=== PATIENT | male | born 1965 | race Caucasian/White ===

== ENCOUNTER 2017-03-06 15:01 | Emergency (ER) | payer OTHER ==
[~2017-03-06] VITALS: Ht 185.4 cm; Wt 117.0 kg
[~2017-03-06 15:01] MED LIST: ADVIL200 M1 PO; ALBUTEROL2.5 MG/3 M INH; ASPIR-TRIN325 MG PO; BACTRIM DS TAB1 EACH PO; BD ULTRA-FINE1 EAC3 MISC; BUDESONIDE0.5 MG/2 M INH; CARBAMAZEPINE200 M2 PO; CYCLOBENZAPRINE10 MG PO; DOXAZOSIN MESYLA4 MG PO; ESCITALOPRAM OX20 MG PO; FUROSEMIDE20 MG PO; HYDROCHLOROTHIA25 MG PO; LANTUS SOL100 UNIT/1 SUB-Q; LEVOTHYROXINE25 MCG PO; LORAZEPAM2 MG PO; LOSARTAN POTASS50 MG PO; METFORMIN HCL1000 MG PO; MINIPRESS5 MG PO; MUPIROCIN22 GM TOP; OMEPRAZOLE20 MG PO; PROMETHAZINE HC25 M1 PO; PROPRANOLOL HCL40 MG PO; TOPIRAMATE25 MG PO; VENTOLIN HFA18 GM INH; ZOFRAN ODT4 MG SL
[2017-03-06] MEDS ORDERED: METHYLPREDNISOLO4 M1 PO (16:24)
[2017-03-06] MEDS ORDERED: ZITHROMAX250 MG PO (16:24)
== END 2017-03-06 17:12 | disposition home or self-care (01) ==
LOC: ED 15:01
DX: J44.1 Chronic obstructive pulmonary disease with (acute) exacerbation (principal); E11.40 Type 2 diabetes mellitus with diabetic neuropathy, unspecified; E03.9 Hypothyroidism, unspecified; G40.909 Epilepsy, unspecified, not intractable, without status epilepticus; K21.9 Gastro-esophageal reflux disease without esophagitis; J45.901 Unspecified asthma with (acute) exacerbation; I10 Essential (primary) hypertension; Z87.891 Personal history of nicotine dependence; Z88.0 Allergy status to penicillin; Z88.5 Allergy status to narcotic agent; Z79.899 Other long term (current) drug therapy; Z79.4 Long term (current) use of insulin
CPT/HCPCS: 71010; 80048; 85025; 94640; 96374; 96375; 99283; J2060; J2930

== ENCOUNTER 2019-04-25 08:25 | Emergency (ER) | payer OTHER ==
[~2019-04-25] VITALS: Ht 185.4 cm; Wt 111.1 kg
--- OUTSIDE RECORDS SUMMARY | ~2019-04-25 | XMS | Encounter Summary ---
Demographics + + + | Address | [address] | | | [place] [address] | + + + | Home Phone | | + + + | Preferred Language | Unknown | + + + | Marital Status | Single | + + + | Amish Affiliation | BAP | + + + | Race | White | + + + | Ethnic Group | Not or | + + + Author + + + | Author | [facility] | + + + | Organization | [facility] | + + + | Address | Unknown | + + + | Phone | Unavailable | + + + Support + + + + + | Name | Relationship | Address | Phone | + + + + + | Margarito Owusu | ECON | [address] | | | | | [place] | | | | | [address] | | + + + + + Care Team Providers + +------+ + | Care Gold Leaf Gilder Name | Role | Phone | + +------+ + | Deidre Card | PCP | | + +------+ + Encounter Details +--------+ + + + + | Date | Type | Department | Care Team | Description | +--------+ + + + + | 02/28/ | Office | [facility] | Note, Outpatient | Progress Note | | 2001 | Visit-Trans | MEDICINE | Clinic | | | | cribed | | | | +--------+ + + + + Social History + +-------+ +--------+------+ | Tobacco Use | Types | Packs/Day | Years | Date | | | | | Used | | + +-------+ +--------+------+ | Never Assessed | | | | | + +-------+ +--------+------+ + + + | Sex Assigned at | Date Recorded | | | | + + + | Not on file | | + + + + + + + | Job Start Date | Occupation | Industry | + + + + | Not on file | Not on file | Not on file | + + + + + + + + | Travel History | Travel Start | Travel End | + + + + + + | No recent travel history available. | + + documented as of this encounter Progress Notes Interface, Newspaper Clipper In - 03/17/2006 1:00 AM PDTCLINIC DATE: 02/27/2002 PRECOCHLEAR IMPLANT EVALUATION SUBJECTIVE: Mr. Edgar Marquez was seen today for a precochlear implant evaluation. He was accompanied today by his mother. He was referred to us from Dr. Aamir Chan. Mr. 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 He has been unable to wear hearing aids due to the persistent otitis media with drainage bilaterally. The combination of the chronic otitis media and cholesteatomas have gradually eroded Mr. Marquez's hearing. Today's audiogram demonstrates no response in either ear at the output limits of the equipment. To assess Mr. Dorados candidacy for the cochlear implant, the HINT (hearing and noise test) was administered in the left ear only, right ear only, and binaural condition aided at 70 dB SPL. Mr. Marquez scored 0% in all conditions. These results indicate no residual hearing in either ear. Today's results do suggest that Mr. Marquez could benefit from a cochlear implant. Mr. Marquez and his mother, Vale Montano, were counseled regarding today's result and the devices available through [facility]. Mr. Marquez's medical evaluation is currently pending with Dr. Chan. Either ear meets candidacy criteria for the implant. Mr. Marquez was then given some information to take home regarding the devices and also the names of some cochlear implant recipients he may want to contact for further information. Mary Baker M.S., C.C.-A. Aamir Chan M.D. [place] / [id number] / [id number] / [id number] / [id number] Carleen, Newspaper Clipper In - 03/17/2006 1:00 AM PDTCLINIC DATE: 02/28/2002 OTOLARYNGOLOGY CLINIC Mr. Marquez is seen in followup following surgery for removal of cholesteatoma in the right ear. He is now a candidate for cochlear implant on the left ear. His right ear is still slightly moist; however, it was suctioned clean. There is no severe drainage. The left ear appears to be normal, and he is an excellent candidate for a cochlear implant. He is to be scheduled for this procedure. His CT appears to be normal. Aamir Chan M.D. [facility] / [id number] / [id number] / [id number] / Tdocumented in this encounter Plan of Treatment +--------+ + + + + | Date | Type | Specialty | Care Team | Description | +--------+ + + + + | 04/29/ | Diagnostic | Nut Steamer | Marce Meyer | | | 2019 | Visit | | Finn, Eve [address] | | | | | | [address] | | | | | | [place], [place] | | | | | | [address] | | +--------+ + + + + documented as of this encounter Visit Diagnoses Not on filedocumented in this encounter"
--- OUTSIDE RECORDS SUMMARY | ~2019-04-25 | XMS | Encounter Summary ---
Demographics + + + | Address | [address] | | | [place] [address] | + + + | Home Phone | | + + + | Preferred Language | Unknown | + + + | Marital Status | Single | + + + | Catholic Affiliation | BAP | + + + | Race | White | + + + | Ethnic Group | Not or | + + + Author + + + | Author | [facility] | + + + | Organization | [facility] | + + + | Address | Unknown | + + + | Phone | Unavailable | + + + Support + + + + + | Name | Relationship | Address | Phone | + + + + + | Margarito Owusu | ECON | [address] | | | | | [place] | | | | | [address] | | + + + + + Care Team Providers + +------+ + | Care Timber Mill Worker Name | Role | Phone | + +------+ + | Maurice Zelaya MD | PCP | | + +------+ + Encounter Details +--------+ + + + + | Date | Type | Department | Care Team | Description | +--------+ + + + + | 11/22/ | Ancillary | Registration [id number] | Dustin | | | 2004 | Registratio | [address] | Aamir [address] | | | | [address] | [address] Mailcode: [id number] | [address] | | | | | [place], [place] | [place] [address] | | | | | [address] | | | | | | [phone] | | | +--------+ + + + [...] + + documented as of this encounter Plan of Treatment +--------+ + + + + | Date | Type | Specialty | Care Team | Description | +--------+ + + + + | 04/29/ | Diagnostic | Fish Fryer | Marce Meyer | | | 2019 | Visit | | Eve Briseno [address] | | | | | | [address] | | | | | | [place], [place] | | | | | | [address] | | +--------+ + + + + documented as of this encounter Visit Diagnoses Not on filedocumented in this encounter"
--- OUTSIDE RECORDS SUMMARY | ~2019-04-25 | XMS | Encounter Summary ---
Demographics + + + | Address | [address] | | | [place] [address] | + + + | Home Phone | | + + + | Preferred Language | Unknown | + + + | Marital Status | Single | + + + | Mandaeism Affiliation | BAP | + + + | Race | White | + + + | Ethnic Group | Not or | + + + Author + + + | Author | [facility] | + + + | Organization | [facility] | + + + | Address | Unknown | + + + | Phone | Unavailable | + + + Support + + + + + | Name | Relationship | Address | Phone | + + + + + | Margarito Owusu | ECON | [address] | | | | | [place] | | | | | [address] | | + + + + + Care Team Providers + +------+ + | Care Parts Counterman Name | Role | Phone | + +------+ + | Jaison Chávez MD | PCP | | + +------+ + Encounter Details +--------+ + + + + | Date | Type | Department | Care Team | Description | +--------+ + + + + | 08/09/ | Results | NON-[facility] | Ashley Omalley MD | | | 2008 | Only | Department | Tonya Walker | | | | | | [facility] [address] | | | | | | [address] | | | | | | [place] [address] | | | | | | [phone] | | | | | | | | +--------+ + + + + Social History + + + +--------+------+ | Tobacco Use | Types | Packs/Day | Years | Date | | | | | Used | | + + + +--------+------+ | Current Every Day | Cigarettes | 2.5 | 34 | | | Smoker | | | | | + + + +--------+------+ + + | Comments: Pt smokes 2.5 packs of cigarettes per day x 2-3 years. Started smoking at age | | 8. | + + + + + + + | Alcohol Use | Drinks/Week | oz/Week | Comments | + + + + + | Yes | 1-2 Standard | 0.5 - 1.0 | Pt buys case of beer | | | drinks or equivalent | | with paycheck at | | | | | start of | | | | | month--drinks that | | | | | and none for rest of | | | | | month | + + + + + + + + | Sex Assigned at [...] + + | 04/29/ | Diagnostic | Car Shunter | Marce Meyer | | | 2019 | Visit | | Eve Briseno [address] | | | | | | [address] | | | | | | [place], [place] | | | | | | [address] | | +--------+ + + + + documented as of this encounter Procedures + +--------+ + + + | Procedure Name | Priori | Date/Time | Associated Diagnosis | Comments | | | ty | | | | + +--------+ + + + | CAMILLE CERVANTESPOC | Routin | 08/09/2008 | | Results for this | | | e | 11:50 AM | | procedure are in the | | | | PST | | results section. | + +--------+ + + + documented in this encounter Results CAMILLE CERVANTESPOC (08/09/2008 11:50 AM PST) + + + + + -+ | Component | Value | Ref Range | Performed | Pathologist | | | | | At | Signature | + + + + + -+ | BLOOD | 226 (H)Comment: Meter | 70 - 110 MG/DL | [facility] | | | GLUCOSE, | ID: [id number]: | | OF CARE | | | POC | [id number] [place] | | TESTING | | | |Extracorporeal Circulation Specialist: [id number] [place] | | | | | | | | | | + + + + + -+ + + | Specimen | + + | | + + + +---------+ + + | Performing | Address | City/State/Zipcode | Phone Number | | Organization | | | | + +---------+ + + | [facility] | | | | | TESTING | | | | + +---------+ + + documented in this encounter Visit Diagnoses Not on filedocumented in this encounter"
--- OUTSIDE RECORDS SUMMARY | ~2019-04-25 | XMS | Encounter Summary ---
Demographics + + + | Address | [address] | | | [place] [address] | + + + | Home Phone | | + + + | Preferred Language | Unknown | + + + | Marital Status | Single | + + + | Yarsanism Affiliation | BAP | + + + | Race | White | + + + | Ethnic Group | Not or | + + + Author + + + | Author | [facility] | + + + | Organization | [facility] | + + + | Address | Unknown | + + + | Phone | Unavailable | + + + Support + + + + + | Name | Relationship | Address | Phone | + + + + + | Margarito Owusu | ECON | [address] | | | | | [place] | | | | | [address] | | + + + + + Care Team Providers + +------+ + | Care Insurance Claims Processor Name | Role | Phone | + +------+ + | Jaison Chávez MD | PCP | | + +------+ + Encounter Details +--------+ + + + + | Date | Type | Department | Care Team | Description | +--------+ + + + + | 09/13/ | Documentati | Otolaryngology | Mahnaz Chávez, | | | 2015 | on | Audiology Services | [facility] [address] | | | | | at [facility] [address] | [address] | | | | | [address] | [place], [place] | | | | | Mailcode: PV01 | [address] | | | | | [facility] | | | | | | [place], [place] | | | | | | [address] | | | | | | [phone] | | | +--------+ + + + + Social History + + + +--------+ + | Tobacco Use | Types | Packs/Day | Years | Date | | | | | Used | | + + + +--------+ + | Former Smoker | Cigarettes | 3 | 20 | Quit: 06/13/2013 | + + + +--------+ + + +---+---+---+ | Smokeless Tobacco: | | | | | Never Used | | | | + +---+---+---+ + + + + + | Alcohol [...] + + | 04/29/ | Diagnostic | Shower Screen Installer | Marce Meyer | | | 2018 | Visit | | Eve Briseno [address] | | | | | | [address] | | | | | | [place], [place] | | | | | | [address] | | +--------+ + + + + documented as of this encounter Visit Diagnoses Not on filedocumented in this encounter"
--- OUTSIDE RECORDS SUMMARY | ~2019-04-25 | XMS | Encounter Summary ---
Demographics + + + | Address | [address] | | | [place] [address] | + + + | Home Phone | | + + + | Preferred Language | Unknown | + + + | Marital Status | Single | + + + | Sabianist Affiliation | BAP | + + + | Race | White | + + + | Ethnic Group | Not or | + + + Author + + + | Author | [facility] | + + + | Organization | [facility] | + + + | Address | Unknown | + + + | Phone | Unavailable | + + + Support + + + + + | Name | Relationship | Address | Phone | + + + + + | Margarito Owusu | ECON | [address] | | | | | [place] | | | | | [address] | | + + + + + Care Team Providers + +------+ + | Care Senior Pastor Name | Role | Phone | + +------+ + | Ender Wagoner MD | PCP | | + +------+ + Reason for Visit + + + | Reason | Comments | + + + | Hearing loss | Processor Mapped by Sruthi & Grisel back to patient | + + + Encounter Details +--------+ + + + + | Date | Type | Department | Care Team | Description | +--------+ + + + + | 07/01/ | Documentati | Otolaryngology | Pascual Pace, | Hearing loss | | 2010 | on | Cochlear Services | STEPHANIE Sewell [address] | (Processor Mapped by | | | | [address] | [address] | Sruthi & Shipped back | | | | Toya Spencer Mailcode: | [place], [place] | to patient) | | | | [address] [facility] | [address] | | | | | [address] | | | | | | [place] [address] | | | | | | [phone] | | | +--------+ + + + + Social History + + + +--------+------+ | Tobacco Use | Types | Packs/Day | Years | Date | | | | | Used | | + + + +--------+------+ | Current Every Day | Cigarettes | 3 | 20 | | | Smoker | | | | | + + + +--------+------+ + +---+---+---+ | Smokeless Tobacco: | | | | | Never Used | | | | + +---+---+---+ + + | Comments: Pt smokes 3 packs of cigarettes per day x 20 years. Started smoking at age 8. | + + + + + [...] + + | 04/29/ | Diagnostic | Customer Management Specialist | Marce Meyer | | | 2019 | Visit | | Finn, Eve [address] | | | | | | [address] | | | | | | [place], [place] | | | | | | [address] | | +--------+ + + + + documented as of this encounter Visit Diagnoses Not on filedocumented in this encounter"
--- OUTSIDE RECORDS SUMMARY | ~2019-04-25 | XMS | Encounter Summary ---
Demographics + + + | Address | [address] | | | [place] [address] | + + + | Home Phone | | + + + | Preferred Language | Unknown | + + + | Marital Status | Single | + + + | Advent Affiliation | BAP | + + + | Race | White | + + + | Ethnic Group | Not or | + + + Author + + + | Author | [facility] | + + + | Organization | [facility] | + + + | Address | Unknown | + + + | Phone | Unavailable | + + + Support + + + + + | Name | Relationship | Address | Phone | + + + + + | Margarito Owusu | ECON | [address] | | | | | [place] | | | | | [address] | | + + + + + Care Team Providers + +------+ + | Care Classified Ad Taker Name | Role | Phone | + +------+ + PCP | Unavailable | + +------+ + Encounter Details +--------+ + + + + | Date | Type | Department | Care Team | Description | +--------+ + + + + | 04/08/ | Results | Otolaryngology | Dustin, | | | 2003 | Only | Otology Services at | Aamir [address] | | | | | [facility] [address] | [address] | | | | | [address] | [place] [address] | | | | | Mailcode: PV01 | | | | | | [facility] | | | | | | [place], [place] | | | | | | [address] | | | | | | [phone] | | | +--------+ + + + [...] + + | 04/29/ | Diagnostic | Rubber Engraver | Marce Meyer | | | 2019 | Visit | | Eve Briseno [address] | | | | | | [address] | | | | | | [place], [place] | | | | | | [address] | | +--------+ + + + + documented as of this encounter Procedures + +--------+ + + + | Procedure Name | Priori | Date/Time | Associated Diagnosis | Comments | | | ty | | | | + +--------+ + + + | CBC ONLY | Routin | 04/08/2004 | | Results for this | | | e | 4:30 PM | | procedure are in the | | | | PDT | | results section. | + +--------+ + + + documented in this encounter Results CBC ONLY WITH PLATELET (04/08/2004 4:30 PM PDT) + + + + + + | Component | Value | Ref Range | Performed | Pathologist | | | | | At | Signature | + + + + + + | WHITE CELL | 15.0 (H) | 4.4 - 11.0 K/cu | [facility] | | | COUNT | | mm | DEPARTMENT | | | | | | OF | | | | | | PATHOLOGY | | + + + + + + | RED CELL | 5.27 | 4.20 - 5.90 | [facility] | | | COUNT | | M/cu mm | DEPARTMENT | | | | | | OF | | | | | | PATHOLOGY | | + + + + + + | HEMOGLOBIN | 17.0 | 13.0 - 17.5 | [facility] | | | | | g/dL | DEPARTMENT | | | | | | OF | | | | | | PATHOLOGY | | + + + + + + | HEMATOCRIT | 48.6 | 38.0 - 50.4 % | [facility] | | | | | | DEPARTMENT | | | | | | OF | | | | | | PATHOLOGY | | + + + + + + | MCV | 92.1 | 80.0 - 96.0 fL | [facility] | | | | | | DEPARTMENT | | | | | | OF | | | | | | PATHOLOGY | | + + + + + + | MCH | 32.2 | 28.5 - 32.3 pg | [facility] | | | | | | DEPARTMENT | | | | | | OF | | | | | | PATHOLOGY | | + + + + + + | MCHC | 35.0 | 33.4 - 35.5 | [facility] | | | | | g/dL | DEPARTMENT | | | | | | OF | | | | | | PATHOLOGY | | + + + + + + | RDW | 14.0 | 11.5 - 15.0 % | [facility] | | | | | | DEPARTMENT | | | | | | OF | | | | | | PATHOLOGY | | + + + + + + | PLATELET | 227 | 150 - 400 K/cu | [facility] | | | COUNT | | mm | DEPARTMENT | | | | | | OF | | | | | | PATHOLOGY | | + + + + + + | MPV | 7.8 | 7.4 - 10.4 fL | [facility] | | | | | | DEPARTMENT | | | | | | OF | | | | | | PATHOLOGY | | + + + + + + + + | Specimen | + + | | + + + + + + + | Performing | Address | City/State/Zipcode | Phone Number | | Organization | | | | + + + + + | [facility] DEPARTMENT OF | [address] | [place] [address] | | | PATHOLOGY | [address] | | | + + + + + | [facility] | [address] | [place] [address] | | | PATHOLOGY | [address] | | | + + + + + documented in this encounter Visit Diagnoses Not on filedocumented in this encounter"
--- OUTSIDE RECORDS SUMMARY | ~2019-04-25 | XMS | Encounter Summary ---
Demographics + + + | Address | [address] | | | [place] [address] | + + + | Home Phone | | + + + | Preferred Language | Unknown | + + + | Marital Status | Single | + + + | Samaritan Affiliation | BAP | + + + | Race | White | + + + | Ethnic Group | Not or | + + + Author + + + | Author | [facility] | + + + | Organization | [facility] | + + + | Address | Unknown | + + + | Phone | Unavailable | + + + Support + + + + + | Name | Relationship | Address | Phone | + + + + + | Margarito Owusu | ECON | [address] | | | | | [place] | | | | | [address] | | + + + + + Care Team Providers + +------+ + | Care Astro Technician Name | Role | Phone | + +------+ + | Sergo Leigh MD | PCP | Unavailable | + +------+ + Reason for Visit + + + | Reason | Comments | + + + | Ear problem | here for ear check and CT results | + + + AUTH/CERT +--------+--------+ + + + + | Status | Reason | Specialty | Diagnoses / | Referred By | Referred To | | | | | Procedures | Contact | Contact | +--------+--------+ + + + + | Closed | | Adult Acute | | | [facility] | | | | Care | | | Medicine | | | | | | | [address] | | | | | | | [address] | | | | | | | [address] [facility] | | | | | | | Hospital | | | | | | | [place], [place] | | | | | | | [address] | | | | | | | Phone: | | | | | | | [phone] | | | | | | | Fax: | | | | | | | [phone] | +--------+--------+ + + + + Encounter Details +--------+---------+ + + + | Date | Type | Department | Care Team | Description | +--------+---------+ + + + | 12/03/ | Office | Otolaryngology | Jose Franco, | Other acute otitis | | 2010 | Visit | Otology Services at | MD [address] | externa; Other | | | | [facility] [address] | [facility] [address] | chronic otitis | | | | [address] | [place] [address] | externa | | | | Mailcode: CHALO | [phone] | | | | | Physiciankary Perez | (Fax) | | | | | [place], [place] | | | | | | [address] | | | | | | [phone] | | | +--------+---------+ + + + Social History + + [...] | drinks or equivalent | | with madelyn at | | | | | start [...] documented as of this encounter Progress Notes Jose Franco MD - 12/03/2010 3:55 PM PDTOtology Follow Up ID: Edgar Marquez returns for follow up of bilateral otitis externa S: Mr Marquez has been feeling much worse since he was last seen in clinic. He did obtain the prescribed cyloxan and dexamethasone drops He started these, but after 24 hours develo ped significant nausea and vomiting and discontinued the drops. He has continued to have bi lateral foul smelling ear drainage, along with nausea, vomiting, and subjective fevers. He has not been taking any medications recently. Not tolerating PO intake, states he is also h aving difficulty urinating. O: A&OX3, appears quite sick, nauseated and retching. No depression or agitation, speech fluent, zoltan, no nystagmus Face: no lesions Neck: no nodes Parotid thyroid wnl Oc op : no lesions Resp wheezing and moderately tachypneic Neuro non focal , mtr/sensory non focal Ears: Left CI in place Examined by otomicroscopy: Left: EAC with purulent, foul-smelling drainage.. TM with intact landmarks, no perforati on Right: EAC with purulent, foul-smelling drainage.. TM with intact landmarks, no perforat ion Axial images were obtained through the temporal bones and coronal reconstructions were created and compared to the CT obtained 02/28/02. Since the prior study, the patient has undergone a left canal wall up mastoidectomy and placement of a cochlear implant. The electrode coils in the mastoidectomy bowl and extends to a cochleostomy in the basal turn of the cochlea almost to the apical turn. The mastoid air cells and middle ear are opacified in the external auditory canal is lined by edematous appearing soft tissue. Without a prior study obtained after placement of a cochlear implant, it is not possible to determine if there is bone erosion, and artifact from the cochlear implant limits evaluation of the tegmen tympani.. The patient is status post right mastoidectomy, likely canal wall up. The middle ear is opacified to the ossicles are grossly intact. Soft tissue lines the mastoidectomy bowl. The appearance is similar to that of the prior study. The patient is status post bilateral uncinectomy and internal ethmoidectomy and sphenoid ostiotomy and partial middle turbinate resection. The paranasal sinuses are incompletely evaluated here. Impression: Interval mastoidectomy and cochleostomy on the left for placement of a cochlear implant. Opacification of the left mastoidectomy bowl, mastoid air cells, and middle ear. Probable external auditory canal inflammation. Cultures from previous visit growing Pseudomonas A/P: 45y M with bilateral otitis externa, left mastoid opacification, nausea, and dehydrati on. Also appears to have exacerbation of COPD/asthma. He has failed outpatient management and is much worse today. Given his inability to tolerate PO intake he merits admission for more aggressive treatment. Discussed with [facility] team and they have agreed to to accept admiss ion due to multiple comorbidities. Recommend both topcial ciprodex otic drops and systemic antibiotics along with rehydration and treatment of his COPD. Will follow along while in [facility]. -Return to clinic as needed for problems or concerns. Aruna Narvaez - 12/03/2010 3:08 PM PDTAdditional staff support provided to the patient during this encounte r included: Assisted patient in exam room Getting into exam chair from wheelchair. documented in this enc ounter Plan of Treatment +--------+ + + + + | Date | Type | Specialty | Care Team | Description | +--------+ + + + + | 04/29/ | Diagnostic | Supervisor Production | Marce Meyer | | | 2018 | Visit | | K, AuD [address] | | | | | | [address] | | | | | | [place], [place] | | | | | | [address] | | +--------+ + + + + documented as of this encounter Procedures + +--------+ + + + | Procedure Name | Priori | Date/Time | Associated Diagnosis | Comments | | | ty | | | | + +--------+ + + + | ND EAR MICROSCOPY | Routin | 12/30/2010 | Other acute otitis | | | EXAMINATION | e | 8:29 AM | externa Other | | | | | PDT | chronic otitis | | | | | | externa | | + +--------+ + + + | ORDERS OTHER | | 11/26/2009 | | Results for this | | | | 12:00 AM | | procedure are in the | | | | PDT | | results section. | + +--------+ + + + documented in this encounter Results ORDERS OTHER (11/26/2009 12:00 AM PDT) + + + | Narrative | Performed At | + + + | | | + + + + + | Procedure Note | + + | Tania Martins - 11/26/2009 12:00 AM PDT | | | + + documented in this encounter Visit Diagnoses + + | Diagnosis | + + | Other acute otitis externa | + + | Other chronic otitis externa | + + documented in this encounter"
--- OUTSIDE RECORDS SUMMARY | ~2019-04-25 | XMS | Encounter Summary ---
Demographics + + + | Address | [address] | | | [place] [address] | + + + | Home Phone | | + + + | Preferred Language | Unknown | + + + | Marital Status | Single | + + + | Hinduism Affiliation | BAP | + + + | Race | White | + + + | Ethnic Group | Not or | + + + Author + + + | Author | [facility] | + + + | Organization | [facility] | + + + | Address | Unknown | + + + | Phone | Unavailable | + + + Support + + + + + | Name | Relationship | Address | Phone | + + + + + | Margarito Owusu | ECON | [address] | | | | | [place] | | | | | [phone] | | + + + + + Care Team Providers + +------+ + | Care Product Marketing Analyst Name | Role | Phone | + +------+ + | Cee Triana MD | PCP | Unavailable | + +------+ + Reason for Visit + + + | Reason | Comments | + + + | Pre-operative | VENTRAL HERNIA REPAIR on 08/19/2012 at 11:15 AM by Ayana Jovel | | evaluation | MD Luke at [facility] | + + + Encounter Details +--------+---------+ + + + | Date | Type | Department | Care Team | Description | +--------+---------+ + + + | 08/13/ | Office | Preoperative | Juliana Thomas | Pre-operative | | 2012 | Visit | Medicine Clinic at | MD Kira | examination (Primary | | | | [facility] 4th Floor Day | | Dx); Ventral | | | | Stay [address] | | hernia; Illiterate; | | | | [address] | | Other specified | | | | Mailcode: [id number] | | pre-operative | | | | [facility] | | examination; Heart | | | | [address], [place] | | attack (HCC); | | | | [phone] | | Chronic airway | | | | [phone] | | obstruction, not | | | | | | elsewhere classified | +--------+---------+ + + + Anesthesia Record + + + + + | Procedure Name | Responsible | Anesthesia Start | Anesthesia Stop Time | | | Anesthesiologist | Time | | + + + + + | OPEN VENTRAL HERNIA | Nanette Maloney MD | 08/19/12 1112 | 08/19/12 1521 | | REPAIR WITH MESH | | | | | EXCISIOn OF SCAR, | | | | | LYSIS OF ADHESIONS | | | | | (N/A Abdomen) | | | | + + + + + +----+---+ + + | Da | T | Event | Comment | | te | i | | | | | m | | | | | e | | | +----+---+ + + | 01 | 0 | Pt. Check | Prior to anesthesia start, pt. Identified, examined, chart | | /2 | 9 | | reviewed, PARQ held, anesthetic plan made or approved by | | 4/ | 5 | | attending anesthesiologist. NPO status confirmed as appropriate | | 20 | 4 | | for procedure Preoperative evaluation: unchanged | | 13 | | | | +----+---+ + + | | 1 | Preprocedur | Pt ID confirmed, informed consent obtained, insertion site | | | 1 | e Checklist | marked, equipment available | | | 0 | | | | | 9 | | | +----+---+ + + | | 1 | Eq Check | Anesthesia machine checked Equipment verified | | | 1 | | | | | 1 | | | | | 0 | | | +----+---+ + + | | 1 | | | | | 1 | | | | | 1 | | | | | 2 | | | +----+---+ + + | | 1 | An Start | | | | 1 | | | | | 1 | | | | | 2 | | | +----+---+ + + | | 1 | An Start | | | | 1 | Data | | | | 2 | | | | | 2 | | | +----+---+ + + | | 1 | Vitals | Monitors applied Vital signs checked Patient ready for anesthesia | | | 1 | Checked | | | | 2 | | | | | 3 | | | +----+---+ + + | | 1 | Std. Airway | | | | 1 | Mgt. | | | | 2 | | | | | 9 | | | +----+---+ + + | | 1 | Ready | | | | 1 | | | | | 3 | | | | | 4 | | | +----+---+ + + | | 1 | Abx | | | | 1 | Administere | | | | 4 | d | | | | 2 | | | +----+---+ + + | | 1 | Timeout | | | | 1 | | | | | 4 | | | | | 7 | | | +----+---+ + + | | 1 | Incision | | | | 1 | | | | | 4 | | | | | 8 | | | +----+---+ + + | | 1 | Quick Note | Yoselin Abebe CRNA for 30 minute break. | | | 2 | | | | | 0 | | | | | 7 | | | +----+---+ + + | | 1 | Quick Note | CBG 114 | | | 2 | | | | | 2 | | | | | 0 | | | +----+---+ + + | | 1 | Quick Note | CBG 120 | | | 3 | | | | | 2 | | | | | 8 | | | +----+---+ + + | | 1 | Surgery end | | | | 5 | | | | | 0 | | | | | 1 | | | +----+---+ + + | | 1 | An Extubate | Neuromuscular function Intact. Pharynx suctioned. Patient obeys | | | 5 | | commands. Adequate pulmonary mechanics. | | | 1 | | | | | 4 | | | +----+---+ + + | | 1 | an stop | | | | 5 | data | | | | 1 | | | | | 7 | | | +----+---+ + + | | 1 | Anesthesia | | | | 5 | End | | | | 2 | | | | | 1 | | | +----+---+ + + +------+ | Meds | +------+ + + + No medications | on file. | + + + + + | No agents on file. | + + + + | No blood administrations on file. | + + +--------+ + + + | Type | Details | Placement | Removal | +--------+ + + + | RETIRE | 08/19/12; 1030; 08/20/12; 1120; | 08/19/12 1030 by | 08/20/12 1120 by | | D - | No; 20; Right; Hand; None; | Tobias Dumas, | Rossi Mccloud RN | | Periph | Positive | RN | | | eral | | | | | Line | | | | +--------+ + + + | RETIRE | 08/19/12; 1135; 08/21/12; 1400; | 08/19/12 1135 by | 08/21/12 1400 by | | D - | Shana; 16FR | Damian Rivera RN | Rossi Mccloud RN | | Urinar | | | | | y Cath | | | | | | | | | | Placem | | | | | ent | | | | | (Humaira | | | | | & Cath | | | | | Care | | | | | Daily | | | | | and Q | | | | | BM) | | | | +--------+ + + + | RETIRE | Abdominal Incision; midline; | 08/19/12 1201 by | 05/14/17 1622 by | | D - | abdomen; 05/14/17 (Automatic | | Discontinued After | | Incisi | cleanup per RA 3006--contact | | Discharge | | on | admin for questions.); 1622 | | | | | (Automatic cleanup per RA | | | | | 3006--contact admin for | | | | | questions.) | | | +--------+ + + + | RETIRE | 08/19/12; 1441; 05/14/17 | 08/19/12 1441 by | 05/14/17 1622 by | | D - | (Automatic cleanup per RA | Damian Rivera RN | Discontinued After | | Drains | 3006--contact admin for | | Discharge | | | questions.); 1622 (Automatic | | | | (wound | cleanup per RA 3006--contact | | | | s/surg | admin for questions.); 19fr; | | | | ical) | Oscar; Lower, Midline | | | +--------+ + + + documented in this encounter Social History + + + +--------+ + | Tobacco Use | Types | Packs/Day | Years | Date | | | | | Used | | + + + +--------+ + | Former Smoker | Cigarettes | 3 | 20 | Quit: 06/20/2012 | + + + +--------+ + + [...] + + documented as of this encounter Last Filed Vital Signs + + + + + | Vital Sign | Reading | Time Taken | Comments | + + + + + | Blood Pressure | 108/63 | 08/13/2012 1:50 PM | | | | | PST | | + + + + + | Pulse | 95 | 08/13/2012 1:50 PM | | | | | PST | | + + + + + | Temperature | 36 C (96.8 F) | 08/13/2012 1:50 PM | | | | | PST | | + + + + + | Respiratory Rate | 14 | 08/13/2012 1:50 PM | | | | | PST | | + + + + + | Oxygen Saturation | 97% | 08/13/2012 1:50 PM | | | | | PST | | + + + + + | Inhaled Oxygen | - | - | | | Concentration | | | | + + + + + | Weight | 120.7 kg (266 lb) | 08/13/2012 1:50 PM | | | | | PST | | + + + + + | Height | 182.9 cm (6') | 08/13/2012 1:50 PM | neck 47 cm | | | | PST | | + + + + + | Body Mass Index | 36.08 | 08/13/2012 1:50 PM | | | | | PST | | + + + + + documented in this encounter Patient Instructions Patient Instructions Juliana Thomas MD - 08/13/2012 1:40 PM [facility] PREOPERATIVE INSTRUCTIONS Empty stomach before surgery! On the day BEFORE your surgery, drink plenty of fluids and stay well hydrated Do not eat or drink ANYTHING after midnight the night before surgery, or 8 hours prior t o surgery. This includes water, coffee, candy, mints, gum. Follow any additional instructions from your surgeon Medications Instructions TAKE the following medications with a sip of water on the morning of surgery: Dexamethasone ear drops Tegretol Acetaminophen if needed Advair Gabapentin Atrovent Levothyroxine Lorazepam if needed Latuda Mometasone Omeprazole Prazosin Risperidone Tiotropium Tramadol if needed Do NOT take the following medications on the morning of surgery: Docusate Furosemide Hydrochlorothiazide Lisinopril Metformin STOP taking these medications one week before surgery: Aspirin Ibuprofen Unless otherwise directed by your surgeon, do not take any Aspirin, vitamin E or non-austin roidal anti-inflammatory (NSAIDs i.e. Advil, Aleve, Ibuprofen) or herbal supplements 7-14 da ys prior to your surgery. These drugs may interfere with normal blood clotting and may cause excessive bleeding and bruising during or after the surgery. If you need a pain medication for general purposes, use Tylenol as directed. OK to take it even on the morning of surgery, if needed. If you are in doubt about any medications that you are taking, please contact our office . Skin preparation to help avoid surgical site infections HIBICLENS GUIDE TO GENERAL SKIN CLEANSING AT HOME BEFORE SURGERY Before you bathe or shower: Read the instructions given to you by your healthcare practitioner, and begin your genera l skin cleansing protocol as directed. Carefully read all directions on the product label. Hibiclens is not to be used on the head or face, keep out of the eyes, ears and mouth. Hibiclens is not to be used in the genital area. Hibiclens should not be used if you are allergic to chlorhexidine gluconate or any other ingredients in this preparation. *See Hibiclens label for full product information and precautions. When you bathe or shower the night before your surgery: If you plan to wash your hair, do so with your regular shampoo. Then rinse hair and body thoroughly to remove any shampoo residue. Wash your face with your regular soap or water only. Thoroughly rinse your body with warm water from neck down. Use Hibiclens as you would any other liquid soap. Please do not put the Hibiclens on a wa sh cloth, apply directly to the skin and wash gently. Apply the minimum amount of Hibiclens necessary to cover the skin. Leave the Hibiclens on your skin for 1 minute, then rinse off. Rinse thoroughly with warm water. Do not use your regular soap after applying and rinsing Hibiclens. When using Hibiclens for a second day in a row (morning of surgery, as soon as you wake up) : Shower/bathe again using Hibiclens in the same method as described above. Do not apply any lotions, deodorants, powders or perfumes to the body areas that have been cleaned with Hibiclens. Other Important Guidelines Do not shave the surgical area Do not smoke, drink alcohol or use recreational drugs for 24 hours before your surgery Watch for any change in your health condition. Let your surgeon know right away if you do not feel well. Do not wear makeup, perfume, lotions, deodorant, powder or hairspray. Do not wear any jewelry to the hospital. Wear loose, comfortable clothing. Leave all your valuables at home. Allow enough travel time so you re not late for your check in for surgery. Take a bath or shower and remember to shampoo your hair using your usual hair product bef ore your arrival at the hospital. Please remember to brush your teeth the night before and the morning of your procedure. Preventing post op complications while you are in the hospital Use an incentive spirometer or peep breathe to keep your lungs working properly an d to help prevent respiratory complications. It helps you take long, deep breaths. Use it at least once every hour while you are awake. Leg and feet exercises will maintain good circulation and help prevent blood clots in yo ur legs. Sometimes your doctor will order air compression stockings. Compressed air helps the circulation in your legs. Walking and moving will help stimulate normal circulation and deep breathing. After you r surgery, your nurse may ask you to sit, stand or walk. Surgery Check in Locations Day Stay Unit [facility], fourth floor Room [address] [facility] Day Stay [facility], fourth floor [facility], sixth floor Surgery Check in Time: The Preoperative Medicine Clinic is not in the position to give you accurate information regarding surgical check in time. We refer you back to your surgical office regarding this important information. Going Home Your surgical team will decide when you are medically ready to go home. If you are released to go home on the same day as your procedure/surgery please note the following: You will not be able to drive. You will be required to have a competent person drive you or accompany you by taxi or pu blic transportation on the day of discharge. It is also required that you have a competent person assist you and look after you on th e first night after you have undergone regional blocks (72 hours for patients going home wit h regional block pump), deep sedation, and/or general anesthesia. If you stayed in the hospital after surgery, please arrange for your ride to come for yo u around 9AM on the day your doctor says you can go home. Check out time is 11AM. If you have questions or concerns after you go home, call your doctor s office. If it is after office hours, call the [facility] heading machine operator at [phone] and ask them to page him or h er. Preparing For Your Surgery Video -- 7 minutes of instructions! If you have access to the Internet and would like to review our instructional video about g etting ready for your procedure day, please follow these directions: Access the [facility] website [email or web address] --> POPULAR RESOURCES --> Patient Guide --> Preparing for your Visit or Surgery --> "Preparing for Your Surgery" video link documented in this encounter Progress Notes Sonia Nguyen MA - 08/13/2012 2:20 PM PST Venipuncture performed in clinic, blood sample obtained from Right antecubital site Hemoglo bin A1C POCT performed during clinic visit. Blood sample obtained from venipuncture performe d to obtain other lab tests. Juliana Townsend MD - 08/13/2012 1:40 PM PST PREOPERATIVE CONSULT NOTE Consulting Provider: JULIANA THOMAS MD Referring Physician: Dr. Butler Primary Care Provider: Cee Triana MD Reason for Consult: Preoperative evaluation and risk assessment Proposed Procedure/Date: VENTRAL HERNIA REPAIR on 08/19/2012 at 11:15 AM by Ayana Butler MD at [facility] HISTORY OF PRESENT ILLNESS: Edgar Marquez is a 46 y.o. male here for preoperative ev aluation for above procedure. Pt has dx of recurrent ventral hernia characterized by abdominal pain. He has had multiple prior abdominal surgeries and ventral hernia repairs, most recently in 2008. His current sym ptoms have been present since shortly after his last surgery. Symptoms are better with pain medications and worse if he becomes constipated. His medical history includes: MD in approximately 2007 per patient when he presented to [facility] wi th chest pain. He says that no catheterization was done. He denies any recurrence of chest p ain since that event or history of CHF. Stress echo today (results below). Contacted [facility] bu t no records other than prior EKG available. He does not have a ground host/hostess. 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 Diabetes mellitus type 2 well controlled on metformin Tobacco use (quit 5 weeks ago) and medical marijuana use (smokes) Seizure disorder. On tegretol and last report of seizure was one week ago. He reports t hat his seizures are very infrequent, once every 2 two and this recent one he thinks was bro ught on by stress. The event was not witnessed. Significant psychiatric history with PTSD, bipolar disorder, antisocial personality diso rder, anxiety. He lives in a group foster home. He reports that he does not read or write. COPD on bronchodilators with moderate obstruction by PFTs in 11/2011. S/p cochlear implant MRSA wound infection. Recent nasal swab for MRSA was negative. SUSAN on CPAP He has no hx nor symptoms of CHF, CVA, CKD or DM (treated with insulin). Functional capaci ty is Low ROS: 12 system ROS Preoperative Patient Questionnaire was reviewed with the patient. Pert inent positives are noted in HPI and PMHX. Document will be scanned in [facility]. Pulmonary: Within Defined Limits except as noted below cough recent no URI no shortness of breath no wheezing COPD moderate (chronic bronchodilator used) Dx of sleep apnea Uses BiPap/CPAP Cardiovascular: Within Defined Limits except as noted below Functional Capacity: Low - PND CAD Cad Sx: past MD Last MD: > 1 year no CHF hypertension well controlled no pacemaker GI/Hepatic: Within Defined Limits except as noted below GERD Control: Well controlled No li arthur disease : Within Defined Limits except as noted below Endo: Within Defined Limits except as noted below Diabetes: type 2, well controlled oral hy poglymics 151-200 Neurological: Sign/Sx (Left chronic sciatic impingement with numbness and paresis of left l eg) hearing loss tremors weakness Treatments: Treated w/medications and Treated w/counseling seizures (seziure every 2 years; last seizure was 08/08/12) Type: Last episode: < 1 week ago Frequency: infrequent no HX CORTICOSTEROID psychiatric problem bipolar disorder and depress ion no dementia pain Current pain level: 10 Pre-existing neuropathy Chronic pain > 6 months In chronic pain: Yes MS: Within Defined Limits except as noted below arthritis Heme/Onc: Within Defined Limits except as noted below Pt. has: no active bleeding no Bleedi ng diathesis / thrombotic bleeding Previous Transfusions: transfusion hx Hx:Unknown Malignan cy: no cancer, Location: Metastasis: Skin: open wounds or sores noted (abrasions on left leg) Hx of MRSA/VRE/Active skin infecti on Current Medication List Name Sig ACETAMINOPHEN 500 MG TABLET Take 1,000 mg by mouth as needed. ASPIRIN 81 MG TABLET Take 1 Tab by mouth once daily. TUMS 500 ORAL Take by mouth. CARBAMAZEPINE 200 MG TABLET Take 200 mg by mouth two times daily. CYCLOBENZAPRINE 10 MG TABLET Take 10 mg by mouth three times daily as needed. Do not use lo nger than 2-3 weeks. DEXAMETHASONE 0.1 % EYE DROPS 3 drops into each ear 2 times a day. DOCUSATE SODIUM 100 MG CAPSULE Take 100 mg by mouth two times daily. FLUTICASONE-SALMETEROL 250 MCG-50 MCG/DOSE DISK DEVICE FOR INHALATION Inhale 1 Puff once da gabe. FUROSEMIDE 10 MG ORAL DOSE Take 20 mg by mouth once daily. GABAPENTIN 800 MG TABLET Take 800 mg by mouth three times daily. HYDROCHLOROTHIAZIDE 25 MG TABLET Take 25 mg by mouth once daily. IBUPROFEN 800 MG TABLET Take 800 mg by mouth every six hours as needed. IPRATROPIUM BROMIDE 17 MCG/ACTUATION HFA AEROSOL INHALER Inhale 2 Puffs four times daily as needed. LEVOTHYROXINE 25 MCG TABLET Take 25 mcg by mouth before breakfast. LISINOPRIL 40 MG TABLET Take 40 mg by mouth once daily. LORAZEPAM 2 MG TABLET Take 2 mg by mouth every four hours as needed. LURASIDONE 40 MG TABLET Take by mouth once daily. METFORMIN 500 MG TABLET Take 500 mg by mouth two times daily. MIRTAZAPINE 30 MG TABLET Take 30 mg by mouth once daily in the evening. MOMETASONE 110 MCG (30 DOSES) BREATH ACTIVATED POWDER INHALER Inhale. OMEPRAZOLE 20 MG CAPSULE,DELAYED RELEASE Take 20 mg by mouth once daily. POLYETHYLENE GLYCOL 3350 17 GRAM ORAL POWDER PACKET Take 1 Packet by mouth once daily. PRAZOSIN 2 MG CAPSULE Take 2 mg by mouth two times daily. PROMETHAZINE 25 MG TABLET Take 25 mg by mouth four times daily as needed. RISPERIDONE 0.5 MG TABLET Take 0.5 mg by mouth two times daily. TIOTROPIUM BROMIDE 18 MCG CAPSULE WITH INHALATION DEVICE Inhale 18 mcg once daily. TRAMADOL 50 MG TABLET Take 50 mg by mouth every six hours as needed. Allergies Allergen Reactions Morphine Psychosis? Penicillins Rash Past Medical History Diagnosis Date Heart attack 2007 Hypertension Other and unspecified hyperlipidemia Chronic airway obstruction, not elsewhere classified PFTs 12/18/2011 FVC 5.19/99%, FEV1 2.82/69%, FEV1/FVC 54. Moderate obstruction with signif icant reversibility with bronchodilator. GERD (gastroesophageal reflux disease) controlled on PPI UTI (urinary tract infection) Diabetes mellitus type II on metformin Depressive disorder, not elsewhere classified Anxiety state, unspecified Unspecified nonpsychotic mental disorder Seizure disorder on tegretol Rectal fissure SUSAN (obstructive sleep apnea) 03/28/2008 Past Surgical History Procedure Date Pr sinus surgery proc unlisted 2006 Abdominal hernia repair 14 stomach surgery Cochlear implant Family History Problem Relation Lung Disease Mother COPD (smoker) Lung Disease Sister "lung disease" (smoker) Anesthesia Neg Hx Heart Disease Father History Substance Use Topics Smoking status: Former Smoker -- 3.0 packs/day for 20 years Types: Cigarettes Quit date: 06/20/2012 Smokeless tobacco: Never Used Comment: Pt smokes 3 packs of cigarettes per day x 20 years. Started smoking at age 8. Alcohol Use: 0.5 - 1.0 oz/week 1-2 drink(s) per week Pt buys case of beer with paycheck at start of month--drinks that and none for rest of m ont PHYSICAL EXAM: Last Vitals: BP 108/63 | Pulse 95 | Temp (Src) 36 C (96.8 F) (Oral) | RR 14 | Ht 1.829 m (6') | Wt 120.657 kg (266 lb) | SpO2 97% | BMI 36.08 kg/(m^2) Body mass index is 36.08 kg/ (m^2). General: Patients general appearance: Alert, No distress, Cooperative, Smiling and Age appr opriate Head & Neck/Airway: Neck ROM: full Neck Circumference: 47 cm. TM Distance:Normal Dentition: missing teeth Dentition Comments: edentulous Vance: No Mallam anastasiya: II Mouth Opening: > = 3 cm C-Spine: normal Neck Anatomy: Thick, obese Jaw Protrusion: Normal, lower incisors can protrude past upper incisors Lung Exam: breath sounds abnormal + wheezes (scattered; good air movement) - rhonchi, decreased breath sounds and rales Cardiac: No murmurs, rubs, or gallops. No peripheral edema. Rhythm: regular Rate: normal Abdominal: obesity (reducible, tender umbilical hernia. normal bowel sounds. ) Musculoskeletal: Neuro/Psych: LLE motor 0/5. Absent sensation LLE. L hand tremor with rest and action. alert Findings: Cranial nerves 2-12 intact, Normal affect and Alert, oriented to person, place, t ezequiel Integument: + open wounds (abrasions on left leg) - rash Color: pink Texture: Skin texture - normal Turgor: turgor normal Implants: ear implant, Comments: L cochlear implant LAB DATA REVIEWED/ORDERED Lab Results Component Value Date WBC 7.4 08/13/2012 HB 12.5 08/13/2012 HCT 36.5 08/13/2012 PLT 159 08/13/2012 MCV 94.3 08/13/2012 RDW 13.1 08/13/2012 Lab Results Component Value Date NA 135 08/13/2012 K 4.7 08/13/2012 CL 101 08/13/2012 BICARB 26 08/13/2012 BUN 15 08/13/2012 CR 0.82 08/13/2012 GLU 80 08/13/2012 CA 9.0 08/13/2012 Lab Results Component Value Date ABO A 08/13/2012 RH Negative 08/13/2012 Lab Results Component Value Date A1C 5.2 08/13/2012 EKG: Personally reviewed, normal sinus rhythm, HR 92 bpm, normal EKG Stress Echo 08/13/2012 Final Impressions: 1. At rest there is low normal left ventricular systolic function 2. Visually estimated at rest EF 50-55% with hypokineisis of the basal and mid inferior and inferolateral segments. 3. Stage 1: Baseline: Mid and apical inferior wall and mid inferolateral segment are abnormal. Stage 4: Recovery: Mid and apical inferior wall, mid inferolateral segment, and apical lateral segment are abnormal. 4. Echo negative for inducible ischemia at submaximal HR. 5. EKG negative for ischemia. Submaximal and non-diagnostic dobutamine stress test as patient failed to reach 85% MAPHR with dobutamine and atropine. (note: patient reached 81% MAPHR with max HR during stress 141 bpm) MEDICAL DECISION MAKIN ACC/ AHA Perioperative Guidelines 1. Need for emergency noncardiac surgery? b. No -> Proceed to next step. 2. Active Cardiac Conditions? These conditions mandate further investigation and manageme nt. A. Acute MD within 7 days: no B. Unstable angina/Recent MD (7- 30 days): no C. Decompensated CHF: no D. Significant arrhythmia: None E. Severe valvular disease: NONE 3. Low risk surgery? b. No -> proceed with next step. 4. Good functional capacity? MET ASSESSMENT: 1. METS--eating, getting dressed, working a t a desk. 5. Assess Clinical Risk Factors? A. Ischemic heart disease: yes B. Compensated / prior heart failure: no C. Diabetes mellitus (treated with insulin): no D. Renal insufficiency (Cr > 2): no E. Cerebrovascular disease: no Rate of cardiac , non fatal MD, non fatal cardiac arrest (RCRI) 1 risk factors - 1%, Risk Factor Recommendations: 1-2 risk factors- proceed with planned surgery with HR control or consider noninvasive testing if it will price changer Surgery Risk: Intermediate Patient-related risk: Estimated ASA class -- 3 ASSESSMENT and RECOMMENDATIONS: Surgical/anesthesia risk assessment: Edgar Marquez is a 46 y.o. male with diagnos is of ventral hernia, scheduled for ventral hernia repair. According to ACC/AHA, this patie nt has one clinical risk factor and the recommendation is to proceed with planned surgery wi thout additional cardiac testing. Medication management recommendations: The patient was advised to continue all usual med ications except as noted in Patient Instructions (After Visit Summary given to pt) Perioperative antibiotic prophylaxis: Standard (Consider IV Vanco one hr before procedu re in pts with Cephalosporin/PCN allergy and/or with hx of MRSA) Coronary artery disease: Clinically stable on aspirin therapy and with good blood pressu re control. He has not been on a beta olga for unclear reasons. Stress echo today showed normal baseline LV EF and fixed LV defects (no prior or baseline studies available for valdo tirado). There was no inducible ischemia at 81% of maximum age predicted heart rate. Based on these results, further testing unlikely to price changer and recommend proceeding with planned surgery with heart rate and blood pressure control. Would resumed aspirin post-opera tively when surgical bleeding risk deemed acceptable. Seizure disorder: Per history, generally well controlled on Tegretol. COPD: Slight wheezing today but overall stable with PFTs within the last year and normal CXR in May 2012. No additional testing recommended at this time as it is unlikely to c hange management. He should remain on bronchodilators and inhaled steroids perioperatively. His baseline COPD does increase his risk of post-op respiratory complications. Diabetes mellitus 2: Well controlled on metformin. Recommend holding metformin while inp atient and covering with sliding scale insulin. Hypertension: Well controlled on current medications. This patient is medically stable for surgery. Further testing/optimization is not needed. Thank you for the opportunity to contribute to this patient's care. JULIANA THOMAS MD [facility] [address] [place] [id number] [phone] signed by Juliana Thomas MD at 08/14/2012 9:55 PM PSTdocume nted in this encounter Plan of Treatment +--------+ + + + + | Date | Type | Specialty | Care Team | Description | +--------+ + + + + | 04/29/ | Diagnostic | Pot Feeder | Marce Meyer | | | 2019 | Visit | | Finn, Eve [address] [facility] | | | | | | [address] | | | | | | [place] | | | | | | [address] | | +--------+ + + + + documented as of this encounter Procedures + +--------+ + + + | Procedure Name | Priori | Date/Time | Associated Diagnosis | Comments | | | ty | | | | + +--------+ + + + | PROCEDURE NOTE | Routin | 08/30/2015 | | Results for this | | | e | 11:54 PM | | procedure are in the | | | | PST | | results section. | + +--------+ + + + | TYPE AND SCREEN | Routin | 08/13/2012 | Ventral hernia | Results for this | | | e | 4:31 PM | Pre-operative | procedure are in the | | | | PST | examination | results section. | + +--------+ + + + | HEMOGLOBIN A1C, POC | Routin | 08/13/2012 | Ventral hernia | Results for this | | | e | 2:28 PM | Pre-operative | procedure are in the | | | | PST | examination | results section. | + +--------+ + + + | NH COLLECTION VENOUS | Routin | 08/13/2012 | Other specified | | | BLOOD,VENIPUNCTURE | e | 2:20 PM | pre-operative | | | | | PST | examination | | + +--------+ + + + | CBC ONLY | Routin | 08/13/2012 | Ventral hernia | Results for this | | | e | 2:11 PM | Pre-operative | procedure are in the | | | | PST | examination | results section. | + +--------+ + + + | BASIC METABOLIC SET | Routin | 08/13/2012 | Ventral hernia | Results for this | | (NA, K, CL, TCO2, | e | 2:11 PM | Pre-operative | procedure are in the | | BUN, CR, GLU, CA) | | PST | examination | results section. | + +--------+ + + + | CBC ONLY | Routin | 08/13/2012 | Ventral hernia | Results for this | | | e | 2:11 PM | Pre-operative | procedure are in the | | | | PST | examination | results section. | + +--------+ + + + | ANTIBODY SCREEN | Routin | 08/13/2012 | Ventral hernia | Results for this | | | e | 2:11 PM | Pre-operative | procedure are in the | | | | PST | examination | results section. | + +--------+ + + + | ABO & RH TYPE | Routin | 08/13/2012 | Ventral hernia | Results for this | | | e | 2:11 PM | Pre-operative | procedure are in the | | | | PST | examination | results section. | + +--------+ + + + | 12 LEAD ECG | Routin | 08/13/2012 | Ventral hernia | Results for this | | | e | 2:02 PM | Pre-operative | procedure are in the | | | | PST | examination | results section. | + +--------+ + + + | NH COLLECTION VENOUS | Routin | 08/13/2012 | Ventral hernia | | | BLOOD,VENIPUNCTURE | e | 1:45 PM | Pre-operative | | | | | PST | examination | | + +--------+ + + + documented in this encounter Results PROCEDURE NOTE (08/30/2015 11:54 PM PST) + + | Transcriptions | + + | Other, Faculty - 08/13/2012 6:50 PM PST | + + HEMOGLOBIN A1C, POC (08/13/2012 2:28 PM PST) + +-------+ + + + | Component | Value | Ref Range | Performed | Pathologist | | | | | At | Signature | + +-------+ + + + | HEMOGLOBIN | 5.2 | 4.0 - 5.7 % | [facility] - | | | A1C,POC | | | [facility] | | | | | | [facility] | | | | | | OF CARE | | | | | | TESTS | | + +-------+ + + + + + | Specimen | + + | Blood | + + + + + + + | Performing | Address | City/State/Zipcode | Phone Number | | Organization | | | | + + + + + | [facility] | [address] | [place], [place] | | | [facility] | [address] | [address] | | | TESTS | | | | + + + + + CBC (08/13/2012 2:11 PM PST) + + + + + + | Component | Value | Ref Range | Performed | Pathologist | | | | | At | Signature | + + + + + + | WHITE CELL | 7.4 | 4.4 - 11.0 K/cu | [facility] | | | COUNT | | mm | LABORATORY | | | | | | SERVICES, | | | | | | CORE | | + + + + + + | RED CELL | 3.87 (L) | 4.50 - 5.90 | [facility] | | | COUNT | | M/cu mm | LABORATORY | | | | | | SERVICES, | | | | | | CORE | | + + + + + + | HEMOGLOBIN | 12.5 (L) | 13.5 - 17.5 | [facility] | | | | | g/dL | LABORATORY | | | | | | SERVICES, | | | | | | CORE | | + + + + + + | HEMATOCRIT | 36.5 (L) | 41.0 - 53.0 % | [facility] | | | | | | LABORATORY | | | | | | SERVICES, | | | | | | CORE | | + + + + + + | MCV | 94.3 | 80.0 - 96.0 fL | [facility] | | | | | | LABORATORY | | | | | | SERVICES, | | | | | | CORE | | + + + + + + | MCHC | 34.2 | 33.4 - 35.5 | [facility] | | | | | g/dL | LABORATORY | | | | | | SERVICES, | | | | | | CORE | | + + + + + + | RDW | 13.1 | 11.5 - 15.0 % | [facility] | | | | | | LABORATORY | | | | | | SERVICES, | | | | | | CORE | | + + + + + + | PLATELET | 159 | 150 - 400 K/cu | [facility] | | | COUNT | | mm | LABORATORY | | | | | | SERVICES, | | | | | | CORE | | + + + + + + + + | Specimen | + + | Blood - Blood | + + + + + + + | Performing | Address | City/State/Zipcode | Phone Number | | Organization | | | | + + + + + | [facility] | [address] | [place] [address] | | | SERVICES, CORE | [address] | | | + + + + + ANTIBODY SCREEN (08/13/2012 2:11 PM PST) + + + + + + | Component | Value | Ref Range | Performed | Pathologist | | | | | At | Signature | + + + + + + | Antibody | Negative | | [facility] | | | Screen | | | LABORATORY | | | | | | SERVICES, | | | | | | TRANSFUSION | | | | | | MEDICINE | | + + + + + + + + | Specimen | + + | Blood - Blood | + + + + + + + | Performing | Address | City/State/Zipcode | Phone Number | | Organization | | | | + + + + + | [facility] | [address] | [place] [address] | | | SERVICES, | [address] | | | | TRANSFUSION MEDICINE | | | | + + + + + ABO & RH TYPE (08/13/2012 2:11 PM PST) + + + + + + | Component | Value | Ref Range | Performed | Pathologist | | | | | At | Signature | + + + + + + | ABO Group | A | | [facility] | | | | | | LABORATORY | | | | | | SERVICES, | | | | | | TRANSFUSION | | | | | | MEDICINE | | + + + + + + | Rh Type | Negative | | [facility] | | | | | | LABORATORY | | | | | | SERVICES, | | | | | | TRANSFUSION | | | | | | MEDICINE | | + + + + + + + + | Specimen | + + | Blood - Blood | + + + + + + + | Performing | Address | City/State/Zipcode | Phone Number | | Organization | | | | + + + + + | [facility] | [address] | [place] [address] | | | SERVICES, | [address] | | | | TRANSFUSION MEDICINE | | | | + + + + + BASIC METABOLIC SET (NA, K, CL, TCO2, BUN, CR, GLU, CA) (08/13/2012 2:11 PM PST) + +---------+ + + + | Component | Value | Ref Range | Performed | Pathologist | | | | | At | Signature | + +---------+ + + + | GLUCOSE, | 80 | 60 - 99 mg/dL | [facility] | | | PLASMA | | | LABORATORY | | | (LAB) | | | SERVICES, | | | | | | CORE | | + +---------+ + + + | BUN, PLASMA | 15 | 6 - 20 mg/dL | [facility] | | | (LAB) | | | LABORATORY | | | | | | SERVICES, | | | | | | CORE | | + +---------+ + + + | CREATININE | 0.82 | 0.70 - 1.30 | [facility] | | | PLASMA | | mg/dL | LABORATORY | | | (LAB) | | | SERVICES, | | | | | | CORE | | + +---------+ + + + | EGFR | >60 | mL/min | [facility] | | | - | | | LABORATORY | | | SYRIAN | | | SERVICES, | | | | | | CORE | | + +---------+ + + + | EGFR NON | >60 | mL/min | [facility] | | | -KOKI | | | LABORATORY | | | RICAN | | | SERVICES, | | | | | | CORE | | + +---------+ + + + | SODIUM, | 135 (L) | 136 - 145 | [facility] | | | PLASMA | | mmol/L | LABORATORY | | | (LAB) | | | SERVICES, | | | | | | CORE | | + +---------+ + + + | POTASSIUM, | 4.7 | 3.4 - 5.0 | [facility] | | | PLASMA | | mmol/L | LABORATORY | | | (LAB) | | | SERVICES, | | | | | | CORE | | + +---------+ + + + | CHLORIDE, | 101 | 97 - 108 mmol/L | [facility] | | | PLASMA | | | LABORATORY | | | (LAB) | | | SERVICES, | | | | | | CORE | | + +---------+ + + + | TOTAL CO2, | 26 | 21 - 32 mmol/L | [facility] | | | PLASMA | | | LABORATORY | | | (LAB) | | | SERVICES, | | | | | | CORE | | + +---------+ + + + | CALCIUM, | 9.0 | 8.6 - 10.2 | [facility] | | | PLASMA | | mg/dL | LABORATORY | | | (LAB) | | | SERVICES, | | | | | | CORE | | + +---------+ + + + | ANION GAP | 8 | 4 - 11 mmol/L | [facility] | | | | | | LABORATORY | | | | | | SERVICES, | | | | | | CORE | | + +---------+ + + + | POTASSIUM | No Hemo | | [facility] | | | CMNT | | | LABORATORY | | | | | | SERVICES, | | | | | | CORE | | + +---------+ + + + + + | Specimen | + + | Blood - Blood | + + + + + + + | Performing | Address | City/State/Zipcode | Phone Number | | Organization | | | | + + + + + | [facility] | [address] | [place] [address] | | | JUAN OSPINA | [address] | | | + + + + + 12 LEAD ECG (08/13/2012 2:02 PM PST) + + + + + + | Component | Value | Ref Range | Performed | Pathologist | | | | | At | Signature | + + + + + + | VENTRICULAR | 92 | BPM | [facility] | | | RATE | | | OF | | | | | | CARDIOLOGY | | + + + + + + | ATRIAL RATE | 92 | BPM | [facility] | | | | | | OF | | | | | | CARDIOLOGY | | + + + + + + | P-R | 200 | ms | [facility] | | | INTERVAL | | | OF | | | | | | CARDIOLOGY | | + + + + + + | QRS | 96 | ms | [facility] | | | DURATION | | | OF | | | | | | CARDIOLOGY | | + + + + + + | QT | 338 | ms | [facility] | | | | | | OF | | | | | | CARDIOLOGY | | + + + + + + | QTC | 417 | ms | [facility] | | | | | | OF | | | | | | CARDIOLOGY | | + + + + + + | P AXIS | 73 | degrees | [facility] | | | | | | OF | | | | | | CARDIOLOGY | | + + + + + + | R AXIS | 86 | degrees | [facility] | | | | | | OF | | | | | | CARDIOLOGY | | + + + + + + | T AXIS | 56 | degrees | [facility] | | | | | | OF | | | | | | CARDIOLOGY | | + + + + + + | EKG | Normal sinus | | [facility] | | | DIAGNOSIS | rhythmNormal ECG"I have | | OF | | | | personally interpreted | | CARDIOLOGY | | | | this report, either | | | | | | alone or with a | | | | | | trainee."Confirmed by | | | | | | LEANDRO CARTY ([id number]) on | | | | | | 08/14/2012 8:15:16 AM | | | | + + + + + + + + | Specimen | + + | | + + + + + | Narrative | Performed At | + + + | Please click | [facility] OF | | on view image for the detailed interpretation from [employer] results. | CARDIOLOGY | + + + + + + + + | Performing | Address | City/State/Zipcode | Phone Number | | Organization | | | | + + + + + | [facility] | [address] | [place], [place] | | | CARDIOLOGY | [address] | [address] | | + + + + + documented in this encounter Visit Diagnoses + + | Diagnosis | + + | Pre-operative examination - Primary Preoperative examination, unspecified | + + | Ventral hernia Ventral hernia, unspecified, without mention of obstruction or | | gangrene | + + | Illiterate Other psychological or physical stress, not elsewhere classified | + + | Other specified pre-operative examination | + + | Heart attack (HCC) Acute myocardial infarction, unspecified site, episode of care | | unspecified | + + | Chronic airway obstruction, not elsewhere classified | + + documented in this encounter
--- OUTSIDE RECORDS SUMMARY | ~2019-04-25 | XMS | Encounter Summary ---
Demographics + + + | Address | [address] | | | [place] [address] | + + + | Home Phone | | + + + | Preferred Language | Unknown | + + + | Marital Status | Single | + + + | Shinto Affiliation | BAP | + + + | Race | White | + + + | Ethnic Group | Not or | + + + Author + + + | Author | [facility] | + + + | Organization | [facility] | + + + | Address | Unknown | + + + | Phone | Unavailable | + + + Support + + + + + | Name | Relationship | Address | Phone | + + + + + | Margarito Owusu | ECON | [address] | | | | | [place] | | | | | [address] | | + + + + + Care Team Providers + +------+ + | Care Spine Surgeon Name | Role | Phone | + +------+ + | Cee Triana MD | PCP | Unavailable | + +------+ + Encounter Details +--------+ + + + + | Date | Type | Department | Care Team | Description | +--------+ + + + + | 09/09/ | Telephone | [facility] | Ayana Butler W, | | | 2012 | | [place] [facility] | [address] | | | | | [place] | [facility] [place] | | | | | Mailcode: [place] | [address] | | | | | for Health and | [phone] | | | | | [facility] | | | | | | [place], [place] | | | | | | [address] | | | | | | [phone] | | | +--------+ + + + [...] + + | 04/29/ | Diagnostic | Project Management Professor | Marce Meyer | | | 2019 | Visit | | Eve Briseno [address] [place] [address] | | | | | | [address] | | | | | | [place] | | | | | | [address] | | +--------+ + + + + documented as of this encounter Visit Diagnoses Not on filedocumented in this encounter"
--- OUTSIDE RECORDS SUMMARY | ~2019-04-25 | XMS | Encounter Summary ---
Demographics + + + | Address | [address] | | | [place] [address] | + + + | Home Phone | | + + + | Preferred Language | Unknown | + + + | Marital Status | Single | + + + | Cheondoism Affiliation | BAP | + + + | Race | White | + + + | Ethnic Group | Not or | + + + Author + + + | Author | [facility] | + + + | Organization | [facility] | + + + | Address | Unknown | + + + | Phone | Unavailable | + + + Support + + + + + | Name | Relationship | Address | Phone | + + + + + | Margarito Owusu | ECON | [address] | | | | | [place] | | | | | [address] | | + + + + + Care Team Providers + +------+ + | Care Tobacco Sieve Operator Name | Role | Phone | + +------+ + | Cee Triana MD | PCP | Unavailable | + +------+ + Reason for Referral Diagnostic Testing (Routine) +--------+--------+ + + + + | Status | Reason | Specialty | Diagnoses / | Referred By | Referred To | | | | | Procedures | Contact | Contact | +--------+--------+ + + + + | Closed | | Radiology | Diagnoses | Luke, | [address] Scan | | | | | H/O ventral | Ayana Jovel MD | [facility] [address] | | | | | hernia | [address] | | | | | repair | [address] | [address] | | | | | Procedures | [place], [place] | Mailcode: | | | | | CT ABDOMEN & | [address] | [address] [facility] | | | | | PELVIS W IV | Phone: | Hospital | | | | | CONTRAST | [phone] | [place], [place] | | | | | [address] | Fax: | [address] | | | | | | [phone] | Phone: | | | | | | | [phone] | | | | | | | Fax: | | | | | | | [phone] | +--------+--------+ + + + + Reason for Visit + + + | Reason | Comments | + + + | Return Patient | | + + + Consultation (Routine) +--------+--------+ + + + + | Status | Reason | Specialty | Diagnoses / | Referred By | Referred To | | | | | Procedures | Contact | Contact | +--------+--------+ + + + + | Closed | | Surgery | | [facility] | | | | | | Epic Dept | [facility] | | | | | | | [address] | | | | | | | [address] | | | | | | | Mailcode: | | | | | | | [facility] | | [facility] and | | | | | | | [facility]aling, | | | | | | | [address] | | | | | | | [place], [place] | | | | | | | [address] | | | | | | | Phone: | | | | | | | [phone] | | | | | | | Fax: | | | | | | | [phone] | +--------+--------+ + + + + Encounter Details +--------+---------+ + + + | Date | Type | Department | Care Team | Description | +--------+---------+ + + + | 11/24/ | Office | Digestive Health | Ayana Butler W, | H/O ventral hernia | | 2013 | Visit | [facility] [address] | MD [address] | repair (Primary Dx) | | | | [address] | [facility] [place] | | | | | Mailcode: [place] | [address] | | | | | for Health and | [phone] | | | | | Healing, [address] | | | | | | [place], [place] | | | | | | [address] | | | | | | [phone] | | | +--------+---------+ + + + [...] | drinks or equivalent | | with payevelinck at | | | | | start [...] + + + | Blood Pressure | 114/86 | 11/24/2012 4:09 PM | | | | | PDT | | + + + + + | Pulse | 108 | 11/24/2012 4:09 PM | | | | | PDT | | + + + + + | Temperature | 36.7 C (98.1 F) | 11/24/2012 4:09 PM | | | | | PDT | | + + + + + | Respiratory Rate | 17 | 11/24/2012 4:09 PM | | | | | PDT | | + + + + + | Oxygen Saturation | - | - | | + + + + + | Inhaled Oxygen | - | - | | | Concentration | | | | + + + + + | Weight | - | - | | + + + + + | Height | - | - | | + + + + + | Body Mass Index | - | - | | + + + + + documented in this encounter Progress Notes Ayana Butler MD - 11/24/2012 4:49 PM PDT11/24/2012 Blue Surgery follow up visit Attending MD Edgar Lowe presents status post R 07/2012 with postoperative infected seroma for mation s/p IR drainage 08/2012. Was last seen in clinic on 11/11. Cultures were taken and wo und care was taught. Cultures taken in clinic 2 wks ago were negative. Current concerns include: his seroma that he "lanced himself" continues to drain. No sign of infection. No erythema. No fevers. Pt complains of nausea and vomiting. Occ constipation. Physical exam: BP 114/86 | Pulse 108 | Temp (Src) 36.7 C (98.1 F) (Oral) | RR 17 General appearance: healthy, alert, cooperative and crying Lungs: negative Abdomen: large, soft, NTTP, well healed midline incision /x small 5mm opening with nu guaze that travels approximately 3cm inferiorly. Min drainage on dressing. Small bulge ?hernia r ecurrence at 2pm, more likely fluid collection. Assessment: Patient has draining seroma post VHR with biological mesh. Plan: Patient will follow up in [address] A/P to eval further for undrained fluid aamir ections. He cannot have this done today as he will miss his ride. Dressing changed today i n clinic. continue wound care. Return or call sooner for fevers or any other concern. Ayana Butler MD [facility] Division of General and Gastrointestinal Surgery Department of Surgery documented in this en counter Plan of Treatment +--------+ + + + + | Date | Type | Specialty | Care Team | Description | +--------+ + + + + | 04/29/ | Diagnostic | Java Web Application Developer | Marce Meyer | | | 2019 | Visit | | K, AuD [address] [facility] | | | | | | [address] | | | | | | [place], [place] | | | | | | [address] | | +--------+ + + + + documented as of this encounter Results CT ABDOMEN & PELVIS W IV CONTRAST (12/03/2012 9:29 AM PDT) + + + + + + | Component | Value | Ref Range | Performed | Pathologist | | | | | At | Signature | + + + + + + | CT ABDOMEN | STUDY: CT ABDOMEN & | | | | | & PELVIS W | PELVIS W CONTRAST | | | | | CONTRAST | 12/03/12 09:29:00 | | | | | | CLINICAL DATA: | | | | | | 47-year-old male with | | | | | | history of ventral | | | | | | hernia repairJanuary | | | | | | 2012 complicated by | | | | | | seroma. COMPARISON: CT | | | | | | abdomen and pelvis, | | | | | | 10/20/2012. TECHNIQUE: | | | | | | Helical axial images are | | | | | | obtained through the | | | | | | abdomen andpelvis after | | | | | | uneventful | | | | | | administration of 100 mL | | | | | | Isovue | | | | | | intravenouscontrast. | | | | | | FINDINGS:Lung bases are | | | | | | clear. ABDOMEN: 7-mm | | | | | | calcified granuloma at | | | | | | the hepatic dome is | | | | | | unchanged.Two | | | | | | subcentimeter hepatic | | | | | | dome hypodense CTs are | | | | | | unchanged from priorexam | | | | | | consistent with benign | | | | | | cysts versus | | | | | | hemangiomas. The | | | | | | liver isotherwise | | | | | | unremarkable. The | | | | | | gallbladder, biliary | | | | | | tree, pancreas,spleen, | | | | | | adrenal glands, and | | | | | | kidneys are without | | | | | | focal abnormality.The | | | | | | stomach and duodenum are | | | | | | | | | | | | unremarkable. Multipl | | | | | | e small bowelloops | | | | | | remain adherence to the | | | | | | ventral abdominal hernia | | | | | | repair meshwith no | | | | | | evidence for bowel | | | | | | obstruction. Subcutan | | | | | | eous soft tissuefluid | | | | | | collection associated | | | | | | with the repair mesh | | | | | | seen on prior examhas | | | | | | nearly completely | | | | | | resolved. Remaining | | | | | | increased soft | | | | | | tissuedensity with areas | | | | | | of mild enhancement | | | | | | overlying the repair | | | | | | mesh isconsistent with | | | | | | granulation tissue/scar. | | | | | | PELVIS: The bladder, | | | | | | prostate, and seminal | | | | | | vesicles are | | | | | | unremarkable. Mid | | | | | | transverse colon | | | | | | anastomosis is intact | | | | | | with no evidence | | | | | | forbowel | | | | | | obstruction. The | | | | | | rectum and colon are | | | | | | otherwise | | | | | | unremarkable.There is no | | | | | | pelvic | | | | | | lymphadenopathy. Ther | | | | | | e is no free | | | | | | intraperitonealfluid. | | | | | | Bones are intact with no | | | | | | suspicious focal | | | | | | abnormality. IMPRESSION: | | | | | | Near complete interval | | | | | | resolution of fluid | | | | | | collection associated | | | | | | withventral hernia | | | | | | repair mesh. | | | | | | Attending Radiologists: | | | | | | FORREST LOVE MDAuthor: | | | | | | Stewart Mai M.D. I | | | | | | have personally viewed | | | | | | this procedure/exam, | | | | | | reviewed this report,and | | | | | | made changes to it | | | | | | where appropriate. | | | | | | Final/Electronically | | | | | | signed / FORREST LOVE | | | | | | 12/03/2012 11:26 | | | | | | AM Pending final | | | | | | approval / Stewart | | | | | | Sergei 12/03/2012 10:04 | | | | | | AM Preliminary / | | | | | | Stewart Mai 12/03/2012 | | | | | | 9:31 AM | | | | + + + + + + + + | Specimen | + + | | + + + +---------+ + + | Performing | Address | City/State/Zipcode | Phone Number | | Organization | | | | + +---------+ + + | [facility] DEPARTMENT OF | | | | | RADIOLOGY | | | | + +---------+ + + documented in this encounter Visit Diagnoses + + | Diagnosis | + + | H/O ventral hernia repair - Primary Personal history of surgery to other organs | + + documented in this encounter
--- OUTSIDE RECORDS SUMMARY | ~2019-04-25 | XMS | Encounter Summary ---
Demographics + + + | Address | [address] | | | [place] [address] | + + + | Home Phone | | + + + | Preferred Language | Unknown | + + + | Marital Status | Single | + + + | Christian Affiliation | BAP | + + + | Race | White | + + + | Ethnic Group | Not or | + + + Author + + + | Author | [facility] | + + + | Organization | [facility] | + + + | Address | Unknown | + + + | Phone | Unavailable | + + + Support + + + + + | Name | Relationship | Address | Phone | + + + + + | Margarito Owusu | ECON | [address] | | | | | [place] | | | | | [phone] | | + + + + + Care Team Providers + +------+ + | Care Executive Secretary Social Welfare Name | Role | Phone | + +------+ + | Ender Wagoner MD | PCP | | + +------+ + Reason for Visit AUTH/CERT +--------+--------+ + + + + | [...] | | | | | | [address] | | | | | | | [place] | | | | | | | [facility] | | | | | | | Hospital | | | | | | | [place], [place] | | | | | | | [address] | | | | | | | Phone: | | | | | | | [phone] | | | | | | | Fax: | | | | | | | [phone] | +--------+--------+ + + + + Encounter Details +--------+ + + + + | Date | Type | Department | Care Team | Description | +--------+ + + + + | 12/03/ | Hospital | [address] | [place], | | | 2010 - | Encounter | [address] | MD Nancy [address] | | | | | [address] [place] [address] | [address] | | | 12/06/ | | [place], [place] | [place], [place] | | | 2010 | | [address] | [address] | | | | | [phone] | [phone] | | | | | | | [...] | | + +---+---+---+ + + | Tobacco Cessation: Ready to Quit: No | | Comments: Pt smokes 3 packs of [...] + + + | Blood Pressure | 156/81 | 12/06/2010 5:34 AM | | | | | PDT | | + + + + + | Pulse | 110 | 12/06/2010 5:34 AM | | | | | PDT | | + + + + + | Temperature | 37.1 C (98.8 F) | 12/06/2010 5:34 AM | | | | | PDT | | + + + + + | Respiratory Rate | 20 | 12/06/2010 5:34 AM | | | | | PDT | | + + + + + | Oxygen Saturation | 92% | 12/06/2010 5:34 AM | | | | | PDT | | + + + + + | Inhaled Oxygen | - | - | | | Concentration | | | | + + + + + | Weight | 115.2 kg (253 lb | 12/06/2010 6:00 AM | | | | 15.5 oz) | PDT | | + + + + + | Height | 184.8 cm (6' 0.75") | 12/03/2010 5:57 PM | | | | | PDT | | + + + + + | Body Mass Index | 33.74 | 12/03/2010 5:57 PM | | | | | PDT | | + + + + + documented in this encounter Discharge Summaries Edilberto Daigle MD - 12/06/2010 1:11 PM PDT INPATIENT PHYSICIAN DISCHARGE SUMMARY Attending Physician: Nancy Romero MD PCP: Ender Wagoner MD Admission Date: 12/03/2010 Discharge Date: 12/06/2010 Diagnoses Principal Final Diagnosis: 1. Bilateral Otitis externa Additional Diagnoses 2. Concern for middle ear infection 3. Chronic pain 4. Depression/Anxiety/Bipolar disorder 5. Nausea/Vomiting 6. Constipation 7. Asthma/COPD 8. L Cochlear implant Procedures PICC line placed on 12/05 Reason For Admission: Otitis externa, concern for middle ear infection Hospital Course: Edgar Marquez is a 45 y.o. male with bilateral otitis externa, L cochlear implant, L mastoid and middle ear opacification on temporal bone CT scan admitted from ENT clinic with n/v. 1. Otitis Externa: Imaging results concerning for possible L middle ear infection. Cultures with Pseudomonas. Currently receiving Ciprodex ear drops and IV cefepime. Reassuring that E SR and CRP not elevated. PICC placed 12/05. - Planned 6 week course of IV cefepime 2g q12hr x 6 weeks - Unclear if patient will follow through as he was angry re: having to leave his home for PICC care and left prior to issue being figured out. - During our last conversation prior to discharge patient indicated he was willing to try IV abx for several weeks and will f/u with his PCP Dr. Ender Wagoner. - I spoke with Dr. aWgoner on 12/05, he will follow up with patient within 1 week and evelin ck weekly CBC/BMP - Continue Ciprodex Otic drops and Acetic acid Otic drops - F/U in ENT clinic in 1 to 2 weeks, patient indicated he would like to follow up with Dr. James Sanchez of [place], ENT team notified and would be happy to provide Dr. Sanchez of an y helpful info. 2. Nausea/Vomiting: Resolved during hospitalization, patient able to take good PO. Suspect combination of chronic ileus 2/2 narcotics and cannabinoid hyperemesis syndrome as patient l hong-term daily smoker, symptoms relieved with hot showers. Patient resistant to these diagno ses and refuses to taper THC or minimize opiates. 3. Chronic pain: Patient reports chronic pain in shoulder, abd and back. Previously treated with Narcotics and uses medical marijuana for pain control. During hospitalization, on day of discharge, patient was very frustrated with MD's refusal to increase pain medications ove r what was already ordered (Oxycodone 20mg Q6hr PRN and Dilaudid IV 0.2-0.3mg q4hr PRN) and pulled out 3 of his toenails to "show you how much pain I'm in". Discussed pain management i ssues with pt's PCP, who indicated he did not intend to maintain patient on chronic opioids and requested not to discharge on narcotics unless needed to help pain from ear infection. D iscussed this with ENT, who felt no need for pain medications for his otitis externa and pos sible middle ear infection. - Will not discharge home with new opiate prescription. - Continue home dose gabapentin 4. Bipolar disorder/Anxiety: Emotional lability noted during hospitalization. - Discharge home on previous regimen of: Seroquel 25mg TID, Mirtazepine 30mg qHS, Lorazepa m 2mg TID and Citalopram 10mg qHS 5. COPD/Asthma: No significant respiratory distress during hospitalization. - Continue previous home inhalers, except stopped Theophyline. 6. HTN: BP well controlled while inpatient. - Continue HCTZ 25mg daily, Lisinopril 10mg daily 7. DMII: CBGs well-controlled while inpatient, no need for insulin - Continue home dose metformin on discharge. Discharge Medication List as of 12/06/10 11:19 AM START taking these medications acetic acid 2 % Otic Solution Instill 4 Drops into both ears three times daily., Disp-15 mL, R-0, Print Prescription Cefepime HCl 1 gram Intravenous Recon Soln Inject 2 g into the vein (IV) every twelve hours. Medication to be admixed per infusion [facility] standard policy and/or procedure., Disp-84 Dose(s), R-0, Print Prescription ciprofloxacin-dexamethasone 0.3-0.1 % Otic Drops, Suspension Instill 4 Drops into both ears two times daily., Disp-7.5 mL, R-0, Print Prescription CONTINUE these medications which have NOT CHANGED albuterol (PROAIR HFA) 90 mcg/Actuation Inhalation HFA Aerosol Inhaler inhale 1 puff by inhalation route every 4-6 hours as needed, Historical Med Albuterol Sulfate 2.5 mg/0.5 mL Inhalation Solution for Nebulization inhale 0.5 milliliter (2.5 mg) by nebulization route 3 times per day, Historical Med CARBAMAZEPINE ORAL Take 400 mg by mouth once daily., Historical Med citalopram 10 mg Oral Tablet Take 10 mg by mouth once daily., Historical Med dexamethasone 0.1 % Ophthalmic Drops Instill 3 Drops into both eyes. Please disregard eye instructions. Instill 3 drops in bot h ears 3 times a day for 14 days., Disp-5 mL, R-0, eRx fluticasone-salmeterol (ADVAIR DISKUS) 250-50 mcg/dose Inhalation Disk with Device Inhale 1 Puff two times daily., Historical Med gabapentin (NEURONTIN) 300 mg Oral Capsule Take 300 mg by mouth three times daily., Historical Med HYDROCHLOROTHIAZIDE OR take 1 tablet (25mg) every day, Historical Med hydrOXYzine 50 mg Oral Tablet Take by mouth every six hours as needed for itching. Take 1-2 tabs every 6 hours as neede d for itching, Disp-60, R-1, eRx IPRATROPIUM BROMIDE (BULK) MISC use w/ nebulizer 4 times daily, Historical Med levothyroxine 25 mcg Oral Tablet Take 25 mcg by mouth once daily., Historical Med lisinopril 10 mg Oral Tablet take 1 tablet (10 mg) by oral route once daily, Historical Med loratadine 10 mg Oral Tablet Take 10 mg by mouth once daily as needed. Indications: Allergic Rhinitis, Historical Med LORazepam 2 mg Oral Tablet Take 2 mg by mouth three times daily as needed., Historical Med lovastatin 20 mg Oral Tablet take 1 tablet (20 mg) by oral route once daily with evening meal, Historical Med mirtazapine (REMERON) 30 mg Oral Tablet take 1 tablet (30 mg) by oral route once daily before bedtime, Historical Med omeprazole (PRILOSEC) 20 mg Oral Capsule, Delayed Release(E.C.) take 1 capsule (20 mg) by oral route once daily before a meal, Historical Med permethrin 5 % Topical Cream by Topical route once. To treat scabies: Apply from head to toe, leave on overnight, and t hen wash off in the morning. Repeat in one week., Disp-2 wk supply, R-1, eRx prazosin 1 mg Oral Capsule take 1 capsule (1 mg) by oral route 3 times per day, Historical Med QUEtiapine (SEROQUEL) 25 mg Oral Tablet Take 25 mg by mouth three times daily., Historical Med SENNOSIDES (SENNA CONCENTRATE ORAL) Take by mouth., Historical Med STOP taking these medications doxycycline hyclate 100 mg Oral Tablet Comments: Reason for Stopping: NEOMY SULF/POLYMYX B SULF/HC ([id number]) Otic Solution Comments: Reason for Stopping: ofloxacin 0.3 % Ophthalmic Drops Comments: Reason for Stopping: Theophylline 300 mg Oral Tablet Comments: Reason for Stopping: Diet Diabetic (Consistent Carbohydrate) Diabetic diet (Consistent Carbohydrate)- You should be careful to control your daily inta ke of carbohydrates and ensure that you are consuming the same amount of carbohydrates each day. Your health care provider will work with you to determine the appropriate amount of ca rbohydrates your body needs. Activity No activity restrictions Destination: Destination: Home Condition on Discharge Good Discharge Follow Up with PCP With: Primary Care Provider: Ender Wagoner Appointment: I have spoken with your doctor and he would like to see you in the next week, please call his clinic to make an appointment. Discharge Follow Up Provider and Clinic: ENT Appointment: Please call the [facility] ENT clinic at [phone] to make an appointment to be seen in 1 to 2 weeks. Alternatively, if you do not wish to be seen in the [facility] ENT clinic, y rut may follow up with Dr. James Sanchez in [place] who you already know. I have passed this information to our ENT doctors so that they can update Dr. Sanchez with your latest cat scan results. Please call his office to make an appointment for 1 to 2 weeks ([phone]) Other Discharge Orders and Instructions You will need to have your blood drawn every week, Dr. Wgaoner will be checking on your l abs Other Discharge Orders and Instructions Home infusion services with nursing for home dressing changes per protocol. Outstanding labs/studies: None Discharging Physician: EDILBERTO DAIGLE MD Attending Physician: Nancy Romero MD documented in th is encounter Discharge Instructions Instructions Jeri Medel RN - 12/06/2010INPATIENT NURSE ORDER FOR DISCHARGE AND INTERDISCIPLINARY INSTRUCTIONS DISCHARGE DATE: 12/06/2010 PATIENT EDUCATION: Patient given the following printed education materials Otitis externa Review with patient/family: Understanding of disease/injury/surgical repair Yes Signs/symptoms that they should report Yes Understanding of medications and side effects Yes Activity and diet instructions Yes Follow-up appointments Yes Any concerns/fears Yes Smoking Cessation Counseling/Information was given on admission. Additional Instructions: (ex: daily weights, wound care, tube feeding, trach care, CBG kelton toring etc.) IV Antibiotic administration gone over with patient by home care traveling representative Personal Effects/Medications: Admit belongings list verified and Sent home with patient Discharged Via: Wheelchair Mode of Transportation: Other: Medical Transport Accompanied by: Staff Discharge Nurse: Jeri Livingston Date: 12/06/2010 Discharge Time: 11:18 AM Swimmer's Ear (Otitis Externa) You have been diagnosed as having otitis externa ( swimmer's ear ). Otitis externa is a bacterial (germ) or fungal infection of the outer ear canal (from the eardrum to the outsid e of the ear). Swimming in dirty water may cause swimmer's ear. It also may be caused by dane sture in the ear from water remaining after swimming or bathing. Often the first signs of in fection may be itching in the ear canal. This may be associated with pus like drainage from the canal. HOME CARE INSTRUCTIONS It is important to keep your ear dry. Use the corner of a towel to wick water out of the ear canal after swimming or bathing. Avoid scratching in your ear. This can damage the ear canal or remove the protective wax lining the canal and make it easier for bacteria (germs) or a fungus to grow. Make up a small bottle of equal parts of white vinegar and alcohol. Put three or four dr ops into the infected ear while lying down and keeping that ear pointed up. Keep drops in fo r two or three minutes. You may then turn over and let that ear drain and do the same thing with the opposite side even if that side is not infected. Drain this ear also after two to t hree minutes. Hopefully this will prevent infection on that side. Repeat this treatment thre e times per day. If it seems to be helping, continue the treatment for one month. Sleeping with your head raised may help relieve pain. Use a cotton tipped swab to dry ear canal after swimming or bathing. You may use acetaminophen (Tylenol), ibuprofen (Advil or Motrin), or aspirin as ne eded for pain and inflammation (soreness) if your caregiver has not given medications which would interfere with this or advises otherwise. Take ibuprofen with food in your stomach or with a meal to avoid stomach upset. If you have not improved within one week, see your caregiver. CALL YOUR CAREGIVER OR THIS LOCATION IF: You have pain that is not relieved by eardrops or heat. An oral temperature above 102 F (38.9 C) develops, or as your caregiver suggests. There is any discharge from the ear, the outer ear becomes red or swollen, or there is s welling behind your earlobe. Your ear is still painful after 3 days or is getting worse. You have problems that may be related to the medicine you are taking. [facility] Patient Information 2007 Intellicyt. Swimmer's Ear (Otitis Externa) You have been diagnosed as having otitis externa ( swimmer's ear ). Otitis externa is a bacterial (germ) or fungal infection of the outer ear canal (from the eardrum to the outsid e of the ear). Swimming in dirty water may cause swimmer's ear. It also may be caused by dane sture in the ear from water remaining after swimming or bathing. Often the first signs of in fection may be itching in the ear canal. This may be associated with pus like drainage from the canal. HOME CARE INSTRUCTIONS It is important to keep your ear dry. Use the corner of a towel to wick water out of the ear canal after swimming or bathing. Avoid scratching in your ear. This can damage the ear canal or remove the protective wax lining the canal and make it easier for bacteria (germs) or a fungus to grow. Make up a small bottle of equal parts of white vinegar and alcohol. Put three or four dr ops into the infected ear while lying down and keeping that ear pointed up. Keep drops in fo r two or three minutes. You may then turn over and let that ear drain and do the same thing with the opposite side even if that side is not infected. Drain this ear also after two to t hree minutes. Hopefully this will prevent infection on that side. Repeat this treatment thre e times per day. If it seems to be helping, continue the treatment for one month. Sleeping with your head raised may help relieve pain. Use a cotton tipped swab to dry ear canal after swimming or bathing. You may use acetaminophen (Tylenol), ibuprofen (Advil or Motrin), or aspirin as ne eded for pain and inflammation (soreness) if your caregiver has not given medications which would interfere with this or advises otherwise. Take ibuprofen with food in your stomach or with a meal to avoid stomach upset. If you have not improved within one week, see your caregiver. CALL YOUR CAREGIVER OR THIS LOCATION IF: You have pain that is not relieved by eardrops or heat. An oral temperature above 102 F (38.9 C) develops, or as your caregiver suggests. There is any discharge from the ear, the outer ear becomes red or swollen, or there is s welling behind your earlobe. Your ear is still painful after 3 days or is getting worse. You have problems that may be related to the medicine you are taking. [employer] Patient Information 2006 Intellicyt. documented in this encounter Progress Notes Nancy Romero MD - 12/06/2010 1:01 PM PDTFormatting of this note might be differen t from the original. ATTENDING BRIEF DISCHARGE NOTE ADMIT DATE: 12/03/2010 4:38 PM TODAY'S DATE: 12/06/2010 (HOSPITAL DAY 3) I personally interviewed the patient, performed the newell elements of the physical examinatio n, and discussed all aspects of care with GM team on rounds today. Interval History Pt adamant about leaving today. Had a bad night. Feels we are withholding his pain medicati ons. No new complaints other than pain all over. Does report he pulled out his toenails. Santi cribes that he does this to "get your attention" so we will "see how much pain I'm in". Exam Appears more comfortable. No R arm tremor. Not tearful but angry, irritable. Remainder unchanged. Patient Active Hospital Problem List: 1) *Otitis externa 2) Asthma 3) Disorder, Posttraumatic Stress 4) Nausea & vomiting-resolved. Suspect THC hyperemesis syndrome. Pt not agreeable to this diagnosis or with suggestion to taper daily THC use. Also likely some Narcotic ileus; couns eled pt to minimize narcotics. 5) Chronic pain 6) Cochlear implant in place Assessment and Plan Pt admitted from ENT clinic with nausea/vomiting and concern for bilat OE. Has been started on systemic abx with plan for probably 6 weeks rx. Inflammatory markers low, WBC normalized . Despite his underlying personality and psychiatric issues, he has successfully done outpt PICC line, iv abx in the past. As such, will dc home. Resident spoke with PCP yesterday in a nticipation of discharge. Pt planning to follow up with ENT in [place]. Please refer to the resident discharge summary for additional details. I spent 40 min in this discharge of which >50% spent in coordination of care. Nancy Romero MD [facility] Medicine [facility] DEPARTMENT: Hosp- [id number] Place of Service: - Date of Service: 12/06/2010 CSN: [id number] Modifiers: Resident Involved: Yes CPT: 72733 Discharge Management > 30 minute Cong Cueto Md - 12/06/2010 12:54 PM PDTAsked by internal medicine team to talk to patient, as he was imminently discharging and refusing to take IV antibiotics, as he does not want to care for PICC line. Went to patient room soon afterwards, patient had just left, discharge completed by hospital transportation. Unable to talk to patient. Hector Cueto Md - 12/06/2010 8:02 AM PDTFormattin g of this note might be different from the original. Otolaryngology Progress Note Date:12/06/2010 Hospital Day:3 Author; HECTOR READ MD Attending Physician: Nancy Romero MD Interval Hx: patient very upset this morning. Very upset that he is not receiving opioids for pain. Also angry that doctors are "experimenting" on him by placing PICC line yesterday - does not want IV therapy. Still notes ear drainage. acetic acid (aka VOSOL) 2 % otic drops 4 Drop, 4 Drop, Both Ears, TID albuterol (aka PROVENTIL, VENTOLIN) 90 mcg/Actuation inhaler 2 Puff, 2 Puff, Inhalation, Q4 H PRN albuterol 0.083% (aka PROVENTIL,VENTOLIN) 2.5 mg /3 mL (0.083 %) nebulizer solution 2.5 mg, 2.5 mg, Inhalation, Q6H PRN bisacodyl EC (aka DULCOLAX) tablet 5 mg, 5 mg, Oral, DAILY PRN ceFEPIme (aka MAXIPIME) IV (minibag+) 2 g, 2 g, Intravenous, Q12H ciprofloxacin-dexamethasone (aka CIPRODEX) 0.3-0.1 % otic drops 4 Drop, 4 Drop, Both Ears, BID fluticasone-salmeterol (aka ADVAIR) 250-50 mcg/dose inhaler 1 Puff, 1 Puff, Inhalation, BID gabapentin (aka NEURONTIN) capsule 900 mg, 900 mg, Oral, TID heparin injection 5,000 Units, 5,000 Units, Subcutaneous, Q8H hydrochlorothiazide (aka HYDRODIURIL) tablet 25 mg, 25 mg, Oral, DAILY HYDROmorphone (aka DILAUDID) injection 0.2-0.3 mg, 0.2-0.3 mg, Intravenous, Q4H PRN ibuprofen (aka MOTRIN) tablet 200 mg, 200 mg, Oral, Q6H PRN ipratropium (aka ATROVENT) 17 mcg/Actuation inhaler 2 Puff, 2 Puff, Inhalation, QID lidocaine (aka LIDODERM) 5 %(700 mg/patch) 1 Patch, 1 Patch, Transdermal, Q24H lisinopril (aka PRINIVIL) tablet 10 mg, 10 mg, Oral, DAILY LORazepam (aka ATIVAN) tablet 0.5-2 mg, 0.5-2 mg, Oral, DAILY PRN LORazepam (aka ATIVAN) tablet 2 mg, 2 mg, Oral, TID mirtazapine (aka REMERON) tablet 30 mg, 30 mg, Oral, HS omeprazole (aka PRILOSEC) capsule 20 mg, 20 mg, Oral, DAILY ondansetron (aka ZOFRAN) injection 4 mg, 4 mg, Intravenous, Q12H PRN oxyCODONE immediate release (aka ROXICODONE) tablet 20 mg, 20 mg, Oral, Q6H PRN polyethylene glycol (aka MIRALAX) powder 17 g, 17 g, Oral, DAILY PRN prazosin (aka MINIPRESS) capsule 1 mg, 1 mg, Oral, HS promethazine (aka PHENERGAN) injection 6.25 mg, 6.25 mg, Intravenous, Q6H PRN QUEtiapine (aka SEROQUEL) tablet 25 mg, 25 mg, Oral, HS REMOVE lidocaine patch, , Transdermal, Q24H senna-docusate (aka SENOKOT S) 8.6-50 mg 1 Tab, 1 Tab, Oral, DAILY simvastatin (aka ZOCOR) tablet 10 mg, 10 mg, Oral, QPM Physical Exam: Last Vitals: BP 156/81 | Pulse 110 | Temp 37.1 C (98.8 F) | RR 20 | Ht 1.848 m (6' 0.75 ") | Wt 115.2 kg (253 lb 15.5 oz) | SpO2 92% | BMI 33.74 kg/(m^2) 24 Hour Vital Min/Max: Systolic (24hrs), Min:128 mmHg, Max:156 mmHg Diastolic (24hrs), Min:66 mmHg, Max:82 mmHg Pulse Av.4 Min: 85 Max: 110 Temp Av.8 C (98.2 F) Min: 36.5 C (97.7 F) Max: 37.1 C (98.8 F) Resp Av Min: 20 Max: 20 SpO2 Av.4 % Min: 92 % Max: 95 % Intake/Output Summary (Last 24 hours) at 12/06/10 0802 Last data filed at 12/06/10 0424 Gross per 24 hour Intake 2270 ml Output 1500 ml Net 770 ml General Appearance: agitated and upset Breathing comfortably Small amount of drainage from bilateral EACs. No postauricular swelling, auricles normal. Left CI in place Labs: Chemistries: Last 72 Hours (or 3 results): Recent Labs Basename 12/06/10 0541 12/05/10 0645 12/04/10 0645 NA 133* 135 139 K 3.8 3.7 3.5 CL 100 101 104 BICARB 26 24 27 BUN 16 13 13 CR 0.79 0.90 0.81 CA 8.9 9.1 9.6 MG -- -- -- PO4 -- -- -- CBC with diff last 72 hours (or 3 results) Recent Labs Basename 12/06/10 0541 12/05/10 0645 12/04/10 0645 12/03/10 1810 WBC 8.1 8.0 11.1* -- HB 13.3* 14.2 14.6 -- HCT 39.0* 40.9* 42.6 -- PLT 137* 153 162 -- NEUTROPERC -- -- -- 74* BANDPCT -- -- -- -- LYMPHPERC -- -- -- 17* MONOPERC -- -- -- 8 BASOPERC -- -- -- 1 EOSPERC -- -- -- 1 Coagulation studies (most recent): No results found for this basename: INR:3,APPT:3 in the last 72 hours Liver function studies (most recent): Recent Labs Basename 12/03/10 1810 TP 7.2 ALB 4.6 TBILI 0.6 DIRBILI -- AST 19 ALT 25 AP 80 Assessment and Plan: 45y M with bilateral otitis externa, left mastoid and middle ear opacification on CT scan, nausea and dehydration, multiple medical comorbidities. Overall improving today -continue ciprodex drops -agreed with plan for 6 weeks of cefipime therapy. However, some concern that patient will not be compliant with this therapy. -likely discharge today pending arrangement of home therapy. Follow up in otology clinic i n 1-2 weeks, call [phone] for appointment. Hector Read MD PhD [facility] Dept. of Otolaryngology Nancy Chou MD - 12/05/2010 12:49 PM PDT MEDICINE ATTENDING PROGRESS NOTE ADMIT DATE: 12/03/2010 4:38 PM TODAY'S DATE: 12/05/2010 (HOSPITAL DAY 2) I personally interviewed the patient, performed the newell elements of the physical examinatio n, have developed an updated assessment and plan together with the resident, Dr. Daigle/MS 3 Nela. Interval Hx: Started abx last night. Tolerated cephalosporin fine. No new complaints today. Still c/o pain all over. Also endorses feeling better since lorazepam restarted. No further vomiting. Some nausea still. Exam notable for: BP 128/66 | Pulse 99 | Temp 36.7 C (98 F) | RR 20 | Ht 1.848 m (6' 0.75") | SpO2 95% Calmer appearing, pleasant, no distress Ears packed Unchanged exam Labs/imaging notable for: WBC down to 8 Assessment/Plans: Patient Active Hospital Problem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 12/06/2010 | | Results for this | | | e | 6:00 AM | | procedure are in the | | | | PDT | | results section. | + +--------+ + + + | BASIC METABOLIC SET | Routin | 12/06/2010 | | Results for this | | (NA, K, CL, TCO2, | e | 5:41 AM | | procedure are in the | | BUN, CR, GLU, CA) | | PDT | | results section. | + +--------+ + + + | CBC ONLY | Routin | 12/06/2010 | | Results for this | | | e | 5:41 AM | | procedure are in the | | | | PDT | | results section. | + +--------+ + + + | RESP CARE THERAPY | Routin | 12/05/2010 | | Results for this | | | e | 9:00 PM | | procedure are in the | | | | PDT | | results section. | + +--------+ + + + | X-RAY PORTABLE CHEST | Urgent | 12/05/2010 | | Results for this | | 1 VIEW | | 3:26 PM | | procedure are in the | | | | PDT | | results section. | + +--------+ + + + | CULTURE, SPUTUM | Routin | 12/05/2010 | | Results for this | | | e | 2:26 PM | | procedure are in the | | | | PDT | | results section. | + +--------+ + + + | CAPILLARY BLOOD | Routin | 12/05/2010 | | Results for this | | GLUCOSE (NO CHG), | e | 6:53 AM | | procedure are in the | | POC | | PDT | | results section. | + +--------+ + + + | BASIC METABOLIC SET | Routin | 12/05/2010 | | Results for this | | (NA, K, CL, TCO2, | e | 6:45 AM | | procedure are in the | | BUN, CR, GLU, CA) | | PDT | | results section. | + +--------+ + + + | HIV-1,2 AB/HIV-1 P24 | Routin | 12/05/2010 | | Results for this | | AG SCRN | e | 6:45 AM | | procedure are in the | | | | PDT | | results section. | + +--------+ + + + | IGG, SERUM | Routin | 12/05/2010 | | Results for this | | | e | 6:45 AM | | procedure are in the | | | | PDT | | results section. | + +--------+ + + + | IGA, SERUM | Routin | 12/05/2010 | | Results for this | | | e | 6:45 AM | | procedure are in the | | | | PDT | | results section. | + +--------+ + + + | C-REACTIVE PROTEIN | Routin | 12/05/2010 | | Results for this | | | e | 6:45 AM | | procedure are in the | | | | PDT | | results section. | + +--------+ + + + | CBC ONLY | Routin | 12/05/2010 | | Results for this | | | e | 6:45 AM | | procedure are in the | | | | PDT | | results section. | + +--------+ + + + | SEDIMENTATION RATE | Routin | 12/05/2010 | | Results for this | | | e | 6:45 AM | | procedure are in the | | | | PDT | | results section. | + +--------+ + + + | CAPILLARY BLOOD | Routin | 12/04/2010 | | Results for this | | GLUCOSE (NO CHG), | e | 9:32 PM | | procedure are in the | | POC | | PDT | | results section. | + +--------+ + + + | CAPILLARY BLOOD | Routin | 12/04/2010 | | Results for this | | GLUCOSE (NO CHG), | e | 7:39 PM | | procedure are in the | | POC | | PDT | | results section. | + +--------+ + + + | X-RAY ABDOMEN 2 | Routin | 12/04/2010 | | Results for this | | VIEWS | e | 5:27 PM | | procedure are in the | | | | PDT | | results section. | + +--------+ + + + | CAPILLARY BLOOD | Routin | 12/04/2010 | | Results for this | | GLUCOSE (NO CHG), | e | 8:05 AM | | procedure are in the | | POC | | PDT | | results section. | + +--------+ + + + | BASIC METABOLIC SET | Routin | 12/04/2010 | | Results for this | | (NA, K, CL, TCO2, | e | 6:45 AM | | procedure are in the | | BUN, CR, GLU, CA) | | PDT | | results section. | + +--------+ + + + | CBC ONLY | Routin | 12/04/2010 | | Results for this | | | e | 6:45 AM | | procedure are in the | | | | PDT | | results section. | + +--------+ + + + | UA, DIPSTICK ONLY | Routin | 12/04/2010 | | Results for this | | | e | 4:57 AM | | procedure are in the | | | | PDT | | results section. | + +--------+ + + + | URINE, MICROSCOPIC | Routin | 12/04/2010 | | Results for this | | EXAM | e | 4:57 AM | | procedure are in the | | | | PDT | | results section. | + +--------+ + + + | URINE SCREEN FOR | Routin | 12/04/2010 | | Results for this | | CULTURE | e | 4:57 AM | | procedure are in the | | | | PDT | | results section. | + +--------+ + + + | CULTURE, URINE BACTI | Routin | 12/04/2010 | | Results for this | | | e | 4:57 AM | | procedure are in the | | | | PDT | | results section. | + +--------+ + + + | RESP CARE THERAPY | Routin | 12/04/2010 | | Results for this | | | e | 2:06 AM | | procedure are in the | | | | PDT | | results section. | + +--------+ + + + | X-RAY CHEST 2 VIEW | Routin | 12/04/2010 | | Results for this | | | e | 12:19 AM | | procedure are in the | | | | PDT | | results section. | + +--------+ + + + | CULTURE, BLOOD BACTI | Routin | 12/03/2010 | | Results for this | | & YEAST | e | 10:36 PM | | procedure are in the | | | | PDT | | results section. | + +--------+ + + + | CULTURE, BLOOD BACTI | Routin | 12/03/2010 | | Results for this | | & YEAST | e | 10:30 PM | | procedure are in the | | | | PDT | | results section. | + +--------+ + + + | CAPILLARY BLOOD | Routin | 12/03/2010 | | Results for this | | GLUCOSE (NO CHG), | e | 9:43 PM | | procedure are in the | | POC | | PDT | | results section. | + +--------+ + + + | DIFFERENTIAL | Routin | 12/03/2010 | | Results for this | | | e | 6:10 PM | | procedure are in the | | | | PDT | | results section. | + +--------+ + + + | CBC, WITH | Routin | 12/03/2010 | | Results for this | | DIFFERENTIAL | e | 6:10 PM | | procedure are in the | | | | PDT | | results section. | + +--------+ + + + | COMPLETE METABOLIC | Routin | 12/03/2010 | | Results for this | | SET | e | 6:10 PM | | procedure are in the | | (NA,K,CL,CO2,BUN,CRE | | PDT | | results section. | | AT,GLUC,CA,AST,ALT,B | | | | | | TERRY TOTAL,ALK | | | | | | PHOS,ALB,PROT TOTAL) | | | | | + +--------+ + + + documented in this encounter Results PROCEDURE NOTE (08/31/2015 6:50 AM PST)CAPILLARY BLOOD GLUCOSE, POC (12/06/2010 10:03 AM P DT) + +---------+ + + + | Component | Value | Ref Range | Performed | Pathologist | | | | | At | Signature | + +---------+ + + + | BLOOD | 124 (H) | 60 - 99 mg/dL | [facility] - | | | GLUCOSE, | | | [facility] | | | POC | | | [facility] | | | | | | OF CARE | | | | | | TESTS | | + +---------+ + + + + + | Specimen | + + | | + + + + + + + | Performing | Address | City/State/Zipcode | Phone Number | | Organization | | | | + + + + + | [facility] | [address] | [place], [place] | | | [facility] | [address] | [address] | | | TESTS | | | | + + + + + RESP CARE THERAPY (12/06/2010 6:00 AM PDT) + + + + + + | Component | Value | Ref Range | Performed | Pathologist | | | | | At | Signature | + + + + + + | RESPIRATORY | Order _ Neb/IPPB/Cneb/ | | [facility] | | | CARE | Exchange therapy | | RESPIRATORY | | | | omitted. Reason : | | THERAPY | | | | Nebulizer supply | | | | | | exchange complete. - | | | | | | Time due:Electronically | | | | | | Signed by: Ania | | | | | | HALEY Sun | | | | + + + + + + + + | Specimen | + + | | + + + + + + + | Performing | Address | City/State/Zipcode | Phone Number | | Organization | | | | + + + + + | [facility] | [address] | [place], [place] | | | THERAPY | [address] | [address] | | + + + + + JORDI ONLY (12/06/2010 5:41 AM PDT) + + + + + + | Component | Value | Ref Range | Performed | Pathologist | | | | | At | Signature | + + + + + + | WHITE CELL | 8.1 | 4.4 - 11.0 K/cu | [facility] | | | COUNT | | mm | DEPARTMENT | | | | | | OF | | | | | | PATHOLOGY | | + + + + + + | RED CELL | 4.26 (L) | 4.50 - 5.90 | [facility] | | | COUNT | | M/cu mm | DEPARTMENT | | | | | | OF | | | | | | PATHOLOGY | | + + + + + + | HEMOGLOBIN | 13.3 (L) | 13.5 - 17.5 | [facility] | | | | | g/dL | DEPARTMENT | | | | | | OF | | | | | | PATHOLOGY | | + + + + + + | HEMATOCRIT | 39.0 (L) | 41.0 - 53.0 % | [facility] | | | | | | DEPARTMENT | | | | | | OF | | | | | | PATHOLOGY | | + + + + + + | MCV | 91.7 | 80.0 - 96.0 fL | [facility] | | | | | | DEPARTMENT | | | | | | OF | | | | | | PATHOLOGY | | + + + + + + | MCHC | 34.0 | 33.4 - 35.5 | [facility] | | | | | g/dL | DEPARTMENT | | | | | | OF | | | | | | PATHOLOGY | | + + + + + + | RDW | 13.7 | 11.5 - 15.0 % | [facility] | | | | | | DEPARTMENT | | | | | | OF | | | | | | PATHOLOGY | | + + + + + + | PLATELET | 137 (L) | 150 - 400 K/cu | [facility] [...] | + + + + + | [facility] | [address] | [place] [address] | | | PATHOLOGY | [address] | | | + + + + + BASIC METABOLIC SET (NA, K, CL, TCO2, BUN, CR, GLU, CA) (12/06/2010 5:41 AM PDT) + +---------+ + + + | Component | Value | Ref Range | Performed | Pathologist | | | | | At | Signature | + +---------+ + + + | GLUCOSE, | 157 (H) | 60 - 99 mg/dL | [facility] | | | PLASMA | | | DEPARTMENT | | | (LAB) | | | OF | | | | | | PATHOLOGY | | + +---------+ + + + | BUN, PLASMA | 16 | 6 - 20 mg/dL | [facility] | | | (LAB) | | | DEPARTMENT | | | | | | OF | | | | | | PATHOLOGY | | + +---------+ + + + | CREATININE | 0.79 | 0.70 - 1.30 | [facility] | | | PLASMA | | mg/dL | DEPARTMENT | | | (LAB) | | | OF | | | | | | PATHOLOGY | | + +---------+ + + + | SODIUM, | 133 (L) | 134 - 143 | [facility] | | | PLASMA | | mmol/L | DEPARTMENT | | | (LAB) | | | OF | | | | | | PATHOLOGY | | + +---------+ + + + | POTASSIUM, | 3.8 | 3.4 - 5.0 | [facility] | | | PLASMA | | mmol/L | DEPARTMENT | | | (LAB) | | | OF | | | | | | PATHOLOGY | | + +---------+ + + + | CHLORIDE, | 100 | 97 - 108 mmol/L | [facility] | | | PLASMA | | | DEPARTMENT | | | (LAB) | | | OF | | | | | | PATHOLOGY | | + +---------+ + + + | TOTAL CO2, | 26 | 22 - 29 mmol/L | [facility] | | | PLASMA | | | DEPARTMENT | | | (LAB) | | | OF | | | | | | PATHOLOGY | | + +---------+ + + + | CALCIUM, | 8.9 | 8.6 - 10.2 | [facility] | | | PLASMA | | mg/dL | DEPARTMENT | | | (LAB) | | | OF | | | | | | PATHOLOGY | | + +---------+ + + + | ANION GAP | 7 | 4 - 11 mmol/L | [facility] | | | | | | DEPARTMENT | | | | | | OF | | | | | | PATHOLOGY | | + +---------+ + + + + + | Specimen | + + | Blood - Blood | + + + + + + + | Performing | Address | City/State/Zipcode | Phone Number | | Organization | | | | + + + + + | [facility] | [address] | [place] [address] | | | PATHOLOGY | [address] | | | + + + + + RESP CARE THERAPY (12/05/2010 9:00 PM PDT) + + + + + + | Component | Value | Ref Range | Performed | Pathologist | | | | | At | Signature | + + + + + + | RESPIRATORY | Nebulizer treatment was | | [facility] | | | CARE | not given. The patient | | RESPIRATORY | | | | was assessed. Therapy | | THERAPY | | | | wasnot indicated. | | | | | | Electronically Signed | | | | | | by: Ania Sun, | | | | | | LEAD INJECTION MOLD TECHNICIAN | | | | + + + + + + + + | Specimen | + + | | + + + + + + + | Performing | Address | City/State/Zipcode | Phone Number | | Organization | | | | + + + + + | [facility] | [address] | [place], [place] | | | THERAPY | [facility] | [phone] | | + + + + + X-RAY PORTABLE CHEST 1 VIEW (12/05/2010 3:26 PM PDT) + + + + + + | Component | Value | Ref Range | Performed | Pathologist | | | | | At | Signature | + + + + + + | X-RAY | EXAM: AP Chest | | | | | PORTABLE | COMPARISON: 12/04/10. | | | | | CHEST 1 | INDICATION: Right PICC | | | | | VIEW | FINDINGS: Right PICC is | | | | | | in place with the tip | | | | | | extending to the | | | | | | regionof the cavoatrial | | | | | | junction. Cardiac | | | | | | silhouette is | | | | | | normal. There isno | | | | | | pulmonary edema or | | | | | | pneumonia. No | | | | | | pneumothorax is seen. | | | | | | IMPRESSION: Right PICC | | | | | | as above. Attending | | | | | | Radiologists: Rishi Aquino | | | | | | Adelaida MunguiaAuthor: | | | | | | Rishi Munguia M.D. I | | | | | | have personally viewed | | | | | | this procedure/exam, | | | | | | reviewed this report,and | | | | | | made changes to it | | | | | | where appropriate. | | | | | | Final/Electronically | | | | | | signed / Rishi Aquino | | | | | | Ezra 12/05/2010 | | | | | | 15:56 PM | | | | + + + + + + + + | Specimen | + + | | + + + +---------+ + + | Performing | Address | City/State/Zipcode | Phone Number | | Organization | | | | + +---------+ + + | [facility] DEPARTMENT OF | | | | | RADIOLOGY | | | | + +---------+ + + CULTURE, SPUTUM (12/05/2010 2:26 PM PDT) + + + + + + | Component | Value | Ref Range | Performed | Pathologist | | | | | At | Signature | + + + + + + | SOURCE BODY | Sputum Sputum | | [facility] | | | SITE | | | REGIONAL | | | | | | LAB-MICRO | | + + + + + + | CULTURE | Respiratory | | [facility] | | | RESULT | Culture | | REGIONAL | | | | Source...............: | | LAB-MICRO | | | | Sputum Sputum [facility] Gram | | | | | | Stain...........: No | | | | | | Squamous epithelial | | | | | | cells | | | | | | | | | | | | | | | | | | Rare PMN's | | | | | | | | | | | | | | | | | | Rare Mixed seb | | | | | | Culture: | | | | | | Final Report: No | | | | | | growth Final Report | | | | + + + + + + + + | Specimen | + + | Sputum - Sputum | + + + + + + + | Performing | Address | City/State/Zipcode | Phone Number | | Organization | | | | + + + + + | [facility] | [address] | [place] [address] | | | LAB-MICRO | | | | + + + + + CAPILLARY BLOOD GLUCOSE, POC (12/05/2010 6:53 AM PDT) + +-------+ + + + | Component | Value | Ref Range | Performed | Pathologist | | | | | At | Signature | + +-------+ + + + | BLOOD | 96 | 60 - 99 mg/dL | [facility] | | | GLUCOSE, | | | [facility] | | | POC | | | [facility] | | [...] + + + + + | [facility] | [address] | [place], [place] | | | [facility] | [facility] | [address] | | | TESTS | | | | + + + + + CBC ONLY (12/05/2010 6:45 AM PDT) + + + + + + | Component | Value | Ref Range | Performed | Pathologist | | | | | At | Signature | + + + + + + | WHITE CELL | 8.0 | 4.4 - 11.0 K/cu | [facility] | | | COUNT | | mm | DEPARTMENT | | | | | | OF | | | | | | PATHOLOGY | | + + + + + + | RED CELL | 4.48 (L) | 4.50 - 5.90 | [facility] | | | COUNT | | M/cu mm | DEPARTMENT | | | | | | OF | | | | | | PATHOLOGY | | + + + + + + | HEMOGLOBIN | 14.2 | 13.5 - 17.5 | [facility] | | | | | g/dL | DEPARTMENT | | | | | | OF | | | | | | PATHOLOGY | | + + + + + + | HEMATOCRIT | 40.9 (L) | 41.0 - 53.0 % | [facility] | | | | | | DEPARTMENT | | | | | | OF | | | | | | PATHOLOGY | | + + + + + + | MCV | 91.3 | 80.0 - 96.0 fL | [facility] | | | | | | DEPARTMENT | | | | | | OF | | | | | | PATHOLOGY | | + + + + + + | MCHC | 34.8 | 33.4 - 35.5 | [facility] | | | | | g/dL | DEPARTMENT | | | | | | OF | | | | | | PATHOLOGY | | + + + + + + | RDW | 13.9 | 11.5 - 15.0 % | [facility] | | | | | | DEPARTMENT | | | | | | OF | | | | | | PATHOLOGY | | + + + + + + | PLATELET | 153 | 150 - 400 K/cu | [facility] [...] + + | [facility] | [address] | [place] [address] | | | PATHOLOGY | [address] | | | + + + + + BASIC METABOLIC SET (NA, K, CL, TCO2, BUN, CR, GLU, CA) (12/05/2010 6:45 AM PDT) + +-------+ + + + | Component | Value | Ref Range | Performed | Pathologist | | | | | At | Signature | + +-------+ + + + | GLUCOSE, | 92 | 60 - 99 mg/dL | [facility] | | | PLASMA | | | DEPARTMENT | | | (LAB) | | | OF | | | | | | PATHOLOGY | | + +-------+ + + + | BUN, PLASMA | 13 | 6 - 20 mg/dL | [facility] | | | (LAB) | | | DEPARTMENT | | | | | | OF | | | | | | PATHOLOGY | | + +-------+ + + + | CREATININE | 0.90 | 0.70 - 1.30 | [facility] | | | PLASMA | | mg/dL | DEPARTMENT | | | (LAB) | | | OF | | | | | | PATHOLOGY | | + +-------+ + + + | SODIUM, | 135 | 134 - 143 | [facility] | | | PLASMA | | mmol/L | DEPARTMENT | | | (LAB) | | | OF | | | | | | PATHOLOGY | | + +-------+ + + + | POTASSIUM, | 3.7 | 3.4 - 5.0 | [facility] | | | PLASMA | | mmol/L | DEPARTMENT | | | (LAB) | | | OF | | | | | | PATHOLOGY | | + +-------+ + + + | CHLORIDE, | 101 | 97 - 108 mmol/L | [facility] | | | PLASMA | | | DEPARTMENT | | | (LAB) | | | OF | | | | | | PATHOLOGY | | + +-------+ + + + | TOTAL CO2, | 24 | 22 - 29 mmol/L | [facility] | | | PLASMA | | | DEPARTMENT | | | (LAB) | | | OF | | | | | | PATHOLOGY | | + +-------+ + + + | CALCIUM, | 9.1 | 8.6 - 10.2 | [facility] | | | PLASMA | | mg/dL | DEPARTMENT | | | (LAB) | | | OF | | | | | | PATHOLOGY | | + +-------+ + + + | ANION GAP | 10 | 4 - 11 mmol/L | [facility] | | | | | | DEPARTMENT | | | | | | OF | | | | | | PATHOLOGY | | + +-------+ + + + + + | Specimen | + + | Blood - Blood | + + + + + + + | Performing | Address | City/State/Zipcode | Phone Number | | Organization | | | | + + + + + | [facility] | [address] | [place] [address] | | | PATHOLOGY | [address] | | | + + + + + IGA, SERUM (12/05/2010 6:45 AM PDT) + +-------+ + + + | Component | Value | Ref Range | Performed | Pathologist | | | | | At | Signature | + +-------+ + + + | IGA SERUM | 158 | 70 - 400 mg/dl | [facility] | | | | | | REGIONAL | | | | | | LABORATORY | | + +-------+ + + + + + | Specimen | + + | Blood - Blood | + + + + + | Narrative | Performed At | + + + | [facility] | [facility] | | [facility] [address] | REGIONAL | | [place] [address] | LABORATORY | + + + + + + + + | Performing | Address | City/State/Zipcode | Phone Number | | Organization | | | | + + + + + | [facility] | [address] | [place] [address] | | | LABORATORY | | | | + + + + + IGG, SERUM (12/05/2010 6:45 AM PDT) + +---------+ + + + | Component | Value | Ref Range | Performed | Pathologist | | | | | At | Signature | + +---------+ + + + | IGG SERUM | 676 (L) | 700 - 1600 | [facility] | | | | | mg/dL | REGIONAL | | | | | | LABORATORY | | + +---------+ + + + + + | Specimen | + + | Blood - Blood | + + + + + | Narrative | Performed At | + + + | [facility] | [facility] | | [facility] [address] | REGIONAL | | [place] [address] | LABORATORY | + + + + + + + + | Performing | Address | City/State/Zipcode | Phone Number | | Organization | | | | + + + + + | [facility] | [address] | [place] [address] | | | LABORATORY | | | | + + + + + HIV-1,2 AB/HIV-1 P24 AG SCRN, SERUM (12/05/2010 6:45 AM PDT) + + + + + + | Component | Value | Ref Range | Performed | Pathologist | | | | | At | Signature | + + + + + + | HIV-1,2 | NonreactiveComment: | | [facility] | | | AB/HIV-1 | Reference | | DEPARTMENT | | | P24 AG | Range: Non-Reactive: | | OF | | | SCREEN | H | | PATHOLOGY | | | | IV-1 p24 Ag and HIV-1,2 | | | | | | Ab | | | | | | | | | | | | not detected. | | | | | | Presumptive | | | | | | Reactive: Presump | | | | | | tive evidence of HIV-1 | | | | | | p24 Ag and/or HIV-1,2 | | | | | | Ab; Sample sent for | | | | | | confirmatory | | | | | | assay. However, the | | | | | | RT-PCR test for HIV is | | | | | | more sensitive | | | | | | and recommended for | | | | | | either confirmation or | | | | | | early detection. | | | | + + + + + + + + | Specimen | + + | Blood - Blood | + + + + + + + | Performing | Address | City/State/Zipcode | Phone Number | | Organization | | | | + + + + + | [facility] | [address] | [place] [address] | | | PATHOLOGY | [address] | | | + + + + + C-REACT PRTN (FOR INFLAMMATION) (12/05/2010 6:45 AM PDT) + +-------+ + + + | Component | Value | Ref Range | Performed | Pathologist | | | | | At | Signature | + +-------+ + + + | C-REACTIVE | < 0.5 | <0.6 mg/dl | [facility] | | | PROTEIN | | | REGIONAL | | | | | | LABORATORY | | + +-------+ + + + + + | Specimen | + + | Blood - Blood | + + + + + | Narrative | Performed At | + + + | [facility] ([facility]) | [facility] | | [facility] | REGIONAL | | [address] | LABORATORY | | [place] [address] | | + + + + + + + + | Performing | Address | City/State/Zipcode | Phone Number | | Organization | | | | + + + + + | [facility] | [address] | [place] [address] | | | LABORATORY | | | | + + + + + SEDIMENTATION RATE (12/05/2010 6:45 AM PDT) + +--------+ + + + | Component | Value | Ref Range | Performed | Pathologist | | | | | At | Signature | + +--------+ + + + | SEDIMENTATI | 16 (H) | <16 mm/hr | [facility] | | | ON RATE | | | DEPARTMENT | | | | | | OF | | | | | | PATHOLOGY | | + +--------+ + + + + + | Specimen | + + | Blood - Blood | + + + + + + + | Performing | Address | City/State/Zipcode | Phone Number | | Organization | | | | + + + + + | [facility] | [address] | [place] [address] | | | PATHOLOGY | [address] | | | + + + + + CAPILLARY BLOOD GLUCOSE, POC (12/04/2010 9:32 PM PDT) + +---------+ + + + | Component | Value | Ref Range | Performed | Pathologist | | | | | At | Signature | + +---------+ + + + | BLOOD | 130 (H) | 60 - 99 mg/dL | [facility] | | | GLUCOSE, | | | [facility] | | | POC | | | [facility] | | | | | | OF CARE | | | | | | TESTS | | + +---------+ + + + + + | Specimen | + + | | + + + + + + + | Performing | Address | City/State/Zipcode | Phone Number | | Organization | | | | + + + + + | [facility] | [address] | [place], [place] | | | [facility] | [address] | [address] | | | TESTS | | | | + + + + + CAPILLARY BLOOD GLUCOSE, POC (12/04/2010 7:39 PM PDT) + +-------+ + + + | Component | Value | Ref Range | Performed | Pathologist | | | | | At | Signature | + +-------+ + + + | BLOOD | 77 | 60 - 99 mg/dL | [facility] - | | | GLUCOSE, | | | [facility] | | | POC | | | [facility] | | | | | | OF [...] + + | [facility] | [address] | [place], [place] | | | [facility] | [facility] | [address] | | | TESTS | | | | + + + + + X-RAY ABDOMEN 2 VIEWS (12/04/2010 5:27 PM PDT) + + + + + + | Component | Value | Ref Range | Performed | Pathologist | | | | | At | Signature | + + + + + + | ABDOMEN, 2 | Supine and upright views | | | | | VIEWS | of the abdomen. | | | | | | History: | | | | | | Nausea/vomiting. | | | | | | Comparison: None | | | | | | available. IMPRESSION: | | | | | | There are air-filled | | | | | | loops of small bowel and | | | | | | colon, likelyreflecting | | | | | | ileus. No definite | | | | | | evidence of high-grade | | | | | | obstruction.Sitz markers | | | | | | versus hernia repair | | | | | | coils are seen. There is | | | | | | no freeair or portal | | | | | | venous gas. Attending | | | | | | Radiologists: Stefany Lindsay | | | | | | Adelaida HebertAuthor: | | | | | | Stefany Hebert M.D. | | | | | | I have personally viewed | | | | | | this procedure/exam, | | | | | | reviewed this report,and | | | | | | made changes to it | | | | | | where appropriate. | | | | | | Final/Electronically | | | | | | signed / Stefany Lindsay | | | | | | Emilee 12/04/2010 | | | | | | 19:10PM | | | | + + + + + + + + | Specimen | + + | | + + + +---------+ + + | Performing | Address | City/State/Zipcode | Phone Number | | Organization | | | | + +---------+ + + | [facility]PARTMENT OF | | | | | RADIOLOGY | | | | + +---------+ + + CAPILLARY BLOOD GLUCOSE, POC (12/04/2010 8:05 AM PDT) + +-------+ + + + | Component | Value | Ref Range | Performed | Pathologist | | | | | At | Signature | + +-------+ + + + | BLOOD | 95 | 60 - 99 mg/dL | [facility] - | | | GLUCOSE, | | | [place] | | | POC | | | [facility] | | [...] + + + + + | [facility] | [address] | [place], [place] | | | [facility] | [address] | [address] | | | TESTS | | | | + + + + + CBC ONLY (12/04/2010 6:45 AM PDT) + + + + + + | Component | Value | Ref Range | Performed | Pathologist | | | | | At | Signature | + + + + + + | WHITE CELL | 11.1 (H) | 4.4 - 11.0 K/cu | [facility] | | | COUNT | | mm | DEPARTMENT | | | | | | OF | | | | | | PATHOLOGY | | + + + + + + | RED CELL | 4.63 | 4.50 - 5.90 | [facility] | | | COUNT | | M/cu mm | DEPARTMENT | | | | | | OF | | | | | | PATHOLOGY | | + + + + + + | HEMOGLOBIN | 14.6 | 13.5 - 17.5 | [facility] | | | | | g/dL | DEPARTMENT | | | | | | OF | | | | | | PATHOLOGY | | + + + + + + | HEMATOCRIT | 42.6 | 41.0 - 53.0 % | [facility] | | | | | | DEPARTMENT | | | | | | OF | | | | | | PATHOLOGY | | + + + + + + | MCV | 92.2 | 80.0 - 96.0 fL | [facility] [...] + + + + | RDW | 13.6 | 11.5 - 15.0 % | [facility] | | | | | | DEPARTMENT | | | | | | OF | | | | | | PATHOLOGY | | + + + + + + | PLATELET | 162 | 150 - 400 [address] | [facility] [...] | + + + + + | [facility] | [address] | [place] [address] | | | PATHOLOGY | [address] | | | + + + + + BASIC METABOLIC SET (NA, K, CL, TCO2, BUN, CR, GLU, CA) (12/04/2010 6:45 AM PDT) + + + + + + | Component | Value | Ref Range | Performed | Pathologist | | | | | At | Signature | + + + + + + | GLUCOSE, | 99 | 60 - 99 mg/dL | [facility] | | | PLASMA | | | DEPARTMENT | | | (LAB) | | | OF | | | | | | PATHOLOGY | | + + + + + + | BUN, PLASMA | 13 | 6 - 20 mg/dL | [facility] | | | (LAB) | | | DEPARTMENT | | | | | | OF | | | | | | PATHOLOGY | | + + + + + + | CREATININE | 0.81 | 0.70 - 1.30 | [facility] | | | PLASMA | | mg/dL | DEPARTMENT | | | (LAB) | | | OF | | | | | | PATHOLOGY | | + + + + + + | SODIUM, | 139 | 134 - 143 | [facility] | | | PLASMA | | mmol/L | DEPARTMENT | | | (LAB) | | | OF | | | | | | PATHOLOGY | | + + + + + + | POTASSIUM, | 3.5 | 3.4 - 5.0 | [facility] | | | PLASMA | | mmol/L | DEPARTMENT | | | (LAB) | | | OF | | | | | | PATHOLOGY | | + + + + + + | CHLORIDE, | 104 | 97 - 108 mmol/L | [facility] | | | PLASMA | | | DEPARTMENT | | | (LAB) | | | OF | | | | | | PATHOLOGY | | + + + + + + | TOTAL CO2, | 27Comment: New Total | 22 - 29 mmol/L | [facility] | | | PLASMA | CO2 reference range | | DEPARTMENT | | | (LAB) | effective 06/18/10. | | OF | | | | | | PATHOLOGY | | + + + + + + | CALCIUM, | 9.6 | 8.6 - 10.2 | [facility] | | | PLASMA | | mg/dL | DEPARTMENT | | | (LAB) | | | OF | | | | | | PATHOLOGY | | + + + + + + | ANION GAP | [...] + + | [facility] DEPARTMENT OF | [address] | [place] [address] | | | PATHOLOGY | [address] | | | + + + + + CULTURE, URINE BACTI (12/04/2010 4:57 AM PDT) + + + + + + | Component | Value | Ref Range | Performed | Pathologist | | | | | At | Signature | + + + + + + | SOURCE BODY | Clean catch | | [facility] | | | SITE | | | REGIONAL | | | | | | LAB-MICRO | | + + + + + + | CULTURE | Urine Culture | | [facility] | | | RESULT | | | REGIONAL | | | | Source...............: | | LAB-MICRO | | | | Clean catch | | | | | | Culture: Approx | | | | | | 40,000 | | | | | | col/ml Enterococcus | | | | | | species | | | | | | Final ID | | | | | | | | | | | | DORIS | | | | | | Ampicillin | | | | | | S | | | | | | Ciprofloxacin | | | | | | R | | | | | | Nitrofurantoin | | | | | | S | | | | | | Tetracycline | | | | | | R | | | | | | Vancomycin | | | | | | S Final | | | | | | Report | | | | | | Resulted: 05/ | | | | | | / | | | | | | RLB | | | | | | ([facility]) | | | | | | [address] | | | | | | [address] | | | | | | [address] | | | | [address] | | | | | | [place] | | | | | | , [place] [address] | | | | + + + + + + + + | Specimen | + + | | + + + + + + + | Performing | Address | City/State/Zipcode | Phone Number | | Organization | | | | + + + + + | [facility] | [address] | [place] [address] | | | LAB-MICRO | | | | + + + + + UASRUTHI ONLY (12/04/2010 4:57 AM PDT) + + + + + + | Component | Value | Ref Range | Performed | Pathologist | | | | | At | Signature | + + + + + + | COLOR(UR) | Straw | | [facility] | | | | | | DEPARTMENT | | | | | | OF | | | | | | PATHOLOGY | | + + + + + + | APPEARANCE | Clear | | [facility] | | | | | | DEPARTMENT | | | | | | OF | | | | | | PATHOLOGY | | + + + + + + | GLUCOSE(UR) | Negative | mg/dL | [facility] | | | | | | DEPARTMENT | | | | | | OF | | | | | | PATHOLOGY | | + + + + + + | BILIRUBIN | Negative | | [facility] | | | | | | DEPARTMENT | | | | | | OF | | | | | | PATHOLOGY | | + + + + + + | KETONES | Negative | mg/dL | [facility] | | | | | | DEPARTMENT | | | | | | OF | | | | | | PATHOLOGY | | + + + + + + | SPECIFIC | 1.020 | 1.005 - 1.030 | [facility] | | | GRAVITY | | | DEPARTMENT | | | | | | OF | | | | | | PATHOLOGY | | + + + + + + | BLOOD | Negative | | [facility] | | | | | | DEPARTMENT | | | | | | OF | | | | | | PATHOLOGY | | + + + + + + | PH(UR) | 6.0 | 5.0 - 8.0 | [facility] | | | | | | DEPARTMENT | | | | | | OF | | | | | | PATHOLOGY | | + + + + + + | PROTEIN(LAB | Negative | mg/dL | [facility] | | | ) | | | DEPARTMENT | | | | | | OF | | | | | | PATHOLOGY | | + + + + + + | UROBILINOGE | 0.2 | 0 - 0.2 AUBRIE | [facility] | | | N | | UNITS | DEPARTMENT | | | | | | OF | | | | | | PATHOLOGY | | + + + + + + | NITRITES | Negative | Negative | [facility] | | | | | | DEPARTMENT | | | | | | OF | | | | | | PATHOLOGY | | + + + + + + | LEUKOCYTE | Negative | Negative | [facility] | | | ESTERASE | | | DEPARTMENT | | | | | | OF | | | | | | PATHOLOGY | | + + + + + + + + | Specimen | + + | Urine - Urine | + + + + + + + | Performing | Address | City/State/Zipcode | Phone Number | | Organization | | | | + + + + + | [facility] | [address] | [place] [address] | | | PATHOLOGY | [address] | | | + + + + + URINE, MICROSCOPIC EXAM (12/04/2010 4:57 AM PDT) + +---------+ + + + | Component | Value | Ref Range | Performed | Pathologist | | | | | At | Signature | + +---------+ + + + | SQUAMOUS | Few (A) | /hpf | [facility] | | | EPITHELIAL | | | DEPARTMENT | | | | | | OF | | | | | | PATHOLOGY | | + +---------+ + + + | NON-SQUAMOU | None | /hpf | [facility] | | | S EPITH | | | DEPARTMENT | | | | | | OF | | | | | | PATHOLOGY | | + +---------+ + + + | RED CELLS | None | 0 - 3 /hpf | [facility] | | | | | | DEPARTMENT | | | | | | OF | | | | | | PATHOLOGY | | + +---------+ + + + | WHITE CELLS | 0-1 | 0 - 5 /hpf | [facility] | | | | | | DEPARTMENT | | | | | | OF | | | | | | PATHOLOGY | | + +---------+ + + + | BACTERIA | Few (A) | /hpf | [facility] | | | | | | DEPARTMENT | | | | | | OF | | | | | | PATHOLOGY | | + +---------+ + + + | MUCOUS | Few (A) | /hpf | [facility] | | | | | | DEPARTMENT | | | | | | OF | | | | | | PATHOLOGY | | + +---------+ + + + | HYALINE | None | 0 - 1 /lpf | [facility] | | | CASTS | | | DEPARTMENT | | | | | | OF | | | | | | PATHOLOGY | | + +---------+ + + + | GRANULAR | None | /lpf | [facility] | | | CASTS | | | DEPARTMENT | | | | | | OF | | | | | | PATHOLOGY | | + +---------+ + + + | CELLULAR | None | /lpf | [facility] | | | CASTS | | | DEPARTMENT | | | | | | OF | | | | | | PATHOLOGY | | + +---------+ + + + | AMORPHOUS | None | /hpf | [facility] | | | CRYSTALS | | | DEPARTMENT | | | | | | OF | | | | | | PATHOLOGY | | + +---------+ + + + | CALCIUM | None | /hpf | [facility] | | | OXALATE | | | DEPARTMENT | | | SIMA | | | OF | | | | | | PATHOLOGY | | + +---------+ + + + | URIC ACID | None | /hpf | [facility] | | | CRYSTALS | | | DEPARTMENT | | | | | | OF | | | | | | PATHOLOGY | | + +---------+ + + + | TRIPLE P04 | None | /hpf | [facility] | | | CRYSTALS | | | DEPARTMENT | | | | | | OF | | | | | | PATHOLOGY | | + +---------+ + + + | YEAST (LAB) | None | /hpf | [facility] | | | | | | DEPARTMENT | | | | | | OF | | | | | | PATHOLOGY | | + +---------+ + + + | TRICHOMONAS | None | /hpf | [facility] | | | | | | DEPARTMENT | | | | | | OF | | | | | | PATHOLOGY | | + +---------+ + + + + + | Specimen | + + | Urine - Urine | + + + + + + + | Performing | Address | City/State/Zipcode | Phone Number | | Organization | | | | + + + + + | [facility]MENT [facility] | [address] | [place] [address] | | | PATHOLOGY | [address] | | | + + + + + URINE SCREEN FOR CULTURE (12/04/2010 4:57 AM PDT) + + + + + + | Component | Value | Ref Range | Performed | Pathologist | | | | | At | Signature | + + + + + + | CULT, URINE | Negative for Nitrites | | [facility] | | | SCREEN | and Leukocyte Esterase. | | DEPARTMENT | | | | Specimen sent for | | OF | | | | culture based on | | PATHOLOGY | | | | microscopic findings. | | | | + + + + + + + + | Specimen | + + | Urine - Urine | + + + + + + + | Performing | Address | City/State/Zipcode | Phone Number | | Organization | | | | + + + + + | [facility] DEPARTMENT | [address] | [place] [address] | | | PATHOLOGY | [address] | | | + + + + + RESP CARE THERAPY (12/04/2010 2:06 AM PDT) + + + + + + | Component | Value | Ref Range | Performed | Pathologist | | | | | At | Signature | + + + + + + | RESPIRATORY | : History and Assessment | | [facility] | | | CARE | : OTITIS EXTERNA | | RESPIRATORY | | | | Pulmonary problems: | | THERAPY | | | | Current problems | | | | | | include, history of | | | | | | chronicobstructive | | | | | | pulmonary disease | | | | | | history of reactive | | | | | | airways disease .Smoking | | | | | | history: The patient | | | | | | currently smokes one or | | | | | | more packs per | | | | | | day.Results of recent | | | | | | Chest X-ray: were not | | | | | | available. No CXR has | | | | | | been takenwithin the | | | | | | last 72 hours.Pain: | | | | | | Patients pain assessed | | | | | | and was a 7 on a scale | | | | | | of 0-10. Patient is | | | | | | nottolerating current | | | | | | level of pain, RN | | | | | | notified.Oxygen | | | | | | requirement: Patient was | | | | | | on room air with an | | | | | | oxygen saturation of | | | | | | 99%.Heart rate: 85 beats | | | | | | per minuteRespiratory | | | | | | rate: 22 breaths per | | | | | | minuteTemperature: 36.9 | | | | | | ? C.Breathsounds:wheeze | | | | | | upper airway .Cough and | | | | | | sputum | | | | | | production:Patient had a | | | | | | non-productive cough. | | | | | | Treatments GivenNo | | | | | | therapy indicated at | | | | | | this time. Respiratory | | | | | | Acuity and Protocol | | | | | | PlanA respiratory | | | | | | evaluation has been | | | | | | completed. Based on this | | | | | | assesmentInhaled | | | | | | medication will be | | | | | | delivered by RTaccording | | | | | | to the patient's | | | | | | homeregimen under the | | | | | | bronchodilator protocol. | | | | | | Electronically | | | | | | Signed by: Cas Palacios, | | | | | | LEAD INJECTION MOLD TECHNICIAN | | | | + + + + + + + + | Specimen | + + | | + + + + + + + | Performing | Address | City/State/Zipcode | Phone Number | | Organization | | | | + + + + + | [facility] | [address] | [place], [place] | | | THERAPY | [address] | [address] | | + + + + + X-RAY CHEST 2 VIEW (12/04/2010 12:19 AM PDT) + + + + + + | Component | Value | Ref Range | Performed | Pathologist | | | | | At | Signature | + + + + + + | CHEST, 2 | STUDY: CHEST 2 VIEWS, | | | | | VIEWS [place] | 12/04/10 00:19:00 | | | | | STEREO | COMPARISON: None | | | | | | available HISTORY: | | | | | | Bilateral otitis | | | | | | externa. FINDINGS: Mild | | | | | | central airway | | | | | | thickening is | | | | | | present. The lungs | | | | | | areotherwise | | | | | | clear. No | | | | | | pneumothorax, pleural | | | | | | effusion nor acute | | | | | | osseousabnormality. | | | | | | IMPRESSION: Mild central | | | | | | airway thickening which | | | | | | could reflect | | | | | | bronchitis | | | | | | versusasthma/reactive | | | | | | airway | | | | | | disease. Otherwise | | | | | | clear lungs. Attending | | | | | | Radiologists: Ferny | | | | | | Adelaida LopezAuthor: | | | | | | Ferny Lopez M.D. I | | | | | | have personally viewed | | | | | | this procedure/exam, | | | | | | reviewed this report,and | | | | | | made changes to it | | | | | | where appropriate. | | | | | | Final/Electronically | | | | | | signed / Chichov | | | | | | John 12/04/2010 10:26 | | | | | | AM | | | | + + + + + + + + | Specimen | + + | | + + + +---------+ + + | Performing | Address | City/State/Zipcode | Phone Number | | Organization | | | | + +---------+ + + | [facility] DE[facility]MENT OF | | | | | RADIOLOGY | | | | + +---------+ + + CULTURE, BLOOD BACTI & YEAST (12/03/2010 10:36 PM PDT) + + + + + + | Component | Value | Ref Range | Performed | Pathologist | | | | | At | Signature | + + + + + + | SOURCE BODY | Left Antecubital | | [facility] | | | SITE | | | REGIONAL | | | | | | LAB-MICRO | | + + + + + + | CULTURE | Blood Culture | | [facility] | | | RESULT | | | REGIONAL | | | | Source.................. | | LAB-MICRO | | | | : Left Antecubital | | | | | | | | | | | | Result.................. | | | | | | . Final: No growth at 5 | | | | | | days. | | | | + + + + + + + + | Specimen | + + | Blood | + + + + + + + | Performing | Address | City/State/Zipcode | Phone Number | | Organization | | | | + + + + + | [facility] | [address] | [place] [address] | | | LAB-MICRO | | | | + + + + + CULTURE, BLOOD BACTI & YEAST (12/03/2010 10:30 PM PDT) + + + + + + | Component | Value | Ref Range | Performed | Pathologist | | | | | At | Signature | + + + + + + | SOURCE BODY | Right Antecubital | | [facility] | | | SITE | | | REGIONAL | | | | | | LAB-MICRO | | + + + + + + | CULTURE | Blood Culture | | [facility] | | | RESULT | | | REGIONAL | | | | Source.................. | | LAB-MICRO | | | | : Right Antecubital | | | | | | | | | | | | Result.................. | | | | | | . Final: No growth at 5 | | | | | | days. | | | | + + + + + + + + | Specimen | + + | Blood | + + + + + + + | Performing | Address | City/State/Zipcode | Phone Number | | Organization | | | | + + + + + | [facility] | [address] | [place] [address] | | | LAB-MICRO | | | | + + + + + CAPILLARY BLOOD GLUCOSE, POC (12/03/2010 9:43 PM PDT) + +---------+ + + + | Component | Value | Ref Range | Performed | Pathologist | | | | | At | Signature | + +---------+ + + + | BLOOD | 131 (H) | 60 - 99 mg/dL | [facility] - | | | GLUCOSE, | | | [facility] | | | POC | | | [facility] | | | | | | OF CARE | | | | | | TESTS | | + +---------+ + + + + + | Specimen | + + | | + + + + + + + | Performing | Address | City/State/Zipcode | Phone Number | | Organization | | | | + + + + + | [facility] | [address] | [place], [place] | | | [facility] | [address] | [address] | | | TESTS | | | | + + + + + DIFFERENTIAL (12/03/2010 6:10 PM PDT) + +---------+ + + + | Component | Value | Ref Range | Performed | Pathologist | | | | | At | Signature | + +---------+ + + + | NEUTROPHIL | 74 (H) | 50 - 70 % | [facility] | | | % | | | DEPARTMENT | | | | | | OF | | | | | | PATHOLOGY | | + +---------+ + + + | LYMPHOCYTE | 17 (L) | 18 - 42 % | [facility] | | | % | | | DEPARTMENT | | | | | | OF | | | | | | PATHOLOGY | | + +---------+ + + + | MONOCYTE % | 8 | 2 - 8 % | [facility] | | | | | | DEPARTMENT | | | | | | OF | | | | | | PATHOLOGY | | + +---------+ + + + | EOS % | 1 | 1 - 3 % | [facility] | | | | | | DEPARTMENT | | | | | | OF | | | | | | PATHOLOGY | | + +---------+ + + + | BASO % | 1 | <3 % | [facility] | | | | | | DEPARTMENT | | | | | | OF | | | | | | PATHOLOGY | | + +---------+ + + + | NEUTROPHIL | 8.9 (H) | 1.8 - 7.7 K/cu | [facility] | | | # | | mm | DEPARTMENT | | | | | | OF | | | | | | PATHOLOGY | | + +---------+ + + + | LYMPHOCYTE | 2.0 | 1.0 - 4.8 K/cu | [facility] | | | # | | mm | DEPARTMENT | | | | | | OF | | | | | | PATHOLOGY | | + +---------+ + + + | MONOCYTE # | 1.0 (H) | <0.9 K/cu mm | [facility] | | | | | | DEPARTMENT | | | | | | OF | | | | | | PATHOLOGY | | + +---------+ + + + | EOS # | 0.1 | <0.6 K/cu mm | [facility] | | | | | | DEPARTMENT | | | | | | OF | | | | | | PATHOLOGY | | + +---------+ + + + | BASO # | 0.1 | <0.2 | [facility] | | | | | | DEPARTMENT | | | | | | OF | | | | | | PATHOLOGY | | + +---------+ + + + + + | Specimen | + + | | + + + + + + + | Performing | Address | City/State/Zipcode | Phone Number | | Organization | | | | + + + + + | [facility] | [address] | [place] [address] | | | PATHOLOGY | [address] | | | + + + + + CBC, WITH DIFFERENTIAL (12/03/2010 6:10 PM PDT) + + + + + + | Component | Value | Ref Range | Performed | Pathologist | | | | | At | Signature | + + + + + + | WHITE CELL | 12.0 (H) | 4.4 - 11.0 K/cu | [facility] | | | COUNT | | mm | DEPARTMENT | | | | | | OF | | | | | | PATHOLOGY | | + + + + + + | RED CELL | 4.80 | 4.50 - 5.90 | [facility] | | | COUNT | | M/cu mm | DEPARTMENT | | | | | | OF | | | | | | PATHOLOGY | | + + + + + + | HEMOGLOBIN | 15.0 | 13.5 - 17.5 | [facility] | | | | | g/dL | DEPARTMENT | | | | | | OF | | | | | | PATHOLOGY | | + + + + + + | HEMATOCRIT | 43.9 | 41.0 - 53.0 % | [facility] | | | | | | DEPARTMENT | | | | | | OF | | | | | | PATHOLOGY | | + + + + + + | MCV | 91.5 | 80.0 - 96.0 fL | [facility] | | | | | | DEPARTMENT | | | | | | OF | | | | | | PATHOLOGY | | + + + + + + | MCHC | 34.1 | 33.4 - 35.5 | [facility] | | | | | g/dL | DEPARTMENT | | | | | | OF | | | | | | PATHOLOGY | | + + + + + + | RDW | 13.5 | 11.5 - 15.0 % | [facility] | | | | | | DEPARTMENT | | | | | | OF | | | | | | PATHOLOGY | | + + + + + + | PLATELET | 171 | 150 - 400 K/cu | [facility] [...] | + + + + + | [facility] | [address] | [place] [address] | | | PATHOLOGY | [address] | | | + + + + + COMPLETE METABOLIC SET (NA,K,CL,CO2,BUN,CREAT,GLUC,CA,AST,ALT,BILI TOTAL,ALK PHOS,ALB,PROT TOTAL) (12/03/2010 6:10 PM PDT) + + + + + + | Component | Value | Ref Range | Performed | Pathologist | | | | | At | Signature | + + + + + + | GLUCOSE, | 94 | 60 - 99 mg/dL | [facility] | | | PLASMA | | | DEPARTMENT | | | (LAB) | | | OF | | | | | | PATHOLOGY | | + + + + + + | BUN, PLASMA | 13 | 6 - 20 mg/dL | [facility] | | | (LAB) | | | DEPARTMENT | | | | | | OF | | | | | | PATHOLOGY | | + + + + + + | CREATININE | 0.84 | 0.70 - 1.30 | [facility] | | | PLASMA | | mg/dL | DEPARTMENT | | | (LAB) | | | OF | | | | | | PATHOLOGY | | + + + + + + | TOTAL | 7.2 | 6.1 - 7.9 g/dL | [facility] | | | PROTEIN, | | | DEPARTMENT | | | PLASMA | | | OF | | | (LAB) | | | PATHOLOGY | | + + + + + + | ALBUMIN, | 4.6 | 3.5 - 4.7 g/dL | [facility] | | | PLASMA | | | DEPARTMENT | | | (LAB) | | | OF | | | | | | PATHOLOGY | | + + + + + + | CALCIUM, | 9.7 | 8.6 - 10.2 | [facility] | | | PLASMA | | mg/dL | DEPARTMENT | | | (LAB) | | | OF | | | | | | PATHOLOGY | | + + + + + + | BILIRUBIN | 0.6 | 0.3 - 1.2 mg/dL | [facility] | | | TOTAL | | | DEPARTMENT | | | | | | OF | | | | | | PATHOLOGY | | + + + + + + | ALK PHOS | 80 | 53 - 128 U/L | [facility] | | | | | | DEPARTMENT | | | | | | OF | | | | | | PATHOLOGY | | + + + + + + | AST(SGOT) | 19 | 15 - 41 U/L | [facility] | | | | | | DEPARTMENT | | | | | | OF | | | | | | PATHOLOGY | | + + + + + + | SODIUM, | 139 | 134 - 143 | [facility] | | | PLASMA | | mmol/L | DEPARTMENT | | | (LAB) | | | OF | | | | | | PATHOLOGY | | + + + + + + | POTASSIUM, | 3.8 | 3.4 - 5.0 | [facility] | | | PLASMA | | mmol/L | DEPARTMENT | | | (LAB) | | | OF | | | | | | PATHOLOGY | | + + + + + + | CHLORIDE, | 103 | 97 - 108 mmol/L | [facility] | | | PLASMA | | | DEPARTMENT | | | (LAB) | | | OF | | | | | | PATHOLOGY | | + + + + + + | TOTAL CO2, | 26Comment: New Total | 22 - 29 mmol/L | [facility] | | | PLASMA | CO2 reference range | | DEPARTMENT | | | (LAB) | effective 06/18/10. | | OF | | | | | | PATHOLOGY | | + + + + + + | ALT (SGPT) | 25 | 13 - 48 U/L | [facility] | | | | | | DEPARTMENT | | | | | | OF | | | | | | PATHOLOGY | | + + + + + + | ANION GAP | 10 | 4 - 11 mmol/L | [facility] | | | | | | DEPARTMENT | | | | | | OF | | | | | | PATHOLOGY | | + + + + + + | ANION | 8 | 4 - 11 mmol/L | [facility] | | | GAP(ALB | | | DEPARTMENT | | | CORRECTED) | | | OF | | | | | | PATHOLOGY | | + + + + + + + + | Specimen | + + | Blood - Blood | + + + + + + + | Performing | Address | City/State/Zipcode | Phone Number | | Organization | | | | + + + + + | [facility] DEPARTMENT OF | [address] | [place] [address] | | | PATHOLOGY | [address] | | | + + + + + documented in this encounter Visit Diagnoses + + | Diagnosis | + + | Otitis externa - Primary Infective otitis externa, unspecified | + + | Infective otitis externa, unspecified | + + | Nausea & vomiting Nausea with vomiting | + + | Chronic pain Other chronic pain | + + | Cochlear implant in place Other postprocedural status | + + | Asthma | + + | PTSD (post-traumatic stress disorder) Posttraumatic stress disorder | + + documented in this encounter Administered Medications + +--------+ +---------+------+------+ | Medication Order | MAR | Action | Dose | Rate | Site | | | Action | Date | | | | + +--------+ +---------+------+------+ | acetic acid (aka VOSOL) 2 % | Given | 12/07/19 | 4 drops | | | | otic drops 4 Drop 4 drop, Both | | 11 9:30 | | | | | Ears, THREE TIMES DAILY, First | | AM PDT | | | | | dose on Thu12/04/10 at 0145, | | | | | | | Until Discontinued | | | | | | + +--------+ +---------+------+------+ +-------+ +---------+---+---+ | Given | 12/06/19 | 4 drops | | | | | 11 9:33 | | | | | | PM PDT | | | | +-------+ +---------+---+---+ | Given | 12/06/19 | 4 drops | | | | | 11 4:48 | | | | | | PM PDT | | | | +-------+ +---------+---+---+ +---+---+ | | | +---+---+ + +-------+ +-----+---+---+ | ceFEPIme (aka MAXIPIME) IV | Given | 12/07/19 | 2 g | | | | (minibag+) 2 g 2 g, intravenous, | | 11 9:00 | | | | | EVERY 12 HOURS, First dose on | | AM PDT | | | | | Lindsay 12/05/10 at 0800, Until | | | | | | | Discontinued | | | | | | + +-------+ +-----+---+---+ +-------+ +-----+---+---+ | Given | 12/06/19 | 2 g | | | | | 11 8:06 | | | | | | PM PDT | | | | +-------+ +-----+---+---+ | Given | 12/06/19 | 2 g | | | | | 11 8:51 | | | | | | AM PDT | | | | +-------+ +-----+---+---+ +---+---+ | | | +---+---+ + +-------+ +-----+---+---+ | ceftAZIDime-Dextrose (Iso-osm) | Given | 12/05/19 | 2 g | | | | (aka FORTAZ) IV 2 g 2 g, | | 11 8:24 | | | | | intravenous, EVERY 8 HOURS, First | | PM PDT | | | | | dose on Thu12/04/10 at 1900, | | | | | | | Until Discontinued | | | | | | + +-------+ +-----+---+---+ +---+---+ | | | +---+---+ + +-------+ +---------+---+---+ | ciprofloxacin-dexamethasone | Given | 12/07/19 | 4 drops | | | | (aka CIPRODEX) 0.3-0.1 % otic | | 11 9:30 | | | | | drops 4 Drop 4 drop, Both Ears, | | AM PDT | | | | | TWICE DAILY, First dose on Thu | | | | | | | 12/04/10 at 0145, Until | | | | | | | Discontinued | | | | | | + +-------+ +---------+---+---+ +-------+ +---------+---+---+ | Given | 12/06/19 | 4 drops | | | | | 11 9:32 | | | | | | PM PDT | | | | +-------+ +---------+---+---+ | Given | 12/06/19 | 4 drops | | | | | 11 8:52 | | | | | | AM PDT | | | | +-------+ +---------+---+---+ +---+---+ | | | +---+---+ + +-------+ +---------+---+---+ | dexamethasone 0.1 % ophthalmic | Given | 12/05/19 | 3 drops | | | | drops 3 Drop 3 drop, Both Eyes, | | 11 2:30 | | | | | THREE TIMES DAILY, First dose on | | AM PDT | | | | | Thu12/04/10 at 0130, Until | | | | | | | Discontinued | | | | | | + +-------+ +---------+---+---+ +---+---+ | | | +---+---+ + +-------+ +--------+---+---+ | doxycycline hyclate (aka | Given | 12/06/19 | 100 mg | | | | VIBRA-TABS) tablet 100 mg 100 | | 11 8:52 | | | | | mg, oral, TWICE DAILY, First dose | | AM PDT | | | | | on Thu12/04/10 at 0900, Until | | | | | | | Discontinued | | | | | | + +-------+ +--------+---+---+ +-------+ +--------+---+---+ | Given | 12/05/19 | 100 mg | | | | | 11 9:55 | | | | | | PM PDT | | | | +-------+ +--------+---+---+ | Given | 12/05/19 | 100 mg | | | | | 11 9:30 | | | | | | AM PDT | | | | +-------+ +--------+---+---+ +---+---+ | | | +---+---+ + +-------+ +--------+---+---+ | fluticasone-salmeterol (aka | Given | 12/07/19 | 1 puff | | | | ADVAIR) 250-50 mcg/dose inhaler 1 | | 11 9:30 | | | | | Puff 1 puff, inhalation, TWICE | | AM PDT | | | | | DAILY, First dose on Thu12/04/10 | | | | | | | at 0900, Until Discontinued | | | | | | + +-------+ +--------+---+---+ +-------+ +--------+---+---+ | Given | 12/06/19 | 1 puff | | | | | 11 9:32 | | | | | | PM PDT | | | | +-------+ +--------+---+---+ | Given | 12/06/19 | 1 puff | | | | | 11 8:52 | | | | | | AM PDT | | | | +-------+ +--------+---+---+ +---+---+ | | | +---+---+ + +-------+ +--------+---+---+ | gabapentin (aka NEURONTIN) | Given | 12/05/19 | 300 mg | | | | capsule 300 mg 300 mg, oral, | | 11 1:41 | | | | | THREE TIMES DAILY, First dose on | | AM PDT | | | | | 12/04/10 at 0130, Until | | | | | | | Discontinued | | | | | | + +-------+ +--------+---+---+ +---+---+ | | | +---+---+ + +-------+ +--------+---+---+ | gabapentin (aka NEURONTIN) | Given | 12/07/19 | 900 mg | | | | capsule 900 mg 900 mg, oral, | | 11 9:30 | | | | | THREE TIMES DAILY, First dose on | | AM PDT | | | | | 12/04/10 at 0900, Until | | | | | | | Discontinued | | | | | | + +-------+ +--------+---+---+ +-------+ +--------+---+---+ | Given | 12/06/19 | 900 mg | | | | | 11 9:33 | | | | | | PM PDT | | | | +-------+ +--------+---+---+ | Given | 12/06/19 | 900 mg | | | | | 11 4:48 | | | | | | PM PDT | | | | +-------+ +--------+---+---+ +---+---+ | | | +---+---+ + +-------+ +--------+---+---+ | heparin injection 5,000 Units | Given | 12/07/19 | 5,000 | | | | 5,000 Units, subcutaneous, EVERY | | 11 8:57 | Units | | | | 8 HOURS, First dose on Wed | | AM PDT | | | | | 12/04/10 at 1600, Until | | | | | | | Discontinued | | | | | | + +-------+ +--------+---+---+ +-------+ +--------+---+---+ | Given | 12/07/19 | 5,000 | | | | | 11 12:10 | Units | | | | | AM PDT | | | | +-------+ +--------+---+---+ | Given | 12/06/19 | 5,000 | | | | | 11 4:48 | Units | | | | | PM PDT | | | | +-------+ +--------+---+---+ +---+---+ | | | +---+---+ + +-------+ +-------+---+---+ | hydrochlorothiazide (aka | Given | 12/07/19 | 25 mg | | | | HYDRODIURIL) tablet 25 mg 25 mg, | | 11 9:30 | | | | | oral, DAILY, First dose on Thu | | AM PDT | | | | | 12/04/10 at 0900, Until | | | | | | | Discontinued | | | | | | + +-------+ +-------+---+---+ +-------+ +-------+---+---+ | Given | 12/06/19 | 25 mg | | | | | 11 8:52 | | | | | | AM PDT | | | | +-------+ +-------+---+---+ | Given | 12/05/19 | 25 mg | | | | | 11 9:30 | | | | | | AM PDT | | | | +-------+ +-------+---+---+ +---+---+ | | | +---+---+ + +-------+ +--------+---+---+ | HYDROmorphone (aka DILAUDID) | Given | 12/07/19 | 0.3 mg | | | | injection 0.2-0.3 mg 0.2-0.3 mg, | | 11 11:50 | | | | | intravenous, EVERY 4 HOURS | | AM PDT | | | | | NEEDED, Starting Thu12/04/10 at | | | | | | | 1210, Until Thu12/06/10 at 1627, | | | | | | | severe pain | | | | | | + +-------+ +--------+---+---+ +-------+ +--------+---+---+ | Given | 12/07/19 | 0.3 mg | | | | | 11 7:57 | | | | | | AM PDT | | | | +-------+ +--------+---+---+ | Given | 12/07/19 | 0.3 mg | | | | | 11 3:40 | | | | | | AM PDT | | | | +-------+ +--------+---+---+ +---+---+ | | | +---+---+ + +-------+ +---------+---+---+ | ipratropium (aka ATROVENT) 17 | Given | 12/06/19 | 2 puffs | | | | mcg/Actuation inhaler 2 Puff 2 | | 11 9:33 | | | | | puff, inhalation, FOUR TIMES | | PM PDT | | | | | DAILY, First dose on Thu12/04/10 | | | | | | | at 0900, Until Discontinued | | | | | | + +-------+ +---------+---+---+ + + +---------+---+---+ | Pt Administered | 12/06/19 | 2 puffs | | | | | 11 7:21 | | | | | | PM PDT | | | | + + +---------+---+---+ | Pt Administered | 12/06/19 | 2 puffs | | | | | 11 2:49 | | | | | | PM PDT | | | | + + +---------+---+---+ +---+---+ | | | +---+---+ + +-------+ + +---+---+ | lactated ringers IV bolus 1,000 | Given | 12/04/19 | 1,000 mL | | | | mL 1,000 mL, intravenous, ONCE, | | 11 9:51 | | | | | 1 dose, [facility] 12/03/10 at 2145 | | PM PDT | | | | + +-------+ + +---+---+ +---+---+ | | | +---+---+ + +-------+ +---------+---+---+ | lidocaine (aka LIDODERM) 5 | Given | 12/07/19 | 1 patch | | | | %(700 mg/patch) 1 Patch 1 patch, | | 11 12:35 | | | | | transdermal, EVERY 24 HOURS, | | PM PDT | | | | | First dose on Lindsay 12/05/10 at | | | | | | | 1700, Until Discontinued | | | | | | + +-------+ +---------+---+---+ +-------+ +---------+---+---+ | Given | 12/06/19 | 1 patch | | | | | 11 4:54 | | | | | | PM PDT | | | | +-------+ +---------+---+---+ +---+---+ | | | +---+---+ + +-------+ +-------+---+---+ | lisinopril (aka PRINIVIL) | Given | 12/07/19 | 10 mg | | | | tablet 10 mg 10 mg, oral, DAILY, | | 11 9:30 | | | | | First dose on Thu12/04/10 at | | AM PDT | | | | | 0900, Until Discontinued | | | | | | + +-------+ +-------+---+---+ +-------+ +-------+---+---+ | Given | 12/06/19 | 10 mg | | | | | 11 8:52 | | | | | | AM PDT | | | | +-------+ +-------+---+---+ | Given | 12/05/19 | 10 mg | | | | | 11 9:30 | | | | | | AM PDT | | | | +-------+ +-------+---+---+ +---+---+ | | | +---+---+ + +-------+ +------+---+---+ | LORazepam (aka ATIVAN) tablet | Given | 12/07/19 | 2 mg | | | | 0.5-2 mg 0.5-2 mg, oral, DAILY | | 11 7:57 | | | | | NEEDED, Starting Thu12/04/10 | | AM PDT | | | | | at 1121, Until Thu12/06/10 at | | | | | | | 1627, anxiety | | | | | | + +-------+ +------+---+---+ +-------+ +------+---+---+ | Given | 12/06/19 | 1 mg | | | | | 11 8:05 | | | | | | PM PDT | | | | +-------+ +------+---+---+ | Given | 12/06/19 | 1 mg | | | | | 11 7:31 | | | | | | AM PDT | | | | +-------+ +------+---+---+ +---+---+ | | | +---+---+ + +-------+ +------+---+---+ | LORazepam (aka ATIVAN) tablet 2 | Given | 12/07/19 | 2 mg | | | | mg 2 mg, oral, THREE TIMES | | 11 9:30 | | | | | DAILY, First dose on Thu12/04/10 | | AM PDT | | | | | at 1130, Until Discontinued | | | | | | + +-------+ +------+---+---+ +-------+ +------+---+---+ | Given | 12/06/19 | 2 mg | | | | | 11 9:33 | | | | | | PM PDT | | | | +-------+ +------+---+---+ | Given | 12/06/19 | 2 mg | | | | | 11 3:27 | | | | | | PM PDT | | | | +-------+ +------+---+---+ +---+---+ | | | +---+---+ + +-------+ +------+---+---+ | LORazepam (aka ATIVAN) tablet 2 | Given | 12/07/19 | 2 mg | | | | mg 2 mg, oral, ONCE, 1 dose, | | 11 12:35 | | | | | 12/06/10 at 1215 | | PM PDT | | | | + +-------+ +------+---+---+ +---+---+ | | | +---+---+ + +-------+ +-------+---+---+ | mirtazapine (aka REMERON) | Given | 12/06/19 | 30 mg | | | | tablet 30 mg 30 mg, oral, AT | | 11 9:33 | | | | | BEDTIME, First dose on Thu | | PM PDT | | | | | 12/04/10 at 2200, Until | | | | | | | Discontinued | | | | | | + +-------+ +-------+---+---+ +-------+ +-------+---+---+ | Given | 12/05/19 | 30 mg | | | | | 11 9:57 | | | | | | PM PDT | | | | +-------+ +-------+---+---+ +---+---+ | | | +---+---+ + +-------+ +---------+---+---+ | ofloxacin (aka OCUFLOX) 0.3 % | Given | 12/05/19 | 3 drops | | | | ophthalmic drops 3 Drop 3 drop, | | 11 2:31 | | | | | Both Eyes, THREE TIMES DAILY, | | AM PDT | | | | | First dose on Thu12/04/10 at | | | | | | | 0130, Until Discontinued | | | | | | + +-------+ +---------+---+---+ +---+---+ | | | +---+---+ + +-------+ +-------+---+---+ | omeprazole (aka PRILOSEC) | Given | 12/07/19 | 20 mg | | | | capsule 20 mg 20 mg, oral, | | 11 9:30 | | | | | DAILY, First dose on Thu12/04/10 | | AM PDT | | | | | at 0900, Until Discontinued | | | | | | + +-------+ +-------+---+---+ +-------+ +-------+---+---+ | Given | 12/06/19 | 20 mg | | | | | 11 8:52 | | | | | | AM PDT | | | | +-------+ +-------+---+---+ | Given | 12/05/19 | 20 mg | | | | | 11 9:30 | | | | | | AM PDT | | | | +-------+ +-------+---+---+ +---+---+ | | | +---+---+ + +-------+ +------+---+---+ | ondansetron (aka ZOFRAN) | Given | 12/07/19 | 4 mg | | | | injection 4 mg 4 mg, | | 11 5:49 | | | | | intravenous, EVERY 12 HOURS | | AM PDT | | | | | NEEDED, Starting Thu12/03/10 at | | | | | | | 1954, Until Thu12/06/10 at 1627, | | | | | | | nausea/vomiting | | | | | | + +-------+ +------+---+---+ +-------+ +------+---+---+ | Given | 12/06/19 | 4 mg | | | | | 11 9:38 | | | | | | AM PDT | | | | +-------+ +------+---+---+ | Given | 12/05/19 | 4 mg | | | | | 11 5:27 | | | | | | PM PDT | | | | +-------+ +------+---+---+ +---+---+ | | | +---+---+ + +-------+ +-------+---+---+ | oxyCODONE immediate release | Given | 12/07/19 | 10 mg | | | | (aka ROXICODONE) tablet 10 mg 10 | | 11 12:35 | | | | | mg, oral, ONCE, 1 dose, Fri | | PM PDT | | | | | 12/06/10 at 1215 | | | | | | + +-------+ +-------+---+---+ +---+---+ | | | +---+---+ + +-------+ +-------+---+---+ | oxyCODONE immediate release | Given | 12/05/19 | 15 mg | | | | (aka ROXICODONE) tablet 15 mg 15 | | 11 1:41 | | | | | mg, oral, EVERY 4 HOURS | | AM PDT | | | | | NEEDED, Starting Thu12/04/10 at | | | | | | | 0131, Until Thu12/04/10 at 0152, | | | | | | | moderate pain, severe pain | | | | | | + +-------+ +-------+---+---+ +---+---+ | | | +---+---+ + +-------+ +-------+---+---+ | oxyCODONE immediate release | Given | 12/06/19 | 20 mg | | | | (aka ROXICODONE) tablet 20 mg 20 | | 11 3:28 | | | | | mg, oral, EVERY 4 HOURS | | PM PDT | | | | | NEEDED, Starting Thu12/04/10 at | | | | | | | 0152, Until Thu12/05/10 at 1637, | | | | | | | moderate pain, severe pain | | | | | | + +-------+ +-------+---+---+ +-------+ +-------+---+---+ | Given | 12/06/19 | 20 mg | | | | | 11 11:21 | | | | | | AM PDT | | | | +-------+ +-------+---+---+ | Given | 12/06/19 | 20 mg | | | | | 11 7:31 | | | | | | AM PDT | | | | +-------+ +-------+---+---+ +---+---+ | | | +---+---+ + +-------+ +-------+---+---+ | oxyCODONE immediate release | Given | 12/07/19 | 20 mg | | | | (aka ROXICODONE) tablet 20 mg 20 | | 11 8:59 | | | | | mg, oral, EVERY 6 HOURS | | AM PDT | | | | | NEEDED, Starting Lindsay 12/05/10 at | | | | | | | 1637, Until Thu12/06/10 at 1627, | | | | | | | moderate pain, severe pain | | | | | | + +-------+ +-------+---+---+ +-------+ +-------+---+---+ | Given | 12/07/19 | 20 mg | | | | | 11 2:58 | | | | | | AM PDT | | | | +-------+ +-------+---+---+ | Given | 12/06/19 | 20 mg | | | | | 11 9:32 | | | | | | PM PDT | | | | +-------+ +-------+---+---+ +---+---+ | | | +---+---+ + +-------+ +------+---+---+ | prazosin (aka MINIPRESS) | Given | 12/06/19 | 1 mg | | | | capsule 1 mg 1 mg, oral, AT | | 11 9:33 | | | | | BEDTIME, First dose on Thu | | PM PDT | | | | | 12/04/10 at 2200, Until | | | | | | | Discontinued | | | | | | + +-------+ +------+---+---+ +-------+ +------+---+---+ | Given | 12/05/19 | 1 mg | | | | | 11 9:57 | | | | | | PM PDT | | | | +-------+ +------+---+---+ +---+---+ | | | +---+---+ + +-------+ +---------+---+---+ | promethazine (aka PHENERGAN) | Given | 12/06/19 | 6.25 mg | | | | injection 6.25 mg 6.25 mg, | | 11 8:18 | | | | | intravenous, EVERY 6 HOURS | | PM PDT | | | | | NEEDED, Starting Thu12/03/10 at | | | | | | | 1954, Until Thu12/06/10 at 1627, | | | | | | | nausea/vomiting | | | | | | + +-------+ +---------+---+---+ +-------+ +---------+---+---+ | Given | 12/05/19 | 6.25 mg | | | | | 11 6:27 | | | | | | AM PDT | | | | +-------+ +---------+---+---+ | Given | 12/04/19 | 6.25 mg | | | | | 11 9:56 | | | | | | PM PDT | | | | +-------+ +---------+---+---+ +---+---+ | | | +---+---+ + +-------+ +-------+---+---+ | QUEtiapine (aka SEROQUEL) | Given | 12/06/19 | 25 mg | | | | tablet 25 mg 25 mg, oral, AT | | 11 9:33 | | | | | BEDTIME, First dose on Wed | | PM PDT | | | | | 12/04/10 at 2200, Until | | | | | | | Discontinued | | | | | | + +-------+ +-------+---+---+ +-------+ +-------+---+---+ | Given | 12/05/19 | 25 mg | | | | | 11 9:57 | | | | | | PM PDT | | | | +-------+ +-------+---+---+ +---+---+ | | | +---+---+ + +-------+ + +---+---+ | senna-docusate (loli Marks) | Given | 12/07/19 | 1 tablet | | | | 8.6-50 mg 1 Tab 1 tablet, oral, | | 11 9:30 | | | | | DAILY, First dose on Thu12/05/10 | | AM PDT | | | | | at 1615, Until Discontinued | | | | | | + +-------+ + +---+---+ +-------+ + +---+---+ | Given | 12/06/19 | 1 tablet | | | | | 11 4:48 | | | | | | PM PDT | | | | +-------+ + +---+---+ +---+---+ | | | +---+---+ + +-------+ +-------+---+---+ | simvastatin (aka ZOCOR) tablet | Given | 12/06/19 | 10 mg | | | | 10 mg 10 mg, oral, EVERY | | 11 9:32 | | | | | EVENING, First dose on Wed | | PM PDT | | | | | 12/04/10 at 0130, Until | | | | | | | Discontinued | | | | | | + +-------+ +-------+---+---+ +-------+ +-------+---+---+ | Given | 12/05/19 | 10 mg | | | | | 11 9:55 | | | | | | PM PDT | | | | +-------+ +-------+---+---+ | Given | 12/05/19 | 10 mg | | | | | 11 2:18 | | | | | | AM PDT | | | | +-------+ +-------+---+---+ +---+---+ | | | +---+---+ documented in this encounter
--- OUTSIDE RECORDS SUMMARY | ~2019-04-25 | XMS | Encounter Summary ---
Demographics + + + | Address | [address] | | | [place] [address] | + + + | Home Phone [...] Author + + + | Author | [facility] | + + + | Organization | [facility] | + + + | Address | Unknown | + + + | Phone | Unavailable | + + + Support + + + + + | Name | Relationship | Address | Phone | + + + + + | Margarito Owusu | ECON | [address] | | | | | [place] | | | | | [phone] | | + + + + + Care Team Providers + +------+ + | Care It Data Architect Name | Role | Phone | + +------+ + | Maurice Zelaya MD | PCP | | + +------+ + Encounter Details +--------+ + + + + | Date | Type | Department | Care Team | Description | +--------+ + + + + | 04/16/ | Discharge | [facility] | Sherin Willett MD | Discharge Summaries | | 2009 | Summary-Tra | E The | [facility] | | | | nscribed | [place], [place] | [facility] [address] | | | | | [address] | [facility] | | | | | | [place] [address] | | | | | | [phone] | | | | | | | [...] + + documented as of this encounter Discharge Summaries Sherin Willett MD - 04/17/2010 9:03 AM [facility] DISCHARGE SUMMARY [address] [place] [id number] KISHOR VIVAR DATE OF ADMISSION: 04/16/2010 DATE OF DISCHARGE: 04/17/2010 DISCHARGE DIAGNOSES: Chest pain. BATH SOLUTION MAKER: None. PRIMARY CARE PROVIDER: Dr. Sergo Leigh PROCEDURES: None. STUDIES: EKG demonstrating tachycardia at 101, late transition but no obvious ischemia and no significant change from prior EKG of September 15, 2009. Pertinent labs: Sodium 139, potassium 4.1, CO2 27, chloride 103, BUN 22, creatinine 1.04, glucose 93, calcium 9.3. CBC: White blood cell 9, hemoglobin 13.4, hematocrit 38.4, platelets 136. Troponins 0 and then 0.01 x2. HISTORY OF PRESENT ILLNESS: Mr. Vivar is a 44-year-old gentleman with a history of brain injury, hypertension, diabetes, ongoing tobacco abuse and a family history of coronary artery disease who presented to [facility] on 04/16/2010 with a history of chest pain. For full details of admission, please see dictated history and physical from Dr. Parisa Michael on that date. HOSPITAL COURSE: The patient was admitted to the telemetry unit overnight and ruled out with serial troponins that were negative. He was extremely agitated in the morning and anxious to leave. He apparently has had numerous visits to this hospital previously and cannot bear being in the hospital. As his third troponin had been returned negative, I felt it was reasonable to discharge him. I was able to get him to agree to take an aspirin, so this will be included as part of his discharge paperwork. He does need follow-up for his chest pain including a Myoview study, but it was obvious he was not going to tolerate that today, so I will ask his primary care physician to schedule that on an outpatient basis. DISPOSITION: Discharge to back to [facility]. MEDICATIONS: New medication aspirin. Usual medications continued on discharge: 1. Colace 100 mg b.i.d. 2. Doxycycline 100 mg b.i.d. 3. Fentanyl patch 75 mcg to q.72 h 4. Glyburide 2.5 mg daily. 5. Hydrochlorothiazide 25 mg daily. 6. Lactulose 30 mL b.i.d. p.r.n. constipation. 7. Lexapro 10 mg daily. 8. Lisinopril 10 mg daily. 9. Lorazepam 1-2 mg t.i.d. p.r.n. anxiety. 10.Lovastatin 20 mg daily. 11.Metformin 500 mg b.i.d. 12.MiraLAX 17 grams p.r.n. constipation. KISHOR VIVAR [id number] : 61 [id number] ADMIT DATE: 04/16/10 DISCHARGE DATE: 04/17/10 13.Mirtazapine 30 mg daily. 14.Neurontin 400 mg t.i.d. plus 1200 in the p.m. 15.Oxycodone 15 mg daily p.r.n. pain. 16.Prazosin 2 mg b.i.d. 17.Prilosec 20 mg daily. 18.ProAir 90 mcg 2 puffs q.4 h p.r.n. shortness of breath. 19.Senna 8.6 mg nightly p.r.n. constipation. 20.Seroquel 25 mg t.i.d. 21.Spiriva 18 mcg daily. 22.Tegretol 200 mg 1 tablet in the morning and 2 in the evening. 23.Theophylline 300 mg b.i.d. DISCHARGE INSTRUCTIONS AND FOLLOW-UP: The patient needs to be seen by his primary care physician within the next 2 weeks to schedule Myoview for risk stratification. He also needs to quit smoking, but he was so agitated this morning, it was not the moment to bring that topic up. I sent a notification to Dr. Leigh regarding the patient's discharge via [employer] and asked him to call me. I also called [facility] to advise them of patient status and ask that they aspirin to his med list. Time required for discharge planning and coordination greater than 30 minutes. /Viraj /[id number] Electronically Signed [id number] MD CB Woo KEVIN R [id number] : 61 [id number] ADMIT DATE: 04/16/10 DISCHARGE DATE: 04/17/10 documented in this encounter Plan of Treatment +--------+ + + + + | Date | Type | Specialty | Care Team | Description | +--------+ + + + + | 04/29/ | Diagnostic | Computer Field Technician | Marce Meyer | | | 2019 | Visit | | Eve Briseno [address] | | | | | | [address] | | | | | | [place] | | | | | | [address] | | +--------+ + + + + documented as of this encounter Visit Diagnoses Not on filedocumented in this encounter"
--- OUTSIDE RECORDS SUMMARY | ~2019-04-25 | XMS | Encounter Summary ---
Demographics + + + | Address | [address] | | | [place] [address] | + + + | Home Phone | | + + + | Preferred Language | Unknown | + + + | Marital Status | Single | + + + | Yazdanism Affiliation | BAP | + + + | Race | White | + + + | Ethnic Group | Not or | + + + Author + + + | Author | [facility] | + + + | Organization | [facility] | + + + | Address | Unknown | + + + | Phone | Unavailable | + + + Support + + + + + | Name | Relationship | Address | Phone | + + + + + | Margarito Owusu | ECON | [address] | | | | | [place] | | | | | [address] | | + + + + + Care Team Providers + +------+ + | Care Single Pass Soil Stabilizer Operator Name | Role | Phone | + +------+ + | Maurice Zelaya MD | PCP | | + +------+ + Reason for Visit + + + | Reason | Comments | + + + | Follow-up visit | | + + + Intake Referral (Routine) +--------+--------+ + + + + | Status | Reason | Specialty | Diagnoses / | Referred By | Referred To | | | | | Procedures | Contact | Contact | +--------+--------+ + + + + | Closed | | Surgery | Diagnoses | Nathalie | Luke, | | | | | Ventral | Maurice Perdomo, | Ayana Joevl MD | | | | | hernia, | MD [address] | [address] | | | | | recurrent | [address] | | | | | recurrent | [place] | [facility] [place] | | | | | ventral | [place] | [address] | | | | | hernia | [address] | Phone: | | | | | | Phone: | [phone] | | | | | | [phone] | Fax: | | | | | | Fax: | [phone] | | | | | | [phone] | | +--------+--------+ + + + + Encounter Details +--------+---------+ + + + | Date | Type | Department | Care Team | Description | +--------+---------+ + + + | 09/08/ | Office | [facility] | Ayana Butler, | Hernia (Primary Dx); | | 2017 | Visit | Center at [facility] [address] | [address] | Chronic obstructive | | | | [address] | [place], [place] | pulmonary disease, | | | | Mailcode: Center | [address] | unspecified COPD | | | | for Health and | [phone] | type ([facility]) | | | | [facility] [address] | | | | | | [place], [place] | | | | | | [address] | | | | | | [phone] | | | +--------+---------+ + + + [...] + + + | Blood Pressure | 131/72 | 09/08/2016 2:47 PM | | | | | PST | | + + + + + | Pulse | 85 | 09/08/2016 2:47 PM | | | | | PST | | + + + + + | Temperature | 36.7 C (98.1 F) | 09/08/2016 2:47 PM | | | | | PST | | + + + + + | Respiratory Rate | 16 | 09/08/2016 2:47 PM | | | | | PST [...] | Height | 182.9 cm (6') | 09/08/2016 2:47 PM | | | | | PST | | + + + + + | Body Mass Index | - | - | | + + + + + documented in this encounter Progress Notes Ayana Butler MD - 09/08/2016 2:00 PM PSTFormatting of this note might be different fro m the original. [facility] Patient Visit ID: The patient is a 51 year old male seen for evaluation of Recurrent hernias. HPI: Edgar Marquez is a 50 y.o. male who has a complex surgical history originally i n 2011 at which time he underwent a ventral hernia repair with composix mesh; this operation was complicated by apparent bowel injury requiring exploratory laparotomy and diverting col ostomy. After subsequent ostomy takedown and convalescence, the patient was noted to have a montserratian-cheese midline abdominal wall hernia defect and a defect at his stoma site. For these hernias he underwent an exploratory laparotomy, lysis of adhesions, and repair with biologic mesh with Dr. Butler on 08/19/2012. He was last seen in clinic in 05/2016. At that time he noted pain at a new epigastric herni a site at the superior edge of his midline incision. A CT was performed that showed 2, ventr al hernias that are both fat containing, with minimal encroachment of transverse colon withi n the right lateral hernia without evidence of proximal obstruction, or strangulation. He remains off of narcotics and denies constipation. He is also not smoking still and is w orking hard to control his diabetes. He has lost a good friend recently and has been feeling down. He notes his epigastric hernia is slightly larger, but not necessarily more painful. He has not been successful with weight loss. He has had recent PFTs and has an appt sched uled to see his PCP about this. Past Medical History Diagnosis Date Anxiety state, unspecified Chronic airway obstruction, not elsewhere classified ([facility]) PFTs 12/18/2011 FVC 5.19/99%, FEV1 2.82/69%, FEV1/FVC 54. Moderate obstruction with signif icant reversibility with bronchodilator. COPD (chronic obstructive pulmonary disease) ([facility]) oxygen dependent Depressive disorder, not elsewhere classified Diabetes mellitus type II on metformin GERD (gastroesophageal reflux disease) controlled on PPI Heart attack ([facility]) 2007 he was started on aspirin Hypertension SUSAN (obstructive sleep apnea) 03/28/2008 Other and unspecified hyperlipidemia Other general symptoms(780.99) Rectal fissure Seizure disorder on tegretol Unspecified asthma(493.90) Unspecified hearing loss Unspecified nonpsychotic mental disorder UTI (urinary tract infection) Past Surgical History Procedure Laterality Date Pr sinus surgery proc unlisted 2006 Abdominal hernia repair 14 stomach surgery Cochlear implant exploratory laparotomy, lysis of adhesions, and repair with biologic mesh with Dr. Butler on 08/19/2012. Allergies: Allergies Allergen Reactions Morphine Psychosis? Penicillins Rash Medications: Current Outpatient Prescriptions: albuterol 0.083% 2.5 mg /3 mL (0.083 %) inhalation soluti on for nebulization, Inhale., Disp: , Rfl: albuterol 90 mcg/actuation inhalation HFA aerosol inhaler, Inhale 2 puffs every 4 hours PRN , Disp: , Rfl: arformoterol 15 mcg/2 mL inhalation solution for nebulization, Inhale., Disp: , Rfl: Aspirin 81 mg Oral tablet, Take 1 Tab by mouth once daily., Disp: 90 Tab, Rfl: 3 atorvastatin 40 mg oral tablet, Take by mouth., Disp: , Rfl: carBAMazepine 200 mg Oral tablet, Take by mouth. One tablet in AM and two tablets in the a fternoon, Disp: , Rfl: cyclobenzaprine (FLEXERIL) 10 mg Oral tablet, Take 10 mg by mouth three times daily as need ed. Do not use longer than 2-3 weeks. , Disp: , Rfl: doxazosin 4 mg oral tablet, Take by mouth., Disp: , Rfl: escitalopram oxalate 10 mg oral tablet, Take by mouth., Disp: , Rfl: escitalopram oxalate 20 mg oral tablet, , Disp: , Rfl: furosemide 20 mg Oral tablet, Take 20 mg by mouth once daily. 1/2 tab twice a day, Disp: , Rfl: hydrochlorothiazide 25 mg Oral tablet, Take 25 mg by mouth once daily. , Disp: , Rfl: insulin glargine 100 unit/mL subcutaneous solution, Inject 14 Units under the skin (SUBC) o nce daily at bedtime., Disp: , Rfl: levothyroxine 25 mcg Oral tablet, Take 25 mcg by mouth before breakfast. , Disp: , Rfl: LORazepam (ATIVAN) 2 mg Oral tablet, Take 2 mg by mouth every four hours as needed. , Disp : , Rfl: LORazepam 2 mg oral tablet, , Disp: , Rfl: losartan 50 mg oral tablet, Take by mouth., Disp: , Rfl: lurasidone (LATUDA) 40 mg Oral tablet, Take by mouth once daily., Disp: , Rfl: lurasidone 60 mg oral tablet, Take by mouth., Disp: , Rfl: metFORMIN 1,000 mg oral tablet, Take 1,000 mg by mouth once daily., Disp: , Rfl: mirtazapine 15 mg oral tablet, Take 15 mg by mouth once daily in the evening., Disp: , Rfl: mirtazapine 30 mg oral tablet, Take 30 mg by mouth once daily in the evening., Disp: , Rfl: omeprazole (PRILOSEC) 20 mg Oral capsule,delayed release(DR/EC), Take 20 mg by mouth once d aily. , Disp: , Rfl: Family History Problem Relation Lung Disease Mother COPD (smoker) Lung Disease Sister "lung disease" (smoker) Anesthesia Neg Hx Heart Disease Father Social History Social History Marital status: Single Spouse name: N/A Number of children: N/A Years of education: N/A Occupational History None on ssi disability Social History Main Topics Smoking status: Former Smoker Packs/day: 3.00 Years: 20.00 Types: Cigarettes Quit date: 06/13/2013 Smokeless tobacco: Never Used Alcohol use 0.5 - 1.0 oz/week 1 - 2 drink(s) per week Comment: Pt buys case of beer with paycheck at start of month--drinks that and none for rest of month Drug use: Yes Special: Oral, Smoke Comment: Medical marijuana Sexual activity: No Other Topics Concern Service No Blood Transfusions No Caffeine Concern No Occupational Exposure No Hobby Hazards No Sleep Concern Yes chronic insomnia but cpap works well Stress Concern Yes Weight Concern Yes overweight but losing weight now Special Diet No Back Care No Exercise Yes not able to exercise much Social History Narrative Pt is living with his mother and stepfather in the [facility] but will be moving to his own [facility] in the [facility] soon. His sister will live with him. Frequent incarcerations in the past with much of his younger life spent in the residential syst [facility]--no [facility] time x 7 years Review of Systems: As in HPI MSK: wheelchair bound. Transfers on his own. HEENT: cochlear implant Pulm: wheezing and SOB with exertion Otherwise negative on 13 pt review Physical Exam: Vitals: BP 131/72 | Pulse 85 | Temp (Src) 36.7 C (98.1 F) (Oral) | RR 16 | Ht 1.829 m ( 6') General: healthy, alert and cooperative. HEENT: white sclera, EOMI, oropharynx clear, MMM. Neck supple. Respiratory: Unlabored, shallow, wheezes. Cardiac: Rate, rhythm, regular. No peripheral edema. Extremities: no clubbing, cyanosis or edema. GI: incision well healed, abd protuberant, 3-cm fascial defect noted in epigastrium, not in carcerated, mildly ttp. no hepatosplenomegaly, nontender to palpation in other areas of his abdomen, no masses appreciated. Ostomy site hernia not palpable on exam. Rectal: deferred. :no inguinal hernia noted Skin: No rashes or lesions noted. Psych: alert and oriented x 4, normal affect, answers questions appropriately. Laboratory Studies: No results for input(s): WBC, RBC, HB, HCT, PLT, NEUTROPERC, LYMPHPERC, MONOPERC, BASOPERC, EOSPERC in the last 4320 hours. Invalid input(s): BANDPCT No results for input(s): NA, K, CL, BICARB, BUN, CR, GLU, CA, AST, ALT, AP, TBILI, TP, ALB in the last 2160 hours. Radiology: CT ABDOMEN & PELVIS W CONTRAST Date Value Ref Range Status 06/04/2016 Final EXAM: CT of the abdomen and pelvis with contrast HISTORY: Hernia COMPARISON: 12/03/12 TECHNIQUE: CT of the abdomen and pelvis with 150 mL of Omnipaque 300 non-ionic iodinated intravenous contrast. Coronal and sagittal reformats were reviewed. FINDINGS: LOWER THORAX: Left lower lobe scar LIVER: Diffuse fatty infiltration of the liver parenchyma. Stable, tiny hypodensities noted within the dome of the liver measuring approximately 6 mm (14/1) in segment 8 likely representing hemangiomas, which are stable. Granulomatous changes noted to the right lobe of the liver, also stable. No new liver lesions identified. BILIARY: Unremarkable. SPLEEN: Unremarkable. PANCREAS: Unremarkable. ADRENALS: Unremarkable. KIDNEYS/URETERS: Mild to moderate perinephric stranding. No evidence of obstruction.. PELVIC ORGANS/BLADDER: Unremarkable. GI TRACT: No evidence of small bowel obstruction. No focal mass lesion. Normal appendix. No abnormal thickening. PERITONEUM: No free air or fluid. LYMPH NODES: 1 cm lymph node in the pericaval space VESSELS: Moderate atherosclerotic burden. No aneurysm. Contrast noted within the mesenteric vasculature. BONES AND SOFT TISSUES: Posterior changes status post ventral hernia repair identified, with mesh in place. Interval development of 2 fat containing hernias as follows: Cephalad and left of midline is a fat containing hernia with a 3 cm neck measuring 4.7 x 1.7 cm. (40/1). Lateral to the mesh on the right is a second fat containing inguinal hernia with 3.5 cm neck measuring 3.5 x 1.1 cm, with mild encroachment of underlying transverse colon without evidence of strangulation, or proximal obstruction. IMPRESSION: 2, ventral hernias that are both fat containing, with minimal encroachment of transverse colon within the right lateral hernia without evidence of proximal obstruction, or strangulation. Fatty liver. Attending Radiologists: BREANN ROSARIO MD Author: BREANN ROSARIO MD I personally reviewed the images and, if necessary, edited the report. I agree with the report as now presented. Final/Electronically signed / BREANN ROSARIO 06/04/2016 13:34 PM Impression: This is a 51 yo male with recurrent epigastric hernia following incisional millicent ia repair 3 years ago that is minimally symptomatic. Plan: Patient to follow up with his PCP in regards to COPD management- consider pulmonology consultation. Patient to work on weight loss- ideally 10-15#. Avoid inhalation of MJ Continue aggressive management of diabetes. Patient to return if hernia symptoms worsen for consideration of lap poss open repair. Wou ld need repeat stress test prior to surgery. documented in this en counter Plan of Treatment +--------+ + + + + | Date | Type | Specialty | Care Team | Description | +--------+ + + + + | 04/29/ | Diagnostic | Household Appliance Repairer | Marce Meyer | | | 2018 | Visit | | [place], [place] [address] | | | | | | [address] | | | | | | [place], [place] | | | | | | [address] | | +--------+ + + + + documented as of this encounter Visit Diagnoses + + | Diagnosis | + + | Hernia - Primary Hernia of unspecified site of abdominal cavity without mention of | | obstruction or gangrene | + + | Chronic obstructive pulmonary disease, unspecified COPD type (HCC) | + + documented in this encounter
--- OUTSIDE RECORDS SUMMARY | ~2019-04-25 | XMS | Encounter Summary ---
Demographics + + + | Address | [address] | | | [place] [address] | + + + | Home Phone | | + + + | Preferred Language | Unknown | + + + | Marital Status | Single | + + + | Sikhism Affiliation | BAP | + + + | Race | White | + + + | Ethnic Group | Not or | + + + Author + + + | Author | [facility] | + + + | Organization | [facility] | + + + | Address | Unknown | + + + | Phone | Unavailable | + + + Support + + + + + | Name | Relationship | Address | Phone | + + + + + | Margarito Owusu | ECON | [address] | | | | | [place] | | | | | [address] | | + + + + + Care Team Providers + +------+ + | Care Biomedical Photographer Name | Role | Phone | + +------+ + | Deidre Card | PCP | | + +------+ + Reason for Visit +--------+ + | Reason | Comments | +--------+ + | COPD | | +--------+ + Consultation (Routine) +--------+--------+ + + + + | Status | Reason | Specialty | Diagnoses / | Referred By | Referred To | | | | | Procedures | Contact | Contact | +--------+--------+ + + + + | Closed | | Pulmonary | Diagnoses | Mynor | Pul Faculty | | | | Disease | copd | Attila Keane, | 3rd Ppv | | | | | | MD Yip | [address] | | | | | | Hospital | [facility] | | | | | | [address] Mailcode: | | | | | | Theodora Adams | [facility] | | | | | | White | Physician's | | | | | | [address] | [address] | | | | | | [address] | [place], [place] | | | | | | Phone: | [phone] | | | | | | [phone] | Phone: | | | | | | Fax: | [phone] | | | | | | [phone] | Fax: | | | | | | | [phone] | +--------+--------+ + + + + Encounter Details +--------+---------+ + + + | Date | Type | Department | Care Team | Description | +--------+---------+ + + + | 03/28/ | Office | Pulmonary & | Urvashi Fox, | Tobacco Use | | 2007 | Visit | Critical Care | [facility] & | Disorder; Bipolar | | | | Medicine at [facility] | Affective Disorder | | | | Physicians Chris | [address] | (HCC); SUSAN | | | | [address] | [address] [place], | (Obstructive Sleep | | | | [address] Mailcode: | [place] [address] | Apnea); COPD | | | | [facility] Physician's | | | | | | [address] | | | | | | [place], [place] | | | | | | [address] | | | | | | [phone] | | | +--------+---------+ + + + [...] + + + | Blood Pressure | 120/70 | 03/28/2008 2:41 PM | | | | | PDT | | + + + + + | Pulse | 83 | 03/28/2008 2:41 PM | | | | | PDT | | + + + + + | Temperature | 36.7 C (98 F) | 03/28/2008 2:41 PM | | | | | PDT | | + + + + + | Respiratory Rate | 20 | 03/28/2008 2:41 PM | | | | | PDT | | + + + + + | Oxygen Saturation | 99% | 03/28/2008 2:41 PM | | | | | PDT | | + + + + + | Inhaled Oxygen | - | - | | | Concentration | | | | + + + + + | Weight | 115.7 kg (255 lb) | 03/28/2008 2:41 PM | | | | | PDT | | + + + + + | Height | 182.9 cm (6') | 03/28/2008 2:41 PM | | | | | PDT | | + + + + + | Body Mass Index | 34.58 | 03/28/2008 2:41 PM | | | | | PDT | | + + + + + documented in this encounter Progress Notes Margarito Oates - 03/29/2008 1:44 PM PDTI saw patient with . I agree with plans. 42 y/0 non-working man for evaluation and management obstructive lung disease. He has dyspnea, chest tightness, cough only occasionally productive. He has no recent exacerbations and no h ospitalizations past several years. He smokes 2 1/2 PPD cigarettes, stopped longest 5 years 9 years ago ( when incarcerated). He takes albut/atrovent, theophylline, albuterol MDI, Flov ent, Singulair. He is in a wheelchair/crutches secondary to ?back pain and nerve impingement . He has gained 25 pounds weight over A year or so. He has hypertension, GERD, SUSAN on CPAP, and bipolar disorder. He lives with mother, disabled secondary to low back pain. He is sche duled for upper and lower endoscopy and possible repair ventral hernia in several weeks. On exam, OK 02 sat, mild hoarseness, no neck nodes, erythematous nasal membranes, clear chest, reducible ventral hernia, no rash, no edema. Chest xray report from 2005 says normal. Spirom etry shows mild obstructive ( moderate by GOLD) with 20% improvement post-bronchodilator to almost normal. Diagnosis is COPD based on long history cigarette smoking, possible asthma as well. He has mild impairment by spirometry, reversible, stills mokes, no cor pulmonale. We addressed issues referable to COPD: 1. Cigarette smoking-discussed with him and how it effec ts all systems adversely yet COPD has reversibility. He has had modest success with nicotine replacement products-encouraged again; 2.Medications- all of limited value in current smoke rs. I would consolidate to LABA plus aerosol steroid ( Advair he has had in the past) with a lbuterol rescue. Singulair can be stopped. Later theophylline can be reduced or stopped 3. He needs address excessive weight; 4. Exercise desirable-can be done in wheelchair with arms and even legs-consider pulmonary rehab; 5.No need suppl 02 at rest, might check nocturnal o ximetry via PSG lab in home community 6. Other diseases- GERD, SUSAN are addressed and need at tention 7. Surgery, ie LVRS, transplant- not issues 8. Immunizations- did not discuss- needs Flu shot annually and Pneumovax once; 9. Health Care directive- did not discuss. Reviewed all in detail with patient and report will go to Marion Jean. We are available to review or see him again. No scripts given as he will be followed in [place]. Daniel solo signed by Margarito Oates at 03/29/2008 1:44 PM PDTUrvashi Fox - 03/28/2008 12:23 PM PDT Edgar Marquez is a 42 y.o. male referred by CYNTHIA Frank from [facility] in (fax [phone]) regarding COPD vs. Asthma and possible sleep apnea. He has been seen in the past by Dr. Warren Ivan of [place], [place] for these issues; and would like t o continue to see a ice cream dispenser for his pulmonary issues. Problem List: 1. COPD vs Asthma 2. GERD 3. Seasonal allergies 4. HTN 5. Hyperlipidemia 6. Insomnia 7. Depression 8. PTSD 9. Sinus disease s/p surgery 2006 Pulmonary Meds: Flovent 220mcg; Albuterol MDI; Deltasone?; Asthmanefrin Neb; Singulair Review of Systems Constitutional: Reports weight loss (8 lbs in past month--not intentional), malaise/fatigue and diaphoresis (sweats "all the time" but not true night sweats). Reports no fever, no chi lls and no weakness. Skin: Reports rash (on forehead from nervous scratching). Reports no itching. HENT: Reports hearing loss (he states due to chronic sinus infections). Reports no headache s, no ear pain, no nosebleeds, no congestion and no sore throat. There is no tinnitus, no ea r discharge, and no stridor. Eyes: Negative. Cardiovascular: Negative. Respiratory: Reports cough (nonproductive). Reports no hemoptysis and no sputum production . Is experiencing shortness of breath and wheezing. Gastrointestinal: Reports no heartburn, no nausea, no vomiting, no abdominal pain, no diarr hea, no constipation, no blood in stool, and no melena. Musculoskeletal: Reports back pain and falls (due to LLE weakness-chronic). Reports no myal gias, no neck pain and no joint pain. Endo/Heme/Allergies: Negative. Neurological: Reports no dizziness, no tingling, no tremors, no sensory change, no speech c hange, no focal weakness, no seizures, and no loss of consciousness. Psychiatric: Reports depression (not good control currently--changing providers). Reports no suicidal ideas, no hallucinations and no memory loss. Is nervous/anxious (very nervous--s tates cigarettes help keep him calm) and has insomnia (but can tolerate wearing cpap). There is no substance abuse. No current outpatient prescriptions on file. Allergies not on file. There were no vitals filed for this visit. Physical Exam Constitutional: He is oriented. He appears distressed (distressed in that he is anxious and fidgeting and nervously laughing during interview). He appears not toxic, not dehydrated an d not diaphoretic. HENT: Head: Normocephalic and atraumatic. Left Ear: Exernal ear is normal. Nose: Nose normal. Mouth/Throat: Oropharynx is clear and moist. Throat exhibits no oropharyngeal exudate. Eyes: Conjunctiva normal, extraocular motions normal, pupils equal, round and reactive to l ight. Right eye exhibits no discharge and no scleral icterus. Left eye exhibits no discharg e and no scleral icterus. Neck: Normal range of motion. Neck supple. No JVD present. No stridor and no tracheal devia tion present. Cardiovascular: Normal rate, regular rhythm, normal heart sounds and intact distal pulses. Exam reveals no gallop and no friction rub. No murmur heard. Pulmonary/Chest: Effort normal and breath sounds normal. He exhibits no respiratory distres s. He has no wheezes. He has no rales. He exhibits no tenderness. Abdominal: Abdomen soft. Musculoskeletal: He exhibits no edema and no tenderness. Lymphadenopathy: He has no head/neck adenopathy. Neurological: He has intact cranial nerves. He is alert and oriented. Skin: Skin is warm and pale. Rash (red areas on forehead from him scratching) noted. No spencer thema noted. He is not diaphoretic. Psychiatric: He displays normal memory. He exhibits a depressed mood (pt admits to being de pressed). He expresses no homicidal and no suicidal ideation. He expresses no suicidal plans and no homicidal plans. He is anxious and labile (speech slightly pressured and loud when t alking about current psych providers stating "they wanted to stop all my meds" and that he f eels very anxious recently). He is not agitated, not impulsive, not apathetic, not blunt and not concerned with wish fulfillment. He exhibits disordered thought content (somewhat disor dered). He exhibits appropriate behavior. He does not act flatly. DATA: PFT's 09/02: FVC=4.43(81.9% FEV1=2.44(55%) Ratio=55% Assessment and Plan: Edgar Marquez is a 42 y.o. male here for follow up of asthma. Specific questions ad dressed to us by Mr. Marquez's primary provider Marion Herrera are as follows: 1. Does Mr. Marquez require intubation for his upcoming colonoscopy/EGD? Mr. Marquez has mild airway obstruction based on his PFT's today. He does not require intu bation for these procedures. Would recommend that supplemental oxygen be availably during t he procedure; and recommend that he use his MDI's as scheduled prior to procedure. These me asures should suffice. Given his mild obstruction do not feel he is at a significant increa sed risk during these procedures requiring conscious sedation. 2. Can Mr. Marquez safely undergo surgical repair of his ventral abdominal wall hernia? His pulmonary issues do not preclude this surgery. He is at a slightly increased risk of b ronchospasm in the perioperative period; but this can be effectively managed with scheduled inhaled bronchodilators. In addition in the periop period his theophylline levels should be followed to ensure he does not drop too low or reach too high a level--notably if he is NPO for a few days. His mild airflow obstruction does not preclude his surgery. 3. Please assist with medical management of Mr. Marquez's obstructive lung disease. After our initial visit believe most of Mr. Marquez's pulmonary problems stem from COPD and chronic airway obstruction; but he does also have a clearly documented history of asthma as well. We recommend the following to simplify his medication package and did review with mattie claros; as well as consider insurance coverage. -If his insurance will cover these meds recommend: 1. Advair 250/50 1 puff BID 2. Spiriva 1 puff DAILY 3. Albuterol MDI with spacer 2-4 puffs q4hr prn for breakthrough wheeze/chest tightness/co ugh 4. Continue Theophylline ER 300mg BID for now--may consider d/c at our next visit. -If his insurance will not cover Advair and Spiriva then recommend: 1. Serevent discus 50mcg--1 puff BID OR Foradil 12mcg--1 puff BID 2. Flovent 220mcg 1 puff BID note these would be alternatives to Advair 3. Atrovent MDI with spacer 2-4 puffs QID Note this is alternative to Spiriva 4. Albuterol MDI with spacer 2-4 puffs q4hr prn for breakthru symptoms 5. Continue theophylline for now In both situations would discontinue the followin. Albuterol nebs 2. Atrovent nebs 3. Singulair If you have questions in regard to these recommendations please call. We also had a very mindy discussion about his tobacco abuse and how important it is that he quit; however he is in a tough situation as he's using the cigarettes as a way to "calm his nerves" in the setting of not having a mental health provider that he likes and to adjust h is meds. Advised that he continue to search for a provider that works for him. Would be gl ad to prescribe Chantix for him but he's not ready to consider quitting at this point. Will plan to see him in follow up in 3-4 months time to review how he is doing on the above medication changes. Also advised that if he develops questions sooner he can call. Mr. Marquez was seen and his case was reviewed with Dr. Oates as well. URVASHI FOX MD [facility] [address] [place] [address] [address] documented i n this encounter Plan of Treatment +--------+ + + + + | Date | Type | Specialty | Care Team | Description | +--------+ + + + + | 04/29/ | Diagnostic | Regional Agronomist | Marce Meyer | | | 2018 | Visit | | Eve Briseno [address] | | | | | | [address] | | | | | | [place], [place] | | | | | | [address] | | +--------+ + + + + documented as of this encounter Visit Diagnoses + + | Diagnosis | + + | Tobacco use disorder | + + | Bipolar affective disorder (HCC) Bipolar disorder, unspecified | + + | SUSAN (obstructive sleep apnea) Obstructive sleep apnea (adult) (pediatric) | + + | COPD Chronic airway obstruction, not elsewhere classified | + + documented in this encounter
--- OUTSIDE RECORDS SUMMARY | ~2019-04-25 | XMS | Encounter Summary ---
Demographics + + + | Address | [address] | | | [place] [address] | + + + | Home Phone | | + + + | Preferred Language | Unknown | + + + | Marital Status | Single | + + + | Church Affiliation | BAP | + + + | Race | White | + + + | Ethnic Group | Not or | + + + Author + + + | Author | [facility] | + + + | Organization | [facility] | + + + | Address | Unknown | + + + | Phone | Unavailable | + + + Support + + + + + | Name | Relationship | Address | Phone | + + + + + | Margarito Owusu | ECON | [address] | | | | | [place] | | | | | [address] | | + + + + + Care Team Providers + +------+ + | Care Head Inspector Name | Role | Phone | + +------+ + | Deidre Card | PCP | | + +------+ + Encounter Details +--------+ + + + + | Date | Type | Department | Care Team | Description | +--------+ + + + + | 10/20/ | Procedure - | UNKNOWN DEPARTMENT | Other, Faculty | EEG | | 2001 | | [address] [facility] | [phone] | | | | Transcribed | [address] | | | | | | [place] | | | | | | [address] | | | +--------+ + + + [...] documented as of this encounter Progress Notes Other, Faculty - 10/20/2001 12:00 AM PSTAssociated Order(s): EEG ROUTINE CLINIC DATE: 10/20/2001 EMG PROGRESS NOTE HISTORY: The patient is a 36-year-old male with left lower extremity weakness, referred for evaluation. MOTOR NERVE CONDUCTION 1. Left peroneal nerve: The distal latency is normal at 5.8 ms with a normal compound muscle action potential amplitude at 6.7 mV. The conduction velocity from the fibular head to the ankle is normal at 42 m/s, and normal from knee to the fibular head at 37 m/s. 2. Left tibial nerve: The distal latency is prolonged at 7.4 ms with a normal compound muscle action potential amplitude of 14 mV. The conduction velocity from the popliteal fossa to the ankle is normal at 39 m/s. F-WAVE STUDIES: The minimum F-wave latency in the left peroneal nerve is normal at 67 ms and normal in the left tibial nerve at 58 ms. SENSORY NERVE CONDUCTION: Left sural nerve: The sensory nerve action potential amplitude is normal at 8 mV with a normal conduction velocity of 37 m/s. ELECTROMYOGRAPHY: The following muscles in the left lower extremity were sampled using a concentric needle: The left lumbar paraspinals, vastus lateralis, vastus medialis, tibialis anterior, lateral gastrocnemius, medial gastrocnemius, and first dorsal interosseus. In the above-stated muscle, the insertional activity was normal with no spontaneous activity. The motor unit action potentials are of normal amplitude and duration. The interference pattern was full. IMPRESSION: This is a normal study. There is no evidence of neuropathy or radiculopathy. The study does not rule out a sensory radiculopathy. Hector Castro M.D. Neurology Fellow Jacquelin Borrero M.D. DK / [id number] / [id number] / [id number] / documented in this encou nter Plan of Treatment +--------+ + + + + | Date | Type | Specialty | Care Team | Description | +--------+ + + + + | 04/29/ | Diagnostic | Dinkey Motor Operator | Marce Meyer | | | 2018 | Visit | | Finn, Eve [address] [facility] | | | | | | [address] | | | | | | [place], [place] | | | | | | [address] | | +--------+ + + + + documented as of this encounter Procedures + +--------+ + + + | Procedure Name | Priori | Date/Time | Associated Diagnosis | Comments | | | ty | | | | + +--------+ + + + | EEG ROUTINE | | 10/20/2001 | | Results for this | | | | 12:00 AM | | procedure are in the | | | | PST | | results section. | + +--------+ + + + documented in this encounter Results EEG ROUTINE (10/20/2001 12:00 AM PST) + + | Procedure Note | + + | Other, Faculty - 10/20/2001 12:00 AM PST | | CLINIC DATE: 10/20/2001 EMG PROGRESS NOTE | | | | HISTORY: The patient is a 36-year-old male with left lower extremity | | weakness, referred for evaluation. | | | | MOTOR NERVE CONDUCTION | | 1. Left peroneal nerve: The distal latency is normal at 5.8 ms with a | | normal compound muscle action potential amplitude at 6.7 mV. The | | conduction velocity from the fibular head to the ankle is normal at | | 42 m/s, and normal from knee to the fibular head at 37 m/s. | | 2. Left tibial nerve: The distal latency is prolonged at 7.4 ms with a | | normal compound muscle action potential amplitude of 14 mV. The | | conduction velocity from the popliteal fossa to the ankle is normal | | at 39 m/s. | | | | F-WAVE STUDIES: The minimum F-wave latency in the left peroneal nerve is | | normal at 67 ms and normal in the left tibial nerve at 58 ms. | | | | SENSORY NERVE CONDUCTION: Left sural nerve: The sensory nerve action | | potential amplitude is normal at 8 mV with a normal conduction velocity of | | 37 m/s. | | | | ELECTROMYOGRAPHY: The following muscles in the left lower extremity were | | sampled using a concentric needle: The left lumbar paraspinals, vastus | | lateralis, vastus medialis, tibialis anterior, lateral gastrocnemius, | | medial gastrocnemius, and first dorsal interosseus. In the above-stated | | muscle, the insertional activity was normal with no spontaneous activity. | | The motor unit action potentials are of normal amplitude and duration. The | | interference pattern was full. | | | | IMPRESSION: This is a normal study. There is no evidence of neuropathy or | | radiculopathy. The study does not rule out a sensory radiculopathy. | | | | | | | | | | Hector Castro M.D. | | Neurology Fellow | | | | | | Jacquelin Borrero M.D. | | | | [facility] / | | [id number] / [id number] / [id number] / | | | | | | | + + documented in this encounter Visit Diagnoses Not on filedocumented in this encounter"
--- OUTSIDE RECORDS SUMMARY | ~2019-04-25 | XMS | Encounter Summary ---
Demographics + + + | Address | [address] | | | [place] [address] | + + + | Home Phone [...] Author + + + | Author | [facility] | + + + | Organization | [facility] | + + + | Address | Unknown | + + + | Phone | Unavailable | + + + Support + + + + + | Name | Relationship | Address | Phone | + + + + + | Margarito Owusu | ECON | [address] | | | | | [place] | | | | | [address] | | + + + + + Care Team Providers + +------+ + | Care Baggageman Name | Role | Phone | + +------+ + | Jaison Chávez MD | PCP | | + +------+ + Encounter Details +--------+ + + + + | Date | Type | Department | Care Team | Description | +--------+ + + + + | 02/03/ | Documentati | Otolaryngology | Pascual Pace, | | | 2013 | on | Cochlear Services | STEPHANIE Sewell [address] | | | | | [address] | | | | | [address] Mailcode: | [place], [place] | | | | | [address] Physician's | [id number] | | | | | [place], | | | | | | [place] [address] | | | | | | [phone] | | | +--------+ + + + [...] + | 04/29/ | Diagnostic | Car Sales Representative | Marce Meyer | | | 2019 | Visit | | Eve Briseno [address] | | | | | | [address] | | | | | | [place], [place] | | | | | | [address] | | +--------+ + + + + documented as of this encounter Visit Diagnoses Not on filedocumented in this encounter"
--- OUTSIDE RECORDS SUMMARY | ~2019-04-25 | XMS | Encounter Summary ---
Demographics + + + | Address | [address] | | | [place] [address] | + + + | Home Phone [...] Author + + + | Author | [facility] | + + + | Organization | [facility] | + + + | Address | Unknown | + + + | Phone | Unavailable | + + + Support + + + + + | Name | Relationship | Address | Phone | + + + + + | Margarito Owusu | ECON | [address] | | | | | [place] | | | | | [address] | | + + + + + Care Team Providers + +------+ + | Care Patient Services Manager Name | Role | Phone | + +------+ + | Jaison Chávez MD | PCP | | + +------+ + Reason for Visit + + + | Reason | Comments | + + + | Telephone follow-up | | + + + Encounter Details +--------+ + + + + | Date | Type | Department | Care Team | Description | +--------+ + + + + | 01/12/ | Telephone | Otolaryngology | Solange Stallworth, | Telephone follow-up | | 2013 | | Otology Services at | PA-C [address] | | | | | [facility] [address] | [address] | | | | | [address] | [place], [place] | | | | | Mailcode: [address] | [address] | | | | | Physician's [address] | [phone] | | | | | [place], [place] | | | | | | [address] | | | | | | [phone] | | | +--------+ + + + [...] + + | 04/29/ | Diagnostic | Call Out Operator | Marce Meyer | | | 2019 | Visit | | Eve Briseno [address] | | | | | | [address] | | | | | | [place] | | | | | | [address] | | +--------+ + + + + documented as of this encounter Visit Diagnoses Not on filedocumented in this encounter"
--- OUTSIDE RECORDS SUMMARY | ~2019-04-25 | XMS | Encounter Summary ---
Demographics + + + | Address | [address] | | | [place] [address] | + + + | Home Phone | | + + + | Preferred Language | Unknown | + + + | Marital Status | Single | + + + | Moravian Affiliation | BAP | + + + | Race | White | + + + | Ethnic Group | Not or | + + + Author + + + | Author | [facility] | + + + | Organization | [facility] | + + + | Address | Unknown | + + + | Phone | Unavailable | + + + Support + + + + + | Name | Relationship | Address | Phone | + + + + + | Margarito Owusu | ECON | [address] | | | | | [place] | | | | | [address] | | + + + + + Care Team Providers + +------+ + | Care Mitten Stitcher Name | Role | Phone | + +------+ + | Jaison Chávez MD | PCP | | + +------+ + Encounter Details +--------+ + + + + | Date | Type | Department | Care Team | Description | +--------+ + + + + | 08/11/ | Results | NON-[facility] EPIC | Ayana Ohara, | | | 2008 | Only | Department | [address] | | | | | | [place] | | | | | | [address] | | | | | | [phone] | | | | | | | [...] + + | 04/29/ | Diagnostic | Bpm Developer | Marce Meyer | | | 2019 | Visit | | Eve Briseno [address] [facility] | | | | | | [address] | | | | | | [place], [place] | | | | | | [address] | | +--------+ + + + + documented as of this encounter Procedures + +--------+ + + + | Procedure Name | Priori | Date/Time | Associated Diagnosis | Comments | | | ty | | | | + +--------+ + + + | CAP GLU,POC | Routin | 08/12/2008 | | Results for this | | | e | 11:23 AM | | procedure are in the | | | | PST | | results section. | + +--------+ + + + | CAP GLU,POC | Routin | 08/12/2008 | | Results for this | | | e | 6:29 AM | | procedure are in the | | | | PST | | results section. | + +--------+ + + + | CBC WITH MANUAL | Routin | 08/12/2008 | | Results for this | | DIFFERENTIAL | e | 5:20 AM | | procedure are in the | | | | PST | | results section. | + +--------+ + + + | COMPLETE METABOLIC | Routin | 08/12/2008 | | Results for this | | SET | e | 5:20 AM | | procedure are in the | | (NA,K,CL,CO2,BUN,CRE | | PST | | results section. | | AT,GLUC,CA,AST,ALT,B | | | | | | TERRY TOTAL,ALK | | | | | | PHOS,ALB,PROT TOTAL) | | | | | + +--------+ + + + | CAP GLU,POC | Routin | 08/12/2008 | | Results for this | | | e | 2:21 AM | | procedure are in the | | | | PST | | results section. | + +--------+ + + + | SHEEBA MUNIZICK ONLY | Routin | 08/12/2008 | | Results for this | | | e | 1:35 AM | | procedure are in the | | | | PST | | results section. | + +--------+ + + + | ABDOMEN AND PELVIS | Routin | 08/11/2008 | | Results for this | | WITH [id number] | e | 11:46 PM | | procedure are in the | | | | PST | | results section. | + +--------+ + + + | ABDOMEN 1 VIEW [id number] | Routin | 08/11/2008 | | Results for this | | | e | 11:46 PM | | procedure are in the | | | | PST | | results section. | + +--------+ + + + | CBC W/DIFF, REFLEX | Routin | 08/11/2008 | | Results for this | | | e | 8:20 PM | | procedure are in the | | | | PST | | results section. | + +--------+ + + + | COMPLETE METABOLIC | Routin | 08/11/2008 | | Results for this | | SET | e | 8:20 PM | | procedure are in the | | (NA,K,CL,CO2,BUN,CRE | | PST | | results section. | | AT,GLUC,CA,AST,ALT,B | | | | | | TERRY TOTAL,ALK | | | | | | PHOS,ALB,PROT TOTAL) | | | | | + +--------+ + + + | CAP GLU,POC | Routin | 08/11/2008 | | Results for this | | | e | 8:03 PM | | procedure are in the | | | | PST | | results section. | + +--------+ + + + documented in this encounter Results CAMILLE GLU,POC (08/12/2008 11:23 AM PST) + + + + + + | Component | Value | Ref Range | Performed | Pathologist | | | | | At | Signature | + + + + + + | BLOOD | 137 (H)Comment: Meter | 70 - 110 MG/DL | [facility] | | | GLUCOSE, | ID: [id number]: | | OF CARE | | | POC | [id number] Brooke Fuentes | | TESTING | | | |Loans Officer: [id number] Brooke Fuentes | | | | | | | [...] | | | + +---------+ + + CAP GLU,POC (08/12/2008 6:29 AM PST) + + + + + + | Component | Value | Ref Range | Performed | Pathologist | | | | | At | Signature | + + + + + + | BLOOD | 125 (H)Comment: Meter | 70 - 110 MG/DL | [facility] | | | GLUCOSE, | ID: [id number]: | | OF CARE | | | POC | [id number] Kadi Allison | | TESTING | | | |Loans Officer: [id number] Kadi Allison | | | | | | | [...] | | | + +---------+ + + CBC WITH MANUAL DIFFERENTIAL (08/12/2008 5:20 AM PST) + + + + + + | Component | Value | Ref Range | Performed | Pathologist | | | | | At | Signature | + + + + + + | WHITE BLOOD | 16.4 (H) | 4.3 - 11.0 X10 | [facility] | | | CELL COUNT | | 3/ul | A MEDICAL | | | | | | CENTER | | + + + + + + | WBC, | OIL PROGRAM COMPLIANCE SPECIALIST | X10 3/uL | [facility] | | | ADJUSTED | | | A MEDICAL | | | | | | CENTER | | + + + + + + | HEMOGLOBIN | 14.5 | 12.0 - 16.0 | [facility] | | | | | g/dL | A MEDICAL | | | | | | CENTER | | + + + + + + | RED BLOOD | 4.60 (L) | 4.7 - 6.1 X10 | [facility] | | | CELL COUNT | | 6/uL | A MEDICAL | | | | | | CENTER | | + + + + + + | HEMATOCRIT | 41.2 | 40.0 - 54.0 % | [facility] | | | | | | A MEDICAL | | | | | | CENTER | | + + + + + + | MCV | 89.5 | 82 - 100 fl | [facility] | | | | | | A MEDICAL | | | | | | CENTER | | + + + + + + | MCH | 31.4 | 28.0 - 32.0 pg | [facility] | | | | | | A MEDICAL | | | | | | CENTER | | + + + + + + | MCHC | 35.1 | 32 - 36 g/dL | [facility] | | | | | | A MEDICAL | | | | | | CENTER | | + + + + + + | RDW | 13.3 | 12 - 15 fL | [facility] | | | | | | A MEDICAL | | | | | | CENTER | | + + + + + + | PLATELET | 158 | 150 - 450 X10 3 | [facility] | | | COUNT | | | A MEDICAL | | | | | | CENTER | | + + + + + + | MPV | 8.0 (L) | 9.0 - 12.0 fL | [facility] | | | | | | A MEDICAL | | | | | | CENTER | | + + + + + + | NEUTROPHIL | 73.4 | 40 - 80 % | [facility] | | | % | | | A MEDICAL | | | | | | CENTER | | + + + + + + | LYMPHOCYTE | 11.6 | 10 - 45 % | [facility] | | | % | | | A MEDICAL | | | | | | CENTER | | + + + + + + | EOS % | 2.0 | 0 - 5 % | [facility] | | | | | | A MEDICAL | | | | | | CENTER | | + + + + + + | BASO % | 2.1 (H) | 0 - 1 % | [facility] | | | | | | A MEDICAL | | | | | | CENTER | | + + + + + + | MONOCYTE % | 10.9 (H) | 2 - 10 % | [facility] | | | | | | A MEDICAL | | | | | | CENTER | | + + + + + + | BANDS % | OIL PROGRAM COMPLIANCE SPECIALIST | 0 - 7 % | [facility] | | | | | | A MEDICAL | | | | | | CENTER | | + + + + + + | DIFF | OIL PROGRAM COMPLIANCE SPECIALIST | | [facility] | | | COMMENTS | | | A MEDICAL | | | | | | CENTER | | + + + + + + | NEUTRO % | 78 (H) | 40 - 70 % | [facility] | | | | | | A MEDICAL | | | | | | CENTER | | + + + + + + | LYMPHOCYTE | 12 | 10 - 45 % | [facility] | | | %, MANUAL | | | A MEDICAL | | | | | | CENTER | | + + + + + + | MONOCYTE%, | 8 | 2 - 10 % | [facility] | | | MANUAL | | | A MEDICAL | | | | | | CENTER | | + + + + + + | EOSINOPHIL% | 2 | 0 - 5 % | [facility] | | | , MANUAL | | | A MEDICAL | | | | | | CENTER | | + + + + + + | BASOPHIL%, | OIL PROGRAM COMPLIANCE SPECIALIST | 0 - 1 % | [facility] | | | MANUAL | | | A MEDICAL | | | | | | CENTER | | + + + + + + | REACTIVE | OIL PROGRAM COMPLIANCE SPECIALIST | 0.0 - 4.0 % | [facility] | | | LYMPHS % | | | A MEDICAL | | | | | | CENTER | | + + + + + + | BANDS % | OIL PROGRAM COMPLIANCE SPECIALIST | 0 - 7 % | [facility] | | | | | | A MEDICAL | | | | | | CENTER | | + + + + + + | METAMYELOCY | OIL PROGRAM COMPLIANCE SPECIALIST | 0 - 0 % | [facility] | | | BRANDON % | | | A MEDICAL | | | | | | CENTER | | + + + + + + | MYELOCYTES | OIL PROGRAM COMPLIANCE SPECIALIST | 0 - 0 % | [facility] | | | % | | | A MEDICAL | | | | | | CENTER | | + + + + + + | PROMYELOCYT | OIL PROGRAM COMPLIANCE SPECIALIST | 0 - 0 % | [facility] | | | ES % | | | A MEDICAL | | | | | | CENTER | | + + + + + + | BLASTS | OIL PROGRAM COMPLIANCE SPECIALIST | 0 - 0 % | [facility] | | | | | | A MEDICAL | | | | | | CENTER | | + + + + + + | TOTAL CELLS | 100 | % | [facility] | | | COUNTED | | | A MEDICAL | | | | | | CENTER | | + + + + + + | RBC | 1+ ANISOCYTOSIS | NORMAL | [facility] | | | MORPHOLOGY | | | A MEDICAL | | | | | | CENTER | | + + + + + + | WBC | NORM WBC MORPHOLOGY | NORMAL | [facility] | | | MORPHOLOGY | | | A MEDICAL | | | | | | CENTER | | + + + + + + | PLATELET | PLATELETS ADEQUATE | NORMAL | [facility] | | | MORPHOLOGY | | | A MEDICAL | | | | | | CENTER | | + + + + + + | NUCLEATED | OIL PROGRAM COMPLIANCE SPECIALIST | | [facility] | | | RBCS | | | A MEDICAL | | | | | | CENTER | | + + + + + + | GIANT PLT | OIL PROGRAM COMPLIANCE SPECIALIST | | [facility] | | | | | | A MEDICAL | | | | | | CENTER | | + + + + + + + + | Specimen | + + | | + + + + + + + | Performing | Address | City/State/Zipcode | Phone Number | | Organization | | | | + + + + + | [facility] | | | | | LABORATORY | | | | + + + + + | [facility] [address] [place] | [place] [address] | | | MEDICAL CENTER | Stre[address] | | | + + + + + COMPLETE METABOLIC SET (NA,K,CL,CO2,BUN,CREAT,GLUC,CA,AST,ALT,BILI TOTAL,ALK PHOS,ALB,PROT TOTAL) (08/12/2008 5:20 AM PST) + + + + + + | Component | Value | Ref Range | Performed | Pathologist | | | | | At | Signature | + + + + + + | SODIUM, | 134 (L)Comment: @Avg | 137 - 146 MEQ/L | [facility] | | | PLASMA | 133,135 = 134 08/12/08 | | A MEDICAL | | | (LAB) | [address] | | CENTER | | + + + + + + | POTASSIUM, | 3.8 | 3.5 - 5.2 MEQ/L | [facility] | | | PLASMA | | | A MEDICAL | | | (LAB) | | | CENTER | | + + + + + + | CO2 | 25 | 22 - 28 MEQ/L | [facility] | | | | | | A MEDICAL | | | | | | CENTER | | + + + + + + | CHLORIDE, | 101 | 98 - 106 MEQ/L | [facility] | | | PLASMA | | | A MEDICAL | | | (LAB) | | | CENTER | | + + + + + + | GLUCOSE, | 114 (H) | 70 - 105 MG/DL | [facility] | | | PLASMA | | | A MEDICAL | | | (LAB) | | | CENTER | | + + + + + + | BUN, PLASMA | 9 | 8 - 30 MG/DL | [facility] | | | (LAB) | | | A MEDICAL | | | | | | CENTER | | + + + + + + | CREATININE | 0.80 (L) | 0.9 - 1.3 MG/DL | [facility] | | | PLASMA | | | A MEDICAL | | | (LAB) | | | CENTER | | + + + + + + | BUN/CREATIN | 11 | 6 - 20 RATIO | [facility] | | | INE RATIO | | | A MEDICAL | | | | | | CENTER | | + + + + + + | CALCIUM, | 8.7 | 8.5 - 10.8 | [facility] | | | PLASMA | | MG/DL | A MEDICAL | | | (LAB) | | | CENTER | | + + + + + + | PHOSPHORUS, | 3.9 | 2.1 - 4.6 MG/DL | [facility] | | | PLASMA | | | A MEDICAL | | | (LAB) | | | CENTER | | + + + + + + | AST(SGOT) | 36 | 10 - 41 U/L | [facility] | | | | | | A MEDICAL | | | | | | CENTER | | + + + + + + | ALT (SGPT) | 48 | 7 - 51 U/L | [facility] | | | | | | A MEDICAL | | | | | | CENTER | | + + + + + + | ALK PHOS | 62 | 40 - 180 U/L | [facility] | | | | | | A MEDICAL | | | | | | CENTER | | + + + + + + | TOTAL | 6.9 | 6.7 - 8.5 G/DL | [facility] | | | PROTEIN, | | | A MEDICAL | | | PLASMA | | | CENTER | | | (LAB) | | | | | + + + + + + | ALBUMIN, | 4.0 | 3.5 - 5.0 G/DL | [facility] | | | PLASMA | | | A MEDICAL | | | (LAB) | | | CENTER | | + + + + + + | BILIRUBIN | 1.9 (H) | 0.2 - 1.6 MG/DL | [facility] | | | TOTAL | | | A MEDICAL | | | | | | CENTER | | + + + + + + | MAGNESIUM,P | 1.9 | 1.3 - 2.5 MEQ/L | [facility] | | | LASMA | | | A MEDICAL | | | | | | CENTER | | + + + + + + | FASTING? | LUNCH | HR | [facility] | | | | | | A MEDICAL | | | | | | CENTER | | + + + + + + + + | Specimen | + + | | + + + + + + + | Performing | Address | City/State/Zipcode | Phone Number | | Organization | | | | + + + + + | [facility] | | | | | LABORATORY | | | | + + + + + | [facility] | [place] | [place] [address] | | | MEDICAL CENTER | Streets | | | + + + + + CAP GLU,POC (08/12/2008 2:21 AM PST) + + + + + + | Component | Value | Ref Range | Performed | Pathologist | | | | | At | Signature | + + + + + + | BLOOD | 146 (H)Comment: Meter | 70 - 110 MG/DL | [facility] | | | GLUCOSE, | ID: [id number]: | | OF CARE | | | POC | [id number] Kadi Allison | | TESTING | | | |Loans Officer: [id number] Kadi Allison | | | | | | | [...] | | | + +---------+ + + SRUTHI MUNIZ ONLY (08/12/2008 1:35 AM PST) + +---------+ + + + | Component | Value | Ref Range | Performed | Pathologist | | | | | At | Signature | + +---------+ + + + | COLOR(UR) | YELLOW | YELLOW | [facility] | | | | | | A MEDICAL | | | | | | CENTER | | + +---------+ + + + | APPEARANCE | CLEAR | CLEAR | [facility] | | | | | | A MEDICAL | | | | | | CENTER | | + +---------+ + + + | SPECIFIC | < 1.005 | 1.005 - 1.030 | [facility] | | | GRAVITY | | | A MEDICAL | | | | | | CENTER | | + +---------+ + + + | PH(UR) | 7.0 | 5.0 - 8.0 | [facility] | | | | | | A MEDICAL | | | | | | CENTER | | + +---------+ + + + | PROTEIN, UA | NEG | NEGATIVE | [facility] | | | | | | A MEDICAL | | | | | | CENTER | | + +---------+ + + + | GLUCOSE, UA | NEG | NEGATIVE | [facility] | | | | | | A MEDICAL | | | | | | CENTER | | + +---------+ + + + | KETONES, UA | NEG | NEGATIVE | [facility] | | | | | | A MEDICAL | | | | | | CENTER | | + +---------+ + + + | BILIRUBIN | NEG | NEGATIVE | [facility] | | | | | | A MEDICAL | | | | | | CENTER | | + +---------+ + + + | BLOOD | TRACE | NEGATIVE | [facility] | | | | | | A MEDICAL | | | | | | CENTER | | + +---------+ + + + | NITRITES | NEG | NEGATIVE | [facility] | | | | | | A MEDICAL | | | | | | CENTER | | + +---------+ + + + | LEUKOCYTE | NEG | NEGATIVE | [facility] | | | ESTERASE | | | A MEDICAL | | | | | | CENTER | | + +---------+ + + + | UROBILINOGE | NORMAL | NORMAL AUBRIE | [facility] | | | N | | | A MEDICAL | | | | | | CENTER | | + +---------+ + + + | WHITE CELLS | 0-2 | 0 - 2 HPF | [facility] | | | | | | A MEDICAL | | | | | | CENTER | | + +---------+ + + + | RED CELLS | 0-3 | 0 - 3 HPF | [facility] | | | | | | A MEDICAL | | | | | | CENTER | | + +---------+ + + + | EPITHELIAL | NEG | RARE-MOD LPF | [facility] | | | CELLS | | | A MEDICAL | | | | | | CENTER | | + +---------+ + + + | BACTERIA | NEG | NEG HPF | [facility] | | | | | | A MEDICAL | | | | | | CENTER | | + +---------+ + + + | OTHER | OIL PROGRAM COMPLIANCE SPECIALIST | | [facility] | | | | | | A MEDICAL | | | | | | CENTER | | + +---------+ + + + | SOURCE | CATH | | [facility] | | | | | | A MEDICAL | | | | | | CENTER | | + +---------+ + + + + + | Specimen | + + | | + + + + + + + | Performing | Address | City/State/Zipcode | Phone Number | | Organization | | | | + + + + + | [facility] | | | | | LABORATORY | | | | + + + + + | [facility] | [place] | [place] [address] | | | [facility] | Streets | | | + + + + + ABDOMEN AND PELVIS WITH [id number] (08/11/2008 11:46 PM PST) + + | Specimen | + + | | + + + + + | Narrative | Performed At | + + + | CT ABDOMEN AND PELVIS WITH CONTRAST CLINICAL HISTORY: Rule out | [facility] | | perforation, obstruction. Postop abdominal pain. | DEPARTMENT OF | | TECHNIQUE: Multiple contiguous axial 5.0-mm images were obtained | RADIOLOGY | | through the abdomen and pelvis following the administration of IV and | | | oral contrast. COMPARISON: 08/01/2008. FINDINGS IN THE | | | ABDOMEN: The lung bases are clear. Fatty infiltration of the | | | liver is noted. The liver is otherwise within normal | | | limits. The spleen, gallbladder, adrenal glands, and pancreas are | | | unremarkable. A tiny simple cyst is noted within the inferior pole | | | of the left kidney. The remainder of the left kidney as well as | | | the right kidney are within normal limits. Postsurgical changes | | | from ventral hernia repair are identified. In the anterior hernia | | | sac, there is soft tissue attenuation noted. There is a loop of | | | small bowel adjacent to this. However, without sufficient oral | | | contrast within the small bowel, it is difficult to determine whether | | | this represents a seroma/hematoma versus herniated small | | | bowel. The remainder of the unopacified bowel loops are grossly | | | unremarkable. FINDINGS IN THE PELVIS: Small-bowel loops within the | | | pelvis are unremarkable. The rectosigmoid colon, prostate gland, | | | and seminal vesicles are within normal limits. The urinary bladder | | | is decompressed secondary to a Saldana catheter placement. IMPRESSION | | | 1. No evidence of intestinal obstruction or free | | | air. 2. Status post ventral hernia repair. There | | | is soft tissue opacity within the | | | anterior mid hernia sac. There is also a loop of | | | small bowel adjacent to it. Without | | | oral contrast opacifying the entire | | | small bowel, it is difficult to determine whether this | | | represents herniated small bowel versus | | | hematoma/seroma. [id number] | | + + + + -----+ | Procedure Note | + -----+ | Interface, Radiology Results - 03/16/2015 11:[address] ABDOMEN AND PELVIS WITH | | CONTRASTCLINICAL HISTORY: Rule out perforation, obstruction. Postopabdominal | | pain.TECHNIQUE: Multiple contiguous axial 5.0-mm images were obtainedthrough the | | abdomen and pelvis following the administration of IV andoral contrast.COMPARISON: | | 08/01/2008.FINDINGS IN THE ABDOMEN: The lung bases are clear. Fattyinfiltration of the | | liver is noted. The liver is otherwise withinnormal limits. The spleen, gallbladder, | | adrenal glands, and pancreasare unremarkable. A tiny simple cyst is noted within the | | inferiorpole of the left kidney. The remainder of the left kidney as well asthe right | | kidney are within normal limits. Postsurgical changes fromventral hernia repair are | | identified. In the anterior hernia sac,there is soft tissue attenuation noted. There | | is a loop of smallbowel adjacent to this. However, without sufficient oral | | contrastwithin the small bowel, it is difficult to determine whether thisrepresents a | | seroma/hematoma versus herniated small bowel. Theremainder of the unopacified bowel | | loops are grossly unremarkable.FINDINGS IN THE PELVIS: Small-bowel loops within the | | pelvis areunremarkable. The rectosigmoid colon, prostate gland, and seminalvesicles are | | within normal limits. The urinary bladder isdecompressed secondary to a Saldana catheter | | placement.IMPRESSION1. No evidence of intestinal obstruction or free | | air.2. Status post ventral hernia repair. There is soft tissue | | opacity within the anterior mid hernia sac. There is also | | a loop of small bowel adjacent to it. Without oral | | contrast opacifying the entire small bowel, it is difficult | | to determine whether this represents herniated small bowel | | versus hematoma/seroma.[id number] | |IMPRESSION | |1. No evidence of intestinal obstruction or free air. | |2. Status post ventral hernia repair. There is soft tissue opacity | | within the anterior mid hernia sac. There is also a loop of | | small bowel adjacent to it. Without oral contrast opacifying the | | entire small bowel, it is difficult to determine whether this | | represents herniated small bowel versus hematoma/seroma. | |[id number] | + -----+ + +---------+ + + | Performing | Address | City/State/Zipcode | Phone Number | | Organization | | | | + +---------+ + + | [facility] | | | | | RADIOLOGY | | | | + +---------+ + + ABDOMEN 1 VIEW [id number] (08/11/2008 11:46 PM PST) + + | Specimen | + + | | + + + + + | Narrative | Performed At | + + + | SINGLE VIEW OF THE ABDOMEN CLINICAL HISTORY: Postop abdominal | [facility] | | pain. Rule out free air. TECHNIQUE: A limited AP view of the | DEPARTMENT OF | | abdomen was obtained. COMPARISON: 08/07/2008. FINDINGS: The | RADIOLOGY | | study is limited, as only portions of the abdomen were able to be | | | obtained, as the patient could not tolerate additional imaging. No | | | free air is seen underneath the visualized right hemidiaphragm or | | | portions of the left hemidiaphragm. There is no obvious | | | obstruction noted within the included bowel. Postsurgical changes | | | from ventral hernia repair are noted within the mid abdomen. | | | IMPRESSION: No free air is visualized underneath the right | | | hemidiaphragm or underneath the medial left hemidiaphragm. [id number] | | + + + + + | Procedure Note | + + | Interface, Radiology Results - 03/16/2015 11:52 AM PDT SINGLE VIEW OF THE ABDOMEN | | CLINICAL HISTORY: Postop abdominal pain. Rule out free air. | | TECHNIQUE: A limited AP view of the abdomen was obtained. | | COMPARISON: 08/07/2008. | | FINDINGS: The study is limited, as only portions of the abdomen were | | able to be obtained, as the patient could not tolerate additional | | imaging. No free air is seen underneath the visualized right | | hemidiaphragm or portions of the left hemidiaphragm. There is no | | obvious obstruction noted within the included bowel. Postsurgical | | changes from ventral hernia repair are noted within the mid abdomen. | | IMPRESSION: No free air is visualized underneath the right | | hemidiaphragm or underneath the medial left hemidiaphragm. | | [id number] | + + + +---------+ + + | Performing | Address | City/State/Zipcode | Phone Number | | Organization | | | | + +---------+ + + | [facility] | | | | | [facility]IOLOGY | | | | + +---------+ + + CBC W/DIFF REFLEX (08/11/2008 8:20 PM PST) + + + + + + | Component | Value | Ref Range | Performed | Pathologist | | | | | At | Signature | + + + + + + | WHITE BLOOD | 19.0 (H) | 4.3 - 11.0 X10 | [facility] | | | CELL COUNT | | 3/ul | A MEDICAL | | | | | | CENTER | | + + + + + + | HEMOGLOBIN | 15.1 | 12.0 - 16.0 | [facility] | | | | | g/dL | A MEDICAL | | | | | | CENTER | | + + + + + + | RED BLOOD | 4.83 | 4.7 - 6.1 X10 | [facility] | | | CELL COUNT | | 6/uL | A MEDICAL | | | | | | CENTER | | + + + + + + | HEMATOCRIT | 42.8 | 40.0 - 54.0 % | [facility] | | | | | | A MEDICAL | | | | | | CENTER | | + + + + + + | MCV | 88.7 | 82 - 100 fl | [facility] | | | | | | A MEDICAL | | | | | | CENTER | | + + + + + + | MCH | 31.3 | 28.0 - 32.0 pg | [facility] | | | | | | A MEDICAL | | | | | | CENTER | | + + + + + + | MCHC | 35.3 | 32 - 36 g/dL | [facility] | | | | | | A MEDICAL | | | | | | CENTER | | + + + + + + | RDW | 12.9 | 12 - 15 fL | [facility] | | | | | | A MEDICAL | | | | | | CENTER | | + + + + + + | PLATELET | 190 | 150 - 450 X10 3 | [facility] | | | COUNT | | | A MEDICAL | | | | | | CENTER | | + + + + + + | MPV | 7.9 (L) | 9.0 - 12.0 fL | [facility] | | | | | | A [facility] | | | | | | CENTER | | + + + + + + | NEUTROPHIL | 67.6 | 40 - 80 % | [facility] | | | % | | | A MEDICAL | | | | | | CENTER | | + + + + + + | LYMPHOCYTE | 13.8 | 10 - 45 % | [facility] | | | % | | | A [facility] | | | | | | CENTER | | + + + + + + | EOS % | 2.3 | 0 - 5 % | [facility] | | | | | | A [facility] | | | | | | CENTER | | + + + + + + | BASO % | 4.2 (H) | 0 - 1 % | [facility] | | | | | | A [facility] | | | | | | CENTER | | + + + + + + | MONOCYTE % | 12.1 (H) | 2 - 10 % | [facility] | | | | | | A [facility] | | | | | | CENTER | | + + + + + + | BANDS % | OIL PROGRAM COMPLIANCE SPECIALIST | 0 - 7 % | [facility] | | | | | | A [facility] | | | | | | CENTER | | + + + + + + | CBC | ERROR FLAGS -HEMATOLOGY | | [facility] | | | COMMENTS | INSTR. OIL PROGRAM COMPLIANCE SPECIALIST | | A MEDICAL | | | | | | CENTER | | + + + + + + | CBC | DEFINITIVE FLAG Y | | [facility] | | | COMMENTS | | | A [facility]ICAL | | | | | | CENTER | | + + + + + + | CBC | SUSPECT FLAG Y | | [facility] | | | COMMENTS | | | A [facility] | | | | | | CENTER | | + + + + + + | CBC | CONDITIONAL FLAG Y | | [facility] | | | COMMENTS | | | A [facility]ICAL | | | | | | CENTER | | + + + + + + | DIFF | AGREE | | [facility] | | | COMMENTS | Comment: | | A MEDICAL | | | | AGREE= | | CENTER | | | | < 10 % BANDS | | | | | | < 10 % EOS OR BASOS | | | | | | NO REACTIVE LYMPHS | | | | | | NO IMMATURE CELLS | | | | | | | | | | + + + + + + + + | Specimen | + + | | + + + + + + + | Performing | Address | City/State/Zipcode | Phone Number | | Organization | | | | + + + + + | [facility] | | | | | LABORATORY | | | | + + + + + | [facility] | [address] [place] | [place] [address] | | | [facility] | Streets | | | + + + + + COMPLETE METABOLIC SET (NA,K,CL,CO2,BUN,CREAT,GLUC,CA,AST,ALT,BILI TOTAL,ALK PHOS,ALB,PROT TOTAL) (08/11/2008 8:20 PM PST) + + + + + + | Component | Value | Ref Range | Performed | Pathologist | | | | | At | Signature | + + + + + + | SODIUM, | 130 (L) | 137 - 146 MEQ/L | [facility] | | | [facility] | | | A MEDICAL | | | (LAB) | | | CENTER | | + + + + + + | POTASSIUM, | 3.0Comment: @THIS IS A | 3.5 - 5.2 MEQ/L | [facility] | | | PLASMA | CRITICAL VALUE AND MUST | | A MEDICAL | | | (LAB) | BE CALLED TO THE DR@OP | | CENTER | | | | OR THE NURSING MODULE | | | | | | AND THE NURSE TAKING | | | | | | CARE OF@PATIENT IF | | | | | | IP. DOCUMENT THE CALL | | | | | | BY COMPLETING THE | | | | | | F@LINE.@RESULT CALLED | | | | | | [address] TO | | | | | | BROUGHT TO ER@Avg | | | | | | 3.0,3.0 = 3.0 08/11/08 | | | | | | 2055 LA.L | | | | + + + + + + | CO2 | 23 | 22 - 28 MEQ/L | [facility] | | | | | | A MEDICAL | | | | | | CENTER | | + + + + + + | CHLORIDE, | 95 (L) | 98 - 106 MEQ/L | [facility] | | | PLASMA | | | A MEDICAL | | | (LAB) | | | CENTER | | + + + + + + | GLUCOSE, | 129 (H) | 70 - 105 MG/DL | [facility] | | | PLASMA | | | A MEDICAL | | | (LAB) | | | CENTER | | + + + + + + | BUN, PLASMA | 10 | 8 - 30 MG/DL | [facility] | | | (LAB) | | | A MEDICAL | | | | | | CENTER | | + + + + + + | CREATININE | 0.90 | 0.9 - 1.3 MG/DL | [facility] | | | PLASMA | | | A MEDICAL | | | (LAB) | | | CENTER | | + + + + + + | BUN/CREATIN | 11 | 6 - 20 RATIO | [facility] | | | INE RATIO | | | A MEDICAL | | | | | | CENTER | | + + + + + + | CALCIUM, | 9.2 | 8.5 - 10.8 | [facility] | | | PLASMA | | MG/DL | A MEDICAL | | | (LAB) | | | CENTER | | + + + + + + | AST(SGOT) | 43 (H) | 10 - 41 U/L | [facility] | | | | | | A MEDICAL | | | | | | CENTER | | + + + + + + | ALT (SGPT) | 57 (H) | 7 - 51 U/L | [facility] | | | | | | A MEDICAL | | | | | | CENTER | | + + + + + + | ALK PHOS | 59 | 40 - 180 U/L | [facility] | | | | | | A MEDICAL | | | | | | CENTER | | + + + + + + | TOTAL | 7.5 | 6.7 - 8.5 G/DL | [facility] | | | PROTEIN, | | | A MEDICAL | | | PLASMA | | | CENTER | | | (LAB) | | | | | + + + + + + | ALBUMIN, | 4.5 | 3.5 - 5.0 G/DL | [facility] | | | PLASMA | | | A MEDICAL | | | (LAB) | | | CENTER | | + + + + + + | BILIRUBIN | 2.1 (H) | 0.2 - 1.6 MG/DL | [facility] | | | TOTAL | | | A MEDICAL | | | | | | CENTER | | + + + + + + | BILIRUBIN | 0.2 | 0.0 - 0.3 MG/DL | [facility] | | | DIRECT | | | A MEDICAL | | | | | | CENTER | | + + + + + + | INDIRECT | 1.9 (H) | 0.1 - 1.0 MG/DL | [facility] | | | BILIRUBIN | | | A MEDICAL | | | | | | CENTER | | + + + + + + | FASTING? | UNK | HR | [facility] | | | | | | A MEDICAL | | | | | | CENTER | | + + + + + + + + | Specimen | + + | | + + + + + + + | Performing | Address | City/State/Zipcode | Phone Number | | Organization | | | | + + + + + | [facility] | | | | | LABORATORY | | | | + + + + + | [facility] | And | [place] [address] | | | [facility] | Streets | | | + + + + + CAP GLU,POC (08/11/2008 8:03 PM PST) + + + + + + | Component | Value | Ref Range | Performed | Pathologist | | | | | At | Signature | + + + + + + | BLOOD | 117 (H)Comment: Meter | 70 - 110 MG/DL | [facility] | | | GLUCOSE, | ID: [id number]: | | OF CARE | | | POC | [id number] Carlos Fitzpatrick | | TESTING | | | | | | | [...]
--- OUTSIDE RECORDS SUMMARY | ~2019-04-25 | XMS | Encounter Summary ---
Demographics + + + | Address | [address] | | | [place] [address] | + + + | Home Phone [...] Author + + + | Author | [facility] | + + + | Organization | [facility] | + + + | Address | Unknown | + + + | Phone | Unavailable | + + + Support + + + + + | Name | Relationship | Address | Phone | + + + + + | Margarito Owusu | ECON | [address] | | | | | [place] | | | | | [address] | | + + + + + Care Team Providers + +------+ + | Care Hard Hat Diver Name | Role | Phone | + +------+ + | Cee Triana MD | PCP | Unavailable | + +------+ + Reason for Visit + + + | Reason | Comments | + + + | Follow-up visit | | + + + Consultation (Routine) +--------+ + + + + + | Status | Reason | Specialty | Diagnoses / | Referred By | Referred To | | | | | Procedures | Contact | Contact | +--------+ + + + + + | Closed | Specialty | Surgery | Diagnoses | Non-[facility] | Kieran, | | | Services | | Ventral | Epic Dept | MD Lalo | | | Required | | hernia | | [address] | | | | | Procedures | | [address] | | | | | CONSULT TO | | Tj Palacios, | | | | | SURGERY - | | [place] | | | | | GENERAL | | [address] | | | | | | | Phone: | | | | | | | [phone] | | | | | | | Fax: | | | | | | | [phone] | +--------+ + + + + + Encounter Details +--------+---------+ + + + | Date | Type | Department | Care Team | Description | +--------+---------+ + + + | 09/29/ | Office | Digestive Health | Ayana Butler W, | Infected seroma, | | 2012 | Visit | Center at [facility] [address] | [address] | postoperative | | | | [address] | [place], [place] | (Primary Dx) | | | | Mailcode: Center | [address] | | | | | for Health and | [phone] | | | | | Healing, [address] | | | | | | [place], [place] | | | | | | [address] | | | | | | [phone] | | | +--------+---------+ + + + [...] + + + | Blood Pressure | 131/84 | 09/29/2012 3:53 PM | | | | | PST | | + + + + + | Pulse | 98 | 09/29/2012 3:53 PM | | | | | PST | | + + + + + | Temperature | 37 C (98.6 F) | 09/29/2012 3:53 PM | | | | | PST | | + + + + + | Respiratory Rate | 20 | 09/29/2012 3:53 PM | | | | | PST | | + + + + + | Oxygen Saturation | - | - | | + + + + + | Inhaled Oxygen | - | - | | | Concentration | | | | + + + + + | Weight | 116.1 kg (255 lb | 09/29/2012 3:53 PM | | | | 14.4 oz) | PST | | + + + + + | Height | 184.8 cm (6' 0.75") | 09/29/2012 3:53 PM | | | | | PST | | + + + + + | Body Mass Index | 33.99 | 09/29/2012 3:53 PM | | | | | PST | | + + + + + documented in this encounter Progress Notes Ayana Butler MD - 09/29/2012 4:29 PM PST09/29/2012 [facility] Surgery PO visit Edgar Marquez presents 1 months status post lap VHR complicated by infected seroma h ere for IR drain removal. Current concerns include: none- Is here to have drain removed. It has put out <30 ml a day for 3-4 days. Drainage is serous- not purulent. Denies diarrhea, fevers, chills. Mild pain at site of drain. Incisions well healing. No abd bulge. Pain improved. Pt denies: fever, chills, nausea, vomiting. Physical exam: BP 131/84 | Pulse 98 | Temp (Src) 37 C (98.6 F) (Oral) | RR 20 | Ht 1.848 m (6' 0.75") | Wt 116.075 kg (255 lb 14.4 oz) | BMI 33.99 kg/(m^2) General appearance: healthy, alert, cooperative and sitting in wheel chair Lungs: breathing easily Abdomen: soft, flat, no peritoneal signs. IR drain in place RLQ with min serous drainage. Assessment: The patient is a 47 yo male s/p lap VHR complicated by infected seroma. Plan: Patient will follow up in 2wks. Drain removed without incident. No activity restrictions. Avoid constipation- consider BID miralax PRN. Ayana Butler MD Acquisitions Librarian Division of General and Gastrointestinal Surgery Department of Surgery, L[address]A [address] [facility] [place] [address] documented in this en counter Plan of Treatment +--------+ + + + + | Date | Type | Specialty | Care Team | Description | +--------+ + + + + | 04/29/ | Diagnostic | Principal Network Architect | Mitch Marce | | | 2018 | Visit | | Eve Briseno [address] | | | | | | [address] | | | | | | [facility] | | | | | | [address] | | +--------+ + + + + documented as of this encounter Visit Diagnoses + + | Diagnosis | + + | Infected seroma, postoperative - Primary Infected postoperative seroma | + + documented in this encounter
--- OUTSIDE RECORDS SUMMARY | ~2019-04-25 | XMS | Encounter Summary ---
Demographics + + + | Address | [address] | | | [place] [address] | + + + | Home Phone | | + + + | Preferred Language | Unknown | + + + | Marital Status | Single | + + + | Evangelical Affiliation | BAP | + + + | Race | White | + + + | Ethnic Group | Not or | + + + Author + + + | Author | [facility] | + + + | Organization | [facility] | + + + | Address | Unknown | + + + | Phone | Unavailable | + + + Support + + + + + | Name | Relationship | Address | Phone | + + + + + | Margarito Owusu | ECON | [address] | | | | | [place] | | | | | [address] | | + + + + + Care Team Providers + +------+ + | Care Cofounder Name | Role | Phone | + +------+ + | Jaison Chávez MD | PCP | | + +------+ + Reason for Visit + + + | Reason | Comments | + + + | Postoperative Check | Right revision canal wall down mastoidectomy 12/22/13 | + + + Encounter Details +--------+---------+ + + + | Date | Type | Department | Care Team | Description | +--------+---------+ + + + | 01/17/ | Office | Otolaryngology | Willie Plunkett, | Recurrent / residual | | 2013 | Visit | Otology Services at | MD | cholesteatoma post | | | | [facility] [address] | | mastoidectomy, right | | | | [address] | | (Primary Dx); Other | | | | Mailcode: PV01 | | acute otitis | | | | [facility] | | externa | | | | [place], [place] | | | | | | [address] | | | | | | [phone] | | | +--------+---------+ + + + [...] documented as of this encounter Progress Notes Willie Plunkett MD - 01/24/2014 8:21 AM PDTFormatting of this note might be different fro harlan the original. NEUROTOLOGY CLINIC FOLLOW-UP NOTE Chief Complaint Patient presents with Postoperative Check Right revision canal wall down mastoidectomy 12/22/13 SUBJECTIVE:Edgar Marquez is a 48 y.o. male here today on a follow-up basis. He came in last week for severe pain and was unable to wait until his postop appointment. He was pl aced on antibiotics and drops. The pain he described at his last appointment has improved, but is still quite bothersome. He has had to continue narcotic pain meds throughout. Still having foul smelling drainage from the ear. .Uses Medical marijuana for chronic pain with back, legs. Does not typically take narcotic pain meds. Has been taking 7.5 mg norco. He also has a Left CI - No problems with left ear. + Diabetes, COPD Current Medications: Current Outpatient Prescriptions Medication Sig albuterol 90 mcg/actuation Inhalation HFA Aerosol Inhaler Inhale every four hours as ne eded. Aspirin 81 mg Oral tablet Take 1 Tab by mouth once daily. carBAMazepine 200 mg Oral tablet Take by mouth. One tablet in AM and two tablets in e afternoon ciprofloxacin 0.3 % ophthalmic drops Instill 2 drops into the right ear two times daily . Instill 3 drops instead of 2 drops into right ear two times daily cyclobenzaprine (FLEXERIL) 10 mg Oral tablet Take 10 mg by mouth three times daily as n eeded. Do not use longer than 2-3 weeks. dexamethasone 0.1 % ophthalmic drops Instill 2 drops into the right ear two times daily . docusate sodium (COLACE) 100 mg Oral capsule Take 1 Cap by mouth two times daily. fluticasone-salmeterol 250-50 mcg/dose Inhalation Disk with Device Inhale 1 Puff two ti mes daily. furosemide 20 mg Oral tablet Take 20 mg by mouth once daily. 1/2 tab twice a day hydrochlorothiazide 25 mg Oral tablet Take 25 mg by mouth once daily. HYDROcodone-acetaminophen (NORCO) 7.5-325 mg oral tablet Take 1 tablet by mouth every f our hours as needed for moderate pain or severe pain. Not to exceed 3250 mg of acetaminophen from all products per 24 hour period. insulin glargine 100 unit/mL subcutaneous solution Inject 14 Units under the skin (SUBC ) once daily at bedtime. ipratropium 0.02 % inhalation solution Inhale three times daily. ketorolac 10 mg oral tablet Take 1 tablet by mouth every six hours as needed for modera te pain or severe pain. Maximum daily dose: 40 mg/day; Maximum duration of therapy: 5 days levothyroxine 25 mcg Oral tablet Take 25 mcg by mouth before breakfast. lisinopril 40 mg oral tablet Take 40 mg by mouth once daily. LORazepam (ATIVAN) 2 mg Oral tablet Take 2 mg by mouth every four hours as needed. lurasidone (LATUDA) 40 mg Oral tablet Take by mouth once daily. magnesium hydroxide (KOCH MILK OF MAGNMature Women's [employer] Solutions) 400 mg/5 mL Oral Suspension Take 30 mL by mouth once daily as needed. metFORMIN 1,000 mg oral tablet Take 1,000 mg by mouth once daily. mirtazapine 30 mg oral tablet Take 30 mg by mouth once daily in the evening. omeprazole (PRILOSEC) 20 mg Oral capsule,delayed release(DR/EC) Take 20 mg by mouth onc e daily. polyethylene glycol (MIRALAX) 17 gram/dose Oral Powder Take 17 g by mouth once daily. polyethylene glycol 17 gram/dose Oral Powder Take 17 g by mouth two times daily. prazosin 5 mg Oral capsule Take 5 mg by mouth once daily. prochlorperazine 5 mg Oral tablet Take 1 Tab by mouth every six hours as needed for yoel sea/vomiting. Max dose: 40 mg/day promethazine 25 mg oral tablet Take 25 mg by mouth four times daily as needed for nause a/vomiting. propranolol 40 mg Oral tablet Take 40 mg by mouth two times daily. risperiDONE 1 mg oral tablet Take 1 mg by mouth once daily at bedtime. senna-docusate (SENNA LAXATIVE) 8.6-50 mg Oral tablet Take 1 Tab by mouth two times ryann ly. simethicone chew 80 mg oral tablet,chewable Take 80 mg by mouth four times daily as nee ded for bloating. tiotropium 18 mcg Inhalation capsule, w/inhalation device Inhale 18 mcg once daily. topiramate 25 mg Oral tablet Take 25 mg by mouth once daily at bedtime. No current facility-administered medications for this visit. Allergies/Adverse Drug Reactions: Allergies Allergen Reactions Morphine Psychosis? Penicillins Rash OBJECTIVE: Filed Vitals: 01/17/2014 2:10 PM PainSc: 09 - Very Severe to Worst Possible Pain PainLoc: Ear (Right) GEN:Alert and oriented, very uncomfortable, in wheelchair. HEENT: Face/Scalp: Eyes:PERRLA and EOM's intact Ears: Left CI Right: Post auricular incision with mild erythema and drainage inferiorly. Tenderness with palpation in this area but no fluctuance. EAC with wide meatus. Copious foul smelling purule nt drainage was removed with swab, and then ciprodex drops placed in ear. Small area of gran ulation tissue within the posterior aspect of the mastoid bowl. Cranial Nerves:Facial movement and sensation intact ASSESSMENT: Edgar Marquez is a 48 year old male 4 weeks s/p right revision canal wall down mastoidectomy with severe pain and suspected post-op infection of mastoid cavity. Left cochlear implant- no concerns. PLAN: Refilled [place] Finish antibiotic rx RTC 2 weeks Willie Plunkett MD Smoking Pipe Liner Otology, Neurotology & Skull Base Surgery documented in this en counter Plan of Treatment +--------+ + + + + | Date | Type | Specialty | Care Team | Description | +--------+ + + + + | 04/29/ | Diagnostic | Vocational Nurse | Marce Meyer | | | 2019 | Visit | | K, AuD [address] [facility] [facility] | | | | | | [facility] | | | | | | [place], [place] | | | | | | [address] | | +--------+ + + + + documented as of this encounter Visit Diagnoses + + | Diagnosis | + + | Recurrent / residual cholesteatoma post mastoidectomy, right - Primary | + + | Other acute otitis externa | + + documented in this encounter"
--- OUTSIDE RECORDS SUMMARY | ~2019-04-25 | XMS | Encounter Summary ---
Demographics + + + | Address | [address] | | | [place] [address] | + + + | Home Phone | | + + + | Preferred Language | Unknown | + + + | Marital Status | Single | + + + | Jainism Affiliation | BAP | + + + | Race | White | + + + | Ethnic Group | Not or | + + + Author + + + | Author | [facility] | + + + | Organization | [facility] | + + + | Address | Unknown | + + + | Phone | Unavailable | + + + Support + + + + + | Name | Relationship | Address | Phone | + + + + + | Margarito Owusu | ECON | [address] | | | | | [place] | | | | | [address] | | + + + + + Care Team Providers + +------+ + | Care Senior Account Director Name | Role | Phone | + +------+ + | Cee Triana MD | PCP | Unavailable | + +------+ + Reason for Visit + + + | Reason | Comments | + + + | Return Patient | | + + + Benefits Check (Routine) +--------+--------+ + + + + | [...] | | | | | | | [address] | | | | | | | [address] | | | | | | | Mailcode: | | | | | | | Center for | | | | | | | Health and | | | | | | | Healing, | | | | | | | Building [address] | | | | | | | [place], [place] | | | | | | | [address] | | | | | | | Phone: | | | | | | | [phone] | | | | | | | Fax: | | | | | | | [phone] | +--------+--------+ + + + + Encounter Details +--------+---------+ + + + | Date | Type | Department | Care Team | Description | +--------+---------+ + + + | 12/22/ | Office | Digestive Health | Ayana Butler, | History of hernia | | 2012 | Visit | Center at [facility] [address] | MD [address] | repair (Primary Dx); | | | | [address] | [place], [place] | Open wound of | | | | Mailcode: Center | [address] | abdomen | | | | for Health and | [phone] | | | | | Healing, [address] | | | | | | [place], [place] | | | | | | [address] | | | | | | [phone] | | | +--------+---------+ + + + [...] + + + | Blood Pressure | 125/83 | 12/22/2012 2:19 PM | | | | | PDT | | + + + + + | Pulse | 100 | 12/22/2012 2:19 PM | | | | | PDT | | + + + + + | Temperature | 36.8 C (98.2 F) | 12/22/2012 2:19 PM | | | | | PDT | | + + + + + | Respiratory Rate | 16 | 12/22/2012 2:19 PM | | | | | PDT [...] encounter Progress Notes Ayana Butler MD - 12/23/2012 12:34 PM PDTPt clinically well. No evidence of hernia on exam. Outside CT reviewed. Small fluid collections greatly resolving since last study with some soft tissue edema. Small 2mm opening at superior aspect of midline incision is draining seropurulent fluid (ve ry minimal). No erythema or fluctuance. Continue wound care. Recommend 3 wks abx for small fluid collections above mesh- no further drainage recommended . Ayana Butler MD Bradley Linebacker Crewmember Division of General and Gastrointestinal Surgery Department of Surgery, [address] [facility] [place] [address] asiel Santiago M D - 12/22/2012 2:23 PM PDT [facility] Progress Note Author: JASIEL COATES MD Attending: Ayana Butler MD ID: Edgar Marquez is a 47 y.o. M s/p VHR 07/2012 complicated by post-operative infected s eroma s/p IR drainage 08/2012 who subsequently re-accumulated a seroma which he lanced himsel f. This was then I&D'd in clinic. Cultures taken at the time were negative. CT scan 3 did not reveal residual drainable fluid collection. Subjective: Patient reportedly went to [place] ED over weekend with low grade temperatures, firmness, kang n over surgical site. A CT scan was performed and per patient there was evidence of abscess. No further intervention was done in the ED and he was discharged with antibiotics. Per RN t elephone encounter yesterday, patient when home and opened up area. Today he denies opening up the area. Exam: Filed Vitals: 12/22/2012 2:19 PM BP: 125/83 Pulse: 100 Temp: 36.8 C (98.2 F) TempSrc: Oral Resp: 16 PainSc: 10 - Worst Possible Pain Gen - NAD, in wheelchair Pulm - Unlabored Abd - Healing midline wound, small 2mm opening along midline wound with predominantly seros anguinous output though some purulent material expressed as well, no significant overlying s kin changes, no fluctuance/induration palpated Assessment and Plan: Edgar Marquez is a 47 y.o. male s/p open VHR with biologic mesh complicated by post- operative seroma s/p I&D now with small 2mm opening along midline wound draining serosanguin ous fluid with some purulent drainage as well. - Small opening packed with 1/4" NuGauze in clinic - Patient instructed to pack daily. Supplies given. - Bactrim DS BID x 21 - RTC for fevers, worsening drainage, or any other concerns The attending of record for this patient encounter is Dr. Butler who agrees with the above assessment and plan. Jasiel Coates MD Resident PGY-1 [facility] Dept. of Surgery Pager [phone] documented in this encounter Plan of Treatment +--------+ + + + + | Date | Type | Specialty | Care Team | Description | +--------+ + + + + | 04/29/ | Diagnostic | Supervisor Logging | Marce Meyer | | | 2018 | Visit | | Eve Briseno [address] [facility] | | | | | | [address] | | | | | | [place], [place] | | | | | | [address] | | +--------+ + + + + documented as of this encounter Visit Diagnoses + + | Diagnosis | + + | History of hernia repair - Primary Other postprocedural status | + + | Open wound of abdomen Open wound of abdominal wall, anterior, without mention of | | complication | + + documented in this encounter
--- OUTSIDE RECORDS SUMMARY | ~2019-04-25 | XMS | Encounter Summary ---
Demographics + + + | Address | [address] | | | [place] [address] | + + + | Home Phone | | + + + | Preferred Language | Unknown | + + + | Marital Status | Single | + + + | Nondenominational Affiliation | BAP | + + + | Race | White | + + + | Ethnic Group | Not or | + + + Author + + + | Author | [facility] | + + + | Organization | [facility] | + + + | Address | Unknown | + + + | Phone | Unavailable | + + + Support + + + + + | Name | Relationship | Address | Phone | + + + + + | Margarito Owusu | ECON | [address] | | | | | [place] | | | | | [address] | | + + + + + Care Team Providers + +------+ + | Care Scrap Picker Name | Role | Phone | + +------+ + | Jaison Chávez MD | PCP | | + +------+ + Encounter Details +--------+ + + + + | Date | Type | Department | Care Team | Description | +--------+ + + + + | 07/10/ | Results | NON-[facility] | [facility] | | | 2009 | Only | Department | MD Juany [address] | | | | | | [place] | | | | | | [address] | | | | | | [phone] | | | | | | | [...] + + | 04/29/ | Diagnostic | Caregivers Non Medical | Marce Meyer | | | 2019 | Visit | | Eve Briseno [address] | | | | | | [address] | | | | | | [place], [place] | | | | | | [address] | | +--------+ + + + + documented as of this encounter Procedures + +--------+ + + + | Procedure Name | Priori | Date/Time | Associated Diagnosis | Comments | | | ty | | | | + +--------+ + + + | ABDOMEN AND PELVIS | Routin | 07/10/2010 | | [place] [id number] | e | 1:47 PM | | procedure are in the | | | | PST | | results section. | + +--------+ + + + | CHEST 2 VIEW [id number] | Routin | 07/10/2010 | | Results for this | | | e | 10:53 AM | | procedure are in the | | | | PST | | results section. | + +--------+ + + + | SRUTHI MUNIZ ONLY | Routin | 07/10/2010 | | Results for this | | | e | 10:30 AM | | procedure are in the | | | | PST | | results section. | + +--------+ + + + | TROPONIN T | Routin | 07/10/2010 | | Results for this | | | e | 10:25 AM | | procedure are in the | | | | PST | | results section. | + +--------+ + + + | TROPONIN I, PLASMA | Routin | 07/10/2010 | | Results for this | | | e | 10:25 AM | | procedure are in the | | | | PST | | results section. | + +--------+ + + + | CBC W/DIFF, REFLEX | Routin | 07/10/2010 | | Results for this | | | e | 10:20 AM | | procedure are in the | | | | PST | | results section. | + +--------+ + + + | COMPLETE METABOLIC | Routin | 07/10/2010 | | Results for this | | SET | e | 10:20 AM | | procedure are in the | | (NA,K,CL,CO2,BUN,CRE | | PST | | results section. | | AT,GLUC,CA,AST,ALT,B | | | | | | TERRY TOTAL,ALK | | | | | | PHOS,ALB,PROT TOTAL) | | | | | + +--------+ + + + documented in this encounter [place] [id number] (07/10/2010 1:47 PM PST) + + | Specimen | + + | | + + + + + | Narrative | Performed At | + + + | EXAM: ABDOMINAL CT HISTORY: Vomiting COMPARISON: 04/16/2009 | [facility] | | FINDINGS: CT scan of the abdomen and pelvis was performed without | DEPARTMENT OF | | intravenous or oral contrast. Reconstruction images were obtained. | RADIOLOGY | | An area of atelectasis is noted in the left lung base. Calcified | | | granuloma is seen in the liver. The spleen and pancreas are normal | | | in appearance. No adrenal mass is seen. The aorta is normal in | | | caliber and is mildly calcified. No renal calculus or | | | hydronephrosis is demonstrated. There is a large amount of fecal | | | material present throughout the colon. No evidence of small bowel | | | obstruction is seen. The appendix is normal in size. The | | | bladder is normal in contour. No free fluid is demonstrated. | | | There is a broad neck ventral hernia containing bowel and mesentery | | | present. Evidence of ventral hernia mesh is seen. IMPRESSION: | | | 1. A large broad neck ventral hernia is noted. 2. No | | | hydronephrosis or renal calculus is seen. | | + + + + + | Procedure Note | + + | Interface, Radiology Results - 03/12/2015 1:57 PM PDT EXAM: ABDOMINAL CT | | HISTORY: Vomiting | | COMPARISON: 04/16/2009 | | FINDINGS: CT scan of the abdomen and pelvis was performed without | | intravenous or oral contrast. Reconstruction images were obtained. | | An area of atelectasis is noted in the left lung base. Calcified | | granuloma is seen in the liver. The spleen and pancreas are normal | | in appearance. No adrenal mass is seen. The aorta is normal in | | caliber and is mildly calcified. No renal calculus or hydronephrosis | | is demonstrated. There is a large amount of fecal material present | | throughout the colon. No evidence of small bowel obstruction is | | seen. The appendix is normal in size. The bladder is normal in | | contour. No free fluid is demonstrated. | | There is a broad neck ventral hernia containing bowel and mesentery | | present. Evidence of ventral hernia mesh is seen. | | IMPRESSION: | | 1. A large broad neck ventral hernia is noted. | | 2. No hydronephrosis or renal calculus is seen. | + + + +---------+ + + | Performing | Address | City/State/Zipcode | Phone Number | | Organization | | | | + +---------+ + + | [facility] DEPARTMENT OF | | | | | RADIOLOGY | | | | + +---------+ + + CHEST 2 VIEW [id number] (07/10/2010 10:53 AM PST) + + | Specimen | + + | | + + + + + | Narrative | Performed At | + + + | EXAM: CHEST X-RAY HISTORY: Shortness of breath COMPARISON: | [facility] | | 04/16/2010 FINDINGS: Two views of the chest were obtained. The | DEPARTMENT OF | | trachea is in normal position. The heart is normal in | RADIOLOGY | | size. There is poor inspiration. No pulmonary infiltrate is | | | seen. IMPRESSION: Poor inspiration. No infiltrate is seen. | | + + + + + | Procedure Note | + + | Interface, Radiology Results - 03/12/2015 1:57 PM PDT EXAM: CHEST X-RAY | | HISTORY: Shortness of breath | | COMPARISON: 04/16/2010 | | FINDINGS: Two views of the chest were obtained. The trachea is in | | normal position. The heart is normal in size. There is poor | | inspiration. No pulmonary infiltrate is seen. | | IMPRESSION: Poor inspiration. No infiltrate is seen. | + + + +---------+ + + | Performing | Address | City/State/Zipcode | Phone Number | | Organization | | | | + +---------+ + + | [facility] DEPARTMENT OF | | | | | RADIOLOGY | | | | + +---------+ + + SRUTHI MUNIZ ONLY (07/10/2010 10:30 AM PST) + + + + + + | Component | Value | Ref Range | Performed | Pathologist | | | | | At | Signature | + + + + + + | COLOR(UR) | YELLOW | YELLOW | [facility] | | | | | | A MEDICAL | | | | | | CENTER | | + + + + + + | APPEARANCE | CLEAR | CLEAR | [facility] | | | | | | A MEDICAL | | | | | | CENTER | | + + + + + + | SPECIFIC | < 1.005 | 1.005 - 1.030 | [facility] | | | GRAVITY | | | A MEDICAL | | | | | | CENTER | | + + + + + + | PH(UR) | 6.0 | 5.0 - 8.0 | [facility] | | | | | | A MEDICAL | | | | | | CENTER | | + + + + + + | PROTEIN, UA | NEG | NEGATIVE | [facility] | | | | | | A MEDICAL | | | | | | CENTER | | + + + + + + | GLUCOSE, UA | NEG | N | [facility] | | | | | | A MEDICAL | | | | | | CENTER | | + + + + + + | KETONES, UA | NEG | NEGATIVE | [facility] | | | | | | A MEDICAL | | | | | | CENTER | | + + + + + + | BILIRUBIN | NEG | NEGATIVE | [facility] | | | | | | A MEDICAL | | | | | | CENTER | | + + + + + + | BLOOD | NEG | NEGATIVE | [facility] | | | | | | A MEDICAL | | | | | | CENTER | | + + + + + + | NITRITES | NEG | NEGATIVE | [facility] | | | | | | A MEDICAL | | | | | | CENTER | | + + + + + + | LEUKOCYTE | NEG | NEGATIVE | [facility] | | | ESTERASE | | | A MEDICAL | | | | | | CENTER | | + + + + + + | UROBILINOGE | NORMAL | NORMAL AUBRIE | [facility] | | | N | | | A MEDICAL | | | | | | CENTER | | + + + + + + | SOURCE | CLEAN CATCH | | [facility] | | | | [...] + + + | [facility] | [address] | [place] [address] | | | [facility] | Streets | | | + + + + + TROPONIN T (07/10/2010 10:25 AM PST) + + + + + + | Component | Value | Ref Range | Performed | Pathologist | | | | | At | Signature | + + + + + + | TROPONIN I | 0.00Comment: Values less | NG/ML | [facility] | | | | than 0.04 are | | A MEDICAL | | | | normalValues greater | | CENTER | | | | than 0.04 are | | | | | | abnormal Values | | | | | | 0.04-0.5 are consistent | | | | | | with myocardial | | | | | | inju which may | | | | | | be reversible or | | | | | | irreversible (de la fuente | | | | | | zon Values greater | | | | | | than 0.5 suggestive of | | | | | | AMI. | | | | + + + [...] + + + + | [facility] | [address] | [place] [address] | | | [facility] | Streets | | | + + + + + TROPONIN I, PLASMA (07/10/2010 10:25 AM PST) + +-------+ + + + | Component | Value | Ref Range | Performed | Pathologist | | | | | At | Signature | + +-------+ + + + | TROPONIN I | 0.00 | NG/ML | [facility] | | | | | | A MEDICAL | | | | | | CENTER | | + +-------+ + + + [...] + + + + | [facility] | [address] | [place] [address] | | | MEDICAL CENTER | Streets | | | + + + + + CBC W/DIFF, REFLEX (07/10/2010 10:20 AM PST) + + + + + + | Component | Value | Ref Range | Performed | Pathologist | | | | | At | Signature | + + + + + + | WHITE BLOOD | 9.2 | 4.3 - 11.0 X10 | [facility] | | | CELL COUNT | | 3/ul | A MEDICAL | | | | | | CENTER | | + + + + + + | HEMOGLOBIN | 13.3 | 12.3 - 17.0 | [facility] | | | | | g/dL | A MEDICAL | | | | | | CENTER | | + + + + + + | RED BLOOD | 4.36 (L) | 4.7 - 6.1 X10 | [facility] | | | CELL COUNT | | 6/uL | A MEDICAL | | | | | | CENTER | | + + + + + + | HEMATOCRIT | 39.2 (L) | 40.0 - 54.0 % | [facility] | | | | | | A MEDICAL | | | | | | CENTER | | + + + + + + | MCV | 89.9 | 82 - 100 fl | [facility] | | | | | | A MEDICAL | | | | | | CENTER | | + + + + + + | MCH | 30.5 | 28.0 - 32.0 pg | [facility] | | | | | | A MEDICAL | | | | | | CENTER | | + + + + + + | MCHC | 34.0 | 32 - 36 g/dL | [facility] | | | | | | A MEDICAL | | | | | | CENTER | | + + + + + + | RDW | 13.6 | 12 - 15 fL | [facility] | | | | | | A MEDICAL | | | | | | CENTER | | + + + + + + | PLATELET | 186 | 150 - 450 X10 3 | [facility] | | | COUNT | | | A MEDICAL | | | | | | CENTER | | + + + + + + | MPV | 6.4 (L) | 9.0 - 12.0 fL | [facility] | | | | | | A MEDICAL | | | | | | CENTER | | + + + + + + | NEUTROPHIL | 76.4 | 40 - 80 % | [facility] | | | % | | | A MEDICAL | | | | | | CENTER | | + + + + + + | LYMPHOCYTE | 15.1 (L) | 20 - 50 % | [facility] | | | % | | | A MEDICAL | | | | | | CENTER | | + + + + + + | EOS % | 1.5 | 0 - 5 % | [facility] | | | | | | A MEDICAL | | | | | | CENTER | | + + + + + + | BASO % | 1.6 (H) | 0 - 1 % | [facility] | | | | | | A MEDICAL | | | | | | CENTER | | + + + + + + | MONOCYTE % | 5.4 | 2 - 10 % | [facility] | | | | | | A MEDICAL | | | | | | CENTER | | + + + + + + | BANDS % | HOUSEMAN | 0 - 7 % | [facility] [...] + + + + | [facility] | [address] | [place] [address] | | | MEDICAL CENTER | Streets | | | + + + + + COMPLETE METABOLIC SET (NA,K,CL,CO2,BUN,CREAT,GLUC,CA,AST,ALT,BILI TOTAL,ALK PHOS,ALB,PROT TOTAL) (07/10/2010 10:20 AM PST) + + + + + + | Component | Value | Ref Range | Performed | Pathologist | | | | | At | Signature | + + + + + + | SODIUM, | 133 (L) | 137 - 146 MEQ/L | [facility] | | | PLASMA | | | A MEDICAL | | | (LAB) | | | CENTER | | + + + + + + | POTASSIUM, | 3.9 | 3.5 - 5.2 MEQ/L | [facility] | | | PLASMA | | | A MEDICAL | | | (LAB) | | | CENTER | | + + + + + + | CO2 | 25 | 22 - 28 MEQ/L | [facility] | | | | | | A MEDICAL | | | | | | CENTER | | + + + + + + | CHLORIDE, | 99 | 98 - 106 MEQ/L | [facility] | | | PLASMA | | | A MEDICAL | | | (LAB) | | | CENTER | | + + + + + + | GLUCOSE, | 92 | 70 - 105 MG/DL | [facility] | | | PLASMA | | | A MEDICAL | | | (LAB) | | | CENTER | | + + + + + + | BUN, PLASMA | 18 | 8 - 30 MG/DL | [facility] | | | (LAB) | | | A MEDICAL | | | | | | CENTER | | + + + + + + | CREATININE | 1.03 | 0.9 - 1.3 MG/DL | [facility] | | | PLASMA | | | A MEDICAL | | | (LAB) | | | CENTER | | + + + + + + | BUN/CREATIN | 17 | 6 - 20 RATIO | [facility] | | | INE RATIO | | | A MEDICAL | | | | | | CENTER | | + + + + + + | CALCIUM, | 9.1 | 8.5 - 10.8 | [facility] | | | PLASMA | | MG/DL | A MEDICAL | | | (LAB) | | | CENTER | | + + + + + + | CK | 1097 (H)Comment: @A MB | 32 - 184 U/L | [facility] | | | | WILL REFLEX. | | A MEDICAL | | | | | | CENTER | | + + + + + + | CKMB | 19.5 (H) | 5 - 17 U/L | [facility] | | | | | | A MEDICAL | | | | | | CENTER | | + + + + + + | CKMB-INDEX | 1.7 | 0.0 - 4.0 % | [facility] | | | | | | A MEDICAL | | | | | | CENTER | | + + + + + + | AMYLASE,CRISS | 51 | 28 - 100 U/L | [facility] | | | SMA | | | A MEDICAL | | | | | | CENTER | | + + + + + + | AST(SGOT) | 37 | 10 - 41 U/L | [facility] | | | | | | A MEDICAL | | | | | | CENTER | | + + + + + + | ALT (SGPT) | 32 | 7 - 51 U/L | [facility] | | | | | | A MEDICAL | | | | | | CENTER | | + + + + + + | ALK PHOS | 89 | 40 - 180 U/L | [facility] | | | | | | A MEDICAL | | | | | | CENTER | | + + + + + + | TOTAL | 6.8 | 6.7 - 8.5 G/DL | [facility] | | | PROTEIN, | | | A MEDICAL | | | PLASMA | | | CENTER | | | (LAB) | | | | | + + + + + + | ALBUMIN, | 4.1 | 3.5 - 5.0 G/DL | [facility] | | | PLASMA | | | A MEDICAL | | | (LAB) | | | CENTER | | + + + + + + | BILIRUBIN | 0.3 | 0.2 - 1.6 MG/DL | [facility] | | | TOTAL | | | A MEDICAL | | | | | | CENTER | | + + + + + + | LIPASE | 25 | 5 - 57 U/L | [facility] | | | (LAB) | | | A MEDICAL | | | | | | CENTER | | + + + + + + | ESTIMATED | >60.0 | >60 | [facility] | | | GFR | | | A MEDICAL | | [...] | + + + + + | [facility] | [address] | [place] [address] | | | MEDICAL CENTER | Streets | | | + + + + + documented in this encounter Visit Diagnoses Not on filedocumented in this encounter"
--- OUTSIDE RECORDS SUMMARY | ~2019-04-25 | XMS | Encounter Summary ---
Demographics + + + | Address | [address] | | | [place] [address] | + + + | Home Phone [...] + + + | Author | [facility] | + + + | Organization | [facility] | + + + | Address | Unknown | + + + | Phone | Unavailable | + + + Support + + + + + | Name | Relationship | Address | Phone | + + + + + | Margarito Owusu | ECON | [address] | | | | | [place] | | | | | [address] | | + + + + + Care Team Providers + +------+ + | Care Isobutylene Operator Chief Name | Role | Phone | + +------+ + | Jaison Chávez MD | PCP | | + +------+ + Reason for Visit + + + | Reason | Comments | + + + | Appointment | | + + + Encounter Details +--------+ + + + + | Date | Type | Department | Care Team | Description | +--------+ + + + + | 02/15/ | Telephone | Otolaryngology | Willie Plunkett, | Appointment | | 2013 | | Otology Services at | MD | | | | | [facility] [address] [facility] [address] | | | | | | [address] | | | | | | Mailcode: [address] | | | | | | Priya Perez | | | | | | [place], [place] | | | | | | [address] | | | | | | [phone] | | | +--------+ + + + [...] + + | 04/29/ | Diagnostic | Harp Regulator | Marce Meyer | | | 2019 | Visit | | Eve Briseno [address] [facility] | | | | | | [address] | | | | | | [place], [place] | | | | | | [address] | | +--------+ + + + + documented as of this encounter Visit Diagnoses Not on filedocumented in this encounter"
--- OUTSIDE RECORDS SUMMARY | ~2019-04-25 | XMS | Encounter Summary ---
Demographics + + + | Address | [address] | | | [place] [address] | + + + | Home Phone | | + + + | Preferred Language | Unknown | + + + | Marital Status | Single | + + + | Faith Affiliation | BAP | + + + [...] [place] | | | | | [address] | | + + + + + Care Team Providers + +------+ + | Care Primary School Teacher Name | Role | Phone | + [...] | | externa | | | | [place], [place] | | | | | | [address] | | | | | | [phone] | | | +--------+---------+ + + + [...] once daily. magnesium hydroxide (KOCH MILK OF MAGNSchrodinger) 400 mg/5 mL Oral Suspension Take 30 [...] Left cochlear implant- no concerns. PLAN: Refilled [facility] Finish antibiotic rx RTC 2 weeks Willie Plunkett MD Janitorial Supervisor Otology, Neurotology & Skull Base Surgery documented in this en counter Plan of Treatment +--------+ + + + + | Date | Type | Specialty | Care Team | Description | +--------+ + + + + | 04/29/ | Diagnostic | Drop Wire Builder | Marce Meyer | | | 2019 | Visit | | K, AuD [address] [facility] | | | | | | [facility] | | | | | | [place], [place] | | | | | | [address] | | +--------+ + + + + documented as of this encounter Visit Diagnoses + + | Diagnosis | + + | Recurrent / residual cholesteatoma post mastoidectomy, right - Primary | + + | Other acute otitis externa | + + documented in this encounter"
--- OUTSIDE RECORDS SUMMARY | ~2019-04-25 | XMS | Encounter Summary ---
Demographics + + + | Address | [address] | | | [place] [address] | + + + | Home Phone | | + + + | Preferred Language | Unknown | + + + | Marital Status | Single | + + + | Congregational Affiliation | BAP | + + + | Race | White | + + + | Ethnic Group | Not or | + + + Author + + + | Author | [facility] | + + + | Organization | [facility] | + + + | Address | Unknown | + + + | Phone | Unavailable | + + + Support + + + + + | Name | Relationship | Address | Phone | + + + + + | Margarito Owusu | ECON | [address] | | | | | [place] | | | | | [address] | | + + + + + Care Team Providers + +------+ + | Care Billet Checker Name | Role | Phone | + +------+ + | Maurice Zelaya MD | PCP | | + +------+ + Encounter Details +--------+ + + + + | Date | Type | Department | Care Team | Description | +--------+ + + + + | 07/13/ | Telephone | Otolaryngology | Otology, [address] | | | 2017 | | General Services at | [facility] | | | | | [facility] [address] [facility] | [place], [place] | | | | | [facility] | [address] | | | | | Mailcode: [address] | | | | | | [facility] | | | | | | [place], [place] | | | | | | [address] | | | | | | [phone] | | | +--------+ + + + [...] + + | 04/29/ | Diagnostic | Backfiller | Marce Meyer | | | 2019 | Visit | | Finn, Eve [address] | | | | | | [address] | | | | | | [place], [place] | | | | | | [address] | | +--------+ + + + + documented as of this encounter Visit Diagnoses Not on filedocumented in this encounter"
--- OUTSIDE RECORDS SUMMARY | ~2019-04-25 | XMS | Encounter Summary ---
Demographics + + + | Address | [address] | | | [place] [address] | + + + | Home Phone | | + + + | Preferred Language | Unknown | + + + | Marital Status | Single | + + + | Yazidi Affiliation | BAP | + + + | Race | White | + + + | Ethnic Group | Not or | + + + Author + + + | Author | [facility] | + + + | Organization | [facility] | + + + | Address | Unknown | + + + | Phone | Unavailable | + + + Support + + + + + | Name | Relationship | Address | Phone | + + + + + | Margarito Owusu | ECON | [address] | | | | | [place] | | | | | [address] | | + + + + + Care Team Providers + +------+ + | Care Chemical Processing Supervisor Name | Role | Phone | + +------+ + | Ender Wagoner MD | PCP | | + +------+ + Reason for Visit + + + | Reason | Comments | + + + | HL - Hearing loss | | + + + Audiology Services (Routine) +--------+--------+ + + + + | Status | Reason | Specialty | Diagnoses / | Referred By | Referred To | | | | | Procedures | Contact | Contact | +--------+--------+ + + + + | Closed | | Mid Level Game Designer | | Ciaran, | Ent | | | | | | Ender Perdomo, | Cochlear Ppv | | | | | | MD | [address] | | | | | | [place] | [address] | | | | | | [facility] | [address] Mailcode: | | | | | | [address] | [address] | | | | | | [address] | Physician's | | | | | | [place], | [place] | | | | | | [place] [address] | [place], [place] | | | | | | Phone: | [address] | | | | | | [phone] | Phone: | | | | | | Fax: | [phone] | | | | | | [phone] | Fax: | | | | | | | [phone] | +--------+--------+ + + + + Encounter Details +--------+---------+ + + + | Date | Type | Department | Care Team | Description | +--------+---------+ + + + | 11/24/ | Office | Otolaryngology | Pascual Pace, | Sensorineural | | 2012 | Visit | Audiology Services | Melodie [facility] | hearing loss, | | | | at [facility] [address] | unspecified (Primary | | | | [address] | Rd [place], [place] | Dx) | | | | Mailcode: [id number] | [id number] | | | | | [facility] | | | | | | [place], [place] | | | | | | [address] | | | | | | [phone] | | | +--------+---------+ + + + [...] documented as of this encounter Progress Notes Melodie Mayfield CCC-A - 11/25/2011 4:00 PM STEPHENEdgar Marquez is a 46 y.o. Male w ho was seen today as an add on CI patient in conjunction with visit to Otology for a drainin g left ear. Mr. Marquez arrived today wearing his Sprint device and reported that he was ex periencing discomfort with sound and eye twitching with his current Nucleus 5 device. Mr. Deng clayton also mentioned that his rechargeable batteries were only lasting him 10 hours. Mr. Marquez's processor was connected to the computer for programming. Impedance levels we re WNL. Threshold levels were remeasured using counting psychophysical stimuli and comfort levels were measured and set according to patient's perception of stimuli as most comfortabl e for individual electrodes across the array. This resulted in an overall reduction of T an d C levels. Live voice setting was activated and C levels were adjusted until Mr. Marquez r eported speech to be at a most comfortable volume. Mr. Marquez reported this to be an impro vement and was no longer experiencing facial stimulation. The following settings were enter ed into Mr. Marquez's device: P1 = MAP 18 (everyday) P2 = MAP 18 (noise) P3 = MAP 18 (focus) P4 = MAP 18 (music) These reduced power levels should help with extending battery life and it was estimated jerzy t Mr. Marquez would receive approximately 14 hours of battery life from standard rechargeabl e batteries. It was recommended that Mr. Marquez continue to use these settings and return for CI follow up on an as needed basis. Melodie Herbert M.A., YULIA-A Clinical & Rehabilitative Mid Level Game Designer [facility] Cochlear Implant Program Department of Otolaryngology/Head & Neck Surgery documented in t his encounter Plan of Treatment +--------+ + + + + | Date | Type | Specialty | Care Team | Description | +--------+ + + + + | 04/29/ | Diagnostic | Mid Level Game Designer | Marce Meyer | | | 2018 | Visit | | Eve Briseno [address] | | | | | | [address] | | | | | | [place] | | | | | | [address] | | +--------+ + + + + documented as of this encounter Visit Diagnoses + + | Diagnosis | + + | Sensorineural hearing loss, unspecified - Primary | + + documented in this encounter"
--- OUTSIDE RECORDS SUMMARY | ~2019-04-25 | XMS | Encounter Summary ---
Demographics + + + | Address | [address] | | | [place] [address] | + + + | Home Phone [...] Author + + + | Author | [facility] | + + + | Organization | [facility] | + + + | Address | Unknown | + + + | Phone | Unavailable | + + + Support + + + + + | Name | Relationship | Address | Phone | + + + + + | Margarito Owusu | ECON | [address] | | | | | [place] | | | | | [address] | | + + + + + Care Team Providers + +------+ + | Care Wildlife Conservation Professor Name | Role | Phone | + +------+ + | Deidre Card | PCP | | + +------+ + Encounter Details +--------+ + + + + | Date | Type | Department | Care Team | Description | +--------+ + + + + | 01/19/ | Telephone | Otolaryngology | Haroon Poe, | | | 2006 | | Cochlear Services | PhD | | | | | [address] | | | | | | [place] Mailcode: | | | | | | [address] Physician's | | | | | | [place], | | | | | | [place] [address] | | | | | | [phone] | | | +--------+ + + + [...] + + | 04/29/ | Diagnostic | Charge Entry | Marce Meyer | | | 2019 | Visit | | Eve Briseno [address] | | | | | | [address] | | | | | | [place], [place] | | | | | | [address] | | +--------+ + + + + documented as of this encounter Visit Diagnoses Not on filedocumented in this encounter"
--- OUTSIDE RECORDS SUMMARY | ~2019-04-25 | XMS | Encounter Summary ---
Demographics + + + | Address | [address] | | | [place] [address] | + + + | Home Phone | | + + + | Preferred Language | Unknown | + + + | Marital Status | Single | + + + | Taoist Affiliation | BAP | + + + | Race | White | + + + | Ethnic Group | Not or | + + + Author + + + | Author | [facility] | + + + | Organization | [facility] | + + + | Address | Unknown | + + + | Phone | Unavailable | + + + Support + + + + + | Name | Relationship | Address | Phone | + + + + + | Margarito Owusu | ECON | [address] | | | | | [place] | | | | | [address] | | + + + + + Care Team Providers + +------+ + | Care Manager Statistics Name | Role | Phone | + +------+ + | Jaison Chávez MD | PCP | | + +------+ + Encounter Details +--------+ + + + + | Date | Type | Department | Care Team | Description | +--------+ + + + + | 04/16/ | Results | NON-[facility] | Tonja Lam, | | | 2009 | Only | Department | [address] | | | | | [place] | | | | | | [address] | | | | | | [phone] | | | | | | | [...] + + | 04/29/ | Diagnostic | Plumbing And Heating Mechanic | Marce Meyer | | | 2019 | Visit | | Eve Briseno [address] | | | | | | [address] | | | | | | [place], [place] | | | | | | [address] | | +--------+ + + + + documented as of this encounter Procedures + +--------+ + + + | Procedure Name | Priori | Date/Time | Associated Diagnosis | Comments | | | ty | | | | + +--------+ + + + | CAP GLUPOC | Routin | 04/17/2010 | | Results for this | | | e | 7:53 AM | | procedure are in the | | | | PDT | | results section. | + +--------+ + + + | TROPONIN T | Routin | 04/17/2010 | | Results for this | | | e | 5:40 AM | | procedure are in the | | | | PDT | | results section. | + +--------+ + + + | CBC W/DIFF, REFLEX | Routin | 04/17/2010 | | Results for this | | | e | 5:40 AM | | procedure are in the | | | | PDT | | results section. | + +--------+ + + + | TROPONIN I, PLASMA | Routin | 04/17/2010 | | Results for this | | | e | 5:40 AM | | procedure are in the | | | | PDT | | results section. | + +--------+ + + + | BASIC METABOLIC SET | Routin | 04/17/2010 | | Results for this | | (NA, K, CL, TCO2, | e | 5:40 AM | | procedure are in the | | BUN, CR, GLU, CA) | | PDT | | results section. | + +--------+ + + + | CAP GLU,POC | Routin | 04/17/2010 | | Results for this | | | e | 12:12 AM | | procedure are in the | | | | PDT | | results section. | + +--------+ + + + | CTA CHEST COMBINED | Routin | 04/16/2010 | | Results for this | | [id number] | e | 7:27 PM | | procedure are in the | | | | PDT | | results section. | + +--------+ + + + | CHEST 2 VIEW [id number] | Routin | 04/16/2010 | | Results for this | | | e | 6:38 PM | | procedure are in the | | | | PDT | | results section. | + +--------+ + + + | D-DIMER, (PE OR DIC) | Routin | 04/16/2010 | | Results for this | | | e | 6:06 PM | | procedure are in the | | | | PDT | | results section. | + +--------+ + + + | TROPONIN T | Routin | 04/16/2010 | | Results for this | | | e | 6:00 PM | | procedure are in the | | | | PDT | | results section. | + +--------+ + + + | CBC W/DIFF, REFLEX | Routin | 04/16/2010 | | Results for this | | | e | 6:00 PM | | procedure are in the | | | | PDT | | results section. | + +--------+ + + + | TROPONIN I, PLASMA | Routin | 04/16/2010 | | Results for this | | | e | 6:00 PM | | procedure are in the | | | | PDT | | results section. | + +--------+ + + + | BASIC METABOLIC SET | Routin | 04/16/2010 | | Results for this | | (NA, K, CL, TCO2, | e | 6:00 PM | | procedure are in the | | BUN, CR, GLU, CA) | | PDT | | results section. | + +--------+ + + + | TROPONIN T | Routin | 04/16/2010 | | Results for this | | | e | 12:20 AM | | procedure are in the | | | | PDT | | results section. | + +--------+ + + + | TROPONIN I, PLASMA | Routin | 04/16/2010 | | Results for this | | | e | 12:20 AM | | procedure are in the | | | | PDT | | results section. | + +--------+ + + + documented in this encounter Results CAP GLU,POC (04/17/2010 7:53 AM PDT) + + + + + + | Component | Value | Ref Range | Performed | Pathologist | | | | | At | Signature | + + + + + + | BLOOD | 117 (H)Comment: Meter | 70 - 110 MG/DL | [facility] | | | GLUCOSE, | ID: [id number]: | | OF CARE | | | POC | [id number] | | TESTING | | | | Viviane | | | | | | | [...] | | | + +---------+ + + TROPONIN T (04/17/2010 5:40 AM PDT) + + + + + + | Component | Value | Ref Range | Performed | Pathologist | | | | | At | Signature | + + + + + + | TROPONIN I | 0.01Comment: Values less | NG/ML | [facility] | [...] + + + | [facility] | And | [place] [address] | | | [facility]ICAL [facility]ENTER | Streets | | | + + + + + CBC W/DIFF, REFLEX (04/17/2010 5:40 AM PDT) + + + + + + | Component | Value | Ref Range | Performed | Pathologist | | | | | At | Signature | + + + + + + | WHITE BLOOD | 9.0 | 4.3 - 11.0 X10 | [facility] | | | CELL COUNT | | 3/ul | A MEDICAL | | | | | | CENTER | | + + + + + + | HEMOGLOBIN | 13.4 | 12.3 - 17.0 | [facility] | | | | | g/dL | A MEDICAL | | | | | | CENTER | | + + + + + + | RED BLOOD | 4.20 (L) | 4.7 - 6.1 X10 | [facility] | | | CELL COUNT | | 6/uL | A MEDICAL | | | | | | CENTER | | + + + + + + | HEMATOCRIT | 38.4 (L) | 40.0 - 54.0 % | [facility] | | | | | | A MEDICAL | | | | | | CENTER | | + + + + + + | MCV | 91.5 | 82 - 100 fl | [facility] | | | | | | A MEDICAL | | | | | | CENTER | | + + + + + + | MCH | 31.9 | 28.0 - 32.0 pg | [facility] | | | | | | A MEDICAL | | | | | | CENTER | | + + + + + + | MCHC | 34.8 | 32 - 36 g/dL | [facility] | | | | | | A MEDICAL | | | | | | CENTER | | + + + + + + | RDW | 13.5 | 12 - 15 fL | [facility] | | | | | | A MEDICAL | | | | | | CENTER | | + + + + + + | PLATELET | 136 (L) | 150 - 450 X10 3 | [facility] | | | COUNT | | | A MEDICAL | | | | | | CENTER | | + + + + + + | MPV | 7.4 (L) | 9.0 - 12.0 fL | [facility] | | | | | | A MEDICAL | | | | | | CENTER | | + + + + + + | NEUTROPHIL | 76.9 | 40 - 80 % | [facility] | | | % | | | A MEDICAL | | | | | | CENTER | | + + + + + + | LYMPHOCYTE | 14.5 (L) | 20 - 50 % | [facility] | | | % | | | A MEDICAL | | | | | | CENTER | | + + + + + + | EOS % | 2.2 | 0 - 5 % | [facility] | | | | | | A MEDICAL | | | | | | CENTER | | + + + + + + | BASO % | 0.1 | 0 - 1 % | [facility] | | | | | | A MEDICAL | | | | | | CENTER | | + + + + + + | MONOCYTE % | 6.3 | 2 - 10 % | [facility] | | | | | | A MEDICAL | | | | | | CENTER | | + + + + + + | BANDS % | BUGGY MAN | 0 - 7 % | [facility] [...] + + + + | [facility] | [address] | [place] [address] | | | [facility] | Streets | | | + + + + + TROPONIN I, PLASMA (04/17/2010 5:40 AM PDT) + +-------+ + + + | Component | Value | Ref Range | Performed | Pathologist | | | | | At | Signature | + +-------+ + + + | TROPONIN I | 0.01 | NG/ML | [facility] | | | | | | A [...] | + + + + + | [facility] | [address] | [place] [address] | | | [facility] | Streets | | | + + + + + BASIC METABOLIC SET (NA, K, CL, TCO2, BUN, CR, GLU, CA) (04/17/2010 5:40 AM PDT) + +--------+ + + + | Component | Value | Ref Range | Performed | Pathologist | | | | | At | Signature | + +--------+ + + + | SODIUM, | 139 | 137 - 146 MEQ/L | [facility] | | | PLASMA | | | A MEDICAL | | | (LAB) | | | CENTER | | + +--------+ + + + | POTASSIUM, | 4.1 | 3.5 - 5.2 MEQ/L | [facility] | | | PLASMA | | | A MEDICAL | | | (LAB) | | | CENTER | | + +--------+ + + + | CO2 | 27 | 22 - 28 MEQ/L | [facility] | | | | | | A MEDICAL | | | | | | CENTER | | + +--------+ + + + | CHLORIDE, | 103 | 98 - 106 MEQ/L | [facility] | | | PLASMA | | | A MEDICAL | | | (LAB) | | | CENTER | | + +--------+ + + + | ANION GAP | 13.1 | 8 - 16 MEQ/L | [facility] | | | | | | A MEDICAL | | | | | | CENTER | | + +--------+ + + + | GLUCOSE, | 93 | 70 - 105 MG/DL | [facility] | | | PLASMA | | | A MEDICAL | | | (LAB) | | | CENTER | | + +--------+ + + + | BUN, PLASMA | 22 | 8 - 30 MG/DL | [facility] | | | (LAB) | | | A MEDICAL | | | | | | CENTER | | + +--------+ + + + | CREATININE | 1.04 | 0.9 - 1.3 MG/DL | [facility] | | | PLASMA | | | A MEDICAL | | | (LAB) | | | CENTER | | + +--------+ + + + | BUN/CREATIN | 21 (H) | 6 - 20 RATIO | [facility] | | | INE RATIO | | | A MEDICAL | | | | | | CENTER | | + +--------+ + + + | CALCIUM, | 9.3 | 8.5 - 10.8 | [facility] | | | PLASMA | | MG/DL | A MEDICAL | | | (LAB) | | | CENTER | | + +--------+ + + + | ESTIMATED | >60.0 | >60 | [facility] | | | GFR | | | A MEDICAL | | | | | | CENTER | | + +--------+ + + + | FASTING? | SUPPER | HR | [facility] | | | | | | A MEDICAL | | | | | | CENTER | | + +--------+ + + + [...] + + + | [facility] | [address] [place] | [place] [address] | | | MEDICAL CENTER | Streets | | | + + + + + CAP GLUPOC (04/17/2010 12:12 AM PDT) + + + + + + | Component | Value | Ref Range | Performed | Pathologist | | | | | At | Signature | + + + + + + | BLOOD | 95Comment: Meter ID: | 70 - 110 MG/DL | [facility] | | | GLUCOSE, | [id number]: | | OF CARE | | | POC | [id number] Louie Narvaez | | TESTING | | | | [...] | | | + +---------+ + + CTA CHEST COMBINED [id number] (04/16/2010 7:27 PM PDT) + + | Specimen | + + | | + + + + + | Narrative | Performed At | + + + | CHEST CT ANGIOGRAM INDICATION: Shortness of breath and chest | [facility] | | pain. FINDINGS: Dr. Muse provided a preliminary report on this | DEPARTMENT OF | | case. Contrast opacification of the pulmonary arteries is somewhat | RADIOLOGY | | reduced, likely relating to inaccurate bolus timing. The main and | | | segmental pulmonary arteries are patent. The subsegmental | | | pulmonary arteries are difficult to evaluate due to | | | underopacification. The aorta is well opacified and reveals no | | | aneurysm or dissection. No mediastinal mass or fluid is | | | present. The largest hilar lymph node is noted superiorly on the | | | right, measuring 1.1 cm. A few subpleural blebs are scattered in | | | the upper lobes. No focal infiltrate to suggest pneumonia is | | | present. There are no pleural effusions. IMPRESSION: Limited | | | pulmonary angiogram due to underopacification of the subsegmental | | | pulmonary arteries. No central or segmental pulmonary embolus is | | | present. [id number] | | + + + + + | Procedure Note | + + | Interface, Radiology Results - 03/12/2015 1:[address] ANGIOGRAM | | INDICATION: Shortness of breath and chest pain. | | FINDINGS: Dr. Muse provided a preliminary report on this case. | | Contrast opacification of the pulmonary arteries is somewhat reduced, | | likely relating to inaccurate bolus timing. The main and segmental | | pulmonary arteries are patent. The subsegmental pulmonary arteries | | are difficult to evaluate due to underopacification. The aorta is | | well opacified and reveals no aneurysm or dissection. No mediastinal | | mass or fluid is present. The largest hilar lymph node is noted | | superiorly on the right, measuring 1.1 cm. A few subpleural blebs are | | scattered in the upper lobes. No focal infiltrate to suggest | | pneumonia is present. There are no pleural effusions. | | IMPRESSION: Limited pulmonary angiogram due to underopacification of | | the subsegmental pulmonary arteries. No central or segmental | | pulmonary embolus is present. | | [id number] | + + + +---------+ + + | Performing | Address | City/State/Zipcode | Phone Number | | Organization | | | | + +---------+ + + | [facility]PART[facility] | | | | | RADIOLOGY | | | | + +---------+ + + CHEST 2 VIEW [id number] (04/16/2010 6:38 PM PDT) + + | Specimen | + + | | + + + + + | Narrative | Performed At | + + + | EXAM: TWO VIEW CHEST X-RAY CLINICAL HISTORY: Shortness of breath | [facility] | | COMPARISON: 08/29/2009 TECHNIQUE: PA and lateral views of the chest | DEPARTMENT OF | | were obtained. FINDINGS: The left subclavian Port-A-Cath has been | RADIOLOGY | | removed and the heart size is normal. There is slight haziness of | | | the right hemithorax compared to the left, which is likely technical | | | or secondary to asymmetric overlying soft tissues. There is no | | | focal infiltrate, pneumothorax, pleural effusion or evidence of | | | congestion of the pulmonary vessels. Degenerative changes of the | | | right AC joint are identified. IMPRESSION: No acute cardiopulmonary | | | process. | | + + + + + | Procedure Note | + + | Interface, Radiology Results - 03/12/2015 1:57 PM PDT EXAM: TWO VIEW CHEST X-RAY | | CLINICAL HISTORY: Shortness of breath | | COMPARISON: 08/29/2009 | | TECHNIQUE: PA and lateral views of the chest were obtained. | | FINDINGS: The left subclavian Port-A-Cath has been removed and the | | heart size is normal. There is slight haziness of the right | | hemithorax compared to the left, which is likely technical or | | secondary to asymmetric overlying soft tissues. There is no focal | | infiltrate, pneumothorax, pleural effusion or evidence of congestion | | of the pulmonary vessels. Degenerative changes of the right AC joint | | are identified. | | IMPRESSION: No acute cardiopulmonary process. | + + + +---------+ + + | Performing | Address | City/State/Zipcode | Phone Number | | Organization | | | | + +---------+ + + | [facility] DEPARTMENT OF | | | | | RADIOLOGY | | | | + +---------+ + + D-DIMER, (PE OR DIC) (04/16/2010 6:06 PM PDT) + + + + + + | Component | Value | Ref Range | Performed | Pathologist | | | | | At | Signature | + + + + + + | D-DIMER, | 379Comment: | <230 ng/mL | [facility] | | | QUANTITATIV | @[address] | | A MEDICAL | | | E | ia@RESULT CALLED TO AND | | CENTER | | | | READ BACK BY: | | | | | | DAWNQUANTITATIVE D-DIMER | | | | | | INTERPRETATION:< 229 : | | | | | | NEGATIVE> 230 : POSITIVE | | | | | | | [...] | + + + + + | [facility] | And | [place] [address] | | | [facility] | Streets | | | + + + + + TROPONIN T (04/16/2010 6:00 PM PDT) + + + + + + | Component | Value | Ref Range | Performed | Pathologist | | | | | At | Signature | + + + + + + | TROPONIN I | 0.01Comment: Values less | NG/ML | [facility] | [...] + + | [facility] | [address] | [place] [address] | | | MEDICAL CENTER | Streets | | | + + + + + CBC W/DIFF, REFLEX (04/16/2010 6:00 PM PDT) + + + + + + | Component | Value | Ref Range | Performed | Pathologist | | | | | At | Signature | + + + + + + | WHITE BLOOD | 12.9 (H) | 4.3 - 11.0 X10 | [facility] | | | CELL COUNT | | 3/ul | A MEDICAL | | | | | | CENTER | | + + + + + + | HEMOGLOBIN | 14.5 | 12.3 - 17.0 | [facility] | | | | | g/dL | A MEDICAL | | | | | | CENTER | | + + + + + + | RED BLOOD | 4.70 | 4.7 - 6.1 X10 | [facility] | | | CELL COUNT | | 6/uL | A MEDICAL | | | | | | CENTER | | + + + + + + | HEMATOCRIT | 43.0 | 40.0 - 54.0 % | [facility] | | | | | | A MEDICAL | | | | | | CENTER | | + + + + + + | MCV | 91.4 | 82 - 100 fl | [facility] | | | | | | A MEDICAL | | | | | | CENTER | | + + + + + + | MCH | 30.8 | 28.0 - 32.0 pg | [facility] | | | | | | A MEDICAL | | | | | | CENTER | | + + + + + + | MCHC | 33.7 | 32 - 36 g/dL | [facility] | | | | | | A MEDICAL | | | | | | CENTER | | + + + + + + | RDW | 13.4 | 12 - 15 fL | [facility] | | | | | | A MEDICAL | | | | | | CENTER | | + + + + + + | PLATELET | 179 | 150 - 450 X10 3 | [facility] | | | COUNT | | | A MEDICAL | | | | | | CENTER | | + + + + + + | MPV | 6.6 (L) | 9.0 - 12.0 fL | [facility] | | | | | | A MEDICAL | | | | | | CENTER | | + + + + + + | NEUTROPHIL | 76.8 | 40 - 80 % | [facility] | | | % | | | A MEDICAL | | | | | | CENTER | | + + + + + + | LYMPHOCYTE | 13.7 (L) | 20 - 50 % | [...] + + + | BASO % | 3.1 (H) | 0 - 1 % | [facility] | | | | | | A MEDICAL | | | | | | CENTER | | + + + + + + | MONOCYTE % | 4.9 | 2 - 10 % | [facility] | | | | | | A MEDICAL | | | | | | CENTER | | + + + + + + | BANDS % | BUGGY MAN | 0 - 7 % | [facility] [...] | [facility] | [address] | [place] [address] | | | MEDICAL CENTER | Streets | | | + + + + + TROPONIN I, PLASMA (04/16/2010 6:00 PM PDT) + +-------+ + + + | Component | Value | Ref Range | Performed | Pathologist | | | | | At | Signature | + +-------+ + + + | TROPONIN I | 0.01 | NG/ML | [facility] | | | [...] | [facility] | [address] | [place] [address] | | | MEDICAL CENTER | Streets | | | + + + + + BASIC METABOLIC SET (NA, K, CL, TCO2, BUN, CR, GLU, CA) (04/16/2010 6:00 PM PDT) + + + + + + | Component | Value | Ref Range | Performed | Pathologist | | | | | At | Signature | + + + + + + | SODIUM, | 139 | 137 - 146 MEQ/L | [facility] | | | PLASMA | | | A MEDICAL | | | (LAB) | | | CENTER | | + + + + + + | POTASSIUM, | 4.1 | 3.5 - 5.2 MEQ/L | [facility] | | | PLASMA | | | A MEDICAL | | | (LAB) | | | CENTER | | + + + + + + | CO2 | 26 | 22 - 28 MEQ/L | [facility] | | | | | | A MEDICAL | | | | | | CENTER | | + + + + + + | CHLORIDE, | 102 | 98 - 106 MEQ/L | [facility] | | | PLASMA | | | A MEDICAL | | | (LAB) | | | CENTER | | + + + + + + | ANION GAP | 15.1 | 8 - 16 MEQ/L | [facility] | | | | | | A MEDICAL | | | | | | CENTER | | + + + + + + | GLUCOSE, | 72 | 70 - 105 MG/DL | [facility] | | | PLASMA | | | A MEDICAL | | | (LAB) | | | CENTER | | + + + + + + | BUN, PLASMA | 20 | 8 - 30 MG/DL | [facility] | | | (LAB) | | | A MEDICAL | | | | | | CENTER | | + + + + + + | CREATININE | 1.14 | 0.9 - 1.3 MG/DL | [facility] | | | PLASMA | | | A MEDICAL | | | (LAB) | | | CENTER | | + + + + + + | BUN/CREATIN | 17 | 6 - 20 RATIO | [facility] | | | INE RATIO | | | A MEDICAL | | | | | | CENTER | | + + + + + + | CALCIUM, | 9.9 | 8.5 - 10.8 | [facility] | | | PLASMA | | MG/DL | A MEDICAL | | | (LAB) | | | CENTER | | + + + + + + | CK | 721 (H)Comment: @A MB | 32 - 184 U/L | [facility] | | | | WILL REFLEX. | | A MEDICAL | | | | | | CENTER | | + + + + + + | CKMB | 17.5 (H) | 5 - 17 U/L | [facility] | | | | | | A MEDICAL | | | | | | CENTER | | + + + + + + | CKMB-INDEX | 2.4 | 0.0 - 4.0 % | [facility] [...] | + + + + + | [facility] | And | [place] [address] | | | [facility] | Streets | | | + + + + + TROPONIN T (04/16/2010 12:20 AM PDT) + + + + + [...] | + + + + + | [facility] | [address] [place] | [place] [address] | | | [facility] | Streets | | | + + + + + TROPONIN I, PLASMA (04/16/2010 12:20 AM PDT) + +-------+ + + + [...] | + + + + + | [facility] | | | | | LABORATORY | | | | + + + + + | [facility] | And | [place] [address] | | | [facility] | [facility] | | | + + + + + documented in this encounter Visit Diagnoses Not on filedocumented in this encounter"
--- OUTSIDE RECORDS SUMMARY | ~2019-04-25 | XMS | Encounter Summary ---
Demographics + + + | Address | [address] | | | [place] [address] | + + + | Home Phone | | + + + | Preferred Language | Unknown | + + + | Marital Status | Single | + + + | Buddhism Affiliation | BAP | + + + | Race | White | + + + | Ethnic Group | Not or | + + + Author + + + | Author | [facility] | + + + | Organization | [facility] | + + + | Address | Unknown | + + + | Phone | Unavailable | + + + Support + + + + + | Name | Relationship | Address | Phone | + + + + + | Margarito Owusu | ECON | [address] | | | | | [place] | | | | | [address] | | + + + + + Care Team Providers + +------+ + | [employer] Specialist Name | Role | Phone | + +------+ + PCP | Unavailable | + +------+ + Encounter Details +--------+ + + + + | Date | Type | Department | Care Team | Description | +--------+ + + + + | 09/14/ | Results | Otolaryngology | Dustin, | | | 2001 | Only | Otology Services at | [facility] [address] | | | | | [facility] [address] | [address] | | | | | [address] | [place] [address] | | | | | Mailcode: [id number] | | | | | | Physician's Chris | | | | | | [place], [place] | | | | | | [address] | | | | | | [phone] | | | +--------+ + + + [...] + + | 04/29/ | Diagnostic | Expenditure Requisition Clerk | Marce Meyer | | | 2019 | Visit | | Eve Briseno [address] | | | | | | [address] | | | | | | [place], [place] | | | | | | [address] | | +--------+ + + + + documented as of this encounter Procedures + +--------+ + + + | Procedure Name | Priori | Date/Time | Associated Diagnosis | Comments | | | ty | | | | + +--------+ + + + | SURGICAL PATHOLOGY | Routin | 09/14/2001 | | Results for this | | | e | | | procedure are in the | | | | | | results section. | + +--------+ + + + documented in this encounter Results SURGICAL PATHOLOGY (09/14/2001) + + + + + + | Component | Value | Ref Range | Performed | Pathologist | | | | | At | Signature | + + + + + + | SURGICAL | SOURCE OF SPECIMEN:A | | [facility] | | | PATHOLOGY | Cholesteatoma right ear | | DEPARTMENT | | | | Final Pathologic | | OF | | | | Diagnosis:Cholesteatoma, | | PATHOLOGY | | | | right ear: - | | | | | | Cholesteatoma | | | | | | Comment: Sections | | | | | | show fragments of | | | | | | respiratory and squamous | | | | | | mucosa | | | | | | withsubepithelial | | | | | | fibrous and plasma | | | | | | cell-rich granulation | | | | | | tissue. Thesquamous | | | | | | surfaces show generous | | | | | | desquamation of keratin | | | | | | flakes. Case reviewed | | | | | | by:Lorenzo Rodriguez M.D. | | | | | | /Justine Zarate | | | | | | Adelaida Goss, Ph.D. | | | | | | /PathologistT:09/16/01 | | | | | | I have reviewed all | | | | | | diagnostic slides and | | | | | | have edited the gross | | | | | | and/ormicroscopic | | | | | | portion of this report | | | | | | as part of my pathologic | | | | | | assessment andfinal | | | | | | diagnosis. Clinical | | | | | | History:The patient is a | | | | | | 36 year old male with a | | | | | | cholesteatoma, right | | | | | | ear. Gross | | | | | | Description:Received in | | | | | | saline, labeled | | | | | | "cholesteatoma, right | | | | | | ear," are 3 | | | | | | irregularfragments of | | | | | | soft, benz-pink tissue, | | | | | | measuring 1 x 0.5 x 0.3 | | | | | | cm inaggregate. Cassette | | | | | | Index:A1, | | | | | | ASCS/CC/ctRendering | | | | | | Diagnostician: Brayan | | | | | | jim Goss | | | | | | Adelaida,Ph.D.PathologistEle | | | | | | ctronically Signed | | | | | | 09/17/2001Comment: | | | | | | SOURCE OF SPECIMEN: | | | | | | Cholesteatoma right ear | | | | + + + + + + + + | Specimen | + + | | + + + + + + + | Performing | Address | City/State/Zipcode | Phone Number | | Organization | | | | + + + + + | [facility] | [address] | [place] [address] | | | PATHOLOGY | VASQUEZ RAMIREZ | | | + + + + + | [facility] | [address] | [place] [address] | | | PATHOLOGY | VASQUEZ RAMIREZ | | | + + + + + documented in this encounter Visit Diagnoses Not on filedocumented in this encounter
--- OUTSIDE RECORDS SUMMARY | ~2019-04-25 | XMS | Encounter Summary ---
Demographics + + + | Address | [address] | | | [place] [address] | + + + | Home Phone [...] Author + + + | Author | [facility] | + + + | Organization | [facility] | + + + | Address | Unknown | + + + | Phone | Unavailable | + + + Support + + + + + | Name | Relationship | Address | Phone | + + + + + | Margarito Owusu | ECON | [address] | | | | | [place] | | | | | [address] | | + + + + + Care Team Providers + +------+ + | Care Weaver Narrow [employer]rics Name | Role | Phone | + +------+ + | Maurice Zelaya MD | PCP | | + +------+ + Encounter Details +--------+ + + + + | Date | Type | Department | Care Team | Description | +--------+ + + + + | 04/16/ | H&P-Transcr | EP[facility] [address] | Parisa Michael, | History & Physical | | 2009 | ibed | [address] | [facility] | | | | | [place] [facility] | | | | | [address] | [facility]ILY [facility]INE | | | | | | [address] | | | | | | [place] [address] | | | | | | [phone] | | | | | | | [...] + + | 04/29/ | Diagnostic | Chemistry Teacher | Marce Meyer | | | 2019 | Visit | | Eve Briseno [address] [facility] [address] [facility] | | | | | | [address] | | | | | | [place] | | | | | | [address] | | +--------+ + + + + documented as of this encounter Visit Diagnoses Not on filedocumented in this encounter"
--- OUTSIDE RECORDS SUMMARY | ~2019-04-25 | XMS | Encounter Summary ---
Demographics + + + | Address | [address] | | | [place] [address] | + + + | Home Phone | | + + + | Preferred Language | Unknown | + + + | Marital Status | Single | + + + | Baptism Affiliation | BAP | + + + | Race | White | + + + | Ethnic Group | Not or | + + + Author + + + | Author | [facility] | + + + | Organization | [facility] | + + + | Address | Unknown | + + + | Phone | Unavailable | + + + Support + + + + + | Name | Relationship | Address | Phone | + + + + + | Margarito Owusu | ECON | [address] | | | | | [place] | | | | | [address] | | + + + + + Care Team Providers + +------+ + | Care Music Director Name | Role | Phone | [...] Description | +--------+---------+ + + + | 03/06/ | Office | Otolaryngology | Diamond Drake | Postop check | | 2013 | Visit | Otology Services at | MD Josey [address] | (Primary Dx) | | | | [facility] [address] | [address] | | | | | [address] | [place], [place] | | | | | Mailcode: [id number] | [address] | | | | | Physician's [facility] | [phone] | | | | | [place], [place] | | | | | | [address] | | | | | | [phone] | | | +--------+---------+ + + + [...] documented as of this encounter Progress Notes Loulou Gipson, Diamond Dowling MD - 03/06/2014 11:38 AM PDTDate: 03/06/2014 Edgar Marquez is status post right ear revision tszgg-aiqy-ryof tympanomastoidectomy on 12/22/[address] Plunkett. He also has a left cochlear implant. Intraoppertive findings on 12/22/13 : There was a large pocket of skin and granulation tissu e in the patient's mastoidectomy cavity in the sinodural angle, with a large scar bound in t he cavity. He had a very small meatoplasty. An otomicroscope is used for exam and cleaning of right ear edomh-uuiw-xcry tympanomastoide ctomy cavity. Meatus is widely patent. Facial ridge is low. I remove some granulation tissue from sinodural angle and cauterize it with silver nitrate. A/P: Edgar Marquez is doing well status post right ear revision mzilu-xjmj-wgdo tymp anomastoidectomy on 12/22/13. He will follow up in 3 months for more ear cleaning.Electronica lly signed by Diamond Gipson MD at 03/07/2014 12:16 AM PDTdocumented in this encounter Plan of Treatment +--------+ + + + + | Date | Type | Specialty | Care Team | Description | +--------+ + + + + | 04/29/ | Diagnostic | Public Records Officer | Marce Meyer | | | 2018 | Visit | | K, AuD [address] [facility] | | | | | | [address] | | | | | | [place], [place] | | | | | | [address] | | +--------+ + + + + documented as of this encounter Visit Diagnoses + + | Diagnosis | + + | Postop check - Primary Follow-up examination, following unspecified surgery | + + documented in this encounter"
--- OUTSIDE RECORDS SUMMARY | ~2019-04-25 | XMS | Encounter Summary ---
Demographics + + + | Address | [address] | | | [place] [address] | + + + | Home Phone | | + + + | Preferred Language | Unknown | + + + | Marital Status | Single | + + + | Episcopalian Affiliation | BAP | + + + | Race | White | + + + | Ethnic Group | Not or | + + + Author + + + | Author | [facility] | + + + | Organization | [facility] | + + + | Address | Unknown | + + + | Phone | Unavailable | + + + Support + + + + + | Name | Relationship | Address | Phone | + + + + + | Margarito Owusu | ECON | [address] | | | | | [place] | | | | | [address] | | + + + + + Care Team Providers + +------+ + | Care Admissions Manager Name | Role | Phone | + +------+ + | Jaison Chávez MD | PCP | | + +------+ + Encounter Details +--------+ + + + + | Date | Type | Department | Care Team | Description | +--------+ + + + + | 10/22/ | Results | NON[facility] EP[facility] | Omari Tay, | | | 2009 | Only | Department | | | +--------+ + + + [...] + + | 04/29/ | Diagnostic | Audio Visual Coordinator | Marce Meyer | | | 2019 | Visit | | Eve Briseno [address] | | | | | | [address] | | | | | | [place], [place] | | | | | | [address] | | +--------+ + + + + documented as of this encounter Procedures + +--------+ + + + | Procedure Name | Priori | Date/Time | Associated Diagnosis | Comments | | | ty | | | | + +--------+ + + + | CBC WITH MANUAL | Routin | 10/22/2009 | | Results for this | | DIFFERENTIAL | e | 10:55 AM | | procedure are in the | | | | PDT | | results section. | + +--------+ + + + | COMPLETE METABOLIC | Routin | 10/22/2009 | | Results for this | | SET | e | 10:55 AM | | procedure are in the | | (NA,K,CL,CO2,BUN,CRE | | PDT | | results section. | | AT,GLUC,CA,AST,ALT,B | | | | | | TERRY TOTAL,ALK | | | | | | PHOS,ALB,PROT TOTAL) | | | | | + +--------+ + + + | C-REACTIVE PROTEIN | Routin | 10/22/2009 | | Results for this | | | e | 10:55 AM | | procedure are in the | | | | PDT | | results section. | + +--------+ + + + documented in this encounter Results C-REACTIVE PROTEIN (10/22/2009 10:55 AM PDT) + + + + + + | Component | Value | Ref Range | Performed | Pathologist | | | | | At | Signature | + + + + + + | C-REACTIVE | 0.37Comment: Test | <0.80 mg/dL | [facility] | | | PROTEIN | performed at [facility] | | | | [facility]- | | -[place] | | | | [address] | | | | | | [address], | | | | | | [place] [address] | | | | | | : ASHLEY C SOL,MD | | | | + + + + + + + + | Specimen | + + | | + + + + + + + | Performing | Address | City/State/Zipcode | Phone Number | | Organization | | | | + + + + + | [facility] | [address] | [place] [address] | [phone] | | [facility] | | | | + + + + + | [facility] | | | | | [facility] | | | | + + + + + CBC WITH MANUAL DIFFERENTIAL (10/22/2009 10:55 AM PDT) + + + + + + | Component | Value | Ref Range | Performed | Pathologist | | | | | At | Signature | + + + + + + | WHITE BLOOD | 8.0 | 4.3 - 11.0 X10 | [facility] | | | CELL COUNT | | 3/ul | A MEDICAL | | | | | | CENTER | | + + + + + + | WBC, | MUSIC COMPOSITION TEACHER | X10 3/uL | [facility] | | | ADJUSTED | | | A MEDICAL | | | | | | CENTER | | + + + + + + | HEMOGLOBIN | 12.4 | 12.3 - 17.0 | [facility] | | | | | g/dL | A MEDICAL | | | | | | CENTER | | + + + + + + | RED BLOOD | 4.10 (L) | 4.7 - 6.1 X10 | [facility] | | | CELL COUNT | | 6/uL | A MEDICAL | | | | | | CENTER | | + + + + + + | HEMATOCRIT | 35.2 (L) | 40.0 - 54.0 % | [facility] | | | | | | A MEDICAL | | | | | | CENTER | | + + + + + + | MCV | 85.8 | 82 - 100 fl | [facility] | | | | | | A MEDICAL | | | | | | CENTER | | + + + + + + | MCH | 30.2 | 28.0 - 32.0 pg | [facility] | | | | | | A MEDICAL | | | | | | CENTER | | + + + + + + | MCHC | 35.2 | 32 - 36 g/dL | [facility] | | | | | | A MEDICAL | | | | | | CENTER | | + + + + + + | RDW | 15.2 (H) | 12 - 15 fL | [facility] | | | | | | A MEDICAL | | | | | | CENTER | | + + + + + + | PLATELET | 151 | 150 - 450 X10 3 | [facility] | | | COUNT | | | A MEDICAL | | | | | | CENTER | | + + + + + + | MPV | 7.0 (L) | 9.0 - 12.0 fL | [facility] | | | | | | A MEDICAL | | | | | | CENTER | | + + + + + + | NEUTROPHIL | 72.2 | 40 - 80 % | [facility] | | | % | | | A MEDICAL | | | | | | CENTER | | + + + + + + | LYMPHOCYTE | 13.2 (L) | 20 - 50 % | [facility] | | | % | | | A MEDICAL | | | | | | CENTER | | + + + + + + | EOS % | 4.1 | 0 - 5 % | [facility] | | | | | | A MEDICAL | | | | | | CENTER | | + + + + + + | BASO % | 3.3 (H) | 0 - 1 % | [facility] | | | | | | A MEDICAL | | | | | | CENTER | | + + + + + + | MONOCYTE % | 7.2 | 2 - 10 % | [facility] | | | | | | A MEDICAL | | | | | | CENTER | | + + + + + + | BANDS % | MUSIC COMPOSITION TEACHER | 0 - 7 % | [facility] | | | | | | A MEDICAL | | | | | | CENTER | | + + + + + + | NEUTRO % | 79 (H) | 40 - 70 % | [facility] | | | | | | A MEDICAL | | | | | | CENTER | | + + + + + + | LYMPHOCYTE | 13 | 10 - 45 % | [facility] | | | %, MANUAL | | | A MEDICAL | | | | | | CENTER | | + + + + + + | MONOCYTE%, | 6 | 2 - 10 % | [facility] | | | MANUAL | | | A MEDICAL | | | | | | CENTER | | + + + + + + | EOSINOPHIL% | MUSIC COMPOSITION TEACHER | 0 - 5 % | [facility] | | | , MANUAL | | | A MEDICAL | | | | | | CENTER | | + + + + + + | BASOPHIL%, | 2 (H) | 0 - 1 % | [facility] | | | MANUAL | | | A MEDICAL | | | | | | CENTER | | + + + + + + | REACTIVE | MUSIC COMPOSITION TEACHER | 0.0 - 4.0 % | [facility] | | | LYMPHS % | | | A MEDICAL | | | | | | CENTER | | + + + + + + | BANDS % | MUSIC COMPOSITION TEACHER | 0 - 7 % | [facility] | | | | | | A MEDICAL | | | | | | CENTER | | + + + + + + | METAMYELOCY | MUSIC COMPOSITION TEACHER | 0 - 0 % | [facility] | | | BRANDON % | | | A MEDICAL | | | | | | CENTER | | + + + + + + | MYELOCYTES | MUSIC COMPOSITION TEACHER | 0 - 0 % | [facility] | | | % | | | A MEDICAL | | | | | | CENTER | | + + + + + + | PROMYELOCYT | MUSIC COMPOSITION TEACHER | 0 - 0 % | [facility] | | | ES % | | | A MEDICAL | | | | | | CENTER | | + + + + + + | BLASTS | MUSIC COMPOSITION TEACHER | 0 - 0 % | [facility] [...] + + + | RBC | 1+ ANISO | NORMAL | [facility] | | | [...] + + + + | PLATELET | NORM PLATELET MORPH | NORMAL | [facility] | | | MORPHOLOGY | | | A MEDICAL | | | | | | CENTER | | + + + + + + | NUCLEATED | MUSIC COMPOSITION TEACHER | | [facility] | | | RBCS | | | A MEDICAL | | | | | | CENTER | | + + + + + + | GIANT PLT | MUSIC COMPOSITION TEACHER | | [facility] | | | | | | A MEDICAL | | | | | | CENTER | | + + + + + + | SEDIMENTATI | 21 (H) | 1 - 15 MM/HR | [facility] | | | ON RATE | | | A MEDICAL | | [...] + + + + | [facility] | And | [place] [address] | | | [facility] | Streets | | | + + + + + COMPLETE METABOLIC SET (NA,K,CL,CO2,BUN,CREAT,GLUC,CA,AST,ALT,BILI TOTAL,ALK PHOS,ALB,PROT TOTAL) (10/22/2009 10:55 AM PDT) + + + + + [...] + + + + | POTASSIUM, | 4.3 | 3.5 - 5.2 MEQ/L | [facility] | | | PLASMA | | | A MEDICAL | | | (LAB) | | | CENTER | | + + + + + + | CO2 | 24 | 22 - 28 MEQ/L | [facility] | | | | | | A MEDICAL | | | | | | CENTER | | + + + + + + | CHLORIDE, | 100 | 98 - 106 MEQ/L | [facility] | | | PLASMA | | | A MEDICAL | | | (LAB) | | | CENTER | | + + + + + + | GLUCOSE, | 108 (H) | 70 - 105 MG/DL | [facility] | | | PLASMA | | | A MEDICAL | | | (LAB) | | | CENTER | | + + + + + + | BUN, PLASMA | 14 | 8 - 30 MG/DL | [facility] | | | (LAB) | | | A MEDICAL | | | | | | CENTER | | + + + + + + | CREATININE | 0.65 (L) | 0.9 - 1.3 MG/DL | [facility] | | | PLASMA | | | A MEDICAL | | | (LAB) | | | CENTER | | + + + + + + | BUN/CREATIN | 21 (H) | 6 - 20 RATIO | [facility] | | | INE RATIO | | | A MEDICAL | | | | | | CENTER | | + + + + + + | CALCIUM, | 9.2 | 8.5 - 10.8 | [facility] | | | PLASMA | | MG/DL | A MEDICAL | | | (LAB) | | | CENTER | | + + + + + + | AST(SGOT) | 24 | 10 - 41 U/L | [facility] | | | | | | A MEDICAL | | | | | | CENTER | | + + + + + + | ALT (SGPT) | 33 | 7 - 51 U/L | [facility] | | | | | | A MEDICAL | | | | | | CENTER | | + + + + + + | ALK PHOS | 87 | 40 - 180 U/L | [facility] | | | | | | A MEDICAL | | | | | | CENTER | | + + + + + + | TOTAL | 7.0 | 6.7 - 8.5 G/DL | [facility] | | | PROTEIN, | | | A MEDICAL | | | PLASMA | | | CENTER | | | (LAB) | | | | | + + + + + + | ALBUMIN, | 4.0 | 3.5 - 5.0 G/DL | [facility] | | | PLASMA | | | A MEDICAL | | | (LAB) | | | CENTER | | + + + + + + | BILIRUBIN | 0.4 | 0.2 - 1.6 MG/DL | [facility] [...] + + + + | FASTING? | 15 HR | HR | [facility] | | | [...] + | [facility] | [address] | [place] [address] | | | [facility] | [place] | | | + + + + + documented in this encounter Visit Diagnoses Not on filedocumented in this encounter"
--- OUTSIDE RECORDS SUMMARY | ~2019-04-25 | XMS | Encounter Summary ---
Demographics + + + | Address | [address] | | | [place] [address] | + + + | Home Phone | | + + + | Preferred Language | Unknown | + + + | Marital Status | Single | + + + | Judaism Affiliation | BAP | + + + | Race | White | + + + | Ethnic Group | Not or | + + + Author + + + | Author | [facility] | + + + | Organization | [facility] | + + + | Address | Unknown | + + + | Phone | Unavailable | + + + Support + + + + + | Name | Relationship | Address | Phone | + + + + + | Margarito Owusu | ECON | [address] | | | | | [place] | | | | | [address] | | + + + + + Care Team Providers + +------+ + | Care Aircraft Painter Name | Role | Phone | + +------+ + | Jaison Chávez MD | PCP | | + +------+ + Encounter Details +--------+ + + + + | Date | Type | Department | Care Team | Description | +--------+ + + + + | 03/28/ | Results | NON[facility] | Ileana Ogden | | | 2009 | Only | Department | MD Allan Keane | | | | | | [place], | | | | | | [place] [address] | | | | | | [phone] | | | | | | | [...] + + | 04/29/ | Diagnostic | Auto Rebuilder | Marce Meyer | | | 2019 | Visit | | Eve Briseno [address] [facility] | | | | | | [address] | | | | | | [place], [place] | | | | | | [address] | | +--------+ + + + + documented as of this encounter Procedures + +--------+ + + + | Procedure Name | Priori | Date/Time | Associated Diagnosis | Comments | | | ty | | | | + +--------+ + + + | UPPER EXTREMITY | Routin | 03/28/2010 | | Results for this | | WITHOUT [address] | e | 2:42 PM | | procedure are in the | | | | PDT | | results section. | + +--------+ + + + documented in this encounter Results UPPER EXTREMITY WITHOUT (03/28/2010 2:42 PM PDT) + + | Specimen | + + | | + + + + + | Narrative | Performed At | + + + | EXAM: RIGHT SHOULDER CT HISTORY: Pain COMPARISON: None FINDINGS: | [facility] | | CT scan of the right shoulder was performed without intravenous | DEPARTMENT OF | | contrast administration. Reconstruction images were obtained in | RADIOLOGY | | multiple projections. Mild bony sclerosis and tiny subchondral cysts | | | are noted at the acromioclavicular joint consistent with | | | osteoarthritis ( series three image 6). Mild irregularity and tiny | | | spurs are noted at the glenoid. There is slight narrowing of the | | | glenohumeral joint space present. These changes consistent with | | | mild osteoarthritis. Small cysts is noted at the lateral humeral | | | head (series 200, image 38). No acute bony fracture, dislocation or | | | grossly destructive bony lesion is seen. No abnormal soft tissue | | | calcification is noted. IMPRESSION: Mild to moderate degenerative | | | disease is seen at the acromioclavicular joint and glenohumeral | | | joint. | | + + + + + | Procedure Note | + + | Interface, Radiology Results - 03/12/2015 1:57 PM PDT EXAM: RIGHT SHOULDER CT | | HISTORY: Pain | | COMPARISON: None | | FINDINGS: CT scan of the right shoulder was performed without | | intravenous contrast administration. Reconstruction images were | | obtained in multiple projections. Mild bony sclerosis and tiny | | subchondral cysts are noted at the acromioclavicular joint consistent | | with osteoarthritis ( series three image 6). | | Mild irregularity and tiny spurs are noted at the glenoid. There is | | slight narrowing of the glenohumeral joint space present. These | | changes consistent with mild osteoarthritis. Small cysts is noted at | | the lateral humeral head (series 200, image 38). | | No acute bony fracture, dislocation or grossly destructive bony | | lesion is seen. No abnormal soft tissue calcification is noted. | | IMPRESSION: Mild to moderate degenerative disease is seen at the | | acromioclavicular joint and glenohumeral joint. | + + + +---------+ + + [...]
--- OUTSIDE RECORDS SUMMARY | ~2019-04-25 | XMS | Encounter Summary ---
Demographics + + + | Address | [address] | | | [place] [address] | + + + | Home Phone | | + + + | Preferred Language | Unknown | + + + | Marital Status | Single | + + + | Episcopal Affiliation | BAP | + + + | Race | White | + + + | Ethnic Group | Not or | + + + Author + + + | Author | [facility] | + + + | Organization | [facility] | + + + | Address | Unknown | + + + | Phone | Unavailable | + + + Support + + + + + | Name | Relationship | Address | Phone | + + + + + | Margarito Owusu | ECON | [address] | | | | | [place] | | | | | [address] | | + + + + + Care Team Providers + +------+ + | Care Homeopathic Doctor Name | Role | Phone | + [...] Required | | hernia | | [address] | | | | | Procedures | | [address] | | | | | CONSULT TO | | Tj Palacios, | | | | | SURGERY - | | [place] | | | | | GENERAL | | [address] | | | | | | | Phone: | | | | | | | [phone] | | | | | | | Fax: | | | | | | | [phone] | +--------+ + + + + + Encounter Details +--------+---------+ + + + | Date | Type | Department | Care Team | Description | +--------+---------+ + + + | 10/20/ | Office | Digestive Health | Ayana Butler, | Dysuria (Primary Dx) | | 2012 | Visit | Center at [facility] [address] | [address] | | | | | [address] | [place], [place] | | | | | Mailcode: Center | [address] | | | | | for Health and | [phone] | | | | | Healing, [address] | | | | | | [place], [place] | | | | | | [address] | | | | | | [phone] | | | +--------+---------+ + + + [...] + + + | Blood Pressure | 141/82 | 10/20/2012 2:21 PM | | | | | PDT | | + + + + + | Pulse | 110 | 10/20/2012 2:21 PM | | | | | PDT | | + + + + + | Temperature | 36.9 C (98.5 F) | 10/20/2012 2:21 PM | | | | | PDT | | + + + + + | Respiratory Rate | 18 | 10/20/2012 2:21 PM | | | | | PDT | | + + + + + | Oxygen Saturation | - | - | | + + + + + | Inhaled Oxygen | - | - | | | Concentration | | | | + + + + + | Weight | 117 kg (257 lb 14.4 | 10/20/2012 2:21 PM | | | | oz) | PDT | | + + + + + | Height | - | - | | + + + + + | Body Mass Index | 34.98 | 10/06/2012 8:25 AM | | | | | PDT | | + + + + + documented in this encounter Progress Notes Ayana Butler MD - 10/20/2012 2:50 PM PDT10/20/2012 [facility] Edgar Marquez presents 2 months status post ventral hernia repair complicated by inf ected seroma that has been drained. Current concerns include: none- still has some pulling pain on the right Pt denies: fever, chills, nausea, vomiting. He does complain of continued dysuria. He has b een off abx for one week. He is feeling well, but is still req some pain medication. Under went CT today that showed expected fluid collection above mesh- no recurrence. Pain controlled by: oxycodone. Good appetite, has been gaining weight. Physical exam: BP 141/82 | Pulse 110 | Temp (Src) 36.9 C (98.5 F) (Oral) | RR 18 | Wt 116.983 kg (257 lb 14.4 oz) General appearance: healthy, alert, cooperative, smiling and in a wheel chair Lungs: breathing easily Abdomen: soft, flat, mildly obese, generally nontender, slightly ttp RLQ, no rebound or Rov sings, no hernia palpated. Assessment: The patient is a 47 yo male recovering well following VHR with strattice. Plan: Patient will follow up as needed. UA/UCx today to eval for adequate treatment of prior UTI (proteus) No activity restrictionis Small Rx for vicodin provided. No further pain meds to be provided after this as he has re covered well from surgery. documented in this encounter Plan of Treatment +--------+ + + + + | Date | Type | Specialty | Care Team | Description | +--------+ + + + + | 04/29/ | Diagnostic | Fence Laborer | Marce Meyer | | | 2019 | Visit | | Eve Briseno [address] | | | | | | [address] | | | | | | [place] | | | | | | [address] | | +--------+ + + + + documented as of this encounter Results SRUTHI MUNIZ ONLY (10/20/2012 2:44 PM PDT) + + + + + + | Component | Value | Ref Range | Performed | Pathologist | | | | | At | Signature | + + + + + + | COLOR(UR) | Yellow | (none) | [facility] | | | | | | LABORATORY | | | | | | SERVICES, | | | | | | CORE | | + + + + + + | APPEARANCE | Sl.Cloudy | (none) | [facility] | | | | | | LABORATORY | | | | | | SERVICES, | | | | | | CORE | | + + + + + + | GLUCOSE(UR) | Negative | Negative, 50.0 | [facility] | | | | | mg/dL | LABORATORY | | | | | | SERVICES, | | | | | | CORE | | + + + + + + | PROTEIN(LAB | Negative | Negative, 30.0 | [facility] | | | ) | | mg/dL | LABORATORY | | | | | | SERVICES, | | | | | | CORE | | + + + + + + | BILIRUBIN | Negative | Negative | [facility] | | | | | | LABORATORY | | | | | | SERVICES, | | | | | | CORE | | + + + + + + | UROBILINOGE | <2.0 | <2.0 mg/dL | [facility] | | | N | | | LABORATORY | | | | | | SERVICES, | | | | | | CORE | | + + + + + + | PH(UR) | 7.0 | 5.0 - 8.0 | [facility] | | | | | | LABORATORY | | | | | | SERVICES, | | | | | | CORE | | + + + + + + | BLOOD | Negative | Negative | [facility] | | | | | | LABORATORY | | | | | | SERVICES, | | | | | | CORE | | + + + + + + | KETONES | Negative | Negative mg/dL | [facility] | | | | [...] | | | ESTERASE | | | LABORATORY | | | | | | SERVICES, | | | | | | CORE | | + + + + + + | SPECIFIC | 1.023 | 1.005 - 1.030 | [facility] | | | GRAVITY | | | LABORATORY | | | [...] [facility] | [address] | [place] [address] | | | SERVICES, CORE | [address] | | | + + + + + URINE, MICROSCOPIC EXAM (10/20/2012 2:44 PM PDT) + +---------+ + + + | Component | Value | Ref Range | Performed | Pathologist | | | | | At | Signature | + +---------+ + + + | RED CELLS | <1 | 0 - 3 /hpf | [facility] | | | | | | LABORATORY | | | | | | SERVICES, | | | | | | CORE | | + +---------+ + + + | WHITE CELLS | 2 | 0 - 5 /hpf | [facility] | | | | | | LABORATORY | | | | | | SERVICES, | | | | | | CORE | | + +---------+ + + + | BACTERIA | None | None /hpf | [facility] | | | | | | LABORATORY | | | | | | SERVICES, | | | | | | CORE | | + +---------+ + + + | YEAST (LAB) | None | None /hpf | [facility] | | | | | | LABORATORY | | | | | | SERVICES, | | | | | | CORE | | + +---------+ + + + | SQUAMOUS | Few (A) | None /hpf | [facility] | | | EPITHELIAL | | | LABORATORY | | | | | | SERVICES, | | | | | | CORE | | + +---------+ + + + | MUCOUS | None | None /hpf | [facility] | | | | | | LABORATORY | | | | | | SERVICES, | | | | | | CORE | | + +---------+ + + + | TRICHOMONAS | None | None /hpf | [facility] | | | | | | LABORATORY | | | | | | SERVICES, | | | | | | CORE | | + +---------+ + + + | NON-SQUAMOU | None | None /hpf | [facility] | | | S EPITH | | | LABORATORY | | | | | | SERVICES, | | | | | | CORE | | + +---------+ + + + | HYALINE | 0 | 0 - 2 /lpf | [facility] | | | CASTS | | | LABORATORY | | | | | | SERVICES, | | | | | | CORE | | + +---------+ + + + | GRANULAR | 0 | 0 - 2 /lpf | [facility] | | | CASTS | | | LABORATORY | | | | | | SERVICES, | | | | | | CORE | | + +---------+ + + + | CELLULAR | 0 | <=0 /lpf | [facility] | | | CASTS | | | LABORATORY | | | | | | SERVICES, | | | | | | CORE | | + +---------+ + + + | TRIPLE P04 | None | None /hpf | [facility] | | | CRYSTALS | | | LABORATORY | | | | | | SERVICES, | | | | | | CORE | | + +---------+ + + + | CALCIUM | None | None /hpf | [facility] | | | OXALATE | | | LABORATORY | | | SIMA | | | SERVICES, | | | | | | CORE | | + +---------+ + + + | URIC ACID | None | None /hpf | [facility] | | | CRYSTALS | | | LABORATORY | | | | | | SERVICES, | | | | | | CORE | | + +---------+ + + + | AMORPHOUS | None | None /hpf | [facility] | | | CRYSTALS | | | LABORATORY | | | [...] + + | [facility] | [address] | [place] [address] | | | SERVICES, CORE | [address] | | | + + + + + URINE SCREEN FOR CULTURE (10/20/2012 2:44 PM PDT) + + + + + + | Component | Value | Ref Range | Performed | Pathologist | | | | | At | Signature | + + + + + + | URINE | Negative | Negative | [facility] | | | SCREEN FOR | | | LABORATORY | | | CULTURE | | | SERVICES, | | | | | | CORE | | + + + + + + + + | Specimen | + + | Urine - Urine | + + + + + | Narrative | Performed At | + + + | Culture Screen Negative. Culture not indicated. | [facility] | | | LABORATORY | | | [facility] [place] | + + + + + + + + | Performing | Address | City/State/Zipcode | Phone Number | | Organization | | | | + + + + + | [facility] | [address] | [place] [address] | | | [facility] [place] | [address] | | | + + + + + documented in this encounter Visit Diagnoses + + | Diagnosis | + + | Dysuria - Primary | + + documented in this encounter"
--- OUTSIDE RECORDS SUMMARY | ~2019-04-25 | XMS | Encounter Summary ---
Demographics + + + | Address | [address] | | | [place] [address] | + + + | Home Phone | | + + + | Preferred Language | Unknown | + + + | Marital Status | Single | + + + | Holiness Affiliation | BAP | + + + | Race | White | + + + | Ethnic Group | Not or | + + + Author + + + | Author | [facility] | + + + | Organization | [facility] | + + + | Address | Unknown | + + + | Phone | Unavailable | + + + Support + + + + + | Name | Relationship | Address | Phone | + + + + + | Margarito Owusu | ECON | [address] | | | | | [place] | | | | | [address] | | + + + + + Care Team Providers + +------+ + | Care Lobster Fisherman Name | Role | Phone | + +------+ + | Maurice Zelaya MD | PCP | | + +------+ + Encounter Details +--------+ + + + + | Date | Type | Department | Care Team | Description | +--------+ + + + + | 07/12/ | Office | [facility] [address] | Sage Brantley, | Progress Note | | 2007 | Visit-Trans | E The | MD Allan Mullen | | | | chuy | [place] | [place] | | | | | [address] | [address] | | | | | | [phone] | | | | | | | [...] documented as of this encounter Progress Notes Sage Brantley - 07/12/2008 7:37 PM [facility] SLEEP STUDY FOLLOW UP NOTE [address] [place] [address] KISHOR VIVAR DATE OF SERVICE: July 12, 2008 PRIMARY CARE PHYSICIAN: REASON FOR FOLLOW-UP: The patient comes in for follow-up of his difficulty with nocturnal sleep disruption and daytime fatigue, despite treatment of his obstructive breathing with CPAP. He underwent retitration 06/07/2008. This demonstrated adequacy of CPAP at a pressure of 12 which is his current pressure. However, sleep was found to be significantly disrupted, in large part due to periodic limb movements of sleep. These disorders are occurring in the setting of a history of PTSD, bipolar affective disorder, and nightmares. I do think that it would be advantageous to treat his periodic limb movements of sleep and restless legs but I am concerned that first line therapy such as a dopamine agonist may exacerbate his underlying psychiatric disorders and nightmares. As such, I recommended trial of Gabapentin 300 mg at bedtime. He reports he had had this in the past but his insurance would not cover it for the related diagnosis. However, I think in this case, it is clearly indicated is a preferred therapy. I will write the prescription and we will work on any coverage issues. I would like to follow up with him in 3-4 weeks after initiation of therapy to determine his clinical response. We discussed potential side effects, including worsening depression, suicidality, change in mood cognition or other problems. He was encouraged to call me immediately should he be experiencing these and discontinue the medication over the course of several days. Follow-up will be in 3-4 weeks. AXIS A DIAGNOSIS: Obstructive sleep apnea syndrome, periodic limb movement disorder, bipolar affective disorder, nightmare disorder. PC/MedQ /[id number] Electronically Signed Sage Brantley MD [facility] [id number] ADMIT DATE: documented in th is encounter Plan of Treatment +--------+ + + + + | Date | Type | Specialty | Care Team | Description | +--------+ + + + + | 04/29/ | Diagnostic | Sexual Assault Response Coordinator | Marce Meyer | | | 2019 | Visit | | Eve Briseno [address] | | | | | | [address] | | | | | | [place] | | | | | | [address] | | +--------+ + + + + documented as of this encounter Visit Diagnoses Not on filedocumented in this encounter"
--- OUTSIDE RECORDS SUMMARY | ~2019-04-25 | XMS | Encounter Summary ---
Demographics + + + | Address | [address] | | | [place] [address] | + + + | Home Phone | | + + + | Preferred Language | Unknown | + + + | Marital Status | | + + + | Church Affiliation | Unknown | + + + | Race | Unknown | + + + | Ethnic Group | Unknown | + + + Author + + + | Author | [facility] | | | and [place] | + + + | Organization | [facility] | | | and [place] | + + + | Address | Unknown | + + + | Phone | Unavailable | + + + Support + + +---------+ + | Name | Relationship | Address | Phone | + + +---------+ + | No,Contact | ECON | Unknown | | + + +---------+ + Care Team Providers + +------+ + | Care Shirt Sorter Name | Role | Phone | + +------+ + | Maurice Zelaya MD | PCP | | + +------+ + Encounter Details +--------+ + + + + | Date | Type | Department | Care Team | Description | +--------+ + + + + | 03/15/ | Orders Only | [facility] | Jaret Thompson MD [address] | Seizure disorder | | 2019 | | NEUROLOGY [address] | [facility] | ([facility]) (Primary Dx) | | | | [address] | [address], | | | | | [place], [place] | [place] [address] | | | | | [address] | [phone] | | | | | [phone] | | | +--------+ + + + + Social History + +-------+ +--------+ + | Tobacco Use | Types | Packs/Day | Years | Date | | | | | Used | | + +-------+ +--------+ + | Former Smoker | | 2 | 40 | 04/15/1974 - | | | | | | 08/15/2013 | + +-------+ +--------+ + + +---+---+---+ | Smokeless Tobacco: | | | | | Never Used | | | | + +---+---+---+ + + +---------+ + | Alcohol Use | Drinks/We | oz/Week | Comments | | | ek | | | + + +---------+ + | No | | | | + + +---------+ + + + + | Sex Assigned [...] as of this encounter Plan of Treatment +--------+---------+ + + + | Date | Type | Specialty | Care Team | Description | +--------+---------+ + + + | 07/04/ | Office | Neurology | Jaret Thompson MD [address] | | | 2018 | Visit | | [facility] | | | | | | [address] | | | | | | [place] [address] | | | | | | [phone] | | | | | | | | +--------+---------+ + + + | 07/13/ | Office | Pulmonology | Hua Garcia, | | | 2018 | Visit | | [address] | | | | | | [place] | | | | | | [address] | | | | | | | | +--------+---------+ + + + + +--------+ + + | Name | Priori | Associated Diagnoses | Order Schedule | | | ty | | | + +--------+ + + | [facility] | Routin | Seizure disorder | 1 Occurrences | | | e | (HCC) | starting 03/15/2019 | | | | | until 04/20/2019 | + +--------+ + + documented as of this encounter Visit Diagnoses + + | Diagnosis | + + | Seizure disorder (HCC) - Primary Unspecified epilepsy without mention of intractable | | epilepsy | + + documented in this encounter"
--- OUTSIDE RECORDS SUMMARY | ~2019-04-25 | XMS | Encounter Summary ---
Demographics + + + | Address | [address] | | | [place] [address] | + + + | Home Phone | | + + + | Preferred Language | Unknown | + + + | Marital Status | Single | + + + | Druze Affiliation | BAP | + + + | Race | White | + + + | Ethnic Group | Not or | + + + Author + + + | Author | [facility] | + + + | Organization | [facility] | + + + | Address | Unknown | + + + | Phone | Unavailable | + + + Support + + + + + | Name | Relationship | Address | Phone | + + + + + | Margarito Owusu | ECON | [address] | | | | | [place] | | | | | [address] | | + + + + + Care Team Providers + +------+ + | Care Occ Therapist Name | Role | Phone | + +------+ + | Jaison Chávez MD | PCP | | + +------+ + Reason for Visit +--------+ + | Reason | Comments | +--------+ + | Other | Post Operative (12/22) He left a VM today 01/09 at 806am -That his | | | ears are still majorly infected asks for call back: more detail | | | in documentation below: | +--------+ + Encounter Details +--------+ + + + + | Date | Type | Department | Care Team | Description | +--------+ + + + + | 01/09/ | Telephone | Otolaryngology | Willie Plunkett, | Other (Post | | 2013 | | Otology Services at | MD | Operative (12/22) He | | | | [facility] [address] | | left a VM today 01/09 | | | | [address] | | at 806am -That his | | | | Mailcode: [address] | | ears are still | | | | [facility] | | majorly infected | | | | [place], [place] | | asks for call back: | | | | [address] | | more detail in | | | | [phone] | | documentation | | | | | | below:) | +--------+ + + + + Social [...] + + | 04/29/ | Diagnostic | Game Programmer | Marce Meyer | | | 2018 | Visit | | Eve Briseno [address] | | | | | | [address] | | | | | | [place], [place] | | | | | | [address] | | +--------+ + + + + documented as of this encounter Visit Diagnoses Not on filedocumented in this encounter"
--- OUTSIDE RECORDS SUMMARY | ~2019-04-25 | XMS | Encounter Summary ---
Demographics + + + | Address | [address] | | | [place] [address] | + + + | Home Phone | | + + + | Preferred Language | Unknown | + + + | Marital Status | Single | + + + | Orthodoxy Affiliation | BAP | + + + | Race | White | + + + | Ethnic Group | Not or | + + + Author + + + | Author | [facility] | + + + | Organization | [facility] | + + + | Address | Unknown | + + + | Phone | Unavailable | + + + Support + + + + + | Name | Relationship | Address | Phone | + + + + + | Margarito Owusu | ECON | [address] | | | | | [place] | | | | | [address] | | + + + + + Care Team Providers + +------+ + | Care Marketing Financial Analyst Name | Role | Phone | + +------+ + PCP | Unavailable | + +------+ + Reason for Visit + + + | Reason | Comments | + + + | Hearing loss | | + + + Durable Medical Equipment (Routine) +--------+--------+ + + + + | Status | Reason | Specialty | Diagnoses / | Referred By | Referred To | | | | | Procedures | Contact | Contact | +--------+--------+ + + + + | Closed | | Ultrasonic Cleaner | Procedures | Joan, | Ent | | | | | [place] | MD Jose | Cochlear Ppv | | | | | LITHIUM | [address] | [address] | | | | | [address] | Avenue | [place] | | | | | USE WITH | [address] | [address] Mailcode: | | | | | COCHLEAR | [place], [place] | [address] | | | | | IMPLANT | [address] | Physician's | | | | | | Phone: | Chris | | | | | | [phone] | [employer], [place] | | | | | | Fax: | [address] | | | | | | | Phone: | | | | | | | [phone] | | | | | | | Fax: | | | | | | | [phone] | +--------+--------+ + + + + Encounter Details +--------+---------+ + + + | Date | Type | Department | Care Team | Description | +--------+---------+ + + + | 12/02/ | Office | Otolaryngology | Haroon Poe, | Neural Hearing Loss | | 2005 | Visit | Cochlear Services | PhD | (Primary Dx) | | | | [address] | | | | | | [place] Mailcode: | | | | | | [address] [facility] | | | | | | [place], | | | | | | [place] [address] | | | | | | [phone] | | | +--------+---------+ + + + Social History + +-------+ [...] + documented as of this encounter Progress Haroon Francis - 12/02/2005 3:50 PM PDTOrdered Batteries [facility] documented in this encounter Plan of Treatment +--------+ + + + + | Date | Type | Specialty | Care Team | Description | +--------+ + + + + | 04/29/ | Diagnostic | Ultrasonic Cleaner | Marce Meyer | | | 2019 | Visit | | Eve Briseno [address] | | | | | | [address] | | | | | | [place], [place] | | | | | | [address] | | +--------+ + + + + documented as of this encounter Visit Diagnoses + + | Diagnosis | + + | Neural hearing loss, bilateral - Primary | + + documented in this encounter"
--- OUTSIDE RECORDS SUMMARY | ~2019-04-25 | XMS | Encounter Summary ---
Demographics + + + | Address | [address] | | | [place] [address] | + + + | Home Phone | | + + + | Preferred Language | Unknown | + + + | Marital Status | Single | + + + | Sikh Affiliation | BAP | + + + [...] [place] | | | | | [address] | | + + + + + Care Team Providers + +------+ + | Care Dull Coat Mill Operator Name | Role | Phone | + +------+ + | Cee Triana MD | PCP | Unavailable | + +------+ + Reason for Visit + + + | Reason | Comments | + + + | Return Patient | | + + + Encounter Details +--------+---------+ + + + | Date | Type | Department | Care Team | Description | +--------+---------+ + + + | 11/11/ | Office | Digestive Health | Ayana Butler, | Wound infection | | 2012 | Visit | Center at [facility] [address] | MD [address] | (Primary Dx) | | | | [address] | [place], [place] | | | | | Mailcode: [place] | [address] | | | | | for Health and | [phone] | | | | | [facility] | | | | | | [facility] [place] | | | | | | [address] | | | | | | [phone] | | | +--------+---------+ + + + [...] | drinks or equivalent | | with fantack at | | | | | start [...] + + + | Blood Pressure | 131/75 | 11/11/2012 8:28 AM | | | | | PDT | | + + + + + | Pulse | 107 | 11/11/2012 8:28 AM | | | | | PDT | | + + + + + | Temperature | 36.6 C (97.9 F) | 11/11/2012 8:28 AM | | | | | PDT | | + + + + + | Respiratory Rate | 16 | 11/11/2012 8:28 AM | | | | | PDT [...] | Height | 182.9 cm (6') | 11/11/2012 8:28 AM | | | | | PDT | | + + + + + | Body Mass Index | - | - | | + + + + + documented in this encounter Progress Notes Other, Faculty - 11/26/2012 10:34 AM PDTElectronically signed by Faculty Other at 3 10:34 AM Ayana Giordano MD - 11/15/2012 8:29 PM PDTDr. aMndeep Gabriel is attending of record for this patient encounter. Delfin James MD - 11/11/2012 10:33 AM [facility]11/2012 Edgar Marquez is a 47 y.o. Man with DM s/p ventral hernia repair in Jul 2012 complic ated by seroma which has been drained. He presents to clinic today for evaluation of wound infection. Earlier this week, he noticed redness and swelling at the superior aspect of his wound. He lanced it with a scalpel but stopped because he was concerned it went deeper. I t drained puss. He has had occasional fevers and chills. Exam: Area of fluctuance and induration at superior aspect of wound. Approx 4x3cm. Skin was num bed with epi+lidocaine and 2cm incision was made. Purulent material drained from wound and was sent for culture. Wound tracts inferiorly and laterally to the left about 8cm. Wound w as packed with 1" packing tape. A/P 47yo man with DM and h/o MRSA who presents with wound infection of the superior aspect of h is incision along with fevers and chills. Abscess opened, drained and packed in clinic. -Home with 10d course of clindamycin (will follow up cultures and adjust antibiotics as nee ded) -Renewed Vicodin script for 30tabs, for pain control with dressing changes -BID packing changes (patient has packed wound many times before and feels comfortable with instructions) -RTC next Thursday or Thursday for follow up, return sooner if fevers continue or drainage w orseness Patient was examined and plan formulated with Dr. Carrillo. Dr. Mandeep Gabriel is attending of record for this patient encounter. DELFIN LEW MD Surgery R1 documented in this e ncounter Plan of Treatment +--------+ + + + + | Date | Type | Specialty | Care Team | Description | +--------+ + + + + | 04/29/ | Diagnostic | Oracle Apex Developer | Marce Meyer | | | 2019 | Visit | | K, AuD [address] | | | | | | [address] | | | | | | [place], [place] | | | | | | [address] | | +--------+ + + + + documented as of this encounter Procedures + +--------+ + + + | Procedure Name | Priori | Date/Time | Associated Diagnosis | Comments | | | ty | | | | + +--------+ + + + | CULTURE, WOUND | Routin | 11/11/2012 | Wound infection | Results for this | | ABSCESS OR ASPIRATE | e | 10:29 AM | | procedure are in the | | W/ ANAEROBE | | PDT | | results section. | + +--------+ + + + documented in this encounter Results CULTURE, WOUND ABSCESS OR ASPIRATE W/ ANAEROBE (11/11/2012 10:29 AM PDT) + + + + + + | Component | Value | Ref Range | Performed | Pathologist | | | | | At | Signature | + + + + + + | SPECIMEN | Abscess | | [facility] | | | TYPE | | | [facility] | | | | | | [place] | | + + + + + + | SOURCE BODY | Stomach | | [facility] - | | | SITE | | | [facility] - | | | | | | [place] | | + + + + + + | CULTURE | C Abscess/Asp, | | [facility] - | | | RESULT | Aer/AnaSource: | | [facility] - | | | | Stomach | | [place] | | | | Final | | | | | | GRAM STAIN:No squamous | | | | | | epithelial cells Many | | | | | | polymorphonuclear cells | | | | | | No organisms seen | | | | | | CULTURE RESULT:Rare Skin | | | | | | seb No anaerobic | | | | | | organisms isolated. | | | | + + + + + + + + | Specimen | + + | Abscess - Stomach | + + + + + + + | Performing | Address | City/State/Zipcode | Phone Number | | Organization | | | | + + + + + | [facility] | [address] | [place] [address] | | | [place] | | | | + + + + + documented in this encounter Visit Diagnoses + + | Diagnosis | + + | Wound infection - Primary Posttraumatic wound infection not elsewhere classified | + + documented in this encounter
--- OUTSIDE RECORDS SUMMARY | ~2019-04-25 | XMS | Encounter Summary ---
Demographics + + + | Address | [address] | | | [place] [address] | + + + | Home Phone | | + + + | Preferred Language | Unknown | + + + | Marital Status | Single | + + + | Roman Catholic Affiliation | BAP | + + [...] [place] | | | | | [address] | | + + + + + Care Team Providers + +------+ + | Care Brand Designer Name | Role | Phone | + +------+ + | Jaison Chávez MD | PCP | | + +------+ + Encounter Details +--------+ + + + + | Date | Type | Department | Care Team | Description | +--------+ + + + + | 04/04/ | Results | [facility] | Tobias Eli, | | | 2008 | Only | Department | [address] | | | | | [place] | | | | | | [address] | | | | | | [phone] | | | | | | | [...] + + | 04/29/ | Diagnostic | Transport Driver | Marce Meyer | | | 2019 | Visit | | Eve Briseno [address] [facility] | | | | | | [address] | | | | | | [place], [place] | | | | | | [address] | | +--------+ + + + + documented as of this encounter Procedures + +--------+ + + + | Procedure Name | Priori | Date/Time | Associated Diagnosis | Comments | | | ty | | | | + +--------+ + + + | ABDOMEN AND PELVIS | Routin | 04/04/2009 | | Results for this | | WITH [id number] | e | 12:34 AM | | procedure are in the | | | | PDT | | results section. | + +--------+ + + + documented in this encounter Results ABDOMEN AND PELVIS WITH [id number] (04/04/2009 12:34 AM PDT) + + | Specimen | + + | | + + + + + | Narrative | Performed At | + + + | CT ABDOMEN AND PELVIS WITH CONTRAST TECHNIQUE: Multiple | [facility] | | contiguous axial 5-mm images obtained through the abdomen and pelvis | DEPARTMENT OF | | following the administration of both IV and oral contrast. Coronal | RADIOLOGY | | and sagittal reformats are obtained. COMPARISON: 10/30/08 FINDINGS | | | IN THE ABDOMEN: The preliminary report was issued by Dr. Diego of | | | [facility]. Bibasilar atelectasis is noted within the lung | | | bases. The liver, spleen, adrenal glands, pancreas, and stomach | | | are unremarkable. The gallbladder is contracted, resulting in | | | artifactual wall thickening. Within the anterior abdominal wall | | | within the midline, there is a large wound incision which is | | | diastatic. There is some packing material present within the lower | | | incision. There is extensive subcutaneous soft tissue attenuation | | | and thickening within the anterior abdominal wall, likely | | | representing either phlegmon or chronic inflammation. There is a | | | healing colostomy tract within the right lower anterior abdominal | | | wall. There is mesh material seen within the anterior abdominal | | | wall. There are multiple loculated small rim-enhancing fluid | | | collections identified within the anterior peritoneum, suspicious for | | | either infected liquified hematoma or abscess. There is also | | | rim-enhancing fluid collection which is irregular in appearance | | | within the lower anterior abdominal wall within the deep subcutaneous | | | soft tissues. The unopacified distal small bowel loops are within | | | normal limits. The colon is largely filled with stool and is | | | grossly within normal limits. FINDINGS IN THE PELVIS: The urinary | | | bladder is asymmetrically thickened along the anterior aspect, likely | | | secondary to incomplete distention. The prostate gland, seminal | | | vesicles, and rectosigmoid colon are unremarkable. Bilateral | | | pelvic phleboliths are noted. No pelvic ascites or pelvic mass is | | | identified. IMPRESSION: Midline diastatic wound with packing | | | material centrally within the wound. There is incomplete closure | | | of the wound superiorly. Extensive chronic inflammation/infection | | | of the deep subcutaneous soft tissues. There are also small thin | | | rim-enhancing fluid collections within the anterior peritoneum, also | | | suspicious for abscess/infected liquified hematoma. [id number] | | + + + + + | Procedure Note | + + | Interface, Radiology Results - 03/16/2015 11:[address] ABDOMEN AND PELVIS WITH | | CONTRASTTECHNIQUE: Multiple contiguous axial 5-mm images obtained through theabdomen | | and pelvis following the administration of both IV and oralcontrast. Coronal and | | sagittal reformats are obtained.COMPARISON: 10/30/08FINDINGS IN THE ABDOMEN:The | | preliminary report was issued by Dr. Diego of [facility].Bibasilar atelectasis | | is noted within the lung bases. The liver,spleen, adrenal glands, pancreas, and stomach | | are unremarkable. Thegallbladder is contracted, resulting in artifactual wall | | thickening.Within the anterior abdominal wall within the midline, there is alarge wound | | incision which is diastatic. There is some packingmaterial present within the lower | | incision. There is extensivesubcutaneous soft tissue attenuation and thickening within | | theanterior abdominal wall, likely representing either phlegmon orchronic inflammation. | | There is a healing colostomy tract within theright lower anterior abdominal wall. | | There is mesh material seenwithin the anterior abdominal wall. There are multiple | | loculatedsmall rim-enhancing fluid collections identified within the anteriorperitoneum, | | suspicious for either infected liquified hematoma orabscess. There is also | | rim-enhancing fluid collection which isirregular in appearance within the lower anterior | | abdominal wallwithin the deep subcutaneous soft tissues. The unopacified distalsmall | | bowel loops are within normal limits. The colon is largelyfilled with stool and is | | grossly within normal limits.FINDINGS IN THE PELVIS: The urinary bladder is | | asymmetricallythickened along the anterior aspect, likely secondary to | | incompletedistention. The prostate gland, seminal vesicles, and rectosigmoidcolon are | | unremarkable. Bilateral pelvic phleboliths are noted. Nopelvic ascites or pelvic mass | | is identified.IMPRESSION: Midline diastatic wound with packing material centrallywithin | | the wound. There is incomplete closure of the woundsuperiorly. Extensive chronic | | inflammation/infection of the deepsubcutaneous soft tissues. There are also small thin | | rim-enhancingfluid collections within the anterior peritoneum, also suspicious | | forabscess/infected liquified hematoma.[id number] | |thickened along the anterior aspect, likely secondary to incomplete | |distention. The prostate gland, seminal vesicles, and rectosigmoid | |colon are unremarkable. Bilateral pelvic phleboliths are noted. No | |pelvic ascites or pelvic mass is identified. | |IMPRESSION: Midline diastatic wound with packing material centrally | |within the wound. There is incomplete closure of the wound | |superiorly. Extensive chronic inflammation/infection of the deep | |subcutaneous soft tissues. There are also small thin rim-enhancing | |fluid collections within the anterior peritoneum, also suspicious for | |abscess/infected liquified hematoma. | |[id number] | + + + +---------+ + + [...]
--- OUTSIDE RECORDS SUMMARY | ~2019-04-25 | XMS | Encounter Summary ---
Demographics + + + | Address | [address] | | | [place] [address] | + + + | Home Phone | | + + + | Preferred Language | Unknown | + + + | Marital Status | Single | + + + | Synagogue Affiliation | BAP | + + + [...] [place] | | | | | [address] | | + + + + + Care Team Providers + +------+ + | Care Event Sales Assistant Name | Role | Phone | + [...] + + + | Closed | | | | | | +--------+--------+ + + + + Encounter Details +--------+---------+ + + + | Date | Type | Department | Care Team | Description | +--------+---------+ + + + | 03/30/ | Surgery | [address] | Willie Plunkett, | TYMPANOPLASTY WITH | | 2012 | | [address] | MD | CANAL WALL DOWN, | | | | [address] | | MEATOPLASTY, NERVE | | | | [facility] | | MONITORING | | | | Surgery Admitting | | | | | | Desk Located on the | | | | | | 4th floor, Room | | | | | | [address] [place] [address] | | | | | | [address] | | | +--------+---------+ + + + Social History + + + +--------+ + | Tobacco Use | Types | Packs/Day | Years | Date | | | | | Used | | + + + +--------+ + | Current Some Day | Cigarettes | 3 | 20 | Quit: 06/20/2012 | | Smoker | | | | | + + + +--------+ + + +---+---+---+ | Smokeless Tobacco: | | | | | Never Used | | | | + +---+---+---+ + + | Comments: pt states he smokes about 1-2 cig a day | + + + + + + [...] + + + | Blood Pressure | 116/69 | 03/30/2013 7:03 AM | | | | | PDT | | + + + + + | Pulse | 88 | 03/30/2013 7:03 AM | | | | | PDT | | + + + + + | Temperature | 36.8 C (98.2 F) | 03/30/2013 7:03 AM | | | | | PDT | | + + + + + | Respiratory Rate | - | - | | + + + + + | Oxygen Saturation | 92% | 03/30/2013 7:03 AM | | | | | PDT | | + + + + + | Inhaled Oxygen | - | - | | | Concentration | | | | + + + + + | Weight | 117 kg (257 lb 15 | 03/30/2013 7:03 AM | | | | oz) | PDT | | + + + + + | Height | 184.8 cm (6' 0.76") | 03/30/2013 7:03 AM | | | | | PDT | | + + + + + | Body Mass Index | 34.26 | 03/30/2013 7:03 AM | | | | | PDT | | + + + + + documented in this encounter Medications at Time of Discharge + + + +---------+ + + | Medication | Sig | Dispensed | Refills | Start | End Date | | | | | | Date | | + + + +---------+ + + | albuterol 90 | Inhale 2 puffs every | | 0 | 04/08/20 | | | mcg/actuation | 4 hours PRN | | | 12 | | | inhalation HFA | | | | | | | aerosol inhaler | | | | | | + + + +---------+ + + | Aspirin 81 mg Oral | Take 1 Tab by mouth | 90 Tab | 3 | 05/21/20 | | | tablet | once daily. | | | 12 | | + + + +---------+ + + | carBAMazepine 200 | Take by mouth. One | | 0 | | | | mg Oral tablet | tablet in AM and two | | | | | | | tablets in the | | | | | | | afternoon | | | | | + + + +---------+ + + | cyclobenzaprine | Take 10 mg by mouth | | 0 | | | | (FLEXERIL) 10 mg | three times daily as | | | | | | Oral tablet | needed. Do not use | | | | | | | longer than 2-3 | | | | | | | weeks. | | | | | + + + +---------+ + + | furosemide 20 mg | Take 20 mg by mouth | | 0 | | | | Oral tablet | once daily. 07/28 tab | | | | | | | twice a day | | | | | + + + +---------+ + + | | Take 25 mg by mouth | | 0 | | | | hydrochlorothiazide | once daily. | | | | | | 25 mg Oral tablet | | | | | | + + + +---------+ + + | levothyroxine 25 | Take 25 mcg by mouth | | 0 | | | | mcg Oral tablet | before breakfast. | | | | | + + + +---------+ + + | LORazepam (ATIVAN) | Take 2 mg by mouth | | 0 | | | | 2 mg Oral tablet | every four hours as | | | | | | | needed. | | | | | + + + +---------+ + + | lurasidone | Take by mouth once | | 0 | | | | (LATUDA) 40 mg Oral | daily. | | | | | | tablet | | | | | | + + + +---------+ + + | omeprazole | Take 20 mg by mouth | | 0 | | | | (PRILOSEC) 20 mg | once daily. | | | | | | Oral capsule,delayed | | | | | | | release(/EC) | | | | | | + + + +---------+ + + documented as of this encounter Plan of Treatment +--------+ + + + + | Date | Type | Specialty | Care Team | Description | +--------+ + + + + | 04/29/ | Diagnostic | Molding Plasterer | Marce Meyer | | | 2019 | Visit | | Eve Briseno [address] [facility] | | | | | | [address] | | | | | | [place], [place] | | | | | | [address] | | +--------+ + + + + documented as of this encounter Procedures + +--------+ + + + | Procedure Name | Priori | Date/Time | Associated Diagnosis | Comments | | | ty | | | | + +--------+ + + + | TYMPANOPLASTY | Electi | 03/30/2013 | Cholesteatoma of | | | | ve | 3:30 PM | middle ear and | | | | Surgic | PDT | mastoid | | | | al | | | | + +--------+ + + + | CAPILLARY BLOOD | Routin | 03/30/2013 | | Results for this | | GLUCOSE (NO CHG), | e | 7:12 AM | | procedure are in the | | POC | | PDT | | results section. | + +--------+ + + + documented in this encounter Results CAPILLARY BLOOD GLUCOSE (NO CHG), POC (03/30/2013 7:12 AM PDT) + +---------+ + + + | Component | Value | Ref Range | Performed | Pathologist | | | | | At | Signature | + +---------+ + + + | BLOOD | 108 (H) | 60 - 99 mg/dL | [facility] - | | | GLUCOSE, | | [...] + | AILYN LAUGHLIN | [address] | [place], [place] | | | [facility] | 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
--- OUTSIDE RECORDS SUMMARY | ~2019-04-25 | XMS | Encounter Summary ---
Demographics + + + | Address | [address] | | | [place] [address] | + + + | Home Phone | | + + + | Preferred Language | Unknown | + + + | Marital Status | Single | + + + | Jehovah'S Witness Affiliation | BAP | + + + | Race | White | + + + | Ethnic Group | Not or | + + + Author + + + | Author | [facility] | + + + | Organization | [facility] | + + + | Address | Unknown | + + + | Phone | Unavailable | + + + Support + + + + + | Name | Relationship | Address | Phone | + + + + + | Margarito Owusu | ECON | [address] | | | | | [place] | | | | | [address] | | + + + + + Care Team Providers + +------+ + | Care Cloth Opener Hand Name | Role | Phone | + +------+ + | Maurice Zelaya MD | PCP | | + +------+ + Encounter Details +--------+ + + + + | Date | Type | Department | Care Team | Description | +--------+ + + + + | 08/09/ | H&P-Transcr | [facility] [address] | Ashley Omalley MD | History & Physical | | 2008 | ibed | E The | [facility] | | | | | [place] | [facility] [address] | | | | | [address] | [address] | | | | | | [place] [address] | | | | | | [phone] | | | | | | | [...] + + | 04/29/ | Diagnostic | Refueling Ramp Attendant | Marce Meyer | | | 2019 | Visit | | Eve Briseno [address] [facility] | | | | | | [address] | | | | | | [place] | | | | | | [address] | | +--------+ + + + + documented as of this encounter Visit Diagnoses Not on filedocumented in this encounter"
--- OUTSIDE RECORDS SUMMARY | ~2019-04-25 | XMS | Encounter Summary ---
Demographics + + + | Address | [address] | | | [place] [address] | + + + | Home Phone [...] + + + | Author | [facility] | + + + | Organization | [facility] | + + + | Address | Unknown | + + + | Phone | Unavailable | + + + Support + + + + + | Name | Relationship | Address | Phone | + + + + + | Margarito Owusu | ECON | [address] | | | | | [place] | | | | | [address] | | + + + + + Care Team Providers + +------+ + | Care Director Of Cath Lab Name | Role | Phone | + +------+ + | Jaison Chávez MD | PCP | | + +------+ + Reason for Visit +--------+ + | Reason | Comments | +--------+ + | Other | LVM 6/2 at 852am -Had CI sx 12/22 -jaw is hard to open up & head | | | hurts to the touch -lots of pain -Pls call back | +--------+ + Encounter Details +--------+ + + + + | Date | Type | Department | Care Team | Description | +--------+ + + + + | 12/27/ | Telephone | Otolaryngology | Willie Plunkett, | Other ([facility] 12/26 at | | 2013 | | Otology Services at | MD | 852am -Had CI sx | | | | [facility] [address] | | 12/22 -jaw is hard to | | | | [address] | | open up & head | | | | Mailcode: PV01 | | hurts to the touch | | | | [facility] | | -lots of pain -Pls | | | | [place], [place] | | call back ) | | | | [address] | | | | | | [phone] | | | +--------+ + + + [...] + + | 04/29/ | Diagnostic | Trim Mounter | Marce Meyer | | | 2018 | Visit | | Eve Briseno [address] | | | | | | [address] | | | | | | [place], [place] | | | | | | [address] | | +--------+ + + + + documented as of this encounter Visit Diagnoses Not on filedocumented in this encounter"
--- OUTSIDE RECORDS SUMMARY | ~2019-04-25 | XMS | Encounter Summary ---
Demographics + + + | Address | [address] | | | [place] [address] | + + + | Home Phone [...] Author + + + | Author | [facility] | + + + | Organization | [facility] | + + + | Address | Unknown | + + + | Phone | Unavailable | + + + Support + + + + + | Name | Relationship | Address | Phone | + + + + + | Margarito Owusu | ECON | [address] | | | | | [place] | | | | | [address] | | + + + + + Care Team Providers + +------+ + | Care Warehouse Packaging Supervisor Name | Role | Phone | + +------+ + | Ender Wagoner MD | PCP | | + +------+ + Reason for Visit + + + | Reason | Comments | + + + | Treatment Question | Regarding waiting list for new behind ear CI w/ Remote | + + + Encounter Details +--------+ + + + + | Date | Type | Department | Care Team | Description | +--------+ + + + + | 02/21/ | Telephone | Otolaryngology | Pascual Pace, | Treatment Question | | 2010 | | Cochlear Services | STEPHANIE [address]ell [address] | (Regarding waiting | | | | [address] | list for new behind | | | | Toya Spencer Mailcode: | [place], [place] | ear CI w/ Remote) | | | | [address] [facility] | [address] | | | | | [place], | | | | | | [place] [address] | | | | | | [phone] | | | +--------+ + + + [...] + + | 04/29/ | Diagnostic | Buttermaker | Marce Meyer | | | 2019 | Visit | | Eve Briseno [address] | | | | | | [address] | | | | | | [place] | | | | | | [address] | | +--------+ + + + + documented as of this encounter Visit Diagnoses Not on filedocumented in this encounter"
--- OUTSIDE RECORDS SUMMARY | ~2019-04-25 | XMS | Encounter Summary ---
Demographics + + + | Address | [address] | | | [place] [address] | + + + | Home Phone [...] [place] | | | | | [phone] | | + + + + + Care Team Providers + +------+ + | Care Boat Joiner Helper Name | Role | Phone | + +------+ + | Jaison Chávez MD | PCP | | + +------+ + Encounter Details +--------+ + + + + | Date | Type | Department | Care Team | Description | +--------+ + + + + | 11/26/ | Results | NON-[facility] EPIC | Omari [...] + + | 04/29/ | Diagnostic | Electrical Wirer | Marce Meyer | | | 2019 | Visit | | Eve Briseno [address] | | | | | | [address] | | | | | | [place], [place] | | | | | | [address] | | +--------+ + + + + documented as of this encounter Procedures + +--------+ + + + | Procedure Name | Priori | Date/Time | Associated Diagnosis | Comments | | | ty | | | | + +--------+ + + + | CBC WITH MANUAL | Routin | 11/26/2009 | | Results for this | | DIFFERENTIAL | e | 3:30 PM | | procedure are in the | | | | PDT | | results section. | + +--------+ + + + | COMPLETE METABOLIC | Routin | 11/26/2009 | | Results for this | | SET | e | 3:30 PM | | procedure are in the | | (NA,K,CL,CO2,BUN,CRE | | PDT | | results section. | | AT,GLUC,CA,AST,ALT,B | | | | | | TERRY TOTAL,ALK | | | | | | PHOS,ALB,PROT TOTAL) | | | | | + +--------+ + + + documented in this encounter Results COMPLETE METABOLIC SET (NA,K,CL,CO2,BUN,CREAT,GLUC,CA,AST,ALT,BILI TOTAL,ALK PHOS,ALB,PROT TOTAL) (11/26/2009 3:30 PM PDT) + + + + + + | Component | Value | Ref Range | Performed | Pathologist | | | | | At | Signature | + + + + + + | SODIUM, | 138 | 137 - 146 MEQ/L | [facility] [...] + + + + | GLUCOSE, | 80 | 70 - 105 MG/DL | [facility] | | | PLASMA | | | A MEDICAL | | | (LAB) | | | CENTER | | + + + + + + | BUN, PLASMA | 16 | 8 - 30 MG/DL | [facility] | | | (LAB) | | | A MEDICAL | | | | | | CENTER | | + + + + + + | CREATININE | 0.83 (L) | 0.9 - 1.3 MG/DL | [facility] | | | PLASMA | | | A MEDICAL | | | (LAB) | | | CENTER | | + + + + + + | BUN/CREATIN | 19 | 6 - 20 RATIO | [facility] | | | INE RATIO | | | A MEDICAL | | | | | | CENTER | | + + + + + + | CALCIUM, | 9.1 | 8.5 - 10.8 | [facility] | | | PLASMA | | MG/DL | A MEDICAL | | | (LAB) | | | CENTER | | + + + + + + | AST(SGOT) | 19 | 10 - 41 U/L | [facility] | | | | | | A MEDICAL | | | | | | CENTER | | + + + + + + | ALT (SGPT) | 22 | 7 - 51 U/L | [facility] | | | | | | A MEDICAL | | | | | | CENTER | | + + + + + + | ALK PHOS | 75 | 40 - 180 U/L | [facility] | | | | | | A MEDICAL | | | | | | CENTER | | + + + + + + | TOTAL | 6.4 (L) | 6.7 - 8.5 G/DL | [facility] | | | PROTEIN, | | | A MEDICAL | | | PLASMA | | | CENTER | | | (LAB) | | | | | + + + + + + | ALBUMIN, | 3.9 | 3.5 - 5.0 G/DL | [facility] | | | PLASMA | | | A MEDICAL | | | (LAB) | | | CENTER | | + + + + + + | BILIRUBIN | 0.6 | 0.2 - 1.6 MG/DL | [facility] | | | TOTAL | | | A MEDICAL | | | | | | CENTER | | + + + + + + | C-RCT | 6.25 (H) | 0.5 - 3.0 MG/L | [facility] | | | PRTN,HI | | | A MEDICAL | | | SENS | | | CENTER | | + + + + + + | ESTIMATED | >60.0 | >60 | [facility] | | | GFR | | | A MEDICAL | | | | | | CENTER | | + + + + + + | FASTING? | UNK | HR | [facility] | | | | | | A [...] | + + + + + | [facility] | And | [place] [address] | | | MEDICAL CENTER | Streets | | | + + + + + CBC WITH MANUAL DIFFERENTIAL (11/26/2009 3:30 PM PDT) + + + + + + | Component | Value | Ref Range | Performed | Pathologist | | | | | At | Signature | + + + + + + | WHITE BLOOD | 7.5 | 4.3 - 11.0 X10 | [facility] | | | CELL COUNT | | 3/ul | A MEDICAL | | | | | | CENTER | | + + + + + + | WBC, | WINE MANAGER | X10 3/uL | [facility] | | | ADJUSTED | | | A MEDICAL | | | | | | CENTER | | + + + + + + | HEMOGLOBIN | 11.1 (L) | 12.3 - 17.0 | [facility] | | | | | g/dL | A MEDICAL | | | | | | CENTER | | + + + + + + | RED BLOOD | 3.47 (L) | 4.7 - 6.1 X10 | [facility] | | | CELL COUNT | | 6/uL | A MEDICAL | | | | | | CENTER | | + + + + + + | HEMATOCRIT | 31.0 (L) | 40.0 - 54.0 % | [facility] | | | | | | A MEDICAL | | | | | | CENTER | | + + + + + + | MCV | 89.3 | 82 - 100 fl | [facility] | | | | | | A MEDICAL | | | | | | CENTER | | + + + + + + | MCH | 32.0 | 28.0 - 32.0 pg | [facility] | | | | | | A MEDICAL | | | | | | CENTER | | + + + + + + | MCHC | 35.8 | 32 - 36 g/dL | [facility] | | | | | | A MEDICAL | | | | | | CENTER | | + + + + + + | RDW | 15.1 (H) | 12 - 15 fL | [facility] | | | | | | A MEDICAL | | | | | | CENTER | | + + + + + + | PLATELET | 153 | 150 - 450 X10 3 | [facility] | | | COUNT | | | A MEDICAL | | | | | | CENTER | | + + + + + + | MPV | 7.7 (L) | 9.0 - 12.0 fL | [facility] | | | | | | A MEDICAL | | | | | | CENTER | | + + + + + + | NEUTROPHIL | 74.5 | 40 - 80 % | [facility] | | | % | | | A MEDICAL | | | | | | CENTER | | + + + + + + | LYMPHOCYTE | 13.9 (L) | 20 - 50 % | [facility] | | | % | | | A MEDICAL | | | | | | CENTER | | + + + + + + | EOS % | 4.9 | 0 - 5 % | [facility] | | | | | | A MEDICAL | | | | | | CENTER | | + + + + + + | BASO % | 0.4 | 0 - 1 % | [facility] [...] + + + | BANDS % | WINE MANAGER | 0 - 7 % | [facility] | | | | | | A MEDICAL | | | | | | CENTER | | + + + + + + | NEUTRO % | 68 | 40 - 70 % | [facility] | | | | | | A MEDICAL | | | | | | CENTER | | + + + + + + | LYMPHOCYTE | 19 | 10 - 45 % | [facility] | | | %, MANUAL | | | A MEDICAL | | | | | | CENTER | | + + + + + + | MONOCYTE%, | 2 | 2 - 10 % | [facility] [...] + + + + | BASOPHIL%, | 1 | 0 - 1 % | [facility] | | | MANUAL | | | A MEDICAL | | | | | | CENTER | | + + + + + + | REACTIVE | WINE MANAGER | 0.0 - 4.0 % | [facility] | | | LYMPHS % | | | A MEDICAL | | | | | | CENTER | | + + + + + + | BANDS % | 8 (H) | 0 - 7 % | [facility] | | | | | | A MEDICAL | | | | | | CENTER | | + + + + + + | METAMYELOCY | WINE MANAGER | 0 - 0 % | [facility] | | | BRANDON % | | | A MEDICAL | | | | | | CENTER | | + + + + + + | MYELOCYTES | WINE MANAGER | 0 - 0 % | [facility] | | | % | | | A MEDICAL | | | | | | CENTER | | + + + + + + | PROMYELOCYT | WINE MANAGER | 0 - 0 % | [facility] | | | ES % | | | A MEDICAL | | | | | | CENTER | | + + + + + + | BLASTS | WINE MANAGER | 0 - 0 % | [facility] [...] + + + + | RBC | ... | NORMAL | [facility] | | | [...] + + + + | NUCLEATED | WINE MANAGER | | [facility] | | | RBCS | | | A MEDICAL | | | | | | CENTER | | + + + + + + | GIANT PLT | WINE MANAGER | | [facility] | | | | | | A MEDICAL | | | | | | CENTER | | + + + + + + | SEDIMENTATI | 25 (H) | 1 - 15 MM/HR | [...] | [address] | [place] [address] | | | MEDICAL CENTER | Streets | | | + + + + + documented in this encounter Visit Diagnoses Not on filedocumented in this encounter"
--- OUTSIDE RECORDS SUMMARY | ~2019-04-25 | XMS | Encounter Summary ---
Demographics + + + | Address | [address] | | | [place] [address] | + + + | Home Phone | | + + + | Preferred Language | Unknown | + + + | Marital Status | Single | + + + | Anabaptism Affiliation | BAP | + + + | Race | White | + + + | Ethnic Group | Not or | + + + Author + + + | Author | [facility] | + + + | Organization | [facility] | + + + | Address | Unknown | + + + | Phone | Unavailable | + + + Support + + + + + | Name | Relationship | Address | Phone | + + + + + | Margarito Owusu | ECON | [address] | | | | | [place] | | | | | [address] | | + + + + + Care Team Providers + +------+ + | Care Intervention Manager Name | Role | Phone | + +------+ + | Jaison Chávez MD | PCP | | + +------+ + Encounter Details +--------+ + + + + | Date | Type | Department | Care Team | Description | +--------+ + + + + | 08/29/ | Results | NON-[facility] EPIC | Marcos Villanueva | | | 2009 | Only | Department | MD Lars [address] | | | | | | [facility] | | | | | | [place] [address] | | | | | | [phone] | | | | | | | [...] + + | 04/29/ | Diagnostic | Aircraft Systems Technician | Marce Meyer | | | 2019 | Visit | | Eve Briseno [address] | | | | | | [address] | | | | | | [place], [place] | | | | | | [address] | | +--------+ + + + + documented as of this encounter Procedures + +--------+ + + + | Procedure Name | Priori | Date/Time | Associated Diagnosis | Comments | | | ty | | | | + +--------+ + + + | CBC W/DIFF, REFLEX | Routin | 08/29/2009 | | Results for this | | | e | 10:50 PM | | procedure are in the | | | | PST | | results section. | + +--------+ + + + | TROPONIN I, PLASMA | Routin | 08/29/2009 | | Results for this | | | e | 10:50 PM | | procedure are in the | | | | PST | | results section. | + +--------+ + + + | BASIC METABOLIC SET | Routin | 08/29/2009 | | Results for this | | (NA, K, CL, TCO2, | e | 10:50 PM | | procedure are in the | | BUN, CR, GLU, CA) | | PST | | results section. | + +--------+ + + + | CHEST 2 VIEW [id number] | Routin | 08/29/2009 | | Results for this | | | e | 10:20 PM | | procedure are in the | | | | PST | | results section. | + +--------+ + + + | CHEST 2 VIEW [id number] | Routin | 08/29/2009 | | Results for this | | | e | 11:10 AM | | procedure are in the | | | | PST | | results section. | + +--------+ + + + documented in this encounter Results TROPONIN I, PLASMA (08/29/2009 10:50 PM PST) + + + + + [...] + + + + | SPECIMEN | PLASMA | | [facility] | | | TYPE | | | A MEDICAL | | [...] | + + + + + | [facility] | [address] | [place] [address] | | | [facility] [place] | Streets | | | + + + + + CBC W/PHUONG ORDONEZ (08/29/2009 10:50 PM PST) + + + + + + | Component | Value | Ref Range | Performed | Pathologist | | | | | At | Signature | + + + + + + | WHITE BLOOD | 9.6 | 4.3 - 11.0 X10 | [facility] | | | CELL COUNT | | 3/ul | A MEDICAL | | | | | | CENTER | | + + + + + + | HEMOGLOBIN | 12.8 | 12.3 - 17.0 | [facility] | | | | | g/dL | A MEDICAL | | | | | | CENTER | | + + + + + + | RED BLOOD | 4.44 (L) | 4.7 - 6.1 X10 | [facility] | | | CELL COUNT | | 6/uL | A MEDICAL | | | | | | CENTER | | + + + + + + | HEMATOCRIT | 37.5 (L) | 40.0 - 54.0 % | [facility] | | | | | | A MEDICAL | | | | | | CENTER | | + + + + + + | MCV | 84.3 | 82 - 100 fl | [facility] | | | | | | A MEDICAL | | | | | | CENTER | | + + + + + + | MCH | 28.7 | 28.0 - 32.0 pg | [facility] | | | | | | A MEDICAL | | | | | | CENTER | | + + + + + + | MCHC | 34.1 | 32 - 36 g/dL | [facility] | | | | | | A MEDICAL | | | | | | CENTER | | + + + + + + | RDW | 15.5 (H) | 12 - 15 fL | [facility] | | | | | | A MEDICAL | | | | | | CENTER | | + + + + + + | PLATELET | 156 | 150 - 450 X10 3 | [facility] | | | COUNT | | | A MEDICAL | | | | | | CENTER | | + + + + + + | MPV | 7.1 (L) | 9.0 - 12.0 fL | [facility] | | | | | | A MEDICAL | | | | | | CENTER | | + + + + + + | NEUTROPHIL | 70.2 | 40 - 80 % | [facility] | | | % | | | A MEDICAL | | | | | | CENTER | | + + + + + + | LYMPHOCYTE | 14.7 (L) | 20 - 50 % | [facility] | | | % | | | A MEDICAL | | | | | | CENTER | | + + + + + + | EOS % | 3.1 | 0 - 5 % | [facility] | | | | | | A MEDICAL | | | | | | CENTER | | + + + + + + | BASO % | 2.0 (H) | 0 - 1 % | [facility] | | | | | | A MEDICAL | | | | | | CENTER | | + + + + + + | MONOCYTE % | 10.0 | 2 - 10 % | [facility] | | | | | | A MEDICAL | | | | | | CENTER | | + + + + + + | BANDS % | FAGOT MAKER | 0 - 7 % | [facility] [...] | + + + + + | [facility] | | [place] [address] | | | [facility] | Streets | | | + + + + + BASIC METABOLIC SET (NA, K, CL, TCO2, BUN, CR, GLU, CA) (08/29/2009 10:50 PM PST) + + + + + + | Component | Value | Ref Range | Performed | Pathologist | | | | | At | Signature | + + + + + + | SODIUM, | 136 (L) | 137 - 146 MEQ/L | [facility] | | | PLASMA | | | A MEDICAL | | | (LAB) | | | CENTER | | + + + + + + | POTASSIUM, | 3.7 | 3.5 - 5.2 MEQ/L | [facility] | | | PLASMA | | | A MEDICAL | | | (LAB) | | | CENTER | | + + + + + + | CO2 | 29 (H) | 22 - 28 MEQ/L | [facility] [...] + + + | ANION GAP | 8.7 | 8 - 16 MEQ/L | [facility] | | | | | | A MEDICAL | | | | | | CENTER | | + + + + + + | GLUCOSE, | 65 (L) | 70 - 105 MG/DL | [facility] | | | PLASMA | | | A MEDICAL | | | (LAB) | | | CENTER | | + + + + + + | BUN, PLASMA | 13 | 8 - 30 MG/DL | [facility] | | | (LAB) | | | A MEDICAL | | | | | | CENTER | | + + + + + + | CREATININE | 0.63 (L) | 0.9 - 1.3 MG/DL | [facility] | | | PLASMA | | | A MEDICAL | | | (LAB) | | | CENTER | | + + + + + + | BUN/CREATIN | 20 | 6 - 20 RATIO | [facility] | | | INE RATIO | | | A MEDICAL | | | | | | CENTER | | + + + + + + | CALCIUM, | 9.0 | 8.5 - 10.8 | [facility] | | | PLASMA | | MG/DL | A MEDICAL | | | (LAB) | | | CENTER | | + + + + + + | CK | 524 (H)Comment: @A MB | 32 - 184 U/L | [facility] | | | | WILL REFLEX. | | A MEDICAL | | | | | | CENTER | | + + + + + + | CKMB | 11.6 (H) | 0.6 - 6.3 NG/ML | [facility] | | | | | | A MEDICAL | | | | | | CENTER | | + + + + + + | CKMB-INDEX | 2.2 | 0.0 - 4.0 % | [facility] [...] | [address] | [place] [address] | | | [facility] | [facility] | | | + + + + + CHEST 2 VIEW [id number] (08/29/2009 10:20 PM PST) + + | Specimen | + + | | + + + + + | Narrative | Performed At | + + + | Exam: Chest, two views. Indication: Chest pain. | [facility] | | Comparison: AP and lateral chest films done earlier today. | DEPARTMENT OF | | Findings: AP and lateral films were obtained. The patient is now | RADIOLOGY | | leaning forward. Heart size appears normal. Pulmonary vessels | | | are not congested. Lungs appear grossly clear. No evidence of | | | developing infiltrate, pulmonary edema, pneumothorax or pleural | | | effusion. Stable positioning of Port-A-Cath. Impression: No | | | acute cardiopulmonary changes. | | + + + + + | Procedure Note | + + | Interface, Radiology Results - 03/12/2015 1:57 PM PDT Exam: Chest, two views. | | Indication: Chest pain. | | Comparison: AP and lateral chest films done earlier today. | | Findings: AP and lateral films were obtained. The patient is now | | leaning forward. Heart size appears normal. Pulmonary vessels are | | not congested. Lungs appear grossly clear. No evidence of | | developing infiltrate, pulmonary edema, pneumothorax or pleural | | effusion. Stable positioning of Port-A-Cath. | | Impression: No acute cardiopulmonary changes. | + + + +---------+ + + | Performing | Address | City/State/Zipcode | Phone Number | | Organization | | | | + +---------+ + + | [facility] DEPARTMENT OF | | | | | RADIOLOGY | | | | + +---------+ + + CHEST 2 VIEW [id number] (08/29/2009 11:10 AM PST) + + | Specimen | + + | | + + + + + | Narrative | Performed At | + + + | EXAM: TWO VIEW CHEST X-RAY CLINICAL HISTORY: Status post tunneled | [facility] | | central line placement. COMPARISON: 09/22/2008 and 12/15/2008. | DEPARTMENT OF | | TECHNIQUE: PA and lateral views of the chest were obtained. FINDINGS: | RADIOLOGY | | There is no cardiomegaly, pneumothorax, effusion, CHF or | | | infiltrate. A left subclavian central venous line has been placed | | | with the tip within the proximal right atrium. There are mild | | | degenerative changes within the thoracic and upper lumbar spine. | | | IMPRESSION: Left subclavian central venous line with the tip within | | | the proximal right atrium. No pneumothorax. | | + + + + + | Procedure Note | + + | Interface, Radiology Results - 03/12/2015 1:57 PM PDT EXAM: TWO VIEW CHEST X-RAY | | CLINICAL HISTORY: Status post tunneled central line placement. | | COMPARISON: 09/22/2008 and 12/15/2008. | | TECHNIQUE: PA and lateral views of the chest were obtained. | | FINDINGS: There is no cardiomegaly, pneumothorax, effusion, CHF or | | infiltrate. A left subclavian central venous line has been placed | | with the tip within the proximal right atrium. There are mild | | degenerative changes within the thoracic and upper lumbar spine. | | IMPRESSION: Left subclavian central venous line with the tip | | within the proximal right atrium. No pneumothorax. | + + + +---------+ + + | Performing | Address | City/State/Zipcode | Phone Number | | Organization | | | | + +---------+ + + | [facility] DEPARTMENT OF | | | | | RADIOLOGY | | | | + +---------+ + + documented in this encounter Visit Diagnoses Not on filedocumented in this encounter"
--- OUTSIDE RECORDS SUMMARY | ~2019-04-25 | XMS | Encounter Summary ---
Demographics + + + | Address | [address] | | | [place] [address] | + + + | Home Phone | | + + + | Preferred Language | Unknown | + + + | Marital Status | Single | + + + | Christianity Affiliation | BAP | + + + | Race | White | + + + | Ethnic Group | Not or | + + + Author + + + | Organization | Unknown | + + + | Address | Unknown | + + + | Phone | Unavailable | + + + Support + + + + + | Name | Relationship | Address | Phone | + + + + + | Margarito Owusu | ECON | [address] | | | | | [place] | | | | | [address] | | + + + + + Care Team Providers + +------+ + | Care Dielectric Machine Operator Name | Role | Phone | + +------+ + | Deidre Card | PCP | | + +------+ + Encounter Details +--------+ + + + + | Date | Type | Department | Care Team | Description | +--------+ + + + + | 09/14/ | Procedure - | | Record, Operation | Operative Report | | 2001 | | | | | | | Transcribed | | | | +--------+ + + [...] + + | 04/29/ | Diagnostic | Pilot Control Operator Helper | Marce Meyer | | | 2019 | Visit | | Eve Briseno [address] | | | | | | [address] | | | | | | [place], [place] | | | | | | [address] | | +--------+ + + + + documented as of this encounter Procedures + +--------+ + + + | Procedure Name | Priori | Date/Time | Associated Diagnosis | Comments | | | ty | | | | + +--------+ + + + | OPERATION RECORD | | 09/14/2001 | | Results for this | | | | | | procedure are in the | | | | | | results section. | + +--------+ + + + documented in this encounter Results OPERATION RECORD (09/14/2001) + + | Transcriptions | + + | Interface, Telephone Sales Agent In - 04/10/2006 3:04 AM PDT | | [address] | | [place], [place] [address] | | [facility] RECORDMed Rec No.: | | [id number] Date: 09/14/2001Name: Edgar MarquezCAPE FEAR/[facility] HEALTHROSALIO SURGEON: | | aAmir Chan M.D.SITE RELIABILITY ENGINEER: | | Bayron Hirsch M.D.PREOPERATIVE DIAGNOSIS:Right-sided cholesteatoma.POSTOPERATIVE | | DIAGNOSIS:Right-sided cholesteatoma.PRINCIPAL PROCEDURES PERFORMED:1) Revision | | right-sided canal wall down mastoidectomy.2) Microdissection.3) Facial nerve | | monitoring times two hours.ANESTHESIA:General | | anesthesia.SPECIMENS:Cholesteatoma.COMPLICATIONS:There were no | | complications.INDICATIONS:The patient is a 35-year-old gentleman with a history | | of 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 The patient had subsequently developed profound left-sided sensoryneural | | hearing loss, etiology unknown. As of now, he is essentially deaf.He presented with | | right-sided oral drainage and was noted to have acholesteatoma. For this reason | | he comes to the operating room for electiverevision tympanomastoidectomy.OPERATIVE | | FINDINGS:There was cholesteatoma invaginating into the attic, epitympanum, | | andmastoid. No obvious evidence of labyrinthine fistula. The facial nervewas not | | dehiscent. The eardrum was left in place as were the ossicles.There was no evidence | | of a tegmen defect.DESCRIPTION OF PROCEDURE:The patient was taken to the operating | | room, placed supine on the operatingroom table. The patient was identified, anesthesia | | was administered andendotracheal tube was inserted. The facial nerve monitors were | | then placedand bipolar facial nerve monitoring was carried throughout the case. | | Asolution of 1 percent Xylocaine with 1:100,000 epinephrine was theninjected | | postauricularly. The patient was prepped and draped in thestandard surgical | | fashion.A #15 blade was used to incise postauricularly. Bovie cautery was used | | todissect down through the subcutaneous tissue, fat and muscle down to theperiosteum. | | Superiorly, the temporalis fascia was identified andMetzenbaum scissors were | | used to harvest a small fascial graft which wasset aside for later use.A Lempert | | elevator was used to reflect the periosteum anteriorly. Theposterior canal wall | | skin was then identified and a vertical incision wascreated to expose the tympanic | | membrane and mastoid cavity.The operating microscope was then brought in and | | microdissection wasperformed. The cholesteatoma was identified. A large cutting bur | | was usedwith the drill to take down bone in the mastoid. The dissection | | wascarried up to the tegmen and the sinodural angle was opened. Dissectionwas | | carried from external deep until the depth of the cholesteatomatouspocket was | | visualized.Micro-instruments were then used to dissect and remove the | | cholesteatomafrom the epitympanum and mastoid. The aforementioned findings were | | noted.After all the cholesteatoma was satisfactorily removed, the ear | | wasirrigated with lukewarm saline. The fascial graft was then set in placeover the | | epitympanum. The mastoid was then placed partially filled by theprevious skin from | | the mastoid cavity that was not involved with thecholesteatoma. Bacitracin | | covered pieces of Gelfoam were then insertedexternal to the tympanic membrane and | | into the mastoid cavity. The mastoidcavity was then filled with bacitracin ointment.The | | postauricular incision was closed then in a layered fashion.Interrupted 4-0 | | Vicryl subcutaneous sutures were used to close the skinfollowed by running locking | | 5-0 fast absorbing gut suture. A sterilecompressive dressing was then applied. | | The patient was extubated in theoperating room and taken to the recovery room in | | stable condition. Therewere no intraoperative complications.ATTENDING SURGEON'S | | ATTESTATION:Pursuant to Federal Medicare billing and coding regulations, I certify | | Yaz Chan M.D. was present and scrubbed for the entire case.Bayron | | Adelaida Hirsch M.D.NG:x63D: 09/14/2001T: | | 09/16/2001C: 09/23/2001 [id number] | |room table. The patient was identified, anesthesia was administered and | |endotracheal tube was inserted. The facial nerve monitors were then placed | |and bipolar facial nerve monitoring was carried throughout the case. A | |solution of 1 percent Xylocaine with 1:100,000 epinephrine was then | |injected postauricularly. The patient was prepped and draped in the | |standard surgical fashion. | | | |A #15 blade was used to incise postauricularly. Bovie cautery was used to | |dissect down through the subcutaneous tissue, fat and muscle down to the | |periosteum. Superiorly, the temporalis fascia was identified and | |Metzenbaum scissors were used to harvest a small fascial graft which was | |set aside for later use. | | | |A Lempert elevator was used to reflect the periosteum anteriorly. The | |posterior canal wall skin was then identified and a vertical incision was | |created to expose the tympanic membrane and mastoid cavity. | | | |The operating microscope was then brought in and microdissection was | |performed. The cholesteatoma was identified. A large cutting bur was used | |with the drill to take down bone in the mastoid. The dissection was | |carried up to the tegmen and the sinodural angle was opened. Dissection | |was carried from external deep until the depth of the cholesteatomatous | |pocket was visualized. | | | |Micro-instruments were then used to dissect and remove the cholesteatoma | |from the epitympanum and mastoid. The aforementioned findings were noted. | | | | | |After all the cholesteatoma was satisfactorily removed, the ear was | |irrigated with lukewarm saline. The fascial graft was then set in place | |over the epitympanum. The mastoid was then placed partially filled by the | |previous skin from the mastoid cavity that was not involved with the | |cholesteatoma. Bacitracin covered pieces of Gelfoam were then inserted | |external to the tympanic membrane and into the mastoid cavity. The mastoid | |cavity was then filled with bacitracin ointment. | | | |The postauricular incision was closed then in a layered fashion. | |Interrupted 4-0 Vicryl subcutaneous sutures were used to close the skin | |followed by running locking 5-0 fast absorbing gut suture. A sterile | |compressive dressing was then applied. The patient was extubated in the | |operating room and taken to the recovery room in stable condition. There | |were no intraoperative complications. | | | |ATTENDING SURGEON'S ATTESTATION: | |Pursuant to Federal Medicare billing and coding regulations, I certify that | |Aamir Chan M.D. was present and scrubbed for the entire case. | | | | | | | | | |Bayron Hirsch M.D. Aamir Chan M.D. | | | |NG:[id number] | | | | | |C: 09/23/2001 ds | | | | | |[id number] | + + documented in this encounter Visit Diagnoses Not on filedocumented in this encounter"
--- OUTSIDE RECORDS SUMMARY | ~2019-04-25 | XMS | Encounter Summary ---
Demographics + + + | Address | [address] | | | [place] [address] | + + + | Home Phone [...] Author + + + | Author | [facility] | + + + | Organization | [facility] | + + + | Address | Unknown | + + + | Phone | Unavailable | + + + Support + + + + + | Name | Relationship | Address | Phone | + + + + + | Margarito Owusu | ECON | [address] | | | | | [place] | | | | | [address] | | + + + + + Care Team Providers + +------+ + | Care Disability Coordinator Name | Role | Phone | + +------+ + | Jaison Chávez MD | PCP | | + +------+ + Encounter Details +--------+ + + + + | Date | Type | Department | Care Team | Description | +--------+ + + + + | 12/02/ | Documentati | Preoperative | Cindy Chávez | | | 2013 | on | Medicine Clinic at | A, RAILROAD FIRER [address] | | | | | MPV Floor Day | [address] | | | | | Stay [address] | [place], [place] | | | | | [address] | [address] | | | | | Mailcode: [id number] | [phone] | | | | | Paola Perez | | | | | | [address] [place], [place] | | | | | | [address] | | | | | | [phone] | | | +--------+ + + + [...] + + | 04/29/ | Diagnostic | Nursing Staff Development Coordinator | Marce Meyer | | | 2019 | Visit | | Eve Briseno [address] | | | | | | [address] | | | | | | [place] | | | | | | [address] | | +--------+ + + + + documented as of this encounter Visit Diagnoses Not on filedocumented in this encounter"
--- OUTSIDE RECORDS SUMMARY | ~2019-04-25 | XMS | Encounter Summary ---
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 | Diagnoses | Angelo Card Ent | | | | | Neural | Deidre A, | Cochlear Ppv | | | | | hearing | MD | [address] | | | | | loss, | [place] | [facility] | | | | | bilateral | INTERNAL | Rd Mailcode: | | | | | | MEDICINE | [address] | | | | | | [address] | Physician's | | | | | | [address] | Pavilion | | | | | | [address] | [place], [place] | | | | | | [place], | [address] | | | | | | [place] [address] | Phone: | | | | | | Phone: | [phone] | | | | | | [phone] | Fax: | | | | | | Fax: | [phone] | | | | | | [phone] | | +--------+--------+ + + + + Encounter Details +--------+---------+ + + + | Date | Type | Department | Care Team | Description | +--------+---------+ + + + | 05/12/ | Office | Otolaryngology | Pascual Pace, | Neural Hearing Loss, | | 2008 | Visit | Cochlear Services | Melodie [facility] [address] | Bilateral (Primary | | | | [address] | Dx) | | | | [address] Mailcode: | [place], [place] | | | | | [address] | [id number] | | | | | [place], | | | | | | [place] [address] | | | | | | [phone] | | | +--------+---------+ + + + [...] as of this encounter Progress Notes Melodie Mayfield, CCC-A - 05/12/2008 10:52 AM Chapis Harshal Marquez is a 42 year-old ma le who was 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 Mr. Marquez has experienced great difficulite s with the functioning of his 3G speech processor in the past due to moisture problems and h is insurance company has recently stated they will no longer authorize repair requests for t he device. To that end, Cochlear agreed to exchange his 3G with a Sprint device. He was se en today for the exchange. The patient's processor was connected to the [employer] for programming. His current 3G sett ings were converted to a Sprint map. These were then saved into the patient's processor as follows: P1 = Map 8 (converted 3G/Sprint settings, everyday) P2 = Map 7 (converted 3G/Sprint settings, noise) P3 = Map 7 P4 = Map 7 Device maintenance and operation were reviewed with the patient. We will order a stronger magnet and longer body cable for his next appointment and will inquire about provision of ba tteries and power pack. Mr. Marquez will return on 06/16/08 for his next follow up appointm ent. Melodie Herbert M.A., CCC-A Clinical & Rehabilitative Crab Meat Processor [facility] Cochlear Implant Program Departement of Otolaryngology/Head & Neck Surgery documented in t his encounter Plan of Treatment +--------+ + + + + | Date | Type | Specialty | Care Team | Description | +--------+ + + + + | 04/29/ | Diagnostic | Crab Meat Processor | Marce Meyer | | | 2019 | Visit | | K, vEe [address] | | | | | | [address] | | | | | | [place], [place] | | | | | | [address] | | +--------+ + + + + documented as of this encounter Visit Diagnoses + + | Diagnosis | + + | Neural hearing loss, bilateral - Primary | + + documented in this encounter"
--- OUTSIDE RECORDS SUMMARY | ~2019-04-25 | XMS | Encounter Summary ---
Demographics + + + | Address | [address] | | | [place] [address] | + + + | Home Phone [...] Author | [facility] | + + + | Organization | [facility] | + + + | Address | Unknown | + + + | Phone | Unavailable | + + + Support + + + + + | Name | Relationship | Address | Phone | + + + + + | Margarito Owusu | ECON | [address] | | | | | [place] | | | | | [address] | | + + + + + Care Team Providers + +------+ + | Care Revenue Inspector Name | Role | Phone | + +------+ + | Maurice Zelaya MD | PCP | | + +------+ + Encounter Details +--------+ + + + + | Date | Type | Department | Care Team | Description | +--------+ + + + + | 04/02/ | Ancillary | Registration [address] | Perry Napier MD | | | 2004 | Registratio | [address] | [address] | | | | n | [address] Mailcode: [id number] | [address] [place], | | | | | [place], [place] | [place] [address] | | | | | [address] | [phone] | | | | | [phone] | | | +--------+ + + + [...] + + | 04/29/ | Diagnostic | Photolithographer | Marce Meyer | | | 2019 | Visit | | Eve Briseno [address] [facility] | | | | | | [address] | | | | | | [place], [place] | | | | | | [address] | | +--------+ + + + + documented as of this encounter Visit Diagnoses Not on filedocumented in this encounter"
--- OUTSIDE RECORDS SUMMARY | ~2019-04-25 | XMS | Encounter Summary ---
Demographics + + + | Address | [address] | | | [place] [address] | + + + | Home Phone [...] [place] | | | | | [address] | | + + + + + Care Team Providers + +------+ + | Care Length Control Tester Name | Role | Phone | + +------+ + | Jaison Chávez MD | PCP | | + +------+ + Encounter Details +--------+ + + + + | Date | Type | Department | Care Team | Description | +--------+ + + + + | 10/30/ | Results | NON-[facility] EPIC | Tobias Eli, | | | 2008 | Only | Department | [address] | | | | | | [place] | | | | | | [address] | | | | | | [phone] | | | | | | | [...] + + | 04/29/ | Diagnostic | Learning Administrator | Marce Meyer | | | 2019 | Visit | | Eve Briseno [address] [facility] | | | | | | [address] | | | | | | [place], [place] | | | | | | [address] | | +--------+ + + + + documented as of this encounter Procedures + +--------+ + + + | Procedure Name | Priori | Date/Time | Associated Diagnosis | Comments | | | ty | | | | + +--------+ + + + | ABDOMEN AND PELVIS | Routin | 10/30/2008 | | Results for this | | WITH [id number] | e | 6:36 PM | | procedure are in the | | | | PDT | | results section. | + +--------+ + + + | SRUTHI MUNIZ ONLY | Routin | 10/30/2008 | | Results for this | | | e | 2:26 PM | | procedure are in the | | | | PDT | | results section. | + +--------+ + + + | ABDOMEN 2 VIEW PA | Routin | 10/30/2008 | | Results for this | | CHEST [id number] | e | 1:47 PM | | procedure are in the | | | | PDT | | results section. | + +--------+ + + + | CBC W/DIFF, REFLEX | Routin | 10/30/2008 | | Results for this | | | e | 12:00 AM | | procedure are in the | | | | PDT | | results section. | + +--------+ + + + | COMPLETE METABOLIC | Routin | 10/30/2008 | | Results for this | | SET | e | 12:00 AM | | procedure are in the | | (NA,K,CL,CO2,BUN,CRE | | PDT | | results section. | | AT,GLUC,CA,AST,ALT,B | | | | | | TERRY TOTAL,ALK | | | | | | PHOS,ALB,PROT TOTAL) | | | | | + +--------+ + + + documented in this encounter Results ABDOMEN AND PELVIS WITH [id number] (10/30/2008 6:36 PM PDT) + + | Specimen | + + | | + + + + + | Narrative | Performed At | + + + | CT SCAN OF THE ABDOMEN AND PELVIS WITH CONTRAST | [facility] | | INDICATION: Nausea. History of recent surgery. Rule out | DEPARTMENT OF | | abscess or obstruction. History of COPD, depression, restless legs | RADIOLOGY | | syndrome. TECHNIQUE: Oral and IV contrast enhanced axial images | | | were obtained from above the dome of the diaphragm to below the | | | symphysis pubis. Multiplanar coronal and sagittal reconstructions | | | were also generated. FINDINGS: Since the CT of August 11, 2008, | | | there is now a right lower quadrant abdominal colostomy, as well as | | | increased soft tissue abdominal wall densities, consistent with | | | scarring, and a surgical defect in the mid ventral abdomen. Oral | | | contrast enters the colostomy bag. There is no dilatation of the | | | small or large bowel that would indicate a bowel obstruction. The | | | descending and rectosigmoid colon is collapsed. The urinary | | | bladder wall appears thickened. The bladder is not | | | distended. No signs of abdominal or pelvic abscess or | | | ascites. There is mild fatty infiltration of the liver. No signs | | | of cholelithiasis or cholecystitis, or biliary ductal | | | dilatation. Normal pancreas, spleen, and adrenal glands. The | | | kidneys show no evidence of hydronephrosis or perinephric fluid | | | collection. The abdominal aorta is nonaneurysmal. Images of the | | | lung bases show no consolidation. There are coronary artery | | | calcifications. IMPRESSION: No evidence of abdominal or pelvic | | | abscess or bowel obstruction. There are postoperative changes. | | | [id number] | | + + + + + | Procedure Note | + + | Interface, Radiology Results - 03/16/2015 11:[address] SCAN OF THE ABDOMEN AND | | PELVIS WITH CONTRASTINDICATION: Nausea. History of recent surgery. Rule out abscess | | orobstruction. History of COPD, depression, restless legs syndrome.TECHNIQUE: Oral and | | IV contrast enhanced axial images were obtainedfrom above the dome of the diaphragm to | | below the symphysis pubis.Multiplanar coronal and sagittal reconstructions were also | | generated.FINDINGS: Since the CT of August 11, 2008, there is now a rightlower | | quadrant abdominal colostomy, as well as increased soft tissueabdominal wall densities, | | consistent with scarring, and a surgicaldefect in the mid ventral abdomen. Oral | | contrast enters the colostomybag. There is no dilatation of the small or large bowel | | that wouldindicate a bowel obstruction. The descending and rectosigmoid colonis | | collapsed. The urinary bladder wall appears thickened. Thebladder is not distended. | | No signs of abdominal or pelvic abscess orascites. There is mild fatty infiltration of | | the liver. No signs ofcholelithiasis or cholecystitis, or biliary ductal dilatation. | | Normalpancreas, spleen, and adrenal glands. The kidneys show no evidence | | ofhydronephrosis or perinephric fluid collection. The abdominal aortais nonaneurysmal. | | Images of the lung bases show no consolidation.There are coronary artery | | calcifications.IMPRESSION: No evidence of abdominal or pelvic abscess or | | bowelobstruction. There are postoperative changes.[id number] | |is nonaneurysmal. Images of the lung bases show no consolidation. | |There are coronary artery calcifications. | |IMPRESSION: No evidence of abdominal or pelvic abscess or bowel | |obstruction. There are postoperative changes. | |[id number] | + + + +---------+ + + | Performing | Address | City/State/Zipcode | Phone Number | | Organization | | | | + +---------+ + + | [facility]PARTMENT [facility] | | | | | RADIOLOGY | | | | + +---------+ + + SRUTHI MUNIZ ONLY (10/30/2008 2:26 PM PDT) + + + + [...] + + + + | SPECIFIC | 1.015 | 1.005 - 1.030 | [facility] | [...] | + + + + + | [facility] | [address] | [place] [address] | | | [facility] | [employer] | | | + + + + + ABDOMEN 2 VIEW PA CHEST [id number] (10/30/2008 1:47 PM PDT) + + | Specimen | + + | | + + + + + | Narrative | Performed At | + + + | ABDOMEN, TWO VIEWS WITH PA CHEST: INDICATION: Nausea and | [facility] | | vomiting. FINDINGS: Two views of the abdomen and a single view of | DEPARTMENT OF | | the chest were obtained and compared to the study of 08/07/08. No | RADIOLOGY | | free air or small bowel distention is noted. A moderate amount of | | | fecal material is seen in the right colon. No evidence of renal or | | | biliary calculus is seen. Surgical sutures and evidence of | | | ventral hernia repair are noted. A colostomy is seen in the right | | | abdomen. The single view of the chest demonstrates the lungs to be | | | clear and the heart normal in size. CONCLUSIONS: No evidence of | | | obstruction or perforation is seen. #[id number] | | + + + + + | Procedure Note | + + | Interface, Radiology Results - 03/16/2015 11:52 AM PDT ABDOMEN, TWO VIEWS WITH PA | | CHEST:INDICATION: Nausea and vomiting.FINDINGS: Two views of the abdomen and a single | | view of the chestwere obtained and compared to the study of 08/07/08. No free air | | orsmall bowel distention is noted. A moderate amount of fecal materialis seen in the | | right colon. No evidence of renal or biliary calculusis seen. Surgical sutures and | | evidence of ventral hernia repair arenoted. A colostomy is seen in the right abdomen. | | The single view ofthe chest demonstrates the lungs to be clear and the heart normal | | insize.CONCLUSIONS:No evidence of obstruction or perforation is seen.#[id number] | |the chest demonstrates the lungs to be clear and the heart normal in | |size. | |CONCLUSIONS: | |No evidence of obstruction or perforation is seen. | |#[id number] | + + + +---------+ + + | Performing | Address | City/State/Zipcode | Phone Number | | Organization | | | | + +---------+ + + | [facility] DEPARTMENT OF | | | | | RADIOLOGY | | | | + +---------+ + + CBC W/DIFF, REFLEX (10/30/2008 12:00 AM PDT) + + + + + + | Component | Value | Ref Range | Performed | Pathologist | | | | | At | Signature | + + + + + + | WHITE BLOOD | 10.5 | 4.3 - 11.0 X10 | [facility] | | | CELL COUNT | | 3/ul | A MEDICAL | | | | | | CENTER | | + + + + + + | HEMOGLOBIN | 13.5 | 12.0 - 16.0 | [facility] | | | | | g/dL | A MEDICAL | | | | | | CENTER | | + + + + + + | RED BLOOD | 4.81 | 4.7 - 6.1 X10 | [facility] [...] + + + + | MCV | 81.6 (L) | 82 - 100 fl | [facility] | | | | | | A MEDICAL | | | | | | CENTER | | + + + + + + | MCH | 28.1 | 28.0 - 32.0 pg | [facility] | | | | | | A MEDICAL | | | | | | CENTER | | + + + + + + | MCHC | 34.4 | 32 - 36 g/dL | [facility] | | | | | | A MEDICAL | | | | | | CENTER | | + + + + + + | RDW | 14.8 | 12 - 15 fL | [facility] | | | | | | A MEDICAL | | | | | | CENTER | | + + + + + + | PLATELET | 207 | 150 - 450 X10 3 | [...] + + + + | NEUTROPHIL | 79.4 | 40 - 80 % | [facility] | | | % | | | A MEDICAL | | | | | | CENTER | | + + + + + + | LYMPHOCYTE | 12.0 | 10 - 45 % | [facility] [...] + + + | BASO % | 0.7 | 0 - 1 % | [facility] | | | | | | A MEDICAL | | | | | | CENTER | | + + + + + + | MONOCYTE % | 6.4 | 2 - 10 % | [facility] | | | | | | A MEDICAL | | | | | | CENTER | | + + + + + + | BANDS % | PROJECT SPECIALIST | 0 - 7 % | [...] | + + + + + | [facility] | And | [place] [address] | | | MEDICAL CENTER | Streets | | | + + + + + COMPLETE METABOLIC SET (NA,K,CL,CO2,BUN,CREAT,GLUC,CA,AST,ALT,BILI TOTAL,ALK PHOS,ALB,PROT TOTAL) (10/30/2008 12:00 AM PDT) + + + + + + | Component | Value | Ref Range | Performed | Pathologist | | | | | At | Signature | + + + + + + | SODIUM, | 133 (L) | 137 - 146 MEQ/L | [facility] | | | PLASMA | | | A MEDICAL | | | (LAB) | | | CENTER | | + + + + + + | POTASSIUM, | 3.6 | 3.5 - 5.2 MEQ/L | [facility] [...] + + + + | CHLORIDE, | 97 (L) | 98 - 106 MEQ/L | [facility] | | | PLASMA | | | A MEDICAL | | | (LAB) | | | CENTER | | + + + + + + | GLUCOSE, | 107 (H) | 70 - 105 MG/DL | [facility] | | | PLASMA | | | A MEDICAL | | | (LAB) | | | CENTER | | + + + + + + | BUN, PLASMA | 10 | 8 - 30 MG/DL | [facility] | | | (LAB) | | | A MEDICAL | | | | | | CENTER | | + + + + + + | CREATININE | 0.70 (L) | 0.9 - 1.3 MG/DL | [facility] | | | PLASMA | | | A MEDICAL | | | (LAB) | | | CENTER | | + + + + + + | BUN/CREATIN | 14 | 6 - 20 RATIO | [facility] | | | INE RATIO | | | A MEDICAL | | | | | | CENTER | | + + + + + + | CALCIUM, | 10.3 | 8.5 - 10.8 | [facility] | | | PLASMA | | MG/DL | A MEDICAL | | | (LAB) | | | CENTER | | + + + + + + | AST(SGOT) | 30 | 10 - 41 U/L | [facility] | | | | | | A MEDICAL | | | | | | CENTER | | + + + + + + | ALT (SGPT) | 52 (H) | 7 - 51 U/L | [facility] | | | | | | A MEDICAL | | | | | | CENTER | | + + + + + + | ALK PHOS | 78 | 40 - 180 U/L | [facility] | | | | | | A MEDICAL | | | | | | CENTER | | + + + + + + | TOTAL | 8.0 | 6.7 - 8.5 G/DL | [facility] | | | PROTEIN, | | | A MEDICAL | | | PLASMA | | | CENTER | | | (LAB) | | | | | + + + + + + | ALBUMIN, | 4.7 | 3.5 - 5.0 G/DL | [facility] | | | PLASMA | | | A MEDICAL | | | (LAB) | | | CENTER | | + + + + + + | BILIRUBIN | 0.9 | 0.2 - 1.6 MG/DL | [facility] [...] | + + + + + | [facility] | And | [place] [address] | | | [facility] | [facility] | | | + + + + + documented in this encounter Visit Diagnoses Not on filedocumented in this encounter"
--- OUTSIDE RECORDS SUMMARY | ~2019-04-25 | XMS | Encounter Summary ---
Demographics + + + | Address | [address] | | | [place] [address] | + + + | Home Phone [...] | Margarito Owusu | ECON | [address] | | | | | [place] | | | | | [address] | | + + + + + Care Team Providers + +------+ + | Care Wild Life Photographer Name | Role | Phone | + +------+ + PCP | Unavailable | + +------+ + Encounter Details +--------+ + + + + | Date | Type | Department | Care Team | Description | +--------+ + + + + | 04/08/ | Office | | Note, Outpatient | Progress Note | | 2004 | Visit-Trans | | Clinic | | | | cribed [...] as of this encounter Progress Notes Interface, Air Technician In - 02/23/2005 7:49 AM PDT [id number] [facility] Date: 04/08/2004 Clinic: 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 He was scheduled once before for a cochlear implant; however, he was having significant respiratory problems, and his asthma was out of control, for that reason he was postponed. He comes back in today for preoperative evaluation for cochlear implant tomorrow, on the left ear. Again I went through PAR evaluation with him. He has no hearing, but he is an excellent lip reader. He has reviewed all the findings and articles with regards to cochlear implant, and he seems to have good knowledge of it. He is aware of all the risks and the benefits of the procedure. He is anxious to proceed, and his ENT examination was negative other than the hearing loss; he does have some wheezes in his chest, which is much less than he had in previous evaluations. At this time, I think he is an excellent candidate for cochlear implant. Aamir Chan M.D. TONY / MALORIE [id number] / [id number] / [id number] / [id number] documented i n this encounter Plan of Treatment +--------+ + + + + | Date | Type | Specialty | Care Team | Description | +--------+ + + + + | 04/29/ | Diagnostic | Rubber Process Hand | Marce Meyer | | | 2019 | Visit | | Eve Briseno [address] [facility] | | | | | | [address] | | | | | | [facility] [place] | | | | | | [address] | | +--------+ + + + + documented as of this encounter Visit Diagnoses Not on filedocumented in this encounter"
--- OUTSIDE RECORDS SUMMARY | ~2019-04-25 | XMS | Encounter Summary ---
Demographics + + + | Address | [address] | | | [place] [address] | + + + | Home Phone [...] [place] | | | | | [address] | | + + + + + Care Team Providers + +------+ + | Care Service Advisor Name | Role | Phone | + +------+ + | Jaison Chávez MD | PCP | | + +------+ + Encounter Details +--------+ + + + + | Date | Type | Department | Care Team | Description | +--------+ + + + + | 11/06/ | Results | NON-[facility] EPIC | Omari [...] + + | 04/29/ | Diagnostic | Sewer And Cutter Finger Buff Material | Marce Meyer | | | 2019 | Visit | | Eve Briseno [address] | | | | | | [address] | | | | | | [place], [place] | | | | | | [address] | | +--------+ + + + + documented as of this encounter Procedures + +--------+ + + + | Procedure Name | Priori | Date/Time | Associated Diagnosis | Comments | | | ty | | | | + +--------+ + + + | CBC WITH MANUAL | Routin | 11/06/2009 | | Results for this | | DIFFERENTIAL | e | 10:00 AM | | procedure are in the | | | | PDT | | results section. | + +--------+ + + + | COMPLETE METABOLIC | Routin | 11/06/2009 | | Results for this | | SET | e | 10:00 AM | | procedure are in the | | (NA,K,CL,CO2,BUN,CRE | | PDT | | results section. | | AT,GLUC,CA,AST,ALT,B | | | | | | TERRY TOTAL,ALK | | | | | | PHOS,ALB,PROT TOTAL) | | | | | + +--------+ + + + | C-REACTIVE PROTEIN | Routin | 11/06/2009 | | Results for this | | | e | 10:00 AM | | procedure are in the | | | | PDT | | results section. | + +--------+ + + + documented in this encounter Results C-REACTIVE PROTEIN (11/06/2009 10:00 AM PDT) + + + + + + | Component | Value | Ref Range | Performed | Pathologist | | | | | At | Signature | + + + + + + | C-REACTIVE | 0.45Comment: Test | <0.80 mg/dL | [facility] | | | PROTEIN | performed at [facility] | | [facility] | | | | [facility] | | | | [address] | | | | | | [address], | | | | | | [place] [address] | | | | | | : ASHLEY C SOL,MD | | | | + + + + + + + + | Specimen | + + | | + + + + + + + | Performing | Address | City/State/Zipcode | Phone Number | | Organization | | | | + + + + + | [facility] | [address] | [place] [address] | [phone] | | [facility] | | | | + + + + + | [facility] | | | | | [facility] | | | | + + + + + CBC WITH MANUAL DIFFERENTIAL (11/06/2009 10:00 AM PDT) + + + + + + | Component | Value | Ref Range | Performed | Pathologist | | | | | At | Signature | + + + + + + | WHITE BLOOD | 7.7 | 4.3 - 11.0 X10 | [facility] | | | CELL COUNT | | 3/ul | A MEDICAL | | | | | | CENTER | | + + + + + + | WBC, | VENETIAN BLIND INSTALLER | X10 3/uL | [facility] | | | ADJUSTED | | | A MEDICAL | | | | | | CENTER | | + + + + + + | HEMOGLOBIN | 12.3 | 12.3 - 17.0 | [facility] | | | | | g/dL | A MEDICAL | | | | | | CENTER | | + + + + + + | RED BLOOD | 3.94 (L) | 4.7 - 6.1 X10 | [facility] | | | CELL COUNT | | 6/uL | A MEDICAL | | | | | | CENTER | | + + + + + + | HEMATOCRIT | 34.0 (L) | 40.0 - 54.0 % | [facility] | | | | | | A MEDICAL | | | | | | CENTER | | + + + + + + | MCV | 86.1 | 82 - 100 fl | [facility] | | | | | | A MEDICAL | | | | | | CENTER | | + + + + + + | MCH | 31.1 | 28.0 - 32.0 pg | [facility] | | | | | | A MEDICAL | | | | | | CENTER | | + + + + + + | MCHC | 36.1 (H) | 32 - 36 g/dL | [facility] [...] + + + + | PLATELET | 170 | 150 - 450 X10 3 | [...] + + + + | NEUTROPHIL | 79.2 | 40 - 80 % | [facility] | | | % | | | A MEDICAL | | | | | | CENTER | | + + + + + + | LYMPHOCYTE | 11.3 (L) | 20 - 50 % | [facility] | | | % | | | A MEDICAL | | | | | | CENTER | | + + + + + + | EOS % | 2.4 | 0 - 5 % | [facility] [...] + + + | MONOCYTE % | 6.7 | 2 - 10 % | [facility] | | | | | | A MEDICAL | | | | | | CENTER | | + + + + + + | BANDS % | VENETIAN BLIND INSTALLER | 0 - 7 % | [facility] | | | | | | A MEDICAL | | | | | | CENTER | | + + + + + + | NEUTRO % | 80 (H) | 40 - 70 % | [facility] | | | | | | A MEDICAL | | | | | | CENTER | | + + + + + + | LYMPHOCYTE | 8 (L) | 10 - 45 % | [facility] [...] + + + + | EOSINOPHIL% | 3 | 0 - 5 % | [facility] | | | , MANUAL | | | A MEDICAL | | | | | | CENTER | | + + + + + + | BASOPHIL%, | VENETIAN BLIND INSTALLER | 0 - 1 % | [facility] | | | MANUAL | | | A MEDICAL | | | | | | CENTER | | + + + + + + | REACTIVE | VENETIAN BLIND INSTALLER | 0.0 - 4.0 % | [facility] | | | LYMPHS % | | | A MEDICAL | | | | | | CENTER | | + + + + + + | BANDS % | 1 | 0 - 7 % | [facility] | | | | | | A MEDICAL | | | | | | CENTER | | + + + + + + | METAMYELOCY | VENETIAN BLIND INSTALLER | 0 - 0 % | [facility] | | | BRANDON % | | | A MEDICAL | | | | | | CENTER | | + + + + + + | MYELOCYTES | VENETIAN BLIND INSTALLER | 0 - 0 % | [facility] | | | % | | | A MEDICAL | | | | | | CENTER | | + + + + + + | PROMYELOCYT | VENETIAN BLIND INSTALLER | 0 - 0 % | [facility] | | | ES % | | | A MEDICAL | | | | | | CENTER | | + + + + + + | BLASTS | VENETIAN BLIND INSTALLER | 0 - 0 % | [facility] [...] + + + + | RBC | VENETIAN BLIND INSTALLER | NORMAL | [facility] | | | MORPHOLOGY | | | A MEDICAL | | | | | | CENTER | | + + + + + + | WBC | VENETIAN BLIND INSTALLER | NORMAL | [facility] | | | MORPHOLOGY | | | A MEDICAL | | | | | | CENTER | | + + + + + + | PLATELET | VENETIAN BLIND INSTALLER | NORMAL | [facility] | | | MORPHOLOGY | | | A MEDICAL | | | | | | CENTER | | + + + + + + | NUCLEATED | VENETIAN BLIND INSTALLER | | [facility] | | | RBCS | | | A MEDICAL | | | | | | CENTER | | + + + + + + | GIANT PLT | VENETIAN BLIND INSTALLER | | [facility] | | | | | | A MEDICAL | | | | | | CENTER | | + + + + + + | SEDIMENTATI | 28 (H) | 1 - 15 MM/HR | [...] | + + + + + | [facility] | And | [place] [address] | | | [facility] | [place] | | | + + + + + COMPLETE METABOLIC SET (NA,K,CL,CO2,BUN,CREAT,GLUC,CA,AST,ALT,BILI TOTAL,ALK PHOS,ALB,PROT TOTAL) (11/06/2009 10:00 AM PDT) + +---------+ + + + | Component | Value | Ref Range | Performed | Pathologist | | | | | At | Signature | + +---------+ + + + | SODIUM, | 135 (L) | 137 - 146 MEQ/L | [facility] | | | PLASMA | | | A MEDICAL | | | (LAB) | | | CENTER | | + +---------+ + + + | POTASSIUM, | 4.3 | 3.5 - 5.2 MEQ/L | [facility] | | | PLASMA | | | A MEDICAL | | | (LAB) | | | CENTER | | + +---------+ + + + | CO2 | 26 | 22 - 28 MEQ/L | [facility] | | | | | | A MEDICAL | | | | | | CENTER | | + +---------+ + + + | CHLORIDE, | 97 (L) | 98 - 106 MEQ/L | [facility] | | | PLASMA | | | A MEDICAL | | | (LAB) | | | CENTER | | + +---------+ + + + | GLUCOSE, | 108 (H) | 70 - 105 MG/DL | [facility] | | | PLASMA | | | A MEDICAL | | | (LAB) | | | CENTER | | + +---------+ + + + | BUN, PLASMA | 27 | 8 - 30 MG/DL | [facility] | | | (LAB) | | | A MEDICAL | | | | | | CENTER | | + +---------+ + + + | CREATININE | 1.12 | 0.9 - 1.3 MG/DL | [facility] | | | PLASMA | | | A MEDICAL | | | (LAB) | | | CENTER | | + +---------+ + + + | BUN/CREATIN | 24 (H) | 6 - 20 RATIO | [facility] | | | INE RATIO | | | A MEDICAL | | | | | | CENTER | | + +---------+ + + + | CALCIUM, | 10.1 | 8.5 - 10.8 | [facility] | | | PLASMA | | MG/DL | A MEDICAL | | | (LAB) | | | CENTER | | + +---------+ + + + | AST(SGOT) | 28 | 10 - 41 U/L | [facility] | | | | | | A MEDICAL | | | | | | CENTER | | + +---------+ + + + | ALT (SGPT) | 28 | 7 - 51 U/L | [facility] | | | | | | A MEDICAL | | | | | | CENTER | | + +---------+ + + + | ALK PHOS | 71 | 40 - 180 U/L | [facility] | | | | | | A MEDICAL | | | | | | CENTER | | + +---------+ + + + | TOTAL | 6.9 | 6.7 - 8.5 G/DL | [facility] | | | PROTEIN, | | | A MEDICAL | | | PLASMA | | | CENTER | | | (LAB) | | | | | + +---------+ + + + | ALBUMIN, | 4.3 | 3.5 - 5.0 G/DL | [facility] | | | PLASMA | | | A MEDICAL | | | (LAB) | | | CENTER | | + +---------+ + + + | BILIRUBIN | 0.5 | 0.2 - 1.6 MG/DL | [facility] | | | TOTAL | | | A MEDICAL | | | | | | CENTER | | + +---------+ + + + | ESTIMATED | >60.0 | >60 | [facility] | | | GFR | | | A MEDICAL | | | | | | CENTER | | + +---------+ + + + | FASTING? | UNK [...] | + + + + + | [facility] | [address] | [place] [address] | | | MEDICAL [place] | Streets | | | + + + + + documented in this encounter Visit Diagnoses Not on filedocumented in this encounter"
--- OUTSIDE RECORDS SUMMARY | ~2019-04-25 | XMS | Encounter Summary ---
Demographics + + + | Address | [address] | | | [place] [address] | + + + | Home Phone | | + + + | Preferred Language | Unknown | + + + | Marital Status | Single | + + + | Zoroastrianism Affiliation | BAP | + + + | Race | White | + + + | Ethnic Group | Not or | + + + Author + + + | Author | [facility] | + + + | Organization | [facility] | + + + | Address | Unknown | + + + | Phone | Unavailable | + + + Support + + + + + | Name | Relationship | Address | Phone | + + + + + | Margarito Owusu | ECON | [address] | | | | | [place] | | | | | [phone] | | + + + + + Care Team Providers + +------+ + | Care Three Dimensional Map Modeler Name | Role | Phone | + +------+ + | Jaison Chávez MD | PCP | | + +------+ + Encounter Details +--------+ + + + + | Date | Type | Department | Care Team | Description | +--------+ + + + + | 08/22/ | Documentati | Otolaryngology | Mahnaz Chávez, | | | 2013 | on | Cochlear Services | [facility] [address] | | | | | [address] | [address] | | | | | [place] Mailcode: | [place], [place] | | | | | [address] [facility] | [phone] | | | | | [place], | | | | | | [place] [address] | | | | | | [phone] | | | +--------+ + + + [...] + + | 04/29/ | Diagnostic | Practice Administrator | Marce Meyer | | | 2019 | Visit | | Eve Briseno [address] | | | | | | [address] | | | | | | [place], [place] | | | | | | [address] | | +--------+ + + + + documented as of this encounter Visit Diagnoses Not on filedocumented in this encounter"
--- OUTSIDE RECORDS SUMMARY | ~2019-04-25 | XMS | Encounter Summary ---
Demographics + + + | Address | [address] | | | [place] [address] | + + + | Home Phone | | + + + | Preferred Language | Unknown | + + + | Marital Status | Single | + + + | Caodaism Affiliation | BAP | + + + [...] [place] | | | | | [address] | | + + + + + Care Team Providers + +------+ + | Care Rn Observation Name | Role | Phone | + [...] WALL DOWN, | | | | Rd Till[address] | | MEATOPLASTY, NERVE | | | | [facility] | | MONITORING | | | | Surgery Admitting | | | | | | Desk Located on the | | | | | | 4th floor, Room | | | | | | [address] [place] [address] | | | | | | [address] | | | +--------+---------+ + + + [...] + + | 04/29/ | Diagnostic | Corporate Development Intern | Marce Meyer | | | 2019 | Visit | | Eve Briseno [address] [facility] | | | | | | [address] | | | | | | [place], [place] | | | | | | [address] | | +--------+ + + + + [...] LAUGHLIN | 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
--- OUTSIDE RECORDS SUMMARY | ~2019-04-25 | XMS | Encounter Summary ---
Demographics + + + | Address | [address] | | | [place] [address] | + + + | Home Phone | | + + + | Preferred Language | Unknown | + + + | Marital Status | Single | + + + | Temple Affiliation | BAP | + + + | Race | White | + + + | Ethnic Group | Not or | + + + Author + + + | Author | [facility] | + + + | Organization | [facility] | + + + | Address | Unknown | + + + | Phone | Unavailable | + + + Support + + + + + | Name | Relationship | Address | Phone | + + + + + | Margarito Owusu | ECON | [address] | | | | | [place] | | | | | [address] | | + + + + + Care Team Providers + +------+ + | Care Coffin Maker Name | Role | Phone | + +------+ + | Cee Triana MD | PCP | Unavailable | + +------+ + Encounter Details +--------+---------+ + + + | Date | Type | Department | Care Team | Description | +--------+---------+ + + + | 09/08/ | Office | Digestive Health | Ayana Butler W, | S/P repair of | | 2012 | Visit | [place] at [facility] [address] | [address] | recurrent ventral | | | | [address] | [place], [place] | hernia (Primary Dx) | | | | Mailcode: [place] | [address] | | | | | for Health and | [phone] | | | | | [facility] [address] | | | | | | [place], [place] | | | | | | [address] | | | | | | [phone] | | | +--------+---------+ + + + [...] + + + | Blood Pressure | 132/78 | 09/08/2012 3:14 PM | | | | | PST | | + + + + + | Pulse | 96 | 09/08/2012 3:14 PM | | | | | PST | | + + + + + | Temperature | 36.7 C (98 F) | 09/08/2012 3:14 PM | | | | | PST | | + + + + + | Respiratory Rate | 20 | 09/08/2012 3:14 PM | | | | | PST | | + + + + + | Oxygen Saturation | 96% | 09/08/2012 3:14 PM | | | | | PST [...] encounter Progress Notes Ayana Butler MD - 09/08/2012 3:50 PM PST09/08/2012 [facility]- follow up Edgar Marquez presents 2 1/2 weeks status post open redo VHR with mesh. Current concerns include: pain at EDEN site. Burning - does not radiate. Worse when drain a ccidentally gets pulled. Incision healing well- would like berto out. Pt denies: fever, chills, nausea, vomiting. Normal BMs. EDEN draining serosang fluid 60ml/d ay Pain controlled by: 3oxy/day Physical exam: BP 132/78 | Pulse 96 | Temp (Src) 36.7 C (98 F) (Oral) | RR 20 | SpO2 96% General appearance: healthy, alert and cooperative Lungs: expiratory wheezes GI: Soft, protruberant. Incision well healing with berto, no erythema or drainage. EDEN i n place with serosang drainage. Trace surrounding erythema- no purulence or indurration. No hernia on exam with cough. Assessment: patient is a 46 yo man healing well following open VHR Plan: 1. EDEN to remain until output is 30 mL or less per 24hrs- then OK to remove- he may return for drain pull or have his PCP perform. 2. Oxy refill provided 3. Patient will follow up in 2 wks. 4. Continue lifting restrictions for a total of 4wks post op. 5. Berto removed and steri's placed documented in this en counter Plan of Treatment +--------+ + + + + | Date | Type | Specialty | Care Team | Description | +--------+ + + + + | 04/29/ | Diagnostic | Acting Section Chief | Marce Meyer | | | 2018 | Visit | | K, Eve [address] [facility] | | | | | | [address] | | | | | | [facility] | | | | | | [address] | | +--------+ + + + + documented as of this encounter Visit Diagnoses + + | Diagnosis | + + | S/P repair of recurrent ventral hernia - Primary Other postprocedural status | + + documented in this encounter"
--- OUTSIDE RECORDS SUMMARY | ~2019-04-25 | XMS | Encounter Summary ---
Demographics + + + | Address | [address] | | | [place] [address] | + + + | Home Phone | | + + + | Preferred Language | Unknown | + + + | Marital Status | Single | + + + | Restorationism Affiliation | BAP | + + + [...] [place] | | | | | [address] | | + + + + + Care Team Providers + +------+ + | Care Floor Care Technician Name | Role | Phone | + +------+ + | Jaison Chávez MD | PCP | | + +------+ + Reason for Visit +--------+ + | Reason | Comments | +--------+ + | Other | will have w/c by robert lira specify which provider he needs to | | | see in clinic | +--------+ + Encounter Details +--------+ + + + + | Date | Type | Department | Care Team | Description | +--------+ + + + + | 02/16/ | Telephone | Otolaryngology | Willie Plunkett, | Other (will have w/c | | 2013 | | Otology Services at | MD | by robert lira | | | | [facility] [address] [facility] | | specify which | | | | [address] | | provider he needs to | | | | Mailcode: PV01 | | see in clinic ) | | | | [facility] | | | | | | [place], [place] | | | | | | [address] | | | | | | [phone] | | | +--------+ + + + [...] + + | 04/29/ | Diagnostic | Carding Supervisor | Marce Meyer | | | 2019 | Visit | | Eve Briseno [address] [facility] | | | | | | [address] | | | | | | [facility] [place] | | | | | | [address] | | +--------+ + + + + documented as of this encounter Visit Diagnoses Not on filedocumented in this encounter"
--- OUTSIDE RECORDS SUMMARY | ~2019-04-25 | XMS | Encounter Summary ---
Demographics + + + | Address | [address] | | | [place] [address] | + + + | Home Phone | | + + + | Preferred Language | Unknown | + + + | Marital Status | Single | + + + | Alevism Affiliation | BAP | + + + | Race | White | + + + | Ethnic Group | Not or | + + + Author + + + | Author | [facility] | + + + | Organization | [facility] | + + + | Address | Unknown | + + + | Phone | Unavailable | + + + Support + + + + + | Name | Relationship | Address | Phone | + + + + + | Margarito Owusu | ECON | [address] | | | | | [place] | | | | | [address] | | + + + + + Care Team Providers + +------+ + | Care Upholsterer Helper Name | Role | Phone | + +------+ + | Maurice Zelaya MD | PCP | | + +------+ + Encounter Details +--------+ + + + + | Date | Type | Department | Care Team | Description | +--------+ + + + + | 08/29/ | H&P-Transcr | [facility] | Marcos Villanueva | History & Physical | | 2009 | ibed | E The | MD Lars [address] | | | | | [place] | [address] | | | | | [address] | [place] [address] | | | | | | [phone] | | | | | | | [...] + + | 04/29/ | Diagnostic | Bullet Swaging Machine Operator | Marce Meyer | | | 2019 | Visit | | Eve Briseno [address] [facility] | | | | | | [address] | | | | | | [place] | | | | | | [address] | | +--------+ + + + + documented as of this encounter Visit Diagnoses Not on filedocumented in this encounter"
--- OUTSIDE RECORDS SUMMARY | ~2019-04-25 | XMS | Encounter Summary ---
Demographics + + + | Address | [address] | | | [place] [address] | + + + | Home Phone | | + + + | Preferred Language | Unknown | + + + | Marital Status | Single | + + + | Methodist Affiliation | BAP | + + + | Race | White | + + + | Ethnic Group | Not or | + + + Author + + + | Author | [facility] | + + + | Organization | [facility] | + + + | Address | Unknown | + + + | Phone | Unavailable | + + + Support + + + + + | Name | Relationship | Address | Phone | + + + + + | Margarito Owusu | ECON | [address] | | | | | [place] | | | | | [address] | | + + + + + Care Team Providers + +------+ + | Care Weigh Tank Operator Name | Role | Phone | [...] ventral | Ayana Jovel MD | [facility] [address] | | | | | hernia | [address] | | | | | repair | Ave | [address] | | | | | Procedures | [place], [place] | Mailcode: | | | | | CT ABDOMEN & | [address] | [address] [facility] | | | | | PELVIS W IV | Phone: | Hospital | | | | | CONTRAST | [phone] | [place], [place] | | | | | [address] | Fax: | [address] | | | | | | [phone] | Phone: | | | | | | | [phone] | | | | | | | Fax: | | | | | | | [phone] | +--------+--------+ + + + + Reason [...] | | | | | | | [address] | | | | | | | Ave | | | | | | | Mailcode: | | | | | | | [facility] | | | | | [facility] and | | | | | | | Healing, | | | | | | | [address] | | | | | | | [place], [place] | | | | | | | [address] | | | | | | | Phone: | | | | | | | [phone] | | | | | | | Fax: | | | | | | | [phone] | +--------+--------+ + + + + Encounter [...] | | | [address] | [facility] [place] | | | | | Mailcode: [place] | [address] | | | | | for Health and | [phone] | | | | | Healing, [address] | | | | | | [place], [place] | | | | | | [address] | | | | | | [phone] | | | +--------+---------+ + + + [...] or any other concern. Ayana Butler MD [facility] Division of General and Gastrointestinal Surgery Department of Surgery documented in this en counter Plan of Treatment +--------+ + + + + | Date | Type | Specialty | Care Team | Description | +--------+ + + + + | 04/29/ | Diagnostic | Graphics Artist | Marce Meyer | | | 2019 | Visit | | K, AuD [address] [facility] | | | | | | [address] | | | | | | [place], [place] | | | | | | [address] | | +--------+ + + + + [...] | | + +---------+ + + | [facility] DEPARTMENT OF | | | | | RADIOLOGY | | | | + +---------+ + + documented in this encounter Visit Diagnoses + + | Diagnosis | + + | H/O ventral hernia repair - Primary Personal history of surgery to other organs | + + documented in this encounter
--- OUTSIDE RECORDS SUMMARY | ~2019-04-25 | XMS | Encounter Summary ---
Demographics + + + | Address | [address] | | | [place] [address] | + + + | Home Phone [...] [place] | | | | | [address] | | + + + + + Care Team Providers + +------+ + | Care Laborer Name | Role | Phone | + +------+ + | Jaison Chávez MD | PCP | | + +------+ + Reason for Visit + + + | Reason | Comments | + + + | Prescription | Patient called to report that ciprofloxacin rx was not written | | | for 3 drops, and will not be covered by his insurance until | | | corrected. | + + + Encounter Details +--------+ + + + + | Date | Type | Department | Care Team | Description | +--------+ + + + + | 01/18/ | Telephone | Otolaryngology | Willie Plunkett, | Prescription | | 2013 | | Otology Services at | MD | (Patient called to | | | | [facility] [address] | | report that | | | | [address] | | ciprofloxacin rx was | | | | Mailcode: PV01 | | not written for 3 | | | | [facility] | | drops, and will not | | | | [place], [place] | | be covered by his | | | | [address] | | insurance until | | | | [phone] | | corrected. ) | +--------+ + + + + Social [...] + + | 04/29/ | Diagnostic | Interior Design Program Chair | Marce Meyer | | | 2019 | Visit | | Eve Briseno [address] | | | | | | [address] | | | | | | [place], [place] | | | | | | [address] | | +--------+ + + + + documented as of this encounter Visit Diagnoses Not on filedocumented in this encounter"
--- OUTSIDE RECORDS SUMMARY | ~2019-04-25 | XMS | Encounter Summary ---
Demographics + + + | Address | [address] | | | [place] [address] | + + + | Home Phone [...] [place] | | | | | [address] | | + + + + + Care Team Providers + +------+ + | Care Endorsement Clerk Name | Role | Phone | + [...] | | | | | Tj Bruce [facility] | | | | | | | Hospital | | | | | | | [place], [place] | | | | | | | [address] | | | | | | | Phone: | | | | | | | [phone] | | | | | | | Fax: | | | | | | | [phone] | +--------+--------+ + + + + Encounter Details +--------+ + + + + | Date | Type | Department | Care Team | Description | +--------+ + + + + | 12/03/ | Hospital | [address] | [place], | | | 2010 - | Encounter | [address] | MD Nancy [address] | | | | | [address] [place] [address] | [address] | | | 12/06/ | | [place], [place] | [place] | | | 2010 | | [address] | [address] | | | | | [phone] | [phone] | | | | | | | [...] Ender Wagoner. - I spoke with Dr. Wagoner on 12/05, he will follow up with patient within 1 week and evelin ck weekly CBC/BMP - Continue Ciprodex Otic drops and Acetic acid Otic drops - F/U in ENT clinic in 1 to 2 weeks, patient indicated he would like to follow up with Dr. James Sanchez of [place], ENT team notified and would be happy [...] hours. Medication to be admixed per infusion [facility] standard policy and/or procedure., Disp-84 Dose(s), R-0, [...] Reason for Stopping: NEOMY SULF/POLYMYX B SULF/HC ([id number]) Otic Solution Comments: Reason for Stopping: ofloxacin [...] and Clinic: ENT Appointment: Please call the [facility] ENT clinic at [phone] to make an appointment to be seen in 1 to 2 weeks. Alternatively, if you do not wish to be seen in the [facility] ENT clinic, y rut may follow up with Dr. James Sanchez in [place] who you already know. I have passed this information to our ENT doctors so that they can update Dr. Sanchez with your latest cat scan results. Please call his office to make an appointment for 1 to 2 weeks ([phone]) Other Discharge Orders and Instructions You will need to have your blood drawn every week, Dr. Wagoner will be checking on your l abs [...] gone over with patient by home care territory sales representative Personal Effects/Medications: Admit belongings list verified [...] related to the medicine you are taking. [facility] Patient Information [employer]. Swimmer's Ear (Otitis Externa) You have been [...] you are taking. [employer] Patient Information [employer]. documented in this encounter Progress Notes Nancy [...] planning to follow up with ENT in [place]. Please refer to the resident discharge summary for additional details. I spent 40 min in this discharge of which >50% spent in coordination of care. Nancy Romero MD [facility] Medicine [facility] DEPARTMENT: Hosp- [id number] Place of Service: - Date of Service: 12/06/2010 CSN: [id number] Modifiers: Resident Involved: Yes CPT: 06911 Discharge Management > 30 minute Cong Cueto [...] otology clinic i n 1-2 weeks, call [phone] for appointment. Hector Read MD PhD [facility] Dept. of Otolaryngology Nancy Chou MD - [...] chiquita e mgmt, ENT. Nancy Romero MD [facility] Division of Hospital Medicine [phone] [facility] DEPARTMENT: Hosp- [id number] Place of Service: - Date of Service: 12/05/2010 CSN: [id number] Modifiers:GC Resident Involved: Yes Suggested CPT: 04615 Subsequent Visit Detailed/High complexity 35 min Cong [...] continue to follow. Hector Read MD PhD [facility] Dept. of Otolaryngology Edilberto Back MD - [...] Edilberto Daigle MD Internal Medicine, PGY-2 Pager: [phone] illem Holguin - 011 8:55 AM PDT [...] air-filled loops suggestive of ileus. SUBJECTIVE: Mr. Edgar Marquez says that he feels "bad." He [...] gas. Attending Radiologists: Stefany Hebert M.D. Author: Steafny Hebert M.D. I have personally viewed this procedure/exam, reviewed this report, and made changes to it where appropriate. Final/Electronically signed / Stefany Hebert 12/04/2010 19:10 PM Assessment and Plan: Mr. 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 of Otolaryngology documented in this e ncounter Plan of Treatment +--------+ + + + + | Date | Type | Specialty | Care Team | Description | +--------+ + + + + | 04/29/ | Diagnostic | Channel Marketing Specialist | Marce Meyer | | | 2019 | Visit | | Eve Briseno [address] | | | | | | [address] | | | | | | [place], [place] | | | | | | [address] | | +--------+ + + + + [...] - QIAN | [address] | [place], [place] | | | [facility] | [address] | [address] | | | TESTS | | | [...] [facility] | [address] | [place], [place] | | | THERAPY | [address] | [address] | | + + + + + [...] | + + + + + | [facility] | [address] | [place] [address] | | | PATHOLOGY | [address] [...] DEPARTMENT OF | [address] | [place] [address] | | | PATHOLOGY | [address] [...] Sun, | | | | | | TECHNICAL ARTIST | | | | + + + + + + + + | Specimen | + + | | + + + + + + + | Performing | Address | City/State/Zipcode | Phone Number | | Organization | | | | + + + + + | [facility] | [address] | [place], [place] | | | THERAPY | [facility] | [address] | | + + + + + [...] | | + +---------+ + + | [facility] DEPARTMENT OF | | | | | [...] + + + | [facility] | [address] | [place] [address] | | | LAB-MICRO | | | [...] - QIAN | [address] | [place], [place] | | | [facility] | [facility] | [address] | | | TESTS | | | [...] DEPARTMENT OF | [address] | [place] [address] | | | PATHOLOGY | [address] [...] | + + + + + | [facility] | [address] | [place] [address] | | | PATHOLOGY | [address] [...] At | + + + | [facility] ([facility]) [facility] | [facility] | | [place] [address] | REGIONAL | | [place] [address] | LABORATORY | + + + + + + + + | Performing | Address | City/State/Zipcode | Phone Number | | Organization | | | | + + + + + | [facility] | [address] | [place] [address] | | | LABORATORY | | | [...] At | + + + | [facility] ([email or web address]) [facility] | [facility] | | [place] [address] | REGIONAL | | [place] [address] | LABORATORY | + + + + + + + + | Performing | Address | City/State/Zipcode | Phone Number | | Organization | | | | + + + + + | [facility] | [address] | [place] [address] | | | LABORATORY | | | [...] | + + + + + | [facility] | [address] | [place] [address] | | | PATHOLOGY | [address] [...] Way Lab) | [facility] | | [facility] [address] | REGIONAL | | [address] | LABORATORY | | [place] [address] | | + + + + + + + + | Performing | Address | City/State/Zipcode | Phone Number | | Organization | | | | + + + + + | [facility] | [address] | [place] [address] | | | LABORATORY | | | [...] | + + + + + | [facility] | [address] | [place] [address] | | | PATHOLOGY | [address] [...] [facility] | [address] | [place], [place] | | | [facility] | [address] | [address] | | | TESTS | | | [...] AILYN [place] | [address] | [place], [place] | | | [facility] | [facility] | [address] | | | TESTS | | | [...] + | [facility] | [address] | [place], [place] | | | [facility] | [address] | [address] | | | TESTS | | | [...] | + + + + + | [facility] | [address] | [place] [address] | | | PATHOLOGY | [address] [...] DEPARTMENT OF | [address] | [place] [address] | | | PATHOLOGY | [address] [...] [facility] | | | | | | ([facility]) | | | | | | [address] | | | | | | [address] | | | | | | [address] | | | | [address] | | | | | | [place] | | | | | | , [place] [address] | | | | + + + + + + + + | Specimen | + + | | + + + + + + + | Performing | Address | City/State/Zipcode | Phone Number | | Organization | | | | + + + + + | [facility] | [address] | [place] [address] | | | LAB-MICRO | | | [...] | + + + + + | [facility] | [address] | [place] [address] | | | PATHOLOGY | [address] [...] DEPARTMENT OF | [address] | [place] [address] | | | PATHOLOGY | [address] [...] | + + + + + | [facility] DEPARTMENT | [address] | [place] [address] | | | PATHOLOGY | [address] | | | + + + + + RESP CARE THERAPY (12/04/2010 2:06 AM PDT) + + + + + + | Component | Value | Ref Range | Performed | Pathologist | | | | | At | Signature | + + + + + + | RESPIRATORY | : History and Assessment | | [facility] | | | CARE | : OTITIS [...] [place], | | | | | | TECHNICAL ARTIST | | | | + + + + + + + + | Specimen | + + | | + + + + + + + | Performing | Address | City/State/Zipcode | Phone Number | | Organization | | | | + + + + + | [facility] | [address] | [place], [place] | | | THERAPY | [address] | [address] | | + + + + + [...] + + + | [facility] | [address] | [place] [address] | | | LAB-MICRO | | | [...] + + + | [facility] | [address] | [place] [address] | | | LAB-MICRO | | | [...] Alessia LAUGHLIN | [address] | [place], [place] | | | [facility] | [address] | [address] | | | TESTS | | | [...] | + + + + + | [facility] | [address] | [place] [address] | | | PATHOLOGY | [address] [...] | + + + + + | [facility] | [address] | [place] [address] | | | PATHOLOGY | [address] [...] | + + + + + | [facility] DEPARTMENT OF | [address] | [place] [address] | | | PATHOLOGY | [address] [...] | | | | | 1 dose, [facility] 12/03/10 at 2145 | | PM PDT [...] +---+---+ + +-------+ + +---+---+ | senna-docusate (lloi Marks) | Given | 12/07/19 | 1 [...]
--- OUTSIDE RECORDS SUMMARY | ~2019-04-25 | XMS | Encounter Summary ---
Demographics + + + | Address | [address] | | | [place] [address] | + + + | Home Phone | | + + + | Preferred Language | Unknown | + + + | Marital Status | Single | + + + | Bahai Affiliation | BAP | + + + | Race | White | + + + | Ethnic Group | Not or | + + + Author + + + | Author | [facility] | + + + | Organization | [facility] | + + + | Address | Unknown | + + + | Phone | Unavailable | + + + Support + + + + + | Name | Relationship | Address | Phone | + + + + + | Margarito Owusu | ECON | [address] | | | | | [place] | | | | | [address] | | + + + + + Care Team Providers + +------+ + | Care Manager Stylist Name | Role | Phone | + +------+ + PCP | Unavailable | + +------+ + Encounter Details +--------+ + + + + | Date | Type | Department | Care Team | Description | +--------+ + + + + | 02/28/ | Results | Otolaryngology | Dustin, | | | 2001 | Only | Otology Services at | Aamir [address] | | | | | [facility] [address] | [address] | | | | | [address] | [place] [address] | | | | | Mailcode: PV01 | | | | | | Physician's Chris | | | | | | [place], [place] | | | | | | [address] | | | | | | [phone] | | | +--------+ + + + [...] + + | 04/29/ | Diagnostic | Air And Water Filler | Marce Meyer | | | 2019 | Visit | | Eve Briseno [address] | | | | | | [address] | | | | | | [place], [place] | | | | | | [address] | | +--------+ + + + + documented as of this encounter Procedures + +--------+ + + + | Procedure Name | Priori | Date/Time | Associated Diagnosis | Comments | | | ty | | | | + +--------+ + + + | CT IAC WO CONTRAST | Routin | 02/28/2002 | | Results for this | | | e | 12:50 PM | | procedure are in the | | | | PDT | | results section. | + +--------+ + + + | MRI IAC WO CONTRAST | Routin | 02/28/2002 | | Results for this | | | e | 11:55 AM | | procedure are in the | | | | PDT | | results section. | + +--------+ + + + documented in this encounter Results CT IAC WO CONTRAST (02/28/2002 12:50 PM PDT) + + + + + + | Component | Value | Ref Range | Performed | Pathologist | | | | | At | Signature | + + + + + + | CT IAC WO | Radiologist 1: YOKASTA | | | | | CONTRAST | Adelaida WILLIAM-Radiologist | | | | | | 2: NATALIIA TEMPLETON M.D.CT | | | | | | SCAN OF THE TEMPORAL | | | | | | BONES: 02/28/2002 | | | | | | Dictated: 02/28/2002 | | | | | | COMPARISON: None | | | | | | available. CLINICAL | | | | | | HISTORY: Status-post | | | | | | right mastoidectomy | | | | | | secondary | | | | | | tocholesteatoma. The | | | | | | patient has sensory | | | | | | neural hearing | | | | | | lossbilaterally and is a | | | | | | candidate for cochlear | | | | | | implant. | | | | | | TECHNIQUE: Contiguous | | | | | | 1 mm axial and coronal | | | | | | images were | | | | | | obtainedthrough the | | | | | | temporal bones. | | | | | | FINDINGS: | | | | | | Post-surgical changes | | | | | | consistent with | | | | | | righttympanomastoidectom | | | | | | y are noted. There is | | | | | | non-dependent soft | | | | | | tissue inthe middle ear | | | | | | worrisome for recurrent | | | | | | or residual | | | | | | cholesteatoma. The | | | | | | cochlea, vestibule, and | | | | | | semi-circular canals are | | | | | | | | | | | | unremarkablebilaterally. | | | | | | The internal | | | | | | auditory canals are | | | | | | widely | | | | | | patent. Theleft | | | | | | facial nerve | | | | | | demonstrates a normal | | | | | | course. The right | | | | | | isdifficult to visualize | | | | | | secondary to adjacent | | | | | | soft tissue. The | | | | | | carotidarteries are | | | | | | normal in course | | | | | | bilaterally. IMPRESSION: | | | | | | 1. The inner ears | | | | | | appear normal | | | | | | bilaterally. | | | | | | 2. Post-surgical | | | | | | changes consistent with | | | | | | previous right | | | | | | mastoidectomywith | | | | | | non-dependent soft | | | | | | tissue within the | | | | | | surgical defect | | | | | | worrisomefor residual or | | | | | | recurrent | | | | | | cholesteatoma. END OF | | | | | | IMPRESSION: | | | | + + + + + + + + | Specimen | + + | | + + + +---------+ + + | Performing | Address | City/State/Zipcode | Phone Number | | Organization | | | | + +---------+ + + | [facility] DEPARTMENT OF | | | | | RADIOLOGY | | | | + +---------+ + + MRI IAC WO CONTRAST (02/28/2002 11:55 AM PDT) + + + + + + | Component | Value | Ref Range | Performed | Pathologist | | | | | At | Signature | + + + + + + | MR IAC WO | Radiologist 1: YOKASTA | | | | | CONTRAST | Adelaida WILLIAM-Radiologist | | | | | | 2: NATALIIA TEMPLETON M.D.MRI | | | | | | OF THE TEMPORAL | | | | | | BONES: 02/28/2002 | | | | | | Dictated: | | | | | | 002 COMPARISON: None | | | | | | available. CLINICAL | | | | | | HISTORY: Patient with | | | | | | bilateral central | | | | | | neural hearing lossand | | | | | | candidate for cochlear | | | | | | implant. | | | | | | TECHNIQUE: The | | | | | | following MRI sequences | | | | | | were | | | | | | obtained:1. Axial and | | | | | | coronal thin section | | | | | | T2.2. Sagittal T1. | | | | | | FINDINGS: The | | | | | | seventh/eight nerve | | | | | | complexes are normal | | | | | | bilaterally.No | | | | | | intracanalicular mass is | | | | | | visible. The cochlear, | | | | | | vestibule, and | | | | | | semicircular canals are | | | | | | unremarkable. High T2 | | | | | | signal is seen within | | | | | | the right | | | | | | mastoid. This is | | | | | | betterevaluated on | | | | | | temporal bone CT from | | | | | | the same day. | | | | | | IMPRESSION: 1. Normal | | | | | | inner ears bilaterally. | | | | | | 2. Post-surgical | | | | | | changes to the right | | | | | | mastoid, better | | | | | | evaluated on CTfrom the | | | | | | same day. END OF | | | | | | IMPRESSION: | | | | + + + + + + + + | Specimen | + + | | + + + +---------+ + + | Performing | Address | City/State/Zipcode | Phone Number | | Organization | | | | + +---------+ + + | [place] DEPARTMENT OF | | | | | RADIOLOGY | | | | + +---------+ + + documented in this encounter Visit Diagnoses Not on filedocumented in this encounter"
--- OUTSIDE RECORDS SUMMARY | ~2019-04-25 | XMS | Encounter Summary ---
Demographics + + + | Address | [address] | | | [place] [address] | + + + | Home Phone | | + + + | Preferred Language | Unknown | + + + | Marital Status | Single | + + + | Hoahaoism Affiliation | BAP | + + + [...] [place] | | | | | [address] | | + + + + + Care Team Providers + +------+ + | Care Skin Diving Teacher Name | Role | Phone | + +------+ + | Jaison Chávez MD | PCP | | + +------+ + Encounter Details +--------+ + + + + | Date | Type | Department | Care Team | Description | +--------+ + + + + | 01/02/ | Telephone | Otolaryngology | Willie Plunkett, | | | 2013 | | Otology Services at | | | | | | [facility] [address] | | | | | | [address] | | | | | | Mailcode: PV01 | | | | | | [facility] Chris | | | | | | [place], [place] | | | | | | [address] | | | | | | [phone] | | | +--------+ + + + [...] + + | 04/29/ | Diagnostic | Restaurant Floor Manager | Marce Meyer | | | 2018 | Visit | | Finn, Eve [address] | | | | | | [address] | | | | | | [place], [place] | | | | | | [address] | | +--------+ + + + + documented as of this encounter Visit Diagnoses + + | Diagnosis | + + | 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
--- OUTSIDE RECORDS SUMMARY | ~2019-04-25 | XMS | Encounter Summary ---
Demographics + + + | Address | [address] | | | [place] [address] | + + + | Home Phone [...] [place] | | | | | [address] | | + + + + + Care Team Providers + +------+ + | Care Charge Entry Name | Role | Phone | + +------+ + PCP | Unavailable | + +------+ + Encounter Details +--------+ + + + + | Date | Type | Department | Care Team | Description | +--------+ + + + + | 04/24/ | Office | [facility] | Clinic, | Progress Note | | 2003 | Visit-Trans | | Otolaryngology | | | | cribed | | [...] as of this encounter Progress Notes Interface, Dehairer In - 02/23/2005 8:01 AM PDT [id number] [facility] Date: 04/24/2004 Clinic: Otolaryngology Mr. Marquez is seen in followup. He is postop left trochlear implant. He has healed well, his incision is well, his ear looks normal. He is to be scheduled for programing in about 4 to 5 weeks. Aamir Chan M.D. TONY / MALORIE [id number] / [id number] / [id number] / documented i n this encounter Plan of Treatment +--------+ + + + + | Date | Type | Specialty | Care Team | Description | +--------+ + + + + | 04/29/ | Diagnostic | Resource Analyst | Marce Meyer | | | 2019 | Visit | | Eve Briseno [address] | | | | | | [address] | | | | | | [place] | | | | | | [address] | | +--------+ + + + + documented as of this encounter Visit Diagnoses Not on filedocumented in this encounter"
--- OUTSIDE RECORDS SUMMARY | ~2019-04-25 | XMS | Encounter Summary ---
Demographics + + + | Address | [address] | | | [place] [address] | + + + | Home Phone | | + + + | Preferred Language | Unknown | + + + | Marital Status | Single | + + + | Orthodox Affiliation | BAP | + + + | Race | White | + + + | Ethnic Group | Not or | + + + Author + + + | Author | [facility] | + + + | Organization | [facility] | + + + | Address | Unknown | + + + | Phone | Unavailable | + + + Support + + + + + | Name | Relationship | Address | Phone | + + + + + | Margarito Owusu | ECON | [address] | | | | | [place] | | | | | [address] | | + + + + + Care Team Providers + +------+ + | Care Merchandising Internship Name | Role | Phone | + +------+ + | Maurice Zelaya MD | PCP | | + +------+ + Encounter Details +--------+ + + + + | Date | Type | Department | Care Team | Description | +--------+ + + + + | 01/17/ | Pharmacy | Outpatient Retail | | | | 2013 | Visit | [facility] | | | | | | [address] | | | | | | [place], | | | | | | [place] [address] | | | +--------+ + + + [...] + + | 04/29/ | Diagnostic | Pattern Illustrator | Marce Meyer | | | 2018 | Visit | | Eve Briseno [address] | | | | | | [address] | | | | | | [place], [place] | | | | | | [address] | | +--------+ + + + + documented as of this encounter Visit Diagnoses Not on filedocumented in this encounter"
--- OUTSIDE RECORDS SUMMARY | ~2019-04-25 | XMS | Encounter Summary ---
Demographics + + + | Address | [address] | | | [place] [address] | + + + | Home Phone [...] [place] | | | | | [address] | | + + + + + Care Team Providers + +------+ + | Care Benzol Still Operator Name | Role | Phone | + +------+ + | Jaison Chávez MD | PCP | | + +------+ + Encounter Details +--------+ + + + + | Date | Type | Department | Care Team | Description | +--------+ + + + + | 12/14/ | Telephone | Otolaryngology | Pascual Pace, | | | 2013 | | Audiology Services | STEPHANIE [address] | | | | | at [facility] [address] | [address] | | | | | [address] | [place], [place] | | | | | Mailcode: PV01 | [address] | | | | | [facility] | | | | | | [place], [place] | | | | | | [address] | | | | | | [phone] | | | +--------+ + + + [...] + + | 04/29/ | Diagnostic | Pillow Agent | Marce Meyer | | | 2019 | Visit | | Eve Briseno [address] | | | | | | [address] | | | | | | [place], [place] | | | | | | [address] | | +--------+ + + + + documented as of this encounter Visit Diagnoses Not on filedocumented in this encounter"
--- OUTSIDE RECORDS SUMMARY | ~2019-04-25 | XMS | Encounter Summary ---
Demographics + + + | Address | [address] | | | [place] [address] | + + + | Home Phone | | + + + | Preferred Language | Unknown | + + + | Marital Status | Single | + + + | Quaker Affiliation | BAP | + + + [...] [place] | | | | | [address] | | + + + + + Care Team Providers + +------+ + | Care Labor Relations Manager Name | Role | Phone | + +------+ + | Cee Triana MD | PCP | Unavailable | + +------+ + Encounter Details +--------+ + + + + | Date | Type | Department | Care Team | Description | +--------+ + + + + | 09/23/ | Telephone | Digestive Health | Ayana Butler W, | | | 2012 | | [facility] [address] | [address] | | | | | [address] [address] | [facility] [place] | | | | | Mailcode: [place] | [address] | | | | | for Health and | [phone] | | | | | [facility] [address], [facility] [address] | | | | | | [place], [place] | | | | | | [address] | | | | | | [phone] | | | +--------+ + + + [...] + + | 04/29/ | Diagnostic | Dye Winch Operator | Marce Meyer | | | 2019 | Visit | | Eve Briseno [address] [place] [address] | | | | | | [address] | | | | | | [place] | | | | | | [address] | | +--------+ + + + + documented as of this encounter Visit Diagnoses Not on filedocumented in this encounter"
--- OUTSIDE RECORDS SUMMARY | ~2019-04-25 | XMS | Encounter Summary ---
Demographics + + + | Address | [address] | | | [place] [address] | + + + | Home Phone [...] Author + + + | Author | [facility] | + + + | Organization | [facility] | + + + | Address | Unknown | + + + | Phone | Unavailable | + + + Support + + + + + | Name | Relationship | Address | Phone | + + + + + | Margarito Owusu | ECON | [address] | | | | | [place] | | | | | [address] | | + + + + + Care Team Providers + +------+ + | Care Academic Affairs Vice President Name | Role | Phone | + +------+ + | Jaison Chávez MD | PCP | | + +------+ + Encounter Details +--------+ + + + + | Date | Type | Department | Care Team | Description | +--------+ + + + + | 12/15/ | Results | NON-[facility] EP[facility] | Mahnaz Maloney, | | | 2008 | Only | Department | [address] | | | | | [place] | | | | | | [address] | | | | | | [phone] | | | | | | | [...] + + | 04/29/ | Diagnostic | Dogger | Marce Meyer | | | 2019 | Visit | | Eve Briseno [address] [facility] | | | | | | [address] | | | | | | [place], [place] | | | | | | [address] | | +--------+ + + + + documented as of this encounter Procedures + +--------+ + + + | Procedure Name | Priori | Date/Time | Associated Diagnosis | Comments | | | ty | | | | + +--------+ + + + | UA, DIPSTICK ONLY | Routin | 12/15/2008 | | Results for this | | | e | 10:41 PM | | procedure are in the | | | | PDT | | results section. | + +--------+ + + + | OCCULT BLOOD, FECES, | Routin | 12/15/2008 | | Results for this | | DIAGNOSTIC | e | 10:33 PM | | procedure are in the | | | | PDT | | results section. | + +--------+ + + + | ABDOMEN 2 VIEW PA | Routin | 12/15/2008 | | Results for this | | CHEST [address]1912 | e | 9:58 PM | | procedure are in the | | | | PDT | | results section. | + +--------+ + + + | CBC W/DIFF, REFLEX | Routin | 12/15/2008 | | Results for this | | | e | 9:06 PM | | procedure are in the | | | | PDT | | results section. | + +--------+ + + + | INR | Routin | 12/15/2008 | | Results for this | | | e | 9:06 PM | | procedure are in the | | | | PDT | | results section. | + +--------+ + + + | BASIC METABOLIC SET | Routin | 12/15/2008 | | Results for this | | (NA, K, CL, TCO2, | e | 9:06 PM | | procedure are in the | | BUN, CR, GLU, CA) | | PDT | | results section. | + +--------+ + + + | TYPE AND SCREEN | Routin | 12/15/2008 | | Results for this | | | e | 9:06 PM | | procedure are in the | | | | PDT | | results section. | + +--------+ + + + documented in this encounter Results SRUTHI MUNIZ ONLY (12/15/2008 10:41 PM PDT) + + + + + [...] | 1.020 | 1.005 - 1.030 | [facility] | | | [facility] | | | A MEDICAL | | | | | | CENTER | | + + + + + + | PH(UR) | 6.5 | 5.0 - 8.0 | [facility] | [...] + + | [facility] | And | [place] [address] | | | MEDICAL CENTER | Streets | | | + + + + + OCCULT BLOOD, FECES, DIAGNOSTIC (12/15/2008 10:33 PM PDT) + + + + + + | Component | Value | Ref Range | Performed | Pathologist | | | | | At | Signature | + + + + + + | OCCULT | POSITIVE | NEGATIVE | [facility] | | | BLOOD, | | | A MEDICAL | | | FECES, | | | CENTER | | | SCREEN | | | | | + + [...] | + + + + + | [facility] | [address] [place] | [place] [address] | | | [facility] [place] | Streets | | | + + + + + ABDOMEN 2 VIEW PA CHEST [id number] (12/15/2008 9:58 PM PDT) + + | Specimen | + + | | + + + + + | Narrative | Performed At | + + + | EXAM: ABDOMEN HISTORY: Pain COMPARISON: 10/30/2008 FINDINGS: | [facility] | | Two views of the abdomen and a single view of the chest were | DEPARTMENT OF | | obtained. There are a few air fluid levels present in the right | RADIOLOGY | | abdomen which are of questionable clinical significance. No small | | | bowel distension or free air is demonstrated. The renal regions are | | | difficult to evaluate. On one view, a soft density is seen above | | | the right iliac crests. The density is not noted on the remaining | | | projections and probably represent artifact. There is poor | | | inspiration. No infiltrate is seen. IMPRESSION: No evidence of | | | small bowel obstruction or perforation. | | + + + + + | Procedure Note | + + | Interface, Radiology Results - 03/16/2015 11:52 AM PDT EXAM: ABDOMEN | | HISTORY: Pain | | COMPARISON: 10/30/2008 | | FINDINGS: Two views of the abdomen and a single view of the chest were | | obtained. There are a few air fluid levels present in the right | | abdomen which are of questionable clinical significance. No small | | bowel distension or free air is demonstrated. The renal regions are | | difficult to evaluate. On one view, a soft density is seen above the | | right iliac crests. The density is not noted on the remaining | | projections and probably represent artifact. | | There is poor inspiration. No infiltrate is seen. | | IMPRESSION: No evidence of small bowel obstruction or perforation. | + + + +---------+ + + | Performing | Address | City/State/Zipcode | Phone Number | | Organization | | | | + +---------+ + + | [facility] DEPARTMENT OF | | | | | RADIOLOGY | | | | + +---------+ + + INR (12/15/2008 9:06 PM PDT) + + + + + + | Component | Value | Ref Range | Performed | Pathologist | | | | | At | Signature | + + + + + + | PROTHROMBIN | 10.3 | 9.6 - 12.3 SEC | [facility] | | | TIME | | | A MEDICAL | | | | | | CENTER | | + + + + + + | INR | 0.9 (L) | 1.0 - 1.1 | [facility] | | | | | | A MEDICAL | | | | | | CENTER | | + + + + + + | APTT | 27.9Comment: HEPARIN | 27.0 - 36.5 SEC | [facility] | | | | RESPONSE CURVE FILED IN | | A MEDICAL | | | | PHARMACY | | CENTER | | + + + + + + | ON | NO | | [facility] | | | COUMADIN? | | | A MEDICAL | | | | | | CENTER | | + + + + + + | COUMADIN | [employer]BE[employer] HA[employer]ARD ABATEMENT WORKER | | [facility] | | | CURRENT | | | A MEDICAL | | | DOSE | | | CENTER | | + + + + + + | LAST DOSE | [employer]BE[employer] HAZARD ABATEMENT WORKER | | [facility] | | | DATE | | | A MEDICAL | | | | | | CENTER | | + + + + + + | LAST DOSE | [employer]BESTOS HAZARD ABATEMENT WORKER | | [facility] | | | TIME | | | A MEDICAL | | | | | | CENTER | | + + + + + + | LAST DOSE | [employer] HAZARD ABATEMENT WORKER | | [facility] | | | DATE | | | A MEDICAL | | | | | | CENTER | | + + + + + + | LAST DOSE | [employer]BE[employer] HA[employer]ARD ABATEMENT WORKER | | [facility] | | | TIME | | | A MEDICAL | | [...] | + + + + + | [facility] | And | [place] [address] | | | [facility] | Streets | | | + + + + + CBC W/PHUONG ORDONEZ (12/15/2008 9:06 PM PDT) + + + + + [...] + + + + | HEMOGLOBIN | 14.1 | 12.3 - 17.0 | [facility] | | | | | g/dL | A MEDICAL | | | | | | CENTER | | + + + + + + | RED BLOOD | 5.10 | 4.7 - 6.1 X10 | [facility] | | | CELL COUNT | | 6/uL | A MEDICAL | | | | | | CENTER | | + + + + + + | HEMATOCRIT | 41.6 | 40.0 - 54.0 % | [facility] | | | | | | A MEDICAL | | | | | | CENTER | | + + + + + + | MCV | 81.5 (L) | 82 - 100 fl | [facility] | | | | | | A MEDICAL | | | | | | CENTER | | + + + + + + | MCH | 27.6 (L) | 28.0 - 32.0 pg | [facility] | | | | | | A MEDICAL | | | | | | CENTER | | + + + + + + | MCHC | 33.9 | 32 - 36 g/dL | [facility] | | | | | | A MEDICAL | | | | | | CENTER | | + + + + + + | RDW | 14.5 | 12 - 15 fL | [facility] | | | | | | A MEDICAL | | | | | | CENTER | | + + + + + + | PLATELET | 181 | 150 - 450 X10 3 | [...] + + + + | LYMPHOCYTE | 12.1 (L) | 20 - 50 % | [facility] | | | % | | | A MEDICAL | | | | | | CENTER | | + + + + + + | EOS % | 2.6 | 0 - 5 % | [facility] | | | | | | A MEDICAL | | | | | | CENTER | | + + + + + + | BASO % | 1.7 (H) | 0 - 1 % | [facility] | | | | | | A MEDICAL | | | | | | CENTER | | + + + + + + | MONOCYTE % | 6.8 | 2 - 10 % | [facility] | | | | | | A MEDICAL | | | | | | CENTER | | + + + + + + | BANDS % | [employer]BE[employer] HA[employer]ARD ABATEMENT WORKER | 0 - 7 % | [facility] [...] | + + + + + | [facility] | And | [place] [address] | | | MEDICAL CENTER | Streets | | | + + + + + BASIC METABOLIC SET (NA, K, CL, TCO2, BUN, CR, GLU, CA) (12/15/2008 9:06 PM PDT) + + + + + + | Component | Value | Ref Range | Performed | Pathologist | | | | | At | Signature | + + + + + + | SODIUM, | 138 | 137 - 146 MEQ/L | [facility] | | | PLASMA | | | A MEDICAL | | | (LAB) | | | CENTER | | + + + + + + | POTASSIUM, | 3.3 (L) | 3.5 - 5.2 MEQ/L | [facility] | | | PLASMA | | | A MEDICAL | | | (LAB) | | | CENTER | | + + + + + + | CO2 | 27 | 22 - 28 MEQ/L | [facility] | | | | | | A MEDICAL | | | | | | CENTER | | + + + + + + | CHLORIDE, | 99 | 98 - 106 MEQ/L | [facility] | | | PLASMA | | | A MEDICAL | | | (LAB) | | | CENTER | | + + + + + + | ANION GAP | 15.3 | 8 - 16 MEQ/L | [facility] | | | | | | A MEDICAL | | | | | | CENTER | | + + + + + + | GLUCOSE, | 174 (H) | 70 - 105 MG/DL | [facility] | | | PLASMA | | | A MEDICAL | | | (LAB) | | | CENTER | | + + + + + + | BUN, PLASMA | 6 (L) | 8 - 30 MG/DL | [facility] [...] + + + + | BUN/CREATIN | 7 | 6 - 20 RATIO | [facility] | | | INE RATIO | | | A MEDICAL | | | | | | CENTER | | + + + + + + | CALCIUM, | 9.6 | 8.5 - 10.8 | [facility] | [...] + + + | [facility] | [place] | [place] [address] | | | MEDICAL CENTER | Streets | | | + + + + + TYPE AND SCREEN (12/15/2008 9:06 PM PDT) + + + + + + | Component | Value | Ref Range | Performed | Pathologist | | | | | At | Signature | + + + + + + | ABO GROUP | A | | [facility] | | | | | | A MEDICAL | | | | | | CENTER | | + + + + + + | RH TYPE | NEG | | [facility] | | | | | | A MEDICAL | | | | | | CENTER | | + + + + + + | ANTIBODY | NEGATIVE | NEGATIVE | [facility] | | | SCREEN | | | A MEDICAL | | [...] | + + + + + | [facility] | And | [place] [address] | | | MEDICAL CENTER | Streets | | | + + + + + documented in this encounter Visit Diagnoses Not on filedocumented in this encounter"
--- OUTSIDE RECORDS SUMMARY | ~2019-04-25 | XMS | Encounter Summary ---
Demographics + + + | Address | [address] | | | [place] [address] | + + + | Home Phone [...] Author + + + | Author | [facility] | + + + | Organization | [facility] | + + + | Address | Unknown | + + + | Phone | Unavailable | + + + Support + + + + + | Name | Relationship | Address | Phone | + + + + + | Margarito Owusu | ECON | [address] | | | | | [place] | | | | | [address] | | + + + + + Care Team Providers + +------+ + | Care Staff Analyst Name | Role | Phone | + +------+ + PCP | Unavailable | + +------+ + Encounter Details +--------+ + + + + | Date | Type | Department | Care Team | Description | +--------+ + + + + | 10/19/ | Letter-Vega | [facility] | Letter, | Letters | | 2002 | scribed | | Otolaryngology | | +--------+ + + + + [...] as of this encounter Progress Notes Interface, Boot And Shoe Repairman In - 02/03/2006 3:07 AM PDT October 19, 2002 Nam Arboleda MD [address] [place] [address] [address] [place] [address] RE:Edgar Marquez MR#:[id number] Arboleda: I appreciate your note of September 30 regarding Edgar Marquez. It would be most helpful if you could clear him for a cochlear implant by a more formal preoperative history and physical. It does not have to be totally complete but just regarding his asthma and cardiac status. That would allow us to go ahead and schedule him to be seen. I really do appreciate your concern with regards to him and hope that we can get him an implant, which should improve his status considerably. Sincerely, Aamir Chan MD Professor Department of Otolaryngology/Head and Neck Surgery Email: [email or web address] A 3: 07 AM PDTdocumented in this encounter Plan of Treatment +--------+ + + + + | Date | Type | Specialty | Care Team | Description | +--------+ + + + + | 04/29/ | Diagnostic | Firmware Developer | Marce Meyer | | | 2019 | Visit | | Eve Briseno [address] | | | | | | [address] | | | | | | [place] | | | | | | [address] | | +--------+ + + + + documented as of this encounter Visit Diagnoses Not on filedocumented in this encounter"
--- OUTSIDE RECORDS SUMMARY | ~2019-04-25 | XMS | Encounter Summary ---
Demographics + + + | Address | [address] | | | [place] [address] | + + + | Home Phone [...] [place] | | | | | [address] | | + + + + + Care Team Providers + +------+ + | Care Development Chemist Name | Role | Phone | + +------+ + | Jaison Chávez MD | PCP | | + +------+ + Reason for Visit + + + | Reason | Comments | + + + | Hearing loss | | + + + Encounter Details +--------+ + + + + | Date | Type | Department | Care Team | Description | +--------+ + + + + | 12/06/ | Documentati | Otolaryngology | Pascual Pace, | Hearing loss | | 2014 | on | Audiology Services | Melodie [facility] [address] | | | | | at [facility] [address] [facility] | [address] | | | | | [address] | [place], [place] | | | | | Mailcode: [id number] | [id number] | | | | | [facility] | | | | | | [place], [place] | | | | | | [address] | | | | | | [phone] | | | +--------+ + + + [...] + + | 04/29/ | Diagnostic | Safety Pin Assembling Machine Operator | Marce Meyer | | | 2019 | Visit | | Eve Briseno [address] [facility] | | | | | | [address] | | | | | | [place] | | | | | | [address] | | +--------+ + + + + documented as of this encounter Visit Diagnoses Not on filedocumented in this encounter"
--- OUTSIDE RECORDS SUMMARY | ~2019-04-25 | XMS | Encounter Summary ---
Demographics + + + | Address | [address] | | | [place] [address] | + + + | Home Phone [...] [place] | | | | | [address] | | + + + + + Care Team Providers + +------+ + | Care Retail Merchandiser Name | Role | Phone | + +------+ + | Jaison Chávez MD | PCP | | + +------+ + Encounter Details +--------+ + + + + | Date | Type | Department | Care Team | Description | +--------+ + + + + | 07/09/ | Documentati | Otolaryngology | Pascual Pace, | | | 2014 | on | Audiology Services | STEPHANIE [address]ell [address] | | | | | at [facility] | [address] [facility] | | | | | [facility] [address] | [address] | | | | | Mailcode: PV01 | [id number] | | | | | [facility] | | | | | | [place], [place] | | | | | | [address] | | | | | | [phone] | | | +--------+ + + + [...] + + | 04/29/ | Diagnostic | Anthropologist | Marce Meyer | | | 2019 | Visit | | Eve Briseno [address] | | | | | | [address] | | | | | | [place], [place] | | | | | | [address] | | +--------+ + + + + documented as of this encounter Visit Diagnoses Not on filedocumented in this encounter"
--- OUTSIDE RECORDS SUMMARY | ~2019-04-25 | XMS | Encounter Summary ---
Demographics + + + | Address | [address] | | | [place] [address] | + + + | Home Phone [...] Author + + + | Author | [facility] | + + + | Organization | [facility] | + + + | Address | Unknown | + + + | Phone | Unavailable | + + + Support + + + + + | Name | Relationship | Address | Phone | + + + + + | Margarito Owusu | ECON | [address] | | | | | [place] | | | | | [address] | | + + + + + Care Team Providers + +------+ + | Care Director Of Partnerships Name | Role | Phone | + +------+ + | Sergo Leigh MD | PCP | Unavailable | + +------+ + Encounter Details +--------+ + + + + | Date | Type | Department | Care Team | Description | +--------+ + + + + | 11/20/ | Telephone | Otolaryngology | Jose Franco, | | | 2010 | | Otology Services at | [address] [facility] [address] | | | | | [address] | [address] | | | | | [address] | [place] [address] | | | | | Mailcode: PV01 | [phone] | | | | | [facility] | (Fax) | | | | | [place], [place] | | | | | | [address] | | | | | | [phone] | | | +--------+ + + + [...] + + | 04/29/ | Diagnostic | Signal Operator | Marec Meyer | | | 2019 | Visit | | Eve Briseno [address] | | | | | | [address] | | | | | | [place] | | | | | | [address] | | +--------+ + + + + documented as of this encounter Visit Diagnoses Not on filedocumented in this encounter"
--- OUTSIDE RECORDS SUMMARY | ~2019-04-25 | XMS | Encounter Summary ---
Demographics + + + | Address | [address] | | | [place] [address] | + + + | Home Phone | | + + + | Preferred Language | Unknown | + + + | Marital Status | Single | + + + | Latter-Day Affiliation | BAP | + + + | Race | White | + + + | Ethnic Group | Not or | + + + Author + + + | Author | [facility] | + + + | Organization | [facility] | + + + [...] [place] | | | | | [address] | | + + + + + Care Team Providers + +------+ + | Care Test Director Name | Role | Phone | + +------+ + | Jaison Chávez MD | PCP | | + +------+ + Reason for Visit +--------+ + | Reason | Comments | +--------+ + | Preop | right tympanoplasty 9/4 | +--------+ + Encounter Details +--------+---------+ + + + | Date | Type | Department | Care Team | Description | +--------+---------+ + + + | 03/23/ | Office | Otolaryngology | Willie Plunkett, | Cholesteatoma | | 2013 | Visit | Otology Services at | | (Primary Dx) | | | | [facility] [address] | | | | | | [address] | | | | | | Mailcode: PV01 | | | | | | Physician[facility] | | | | | | [place], [place] | | | | | | [address] | | | | | | [phone] | | | +--------+---------+ + + + [...] + + documented as of this encounter Patient Instructions Patient Instructions Aruna Edwards MA - 03/23/2013 3:09 PM PDTThank you for choosing [facility] Department of Otolaryngology for your health care needs. If you need to speak to an EN T physician after normal business hours, please call [phone] and ask to have the ENT ph ysician field installation technician paged. Corinezackyaya is a great way to contact me if you have questions in between visits. If you are n ot already signed up for RAREFORMhart there is information at the end of this After Visit Summary to help you get started. documented in this encounter Progress Notes Willie Plunkett MD - 04/10/2013 2:41 PM PDTATTENDING PHYSICIAN ADDENDUM The patient was seen and examined with the housestaff, Dr. Vicente. I repeated pertinent as pects of the history and physical exam and reviewed appropriate imaging studies. I confirm the findings in the resident note, edited the content and formulated the assessment and plan . Willie Plunkett MD Academic Services Coordinator Otology, Neurotology & Skull Base Surgery ustavo Vicente MD - 03/23/2013 3[facility]OLOGY CLINIC NOTE Date: 03/23/2013 HPI: Edgar Marquez is a 47 y.o. male is here for a pre-op appointment. He has a rec urrent cholesteatoma on the right side and is to undergo a revision CWD tympanomastoidectomy . He also has a left CI. He has been fighting an abdominal wound infection after undergoin g a VHR with Dr. Butler in July of this year. He still has significant drainage on the right. He had his pre-op visit with anesthesia today. Exam: There were no vitals taken for this visit. General: Well developed, well nourished, Speech is intact. Neuro: Awake, alert, oriented x3, CN intact Psych: Appropriate. Face: Normal facial contour, normal facial nerve function Eyes: Vision grossly intact, EOMI Ears: AD: Normal external anatomy,dry but has as posterior scar band and cholesteatoma debris be hind the scar band. TM clear, intact without effusion : Normal external anatomy, left CI in places Resp: Increased work of breathing Assessment and Plan: Edgar Marquez has recurrent cholesteatoma on the right. He is scheduled for surgery on 03/30 for CWD tympmastoid and meatoplasty. A full PARQ was held and all risks were explained. The patient would like to proceed. - Surgery 03/30/13 - Consented today This patient was seen and discussed with Willie Plunkett MD. Martha Vicente MD Otorhinolaryngology - Head & Neck Surgery documented in this encounter Plan of Treatment +--------+ + + + + | Date | Type | Specialty | Care Team | Description | +--------+ + + + + | 04/29/ | Diagnostic | Fitter Tacker | Marce Meyer | | | 2018 | Visit | | Finn, Eve [address] [facility] | | | | | | [address] | | | | | | [place], [place] | | | | | | [address] | | +--------+ + + + + documented as of this encounter Visit Diagnoses + + | Diagnosis | + + | Cholesteatoma - Primary Cholesteatoma, unspecified | + + documented in this encounter"
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
--- OUTSIDE RECORDS SUMMARY | ~2019-04-25 | XMS | Encounter Summary ---
Demographics + + + | Address | [address] | | | [place] [address] | + + + | Home Phone [...] + + + | Author | [facility] | + + + | Organization | [facility] | + + + | Address | Unknown | + + + | Phone | Unavailable | + + + Support + + + + + | Name | Relationship | Address | Phone | + + + + + | Margarito Owusu | ECON | [address] | | | | | [place] | | | | | [address] | | + + + + + Care Team Providers + +------+ + | Care Back Winder Name | Role | Phone | + +------+ + | Maurice Zelaya MD | PCP | | + +------+ + Encounter Details +--------+ + + + + | Date | Type | Department | Care Team | Description | +--------+ + + + + | 08/29/ | Procedure - | [facility] [address] | Marcos Villanueva | Operative Report | | 2009 | | E The | MD [address] | | | | Transcribed | [place] | [address] | | | | | [address] | [place] [address] | | | | | | [phone] | | | | | | | [...] + + | 04/29/ | Diagnostic | Headstart Teacher | Marce Meyer | | | 2019 | Visit | | Eve Briseno [address] | | | | | | [address] | | | | | | [place], [place] | | | | | | [address] | | +--------+ + + + + documented as of this encounter Procedures + +--------+ + + + | Procedure Name | Priori | Date/Time | Associated Diagnosis | Comments | | | ty | | | | + +--------+ + + + | OPERATION RECORD | | 08/29/2009 | | Results for this | | | | 9:30 AM | | procedure are in the | | | | PST | | results section. | + +--------+ + + + documented in this encounter Results OPERATION RECORD (08/29/2009 9:30 AM PST) + + | Transcriptions | + + | Marcos Villanueva MD - 08/29/2009 6:38 PM [facility] | | REPORT OF [id number] [place] [address] | | [place] VIVAR RDATE OF OPERATION: 08/29/2009SURGEON: Marcos | | Saleem Villanueva.ANESTHESIOLOGIST: Svetlana Marx M.D.PREPROCEDURE DIAGNOSIS: Need for | | intravenous access due to refractory Pseudomonasinfection.POSTPROCEDURE DIAGNOSIS: Need | | for intravenous access due to refractory Pseudomonasinfection.PROCEDURE: Left | | subclavian single-lumen Martins catheter placement.ANESTHESIA: IV sedation with | | local.ESTIMATED BLOOD LOSS: Minimal.PREOPERATIVE ANTIBIOTIC: 3.375 grams of IV | | Zosyn.COUNTS: Sponge, needle and instrument counts correct.INTRAOPERATIVE | | COMPLICATIONS: Nil.DESCRIPTION OF PROCEDURE: The patient was taken to the operative | | suite and placedcomfortably in a supine position on the operative suite table. At this | | time thepatient received appropriate IV sedation per anesthesia. The bilateral neck | | andchest regions were prepped and draped sterilely. The left infraclavicular area | | waslocally anesthetized with 1% Xylocaine. The left subclavian vein was entered witha | | single pass of the needle and the wire passed into the superior vena cava | | underfluoroscopic guidance without difficulty. The Martins catheter was then placedover | | the chest wall under fluoroscopy and I measured an appropriate length. Asmall tunnel | | was made in the left infraclavicular area as well. The Hickmancatheter was placed | | through the subcutaneous tunnel and then down through a dilatorand dilator sheath which | | had been placed over the wire. The dilator, wire anddilator sheath were then removed | | and the catheter was fixed just above the level ofthe right atrium. It was found to | | flush and aspirate quite well with heparinizedsaline. The line was then fixed in | | position with 4-0 Monocryl sutures. The smallincision at the original wire site was | | closed with the same suture. The catheterwas then covered with a sterile dressing.The | | patient tolerated the procedure well, was awakened in the operative suite andtransferred | | to the radiologic suite, where he underwent PA and lateral chest x-ray,which proved to | | be negative for pneumothorax with excellent placement of the line.I did review this film | | prior to the patient leaving our facility.JudithDD: 08/29/2009 18:01:19DT: | | 08/29/2009 18:29:38[address] [id number] : [id number] DATE:Job #: | | [id number]: Eduardo Staton M.D.Lawrence Elzinga, | | Adelaida | | | | | | Electronically | | Signed | | | | | | | | | | | | | | Marcos ShaikhGURJIT MORAIN [id number] : | | [id number] DATE: | |saline. The line was then fixed in position with 4-0 Monocryl sutures. The small | |incision at the original wire site was closed with the same suture. The catheter | |was then covered with a sterile dressing. | | | |The patient tolerated the procedure well, was awakened in the operative suite and | |transferred to the radiologic suite, where he underwent PA and lateral chest x-ray, | |which proved to be negative for pneumothorax with excellent placement of the line. | |I did review this film prior to the patient leaving our facility. | | | | | |Judith | | | | | |ED[address]IV[place] R | |[id number] : 63 | |[id number] | |ADMIT DATE: | | | | /[id number] | | | | | |cc: Marcos Villanueva M.D. | |Omari Tay M.D. | |Sergo Leigh M.D. | | | | | | Electronically Signed | | | | | | | | Marcos Villanueva | | | | | | | [...] | | | | | | | |EDGAR VIVAR | |[id number] : 63 | |[id number] | |ADMIT DATE: | + + documented in this encounter Visit Diagnoses Not on filedocumented in this encounter"
--- OUTSIDE RECORDS SUMMARY | ~2019-04-25 | XMS | Encounter Summary ---
Demographics + + + | Address | [address] | | | [place] [address] | + + + | Home Phone [...] [place] | | | | | [address] | | + + + + + Care Team Providers + +------+ + | Care Pit Furnace Melter Name | Role | Phone | + +------+ + | Jaison Chávez MD | PCP | | + +------+ + Encounter Details +--------+ + + + + | Date | Type | Department | Care Team | Description | +--------+ + + + + | 10/15/ | Results | NON-[facility] EPIC | Omari [...] + | 04/29/ | Diagnostic | Fitter Hand | Marce Meyer | | | 2019 | Visit | | Eve Briseno [address] | | | | | | [address] | | | | | | [place], [place] | | | | | | [address] | | +--------+ + + + + documented as of this encounter Procedures + +--------+ + + + | Procedure Name | Priori | Date/Time | Associated Diagnosis | Comments | | | ty | | | | + +--------+ + + + | CBC WITH MANUAL | Routin | 10/15/2009 | | Results for this | | DIFFERENTIAL | e | 9:35 AM | | procedure are in the | | | | PDT | | results section. | + +--------+ + + + | TOBRAMYCIN, TROUGH | Routin | 10/15/2009 | | Results for this | | | e | 9:35 AM | | procedure are in the | | | | PDT | | results section. | + +--------+ + + + | COMPLETE METABOLIC | Routin | 10/15/2009 | | Results for this | | SET | e | 9:35 AM | | procedure are in the | | (NA,K,CL,CO2,BUN,CRE | | PDT | | results section. | | AT,GLUC,CA,AST,ALT,B | | | | | | TERRY TOTAL,ALK | | | | | | PHOS,ALB,PROT TOTAL) | | | | | + +--------+ + + + | C-REACTIVE PROTEIN | Routin | 10/15/2009 | | Results for this | | | e | 9:35 AM | | procedure are in the | | | | PDT | | results section. | + +--------+ + + + documented in this encounter Results TOBRAMYCIN, TROUGH (10/15/2009 9:35 AM PDT) + + + + + + | Component | Value | Ref Range | Performed | Pathologist | | | | | At | Signature | + + + + + + | TOBRAMYCIN, | < 0.5 (L)Comment: | 1.0 - 2.0 UG/ML | [facility] | | | TROUGH | VERIFIED BY REPEAT | | A MEDICAL | | | | [facility] | | CENTER | | | | Site:[facility] | | | | | | [facility] [address] | | | | | | [facility] | | | | | | [place], [place] | | | | | | [address] l | | | | | | aboratory Director: | | | | | | Gianni Moses | | | | + + + [...] + + + + | [facility] | [address] | [place] [address] | | | [facility] | Streets | | | + + + + + C-REACTIVE PROTEIN (10/15/2009 9:35 AM PDT) + + + + + + | Component | Value | Ref Range | Performed | Pathologist | | | | | At | Signature | + + + + + + | C-REACTIVE | 0.55Comment: Test | <0.80 mg/dL | [facility] | | | PROTEIN | performed at [facility] | | [facility] | | | | [facility]- | | [facility] | | | | [address] | | | | | [address], | | | | | | [place] [id number] | | | | | | : ASHLEY HORTON MD | | | | + + + + + + + + | Specimen | + + | | + + + + + + + | Performing | Address | City/State/Zipcode | Phone Number | | Organization | | | | + + + + + | [facility] | [address] | [place] [address] | [phone] | | [facility] | | | | + + + + + | [facility] | | | | | [facility] | | | | + + + + + CBC WITH MANUAL DIFFERENTIAL (10/15/2009 9:35 AM PDT) + + + + + [...] + + + + | WBC, | MERCHANDISING COORDINATOR | X10 3/uL | [facility] | | [...] + + + | RED BLOOD | 4.32 (L) | 4.7 - 6.1 X10 | [facility] | | | CELL COUNT | | 6/uL | A MEDICAL | | | | | | CENTER | | + + + + + + | HEMATOCRIT | 36.7 (L) | 40.0 - 54.0 % | [facility] | | | | | | A MEDICAL | | | | | | CENTER | | + + + + + + | MCV | 85.0 | 82 - 100 fl | [facility] | | | | | | A MEDICAL | | | | | | CENTER | | + + + + + + | MCH | 29.6 | 28.0 - 32.0 pg | [facility] | | | | | | A MEDICAL | | | | | | CENTER | | + + + + + + | MCHC | 34.9 | 32 - 36 g/dL | [facility] | | | | | | A MEDICAL | | | | | | CENTER | | + + + + + + | RDW | 14.7 | 12 - 15 fL | [facility] | | | | | | A MEDICAL | | | | | | CENTER | | + + + + + + | PLATELET | 148 (L) | 150 - 450 X10 3 | [facility] | | | COUNT | | | A MEDICAL | | | | | | CENTER | | + + + + + + | MPV | 7.8 (L) | 9.0 - 12.0 fL | [facility] | | | | | | A MEDICAL | | | | | | CENTER | | + + + + + + | NEUTROPHIL | 81.2 (H) | 40 - 80 % | [facility] | | | % | | | A MEDICAL | | | | | | CENTER | | + + + + + + | LYMPHOCYTE | 9.4 (L) | 20 - 50 % | [facility] | | | % | | | A MEDICAL | | | | | | CENTER | | + + + + + + | EOS % | 2.9 | 0 - 5 % | [facility] | | | | | | A MEDICAL | | | | | | CENTER | | + + + + + + | BASO % | 0.5 | 0 - 1 % | [facility] | | | | | | A MEDICAL | | | | | | CENTER | | + + + + + + | MONOCYTE % | 6.0 | 2 - 10 % | [facility] | | | | | | A MEDICAL | | | | | | CENTER | | + + + + + + | BANDS % | MERCHANDISING COORDINATOR | 0 - 7 % | [facility] | | | | | | A MEDICAL | | | | | | CENTER | | + + + + + + | NEUTRO % | 85 (H) | 40 - 70 % | [facility] | | | | | | A MEDICAL | | | | | | CENTER | | + + + + + + | LYMPHOCYTE | 9 (L) | 10 - 45 % | [facility] | | | %, MANUAL | | | A MEDICAL | | | | | | CENTER | | + + + + + + | MONOCYTE%, | 5 | 2 - 10 % | [facility] | | | MANUAL | | | A MEDICAL | | | | | | CENTER | | + + + + + + | EOSINOPHIL% | 1 | 0 - 5 % | [facility] | | | , MANUAL | | | A MEDICAL | | | | | | CENTER | | + + + + + + | BASOPHIL%, | MERCHANDISING COORDINATOR | 0 - 1 % | [facility] | | | MANUAL | | | A MEDICAL | | | | | | CENTER | | + + + + + + | REACTIVE | MERCHANDISING COORDINATOR | 0.0 - 4.0 % | [facility] | | | LYMPHS % | | | A MEDICAL | | | | | | CENTER | | + + + + + + | BANDS % | MERCHANDISING COORDINATOR | 0 - 7 % | [facility] | | | | | | A MEDICAL | | | | | | CENTER | | + + + + + + | METAMYELOCY | MERCHANDISING COORDINATOR | 0 - 0 % | [facility] | | | BRANDON % | | | A MEDICAL | | | | | | CENTER | | + + + + + + | MYELOCYTES | MERCHANDISING COORDINATOR | 0 - 0 % | [facility] | | | % | | | A MEDICAL | | | | | | CENTER | | + + + + + + | PROMYELOCYT | MERCHANDISING COORDINATOR | 0 - 0 % | [facility] | | | ES % | | | A MEDICAL | | | | | | CENTER | | + + + + + + | BLASTS | MERCHANDISING COORDINATOR | 0 - 0 % | [facility] [...] + + + + | RBC | MERCHANDISING COORDINATOR | NORMAL | [facility] | | | MORPHOLOGY | | | A MEDICAL | | | | | | CENTER | | + + + + + + | WBC | MERCHANDISING COORDINATOR | NORMAL | [facility] | | | MORPHOLOGY | | | A MEDICAL | | | | | | CENTER | | + + + + + + | PLATELET | MERCHANDISING COORDINATOR | NORMAL | [facility] | | | MORPHOLOGY | | | A MEDICAL | | | | | | CENTER | | + + + + + + | NUCLEATED | MERCHANDISING COORDINATOR | | [facility] | | | RBCS | | | A MEDICAL | | | | | | CENTER | | + + + + + + | GIANT PLT | MERCHANDISING COORDINATOR | | [facility] | | | | | | A MEDICAL | | | | | | CENTER | | + + + + + + | SEDIMENTATI | 17 (H) | 1 - 15 MM/HR | [...] + + | [facility] | And | [place] [address] | | | [facility] | [facility] | | | + + + + + COMPLETE METABOLIC SET (NA,K,CL,CO2,BUN,CREAT,GLUC,CA,AST,ALT,BILI TOTAL,ALK PHOS,ALB,PROT TOTAL) (10/15/2009 9:35 AM PDT) + + + + + [...] + + + + | POTASSIUM, | 4.2 | 3.5 - 5.2 MEQ/L | [facility] [...] + + + + | GLUCOSE, | 111 (H) | 70 - 105 MG/DL | [facility] | | | PLASMA | | | A MEDICAL | | | (LAB) | | | CENTER | | + + + + + + | BUN, PLASMA | 18 | 8 - 30 MG/DL | [facility] | | | (LAB) | | | A MEDICAL | | | | | | CENTER | | + + + + + + | CREATININE | 0.61 (L) | 0.9 - 1.3 MG/DL | [facility] | | | PLASMA | | | A MEDICAL | | | (LAB) | | | CENTER | | + + + + + + | BUN/CREATIN | 29 (H) | 6 - 20 RATIO | [facility] | | | INE RATIO | | | A MEDICAL | | | | | | CENTER | | + + + + + + | CALCIUM, | 9.3 [...] + + + | ALT (SGPT) | 31 | 7 - 51 U/L | [facility] [...] + + + + | TOTAL | 6.3 (L) | 6.7 - 8.5 G/DL | [...] + + + + | BILIRUBIN | 0.5 [...] + + + | [facility] | [address] | [place] [address] | | | MEDICAL CENTER | Streets | | | + + + + + documented in this encounter Visit Diagnoses Not on filedocumented in this encounter"
--- OUTSIDE RECORDS SUMMARY | ~2019-04-25 | XMS | Encounter Summary ---
Demographics + + + | Address | [address] | | | [place] [address] | + + + | Home Phone | | + + + | Preferred Language | Unknown | + + + | Marital Status | Single | + + + | Congregation Affiliation | BAP | + + + [...] [place] | | | | | [address] | | + + + + + Care Team Providers + +------+ + | Care Scallop Binder Name | Role | Phone | + [...] | +--------+ + + + + | 03/30/ | Hospital | [facility] [address] | Willie Plunkett, | | | 2012 | Encounter | [address] | | | | | | [address] [facility] | | | | | | Paola Perez | | | | | | ([facility]) | | | | | | [place], [place] | | | | | | [address] | | | | | | [phone] | | | +--------+ + + + [...] | | | | | | | release(/DIANA) | | | | | | + + + +---------+ + + documented as of this encounter Plan of Treatment +--------+ + + + + | Date | Type | Specialty | Care Team | Description | +--------+ + + + + | 04/29/ | Diagnostic | Vitamin Manager | Marce Meyer | | | 2019 | Visit | | Eve Briseno [address] | | | | | | [address] | | | | | | [place], [place] | | | | | | [address] | | +--------+ + + + + [...] + + + | AILYN LAUGHLIN | [address] | [place], [place] | | | [facility] | [address] | [address] | | | TESTS | | | | + + + + + documented in this encounter Visit Diagnoses Not on filedocumented in this encounter
--- OUTSIDE RECORDS SUMMARY | ~2019-04-25 | XMS | Encounter Summary ---
Demographics + + + | Address | [address] | | | [place] [address] | + + + | Home Phone | | + + + | Preferred Language | Unknown | + + + | Marital Status | | + + + | Congregation Affiliation | Unknown | + + + | Race | Unknown | + + + | Ethnic Group | Unknown | + + + Author + + + | Author | [facility] | | | and [place] | + + + | Organization | [facility] | | | and [...] Team Providers + +------+ + | Care Cleaning Staff Supervisor Name | Role | Phone | + +------+ + | Maurice Zelaya MD | PCP | | + +------+ + Encounter Details +--------+ + + + + | Date | Type | Department | Care Team | Description | +--------+ + + + + | 02/16/ | Orders Only | [facility] | Provider, | Epilepsy without | | 2019 | | SYSTEM GENERIC OP | MD [address] | status epilepticus, | | | | CONVERSION [address] | [address] | not intractable | | | | [address] [place], [place] | [place] [address] | ([facility]); [employer] | | | | [address] | | symptomatic epilepsy | | | | [phone] | | w cmplx part sz, | | | | | | notintrac, wo status | | | | | | ([facility]) | +--------+ + + + + Social [...] | | 2018 | Visit | | [employer] | | | | | | [address] | | | | | | [place] [address] | | | | | | [phone] | | | | | | | | +--------+---------+ + + + | 07/13/ | Office | Pulmonology | Hua Garcia, | | | 2018 | Visit | | [address] | | | | | | [place] | | | | | | [address] | | | | | | | | +--------+---------+ + + + + +--------+ + + | Name | Priori | Associated Diagnoses | Order Schedule | | | ty | | | + +--------+ + + | Creatinine | Routin | Epilepsy without | Expected: | | | e | status epilepticus, | 04/20/2018, Expires: | | | | not intractable | 04/20/2019 | | | | (HCC) | | + +--------+ + + | Carbamazepine Level | Routin | Local[facility]rl[facility] | Expected: | | | e | symptomatic epilepsy | 01/11/2019, Expires: | | | | w cmplx part sz, | 01/12/2020 | | | | notintrac, wo status | | | | | (HCC) | | + +--------+ + + | Comprehensive Metabolic Panel | Routin | [facility] | Expected: | | | e | symptomatic epilepsy | 01/11/2019, Expires: | | | | w cmplx part sz, | 01/12/2020 | | | | notintrac, wo status | | | | | (HCC) | | + +--------+ + + | CBC with Differential | Routin | [facility] | Expected: | | | e | symptomatic epilepsy | 01/11/2019, Expires: | | | | w cmplx part sz, | 01/12/2020 | | | | notintrac, wo status | | | | | (HCC) | | + +--------+ + + documented as of this encounter Visit Diagnoses + + | Diagnosis | + + | Epilepsy without status epilepticus, not intractable (HCC) Unspecified epilepsy | | without mention of intractable epilepsy | + + | 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
--- OUTSIDE RECORDS SUMMARY | ~2019-04-25 | XMS | Encounter Summary ---
Demographics + + + | Address | [address] | | | [place] [address] | + + + | Home Phone | | + + + | Preferred Language | Unknown | + + + | Marital Status | Single | + + + | Religion Affiliation | BAP | + + + | Race | White | + + + | Ethnic Group | Not or | + + + Author + + + | Author | [facility] | + + + | Organization | [facility] | + + + | Address | Unknown | + + + | Phone | Unavailable | + + + Support + + + + + | Name | Relationship | Address | Phone | + + + + + | Margarito Owusu | ECON | [address] | | | | | [place] | | | | | [address] | | + + + + + Care Team Providers + +------+ + | Care Labelling Machine Operator Name | Role | Phone | + +------+ + | Deidre Card | PCP | | + +------+ + Encounter Details +--------+ + + + + | Date | Type | Department | Care Team | Description | +--------+ + + + + | 09/27/ | Office | [facility] | Note, [...] documented as of this encounter Progress Notes Stevie, Car Ferry Captain In - 04/06/2006 3:04 AM PDTCLINIC DATE: 09/27/2001 OTOLARYNGOLOGY CLINIC Edgar is seen postop for removal of a cholesteatoma and revision canal wall down tympanomastoidectomy. His outer packing was removed and the large amount of Gelfoam was aspirated. The ear appears to be clean and healing well. At this particular time, we will recheck him in 2 weeks unless he has any trouble. His course is quite satisfactory. Aamir Chan M.D. TONY / MALORIE [id number] / [id number] / [id number] / [id number] signed by Stevie, Car Ferry Captain In at 04/06/2006 3:04 AM PDTdoc umented in this encounter Plan of Treatment +--------+ + + + + | Date | Type | Specialty | Care Team | Description | +--------+ + + + + | 04/29/ | Diagnostic | Mulling Machine Operator | Marce Meyer | | | 2019 | Visit | | Eve Briseno [address] | | | | | | [address] | | | | | | [place] | | | | | | [address] | | +--------+ + + + + documented as of this encounter Visit Diagnoses Not on filedocumented in this encounter"
--- OUTSIDE RECORDS SUMMARY | ~2019-04-25 | XMS | Encounter Summary ---
Demographics + + + | Address | [address] | | | [place] [address] | + + + | Home Phone [...] [place] | | | | | [address] | | + + + + + Care Team Providers + +------+ + | Care Rotary Filter Operator Name | Role | Phone | + +------+ + | No Pcp Per Patient | PCP | Unavailable | + +------+ [...] | | | | | | | [place], [place] | | | | | | | [address] | | | | | | | Phone: | | | | | | | [phone] | | | | | | | Fax: | | | | | | | [phone] | +--------+--------+ + + + + Encounter Details +--------+---------+ + + + | Date | Type | Department | Care Team | Description | +--------+---------+ + + + | 03/09/ | Office | Digestive Health | Ayana Butler W, | Constipation | | 2012 | Visit | Center at [facility] [address] | MD [address] | (Primary Dx); | | | | [address] | [place], [place] | History of hernia | | | | Mailcode: Center | [address] | repair | | | | for Health and | [phone] | | | | | Healing, [address] | | | | | | [place], [place] | | | | | | [address] | | | | | | [phone] | | | +--------+---------+ + + + [...] + + + | Blood Pressure | 121/65 | 03/09/2013 2:55 PM | | | | | PDT | | + + + + + | Pulse | 95 | 03/09/2013 2:55 PM | | | | | PDT | | + + + + + | Temperature | 36.8 C (98.2 F) | 03/09/2013 2:55 PM | | | | | PDT | | + + + + + | Respiratory Rate | 18 | 03/09/2013 2:55 PM | | | | | PDT [...] encounter Progress Notes Ayana Butler MD - 03/09/2013 3:28 PM PDT03/09/2013 Blue surgery follow up visit Attnd; Ayana Butler MD ID: Edgar Marquez presents 8 months status post VHR. Current concerns include: small wound at midline scar draining clear yellow fluid. Pt denies: fever, chills, vomiting, has been feeling well. Complains of constipation Has recently quit smoking. HPI: Edgar Marquez is a 47 yo man status post VHR 07/2012 with postoperative infected seroma formation s/p IR drainage 08/2012 who subsequently re-accumulated a seroma which he l anced himself and had formally I&D'd in our clinic. Cultures taken at that time were negativ e. At his last visit, he complained of fatigue, low grade temperatures and nausea. He also c omplained of continued drainage from his wound. He noted a small bulge of skin at the upper left side of his abdomen that is not any larger than at last visit and is not causing him an y problems. Today he complains of a new wound 1cm in size in his midline wound. He had blee ding first and then clear yellow fluid drained. He has no fevers or vomiting, +nausea (usua l), +constipation. Physical exam: BP 121/65 | Pulse 95 | Temp (Src) 36.8 C (98.2 F) (Oral) | RR 18 General appearance: healthy, alert, cooperative and smiling Lungs: wheezing with I and E GI: rounded, obese, possible small recurrence of the LUQ fascial edge and 1cm excoriated sk in that is shallow and healthy appearing, no purulence or erythema, no tracking. Assessment: The patient is a 47 yo man with constipation, possibly a small asymptomatic VH recurrence and a superficial wound on his abdomen. Plan: Encouraged smoking cessation. Wound care with bacitracin and Patient will follow up PRN. Would not consider repairing small possible hernia without smoking cessation for 4 wks. As it is currently asymptomatic no indication for intervention at this time. Provided Rx senna, MOM prn constipation Ayana Butler MD Senior Corporate Recruiter Division of General and Gastrointestinal Surgery Department of Surgery, [id number] [facility] [address] documented in this en counter Plan of Treatment +--------+ + + + + | Date | Type | Specialty | Care Team | Description | +--------+ + + + + | 04/29/ | Diagnostic | Minilab Operator | Marce Meyer | | | 2018 | Visit | | Eve Briseno [address] | | | | | | [address] | | | | | | [place], [place] | | | | | | [address] | | +--------+ + + + + documented as of this encounter Visit Diagnoses + + | Diagnosis | + + | Constipation - Primary | + + | History of hernia repair Other postprocedural status | + + documented in this encounter"
--- OUTSIDE RECORDS SUMMARY | ~2019-04-25 | XMS | Encounter Summary ---
Demographics + + + | Address | [address] | | | [place] [address] | + + + | Home Phone [...] [place] | | | | | [address] | | + + + + + Care Team Providers + +------+ + | Care Executive Advisor Name | Role | Phone | + +------+ + | Jaison Chávez MD | PCP | | + +------+ + Reason for Visit + + + | Reason | Comments | + + + | Pre-op evaluation | | + + + Encounter Details +--------+---------+ + + + | Date | Type | Department | Care Team | Description | +--------+---------+ + + + | 12/06/ | Office | Otolaryngology | Willie Plunkett, | Cholesteatoma of ear | | 2014 | Visit | Otology Services at | | (Primary Dx) | | | | [facility] [address] [facility] | | | | | | [address] | | | | | | Mailcode: [address] | | | | | | Physician's Chris | | | | | | [place], [place] | | | | | | [address] | | | | | | [phone] | | | +--------+---------+ + + + [...] encounter Progress Notes Willie Plunkett MD - 12/06/2013 2:18 PM PDTFormatting of this note might be different fro harlan the original. Otology-Neurotology Pre-op Note PATIENT: Edgar Marquez [facility] MR#: [id number] DATE OF SERVICE: 12/06/2013 Procedure: Right revision CWD mastoidectomy HPI: Edgar Marquez is a 48 y.o. male who presents for preoperative visit prior to t he above procedure. He is s/p right CWD mastoidectomy with scar band and recurrent cholestea reta. He also has a left CI. He was scheduled for surgery last March but was cancelled due to poor control of his COPD. He has stopped smoking as of June 13, 2013. He has h is pre-op visit with anesthesia today. He has bilateral profound SNHL and chronic disequilibrium. He still has significant foul sm elling otorrhea on the right. There have otherwise been no significant changes since the last visit on 03/23/13. Please see this last note for full details of the history. Past Medical History Diagnosis Date Heart attack [...] Rectal fissure SUSAN (obstructive sleep apnea) 03/28/2008 Other general symptoms Unspecified hearing loss COPD (chronic obstructive pulmonary disease) oxygen dependent Past Surgical History Procedure Date Pr sinus surgery proc unlisted 2006 Abdominal hernia repair 14 stomach surgery Cochlear implant Current outpatient prescriptions:albuterol 90 mcg/actuation Inhalation HFA Aerosol Inhaler, Inhale every four hours as needed., Disp: , Rfl: Aspirin 81 mg Oral tablet, Take 1 Tab by mouth once daily., Disp: 90 Tab, Rfl: 3 CALCIUM CARBONATE (TUMS 500 ORAL), Take by mouth., Disp: , Rfl: carBAMazepine 200 mg Oral tablet, Take 200 mg by mouth two times daily. One tablet in AM an d two tablets in the afternoon, Disp: , Rfl: cyclobenzaprine (FLEXERIL) 10 mg Oral tablet, Take 10 mg by mouth three times daily as need ed. Do not use longer than 2-3 weeks. , Disp: , Rfl: docusate sodium (COLACE) 100 mg Oral capsule, Take 1 Cap by mouth two times daily., Disp: 1 20 Cap, Rfl: 3 fluticasone-salmeterol 250-50 mcg/dose Inhalation Disk with Device, Inhale 1 Puff two times daily. , Disp: , Rfl: furosemide 20 mg Oral tablet, Take 20 mg by mouth once daily. 1/2 tab twice a day, Disp: , Rfl: hydrochlorothiazide 25 mg Oral tablet, Take 25 mg by mouth once daily. , Disp: , Rfl: HYDROcodone-acetaminophen 5-325 mg Oral tablet, Take 1 tablet by mouth every four hours as needed. Not to exceed 10 tablets per any 24 hour period. (Not to exceed 3250 mg of acetamino phen from all products per 24 hour period.), Disp: , Rfl: levothyroxine 25 mcg Oral tablet, Take 25 mcg by mouth before breakfast. , Disp: , Rfl: LORazepam (ATIVAN) 2 mg Oral tablet, Take 2 mg by mouth every four hours as needed. , Disp : , Rfl: lurasidone (LATUDA) 40 mg Oral tablet, Take by mouth once daily., Disp: , Rfl: magnesium hydroxide (KOCH MILK OF MAGNESIA) 400 mg/5 mL Oral Suspension, Take 30 mL by mouth once daily as needed., Disp: 360 mL, Rfl: 2 metFORMIN 500 mg Oral tablet, Take 1,000 mg by mouth once daily., Disp: , Rfl: mirtazapine 30 mg oral tablet, Take 30 mg by mouth once daily in the evening., Disp: , Rfl: Mometasone 110 mcg (30 doses) Inhalation Aerosol Powdr Breath Activated, Inhale. , Disp: , Rfl: omeprazole (PRILOSEC) 20 mg Oral capsule,delayed release(DR/EC), Take 20 mg by mouth once d aily. , Disp: , Rfl: polyethylene glycol (MIRALAX) 17 gram/dose Oral Powder, Take 17 g by mouth once daily., Dis p: 255 g, Rfl: 2 polyethylene glycol 17 gram/dose Oral Powder, Take 17 g by mouth two times daily., Disp: 52 7 g, Rfl: 3 prazosin 5 mg Oral capsule, Take 5 mg by mouth once daily., Disp: , Rfl: prochlorperazine 5 mg Oral tablet, Take 1 Tab by mouth every six hours as needed for nausea /vomiting. Max dose: 40 mg/day, Disp: 30 Tab, Rfl: 0 propranolol 40 mg Oral tablet, Take 40 mg by mouth two times daily., Disp: , Rfl: senna-docusate (SENNA LAXATIVE) 8.6-50 mg Oral tablet, Take 1 Tab by mouth two times daily. , Disp: 60 Tab, Rfl: 3 tiotropium 18 mcg Inhalation capsule, w/inhalation device, Inhale 18 mcg once daily. , Dis p: , Rfl: topiramate 25 mg Oral tablet, Take 25 mg by mouth once daily at bedtime., Disp: , Rfl: traMADol 50 mg Oral tablet, Take 50 mg by mouth every six hours as needed. , Disp: , Rfl: trimethoprim-sulfamethoxazole (BACTRIM DS) 160-800 mg Oral tablet, Take 1 Tab by mouth two times daily., Disp: 42 Tab, Rfl: 0 Morphine and Penicillins Exam: Filed Vitals: 12/06/2013 1:57 PM PainSc: 01 - None to Mild General: Well developed, well nourished, Speech is intact. In wheelchair Neuro: Awake, alert, oriented x3, Facial Nerve function on Right: HB 1/6 Left: HB 1/6 Psych: Appropriate. Face: Normal facial contour, normal facial nerve function Eyes: Vision grossly intact, EOMI Ears: AD: Normal external anatomy,dry but has as posterior scar band and cholesteatoma debris wi th drainage behind the scar band. TM clear, intact without effusion : Normal external anatomy, left CI in place Resp: Increased work of breathing Assessment: Edgar Marquez is a 48 y.o. male indicated for right revision CWD mastoid ectomy on 12/22/13 Recommendation(s). - He will see [facility] today for preop clearance - to [place] for above procedure on 12/22 -PARQ held regarding procedure, all questions answered, consent signed -postop prescriptions provided Seen and evaluated with Dr. Willie Plunkett. This note was scribed by MARY Ruiz MD Interventional Radiologist Otology, Neurotology & Skull Base Surgery documented in this en counter Plan of Treatment +--------+ + + + + | Date | Type | Specialty | Care Team | Description | +--------+ + + + + | 04/29/ | Diagnostic | Loop Cutter | Marce Meyer | | | 2018 | Visit | | Eve Briseno [address] [facility] | | | | | | [address] | | | | | | [place], [place] | | | | | | [address] | | +--------+ + + + + documented as of this encounter Visit Diagnoses + + | Diagnosis | + + | Cholesteatoma of ear - Primary Cholesteatoma, unspecified | + + documented in this encounter"
--- OUTSIDE RECORDS SUMMARY | ~2019-04-25 | XMS | Encounter Summary ---
Demographics + + + | Address | [address] | | | [place] [address] | + + + | Home Phone | | + + + | Preferred Language | Unknown | + + + | Marital Status | Single | + + + | Mu-Ism Affiliation | BAP | + + + [...] [place] | | | | | [address] | | + + + + + Care Team Providers + +------+ + | Care Animal Warden Name | Role | Phone | + +------+ + | Cee Triana MD | PCP | Unavailable | + +------+ + Encounter Details +--------+ + + + + | Date | Type | Department | Care Team | Description | +--------+ + + + + | 10/07/ | Telephone | Digestive Health | Ayana Butler W, | | | 2012 | | [facility] [address] | [address] | | | | | [place] | [facility] [place] | | | | | Mailcode: [place] | [address] | | | | | for Health and | [phone] | | | | | [facility] [address] | | | | | | [place], [place] | | | | | | [address] | | | | | | [phone] | | | +--------+ + + + [...] + + | 04/29/ | Diagnostic | Cerner Analyst | Marce Meyer | | | 2019 | Visit | | Eve Briseno [address] [place] [address] | | | | | | [address] | | | | | | [place] | | | | | | [address] | | +--------+ + + + + documented as of this encounter Visit Diagnoses Not on filedocumented in this encounter"
--- OUTSIDE RECORDS SUMMARY | ~2019-04-25 | XMS | Encounter Summary ---
Demographics + + + | Address | [address] | | | [place] [address] | + + + | Home Phone | | + + + | Preferred Language | Unknown | + + + | Marital Status | Single | + + + | Voodoo Affiliation | BAP | + + + [...] [place] | | | | | [address] | | + + + + + Care Team Providers + +------+ + | Care Harbor Police Launch Commander Name | Role | Phone | + +------+ + | Maurice Zelaya MD | PCP | | + +------+ + Reason for Visit + + + | Reason | Comments | + + + | Hearing loss | Re-establishing care | + + + Encounter Details +--------+ + + + + | Date | Type | Department | Care Team | Description | +--------+ + + + + | 03/09/ | Diagnostic | Otolaryngology | Marce Meyer | Hearing loss | | 2019 | Visit | Audiology Services | K, AuD [address] | (Re-establishing | | | | at [facility] [address] | [address] | care) | | | | [address] | [place], [place] | | | | | Mailcode: [address] | [address] | | | | | Physician's [address] | | | | | | [place], [place] | | | | | | [address] | | | | | | [phone] | | | +--------+ + + + [...] documented as of this encounter Progress Notes Marce Meyer AuD - 03/09/2019 8:30 AM PDTLASU Cochlear Implant Program Name: Edgar Marquez : 1965 Date of Visit: 03/09/2019 Interval: Re-establishing care Participants: Mr. Marquez CI: Left BERG: Right Tab Builder: Cochlear External/Internal: N5 (currently using backup Sprint body-worn)/N24 Magnet: 4x Cochlear Implant Programming Summary Background/Medical History: Edgar Harshal [place], 53 y.o., was seen by [facility] Audiology to re-establish care with this cl inic. Mr. Marquez received his Cochlear N24(CS) cochlear implant system at [facility] in 2003. Kp rupa was performed by Dr. Chan and the the cochlear implant was initially activated on 05/14/2004. Mr. Marquez was last seen for programming adjustments at [facility] in 2011. Mr. Melita dillon was utilizing an N5 processor on his LEFT ear. The patient arrived at clinic today without an appointment and was seen on a walk-in basis in a 45 min slot. Due to time constraints aided testing and programming had to be deferred. Today, Mr. Marquez reported: -The N5 processor stopped working last month (lights on but no sound) -Has been using body-worn -Not hearing well -Missing sounds from behind and the side -Speech clarity poor Equipment: Visual inspection confirmed patient report that processor was powering on but no sound was being transmitted. A listening check was performed revealing adequate sound amplification. M ic filers replace. RF wand confirmed coil function. Patient still reported no sound from pro cessor. Tried troubleshooting with clinic cable and coil. Patient reported "heairng chirping " but no speech. Attempted to connect processor to computer but device would not connect. Upgrade order form completed and uploaded to environmental remediation consultant. Patient selected N7 in black wi th 2 standard RCB, 1 MM2+, Aquakit, Snugfit, and 3" cables (using longer cables with N5 pres ently) Impressions/Recommendations: The patient's N5 processor is nonfunctional and [id number]. An LMN was written and sen t to Cochlear on patient's behalf along with upgrade order form explaining medical necessity of replacing his device. Patient provided info on the upgrade process. Instructed him to co ntact Cochlear directly to initiate upgrade and contact [facility] before his April appt if he h as NOT received the upgrade equipment. Mr. Marquez is currently scheduled for CI milestone on 04/29/2019. If there are any questions or comments regarding the results and recommendations of this ev aluation, please do not hesitate to contact me at . Edelmira Palacios, SREEDHAR Certified Clinical Public Relations Counselor [place] [employer] Certified [facility] Department of Otolaryngology Audiology Services [address], [address] [place] [address] documented in thi s encounter Plan of Treatment +--------+ + + + + | Date | Type | Specialty | Care Team | Description | +--------+ + + + + | 04/29/ | Diagnostic | Public Relations Counselor | Marce Meyer | | | 2018 | Visit | | Eve Briseno [address] [facility] [address] [facility] [address] | | | | | | [address] | | | | | | [place], [place] | | | | | | [address] | | +--------+ + + + + documented as of this encounter Visit Diagnoses + + | Diagnosis | + + | Sensorineural hearing loss (SNHL) of both ears - Primary | + + documented in this encounter
--- OUTSIDE RECORDS SUMMARY | ~2019-04-25 | XMS | Encounter Summary ---
Demographics + + + | Address | [address] | | | [place] [address] | + + + | Home Phone | | + + + | Preferred Language | Unknown | + + + | Marital Status | Single | + + + | Tenriism Affiliation | BAP | + + + | Race | White | + + + | Ethnic Group | Not or | + + + Author + + + | Author | [facility] | + + + | Organization | [facility] | + + + | Address | Unknown | + + + | Phone | Unavailable | + + + Support + + + + + | Name | Relationship | Address | Phone | + + + + + | Margarito Owusu | ECON | [address] | | | | | [place] | | | | | [address] | | + + + + + Care Team Providers + +------+ + | Care Dance Hall Host/Hostess Name | Role | Phone | + +------+ + | Cee Triana MD | PCP | Unavailable | + +------+ + Reason for Visit + + + | Reason | Comments | + + + | Refill Request | 10/06/12 | + + + Encounter Details +--------+--------+ + + + | Date | Type | Department | Care Team | Description | +--------+--------+ + + + | 12/30/ | Refill | Digestive Health | Ayana Butler, | Refill Request | | 2012 | | Center at [facility] [address] | MD [address] | (10/06/12) | | | | [address] | [place], [place] | | | | | Mailcode: [place] | [address] | | | | | for Health and | [phone] | | | | | [facility] | | | | | | [place], [place] | | | | | | [address] | | | | | | [phone] | | | +--------+--------+ + + + Social History + + [...] + + | 04/29/ | Diagnostic | Building Trades Teacher | Marce Meyer | | | 2019 | Visit | | Eve Briseno [address] | | | | | | [address] | | | | | | [place] | | | | | | [address] | | +--------+ + + + + documented as of this encounter Visit Diagnoses Not on filedocumented in this encounter"
--- OUTSIDE RECORDS SUMMARY | ~2019-04-25 | XMS | Encounter Summary ---
Demographics + + + | Address | [address] | | | [place] [address] | + + + | Home Phone | | + + + | Preferred Language | Unknown | + + + | Marital Status | Single | + + + | Jain Affiliation | BAP | + + + | Race | White | + + + | Ethnic Group | Not or | + + + Author + + + | Author | [facility] | + + + | Organization | [facility] | + + + | Address | Unknown | + + + | Phone | Unavailable | + + + Support + + + + + | Name | Relationship | Address | Phone | + + + + + | Margarito Owusu | ECON | [address] | | | | | [place] | | | | | [address] | | + + + + + Care Team Providers + +------+ + | Care Retail And Restaurant Associate Name | Role | Phone | + +------+ + | Maurice Zelaya MD | PCP | | + +------+ + Reason for Visit + + + | Reason | Comments | + + + | Blood Test Results | | + + + Encounter Details +--------+ + + + + | Date | Type | Department | Care Team | Description | +--------+ + + + + | 09/16/ | Abstract | Digestive Health | Luke Ayana W, | Blood Test Results | | 2017 | | Center at [facility] [address] | MD [address] | | | | | [address] | | | | | | Mailcode: [place] | [address] | | | | | for Health and | [phone] | | | | | [facility] [address] | | | | | | [place], [place] | | | | | | [address] | | | | | | [phone] | | | +--------+ + + + [...] + + | 04/29/ | Diagnostic | Department Specialist | Marce Meyer | | | 2019 | Visit | | Eve Briseno [address] | | | | | | [address] | | | | | | [place], [place] | | | | | | [address] | | +--------+ + + + + documented as of this encounter Visit Diagnoses Not on filedocumented in this encounter"
--- OUTSIDE RECORDS SUMMARY | ~2019-04-25 | XMS | Encounter Summary ---
Demographics + + + | Address | [address] | | | [place] [address] | + + + | Home Phone [...] [place] | | | | | [address] | | + + + + + Care Team Providers + +------+ + | Care King Maker Name | Role | Phone | + +------+ + | Ender Wagoner MD | PCP | | + +------+ + Reason for Visit + + + | Reason | Comments | + + + | Hearing loss | Scottie -Fed-Ex Confirmation: | + + + Encounter Details +--------+ + + + + | Date | Type | Department | Care Team | Description | +--------+ + + + + | 07/03/ | Documentati | Otolaryngology | Pascual Pace, | Hearing loss (Scottie | | 2010 | on | Cochlear Services | STEPHANIE Sewell [address] | -Fed-Ex | | | | [address] | Confirmation:) | | | | [address] Mailcode: | [address] [place], [place] | | | | | [address] Physician's | [id number] | | | | | [place], | | | | | | [place] [address] | | | | | | [phone] | | | +--------+ + + + [...] + | 04/29/ | Diagnostic | Nut Sorter Operator | Marce Meyer | | | 2018 | Visit | | Eve Briseno [address] [facility] [facility] | | | | | | [address] | | | | | | [place], [place] | | | | | | [address] | | +--------+ + + + + documented as of this encounter Visit Diagnoses Not on filedocumented in this encounter"
--- OUTSIDE RECORDS SUMMARY | ~2019-04-25 | XMS | Encounter Summary ---
Demographics + + + | Address | [address] | | | [place] [address] | + + + | Home Phone [...] [place] | | | | | [address] | | + + + + + Care Team Providers + +------+ + | Care Silk Winding Machine Operator Name | Role | Phone | + +------+ + | Maurice Zelaya MD | PCP | | + +------+ + Encounter Details +--------+ + + + + | Date | Type | Department | Care Team | Description | +--------+ + + + + | 12/02/ | Ancillary | Registration [address] | Jose Franco, | | | 2005 | Registratio | [address] | [address] [place] [address] | | | | [address] | [address] Mailcode: [address] | [address] [place] | | | | | [place], [place] | [place] [address] | | | | | [address] | [phone] | | | | | [phone] | (Fax) | | +--------+ + + + + [...] + + | 04/29/ | Diagnostic | Detective Private Eye | Marce Meyer | | | 2019 | Visit | | Eve Briseno [address] [facility] | | | | | | [address] | | | | | | [place], [place] | | | | | | [address] | | +--------+ + + + + documented as of this encounter Visit Diagnoses Not on filedocumented in this encounter"
--- OUTSIDE RECORDS SUMMARY | ~2019-04-25 | XMS | Encounter Summary ---
Demographics + + + | Address | [address] | | | [place] [address] | + + + | Home Phone | | + + + | Preferred Language | Unknown | + + + | Marital Status | Single | + + + | Mormonism Affiliation | BAP | + + + [...] [place] | | | | | [address] | | + + + + + Care Team Providers + +------+ + | Care Conditioning Yard Supervisor Name | Role | Phone | + +------+ + | Jaison Chávez MD | PCP | | + +------+ + Encounter Details +--------+ + + + + | Date | Type | Department | Care Team | Description | +--------+ + + + + | 03/01/ | Documentati | Otolaryngology | Mahnaz Chávez, | | | 2013 | on | Cochlear Services | [facility] [address] | | | | | [address] | [address] | | | | | Toya Spencer Mailcode: | [place], [place] | | | | | [address] Physician's | [address] | | | | | [place], | | | | | | [place] [address] | | | | | | [phone] | | | +--------+ + + + [...] + + | 04/29/ | Diagnostic | Door Maker | Marce Meyer | | | 2019 | Visit | | Eve Briseno [address] | | | | | | [address] | | | | | | [place], [place] | | | | | | [address] | | +--------+ + + + + documented as of this encounter Visit Diagnoses Not on filedocumented in this encounter"
--- OUTSIDE RECORDS SUMMARY | ~2019-04-25 | XMS | Encounter Summary ---
Demographics + + + | Address | [address] | | | [place] [address] | + + + | Home Phone | | + + + | Preferred Language | Unknown | + + + | Marital Status | Single | + + + | Scientology Affiliation | BAP | + + + | Race | White | + + + | Ethnic Group | Not or | + + + Author + + + | Author | [facility] | + + + | Organization | [facility] | + + + | Address | Unknown | + + + | Phone | Unavailable | + + + Support + + + + + | Name | Relationship | Address | Phone | + + + + + | Margarito Owusu | ECON | [address] | | | | | [place] | | | | | [address] | | + + + + + Care Team Providers + +------+ + | Care Management Planner Name | Role | Phone | + [...] Description | +--------+---------+ + + + | 01/11/ | Office | Otolaryngology | Solange Stallworth, | Mastoiditis (Primary | | 2013 | Visit | Otology Services at | PA-C [address] | Dx); Post | | | | [facility] [address] | [address] | mastoidectomy | | | | [address] | [place], [place] | sequelae; | | | | Mailcode: PV01 | [phone] | Cholesteatoma of | | | | [facility] | [phone] | middle ear and | | | | [place], [place] | | mastoid(385.33); | | | | [address] | | Cochlear implant in | | | | [phone] | | place | +--------+---------+ + + + Social History [...] + + + | Blood Pressure | - | - | | + + + + + | Pulse | - | - | | + + + + + | Temperature | 36.2 C (97.2 F) | 01/11/2014 3:50 PM | | | | | PDT [...] in this encounter Patient Instructions Patient Instructions Solange Stallworth PA-C - 01/11/2014 5:14 PM PDT-Continue using your c iprodex drops -Continue to keep your ear dry -Start taking the Levaquin (oral antibiotic) - Start taking Ketorolac (for pain and inflammation) - Keep your appointment with Dr Plunkett on Thursday You can reach the concrete conveyor operator doctor at any time by calling our number Electronic ally signed by Solange Stallworth PA-C at 01/11/2014 5:20 PM PDT documented in this encounter Progress Notes Solange Stallworth PA-C - 01/11/2014 4:19 PM PDT NEUROTOLOGY CLINIC FOLLOW-UP NOTE Chief Complaint Patient presents with Postoperative Check Right revision canal wall down mastoidectomy 12/22/13 SUBJECTIVE:Edgar Marquez is a 48 y.o. male here today on an urgent basis. He called yesterday reporting severe pain and was unable to wait until his postop appointment with Dr Plunkett next Thursday and Dr Plunkett is out of town this week. Since immediately after surgery, he has been experiencing severe pain in his right ear, beh ind ear, head, jaw, behind right eye. "Feels like someone beat me up with a club". This has been getting progressively worse. Unable to sleep, unable to lay on right side of head. Lots of foul smelling drainage from ear. No drainage from postauricular incision. No fevers . Has been using the ciprofloxacin and dexamethasone gtts that Dr Plunkett called in last week. Completed 5 day course of clindamycin after surgery.Uses Medical marijuana for chronic pain with back, legs. Does not typically take narcotic pain meds. Has been taking 7.5 mg norco - not helping much and he is almost out. He also has a Left CI - [...] tablet in AM and two tablets in th e afternoon ciprofloxacin 0.3 % ophthalmic drops Instill 2 drops into the right ear two times daily . cyclobenzaprine (FLEXERIL) 10 mg Oral tablet Take [...] mg by mouth once daily. HYDROcodone-acetaminophen (NORCO) 5-325 mg oral tablet Take 1-2 tablets by mouth every four hours as needed for moderate pain or severe pain. Not to exceed 3250 mg of acetaminophe n from all products per 24 hour period. HYDROcodone-acetaminophen 5-500 mg oral tablet Take 1 tablet by mouth every six hours a s needed. Not to exceed 3250 mg of acetaminophen from all products per 24 hour period. insulin glargine 100 unit/mL subcutaneous solution Inject 14 Units under the skin (SUBC ) once daily at bedtime. ipratropium 0.02 % inhalation solution Inhale three times daily. levothyroxine 25 mcg Oral tablet Take 25 mcg by mouth before breakfast. lisinopril 40 mg oral tablet Take 40 mg by mouth once daily. LORazepam (ATIVAN) 2 mg Oral tablet Take 2 mg by mouth every four hours as needed. lurasidone (LATUDA) 40 mg Oral tablet Take by mouth once daily. magnesium hydroxide (KOCH MILK OF Nimbus Data) 400 mg/5 mL Oral Suspension Take 30 [...] Morphine Psychosis? Penicillins Rash OBJECTIVE: Filed Vitals: 01/11/2014 3:50 PM Temp: 36.2 C (97.2 F) PainSc: 10 - Worst Possible Pain PainLoc: Ear (Right) GEN:Alert and oriented, very uncomfortable, in wheelchair. HEENT: Face/Scalp: Eyes:PERRLA and EOM's intact Ears: Left CI Right: Post auricular incision C/D/I and healing well. Significant tenderness with palpatio n in this area but no edema, drainage, erythema or fluctuance. EAC with wide meatus. Copious foul smelling purulent drainage was partially removed with microsuction and swab to the deg ree he was able to tolerate. Small area of granulation tissue within the posterior aspect of the mastoid bowl. Cranial Nerves:Facial movement and sensation intact ASSESSMENT: Edgar Hawkins a 48 year old male 3 weeks s/p right revision canal wall down m astoidectomy with severe pain and suspected post-op infection of mastoid cavity. Left cochlear implant- no concerns. PLAN: Patient also seen and examined by Dr Diamond Michaud. He has a post-surgical infection wit h granulation tissue in mastoid cavity. He recommends Rx for Lovenox, ketorolac, continue ci prodex, refill norco 7.5mg. He will continue to keep water out of his ear. He has an appointment with Dr Plunkett on Wednesday 01/17 and will follow up at that visit. He will call on-call MD or go to ED with new or worsening symptoms. 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
--- OUTSIDE RECORDS SUMMARY | ~2019-04-25 | XMS | Encounter Summary ---
Demographics + + + | Address | [address] | | | [place] [address] | + + + | Home Phone | | + + + | Preferred Language | Unknown | + + + | Marital Status | Single | + + + | Worship Affiliation | BAP | + + + | Race | White | + + + | Ethnic Group | Not or | + + + Author + + + | Author | [facility] | + + + | Organization | [facility] | + + + | Address | Unknown | + + + | Phone | Unavailable | + + + Support + + + + + | Name | Relationship | Address | Phone | + + + + + | Margarito Owusu | ECON | [address] | | | | | [place] | | | | | [address] | | + + + + + Care Team Providers + +------+ + | Care Composer Teaching Artist Name | Role | Phone | + +------+ + | Jaison Chávez MD | PCP | | + +------+ + Encounter Details +--------+ + + + + | Date | Type | Department | Care Team | Description | +--------+ + + + + | 11/13/ | Results | NON-[facility] EPIC | Omari [...] + + | 04/29/ | Diagnostic | Assistant Center Manager | Marce Meyer | | | 2019 | Visit | | Eve Briseno [address] | | | | | | [address] | | | | | | [place], [place] | | | | | | [address] | | +--------+ + + + + documented as of this encounter Procedures + +--------+ + + + | Procedure Name | Priori | Date/Time | Associated Diagnosis | Comments | | | ty | | | | + +--------+ + + + | CBC W/DIFF, REFLEX | Routin | 11/13/2009 | | Results for this | | | e | 10:08 AM | | procedure are in the | | | | PDT | | results section. | + +--------+ + + + | COMPLETE METABOLIC | Routin | 11/13/2009 | | Results for this | | SET | e | 10:08 AM | | procedure are in the | | (NA,K,CL,CO2,BUN,CRE | | PDT | | results section. | | AT,GLUC,CA,AST,ALT,B | | | | | | TERRY TOTAL,ALK | | | | | | PHOS,ALB,PROT TOTAL) | | | | | + +--------+ + + + | C-REACTIVE PROTEIN | Routin | 11/13/2009 | | Results for this | | | e | 10:08 AM | | procedure are in the | | | | PDT | | results section. | + +--------+ + + + documented in this encounter Results C-REACTIVE PROTEIN (11/13/2009 10:08 AM PDT) + + + + + + | Component | Value | Ref Range | Performed | Pathologist | | | | | At | Signature | + + + + + + | C-REACTIVE | 2.57 (H)Comment: Test | <0.80 mg/dL | [facility] | | | PROTEIN | performed at [facility] | | [facility] | | | | [id number] | | [facility] | | | | [address] | | | | | [address], | | | | | | [place] [address] | | | | | | : ASHLEY HORTON MD | | | | + + + + + + + + | Specimen | + + | | + + + + + + + | Performing | Address | City/State/Zipcode | Phone Number | | Organization | | | | + + + + + | [facility] | [address] | [place] [address] | [phone] | | [facility] | | | | + + + + + | [facility] | | | | | [facility] | | | | + + + + + CBC W/DIFF, REFLEX (11/13/2009 10:08 AM PDT) + + + + + + | Component | Value | Ref Range | Performed | Pathologist | | | | | At | Signature | + + + + + + | WHITE BLOOD | 8.1 | 4.3 - 11.0 X10 | [facility] [...] + + + | RED BLOOD | 3.55 (L) | 4.7 - 6.1 X10 | [facility] | | | CELL COUNT | | 6/uL | A MEDICAL | | | | | | CENTER | | + + + + + + | HEMATOCRIT | 31.1 (L) | 40.0 - 54.0 % | [facility] | | | | | | A MEDICAL | | | | | | CENTER | | + + + + + + | MCV | 87.4 | 82 - 100 fl | [facility] [...] + + + + | MCHC | 35.6 | 32 - 36 g/dL | [facility] | | | | | | A MEDICAL | | | | | | CENTER | | + + + + + + | RDW | 14.9 | 12 - 15 fL | [facility] | | | | | | A MEDICAL | | | | | | CENTER | | + + + + + + | PLATELET | 180 | 150 - 450 X10 3 | [facility] | | | COUNT | | | A MEDICAL | | | | | | CENTER | | + + + + + + | MPV | 7.2 (L) | 9.0 - 12.0 fL | [facility] | | | | | | A MEDICAL | | | | | | CENTER | | + + + + + + | NEUTROPHIL | 75.4 | 40 - 80 % | [facility] | | | % | | | A MEDICAL | | | | | | CENTER | | + + + + + + | LYMPHOCYTE | 10.7 (L) | 20 - 50 % | [facility] | | | % | | | A MEDICAL | | | | | | CENTER | | + + + + + + | EOS % | 5.0 | 0 - 5 % | [facility] [...] + + + | MONOCYTE % | 8.5 | 2 - 10 % | [facility] | | | | | | A MEDICAL | | | | | | CENTER | | + + + + + + | BANDS % | NEEDLE POLISHER | 0 - 7 % | [facility] | | | | | | A MEDICAL | | | | | | CENTER | | + + + + + + | SEDIMENTATI | 53 (H) | 1 - 15 MM/HR | [facility] | | | ON RATE | | [...] [facility] | [facility] [place] | [place] [address] | | | MEDICAL CENTER | Streets | | | + + + + + COMPLETE METABOLIC SET (NA,K,CL,CO2,BUN,CREAT,GLUC,CA,AST,ALT,BILI TOTAL,ALK PHOS,ALB,PROT TOTAL) (11/13/2009 10:08 AM PDT) + +---------+ + + + | Component | Value | Ref Range | Performed | Pathologist | | | | | At | Signature | + +---------+ + + + | SODIUM, | 139 [...] +---------+ + + + | CO2 | 24 | 22 - 28 MEQ/L | [facility] | | | | | | A MEDICAL | | | | | | CENTER | | + +---------+ + + + | CHLORIDE, | 103 | 98 - 106 MEQ/L | [facility] | | | PLASMA | | | A MEDICAL | | | (LAB) | | | CENTER | | + +---------+ + + + | GLUCOSE, | 83 | 70 - 105 MG/DL | [facility] | | | PLASMA | | | A MEDICAL | | | (LAB) | | | CENTER | | + +---------+ + + + | BUN, PLASMA | 19 | 8 - 30 MG/DL | [facility] | | | (LAB) | | | A MEDICAL | | | | | | CENTER | | + +---------+ + + + | CREATININE | 0.94 | 0.9 - 1.3 MG/DL | [facility] | | | PLASMA | | | A MEDICAL | | | (LAB) | | | CENTER | | + +---------+ + + + | BUN/CREATIN | 20 | 6 - 20 RATIO | [facility] | | | INE RATIO | | | A MEDICAL | | | | | | CENTER | | + +---------+ + + + | CALCIUM, | 8.7 | 8.5 - 10.8 | [facility] | | | PLASMA | | MG/DL | A MEDICAL | | | (LAB) | | | CENTER | | + +---------+ + + + | AST(SGOT) | 19 | 10 - 41 U/L | [facility] | | | | | | A MEDICAL | | | | | | CENTER | | + +---------+ + + + | ALT (SGPT) | 18 | 7 - 51 U/L | [facility] | | | | | | A MEDICAL | | | | | | CENTER | | + +---------+ + + + | ALK PHOS | 72 | 40 - 180 U/L | [facility] | | | | | | A MEDICAL | | | | | | CENTER | | + +---------+ + + + | TOTAL | 6.4 (L) | 6.7 - 8.5 G/DL | [facility] | | | PROTEIN, | | | A MEDICAL | | | PLASMA | | | CENTER | | | (LAB) | | | | | + +---------+ + + + | ALBUMIN, | 3.6 | 3.5 - 5.0 G/DL | [facility] | | | PLASMA | | | A MEDICAL | | | (LAB) | | | CENTER | | + +---------+ + + + | BILIRUBIN | 0.3 [...] + | [facility] | [place] | [place] [address] | | | MEDICAL CENTER | Streets | | | + + + + + documented in this encounter Visit Diagnoses Not on filedocumented in this encounter"
--- OUTSIDE RECORDS SUMMARY | ~2019-04-25 | XMS | Encounter Summary ---
Demographics + + + | Address | [address] | | | [place] [address] [...] | Margarito Owusu | ECON | [address] | | | | | [place] | | | | | [address] | | + + + + + Care Team Providers + +------+ + | Care Ticker Maintainer Name | Role | Phone | + +------+ + PCP | Unavailable | + +------+ + Encounter Details +--------+ + + + + | Date | Type | Department | Care Team | Description | +--------+ + + + + | 04/09/ | Office | | Note, Outpatient | [...] as of this encounter Progress Notes Interface, Counter Top Assembler In - 02/23/2005 7:49 AM PDT [id number] [facility] Date: 04/09/2004 Clinic: Neural response telemetry was completed in the Operating Room today following the full insertion of a Nucleus 24 cochlear implant. Impedance measurements were taken across the electrode array and all impedances were within compliant indicating a full insertion. Neural response thresholds were obtained for electrodes 21, 17, 11, 7, and 3. These neural response thresholds will be used in his initial programming session. The patient was under anesthesia for this procedure and was supervised by the anesthesiologist. Meka Murray M.A., C.C.C.-A. Cochlear Implant Rn Acute ANALY / [id number] / [id number] / [id number] / documented i n this encounter Plan of Treatment +--------+ + + + + | Date | Type | Specialty | Care Team | Description | +--------+ + + + + | 04/29/ | Diagnostic | Rn Acute | Marce Meyer | | | 2019 | Visit | | Eve Briseno [address] | | | | | | [address] | | | | | | [place], [place] | | | | | | [address] | | +--------+ + + + + documented as of this encounter Visit Diagnoses Not on filedocumented in this encounter"
--- OUTSIDE RECORDS SUMMARY | ~2019-04-25 | XMS | Encounter Summary ---
Demographics + + + | Address | [address] | | | [place] [address] | + + + | Home Phone [...] Author + + + | Author | [facility] | + + + | Organization | [facility] | + + + | Address | Unknown | + + + | Phone | Unavailable | + + + Support + + + + + | Name | Relationship | Address | Phone | + + + + + | Margarito Owusu | ECON | [address] | | | | | [place] | | | | | [address] | | + + + + + Care Team Providers + +------+ + | Care Survey Superintendent Name | Role | Phone | + [...] and will not | | | | [place], [place] | | be covered by his | | | | [address] | | insurance until | | | | [phone] | | corrected. ) | +--------+ + [...] + | 04/29/ | Diagnostic | Restaurant Crew Person | Marce Meyer | | | 2019 | Visit | | Eve Briseno [address] | | | | | | [address] | | | | | | [place], [place] | | | | | | [address] | | +--------+ + + + + documented as of this encounter Visit Diagnoses Not on filedocumented in this encounter"
--- OUTSIDE RECORDS SUMMARY | ~2019-04-25 | XMS | Encounter Summary ---
Demographics + + + | Address | [address] | | | [place] [address] | + + + | Home Phone | | + + + | Preferred Language | Unknown | + + + | Marital Status | Single | + + + | Uatsdin Affiliation | BAP | + + + [...] [place] | | | | | [address] | | + + + + + Care Team Providers + +------+ + | Care Cleater Name | Role | Phone | + +------+ + | Jaison Chávez MD | PCP | | + +------+ + Encounter Details +--------+ + + + + | Date | Type | Department | Care Team | Description | +--------+ + + + + | 10/08/ | Results | NON-[facility] EPIC | Omari [...] + + | 04/29/ | Diagnostic | Body Designer | Marce Meyer | | | 2019 | Visit | | Eve Briseno [address] | | | | | | [address] | | | | | | [place], [place] | | | | | | [address] | | +--------+ + + + + documented as of this encounter Procedures + +--------+ + + + | Procedure Name | Priori | Date/Time | Associated Diagnosis | Comments | | | ty | | | | + +--------+ + + + | CBC WITH MANUAL | Routin | 10/08/2009 | | Results for this | | DIFFERENTIAL | e | 9:35 AM | | procedure are in the | | | | PDT | | results section. | + +--------+ + + + | TOBRAMYCIN, TROUGH | Routin | 10/08/2009 | | Results for this | | | e | 9:35 AM | | procedure are in the | | | | PDT | | results section. | + +--------+ + + + | COMPLETE METABOLIC | Routin | 10/08/2009 | | Results for this | | [...] documented in this encounter Results TOBRAMYCIN, TROUGH (10/08/2009 9:35 AM PDT) + + + + + + | Component | Value | Ref Range | Performed | Pathologist | | | | | At | Signature | + + + + + + | TOBRAMYCIN, | < 0.5 (L) | 1.0 - 2.0 UG/ML | [facility] | | | TROUGH | | | A MEDICAL | | | | | | CENTER | | + + + + + + | C-REACTIVE | 0.75Comment: Test | <0.80 mg/dL | [facility] | | | PROTEIN | performed at [facility] | | A MEDICAL | | | | [id number] | | CENTER | | | | [address] | | | | | | [address], | | | | | | [place] [address] | | | | | | : [...] + + | [facility] | [address] | [place] [address] | | | MEDICAL CENTER | Streets | | | + + + + + CBC WITH MANUAL DIFFERENTIAL (10/08/2009 9:35 AM PDT) + + + + + + | Component | Value | Ref Range | Performed | Pathologist | | | | | At | Signature | + + + + + + | WHITE BLOOD | 7.6 | 4.3 - 11.0 X10 | [facility] | | | CELL COUNT | | 3/ul | A MEDICAL | | | | | | CENTER | | + + + + + + | WBC, | PIANO TECHNICIAN | X10 3/uL | [facility] | | | ADJUSTED | | | A MEDICAL | | | | | | CENTER | | + + + + + + | HEMOGLOBIN | 13.9Comment: @PLEASE DO | 12.3 - 17.0 | [facility] | | | | A SPUN HEMATOCRIT TO | g/dL | A MEDICAL | | | | DETERMINE IF THE@HGB/HCT | | CENTER | | | | DO NOT MATCH DUE TO | | | | | | LIPEMIA. ORDER A | | | | | | CHGBHCT@(WHICH IS A SPUN | | | | | | HCT JUST FOR THIS | | | | | | CALCULATION).@ON THE | | | | | | SAME | | | | | | REQUISITION. ANSWER | | | | | | LIPEMIC (DO A LOOKUP@AND | | | | | | A CORRECTED HGB | | | | | | REFLEXES OR NO AND | | | | | | NOTHING REFLEX@SEE | | | | | | DETAILED PROCEDURE FOR | | | | | | CORRECTED | | | | | | HEMOGLOBIN.@PLEASE DO A | | | | | | SPUN HEMATOCRIT TO | | | | | | DETERMINE IF THE@HGB/HCT | | | | | | DO NOT MATCH DUE TO | | | | | | LIPEMIA. ORDER A | | | | | | CHGBHCT@(WHICH IS A SPUN | | | | | | HCT JUST FOR THIS | | | | | | CALCULATION).@ON THE | | | | | | SAME | | | | | | REQUISITION. ANSWER | | | | | | LIPEMIC (DO A LOOKUP@AND | | | | | | A CORRECTED HGB | | | | | | REFLEXES OR NO AND | | | | | | NOTHING REFLEX@SEE | | | | | | DETAILED PROCEDURE FOR | | | | | | CORRECTED HEMOGLOBIN. | | | | + + + + + + | RED BLOOD | 4.44 (L) | 4.7 - 6.1 X10 | [facility] | | | CELL COUNT | | 6/uL | A MEDICAL | | | | | | CENTER | | + + + + + + | HEMATOCRIT | 37.9 (L) | 40.0 - 54.0 % | [facility] | | | | | | A MEDICAL | | | | | | CENTER | | + + + + + + | MCV | 85.4 | 82 - 100 fl | [facility] [...] + + + + | MCHC | 36.6 (H) | 32 - 36 g/dL | [...] + + + + | PLATELET | 165 | 150 - 450 X10 3 | [facility] | | | COUNT | | | A MEDICAL | | | | | | CENTER | | + + + + + + | MPV | 7.6 (L) | 9.0 - 12.0 fL | [facility] | | | | | | A MEDICAL | | | | | | CENTER | | + + + + + + | NEUTROPHIL | 81.3 (H) | 40 - 80 % | [facility] | | | % | | | A MEDICAL | | | | | | CENTER | | + + + + + + | LYMPHOCYTE | 10.2 (L) | 20 - 50 % | [...] + + + | BASO % | 0.3 | 0 - 1 % | [facility] | | | | | | A MEDICAL | | | | | | CENTER | | + + + + + + | MONOCYTE % | 5.6 | 2 - 10 % | [facility] | | | | | | A MEDICAL | | | | | | CENTER | | + + + + + + | BANDS % | PIANO TECHNICIAN | 0 - 7 % | [facility] | | | | | | A MEDICAL | | | | | | CENTER | | + + + + + + | CBC | ERROR FLAGS -HEMATOLOGY | | [facility] | | | COMMENTS | INSTR. PIANO TECHNICIAN | | A MEDICAL | | | | | | CENTER | | + + + + + + | CBC | DEFINITIVE FLAG Y | | [facility] | | | COMMENTS | | | A MEDICAL | | | | | | CENTER | | + + + + + + | CBC | SUSPECT FLAG PIANO TECHNICIAN | | [facility] | | | COMMENTS [...] + + + | NEUTRO % | 89 (H) | 40 - 70 % | [facility] | | | | | | A MEDICAL | | | | | | CENTER | | + + + + + + | LYMPHOCYTE | 6 | 10 - 45 % | [facility] | | | %, MANUAL | | | A MEDICAL | | | | | | CENTER | | + + + + + + | MONOCYTE%, | 4 | 2 - 10 % | [facility] [...] + + + + | BASOPHIL%, | PIANO TECHNICIAN | 0 - 1 % | [facility] | | | MANUAL | | | A MEDICAL | | | | | | CENTER | | + + + + + + | REACTIVE | PIANO TECHNICIAN | 0.0 - 4.0 % | [facility] | | | LYMPHS % | | | A MEDICAL | | | | | | CENTER | | + + + + + + | BANDS % | PIANO TECHNICIAN | 0 - 7 % | [facility] | | | | | | A MEDICAL | | | | | | CENTER | | + + + + + + | METAMYELOCY | PIANO TECHNICIAN | 0 - 0 % | [facility] | | | BRANDON % | | | A MEDICAL | | | | | | CENTER | | + + + + + + | MYELOCYTES | PIANO TECHNICIAN | 0 - 0 % | [facility] | | | % | | | A MEDICAL | | | | | | CENTER | | + + + + + + | PROMYELOCYT | PIANO TECHNICIAN | 0 - 0 % | [facility] | | | ES % | | | A MEDICAL | | | | | | CENTER | | + + + + + + | BLASTS | PIANO TECHNICIAN | 0 - 0 % | [facility] [...] + + + + | RBC | PIANO TECHNICIAN | NORMAL | [facility] | | | MORPHOLOGY | | | A MEDICAL | | | | | | CENTER | | + + + + + + | WBC | PIANO TECHNICIAN | NORMAL | [facility] | | | MORPHOLOGY | | | A MEDICAL | | | | | | CENTER | | + + + + + + | PLATELET | PIANO TECHNICIAN | NORMAL | [facility] | | | MORPHOLOGY | | | A MEDICAL | | | | | | CENTER | | + + + + + + | NUCLEATED | PIANO TECHNICIAN | | [facility] | | | RBCS | | | A MEDICAL | | | | | | CENTER | | + + + + + + | GIANT PLT | PIANO TECHNICIAN | | [facility] | | | | | | A MEDICAL | | | | | | CENTER | | + + + + + + | SEDIMENTATI | 26 (H) | 1 - 15 MM/HR | [...] + + + + | [facility] | [address] [place] | [place] [address] | | | [facility] | Streets | | | + + + + + COMPLETE METABOLIC SET (NA,K,CL,CO2,BUN,CREAT,GLUC,CA,AST,ALT,BILI TOTAL,ALK PHOS,ALB,PROT TOTAL) (10/08/2009 9:35 AM PDT) + + + + + + | Component | Value | Ref Range | Performed | Pathologist | | | | | At | Signature | + + + + + + | SODIUM, | 137 | 137 - 146 MEQ/L | [facility] [...] + + + + | GLUCOSE, | 140 (H) | 70 - 105 MG/DL | [facility] | | | [facility] | | | A [facility] | | | (LAB) | | | C[facility] | | + + + + + + | BUN, PLASMA | 15 | 8 - 30 MG/DL | [facility] | | | (LAB) | | | A [facility] | | | | | | [facility] | | + + + + + + | CREATININE | 0.71 (L) | 0.9 - 1.3 MG/DL | [...] + + + | ALT (SGPT) | 27 | 7 - 51 U/L | [facility] | | | | | | [facility] | | | | | | [facility] | | + + + + + + | ALK PHOS | 105 | 40 - 180 U/L | [facility] | | | | | | [facility] | | | | | | [facility] | | + + + + + + | TOTAL | 6.6 (L) | 6.7 - 8.5 G/DL | [facility] | | | PROTEIN, | | | A MEDICAL | | | PLASMA | | | CENTER | | | (LAB) | | | | | + + + + + + | ALBUMIN, | 3.6 [...] | [address] | [place] [id number] | | | [facility] | Streets | | | + + + + + documented in this encounter Visit Diagnoses Not on filedocumented in this encounter"
--- OUTSIDE RECORDS SUMMARY | ~2019-04-25 | XMS | Encounter Summary ---
Demographics + + + | Address | [address] | | | [place] [address] | + + + | Home Phone [...] + + | Author | [facility] | + + + | Organization | [facility] | + + + | Address | Unknown | + + + | Phone | Unavailable | + + + Support + + + + + | Name | Relationship | Address | Phone | + + + + + | Margarito Owusu | ECON | [address] | | | | | [place] | | | | | [address] | | + + + + + Care Team Providers + +------+ + | Care Hand Profiler Name | Role | Phone | + +------+ + | Kerri Chavarria STAGE ELECTRICIAN HELPER | PCP | | + +------+ + [...] | +--------+ + + + + | 03/23/ | Hospital | [facility] PROCEDURE | Yakov Machuca MD | | | 2012 | Encounter | [address] | [address] | | | | | Ave Mailcode: [facility] | [place], [place] | | | | | [facility] | [address] | | | | | Health and Healing, | [phone] | | | | | [address] [place] [address] | | | | | | [place], [place] | | | | | | [address] | | | | | | [phone] | | | +--------+ + + + [...] + + + | Blood Pressure | 121/70 | 03/23/2012 10:24 AM | | | | | PDT | | + + + + + | Pulse | 83 | 03/23/2012 10:24 AM | | | | | PDT | | + + + + + | Temperature | 36.7 C (98.1 F) | 03/23/2012 8:29 AM | | | | | PDT | | + + + + + | Respiratory Rate | 14 | 03/23/2012 10:24 AM | | | | | PDT | | + + + + + | Oxygen Saturation | 98% | 03/23/2012 10:24 AM | | | | | PDT | | + + + + + | Inhaled Oxygen | - | - | | | Concentration | | | | + + + + + | Weight | 106.6 kg (235 lb) | 03/23/2012 8:51 AM | | | | | PDT | | + + + + + | Height | - | - | | + + + + + | Body Mass Index | 31.22 | 12/03/2010 5:57 PM | | | | | PDT | | + + + + + documented in this encounter Discharge Instructions Instructions Vale Oh RN - 03/23/2012[place] Care Instructions after Colonoscopy You may resume your normal diet and medications unless told otherwise. Medications The medications you received can cause you to be forgetful and drowsy and will take the rem ainder of the day to wear off. DO NOT drink alcohol, drive, operate heavy machinery, sign legal documents, or make major d ecisions until tomorrow. Common After Effects mild abdominal pain, bloating, and excessive gas. This is caused by the air that was pu t in your colon during the procedure. These symptoms will improve as you pass gas. Activity Light activity such as walking will help you pass the air that was put into your colon. Complications Call your GI doctor if you have: Abnormal pain or any new unexplained symptoms. Bright red rectal bleeding Fever above 101.5 Redness, pain, or swelling at your IV site that is not relieved with warm compress. For any questions related to your procedure call: Thursday- Thursday 8:00- 4:30 Endoscopy Toll free ext: [phone] or [phone] After business hours, or on weekends and holidays call the Hospital Temporary Receptionist Toll Free [phone] Ext. [phone] or and have the GI doctor blasting contract man paged. The provider who performed your procedure is: Dr Machuca Results of your exam: Anal fissure. Internal hemmorhoids Recommended follow up Colonoscopy: 10 years Follow up Appointments with: Dr Rodney to evaluate and treat Anal Fissure Your primary care provider or referring provider will receive copies of the procedure repor t and all pathology reports with recommendations for treatment documented in this encounter Plan of Treatment +--------+ + + + + | Date | Type | Specialty | Care Team | Description | +--------+ + + + + | 04/29/ | Diagnostic | Trimmer Sawyer | Marce Meyer | | | 2019 | Visit | | [place], Eve [address] [facility] | | | | | | [address] | | | | | | [place], [place] | | | | | | [address] | | +--------+ + + + + documented as of this encounter Procedures + +--------+ + + + | Procedure Name | Priori | Date/Time | Associated Diagnosis | Comments | | | ty | | | | + +--------+ + + + | PROCEDURE NOTE | Routin | 08/31/2015 | | Results for this | | | e | 1:31 AM | | procedure are in the | | | | PST | | results section. | + +--------+ + + + | CAPILLARY BLOOD | Routin | 03/23/2012 | | Results for this | | GLUCOSE (NO CHG), | e | 9:01 AM | | procedure are in the | | POC | | PDT | | results section. | + +--------+ + + + | COLONOSCOPY | | 03/23/2012 | | Results for this | | | | 12:00 AM | | procedure are in the | | | | PDT | | results section. | + +--------+ + + + documented in this encounter Results PROCEDURE NOTE (08/31/2015 1:31 AM PST)CAPILLARY BLOOD GLUCOSE, POC (03/23/2012 9:01 AM P DT) + +-------+ + + + | Component | Value | Ref Range | Performed | Pathologist | | | | | At | Signature | + +-------+ + + + | BLOOD | 99 | 60 - 99 mg/dL | [facility], | | | GLUCOSE, | | | POINT OF | | | POC | | | CARE TESTS | | + +-------+ + + + + + | Specimen | + + | | + + + + + + + | Performing | Address | City/State/Zipcode | Phone Number | | Organization | | | | + + + + + | [facility] | [address] | [place] [address] | | | OF CARE TESTS | | | | + + + + + COLONOSCOPY (03/23/2012 12:00 AM PDT) + + + | Narrative | Performed At | + + + | | | + + + + + | Transcriptions | + + | Other, Faculty - 03/23/2012 10:36 AM PDT | + + documented in this encounter Visit Diagnoses Not on filedocumented in this encounter Administered Medications + +--------+ +---------+------+------+ | Medication Order | MAR | Action | Dose | Rate | Site | | | Action | Date | | | | + +--------+ +---------+------+------+ | fentaNYL citrate (PF) (aka | Given | 03/23/20 | 200 mcg | | | | SUBLIMAZE) injection 1 dose, | | 12 9:38 | | | | | Starting Thu03/23/12 at 0857, | | AM PDT | | | | | Until Thu03/23/12 at 0938 | | | | | | + +--------+ +---------+------+------+ +---+---+ | | | +---+---+ + +-------+ +---+---+---+ | lidocaine (aka XYLOCAINE) 2 % | Given | 03/23/20 | | | | | gel 1 dose, Starting 03/23/12 | | 12 9:39 | | | | | at 0918, Until 03/23/12 at | | AM PDT | | | | | 0939 | | | | | | + +-------+ +---+---+---+ +---+---+ | | | +---+---+ + +-------+ +------+---+---+ | midazolam (aka VERSED) | Given | 03/23/20 | 6 mg | | | | injection 1 dose, Starting Thu | | 12 9:39 | | | | | 03/23/12 at 0857, Until Tue | | AM PDT | | | | | 03/23/12 at 0939 | | | | | | + +-------+ +------+---+---+ +---+---+ | | | +---+---+ documented in this encounter"
--- OUTSIDE RECORDS SUMMARY | ~2019-04-25 | XMS | Encounter Summary ---
Demographics + + + | Address | [address] | | | [place] [address] | + + + | Home Phone [...] [place] | | | | | [address] | | + + + + + Care Team Providers + +------+ + | Care Restaurant Managing Partner Name | Role | Phone | + [...] | | | [address] | [place] [address] | | | | | Mailcode: [address] | | | | | | Physician's Chris | | | | | | [place], [place] | | | | | | [address] | | | | | | [phone] | | | +--------+ + + + [...] + + | 04/29/ | Diagnostic | Manager Of Financial Planning | Marce Meyer | | | 2019 | Visit | | Eve Briseno [address] | | | | | | [address] | | | | | | [place], [place] | | | | | | [address] | | +--------+ + + + + [...] + + | [facility] | [address] | [place] [address] | | | PATHOLOGY | [address] | | | + + + + + | [facility] | [address] | [place] [address] | | | PATHOLOGY | [address] | | | + + + + + documented in this encounter Visit Diagnoses Not on filedocumented in this encounter"
--- OUTSIDE RECORDS SUMMARY | ~2019-04-25 | XMS | Encounter Summary ---
Demographics + + + | Address | [address] | | | [place] [address] | + + + | Home Phone [...] [place] | | | | | [address] | | + + + + + Care Team Providers + +------+ + | Care Manifest/Order Organizer Print Orders Name | Role | Phone | + +------+ + | Sergo Leigh MD | PCP | Unavailable | + +------+ + Reason for Visit + + + | Reason | Comments | + + + | Hearing loss | Faxed general CMN to cochlear | + + + Encounter Details +--------+ + + + + | Date | Type | Department | Care Team | Description | +--------+ + + + + | 06/13/ | Documentati | Otolaryngology | PujaHaroon yost, | Hearing loss (Faxed | | 2009 | on | Cochlear Services | PhD | general SCHULTZ to | | | | [address] | | cochlear) | | | | Toya Spencer Mailcode: | | | | | | [address] | | | | | | [place], | | | | | | [place] [address] | | | | | | [phone] | | | +--------+ + + + [...] + + | 04/29/ | Diagnostic | Hat Trimmer | Marce Meyer | | | 2019 | Visit | | Eve Briseno [address] [facility] | | | | | | [address] | | | | | | [place] | | | | | | [address] | | +--------+ + + + + documented as of this encounter Visit Diagnoses Not on filedocumented in this encounter"
--- OUTSIDE RECORDS SUMMARY | ~2019-04-25 | XMS | Encounter Summary ---
Demographics + + + | Address | [address] | | | [place] [address] | + + + | Home Phone | | + + + | Preferred Language | Unknown | + + + | Marital Status | Single | + + + | Adventism Affiliation | BAP | + + + [...] [place] | | | | | [address] | | + + + + + Care Team Providers + +------+ + | Care Topographical Engineer Name | Role | Phone | + +------+ + | Cee Triana MD | PCP | Unavailable | + +------+ + Encounter Details +--------+ + + + + | Date | Type | Department | Care Team | Description | +--------+ + + + + | 10/07/ | Telephone | Digestive Health | Ayana Butler W, | | | 2012 | | [place] at [facility] [address] | [address] | | | | | [place] | [facility] [place] | | | | | Mailcode: [place] | [address] | | | | | for Health and | [phone] | | | | | [facility] 2 | | | | | | [place], [place] | | | | | | [address] | | | | | | [phone] | | | +--------+ + + + [...] + + | 04/29/ | Diagnostic | Shutdown Coordinator | Marce Meyer | | | 2019 | Visit | | Eve Briseno [address] [place] [address] | | | | | | [address] | | | | | | [place] | | | | | | [address] | | +--------+ + + + + documented as of this encounter Visit Diagnoses Not on filedocumented in this encounter"
--- OUTSIDE RECORDS SUMMARY | ~2019-04-25 | XMS | Encounter Summary ---
Demographics + + + | Address | [address] | | | [place] [address] | + + + | Home Phone [...] [place] | | | | | [address] | | + + + + + Care Team Providers + +------+ + | Care Tenant Selector Name | Role | Phone | + [...] of | | 2012 | Visit | [place] at [facility] [address] | [address] | recurrent ventral | | | | [address] | [place], [place] | hernia (Primary Dx) | | | | Mailcode: [place] | [address] | | | | | for Health and | [phone] | | | | | [facility] [address] | | | | | | [place], [place] | | | | | | [address] | | | | | | [phone] | | | +--------+---------+ + + + [...] Butler MD - 09/08/2012 3:50 PM PST09/08/2012 [place] [facility]- follow up Edgar Marquez presents 2 [...] + + | 04/29/ | Diagnostic | Aged Or Disabled Care Worker | Marce Meyer | | | 2018 | Visit | | K, Eve [address] [facility] | | | | | | [address] | | | | | [facility] | | | | | | [address] | | +--------+ + + + + documented as of this encounter Visit Diagnoses + + | Diagnosis | + + | S/P repair of recurrent ventral hernia - Primary Other postprocedural status | + + documented in this encounter"
--- OUTSIDE RECORDS SUMMARY | ~2019-04-25 | XMS | Encounter Summary ---
Demographics + + + | Address | [address] | | | [place] [address] | + + + | Home Phone | | + + + | Preferred Language | Unknown | + + + | Marital Status | Single | + + + | Sabianism Affiliation | BAP | + + + [...] [place] | | | | | [address] | | + + + + + Care Team Providers + +------+ + | Care Behavioral Technician Name | Role | Phone | + +------+ + | Kerri Chavarria PACKAGE DYEING MACHINE OPERATOR | PCP | | + +------+ + [...] | | | | | Ave Mailcode: [facility] | [place], [place] | | | | | [facility] | [address] | | | | | Health and Healing, | [phone] | | | | | [address] [address] | | | | | | [place], [place] | | | | | | [address] | | | | | | [phone] | | | +--------+ + + + [...] Discharge Instructions Instructions Vale Oh RN - 03/23/2012[place] Care Instructions after Colonoscopy You may resume [...] Thursday 8:00- 4:30 Endoscopy Toll free ext: [phone] or [phone] After business hours, or on weekends and holidays call the Hospital Counterperson Toll Free [phone] Ext. [phone] or and have the GI doctor oracle consultant paged. The provider who performed your procedure [...] + + | 04/29/ | Diagnostic | Perianesthesia Nurse | Marce Meyer | | | 2019 | Visit | | Finn, Eve [address] [facility] | | | | | | [address] | | | | | | [place], [place] | | | | | | [address] | | +--------+ + + + + [...] + | [facility] | [address] [facility] | [place] [address] | | | OF CARE TESTS | [...]
--- OUTSIDE RECORDS SUMMARY | ~2019-04-25 | XMS | Encounter Summary ---
Demographics + + + | Address | [address] | | | [place] [address] | + + + | Home Phone | | + + + | Preferred Language | Unknown | + + + | Marital Status | Single | + + + | Spiritism Affiliation | BAP | + + + [...] [place] | | | | | [address] | | + + + + + Care Team Providers + +------+ + | Care Church History Teacher Name | Role | Phone | + +------+ + | Kerri Chavarria NP | PCP | | + +------+ + Encounter Details +--------+ + + + + | Date | Type | Department | Care Team | Description | +--------+ + + + + | 05/31/ | Abstract | Digestive Health | Ayana Butler W, | | | 2011 | | [place] at [facility] [address] | [address] | | | | | [address] | [place], [place] | | | | | Mailcode: [place] | [address] | | | | | for Health and | [phone] | | | | | [facility] 2 | | | | | | [facility] [place] | | | | | | [address] | | | | | | [phone] | | | +--------+ + + + [...] + + | 04/29/ | Diagnostic | Jewelry Inspector | Marce Meyer | | | 2019 | Visit | | Eve Briseno [address] [facility] | | | | | | [address] | | | | | | [place] | | | | | | [address] | | +--------+ + + + + documented as of this encounter Visit Diagnoses Not on filedocumented in this encounter"
--- OUTSIDE RECORDS SUMMARY | ~2019-04-25 | XMS | Encounter Summary ---
Demographics + + + | Address | [address] | | | [place] [address] | + + + | Home Phone [...] Author + + + | Author | [facility] | + + + | Organization | [facility] | + + + | Address | Unknown | + + + | Phone | Unavailable | + + + Support + + + + + | Name | Relationship | Address | Phone | + + + + + | Margarito Owusu | ECON | [address] | | | | | [place] | | | | | [address] | | + + + + + Care Team Providers + +------+ + | Care Pet Caretaker Name | Role | Phone | + +------+ + | Maurice Zelaya MD | PCP | | + +------+ + Encounter Details +--------+ + + + + | Date | Type | Department | Care Team | Description | +--------+ + + + + | 08/27/ | H&P-Transcr | [facility] [address] | Marcos Villanueva | History & Physical | | 2009 | ibed | E The | MD Lars [address] | | | | | [place] | [address] | | | | | [address] | [place] [address] | | | | | | [phone] | | | | | | | [...] + + | 04/29/ | Diagnostic | Live Hanger | Marce Meyer | | | 2019 | Visit | | Eve Briseno [address] [facility] | | | | | | [address] | | | | | | [place] | | | | | | [address] | | +--------+ + + + + documented as of this encounter Visit Diagnoses Not on filedocumented in this encounter"
--- OUTSIDE RECORDS SUMMARY | ~2019-04-25 | XMS | Encounter Summary ---
Demographics + + + | Address | [address] | | | [place] [address] | + + + | Home Phone [...] [place] | | | | | [address] | | + + + + + Care Team Providers + +------+ + | Care Supervisor Special Services Name | Role | Phone | + +------+ + | Cee Triana MD | PCP | Unavailable | + +------+ + Encounter Details +--------+ + + + + | Date | Type | Department | Care Team | Description | +--------+ + + + + | 10/06/ | Telephone | Digestive Health | Ayana Butler W, | | | 2012 | | [facility] [address] | [address] | | | | | [place] | [facility] [place] | | | | | Mailcode: [place] | [address] | | | | | for Health and | [phone] | | | | | [facility] 2 | | | | | | [place], [place] | | | | | | [address] | | | | | | [phone] | | | +--------+ + + + [...] + + | 04/29/ | Diagnostic | Major Sales Associate | Marce Meyer | | | 2019 | Visit | | Eve Briseno [address] [place] [address] | | | | | | [address] | | | | | | [place] | | | | | | [address] | | +--------+ + + + + documented as of this encounter Visit Diagnoses Not on filedocumented in this encounter"
--- OUTSIDE RECORDS SUMMARY | ~2019-04-25 | XMS | Encounter Summary ---
Demographics + + + | Address | [address] | | | [place] [address] | + + + | Home Phone [...] [place] | | | | | [address] | | + + + + + Care Team Providers + +------+ + | Care Central Sterilization Technician Name | Role | Phone | + +------+ + | Cee Triana MD | PCP | Unavailable | + +------+ + Encounter Details +--------+ + + + + | Date | Type | Department | Care Team | Description | +--------+ + + + + | 08/30/ | Telephone | Digestive Health | Ayana Butler W, | | | 2012 | | [place] at [facility] [address] | [address] | | | | | [place] | [facility] [place] | | | | | Mailcode: [place] | [address] | | | | | for Health and | [phone] | | | | | [facility] 2 | | | | | | [place], [place] | | | | | | [address] | | | | | | [phone] | | | +--------+ + + + [...] + + | 04/29/ | Diagnostic | Cleaning Handyman | Marce Meyer | | | 2019 | Visit | | Eve Briseno [address] [place] [address] | | | | | | [address] | | | | | | [place] | | | | | | [address] | | +--------+ + + + + documented as of this encounter Visit Diagnoses Not on filedocumented in this encounter"
--- OUTSIDE RECORDS SUMMARY | ~2019-04-25 | XMS | Encounter Summary ---
Demographics + + + | Address | [address] | | | [place] [address] | + + + | Home Phone [...] + + + | Author | [facility] | + + + | Organization | [facility] | + + + | Address | Unknown | + + + | Phone | Unavailable | + + + Support + + + + + | Name | Relationship | Address | Phone | + + + + + | Margarito Owusu | ECON | [address] | | | | | [place] | | | | | [address] | | + + + + + Care Team Providers + +------+ + | Care Brim Stitcher Name | Role | Phone | + +------+ + | Kerri Chavarria NP | PCP | | + +------+ + Encounter Details +--------+ + + + + | Date | Type | Department | Care Team | Description | +--------+ + + + + | 05/27/ | Telephone | Digestive Health | Ayana Butler W, | | | 2011 | | [place] at [facility] [address] | [address] | | | | | [address] [address] | [facility] [place] | | | | | Mailcode: [place] | [address] | | | | | for Health and | [phone] | | | | | [facility] 2 | | | | | | [facility] [place] | | | | | | [address] | | | | | | [phone] | | | +--------+ + + + [...] + + | 04/29/ | Diagnostic | It Systems Analyst Consultant | Marce Meyer | | | 2019 | Visit | | Eve Briseno [address] [place] [address] | | | | | | [address] | | | | | | [place] | | | | | | [address] | | +--------+ + + + + documented as of this encounter Visit Diagnoses Not on filedocumented in this encounter"
--- OUTSIDE RECORDS SUMMARY | ~2019-04-25 | XMS | Encounter Summary ---
Demographics + + + | Address | [address] | | | [place] [address] | + + + | Home Phone | | + + + | Preferred Language | Unknown | + + + | Marital Status | Single | + + + | Latter Day Affiliation | BAP | + + + [...] [place] | | | | | [address] | | + + + + + Care Team Providers + +------+ + | Care Cleaning Technician Name | Role | Phone | + +------+ + | Jaison Chávez MD | PCP | | + +------+ + Encounter Details +--------+ + + + + | Date | Type | Department | Care Team | Description | +--------+ + + + + | 12/14/ | Results | NON-[facility] | Sergo Leigh | | | 2009 | Only | Department | MD Med INTERNAL | | | | | | [facility] | | | | | | [address] | | | | | | [place] [address] | | | | | | [phone] | | | | | | | [...] + + | 04/29/ | Diagnostic | Internal Audit Director | Marce Meyer | | | 2019 | Visit | | Eve Briseno [address] | | | | | | [address] | | | | | | [place], [place] | | | | | | [address] | | +--------+ + + + + documented as of this encounter Procedures + +--------+ + + + | Procedure Name | Priori | Date/Time | Associated Diagnosis | Comments | | | ty | | | | + +--------+ + + + | SRUTHI MUNIZ ONLY | Routin | 12/14/2009 | | Results for this | | | e | 12:00 AM | | procedure are in the | | | | PDT | | results section. | + +--------+ + + + documented in this encounter Results SRUTHI MUNIZ ONLY (12/14/2009 12:00 AM PDT) + +--------+ + + + | Component | Value | Ref Range | Performed | Pathologist | | | | | At | Signature | + +--------+ + + + | COLOR(UR) | YELLOW | YELLOW | [facility] | | | | | | A MEDICAL | | | | | | CENTER | | + +--------+ + + + | APPEARANCE | CLEAR | CLEAR | [facility] | | | | | | A MEDICAL | | | | | | CENTER | | + +--------+ + + + | SPECIFIC | 1.015 | 1.005 - 1.030 | [facility] | | | GRAVITY | | | A MEDICAL | | | | | | CENTER | | + +--------+ + + + | PH(UR) | 5.5 | 5.0 - 8.0 | [facility] | | | | | | A MEDICAL | | | | | | CENTER | | + +--------+ + + + | PROTEIN, UA | NEG | NEGATIVE | [facility] | | | | | | A [facility]ICAL | | | | | | CENTER | | + +--------+ + + + | GLUCOSE, UA | NEG | N | [facility] | | | | | | A MEDICAL | | | | | | CENTER | | + +--------+ + + + | KETONES, UA | NEG | NEGATIVE | [facility] | | | | | | A [facility]ICAL | | | | | | CENTER | | + +--------+ + + + | BILIRUBIN | NEG | NEGATIVE | [facility] | | | | | | A MEDICAL | | | | | | CENTER | | + +--------+ + + + | BLOOD | NEG | NEGATIVE | [facility] | | | | | | A MEDICAL | | | | | | CENTER | | + +--------+ + + + | NITRITES | NEG | NEGATIVE | [facility] | | | | | | A MEDICAL | | | | | | CENTER | | + +--------+ + + + | LEUKOCYTE | POS | NEGATIVE | [facility] | | | ESTERASE | | | A MEDICAL | | | | | | CENTER | | + +--------+ + + + | UROBILINOGE | NORMAL | NORMAL AUBRIE | [facility] | | | N | | | A MEDICAL | | | | | | CENTER | | + +--------+ + + + | WHITE CELLS | 3-5 | 0 - 2 HPF | [facility] | | | | | | A MEDICAL | | | | | | CENTER | | + +--------+ + + + | RED CELLS | 0-3 | 0 - 3 HPF | [facility] | | | | | | A MEDICAL | | | | | | CENTER | | + +--------+ + + + | EPITHELIAL | RARE | RARE-MOD LPF | [facility] | | | CELLS | | | A MEDICAL | | | | | | CENTER | | + +--------+ + + + | BACTERIA | 1+ | NEG HPF | [facility] | | | | | | A MEDICAL | | | | | | CENTER | | + +--------+ + + + | OTHER | SQL SERVER ARCHITECT | | [facility] | | | | | | A MEDICAL | | | | | | CENTER | | + +--------+ + + + | SOURCE | RANDOM | | [facility] | | | | [...] | + + + + + | [facility] | And | [place] [address] | | | MEDICAL CENTER | Streets | | | + + + + + documented in this encounter Visit Diagnoses Not on filedocumented in this encounter"
--- OUTSIDE RECORDS SUMMARY | ~2019-04-25 | XMS | Encounter Summary ---
Demographics + + + | Address | [address] | | | [place] [address] | + + + | Home Phone | | + + + | Preferred Language | Unknown | + + + | Marital Status | Single | + + + | Jewish Affiliation | BAP | + + + [...] [place] | | | | | [address] | | + + + + + Care Team Providers + +------+ + | Care Special Forces Communications Sergeant Name | Role | Phone | + [...] | PhD | | | | | [address] | | | | | | [place] Mailcode: | | | | | | [address] | | | | | | [place], | | | | | | [place] [address] | | | | | | [phone] | | | +--------+ + + + [...] + + | 04/29/ | Diagnostic | Production Zone Leader | Marce Meyer | | | 2019 | Visit | | Eve Briseno [address] | | | | | | [address] | | | | | | [place], [place] | | | | | | [address] | | +--------+ + + + + documented as of this encounter Visit Diagnoses Not on filedocumented in this encounter"
--- OUTSIDE RECORDS SUMMARY | ~2019-04-25 | XMS | Encounter Summary ---
Demographics + + + | Address | [address] | | | [place] [address] | + + + | Home Phone | | + + + | Preferred Language | Unknown | + + + | Marital Status | Single | + + + | Gnosticism Affiliation | BAP | + + + [...] [place] | | | | | [address] | | + + + + + Care Team Providers + +------+ + | Care Daycare Provider Name | Role | Phone | + [...] [place] | | | | | | [address] | | | | | | [phone] | | | | | | | [...] + + | 04/29/ | Diagnostic | Pallet Stone Positioner | Marce Meyer | | | 2019 | Visit | | Eve Briseno [address] [facility] | | | | | | [address] | | | | | | [place], [place] | | | | | | [address] | | +--------+ + + + + [...] | | Results for this | | [id number] | e | 7:27 PM | | procedure are in the | | | | PDT | | results section. | + +--------+ + + + | CHEST 2 VIEW [id number] | Routin | 04/16/2010 | | Results [...] POINT | | | GLUCOSE, | ID: [id number]: | | OF CARE | | | POC | [id number] Hussein | | TESTING | | | [...] | [facility] | And | [place] [address] | | | [facility]ENTER | Streets [...] + + + | BANDS % | BIOPHYSICS SCIENTIST | 0 - 7 % | [facility] [...] | [facility] | [address] | [place] [address] | | | [facility] | Streets | | | + + + + + TROPONIN I, PLASMA (04/17/2010 5:40 AM PDT) + +-------+ + + + | Component | Value | Ref Range | Performed | Pathologist | | | | | At | Signature | + +-------+ + + + | TROPONIN I | 0.01 | NG/ML | [facility] | | | | | | A [...] + + | [facility] | [address] | [place] [address] | | | [facility] | Streets | | | + + [...] + + + | [facility] | [place] | [place] [address] | | | MEDICAL [facility]ENTER | Streets [...] [facility] | | | GLUCOSE, | [id number]: | | OF CARE | | | POC | [id number] Louie Narvaez | | TESTING | | [...] + +---------+ + + CTA CHEST COMBINED [id number] (04/16/2010 7:27 PM PDT) + + | [...] pulmonary embolus is | | | present. [id number] | | + + + + + [...] | pulmonary embolus is present. | | [id number] | + + + +---------+ + + | Performing | Address | City/State/Zipcode | Phone Number | | Organization | | | | + +---------+ + + | [facility] | | | | | RADIOLOGY | | | | + +---------+ + + CHEST 2 VIEW [id number] (04/16/2010 6:38 PM PDT) + + | [...] | | + +---------+ + + | [facility] DEPARTMENT OF | | [...] | + + + + + | [facility] | And | [place] [address] | | | [facility] | Streets | | | + + [...] + + | [facility] | [address] | [place] [address] | | | MEDICAL CENTER | Streets [...] + + + | BANDS % | BIOPHYSICS SCIENTIST | 0 - 7 % | [facility] [...] + + | [facility] | [address] | [place] [address] | | | MEDICAL CENTER | Streets [...] | [facility] | [address] | [place] [address] | | | MEDICAL CENTER | Streets [...] 20 | 8 - 30 MG/DL | [facility] | | | (LAB) | | | [...] | + + + + + | [facility] | And | [place] [address] | | | [facility] | Streets | | | + + [...] | + + + + + | [facility] | [address] [place] | [place] [address] | | | [facility] | Streets | | | + + [...] + + + + + | [facility] | And | [place] [address] | | | [facility] | [facility] | | | + + + + + documented in this encounter Visit Diagnoses Not on filedocumented in this encounter"
--- OUTSIDE RECORDS SUMMARY | ~2019-04-25 | XMS | Encounter Summary ---
Demographics + + + | Address | [address] | | | [place] [address] | + + + | Home Phone | | + + + | Preferred Language | Unknown | + + + | Marital Status | Single | + + + | Rastafari Affiliation | BAP | + + + [...] [place] | | | | | [address] | | + + + + + Care Team Providers + +------+ + | Care Ap Operator Name | Role | Phone | + +------+ + | Deidre Card | PCP | | + +------+ + Encounter Details +--------+ + + + + | Date | Type | Department | Care Team | Description | +--------+ + + + + | 10/21/ | Office | [facility] | Note, [...] as of this encounter Progress Notes Interface, Sales Expert Home Theater In - 04/06/2006 3:04 AM PDTCLINIC DATE: 10/21/2001 NEUROMUSCULAR CLINIC CHIEF COMPLAINT/IDENTIFICATION: A 36-year-old right-handed male with chronic left leg pain, low back pain, and weakness. PAST MEDICAL HISTORY 1. Hypertension. 2. Reactive airway disease. 3. Chronic low back pain. 4. Chronic otitis, right sided. 4.1. Chronic dizziness and vertigo related to purulent discharge. 4.2. Surgery in 1988 and August 2001. 5. Gastroesophageal reflux disease. 6. Depression. 6.1. Reported history of failed suicide attempts. 7. Insomnia. 8. Bilateral sensorineural hearing loss. 9. History of previous intravenous drug abuse. HISTORY OF PRESENT ILLNESS: Mr. Marquez presents for reevaluation of his chronic low back pain and left lower extremity weakness and numbness. The patient states he had an abrupt onset of these symptoms on June 12, 2000. At that time, he was incarcerated in the [facility]. He reports that he previously not had similar problems. The day in question, the patient was having nausea and vomiting related to a medical illness. He states he was knocked over a toilet, having severe vomiting when he developed severe low back pain and left lower extremity pain. Since that time, he reports it has been continuous, however, occasionally worse in severity. He describes it as "like a needle trying to push through me" and like "bolts of electricity." He describes the pain shooting from his low back down to his left knee and states that he has had numbness below the knee on the left side in a stocking distribution since May 2000 and that these complaints have been unchanged. He has also had significant weakness diffusely in the left lower extremity in all groups and significant functional limitation due to pain. This is causing difficulties with walking, multiple falls, and he has been using a wheelchair for significant period of time. There is no history of urinary dysfunction, erectile dysfunction, or bowel dysfunction other than occasional mild constipation. The patient has no right lower extremity problems. He has no difficulties with the use of his arms. There is no history of changes in his vision or diplopia, and he has only mild chronic occasional vertigo which he has had for many years. He occasionally does have shooting pains in his left upper extremity; however, these are minuscule in comparison to his left lower extremity problems. The patient has tried multiple medications. He states he does not like taking medications and that these have been frequently ineffective for him. There is some charted history of previous narcotic usage for this; however, he states he is currently not taking narcotic medications. ALLERGIES: PENICILLIN, HIVES. MEDICATIONS: Ibuprofen 800 mg b.i.d., amitriptyline 100 mg h.s., doxazosin 6 mg q.d., albuterol MDI, Otic drops, and antacid medication. SOCIAL HISTORY: The patient was previously living with his mother, history of multiple arrests, and once incarceration at the [facility]. Tobacco: One and a half packs per day for 27years. Alcohol: Not currently using. History of intravenous drug abuse for 10 years, quit in 1997. The patient is not working. He has STS and is currently awaiting SSD. He states has had 6 denials but has been accepted. The patient does have an tax associate attorney but states he has no laws, it is pending this time. FAMILY HISTORY: The mother with asthma and hyperlipidemia. The father with coronary and respiratory problems. The brother, eldest, stated HIV and cancer in the history form. Maternal grandmother and grandfather with stroke and hypertension, maternal grandfather with diabetes. Paternal grandmother with cancer and diabetes. Paternal grandfather with diabetes. OBJECTIVE: GENERAL: The patient is diaphoretic and somewhat uncomfortable in appearance. VITAL SIGNS: Pulse 96, weight 236 pounds, blood pressure 156/100, and respirations 24. HEAD AND NECK: No cervical bruits. CARDIOVASCULAR: Regular rate and rhythm. No murmurs, rubs, or gallops are noted. Clear anterior pulmonary auscultation. ABDOMEN: Normoactive bowel sounds. Soft and nontender. SKIN: Multiple skin lesions are noted of unclear etiology. EXTREMITIES: Otherwise unremarkable. NEUROLOGIC: The patient is fully oriented. He has apparently good short and long-term recall and is able to perform simple calculation, memory, naming, and repetitional tasks. His speech is fluent and articulate. Cranial nerves: Pupils equal and reactive. Full range of extraocular movements without nystagmus. Visual zaragoza are full to finger counting. Visual acuities are grossly normal. The patient lipreads and has no apparent hearing abilities. No facial droop. Sensation symmetric. Palate symmetric. Tongue midline. Shrug and sternocleidomastoids full strength. Motor: Normal bulk and tone throughout upper extremities, 5/5 strength in all groups tested proximally and distally without pronation or drift. Right lower extremity, 5/5 to hip flexion, knee flexion, knee extension, ankle plantar and dorsiflexion. Left lower extremity: Hip flexion, knee flexion, and knee extension all 4/5, ankle plantar flexion 4/5, and ankle dorsiflexion trace to 2/5. Note: In these groups, there is significant impersistence and breakaway weakness due to pain from this. Reflexes 2+ biceps, triceps, brachioradialis and 2+ to 3 patellar bilaterally with 2+ ankle jerks noted. Equivocal left plantar response, downgoing right plantar response. Coordination: Normal kqwjtn-ys-yutp, normal fine motor and rapid alternating movements in the upper extremities. Vtiu-nago-yuzr testing, the patient unable due to pain. Sensation is normal to all modalities excluding the left lower extremity below the knee. The patient has absence of both large and small fiber modalities. Gait: The patient is able to stand and transfer to table, has a difficult time returning to his wheelchair and is unable to perform gait or balance testing. DATABASE 1. June 2000, lumbar spine x-ray, noted mild spina bifida occulta, mild kyphosis L5-S1, no fractures. 2. MRI scan, lumbar spine, per report - mild disk desiccation L5-S1, no other structural abnormalities were noted. 3. 2001, left hip x-ray, unremarkable. 4. EMG, Dr. Nance, June 2001, no evidence for neuropathy or radiculopathy in the left lower extremity. 5. Laboratory evaluations: ESR 14, rheumatoid factor less than 20, HLAB- 27 negative, TSH 1.0, and LDL 159. All other liver function tests, chemistry panel, and CBC are essentially unremarkable. 6. EMG nerve conduction study, [facility], October 20, 2001 - final report unavailable; however, there is no evidence for neuropathy, radiculopathy, or other abnormalities noted to this study. IMPRESSION: Low back pain and left lower extremity pain syndrome with functional limitation. DISCUSSION: Based on history and MRI imaging study which shows disk desiccation, the most likely etiology in this case is that of prior lumbar disk herniation with resultant chronic pain syndrome. The natural history of disk herniation syndrome is usually towards resolution and based on the imaging study showing disk dessication, it is most likely this was the prior insult which has led to chronic pain syndrome. At this juncture, based on examination and electrophysiologic testing, there is no evidence for continued disk herniation or any abnormality which could be intervened upon surgically, and medical treatments would be the most appropriate course of action, as well there is no evidence for abnormalities in the right lower extremity, the upper extremities, or other cord dysfunction of any kind. It is difficult to know what to make out of the left lower extremity sensation abnormalities. There is no evidence for any symmetric distal sensory complaints, and the patient has no neuropathic changes notable on his electrophysiology. There is well appeared to be significant psychosocial aspects to the patient's current pain syndrome for which there may be some treatments available as well. He described poor social situation, lives remotely, and has very little support. The patient expressed significant frustration over his continued weakness and pain and willingness to participate in any treatment modalities I recommend. RECOMMENDATIONS 1. No further imaging or surgical referral required. 2. Recommend continued medical management with nonsteroidals and tricyclics as he was doing. He states recent trial of Neurontin was ineffective, this medicine can be titrated upwards to a dose of 1200 mg t.i.d. as tolerated. Occasionally, responses are found at higher doses if side effects are not objectionable. 3. Pain Service consultation may be effective if the patient is not on narcotic medications. 4. Chronic pain management seminars can often be effective and should be entertained. 5. The patient should be closely followed by Physical and Occupational Therapy, and home health and safety evaluations would likely be beneficial. 6. I concur with social work service involvement. 7. I return care to the patient's primary care physician and outside physicians. The patient was seen, discussed, and the plan formed with Dr. Vera, [facility] Neuromuscular Service. Lorenzo Burnham M.D., C.M. / [id number] / [id number] / [id number] / cc: Jacquelin Vera M.D. Neurology, [facility] Jose Antonio Nance M.D. [address] [place] [address] Devaughn Arboleda M.D. [address] [place] [address] [address] [place] [address] [id number] signed by Interface, Sales Expert Home Theater In at 04/06/2006 3:04 AM [facility] umented in this encounter Plan of Treatment +--------+ + + + + | Date | Type | Specialty | Care Team | Description | +--------+ + + + + | 04/29/ | Diagnostic | Bellman Captain | Marce Meyer | | | 2018 | Visit | | Eve Briseno [address] | | | | | | [address] | | | | | | [place], [place] | | | | | | [address] | | +--------+ + + + + documented as of this encounter Visit Diagnoses Not on filedocumented in this encounter
--- OUTSIDE RECORDS SUMMARY | ~2019-04-25 | XMS | Encounter Summary ---
Demographics + + + | Address | [address] | | | [place] [address] | + + + | Home Phone | | + + + | Preferred Language | Unknown | + + + | Marital Status | Single | + + + | Rastafarian Affiliation | BAP | + + + | Race | White | + + + | Ethnic Group | Not or | + + + Author + + + | Author | [facility] | + + + | Organization | [facility] | + + + | Address | Unknown | + + + | Phone | Unavailable | + + + Support + + + + + | Name | Relationship | Address | Phone | + + + + + | Margarito Owusu | ECON | [address] | | | | | [place] | | | | | [address] | | + + + + + Care Team Providers + +------+ + | Care It Project Coordinator Name | Role | Phone | + +------+ + | Cee Triana MD | PCP | Unavailable | + +------+ + Encounter Details +--------+ + + + + | Date | Type | Department | Care Team | Description | +--------+ + + + + | 08/19/ | Documentati | Otolaryngology | Silvia, | | | 2012 | on | Cochlear Services | STEPHANIE [address]ell [address] | | | | | [address] | [address] | | | | | [place] Mailcode: | [place] | | | | | [address] | [address] | | | | | [place] | | | | | | [place] [address] | | | | | | [phone] | | | +--------+ + + + [...] + + | 04/29/ | Diagnostic | Textile Knitter | Marce Meyer | | | 2019 | Visit | | Eve Briseno [address] | | | | | | [address] | | | | | | [place] | | | | | | [address] | | +--------+ + + + + documented as of this encounter Visit Diagnoses Not on filedocumented in this encounter"
--- OUTSIDE RECORDS SUMMARY | ~2019-04-25 | XMS | Encounter Summary ---
Demographics + + + | Address | [address] | | | [place] [address] | + + + | Home Phone [...] [place] | | | | | [address] | | + + + + + Care Team Providers + +------+ + | Care Community Living Specialist Name | Role | Phone | + +------+ + | Kerri Chavarria NP | PCP | | + +------+ + Encounter Details +--------+ + + + + | Date | Type | Department | Care Team | Description | +--------+ + + + + | 03/24/ | Documentati | Digestive Health | Yakov Machuca MD | | | 2011 | on | [place] [facility] [address] | [address] | | | | | [address] | [place], [place] | | | | | Mailcode: Center | [address] | | | | | for Health and | [phone] | | | | | [facility] [address] | | | | | | [place], [place] | | | | | | [address] | | | | | | [phone] | | | +--------+ + + + [...] + + | 04/29/ | Diagnostic | Senior Oracle Dba | Marce Meyer | | | 2019 | Visit | | Eve Briseno [address] | | | | | | [address] | | | | | | [place], [place] | | | | | | [address] | | +--------+ + + + + documented as of this encounter Visit Diagnoses Not on filedocumented in this encounter"
--- OUTSIDE RECORDS SUMMARY | ~2019-04-25 | XMS | Encounter Summary ---
Demographics + + + | Address | [address] | | | [place] [address] | + + + | Home Phone [...] [place] | | | | | [address] | | + + + + + Care Team Providers + +------+ + | Care Compressor Operator Portable Name | Role | Phone | + +------+ + | Maurice Zelaya MD | PCP | | + +------+ + Encounter Details +--------+ + + + + | Date | Type | Department | Care Team | Description | +--------+ + + + + | 01/11/ | Pharmacy | Outpatient Retail | | | | 2013 | Visit | [facility] | | | | | | [address] | | | | | | [place], | | | | | | [place] [address] | | | +--------+ + + + [...] + | 04/29/ | Diagnostic | Air Reduction Equipment Operator | Marce Meyer | | | 2018 | Visit | | Eve Briseno [address] | | | | | | [address] | | | | | | [place], [place] | | | | | | [address] | | +--------+ + + + + documented as of this encounter Visit Diagnoses Not on filedocumented in this encounter"
--- OUTSIDE RECORDS SUMMARY | ~2019-04-25 | XMS | Encounter Summary ---
Demographics + + + | Address | [address] | | | [place] [address] | + + + | Home Phone [...] Author + + + | Author | [facility] | + + + | Organization | [facility] | + + + | Address | Unknown | + + + | Phone | Unavailable | + + + Support + + + + + | Name | Relationship | Address | Phone | + + + + + | Margarito Owusu | ECON | [address] | | | | | [place] | | | | | [address] | | + + + + + Care Team Providers + +------+ + | Care Motor Vehicle Operator Road Supervisor Name | Role | Phone | + +------+ + | Deidre Card | PCP | | + +------+ + Reason for Visit + + + | Reason | Comments | + + + | Hearing loss | 3g Scottie | + + + Encounter Details +--------+ + + + + | Date | Type | Department | Care Team | Description | +--------+ + + + + | 04/17/ | Documentati | Otolaryngology | Haroon Poe, | Hearing loss (3g | | 2007 | on | Cochlear Services | PhD | Scottie) | | | | [address] | | | | | | [place] Mailcode: | | | | | | [address] | | | | | | [place], | | | | | | [place] [address] | | | | | | [phone] | | | +--------+ + + + [...] + + | 04/29/ | Diagnostic | Artist Blacksmith | Marce Myeer | | | 2019 | Visit | | Eve Briseno [address] [facility] [address] | | | | | | [address] | | | | | | [place] | | | | | | [address] | | +--------+ + + + + documented as of this encounter Visit Diagnoses Not on filedocumented in this encounter"
--- OUTSIDE RECORDS SUMMARY | ~2019-04-25 | XMS | Encounter Summary ---
Demographics + + + | Address | [address] | | | [place] [address] | + + + | Home Phone | | + + + | Preferred Language | Unknown | + + + | Marital Status | Single | + + + | Buddhist Affiliation | BAP | + + + | Race | White | + + + | Ethnic Group | Not or | + + + Author + + + | Author | [facility] | + + + | Organization | [facility] | + + + | Address | Unknown | + + + | Phone | Unavailable | + + + Support + + + + + | Name | Relationship | Address | Phone | + + + + + | Margarito Owusu | ECON | [address] | | | | | [place] | | | | | [address] | | + + + + + Care Team Providers + +------+ + | Care Clay Artisan Name | Role | Phone | + +------+ + | Ender Wagoner MD | PCP | | + +------+ + Reason for Visit + + + | Reason | Comments | + + + | Ear problem | here for ear check | + + + Consultation (Routine) +--------+--------+ + + + + | Status | Reason | Specialty | Diagnoses / | Referred By | Referred To | | | | | Procedures | Contact | Contact | +--------+--------+ + + + + | Closed | | Otolaryngolog | | Non-[facility] | Ent Otology | | | | y | | Epic Dept | [facility] [address] | | | | | | | [address] | | | | | | | [address] | | | | | | | Mailcode: | | | | | | | PV01 | | | | | | | Physician's | | | | | | | Chris | | | | | | | [place], [place] | | | | | | | [address] | | | | | | | Phone: | | | | | | | [phone] | | | | | | | Fax: | | | | | | | [phone] | +--------+--------+ + + + + Encounter Details +--------+---------+ + + + | Date | Type | Department | Care Team | Description | +--------+---------+ + + + | 11/24/ | Office | Otolaryngology | Jose Franco, | Neural hearing loss, | | 2011 | Visit | Otology Services at | [address] | bilateral (Primary | | | | [facility] [address] | [address] | Dx) | | | | [address] | [place] [address] | | | | | Mailcode: PV01 | [phone] | | | | | Physician'johnathon Perez | (Fax) | | | | | [place], [place] | | | | | | [address] | | | | | | [phone] | | | +--------+---------+ + + + [...] Instructions Patient Instructions Aruna Edwards MA - 11/25/2011 1:16 PM PDTThank you for choosing [facility] Department of Otolaryngology for your health care needs. If you need to speak to an EN T physician after normal business hours, please call [phone] and ask to have the ENT ph ysician labor economics professor paged. [employer] is a great way to contact me if you have questions in between visits. If you are n ot already signed up for [employer] there is information at the end of this After Visit Summary to help you get started. documented in this encounter Progress Notes Jose Franco MD - 12/04/2011 3:33 PM PDTI saw the pt. I performed an independent histo ry and physical examination. I discussed the case with the resident who documented my findin gs and plan. oConnie bhatti MD - 11/25/2011 1:24 PM PDT Clinic Date: 11/25/2011 Clinic: Otology Clinic Primary Care Provider: Ender Wagoner MD History of Present Illness: Edgar is a 46 y.o. who returns for follow-up left cochlear impl ant and bilateral otitis externa. He was last seen ~ 1 year ago and was hospitalized and jenelle marie on director process IV antibiotics. This is his first follow up appointment. He states that hi s ears have been draining for the past year. He has multiple ear drops which he uses wheneve r he has pain. He recently used his gtts 2 weeks ago, not sure which gtts. Bilateral otalgi a and drainage, constant. Does not use water precautions. Current Outpatient Prescriptions Medication acetic acid 2 % Otic Solution albuterol (PROAIR HFA) 90 mcg/Actuation Inhalation HFA Aerosol Inhaler Albuterol Sulfate 2.5 mg/0.5 mL Inhalation Solution for Nebulization CARBAMAZEPINE ORAL Cefepime HCl 1 gram Intravenous Recon Soln ciprofloxacin-dexamethasone 0.3-0.1 % Otic Drops, Suspension citalopram 10 mg Oral Tablet dexamethasone 0.1 % Ophthalmic Drops fluticasone-salmeterol (ADVAIR DISKUS) 250-50 mcg/dose Inhalation Disk with Device gabapentin (NEURONTIN) 300 mg Oral Capsule HYDROCHLOROTHIAZIDE OR hydrOXYzine 50 mg Oral Tablet IPRATROPIUM BROMIDE (BULK) MISC levothyroxine 25 mcg Oral Tablet lisinopril 10 mg Oral Tablet loratadine 10 mg Oral Tablet LORazepam 2 mg Oral Tablet lovastatin 20 mg Oral Tablet mirtazapine (REMERON) 30 mg Oral Tablet omeprazole (PRILOSEC) 20 mg Oral Capsule, Delayed Release(E.C.) permethrin 5 % Topical Cream prazosin 1 mg Oral Capsule QUEtiapine (SEROQUEL) 25 mg Oral Tablet SENNOSIDES (SENNA CONCENTRATE ORAL) Allergies Allergen Reactions Morphine Psychosis? Penicillins Rash Past Surgical History Procedure Date Pr sinus surgery proc unlisted 2006 PHYSICAL EXAM: There were no vitals taken for this visit. Alert, NAD Respirations even, unlabored. Head: Atraumatic, symmetric Neuro: grossly normal gait and coordination, no evidence of dysmetria. CN: Face symmetric all branches VII intact, HB1 bilaterally. CN 2-12 intact, EOMI, no nys tagmus. Nose: normal external anatomy Mouth/throat: oropharynx clear, normal palate elevation, tongue midline. Neck: no LAD or masses, no thyromegaly. Ears Left otomicroscopy: EAC with moderate drainage and small amount of squamous debris cleane d off TM. TM intact, normal landmarks. Right otomicroscopy: mastoid bowl with mild amount of fluid present and squamous debris. TM intact normal landmarks, no e/o drainage or effusion Assessment: left cochlear implant and hx of right canal wall down tympanomastoidectomy. No with bilateral otitis externa Plan: Dexamethasone and Cipro gtts BID. RTC in 3 weeks for debridement. Water precautions. documented in this enc ounter Plan of Treatment +--------+ + + + + | Date | Type | Specialty | Care Team | Description | +--------+ + + + + | 04/29/ | Diagnostic | Departmental Secretary | Marce Meyer | | | 2019 | Visit | | Eve Briseno [address] [facility] | | | | | | [address] | | | | | | [place] | | | | | | [address] | | +--------+ + + + + documented as of this encounter Visit Diagnoses + + | Diagnosis | + + | Neural hearing loss, bilateral - Primary | + + documented in this encounter"
--- OUTSIDE RECORDS SUMMARY | ~2019-04-25 | XMS | Encounter Summary ---
Demographics + + + | Address | [address] | | | [place] [address] | + + + | Home Phone | | + + + | Preferred Language | Unknown | + + + | Marital Status | Single | + + + | Jew Affiliation | BAP | + + + | Race | White | + + + | Ethnic Group | Not or | + + + Author + + + | Author | [facility] | + + + | Organization | [facility] | + + + | Address | Unknown | + + + | Phone | Unavailable | + + + Support + + + + + | Name | Relationship | Address | Phone | + + + + + | Margarito Owusu | ECON | [address] | | | | | [place] | | | | | [address] | | + + + + + Care Team Providers + +------+ + | Care Supervisor Beater Room Name | Role | Phone | + [...] ventral | Ayana Jovel MD | [facility] [address] | | | | | hernia | [address] | | | | | repair | Ave | [place] | | | | | Procedures | [place], [place] | Mailcode: | | | | | CT ABDOMEN & | [address] | [address] [facility] | | | | | PELVIS W IV | Phone: | Hospital | | | | | CONTRAST | [phone] | [place], [place] | | | | | [address] | Fax: | [address] | | | | | | [phone] | Phone: | | | | | | | [phone] | | | | | | | Fax: | | | | | | | [phone] | +--------+--------+ + + + + Diagnostic Testing (Routine) +--------+--------+ + + + + | Status | Reason | Specialty | Diagnoses / | Referred By | Referred To | | | | | Procedures | Contact | Contact | +--------+--------+ + + + + | Closed | | Radiology | Diagnoses | Gilbert, | Rad Ct Scan | | | | | H/O ventral | Ayana Jovel MD | [facility] [address] | | | | | hernia | [address] | [address] | | | | | repair | [address] | [place] | | | | | Procedures | [place], [place] | Mailcode: | | | | | CT ABDOMEN & | [address] | [address] [facility] | | | | | PELVIS W IV | Phone: | Hospital | | | | | CONTRAST | [phone] | [facility] [place] | | | | | [address] | Fax: | [address] | | | | | | [phone] | Phone: | | | | | | | [phone] | | | | | | | Fax: | | | | | | | [phone] | +--------+--------+ + + + + Reason for Visit Diagnostic Testing (Routine) +--------+--------+ + + + + | Status | Reason | Specialty | Diagnoses / | Referred By | Referred To | | | | | Procedures | Contact | Contact | +--------+--------+ + + + + | Closed | | Radiology | Diagnoses | Gilbert, | Rad Ct Scan | | | | | H/O ventral | Ayana Jovel MD | [facility] [address] | | | | | hernia | [address] | [address] | | | | | repair | [address] | [place] | | | | | Procedures | [place], [place] | Mailcode: | | | | | CT ABDOMEN & | [address] | [address] [facility] | | | | | PELVIS W IV | Phone: | Hospital | | | | | CONTRAST | [phone] | [place], [place] | | | | | [address] | Fax: | [address] | | | | | | [phone] | Phone: | | | | | | | [phone] | | | | | | | Fax: | | | | | | | [phone] | +--------+--------+ + + + + Encounter Details +--------+ + + + + | Date | Type | Department | Care Team | Description | +--------+ + + + + | 12/03/ | Hospital | Radiology/Imaging | | | | 2012 | Encounter | Lab at [facility] [address] | | | | | | [address] Mailcode: | | | | | | [facility] | | | | | | Health and [facility], | | | | | | [address] | | | | | | [place], [place] | | | | | | [address] | | | | | | [phone] | | | +--------+ + + + [...] + + documented as of this encounter Medications at Time of Discharge + + + +---------+ + + | Medication | Sig | Dispensed | Refills | Start | End Date | | | | | | Date | | + + + +---------+ + + | albuterol 90 | Inhale 2 puffs every | | 0 | //20 | | | mcg/actuation | 4 hours [...] + + | 04/29/ | Diagnostic | Sister Superior | Marce Meyer | | | 2019 | Visit | | Eve Briseno [address] | | | | | | [address] | | | | | | [place], [place] | | | | | | [address] | | +--------+ + + + + documented as of this encounter Procedures + +--------+ + + + | Procedure Name | Priori | Date/Time | Associated Diagnosis | Comments | | | ty | | | | + +--------+ + + + | PROCEDURE NOTE | Routin | 08/30/2015 | | Results for this | | | e | 10:39 PM | | procedure are in the | | | | PST | | results section. | + +--------+ + + + | CT ABDOMEN AND | Routin | 12/03/2012 | H/O ventral hernia | Results for this | | PELVIS W IV CONTRAST | e | 9:29 AM | repair | procedure are in the | | | | PDT | | results section. | + +--------+ + + + | CREATININE, POC | Routin | 12/03/2012 | | Results for this | | | e | 9:09 AM | | procedure are in the | | | | PDT | | results section. | + +--------+ + + + documented in this encounter Results PROCEDURE NOTE (08/30/2015 10:39 PM PST) + + | Transcriptions | + + | Tania Martins - 12/14/2012 11:18 AM PDT | + + CT ABDOMEN & PELVIS W IV CONTRAST [...] | | | + +---------+ + + ROUTINE CHEMISTRY TESTS (RADIOLOGY), POC (12/03/2012 9:09 AM PDT) + +-------+ + + + | Component | Value | Ref Range | Performed | Pathologist | | | | | At | Signature | + +-------+ + + + | BUN, POC | 12 | 6 - 20 mg/dL | [facility], | | | | | | POINT OF | | | | | | CARE TESTS | | + +-------+ + + + | CREATININE, | 1.0 | 0.7 - 1.3 mg/dL | [facility], | | | POC | | | POINT OF | | | | | | CARE TESTS | | + +-------+ + + + + + | Specimen | + + | | + + + + + + + | Performing | Address | City/State/Zipcode | Phone Number | | Organization | | | | + + + + + | [facility] | [address] | [place] [address] | | | OF CARE TESTS | | | | + + + + + documented in this encounter Visit Diagnoses + + | Diagnosis | + + | H/O ventral hernia repair Personal history of surgery to other organs | + + documented in this encounter"
--- OUTSIDE RECORDS SUMMARY | ~2019-04-25 | XMS | Encounter Summary ---
Demographics + + + | Address | [address] | | | [place] [address] | + + + | Home Phone [...] + + + | Author | [facility] | + + + | Organization | [facility] | + + + [...] [place] | | | | | [address] | | + + + + + Care Team Providers + +------+ + | Care Ear Pull Machine Operator Name | Role | Phone | + +------+ + | Kerri Chavarria NP | PCP | | + +------+ + Encounter Details +--------+ + + + + | Date | Type | Department | Care Team | Description | +--------+ + + + + | 06/01/ | Telephone | [facility] | Lalo Alcaraz, | | | 2011 | | [facility] [address] | [address] | | | | | [address] | [address] | | | | | Mailcode: [facility] | [place], [place] | | | | | [facility] and | [address] | | | | | [place] [address] | [phone] | | | | | [place], [place] | | | | | | [address] | | | | | | [phone] | | | +--------+ + + + [...] + + | 04/29/ | Diagnostic | Mica Plate Layer Hand | Marce Meyer | | | 2019 | Visit | | Eve Briseno [address] [place] [address] | | | | | | [address] | | | | | | [place] | | | | | | [address] | | +--------+ + + + + documented as of this encounter Visit Diagnoses Not on filedocumented in this encounter"
--- OUTSIDE RECORDS SUMMARY | ~2019-04-25 | XMS | Encounter Summary ---
Demographics + + + | Address | [address] | | | [place] [address] | + + + | Home Phone [...] [place] | | | | | [address] | | + + + + + Care Team Providers + +------+ + | Care Flare Stitcher Name | Role | Phone | + +------+ + | Jaison Chávez MD | PCP | | + +------+ + Encounter Details +--------+ + + + + | Date | Type | Department | Care Team | Description | +--------+ + + + + | 09/22/ | Results | [facility] | Marion Rees, | | | 2008 | Only | Department | MARY Walker | | | | | | [place] [facility] | | | [facility] | | [facility] [address] | [address] [place], | | | | | | [place] [address] | | | | | | [phone] | | | | | | | [...] + + | 04/29/ | Diagnostic | Enrollment Management Manager | Marce Meyer | | | 2019 | Visit | | Eve Briseno [address] | | | | | | [address] | | | | | | [place], [place] | | | | | | [address] | | +--------+ + + + + documented as of this encounter Procedures + +--------+ + + + | Procedure Name | Priori | Date/Time | Associated Diagnosis | Comments | | | ty | | | | + +--------+ + + + | CHEST 2 VIEW [id number] | Routin | 09/22/2008 | | Results for this | | | e | 10:24 AM | | procedure are in the | | | | PST | | results section. | + +--------+ + + + | CBC W/DIFF, REFLEX | Routin | 09/22/2008 | | Results for this | | | e | 9:50 AM | | procedure are in the | | | | PST | | results section. | + +--------+ + + + | UA, DIPSTICK ONLY | Routin | 09/22/2008 | | Results for this | | | e | 9:50 AM | | procedure are in the | | | | PST | | results section. | + +--------+ + + + | COMPLETE METABOLIC | Routin | 09/22/2008 | | Results for this | | SET | e | 9:50 AM | | procedure are in the | | (NA,K,CL,CO2,BUN,CRE | | PST | | results section. | | AT,GLUC,CA,AST,ALT,B | | | | | | TERRY TOTAL,ALK | | | | | | PHOS,ALB,PROT TOTAL) | | | | | + +--------+ + + + documented in this encounter Results CHEST 2 VIEW [id number] (09/22/2008 10:24 AM PST) + + | Specimen | + + | | + + + + + | Narrative | Performed At | + + + | TWO VIEWS OF THE CHEST CLINICAL HISTORY: Fever. | [facility] | | TECHNIQUE: PA and lateral views of the chest were obtained. | DEPARTMENT OF | | COMPARISON: Portable chest x-ray from 08/12/08. FINDINGS: The | RADIOLOGY | | heart size is normal. There is no infiltrate, pneumothorax, | | | effusion or evidence of pulmonary vascular congestion. There is a | | | linear area of atelectasis within the posterior aspect of the upper | | | lobes, possibly the right upper lobe. Mild multilevel degenerative | | | changes are seen within the thoracic spine. IMPRESSION: No acute | | | infiltrate. [id number] | | + + + + + | Procedure Note | + + | Interface, Radiology Results - 03/16/2015 11:52 AM PDT TWO VIEWS OF THE CHEST | | CLINICAL HISTORY: Fever. | | TECHNIQUE: PA and lateral views of the chest were obtained. | | COMPARISON: Portable chest x-ray from 08/12/08. | | FINDINGS: The heart size is normal. There is no infiltrate, | | pneumothorax, effusion or evidence of pulmonary vascular congestion. | | There is a linear area of atelectasis within the posterior aspect of | | the upper lobes, possibly the right upper lobe. Mild multilevel | | degenerative changes are seen within the thoracic spine. | | IMPRESSION: No acute infiltrate. | | [id number] | + + + +---------+ + + | Performing | Address | City/State/Zipcode | Phone Number | | Organization | | | | + +---------+ + + | [facility] DEPARTMENT OF | | | | | RADIOLOGY | | | | + +---------+ + + SRUTHI MUNIZ ONLY (09/22/2008 9:50 AM PST) + + + + + + | Component | Value | Ref Range | Performed | Pathologist | | | | | At | Signature | + + + + + + | COLOR(UR) | LIGHT YELLOW | YELLOW | [facility] | | | | | | A MEDICAL | | | | | | CENTER | | + + + + + + | APPEARANCE | SL. CLOUDY | CLEAR | [facility] | | | [...] + + + + | BLOOD | TRACE [...] + + + + | LEUKOCYTE | POS [...] + + + + + | WHITE CELLS | 3-5 | 0 - 2 HPF | [facility] | | | | | | A MEDICAL | | | | | | CENTER | | + + + + + + | RED CELLS | 0-3 | 0 - 3 HPF | [facility] | | | | | | A MEDICAL | | | | | | CENTER | | + + + + + + | EPITHELIAL | FEW | RARE-MOD LPF | [facility] | | | CELLS | | | A MEDICAL | | | | | | CENTER | | + + + + + + | BACTERIA | TRACE | NEG HPF | [facility] | | | | | | A MEDICAL | | | | | | CENTER | | + + + + + + | OTHER | MUCUS PRESENT | | [facility] | | | | [...] + + + | [facility] | [place] | [place] [address] | | | MEDICAL CENTER | Streets | | | + + + + + CBC W/DIFF, REFLEX (09/22/2008 9:50 AM PST) + + + + + + | Component | Value | Ref Range | Performed | Pathologist | | | | | At | Signature | + + + + + + | WHITE BLOOD | 14.4 (H) | 4.3 - 11.0 X10 | [facility] | | | CELL COUNT | | 3/ul | A MEDICAL | | | | | | CENTER | | + + + + + + | HEMOGLOBIN | 7.7Comment: @Avg 7.6,7.8 | 12.0 - 16.0 | [facility] | | | | = 7.7 09/22/08 1005 | g/dL | A MEDICAL | | | | [facility].Z[facility]@CALLED TO [facility] | | CENTER | | | | AT [address] | | | | | | | | | | + + + + + + | RED BLOOD | 2.71 (L) | 4.7 - 6.1 X10 | [facility] | | | CELL COUNT | | 6/uL | A MEDICAL | | | | | | CENTER | | + + + + + + | HEMATOCRIT | 22.2Comment: @Avg | 40.0 - 54.0 % | [facility] | | | | 22.3,22.1 = 22.2 | | A MEDICAL | | | | 09/22/08 1005 | | CENTER | | | | [place]@CALLED TO [facility] | | | | | | AT [address] | | | | + + + + + + | MCV | 82.3 | 82 - 100 fl | [facility] | | | | | | A MEDICAL | | | | | | CENTER | | + + + + + + | MCH | 27.9 (L) | 28.0 - 32.0 pg | [...] + + + + | RDW | 15.3 (H) | 12 - 15 fL | [facility] | | | | | | A MEDICAL | | | | | | CENTER | | + + + + + + | PLATELET | 385 | 150 - 450 X10 3 | [...] + + + + | NEUTROPHIL | 71.4 | 40 - 80 % | [facility] | | | % | | | A MEDICAL | | | | | | CENTER | | + + + + + + | LYMPHOCYTE | 12.2 | 10 - 45 % | [facility] | | | % | | | A MEDICAL | | | | | | CENTER | | + + + + + + | EOS % | 3.7 | 0 - 5 % | [facility] | | | | | | A MEDICAL | | | | | | CENTER | | + + + + + + | BASO % | 2.2 (H) | 0 - 1 % | [facility] | | | | | | A MEDICAL | | | | | | CENTER | | + + + + + + | MONOCYTE % | 10.5 (H) | 2 - 10 % | [facility] | | | | | | A MEDICAL | | | | | | CENTER | | + + + + + + | BANDS % | DRY PAN OPERATOR | 0 - 7 % | [facility] | | | | | | A MEDICAL | | | | | | CENTER | | + + + + + + | CBC | ERROR FLAGS -HEMATOLOGY | | [facility] | | | COMMENTS | INSTR. DRY PAN OPERATOR | | A MEDICAL | | | | | | CENTER | | + + + + + + | CBC | DEFINITIVE FLAG DRY PAN OPERATOR | | [facility] | | | COMMENTS [...] | [address] | [place] [address] | | | MEDICAL CENTER | Streets | | | + + + + + COMPLETE METABOLIC SET (NA,K,CL,CO2,BUN,CREAT,GLUC,CA,AST,ALT,BILI TOTAL,ALK PHOS,ALB,PROT TOTAL) (09/22/2008 9:50 AM PST) + + + + + + | Component | Value | Ref Range | Performed | Pathologist | | | | | At | Signature | + + + + + + | SODIUM, | 127 (L)Comment: @Avg | 137 - 146 MEQ/L | [facility] | | | PLASMA | 127,127 = 127 09/22/08 | | A MEDICAL | | | (LAB) | [address] | | CENTER | | + + + + + + | POTASSIUM, | 5.6 (H) | 3.5 - 5.2 MEQ/L | [facility] | | | PLASMA | | | A MEDICAL | | | (LAB) | | | CENTER | | + + + + + + | CO2 | 23 | 22 - 28 MEQ/L | [facility] [...] + + + + | GLUCOSE, | 130 (H) | 70 - 105 MG/DL | [facility] | | | PLASMA | | | A MEDICAL | | | (LAB) | | | CENTER | | + + + + + + | BUN, PLASMA | 23 | 8 - 30 MG/DL | [facility] | | | (LAB) | | | A MEDICAL | | | | | | CENTER | | + + + + + + | CREATININE | 1.50 (H) | 0.9 - 1.3 MG/DL | [facility] | | | PLASMA | | | A MEDICAL | | | (LAB) | | | CENTER | | + + + + + + | BUN/CREATIN | 15 | 6 - 20 RATIO | [facility] [...] + + + + | AST(SGOT) | 31 | 10 - 41 U/L | [facility] | | | | | | A MEDICAL | | | | | | CENTER | | + + + + + + | ALT (SGPT) | 23 | 7 - 51 U/L | [facility] | | | | | | A MEDICAL | | | | | | CENTER | | + + + + + + | ALK PHOS | 50 | 40 - 180 U/L | [facility] [...] + + + + | ALBUMIN, | 2.9 (L) | 3.5 - 5.0 G/DL | [facility] [...] + + + + | FASTING? | UNKNOWN | HR | [facility] | | | [...] + + + + + | [facility] | | | | | LABORATORY | | | | + + + + + | [facility] | [facility] [place] | [place] [address] | | | [facility] | [facility] | | | + + + + + documented in this encounter Visit Diagnoses Not on filedocumented in this encounter"
--- OUTSIDE RECORDS SUMMARY | ~2019-04-25 | XMS | Encounter Summary ---
Demographics + + + | Address | [address] | | | [place] [address] | + + + | Home Phone | | + + + | Preferred Language | Unknown | + + + | Marital Status | Single | + + + | Islam Affiliation | BAP | + + + [...] [place] | | | | | [address] | | + + + + + Care Team Providers + +------+ + | Care Sand Cleaning Machine Operator Name | Role | Phone | + +------+ + | Cee Triana MD | PCP | Unavailable | + +------+ + Reason for Visit + + + | Reason | Comments | + + + | Pre-operative | VENTRAL HERNIA REPAIR on 08/19/2012 at 11:15 AM by Ayana Jovel | | evaluation | MD Luke at [facility] 6A | + + + Encounter Details [...] | | pre-operative | | | | [facility] | | examination; Heart | | | | [address] [place] [address], [place] | | attack (HCC); | | | | [address] | | Chronic airway | | | | [phone] | | obstruction, not | | | [...] Juliana Thomas MD - 08/13/2012 1:40 PM [facility] PREOPERATIVE INSTRUCTIONS Empty stomach before surgery! On [...] Surgery Check in Locations Day Stay Unit [facility], fourth floor Room 2024 [facility] Day Stay [facility], fourth floor Admitting [facility], sixth floor Surgery Check in Time: [...] it is after office hours, call the [facility] transit operator at [phone] and ask them to page him or h er. Preparing For Your Surgery Video -- 7 minutes of instructions! If you have access to the Internet and would like to review our instructional video about g etting ready for your procedure day, please follow these directions: Access the [facility] website [email or web address] --> POPULAR RESOURCES --> Patient Guide --> [...] 11:15 AM by Ayana Butler MD at [facility] 6A HISTORY OF PRESENT ILLNESS: Edgar Marquez [...] he becomes constipated. His medical history includes: DE in approximately 2007 per patient when he presented to [facility] wi th chest pain. He says that no catheterization was done. He denies any recurrence of chest p ain since that event or history of CHF. Stress echo today (results below). Contacted [facility] bu t no records other than prior EKG available. He does not have a product marketing consultant. Left sciatic nerve injury with paresis and [...] and PMHX. Document will be scanned in [employer]. Pulmonary: Within Defined Limits except as noted below cough recent no URI no shortness of breath no wheezing COPD moderate (chronic bronchodilator used) Dx of sleep apnea Uses BiPap/CPAP Cardiovascular: Within Defined Limits except as noted below Functional Capacity: Low - PND CAD Cad Sx: past DE Last DE: > 1 year no CHF hypertension well [...] further investigation and manageme nt. A. Acute DE within 7 days: no B. Unstable angina/Recent DE (7- 30 days): no C. Decompensated CHF: [...] no Rate of cardiac , non fatal DE, non fatal cardiac arrest (RCRI) 1 risk factors - 1%, Risk Factor Recommendations: 1-2 risk factors- proceed with planned surgery with HR control or consider noninvasive testing if it will exchange engineer Surgery Risk: Intermediate Patient-related risk: Estimated ASA [...] on these results, further testing unlikely to exchange engineer and recommend proceeding with planned surgery with [...] to this patient's care. JULIANA THOMAS MD [facility] PREOPERATIVE MEDICINE CLINIC [address] [place] [address] [phone] signed by Juliana Thomas MD at 08/14/2012 9:55 PM PSTdocume nted in this encounter Plan of Treatment +--------+ + + + + | Date | Type | Specialty | Care Team | Description | +--------+ + + + + | 04/29/ | Diagnostic | Motor Racer | Marce Meyer | | | 2019 | Visit | | Finn, Eve [address] [facility] | | | | | | [address] | | | | | | [place] | | | | | | [address] | | +--------+ + + + + [...] | + +--------+ + + + | SC COLLECTION VENOUS | Routin | 08/13/2012 | [...] | + +--------+ + + + | SC COLLECTION VENOUS | Routin | 08/13/2012 | [...] [place] | [address] | [place], [place] | | | LUCERO POINT OF CARE | [address] | [address] | | | TESTS | | | [...] [facility] | [address] | [place] [address] | | | SERVICES, CORE | PARK [...] | + + + + + | [facility] | [address] | [place] [address] | | | SERVICES, | [address] [...] [facility] | [address] | [place] [address] | | | SERVICES, | [address] [...] | | | LABORATORY | | | CROATIAN | | | SERVICES, | | | [...] | + + + + + | [facility] | [address] | [place] [address] | | | JUAN OSPINA | [address] [...] view image for the detailed interpretation from [employer] results. | CARDIOLOGY | + + + + + + + + | Performing | Address | City/State/Zipcode | Phone Number | | Organization | | | | + + + + + | [facility] | [address] | [place], [place] | | | CARDIOLOGY | [address] | [address] | | + + + + + [...]
--- OUTSIDE RECORDS SUMMARY | ~2019-04-25 | XMS | Encounter Summary ---
Demographics + + + | Address | [address] | | | [place] [address] | + + + | Home Phone | | + + + | Preferred Language | Unknown | + + + | Marital Status | Single | + + + | Mosque Affiliation | BAP | + + + [...] [place] | | | | | [address] | | + + + + + Care Team Providers + +------+ + | Care Search Marketing Specialist Name | Role | Phone | [...] | | Toya Spencer Mailcode: | [address] [place], [place] | | | | | [address] | [address] | | | | | [place], | | | | | | [place] [address] | | | | | | [phone] | | | +--------+ + + + [...] + + | 04/29/ | Diagnostic | K 9 Police Officer | Marce Meyer | | | 2018 | Visit | | Eev Briseno [address] [facility] | | | | | | [address] | | | | | | [place], [place] | | | | | | [address] | | +--------+ + + + + documented as of this encounter Visit Diagnoses Not on filedocumented in this encounter"
--- OUTSIDE RECORDS SUMMARY | ~2019-04-25 | XMS | Encounter Summary ---
Demographics + + + | Address | [address] | | | [place] [address] | + + + | Home Phone [...] | Margarito Owusu | ECON | [address] | | | | | [place] | | | | | [address] | | + + + + + Care Team Providers + +------+ + | Care Railroad Car Truck Builder Name | Role | Phone | + +------+ + PCP | Unavailable | + +------+ + Encounter Details +--------+ + + + + | Date | Type | Department | Care Team | Description | +--------+ + + + + | 04/24/ | Office | | Note, Outpatient | [...] as of this encounter Progress Notes Interface, Reinsurance Analyst In - 02/23/2005 8:01 AM PDT [id number] [facility] Date: 04/24/2004 Clinic: Subjective: Edgar is a gentleman now 2 weeks post cochlear implant. He has done well without discharge or irritation. Physical Examination: Examination of his incision shows it to be healing extremely well. Examination of his ears shows there is still some blood behind the drum but otherwise it is clear. Canal is normal. Plan: He needs to be scheduled for his programing in 4 weeks. Aamir Chan M.D. TONY / [id number] / [id number] / [id number] / documented i n this encounter Plan of Treatment +--------+ + + + + | Date | Type | Specialty | Care Team | Description | +--------+ + + + + | 04/29/ | Diagnostic | Director Of Vendor Management | Marce Meyer | | | 2019 | Visit | | Finn, Eve [address] [facility] | | | | | | [address] | | | | | | [place] | | | | | | [address] | | +--------+ + + + + documented as of this encounter Visit Diagnoses Not on filedocumented in this encounter"
--- OUTSIDE RECORDS SUMMARY | ~2019-04-25 | XMS | Encounter Summary ---
Demographics + + + | Address | [address] | | | [place] [address] | + + + | Home Phone [...] + + + | Author | [facility] | + + + | Organization | [facility] | + + + | Address | Unknown | + + + | Phone | Unavailable | + + + Support + + + + + | Name | Relationship | Address | Phone | + + + + + | Margarito Owusu | ECON | [address] | | | | | [place] | | | | | [address] | | + + + + + Care Team Providers + +------+ + | Care Creative Services Director Name | Role | Phone | + +------+ + | Jaison Chávez MD | PCP | | + +------+ + Reason for Visit +--------+ + | Reason | Comments | +--------+ + | Other | Was supposed to have surgery yesterday & Anesthesiologist told | | | him he needs to get his lungs cleared up first, etc. Would like a | | | call back to discuss please. Thank you | +--------+ + Encounter Details +--------+ + + + + | Date | Type | Department | Care Team | Description | +--------+ + + + + | 03/31/ | Telephone | Otolaryngology | Willie Plunkett, | Other (Was supposed | | 2012 | | Otology Services at | MD | to have surgery | | | | [facility] [address] | | yesterday & | | | | [address] | | Anesthesiologist | | | | Mailcode: [address] | | told him he needs to | | | | [facility] | | get his lungs | | | | [place], [place] | | cleared up first, | | | | [address] | | etc. Would like a | | | | [phone] | | call back to discuss | | | | | | please. Thank you) | +--------+ + + + + Social [...] + + | 04/29/ | Diagnostic | Expeditionary Force Combat Skills | Marce Meyer | | | 2019 | Visit | | Finn, Eve [address] | | | | | | [address] | | | | | | [place], [place] | | | | | | [address] | | +--------+ + + + + documented as of this encounter Visit Diagnoses Not on filedocumented in this encounter"
--- OUTSIDE RECORDS SUMMARY | ~2019-04-25 | XMS | Encounter Summary ---
Demographics + + + | Address | [address] | | | [place] [address] | + + + | Home Phone [...] Author + + + | Author | [facility] | + + + | Organization | [facility] | + + + | Address | Unknown | + + + | Phone | Unavailable | + + + Support + + + + + | Name | Relationship | Address | Phone | + + + + + | Margarito Owusu | ECON | [address] | | | | | [place] | | | | | [address] | | + + + + + Care Team Providers + +------+ + | Care Profile Grinder Technician Name | Role | Phone | + +------+ + | Cee Triana MD | PCP | Unavailable | + +------+ + Encounter Details +--------+ + + + + | Date | Type | Department | Care Team | Description | +--------+ + + + + | 08/03/ | Telephone | Digestive Health | Ayana Butler W, | | | 2012 | | Center at [facility] [address] | [address] | | | | | [address] | [facility] [place] | | | | | Mailcode: [place] | [address] | | | | | for Health and | [phone] | | | | | [facility] | | | | | | [place], [place] | | | | | | [address] | | | | | | [phone] | | | +--------+ + + + [...] + + | 04/29/ | Diagnostic | Louver Mortiser Operator | Marce Meyer | | | 2019 | Visit | | Eve Briseno [address] [place] [address] | | | | | | [address] | | | | | | [place] | | | | | | [address] | | +--------+ + + + + documented as of this encounter Visit Diagnoses Not on filedocumented in this encounter"
--- OUTSIDE RECORDS SUMMARY | ~2019-04-25 | XMS | Encounter Summary ---
Demographics + + + | Address | [address] | | | [place] [address] | + + + | Home Phone | | + + + | Preferred Language | Unknown | + + + | Marital Status | | + + + | Pentecostalism Affiliation | Unknown | + + + | Race | Unknown | + + + | Ethnic Group | Unknown | + + + Author + + + | Author | [facility] | | | and [place] | + + + | Organization | [facility] | | | and [...] Team Providers + +------+ + | Care Tube Drawing Supervisor Name | Role | Phone | + +------+ + | Maurice Zelaya MD | PCP | | + +------+ + Reason for Visit + + + | Reason | Comments | + + + | Medication Refill | | + + + Encounter Details +--------+--------+ + + + | Date | Type | Department | Care Team | Description | +--------+--------+ + + + | 04/14/ | Refill | [facility] [place] | Jose Hua, | Medication Refill | | 2019 | | PULMONARY [address] | MD [address] | | | | | [place], | [place], [place] | | | | | [place] [address] | [address] | | | | | [phone] | | | +--------+--------+ + + + Social History + +-------+ [...] Jaret Thompson MD [address] | | | 2019 | Visit | | [address] | | | | | | [place] | | | | | | [place] [address] | | | | | | [phone] | | | | | | | | +--------+---------+ + + + | 07/13/ | Office | Pulmonology | Hua Garcia, | | | 2018 | Visit | | MD [address] | | | | | | [place] | | | | | | [address] | | | | | | | | +--------+---------+ + + + documented as of this encounter Visit Diagnoses Not on filedocumented in this encounter"
--- OUTSIDE RECORDS SUMMARY | ~2019-04-25 | XMS | Encounter Summary ---
Demographics + + + | Address | [address] | | | [place] [address] | + + + | Home Phone [...] [place] | | | | | [address] | | + + + + + Care Team Providers + +------+ + | Care Shopper Marketing Manager Name | Role | Phone | [...] + + + | Closed | | Link Fabric Machine Operator | Diagnoses | Angelo Card Ent | | | | | Neural | Deidre A, | Cochlear Ppv | | | | | hearing | MD | [address] | | | | | loss, | [place] | [facility] | | | | | bilateral | INTERNAL | Rd Mailcode: | | | | | | MEDICINE | [address] | | | | | | [address] | Physician[address] | | | | | | [address] | Pavilion | | | | | | [address] | [place], [place] | | | | | | [place], | [address] | | | | | | [place] [address] | Phone: | | | | | | Phone: | [phone] | | | | | | [phone] | Fax: | | | | | | Fax: | [phone] | | | | | | [phone] | | +--------+--------+ + + + + Encounter Details +--------+---------+ + + + | Date | Type | Department | Care Team | Description | +--------+---------+ + + + | 05/12/ | Office | Otolaryngology | Pascual Pace, | Neural Hearing Loss, | | 2008 | Visit | Cochlear Services | Melodie [facility] [address] | Bilateral (Primary | | | | [address] | Dx) | | | | Toya Spencer Mailcode: | [place], [place] | | | | | [address] | [address] | | | | | [place], | | | | | | [place] [address] | | | | | | [phone] | | | +--------+---------+ + + + [...] year-old ma le 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 Mr. Marquez has [...] The patient's processor was connected to the [employer] for programming. His current 3G sett ings [...] Melodie Herbert M.A., CCC-A Clinical & Rehabilitative Link Fabric Machine Operator [facility] Cochlear Implant Program Departement of Otolaryngology/Head & Neck Surgery documented in t his encounter Plan of Treatment +--------+ + + + + | Date | Type | Specialty | Care Team | Description | +--------+ + + + + | 04/29/ | Diagnostic | Link Fabric Machine Operator | Marce Meyer | | | 2019 | Visit | | K, Eve [address] [facility] | | | | | | [address] | | | | | | [place], [place] | | | | | | [address] | | +--------+ + + + + documented as of this encounter Visit Diagnoses + + | Diagnosis | + + | Neural hearing loss, bilateral - Primary | + + documented in this encounter"
--- OUTSIDE RECORDS SUMMARY | ~2019-04-25 | XMS | Encounter Summary ---
Demographics + + + | Address | [address] | | | [place] [address] | + + + | Home Phone [...] [place] | | | | | [address] | | + + + + + Care Team Providers + +------+ + | Care Print And Pattern Designer Name | Role | Phone | + +------+ + | No Pcp Per Patient | PCP | Unavailable | + +------+ + Encounter Details +--------+ + + + + | Date | Type | Department | Care Team | Description | +--------+ + + + + | 03/07/ | Telephone | Digestive Health | Ayana Butler W, | | | 2012 | | Center at [facility] [address] | MD [address] | | | | | [address] | [place], [place] | | | | | Mailcode: [place] | [address] | | | | | for Health and | [phone] | | | | | [facility] [address] | | | | | | [place], [place] | | | | | | [address] | | | | | | [phone] | | | +--------+ + + + [...] + + | 04/29/ | Diagnostic | Data Collection Associate | Marce Meyer | | | 2019 | Visit | | Eve Briseno [address] [facility] | | | | | | [address] | | | | | | [place] | | | | | | [address] | | +--------+ + + + + documented as of this encounter Visit Diagnoses Not on filedocumented in this encounter"
--- OUTSIDE RECORDS SUMMARY | ~2019-04-25 | XMS | Encounter Summary ---
Demographics + + + | Address | [address] | | | [place] [address] | + + + | Home Phone [...] [place] | | | | | [address] | | + + + + + Care Team Providers + +------+ + | Care Neurology Director Name | Role | Phone | [...] | +--------+ + + + + | 02/11/ | Telephone | Otolaryngology | Pascual Pace, | Hearing loss | | 2009 | | Hearing | Melodie [facility] [address] | | | | | Amplification | [address] | | | | | Services [address] [place], [place] | | | | | [address] | [address] | | | | | Mailcode: [address] | | | | | | Physician's Chris | | | | | | [place], [place] | | | | | | [address] | | | | | | [phone] | | | +--------+ + + + [...] + | 04/29/ | Diagnostic | Manager Gyn | Marce Meyer | | | 2019 | Visit | | Eve Briseno [address] | | | | | | [address] | | | | | | [place] | | | | | | [address] | | +--------+ + + + + documented as of this encounter Visit Diagnoses Not on filedocumented in this encounter"
--- OUTSIDE RECORDS SUMMARY | ~2019-04-25 | XMS | Encounter Summary ---
Demographics + + + | Address | [address] | | | [place] [address] | + + + | Home Phone [...] [place] | | | | | [address] | | + + + + + Care Team Providers + +------+ + | Care Tubing Mill Setter Name | Role | Phone | + [...] + + + + | 08/19/ | Anesthesia | 6A Intra Op [facility] | Lloyd Rodriguez, | | | 2012 | Event | [facility] | MDDMD [address] | | | | | Admitting Desk | [address] | | | | | Located on the 9 | [place], [place] | | | | | floor [address] | [address] | | | | | [address] | [phone] | | | | | [place], [place] | | | | | | [address] | | | +--------+ + + + + Anesthesia Record + + [...] | Meds | +------+ + + + | Name | Total | + + + | midazolam | 6 mg | + + + | rocuronium | 150 mg | + + + | ceFAZolin | 2,000 mg | + + + | fentaNYL | 400 mcg | + + + | lidocaine 2% | 100 mg | + + + | propofol | 200 mg | + + + | succinylcholine | 140 mg | + + + | HYDROmorphone | 4 mg | + + + | acetaminophen IV | 1,000 mg | + + + | glycopyrrolate | 0.7 mg | + + + | neostigmine | 5 mg | + + + | ondansetron | 4 mg | + + + | LR | 2,100 mL | + + + + + | Name | + + | Insp Santi | + + | Et Santi | + + | O2 Flow Rate (Total Liters) | + + | Air Flow rate (L/min) | + + + + | No [...] Dumas, | Rossi Mccloud RN | | Sharlah | Positive | RN | | | eral | | | | | Line | | | | +--------+ + + + | RETIRE | 08/19/12; 1135; 08/21/12; 1400; | 08/19/12 1135 by | 08/21/12 1400 by | | D - | Shana; 16FR | Damian Rivera RN | Rossi Mccloud RN | | Anjelicar | | | | | y Cath [...] + + | 04/29/ | Diagnostic | Wildlife Refuge Manager | Marce Meyer | | | 2019 | Visit | | Eve Briseno [address] | | | | | | [address] | | | | | | [place], [place] | | | | | | [address] | | +--------+ + + + + documented as of this encounter Visit Diagnoses Not on filedocumented in this encounter Administered Medications + +--------+ + +------+------+ | Medication Order | MAR | Action | Dose | Rate | Site | | | Action | Date | | | | + +--------+ + +------+------+ | acetaminophen (aka OFIRMEV) IV | Given | 08/19/19 | 1,000 mg | | | | INTRAPROCEDURE PRN, Starting Lindsay | | 13 2:00 | | | | | 08/19/12 at 1400, Until Lindsay | | PM PST | | | | | 08/19/12 at 1519 | | | | | | + +--------+ + +------+------+ +---+---+ | | | +---+---+ + +-------+ + +---+---+ | ceFAZolin (aka ANCEF) injection | Given | 08/19/19 | 2,000 mg | | | | intravenous, INTRAPROCEDURE | | 13 11:42 | | | | | PRN, Starting Lindsay 08/19/12 at | | AM PST | | | | | 1142, Until Lindsay 08/19/12 at 1519 | | | | | | + +-------+ + +---+---+ +---+---+ | | | +---+---+ + +-------+ +--------+---+---+ | fentaNYL citrate (PF) (akmarta | Given | 08/19/19 | 50 mcg | | | | SUBLIMAZE) injection | | 13 3:00 | | | | | INTRAPROCEDURE PRN, Starting Lindsay | | PM PST | | | | | 08/19/12 at 1129, Until Lindsay | | | | | | | 08/19/12 at 1519, sedation | | | | | | + +-------+ +--------+---+---+ +-------+ +---------+---+---+ | Given | 08/19/19 | 150 mcg | | | | | 13 2:45 | | | | | | PM PST | | | | +-------+ +---------+---+---+ | Given | 08/19/19 | 50 mcg | | | | | 13 12:29 | | | | | | PM PST | | | | +-------+ +---------+---+---+ +---+---+ | | | +---+---+ + +-------+ +--------+---+---+ | glycopyrrolate (loli VEGA) | Given | 08/19/19 | 0.7 mg | | | | injection INTRAPROCEDURE PRN, | | 13 2:40 | | | | | Starting Lindsay 08/19/12 at 1440, | | PM PST | | | | | Until Lindsay 08/19/12 at 1519 | | | | | | + +-------+ +--------+---+---+ +---+---+ | | | +---+---+ + +-------+ +--------+---+---+ | HYDROmorphone (loli BLAIR) | Given | 08/19/19 | 0.4 mg | | | | injection INTRAPROCEDURE PRN, | | 13 3:00 | | | | | Starting Lindsay 08/19/12 at 1149, | | PM PST | | | | | Until Lindsay 08/19/12 at 1519, | | | | | | | sedation | | | | | | + +-------+ +--------+---+---+ +-------+ +--------+---+---+ | Given | 08/19/19 | 0.8 mg | | | | | 13 2:43 | | | | | | PM PST | | | | +-------+ +--------+---+---+ | Given | 08/19/19 | 0.4 mg | | | | | 13 2:00 | | | | | | PM PST | | | | +-------+ +--------+---+---+ +---+---+ | | | +---+---+ + + + +----+---+---+ | lactated ringers IV | given by | 08/19/19 | mL | | | | INTRAPROCEDURE CONTINUOUS PRN, | | 13 3:15 | | | | | Starting Lindsay 08/19/12 at 1134, | anesthes | PM PST | | | | | Until [facility] 08/19/12 at 1519 | iology | | | | | + + + +----+---+---+ +---------+ +----+---+---+ | New Bag | 08/19/19 | mL | | | | | 13 2:45 | | | | | | PM PST | | | | +---------+ +----+---+---+ | New Bag | 08/19/19 | mL | | | | | 13 1:15 | | | | | | PM PST | | | | +---------+ +----+---+---+ +---+---+ | | | +---+---+ + +-------+ +--------+---+---+ | lidocaine (aka XYLOCAINE MPF) | Given | 08/19/19 | 100 mg | | | | 20 mg/mL (2 %) injection | | 13 11:29 | | | | | INTRAPROCEDURE PRN, Starting Lindsay | | AM PST | | | | | 08/19/12 at 1129, Until Lindsay | | | | | | | 08/19/12 at 1519 | | | | | | + +-------+ +--------+---+---+ +---+---+ | | | +---+---+ + +-------+ +------+---+---+ | midazolam (aka VERSED) | Given | 08/19/19 | 1 mg | | | | injection INTRAPROCEDURE PRN, | | 13 11:21 | | | | | Starting Lindsay 08/19/12 at 1112, | | AM PST | | | | | Until Lindsay 08/19/12 at 1519, | | | | | | | sedation | | | | | | + +-------+ +------+---+---+ +-------+ +------+---+---+ | Given | 08/19/19 | 1 mg | | | | | 13 11:19 | | | | | | AM PST | | | | +-------+ +------+---+---+ | Given | 08/19/19 | 1 mg | | | | | 13 11:17 | | | | | | AM PST | | | | +-------+ +------+---+---+ +---+---+ | | | +---+---+ + +-------+ +------+---+---+ | neostigmine (aka PROSTIGMIN) | Given | 08/19/19 | 5 mg | | | | injection intravenous, | | 13 2:41 | | | | | INTRAPROCEDURE PRN, Starting Lindsay | | PM PST | | | | | 08/19/12 at 1441, Until Lindsay | | | | | | | 08/19/12 at 1519 | | | | | | + +-------+ +------+---+---+ +---+---+ | | | +---+---+ + +-------+ +------+---+---+ | ondansetron (loli HUMPHREY) | Given | 08/19/19 | 4 mg | | | | injection INTRAPROCEDURE PRN, | | 13 2:58 | | | | | Starting Lindsay 08/19/12 at 1458, | | PM PST | | | | | Until Lindsay 08/19/12 at 1519 | | | | | | + +-------+ +------+---+---+ +---+---+ | | | +---+---+ + +-------+ +--------+---+---+ | propofol INTRAPROCEDURE PRN, | Given | 08/19/19 | 200 mg | | | | Starting Lindsay 08/19/12 at 1129, | | 13 11:29 | | | | | Until Lindsay 08/19/12 at 1519 | | AM PST | | | | + +-------+ +--------+---+---+ +---+---+ | | | +---+---+ + +-------+ +-------+---+---+ | rocuronium (rubensa ZEMURON) | Given | 08/19/19 | 10 mg | | | | injection INTRAPROCEDURE PRN, | | 13 2:17 | | | | | Starting Lindsay 08/19/12 at 1141, | | PM PST | | | | | Until Lindsay 08/19/12 at 1519, | | | | | | | Neuromuscular block | | | | | | + +-------+ +-------+---+---+ +-------+ +-------+---+---+ | Given | 08/19/19 | 10 mg | | | | | 13 1:45 | | | | | | PM PST | | | | +-------+ +-------+---+---+ | Given | 08/19/19 | 30 mg | | | | | 13 1:15 | | | | | | PM PST | | | | +-------+ +-------+---+---+ +---+---+ | | | +---+---+ + +-------+ +--------+---+---+ | SUCCINYLCHOLINE CHLORIDE 20 | Given | 08/19/19 | 140 mg | | | | MG/ML INJ (PROSED/RSI) | | 13 11:29 | | | | | INTRAPROCEDURE PRN, Starting Lindsay | | AM PST | | | | | 08/19/12 at 1129, Until Lindsay | | | | | | | 08/19/12 at 1519, Neuromuscular | | | | | | | block | | | | | | + +-------+ +--------+---+---+ +---+---+ | | | +---+---+ documented in this encounter"
--- OUTSIDE RECORDS SUMMARY | ~2019-04-25 | XMS | Encounter Summary ---
Demographics + + + | Address | [address] | | | [place] [address] | + + + | Home Phone [...] [place] | | | | | [phone] | | + + + + + Care Team Providers + +------+ + | Care Intervention Teacher Name | Role | Phone | + +------+ + | Ender Wagoner MD | PCP | | + +------+ + Reason for Visit + + + | Reason | Comments | + + + | Ear problem | here for ear check | + + + Office Visit - E/M Services (Routine) +--------+--------+ + + + + | Status | Reason | Specialty | Diagnoses / | Referred By | Referred To | | | | | Procedures | Contact | Contact | +--------+--------+ + + + + | Closed | | Otolaryngolog | | Non[facility] | Dimitrios, | | | | y | | Epic Dept | Willie Valente MD | | | | | | | [address] | | | | | | | [address] | | | | | | | [address] [place], | | | | | | | [place] | | | | | | | [address] | +--------+--------+ + + + + Encounter Details +--------+---------+ + + + | Date | Type | Department | Care Team | Description | +--------+---------+ + + + | 12/16/ | Office | Otolaryngology | Willie Plunkett, | Bipolar affective | | 2011 | Visit | Otology Services at | | disorder ([facility]); | | | | [facility] [address] | | Cochlear implant in | | | | [address] | | place; Otitis | | | | Mailcode: [id number] | | externa | | | | [facility] | | | | | | [place], [place] | | | | | | [address] | | | | | | [phone] | | | +--------+---------+ + + + [...] Instructions Patient Instructions Aruna Edwards MA - 12/17/2011 11:27 AM PDTThank you for choosing [facility] Department of Otolaryngology for your health care needs. If you need to speak to an EN T physician after normal business hours, please call [phone] and ask to have the ENT ph ysician collection specialist rojeliod. MyChart is a great way to contact me if you have questions in between visits. If you are n ot already signed up for MyChart there is information at the end of this After Visit Summary to help you get started. documented in this encounter Progress Notes Connie Michael MD - 12/17/2011 1:07 PM PDT Clinic Date: 11/25/2011 Clinic: Otology Clinic Primary Care Provider: Ender Wagoner MD History of Present Illness: Edgar is a 46 y.o. who returns for 3 week follow-up left cochle ar implant and bilateral otitis externa. He has been using the ear drops as instructed but h as not been using water precautions. He washes his ears out while in the shower. He states t hat he cannot afford Vaseline or cotton balls. He is frustrated because his ears have been draining for the past year. He does not feel that the drops has helped. He continues to have bilateral otorrhea and pain. Current Outpatient Prescriptions Medication acetic acid 2 % Otic Solution albuterol (PROAIR HFA) 90 mcg/Actuation Inhalation HFA Aerosol Inhaler Albuterol Sulfate 2.5 mg/0.5 mL Inhalation Solution for Nebulization CARBAMAZEPINE ORAL Cefepime HCl 1 gram Intravenous Recon Soln ciprofloxacin 0.3 % Ophthalmic Drops ciprofloxacin-dexamethasone 0.3-0.1 % Otic Drops, Suspension citalopram 10 mg Oral Tablet dexamethasone 0.1 % Ophthalmic Drops dexamethasone 0.1 % Ophthalmic Drops fluticasone-salmeterol (ADVAIR [...] masses, no thyromegaly. Ears Left otomicroscopy: EAC dry. TM intact, normal landmarks. Posterior edge of TM is blunted and cannot visualize the anterior extent. Good movement with pneumotoscopy. Right otomicroscopy: mastoid bowl dry but has as posterior scar band and thick debris beh ind the scar band. TM intact normal landmarks, no e/o drainage or effusion Assessment: left cochlear implant and hx of right canal wall down tympanomastoidectomy, raj tis externa improving. Still with otalgia and right sided drainage. Plan: Dexamethasone and Cipro gtts BID. RTC in 3 weeks for debridement. Water precautions. ATTENDING PHYSICIAN ADDENDUM The patient was not seen by myself as he left clinic prior. Willie Plunkett MD Tool Procurement Coordinator Otology, Neurotology & Skull Base Surgery documented in this en counter Plan of Treatment +--------+ + + + + | Date | Type | Specialty | Care Team | Description | +--------+ + + + + | 04/29/ | Diagnostic | Hydraulic Operator | Marce Meyer | | | 2019 | Visit | | Finn, Eve [address] [facility] | | | | | | [address] | | | | | | [place], [place] | | | | | | [address] | | +--------+ + + + + documented as of this encounter Visit Diagnoses + + | Diagnosis | + + | Bipolar affective disorder (HCC) Bipolar disorder, unspecified | + + | Cochlear implant in place Other postprocedural status | + + | Otitis externa Infective otitis externa, unspecified | + + documented in this encounter"
--- OUTSIDE RECORDS SUMMARY | ~2019-04-25 | XMS | Encounter Summary ---
Demographics + + + | Address | [address] | | | [place] [address] | + + + | Home Phone [...] [place] | | | | | [address] | | + + + + + Care Team Providers + +------+ + | Care Wheat Inspector Name | Role | Phone | + +------+ + PCP | Unavailable | + +------+ + Encounter Details +--------+ + + + + | Date | Type | Department | Care Team | Description | +--------+ + + + + | 05/15/ | Office | [facility] | Clinic, [...] as of this encounter Progress Notes Interface, Concrete Vibrator Operator In - 02/23/2005 8:01 AM PDT [id number] [facility] Date: 05/15/2004 Clinic: Otolaryngology Subjective: Mr. Marquez was seen today for the second day of his initial activation process. He reports that after yesterday's initial activation, sounds sound somewhat echoey to him. He describes this as sounds having a low portion and a high portion. I assured him that these will eventually melt together, and that on average, it takes approximately 3 months for people to reach maximum benefit from their device. Other than that, it was clear that communication with Mr. Marquez was much easier than prior to his implant. Objective: Threshold and comfort levels were once again evaluated using counting T levels. These were obtained on electrodes 21, 17, 11, 7, and 3. Remaining electrodes were calculated via interpolation. His gains were set at plus 3, and the frequency allocation table was adjusted to #5. Analysis: Following programming, Mr. Marquez was actually able to repeat back spondee words, those are two syllable words with equal stress on each syllable, without visual cues. He reports that voice is coming in somewhat clear. I put volume maps and programs in slots 1 and 2. This has a fixed sensitivity of 27 and allows him to have more flexibility in terms of manipulating the volume control. Plan: Mr. Marquez will return in approximately 2 weeks for followup mapping and assessment. Haroon Poe Ed.D. Wholesale Manager KYLE / HS [id number] / [id number] / [id number] / [id number] documented i n this encounter Plan of Treatment +--------+ + + + + | Date | Type | Specialty | Care Team | Description | +--------+ + + + + | 04/29/ | Diagnostic | Salesperson [employer] | Marce Meyer | | | 2019 | Visit | | Eve Briseno [address] | | | | | | [address] | | | | | | [place], [place] | | | | | | [address] | | +--------+ + + + + documented as of this encounter Visit Diagnoses Not on filedocumented in this encounter"
--- OUTSIDE RECORDS SUMMARY | ~2019-04-25 | XMS | Encounter Summary ---
Demographics + + + | Address | [address] | | | [place] [address] | + + + | Home Phone | | + + + | Preferred Language | Unknown | + + + | Marital Status | Single | + + + | Hindu Affiliation | BAP | + + + [...] [place] | | | | | [address] | | + + + + + Care Team Providers + +------+ + | Care Facility Security Officer Name | Role | Phone | + +------+ + | Maurice Zelaya MD | PCP | | + +------+ + Encounter Details +--------+ + + + + | Date | Type | Department | Care Team | Description | +--------+ + + + + | 07/23/ | Document-Sc | Health Information | Unknown . | | | 2015 | anned | Services [id number] | | | | | [address] | | | | | | Mailcode: [id number] | | | | | | [facility] | | | | | | [place], [place] | | | | | | [address] | | | | | | [phone] | | | +--------+ + + + [...] + + | 04/29/ | Diagnostic | Power Machine Operator | Marce Meyer | | | 2018 | Visit | | Eve Briseno [address] | | | | | | [address] | | | | | | [place], [place] | | | | | | [address] | | +--------+ + + + + documented as of this encounter Visit Diagnoses Not on filedocumented in this encounter"
--- OUTSIDE RECORDS SUMMARY | ~2019-04-25 | XMS | Clinical Summary ---
Demographics + + + | Address | [address] | | | [place] [address] | + + + | Home Phone | | + + + | Preferred Language | Unknown | + + + | Marital Status | | + + + | Adventist Affiliation | Unknown | + + + | Race | Unknown | + + + | Ethnic Group | Unknown | + + + Author + + + | Author | [facility] | | | and [place] | + + + | Organization | [facility] | | | and [...] Team Providers + +------+ + | Care Structures Engineer Name | Role | Phone | + +------+ + | Maurice Zelaya MD | PCP | | + +------+ + Allergies + + + + + + | Active Allergy | Reactions | Severity | Noted | Comments | | | | | Date | | + + + + + + | Morphine | Other (See Comments) | High | 12/04/19 | Psychosis? | | | | | 11 | Aggressive behavior | | | | | | Psychosis? Other | | | | | | reaction(s): | | | | | | Historical Allergy | | | | | | Pt states that he | | | | | | has a bad trip | + + + + + + | Morphine Sulfate | Other (See Comments) | Medium | 02/28/20 | Aggressive | | | | | 11 | behavior | + + + + + + | Penicillins | Rash | Medium | 02/28/20 | | | | | | 11 | | + + + + + + Medications + + + +---------+------+------+-------+ | Medication | Sig | Dispensed | Refills | Star | End | Statu | | | | | | t | Date | s | | | | | | Date | | | + + + +---------+------+------+-------+ | | Take 25 mg by mouth | | 0 | 09/1 | | Activ | | hydrochlorothiazide | Daily. | | | 3/20 | | e | | 25 mg tablet | | | | 12 | | | + + + +---------+------+------+-------+ | levothyroxine | Take 25 mcg by mouth | | 0 | 09/1 | | Activ | | (SYNTHROID, | Daily. | | | 3/20 | | e | | LEVOTHROID) 25 mcg | | | | 12 | | | | tablet | | | | | | | + + + +---------+------+------+-------+ | omeprazole | Take 1 capsule by | 90 | 3 | 08/0 | | Activ | | (PRILOSEC) 20 mg | mouth Daily. | capsule | | 3/20 | | e | | capsule | | | | 16 | | | + + + +---------+------+------+-------+ | doxazosin | Take 4 mg by mouth | | 0 | | | Activ | | (CARDURA) 4 mg | nightly. | | | | | e | | tablet | | | | | | | + + + +---------+------+------+-------+ | furosemide (LASIX) | Take 10 mg by mouth | | 0 | 07/1 | | Activ | | 20 mg tablet | Daily. | | | 20 | | e | | | | | | 16 | | | + + + +---------+------+------+-------+ | metFORMIN | Take 1 tablet by | | 0 | 07/1 | | Activ | | (GLUCOPHAGE) 1000 MG | mouth 2 times daily | | | 620 | | e | | tablet | (with breakfast & | | | 16 | | | | | dinner). | | | | | | + + + +---------+------+------+-------+ | propranolol | Take 1 tablet by | | 0 | 07/1 | | Activ | | (INDERAL) 40 mg | mouth 2 times daily. | | | 20 | | e | | tablet | | | | 16 | | | + + + +---------+------+------+-------+ | promethazine | Take 25 mg by mouth | | 0 | | | Activ | | (PHENERGAN) 25 mg | Daily. | | | | | e | | tablet | | | | | | | + + + +---------+------+------+-------+ | topiramate | Take 25 mg by mouth | | 0 | 07/2 | | Activ | | (TOPAMAX) 25 mg | nightly. | | | 2/20 | | e | | tablet | | | | 16 | | | + + + +---------+------+------+-------+ | carBAMazepine | Take 400 mg by mouth | | 0 | | | Activ | | (TEGRETOL XR) 400 MG | 2 times daily. | | | | | e | | 12 hr tablet | | | | | | | + + + +---------+------+------+-------+ | albuterol | Inhale 2 puffs into | | 0 | | | Activ | | (VENTOLIN HFA) 90 | the lungs every 4 | | | | | e | | mcg/puff inhaler | hours as needed for | | | | | | | | Shortness of Breath. | | | | | | + + + +---------+------+------+-------+ | LANTUS SOLOSTAR | Inject 5 Units under | | 1 | 10/2 | | Activ | | 100 UNIT/ML | the skin Daily. | | | 02/12 | | e | | injection (pen) | | | | 17 | | | + + + +---------+------+------+-------+ | escitalopram | Take 20 mg by mouth | | 0 | 02/0 | | Activ | | (LEXAPRO) 20 mg | Daily. | | | 20 | | e | | tablet | | | | 18 | | | + + + +---------+------+------+-------+ | insulin pen needle | use once daily | | 0 | 02/0 | | Activ | | (B-D ULTRAFINE III | | | | 620 | | e | | SHORT PEN) 31 gauge | | | | 18 | | | | x 8 mm | | | | | | | + + + +---------+------+------+-------+ | | Take 3 mLs by | 360 mL | 4 | 06/1 | | Activ | | albuterol-ipratropiu | nebulization every 4 | | | 5/20 | | e | | m (DUONEB) 2.5-0.5 | hours as needed. | | | 18 | | | | mg/3 mL SOLN | | | | | | | + + + +---------+------+------+-------+ | carbidopa-levodopa | Take 1 tablet by | | 0 | / | | Activ | | (SINEMET) 25-100 mg | mouth 3 times daily. | | | /20 | | e | | per tablet | | | | 18 | | | + + + +---------+------+------+-------+ | cyclobenzaprine | Take 10 mg by mouth | | 0 | | | Activ | | (FLEXERIL) 10 mg | 3 times daily as | | | | | e | | tablet | needed for Muscle | | | | | | | | spasms. | | | | | | + + + +---------+------+------+-------+ | Glucose Blood | Use with device to | | 0 | 11/0 | | Activ | | (BLOOD GLUCOSE TEST | test blood sugar 1 | | | 02/12 | | e | | STRIPS) STRP | time daily. | | | 16 | | | + + + +---------+------+------+-------+ | LATUDA 40 MG | Take 1 tablet by | | 0 | 07/28 | | Activ | | tablet | mouth Daily. | | | 03/15 | | e | | | | | | 19 | | | + + + +---------+------+------+-------+ | QUEtiapine | Take 1 tablet by | | 0 | 03/27 | | Activ | | (SEROQUEL) 25 mg | mouth 3 times daily. | | | 08/15 | | e | | tablet | 1 /2 tab PO TID | | | 09 | | | + + + +---------+------+------+-------+ | clotrimazole | Daily as needed. | | 0 | 12/2 | | Activ | | (LOTRIMIN) 1% cream | | | | 20 | | e | | | | | | 18 | | | + + + +---------+------+------+-------+ | triamcinolone | apply topically to | | 0 | / | | Activ | | (KENALOG) 0.1% cream | affected area twice | | | 02/12 | | e | | | a day | | | 19 | | | + + + +---------+------+------+-------+ | atorvaSTATin | | | 0 | 02/2 | | Activ | | (LIPITOR) 40 mg | | | | 12/13 | | e | | tablet | | | | 19 | | | + + + +---------+------+------+-------+ | TRELEGY ELLIPTA | inhale 1 puff by | 1 each | 3 | 03/27 | | Activ | | 100-62.5-25 MCG/INH | mouth once daily | | | 04/15 | | e | | inhaler | | | | 19 | | | + + + +---------+------+------+-------+ | trihexyphenidyl | Take 1 tablet by | 60 | 3 | 03/28 | | Activ | | (ARTANE) 2 mg tablet | mouth 2 times daily. | tablet | | 11/13 | | e | | | 2 mg daily for a | | | 19 | | | | | week then 2 mg bid | | | | | | + + + +---------+------+------+-------+ | | Inhale 1 puff into | 1 each | 3 | 05/2 | 03/27 | Disco | | fluticasone-umeclidi | the lungs Daily. | | | 0/20 | 04/15 | ntinu | | nium-vilanterol | | | | 19 | 19 | ed | | (TRELEGY ELLIPTA) | | | | | | | | 100-62.5-25 mcg/puff | | | | | | | | inhaler | | | | | | | + + + +---------+------+------+-------+ | | | | 0 | 06/1 | 03/27 | Disco | | fluticasone-umeclidi | | | | 7/ | 04/15 | ntinu | | nium-vilanterol | | | | | ed | | (MIKEY JULIEN) | | | | | | | | 100-62.5-25 mcg/puff | | | | | | | | inhaler | | | | | | | + + + +---------+------+------+-------+ Active Problems + + + | Problem | Noted Date | + + + | Primary osteoarthritis of right hand | 04/14/2019 | + + + + + | Overview: MCP and pip on R only. Secondary to use of | | assistive device to grasp items. Tx symptomatically with | | NSAID/ice. | + + + + + | Urge incontinence | 03/18/2019 | + + + + + | Overview: Will treat with Lissette'Kaykay timed voiding to | | start treatment. Patient on many medications and would like to | | avoid anticholinergics if at all possible. 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 | | Warned him about what and hypoglycemic reaction would feel like | | and need to cut back on insulin if he gets this recurrently. He | | states understanding. | + + + + + | Wheelchair dependence | 08/31/2018 | + + + | Lipoma of torso | 08/12/2018 | + + + | Parkinson's disease | 06/15/2018 | + + + + + | Overview: [facility], demolished 2001. | + + + + + | Impaired functional mobility, balance, gait, and endurance | 09/02/2017 | + + + | Strain of intrinsic muscle, fascia and tendon of right index | 06/04/2017 | | finger at wrist and hand level, initial encounter | | + + + | Right hand pain | 06/03/2017 | + + + | Impaired mobility and ADLs | 06/03/2017 | + + + | Decreased crab fisher strength of right hand | 06/03/2017 | + + + | COPD, severe | 04/30/2017 | + + + | Obstructive sleep apnea on CPAP | 04/30/2017 | + + + + + | Overview: Uses CPAP | + + + + + | Acute pain of right knee | 04/07/2017 | + + + | Rosacea | 12/23/2016 | + + + + + | Overview: Overview: Had been treated by previous MD with | | triamcinolone. Tx'd with metrogel, [employer] insurance does not cover | | meds for roasacea 12/10. Trial triamcinolone 08/14, effective. | | Counseled to use lowest effective dose. Last Assessment & Plan: | | Will ask patient to speak with our front office about getting a | | discount, if he qualifies, Metrogel is 15 dollars per month and | | he could afford it. | + + + + + | Patellar tendinitis of right knee | 05/08/2016 | + + + | Repetitive strain injury of neck | 05/08/2016 | + + + + + | Overview: Last Assessment & Plan: | | Continue OTC meds/stretching. Referral to Physical Therapy. | + + + + + | OTHER ACUTE OTITIS EXTERNA | 04/02/2011 | + + + | CHRONIC MASTOIDITIS | 04/02/2011 | + + + | PTSD (post-traumatic stress disorder) | 12/04/2010 | + + + | Vitamin D deficiency | 12/04/2010 | + + + + + | Overview: Overview: | | VIT D 16 ON 10/03/10 --> 46 ON 05/05/11 | + + + + + | Other, mixed, or unspecified nondependent drug abuse, unspecified | 11/24/2010 | + + + + + | Overview: Overview: MEDICAL MJ for pain. WILL NOT QUIT. H/O | | METH. Pain clininc ([place]) won't see him since antisocial | | personality and strong risk of drug abuse - was screened 2010. | |screened 2010. | + + + +---+ | Bipolar disorder | | + +---+ | OTHER CHRONIC PAIN | | + +---+ | OTITIS EXTERNA, CHRONIC | | + +---+ | FAMILY HISTORY OF ASTHMA | | + +---+ | FH DIABETES | | + +---+ | FH STROKE | | + +---+ Resolved Problems + + + + | Problem | Noted | Resolved | | | Date | Date | + + + + | COPD exacerbation | 04/15/20 | | | | 17 | 7 | + + + + Encounters +--------+ + + + + | Date | Type | Specialty | Care Team | Description | +--------+ + + + + | 04/19/ | Office | Neurology | Jaret Thompson MD | Seizure disorder | | 2018 | Visit | | | ([facility]) (Primary Dx); | | | | | | Driving safety | | | | | | issue; Tremors of | | | | | | nervous system | +--------+ + + + + | 04/14/ | Refill | Pulmonology | Hua Garcia, | Medication Refill | | 2018 | | | | | +--------+ + + + + | 03/15/ | Orders Only | Neurology | Jaret Thompson MD | Seizure disorder | | 2018 | | | | ([facility]) (Primary Dx) | +--------+ + + + + | 02/16/ | Orders Only | | Provider, | Epilepsy without | | 2018 | | | MD Silvia | status epilepticus, | | | | | | not intractable | | | | | | ([facility]); Jasonz-rltd | | | | | | symptomatic epilepsy | | | | | | w cmplx part sz, | | | | | | notintrac, wo status | | | | | | ([facility]) | +--------+ + + + + from Last 3 Months Immunizations + + + + | Name | Dates Previously Given | Next Due | + + + + | INFLUENZA PF | 05/14/2017, 05/08/2016 | | | QUAD(PED/ADOL/ADULT) | | | | ,PSKT or VIAL | | | + + + + | INFLUENZA QUADR | 04/14/2019, 04/16/2018, 05/14/2017, | | | W/PRES | 05/08/2016 | | | (PED/ADOL/ADULT) | | | | MULTIDOSE | | | + + + + | INFLUENZA TRIV | 04/14/2012, 05/02/2011, 07/26/2008 | | | W/PRES(PED/ADOL/ADUL | | | | T),MULTIDOSE | | | + + + + | INFLUENZA, | 05/02/2011, 05/22/2009, 07/26/2008, | | | UNSPECIFIED | 06/22/2006 | | | FORMULATION | | | + + + + | PNEUMOCOCCAL | 09/11/2016 | | | CONJUGATE 13-VALENT | | | | (PCV13) | | | + + + + | PNEUMOCOCCAL | 07/26/2008, 06/21/2004 | | | POLYSACCHARIDE | | | | 23-VALENT (PPSV23) | | | + + + + | TD PF (5 LF TETANUS) | 11/16/2014 | | | (ADOL/ADULT) | | | + + + + | TDAP, (ADOL/ADULT) | 03/03/2006 | | + + + + | VARICELLA, 2 DOSE | 05/15/2017 | | | (VARIVAX) | | | + + + + Family History + + +------+ + | Medical History | Relation | Name | Comments | + + +------+ + | COPD | Brother | | | + + +------+ + | Mental illness | Brother | | | + + +------+ + | COPD | Brother | | | + + +------+ + | Mental illness | Brother | | | + + +------+ + | Heart failure | Father | | | + + +------+ + | COPD | Mother | | smoker | + + +------+ + | Diabetes, NIDDM | Other | | | + + +------+ + | Mental illness | Sister | | ?Bipolar | + + +------+ + + +------+ + + | Relation | Name | Status | Comments | + +------+ + + | Brother | | Alive | | + +------+ + + | Brother | | Alive | | + +------+ + + | Father | | | | + +------+ + + | Mother | | Alive | | + +------+ + + | Other | | | | + +------+ + + | Sister | | Alive | | + +------+ + + Social History + +-------+ +--------+ [...] + +---+---+---+ + + | Tobacco Cessation: Counseling Given: No | + + + + +---------+ + | Alcohol Use [...] recent travel history available. | + + Last Filed Vital Signs + + + + | Vital Sign | Reading | Time Taken | + + + + | Blood Pressure | 132/85 | 04/19/2019920 PDT | + + + + | Pulse | 78 | 04/19/2019920 PDT | + + + + | Temperature | 35.9 C (96.7 F) | 10/04/20181042 PDT | + + + + | Respiratory Rate | 14 | 10/04/20181042 PDT | + + + + | Oxygen Saturation | 97% | 04/19/2019920 PDT | + + + + | Inhaled Oxygen | - | - | | Concentration | | | + + + + | Weight | 117.9 kg (260 lb) | 04/19/2019920 PDT | + + + + | Height | 182.9 cm (6') | 04/19/2019920 PDT | + + + + | Body Mass Index | 35.26 | 04/19/2019920 PDT | + + + + Plan of Treatment +--------+---------+ + + + | Date | Type | Specialty | Care Team | Description | +--------+---------+ + + + | 07/04/ | Office | Neurology | Jaret Thompson MD [address] | | | 2018 | Visit | | [address] | | | | | | [place], | | | | | | [place] [address] | | | | | | [phone] | | | | | | | | +--------+---------+ + + + | 07/13/ | Office | Pulmonology | Hua Garcia, | | | 2018 | Visit | | [address] | | | | | | [place] | | | | | | [address] | | | | | | | | +--------+---------+ + + + + + + + + | Health Maintenance | Due Date | Last Done | Comments | + + + + + | Hepatitis C | | | | | Screening | 4 | | | + + + + + | Diabetic Eye Exam | | | | | | 2 | | | + + + + + | Diabetic Foot Exam | | | | | | 2 | | | + + + + + | Hemoglobin A1c | | | | | Screening | 2 | | | + + + + + | Microalbumin | | | | | Screening | 5 | | | + + + + + | Vaccine: Zoster (1 | | | | | of 2) | 7 | | | + + + + + | Lung Cancer | | | | | Screening | 9 | | | + + + + + | Vaccine: | | 11/16/2014, 03/03/2006 | | | Dtap/Tdap/Td (3 - | 5 | | | | Td) | | | | + + + + + | Vaccine: | Completed | 09/11/2016, 07/26/2008, | | | Pneumococcal 19-64 | | 06/21/2004 | | | High Risk | | | | + + + + + | Vaccine: Influenza | Completed | 04/14/2019, 04/16/2018, | | | | | 05/14/2017, Additional history | | | | | exists | | + + + + + Results Not on filefrom Last 3 Months Insurance + +--------+ +--------+ +---------+--------+ | Payer | Benefi | Subscriber | Effect | Phone | Address | Type | | | t Plan | ID | manjit | | | | | | / | | Dates | | | | | | Group | | | | | | + +--------+ +--------+ +---------+--------+ | [employer] | [employer] | [id number] | | [phone] | | Medica | | MEDICAID HMO | HEALTH | | 017-Pr | 1 | | id | | | MDCD | | esent | | | | | | [place] | | | | | | + +--------+ +--------+ +---------+--------+ | [employer] | [employer] | [id number] | | [phone] | | Medica | | MEDICAID HMO | HEALTH | | 019-Pr | 1 | | id | | | MDCD | | esent | | | | | | [place] | | | | | | + +--------+ +--------+ +---------+--------+ + +--------+ +--------+ + + | Guarantor Name | Accoun | Relation to | Date | Phone | Billing Address | | | t Type | Patient | of | | | | | | | | | | + +--------+ +--------+ + + | Edgar Marquez | Person | Self [birth year] | [address] | | | al/Fam | | 1966 | [phone] | [address] [place], | | | gabe | | | [address] (Home) | [place] [address] | + +--------+ +--------+ + + | Edgar Marquez | Person | Self [birth year] | [address] | | | al/Kumar | | 1966 | [phone] | [address] [place], | | | gabe | | | [address] (Home) | [place] [address] | + +--------+ +--------+ + + Advance Directives Patient has advance care planning documents on file. For more information, please contact:[facility] [place] [address]"
--- OUTSIDE RECORDS SUMMARY | ~2019-04-25 | XMS | Encounter Summary ---
Demographics + + + | Address | [address] | | | [place] [address] | + + + | Home Phone [...] [place] | | | | | [address] | | + + + + + Care Team Providers + +------+ + | Care Tile Finisher Name | Role | Phone | + +------+ + | Ender Wagoner MD | PCP | | + +------+ + Encounter Details +--------+ + + + + | Date | Type | Department | Care Team | Description | +--------+ + + + + | 12/17/ | Hospital | Pulmonary Function | Tech, Pfl Adult | | | 2011 | Encounter | Lab at [facility] [address] | | | | | [address] | [facility], | | | | | Mailcode: [id number] | [place] [address] | | | | | Paola Perez | | | | | | [address] [place], [place] | | | | | | [address] | | | | | | [phone] | | | +--------+ + + + [...] + + | 04/29/ | Diagnostic | Strategic Account Director | Marce Meyer | | | 2019 | Visit | | K, AuD [address] | | | | | | [address] | | | | | | [place], [place] | | | | | | [address] | | +--------+ + + + + documented as of this encounter Procedures + +--------+ + + + | Procedure Name | Priori | Date/Time | Associated Diagnosis | Comments | | | ty | | | | + +--------+ + + + | SPIROMETRY BEFORE / | Routin | 12/18/2011 | Chronic airway | Results for this | | AFTER BRONCHODIL, | e | 9:18 AM | obstruction, not | procedure are in the | | PULM FUNCTION LAB | | PDT | elsewhere classified | results section. | + +--------+ + + + documented in this encounter Results SPIROMETRY BEFORE / AFTER BRONCHODIL, PULM FUNCTION LAB (12/18/2011 9:18 AM PDT) + + + + + + | Component | Value | Ref Range | Performed | Pathologist | | | | | At | Signature | + + + + + + | FVC PRE | 5.19 | 5.26 Liters | [facility] | | | | | | SPECIAL | | | | | | DIAGNOSTICS | | | | | | - | | | | | | PULMONARY | | | | | | FUNCTION | | + + + + + + | FVC PRE | 99 | % | [facility] | | | (%REF) | | | SPECIAL | | | | | | DIAGNOSTICS | | | | | | - | | | | | | PULMONARY | | | | | | FUNCTION | | + + + + + + | FVC POST | 5.05 | 5.26 Liters | [facility] | | | | | | SPECIAL | | | | | | DIAGNOSTICS | | | | | | - | | | | | | PULMONARY | | | | | | FUNCTION | | + + + + + + | FVC POST | 96 | % | [facility] | | | (%REF) | | | SPECIAL | | | | | | DIAGNOSTICS | | | | | | - | | | | | | PULMONARY | | | | | | FUNCTION | | + + + + + + | FEV1 PRE | 2.82 | 4.10 Liters | [facility] | | | | | | SPECIAL | | | | | | DIAGNOSTICS | | | | | | - | | | | | | PULMONARY | | | | | | FUNCTION | | + + + + + + | FEV1 PRE | 69 | % | [facility] | | | (%REF) | | | SPECIAL | | | | | | DIAGNOSTICS | | | | | | - | | | | | | PULMONARY | | | | | | FUNCTION | | + + + + + + | FEV1 POST | 3.07 | 4.10 Liters | [facility] | | | | | | SPECIAL | | | | | | DIAGNOSTICS | | | | | | - | | | | | | PULMONARY | | | | | | FUNCTION | | + + + + + + | FEV1 POST | 75 | % | [facility] | | | (%REF) | | | SPECIAL | | | | | | DIAGNOSTICS | | | | | | - | | | | | | PULMONARY | | | | | | FUNCTION | | + + + + + + | FEV1/FVC | 54 | 78 % | [facility] | | | PRE | | | SPECIAL | | | | | | DIAGNOSTICS | | | | | | - | | | | | | PULMONARY | | | | | | FUNCTION | | + + + + + + | FEV1/FVC | 69 | % | [facility] | | | PRE (%REF) | | | SPECIAL | | | | | | DIAGNOSTICS | | | | | | - | | | | | | PULMONARY | | | | | | FUNCTION | | + + + + + + | FEV1/FVC | 61 | 78 % | [facility] | | | POST | | | SPECIAL | | | | | | DIAGNOSTICS | | | | | | - | | | | | | PULMONARY | | | | | | FUNCTION | | + + + + + + | FEV1/FVC | 78 | % | [facility] | | | POST (%REF) | | | SPECIAL | | | | | | DIAGNOSTICS | | | | | | - | | | | | | PULMONARY | | | | | | FUNCTION | | + + + + + + | [id number]% | 1.63 | 3.65 L/sec | [facility] | | | PRE | | | SPECIAL | | | | | | DIAGNOSTICS | | | | | | - | | | | | | PULMONARY | | | | | | FUNCTION | | + + + + + + | HZZ12-89% | 44 | % | [facility] | | | PRE (%REF) | | | SPECIAL | | | | | | DIAGNOSTICS | | | | | | - | | | | | | PULMONARY | | | | | | FUNCTION | | + + + + + + | MRA04-52% | 1.91 | 3.65 L/sec | [facility] | | | POST | | | SPECIAL | | | | | | DIAGNOSTICS | | | | | | - | | | | | | PULMONARY | | | | | | FUNCTION | | + + + + + + | ACD39-87% | 52 | % | [facility] | | | POST (%REF) | | | SPECIAL | | | | | | DIAGNOSTICS | | | | | | - | | | | | | PULMONARY | | | | | | FUNCTION | | + + + + + + | PEF PRE | 5.07 | 10.11 L/sec | [facility] | | | | | | SPECIAL | | | | | | DIAGNOSTICS | | | | | | - | | | | | | PULMONARY | | | | | | FUNCTION | | + + + + + + | PEF PRE | 50 | % | [facility] | | | (%REF) | | | SPECIAL | | | | | | DIAGNOSTICS | | | | | | - | | | | | | PULMONARY | | | | | | FUNCTION | | + + + + + + | PEF POST | 5.50 | 10.11 L/sec | [facility] | | | | | | SPECIAL | | | | | | DIAGNOSTICS | | | | | | - | | | | | | PULMONARY | | | | | | FUNCTION | | + + + + + + | PEF POST | 54 | % | [facility] | | | (%REF) | | | SPECIAL | | | | | | DIAGNOSTICS | | | | | | - | | | | | | PULMONARY | | | | | | FUNCTION | | + + + + + + | FIF50% PRE | 2.88 | L/sec | [facility] | | | | | | SPECIAL | | | | | | DIAGNOSTICS | | | | | | - | | | | | | PULMONARY | | | | | | FUNCTION | | + + + + + + | FIF50% POST | 3.67 | L/sec | [facility] | | | | | | SPECIAL | | | | | | DIAGNOSTICS | | | | | | - | | | | | | PULMONARY | | | | | | FUNCTION | | + + + + + + | PULMONARY | [facility] | | [facility] | | | INTERPRETAT | University | | SPECIAL | | | ION | Date: | | DIAGNOSTICS | | | | 12/18/11 | | - | | | | | | PULMONARY | | | | | | FUNCTION | | | | | | | | | | Id: | | | | | | [id number] | | | | | | [place], | | | | | | [place]: EDGAR VIVAR | | | | | | [place] | | | | | | | | | | | | | | | | | | | | | | | | | | | | | | | | | | | | Physician: FLAQUITO HILL | | | | | | | | | | | | B ___ | | | | | | | | | | | | Techn | | | | | | ician: Patricia Marah, | | | | | | RRTAge: 46 | | | | | | Height(in): | | | | | | 71 | | | | | | #############Diagnosis | | | | | | : | | | | | | | | | | | | Medication: | | | | | | Dyspnea Rest: Yes | | | | | | #################Persist | | | | | | ent: Yes Smoker: | | | | | | Yes | | | | | | #################Cigaret | | | | | | doroteo: Yes Cigars: | | | | | | | | | | | | No Temp: 2 | | | | | | 2 PBar: | | | | | | 745 | | | | | | | | | | | | | | | | | | PULMONARY | | | | | | FUNCTION | | | | | | ANALYSIS | | | | | | | | | | | | Spir | | | | | | ometry | | | | | | | | | | | | Ref | | | | | | Pre Pre | | | | | | Post | | | | | | Post Post | | | | | | | | | | | | | | | | | | Carol % Ref | | | | | | Carol % Ref % | | | | | | ChgFVC | | | | | | Liters | | | | | | 5.26 5.19 | | | | | | 99 5.05 | | | | | | 96 -3FEV1 | | | | | | Liters | | | | | | 4.10 2.82 | | | | | | 69 3.07 | | | | | | 75 9FEV1/FVC % | | | | | | 78 | | | | | | 54 | | | | | | [id number]% | | | | | | L/sec 3.65 1.6 | | | | | | 3 | | | | | | 44 1.91 | | | | | | 52 17PEF | | | | | | L/sec 10.11 | | | | | | 5.07 | | | | | | 50 5.50 | | | | | | 54 [id number]% | | | | | | Sec | | | | | | 6.92 | | | | | | | | | | | | 7.47 | | | | | | | | | | | | 8FIVC Liters | | | | | | | | | | | | 4.17 | | | | | | | | | | | | 4.48 | | | | | | | | | | | | 7FIF50% L/sec | | | | | | 2.88 | | | | | | | | | | | | 3.67 | | | | | | 27FVL | | | | | | ECode | | | | | | [id number] | | | | | | | | | | | | [id number] | | | | | | L/min | | | | | | | | | | | | | | | | | | Lung | | | | | | VolumesVC | | | | | | Liters | | | | | | 5.12TLC | | | | | | Liters | | | | | | 7.13RV Li | | | | | | ters | | | | | | 2.04RV/TLC % | | | | | | 29FRC | | | | | | N2 Liters | | | | | | 3.64ERV | | | | | | Liters 1.69 | | | | | | | | | | | | | | | | | | | | | | | | | | | | | | | | | | | | Hb: | | | | | | | | | | | | | | | | | | DiffusionDLCO | | | | | | mL/mmHg/min 31.6DL | | | | | | Adj mL/mmHg/min | | | | | | 31.6VA | | | | | | Liters | | | | | | 6.93DLCO/VA | | | | | | mL/mHg/min/L 4.56DL/VA | | | | | | Adj mL/mHg/min/L | | | | | | 4.42IVC | | | | | | Liters PF Reference: | | | | | | NHANES III - | | | | | | CaucasianVersion: | | | | | | [id number]: | | | | | | ALMA, EDGAR | | | | | | ELLEN | | | | | | ID: | | | | | | [id number] | | | | | | | | | | | | Maximal | | | | | | Respiratory | | | | | | Pressures | | | | | | Ref | | | | | | Pre | | | | | | Pre | | | | | | | | | | | | Carol % RefPI | | | | | | max [id number] | | | | | | Volume LitersPE | | | | | | max [id number] | | | | | | Volume Liters | | | | | | | | | | | | | | | | | | Single Breath | | | | | | OxygenVC | | | | | | (SBO2) LitersN2 | | | | | | Delta/L | | | | | | %CV/VC %CC/TL | | | | | | C | | | | | | %CV | | | | | | Liters Arterial | | | | | | Blood | | | | | | Gases | | | | | | pH PCO2 | | | | | | PO2 HCO3 BE | | | | | | Hb SaO2 P(A-a)O2 | | | | | | CaO2 | | | | | | FIO2 | | | | | | mmHg mmHg | | | | | | meq/L gm/dL | | | | | | % mmHg Vol% %Lvl | | | | | | 1Lvl 2Lvl 3 | | | | | | CommentsSpiromet | | | | | | ry data is acceptable | | | | | | and | | | | | | reproducible. Com | | | | | | puterized Interpretation | | | | | | By signing this | | | | | | interpretation the | | | | | | physician is | | | | | | acknowledging that | | | | | | he/shehas reviewed the | | | | | | computer interpretation | | | | | | and, in his/her | | | | | | professional | | | | | | opinion,this is a true | | | | | | and accurate reflection | | | | | | of the patient | | | | | | | | | | | | s current | | | | | | clinicalcondition. | | | | | | InterpretationSpiromet | | | | | | ry shows | | | | | | moderate(FEV1/FVC<70%, | | | | | | 50%,<FEV1<80% predicted) | | | | | | | | | | | | airflowobstruction. T | | | | | | he FEV1 increased 9 % | | | | | | after inhaled albuterol | | | | | | which does not meetATS | | | | | | criteria for significant | | | | | | reversibility. The | | | | | | cut point for | | | | | | significantreversibility | | | | | | is an increase in FEV1 | | | | | | or FVC of 12% and 200ml | | | | | | from baseline. Increases | | | | | | between 5-12% suggest | | | | | | some degree of | | | | | | reversibility. A | | | | | | failure torespond to | | | | | | bronchodilators on | | | | | | spirometric testing does | | | | | | not preclude a | | | | | | clinicalresponse to | | | | | | bronchodilators. | | | | | | Since 03/28/08, the FEV1 | | | | | | has increased by 1%.The | | | | | | FVC has decreased by | | | | | | 3%. Between test | | | | | | variation can be up to | | | | | | 10%. Thesechanges | | | | | | therefore are not | | | | | | significant.Version: | | | | | | [id number] | | | | | | | | | | | | Page 2Name: ALMA, | | | | | | EDGAR | | | | | | ELLEN | | | | | | ID: | | | | | | [id number] | | | | | | | | | | | | | | | | | | | | | | | | PRE | | | | | | | | | | | | | | | | | | | | | | | | | | | | | | POST Version | | | | | | : | | | | | | [id number] | | | | | | | | | | | | Page 3Name: ALMA, | | | | | | EDGAR | | | | | | ELLEN | | | | | | ID: | | | | | | [id number]: | | | | | | [id number] | | | | | | | | | | | | Page 4 | | | | + + + + + + | BREATHING | 0 | % | [facility] | | | RESERVE | | | SPECIAL | | | BASE | | | DIAGNOSTICS | | | | | | - | | | | | | PULMONARY | | | | | | FUNCTION | | + + + + + + | BREATHING | 0 | % | [facility] | | | RESERVE AT | | | SPECIAL | | | | | | DIAGNOSTICS | | | | | | - | | | | | | PULMONARY | | | | | | FUNCTION | | + + + + + + | BREATHING | 0 | % | [facility] | | | RESERVE | | | SPECIAL | | | PEAK | | | DIAGNOSTICS | | | | | | - | | | | | | PULMONARY | | | | | | FUNCTION | | + + + + + + + + | Specimen | + + | | + + + + + + + | Performing | Address | City/State/Zipcode | Phone Number | | Organization | | | | + + + + + | [facility] | [address] | [place], [place] | | | DIAGNOSTICS - | [address] | [address] | | | PULMONARY FUNCTION | | | | + + + + + documented in this encounter Visit Diagnoses + + | Diagnosis | + + | Chronic airway obstruction, not elsewhere classified | + + documented in this encounter"
--- OUTSIDE RECORDS SUMMARY | ~2019-04-25 | XMS | Encounter Summary ---
Demographics + + + | Address | [address] | | | [place] [address] | + + + | Home Phone [...] [place] | | | | | [address] | | + + + + + Care Team Providers + +------+ + | Care Boy'S Adviser Name | Role | Phone | + +------+ + | Kerri Cahvarria NP | PCP | | + +------+ + Encounter Details +--------+ + + + + | Date | Type | Department | Care Team | Description | +--------+ + + + + | 07/01/ | Telephone | [facility] | Ayana Butler W, | | | 2011 | | [place] [facility] [address] | [address] | | | | | [address] | [facility] [place] | | | | | Mailcode: [place] | [address] | | | | | for Health and | [phone] | | | | | [facility] | | | | | | [facility] [place] | | | | | | [address] | | | | | | [phone] | | | +--------+ + + + [...] + | 04/29/ | Diagnostic | [facility] | Marce Meyer | | | 2019 | Visit | | Eve Brisen[place] [address] [place] [address] | | | | | | [address] | | | | | | [place] | | | | | | [address] | | +--------+ + + + + documented as of this encounter Visit Diagnoses Not on filedocumented in this encounter"
--- OUTSIDE RECORDS SUMMARY | ~2019-04-25 | XMS | Encounter Summary ---
Demographics + + + | Address | [address] | | | [place] [address] | + + + | Home Phone [...] [place] | | | | | [address] | | + + + + + Care Team Providers + +------+ + | Care Operating Room Registered Nurse Name | Role | Phone | + +------+ + | Kerri Chavarria RESIDENTIAL MORTGAGE UNDERWRITER | PCP | | + +------+ + Reason for Referral [...] Ct Scan | | | | | Ventral | Ayana Jovel MD | [facility] [address] | | | | | hernia | [address] | [address] | | | | | Procedures | Ave | [address] [place] | | | | | CT ABDOMEN & | [place], [place] | Mailcode: | | | | | PELVIS WWO | [address] | [address] [facility] | | | | | IV CONTRAST | Phone: | Hospital | | | | | | [phone] | [place], [place] | | | | | | Fax: | [address] | | | | | | [phone] | Phone: | | | | | | | [phone] | | | | | | | Fax: | | | | | | | [phone] | +--------+--------+ + + + + Consultation (Routine) +--------+--------+ + + + + | Status | Reason | Specialty | Diagnoses / | Referred By | Referred To | | | | | Procedures | Contact | Contact | +--------+--------+ + + + + | Closed | | Nutrition | Diagnoses | Luke, | Arie, | | | | | Type II or | Ayana Jovel MD | JAMES Howard | | | | | unspecified | [address] | [address] | | | | | type | Ave | [address] [address] | | | | | diabetes | [place] | [place], | | | | | mellitus | [address] | [place] | | | | | without | Phone: | [address] | | | | | mention of | [phone] | | | | | | complication | Fax: | | | | | | , not stated | [phone] | | | | | | as | | | | | | | uncontrolled | | | | | | | Procedures | | | | | | | CONSULT TO | | | | | | | ADULT | | | | | | | MEDICAL | | | | | | | NUTRITIONAL | | | | | | | THERAPY | | | +--------+--------+ + + + + Diagnostic Testing (Routine) +--------+--------+ + + + + | Status | Reason | Specialty | Diagnoses / | Referred By | Referred To | | | | | Procedures | Contact | Contact | +--------+--------+ + + + + | Closed | | Radiology | Diagnoses | Gilbert, | Rad Ct Scan | | | | | Ventral | Ayana Jovel MD | [facility] [address] | | | | | hernia | [address] | [address] | | | | | Procedures | Ave | [place] | | | | | CT ABDOMEN & | [place], [place] | Mailcode: | | | | | PELVIS WWO | [address] | [address] [facility] | | | | | IV CONTRAST | Phone: | [facility] | | | | | | [phone] | [place], [place] | | | | | | Fax: | [address] | | | | | | [phone] | Phone: | | | | | | | [phone] | | | | | | | Fax: | | | | | | | [phone] | +--------+--------+ + + + + Reason for Visit + + + | Reason | Comments | + + + | New Patient Visit | | + + + Consultation (Routine) +--------+ + + + + + | Status | Reason | Specialty | Diagnoses / | Referred By | Referred To | | | | | Procedures | Contact | Contact | +--------+ + + + + + | Closed | Specialty | Surgery | Diagnoses | [facility] | Kieran | | | Services | | Ventral | Epic Dept | MD Lalo | | | Required | | hernia | | [address] | | | | | Procedures | | [address] | | | | | CONSULT TO | | Rd [place], | | | | | SURGERY - | | [place] | | | | | GENERAL | | [address] | | | | | | | Phone: | | | | | | | [phone] | | | | | | | Fax: | | | | | | | [phone] | +--------+ + + + + + Encounter Details +--------+---------+ + + + | Date | Type | Department | Care Team | Description | +--------+---------+ + + + | 05/21/ | Office | Digestive Health | Ayana Butler W, | Ventral hernia | | 2011 | Visit | [place] [facility] [address] | MD [address] | (Primary Dx) | | | | [address] | [facility] [place] | | | | | Mailcode: [place] | [address] | | | | | for Health and | [phone] | | | | | [facility], [facility] [address] | | | | | | [place], [place] | | | | | | [address] | | | | | | [phone] | | | +--------+---------+ + + + [...] + + + | Blood Pressure | 156/78 | 05/21/2012 10:50 AM | | | | | PDT | | + + + + + | Pulse | 97 | 05/21/2012 10:50 AM | | | | | PDT | | + + + + + | Temperature | 36.4 C (97.5 F) | 05/21/2012 10:50 AM | | | | | PDT | | + + + + + | Respiratory Rate | 16 | 05/21/2012 10:50 AM | | | | | PDT | | + + + + + | Oxygen Saturation | - | - | | + + + + + | Inhaled Oxygen | - | - | | | Concentration | | | | + + + + + | Weight | 117.5 kg (259 lb) | 05/21/2012 10:50 AM | | | | | PDT | | + + + + + | Height | 188 cm (6' 2") | 05/21/2012 10:50 AM | | | | | PDT | | + + + + + | Body Mass Index | 33.25 | 05/21/2012 10:50 AM | | | | | PDT | | + + + + + documented in this encounter Progress Notes Ayana Butler MD - 05/22/2012 7:54 AM PDTFormatting of this note might be different fro m the original. [facility] Initial Visit 05/21/2012 ID: The patient is a 46 yom with ventral incisional hernia- asked to evaluate for surgical repair. HPI: Mr Marquez is a 46 yr old male with an extensive history of previous ventral hernia re pairs, most recently in 2008, who currently presents with umbilical hernia. Pt says the millicent ia has been present shortly after his most recent attempted repair in 2008, which has progre ssively increased in size and pain. He states that the pain from his previous surgeries neve r subsided and describes it as a sharp pain over the entire abdomen unrelieved by pain meds. He is here today with his caregiver. Complications from his previous surgeries have led to ex lap x 3 with ileostomy and colost kelly placements due to wound dehiscence and infection. The pt has been seen at [facility] as well as [facility] for treatment, with no resolution. Mr Alma is an activel smoker, currently smoking approx 2pack/day of cigarettes. Pt hist ory implies use of marijuana as well. 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 Denies nausea, vomiting. Inconsistent bm s but no chronic diarrhea. No history of freque nt heavy lifting. +chronic cough, +DM. History of MRSA infection. History of wound complic ations and infections following surgery. He denies history of strangulation of current hernia or SBO. Review of Systems: General: No constitutional symptoms of fevers, fatigue, chills, weight loss or sweats. Eyes: No changes in vision loss, double vision, eye pain, eye irritation, discharge, blurr ed vision or light sensitivity. Ears, Nose and Throat: cochlear implant Respiratory: Wheezing, cough, history of CXR with lesion Musculoskeletal: chronic pain Gastrointestinal: constipation, gas, abdominal pain, recent colonoscopy Genitourinary: urinary incontinence Neurologic: loss of sensory and motor function in left leg due to trauma Skin: papular skin lesions present Psychological: bipolar disorder Past Medical History Diagnosis Date Other general symptoms Heart attack Hypertension Other and unspecified hyperlipidemia Chronic airway obstruction, not elsewhere classified Shortness of breath GERD (gastroesophageal reflux disease) UTI (urinary tract infection) Diabetes mellitus type II Depressive disorder, not elsewhere classified Anxiety state, unspecified Unspecified nonpsychotic mental disorder Seizure disorder Past Surgical History Procedure Date Pr sinus surgery proc unlisted Ventral Hernia Repair x 3 2006 2008 Occupational History None on ssi disability Social History Main Topics Smoking status: Current Everyday Smoker -- 3.0 packs/day for 20 years Types: Cigarettes Smokeless tobacco: Never Used Comment: Pt smokes 3 packs of cigarettes per day x 20 years. Started smoking at age 8. Alcohol Use: 0.5 - 1.0 oz/week 1-2 drink(s) per week Pt buys case of beer with paycheck at start of month--drinks that and none for rest of [facility] Drug Use: Yes Special: Oral, Smoke Medical marijuana Social History Narrative Pt is living in facility in the [facility]. Has caregiver.Frequent incarcerations in the past with much of his younger life spent in the assisted system--no fpc time x 7 years Current Medication List Name Sig ALBUTEROL SULFATE (BULK) MISC ASPIRIN 81 MG TABLET Take 1 Tab by mouth once daily. TUMS 500 ORAL Take by mouth. CARBAMAZEPINE 200 MG TABLET Take 200 mg by mouth two times daily. CHLORHEXIDINE GLUCONATE 4 % TOPICAL LIQUID Apply 15 mL to affected area as needed. Scrub 3 minutes and rinse thoroughly, wash for an additional 3 minutes. CHOLECALCIFEROL (VITAMIN D3) 2,000 UNIT CAPSULE Take by mouth once daily. CYCLOBENZAPRINE 10 MG TABLET Take 10 mg by mouth three times daily as needed. Do not use lo nger than 2-3 weeks. DOCUSATE SODIUM 100 MG CAPSULE Take 100 mg by mouth two times daily. FUROSEMIDE 10 MG ORAL DOSE Take 20 mg by mouth once daily. GABAPENTIN 800 MG TABLET Take 800 mg by mouth three times daily. HYDROCHLOROTHIAZIDE 25 MG TABLET Take 25 mg by mouth once daily. HYDROCODONE-ACETAMINOPHEN 5 MG-500 MG TABLET Take 1 Tab by mouth every four hours as needed . Not to exceed 6 tablets per any 24 hour period. (Not to exceed 3250 mg of acetaminophen fr om all products per 24 hour period.) IBUPROFEN 800 MG TABLET Take 800 mg [...] by mouth every four hours as needed. LOVASTATIN 20 MG TABLET Take 20 mg by mouth once daily in the evening. Administer with even ing meal. LATUDA ORAL Take by mouth. METFORMIN 500 MG TABLET Take 500 mg by mouth two times daily. METHYLCELLULOSE POWDER MIRTAZAPINE 30 MG TABLET Take 30 mg [...] by mouth four times daily as needed. TRAMADOL 50 MG TABLET Take 50 mg by mouth every six hours as needed. SULFAMETHOXAZOLE-TRIMETHOPRIM 800 MG-160 MG TABLET Take 1 Tab by mouth two times daily. Allergies Allergen Reactions Morphine Psychosis? Penicillins Rash Family History Problem Relation Lung Disease Mother COPD (smoker) Lung Disease Sister "lung disease" (smoker) PE: BP 156/78 | Pulse 97 | Temp (Src) 36.4 C (97.5 F) (Oral) | RR 16 | Ht 1.88 m (6' 2") | Wt 117.482 kg (259 lb) | BMI 33.25 kg/(m^2) Gen: Alert and Oriented. Obese male in a wheel chair. HEENT: Conj clear, perrl, neck supple, sclerae anicteric, no sublingual jaundice, EOMI, OP clear. Cochlear device visible. Glasses. CV: rrr no murmur PULM: diffuse expiratory wheeze. GI: soft, distended, midline well healed scar. Diffusely tender to palpation in all 4 quadr ants. 5x5cm ventral hernia present with very thin overlying skin, wide based fascial defect, peristalsis of bowel visible. NEURO: left leg flaccid without sensation or motor ability at hip, knee or ankle. right upp er extremity tremor. EXT: no edema; warm Psych: patient has normal affect, pleasant, answers questions appropriately Assessment and Plan: Mr Edgar Marquez is a 46yr old male with a long surgical history of ventral hernia repairs assoc with multiple compications, most recently in February 2009, here for consultation of rep air of recurrent ventral hernia. Pt history shows an extensive history of complications from operations including wound dehiscence and infection. At this time. Prior to repair the pat ient would have to maintain smoking cessation for 1 month in an effort to reduce the likelih ood of recurrent hernia and wound complications. He is likely to have extensive abdominal a dhesions from previous surgeries, however, laparascopic hernia repair may still be an option . Mr Marquez has accepted a prescription for Chantix and has agreed to call this office afte r 30 days of smoking cessation. He also received a nutrition consult, as losing weight can o nly aid in his recovery and improved health moving forward. 1. Pt prescribed chantix, patient extensively counseled on the necessity of smoking cessati on prior to surgery 2. MRSA swab obtained for pt s previous history of MRSA infection 3. Nutrition consult obtained to assist with ADA diet and weight loss. 4. Will obtain all outside OP reports. 5. Will obtain CT A/P to assess anatomy of hernia/fascial defect 6. CXR 2v to reassess lung mass seen on previous CXR 7. Patient will need pulm and card work up pre-op 8. Follow up in clinic in 6 wks or sooner if has not smoked for 3 weeks. Cyndee Paiz - 1 6:23 PM PDTBlue Surgery Progress Note ID: Edgar Corleygard Attending Physician: Ayana Butler MD Mary Chapman MA - 1 1:01 PM PDTRx for aspirin 81 mg tab was phoned into the Pt [facility] Ph brian @ [phone]. Tdocumented in this encounter Plan of Treatment +--------+ + + + + | Date | Type | Specialty | Care Team | Description | +--------+ + + + + | 04/29/ | Diagnostic | Sales Representative Business Courses | Marce Meyer | | | 2019 | Visit | | Eve Briseno [address] [facility] | | | | | | [address] | | | | | | [place], [place] | | | | | | [address] | | +--------+ + + + + + +---------+--------+ + + | Name | Type | Priori | Associated Diagnoses | Order Schedule | | | | ty | | | + +---------+--------+ + + | CT ABDOMEN & PELVIS | Imaging | Routin | Ventral hernia | Expected: | | WWO IV CONTRAST | | e | | 05/22/2012, Expires: | | | | | | 06/21/2013 | + +---------+--------+ + + | X-RAY CHEST 2 VIEW | Imaging | Routin | Ventral hernia | Expected: | | | | e | | 05/21/2012, Expires: | | | | | | 06/21/2013 | + +---------+--------+ + + documented as of this encounter Procedures + +--------+ + + + | Procedure Name | Priori | Date/Time | Associated Diagnosis | Comments | | | ty | | | | + +--------+ + + + | CULTURE, MRSA ONLY | Routin | 05/21/2012 | Ventral hernia | Results for this | | | e | 12:27 PM | | procedure are in the | | | | PDT | | results section. | + +--------+ + + + documented in this encounter Results CULTURE, MRSA ONLY (05/21/2012 12:27 PM PDT) + + + + + + | Component | Value | Ref Range | Performed | Pathologist | | | | | At | Signature | + + + + + + | CULTURE | C MRSASource: Nasal | | [facility] - | | | RESULT | Swab | | [facility] - | | | | Final | | [place] | | | | CULTURE RESULT:No | | | | | | Methicillin Resistant | | | | | | Staphylococcus aureus | | | | + + + + + + + + | Specimen | + + | Swab - Nasal | + + + + + + + | Performing | Address | City/State/Zipcode | Phone Number | | Organization | | | | + + + + + | [facility] | [address] | [place] [address] | | | [facility] | | | | + + + + + documented in this encounter Visit Diagnoses + + | Diagnosis | + + | Ventral hernia - Primary Ventral hernia, unspecified, without mention of obstruction | | or gangrene | + + documented in this encounter
--- OUTSIDE RECORDS SUMMARY | ~2019-04-25 | XMS | Encounter Summary ---
Demographics + + + | Address | [address] | | | [place] [address] | + + + | Home Phone | | + + + | Preferred Language | Unknown | + + + | Marital Status | Single | + + + | Yazidism Affiliation | BAP | + + + [...] [place] | | | | | [address] | | + + + + + Care Team Providers + +------+ + | Care Touch Up Carver Name | Role | Phone | + +------+ + | Kerri Chavarria NP | PCP | | + +------+ + Reason for Visit + + + | Reason | Comments | + + + | Medical Records | | | Review | | + + + Encounter Details +--------+ + + + + | Date | Type | Department | Care Team | Description | +--------+ + + + + | 04/13/ | Abstract | Digestive Health | Clinic, Surgery | Medical Records | | 2011 | | Center at [facility] [address] | | Review | | | | [address] | | | | | | Mailcode: Center | | | | | | for Health and | | | | | | Healing, Building [address] | | | | | | [place], [place] | | | | | | [address] | | | | | | [phone] | | | +--------+ + + + [...] + + | 04/29/ | Diagnostic | Home Economics Expert | Marce Meyer | | | 2019 | Visit | | Eve Briseno [address] [facility] | | | | | | [address] | | | | | | [place] | | | | | | [address] | | +--------+ + + + + documented as of this encounter Visit Diagnoses Not on filedocumented in this encounter"
--- OUTSIDE RECORDS SUMMARY | ~2019-04-25 | XMS | Encounter Summary ---
Demographics + + + | Address | [address] | | | [place] [address] | + + + | Home Phone [...] [place] | | | | | [address] | | + + + + + Care Team Providers + +------+ + | Care Multiple Needle Stitcher Name | Role | Phone | + +------+ + | Deidre Card | PCP | | + +------+ + Encounter Details +--------+ + + + + | Date | Type | Department | Care Team | Description | +--------+ + + + + | 07/28/ | Documentati | Otolaryngology | Haroon Poe, | | | 2008 | on | [facility] Services | PhD | | | | | [address] | | | | | | [place] Mailcode: | | | | | | [address] [facility] | | | | | | [place], | | | | | | [place] [address] | | | | | | [phone] | | | +--------+ + + + [...] + + | 04/29/ | Diagnostic | Educational Therapy Teacher | Marce Meyer | | | 2019 | Visit | | Eve Briseno [address] [facility] | | | | | | [address] | | | | | | [place] | | | | | | [address] | | +--------+ + + + + documented as of this encounter Visit Diagnoses Not on filedocumented in this encounter"
--- OUTSIDE RECORDS SUMMARY | ~2019-04-25 | XMS | Encounter Summary ---
Demographics + + + | Address | [address] | | | [place] [address] | + + + | Home Phone [...] [place] | | | | | [address] | | + + + + + Care Team Providers + +------+ + | Care Machine Compositor Name | Role | Phone | + +------+ + | Cee Triana MD | PCP | Unavailable | + +------+ + Encounter Details +--------+ + + + + | Date | Type | Department | Care Team | Description | +--------+ + + + + | 08/18/ | Orders Only | [facility] [address] | Mundo Monge | Ventral hernia, | | 2012 | | [address] | [address] | unspecified, without | | | | [id number] Kelsie | [address] [place], | mention of | | | | [facility], | [place] [address] | obstruction or | | | | [place] [address] | | gangrene (Primary | | | | [phone] | | Dx) | +--------+ + + + + Social [...] + + | 04/29/ | Diagnostic | Equipment Washer | Marce Meyer | | | 2019 | Visit | | Finn, Eve [address] [facility] | | | | | | [address] | | | | | | [place], [place] | | | | | | [address] | | +--------+ + + + + documented as of this encounter Procedures + +--------+ + + + | Procedure Name | Priori | Date/Time | Associated Diagnosis | Comments | | | ty | | | | + +--------+ + + + | CONFIRMATORY ABO/RH | Urgent | 08/19/2012 | Ventral hernia, | Results for this | | | | 10:59 AM | unspecified, without | procedure are in the | | | | PST | mention of | results section. | | | | | obstruction or | | | | | | gangrene | | + +--------+ + + + documented in this encounter Results CONFIRMATORY ABO/RH (08/19/2012 10:59 AM PST) + + + + + [...] + + + + + | [facility] | [address] | [place] [address] | | | SERVICES, | [address] | | | | TRANSFUSION MEDICINE | | | | + + + + + documented in this encounter Visit Diagnoses + + | Diagnosis | + + | Ventral hernia, unspecified, without mention of obstruction or gangrene - Primary | + + documented in this encounter"
--- OUTSIDE RECORDS SUMMARY | ~2019-04-25 | XMS | Encounter Summary ---
Demographics + + + | Address | [address] | | | [place] [address] | + + + | Home Phone [...] [place] | | | | | [address] | | + + + + + Care Team Providers + +------+ + | Care Evidence Custodian Name | Role | Phone | + [...] 12/30/ | Refill | Digestive Health | Ayaan Butler, | Refill Request | | 2012 | | Center at [facility] [address] | MD [address] | (10/06/12) | | | | [address] | [place], [place] | | | | | Mailcode: [place] | [address] | | | | | for Health and | [phone] | | | | | [facility] [address] | | | | | | [place], [place] | | | | | | [address] | | | | | | [phone] | | | +--------+--------+ + + + [...] + + | 04/29/ | Diagnostic | Tank Car Repairer | Marce Meyer | | | 2019 | Visit | | Eve Briseno [address] | | | | | | [address] | | | | | | [place] | | | | | | [address] | | +--------+ + + + + documented as of this encounter Visit Diagnoses Not on filedocumented in this encounter"
--- OUTSIDE RECORDS SUMMARY | ~2019-04-25 | XMS | Encounter Summary ---
Demographics + + + | Address | [address] | | | [place] [address] | + + + | Home Phone | | + + + | Preferred Language | Unknown | + + + | Marital Status | Single | + + + | Adventist Affiliation | BAP | + + + [...] [place] | | | | | [address] | | + + + + + Care Team Providers + +------+ + | Care Commander Police Reserves Name | Role | Phone | + +------+ + | Jaison Chávez MD | PCP | | + +------+ + Encounter Details +--------+ + + + + | Date | Type | Department | Care Team | Description | +--------+ + + + + | 11/19/ | Results | NON-[facility] EPIC | Omari [...] + + | 04/29/ | Diagnostic | Trimming Cutter Machine | Marce Meyer | | | 2019 | Visit | | Eve Briseno [address] | | | | | | [address] | | | | | | [place], [place] | | | | | | [address] | | +--------+ + + + + documented as of this encounter Procedures + +--------+ + + + | Procedure Name | Priori | Date/Time | Associated Diagnosis | Comments | | | ty | | | | + +--------+ + + + | CBC W/DIFF, REFLEX | Routin | 11/19/2009 | | Results for this | | | e | 3:35 PM | | procedure are in the | | | | PDT | | results section. | + +--------+ + + + | COMPLETE METABOLIC | Routin | 11/19/2009 | | Results for this | | SET | e | 3:35 PM | | procedure are in the | | (NA,K,CL,CO2,BUN,CRE | | PDT | | results section. | | AT,GLUC,CA,AST,ALT,B | | | | | | TERRY TOTAL,ALK | | | | | | PHOS,ALB,PROT TOTAL) | | | | | + +--------+ + + + | C-REACTIVE PROTEIN | Routin | 11/19/2009 | | Results for this | | | e | 3:35 PM | | procedure are in the | | | | PDT | | results section. | + +--------+ + + + documented in this encounter Results C-REACTIVE PROTEIN (11/19/2009 3:35 PM PDT) + + + + + + | Component | Value | Ref Range | Performed | Pathologist | | | | | At | Signature | + + + + + + | C-REACTIVE | 1.29 (H)Comment: Test | <0.80 mg/dL | [facility] | | | PROTEIN | performed at [facility] | | [facility] | | | | [id number] | [facility] | | | | [address] | | | | | | [address], | | | | | | [place] [address] | | | | | | : ASHLEY HORTON MD | | | | + + + + + + + + | Specimen | + + | | + + + + + + + | Performing | Address | City/State/Zipcode | Phone Number | | Organization | | | | + + + + + | [facility] | [address] | [place] [address] | [phone] | | [facility] | | | | + + + + + | [facility] | | | | | [facility] | | | | + + + + + CBC W/DIFF, REFLEX (11/19/2009 3:35 PM PDT) + + + + + + | Component | Value | Ref Range | Performed | Pathologist | | | | | At | Signature | + + + + + + | WHITE BLOOD | 9.3 | 4.3 - 11.0 X10 | [facility] | | | CELL COUNT | | 3/ul | A MEDICAL | | | | | | CENTER | | + + + + + + | WBC, | SENIOR JAVA DATA ARCHITECT | X10 3/uL | [facility] | | | ADJUSTED | | | A MEDICAL | | | | | | CENTER | | + + + + + + | HEMOGLOBIN | 10.8 (L) | 12.3 - 17.0 | [facility] | | | | | g/dL | A MEDICAL | | | | | | CENTER | | + + + + + + | RED BLOOD | 3.39 (L) | 4.7 - 6.1 X10 | [facility] | | | CELL COUNT | | 6/uL | A MEDICAL | | | | | | CENTER | | + + + + + + | HEMATOCRIT | 29.5 (L) | 40.0 - 54.0 % | [facility] | | | | | | A MEDICAL | | | | | | CENTER | | + + + + + + | MCV | 87.1 | 82 - 100 fl | [facility] | | | | | | A MEDICAL | | | | | | CENTER | | + + + + + + | MCH | 31.8 | 28.0 - 32.0 pg | [facility] | | | | | | A MEDICAL | | | | | | CENTER | | + + + + + + | MCHC | 36.4 (H) | 32 - 36 g/dL | [...] | PLATELET | 159 | 150 - 450 X10 3 | [...] + + + + | NEUTROPHIL | 78.2 | 40 - 80 % | [facility] | | | % | | | A MEDICAL | | | | | | CENTER | | + + + + + + | LYMPHOCYTE | 11.2 (L) | 20 - 50 % | [facility] | | | % | | | A MEDICAL | | | | | | CENTER | | + + + + + + | EOS % | 4.5 | 0 - 5 % | [facility] | | | | | | A MEDICAL | | | | | | CENTER | | + + + + + + | BASO % | 0.2 | 0 - 1 % | [facility] | | | | | | A MEDICAL | | | | | | CENTER | | + + + + + + | MONOCYTE % | 5.9 | 2 - 10 % | [facility] | | | | | | A MEDICAL | | | | | | CENTER | | + + + + + + | BANDS % | SENIOR JAVA DATA ARCHITECT | 0 - 7 % | [facility] | | | | | | A MEDICAL | | | | | | CENTER | | + + + + + + | NEUTRO % | 77 (H) | 40 - 70 % | [...] + + + + | EOSINOPHIL% | 4 | 0 - 5 % | [facility] [...] + + + + | REACTIVE | SENIOR JAVA DATA ARCHITECT | 0.0 - 4.0 % | [facility] | | | LYMPHS % | | | A MEDICAL | | | | | | CENTER | | + + + + + + | BANDS % | SENIOR JAVA DATA ARCHITECT | 0 - 7 % | [facility] | | | | | | A MEDICAL | | | | | | CENTER | | + + + + + + | METAMYELOCY | SENIOR JAVA DATA ARCHITECT | 0 - 0 % | [facility] | | | BRANDON % | | | A MEDICAL | | | | | | CENTER | | + + + + + + | MYELOCYTES | SENIOR JAVA DATA ARCHITECT | 0 - 0 % | [facility] | | | % | | | A MEDICAL | | | | | | CENTER | | + + + + + + | PROMYELOCYT | SENIOR JAVA DATA ARCHITECT | 0 - 0 % | [facility] | | | ES % | | | A MEDICAL | | | | | | CENTER | | + + + + + + | BLASTS | SENIOR JAVA DATA ARCHITECT | 0 - 0 % | [facility] [...] + + + + | RBC | NORM RBC MORPHOLOGY | NORMAL | [facility] | | [...] + + + + | NUCLEATED | SENIOR JAVA DATA ARCHITECT | | [facility] | | | RBCS | | | A MEDICAL | | | | | | CENTER | | + + + + + + | GIANT PLT | SENIOR JAVA DATA ARCHITECT | | [facility] | | | | | | A MEDICAL | | | | | | CENTER | | + + + + + + | SEDIMENTATI | 44 (H) | 1 - 15 MM/HR | [...] | + + + + + | [facility] | And | [place] [address] | | | [facility] | Streets | | | + + + + + COMPLETE METABOLIC SET (NA,K,CL,CO2,BUN,CREAT,GLUC,CA,AST,ALT,BILI TOTAL,ALK PHOS,ALB,PROT TOTAL) (11/19/2009 3:35 PM PDT) + +-------+ + + + | Component | Value | Ref Range | Performed | Pathologist | | | | | At | Signature | + +-------+ + + + | SODIUM, | 139 | 137 - 146 MEQ/L | [facility] | | | PLASMA | | | A MEDICAL | | | (LAB) | | | CENTER | | + +-------+ + + + | POTASSIUM, | 4.5 | 3.5 - 5.2 MEQ/L | [facility] | | | PLASMA | | | A MEDICAL | | | (LAB) | | | CENTER | | + +-------+ + + + | CO2 | 26 | 22 - 28 MEQ/L | [facility] | | | | | | A MEDICAL | | | | | | CENTER | | + +-------+ + + + | CHLORIDE, | 102 | 98 - 106 MEQ/L | [facility] | | | PLASMA | | | A MEDICAL | | | (LAB) | | | CENTER | | + +-------+ + + + | GLUCOSE, | 76 | 70 - 105 MG/DL | [facility] | | | PLASMA | | | A MEDICAL | | | (LAB) | | | CENTER | | + +-------+ + + + | BUN, PLASMA | 17 | 8 - 30 MG/DL | [facility] | | | (LAB) | | | A MEDICAL | | | | | | CENTER | | + +-------+ + + + | CREATININE | 0.92 | 0.9 - 1.3 MG/DL | [facility] | | | PLASMA | | | A MEDICAL | | | (LAB) | | | CENTER | | + +-------+ + + + | BUN/CREATIN | 18 | 6 - 20 RATIO | [facility] | | | INE RATIO | | | A MEDICAL | | | | | | CENTER | | + +-------+ + + + | CALCIUM, | 9.3 | 8.5 - 10.8 | [facility] | | | PLASMA | | MG/DL | A MEDICAL | | | (LAB) | | | CENTER | | + +-------+ + + + | AST(SGOT) | 17 | 10 - 41 U/L | [facility] | | | | | | A MEDICAL | | | | | | CENTER | | + +-------+ + + + | ALT (SGPT) | 18 | 7 - 51 U/L | [facility] | | | | | | A MEDICAL | | | | | | CENTER | | + +-------+ + + + | ALK PHOS | 77 | 40 - 180 U/L | [facility] | | | | | | A MEDICAL | | | | | | CENTER | | + +-------+ + + + | TOTAL | 6.7 | 6.7 - 8.5 G/DL | [facility] | | | PROTEIN, | | | A MEDICAL | | | PLASMA | | | CENTER | | | (LAB) | | | | | + +-------+ + + + | ALBUMIN, | 4.0 | 3.5 - 5.0 G/DL | [facility] | | | PLASMA | | | A MEDICAL | | | (LAB) | | | CENTER | | + +-------+ + + + | BILIRUBIN | 0.4 | 0.2 - 1.6 MG/DL | [facility] | | | TOTAL | | | A MEDICAL | | | | | | CENTER | | + +-------+ + + + | ESTIMATED | >60.0 | >60 | [facility] | | | GFR | | | A MEDICAL | | | | | | CENTER | | + +-------+ + + + | FASTING? | UNK [...] | + + + + + | [facility] | And | [place] [address] | | | [facility] | [place] | | | + + + + + documented in this encounter Visit Diagnoses Not on filedocumented in this encounter"
--- OUTSIDE RECORDS SUMMARY | ~2019-04-25 | XMS | Encounter Summary ---
Demographics + + + | Address | [address] | | | [place] [address] | + + + | Home Phone [...] [place] | | | | | [address] | | + + + + + Care Team Providers + +------+ + | Care General I Farmworker Name | Role | Phone | + [...] | | | [address] | [place], [place] | | | | | Mailcode: [address] | [address] | | | | | Physician's [address] | [phone] | | | | | [place], [place] | | | | | | [address] | | | | | | [phone] | | | +--------+---------+ + + + [...] Marquez is status post right ear revision steju-oqow-daol tympanomastoidectomy on 12/22/[address] Plunkett. He [...] for exam and cleaning of right ear bdpct-grdp-apcm tympanomastoide ctomy cavity. Meatus is widely patent. Facial ridge is low. I remove some granulation tissue from sinodural angle and cauterize it with silver nitrate. A/P: Edgar Marquez is doing well status post right ear revision oiccy-tgah-yfvy tymp anomastoidectomy on 12/22/13. He will follow up in 3 months for more ear cleaning.Electronica lly signed by Diamond Gipson MD at 03/07/2014 12:16 AM PDTdocumented in this encounter Plan of Treatment +--------+ + + + + | Date | Type | Specialty | Care Team | Description | +--------+ + + + + | 04/29/ | Diagnostic | Electrician Substation | Marce Meyer | | | 2018 | Visit | | K, AuD [address] | | | | | | [address] | | | | | | [place], [place] | | | | | | [address] | | +--------+ + + + + documented as of this encounter Visit Diagnoses + + | Diagnosis | + + | Postop check - Primary Follow-up examination, following unspecified surgery | + + documented in this encounter"
--- OUTSIDE RECORDS SUMMARY | ~2019-04-25 | XMS | Encounter Summary ---
Demographics + + + | Address | [address] | | | [place] [address] | + + + | Home Phone [...] | Margarito Owusu | ECON | [address] | | | | | [place] | | | | | [address] | | + + + + + Care Team Providers + +------+ + | Care Product Safety Administrator Name | Role | Phone | + +------+ + PCP | Unavailable | + +------+ + Encounter Details +--------+ + + + + | Date | Type | Department | Care Team | Description | +--------+ + + + + | 06/12/ | Office | | Note, Outpatient | [...] as of this encounter Progress Notes Interface, Supervisor Wheel Shop In - 02/23/2005 8:51 AM PDT [id number] [facility] Date: 06/12/2004 Clinic: Edgar, a 38-year-old with bilateral profound sensorineural hearing loss, was seen today for his 1-month followup with his nucleus 24 device. Actually, he did not show for his 2-week followup so this was the first evaluation and programming followup since his initial activation. Threshold and comfort levels were reevaluated using counting Ts. His comfort levels were increased significantly using live voice. Using this, he was able to answer simple questions as well as identify single word utterances. This was done in the office in a noncalibrated environment. I also gave him some input on how to use the telephone coil. We actually tried it in the clinic, and he did quite well. He will return for followup programming in spring or sooner if needed. Haroon Poe Ed.D. Flat Lock Machine Operator / [id number] / [id number] / [id number] / documented i n this encounter Plan of Treatment +--------+ + + + + | Date | Type | Specialty | Care Team | Description | +--------+ + + + + | 04/29/ | Diagnostic | Automobile Accessories Installer | Marce Meyer | | | 2019 | Visit | | K, Eve [address] [facility] | | | | | | [address] | | | | | | [place], [place] | | | | | | [address] | | +--------+ + + + + documented as of this encounter Visit Diagnoses Not on filedocumented in this encounter"
--- OUTSIDE RECORDS SUMMARY | ~2019-04-25 | XMS | Encounter Summary ---
Demographics + + + | Address | [address] | | | [place] [address] | + + + | Home Phone [...] [place] | | | | | [address] | | + + + + + Care Team Providers + +------+ + | Care Human Projectile Name | Role | Phone | + [...] PhD | Scottie) | | | | [address] | | | | | | [place] Mailcode: | | | | | | [address] Physician's | | | | | | [place], | | | | | | [place] [address] | | | | | | [phone] | | | +--------+ + + + [...] + + | 04/29/ | Diagnostic | Sample Carrier | Marce Meyer | | | 2019 | Visit | | Eve Briseno [address] [facility] [address] [facility] | | | | | | [address] | | | | | | [place] | | | | | | [address] | | +--------+ + + + + documented as of this encounter Visit Diagnoses Not on filedocumented in this encounter"
--- OUTSIDE RECORDS SUMMARY | ~2019-04-25 | XMS | Encounter Summary ---
Demographics + + + | Address | [address] | | | [place] [address] | + + + | Home Phone [...] + + | Author | [facility] | + + + | Organization | [facility] | + + + | Address | Unknown | + + + | Phone | Unavailable | + + + Support + + + + + | Name | Relationship | Address | Phone | + + + + + | Margarito Owusu | ECON | [address] | | | | | [place] | | | | | [address] | | + + + + + Care Team Providers + +------+ + | Care Underground Mining Section Foreman Name | Role | Phone | + [...] | +--------+ + + + + | 09/25/ | Documentati | Endoscopic | Lab, Gi Procedure | Medical Records | | 2011 | on | Procedural Unit at | | Review | | | | [facility] | | | | | | [address] | | | | | | Mailcode: OC2L | | | | | | [facility] | | | | | | and Healing, | | | | | | [address] | | | | | | [place], [place] | | | | | | [address] | | | | | | [phone] | | | +--------+ + + + [...] + | 04/29/ | Diagnostic | Jewelry Engraver | Marce Meyer | | | 2019 | Visit | | Eve Briseno [address] | | | | | | [address] | | | | | | [place] | | | | | | [phone] | | +--------+ + + + + documented as of this encounter Visit Diagnoses Not on filedocumented in this encounter"
--- OUTSIDE RECORDS SUMMARY | ~2019-04-25 | XMS | Encounter Summary ---
Demographics + + + | Address | [address] | | | [place] [address] | + + + | Home Phone [...] [place] | | | | | [address] | | + + + + + Care Team Providers + +------+ + | Care Laborer Golf Course Name | Role | Phone | + +------+ + | Jaison Chávez MD | PCP | | + +------+ + Encounter Details +--------+ + + + + | Date | Type | Department | Care Team | Description | +--------+ + + + + | 09/26/ | Results | NON-[facility] EPIC | Marion Rees, | | | 2008 | Only | Department | MARY Walker | | | | | | [facility] [place] [facility] | | | | | | [facility] [address] | | [address] [place], | | | | | | [place] [address] | | | | | | [phone] | | | | | | | [...] + + | 04/29/ | Diagnostic | Drilling Assistant | Marce Meyer | | | 2019 | Visit | | Eve Briseno [address] | | | | | | [address] | | | | | | [place], [place] | | | | | | [address] | | +--------+ + + + + documented as of this encounter Procedures + +--------+ + + + | Procedure Name | Priori | Date/Time | Associated Diagnosis | Comments | | | ty | | | | + +--------+ + + + | OCCULT BLOOD, FECES, | Routin | 09/26/2008 | | Results for this | | DIAGNOSTIC | e | 12:00 AM | | procedure are in the | | | | PST | | results section. | + +--------+ + + + documented in this encounter Results OCCULT BLOOD, FECES, DIAGNOSTIC (09/26/2008 12:00 AM PST) + + + + + + | Component | Value | Ref Range | Performed | Pathologist | | | | | At | Signature | + + + + + + | OCCULT | NEGATIVE | NEGATIVE | [facility] | [...] + + + + | [facility] | | [place] [address] | | | [facility] | [facility] | | | + + + + + documented in this encounter Visit Diagnoses Not on filedocumented in this encounter"
--- OUTSIDE RECORDS SUMMARY | ~2019-04-25 | XMS | Encounter Summary ---
Demographics + + + | Address | [address] | | | [place] [address] | + + + | Home Phone [...] Author | [facility] | + + + | Organization | [facility] | + + + | Address | Unknown | + + + | Phone | Unavailable | + + + Support + + + + + | Name | Relationship | Address | Phone | + + + + + | Margarito Owusu | ECON | [address] | | | | | [place] | | | | | [address] | | + + + + + Care Team Providers + +------+ + | Care Ignition Specialist Name | Role | Phone | + +------+ + | Jaison Chávez MD | PCP | | + +------+ + Encounter Details +--------+ + + + + | Date | Type | Department | Care Team | Description | +--------+ + + + + | 03/30/ | Anesthesia | [address] INTRA [address] | [place], | | | 2012 | Event | [address] | [place] Sousa CRNA | | | | | [facility] | | | | | | [facility] | | | | | | Surgery Admitting | | | | | | Desk Located on the | | | | | | 4th floor, Room | | | | | | [address] [facility] [place] | | | | | | [address] | | | +--------+ + + + + Anesthesia Record + + + + + | Procedure Name | Responsible | Anesthesia Start | Anesthesia Stop Time | | | Anesthesiologist | Time | | + + + + + | TYMPANOPLASTY WITH | | | | | CANAL WALL DOWN, | | | | | MEATOPLASTY, NERVE | | | | | MONITORING (Right | | | | | Ear) | | | | + + + + + + + | No events on file. | + + +------+ | Meds | +------+ + + + No medications | on file. | + + + + + | No agents on file. | + + + + | No blood administrations on file. | + + + + | No LDAs on file. | + + documented in this encounter Social [...] + + | 04/29/ | Diagnostic | Sub Acute Care Nurse | Marce Meyer | | | 2019 | Visit | | Eve Briseno [address] | | | | | | [address] | | | | | | [place], [place] | | | | | | [address] | | +--------+ + + + + documented as of this encounter Visit Diagnoses Not on filedocumented in this encounter"
--- OUTSIDE RECORDS SUMMARY | ~2019-04-25 | XMS | Encounter Summary ---
Demographics + + + | Address | [address] | | | [place] [address] | + + + | Home Phone [...] + + + | Author | [facility] | + + + | Organization | [facility] | + + + | Address | Unknown | + + + | Phone | Unavailable | + + + Support + + + + + | Name | Relationship | Address | Phone | + + + + + | Margarito Owusu | ECON | [address] | | | | | [place] | | | | | [address] | | + + + + + Care Team Providers + +------+ + | Care Accountancy Professor Name | Role | Phone | + +------+ + | Deirde Card | PCP | | + +------+ + Encounter Details +--------+ + + + + | Date | Type | Department | Care Team | Description | +--------+ + + + + | 02/11/ | Telephone | Otolaryngology | Haroon Poe, | | | 2005 | | Cochlear Services | PhD | | | | | [address] | | | | | | [place] Mailcode: | | | | | | [address] Phys[address] | | | | | | [place], | | | | | | [place] [address] | | | | | | [phone] | | | +--------+ + + + [...] + + | 04/29/ | Diagnostic | Doweling Machine Operator | Marce Meyer | | | 2019 | Visit | | Eve Briseno [address] [facility] [address] | | | | | | [address] | | | | | | [place], [place] | | | | | | [address] | | +--------+ + + + + documented as of this encounter Visit Diagnoses Not on filedocumented in this encounter"
--- OUTSIDE RECORDS SUMMARY | ~2019-04-25 | XMS | Encounter Summary ---
Demographics + + + | Address | [address] | | | [place] [address] | + + + | Home Phone [...] [place] | | | | | [address] | | + + + + + Care Team Providers + +------+ + | Care Community Associate Name | Role | Phone | + +------+ + | Deidre Card | PCP | | + +------+ + Reason for Visit + + + | Reason | Comments | + + + | Hearing loss | Sent LMN to Medicaid for 2 HP cables | + + + Encounter Details +--------+ + + + + | Date | Type | Department | Care Team | Description | +--------+ + + + + | 09/11/ | Documentati | Otolaryngology | Haroon Poe, | Hearing loss (Sent | | 2009 | on | [facility] Services | PhD | LMN to Medicaid for | | | | [address] | | 2 HP cables) | | | | [address] Mailcode: | | | | | | [address] Physician[address] | | | | | | [place], | | | | | | [place] [address] | | | | | | [phone] | | | +--------+ + + + [...] + + | 04/29/ | Diagnostic | Traveling Secretary | Marce Meyer | | | 2019 | Visit | | Eve Briseno [address] | | | | | | [address] | | | | | | [place], [place] | | | | | | [address] | | +--------+ + + + + documented as of this encounter Visit Diagnoses Not on filedocumented in this encounter"
--- OUTSIDE RECORDS SUMMARY | ~2019-04-25 | XMS | Encounter Summary ---
Demographics + + + | Address | [address] | | | [place] [address] | + + + | Home Phone [...] [place] | | | | | [address] | | + + + + + Care Team Providers + +------+ + | Care Superintendent Operations Division Name | Role | Phone | + +------+ + | Stephie Deidre Jaleesa | PCP | | + +------+ + Reason for Visit + + + | Reason | Comments | + + + | Hearing loss | RMA 11/26/2006 | + + + Encounter Details +--------+ + + + + | Date | Type | Department | Care Team | Description | +--------+ + + + + | 11/26/ | Telephone | [facility] | Haroon Poe, | Hearing loss (RMA | | 2006 | | Floor [address] | PhD | 11/26/2006) | | | | [address] | | | | | | Mailcode: [facility] | | | | | | [place], [place] | | | | | | [address] | | | | | | [phone] | | | +--------+ + + + [...] + + | 04/29/ | Diagnostic | Supervisory Geographer | Marce Meyer | | | 2019 | Visit | | Eve Briseno [address] [facility] | | | | | | [address] | | | | | | [place] | | | | | | [address] | | +--------+ + + + + documented as of this encounter Visit Diagnoses Not on filedocumented in this encounter"
--- OUTSIDE RECORDS SUMMARY | ~2019-04-25 | XMS | Encounter Summary ---
Demographics + + + | Address | [address] | | | [place] [address] | + + + | Home Phone | | + + + | Preferred Language | Unknown | + + + | Marital Status | Single | + + + | Gnosticist Affiliation | BAP | + + + | Race | White | + + + | Ethnic Group | Not or | + + + Author + + + | Author | [facility] | + + + | Organization | [facility] | + + + | Address | Unknown | + + + | Phone | Unavailable | + + + Support + + + + + | Name | Relationship | Address | Phone | + + + + + | Margarito Owusu | ECON | [address] | | | | | [place] | | | | | [address] | | + + + + + Care Team Providers + +------+ + | Care Hydraulic Miner Name | Role | Phone | + [...] | | | | | [address] [facility] | | | | | | | Hospital | | | | | | | [place], [place] | | | | | | | [address] | | | | | | | Phone: | | | | | | | [phone] | | | | | | | Fax: | | | | | | | [phone] | +--------+--------+ + + + + Encounter [...] | | P[facility] [address] | [facility] [address] | chronic otitis | | | | [address] | [place] [address] | externa | | | | Mailcode: CHALO | [phone] | | | | | Physiciankary Perez | (Fax) | | | | | [place], [place] | | | | | | [address] | | | | | | [phone] | | | +--------+---------+ + + + [...] his COPD. Will follow along while in [facility]. -Return to clinic as needed for problems [...] + + | 04/29/ | Diagnostic | Copper Miner Blasting | Marce Meyer | | | 2018 | Visit | | K, AuD [address] [facility] | | | | | | [address] | | | | | | [place], [place] | | | | | | [address] | | +--------+ + + + + documented as of this encounter Procedures + +--------+ + + + | Procedure Name | Priori | Date/Time | Associated Diagnosis | Comments | | | ty | | | | + +--------+ + + + | DE EAR MICROSCOPY | Routin | 12/30/2010 | [...]
--- OUTSIDE RECORDS SUMMARY | ~2019-04-25 | XMS | Encounter Summary ---
Demographics + + + | Address | [address] | | | [place] [address] | + + + | Home Phone [...] [place] | | | | | [address] | | + + + + + Care Team Providers + +------+ + | Care Concrete Craftsman Name | Role | Phone | + +------+ + | Cee Triana MD | PCP | Unavailable | + +------+ + Encounter Details +--------+ + + + + | Date | Type | Department | Care Team | Description | +--------+ + + + + | 09/10/ | Abstract | Digestive Health | Ayana Butler W, | | | 2012 | | Center at [facility] [address] | [address] | | | | | [address] | [facility] [place] | | | | | Mailcode: [place] | [address] | | | | | for Health and | [phone] | | | | | [facility], [facility] [address] | | | | | | [place], [place] | | | | | | [address] | | | | | | [phone] | | | +--------+ + + + [...] | 04/29/ | Diagnostic | Director Of Digital Platforms | Marce Meyer | | | 2019 | Visit | | Eve Briseno [address] [place] [address] | | | | | | [address] | | | | | | [place] | | | | | | [address] | | +--------+ + + + + documented as of this encounter Visit Diagnoses Not on filedocumented in this encounter"
--- OUTSIDE RECORDS SUMMARY | ~2019-04-25 | XMS | Encounter Summary ---
Demographics + + + | Address | [address] | | | [place] [address] | + + + | Home Phone [...] Author + + + | Author | [facility] | + + + | Organization | [facility] | + + + | Address | Unknown | + + + | Phone | Unavailable | + + + Support + + + + + | Name | Relationship | Address | Phone | + + + + + | Margarito Owusu | ECON | [address] | | | | | [place] | | | | | [address] | | + + + + + Care Team Providers + +------+ + | Care Ballistics Tester Name | Role | Phone | + +------+ + | Jaison Chávez MD | PCP | | + +------+ + Encounter Details +--------+ + + + + | Date | Type | Department | Care Team | Description | +--------+ + + + + | 09/10/ | Results | NON-[facility] EPIC | Sergo Leigh | | | 2009 | Only | Department | [facility] Med INTERNAL | | | | | | [facility] | | | | | | [address] | | | | | | [place] [address] | | | | | | [phone] | | | | | | | [...] + + | 04/29/ | Diagnostic | Business Continuity Planning Director | Marce Meyer | | | 2019 | Visit | | Eve Briseno [address] | | | | | | [address] | | | | | | [place], [place] | | | | | | [address] | | +--------+ + + + + documented as of this encounter Procedures + +--------+ + + + | Procedure Name | Priori | Date/Time | Associated Diagnosis | Comments | | | ty | | | | + +--------+ + + + | CBC W/DIFF, REFLEX | Routin | 09/10/2009 | | Results for this | | | e | 9:15 AM | | procedure are in the | | | | PST | | results section. | + +--------+ + + + | COMPLETE METABOLIC | Routin | 09/10/2009 | | Results for this | | SET | e | 9:15 AM | | procedure are in the | | (NA,K,CL,CO2,BUN,CRE | | PST | | results section. | | AT,GLUC,CA,AST,ALT,B | | | | | | TERRY TOTAL,ALK | | | | | | PHOS,ALB,PROT TOTAL) | | | | | + +--------+ + + + | C-REACTIVE PROTEIN | Routin | 09/10/2009 | | Results for this | | | e | 9:15 AM | | procedure are in the | | | | PST | | results section. | + +--------+ + + + documented in this encounter Results C-REACTIVE PROTEIN (09/10/2009 9:15 AM PST) + + + + + + | Component | Value | Ref Range | Performed | Pathologist | | | | | At | Signature | + + + + + + | C-REACTIVE | 0.86 (H)Comment: Test | <0.80 mg/dL | [facility] | | | PROTEIN | performed at [facility] | | [facility] | | | | [id number] | | [facility] | | | | [address] | | | | | | [address], | | | | | | [place] [address] | | | | | | : ASHLEY HORTON MD | | | | + + + + + + + + | Specimen | + + | | + + + + + + + | Performing | Address | City/State/Zipcode | Phone Number | | Organization | | | | + + + + + | [facility] | [address] | [place] [address] | [phone] | | [facility] | | | | + + + + + | [facility] | | | | | [facility] | | | | + + + + + CBC W/DIFF, REFLEX (09/10/2009 9:15 AM PST) + + + + + + | Component | Value | Ref Range | Performed | Pathologist | | | | | At | Signature | + + + + + + | WHITE BLOOD | 8.3 | 4.3 - 11.0 X10 | [facility] | | | CELL COUNT | | 3/ul | A MEDICAL | | | | | | CENTER | | + + + + + + | HEMOGLOBIN | 12.5 | 12.3 - 17.0 | [facility] | [...] + + + + | HEMATOCRIT | 36.9 (L) | 40.0 - 54.0 % | [facility] | | | | | | A MEDICAL | | | | | | CENTER | | + + + + + + | MCV | 84.7 | 82 - 100 fl | [facility] | | | | | | A MEDICAL | | | | | | CENTER | | + + + + + + | MCH | 28.6 | 28.0 - 32.0 pg | [facility] [...] + + + + | RDW | 15.6 (H) | 12 - 15 fL | [facility] | | | | | | A MEDICAL | | | | | | CENTER | | + + + + + + | PLATELET | 171 | 150 - 450 X10 3 | [...] + + + + | NEUTROPHIL | 79.7 | 40 - 80 % | [facility] | | | % | | | A MEDICAL | | | | | | CENTER | | + + + + + + | LYMPHOCYTE | 12.7 (L) | 20 - 50 % | [...] + + + | BASO % | 0.6 | 0 - 1 % | [facility] | | | | | | A MEDICAL | | | | | | CENTER | | + + + + + + | MONOCYTE % | 4.4 | 2 - 10 % | [facility] | | | | | | A MEDICAL | | | | | | CENTER | | + + + + + + | BANDS % | COOLER CONVEYOR LOADER | 0 - 7 % | [facility] | | | | | | A MEDICAL | | | | | | CENTER | | + + + + + + | SEDIMENTATI | 39 (H) | 1 - 15 MM/HR | [...] + + | [facility] | [address] | [place] [address] | | | [facility] | Streets | | | + + + + + COMPLETE METABOLIC SET (NA,K,CL,CO2,BUN,CREAT,GLUC,CA,AST,ALT,BILI TOTAL,ALK PHOS,ALB,PROT TOTAL) (09/10/2009 9:15 AM PST) + + + + + [...] + + | CHLORIDE, | 104 | 98 - 106 MEQ/L | [facility] | | | PLASMA | | | A MEDICAL | | | (LAB) | | | CENTER | | + + + + + + | GLUCOSE, | 126 (H) | 70 - 105 MG/DL | [facility] | | | PLASMA | | | A MEDICAL | | | (LAB) | | | CENTER | | + + + + + + | BUN, PLASMA | 11 | 8 - 30 MG/DL | [facility] | | | (LAB) | | | A MEDICAL | | | | | | CENTER | | + + + + + + | CREATININE | 0.59 (L) | 0.9 - 1.3 MG/DL | [facility] | | | PLASMA | | | A MEDICAL | | | (LAB) | | | CENTER | | + + + + + + | BUN/CREATIN | 18 | 6 - 20 RATIO | [facility] | | | INE RATIO | | | A MEDICAL | | | | | | CENTER | | + + + + + + | CALCIUM, | 8.6 | 8.5 - 10.8 | [facility] | | | PLASMA | | MG/DL | A MEDICAL | | | (LAB) | | | CENTER | | + + + + + + | AST(SGOT) | 21 | 10 - 41 U/L | [facility] | | | | | | A MEDICAL | | | | | | CENTER | | + + + + + + | ALT (SGPT) | 24 | 7 - 51 U/L | [facility] [...] | ESTIMATED | >60.0 | >60 | [facility] | | | GFR | | | A MEDICAL | | | | | | CENTER | | + + + + + + | FASTING? | UNK | HR | [facility] | | | | [...] + + | [facility] | | [place] [address] | | | [facility] | [facility] | | | + + + + + documented in this encounter Visit Diagnoses Not on filedocumented in this encounter"
--- OUTSIDE RECORDS SUMMARY | ~2019-04-25 | XMS | Encounter Summary ---
Demographics + + + | Address | [address] | | | [place] [address] | + + + | Home Phone [...] [place] | | | | | [address] | | + + + + + Care Team Providers + +------+ + | Care Manager Field Services Name | Role | Phone | [...] | | | [address] | [place], [place] | | | | | Mailcode: [address] | [address] | | | | | [facility] | | | | | | [place], [place] | | | | | | [address] | | | | | | [phone] | | | +--------+ + + + [...] Marce Meyer AuD - 03/09/2019 8:30 AM PDT[facility]chle[facility]plant [facility] Name: Edgar Marquez : 1965 Date of Visit: 03/09/2019 Interval: Re-establishing care Participants: Mr. Marquez CI: Left BERG: Right Blocker Automatic: Cochlear External/Internal: N5 (currently using backup Sprint body-worn)/N24 Magnet: 4x Cochlear Implant Programming Summary Background/Medical History: Edgar Harshal [place], 53 y.o., was seen by [facility] Audiology to re-establish care with this cl inic. Mr. Marquez received his Cochlear N24(CS) cochlear implant system at [facility] in 2003. Kp rupa was performed by Dr. Chan and the the cochlear implant was initially activated on 05/14/2004. Mr. Marquez was last seen for programming adjustments at [facility] in 2011. Mr. Melita dillon was [...] Upgrade order form completed and uploaded to legal mediator. 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 An LMN was written and sen t to Cochlear on patient's behalf along with upgrade order form explaining medical necessity of replacing his device. Patient provided info on the upgrade process. Instructed him to co ntact Cochlear directly to initiate upgrade and contact [facility] before his April appt if he h as NOT received the upgrade equipment. Mr. Marquez is currently scheduled for CI milestone on 04/29/2019. If there are any questions or comments regarding the results and recommendations of this ev aluation, please do not hesitate to contact me at . Edelmira Palacios, SREEDHAR Certified Clinical Cigarette Tester [employer] Certified [facility] Department of Otolaryngology Audiology Services [address], [address] [place] [address] documented in thi s encounter Plan of Treatment +--------+ + + + + | Date | Type | Specialty | Care Team | Description | +--------+ + + + + | 04/29/ | Diagnostic | Cigarette Tester | Marce Meyer | | | 2018 | Visit | | Eve Briseno [address] | | | | | | [address] | | | | | | [place], [place] | | | | | | [address] | | +--------+ + + + + documented as of this encounter Visit Diagnoses + + | Diagnosis | + + | Sensorineural hearing loss (SNHL) of both ears - Primary | + + documented in this encounter
--- OUTSIDE RECORDS SUMMARY | ~2019-04-25 | XMS | Encounter Summary ---
Demographics + + + | Address | [address] | | | [place] [address] | + + + | Home Phone [...] Author + + + | Author | [facility] | + + + | Organization | [facility] | + + + [...] [place] | | | | | [address] | | + + + + + Care Team Providers + +------+ + | Care Post Tronic Machine Operator Name | Role | Phone [...] | | | | [place] | [address] | | | | | [address] | [place] [address] | | | | | | [phone] | | | | | | | [...] + + | 04/29/ | Diagnostic | 5Th Grade Teacher | Marce Meyer | | | 2019 | Visit | | Eve Briseno [address] | | | | | | [address] | | | | | | [place] | | | | | | [address] | | +--------+ + + + + documented as of this encounter Visit Diagnoses Not on filedocumented in this encounter"
--- OUTSIDE RECORDS SUMMARY | ~2019-04-25 | XMS | Encounter Summary ---
Demographics + + + | Address | [address] | | | [place] [address] | + + + | Home Phone [...] [place] | | | | | [address] | | + + + + + Care Team Providers + +------+ + | Care Mechanical Manufacturing Engineer Name | Role | Phone | [...] Walker | | | | | | [place] [facility] | | | | | | [facility] [address] | | | | | | [address] [place], | | | | | | [place] [address] | | | | | | [phone] | | | | | | | [...] + + | 04/29/ | Diagnostic | Occupational Therapy Teacher | Marce Meyer | | | 2019 | Visit | | Eve Briseno [address] | | | | | | [address] | | | | | | [place], [place] | | | | | | [address] | | +--------+ + + + + [...] | + + + + + | [facility] | | [place] [address] | | | [facility] | [facility] | | | + + + + + documented in this encounter Visit Diagnoses Not on filedocumented in this encounter"
--- OUTSIDE RECORDS SUMMARY | ~2019-04-25 | XMS | Encounter Summary ---
Demographics + + + | Address | [address] | | | [place] [address] | + + + | Home Phone [...] [place] | | | | | [address] | | + + + + + Care Team Providers + +------+ + | Care Computer Technician Name | Role | Phone | + +------+ + | Jaison Chávez MD | PCP | | + +------+ + Encounter Details +--------+ + + + + | Date | Type | Department | Care Team | Description | +--------+ + + + + | 04/03/ | Results | NON-[facility] EPIC | Tobias Eli, | | | 2008 | Only | Department | [address] | | | | | [place] | | | | | | [address] | | | | | | [phone] | | | | | | | [...] + + | 04/29/ | Diagnostic | Application Processor | Marce Meyer | | | 2019 | Visit | | Eve Briseno [address] [facility] | | | | | | [address] | | | | | | [place], [place] | | | | | | [address] | | +--------+ + + + + documented as of this encounter Procedures + +--------+ + + + | Procedure Name | Priori | Date/Time | Associated Diagnosis | Comments | | | ty | | | | + +--------+ + + + | CBC W/DIFF, REFLEX | Routin | 04/03/2009 | | Results for this | | | e | 9:52 PM | | procedure are in the | | | | PDT | | results section. | + +--------+ + + + | COMPLETE METABOLIC | Routin | 04/03/2009 | | Results for this | | SET | e | 9:52 PM | | procedure are in the | | (NA,K,CL,CO2,BUN,CRE | | PDT | | results section. | | AT,GLUC,CA,AST,ALT,B | | | | | | TERRY TOTAL,ALK | | | | | | PHOS,ALB,PROT TOTAL) | | | | | + +--------+ + + + | SRUTHI MUNIZ ONLY | Routin | 04/03/2009 | | Results for this | | | e | 9:41 PM | | procedure are in the | | | | PDT | | results section. | + +--------+ + + + documented in this encounter Results CBC W/DIFF, REFLEX (04/03/2009 9:52 PM PDT) + + + + + + | Component | Value | Ref Range | Performed | Pathologist | | | | | At | Signature | + + + + + + | WHITE BLOOD | 11.5 (H) | 4.3 - 11.0 X10 | [facility] | | | CELL COUNT | | 3/ul | A MEDICAL | | | | | | CENTER | | + + + + + + | HEMOGLOBIN | 10.9 (L) | 12.3 - 17.0 | [facility] | | | | | g/dL | A MEDICAL | | | | | | CENTER | | + + + + + + | RED BLOOD | 3.62 (L) | 4.7 - 6.1 X10 | [...] + + + + | MCV | 85.5 | 82 - 100 fl | [facility] | | | | | | A MEDICAL | | | | | | CENTER | | + + + + + + | MCH | 30.0 | 28.0 - 32.0 pg | [facility] [...] + + + + | PLATELET | 244 | 150 - 450 X10 3 | [...] + + + + | NEUTROPHIL | 76.7 | 40 - 80 % | [facility] | | | % | | | A MEDICAL | | | | | | CENTER | | + + + + + + | LYMPHOCYTE | 12.0 (L) | 20 - 50 % | [facility] | | | % | | | A MEDICAL | | | | | | CENTER | | + + + + + + | EOS % | 1.8 | 0 - 5 % | [facility] | | | | | | A MEDICAL | | | | | | CENTER | | + + + + + + | BASO % | 2.7 (H) | 0 - 1 % | [...] + + + | BANDS % | SUPERVISOR [employer]ING | 0 - 7 % | [facility] [...] | + + + + + | [facility] | [address] | [place] [address] | | | MEDICAL CENTER | Streets | | | + + + + + COMPLETE METABOLIC SET (NA,K,CL,CO2,BUN,CREAT,GLUC,CA,AST,ALT,BILI TOTAL,ALK PHOS,ALB,PROT TOTAL) (04/03/2009 9:52 PM PDT) + + + + + + | Component | Value | Ref Range | Performed | Pathologist | | | | | At | Signature | + + + + + + | SODIUM, | 138 | 137 - 146 MEQ/L | [facility] | | | PLASMA | | | A MEDICAL | | | (LAB) | | | CENTER | | + + + + + + | POTASSIUM, | 3.5 | 3.5 - 5.2 MEQ/L | [facility] | | | PLASMA | | | A MEDICAL | | | (LAB) | | | CENTER | | + + + + + + | CO2 | 22 | 22 - 28 MEQ/L | [facility] | | | | | | A MEDICAL | | | | | | CENTER | | + + + + + + | CHLORIDE, | 107 (H) | 98 - 106 MEQ/L | [facility] | | | PLASMA | | | A MEDICAL | | | (LAB) | | | CENTER | | + + + + + + | GLUCOSE, | 109 (H) | 70 - 105 MG/DL | [...] + + + + | BUN/CREATIN | 13 | 6 - 20 RATIO | [facility] | | | INE RATIO | | | A MEDICAL | | | | | | CENTER | | + + + + + + | CALCIUM, | 8.9 | 8.5 - 10.8 | [facility] | | | PLASMA | | MG/DL | A MEDICAL | | | (LAB) | | | CENTER | | + + + + + + | AMYLASE,CRISS | 56 | 20 - 113 U/L | [facility] | | | SMA | | | A MEDICAL | | | | | | CENTER | | + + + + + + | AST(SGOT) | 18 | 10 - 41 U/L | [facility] | | | | | | A MEDICAL | | | | | | CENTER | | + + + + + + | ALT (SGPT) | 12 | 7 - 51 U/L | [facility] [...] + + + + | TOTAL | 7.1 | 6.7 - 8.5 G/DL | [facility] | | | PROTEIN, | | | A MEDICAL | | | PLASMA | | | CENTER | | | (LAB) | | | | | + + + + + + | ALBUMIN, | 3.4 (L) | 3.5 - 5.0 G/DL | [...] + + + + + + | LACTATE | 1.2 | 0.4 - 2.2 MEQ/L | [facility] | | | | | | A MEDICAL | | | | | | CENTER | | + + + + + + | LIPASE | 28 | 5 - 57 U/L | [facility] [...] | [address] | [place] [address] | | | MEDICAL CENTER | Streets | | | + + + + + CRISTYSRUTHI ONLY (04/03/2009 9:41 PM PDT) + + + + + [...] + + + + | SPECIFIC | 1.010 | 1.005 - 1.030 | [facility] | [...] | [address] | [place] [address] | | | MEDICAL CENTER | Streets | | | + + + + + documented in this encounter Visit Diagnoses Not on filedocumented in this encounter"
--- OUTSIDE RECORDS SUMMARY | ~2019-04-25 | XMS | Encounter Summary ---
Demographics + + + | Address | [address] | | | [place] [address] | + + + | Home Phone [...] Author + + + | Author | [facility] | + + + | Organization | [facility] | + + + | Address | Unknown | + + + | Phone | Unavailable | + + + Support + + + + + | Name | Relationship | Address | Phone | + + + + + | Margarito Owusu | ECON | [address] | | | | | [place] | | | | | [address] | | + + + + + Care Team Providers + +------+ + | Care Infectious Waste Technician Name | Role | Phone | + +------+ + | Kerri Chavarria NP | PCP | | + +------+ + Encounter Details +--------+ + + + + | Date | Type | Department | Care Team | Description | +--------+ + + + + | 07/01/ | Telephone | Digestive Health | Ayana Butler W, | | | 2011 | | [place] [facility] [address] | [address] | | | | | [address] | [facility] [place] | | | | | Mailcode: [place] | [address] | | | | | for Health and | [phone] | | | | | [facility] [address] | | | | | | [facility] [place] | | | | | | [address] | | | | | | [phone] | | | +--------+ + + + [...] + + | 04/29/ | Diagnostic | Nurse Unit Manager | Marce Meyer | | | 2019 | Visit | | Eve Briseno [address] [place] [address] | | | | | | [address] | | | | | | [place] | | | | | | [address] | | +--------+ + + + + documented as of this encounter Visit Diagnoses Not on filedocumented in this encounter"
--- OUTSIDE RECORDS SUMMARY | ~2019-04-25 | XMS | Encounter Summary ---
Demographics + + + | Address | [address] | | | [place] [address] | + + + | Home Phone [...] [place] | | | | | [address] | | + + + + + Care Team Providers + +------+ + | Care Grants Analyst Name | Role | Phone | + +------+ + | Cee Triana MD | PCP | Unavailable | + +------+ + Reason for Visit + + + | Reason | Comments | + + + | Nutritional | re: appt on 07/14 | | counseling | | + + + Encounter Details +--------+ + + + + | Date | Type | Department | Care Team | Description | +--------+ + + + + | 07/16/ | Telephone | Digestive Health | Anita Sargent, | Nutritional | | 2011 | | Center at [facility] [address] | [address] | counseling (re: appt | | | | [address] | [address] | on 07/14) | | | | Mailcode: Center | [place], [place] | | | | | for Health and | [address] | | | | | [facility] [place] [address] | | | | | | [place], [place] | | | | | | [address] | | | | | | [phone] | | | +--------+ + + + [...] + + | 04/29/ | Diagnostic | Slash Trimmer | Marce Meyer | | | 2018 | Visit | | Eve Briseno [address] | | | | | | [address] | | | | | | [place] | | | | | | [address] | | +--------+ + + + + documented as of this encounter Visit Diagnoses Not on filedocumented in this encounter"
--- OUTSIDE RECORDS SUMMARY | ~2019-04-25 | XMS | Encounter Summary ---
Demographics + + + | Address | [address] | | | [place] [address] | + + + | Home Phone | | + + + | Preferred Language | Unknown | + + + | Marital Status | Single | + + + | Protestant Affiliation | BAP | + + + [...] [place] | | | | | [address] | | + + + + + Care Team Providers + +------+ + | Care Inventory Coordinator Name | Role | Phone | + +------+ + | Sergo Leigh MD | PCP | Unavailable | + +------+ + Reason for Visit + + + | Reason | Comments | + + + | Hearing loss | Sent LMN for Cable to Cochlear | + + + Encounter Details +--------+ + + + + | Date | Type | Department | Care Team | Description | +--------+ + + + + | 07/17/ | Documentati | Otolaryngology | Deepika Haroon, | Hearing loss (Sent | | 2009 | on | Cochlear Services | PhD | LMN for Cable to | | | | [address] | | Cochlear) | | | | [place] Mailcode: | | | | | | [address] Physician's | | | | | | [place], | | | | | | [place] [address] | | | | | | [phone] | | | +--------+ + + + [...] + + | 04/29/ | Diagnostic | Testboard Operator | Marce Meyer | | | 2019 | Visit | | Eve Briseno [address] [facility] | | | | | | [address] | | | | | | [place] | | | | | | [address] | | +--------+ + + + + documented as of this encounter Visit Diagnoses Not on filedocumented in this encounter"
--- OUTSIDE RECORDS SUMMARY | ~2019-04-25 | XMS | Encounter Summary ---
Demographics + + + | Address | [address] | | | [place] [address] | + + + | Home Phone [...] [place] | | | | | [address] | | + + + + + Care Team Providers + +------+ + | Care Mid Level Practitioner Name | Role | Phone | + +------+ + | Kerri Chavarria NP | PCP | | + +------+ + Encounter Details +--------+ + + + + | Date | Type | Department | Care Team | Description | +--------+ + + + + | 06/01/ | Telephone | Digestive Health | Ayana Butler W, | | | 2011 | | [place] at [facility] [address] | [address] | | | | | [address] | [facility] [place] | | | | | Mailcode: [place] | [address] | | | | | for Health and | [phone] | | | | | [facility] | | | | | | [facility] [place] | | | | | | [address] | | | | | | [phone] | | | +--------+ + + + [...] + + | 04/29/ | Diagnostic | Coal And Ash Supervisor | Marce Meyer | | | 2019 | Visit | | Eve Briseno [address] [place] [address] | | | | | | [address] | | | | | | [place] | | | | | | [address] | | +--------+ + + + + documented as of this encounter Visit Diagnoses Not on filedocumented in this encounter"
--- OUTSIDE RECORDS SUMMARY | ~2019-04-25 | XMS | Encounter Summary ---
Demographics + + + | Address | [address] | | | [place] [address] | + + + | Home Phone [...] Author + + + | Author | [facility] | + + + | Organization | [facility] | + + + | Address | Unknown | + + + | Phone | Unavailable | + + + Support + + + + + | Name | Relationship | Address | Phone | + + + + + | Margarito Owusu | ECON | [address] | | | | | [place] | | | | | [address] | | + + + + + Care Team Providers + +------+ + | Care Vial Gauger Name | Role | Phone | + [...] [facility] [phone] | [address] [facility] | | | | | [facility] [address] | [place], [place] | | | | | Mailcode: [id number] | [id number] | | | | | [facility] | | | | | | [place], [place] | | | | | | [address] | | | | | | [phone] | | | +--------+ + + + [...] + | 04/29/ | Diagnostic | Manager Site | Marce Meyer | | | 2019 | Visit | | Eve Briseno [address] | | | | | | [address] | | | | | | [place], [place] | | | | | | [phone] | | +--------+ + + + + documented as of this encounter Visit Diagnoses Not on filedocumented in this encounter"
--- OUTSIDE RECORDS SUMMARY | ~2019-04-25 | XMS | Encounter Summary ---
Demographics + + + | Address | [address] | | | [place] [address] | + + + | Home Phone [...] Author + + + | Author | [facility] | + + + | Organization | [facility] | + + + | Address | Unknown | + + + | Phone | Unavailable | + + + Support + + + + + | Name | Relationship | Address | Phone | + + + + + | Margarito Owusu | ECON | [address] | | | | [place] | | | | | [address] | | + + + + + Care Team Providers + +------+ + | Care Tipple Greaser Name | Role | Phone | + [...] [place] | | | | | | [address] | | | | | | [phone] | | | | | | | [...] + + | 04/29/ | Diagnostic | Inspector Material Disposition | Marce Meyer | | | 2019 | Visit | | Eve Briseno [address] | | | | | | [address] | | | | | | [place], [place] | | | | | | [address] | | +--------+ + + + + documented as of this encounter Procedures + +--------+ + + + | Procedure Name | Priori | Date/Time | Associated Diagnosis | Comments | | | ty | | | | + +--------+ + + + | ABDOMEN AND PELVIS | Routin | 04/04/2009 | | Results for this | | WITH [id number] | e | 12:34 AM | | procedure are in the | | | | PDT | | results section. | + +--------+ + + + documented in this encounter Results ABDOMEN AND PELVIS WITH [id number] (04/04/2009 12:34 AM PDT) + + | [...] by Dr. Diego of | | | [facility] Radiology. Bibasilar atelectasis is noted within the [...] | | suspicious for abscess/infected liquified hematoma. [id number] | | + + + + + [...] report was issued by Dr. Diego of [facility].Bibasilar atelectasis | | is noted within the [...] peritoneum, also suspicious | | forabscess/infected liquified hematoma.[id number] | |thickened along the anterior aspect, likely [...] suspicious for | |abscess/infected liquified hematoma. | |[id number] | + + + +---------+ + + [...]
--- OUTSIDE RECORDS SUMMARY | ~2019-04-25 | XMS | Encounter Summary ---
Demographics + + + | Address | [address] | | | [place] [address] | + + + | Home Phone [...] [place] | | | | | [address] | | + + + + + Care Team Providers + +------+ + | Care All Purpose Clerk Name | Role | Phone | + +------+ + | Cee Triana MD | PCP | Unavailable | + +------+ + Encounter Details +--------+ + + + + | Date | Type | Department | Care Team | Description | +--------+ + + + + | 11/12/ | Telephone | Digestive Health | Ayana Butler W, | | | 2012 | | Center at [facility] [address] | [address] | | | | | [place] | [facility] [place] | | | | | Mailcode: [place] | [address] | | | | | for Health and | [phone] | | | | | [facility], [facility] [address] | | | | | | [place], [place] | | | | | | [address] | | | | | | [phone] | | | +--------+ + + + [...] + + | 04/29/ | Diagnostic | Aluminum Pourer | Marce Meyer | | | 2019 | Visit | | Eve Briseno [address] [place] [address] | | | | | | [address] | | | | | | [place] | | | | | | [address] | | +--------+ + + + + documented as of this encounter Visit Diagnoses Not on filedocumented in this encounter"
--- OUTSIDE RECORDS SUMMARY | ~2019-04-25 | XMS | Encounter Summary ---
Demographics + + + | Address | [address] | | | [place] [address] | + + + | Home Phone [...] [place] | | | | | [address] | | + + + + + Care Team Providers + +------+ + | Care Probation Manager Name | Role | Phone | [...] | | | [address] | [facility], | | | | | Mailcode: U[facility]13 | [place] [address] | | | | | Paola Perez | | | | | | [address] [place], [place] | | | | | | [address] | | | | | | [phone] | | | +--------+ + + + [...] + + | 04/29/ | Diagnostic | National Accounts Recruiter | Marce Meyer | | | 2019 | Visit | | K, AuD [address] | | | | | | [address] | | | | | | [place], [place] | | | | | | [address] | | +--------+ + + + + [...] + + + + + + | LRO19-57% | 1.63 | 3.65 L/sec | [facility] | | | PRE | | | SPECIAL | | | | | | DIAGNOSTICS | | | | | | - | | | | | | PULMONARY | | | | | | FUNCTION | | + + + + + + | NCM68-46% | 44 | % | [facility] | | | PRE (%REF) | | | SPECIAL | | | | | | DIAGNOSTICS | | | | | | - | | | | | | PULMONARY | | | | | | FUNCTION | | + + + + + + | ZPR05-12% | 1.91 | 3.65 L/sec | [facility] | | | POST | | | SPECIAL | | | | | | DIAGNOSTICS | | | | | | - | | | | | | PULMONARY | | | | | | FUNCTION | | + + + + + + | QZO86-13% | 52 | % | [facility] | [...] + + + + | PULMONARY | [facility] | | [facility] | | | INTERPRETAT | University | | SPECIAL | | | ION | Date: | | DIAGNOSTICS | | | | 12/18/11 | | - | | | | | | PULMONARY | | | | | | FUNCTION | | | | | | | | | | Id: | | | | | | [id number] | | | | | | [place], | | | | | | [place] [...] 54 | | | | | | [id number]% | | | | | | L/sec 3.65 1.6 | | | | | | 3 | | | | | | 44 1.91 | | | | | | 52 17PEF | | | | | | L/sec 10.11 | | | | | | 5.07 | | | | | | 50 5.50 | | | | | | 54 [id number]% | | | | | | Sec [...] ECode | | | | | | [id number] | | | | | | | | | | | | [id number] | | | | | | L/min [...] CaucasianVersion: | | | | | | [id number]: | | | | | | ALMA, EDGAR | | | | | | ELLEN | | | | | | ID: | | | | | | [id number] | | | | | | | [...] | | | | | | max [id number] | | | | | | Volume LitersPE | | | | | | max [id number] | | | | | | Volume [...] significant.Version: | | | | | | [id number] | | | | | | | | | | | | Page 2Name: ALMA, | | | | | | EDGAR | | | | | | ELLEN | | | | | | ID: | | | | | | [id number] | | | | | | | [...] : | | | | | | [id number] | | | | | | | | | | | | Page 3Name: ALMA, | | | | | | EDGAR | | | | | | ELLEN | | | | | | ID: | | | | | | [id number]: | | | | | | [id number] | | | | | | | [...] | DIAGNOSTICS - | [address] | [address] | | | PULMONARY FUNCTION | | | | + + + + + documented in this encounter Visit Diagnoses + + | Diagnosis | + + | Chronic airway obstruction, not elsewhere classified | + + documented in this encounter"
--- OUTSIDE RECORDS SUMMARY | ~2019-04-25 | XMS | Encounter Summary ---
Demographics + + + | Address | [address] | | | [place] [address] | + + + | Home Phone [...] [place] | | | | | [address] | | + + + + + Care Team Providers + +------+ + | Care Warp Placer Name | Role | Phone | + [...] | | Toya Spencer Mailcode: | [place], [place] | | | | | [address] | [id number] | | | | | [place], | | | | | | [place] [address] | | | | | | [phone] | | | +--------+ + + + [...] + + | 04/29/ | Diagnostic | Vascular Surgery Physician | Marce Meyer | | | 2019 | Visit | | Eve Briseno [address] | | | | | | [address] | | | | | | [place], [place] | | | | | | [address] | | +--------+ + + + + documented as of this encounter Visit Diagnoses Not on filedocumented in this encounter"
--- OUTSIDE RECORDS SUMMARY | ~2019-04-25 | XMS | Encounter Summary ---
Demographics + + + | Address | [address] | | | [place] [address] | + + + | Home Phone [...] [place] | | | | | [address] | | + + + + + Care Team Providers + +------+ + | Care Physician Compensation Analyst Name | Role | Phone | + +------+ + | Jaison Chávez MD | PCP | | + +------+ + Encounter Details +--------+ + + + + | Date | Type | Department | Care Team | Description | +--------+ + + + + | 06/25/ | Results | NON-[facility] EPIC | Sergo Leigh | | | 2008 | Only | Department | MD Med INTERNAL | | | | | | [facility] | | | | | | [address] | | | | | | [place] [address] | | | | | | [phone] | | | | | | | [...] + + | 04/29/ | Diagnostic | Location Man | Marce Meyer | | | 2019 | Visit | | Eve Briseno [address] | | | | | | [address] | | | | | | [place], [place] | | | | | | [address] | | +--------+ + + + + documented as of this encounter Procedures + +--------+ + + + | Procedure Name | Priori | Date/Time | Associated Diagnosis | Comments | | | ty | | | | + +--------+ + + + | CBC W/DIFF, REFLEX | Routin | 06/25/2009 | | Results for this | | | e | 5:00 PM | | procedure are in the | | | | PST | | results section. | + +--------+ + + + | BASIC METABOLIC SET | Routin | 06/25/2009 | | Results for this | | (NA, K, CL, TCO2, | e | 5:00 PM | | procedure are in the | | BUN, CR, GLU, CA) | | PST | | results section. | + +--------+ + + + | HEMOGLOBIN A1C, | Routin | 06/25/2009 | | Results for this | | BLOOD | e | 5:00 PM | | procedure are in the | | | | PST | | results section. | + +--------+ + + + documented in this encounter Results CBC W/DIFF, REFLEX (06/25/2009 5:00 PM PST) + + + + + + | Component | Value | Ref Range | Performed | Pathologist | | | | | At | Signature | + + + + + + | WHITE BLOOD | 10.0 | 4.3 - 11.0 X10 | [facility] | | | CELL COUNT | | 3/ul | A MEDICAL | | | | | | CENTER | | + + + + + + | HEMOGLOBIN | 13.2 | 12.3 - 17.0 | [facility] | | | | | g/dL | A MEDICAL | | | | | | CENTER | | + + + + + + | RED BLOOD | 4.82 | 4.7 - 6.1 X10 | [facility] | | | CELL COUNT | | 6/uL | A MEDICAL | | | | | | CENTER | | + + + + + + | HEMATOCRIT | 40.1 | 40.0 - 54.0 % | [facility] | | | | | | A MEDICAL | | | | | | CENTER | | + + + + + + | MCV | 83.3 | 82 - 100 fl | [facility] | | | | | | A MEDICAL | | | | | | CENTER | | + + + + + + | MCH | 27.3 (L) | 28.0 - 32.0 pg | [facility] | | | | | | A MEDICAL | | | | | | CENTER | | + + + + + + | MCHC | 32.8 | 32 - 36 g/dL | [facility] | | | | | | A MEDICAL | | | | | | CENTER | | + + + + + + | RDW | 16.0 (H) | 12 - 15 fL | [facility] | | | | | | A MEDICAL | | | | | | CENTER | | + + + + + + | PLATELET | 172 | 150 - 450 X10 3 | [...] + + + + | NEUTROPHIL | 78.3 | 40 - 80 % | [facility] [...] + + + | EOS % | 1.6 | 0 - 5 % | [facility] [...] + + + | MONOCYTE % | 6.2 | 2 - 10 % | [facility] | | | | | | A MEDICAL | | | | | | CENTER | | + + + + + + | BANDS % | GREEN PRIZE PACKER | 0 - 7 % | [facility] [...] + + + + | SEDIMENTATI | 38 (H) | 1 - 15 MM/HR | [...] [facility] | And | [place] [address] | | | MEDICAL CENTER | Streets | | | + + + + + HEMOGLOBIN A1C, BLOOD (06/25/2009 5:00 PM PST) + +-------+ + + + | Component | Value | Ref Range | Performed | Pathologist | | | | | At | Signature | + +-------+ + + + | HEMOGLOBIN | 4.9 | % | [facility] | | | A1C | | | A MEDICAL | | | | | | CENTER | | + +-------+ + + + | ESTIMATED | 94 | MG/DL | [facility] | | | [place] | | | A MEDICAL | | | GLUCOSE | | | CENTER | | + [...] [facility] | And [address] | [place] [address] | | | MEDICAL CENTER | Streets | | | + + + + + BASIC METABOLIC SET (NA, K, CL, TCO2, BUN, CR, GLU, CA) (06/25/2009 5:00 PM PST) + + + + + [...] + + + | ANION GAP | 12.9 | 8 - 16 MEQ/L | [facility] [...] + + + + | CREATININE | 0.64 (L) | 0.9 - 1.3 MG/DL | [...] + + | CALCIUM, | 9.7 | 8.5 - 10.8 | [facility] | | | PLASMA | | MG/DL | A MEDICAL | | | (LAB) | | | CENTER | | + + + + + + | AMYLASE,CRISS | 58 | 20 - 113 U/L | [facility] [...] + + + | ALK PHOS | 103 | 40 - 180 U/L | [facility] | | | | | | A MEDICAL | | | | | | CENTER | | + + + + + + | TOTAL | 7.9 | 6.7 - 8.5 G/DL | [facility] | | | PROTEIN, | | | A MEDICAL | | | PLASMA | | | CENTER | | | (LAB) | | | | | + + + + + + | ALBUMIN, | 4.8 | 3.5 - 5.0 G/DL | [facility] [...] + + + + | BILIRUBIN | 0.0 | 0.0 - 0.3 MG/DL | [facility] | | | DIRECT | | | A MEDICAL | | | | | | CENTER | | + + + + + + | INDIRECT | 0.6 | 0.1 - 1.0 MG/DL | [facility] [...] + + + + | FASTING? | 6 HR | HR | [facility] | | [...] + + | [facility] | [address] | [place] [address] | | | MEDICAL CENTER | Streets | | | + + + + + documented in this encounter Visit Diagnoses Not on filedocumented in this encounter"
--- OUTSIDE RECORDS SUMMARY | ~2019-04-25 | XMS | Encounter Summary ---
Demographics + + + | Address | [address] | | | [place] [address] | + + + | Home Phone | | + + + | Preferred Language | Unknown | + + + | Marital Status | Single | + + + | Zoroastrian Affiliation | BAP | + + + [...] [place] | | | | | [address] | | + + + + + Care Team Providers + +------+ + | Care Funeral Home Manager Name | Role | Phone | + +------+ + | Jaison Chávez MD | PCP | | + +------+ + Encounter Details +--------+ + + + + | Date | Type | Department | Care Team | Description | +--------+ + + + + | 10/30/ | Results | NON-[facility] EPIC | Omari [...] + + | 04/29/ | Diagnostic | Wall Taper | Marce Meyer | | | 2019 | Visit | | Eve Briseno [address] | | | | | | [address] | | | | | | [place], [place] | | | | | | [address] | | +--------+ + + + + documented as of this encounter Procedures + +--------+ + + + | Procedure Name | Priori | Date/Time | Associated Diagnosis | Comments | | | ty | | | | + +--------+ + + + | CBC W/DIFF, REFLEX | Routin | 10/30/2009 | | Results for this | | | e | 11:00 AM | | procedure are in the | | | | PDT | | results section. | + +--------+ + + + | COMPLETE METABOLIC | Routin | 10/30/2009 | | Results for this | | SET | e | 11:00 AM | | procedure are in the | | (NA,K,CL,CO2,BUN,CRE | | PDT | | results section. | | AT,GLUC,CA,AST,ALT,B | | | | | | TERRY TOTAL,ALK | | | | | | PHOS,ALB,PROT TOTAL) | | | | | + +--------+ + + + | C-REACTIVE PROTEIN | Routin | 10/30/2009 | | Results for this | | | e | 11:00 AM | | procedure are in the | | | | PDT | | results section. | + +--------+ + + + documented in this encounter Results C-REACTIVE PROTEIN (10/30/2009 11:00 AM PDT) + + + + + + | Component | Value | Ref Range | Performed | Pathologist | | | | | At | Signature | + + + + + + | C-REACTIVE | 0.73Comment: Test | <0.80 mg/dL | [facility] | | | PROTEIN | performed at [facility] | | [facility] | | | | [facility]- | [facility] | | | | [address] | | | | | [address], | | | | | | [place] [address] | | | | | | : ASHLEY HORTON MD | | | | + + + + + + + + | Specimen | + + | | + + + + + + + | Performing | Address | City/State/Zipcode | Phone Number | | Organization | | | | + + + + + | [facility] | [address] | [place] [address] | [phone] | | [facility] | | | | + + + + + | [facility] | | | | | [facility] | | | | + + + + + CBC W/DIFF, REFLEX (10/30/2009 11:00 AM PDT) + + + + + [...] + + + | RED BLOOD | 4.07 (L) | 4.7 - 6.1 X10 | [facility] | | | CELL COUNT | | 6/uL | A MEDICAL | | | | | | CENTER | | + + + + + + | HEMATOCRIT | 35.1 (L) | 40.0 - 54.0 % | [facility] | | | | | | A MEDICAL | | | | | | CENTER | | + + + + + + | MCV | 86.2 | 82 - 100 fl | [facility] | | | | | | A MEDICAL | | | | | | CENTER | | + + + + + + | MCH | 30.1 | 28.0 - 32.0 pg | [facility] [...] + + + + | PLATELET | 152 | 150 - 450 X10 3 | [...] + + + + | NEUTROPHIL | 73.2 | 40 - 80 % | [facility] [...] + + + | MONOCYTE % | 8.7 | 2 - 10 % | [facility] | | | | | | A MEDICAL | | | | | | CENTER | | + + + + + + | BANDS % | BOOK JACKET COVER MACHINE OPERATOR | 0 - 7 % | [facility] | | | | | | A MEDICAL | | | | | | CENTER | | + + + + + + | SEDIMENTATI | 34 (H) | 1 - 15 MM/HR | [facility] | | | ON RATE | | [...] [facility] | [address] | [place] [address] | | | MEDICAL CENTER | Streets | | | + + + + + COMPLETE METABOLIC SET (NA,K,CL,CO2,BUN,CREAT,GLUC,CA,AST,ALT,BILI TOTAL,ALK PHOS,ALB,PROT TOTAL) (10/30/2009 11:00 AM PDT) + +--------+ + + + | Component | Value | Ref Range | Performed | Pathologist | | | | | At | Signature | + +--------+ + + + | SODIUM, | 137 | 137 - 146 MEQ/L | [facility] | | | PLASMA | | | A MEDICAL | | | (LAB) | | | CENTER | | + +--------+ + + + | POTASSIUM, | 4.0 | 3.5 - 5.2 MEQ/L | [facility] | | | PLASMA | | | A MEDICAL | | | (LAB) | | | CENTER | | + +--------+ + + + | CO2 | 28 | 22 - 28 MEQ/L | [facility] | | | | | | A MEDICAL | | | | | | CENTER | | + +--------+ + + + | CHLORIDE, | 98 | 98 - 106 MEQ/L | [facility] | | | PLASMA | | | A MEDICAL | | | (LAB) | | | CENTER | | + +--------+ + + + | GLUCOSE, | 74 | 70 - 105 MG/DL | [facility] [...] +--------+ + + + | CALCIUM, | 9.7 | 8.5 - 10.8 | [facility] | | | PLASMA | | MG/DL | A MEDICAL | | | (LAB) | | | CENTER | | + +--------+ + + + | AST(SGOT) | 28 | 10 - 41 U/L | [facility] | | | | | | A MEDICAL | | | | | | CENTER | | + +--------+ + + + | ALT (SGPT) | 36 | 7 - 51 U/L | [facility] | | | | | | A MEDICAL | | | | | | CENTER | | + +--------+ + + + | ALK PHOS | 83 | 40 - 180 U/L | [facility] | | | | | | A MEDICAL | | | | | | CENTER | | + +--------+ + + + | TOTAL | 7.1 | 6.7 - 8.5 G/DL | [facility] | | | PROTEIN, | | | A MEDICAL | | | PLASMA | | | CENTER | | | (LAB) | | | | | + +--------+ + + + | ALBUMIN, | 4.3 | 3.5 - 5.0 G/DL | [facility] | | | PLASMA | | | A MEDICAL | | | (LAB) | | | CENTER | | + +--------+ + + + | BILIRUBIN | 0.6 [...] +--------+ + + + | FASTING? | UNK [...] [facility] | [address] | [place] [address] | | | MEDICAL CENTER | Streets | | | + + + + + documented in this encounter Visit Diagnoses Not on filedocumented in this encounter"
--- OUTSIDE RECORDS SUMMARY | ~2019-04-25 | XMS | Encounter Summary ---
Demographics + + + | Address | [address] | | | [place] [address] | + + + | Home Phone [...] | Margarito Owusu | ECON | [address] | | | | | [place] | | | | | [address] | | + + + + + Care Team Providers + +------+ + | Care Program Production Specialist Name | Role | Phone | [...] as of this encounter Progress Notes Interface, Spool Salvager In - 02/23/2005 8:01 AM PDT [id number] [facility] Date: 04/24/2004 Clinic: Subjective: [...] 4 weeks. Aamir Chan M.D. TONY / [id number] / [id number] / [id number] / documented i n this encounter Plan of Treatment +--------+ + + + + | Date | Type | Specialty | Care Team | Description | +--------+ + + + + | 04/29/ | Diagnostic | Clinical Laboratory Aide | Marce Meyer | | | 2019 | Visit | | Finn, Eve [address] | | | | | | [address] | | | | | | [place] | | | | | | [address] | | +--------+ + + + + documented as of this encounter Visit Diagnoses Not on filedocumented in this encounter"
--- OUTSIDE RECORDS SUMMARY | ~2019-04-25 | XMS | Encounter Summary ---
Demographics + + + | Address | [address] | | | [place] [address] | + + + | Home Phone [...] [place] | | | | | [address] | | + + + + + Care Team Providers + +------+ + | Care Analyst Food And Beverage Name | Role | Phone | + +------+ + | Ender Wagoner MD | PCP | | + +------+ + Reason for Visit + + + | Reason | Comments | + + + | Hearing loss | Scottie | + + + Encounter Details +--------+ + + + + | Date | Type | Department | Care Team | Description | +--------+ + + + + | 06/30/ | Documentati | Otolaryngology | Pascual Pace, | Hearing loss (Scottie) | | 2010 | on | Cochlear Services | MelodieSTEPHANIE [address]ith [address] | | | | | [address] | | | | | Toya Spencer Mailcode: | [address] [place], [place] | | | | | [address] Physician's | [address] | | | | | [place], | | | | | | [place] [address] | | | | | | [phone] | | | +--------+ + + + [...] + | 04/29/ | Diagnostic | Fish Packer | Marce Meyer | | | 2019 | Visit | | Eve Briseno [address] | | | | | | [address] | | | | | | [place], [place] | | | | | | [address] | | +--------+ + + + + documented as of this encounter Visit Diagnoses Not on filedocumented in this encounter"
--- OUTSIDE RECORDS SUMMARY | ~2019-04-25 | XMS | Encounter Summary ---
Demographics + + + | Address | [address] | | | [place] [address] | + + + | Home Phone [...] Author + + + | Author | [facility] | + + + | Organization | [facility] | + + [...] [place] | | | | | [address] | | + + + + + Care Team Providers + +------+ + | Care Research Engineer Name | Role | Phone | [...] Closed | | Radiology | Diagnoses | Joan, | Rad Ct Scan | | | | | Otitis | MD Jose | s [address] | | | | | externa | [address] | | | | | Procedures | Amelia | Toya Spencer | | | | | [address] | [address] | Mailcode: | | | | | BENIGN | [place], [place] | [address] [facility] | | | | | DISEASE [place] | [address] | Hospital | | | | | | Phone: | [place], [place] | | | | | | [phone] | [address] | | | | | | Fax: | Phone: | | | | | | | [phone] | | | | | | | Fax: | | | | | | | [phone] | +--------+--------+ + + + + Reason for Visit + + + | Reason | Comments | + + + | Ear problem | CI pt here for ear eval | + + + Consult to [place] (Routine) +--------+--------+ + + + + | Status | Reason | Specialty | Diagnoses / | Referred By | Referred To | | | | | Procedures | Contact | Contact | +--------+--------+ + + + + | Closed | | Technical Support Professional | Diagnoses | Reese, | Joan, | | | | | Neural | Sergo Jovel, | MD Asim Garcia | | | | | hearing | INTERNAL | [address] | | | | | loss, | MEDICINE | [address] | | | | | bilateral | ASSOC[facility]ATES | [place], [place] | | | | | | [address] | [address] Phone: | | | | | | [facility] | [phone] | | | | | | [place] | Fax: | | | | | | [address] | | | | | | | Phone: | | | | | | | [phone] | | | | | | | Fax: | | | | | | | [phone] | | +--------+--------+ + + + + Encounter Details +--------+---------+ + + + | Date | Type | Department | Care Team | Description | +--------+---------+ + + + | 11/19/ | Office | Otolaryngology | Jose Franco, | Otitis externa | | 2010 | Visit | Otology Services at | [address] | (Primary Dx); Neural | | | | [facility] [address] | [address] New | hearing loss, | | | | [address] | [place] [address] | bilateral | | | | Mailcode: CHALO | [phone] | | | | | Priya Perez | (Fax) | | | | | [place], [place] | | | | | | [address] | | | | | | [phone] | | | +--------+---------+ + + + [...] encounter Progress Notes Jose Franco MD - 11/19/2010 3:39 PM Chapis Marquez is a 45-year-old male here for r ecurrent infection on his RT ear. He has bilateral profound SNHL. He wears left CI and sta doroteo both ears are draining. He is having pain. He has had a hx of surgery on the RT ear. He has not had a CT scan recently that he can recall. Reviews of systems, medications, past surgeries have all been documented on the attached hi anned document. See attached scanned clinic doc. Sheet and otology patient questionnaire that contains med' s, allergies, H&P, PSH, FMHX, SOCHX. I have reviewed and/or created all of these documents. Referring MD notes thoroughly reviewed. GENERAL: Alert & oriented times 3. Well developed, well nourished, no apparent distress. decreased ability to communicate. Vitals are reviewed and discussed with the pt. Non agita gunner or depressed EYES: Equal round reactive to light and accommodation. Extraocular motions intact. No ny stagmus HEAD/FACE: Skin - No lesions, no masses, no sinus tenderness. Salivary glands - No heather s. No facial weakness. Non-syndromic. NECK: No nodes or masses. Thyroid normal. RESPIRATORY: Respiration even, chest symmetrical with bilateral expansion.No stridor CV: extermeties appear warm and well perfused. No jugular venous distension, no cyanosis Skin: turgor wnl, no worrisome cutaneous lesions NEUROLOGICAL: Cranial nerves II-XII intact bilaterally except see audio for CN VIII. Normal gait. CB testing normal. No depression or agitation. NASAL: Mucosa normal, no masses. ORAL CAVITY OROPHARYNX: Normal mucosa, no masses or lesions. FACIAL STRENGTH: Right HB I Left HB I EARS: The high power operating microscope was used to examine both ears. Right ear: Near total tympanic membrane perf with hypertrophic middle ear mucosa. No visi ble middle ear space, no visible ossicular chain with mucopurulent debris evident everywhere . Left ear: Thickened featureless drum, appears intact. Mucopurulent debris in outer ear, s uspicious of a perforation, but I can't see one. AUDIOGRAM: Review shows to be within normal limits. Findings discussed with patient. A/P: Bilateral otitis externa. . Culture was taken right and left. Otic Drops for [address] scan on same day and RTC. Prescription for Cyloxin ophthalmic And Decadon ophthalm ic. Par Note transcribed by ELEANOR runa Edwards - 11/19/2010 3:05 PM PDTAdditional staff support provided to the patient during this encounte r included: Health maintenance reviewed and documented. documented in this enc ounter Plan of Treatment +--------+ + + + + | Date | Type | Specialty | Care Team | Description | +--------+ + + + + | 04/29/ | Diagnostic | Technical Support Professional | Marce Meyer | | | 2019 | Visit | | Eve Briseno [address] | | | | | | [address] | | | | | | [place], [place] | | | | | | [address] | | +--------+ + + + + documented as of this encounter Procedures + +--------+ + + + | Procedure Name | Priori | Date/Time | Associated Diagnosis | Comments | | | ty | | | | + +--------+ + + + | FUNGUS PRELIMINARY 1 | Routin | 11/19/2010 | | Results for this | | | e | 4:01 PM | | procedure are in the | | | | PDT | | results section. | + +--------+ + + + | FUNGUS PRELIMINARY 1 | Routin | 11/19/2010 | | Results for this | | | e | 4:01 PM | | procedure are in the | | | | PDT | | results section. | + +--------+ + + + | FUNGAL SMEAR ONLY | Routin | 11/19/2010 | | Results for this | | | e | 4:01 PM | | procedure are in the | | | | PDT | | results section. | + +--------+ + + + | FUNGAL SMEAR ONLY | Routin | 11/19/2010 | | Results for this | | | e | 4:01 PM | | procedure are in the | | | | PDT | | results section. | + +--------+ + + + | CULTURE, FUNGAL & | Routin | 11/19/2010 | Otitis externa | Results for this | | SMEAR | e | 4:01 PM | | procedure are in the | | | | PDT | | results section. | + +--------+ + + + | CULTURE, FUNGAL & | Routin | 11/19/2010 | Otitis externa | Results for this | | SMEAR | e | 4:01 PM | | procedure are in the | | | | PDT | | results section. | + +--------+ + + + | CULTURE, EAR BACTI | Routin | 11/19/2010 | Otitis externa | Results for this | | | e | 4:01 PM | | procedure are in the | | | | PDT | | results section. | + +--------+ + + + | CULTURE, EAR BACTI | Routin | 11/19/2010 | Otitis externa | Results for this | | | e | 4:00 PM | | procedure are in the | | | | PDT | | results section. | + +--------+ + + + documented in this encounter Results CT TEMPBON BENIGN DISEASE WO (12/03/2010 1:32 PM PDT) + + + + + + | Component | Value | Ref Range | Performed | Pathologist | | | | | At | Signature | + + + + + + | CT TEMPBON | Axial images were | | | | | BENIGN | obtained through the | | | | | DISEASE WO | temporal bones and | | | | | | coronalreconstructions | | | | | | were created and | | | | | | compared to the CT | | | | | | [id number]/05/02. Since | | | | | | the prior study, the | | | | | | patient has undergone a | | | | | | left canal wall | | | | | | upmastoidectomy and | | | | | | placement of a cochlear | | | | | | implant. The | | | | | | electrodecoils in the | | | | | | mastoidectomy bowl and | | | | | | extends to a | | | | | | cochleostomy in thebasal | | | | | | turn of the cochlea | | | | | | almost to the apical | | | | | | turn. The mastoid | | | | | | aircells and middle ear | | | | | | are opacified in the | | | | | | external auditory canal | | | | | | islined by edematous | | | | | | appearing soft | | | | | | tissue. Without a | | | | | | prior studyobtained | | | | | | after placement of a | | | | | | cochlear implant, it is | | | | | | not possible todetermine | | | | | | if there is bone | | | | | | erosion, and artifact | | | | | | from the cochlearimplant | | | | | | limits evaluation of | | | | | | the tegmen tympani.. The | | | | | | patient is status post | | | | | | right mastoidectomy, | | | | | | likely canal wall up. | | | | | | The middle ear is | | | | | | opacified to the | | | | | | ossicles are grossly | | | | | | intact.Soft tissue lines | | | | | | the mastoidectomy | | | | | | bowl. The appearance | | | | | | is similarto that of the | | | | | | prior study. The | | | | | | patient is status post | | | | | | bilateral uncinectomy | | | | | | and | | | | | | internalethmoidectomy | | | | | | and sphenoid ostiotomy | | | | | | and partial middle | | | | | | turbinateresection. T | | | | | | he paranasal sinuses are | | | | | | incompletely evaluated | | | | | | here. Impression: | | | | | | Interval mastoidectomy | | | | | | and cochleostomy on the | | | | | | left forplacement of a | | | | | | cochlear | | | | | | implant. Opacificatio | | | | | | n of the | | | | | | leftmastoidectomy bowl, | | | | | | mastoid air cells, and | | | | | | middle | | | | | | ear. Probableexternal | | | | | | auditory canal | | | | | | inflammation. Attending | | | | | | Radiologists: Carin Zarate | | | | | | Adelaida MedleyAuthor: | | | | | | Carin Medley M.D. I | | | | | | have personally viewed | | | | | | this procedure/exam, | | | | | | reviewed this report,and | | | | | | made changes to it | | | | | | where appropriate. | | | | | | Final/Electronically | | | | | | signed / Carin Zarate | | | | | | Galindo 12/03/2010 | | | | | | 14:21 PM | | | | + + + + + + + + | Specimen | + + | | + + + +---------+ + + | Performing | Address | City/State/Zipcode | Phone Number | | Organization | | | | + +---------+ + + | [facility] DEPARTMENT OF | | | | | RADIOLOGY | | | | + +---------+ + + FUNGAL SMEAR ONLY (11/19/2010 4:01 PM PDT) + + + + + + | Component | Value | Ref Range | Performed | Pathologist | | | | | At | Signature | + + + + + + | SOURCE BODY | Left Ear | | [facility] | | | SITE | | | REGIONAL | | | | | | LAB-MICRO | | + + + + + + | CALCOFLUOR | Culture received, Smear | | [facility] | | | WHITE STAIN | NOT indicated by source. | | REGIONAL | | | ONLY | | | LAB-MICRO | | + + + + + + + + | Specimen | + + | | + + + + + + + | Performing | Address | City/State/Zipcode | Phone Number | | Organization | | | | + + + + + | [facility] | [address] | [place] [address] | | | LAB-MICRO | | | | + + + + + FUNGUS PRELIMINARY 1 (11/19/2010 4:01 PM PDT) + + + + + + | Component | Value | Ref Range | Performed | Pathologist | | | | | At | Signature | + + + + + + | PRELIM | Fungus NOT detected at 1 | | [facility] | | | FUNGAL ISOL | week. | | REGIONAL | | | | | | LAB-MICRO | | + + + + + + + + | Specimen | + + | | + + + + + + + | Performing | Address | City/State/Zipcode | Phone Number | | Organization | | | | + + + + + | [facility] | [address] | [place] [address] | | | LAB-MICRO | | | | + + + + + FUNGUS PRELIMINARY 1 (11/19/2010 4:01 PM PDT) + + + + + + | Component | Value | Ref Range | Performed | Pathologist | | | | | At | Signature | + + + + + + | PRELIM | Fungus NOT detected at 1 | | [facility] | | | FUNGAL ISOL | week. | | REGIONAL | | | | | | LAB-MICRO | | + + + + + + + + | Specimen | + + | | + + + + + + + | Performing | Address | City/State/Zipcode | Phone Number | | Organization | | | | + + + + + | [facility] | [address] | [place] [address] | | | LAB-MICRO | | | | + + + + + FUNGAL SMEAR ONLY (11/19/2010 4:01 PM PDT) + + + + + + | Component | Value | Ref Range | Performed | Pathologist | | | | | At | Signature | + + + + + + | SOURCE BODY | Right Ear | | [facility] | | | SITE | | | REGIONAL | | | | | | LAB-MICRO | | + + + + + + | CALCOFLUOR | Culture received, Smear | | [facility] | | | WHITE STAIN | NOT indicated by source. | | REGIONAL | | | ONLY | | | LAB-MICRO | | + + + + + + + + | Specimen | + + | | + + + + + + + | Performing | Address | City/State/Zipcode | Phone Number | | Organization | | | | + + + + + | [facility] | [address] | [place] [address] | | | LAB-MICRO | | | | + + + + + CULTURE, FUNGAL & SMEAR (11/19/2010 4:01 PM PDT) + + + + + + | Component | Value | Ref Range | Performed | Pathologist | | | | | At | Signature | + + + + + + | SOURCE BODY | Left Ear | | [facility] | | | SITE | | | REGIONAL | | | | | | LAB-MICRO | | + + + + + + | CULTURE | Fungus Culture | | [facility] | | | RESULT | Culture | | REGIONAL | | | | Source ....: Left | | LAB-MICRO | | | | Ear | | | | | | Smear..............: | | | | | | Culture received, Smear | | | | | | NOT indicated by | | | | | | | | | | | | | | | | | | source. | | | | | | Preliminary | | | | | | 1......: Fungus NOT | | | | | | detected at 1 week. | | | | | | RLB Final Report: Fungus | | | | | | NOT isolated after 3 | | | | | | weeks. [facility] | | | | | | ([facility]) | | | | | | [facility] | | | | | | [address] | | | | | | [address] | | | [address] | | | | | | [place], | | | | | | [place] [address] | | | | + + + + + + + + | Specimen | + + | Ear - Ear | + + + + + + + | Performing | Address | City/State/Zipcode | Phone Number | | Organization | | | | + + + + + | [facility] | [address] | [place] [address] | | | LAB-MICRO | | | | + + + + + CULTURE, EAR BACTI (11/19/2010 4:01 PM PDT) + + + + + + | Component | Value | Ref Range | Performed | Pathologist | | | | | At | Signature | + + + + + + | SOURCE BODY | Left Ear sensivities | | [facility] | | | SITE | | | REGIONAL | | | | | | LAB-MICRO | | + + + + + + | CULTURE | Ear Culture | | [facility] | | | RESULT | | | REGIONAL | | | | Source...............: | | LAB-MICRO | | | | Left Ear sensivities | | | | | | Culture: | | | | | | 2+ Pseudo | | | | | | monas | | | | | | aeruginosa | | | | | | | | | | | | Final ID | | | | | | Dimock Type | | | | | | 1 | | | | | | 2+ Gram | | | | | | negative | | | | | | bacilli | | | | | | | | | | | | Final | | | | | | ID | | | | | | Achromobacte | | | | | | r species | | | | | | Presumptive | | | | | | Identification | | | | | | 2+ Pseudo | | | | | | monas | | | | | | aeruginosa | | | | | | | | | | | | Final ID | | | | | | Dimock Type | | | | | | 2 1+ | | | | | | Enteric-like gram | | | | | | negative | | | | | | yomi | | | | | | | | | | | | Final ID | | | | | | 2+ Skin | | | | | | seb. | | | | | | | | | | | | | | | | | | Final ID | | | | | | | | | | | | Ps | | | | | | aerugin GNB | | | | | | Ps aerugin | | | | | | Cefepime | | | | | | | | | | | | S | | | | | | I S | | | | | | Ceftazidime | | | | | | S | | | | | | | | | | | | S S | | | | | | Ceftriaxone | | | | | | R | | | | | | | | | | | | R R | | | | | | Ciprofloxacin | | | | | | R | | | | | | I | | | | | | R | | | | | | Pip/Tazo | | | | | | | | | | | | S | | | | | | S S | | | | | | Gentamicin | | | | | | | | | | | | S | | | | | | R S | | | | | | Tobramycin | | | | | | | | | | | | S | | | | | | R S | | | | | | Trimeth/Sulfa | | | | | | R | | | | | | S | | | | | | R | | | | | | Meropenem | | | | | | S | | | | | | | | | | | | S S | | | | | | Amikacin | | | | | | | | | | | | S | | | | | | R S | | | | | | Imipenem | | | | | | | | | | | | R | | | | | | S S | | | | | | Final Report | | | | + + + + + + + + | Specimen | + + | Ear - Ear | + + + + + + + | Performing | Address | City/State/Zipcode | Phone Number | | Organization | | | | + + + + + | [facility] | [address] | [place] [address] | | | LAB-MICRO | | | | + + + + + CULTURE, FUNGAL & SMEAR (11/19/2010 4:01 PM PDT) + + + + + + | Component | Value | Ref Range | Performed | Pathologist | | | | | At | Signature | + + + + + + | SOURCE BODY | Right Ear | | [facility] | | | SITE | | | REGIONAL | | | | | | LAB-MICRO | | + + + + + + | CULTURE | Fungus Culture | | [facility] | | | RESULT | Culture | | REGIONAL | | | | Source ....: Right | | LAB-MICRO | | | | Ear | | | | | | Smear..............: | | | | | | Culture received, Smear | | | | | | NOT indicated by | | | | | | | | | | | | | | | | | | source. | | | | | | Preliminary | | | | | | 1......: Fungus NOT | | | | | | detected at 1 week. | | | | | | RLB Final Report: | | | | | | Fungus NOT isolated | | | | | | after 3 weeks. | | | | | | [facility] ([facility] [address] | | | | | [facility]) | | | | | | [facility] | | | | | | [address] | | | | | | [address] [place] | | | | | [address] | | | | | | [place], | | | | | | [place] [address] | | | | + + + + + + + + | Specimen | + + | Ear - Ear | + + + + + + + | Performing | Address | City/State/Zipcode | Phone Number | | Organization | | | | + + + + + | [facility] | [address] | [place] [address] | | | LAB-MICRO | | | | + + + + + CULTURE, EAR BACTI (11/19/2010 4:00 PM PDT) + + + + + + | Component | Value | Ref Range | Performed | Pathologist | | | | | At | Signature | + + + + + + | SOURCE BODY | Right Ear Sensitivities | | [facility] | | | SITE | | | REGIONAL | | | | | | LAB-MICRO | | + + + + + + | CULTURE | Ear Culture | | [facility] | | | RESULT | | | REGIONAL | | | | Source...............: | | LAB-MICRO | | | | Right Ear Sensitivities | | | | | | Culture: | | | | | | 3+ Gram | | | | | | negative | | | | | | bacilli | | | | | | | | | | | | Final | | | | | | ID 3 Dimock | | | | | | Types 1+ | | | | | | Pseudomonas | | | | | | aeruginosa | | | | | | | | | | | | Fi | | | | | | nal ID | | | | | | | | | | | | Ps | | | | | | aerugin | | | | | | Cefepime | | | | | | S | | | | | | Ceftazidime | | | | | | S | | | | | | Ciprofloxacin | | | | | | R | | | | | | Pip/Tazo | | | | | | S | | | | | | Gentamicin | | | | | | S | | | | | | Tobramycin | | | | | | S | | | | | | Trimeth/Sulfa | | | | | | R | | | | | | Meropenem | | | | | | R | | | | | | Imipenem | | | | | | R Final | | | | | | Report Please contact | | | | | | the microbiology | | | | | | laboratory if further | | | | | | work up of this culture | | | | | | is needed. | | | | + + + + + + + + | Specimen | + + | Ear - Ear | + + + + + + + | Performing | Address | City/State/Zipcode | Phone Number | | Organization | | | | + + + + + | [facility] | [address] | [place] [address] | | | LAB-MICRO | | | | + + + + + documented in this encounter Visit Diagnoses + + | Diagnosis | + + | Otitis externa - Primary Infective otitis externa, unspecified | + + | Neural hearing loss, bilateral | + + documented in this encounter"
--- OUTSIDE RECORDS SUMMARY | ~2019-04-25 | XMS | Encounter Summary ---
Demographics + + + | Address | [address] | | | [place] [address] | + + + | Home Phone [...] [place] | | | | | [address] | | + + + + + Care Team Providers + +------+ + | Care Breakdown Worker Name | Role | Phone | + +------+ + | Jaison Chávez MD | PCP | | + +------+ + Reason for Visit +--------+ + | Reason | Comments | +--------+ + | Other | Pls call back: is wondering if should start taking the | | | prescriptions now or after surgery: clindamycin 300mg | +--------+ + Encounter Details +--------+ + + + + | Date | Type | Department | Care Team | Description | +--------+ + + + + | 12/15/ | Telephone | Otolaryngology | Willie Plunkett, | Other (Pls call | | 2013 | | Otology Services at | MD | back: is wondering | | | | [facility] [address] | | if should start | | | | [address] | | taking the | | | | Mailcode: PV01 | | prescriptions now or | | | | [facility] | | after surgery: | | | | [place], [place] | | clindamycin 300mg) | | | | [address] | | | | | | [phone] | | | +--------+ + + + [...] | 04/29/ | Diagnostic | Occupational Therapy Program Director | Marce Meyer | | | 2019 | Visit | | Eve Briseno [address] [facility] | | | | | | [address] | | | | | | [place] | | | | | | [address] | | +--------+ + + + + documented as of this encounter Visit Diagnoses Not on filedocumented in this encounter"
--- OUTSIDE RECORDS SUMMARY | ~2019-04-25 | XMS | Encounter Summary ---
Demographics + + + | Address | [address] | | | [place] [address] | + + + | Home Phone | | + + + | Preferred Language | Unknown | + + + | Marital Status | Single | + + + | Anabaptist Affiliation | BAP | + + + | Race | White | + + + | Ethnic Group | Not or | + + + Author + + + | Author | [facility] | + + + | Organization | [facility] | + + + | Address | Unknown | + + + | Phone | Unavailable | + + + Support + + + + + | Name | Relationship | Address | Phone | + + + + + | Margarito Owusu | ECON | [address] | | | | | [place] | | | | | [address] | | + + + + + Care Team Providers + +------+ + | Care Gericare Aide Teacher Name | Role | Phone | + +------+ + | Maurice Zelaya MD | PCP | | + +------+ + Encounter Details +--------+ + + + + | Date | Type | Department | Care Team | Description | +--------+ + + + + | 12/15/ | ED Progress | [facility] [address] | Mahnaz Maloney, | ED Progress Note | | 2008 | | [address] | [address] | | | | Note-Transc | [place] | [place] | | | | [place] | [address] | [address] | | | | | | [phone] | | | | | | | [...] + | 04/29/ | Diagnostic | Sample Tailor | Marce Meyer | | | 2019 | Visit | | Eve Briseno [address] [facility] | | | | | | [address] | | | | | | [place] | | | | | | [address] | | +--------+ + + + + documented as of this encounter Visit Diagnoses Not on filedocumented in this encounter"
--- OUTSIDE RECORDS SUMMARY | ~2019-04-25 | XMS | Encounter Summary ---
Demographics + + + | Address | [address] | | | [place] [address] | + + + | Home Phone [...] [place] | | | | | [address] | | + + + + + Care Team Providers + +------+ + | Care Hr Coordinator Name | Role | Phone | [...] | | | | | | Rd [place], | | | | | | | [place] | | | | | | | [address] | +--------+--------+ + + + + Encounter Details +--------+---------+ + + + | Date | Type | Department | Care Team | Description | +--------+---------+ + + + | 12/16/ | Office | Otolaryngology | Willie Plunkett, | Bipolar affective | | 2011 | Visit | Otology Services at | | disorder ([facility]); | | | | [facility] [address] | | Cochlear implant in | | | | [address] | | place; Otitis | | | | Mailcode: PV01 | | externa | | | | [facility] | | | | | | [place], [place] | | | | | | [address] | | | | | | [phone] | | | +--------+---------+ + + + [...] 12/17/2011 11:27 AM PDTThank you for choosing [facility] Department of Otolaryngology for your health care needs. If you need to speak to an EN T physician after normal business hours, please call [phone] and ask to have the ENT ph ysician asset protection detective rojeliod. MyChart is a great way to [...] he left clinic prior. Willie Plunkett MD [facility] Twister Otology, Neurotology & Skull Base Surgery documented in this en counter Plan of Treatment +--------+ + + + + | Date | Type | Specialty | Care Team | Description | +--------+ + + + + | 04/29/ | Diagnostic | Breaking Machine Operator | Marce Meyer | | | 2019 | Visit | | Finn, Eve [address] [facility] | | | | | | [address] | | | | | | [place], [place] | | | | | | [address] | | +--------+ + + + + [...]
--- OUTSIDE RECORDS SUMMARY | ~2019-04-25 | XMS | Encounter Summary ---
Demographics + + + | Address | [address] | | | [place] [address] | + + + | Home Phone [...] [place] | | | | | [address] | | + + + + + Care Team Providers + +------+ + | Care Movie Critic Name | Role | Phone | + [...] + + + | Closed | | Director On Air | Diagnoses | Angelo Card Ent | | | | | Neural | Deidre A, | Cochlear Ppv | | | | | hearing | MD | [address] | | | | | loss, | [place] | [facility] | | | | | bilateral | INTERNAL | Rd Mailcode: | | | | | | MEDICINE | [address] | | | | | | [address] | Physician's | | | | | | [address] | Pavilion | | | | | | [address] | [place], [place] | | | | | | [place], | [address] | | | | | | [place] [address] | Phone: | | | | | | Phone: | [phone] | | | | | | [phone] | Fax: | | | | | | Fax: | [phone] | | | | | | [phone] | | +--------+--------+ + + + + Encounter Details +--------+---------+ + + + | Date | Type | Department | Care Team | Description | +--------+---------+ + + + | 06/16/ | Office | Otolaryngology | Pascual Pace, | Neural Hearing Loss, | | 2008 | Visit | Cochlear Services | Melodie [facility] [address] | Bilateral (Primary | | | | [address] | [address] | Dx) | | | | Toya Spencer Mailcode: | [place], [place] | | | | | [address] Physician's | [id number] | | | | | [place], | | | | | | [place] [address] | | | | | | [phone] | | | +--------+---------+ + + + [...] encounter Progress Notes Melodie Mayfield, CCC-A - 06/16/2008 4:07 PM Paty Harshal Marquez is a 42 year-old ma le who was seen today for follow up of his Zcincs8S/Sprint exchange. Mr. Marquez said that the device had been working well, but that he feels sound is either too loud or too high pit ch. He arrived today with his processor on P4, S10, V2 settings. The patient's Sprint processor was connected to the computer for programming. T and C leve ls were measured individually in a 37 PW map and were then adjusted globally using live voic e until the patient reported speech to be comfortable. E4 and E3 were removed to reduce hig h frequency perception. The following settings were entered into Mr. Marquez's device. P1 = Map 9 (reconfigured T and C levels, everyday setting) P2 = Map 10 (E4 added) P3 = Map 11 (E3 added) P4 = Map 12 (decreased overall C's by 5 cu's) Fawn from Cochle[employer] was contacted and a 4x magnet and 80cm cord was ordered for the patient as his current 60 cm was too short. His unopened 45 cm cord will be exhanged (order #[id number]). I also inquired about the batteries and power pack that Mr. Marquez did not receive an d Fawn reported were not ordered. She will check into this and send all equipment to the [facility]'s home address. It was recommended that Mr. Marquez return in 3 months for his next CI follow-up appointmen janet Herbert M.A., CCC-A Clinical & Rehabilitative Director On Air [facility] Cochlear Implant Program Departement of Otolaryngology/Head & Neck Surgery documented in t his encounter Plan of Treatment +--------+ + + + + | Date | Type | Specialty | Care Team | Description | +--------+ + + + + | 04/29/ | Diagnostic | Director On Air | Marce Meyer | | | 2019 | Visit | | Eve Briseno [address] | | | | | | [address] | | | | | | [place], [place] | | | | | | [address] | | +--------+ + + + + documented as of this encounter Visit Diagnoses + + | Diagnosis | + + | Neural hearing loss, bilateral - Primary | + + documented in this encounter"
--- OUTSIDE RECORDS SUMMARY | ~2019-04-25 | XMS | Encounter Summary ---
Demographics + + + | Address | [address] | | | [place] [address] | + + + | Home Phone [...] [place] | | | | | [address] | | + + + + + Care Team Providers + +------+ + | Care Lamination Builder Name | Role | Phone | + +------+ + | Maurice Zelaya MD | PCP | | + +------+ + Encounter Details +--------+ + + + + | Date | Type | Department | Care Team | Description | +--------+ + + + + | 03/26/ | Ancillary | Registration [address] | | | | 2004 | Registratio | [address] | | | | | n | Tj Mailcode: [id number] | | | | | | [place], [place] | | | | | | [address] | | | | | | [phone] | | | +--------+ + + + [...] + + | 04/29/ | Diagnostic | Bankruptcy Law Specialist | Marce Meyer | | | 2018 | Visit | | Finn, Eve [address] | | | | | | [address] | | | | | | [place], [place] | | | | | | [address] | | +--------+ + + + + documented as of this encounter Visit Diagnoses Not on filedocumented in this encounter"
--- OUTSIDE RECORDS SUMMARY | ~2019-04-25 | XMS | Encounter Summary ---
Demographics + + + | Address | [address] | | | [place] [address] | + + + | Home Phone | | + + + | Preferred Language | Unknown | + + + | Marital Status | Single | + + + | Taoism Affiliation | BAP | + + + [...] [place] | | | | | [address] | | + + + + + Care Team Providers + +------+ + | Care Heavy Equipment Sales Associate Name | Role | Phone | [...] Chris | | | | | | [place], [place] | | | | | | [address] | | | | | | [phone] | | | +--------+---------+ + + + [...] 03/23/2013 3:09 PM PDTThank you for choosing [facility] Department of Otolaryngology for your health care needs. If you need to speak to an EN T physician after normal business hours, please call [phone] and ask to have the ENT ph ysician acute care occupational therapist paged. Corinezackyaya is a great way to contact me if you have questions in between visits. If you are n ot already signed up for Augment[employer] there is information at the end of [...] assessment and plan . Willie Plunkett MD Group Insurance Special Agent Otology, Neurotology & Skull Base Surgery ustavo Vicente MD - 03/23/2013 3:16 PM PDTUN[facility] OTORHINOLARYNGOLOGY OTOLOGY CLINIC NOTE Date: 03/23/2013 HPI: [...] + + | 04/29/ | Diagnostic | Solutions Engineer | Marce Meyer | | | 2018 | Visit | | Finn, Eve [address] | | | | | | [address] | | | | | | [place], [place] | | | | | | [address] | | +--------+ + + + + documented as of this encounter Visit Diagnoses + + | Diagnosis | + + | Cholesteatoma - Primary Cholesteatoma, unspecified | + + documented in this encounter"
--- OUTSIDE RECORDS SUMMARY | ~2019-04-25 | XMS | Encounter Summary ---
Demographics + + + | Address | [address] | | | [place] [address] | + + + | Home Phone [...] [place] | | | | | [address] | | + + + + + Care Team Providers + +------+ + | Care Training Consultant Name | Role | Phone | + [...] as of this encounter Progress Notes Interface, Fabric Separator Operator In - 02/23/2005 8:01 AM PDT [id number] [facility] Date: 04/24/2004 Clinic: Otolaryngology Mr. Marquez is seen in followup. He is postop left trochlear implant. He has healed well, his incision is well, his ear looks normal. He is to be scheduled for programing in about 4 to 5 weeks. Aamir Chan M.D. TONY / MALORIE [id number] / [id number] / [id number] / documented i n this encounter Plan of Treatment +--------+ + + + + | Date | Type | Specialty | Care Team | Description | +--------+ + + + + | 04/29/ | Diagnostic | Forms Analysis Manager | Marce Meyer | | | 2019 | Visit | | Eve Briseno [address] | | | | | | [address] | | | | | | [place] | | | | | | [address] | | +--------+ + + + + documented as of this encounter Visit Diagnoses Not on filedocumented in this encounter"
--- OUTSIDE RECORDS SUMMARY | ~2019-04-25 | XMS | Encounter Summary ---
Demographics + + + | Address | [address] | | | [place] [address] | + + + | Home Phone [...] [place] | | | | | [address] | | + + + + + Care Team Providers + +------+ + | Care Fishing Rod Marker Name | Role | Phone | + +------+ + PCP | Unavailable | + +------+ + Encounter Details +--------+ + + + + | Date | Type | Department | Care Team | Description | +--------+ + + + + | 04/02/ | Office | [facility] OT[facility]ARYNGOLOGY | Clinic, | Progress Note | | 2004 | Visit-Trans | | Otolaryngology | | [...] of this encounter Progress Notes Interface, Supervisor [employer] In - 04/08/2005 5:05 AM PDT [id number] [facility] Date: 04/02/2005 Clinic: Otolaryngology AUDIOLOGY REPORT Subjective: Edgar was seen today for followup programming evaluation with his nucleus 24 cochlear implant system. He comes in today complaining that sound system got muffled, and that he is difficulty using his speaker phone. I did give him some counseling on how best to use the phone in light of the difficulty he is having. This includes using clarification strategy such as repeating the words back. Objective: Edgar's threshold levels were evaluated using psychophysical stimulation. His comfort levels were evaluated using live voice. We reached a level where sounds were comfortable to him, and he said that the speech is clear. He was then evaluated in sound field using an open set sentence identification test. This was done in both quiet and in noise. In quiet, Edgar received score of 54% and in the presence of background for a speaker babble at a plus 10 signal to noise ratio. He received a score of 61%. He was then administered to CNC monosyllabic word list. Here, he received a word correct score of 42% and a phoneme correct score of 62%. Analysis: These results show excellent benefit from his cochlear implant system. This is based on his preimplant evaluation where on one list of 53 words, Edgar was able to identify 7 words or 13%, and on a second list, he could identify no words. Edgar is extremely pleased with the benefits he is getting. Plan: Since Edgar was so far away, we have decided that he would return to clinic on an as needed basis. Haroon Poe Ed.D. / MALORIE [id number] / [id number] / [id number] / Electronically signed by Haroon Poe 04-07-2005 11:54:26 AM documented i n this encounter Plan of Treatment +--------+ + + + + | Date | Type | Specialty | Care Team | Description | +--------+ + + + + | 04/29/ | Diagnostic | Chip Mucker | aMrce Meyer | | | 2019 | Visit | | Eve Briseno [address] | | | | | | [address] | | | | | | [place], [place] | | | | | | [address] | | +--------+ + + + + documented as of this encounter Visit Diagnoses Not on filedocumented in this encounter"
--- OUTSIDE RECORDS SUMMARY | ~2019-04-25 | XMS | Encounter Summary ---
Demographics + + + | Address | [address] | | | [place] [address] | + + + | Home Phone [...] [place] | | | | | [address] | | + + + + + Care Team Providers + +------+ + | Care Imaging Account Manager Name | Role | Phone | + +------+ + | Cee Triana MD | PCP | Unavailable | + +------+ + Encounter Details +--------+ + + + + | Date | Type | Department | Care Team | Description | +--------+ + + + + | 09/15/ | Telephone | Digestive Health | Ayana Butler W, | | | 2012 | | [facility] [place] [address] | [address] | | | | | [address] | [facility] [place] | | | | | Mailcode: Jet | [address] | | | | | for Health and | [phone] | | | | | [facility] [address] | | | | | | [place], [place] | | | | | | [address] | | | | | | [phone] | | | +--------+ + + + [...] + + | 04/29/ | Diagnostic | Ammunition Officer | Marce Meyer | | | 2019 | Visit | | Eve Briseno [address] [place] [address] | | | | | | [address] | | | | | | [place] | | | | | | [address] | | +--------+ + + + + documented as of this encounter Visit Diagnoses Not on filedocumented in this encounter"
--- OUTSIDE RECORDS SUMMARY | ~2019-04-25 | XMS | Encounter Summary ---
Demographics + + + | Address | [address] | | | [place] [address] | + + + | Home Phone [...] [place] | | | | | [address] | | + + + + + Care Team Providers + +------+ + | Care Roll Form Operator Name | Role | Phone | [...] | | Toya Spencer Mailcode: | [place], [place] | ear CI w/ Remote) | | | | [address] | [address] | | | | | [place], | | | | | | [place] [address] | | | | | | [phone] | | | +--------+ + + + [...] + + | 04/29/ | Diagnostic | Vehicle Cost Engineer | Marce Meyer | | | 2019 | Visit | | Eve Briseno [address] | | | | | | [address] | | | | | | [place] | | | | | | [address] | | +--------+ + + + + documented as of this encounter Visit Diagnoses Not on filedocumented in this encounter"
--- OUTSIDE RECORDS SUMMARY | ~2019-04-25 | XMS | Encounter Summary ---
Demographics + + + | Address | [address] | | | [place] [address] | + + + | Home Phone [...] [place] | | | | | [address] | | + + + + + Care Team Providers + +------+ + | Care Lastex Thread Winder Name | Role | Phone | + +------+ + | Stephie Deidre Jaleesa | PCP | | + +------+ + Reason for Visit + + + | Reason | Comments | + + + | Hearing loss | 2007 Battery Order | + + + Encounter Details +--------+ + + + + | Date | Type | Department | Care Team | Description | +--------+ + + + + | 12/31/ | Telephone | Otolaryngology | Haroon Poe, | Hearing loss (2006 | | 2006 | | Cochlear Services | PhD | Battery Order) | | | | [address] | | | | | | [address] Mailcode: | | | | | | [address] | | | | | | [place], | | | | | | [place] [address] | | | | | | [phone] | | | +--------+ + + + [...] + + | 04/29/ | Diagnostic | Ordnance Engineer | Marce Meyer | | | 2019 | Visit | | Eve Briseno [address] | | | | | | [address] | | | | | | [place] | | | | | | [address] | | +--------+ + + + + documented as of this encounter Visit Diagnoses Not on filedocumented in this encounter"
--- OUTSIDE RECORDS SUMMARY | ~2019-04-25 | XMS | Encounter Summary ---
Demographics + + + | Address | [address] | | | [place] [address] | + + + | Home Phone [...] [place] | | | | | [address] | | + + + + + Care Team Providers + +------+ + | Care Senior Solutions Workflow Consultant Name | Role | Phone | + +------+ + | No Pcp Per Patient | PCP | Unavailable | + +------+ + Reason for Visit + + + | Reason | Comments | + + + | Medical Records | Medical Record- ED 03-08-13 | | Review | | + + + Encounter Details +--------+ + + + + | Date | Type | Department | Care Team | Description | +--------+ + + + + | 03/11/ | Abstract | Digestive Health | Ayana Butler, | Medical Records | | 2012 | | Center at [facility] [address] | MD [address] | Review (Medical | | | | [address] | [place], [place] | Record- ED 03-08-13) | | | | Mailcode: Center | [address] | | | | | for Health and | [phone] | | | | | [facility] [address] | | | | | | [place], [place] | | | | | | [address] | | | | | | [phone] | | | +--------+ + + + [...] documented as of this encounter Progress Notes Zonia Orellaan MA - 03/11/2013 2:39 PM PDTMedical Record ED scanned [id number] y signed by Zonia Orellana MA at 03/14/2013 5:31 AM PDTdocumented in this encounter Plan of Treatment +--------+ + + + + | Date | Type | Specialty | Care Team | Description | +--------+ + + + + | 04/29/ | Diagnostic | Document Control Specialist | Marce Meyer | | | 2019 | Visit | | Eve Briseno [address] | | | | | | [address] | | | | | | [place], [place] | | | | | | [address] | | +--------+ + + + + documented as of this encounter Visit Diagnoses Not on filedocumented in this encounter"
--- OUTSIDE RECORDS SUMMARY | ~2019-04-25 | XMS | Encounter Summary ---
Demographics + + + | Address | [address] | | | [place] [address] | + + + | Home Phone [...] [place] | | | | | [address] | | + + + + + Care Team Providers + +------+ + | Care Planogrammer Name | Role | Phone | + [...] + + + | Closed | | Purchasing Manager/Sales | Diagnoses | Reese | Ent | | | | | Neural | Sergo W, | Cochlear Ppv | | | | | hearing | MD [address] | [address] | | | | | loss, | | [address] | | | | | bilateral | [address] | [address] Mailcode: | | | | | | [place] | [address] | | | | | | [address] | Physician's | | | | | | | [address] | | | | | | | [place], [place] | | | | | | | [address] | | | | | | | Phone: | | | | | | | [phone] | | | | | | | Fax: | | | | | | | [phone] | +--------+--------+ + + + + Encounter Details +--------+---------+ + + + | Date | Type | Department | Care Team | Description | +--------+---------+ + + + | 03/22/ | Office | Otolaryngology | Pascual Pace, | Neural hearing loss, | | 2009 | Visit | Audiology Services | YULIA Sewell-A [address] | bilateral (Primary | | | | at P[facility] [address] | [address] | Dx) | | | | [address] | Rd [place], [place] | | | | | Mailcode: [address] | [address] | | | | | Physician'johnathon Perez | | | | | | [place], [place] | | | | | | [address] | | | | | | [phone] | | | +--------+---------+ + + + [...] of this encounter Progress Notes Melodie Mayfield, YULIA-A - 03/22/2010 5:01 PM Chapis Harshal Marquez is a 44 year-old ma le who was seen today for follow up of his Nucleus 24 Sprint cochlear implant device. He wa s accompanied to the appointment today by his mother. Edgar reported that he has not been h earing well since his last appointment. Unfortunately, due to medical problems, he has not been able to come in for programming changes. He reports speech is very muffled and he ofte n hears screeching and buzzing. Troubleshooting revealed Mr. Marquez is in need of a replac ement processor. He is also in need of a back up cable coil and microphone. These items wi ll be ordered via [employer]. Mr. Marquez reported that his CI food science technician was misplaced when he was in the hospital and would like to see if he could get a replacement. We will reques t authorization for the from Medicaid. There may also be a chance that Mr. Marquez is picki ng up electromagnetic information from power lines and equipment near his place of residence . He was asked to make note if he continues to experience these sounds even outside his ej ing facility. Mr. Marquez's processor was connected to the computer for programming. Impedance levels we re WNL. His current MAP (MAP 9/P1) was opened and evaluated. Threshold levels were set at counted thresholds. C levels were set to this same configuration and raised approximately 2 5 cu's. Mr. Marquez reported this to be a significant improvement. C levels were increased globally to levels at which Mr. Marquez reported speech to be most comfortable and Mr. Melita dillon demonstrated he was able to repeat spondee words without visual cues. The following set tings were entered into his device: P1 = Map 14 (reconfigured t and c levels, everyday) P2 = Map 15 (+3 cu's) P3 = Map 14 (noise) P4 = Map 14 (increased sensitivity per pt request) It was recommended that Mr. Marquez use these settings and return for follow up in 6 months for further programming and speech perception testing. Melodie Herbert M.A., YULIA-A Clinical & Rehabilitative Purchasing Manager/Sales [facility] Cochlear Implant Program Departement of Otolaryngology/Head & Neck Surgery documented in t his encounter Plan of Treatment +--------+ + + + + | Date | Type | Specialty | Care Team | Description | +--------+ + + + + | 04/29/ | Diagnostic | Purchasing Manager/Sales | Marce Meyer | | | 2018 | Visit | | Eve Briseno [address] | | | | | | [address] | | | | | | [facility] | | | | | | [address] | | +--------+ + + + + documented as of this encounter Visit Diagnoses + + | Diagnosis | + + | Neural hearing loss, bilateral - Primary | + + documented in this encounter"
--- OUTSIDE RECORDS SUMMARY | ~2019-04-25 | XMS | Encounter Summary ---
Demographics + + + | Address | [address] | | | [place] [address] | + + + | Home Phone | | + + + | Preferred Language | Unknown | + + + | Marital Status | | + + + | Restorationism Affiliation | Unknown | + + + | Race | Unknown | + + + | Ethnic Group | Unknown | + + + Author + + + | Author | [facility] | | | and [place] | + + + | Organization | [facility] | | | and [...] Team Providers + +------+ + | Care Business Center Representative Name | Role | Phone | + [...] [address] | | | | | [place], | [place], [place] | | | | | [place] [address] | [address] | | | | | [phone] | | | +--------+--------+ + + + [...] | | 2019 | Visit | | [address] | | | | | | [place] | | | | | | [place] [address] | | | | | | [phone] | | | | | | | | +--------+---------+ + + + | 07/13/ | Office | Pulmonology | Hua Garcia, | | | 2018 | Visit | | MD [address] | | | | | | [place] | | | | | | [address] | | | | | | | | +--------+---------+ + + + documented as of this encounter Visit Diagnoses Not on filedocumented in this encounter"
--- OUTSIDE RECORDS SUMMARY | ~2019-04-25 | XMS | Encounter Summary ---
Demographics + + + | Address | [address] | | | [place] [address] | + + + | Home Phone [...] [place] | | | | | [address] | | + + + + + Care Team Providers + +------+ + | Care Publicity Expert Name | Role | Phone | + +------+ + | Jaison Chávez MD | PCP | | + +------+ + Encounter Details +--------+ + + + + | Date | Type | Department | Care Team | Description | +--------+ + + + + | 07/17/ | Results | NON-[facility] | Heath Diaz, | | | 2009 | Only | Department | [address] | | | | | [place] | | | | | | [address] | | | | | | [phone] | | | | | | | [...] + + | 04/29/ | Diagnostic | Visual Supervisor | Marec Meyer | | | 2019 | Visit | | Eve Briseno [address] [facility] [address] [facility] | | | | | | [address] | | | | | | [place], [place] | | | | | | [address] | | +--------+ + + + + documented as of this encounter Procedures + +--------+ + + + | Procedure Name | Priori | Date/Time | Associated Diagnosis | Comments | | | ty | | | | + +--------+ + + + | ABDOMEN 2 VIEW PA | Routin | 07/17/2010 | | Results for this | | CHEST 01406 | e | 11:30 AM | | procedure are in the | | | | PST | | results section. | + +--------+ + + + | TROPONIN T | Routin | 07/17/2010 | | Results for this | | | e | 11:17 AM | | procedure are in the | | | | PST | | results section. | + +--------+ + + + | CBC W/DIFF, REFLEX | Routin | 07/17/2010 | | Results for this | | | e | 11:17 AM | | procedure are in the | | | | PST | | results section. | + +--------+ + + + | TROPONIN I, PLASMA | Routin | 07/17/2010 | | Results for this | | | e | 11:17 AM | | procedure are in the | | | | PST | | results section. | + +--------+ + + + | COMPLETE METABOLIC | Routin | 07/17/2010 | | Results for this | | SET | e | 11:17 AM | | procedure are in the | | (NA,K,CL,CO2,BUN,CRE | | PST | | results section. | | AT,GLUC,CA,AST,ALT,B | | | | | | TERRY TOTAL,ALK | | | | | | PHOS,ALB,PROT TOTAL) | | | | | + +--------+ + + + | UASRUTHI ONLY | Routin | 07/17/2010 | | Results for this | | | e | 12:00 AM | | procedure are in the | | | | PST | | results section. | + +--------+ + + + documented in this encounter Results ABDOMEN 2 VIEW PA CHEST [id number] (07/17/2010 11:30 AM PST) + + | Specimen | + + | | + + + + + | Narrative | Performed At | + + + | Exam: Abdomen two views and PA chest. Indication: 44-year-old | [facility] | | male with nausea, vomiting, abdominal pain. History of abdominal | DEPARTMENT OF | | surgery. Comparison: Abdominal series of December 15, 2008. | RADIOLOGY | | Findings: Supine and left decubitus abdominal films and PA chest | | | film were obtained. Again noted are hernia mesh markers in the | | | right upper abdomen. Abdominal bowel loops are not | | | distended. No signs of pneumoperitoneum. Lungs are | | | clear. Normal sized heart and pulmonary vessels. | | | Impression: Nonspecific abdominal gas pattern. | | + + + + + | Procedure Note | + + | Interface, Radiology Results - 03/12/2015 1:57 PM PDT Exam: Abdomen two views and | | PA chest.Indication: 44-year-old male with nausea, vomiting, abdominal pain.History of | | abdominal surgery.Comparison: Abdominal series of December 15, 2008.Findings: Supine and | | left decubitus abdominal films and PA chestfilm were obtained. Again noted are hernia | | mesh markers in the rightupper abdomen. Abdominal bowel loops are not distended. No | | signs ofpneumoperitoneum. Lungs are clear. Normal sized heart and | | pulmonaryvessels.Impression: Nonspecific abdominal gas pattern. | |pneumoperitoneum. Lungs are clear. Normal sized heart and pulmonary | |vessels. | |Impression: Nonspecific abdominal gas pattern. | + + + +---------+ + + | Performing | Address | City/State/Zipcode | Phone Number | | Organization | | | | + +---------+ + + | [facility] DEPARTMENT OF | | | | | RADIOLOGY | | | | + +---------+ + + TROPONIN T (07/17/2010 11:17 AM PST) + + + + + [...] + + | [facility] | [address] | [place] [address] | | | MEDICAL CENTER | Streets | | | + + + + + CBC W/DIFF REFLEX (07/17/2010 11:17 AM PST) + + + + + + | Component | Value | Ref Range | Performed | Pathologist | | | | | At | Signature | + + + + + + | WHITE BLOOD | 11.1 (H) | 4.3 - 11.0 X10 | [facility] | | | CELL COUNT | | 3/ul | A MEDICAL | | | | | | CENTER | | + + + + + + | HEMOGLOBIN | 15.1 | 12.3 - 17.0 | [facility] | | | | | g/dL | A MEDICAL | | | | | | CENTER | | + + + + + + | RED BLOOD | 5.03 | 4.7 - 6.1 X10 | [facility] | | | CELL COUNT | | 6/uL | A MEDICAL | | | | | | CENTER | | + + + + + + | HEMATOCRIT | 45.4 | 40.0 - 54.0 % | [facility] | | | | | | A MEDICAL | | | | | | CENTER | | + + + + + + | MCV | 90.3 | 82 - 100 fl | [facility] [...] + + + + | MCHC | 33.3 | 32 - 36 g/dL | [facility] [...] + + + + | PLATELET | 217 | 150 - 450 X10 3 | [...] + + + + | NEUTROPHIL | 86.3 (H) | 40 - 80 % | [facility] | | | % | | | A MEDICAL | | | | | | CENTER | | + + + + + + | LYMPHOCYTE | 7.5 (L) | 20 - 50 % | [facility] | | | % | | | A MEDICAL | | | | | | CENTER | | + + + + + + | EOS % | 0.5 | 0 - 5 % | [facility] [...] + + + | MONOCYTE % | 5.1 | 2 - 10 % | [facility] | | | | | | A MEDICAL | | | | | | CENTER | | + + + + + + | BANDS % | MOTOR VEHICLES INSPECTOR | 0 - 7 % | [facility] [...] + + + | [facility] | [address] | [place] [address] | | | MEDICAL CENTER | Streets | | | + + + + + TROPONIN I, PLASMA (07/17/2010 11:17 AM PST) + +-------+ + + + [...] + + + + | [facility] | And | [place] [address] | | | MEDICAL CENTER | Streets | | | + + + + + COMPLETE METABOLIC SET (NA,K,CL,CO2,BUN,CREAT,GLUC,CA,AST,ALT,BILI TOTAL,ALK PHOS,ALB,PROT TOTAL) (07/17/2010 11:17 AM PST) + +---------+ + + + | Component | Value | Ref Range | Performed | Pathologist | | | | | At | Signature | + +---------+ + + + | SODIUM, | 141 | 137 - 146 MEQ/L | [facility] | | | PLASMA | | | A MEDICAL | | | (LAB) | | | CENTER | | + +---------+ + + + | POTASSIUM, | 3.6 | 3.5 - 5.2 MEQ/L | [facility] | | | PLASMA | | | A MEDICAL | | | (LAB) | | | CENTER | | + +---------+ + + + | CO2 | 21 (L) | 22 - 28 MEQ/L | [facility] | | | | | | A MEDICAL | | | | | | CENTER | | + +---------+ + + + | CHLORIDE, | 104 | 98 - 106 MEQ/L | [facility] | | | PLASMA | | | A MEDICAL | | | (LAB) | | | CENTER | | + +---------+ + + + | GLUCOSE, | 138 (H) | 70 - 105 MG/DL | [...] +---------+ + + + | CREATININE | 1.07 | 0.9 - 1.3 MG/DL | [facility] | | | PLASMA | | | A MEDICAL | | | (LAB) | | | CENTER | | + +---------+ + + + | BUN/CREATIN | 15 | 6 - 20 RATIO | [facility] | | | INE RATIO | | | A MEDICAL | | | | | | CENTER | | + +---------+ + + + | CALCIUM, | 9.8 | 8.5 - 10.8 | [facility] | | | PLASMA | | MG/DL | A MEDICAL | | | (LAB) | | | CENTER | | + +---------+ + + + | AMYLASE,CRISS | 50 | 28 - 100 U/L | [facility] | | | SMA | | | A MEDICAL | | | | | | CENTER | | + +---------+ + + + | AST(SGOT) | 47 (H) | 10 - 41 U/L | [...] + | ALK PHOS | 80 | 40 - 180 U/L | [facility] | | | | | | A MEDICAL | | | | | | CENTER | | + +---------+ + + + | TOTAL | 8.2 | 6.7 - 8.5 G/DL | [facility] | | | PROTEIN, | | | A MEDICAL | | | PLASMA | | | CENTER | | | (LAB) | | | | | + +---------+ + + + | ALBUMIN, | 4.8 | 3.5 - 5.0 G/DL | [facility] | | | PLASMA | | | A MEDICAL | | | (LAB) | | | CENTER | | + +---------+ + + + | BILIRUBIN | 0.6 | 0.2 - 1.6 MG/DL | [facility] | | | TOTAL | | | A MEDICAL | | | | | | CENTER | | + +---------+ + + + | LIPASE | 22 | 5 - 57 U/L | [facility] [...] + | [facility] | [address] | [place] [address] | | | MEDICAL CENTER | Streets | | | + + + + + SRUTHI MUNIZ (07/17/2010 12:00 AM PST) + + + + + + | Component | Value | Ref Range | Performed | Pathologist | | | | | At | Signature | + + + + + + | COLOR(UR) | DK YLW | YELLOW | [facility] | | | [...] + + + + | PH(UR) | 8.5 | 5.0 - 8.0 | [facility] | | | | | | A MEDICAL | | | | | | CENTER | | + + + + + + | PROTEIN, UA | 1+Comment: 07/17/10 | NEGATIVE | [facility] | | | | 1241: URINE PROTEIN | | A MEDICAL | | | | previously reported as: | | CENTER | | | | NEG@ Edited by: | | | | | | Juni Prather@ Reason: | | | | | |@ Reason: | | | | | | | [...] + + + + | LEUKOCYTE | POSComment: 07/17/10 | NEGATIVE | [facility] | | | ESTERASE | 1241: JANUARY MUJICA | | A MEDICAL | | | | previously reported as: | | CENTER | | | | NEG@ Edited by: | | | | | | Rodri Prather Reason: | | | | | |@ Reason: | | | | | | | | | | + + + + + + | UROBILINOGE | NORMAL | NORMAL AUBRIE | [facility] | | | N | | | A MEDICAL | | | | | | CENTER | | + + + + + + | WHITE CELLS | NEG | 0 - 2 HPF | [facility] | | | | | | A MEDICAL | | | | | | CENTER | | + + + + + + | RED CELLS | 3-5 | 0 - 3 HPF | [facility] [...] + + + + | BACTERIA | NEG [...] + + | [facility] | [address] | [place] [address] | | | [facility] | [place] | | | + + + + + documented in this encounter Visit Diagnoses Not on filedocumented in this encounter"
--- OUTSIDE RECORDS SUMMARY | ~2019-04-25 | XMS | Encounter Summary ---
Demographics + + + | Address | [address] | | | [place] [address] | + + + | Home Phone [...] Author + + + | Author | [facility] | + + + | Organization | [facility] | + + + | Address | Unknown | + + + | Phone | Unavailable | + + + Support + + + + + | Name | Relationship | Address | Phone | + + + + + | Margarito Owusu | ECON | [address] | | | | | [place] | | | | | [address] | | + + + + + Care Team Providers + +------+ + | Care Customer Service Leader Name | Role | Phone | + +------+ + | Maurice Zelaya MD | PCP | | + +------+ + Encounter Details +--------+ + + + + | Date | Type | Department | Care Team | Description | +--------+ + + + + | 08/11/ | Discharge | [facility] [address] | Ashley Omalley MD | Discharge Summaries | | 2008 | Summary-Tra | E The | [facility] | | | | nscribed | [place] | [facility] [address] | | | | | [address] | [address] | | | | | | [place] [address] | | | | | | [phone] | | | | | | | [...] documented as of this encounter Discharge Summaries Md Shahram Ashley - 08/14/2008 11:54 AM [facility] DISCHARGE SUMMARY [address] [place] [address] EDGAR VIVAR DATE OF ADMISSION: 08/11/2008 DATE OF DISCHARGE: 08/12/2008 DATE AND TIME OF PATIENT LEAVING AMA: August 12 at about 6:30 p.m. REASON FOR ADMISSION: The patient is a 42-year-old gentleman who underwent a laparoscopic ventral hernia repair on August 09. The surgery went as expected. The patient did well postoperatively and actually was extubated without difficulty and went home on August 09. On August 11 the patient returned, reported not having a bowel movement since that time, had been eating but complaining of some epigastric discomfort and started having some nausea, vomiting, pain got worse today and came into the emergency room. Upon admission to the emergency room he was found to have a bilirubin of 2.1 and a white count of 19,000 and I was immediately notified. The patient did have mild to moderately diffuse abdominal tenderness, had no peritoneal signs, voluntary guarding, had some mild erythema round his umbilical site, but no obvious signs of aggressive cellulitis. The patient had a high concern for intra-abdominal catastrophe with his white count and his exam versus intra-abdominal etiology versus a COPD problem or a lung problem. He was admitted, started on IV antibiotics, made n.p.o., IV hydration and with high suspicion of possible intra-abdominal problem, and emergent CT scan was obtained with oral and IV contrast. HOSPITAL COURSE: The patient was admitted, started on IV antibiotics for a possible intra-abdominal abscess, cellulitis versus COPD, made n.p.o., IV hydration, and CT scan was obtained and the patient's CT scan results came back with no obvious intra-abdominal fluid, no obvious recurrence of hernia, and a seroma cavity overlying the mesh, the mesh completely circumferentially intact. No leak. The patient was monitored on the telemetry floor overnight. In the morning, his white count came down to 16,000 but he continued to have abdominal pain. Because of this concern with increase in abdominal distention, an NG-tube was placed. The patient was also transferred to the ICU so he could have closer monitoring becasue of his repiratory rate and significant coughing. In addition to this a repeat CT scan of the abdomen and pelvis with more oral contrast was obtained. This scan was discussed with Dr. Dahiana Wilcox and it was felt that this was a better film and there was less concern of recurrence of the hernia or leak or other intra-abdominal problem. Normal looking seroma cavity anterior to the mesh without surrounding inflammation of the subcutaneous fat. Following this second CT scan the patient became very aggressive, aggitated, and upset and started pulling his IV out and pulled his NG, and demanded that his waddell catheter be removed immediately. Multiple attemps by the RN's and myself were made to get the patient to stay; however, we were unsuccessful he was adamant about leaving. He refused to discuss his care, wanting to leave AMA. This was discussed with the family that he would be leaving AMA. Although I did not appear to find any serious intra-abdominal problem at this time, I was very concerned because of his level of pain and white count, but he was adamant about leaving and we were unable to convince him otherwise. I recommended that, if he had any increasing pain at all, to return immediately and this was expressed to both the patient and to the patient's family. They understood this and the patient left AMA. EDGAR VIVAR [id number] ADMIT DATE: 08/11/08 DISCHARGE DATE: 08/12/08 TITUS/Viraj /[id number] Electronically Signed MD [address] KEVIN R [id number] ADMIT DATE: 08/11/08 DISCHARGE DATE: 08/12/08 AL gusman Md Ashley - 08/14/2008 9:59 AM [facility] DISCHARGE SUMMARY [address] [facility] [place] [address] EDGAR VIVAR DATE OF ADMISSION: 08/11/2008 DATE OF DISCHARGE: 08/12/2008 ADDENDUM I was contacted regarding this patient from the emergency room at [facility] on Thursday, the . The patient reportedly arrived to the [place] [facility] and seen by the physician, who contacted me. The patient reported that they did not want to return to [place] for further care. I discussed with the physician there that the patient had left AMA prior to our completion of his workup for concerns of his elevated white count that was 19 on admission, 16 when he left, but as 2 CT scans had been performed in that, by the readings with the radiologist, did not appear to have any intra-abdominal etiology, and I concurred with this on my own inspection of the CT. However, we were very concerned with his respiratory rate, which was in the 20s when he left, which the family had reported was his baseline. In addition to this, we were concerned about cellulitis developing, his abdomen had marked area prior to his discharge. The physician in the emergency room reported to me that the patient was breathing rapidly, but again was told by the family that this was his baseline, that his abdomen did not have peritoneal signs but was tender, and that the redness where we had marked previously appeared better, inspection to have decreased from our marking. She then stated to me that none of the labs were back yet and that she was going to go ahead and contact the surgeon in the [place] area that was biodiesel production associate. I was subsequently called by Dr. Lorenzo Mora, who inspected the patient and told me that the wound infection count was now 33,000. Dr. Lorenzo Mora stated that he felt that there was a recurrence of the hernia and that he planned on taking the patient to the operating room. Following this discuss, I then was able to contact Dr. Mora again regarding this operation. He reported to me that the mesh was completely intact, that there were no signs of recurrence of hernia, no tracking of bowel within the mesh, the mesh was completely secured circumferential and looked to be in good shape. There were no intra-abdominal injuries. The bowel was all healthy. There was no inflammatory or intestinal fluid within the abdomen. He chose to remove the mesh, he reported to me, and that there was seroma fluid in the seroma cavity as would be expected, but nothing unusual about the placement of the mesh or any intra-abdominal findings. He then stated that they were unable to extubate the patient following the surgery and that he was going to transfer the patient to [place] for further care. EDGAR VIVAR [id number] ADMIT DATE: 08/11/08 DISCHARGE DATE: 08/12/08 /Viraj /[id number] Electronically Signed MD [address] Street KEVIN R [id number] ADMIT DATE: 08/11/08 DISCHARGE DATE: 08/12/08 d ocumented in this encounter Plan of Treatment +--------+ + + + + | Date | Type | Specialty | Care Team | Description | +--------+ + + + + | 04/29/ | Diagnostic | Hydrogen Plant Operator | Marce Meyer | | | 2019 | Visit | | Eve Briseno [address] [facility] | | | | | | [address] | | | | | | [facility] | | | | | | [address] | | +--------+ + + + + documented as of this encounter Visit Diagnoses Not on filedocumented in this encounter"
--- OUTSIDE RECORDS SUMMARY | ~2019-04-25 | XMS | Encounter Summary ---
Demographics + + + | Address | [address] | | | [place] [address] | + + + | Home Phone [...] Author + + + | Author | [facility] | + + + | Organization | [facility] | + + + [...] [place] | | | | | [address] | | + + + + + Care Team Providers + +------+ + | Care Double End Tenoner Setter Name | Role | Phone | [...] 2008 | Summary-Tra | E The | [facility] | | | | nscribed | [place] | Health [facility] [address] | | | | | [address] | [address] | | | | | | [place] [address] | | | | | | [phone] | | | | | | | [...] Md Shahram Ashley - 08/14/2008 11:54 AM [facility] DISCHARGE SUMMARY [address] [place] [address] EDGAR VIVAR DATE OF ADMISSION: 08/11/2008 DATE [...] and the patient left AMA. EDGAR VIVAR [id number] ADMIT DATE: 08/11/08 DISCHARGE DATE: 08/12/08 TITUS/Viraj /[id number] Electronically Signed MD [address] KEVIN R [id number] ADMIT DATE: 08/11/08 DISCHARGE DATE: 08/12/08 AL gusman Md Ashley - 08/14/2008 9:59 AM [facility] DISCHARGE SUMMARY [address] [place] [address] EDGAR VIVAR DATE OF ADMISSION: 08/11/2008 DATE OF DISCHARGE: 08/12/2008 ADDENDUM I was contacted regarding this patient from the emergency room at [facility] on Thursday, the . The patient reportedly arrived to the [place] [facility] and seen by the physician, who contacted me. The patient reported that they did not want to return to [place] for further care. I discussed with the [...] ahead and contact the surgeon in the [place] area that was digital production manager. I was subsequently called by Dr. Lorenzo [...] was going to transfer the patient to [place] for further care. EDGAR VIVAR [id number] ADMIT DATE: 08/11/08 DISCHARGE DATE: 08/12/08 /Viraj /[id number] Electronically Signed MD [address] Street KEVIN R [id number] ADMIT DATE: 08/11/08 DISCHARGE DATE: 08/12/08 d ocumented in this encounter Plan of Treatment +--------+ + + + + | Date | Type | Specialty | Care Team | Description | +--------+ + + + + | 04/29/ | Diagnostic | Exchange Teller | Macre Meyer | | | 2019 | Visit | | Eve Briseno [address] [facility] | | | | | | [address] | | | | | | [facility] | | | | | | [address] | | +--------+ + + + + documented as of this encounter Visit Diagnoses Not on filedocumented in this encounter"
--- OUTSIDE RECORDS SUMMARY | ~2019-04-25 | XMS | Encounter Summary ---
Demographics + + + | Address | [address] | | | [place] [address] | + + + | Home Phone [...] [place] | | | | | [address] | | + + + + + Care Team Providers + +------+ + | Care Timber Cruiser Name | Role | Phone | + +------+ + | Maurice Zelaya MD | PCP | | + +------+ + Encounter Details +--------+ + + + + | Date | Type | Department | Care Team | Description | +--------+ + + + + | 03/09/ | Documentati | Otolaryngology | Marce Meyer | | | 2019 | on | Audiology Services | K, AuD [address] | | | | | at [facility] [address] | [address] | | | | | [address] | [place], [place] | | | | | Mailcode: PV01 | [phone] | | | | | [facility] | | | | | | [place], [place] | | | | | | [address] | | | | | | [phone] | | | +--------+ + + + [...] + + | 04/29/ | Diagnostic | Tinter Photograph | Marce Meyer | | | 2019 | Visit | | Eve Briseno [address] | | | | | | [address] | | | | | | [place], [place] | | | | | | [address] | | +--------+ + + + + documented as of this encounter Visit Diagnoses Not on filedocumented in this encounter"
--- OUTSIDE RECORDS SUMMARY | ~2019-04-25 | XMS | Encounter Summary ---
Demographics + + + | Address | [address] | | | [place] [address] | + + + | Home Phone [...] [place] | | | | | [address] | | + + + + + Care Team Providers + +------+ + | Care Rn Admissions Name | Role | Phone | + +------+ + | Maurice Zelaya MD | PCP | | + +------+ + Reason for Visit + + + | Reason | Comments | + + + | New patient | | | consultation | | + + + Intake Referral (Routine) +--------+--------+ + + + + | Status | Reason | Specialty | Diagnoses / | Referred By | Referred To | | | | | Procedures | Contact | Contact | +--------+--------+ + + + + | Closed | | Surgery | Diagnoses | Nathalie, | [place], | | | | | Ventral | Maurice Perdomo, | Ray Jovel MD | | | | | hernia, | MD [address] | [address] | | | | | recurrent | [address] | | | | | recurrent | [place] | [place], [place] | | | | | ventral | [place] | [address] | | | | | hernia | [address] | Phone: | | | | | | Phone: | [phone] | | | | | | [phone] | Fax: | | | | | | Fax: | [phone] | | | | | | [phone] | | +--------+--------+ + + + + Encounter Details +--------+---------+ + + + | Date | Type | Department | Care Team | Description | +--------+---------+ + + + | 06/04/ | Office | Digestive Health | Ray Greene, | Recurrent ventral | | 2016 | Visit | [place] [facility] [address] | MD [address] | hernia (Primary Dx) | | | | [address] | [place], [place] | | | | | Mailcode: [place] | [address] | | | | | for Health and | [phone] | | | | | [facility] | | | | | | [place], [place] | | | | | | [address] | | | | | | [phone] | | | +--------+---------+ + + + [...] + + + | Blood Pressure | 131/88 | 06/04/2016 2:36 PM | | | | | PST | | + + + + + | Pulse | 78 | 06/04/2016 2:36 PM | | | | | PST | | + + + + + | Temperature | 36.6 C (97.8 F) | 06/04/2016 2:36 PM | | | | | PST | | + + + + + | Respiratory Rate | 18 | 06/04/2016 2:36 PM | | | | | PST [...] | Height | 182.9 cm (6') | 06/04/2016 2:36 PM | | | | | PST | | + + + + + | Body Mass Index | - | - | | + + + + + documented in this encounter Progress Notes Fermin Titus, Fadi - 06/04/2016 2:50 PM PST The Department of Surgery History & Physical Author: Shane Christensen MD, MS Attending Physician: Ray Greene MD 06/04/2016, 2:51 PM Chief Complaint: "hernia's back" HPI: Edgar Marquez is a 50 y.o. male who has a complex surgical history originally i n 2011 at which time he underwent a ventral hernia repair with composix mesh; this operation was complicated by apparent bowel injury requiring exploratory laparotomy and diverting col ostomy. After subsequent ostomy takedown and convalescence, the patient was noted to have a malaysian-cheese midline abdominal wall hernia defect and a defect at his stoma site. For these hernias he underwent an exploratory laparotomy, lysis of adhesions, and repair with biologic mesh with Dr. Greene on 08/19/2012. Since that time the patient has been doing well but now notes pain at his epigastric hernia site. He has some dysphagia to solids and liquids that he is concerned is related to his he rnia. He has stopped taking narcotics and notes resolution of his chronic constipation. He h as also stopped smoking and is working hard to control his diabetes. PAST MEDICAL HISTORY: Past Medical History Diagnosis Date Heart attack ([facility]) 2007 he was started on aspirin Hypertension Other and unspecified hyperlipidemia Chronic airway obstruction, not elsewhere classified ([facility]) PFTs 12/18/2011 FVC 5.19/99%, FEV1 2.82/69%, FEV1/FVC 54. Moderate obstruction with signif icant reversibility with bronchodilator. GERD (gastroesophageal reflux disease) controlled on PPI UTI (urinary tract infection) Diabetes mellitus type II on metformin Depressive disorder, not elsewhere classified Anxiety state, unspecified Unspecified nonpsychotic mental disorder Seizure disorder on tegretol Rectal fissure SUSAN (obstructive sleep apnea) 03/28/2008 Other general symptoms(780.99) Unspecified hearing loss COPD (chronic obstructive pulmonary disease) ([facility]) oxygen dependent Unspecified asthma(493.90) PAST SURGICAL HISTORY: Past Surgical History Procedure Laterality Date Pr sinus surgery proc unlisted 2006 Abdominal hernia repair 14 stomach surgery Cochlear implant HOME MEDICATIONS: Aspirin 81 mg Oral tablet, Take 1 Tab by mouth once daily. carBAMazepine 200 mg Oral tablet, Take by mouth. One tablet in AM and two tablets in the a fternoon ciprofloxacin 0.3 % ophthalmic drops, Instill 2 drops into the right ear two times daily. I nstill 3 drops instead of 2 drops into right ear two times daily cyclobenzaprine (FLEXERIL) 10 mg Oral tablet, Take 10 mg by mouth three times daily as need ed. Do not use longer than 2-3 weeks. dexamethasone 0.1 % ophthalmic drops, Instill 2 drops into the right ear two times daily. docusate sodium (COLACE) 100 mg Oral capsule, Take 1 Cap by mouth two times daily. fluticasone-salmeterol 250-50 mcg/dose Inhalation Disk with Device, Inhale 1 Puff two times daily. furosemide 20 mg Oral tablet, Take 20 mg by mouth once daily. 1/2 tab twice a day hydrochlorothiazide 25 mg Oral tablet, Take 25 mg by mouth once daily. HYDROcodone-acetaminophen (NORCO) 7.5-325 mg oral tablet, Take 1 tablet by mouth every four hours as needed for moderate pain or severe pain. Not to exceed 3250 mg of acetaminophen fr om all products per 24 hour period. insulin glargine 100 unit/mL subcutaneous solution, Inject 14 Units under the skin (SUBC) o nce daily at bedtime. ipratropium 0.02 % inhalation solution, Inhale three times daily. ketorolac 10 mg oral tablet, Take 1 tablet by mouth every six hours as needed for moderate pain or severe pain. Maximum daily dose: 40 mg/day; Maximum duration of therapy: 5 days levothyroxine 25 mcg Oral tablet, Take 25 mcg by mouth before breakfast. lisinopril 40 mg oral tablet, Take 40 mg by mouth once daily. LORazepam (ATIVAN) 2 mg Oral tablet, Take 2 mg by mouth every four hours as needed. lurasidone (LATUDA) 40 mg Oral tablet, Take by mouth once daily. magnesium hydroxide ([employer] MILK OF YieldBuild) 400 mg/5 mL Oral Suspension, Take 30 mL by mouth once daily as needed. metFORMIN 1,000 mg oral tablet, Take 1,000 mg by mouth once daily. mirtazapine 30 mg oral tablet, Take 30 mg by mouth once daily in the evening. omeprazole (PRILOSEC) 20 mg Oral capsule,delayed release(DR/EC), Take 20 mg by mouth once d aily. polyethylene glycol (MIRALAX) 17 gram/dose Oral Powder, Take 17 g by mouth once daily. polyethylene glycol 17 gram/dose Oral Powder, Take 17 g by mouth two times daily. prazosin 5 mg Oral capsule, Take 5 mg by mouth once daily. prochlorperazine 5 mg Oral tablet, Take 1 Tab by mouth every six hours as needed for nausea /vomiting. Max dose: 40 mg/day promethazine 25 mg oral tablet, Take 25 mg by mouth four times daily as needed for nausea/v omiting. propranolol 40 mg Oral tablet, Take 40 mg by mouth two times daily. risperiDONE 1 mg oral tablet, Take 1 mg by mouth once daily at bedtime. senna-docusate (SENNA LAXATIVE) 8.6-50 mg Oral tablet, Take 1 Tab by mouth two times daily. simethicone chew 80 mg oral tablet,chewable, Take 80 mg by mouth four times daily as needed for bloating. tiotropium 18 mcg Inhalation capsule, w/inhalation device, Inhale 18 mcg once daily. topiramate 25 mg Oral tablet, Take 25 mg by mouth once daily at bedtime. ALLERGIES: Allergies Allergen Reactions Morphine Psychosis? Penicillins Rash SOCIAL HISTORY: Social History Substance Use Topics Smoking status: Former Smoker -- 3.00 packs/day for 20 years Types: Cigarettes Quit date: 06/13/2013 Smokeless tobacco: Never Used Alcohol Use: 0.5 - 1.0 oz/week 1-2 drink(s) per week Comment: Pt buys case of beer with paycheck at start of month--drinks that and none for rest of month FAMILY HISTORY: Family History Problem Relation Lung Disease Mother COPD (smoker) Lung Disease Sister "lung disease" (smoker) Anesthesia Neg Hx Heart Disease Father REVIEW OF SYSTEMS: Gen: no fevers, chills, weight loss HEENT: no post nasal drip, sore throat Resp: no SOB, cough, wheezing. CV: no chest pain, palpitations, dyspnea, claudication GI: No nausea, vomiting, diarrhea, constipation, melena, hematochezia. : no changes in urination or frequency/urge/incontinence. Skin: no changes in skin color, suspicious/new lesions, itching, or flushing. Heme: no easy bruising or bleeding, no enlarged lymph nodes. Endo: no excessive thirst or temperature sensitivity. MSK: no joint pain, muscle aches/pains. Allergic: no seasonal allergies, hives, rash, or exposure to infectious diseases. PHYSICAL EXAM: BP 131/88 | Pulse 78 | Temp (Src) 36.6 C (97.8 F) (Oral) | RR 18 | Ht 1.829 m (6') BMI 35 General: Alert and oriented, NAD HEENT: Sclerae anicteric, EOMI Respiratory: Unlabored, CTA throughout CV: RRR, no murmurs/rubs/gallops Abdomen: soft, nondistended, non-tender Neuro: CN grossly intact, no obvious neurologic defecits Extremities: Warm and well perfused, no peripheral edema Hernia: 3cm x 3cm epigastric hernia left of midline Small 2cm hernia at prior ostomy site LABS: Lab Results Component Value Date WBC 11.36 12/06/2013 HB 15.1 12/06/2013 HCT 45.0 12/06/2013 PLT 169 12/06/2013 MCV 92.8 12/06/2013 RDW 44.0 12/06/2013 Lab Results Component Value Date NA 136 12/06/2013 K 4.4 12/06/2013 CL 102 12/06/2013 BICARB 25 12/06/2013 BUN 13 12/06/2013 CR 0.9 06/04/2016 GLU 104 12/22/2013 CA 9.8 12/06/2013 ANIONGAP 9 12/06/2013 ANIONALBCOR 8 10/06/2012 Lab Results Component Value Date APTT 27.9 12/15/2008 IMAGING/STUDIES: CT A/P 06/04: IMPRESSION: 2, ventral hernias that are both fat containing, with minimal encroachment of transverse colon within the right lateral hernia without evidence of proximal obstruction, or strangulation. Fatty liver. Attending Radiologists: BREANN ROSARIO MD Author: BREANN ROSARIO MD ASSESSMENT AND PLAN: This is Edgar Marquez, a 50 y.o. M with multiple comorbidities including obesity, DM , and COPD presenting with a symptomatic incisional hernia recurrence after multiple prior h ernia repairs. - The patient has made multiple strides thus far to reduce his risk for hernia recurrence: he has quit smoking, he has stopped all narcotics that led to chronic constipation and strai ashlyn, and his diabetes is very well managed (last HgbA1c 5.1) . However, his obesity, chroni c cough 2/2 COPD, prior infected field, and multiple prior hernia repairs place him at incre ased risk for failure and SSO after hernia repair. - Plan for optimization of COPD with patient's home parcel carrier, Dr. Hua Garcia, [facility] the patient said he would contact today. - Encouraged 10-15lb weight loss prior to consideration of repair. - RTC in 3 months to consider laparoscopic vs. Open repair of epigastric and possible RLQ s tomal site hernia The patient was seen and discussed with Dr. Ray Greene, who agrees. Shane Christensen MD, MS Minimally Invasive Surgery Fellow [facility], General Surgery [phone]: [phone] Ray Magallon MD - 06/04/2016 2:00 PM PST ATTENDING NOTE I saw and evaluated the patient. I agree with the findings and the plan of care as jamir martino in the fellow's note. Ray Greene MD, [facility] RAY GREENE MD [facility] [address]TH FLOOR [address] Mailcode: [address] [place] [address] documented in this en counter Plan of Treatment +--------+ + + + + | Date | Type | Specialty | Care Team | Description | +--------+ + + + + | 04/29/ | Diagnostic | Supersonic Engineer | Marce Meyer | | | 2018 | Visit | | Eve Briseno [address] | | | | | | [address] | | | | | | [place], [place] | | | | | | [address] | | +--------+ + + + + documented as of this encounter Visit Diagnoses + + | Diagnosis | + + | Recurrent ventral hernia - Primary Incisional hernia without mention of obstruction | | or gangrene | + + documented in this encounter
--- OUTSIDE RECORDS SUMMARY | ~2019-04-25 | XMS | Encounter Summary ---
Demographics + + + | Address | [address] | | | [place] [address] | + + + | Home Phone | | + + + | Preferred Language | Unknown | + + + | Marital Status | Single | + + + | [employer]beterian Affiliation | BAP | + + + [...] [place] | | | | | [address] | | + + + + + Care Team Providers + +------+ + | Care Wildlife Policy Professional Name | Role | Phone | + +------+ + | Cee Triana MD | PCP | Unavailable | + +------+ + Encounter Details +--------+ + + + + | Date | Type | Department | Care Team | Description | +--------+ + + + + | 10/04/ | Telephone | Dig[facility]ive Health | Ayana Butler W, | | | 2012 | | [facility] [address] | [address] | | | | | [place] | [facility] [place] | | | | | Mailcode: [place] | [address] | | | | | for Health and | [phone] | | | | | [facility] [address] | | | | | | [place], [place] | | | | | | [address] | | | | | | [phone] | | | +--------+ + + + [...] + + | 04/29/ | Diagnostic | Wireless Communications Engineer | Marce Meyer | | | 2019 | Visit | | Eve Briseno [address] [place] [address] | | | | | | [address] | | | | | | [place] | | | | | | [address] | | +--------+ + + + + documented as of this encounter Visit Diagnoses Not on filedocumented in this encounter"
--- OUTSIDE RECORDS SUMMARY | ~2019-04-25 | XMS | Encounter Summary ---
Demographics + + + | Address | [address] | | | [place] [address] | + + + | Home Phone [...] [place] | | | | | [address] | | + + + + + Care Team Providers + +------+ + | Care Corporate Counsel Name | Role | Phone | + [...] | +--------+ + + + + | 12/22/ | Hospital | [facility] [address] | Willie Plunkett, | | | 2013 | Encounter | [address] | | | | | | [facility] | | | | | | Paola Perez | | | | | | ([facility] | | | | | | [place], [place] | | | | | | [address] | | | | | | [phone] | | | +--------+ + + + [...] | drinks or equivalent | | with soocheck at | | | | | start [...] + + + | Blood Pressure | 121/67 | 12/22/2013 6:15 PM | | | | | PDT | | + + + + + | Pulse | 92 | 12/22/2013 6:15 PM | | | | | PDT | | + + + + + | Temperature | 37 C (98.6 F) | 12/22/2013 6:01 PM | | | | | PDT | | + + + + + | Respiratory Rate | 15 | 12/22/2013 6:15 PM | | | | | PDT | | + + + + + | Oxygen Saturation | 98% | 12/22/2013 6:15 PM | | | | | PDT | | + + + + + | Inhaled Oxygen | - | - | | | Concentration | | | | + + + + + | Weight | 124.3 kg (274 lb 0.5 | 12/22/2013 12:51 PM | | | | oz) | PDT | | + + + + + | Height | 184.8 cm (6' 0.76") | 12/22/2013 12:51 PM | | | | | PDT | | + + + + + | Body Mass Index | 36.4 | 12/22/2013 12:51 PM | | | | | PDT | | + + + + + documented in this encounter Discharge Instructions Instructions Nica Meza MD - 12/22/2013Post op Tympanoplasty/Mastoidectomy Surgery: General Instructions -Your ear dressing may be removed at 24 hrs post-op -You may get the area behind your ear wet on the 3rd post op day. -You should keep water out of your ear canal until given the ok to get it wet at your post op visit by your surgeon -No strenuous activity or heavy lifting for 3 weeks -Take your pain medicine and dizziness medication as needed. You may transition to an over the counter pain medication (Tylenol, Motrin) when you no longer need the prescription medic ation -Your ear canal has been packed with ointment and absorbable packing, as a result your hear ing will be muffled, and your ear will drain a blood tinged discharge for up to a week -If the drainage begins to develop a foul odor or appear to be infected, you should contact your surgeon MICHAEL. -No nose blowing or trying to pop or equalize your ears for 2 weeks. -No flying for 3 days. Things that should prompt you to call your surgeon: Increasing pain that is sustained, prol onged significant bleeding, increasing dizziness, concern regarding infection, swelling gett ing worse not better. -If you have questions or concerns about your it is always better to call our office to get your questions answered: Call [phone] during business hours. Call [phone] after 5:00pm and weekends or holidays Call: [facility] Otolaryngology Resident at If you have any of the followin g: -Difficulty breathing or unusual shortness of breath -Excessive bleeding, drainage at the operative site -Fevers, chills, increased pain that is not relieved by pain medications -Persistent nausea or vomiting -Other SPECIFIC concerns, such as: Patient or family concerns. 12/22/2013 5:06 PM documented in this encounter Medications at Time [...] + + + +---------+ + + | insulin glargine | Inject 14 Units | | 0 | | | | 100 unit/mL | under the skin | | | | | | subcutaneous | (SUBC) once daily at | | | | | | solution | bedtime. | | | | | + + [...] + + + +---------+ + + | metFORMIN 1,000 mg | Take 1,000 mg by | | 0 | | | | oral tablet | mouth once daily. | | | | | + + + +---------+ + + | mirtazapine 30 mg | Take 30 mg by mouth | | 0 | | | | oral tablet | once daily in the | | | | | | | evening. | | | | | + + + +---------+ + + | omeprazole | Take 20 mg by mouth | | 0 | | | | (PRILOSEC) 20 mg | once daily. | | | | | | Oral capsule,delayed | | | | | | | release(/EC) | | | | | | + + + +---------+ + + | clindamycin 300 mg | Take 1 capsule by | 15 | 0 | 12/23/19 | | | oral capsule | mouth every eight | capsule | | 14 | 4 | | | hours for 5 days. | | | | | + + + +---------+ + + documented as of this encounter Progress Notes Rosmery Chaves MD - 12/22/2013 5:24 PM PDTINPATIENT BRIEF OPERATIVE NOTE Procedure Date: 12/22/2013 Attending Physician: Willie Plunkett MD Assistants: Leanne Graf MD; Nica Meza MD Preoperative Diagnosis: recurrent right ear cholesteatoma, s/p canal wall down mastoidectom y Postoperative Diagnosis: same Procedure Performed: 1. Revision right canal wall down mastoidectomy 2. Right meatoplasty Estimated Blood Loss: 80 mL Specimens: right ear cholesteatoma Complications: none Drains: none Disposition: PACU then home Findings: recurrent cholesteatoma within right mastoid cavity, TM intact d ocumented in this encounter Plan of Treatment +--------+ + + + + | Date | Type | Specialty | Care Team | Description | +--------+ + + + + | 04/29/ | Diagnostic | Glass Toughening Operator | Marce Meyer | | | 2019 | Visit | | K, AuD [address] | | | | | | [address] | | | | | | [place], [place] | | | | | | [address] | | +--------+ + + + + documented as of this encounter Procedures + +--------+ + + + | Procedure Name | Priori | Date/Time | Associated Diagnosis | Comments | | | ty | | | | + +--------+ + + + | REVISION OF | Routin | 08/30/2015 | | Results for this | | MASTOIDECTOMY | e | 6:58 PM | | procedure are in the | | | | PST | | results section. | + +--------+ + + + | OPERATION RECORD | | 01/02/2014 | | Results for this | | | | 9:48 PM | | procedure are in the | | | | PDT | | results section. | + +--------+ + + + | CAPILLARY BLOOD | Routin | 12/22/2013 | | Results for this | | GLUCOSE (NO CHG), | e | 5:49 PM | | procedure are in the | | POC | | PDT | | results section. | + +--------+ + + + | MEATOPLASTY (OTOL) | Electi | 12/22/2013 | Cholesteatoma of | | | | ve | 4:00 PM | middle ear and | | | | Surgic | PDT | mastoid(385.33) | | | | al | | | | + +--------+ + + + | TYMPANOPLASTY | Electi | 12/22/2013 | Cholesteatoma of | | | | ve | 4:00 PM | middle ear and | | | | Surgic | PDT | mastoid(385.33) | | | | al | | | | + +--------+ + + + | CAPILLARY BLOOD | Routin | 12/22/2013 | | Results for this | | GLUCOSE (NO CHG), | e | 12:51 PM | | procedure are in the | | POC | | PDT | | results section. | + +--------+ + + + | SURGICAL PATHOLOGY | Routin | 12/22/2013 | | Results for this | | | e | | | procedure are in the | | | | | | results section. | + +--------+ + + + documented in this encounter Results REVISION OF MASTOIDECTOMY (08/30/2015 6:58 PM PST)OPERATION RECORD (01/02/2014 9:48 PM PD T) + + | Transcriptions | + + | Willie Plunkett MD - 12/22/2013 6:57 PM PDT Date of Service: 12/22/2013ttending | | Surgeon: Willie Plunkett MD Safety Director(s): Rosmery Hernandez | | MD Juan Preop Diagnoses: Right post mastoidectomy cavity | | cholesteatoma.Postop Diagnosis: Right post mastoidectomy cavity | | cholesteatoma.Procedure: 1. Right revision canal wall down mastoidectomy.2. Cartilage | | graft.3. Meatoplasty.4. Microdissection.Anesthesia: General endotracheal.Complications: | | None.Specimens: Cholesteatoma.Estimated Blood Loss: 50 cc.Indication For Procedure: | | Mr. Marquez is a gentleman who has long been known to our service, having had a canal | | wall down mastoidectomy on the right in the past, and the left side cochlear implant. | | He has had recurrent chronic drainage from the right ear. He has been evaluated | | multiple different times and attempted to have surgery. He eventually was medically | | stable and brought to the operating room for removal of the cholesteatoma and a revision | | of his cavity after informed consent was obtained.Findings: There was a large pocket | | of skin and granulation tissue in the patient's mastoidectomy cavity in the sinodural | | angle, with a large scar bound in the cavity. He had a very small meatoplasty. The | | middle ear space was not entered, but his meatoplasty was widened and his cavity | | opened.Procedure In Detail: The patient was properly identified, brought to the | | operating room, placed on operative table in supine position. General anesthesia was | | administered by members of the Anesthesia Service. The patient was intubated. The | | right ear was prepped and draped in the usual sterile fashion. The 2-channel bipolar | | facial monitor was set to the right side of the face, turned on, assured working, used | | throughout the procedure. This was monitored by the audiology service. The right ear | | was examined with high-powered binocular microscope. The external canal was cleaned and | | canal wall injection was made using local anesthetic of 1% lidocaine with 1:100,000 | | epinephrine. The postauricular area was injected, as well. Following this, the | | vascular strip incisions were made, 1 inferiorly and 1 superiorly, and then the | | postauricular approach made through the patient's previous incision, dissection carried | | down through the subcutaneous tissue and elevated forward. The mastoid periosteum was | | then incised in a C fashion and the periosteum elevated using a Lempert elevator. The | | soft tissues were then retracted, and the skin from the meatus was elevated. The | | aforementioned findings were noted. The 6 cutting drill bit was used to take the tegmen | | down to the patient's level of the mastoid tegmen, and the bone posteriorly was opened | | up and saucerized. The edges of the cavity superiorly were exposed and all overhanging | | bone was removed. We then removed the cholesteatoma. It came out in its entirety. | | There was a small opening into the antrum where the incus was located that we addressed. | | Anteriorly, the TM and ossicular chain was not interrupted. The facial ridge was | | drilled down slightly with a guerrero drill bit. At this point, we had good | | saucerization and we turned our attention to the meatoplasty. The meatoplasty was | | performed from posteriorly. The lidia cartilage was resected. A 1 x 1 cm area was | | resected and then the vascular strip incisions continued into the meatus, 1 inferiorly, | | 1 superiorly to open the meatus and a wide meatoplasty. We then obtained hemostasis and | | then placed 3 separate 3-0 Vicryl sutures, 1 inferiorly, 1 superiorly, and 1 | | posteriorly, the stent opened, and tied these individually to open the meatus. | | Cartilage and perichondrium from the meatoplasty was taken, and a small piece of the | | cartilage placed over to block the antrum, to isolate it from the mastoid. We then | | placed Gelfoam within the mastoid posteriorly, and then filled the remainder of the | | cavity with ointment. The skin incision was then closed using 4-0 Vicryl suture in a | | buried subcuticular fashion, and then Steri-Strips and Mastisol were applied. This was | | followed by a large compressive mastoid dressing. The patient was awakened from | | anesthesia, extubated, and taken to recovery room in stable condition. There were no | | complications.Willie Plunkett, NERY/NELSYD: 12/22/2013 17:21:43DT: 12/22/2013 | | 18:57:53Job #: [id number] | |FMMed/JONOL | | | | | | /[id number] | + + CAPILLARY BLOOD GLUCOSE (NO CHG), POC (12/22/2013 5:49 PM PDT) + +---------+ + + + | Component | Value | Ref Range | Performed | Pathologist | | | | | At | Signature | + +---------+ + + + | BLOOD | 104 (H) | 60 - 99 mg/dL | [...] + + + | [facility] | [address] | [place], [place] | | | [facility] | [address] | [address] | | | TESTS | | | | + + + + + CAPILLARY BLOOD GLUCOSE (NO CHG), POC (12/22/2013 12:51 PM PDT) + +-------+ + + + | Component | Value | Ref Range | Performed | Pathologist | | | | | At | Signature | + +-------+ + + + | BLOOD | 98 | 60 - 99 mg/dL | [facility] [...] [facility] | [address] | [place], [place] | | | [facility] | [address] | [address] | | | TESTS | | | | + + + + + SURGICAL PATHOLOGY (12/22/2013) + + + + + + | Component | Value | Ref Range | Performed | Pathologist | | | | | At | Signature | + + + + + + | SURGICAL | SOURCE OF SPECIMEN:A | | [facility] | | | PATHOLOGY | Right ear | | DEPARTMENT | | | | cholesteatoma | | OF | | | | Final Pathologic | | PATHOLOGY | | | | Diagnosis:Right ear, | | | | | | excision: - | | | | | | Cholesteatoma | | | | | | Case seen by:Hector | | | | | | Adelaida Cook/Surgical | | | | | | Pathology ResidentPeter | | | | | | Adelaida Jacobo, | | | | | | Ph.D./PathologistT:12/26 | | | | | | /rdl Clinical | | | | | | History:The patient is | | | | | | a 48-year-old male with | | | | | | right ear | | | | | | cholesteatoma. | | | | | | Gross | | | | | | Description:Received is | | | | | | 1 specimen fresh in a | | | | | | container labeled with | | | | | | the patient | | | | | | name(initials [facility]) and | | | | | | "right ear | | | | | | cholesteatoma." Recei | | | | | | marcell are 3 | | | | | | irregular,unoriented, | | | | | | soft, red-benz tissues | | | | | | measuring 1.4 x 1 x 0.1 | | | | | | cm in aggregate.The | | | | | | entire specimen is | | | | | | wrapped and | | | | | | submitted. | | | | | | Cassette Index:A1, | | | | | | wrappedKRK:tp My | | | | | | electronic signature | | | | | | indicates that I have | | | | | | personally reviewed | | | | | | alldiagnostic slides, | | | | | | the gross and/or | | | | | | microscopic portion of | | | | | | thisreport and | | | | | | formulated the final | | | | | | diagnosis. | | | | | | Rendering | | | | | | Diagnostician: Cristofer | | | | | | Donnell Son | | | | | | Ph.D.PathologistElectron | | | | | | icamarta Signed | | | | | | 12/26/2013 2:44PM | | | | + + + + + + + + | Specimen | + + | | + + + + + + + | Performing | Address | City/State/Zipcode | Phone Number | | Organization | | | | + + + + + | [facility] | [address] | [place] [address] | | | PATHOLOGY | [address] | | | + + + + + documented in this encounter Visit Diagnoses Not on filedocumented in this encounter Administered Medications + +--------+ + +------+------+ | Medication Order | MAR | Action | Dose | Rate | Site | | | Action | Date | | | | + +--------+ + +------+------+ | acetaminophen (TYLENOL) tablet | Given | 12/23/19 | 1,000 mg | | | | 1,000 mg 1,000 mg, oral, ONCE, 1 | | 14 2:53 | | | | | dose, Lindsay 12/22/13 at 1530 | | PM PDT | | | | + +--------+ + +------+------+ + +---+ | | | + +---+ | acetaminophen (TYLENOL) tablet | | | 1 dose, Starting Lindsay 12/22/13 at | | | 1448, Until Lindsay 12/22/13 at 1453 | | + +---+ | | | + +---+ + +-------+ +--------+---+---+ | albuterol 0.083% | Given | 12/23/19 | 2.5 mg | | | | (PROVENTIL,VENTOLIN) 2.5 mg /3 mL | | 14 3:45 | | | | | (0.083 %) nebulizer solution 1 | | PM PDT | | | | | dose, Starting Lindsay 12/22/13 at | | | | | | | 1539, Until Lindsay 12/22/13 at 1545 | | | | | | + +-------+ +--------+---+---+ +---+---+ | | | +---+---+ + +-------+ + +---+---+ | HYDROcodone-acetaminophen | Given | 12/23/19 | 1 tablet | | | | (NORCO) 5-325 mg tablet 1-2 | | 14 6:05 | | | | | tablet 1-2 tablet, oral, EVERY 4 | | PM PDT | | | | | HOURS NEEDED, Starting Lindsay | | | | | | | 12/22/13 at 1704, Until Fri | | | | | | | 12/23/13 at 0033, pain | | | | | | + +-------+ + +---+---+ + +---+ | | | + +---+ | HYDROcodone-acetaminophen | | | (NORCO) 5-325 mg tablet 1 dose, | | | Starting Lindsay 12/22/13 at 1801, | | | Until Lindsay 12/22/13 at 1805 | | + +---+ | | | + +---+ + +-------+ +-------+---+---+ | hydrOXYzine pamoate (VISTARIL) | Given | 12/23/19 | 25 mg | | | | capsule 25 mg 25 mg, oral, ONCE, | | 14 3:03 | | | | | 1 dose, [facility] 12/22/13 at 1515 | | PM PDT | | | | + +-------+ +-------+---+---+ +---+---+ | | | +---+---+ + +---------+ + + +---+ | lactated ringers IV 10 mL/hr, | New Bag | 12/23/19 | 10 mL/hr | 10 mL/hr | | | intravenous, PROCEDURE | | 14 12:57 | | | | | CONTINUOUS, Starting Thu12/22/13 | | PM PDT | | | | | at 1245, Until Thu12/23/13 at | | | | | | | 0033 | | | | | | + +---------+ + + +---+ +---+---+ | | | +---+---+ + +---------+ +------+---+---+ | ondansetron (ZOFRAN) injection | New Bag | 12/23/19 | 4 mg | | | | 4 mg 4 mg, intravenous, ONCE, 1 | | 14 12:56 | | | | | dose, [facility] 12/22/13 at 1330 | | PM PDT | | | | + +---------+ +------+---+---+ + +---+ | | | + +---+ | ondansetron (ZOFRAN) injection | | | 1 dose, Starting Lindsay 12/22/13 at | | | 1250, Until Lindsay 12/22/13 at 1256 | | + +---+ | | | + +---+ + + + +---------+---+---+ | scopolamine (TRANSDERM-SCOPE) | Applied | 12/23/19 | 1 patch | | | | 1.5 mg 1 patch 1 patch, | Patch | 14 12:57 | | | | | transdermal, ONCE, 1 dose, Lindsay | | PM PDT | | | | | 12/22/13 at 1245 | | | | | | + + + +---------+---+---+ + +---+ | | | + +---+ | scopolamine (TRANSDERM-SCOPE) | | | 1.5 mg 1 dose, Starting Lindsay | | | 12/22/13 at 1248, Until Fri | | | 12/23/13 at 0033 | | + +---+ | | | + +---+ documented in this encounter
--- OUTSIDE RECORDS SUMMARY | ~2019-04-25 | XMS | Encounter Summary ---
Demographics + + + | Address | [address] | | | [place] [address] | + + + | Home Phone [...] [place] | | | | | [address] | | + + + + + Care Team Providers + +------+ + | Care Sprinkler Worker Name | Role | Phone | + +------+ + | Jaison Chávez MD | PCP | | + +------+ + Encounter Details +--------+ + + + + | Date | Type | Department | Care Team | Description | +--------+ + + + + | 05/01/ | Results | NON[facility] | Marion Rees, | | | 2007 | Only | Department | MARY Walker | | | | | | [place] [facility] | [facility] | | | [facility] [address] | | | | | [address] [place], | | | | | | [place] [address] | | | | | | [phone] | | | | | | | [...] + + | 04/29/ | Diagnostic | Wood Barker | Marce Meyer | | | 2019 | Visit | | Eve Briseno [address] | | | | | | [address] | | | | | | [place], [place] | | | | | | [address] | | +--------+ + + + + documented as of this encounter Procedures + +--------+ + + + | Procedure Name | Priori | Date/Time | Associated Diagnosis | Comments | | | ty | | | | + +--------+ + + + | BASIC METABOLIC SET | Routin | 05/01/2008 | | Results for this | | (NA, K, CL, TCO2, | e | 2:41 PM | | procedure are in the | | BUN, CR, GLU, CA) | | PDT | | results section. | + +--------+ + + + documented in this encounter Results BASIC METABOLIC SET (NA, K, CL, TCO2, BUN, CR, GLU, CA) (05/01/2008 2:41 PM PDT) + + + + + [...] + + + + | POTASSIUM, | 3.4 (L) | 3.5 - 5.2 MEQ/L | [...] + + + | ANION GAP | 11.4 | 8 - 16 MEQ/L | [facility] | | | | | | [facility] | | | | | | [facility] | | + + + + + + | GLUCOSE, | 115 (H) | 70 - 105 MG/DL | [...] + + + + | BUN/CREATIN | 12 | 6 - 20 RATIO | [facility] [...] + + + + | FASTING? | 3 HR PC | HR | [facility] | | | [...] [facility] | And | [place] [address] | | | [facility] | [place] | | | + + + + + documented in this encounter Visit Diagnoses Not on filedocumented in this encounter"
--- OUTSIDE RECORDS SUMMARY | ~2019-04-25 | XMS | Encounter Summary ---
Demographics + + + | Address | [address] | | | [place] [address] | + + + | Home Phone [...] [place] | | | | | [address] | | + + + + + Care Team Providers + +------+ + | Care Can Tender Name | Role | Phone | + +------+ + | Jaison Chávez MD | PCP | | + +------+ + Encounter Details +--------+ + + + + | Date | Type | Department | Care Team | Description | +--------+ + + + + | 07/22/ | Documentati | Otolaryngology | Mahnaz Chávez, | | | 2012 | on | Cochlear Services | [facility] [address] | | | | | [address] | [address] | | | | | Toya Spencer Mailcode: | [place], [place] | | | | | [address] Phys[address] | [address] | | | | | [place], | | | | | | [place] [address] | | | | | | [phone] | | | +--------+ + + + [...] + + | 04/29/ | Diagnostic | Tissue Coordinator | Marce Meyer | | | 2019 | Visit | | Eve Briseno [address] | | | | | | [address] | | | | | | [place], [place] | | | | | | [address] | | +--------+ + + + + documented as of this encounter Visit Diagnoses Not on filedocumented in this encounter"
--- OUTSIDE RECORDS SUMMARY | ~2019-04-25 | XMS | Encounter Summary ---
Demographics + + + | Address | [address] | | | [place] [address] | + + + | Home Phone [...] [place] | | | | | [address] | | + + + + + Care Team Providers + +------+ + | Care Polymerization Supervisor Name | Role | Phone | + +------+ + | Maurice Zelaya MD | PCP | | + +------+ + Encounter Details +--------+ + + + + | Date | Type | Department | Care Team | Description | +--------+ + + + + | 09/28/ | Ancillary | Registration [address] | Jose Franco, | | | 2007 | Registratio | [address] | [address] [place] [address] | | | | [address] | [address] Mailcode: [id number] | [address] | | | | | [place], [place] | [place] [address] | | | | | [address] | [phone] | | | | | [phone] | (Fax) | | +--------+ + + [...] + + | 04/29/ | Diagnostic | Market Basket Maker | Marce Meyer | | | 2019 | Visit | | Eve Briseno [address] [facility] | | | | | | [address] | | | | | | [place], [place] | | | | | | [address] | | +--------+ + + + + documented as of this encounter Visit Diagnoses Not on filedocumented in this encounter"
--- OUTSIDE RECORDS SUMMARY | ~2019-04-25 | XMS | Encounter Summary ---
Demographics + + + | Address | [address] | | | [place] [address] | + + + | Home Phone [...] [place] | | | | | [address] | | + + + + + Care Team Providers + +------+ + | Care Associate Director Of Biostatistics Name | Role | Phone | + +------+ + | Maurice Zelaya MD | PCP | | + +------+ + Reason for Visit Diagnostic Testing (Routine) +--------+--------+ + + + + | Status | Reason | Specialty | Diagnoses / | Referred By | Referred To | | | | | Procedures | Contact | Contact | +--------+--------+ + + + + | Closed | | Radiology | Diagnoses | Luke | [address] Scan | | | | | Recurrent | Ayana Jovel MD | s [address] | | | | | ventral | [address] | [address] | | | | | hernia | [address] | Toya Spencer | | | | | Procedures | [place], [place] | Mailcode: | | | | | CT ABDOMEN | [address] | [address] [facility] | | | | | AND PELVIS | Phone: | Hospital | | | | | WWO IV | [phone] | [place], [place] | | | | | CONTRAST IN | Fax: | [phone] | | | | | CT ABD&PELV | [phone] | Phone: | | | | | 1+ | | [phone] | | | | | SECTION/REGN | | Fax: | | | | | S | | [phone] | +--------+--------+ + + + + Encounter Details +--------+ + + + + | Date | Type | Department | Care Team | Description | +--------+ + + + + | 06/04/ | Hospital | Radiology/Imaging | | | | 2015 | Encounter | Lab at [facility] [address] | | | | | | [place] Mailcode: | | | | | | [facility] | | | | | | [facility], | | | | | | Building [address], 3rd | | | | | | Floor [place], [place] | | | | | | [address] | | | | | | [phone] | | | +--------+ + + + [...] + + +---------+ + + | albuterol 0.083% | Inhale. | | 0 | | | | 2.5 mg /3 mL (0.083 | | | | | | | %) inhalation | | | | | | | solution for | | | | | | | nebulization | | | | | | + [...] + + + +---------+ + + | arformoterol 15 | Inhale. | | 0 | | | | mcg/2 mL inhalation | | | | | | | solution for | | | | | | | nebulization | | | | | | + + + +---------+ + + | Aspirin 81 mg Oral | Take 1 Tab by mouth | 90 Tab | 3 | 05/21/20 | | | tablet | once daily. | | | 12 | | + + + +---------+ + + | atorvastatin 40 mg | Take by mouth. | | 0 | 02/01/20 | | | oral tablet | | | | 16 | | + + + +---------+ + [...] + + + +---------+ + + | doxazosin 4 mg | Take by mouth. | | 0 | | | | oral tablet | | | | | | + + + +---------+ + + | escitalopram | Take by mouth. | | 0 | | | | oxalate 10 mg oral | | | | | | | tablet | | | | | | + + + +---------+ + + | escitalopram | | | 0 | 16 | | | oxalate 20 mg oral | | | | 16 | | | tablet | | | [...] + + +---------+ + + | LORazepam 2 mg | | | 0 | 03/10/20 | | | oral tablet | | | | 16 | | + + + +---------+ + + | losartan 50 mg | Take by mouth. | | 0 | 04/11/20 | | | oral tablet | | | | 16 | | + + + +---------+ + + | lurasidone | Take by mouth once | | 0 | | | | (LATUDA) 40 mg Oral | daily. | | | | | | tablet | | | | | | + + + +---------+ + + | lurasidone 60 mg | Take by mouth. | | 0 | | | | oral tablet | | | | | | + + + +---------+ + + | metFORMIN 1,000 mg | Take 1,000 mg by | | 0 | | | | oral tablet | mouth once daily. | | | | | + + + +---------+ + + | mirtazapine 15 mg | Take 15 mg by mouth | | 0 | [...] + + | 04/29/ | Diagnostic | [employer] | Marce Meyer | | | 2019 | Visit | | Eve Briseno [address] | | | | | | [address] | | | | | | [place] | | | | | | [address] | | +--------+ + + + + documented as of this encounter Procedures + +--------+ + + + | Procedure Name | Priori | Date/Time | Associated Diagnosis | Comments | | | ty | | | | + +--------+ + + + | PROCEDURE NOTE | Routin | 06/10/2016 | | Results for this | | | e | 8:56 AM | | procedure are in the | | | | PST | | results section. | + +--------+ + + + | CREATININE, POC | Routin | 06/04/2016 | Recurrent ventral | Results for this | | | e | 12:53 PM | hernia | procedure are in the | | | | PST | | results section. | + +--------+ + + + documented in this encounter Results PROCEDURE NOTE (06/10/2016 8:56 AM PST)CREATININE, POC (06/04/2016 12:53 PM PST) + +-------+ + + + | Component | Value | Ref Range | Performed | Pathologist | | | | | At | Signature | + +-------+ + + + | CREATININE, | 0.9 | 0.7 - 1.3 mg/dL | [facility], | | | POC | | | [...] + + | MARKELL DARLING | [address] | [place] [address] | | | OF CARE TESTS | | | | + + + + + documented in this encounter Visit Diagnoses + + | Diagnosis | + + | Recurrent ventral hernia Incisional hernia without mention of obstruction or gangrene | + + documented in this encounter"
--- OUTSIDE RECORDS SUMMARY | ~2019-04-25 | XMS | Encounter Summary ---
Demographics + + + | Address | [address] | | | [place] [address] | + + + | Home Phone [...] [place] | | | | | [address] | | + + + + + Care Team Providers + +------+ + | Care Heating Unit Mechanic Name | Role | Phone | + +------+ + | Jaison Chávez MD | PCP | | + +------+ + Encounter Details +--------+ + + + + | Date | Type | Department | Care Team | Description | +--------+ + + + + | 09/25/ | Results | NON-[facility] | Marion Rees, | | | 2008 | Only | Department | [facility] | | | | | | [place] [facility] | | | | | [facility] [address] | | [address] [place], | | | | | | [place] [address] | | | | | | [phone] | | | | | | | [...] + + | 04/29/ | Diagnostic | Cash Person | Marce Meyer | | | 2019 | Visit | | Eve Briseno [address] | | | | | | [address] | | | | | | [place], [place] | | | | | | [address] | | +--------+ + + + + documented as of this encounter Procedures + +--------+ + + + | Procedure Name | Priori | Date/Time | Associated Diagnosis | Comments | | | ty | | | | + +--------+ + + + | CBC W/DIFF, REFLEX | Routin | 09/25/2008 | | Results for this | | | e | 5:16 PM | | procedure are in the | | | | PST | | results section. | + +--------+ + + + | BASIC METABOLIC SET | Routin | 09/25/2008 | | Results for this | | (NA, K, CL, TCO2, | e | 5:16 PM | | procedure are in the | | BUN, CR, GLU, CA) | | PST | | results section. | + +--------+ + + + documented in this encounter Results CBC W/DIFF, REFLEX (09/25/2008 5:16 PM PST) + + + + + + | Component | Value | Ref Range | Performed | Pathologist | | | | | At | Signature | + + + + + + | WHITE BLOOD | 15.0 (H) | 4.3 - 11.0 X10 | [facility] | | | CELL COUNT | | 3/ul | A [facility] | | | | | | C[facility] | | + + + + + + | WBC, | CLEANER FURNITURE | X10 3/uL | [facility] | | | ADJUSTED | | | A [facility] | | | | | | CENTER | | + + + + + + | HEMOGLOBIN | 8.3 (L) | 12.0 - 16.0 | [facility] | | | | | g/dL | A [facility] | | | | | | CENTER | | + + + + + + | RED BLOOD | 2.94 (L) | 4.7 - 6.1 X10 | [facility] | | | CELL COUNT | | 6/uL | A [facility] | | | | | | CENTER | | + + + + + + | HEMATOCRIT | 24.5Comment: @Avg | 40.0 - 54.0 % | [facility] | | | | 24.7,24.23 = 24.47 | | A MEDICAL | | | | 09/25/08 [address] | | CENTER | | + + + + + + | MCV | 83.9 | 82 - 100 fl | [facility] [...] + + + + | MCHC | 33.6 | 32 - 36 g/dL | [facility] [...] + + + + | PLATELET | 338 | 150 - 450 X10 3 | [...] + + + + | NEUTROPHIL | 56.8 | 40 - 80 % | [facility] | | | % | | | A MED[facility] | | | | | | CENTER | | + + + + + + | LYMPHOCYTE | 19.6 | 10 - 45 % | [facility] | | | % | | | A [facility] | | | | | | CENTER | | + + + + + + | EOS % | 3.3 | 0 - 5 % | [facility] | | | | | | A [facility] | | | | | | CENTER | | + + + + + + | BASO % | 8.0 (H) | 0 - 1 % | [facility] | | | | | | A [facility] | | | | | | CENTER | | + + + + + + | MONOCYTE % | 12.3 (H) | 2 - 10 % | [facility] | | | | | | A [facility] | | | | | | CENTER | | + + + + + + | BANDS % | CLEANER FURNITURE | 0 - 7 % | [facility] | | | | | | A [facility] | | | | | | CENTER | | + + + + + + | CBC | ERROR FLAGS -HEMATOLOGY | | [facility] | | | COMMENTS | INSTR. CLEANER FURNITURE | | A MEDICAL | | | | | | CENTER | | + + + + + + | CBC | DEFINITIVE FLAG CLEANER FURNITURE | | [facility] | | | COMMENTS [...] + + + + | DIFF | CLEANER FURNITURE | | [facility] | | | COMMENTS | | | A [facility] | | | | | | CENTER | | + + + + + + | NEUTRO % | 60 | 40 - 70 % | [facility] | | | | | | A [facility] | | | | | | CENTER | | + + + + + + | LYMPHOCYTE | 27 | 10 - 45 % | [facility] | | | %, MANUAL | | | A MEDICAL | | | | | | CENTER | | + + + + + + | MONOCYTE%, | 11 (H) | 2 - 10 % | [...] + + + + | BASOPHIL%, | CLEANER FURNITURE | 0 - 1 % | [facility] | | | MANUAL | | | A MEDICAL | | | | | | CENTER | | + + + + + + | REACTIVE | CLEANER FURNITURE | 0.0 - 4.0 % | [facility] | | | LYMPHS % | | | A MEDICAL | | | | | | CENTER | | + + + + + + | BANDS % | CLEANER FURNITURE | 0 - 7 % | [facility] | | | | | | A [facility] | | | | | | CENTER | | + + + + + + | METAMYELOCY | CLEANER FURNITURE | 0 - 0 % | [facility] | | | BRANDON % | | | A MEDICAL | | | | | | CENTER | | + + + + + + | MYELOCYTES | CLEANER FURNITURE | 0 - 0 % | [facility] | | | % | | | A [facility]ICAL | | | | | | CENTER | | + + + + + + | PROMYELOCYT | CLEANER FURNITURE | 0 - 0 % | [facility] | | | ES % | | | A MEDICAL | | | | | | CENTER | | + + + + + + | BLASTS | CLEANER FURNITURE | 0 - 0 % | [facility] [...] + + + + | WBC | MOD REACTIVE LYMPHS | NORMAL | [facility] | | | [...] + + + + | NUCLEATED | CLEANER FURNITURE | | [facility] | | | RBCS | | | A MEDICAL | | | | | | CENTER | | + + + + + + | GIANT PLT | CLEANER FURNITURE | | [facility] | | | | [...] + + | [facility] | [facility] [address] | [place] [address] | | | [facility]ICAL CENTER | Streets | | | + + + + + BASIC METABOLIC SET (NA, K, CL, TCO2, BUN, CR, GLU, CA) (09/25/2008 5:16 PM PST) + + + + + + | Component | Value | Ref Range | Performed | Pathologist | | | | | At | Signature | + + + + + + | SODIUM, | 132 (L) | 137 - 146 MEQ/L | [...] + + + | ANION GAP | 12.3 | 8 - 16 MEQ/L | [facility] | | | | | | A [facility] | | | | | | CENTER | | + + + + + + | GLUCOSE, | 87 | 70 - 105 MG/DL | [facility] [...] + + + + | BUN/CREATIN | 16 | 6 - 20 RATIO | [facility] | | | INE RATIO | | | A MEDICAL | | | | | | CENTER | | + + + + + + | CALCIUM, | 8.8 | 8.5 - 10.8 | [facility] | [...] | [address] | [place] [address] | | | [facility] [place] | [facility] | | | + + + + + documented in this encounter Visit Diagnoses Not on filedocumented in this encounter"
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
--- OUTSIDE RECORDS SUMMARY | ~2019-04-25 | XMS | Encounter Summary ---
Demographics + + + | Address | [address] | | | [place] [address] | + + + | Home Phone [...] [place] | | | | | [address] | | + + + + + Care Team Providers + +------+ + | Care Reed Polisher Name | Role | Phone | + [...] | | | [address] | [place] [address] | | | | | Mailcode: PV01 | | | | | | Physician's Chris | | | | | | [place], [place] | | | | | | [address] | | | | | | [phone] | | | +--------+ + + + [...] + + | 04/29/ | Diagnostic | Blanket Cutter Hand | Marce Meyer | | | 2019 | Visit | | Eve Briseno [address] | | | | | | [address] | | | | | | [place], [place] | | | | | | [address] | | +--------+ + + + + [...] + + + + | [facility] | [address] | [place] [address] | | | PATHOLOGY | VASQUEZ RAMIREZ | | | + + + + + | [facility] | [address] | [place] [address] | | | PATHOLOGY | VASQUEZ RAMIREZ | | | + + + + + documented in this encounter Visit Diagnoses Not on filedocumented in this encounter
--- OUTSIDE RECORDS SUMMARY | ~2019-04-25 | XMS | Encounter Summary ---
Demographics + + + | Address | [address] | | | [place] [address] | + + + | Home Phone [...] [place] | | | | | [address] | | + + + + + Care Team Providers + +------+ + | Care Carpenter Railcar Name | Role | Phone | + [...] | +--------+ + + + + | 12/21/ | Abstract | Digestive Health | Clinic, Surgery | Medical Records | | 2012 | | [place] [facility] [address] | | Review | | | | [address] | | | | | | Mailcode: [place] | | | | | | [facility] | | | | | | [facility] | | | | | | [place], [place] | | | | | | [address] | | | | | | [phone] | | | +--------+ + + + [...] + + | 04/29/ | Diagnostic | Preschool Paraprofessional | Marce Meyer | | | 2019 | Visit | | Eve Briseno [address] [facility] [address] | | | | | | [address] | | | | | | [place] | | | | | | [address] | | +--------+ + + + + documented as of this encounter Visit Diagnoses Not on filedocumented in this encounter"
--- OUTSIDE RECORDS SUMMARY | ~2019-04-25 | XMS | Encounter Summary ---
Demographics + + + | Address | [address] | | | [place] [address] | + + + | Home Phone [...] [place] | | | | | [address] | | + + + + + Care Team Providers + +------+ + | Care Book Salesman Name | Role | Phone | + [...] Closed | | Radiology | Diagnoses | Dimitrios | Mark Ct Scan | | | | | | Willie Valente MD | s [address] | | | | | [place] | [address] | [address] | | | | | marta | Haile | Toya Spencer | | | | | Procedures | Toya Spencer | Mailcode: | | | | | [facility] [place] | [place], [place] | [address] [facility] | | | | | B[place]IGN | [address] | Hospital | | | | | DISEASE WO | | [place], [place] | | | | | | | [address] | | | | | | | Phone: | | | | | | | [phone] | | | | | | | Fax: | | | | | | | [phone] | +--------+--------+ + + + + Encounter Details +--------+ + + + + | Date | Type | Department | Care Team | Description | +--------+ + + + + | 02/21/ | Handbell Choir Director | Otolaryngology | Willie Plunkett, | [place] | | 2012 | | Otology Services at | MD | (Primary Dx) | | | | [facility] [address] | | | | | | [address] | | | | | | Mailcode: PV01 | | | | | | Physician's Chris | | | | | | [place], [place] | | | | | | [address] | | | | | | [phone] | | | +--------+ + + + [...] + + | 04/29/ | Diagnostic | Change House Attendant | Mitch Marce | | | 2019 | Visit | | K, AuD [address] [facility] | | | | | | [address] | | | | | | [place], [place] | | | | | | [address] | | +--------+ + + + + documented as of this encounter Results CT [place] BENIGN DISEASE WO (03/23/2013 2:25 PM PDT) + + + + + + | Component | Value | Ref Range | Performed | Pathologist | | | | | At | Signature | + + + + + + | CT [facility] | EXAM: CT scan of the | | | | | BENIGN | temporal bones without | | | | | DISEASE WO | contrast HISTORY: | | | | | | Cholesteatoma TECHNIQUE: | | | | | | 1 mm thick axial and | | | | | | coronal images through | | | | | | the temporal bones | | | | | | arereviewed with soft | | | | | | tissue and bone | | | | | | algorithms. No IV | | | | | | contrast. COMPARISON: CT | | | | | | of 12/03/2012 FINDINGS: | | | | | | Right temporal bone: | | | | | | Again noted are the | | | | | | postoperative changes | | | | | | from aright canal wall | | | | | | down mastoidectomy with | | | | | | slight decrease in the | | | | | | soft tissuethickening | | | | | | within the mastoidectomy | | | | | | site. There is an | | | | | | increase in the amountof | | | | | | soft tissue within the | | | | | | middle ear especially | | | | | | the anterior | | | | | | portion. No newareas | | | | | | of osseous erosion are | | | | | | noted. The tegmen | | | | | | tympani and roof of | | | | | | themastoidectomy site | | | | | | are intact. The inner | | | | | | ear structures and | | | | | | internal auditorycanals | | | | | | appear intact. Left | | | | | | temporal bone: The left | | | | | | cochlear implant remains | | | | | | unchanged in | | | | | | positionwith the | | | | | | implants and into the | | | | | | basal turn of the | | | | | | cochlea. The left | | | | | | canal wallup | | | | | | mastoidectomy is again | | | | | | noted. The | | | | | | mastoidectomy site and | | | | | | middle ear appearwell | | | | | | aerated with no soft | | | | | | tissue masses or fluid. | | | | | | IMPRESSION: Increase in | | | | | | the amount of soft | | | | | | tissue within the right | | | | | | middle ear,especially | | | | | | the anterior | | | | | | portion. Otherwise no | | | | | | significant change. | | | | | | Attending Radiologists: | | | | | | YONY MCNEILL MDAuthor: | | | | | | YONY MCNEILL MD I have | | | | | | personally viewed this | | | | | | procedure/exam, reviewed | | | | | | this report, and | | | | | | madechanges to it where | | | | | | appropriate. | | | | | | Final/Electronically | | | | | | signed / YONY | | | | | | OSITO 03/23/2013 19:54 | | | | | | PM | | | | + + [...]
--- OUTSIDE RECORDS SUMMARY | ~2019-04-25 | XMS | Encounter Summary ---
Demographics + + + | Address | [address] | | | [place] [address] | + + + | Home Phone [...] [place] | | | | | [address] | | + + + + + Care Team Providers + +------+ + | Care Director Child Name | Role | Phone | + [...] + + | 03/30/ | Hospital | [facility] [address] | Willie Plunkett, | | | 2012 | Encounter | [address] | | | | | | [facility] | | | | | | Pa[place] Perez | | | | | | ([facility]) | | | | | | [place], [place] | | | | | | [address] | | | | | | [phone] | | | +--------+ + + + [...] + + | 04/29/ | Diagnostic | Superintendent Recreation | Marce Meyer | | | 2019 | Visit | | Eve Briseno [address] [facility] | | | | | | [address] | | | | | | [place], [place] | | | | | | [address] | | +--------+ + + + + [...] + + + | AILYN LAUGHLIN | [address] | [place], [place] | | | [facility] | [address] | [address] | | | TESTS | | | | + + + + + documented in this encounter Visit Diagnoses Not on filedocumented in this encounter
--- OUTSIDE RECORDS SUMMARY | ~2019-04-25 | XMS | Encounter Summary ---
Demographics + + + | Address | [address] | | | [place] [address] | + + + | Home Phone [...] [place] | | | | | [address] | | + + + + + [...] | | | | | | [place] [address] | | | | | | [phone] | | | | | | | [...] + | 04/29/ | Diagnostic | It Senior Analyst | Marce Meyer | | | 2019 | Visit | | Eve Briseno [address] [facility] | | | | | | [address] | | | | | | [place], [place] | | | | | | [address] | | +--------+ + + + + documented as of this encounter Procedures + +--------+ + + + | Procedure Name | Priori | Date/Time | Associated Diagnosis | Comments | | | ty | | | | + +--------+ + + + | UPPER EXTREMITY | Routin | 03/28/2010 | | Results for this | | WITHOUT [id number] | e | 2:42 PM | | [...]
--- OUTSIDE RECORDS SUMMARY | ~2019-04-25 | XMS | Encounter Summary ---
Demographics + + + | Address | [address] | | | [place] [address] | + + + | Home Phone [...] [place] | | | | | [address] | | + + + + + Care Team Providers + +------+ + | Care Crop Duster Helper Name | Role | Phone | [...] as of this encounter Progress Notes Interface, Head Chopper In - 04/08/2005 5:05 AM PDT [id number] [facility] Date: 04/02/2005 Clinic: Otolaryngology [...] where on one list of 53 words, Egdar was able to identify 7 words or 13%, and on a second list, he could identify no words. Edgar is extremely pleased with the benefits he is getting. Plan: Since Edgar was so far away, we have decided that he would return to clinic on an as needed basis. Haroon Poe Ed.D. / MALORIE [id number] / [id number] / [id number] / Electronically signed by Hraoon Poe 04-07-2005 11:54:26 AM documented i n this encounter Plan of Treatment +--------+ + + + + | Date | Type | Specialty | Care Team | Description | +--------+ + + + + | 04/29/ | Diagnostic | Aerial Sprayer | Marce Meyer | | | 2019 | Visit | | Eve Briseno [address] [facility] | | | | | | [address] | | | | | | [place], [place] | | | | | | [address] | | +--------+ + + + + documented as of this encounter Visit Diagnoses Not on filedocumented in this encounter"
--- OUTSIDE RECORDS SUMMARY | ~2019-04-25 | XMS | Encounter Summary ---
Demographics + + + | Address | [address] | | | [place] [address] | + + + | Home Phone [...] [place] | | | | | [address] | | + + + + + Care Team Providers + +------+ + | Care Brand Ambassador Name | Role | Phone | + +------+ + | Maurice Zelaya MD | PCP | | + +------+ + Reason for Visit + + + | Reason | Comments | + + + | Question | | + + + Encounter Details +--------+ + + + + | Date | Type | Department | Care Team | Description | +--------+ + + + + | 09/10/ | Telephone | Otolaryngology | Pascual Pace, | Question | | 2016 | | Audiology Services | YULIA Sewell-A [address] | | | | | at [facility] [address] | [address] [facility] | | | | | [address] | Rd [place], [place] | | | | | Mailcode: PV[address] | [id number] | | | | | Physician's Chris | | | | | | [place], [place] | | | | | | [address] | | | | | | [phone] | | | +--------+ + + + [...] + + | 04/29/ | Diagnostic | Screw Driver Operator | Marce Meyer | | | 2019 | Visit | | Eve Briseno [address] [facility] | | | | | | [address] | | | | | | [place] | | | | | | [address] | | +--------+ + + + + documented as of this encounter Visit Diagnoses Not on filedocumented in this encounter"
--- OUTSIDE RECORDS SUMMARY | ~2019-04-25 | XMS | Encounter Summary ---
Demographics + + + | Address | [address] | | | [place] [address] | + + + | Home Phone [...] [place] | | | | | [address] | | + + + + + Care Team Providers + +------+ + | Care Clearing Distribution Clerk Name | Role | Phone | [...] | 2012 | | [facility] [address] | [address] | | | | | [place] | [facility] [place] | | | | | Mailcode: [place] | [address] | | | | | for Health and | [phone] | | | | | [facility] [address] | | | | | | [place], [place] | | | | | | [address] | | | | | | [phone] | | | +--------+ + + + [...] + + | 04/29/ | Diagnostic | Telepathist | Marce Meyer | | | 2019 | Visit | | Eve Briseno [address] [place] [address] | | | | | | [address] | | | | | | [place] | | | | | | [address] | | +--------+ + + + + documented as of this encounter Visit Diagnoses Not on filedocumented in this encounter"
--- OUTSIDE RECORDS SUMMARY | ~2019-04-25 | XMS | Encounter Summary ---
Demographics + + + | Address | [address] | | | [place] [address] | + + + | Home Phone [...] [place] | | | | | [address] | | + + + + + Care Team Providers + +------+ + | Care Patent Prosecution Attorney Name | Role | Phone | + [...] + | 12/22/ | Hospital | [facility] [address] | Willie Plunkett, | | | 2013 | Encounter | [address] | | | | | | [facility] | | | | | | Paola Perez | | | | | | ([facility] | | | | | | [place], [place] | | | | | | [address] | | | | | | [phone] | | | +--------+ + + + [...] office to get your questions answered: Call [phone] during business hours. Call [phone] after 5:00pm and weekends or holidays Call: [facility] Otolaryngology Resident at If you have any [...] + + | 04/29/ | Diagnostic | Plastic Mould Maker | Marce Meyer | | | 2019 | Visit | | K, AuD [address] [facility] | | | | | | [address] | | | | | | [place], [place] | | | | | | [address] | | +--------+ + + + + [...] 12/22/2013ttending | | Surgeon: Willie Plunkett MD Mandrel Press Hand(s): Rosmery Hernandez | | MD Juan Preop [...] 12/22/2013 17:21:43DT: 12/22/2013 | | 18:57:53Job #: [id number] | |FMMed/JONOL | | | | | | /[id number] | + + CAPILLARY BLOOD GLUCOSE (NO [...] + + + | AILYN LAUGHLIN | [address] | [place], [place] | | | MAKRELL BARKER OF [facility] | [address] | [address] | | | TESTS | | | [...] MARQUAM | [address] | [place], [place] | | | MARKELL BARKER OF CARE | [address] | [address] | | | TESTS | | | [...] | + + + + + | [facility] | [address] | [place] [address] | | | PATHOLOGY | [address] [...] | | | | | 1 dose, [facility] 12/22/13 at 1515 | | PM PDT [...] 12:56 | | | | | dose, [facility] 12/22/13 at 1330 | | PM PDT [...]
--- OUTSIDE RECORDS SUMMARY | ~2019-04-25 | XMS | Encounter Summary ---
Demographics + + + | Address | [address] | | | [place] [address] | + + + | Home Phone [...] [place] | | | | | [address] | | + + + + + Care Team Providers + +------+ + | Care Boiler Repair Supervisor Name | Role | Phone | + +------+ + | Jaison Chávez MD | PCP | | + +------+ + Encounter Details +--------+ + + + + | Date | Type | Department | Care Team | Description | +--------+ + + + + | 08/05/ | Documentati | Otolaryngology | Mahnaz Chávez, | | | 2013 | on | Cochlear Services | [facility] [address] | | | | | [address] | [address] | | | | | Toya Spencer Mailcode: | [place], [place] | | | | | [address] Physician's | [address] | | | | | [place], | | | | | | [place] [address] | | | | | | [phone] | | | +--------+ + + + [...] + + | 04/29/ | Diagnostic | Music Autographer | Marce Meyer | | | 2019 | Visit | | Eve Briseno [address] | | | | | | [address] | | | | | | [place], [place] | | | | | | [address] | | +--------+ + + + + documented as of this encounter Visit Diagnoses Not on filedocumented in this encounter"
--- OUTSIDE RECORDS SUMMARY | ~2019-04-25 | XMS | Encounter Summary ---
Demographics + + + | Address | [address] | | | [place] [address] | + + + | Home Phone [...] [place] | | | | | [address] | | + + + + + Care Team Providers + +------+ + | Care Drawing Machine Operator Name | Role | Phone | + +------+ + | Kerri Chavarria NP | PCP | | + +------+ + Encounter Details +--------+ + + + + | Date | Type | Department | Care Team | Description | +--------+ + + + + | 04/21/ | Abstract | Digestive Health | Clinic, Surgery | | | 2011 | | [place] [facility] [address] | | | | | | [address] | | | | | | Mailcode: [place] | | | | | | [facility] | | | | | | Healing, Building [address] | | | | | | [place], [place] | | | | | | [address] | | | | | | [phone] | | | +--------+ + + + [...] + + | 04/29/ | Diagnostic | Language Tutor | Marce Meyer | | | 2019 | Visit | | Eve Briseno [address] [facility] | | | | | | [address] | | | | | | [place] | | | | | | [address] | | +--------+ + + + + documented as of this encounter Visit Diagnoses Not on filedocumented in this encounter"
--- OUTSIDE RECORDS SUMMARY | ~2019-04-25 | XMS | Encounter Summary ---
Demographics + + + | Address | [address] | | | [place] [address] | + + + | Home Phone [...] [place] | | | | | [address] | | + + + + + Care Team Providers + +------+ + | Care Policy Officer Name | Role | Phone | + +------+ + | Maurice Zelaya MD | PCP | | + +------+ + Encounter Details +--------+ + + + + | Date | Type | Department | Care Team | Description | +--------+ + + + + | 06/04/ | Results | Registration [address] | Ayana Butler W, | | | 2015 | Only | [address] | [address] | | | | | Tj Mailcode: [id number] | [place], [place] | | | | | [place], [place] | [address] | | | | | [address] | [phone] | | | | | [phone] | | | +--------+ + + + [...] + + | 04/29/ | Diagnostic | Automotive Sales Manager | Marce Meyer | | | 2019 | Visit | | Finn, Eve [address] | | | | | | [address] | | | | | | [place], [place] | | | | | | [address] | | +--------+ + + + + documented as of this encounter Procedures + +--------+ + + + | Procedure Name | Priori | Date/Time | Associated Diagnosis | Comments | | | ty | | | | + +--------+ + + + | CT ABDOMEN AND | Routin | 06/04/2016 | | Results for this | | PELVIS W IV CONTRAST | e | 1:14 PM | | procedure are in the | | | | PST | | results section. | + +--------+ + + + documented in this encounter Results CT ABDOMEN AND PELVIS W IV CONTRAST (06/04/2016 1:14 PM PST) + + + + + + | Component | Value | Ref Range | Performed | Pathologist | | | | | At | Signature | + + + + + + | CT ABDOMEN | EXAM: CT of the abdomen | | | | | & PELVIS W | and pelvis with contrast | | | | | CONTRAST | HISTORY: Hernia | | | | | | COMPARISON: 12/03/12 | | | | | | TECHNIQUE: CT of the | | | | | | abdomen and pelvis with | | | | | | 150 mL of Omnipaque 300 | | | | | | non-ioniciodinated | | | | | | intravenous contrast. | | | | | | Coronal and sagittal | | | | | | reformats were reviewed. | | | | | | FINDINGS:LOWER THORAX: | | | | | | Left lower lobe scar | | | | | | LIVER: Diffuse fatty | | | | | | infiltration of the | | | | | | liver parenchyma. | | | | | | Stable, | | | | | | tinyhypodensities noted | | | | | | within the dome of the | | | | | | liver measuring | | | | | | approximately 6 mm(09/08) | | | | | | in segment 8 likely | | | | | | representing | | | | | | hemangiomas, which are | | | | | | stable.Granulomatous | | | | | | changes noted to the | | | | | | right lobe of the liver, | | | | | | also stable. No | | | | | | newliver lesions | | | | | | identified.BILIARY: | | | | | | Unremarkable.SPLEEN: | | | | | | Unremarkable.PANCREAS: | | | | | | Unremarkable. ADRENALS: | | | | | | Unremarkable.KIDNEYS/URE | | | | | | TERS: Mild to moderate | | | | | | perinephric stranding. | | | | | | No evidence | | | | | | ofobstruction..PELVIC | | | | | | ORGANS/BLADDER: | | | | | | Unremarkable. GI TRACT: | | | | | | No evidence of small | | | | | | bowel obstruction. No | | | | | | focal mass lesion. | | | | | | Normalappendix. No | | | | | | abnormal | | | | | | thickening.PERITONEUM: | | | | | | No free air or | | | | | | fluid.LYMPH NODES: 1 cm | | | | | | lymph node in the | | | | | | pericaval spaceVESSELS: | | | | | | Moderate atherosclerotic | | | | | | burden. No aneurysm. | | | | | | Contrast noted withinthe | | | | | | mesenteric vasculature. | | | | | | BONES AND SOFT TISSUES: | | | | | | Posterior changes | | | | | | status post ventral | | | | | | hernia repairidentified, | | | | | | with mesh in place. | | | | | | Interval development of | | | | | | 2 fat containinghernias | | | | | | as follows: Cephalad and | | | | | | left of midline is a | | | | | | fat containing | | | | | | herniawith a 3 cm neck | | | | | | measuring 4.7 x 1.7 cm. | | | | | | (40/1). Lateral to the | | | | | | mesh on theright is a | | | | | | second fat containing | | | | | | inguinal hernia with 3.5 | | | | | | cm neck measuring 3.5x | | | | | | 1.1 cm, with mild | | | | | | encroachment of | | | | | | underlying transverse | | | | | | colon withoutevidence of | | | | | | strangulation, or | | | | | | proximal obstruction. | | | | | | IMPRESSION:2, ventral | | | | | | hernias that are both | | | | | | fat containing, with | | | | | | minimal encroachment | | | | | | oftransverse colon | | | | | | within the right lateral | | | | | | hernia without evidence | | | | | | of proximalobstruction, | | | | | | or strangulation.Fatty | | | | | | liver. Attending | | | | | | Radiologists: BREANN | | | | | | KAT ROSARIOuthor: | | | | | | BREANN ROSARIO MD | | | | | | I personally reviewed | | | | | | the images and, if | | | | | | necessary, edited the | | | | | | report. I agreewith the | | | | | | report as now presented. | | | | | | | | | | | | Final/Electronically | | | | | | allie / BREANN | | | | | | ABRAHAM 06/04/2016 | | | | | | 13:34 PM | | | | + + [...]
--- OUTSIDE RECORDS SUMMARY | ~2019-04-25 | XMS | Encounter Summary ---
Demographics + + + | Address | [address] | | | [place] [address] | + + + | Home Phone [...] + + + | Author | [facility] | + + + | Organization | [facility] | + + + | Address | Unknown | + + + | Phone | Unavailable | + + + Support + + + + + | Name | Relationship | Address | Phone | + + + + + | Margarito Owusu | ECON | [address] | | | | | [place] | | | | | [address] | | + + + + + Care Team Providers + +------+ + | Care Room Service Waiter Name | Role | Phone | + +------+ + | Cee Triana MD | PCP | Unavailable | + +------+ + Encounter Details +--------+ + + + + | Date | Type | Department | Care Team | Description | +--------+ + + + + | 08/13/ | Hospital | Cardiac | Sjh, Car Ecg Tech | | | 2012 | Encounter | Non-Invasive Testing | [address] | | | | | at [facility] | [facility] | | | | | [address] | [place] [address] | | | | | [facility] | | | | | | Mailcode: [id number] | | | | | | [address] | | | | | | [facility] | | | | | | [place] [address] | | | | | | [phone] | | | +--------+ + + + [...] | | | | | | | release(DR/EC) | | | | | | + + + +---------+ + + documented as of this encounter Plan of Treatment +--------+ + + + + | Date | Type | Specialty | Care Team | Description | +--------+ + + + + | 04/29/ | Diagnostic | Millroom Supervisor | Marce Meyer | | | 2019 | Visit | | Eve Briseno [address] | | | | | | [address] | | | | | | [place], [place] | | | | | | [address] | | +--------+ + + + + [...] + + documented in this encounter Results 12 LEAD ECG (08/13/2012 2:02 PM PST) [...] view image for the detailed interpretation from [facility] results. | CARDIOLOGY | + + + + + + + + | Performing | Address | City/State/Zipcode | Phone Number | | Organization | | | | + + + + + | [facility] | [address] | [place], [place] | | | CARDIOLOGY | [address] | [address] | | + + + + + documented in this encounter Visit Diagnoses Not on filedocumented in this encounter
--- OUTSIDE RECORDS SUMMARY | ~2019-04-25 | XMS | Encounter Summary ---
Demographics + + + | Address | [address] | | | [place] [address] | + + + | Home Phone [...] [place] | | | | | [address] | | + + + + + Care Team Providers + +------+ + | Care Assistant Statistician Name | Role | Phone | + +------+ + | Cee Triana MD | PCP | Unavailable | + +------+ + Reason for Visit + + + | Reason | Comments | + + + | Ear problem | here for ear check and cleaning | + + + Office Visit - [...] | | | | | | [place], | | | | | | | [place] | | | | | | | [address] | +--------+--------+ + + + + Encounter Details +--------+---------+ + + + | Date | Type | Department | Care Team | Description | +--------+---------+ + + + | 07/07/ | Office | Otolaryngology | Willie Plunkett, | Chronic mastoiditis | | 2011 | Visit | Otology Services at | | (Primary Dx) | | | | [facility] [address] | | | | | | [address] | | | | | | Mailcode: [address] | | | | | | [facility] | | | | | | [place], [place] | | | | | | [address] | | | | | | [phone] | | | +--------+---------+ + + + [...] Instructions Patient Instructions Aruna Edwards MA - 07/07/2012 1:06 PM PSTMyChart is a great way to contact me if you have questions in between visits. If you are not already signed up for CEINThart there is information at the end of this After Visit Summary to help you get started . CEINThart is a great way to contact me if you have questions in between visits. If you are n ot already signed up for MyChart there is information at the end of this After Visit Summary to help you get started. documented in this encounter Progress Notes Willie Plunkett MD - 07/07/2012 1:20 PM PSTFormatting of this note might be different fro m the original. Clinic Date: 07/07/12 Clinic: Otology Clinic Primary Care Provider: Ender Wagoner MD History of Present Illness: Edgar is a 46 y.o. 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 He has been using the ear drops every now and then and the right ear is always draining. He has ruined many pillows. Current Outpatient Prescriptions Medication ALBUTEROL SULFATE, BULK, MISC Aspirin 81 mg Oral tablet CALCIUM CARBONATE (TUMS 500 ORAL) carBAMazepine (TEGRETOL) 200 mg Oral tablet chlorhexidine gluconate (HIBICLENS) 4 % Topical Liquid Cholecalciferol, Vitamin D3, (VITAMIN D3) 2,000 unit Oral capsule cyclobenzaprine (FLEXERIL) 10 mg Oral tablet docusate sodium (COLACE) 100 mg Oral capsule furosemide 10 mg Oral tablet gabapentin (NEURONTIN) 800 mg Oral tablet hydrochlorothiazide 25 mg Oral tablet HYDROcodone-acetaminophen (VICODIN) 5-500 mg Oral tablet ibuprofen 800 mg Oral tablet ipratropium (ATROVENT HFA) 17 mcg/actuation Inhalation HFA Aerosol Inhaler levothyroxine 25 mcg Oral tablet lisinopril 40 mg Oral tablet LORazepam (ATIVAN) 2 mg Oral tablet lovastatin 20 mg Oral tablet LURASIDONE HCL (LATUDA ORAL) metFORMIN 500 mg Oral tablet Methylcellulose Powder mirtazapine (REMERON) 30 mg Oral tablet Mometasone 110 mcg (30 doses) Inhalation Aerosol Powdr Breath Activated omeprazole (PRILOSEC) 20 mg Oral capsule,delayed release(DR/EC) polyethylene glycol (MIRALAX) 17 gram Oral Powder in Packet prazosin 2 mg Oral capsule promethazine 25 mg Oral tablet traMADol 50 mg Oral tablet trimethoprim-sulfamethoxazole (BACTRIM DS) 160-800 mg Oral tablet varenicline (CHANTIX) 0.5 (11)-1 (42) mg Oral tablets,dose pack Allergies Allergen Reactions Morphine Psychosis? Penicillins Rash [...] but has as posterior scar band and mucous debris be hind the scar band. 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 Plan: Dexamethasone and Cipro gtts BID. Revision Right CWD mastoid, Ct prior we will contact him to schedule. Willie Plunkett MD Core Driller Otology, Neurotology & Skull Base Surgery documented in this en counter Plan of Treatment +--------+ + + + + | Date | Type | Specialty | Care Team | Description | +--------+ + + + + | 04/29/ | Diagnostic | Box Finisher | Marce Meyer | | | 2019 | Visit | | Eve Briseno [address] [facility] [address] | | | | | | [address] | | | | | | [place] | | | | | | [address] | | +--------+ + + + + documented as of this encounter Visit Diagnoses + + | Diagnosis | + + | Chronic mastoiditis - Primary | + + documented in this encounter"
--- OUTSIDE RECORDS SUMMARY | ~2019-04-25 | XMS | Encounter Summary ---
Demographics + + + | Address | [address] | | | [place] [address] | + + + | Home Phone [...] + + + | Author | [facility] | + + + | Organization | [facility] | + + + | Address | Unknown | + + + | Phone | Unavailable | + + + Support + + + + + | Name | Relationship | Address | Phone | + + + + + | Margarito Owusu | ECON | [address] | | | | | [place] | | | | | [address] | | + + + + + Care Team Providers + +------+ + | Care Hand Twister Name | Role | Phone | + +------+ + | Cee Triana MD | PCP | Unavailable | + +------+ + Encounter Details +--------+ + + + + | Date | Type | Department | Care Team | Description | +--------+ + + + + | 11/16/ | Telephone | Digestive Health | Mahnaz Lew, | | | 2012 | | [place] [facility] [address] | [address] | | | | | [address] | [address] | | | | | Mailcode: [place] | [place], [place] | | | | | [facility] and | [address] | | | | | [facility], [place] [address] | [phone] | | | | | [place], [place] | | | | | | [address] | | | | | | [phone] | | | +--------+ + + + [...] + + | 04/29/ | Diagnostic | Presidential Helicopter Crew Chief | Marce Meyer | | | 2019 | Visit | | Eve Briseno [address] | | | | | | [address] | | | | | | [place] | | | | | | [address] | | +--------+ + + + + documented as of this encounter Visit Diagnoses Not on filedocumented in this encounter"
--- OUTSIDE RECORDS SUMMARY | ~2019-04-25 | XMS | Encounter Summary ---
Demographics + + + | Address | [address] | | | [place] [address] | + + + | Home Phone [...] [place] | | | | | [address] | | + + + + + Care Team Providers + +------+ + | Care Revenue Audit Clerk Name | Role | Phone | + +------+ + | Ender Wagoner MD | PCP | | + +------+ + Reason for Visit + + + | Reason | Comments | + + + | Transfer of Care | Wants labs/admission notes/referral from [facility] transferred to | | | Dr. James Sanchez ph: [phone] / fx: [phone] -having | | | pain: wants referral/to be seen there [place] [address] | + + + Encounter Details +--------+ + + + + | Date | Type | Department | Care Team | Description | +--------+ + + + + | 12/06/ | Telephone | Otolaryngology | Jose Franco, | Transfer of Care | | 2010 | | Otology Services at | [address] | (Wants | | | | [facility] [address] | [address] | labs/admission | | | | [address] | [place] [address] | notes/referral from | | | | Mailcode: [facility] | [phone] | [facility] | | | | [facility] | (Fax) | transferred to | | | | [place], [place] | | James Sanchez ph: | | | | [address] | | [phone] / fx: | | | | [phone] | | [phone] -having | | | | | | pain: wants | | | | | | referral/to be seen | | | | | | there MICHAEL thx | | | | | | -[place] [phone]) | +--------+ + + + + Social [...] + + | 04/29/ | Diagnostic | Pump Press Operator | Marce Meyer | | | 2019 | Visit | | Eve Briseno [address] | | | | | | [address] | | | | | | [place] | | | | | | [address] | | +--------+ + + + + documented as of this encounter Visit Diagnoses Not on filedocumented in this encounter"
--- OUTSIDE RECORDS SUMMARY | ~2019-04-25 | XMS | Encounter Summary ---
Demographics + + + | Address | [address] | | | [place] [address] | + + + | Home Phone [...] [place] | | | | | [address] | | + + + + + Care Team Providers + +------+ + | Care Fence Setter Name | Role | Phone | [...] + + + + | 03/28/ | Documentati | Otolaryngology | Haroon Poe, | Hearing loss (Scottie) | | 2009 | on | [facility] Services | PhD | | | | | [address] | | | | | | Toya [place] Mailcode: | | | | | | [address] Physician[facility] | | | | | | [place], | | | | | | [place] [address] | | | | | | [phone] | | | +--------+ + + + [...] + + | 04/29/ | Diagnostic | Mechanic General Operational Test | Marce Meyer | | | 2019 | Visit | | Eve Briseno [address] | | | | | | [address] | | | | | | [place] | | | | | | [address] | | +--------+ + + + + documented as of this encounter Visit Diagnoses Not on filedocumented in this encounter"
--- OUTSIDE RECORDS SUMMARY | ~2019-04-25 | XMS | Encounter Summary ---
Demographics + + + | Address | [address] | | | [place] [address] | + + + | Home Phone [...] [place] | | | | | [address] | | + + + + + Care Team Providers + +------+ + | Care Church Supervisor Name | Role | Phone | + +------+ + | Ender Wagoner MD | PCP | | + +------+ + Reason for Visit + + + | Reason | Comments | + + + | Transfer of Care | Wants labs/admission notes/referral from [facility] transferred to | | | Dr. James Sanchez ph: [phone] / fx: [phone] -having | | | pain: wants referral/to be seen there [place] [address] | + + + Encounter Details +--------+ + + + + | Date | Type | Department | Care Team | Description | +--------+ + + + + | 12/06/ | Telephone | Otolaryngology | Jose Franco, | Transfer of Care | | 2010 | | Otology Services at | [address] [facility] | (Wants | | | | PPV [address] | [address] | labs/admission | | | | [address] | [place] [address] | notes/referral from | | | | Mailcode: [facility] | [phone] | [facility] | | | | [facility] | (Fax) | transferred to | | | | [place], [place] | | James Sanchez ph: | | | | [address] | | [phone] / fx: | | | | [phone] | | [phone] -having | | | | | | pain: wants | | | | | | referral/to be seen | | | | | | there MICHAEL thx | | | | | | -[place] [address]) | +--------+ + + + + Social [...] + + | 04/29/ | Diagnostic | Government Relations Director | Marce Meyer | | | 2019 | Visit | | Eve Briseno [address] | | | | | | [address] | | | | | | [place] | | | | | | [address] | | +--------+ + + + + documented as of this encounter Visit Diagnoses Not on filedocumented in this encounter"
--- OUTSIDE RECORDS SUMMARY | ~2019-04-25 | XMS | Encounter Summary ---
Demographics + + + | Address | [address] | | | [place] [address] | + + + | Home Phone [...] [place] | | | | | [address] | | + + + + + Care Team Providers + +------+ + | Care Technology Analyst Name | Role | Phone | [...] + + | 04/29/ | Diagnostic | [place] | Marce Meyer | | | 2019 | Visit | | Eve Briseno [address] | | | | | | [address] | | | | | | [place], [place] | | | | | | [address] | | +--------+ + + + + [...] | | | | DIAGNOSTICS- | | -[facility] | | | | [address] | | | | | | [address], | | | | | | [place] [address] | | | | | | : ASHLEY C SOL,MD | | | | + + + + + + + + | Specimen | + + | | + + + + + + + | Performing | Address | City/State/Zipcode | Phone Number | | Organization | | | | + + + + + | [facility] | [address] | [place] [address] | [phone] | | [facility] | | | | + + + + + | [facility] | | | | | [facility] | | | | + + + [...] + + + + | WBC, | RECREATIONAL ASSISTANT | X10 3/uL | [facility] | | [...] + + + | BANDS % | RECREATIONAL ASSISTANT | 0 - 7 % | [facility] [...] + + + + | BASOPHIL%, | RECREATIONAL ASSISTANT | 0 - 1 % | [facility] | | | MANUAL | | | A MEDICAL | | | | | | CENTER | | + + + + + + | REACTIVE | RECREATIONAL ASSISTANT | 0.0 - 4.0 % | [facility] [...] + + + + | METAMYELOCY | RECREATIONAL ASSISTANT | 0 - 0 % | [facility] | | | BRANDON % | | | A MEDICAL | | | | | | CENTER | | + + + + + + | MYELOCYTES | RECREATIONAL ASSISTANT | 0 - 0 % | [facility] | | | % | | | A MEDICAL | | | | | | CENTER | | + + + + + + | PROMYELOCYT | RECREATIONAL ASSISTANT | 0 - 0 % | [facility] | | | ES % | | | A MEDICAL | | | | | | CENTER | | + + + + + + | BLASTS | RECREATIONAL ASSISTANT | 0 - 0 % | [facility] [...] + + + + | RBC | RECREATIONAL ASSISTANT | NORMAL | [facility] | | | MORPHOLOGY | | | A MEDICAL | | | | | | CENTER | | + + + + + + | WBC | RECREATIONAL ASSISTANT | NORMAL | [facility] | | | MORPHOLOGY | | | A MEDICAL | | | | | | CENTER | | + + + + + + | PLATELET | RECREATIONAL ASSISTANT | NORMAL | [facility] | | | MORPHOLOGY | | | A MEDICAL | | | | | | CENTER | | + + + + + + | NUCLEATED | RECREATIONAL ASSISTANT | | [facility] | | | RBCS | | | A MEDICAL | | | | | | CENTER | | + + + + + + | GIANT PLT | RECREATIONAL ASSISTANT | | [facility] | | | | [...] | + + + + + | [facility] | And | [place] [address] | | | [facility] | [place] | | | + + + + [...] (H) | 70 - 105 MG/DL | [facility] | | | PLASMA | | | A MEDICAL | | | (LAB) | | | CENTER | | + +---------+ + + + | BUN, PLASMA | 27 | 8 - 30 MG/DL | [facility] | | | (LAB) | | | A MEDICAL | | | | | | CENTER | | + +---------+ + + + | CREATININE | 1.12 | 0.9 - 1.3 MG/DL | [facility] | | | PLASMA | | | A MEDICAL | | | (LAB) | | | CENTER | | + +---------+ + + + | BUN/CREATIN | 24 (H) | 6 - 20 RATIO | [facility] | | | INE RATIO | | [...] | + + + + + | [facility] | [place] | [place] [address] | | | [facility] [place] | Streets | | | + + + + + documented in this encounter Visit Diagnoses Not on filedocumented in this encounter"
--- OUTSIDE RECORDS SUMMARY | ~2019-04-25 | XMS | Encounter Summary ---
Demographics + + + | Address | [address] | | | [place] [address] | + + + | Home Phone [...] Author + + + | Author | [facility] | + + + | Organization | [facility] | + + + | Address | Unknown | + + + | Phone | Unavailable | + + + Support + + + + + | Name | Relationship | Address | Phone | + + + + + | Margarito Owusu | ECON | [address] | | | | | [place] | | | | | [address] | | + + + + + Care Team Providers + +------+ + | Care Flower Shop Laborer/Designer Name | Role | Phone | + [...] | 11/26/ | Telephone | [facility] | Haroon Poe, | Hearing loss (RMA | | 2006 | | Floor [address] | PhD | 11/26/2006) | | | | [address] | | | | | | Mailcode: [facility] | | | | | | [place], [place] | | | | | | [address] | | | | | | [phone] | | | +--------+ + + + [...] + + | 04/29/ | Diagnostic | Track Broom Operator | Marce Meyer | | | 2019 | Visit | | Eve Briseno [address] [facility] | | | | | | [address] | | | | | | [place] | | | | | | [address] | | +--------+ + + + + documented as of this encounter Visit Diagnoses Not on filedocumented in this encounter"
--- OUTSIDE RECORDS SUMMARY | ~2019-04-25 | XMS | Clinical Summary ---
Demographics + + + | Address | [address] | | | [place] [address] | + + + | Home Phone | | + + + | Preferred Language | Unknown | + + + | Marital Status | Single | + + + | Mandaen Affiliation | BAP | + + + | Race | White | + + + | Ethnic Group | Not or | + + + Author + + + | Author | [facility] | + + + | Organization | [facility] | + + + | Address | Unknown | + + + | Phone | Unavailable | + + + Support + + + + + | Name | Relationship | Address | Phone | + + + + + | Margarito Owusu | ECON | [address] | | | | | [place] | | | | | [address] | | + + + + + Care Team Providers + +------+ + | Care Lead Web Developer Name | Role | Phone | + +------+ + | Maurice Zelaya MD | PCP | | + +------+ + Source Comments [facility] is fully [facility] In[facility] Allergies + + + + + + | Active Allergy | Reactions | Severity | Noted | Comments | | | | | Date | | + + + + + + | Morphine | | | 12/04/19 | Psychosis? | | | | | 11 | | + + + + + + | Penicillins | Rash | | 03/28/20 | | | | | | 08 | | + + + + + + Medications + + + +---------+------+------+-------+ | Medication | Sig | Dispensed | Refills | Star | End | Statu | | | | | | t | Date | s | | | | | | Date | | | + + + +---------+------+------+-------+ | LORazepam (ATIVAN) | Take 2 mg by mouth | | 0 | | | Activ | | 2 mg Oral tablet | every four hours as | | | | | e | | | needed. | | | | | | + + + +---------+------+------+-------+ | omeprazole | Take 20 mg by mouth | | 0 | | | Activ | | (PRILOSEC) 20 mg | once daily. | | | | | e | | Oral capsule,delayed | | | | | | | | release(DR/EC) | | | | | | | + + + +---------+------+------+-------+ | | Take 25 mg by mouth | | 0 | | | Activ | | hydrochlorothiazide | once daily. | | | | | e | | 25 mg Oral tablet | | | | | | | + + + +---------+------+------+-------+ | levothyroxine 25 | Take 25 mcg by mouth | | 0 | | | Activ | | mcg Oral tablet | before breakfast. | | | | | e | + + + +---------+------+------+-------+ | cyclobenzaprine | Take 10 mg by mouth | | 0 | | | Activ | | (FLEXERIL) 10 mg | three times daily as | | | | | e | | Oral tablet | needed. Do not use | | | | | | | | longer than 2-3 | | | | | | | | weeks. | | | | | | + + + +---------+------+------+-------+ | Aspirin 81 mg Oral | Take 1 Tab by mouth | 90 Tab | 3 | 10/2 | | Activ | | tablet | once daily. | | | 6 | | e | | | | | | 12 | | | + + + +---------+------+------+-------+ | lurasidone | Take by mouth once | | 0 | | | Activ | | (LATUDA) 40 mg Oral | daily. | | | | | e | | tablet | | | | | | | + + + +---------+------+------+-------+ | furosemide 20 mg | Take 20 mg by mouth | | 0 | | | Activ | | Oral tablet | once daily. 07/28 tab | | | | | e | | | twice a day | | | | | | + + + +---------+------+------+-------+ | carBAMazepine 200 | Take by mouth. One | | 0 | | | Activ | | mg Oral tablet | tablet in AM and two | | | | | e | | | tablets in the | | | | | | | | afternoon | | | | | | + + + +---------+------+------+-------+ | mirtazapine 30 mg | Take 30 mg by mouth | | 0 | | | Activ | | oral tablet | once daily in the | | | | | e | | | evening. | | | | | | + + + +---------+------+------+-------+ | metFORMIN 1,000 mg | Take 1,000 mg by | | 0 | | | Activ | | oral tablet | mouth once daily. | | | | | e | + + + +---------+------+------+-------+ | insulin glargine | Inject 14 Units | | 0 | | | Activ | | 100 unit/mL | under the skin | | | | | e | | subcutaneous | (SUBC) once daily at | | | | | | | solution | bedtime. | | | | | | + + + +---------+------+------+-------+ | albuterol 0.083% | Inhale. | | 0 | | | Activ | | 2.5 mg /3 mL (0.083 | | | | | | e | | %) inhalation | | | | | | | | solution for | | | | | | | | nebulization | | | | | | | + + + +---------+------+------+-------+ | albuterol 90 | Inhale 2 puffs every | | 0 | 09/1 | | Activ | | mcg/actuation | 4 hours PRN | | | 3/20 | | e | | inhalation HFA | | | | 12 | | | | aerosol inhaler | | | | | | | + + + +---------+------+------+-------+ | arformoterol 15 | Inhale. | | 0 | | | Activ | | mcg/2 mL inhalation | | | | | | e | | solution for | | | | | | | | nebulization | | | | | | | + + + +---------+------+------+-------+ | atorvastatin 40 mg | Take by mouth. | | 0 | 07/0 | | Activ | | oral tablet | | | | 8/20 | | e | | | | | | 16 | | | + + + +---------+------+------+-------+ | doxazosin 4 mg | Take by mouth. | | 0 | | | Activ | | oral tablet | | | | | | e | + + + +---------+------+------+-------+ | escitalopram | | | 0 | 09/1 | | Activ | | oxalate 20 mg oral | | | | 6/20 | | e | | tablet | | | | 16 | | | + + + +---------+------+------+-------+ | escitalopram | Take by mouth. | | 0 | | | Activ | | oxalate 10 mg oral | | | | | | e | | tablet | | | | | | | + + + +---------+------+------+-------+ | LORazepam 2 mg | | | 0 | 08/1 | | Activ | | oral tablet | | | | 5/20 | | e | | | | | | 16 | | | + + + +---------+------+------+-------+ | losartan 50 mg | Take by mouth. | | 0 | 09/1 | | Activ | | oral tablet | | | | 6/20 | | e | | | | | | 16 | | | + + + +---------+------+------+-------+ | lurasidone 60 mg | Take by mouth. | | 0 | | | Activ | | oral tablet | | | | | | e | + + + +---------+------+------+-------+ | mirtazapine 15 mg | Take 15 mg by mouth | | 0 | | | Activ | | oral tablet | once daily in the | | | | | e | | | evening. | | | | | | + + + +---------+------+------+-------+ Active Problems + + + | Problem | Noted Date | + + + | Recurrent ventral hernia | 04/30/2016 | + + + | Recurrent / residual cholesteatoma post mastoidectomy | 01/24/2014 | + + + | Polypharmacy | 12/22/2013 | + + + | S/P hernia repair | 09/16/2012 | + + + | Falls frequently | 08/20/2012 | + + + | Illiterate | 08/13/2012 | + + + | Nausea & vomiting | 12/04/2010 | + + + | Chronic pain | 12/04/2010 | + + + | Cochlear implant in place | 12/04/2010 | + + + | Otitis externa | 12/03/2010 | + + + | HTN (hypertension) | 03/28/2008 | + + + | GERD (gastroesophageal reflux disease) | 03/28/2008 | + + + | Insomnia | 03/28/2008 | + + + | Depression | 03/28/2008 | + + + | PTSD (post-traumatic stress disorder) | 03/28/2008 | + + + | Hyperlipidemia | 03/28/2008 | + + + | Seasonal allergies | 03/28/2008 | + + + | Tobacco use disorder | 03/28/2008 | + + + | Morbid obesity | 03/28/2008 | + + + | Bipolar affective disorder | 03/28/2008 | + + + + + | Overview: Radha Byrd | + + + + + | SUSAN (obstructive sleep apnea) | 03/28/2008 | + + + + + | Overview: Currently on CPAP | + + + + + | Sinusitis, chronic | 03/28/2008 | + + + + + | Overview: Surgery in pastHearing lossCT sinus 01/29: Bilat | | ethmoid, maxillary and frontal sinusitis slightly improved when | | compared to CT of 12/30 per report (I do not have the actual | | films)ICD10 | + + + + + | Reactive airway disease | 03/28/2008 | + + + + + | Overview: CXR 03/01: No acute changes--I just have the report | + + + + + | Asthma | 02/02/2008 | + + + | Heart attack | | + + + | Chronic airway obstruction, not elsewhere classified | | + + + + + | Overview: PFTs 12/18/2011 FVC 5.19/99%, FEV1 2.82/69%, | | FEV1/FVC 54. Moderate obstruction with significant reversibility | | with bronchodilator. | + + Resolved Problems + + + + | Problem | Noted | Resolved | | | Date | Date | + + + + | Recurrent ventral incisional hernia | 08/20/19 | | | | 13 | 3 | + + + + Encounters +--------+ + + + + | Date | Type | Specialty | Care Team | Description | +--------+ + + + + | 03/09/ | Diagnostic | Career Technical Counselor | Marce Meyer | Hearing loss | | 2019 | Visit | | K, Eve | (Re-establishing | | | | | | care) | +--------+ + + + + | 03/09/ | Documentati | Career Technical Counselor | Marce Meyer | | | 2018 | on | | Eve Briseno | | +--------+ + + + + | 03/09/ | Travel | | | | | 2018 | | | | | +--------+ + + + + from Last 3 Months Family History + + +------+ + | Medical History | Relation | Name | Comments | + + +------+ + | Heart Disease | Father | | | + + +------+ + | Lung Disease | Mother | | COPD (smoker) | + + +------+ + | Lung Disease | Sister | | "lung disease" (smoker) | + + +------+ + | Anesthesia | Neg Hx | | | + + +------+ + + +------+--------+ + | Relation | Name | Status | Comments | + +------+--------+ + | Father | | | | + +------+--------+ + | Mother | | | | + +------+--------+ + | Sister | | | | + +------+--------+ + Social History + + + +--------+ [...] | | + + + + + Plan of Treatment +--------+ + + + + | Date | Type | Specialty | Care Team | Description | +--------+ + + + + | 04/29/ | Diagnostic | Career Technical Counselor | Marce Meyer | | | 2019 | Visit | | Eve Briseno [address] | | | | | | [address] | | | | | | [place], [place] | | | | | | [address] | | +--------+ + + + + + + + + + | Health Maintenance | Due Date | Last Done | Comments | + + + + + | Influenza (Flu) | | 04/16/2018, 05/14/2017, | | | vaccination (#1) | 9 | 05/14/2017, Additional history | | | | | exists | | + + + + + | Pneumococcal | Completed | 09/11/2016, 07/26/2008, | | | vaccination | | 06/21/2004 | | + + + + + Implants + +------+------+ +--------+--------+--------+ | Implanted | Type | Area | Manufacture | Device | Shelf | Model | | | | | r | | Expira | / | | | | | | Identi | tion | Serial | | | | | | fier | Date | / Lot | + +------+------+ +--------+--------+--------+ | [employer]attice [employer] 20 X 25 - | | | [employer] | | 04/25/ | [id number] | | [id number]: Qty: 1 on | | | | | 2013 | 2 / | | 08/19/2012 by Ayana Butler | | | | | | /[id number] | | MD Med at [facility] | | | | | | 2-144 | | LOC | | | | | | | + +------+------+ +--------+--------+--------+ Results Not on filefrom Last 3 Months Insurance + +--------+ +--------+-------+---------+--------+ | Payer | Benefi | Subscriber | Effect | Phone | Address | Type | | | t Plan | ID | manjit | | | | | | / | | Dates | | | | | | Group | | | | | | + +--------+ +--------+-------+---------+--------+ | SENIOR ACCOUNTING MANAGER MEDICAID | SENIOR ACCOUNTING MANAGER | xxxxxxxx | 02/01/20 | | | Medica | | | [place] | | 13-Pre | | | id | | | [place] | | sent | | | | + +--------+ +--------+-------+---------+--------+ + +--------+ +--------+ + + | Guarantor Name | Accoun | Relation to | Date | Phone | Billing Address | | | t Type | Patient | of | | | | | | | | | | + +--------+ +--------+ + + | Edgar Marquez | Person | Self | [birth year] | [address] | | | al/Fam | | 1966 | [phone] | [place] [address] | | | gabe | | | 8 (Home) | | + +--------+ +--------+ + + Advance Directives + + + + + | Code Status | Date | Date | Comments | | | Activated | Inactivated | | + + + + + | Full Code | 12/22/2013 | 12/23/2013 | | | | 12:30 PM | 12:33 AM | | + + + + + + + + +---+ | | | | | + + + +---+ | Full Code | 09/16/2012 | 09/18/2012 | | | | 10:40 PM | 10:47 PM | | + + + +---+ + + + +---+ | | | | | + + + +---+ | Full Code | 08/19/2012 | 08/28/2012 | | | | 8:01 PM | 7:19 PM | | + + + +---+ + + + +---+ | | | | | + + + +---+ | Full Code | 12/03/2010 | 12/06/2010 | | | | 4:56 PM | 7:12 PM | | + + + +---+
--- OUTSIDE RECORDS SUMMARY | ~2019-04-25 | XMS | Encounter Summary ---
Demographics + + + | Address | [address] | | | [place] [address] | + + + | Home Phone [...] [place] | | | | | [address] | | + + + + + Care Team Providers + +------+ + | Care Flamer Sealer Name | Role | Phone | + [...] + + + | Closed | | Textile Conversion Manager | Diagnoses | Angelo Carder, | | | | | Neural | Deidre Lazcano | Haroon, PhD | | | | | hearing | [place] | [address] | | | | | loss, | INTERNAL | [address] | | | | | bilateral | MEDICINE | [address] [place], | | | | | [phone] | [place] [address] | | | | | | [place] | | | | | | | [address] | | | | | | | [place], | | | | | | | [place] [address] | | | | | | | Phone: | | | | | | | [phone] | | | | | | | Fax: | | | | | | | [phone] | | +--------+--------+ + + + + Encounter Details +--------+---------+ + + + | Date | Type | Department | Care Team | Description | +--------+---------+ + + + | 02/11/ | Office | Otolaryngology | Haroon Poe, | Neural Hearing Loss | | 2005 | Visit | [facility] | PhD | (Primary Dx) | | | | [address] | | | | | | [address] Mailcode: | | | | | | [address] Physician's | | | | | | [place], | | | | | | [place] [address] | | | | | | [phone] | | | +--------+---------+ + + + [...] of this encounter Progress Haroon Francis - 02/11/2006 12:48 PM Krystina Marquez comes in today with his 3G processor attached to his [facility]. He says that there is no sound, and that he is using 3 batterie s a day. I connected his processor to the [employer], and with activation there was not s ound. Since he can still hear from the [facility] derrick, I initiated an RMA for a replacement processor. This will be sent directly to his home. He will then send the broken processor to Cochle[facility]. documented in this encou nter Plan of Treatment +--------+ + + + + | Date | Type | Specialty | Care Team | Description | +--------+ + + + + | 04/29/ | Diagnostic | Textile Conversion Manager | Marce Meyer | | | 2018 | Visit | | Eve Briseno [address] | | | | | | [address] | | | | | | [facility] | | | | | | [address] | | +--------+ + + + + documented as of this encounter Visit Diagnoses + + | Diagnosis | + + | Neural hearing loss, bilateral - Primary | + + documented in this encounter"
--- OUTSIDE RECORDS SUMMARY | ~2019-04-25 | XMS | Encounter Summary ---
Demographics + + + | Address | [address] | | | [place] [address] | + + + | Home Phone [...] [place] | | | | | [address] | | + + + + + Care Team Providers + +------+ + | Care Tumbler Dyeing Machine Operator Name | Role | Phone | + +------+ + | Cee Triana MD | PCP | Unavailable | + +------+ + Encounter Details +--------+ + + + + | Date | Type | Department | Care Team | Description | +--------+ + + + + | 11/08/ | Telephone | Digestive Health | Aayna Butler W, | | | 2012 | | [place] [facility] [address] | [address] | | | | | [place] | [facility] [place] | | | | | Mailcode: [place] | [address] | | | | | for Health and | [phone] | | | | | [facility] | | | | | | [place], [place] | | | | | | [address] | | | | | | [phone] | | | +--------+ + + + [...] + | 04/29/ | Diagnostic | Inspector Of Weights And Measures | Marce Meyer | | | 2019 | Visit | | Eve Briseno [address] [place] [address] | | | | | | [address] | | | | | | [place] | | | | | | [address] | | +--------+ + + + + documented as of this encounter Visit Diagnoses Not on filedocumented in this encounter"
--- OUTSIDE RECORDS SUMMARY | ~2019-04-25 | XMS | Encounter Summary ---
Demographics + + + | Address | [address] | | | [place] [address] | + + + | Home Phone | | + + + | Preferred Language | Unknown | + + + | Marital Status | Single | + + + | Muslim Affiliation | BAP | + + + | Race | White | + + + | Ethnic Group | Not or | + + + Author + + + | Author | [facility] | + + + | Organization | [facility] | + + + | Address | Unknown | + + + | Phone | Unavailable | + + + Support + + + + + | Name | Relationship | Address | Phone | + + + + + | Margarito Owusu | ECON | [address] | | | | | [place] | | | | | [address] | | + + + + + Care Team Providers + +------+ + | Care Loading Supervisor Name | Role | Phone | [...] 2008 | ibed | E The | [facility] | | | | | [place] | [address] | | | | | [address] | [address] | | | | | | [place] [address] | | | | | | [phone] | | | | | | | [...] + + | 04/29/ | Diagnostic | Finish Repair Worker | Marce Meyer | | | 2019 | Visit | | Eve Briseno [address] | | | | | | [address] | | | | | | [place] | | | | | | [address] | | +--------+ + + + + documented as of this encounter Visit Diagnoses Not on filedocumented in this encounter"
--- OUTSIDE RECORDS SUMMARY | ~2019-04-25 | XMS | Encounter Summary ---
Demographics + + + | Address | [address] | | | [place] [address] | + + + | Home Phone [...] [place] | | | | | [address] | | + + + + + Care Team Providers + +------+ + | Care Literacy Teacher Name | Role | Phone | [...] + + | 04/29/ | Diagnostic | Modular Set Crew Member | Marce Meyer | | | 2019 | Visit | | Eve Briseno [address] | | | | | | [address] | | | | | | [place], [place] | | | | | | [address] | | +--------+ + + + + [...] | Transcriptions | + + | Interface, Rabbit Dresser In - 04/10/2006 3:04 AM PDT | | [address] | | [place], [place] [address] | | [facility] RECORDMed Rec No.: | | [id number] Date: 09/14/2001Name: Edgar MarquezCRITICAL ACCESS HOSPITALROSALIO SURGEON: | | Aamir Chan M.D.ESTIMATING MANAGER: | | Bayron Hirsch M.D.PREOPERATIVE DIAGNOSIS:Right-sided cholesteatoma.POSTOPERATIVE [...] Hirsch M.D.NG:x63D: 09/14/2001T: | | 09/16/2001C: 09/23/2001 [id number] | |room table. The patient was identified, [...] 09/23/2001 ds | | | | | |[id number] | + + documented in this encounter Visit Diagnoses Not on filedocumented in this encounter"
--- OUTSIDE RECORDS SUMMARY | ~2019-04-25 | XMS | Encounter Summary ---
Demographics + + + | Address | [address] | | | [place] [address] | + + + | Home Phone [...] + + + | Author | [facility] | + + + | Organization | [facility] | + + + | Address | Unknown | + + + | Phone | Unavailable | + + + Support + + + + + | Name | Relationship | Address | Phone | + + + + + | Margarito Owusu | ECON | [address] | | | | | [place] | | | | | [address] | | + + + + + Care Team Providers + +------+ + | Care Tube Carrier Name | Role | Phone | + [...] | [place] | | | | [place] | [address] | [address] | | | | | | [phone] | | | | | | | [...] + + | 04/29/ | Diagnostic | Monitoring And Evaluation Advisor | Marce Meyer | | | 2019 | Visit | | Eve Briseno [address] [facility] [facility] | | | | | | [address] | | | | | | [place] | | | | | | [address] | | +--------+ + + + + documented as of this encounter Visit Diagnoses Not on filedocumented in this encounter"
--- OUTSIDE RECORDS SUMMARY | ~2019-04-25 | XMS | Encounter Summary ---
Demographics + + + | Address | [address] | | | [place] [address] | + + + | Home Phone | | + + + | Preferred Language | Unknown | + + + | Marital Status | Single | + + + | Lutheran Affiliation | BAP | + + + [...] [place] | | | | | [address] | | + + + + + Care Team Providers + +------+ + | Care Transportation Maintenance Worker Name | Role | Phone | + +------+ + | Maurice Zelaya MD | PCP | | + +------+ + Encounter Details +--------+ + + + + | Date | Type | Department | Care Team | Description | +--------+ + + + + | 01/08/ | Ancillary | Registration [address] | Jose Franco, | | | 2006 | Registratio | [address] | [address] [place] [address] | | | | n | [address] Mailcode: [id number] | [address] | | | | | [place], [place] | [place] [address] | | | | | [address] | [phone] | | | | | [phone] | (Fax) | | +--------+ + + [...] + + | 04/29/ | Diagnostic | Fur Blowing Machine Operator | Marce Meyer | | | 2019 | Visit | | Eve Briseno [address] [facility] | | | | | | [address] | | | | | | [place], [place] | | | | | | [address] | | +--------+ + + + + documented as of this encounter Visit Diagnoses Not on filedocumented in this encounter"
--- OUTSIDE RECORDS SUMMARY | ~2019-04-25 | XMS | Encounter Summary ---
Demographics + + + | Address | [address] | | | [place] [address] | + + + | Home Phone [...] [place] | | | | | [address] | | + + + + + Care Team Providers + +------+ + | Care Bmw Service Technician Name | Role | Phone | [...] + + + + | 01/08/ | Telephone | Otolaryngology | Pascual Pace, | Hearing loss | | 2015 | | Audiology Services | Melodie [facility] | | | | | at [address] | [address] | | | | | [address] | [place], [place] | | | | | Mailcode: PV01 | [address] | | | | | Physician's Chris | | | | | | [place], [place] | | | | | | [address] | | | | | | [phone] | | | +--------+ + + + [...] + + | 04/29/ | Diagnostic | Master Lay Out Specialist | Marce Meyer | | | 2019 | Visit | | Eve Briseno [address] | | | | | | [address] | | | | | | [place] | | | | | | [address] | | +--------+ + + + + documented as of this encounter Visit Diagnoses Not on filedocumented in this encounter"
--- OUTSIDE RECORDS SUMMARY | ~2019-04-25 | XMS | Encounter Summary ---
Demographics + + + | Address | [address] | | | [place] [address] | + + + | Home Phone [...] Author + + + | Author | [facility] | + + + | Organization | [facility] | + + + | Address | Unknown | + + + | Phone | Unavailable | + + + Support + + + + + | Name | Relationship | Address | Phone | + + + + + | Margarito Owusu | ECON | [address] | | | | | [place] | | | | | [address] | | + + + + + Care Team Providers + +------+ + | Care Bottom Bleacher Name | Role | Phone | + [...] [place] | | | | | [address] | [address] | | | | | | [phone] | | | | | | | [...] Notes Sage Brantley - 07/12/2008 7:37 PM [facility] SLEEP STUDY FOLLOW UP NOTE [address] [place] [address] KISHOR VIVAR DATE OF SERVICE: July 12, [...] disorder, bipolar affective disorder, nightmare disorder. PC/MedQ /[id number] Electronically Signed Sage Brantley MD [facility] [id number] ADMIT DATE: documented in th is encounter Plan of Treatment +--------+ + + + + | Date | Type | Specialty | Care Team | Description | +--------+ + + + + | 04/29/ | Diagnostic | Torpedoman'S Mate | Marce Meyer | | | 2019 | Visit | | Eve Briseno [address] [facility] | | | | | | [address] | | | | | | [place] | | | | | | [address] | | +--------+ + + + + documented as of this encounter Visit Diagnoses Not on filedocumented in this encounter"
--- OUTSIDE RECORDS SUMMARY | ~2019-04-25 | XMS | Encounter Summary ---
Demographics + + + | Address | [address] | | | [place] [address] | + + + | Home Phone [...] [place] | | | | | [address] | | + + + + + Care Team Providers + +------+ + | Care Associate Creative Director Name | Role | Phone | [...] | | | | | [place] [address] | | | | | | [phone] | | | | | | | [...] + + | 04/29/ | Diagnostic | Kosher Butcher | Marce Meyer | | | 2019 | Visit | | Eve Briseno [address] | | | | | | [address] | | | | | | [place], [place] | | | | | | [address] | | +--------+ + + + + [...] POINT | | | GLUCOSE, | ID: [id number]: | | OF CARE | | | POC | [id number] Marino Skye | | TESTING | | | |Account Development Manager: [id number] Gorham Skye | | | | | | [...]
--- OUTSIDE RECORDS SUMMARY | ~2019-04-25 | XMS | Encounter Summary ---
Demographics + + + | Address | [address] | | | [place] [address] | + + + | Home Phone [...] [place] | | | | | [address] | | + + + + + Care Team Providers + +------+ + | Care Plastic Surgery Technician Name | Role | Phone | [...] Recurrent | Ayana Jovel MD | s [address] | | | | | ventral | [address] | [address] | | | | | hernia | Ave | [address] | | | | | Procedures | [place], [place] | Mailcode: | | | | | CT ABDOMEN | [address] | [address] [facility] | | | | | AND PELVIS | Phone: | Hospital | | | | | WWO IV | [phone] | [place], [place] | | | | | CONTRAST DC | Fax: | [address] | | | | | CT ABD&PELV | [phone] | Phone: | | | | | 1+ | | [phone] | | | | | SECTION/REGN | | Fax: | | | | | S | | [phone] | +--------+--------+ + + + + Encounter Details +--------+ + + + + | Date | Type | Department | Care Team | Description | +--------+ + + + + | 04/30/ | Ring Conductor | Digestive Health | Ayana Butler W, | Recurrent ventral | | 2016 | | [facility] at [facility] [address] | MD [address] | hernia (Primary Dx) | | | | [address] | [facility] [place] | | | | | Mailcode: Center | [address] | | | | | for Health and | [phone] | | | | | Healing, [address] | | | | | | [place], [place] | | | | | | [address] | | | | | | [phone] | | | +--------+ + + + [...] + + | 04/29/ | Diagnostic | Fuel Tank Sealer And Tester | Marce Meyer | | | 2019 | Visit | | Eve Briseno [address] | | | | | | [address] | | | | | | [place], [place] | | | | | | [address] | | +--------+ + + + + documented as of this encounter Visit Diagnoses + + | Diagnosis | + + | Recurrent ventral hernia - Primary Incisional hernia without mention of obstruction | | or gangrene | + + documented in this encounter"
--- OUTSIDE RECORDS SUMMARY | ~2019-04-25 | XMS | Encounter Summary ---
Demographics + + + | Address | [address] | | | [place] [address] | + + + | Home Phone [...] [place] | | | | | [address] | | + + + + + Care Team Providers + +------+ + | Care Hvac Estimator Name | Role | Phone | + +------+ + | Cee Triana MD | PCP | Unavailable | + +------+ + Encounter Details +--------+------+ + + + | Date | Type | Department | Care Team | Description | +--------+------+ + + + | 10/20/ | Lab | Laboratory at [facility] | | Dysuria | | 2012 | | [address] | | | | | | [place], [place] | | | | | | [address] | | | | | | [phone] | | | +--------+------+ + + + Social History + + [...] + + | 04/29/ | Diagnostic | Dietetics Director | Marce Meyer | | | 2019 | Visit | | Eve Briseno [address] [facility] | | | | | | [address] | | | | | | [place], [place] | | | | | | [address] | | +--------+ + + + + documented as of this encounter Procedures + +--------+ + + + | Procedure Name | Priori | Date/Time | Associated Diagnosis | Comments | | | ty | | | | + +--------+ + + + | UA, DIPSTICK ONLY | Routin | 10/20/2012 | Dysuria | Results for this | | | e | 2:44 PM | | procedure are in the | | | | PDT | | results section. | + +--------+ + + + | URINE, MICROSCOPIC | Routin | 10/20/2012 | Dysuria | Results for this | | EXAM | e | 2:44 PM | | procedure are in the | | | | PDT | | results section. | + +--------+ + + + | URINE SCREEN FOR | Routin | 10/20/2012 | Dysuria | Results for this | | CULTURE | e | 2:44 PM | | procedure are in the | | | | PDT | | results section. | + +--------+ + + + documented in this encounter Results UA, DIPSTICK ONLY (10/20/2012 2:44 PM PDT) + + [...] [facility] | [address] | [place] [address] | | | SERVICES, CORE | PARK [...] [facility] | [address] | [place] [address] | | | SERVICES, CORE | PARK [...] | | | LABORATORY | | | SERVICES, CORE | + + + + + + + + | Performing | Address | City/State/Zipcode | Phone Number | | Organization | | | | + + + + + | [facility] | [address] | [place] [address] | | | SERVICES, CORE | VASQUEZ RAMIREZ | | | + + + + + documented in this encounter Visit Diagnoses + + | Diagnosis | + + | Dysuria | + + documented in this encounter"
--- OUTSIDE RECORDS SUMMARY | ~2019-04-25 | XMS | Encounter Summary ---
Demographics + + + | Address | [address] | | | [place] [address] | + + + | Home Phone [...] [place] | | | | | [address] | | + + + + + Care Team Providers + +------+ + | Care Computational Sciences Professor Name | Role | Phone | [...] | +--------+ + + + + | 02/19/ | Documentati | Otolaryngology | Pascual Carinasue, | Hearing loss (Scottie) | | 2011 | on | Cochlear Services | MelodieSTEPHANIE smith [address] | | | | | [address] | [address] | | | | | [address] Mailcode: | [address] [place], [place] | | | | | [address] Physician's | [address] | | | | | Chris [place], | | | | | | [place] [address] | | | | | | [phone] | | | +--------+ + + + [...] + + | 04/29/ | Diagnostic | Degreaser | Marce Meyre | | | 2019 | Visit | | Eve Briseno [address] | | | | | | [address] | | | | | | [place], [place] | | | | | | [address] | | +--------+ + + + + documented as of this encounter Visit Diagnoses Not on filedocumented in this encounter"
--- OUTSIDE RECORDS SUMMARY | ~2019-04-25 | XMS | Encounter Summary ---
Demographics + + + | Address | [address] | | | [place] [address] | + + + | Home Phone [...] [place] | | | | | [address] | | + + + + + Care Team Providers + +------+ + | Care Building Equipment Inspector Name | Role | Phone | [...] [place] | | | | | | [address] | | | | | | [phone] | | | | | | | [...] + + | 04/29/ | Diagnostic | Check Airman | Marce Meyer | | | 2019 | Visit | | Eve Briseno [address] [facility] | | | | | | [address] | | | | | | [place], [place] | | | | | | [address] | | +--------+ + + + + documented as of this encounter Procedures + +--------+ + + + | Procedure Name | Priori | Date/Time | Associated Diagnosis | Comments | | | ty | | | | + +--------+ + + + | ABDOMEN AND PELVIS | Routin | 07/10/2010 | | [place] [id number] | e | 1:47 PM | | procedure are in the | | | | PST | | results section. | + +--------+ + + + | CHEST 2 VIEW [id number] | Routin | 07/10/2010 | | Results [...] this encounter [place] [id number] (07/10/2010 1:47 PM PST) + + | [...] + +---------+ + + CHEST 2 VIEW [id number] (07/10/2010 10:53 AM PST) + + | [...] + | [facility] | [address] | [place] [address] | | | [facility] | Streets | | | + [...] + + | [facility] | [address] | [place] [address] | | | [facility] | Streets | | | + [...] | [facility] | [address] | [place] [address] | | | [facility]ICAL [facility]ENTER | Streets [...] + + + | BANDS % | IMPERSONATOR CHARACTER | 0 - 7 % | [facility] [...] | [facility] | [address] | [place] [address] | | | MEDICAL CENTER | Streets [...] 25 | 22 - 28 MEQ/L | [facility] | | | | | | A MEDICAL | | | | | | CENTER | | + + + + + + | CHLORIDE, | 99 | 98 - 106 MEQ/L | [facility] | | | PLASMA | | | A MEDICAL | | | (LAB) | | | CENTER | | + + + + + + | GLUCOSE, | 92 | 70 - 105 MG/DL | [facility] | | | PLASMA | | | A MEDICAL | | | (LAB) | | | CENTER | | + + + + + + | BUN, PLASMA | 18 | 8 - 30 MG/DL | [facility] | | | (LAB) | | | A MEDICAL | | | | | | CENTER | | + + + + + + | CREATININE | 1.03 | 0.9 - 1.3 MG/DL | [facility] | | | PLASMA | | | A MEDICAL | | | (LAB) | | | CENTER | | + + + + + + | BUN/CREATIN | 17 | 6 - 20 RATIO | [facility] | | | INE RATIO | | | A MEDICAL | | | | | | CENTER | | + + + + + + | CALCIUM, | 9.1 | 8.5 - 10.8 | [facility] | | | PLASMA | | MG/DL | A MEDICAL | | | (LAB) | | | CENTER | | + + + + + + | CK | 1097 (H)Comment: @A MB | 32 - 184 U/L | [facility] | | | | WILL REFLEX. | [...] | + + + + + | [facility] | [address] | [place] [address] | | | MEDICAL CENTER | Streets | | | + + + + + documented in this encounter Visit Diagnoses Not on filedocumented in this encounter"
--- OUTSIDE RECORDS SUMMARY | ~2019-04-25 | XMS | Encounter Summary ---
Demographics + + + | Address | [address] | | | [place] [address] | + + + | Home Phone [...] [place] | | | | | [address] | | + + + + + Care Team Providers + +------+ + | Care Dance Professor Name | Role | Phone | + +------+ + | Jaison Chávez MD | PCP | | + +------+ + Encounter Details +--------+ + + + + | Date | Type | Department | Care Team | Description | +--------+ + + + + | 10/17/ | Results | NON-[facility] | Maroin Rees, | | | 2008 | Only | Department | [facility] | | | | | | [place] [facility] | | | | | | [facility] [address] | | | | | [address] [place], | | | | | | [place] [address] | | | | | | [phone] | | | | | | | [...] + + | 04/29/ | Diagnostic | Concrete Building Assembler | Marce Meyer | | | 2019 | Visit | | Eve Briseno [address] | | | | | | [address] | | | | | | [place], [place] | | | | | | [address] | | +--------+ + + + + documented as of this encounter Procedures + +--------+ + + + | Procedure Name | Priori | Date/Time | Associated Diagnosis | Comments | | | ty | | | | + +--------+ + + + | CBC WITH MANUAL | Routin | 10/17/2008 | | Results for this | | DIFFERENTIAL | e | 11:45 AM | | procedure are in the | | | | PDT | | results section. | + +--------+ + + + | COMPLETE METABOLIC | Routin | 10/17/2008 | | Results for this | | SET | e | 11:45 AM | | procedure are in the | | (NA,K,CL,CO2,BUN,CRE | | PDT | | results section. | | AT,GLUC,CA,AST,ALT,B | | | | | | TERRY TOTAL,ALK | | | | | | PHOS,ALB,PROT TOTAL) | | | | | + +--------+ + + + documented in this encounter Results CBC WITH MANUAL DIFFERENTIAL (10/17/2008 11:45 AM PDT) + + + + + [...] + + + + | WBC, | FAMILY PROTECTION SPECIALIST | X10 3/uL | [facility] | | | ADJUSTED | | | A MEDICAL | | | | | | CENTER | | + + + + + + | HEMOGLOBIN | 12.5 | 12.0 - 16.0 | [facility] | | | | | g/dL | A MEDICAL | | | | | | CENTER | | + + + + + + | RED BLOOD | 4.41 (L) | 4.7 - 6.1 X10 | [facility] | | | CELL COUNT | | 6/uL | A MEDICAL | | | | | | CENTER | | + + + + + + | HEMATOCRIT | 36.8 (L) | 40.0 - 54.0 % | [facility] | | | | | | A MEDICAL | | | | | | CENTER | | + + + + + + | MCV | 83.5 | 82 - 100 fl | [facility] | | | | | | A MEDICAL | | | | | | CENTER | | + + + + + + | MCH | 28.3 | 28.0 - 32.0 pg | [facility] [...] + + + + | RDW | 16.2 (H) | 12 - 15 fL | [facility] | | | | | | A MEDICAL | | | | | | CENTER | | + + + + + + | PLATELET | 223 | 150 - 450 X10 3 | [...] + + + + | NEUTROPHIL | 70.5 | 40 - 80 % | [facility] | | | % | | | A MEDICAL | | | | | | CENTER | | + + + + + + | LYMPHOCYTE | 15.3 | 10 - 45 % | [facility] | | | % | | | A MEDICAL | | | | | | CENTER | | + + + + + + | EOS % | 4.2 | 0 - 5 % | [facility] [...] + + + | MONOCYTE % | 9.7 | 2 - 10 % | [facility] | | | | | | A MEDICAL | | | | | | CENTER | | + + + + + + | BANDS % | FAMILY PROTECTION SPECIALIST | 0 - 7 % | [facility] | | | | | | A MEDICAL | | | | | | CENTER | | + + + + + + | NEUTRO % | 69 | 40 - 70 % | [facility] | | | | | | A MEDICAL | | | | | | CENTER | | + + + + + + | LYMPHOCYTE | 18 | 10 - 45 % | [facility] | | | %, MANUAL | | | A MEDICAL | | | | | | CENTER | | + + + + + + | MONOCYTE%, | 9 | 2 - 10 % | [facility] [...] + + + + | BASOPHIL%, | FAMILY PROTECTION SPECIALIST | 0 - 1 % | [facility] | | | MANUAL | | | A MEDICAL | | | | | | CENTER | | + + + + + + | REACTIVE | FAMILY PROTECTION SPECIALIST | 0.0 - 4.0 % | [facility] | | | LYMPHS % | | | A MEDICAL | | | | | | CENTER | | + + + + + + | BANDS % | FAMILY PROTECTION SPECIALIST | 0 - 7 % | [facility] | | | | | | A MEDICAL | | | | | | CENTER | | + + + + + + | METAMYELOCY | FAMILY PROTECTION SPECIALIST | 0 - 0 % | [facility] | | | BRANDON % | | | A MEDICAL | | | | | | CENTER | | + + + + + + | MYELOCYTES | FAMILY PROTECTION SPECIALIST | 0 - 0 % | [facility] | | | % | | | A MEDICAL | | | | | | CENTER | | + + + + + + | PROMYELOCYT | FAMILY PROTECTION SPECIALIST | 0 - 0 % | [facility] | | | ES % | | | A MEDICAL | | | | | | CENTER | | + + + + + + | BLASTS | FAMILY PROTECTION SPECIALIST | 0 - 0 % | [...] + + + + | RBC | 1+ANISOCYTOSIS | NORMAL | [facility] | | | [...] + + + + | NUCLEATED | FAMILY PROTECTION SPECIALIST | | [facility] | | | RBCS | | | A MEDICAL | | | | | | CENTER | | + + + + + + | GIANT PLT | FAMILY PROTECTION SPECIALIST | | [facility] | | | [...] | + + + + + | [facility] | And | [place] [address] | | | [facility] | Streets | | | + + + + + COMPLETE METABOLIC SET (NA,K,CL,CO2,BUN,CREAT,GLUC,CA,AST,ALT,BILI TOTAL,ALK PHOS,ALB,PROT TOTAL) (10/17/2008 11:45 AM PDT) + + + + + [...] + + + + | GLUCOSE, | 100 | 70 - 105 MG/DL | [facility] [...] + + + + | CALCIUM, | 10.0 | 8.5 - 10.8 | [facility] | | | PLASMA | | MG/DL | A MEDICAL | | | (LAB) | | | CENTER | | + + + + + + | AST(SGOT) | 27 | 10 - 41 U/L | [facility] [...] + + + | ALK PHOS | 65 | 40 - 180 U/L | [facility] | | | | | | A MEDICAL | | | | | | CENTER | | + + + + + + | TOTAL | 7.3 | 6.7 - 8.5 G/DL | [facility] | | | PROTEIN, | | | A MEDICAL | | | PLASMA | | | CENTER | | | (LAB) | | | | | + + + + + + | ALBUMIN, | 4.2 | 3.5 - 5.0 G/DL | [facility] | | | PLASMA | | | A MEDICAL | | | (LAB) | | | CENTER | | + + + + + + | BILIRUBIN | 0.8 | 0.2 - 1.6 MG/DL | [facility] | | | TOTAL | | | A MEDICAL | | | | | | CENTER | | + + + + + + | FASTING? | UNKNOWN | HR | [facility] | | | | | | A [...] + | [facility] | And | [place] [address] | | | [facility] | [facility] | | | + + + + + documented in this encounter Visit Diagnoses Not on filedocumented in this encounter"
--- OUTSIDE RECORDS SUMMARY | ~2019-04-25 | XMS | Encounter Summary ---
Demographics + + + | Address | [address] | | | [place] [address] | + + + | Home Phone [...] [place] | | | | | [address] | | + + + + + Care Team Providers + +------+ + | Care Exhauster Name | Role | Phone | + +------+ + | Kerri Chavarria NP | PCP | | + +------+ + Encounter Details +--------+ + + + + | Date | Type | Department | Care Team | Description | +--------+ + + + + | 03/24/ | Documentati | Digestive Health | Yakov Machuca MD | | | 2011 | on | [facility] [address] | [address] | | | | | [address] | [place], [place] | | | | | Mailcode: Center | [address] | | | | | for Health and | [phone] | | | | | [facility] [address] | | | | | | [place], [place] | | | | | | [address] | | | | | | [phone] | | | +--------+ + + + [...] + + | 04/29/ | Diagnostic | Wafer Polishing Lead Worker | Marce Meyer | | | 2019 | Visit | | Eve Briseno [address] | | | | | | [address] | | | | | | [place], [place] | | | | | | [address] | | +--------+ + + + + documented as of this encounter Visit Diagnoses Not on filedocumented in this encounter"
--- OUTSIDE RECORDS SUMMARY | ~2019-04-25 | XMS | Encounter Summary ---
Demographics + + + | Address | [address] | | | [place] [address] | + + + | Home Phone [...] [place] | | | | | [address] | | + + + + + Care Team Providers + +------+ + | Care Laborer Powerhouse Name | Role | Phone | + +------+ + | Maurice Zelaya MD | PCP | | + +------+ + Encounter Details +--------+ + + + + | Date | Type | Department | Care Team | Description | +--------+ + + + + | 09/28/ | Documentati | Otolaryngology | Pascual Pace, | | | 2018 | on | Audiology Services | STEPHAN[address] | | | | | at [facility] [address] | [address] [facility] | | | | | [address] | [facility] [place] | | | | | Mailcode: PV01 | [id number] | | | | | [facility] | | | | | | [place], [place] | | | | | | [address] | | | | | | [phone] | | | +--------+ + + + [...] + + | 04/29/ | Diagnostic | [employer] | Marce Meyer | | | 2019 | Visit | | Eve Briseno [address] | | | | | | [address] | | | | | | [place], [place] | | | | | | [address] | | +--------+ + + + + documented as of this encounter Visit Diagnoses Not on filedocumented in this encounter"
--- OUTSIDE RECORDS SUMMARY | ~2019-04-25 | XMS | Encounter Summary ---
Demographics + + + | Address | [address] | | | [place] [address] | + + + | Home Phone [...] [place] | | | | | [address] | | + + + + + Care Team Providers + +------+ + | Care Merit System Director Name | Role | Phone | + +------+ + | Stephie Deidre Jaleesa | PCP | | + +------+ + Reason for Visit + + + | Reason | Comments | + + + | Hearing loss | Batteries & Magnet | + + + Encounter Details +--------+ + + + + | Date | Type | Department | Care Team | Description | +--------+ + + + + | 09/02/ | Telephone | Otolaryngology | Haroon Poe, | Hearing loss | | 2007 | | Cochlear Services | PhD | (Batteries & Magnet) | | | | [address] | | | | | | [place] Mailcode: | | | | | | [address] | | | | | | [place], | | | | | | [place] [address] | | | | | | [phone] | | | +--------+ + + + [...] + + | 04/29/ | Diagnostic | Felling Bucking Supervisor | Marce Meyer | | | 2019 | Visit | | Eve Briseno [address] | | | | | | [address] | | | | | | [place] | | | | | | [address] | | +--------+ + + + + documented as of this encounter Visit Diagnoses Not on filedocumented in this encounter"
--- OUTSIDE RECORDS SUMMARY | ~2019-04-25 | XMS | Encounter Summary ---
Demographics + + + | Address | [address] | | | [place] [address] | + + + | Home Phone [...] [place] | | | | | [address] | | + + + + + Care Team Providers + +------+ + | Care Proposal Consultant Name | Role | Phone | [...] | Tj Mailcode: [id number] | [place], | | | | | [place], [place] | [place] [address] | | | | | [address] | [phone] | | | | | [phone] | | | +--------+ + + + [...] + | 04/29/ | Diagnostic | Plastic Eye Technician | Marce Meyer | | | 2019 | Visit | | Eve Briseno [address] | | | | | | [address] | | | | | | [place], [place] | | | | | | [address] | | +--------+ + + + + documented as of this encounter Visit Diagnoses Not on filedocumented in this encounter"
--- OUTSIDE RECORDS SUMMARY | ~2019-04-25 | XMS | Encounter Summary ---
Demographics + + + | Address | [address] | | | [place] [address] | + + + | Home Phone [...] [place] | | | | | [address] | | + + + + + Care Team Providers + +------+ + | Care Behavioral Therapist Name | Role | Phone | + +------+ + | Jaison Chávez MD | PCP | | + +------+ + Encounter Details +--------+ + + + + | Date | Type | Department | Care Team | Description | +--------+ + + + + | 09/19/ | Documentati | Otolaryngology | Mahnaz Chávez, | | | 2013 | on | Cochlear Services | [facility] [address] | | | | | [address] | [address] | | | | | [place] Mailcode: | [place], [place] | | | | | [address] | [address] | | | | | [place], | | | | | | [place] [address] | | | | | | [phone] | | | +--------+ + + + [...] + + | 04/29/ | Diagnostic | Lead Technician | Marce Meyer | | | 2019 | Visit | | Eve Briseno [address] | | | | | | [address] | | | | | | [place], [place] | | | | | | [address] | | +--------+ + + + + documented as of this encounter Visit Diagnoses Not on filedocumented in this encounter"
--- OUTSIDE RECORDS SUMMARY | ~2019-04-25 | XMS | Encounter Summary ---
Demographics + + + | Address | [address] | | | [place] [address] | + + + | Home Phone [...] Author + + + | Author | [facility] | + + + | Organization | [facility] | + + + [...] [place] | | | | | [address] | | + + + + + Care Team Providers + +------+ + | Care Overnight Houseperson Name | Role | Phone | + +------+ + | Maurice Zelaya MD | PCP | | + +------+ + Encounter Details +--------+ + + + + | Date | Type | Department | Care Team | Description | +--------+ + + + + | 04/04/ | Procedure - | [facility] [address] | Marcos Villanueva | Operative Report | | 2007 | | E The | MD Lars [address] | | | | Transcribed | [place] | [address] [facility] | | | | | [address] | [place] [address] | | | | | | [phone] | | | | | | | [...] + + | 04/29/ | Diagnostic | Tariff Compiler | Marce Meyer | | | 2019 | Visit | | Eve Briseno [address] | | | | | | [address] | | | | | | [place], [place] | | | | | | [address] | | +--------+ + + + + documented as of this encounter Procedures + +--------+ + + + | Procedure Name | Priori | Date/Time | Associated Diagnosis | Comments | | | ty | | | | + +--------+ + + + | OPERATION RECORD | | 04/04/2008 | | Results for this | | | | 8:32 AM | | procedure are in the | | | | PDT | | results section. | + +--------+ + + + documented in this encounter Results OPERATION RECORD (04/04/2008 8:32 AM PDT) + + | Transcriptions | + + | Marcos Villanueva MD - 04/04/2008 2:29 PM [facility] | | CENTER | | REPORT | | OF [id number] [place], [place] [address]RLEN OF OPERATION: | | 04/04/2008SURGEON: Marcos Villanueva M.D.PREPROCEDURE DIAGNOSES:1. Lower | | gastrointestinal bleeding.2. Epigastric abdominal pain.3. Dysphagia.POSTPROCEDURE | | DIAGNOSES:1. Lower gastrointestinal bleeding.2. Epigastric abdominal pain.3. | | Dysphagia.PROCEDURE:1. Colonoscopy.2. Upper endoscopy with CLOtest biopsy.ANESTHESIA: | | IV sedation per protocol.INTRAOPERATIVE FINDINGS: Colonoscopic evaluation was carried | | out from the analverge to the cecum. There were found to be no large intraluminal | | masses,colorectal polyps, diverticular disease, mucosal inflammation or active bleeding | | orabnormalities upon retroflexion in the rectum. The mucosa at the anal verge,however, | | was found to be somewhat friable.Upper endoscopic evaluation was done from the | | oropharynx to the second portion ofthe duodenum. The patient was found to have a normal | | esophageal course, withoutevidence of narrowing, strictures, Schatzki's rings, hiatal | | hernia, distalesophagitis or masses. The stomach and duodenum were unremarkable. A | | CLOtestbiopsy was performed.DESCRIPTION OF PROCEDURE: With the patient on the endoscopy | | table in the supineposition, an IV was started. The patient's sedation was titrated as | | per theanesthesia record. The patient was monitored with the pulse oximeter, | | bloodpressure cuff and electrocardiogram. The patient was then placed in the | | leftlateral decubitus position. The Pentax colonoscope was passed through the anus,into | | the rectum and distally through the remainder of the colon until the cecum | | wasidentified. The cecum was identified by visualizing the ileocecal valve,coalescence | | of tinea and the appendiceal orifice, as well as localization of thelight in the right | | lower quadrant. The colonoscope was then gradually removed,examining the mucosa | | circumferentially.Please see findings for details of abnormalities or any manipulations | | performed.After the colonoscope was completed, the scope was removed.DESCRIPTION OF | | PROCEDURE: With the patient on the endoscopy table in the supineHAGGARDEDGAR | | [id number] DATE: 04/04/08position, an IV was started. The patient's | | sedation was titrated as per theanesthesia record. The patient was placed in the left | | lateral decubitus positionand the Pentax gastroscope was introduced into the oropharynx | | and passed into theesophagus without difficulty and distally through the esophagus. The | | mucosa wasexamined circumferentially. The gastroesophageal junction was identified. | | Thescope was passed through this into the stomach. The mucosa of the stomach | | wasexamined. The pylorus was identified and the scope was passed through the | | pylorusinto the duodenum. The duodenal bulb was examined. The second and third | | portionsof the duodenum were also examined. The scope was then pulled back into | | thestomach. The endoscope was then retroflexed to examine the lesser curvature | | andthecardia and the proximal body. After this was accomplished the scope | | wasstraightened and the mucosa was examined again as the scope was completely | | removed.The patient tolerated the procedures well. The procedures were terminated and | | thepatient was discharged home to the care of the family without having suffered | | anyapparent complications. Followup arrangements were made. They were informed tocall | | us if there was any vomiting, fever or abdominal pain.IMPRESSION: Normal upper and | | lower endoscopic evaluations.WALDO/MedQDD: 04/04/2008 09:48:09DT: 04/04/2008 14:20:40Job | | #: [id number]: Jimmy Martinez M.D.Michelle Grothe, | | MARY | | | | | | Electronically | | Signed | | | | | | | | | | | | | | EDGAR Demarco [id number] DATE: 04/04/08 | |[id number] | |ADMIT DATE: 04/04/08 | | | | | | | | | | | |position, an IV was started. The patient's sedation was titrated as per the | |anesthesia record. The patient was placed in the left lateral decubitus position | |and the Pentax gastroscope was introduced into the oropharynx and passed into the | |esophagus without difficulty and distally through the esophagus. The mucosa was | |examined circumferentially. The gastroesophageal junction was identified. The | |scope was passed through this into the stomach. The mucosa of the stomach was | |examined. The pylorus was identified and the scope was passed through the pylorus | |into the duodenum. The duodenal bulb was examined. The second and third portions | |of the duodenum were also examined. The scope was then pulled back into the | |stomach. The endoscope was then retroflexed to examine the lesser curvature and | |the | |cardia and the proximal body. After this was accomplished the scope was | |straightened and the mucosa was examined again as the scope was completely removed. | | | |The patient tolerated the procedures well. The procedures were terminated and the | |patient was discharged home to the care of the family without having suffered any | |apparent complications. Followup arrangements were made. They were informed to | |call us if there was any vomiting, fever or abdominal pain. | | | |IMPRESSION: Normal upper and lower endoscopic evaluations. | | | | | | | |WALDO/Viraj | | | | | | /[id number] | | | | | |cc: Ashley Echevarria M.D. | |Marcos Villanueva M.D. | |Marion Herrera PA-C | | | | | | Electronically Signed | | | | | | | | Marcos Villanueva | | | | | | | | | | | | | | | | | | | | | | | | | | | | | | | | | |EDGAR VIVAR | |[id number] | |[id number] | |ADMIT DATE: 04/04/08 | + + documented in this encounter Visit Diagnoses Not on filedocumented in this encounter"
--- OUTSIDE RECORDS SUMMARY | ~2019-04-25 | XMS | Encounter Summary ---
Demographics + + + | Address | [address] | | | [place] [address] | + + + | Home Phone [...] | Margarito Owusu | ECON | [address] | | | | | [place] | | | | | [address] | | + + + + + Care Team Providers + +------+ + | Care Education Courses Sales Representative Name | Role | Phone | + +------+ + | Maurice Zelaya MD | PCP | | + +------+ + Encounter Details +--------+--------+ + + + | Date | Type | Department | Care Team | Description | +--------+--------+ + + + | 03/09/ | Travel | | | | | 2018 | | | | | +--------+--------+ + [...] + + | 04/29/ | Diagnostic | Creative Manager | Marce Meyer | | | 2019 | Visit | | Eve Briseno [address] | | | | | | [address] | | | | | | [place] | | | | | | [address] | | +--------+ + + + + documented as of this encounter Visit Diagnoses Not on filedocumented in this encounter"
--- OUTSIDE RECORDS SUMMARY | ~2019-04-25 | XMS | Encounter Summary ---
Demographics + + + | Address | [address] | | | [place] [address] | + + + | Home Phone [...] [place] | | | | | [address] | | + + + + + Care Team Providers + +------+ + | Care Museum Librarian Name | Role | Phone | + +------+ + | Cee Triana MD | PCP | Unavailable | + +------+ + Encounter Details +--------+------+ + + + | Date | Type | Department | Care Team | Description | +--------+------+ + + + | 10/06/ | Lab | Laboratory at [facility] | | Abdominal wall fluid | | 2012 | | [address] | | collections | | | | [place], [place] | | | | | | [address] | | | | | | [phone] | | | +--------+------+ + + + [...] + + | 04/29/ | Diagnostic | Field Sales Representative | Marce Meyer | | | 2019 | Visit | | K, AuD [address] [address] | | | | | | [address] | | | | | | [place], [place] | | | | | | [address] | | +--------+ + + + + documented as of this encounter Procedures + +--------+ + + + | Procedure Name | Priori | Date/Time | Associated Diagnosis | Comments | | | ty | | | | + +--------+ + + + | CBC ONLY | Routin | 10/06/2012 | Abdominal wall | Results for this | | | e | 9:10 AM | fluid collections | procedure are in the | | | | PDT | | results section. | + +--------+ + + + | RENAL FUNCTION SET | Routin | 10/06/2012 | Abdominal wall | Results for this | | (NA,K,CL,CO2,BUN,CRE | e | 9:10 AM | fluid collections | procedure are in the | | AT,GLUC,CA,PHOS,ALB | | PDT | | results section. | | ) | | | | | + +--------+ + + + | CBC ONLY | Routin | 10/06/2012 | Abdominal wall | Results for this | | | e | 9:10 AM | fluid collections | procedure are in the | | | | PDT | | results section. | + +--------+ + + + documented in this encounter Results CBC (10/06/2012 9:10 AM PDT) + + + + + + | Component | Value | Ref Range | Performed | Pathologist | | | | | At | Signature | + + + + + + | WBC COUNT | 7.7 | 4.4 - 11.0 K/cu | [facility] | | | | | mm | LABORATORY | | | | | | SERVICES, | | | | | | CORE | | + + + + + + | RED CELL | 3.95 (L) | 4.50 - 5.90 | [facility] | | | COUNT | | M/cu mm | LABORATORY | | | | | | SERVICES, | | | | | | CORE | | + + + + + + | HEMOGLOBIN | 11.7 (L) | 13.5 - 17.5 | [facility] | | | | | g/dL | LABORATORY | | | | | | SERVICES, | | | | | | CORE | | + + + + + + | HEMATOCRIT | 35.1 (L) | 41.0 - 53.0 % | [facility] | | | | | | LABORATORY | | | | | | SERVICES, | | | | | | CORE | | + + + + + + | MCV | 89.0 | 80.0 - 96.0 fL | [facility] | | | | | | LABORATORY | | | | | | SERVICES, | | | | | | CORE | | + + + + + + | MCHC | 33.4 | 33.4 - 35.5 | [facility] | | | | | g/dL | LABORATORY | | | | | | SERVICES, | | | | | | CORE | | + + + + + + | RDW | 15.0 | 11.5 - 15.0 % | [facility] | | | | | | LABORATORY | | | | | | SERVICES, | | | | | | CORE | | + + + + + + | PLATELET | 213 | 150 - 400 K/cu | [facility] [...] [facility] | [address] | [place] [address] | | | SERVICES, CORE | [address] | | | + + + + + RENAL FUNCTION SET (NA,K,CL,CO2,BUN,CREAT,GLUC,CA,PHOS,ALB ) (10/06/2012 9:10 AM PDT) + +---------+ + + + | Component | Value | Ref Range | Performed | Pathologist | | | | | At | Signature | + +---------+ + + + | GLUCOSE, | 93 | 60 - 99 mg/dL | [facility] | | | PLASMA | | | LABORATORY | | | (LAB) | | | SERVICES, | | | | | | CORE | | + +---------+ + + + | BUN, PLASMA | 11 | 6 - 20 mg/dL | [facility] | | | (LAB) | | | LABORATORY | | | | | | SERVICES, | | | | | | CORE | | + +---------+ + + + | CREATININE | 0.87 | 0.70 - 1.30 | [facility] | | | PLASMA | | mg/dL | LABORATORY | | | (LAB) | | | SERVICES, | | | | | | CORE | | + +---------+ + + + | EGFR | >60 | mL/min | [facility] | | | - | | | LABORATORY | | | [place] | | | SERVICES, | | | | | | CORE | | + +---------+ + + + | EGFR NON | >60 | mL/min | [facility] | | | -[place]OK[place] | | | LABORATORY | | | [place] | | | SERVICES, | | | | | | CORE | | + +---------+ + + + | SODIUM, | 134 (L) | 136 - 145 | [facility] | | | PLASMA | | mmol/L | LABORATORY | | | (LAB) | | | SERVICES, | | | | | | CORE | | + +---------+ + + + | POTASSIUM, | 4.2 | 3.4 - 5.0 | [facility] | | | PLASMA | | mmol/L | LABORATORY | | | (LAB) | | | SERVICES, | | | | | | CORE | | + +---------+ + + + | CHLORIDE, | 98 | 97 - 108 mmol/L | [facility] | | | PLASMA | | | LABORATORY | | | (LAB) | | | SERVICES, | | | | | | CORE | | + +---------+ + + + | TOTAL CO2, | 28 | 21 - 32 mmol/L | [facility] | | | PLASMA | | | LABORATORY | | | (LAB) | | | SERVICES, | | | | | | CORE | | + +---------+ + + + | CALCIUM, | 9.2 | 8.6 - 10.2 | [facility] | | | PLASMA | | mg/dL | LABORATORY | | | (LAB) | | | SERVICES, | | | | | | CORE | | + +---------+ + + + | ALBUMIN, | 3.8 | 3.5 - 4.7 g/dL | [facility] | | | PLASMA | | | LABORATORY | | | (LAB) | | | SERVICES, | | | | | | CORE | | + +---------+ + + + | PHOSPHORUS, | 3.0 | 2.4 - 4.7 mg/dL | [facility] | | | PLASMA [...] + +---------+ + + + | ANION | 8 | 4 - 11 mmol/L | [facility] | | | GAP(ALB | | | LABORATORY | | | CORRECTED) | | | SERVICES, | | | [...] [facility] | [address] | [place] [address] | | | SERVICES, CORE | [address] | | | + + + + + documented in this encounter Visit Diagnoses + + | Diagnosis | + + | Abdominal wall fluid collections Other ascites | + + documented in this encounter"
--- OUTSIDE RECORDS SUMMARY | ~2019-04-25 | XMS | Encounter Summary ---
Demographics + + + | Address | [address] | | | [place] [address] | + + + | Home Phone [...] [place] | | | | | [address] | | + + + + + Care Team Providers + +------+ + | Care Floor Scraper Name | Role | Phone | + [...] + + + | Closed | | Mainframe Programmer Analyst | Diagnoses | Angelo Carder, | | | | | Neural | Deidre Lazcano | Haroon, PhD | | | | | hearing | [place] | [address] | | | | | loss, | INTERNAL | [address] | | | | | bilateral | MEDICINE | [address] [place], | | | | | [phone] | [place] [address] | | | | | | [address] | | | | | | | [address] | | | | | | | [place], | | | | | | | [place] [address] | | | | | | | Phone: | | | | | | | [phone] | | | | | | | Fax: | | | | | | | [phone] | | +--------+--------+ + + + + [...] | | | | | | [place], | | | | | | [place] [address] | | | | | | [phone] | | | +--------+---------+ + + + [...] with his 3G processor attached to his [facility] [address] [facility]. He says that there is no sound, and that he is using 3 batterie s a day. I connected his processor to the [employer], and with activation there was not s ound. Since he can still hear from the [facility] [place], I initiated an RMA for a replacement processor. This will be sent directly to his home. He will then send the broken processor to [facility]. documented in this encou nter Plan of Treatment +--------+ + + + + | Date | Type | Specialty | Care Team | Description | +--------+ + + + + | 04/29/ | Diagnostic | Mainframe Programmer Analyst | Marce Meyer | | | 2018 | Visit | | Eve Briseno [address] | | | | | | [address] | | | | | | [facility] [place] | | | | | | [address] | | +--------+ + + + + documented as of this encounter Visit Diagnoses + + | Diagnosis | + + | Neural hearing loss, bilateral - Primary | + + documented in this encounter"
--- OUTSIDE RECORDS SUMMARY | ~2019-04-25 | XMS | Encounter Summary ---
Demographics + + + | Address | [address] | | | [place] [address] | + + + | Home Phone [...] [place] | | | | | [address] | | + + + + + Care Team Providers + +------+ + | Care X Ray Developer Name | Role | Phone | + +------+ + | Cee Triana MD | PCP | Unavailable | + +------+ + Reason for Visit + + + | Reason | Comments | + + + | Radiology Results | 06/09/2012 - [facility] | + + + Encounter Details +--------+ + + + + | Date | Type | Department | Care Team | Description | +--------+ + + + + | 07/05/ | Abstract | Digestive Health | Ayana Butler, | Radiology Results | | 2011 | | Center at [facility] [address] | MD [address] | (06/09/2012 - | | | | [address] | [place], [place] | [facility]) | | | | Mailcode: [place] | [address] | | | | | [facility] and | [phone] | | | | | [place] [address] | | | | | | [place], [place] | | | | | | [address] | | | | | | [phone] | | | +--------+ + + + [...] + + | 04/29/ | Diagnostic | Fender Mechanic Apprentice | Marce Meyer | | | 2018 | Visit | | Eve Briseno [address] | | | | | | [address] | | | | | | [place], [place] | | | | | | [address] | | +--------+ + + + + documented as of this encounter Visit Diagnoses Not on filedocumented in this encounter"
--- OUTSIDE RECORDS SUMMARY | ~2019-04-25 | XMS | Encounter Summary ---
Demographics + + + | Address | [address] | | | [place] [address] | + + + | Home Phone [...] [place] | | | | | [address] | | + + + + + Care Team Providers + +------+ + | Care Welding Machine Operator Resistance Name | Role | Phone | + +------+ + | aJison Chávez MD | PCP | | + [...] [address] | | | | | [address] | [place], [place] | | | | | Mailcode: [address] | [address] | | | | | [facility] | | | | | | [place], [place] | | | | | | [address] | | | | | | [phone] | | | +--------+ + + + [...] + + | 04/29/ | Diagnostic | Camp Attendant | Marce Meyer | | | 2018 | Visit | | Eve Briseno [address] | | | | | | [address] | | | | | | [place], [place] | | | | | | [address] | | +--------+ + + + + documented as of this encounter Visit Diagnoses Not on filedocumented in this encounter"
--- OUTSIDE RECORDS SUMMARY | ~2019-04-25 | XMS | Encounter Summary ---
Demographics + + + | Address | [address] | | | [place] [address] | + + + | Home Phone [...] [place] | | | | | [address] | | + + + + + Care Team Providers + +------+ + | Care Stripper Printed Circuit Boards Name | Role | Phone | + [...] | | | | | [address] | [address] | | | | | [place] Mailcode: | [address] [place], [place] | | | | | [address] | [address] | | | | | [place], | | | | | | [place] [address] | | | | | | [phone] | | | +--------+ + + + [...] + + | 04/29/ | Diagnostic | Steam Hand | Marce Meyer | | | 2019 | Visit | | Eve Briseno [address] [facility] | | | | | | [address] | | | | | | [place], [place] | | | | | | [address] | | +--------+ + + + + documented as of this encounter Visit Diagnoses Not on filedocumented in this encounter"
--- OUTSIDE RECORDS SUMMARY | ~2019-04-25 | XMS | Encounter Summary ---
Demographics + + + | Address | [address] | | | [place] [address] | + + + | Home Phone | | + + + | Preferred Language | Unknown | + + + | Marital Status | Single | + + + | Yarsani Affiliation | BAP | + + + [...] [place] | | | | | [address] | | + + + + + Care Team Providers + +------+ + | Care Check Airman Name | Role | Phone | + +------+ + | Ender Wagoner MD | PCP | | + +------+ + Encounter Details +--------+ + + + + | Date | Type | Department | Care Team | Description | +--------+ + + + + | 12/17/ | Results/Int | Pulmonary Function | | Chronic airway | | 2011 | erpretation | Lab at [facility] [address] | | obstruction, not | | | | [address] | | elsewhere classified | | | | Mailcode: [id number] | | (Primary Dx) | | | | Paola Perez | | | | | | [place], [place] | | | | | | [address] | | | | | | [phone] | | | +--------+ + + + [...] documented as of this encounter Progress Notes Michele Kirby MD - 12/20/2011 4:07 PM PDT Refer to PFT report. docum ented in this encounter Plan of Treatment +--------+ + + + + | Date | Type | Specialty | Care Team | Description | +--------+ + + + + | 04/29/ | Diagnostic | Point Of Care Specialist | Marce Meyer | | | 2019 | Visit | | K, AuD [address] [facility] [address] [facility] | | | | | | [address] | | | | | | [place], [place] | | | | | | [address] | | +--------+ + + + + documented as of this encounter Procedures + +--------+ + + + | Procedure Name | Priori | Date/Time | Associated Diagnosis | Comments | | | ty | | | | + +--------+ + + + | MD EVAL OF | Routin | 12/20/2011 | Chronic airway | | | BRONCHOSPASM | e | 4:07 PM | obstruction, not | | | | | PDT | elsewhere classified | | + +--------+ + + + [...] | Chronic airway obstruction, not elsewhere classified - Primary | + + documented in this encounter"
--- OUTSIDE RECORDS SUMMARY | ~2019-04-25 | XMS | Encounter Summary ---
Demographics + + + | Address | [address] | | | [place] [address] | + + + | Home Phone [...] [place] | | | | | [address] | | + + + + + Care Team Providers + +------+ + | Care Underwater Hunter Trapper Name | Role | Phone | + [...] 2011 | erpretation | Lab at [facility] [address] | | obstruction, not | | | | [address] | | elsewhere classified | | | | Mailcode: [id number] | | (Primary Dx) | | | | Paola Perez | | | | | | [place], [place] | | | | | | [address] | | | | | | [phone] | | | +--------+ + + + [...] + + | 04/29/ | Diagnostic | Acid Recovery Operator | Marce Meyer | | | 2019 | Visit | | K, AuD [address] [facility] | | | | | | [address] | | | | | | [place], [place] | | | | | | [address] | | +--------+ + + + + documented as of this encounter Procedures + +--------+ + + + | Procedure Name | Priori | Date/Time | Associated Diagnosis | Comments | | | ty | | | | + +--------+ + + + | [place] EVAL OF | Routin | 12/20/2011 | [...]
--- OUTSIDE RECORDS SUMMARY | ~2019-04-25 | XMS | Encounter Summary ---
Demographics + + + | Address | [address] | | | [place] [address] | + + + | Home Phone [...] [place] | | | | | [address] | | + + + + + Care Team Providers + +------+ + | Care Certified Ophthalmic Medical Technician Name | Role | Phone | + +------+ + | Maurice Zelaya MD | PCP | | + +------+ + Encounter Details +--------+ + + + + | Date | Type | Department | Care Team | Description | +--------+ + + + + | 12/11/ | Ancillary | Registration [address] | Jose Franco, | | | 2004 | Registratio | [address] | [address] [place] [address] | | | | [address] | [address] Mailcode: [id number] | [address] [place] | | | | | [place], [place] | [place] [address] | | | | | [address] | [phone] | | | | | [phone] | (Fax) | | +--------+ + + [...] + + | 04/29/ | Diagnostic | Quantitative Analyst Marketing | Marce Meyer | | | 2019 | Visit | | Eve Briseno [address] [facility] | | | | | | [address] | | | | | | [place], [place] | | | | | | [address] | | +--------+ + + + + documented as of this encounter Visit Diagnoses Not on filedocumented in this encounter"
--- OUTSIDE RECORDS SUMMARY | ~2019-04-25 | XMS | Encounter Summary ---
Demographics + + + | Address | [address] | | | [place] [address] | + + + | Home Phone [...] [place] | | | | | [address] | | + + + + + Care Team Providers + +------+ + | Care Railway Signal Technician Name | Role | Phone | [...] + + + + | 02/11/ | Documentati | Otolaryngology | Pascual Pace, | Hearing loss | | 2009 | on | Hearing | Melodie [facility] [address] | | | | | Amplification | [address] | | | | | [address] [place], [place] | | | | | [address] | [address] | | | | | Mailcode: [id number] | | | | | | [address] | | | | | | [place], [place] | | | | | | [address] | | | | | | [phone] | | | +--------+ + + + [...] + + | 04/29/ | Diagnostic | Worm Packer | Marce Meyer | | | 2019 | Visit | | Eve Briseno [address] | | | | | | [address] | | | | | | [facility] [place] | | | | | | [address] | | +--------+ + + + + documented as of this encounter Visit Diagnoses Not on filedocumented in this encounter"
--- OUTSIDE RECORDS SUMMARY | ~2019-04-25 | XMS | Encounter Summary ---
Demographics + + + | Address | [address] | | | [place] [address] | + + + | Home Phone [...] [place] | | | | | [address] | | + + + + + Care Team Providers + +------+ + | Care Certified Diabetes Educator Name | Role | Phone | + [...] 2015 | | Audiology Services | Melodie [facility] [address] | | | | | at [facility] [address] | [address] [address] | | | | | [address] | [place], [place] | | | | | Mailcode: [id number] | [address] | | | | | [address] | | | | | | [place], [place] | | | | | | [address] | | | | | | [phone] | | | +--------+ + + + [...] + + | 04/29/ | Diagnostic | Plane Tender | Marce Meyer | | | 2019 | Visit | | Eve Briseno [address] [facility] | | | | | | [address] | | | | | | [place] | | | | | | [address] | | +--------+ + + + + documented as of this encounter Visit Diagnoses Not on filedocumented in this encounter"
--- OUTSIDE RECORDS SUMMARY | ~2019-04-25 | XMS | Encounter Summary ---
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
--- OUTSIDE RECORDS SUMMARY | ~2019-04-25 | XMS | Encounter Summary ---
Demographics + + + | Address | [address] | | | [place] [address] | + + + | Home Phone [...] [place] | | | | | [address] | | + + + + + Care Team Providers + +------+ + | Care Educational Program Director Name | Role | Phone | [...] + + | 12/06/ | Office | Preoperative | Sosa Marierice | Preop examination | | 2013 | Visit | [facility] | A, FINGERPRINT CLERK [facility] | (Primary Dx); | | | | MPV | [address] | Cholesteatoma; Other | | | | Stay [facility] | [place], [place] | specified | | | | [address] | [address] | pre-operative | | | | Mailcode: [id number] | [phone] | examination | | | | Paola Perez | | | | | | [address] [place], [place] | | | | | | [address] | | | | | | [phone] | | | +--------+---------+ + + + Anesthesia Record + + + + + | Procedure Name | Responsible | Anesthesia Start | Anesthesia Stop Time | | | Anesthesiologist | Time | | + + + + + | RIGHT TYMPANOPLASTY | Julián Alfred, | 12/22/13 1556 | 12/22/13 5154 | | WITH CANAL WALL | MD | | | | DOWN, (Right Ear) | | | | + + + + + +----+---+ + + | Da | T | Event | Comment | | te | i | | | | | m | | | | | e | | | +----+---+ + + | 05 | 1 | | | | /2 | 5 | | | | 9/ | 4 | | | | 20 | 7 | | | | 14 | | | | +----+---+ + + | | 1 | Pt. Check | Prior to anesthesia start, pt. Identified, examined, chart | | | 5 | | reviewed, PARQ held, anesthetic plan made or approved by | | | 4 | | attending anesthesiologist. NPO status confirmed as appropriate | | | 7 | | for procedure Preoperative evaluation: unchanged | +----+---+ + + | | 1 | Eq Check | Anesthesia machine checked Equipment verified | | | 5 | | | | | 4 | | | | | 8 | | | +----+---+ + + | | 1 | Quick Note | Finishing pre-op nebulizer | | | 5 | | | | | 5 | | | | | 2 | | | +----+---+ + + | | 1 | An Start | | | | 5 | | | | | 5 | | | | | 6 | | | +----+---+ + + | | 1 | An Start | | | | 5 | Data | | | | 5 | | | | | 8 | | | +----+---+ + + | | 1 | Vitals | Monitors applied Vital signs checked Patient ready for anesthesia | | | 6 | Checked | | | | 0 | | | | | 2 | | | +----+---+ + + | | 1 | Std. Airway | | | | 6 | Mgt. | | | | 0 | | | | | 7 | | | +----+---+ + + | | 1 | Ready | | | | 6 | | | | | 0 | | | | | 7 | | | +----+---+ + + | | 1 | Abx | | | | 6 | Administere | | | | 1 | d | | | | 5 | | | +----+---+ + + | | 1 | Incision | | | | 6 | | | | | 2 | | | | | 4 | | | +----+---+ + + | | 1 | Quick Note | POC glucose 95 | | | 6 | | | | | 4 | | | | | 8 | | | +----+---+ + + | | 1 | Surgery end | | | | 7 | | | | | 2 | | | | | 3 | | | +----+---+ + + | | 1 | An Extubate | Neuromuscular function Intact. Pharynx suctioned. Patient obeys | | | 7 | | commands. Adequate pulmonary mechanics. | | | 2 | | | | | 5 | | | +----+---+ + + | | 1 | an stop | | | | 7 | data | | | | 2 | | | | | 6 | | | +----+---+ + + | | 1 | Anesthesia | | | | 7 | End | | | | 3 | | | | | 4 | | | +----+---+ + + +------+ [...] +--------+ + + + | RETIRE | 09/17/12; 1929; 05/14/17 | 09/17/121929 by | 05/14/171621 by | | D - | (Automatic cleanup per RA | Cara Waite RN | Discontinued After | | Drains | 3006--contact admin for | | Discharge | | | questions.); 162 (Automatic | | | | (wound | cleanup per RA 3006--contact | | | | s/surg | admin for questions.); No; | | | | ical) | Abdominal Drain; 10; | | | | | Multi-Purpose; Midline, Lower; | | | | | Abdomen | | | +--------+ + + + | RETIRE | 12/22/13; 1258; 12/22/13; 182; | 12/22/13 1258 by | 12/22/13 182 by | | D - | No; 20; Left; Hand; None; No; | Eliana Hughes | Millicent Pompa RN | | Periph | Positive; Therapy completed | | | | eral | | | | | Line | | | | +--------+ + + + | RETIRE | 12/22/13; 1644; right ear | 12/22/13 1644 by | 12/22/131822 by | | D - | surgical site; No; Right:; | Sheila Meadows RN | Millicent Pompa RN | | Incisi | 12/22/13; 1822 | | | | on | | | | +--------+ + + [...] + + + | Blood Pressure | 132/88 | 12/06/2013 3:10 PM | | | | | PDT | | + + + + + | Pulse | 89 | 12/06/2013 3:10 PM | | | | | PDT | | + + + + + | Temperature | 36.7 C (98.1 F) | 12/06/2013 3:10 PM | | | | | PDT | | + + + + + | Respiratory Rate | 22 | 12/06/2013 4:00 PM | | | | | PDT | | + + + + + | Oxygen Saturation | 96% | 12/06/2013 4:00 PM | | | | | PDT | | + + + + + | Inhaled Oxygen | - | - | | | Concentration | | | | + + + + + | Weight | 124.3 kg (274 lb) | 12/06/2013 3:10 PM | | | | | PDT | | + + + + + | Height | 184.8 cm (6' 0.75") | 12/06/2013 3:10 PM | neck 51cm | | | | PDT | | + + + + + | Body Mass Index | 36.4 | 12/06/2013 3:10 PM | | | | | PDT | | + + + + + documented in this encounter Patient Instructions Patient Instructions Cindy Marie NP - 12/06/2013 3:39 PM PDT PREOPERATIVE INSTRUCTIONS Empty stomach before surgery On the day BEFORE your surgery, drink plenty of fluids and stay well hydrated NOTHING to eat or drink after midnight the night before surgery. This includes water, coffee, candy, mints, gum. Take your inhalers,nebulizer morning of surgery and bring them in. Medications Instructions TAKE ONLY the following medications with a sip of water on the morning of surgery (if yo u normally take a morning dose): carBAMazepine levothyroxine lurasidone (LATUDA) omeprazole (PRILOSEC) prazosin propranolol topiramate trimethoprim-sulfamethoxazole (BACTRIM DS) Tramadol if needed Hydrocodone if needed Ativan as needed Unless otherwise directed by your surgeon, [...] are taking, please contact our office . Other Important Guidelines Do not shave the [...] or walk. Surgery Check in Locations Admitting [facility], ninth floor [facility] Day Stay Unit - [facility], 4th floor Room 4515 Surgery Check in Time: The Preoperative Medicine [...] assist you and look after you on e first night after you have undergone [...] it is after office hours, call the [facility] black ash burner operator at [phone] and ask them to page him or h er. Preparing For Your Surgery Video -- 7 minutes of instructions! Access the [facility] website [email or web address] --> POPULAR RESOURCES --> Patient Guide --> Preparing for your Visit or Surgery --> "Preparing for Your Surgery" video link documented in this encounter Progress Notes Cindy Marie NP - 12/15/2013 4:09 PM PDTPatient called and reported that his PCP ad ded Lantus insulin 14 units in the AM. Medication list was updated. Patient was instructed t o take 50% of his Lantus insulin morning of surgery and to bring glucose tablets with him. P atient verbalizes understanding and agrees to the plan. aribel Luna MA - 12/06/2013 5:03 PM PDT Venipuncture performed in clinic, blood sample obtained from Right antecubital site Hemoglo bin A1C POCT performed during clinic visit. Blood sample obtained from venipuncture performe d to obtain other lab tests. Cindy Linda N P - 12/06/2013 3:21 PM PDT PREOPERATIVE CONSULT NOTE Consulting Provider: CINDY MARIE NP Referring Physician: Dimitrios Primary Care Provider: Jaison Chávez MD Reason for Consult: Preoperative evaluation and risk assessment Proposed Procedure/Date: RIGHT TYMPANOPLASTY WITH CANAL WALL DOWN, MEATOPLASTY, NERVE MONIT ORING 12/22/13 MPV HISTORY OF PRESENT ILLNESS: Edgar Marquez is a 48 y.o. male here for preoperative ev aluation for above procedure. Pt has dx of recurrent right sided cholesteatoma with chronic ear infections and hearing lo ss. PMH: WV, CAD,DM, HLD, COPD, asthma, SUSAN, seizures, illiteracy?, and disabled chronic tayler nt pain. His procedure was previously cancelled for COPD exacerbation and he was directed to quit smoking. He has no hx nor symptoms of CHF, CVA, CKD or DM (treated with insulin). Functional capac ity is Low. Current Medication List Name Sig ALBUTEROL SULFATE HFA 90 MCG/ACTUATION AEROSOL INHALER Inhale every four hours as needed. ASPIRIN 81 MG TABLET Take 1 Tab by mouth once daily. CARBAMAZEPINE 200 MG TABLET Take by mouth. One tablet in AM and two tablets in the afterno on CLINDAMYCIN 300 MG CAPSULE Take 1 capsule by mouth every eight hours for 5 days. CYCLOBENZAPRINE 10 MG TABLET Take 10 mg by mouth three times daily as needed. Do not use lo nger than 2-3 weeks. DOCUSATE SODIUM 100 MG CAPSULE Take 1 Cap by mouth two times daily. FLUTICASONE 250 MCG-SALMETEROL 50 MCG/DOSE BLISTR POWDR FOR INHALATION Inhale 1 Puff two ti mes daily. FUROSEMIDE 20 MG TABLET Take 20 mg by mouth once daily. 1/2 tab twice a day HYDROCHLOROTHIAZIDE 25 MG TABLET Take 25 mg by mouth once daily. HYDROCODONE 5 MG-ACETAMINOPHEN 325 MG TABLET Take 1-2 tablets by mouth every four hours as needed for moderate pain or severe pain. Not to exceed 3250 mg of acetaminophen from all pro ducts per 24 hour period. HYDROCODONE 5 MG-ACETAMINOPHEN 500 MG TABLET Take 1 tablet by mouth every six hours as need ed. Not to exceed 3250 mg of acetaminophen from all products per 24 hour period. IPRATROPIUM BROMIDE 0.02 % SOLUTION FOR INHALATION Inhale three times daily. LEVOTHYROXINE 25 MCG TABLET Take 25 mcg by mouth before breakfast. LISINOPRIL 40 MG TABLET Take 40 mg by mouth once daily. LORAZEPAM 2 MG TABLET Take 2 mg by mouth every four hours as needed. LURASIDONE 40 MG TABLET Take by mouth once daily. MAGNESIUM HYDROXIDE 400 MG/5 ML ORAL SUSPENSION Take 30 mL by mouth once daily as needed. METFORMIN 1,000 MG TABLET Take 1,000 mg by mouth once daily. MIRTAZAPINE 30 MG TABLET Take 30 mg by mouth once daily in the evening. OMEPRAZOLE 20 MG CAPSULE,DELAYED RELEASE Take 20 [...] for naus ea/vomiting. Max dose: 40 mg/day PROMETHAZINE 25 MG TABLET Take 25 mg by mouth four times daily as needed for nausea/vomitin g. PROPRANOLOL 40 MG TABLET Take 40 mg by mouth two times daily. RISPERIDONE 1 MG TABLET Take 1 mg by mouth once daily at bedtime. SENNOSIDES-DOCUSATE SODIUM 8.6 MG-50 MG TABLET Take 1 Tab by mouth two times daily. SIMETHICONE 80 MG CHEWABLE TABLET Take 80 mg by mouth four times daily as needed for bloati ng. TIOTROPIUM BROMIDE 18 MCG CAPSULE WITH INHALATION DEVICE Inhale 18 mcg once daily. TOPIRAMATE 25 MG TABLET Take 25 mg by mouth once daily at bedtime. Allergies Allergen Reactions Morphine Psychosis? Penicillins Rash Past Medical History Diagnosis Date Heart attack 2007 he was started on aspirin Hypertension [...] 06/13/2013 Smokeless tobacco: Never Used Alcohol Use: .5 - 1 oz/week 1-2 drink(s) per week Comment: Pt buys case of beer with [employer] at start of month--drinks that and none for rest of month PHYSICAL EXAM: Last Vitals: BP 132/88 | Pulse 89 | Temp (Src) 36.7 C (98.1 F) (Oral) | RR 22 | Ht 1.84 8 m (6' 0.75") | Wt 124.286 kg (274 lb) | SpO2 96% | BMI 36.39 kg/(m^2) Body mass index is 3 6.39 kg/(m^2). PMC ROS Last edited 12/06/13 1642 by Cindy Marie NP ROS Pertinent HPI: Pulmonary: Last lung infection: 03/2013. Over the last two months he feels that he breathing is better. He had his last cigarette 06/13/13. Has been needing less albuterol. He now has an ipratroprium nebulizer that he uses twice a day as needed. Within Defined Limits except as noted below no cough no shortness of breath no wheezing Pt. Has asthma Classification: Frequency: daily ER Visits: > 6 months Hospital Visits: > 6 months COPD moderate (chronic bronchodilator used) Dx of sleep apnea Uses BiPap/CPAP Cardiovascular: Able to walk very short distances in houses due to severe chronic back pain. Over the last 2 months he denies chest pains, pre-syncope, syncope or palpitations, he has chronic SOB on exertion and reports that he feels it is easier to breath since he quit smoking Within Defined Limits except as noted below Functional Capacity: Low - chest pressure and syncope CAD Cad Sx: past WV Last WV: > 1 year hypertension well controlled Vascular: VASCULAR SYMPTOMS hyperlipidemia no pacemaker GI/Hepatic: Within Defined Limits except as noted below no GI Bleed GERD Control: Well controlled No liver disease no hepatitis : Within Defined Limits except as noted below Other : Types: recurrent UTIs Endo: Within Defined Limits except as noted below Diabetes: type 2, oral hypoglymics Neurological: Recurrent, chronic right ear infections and decreased hearing , recurrent cholesteatoma. Within Defined limits except as noted below Sign/Sx Treatments: Treated w/medications no seizures no HX CORTICOSTEROID psychiatric problem bipolar disorder and depression no dementia Current Pain Level: Current pain level: 10 MS: Within Defined Limits except as noted below no arthritis Heme/Onc: Within Defined Limits except as noted below Pt. has: no active bleeding no Bleeding diathesis / thrombotic bleeding Previous Transfusions: transfusion hx Hx:Unknown Malignancy: no cancer, Location: Metastasis: Skin: Comments: Foul drainage from right ear. Within Defined Limits except as noted below No open wounds or sores No hx MRSA/VRE/Active skin infection Physical Exam General: Patients general appearance: Healthy, Alert, No distress, Cooperative and Age appropriate Head & Neck/Airway: NC/AT; nl appearing ears and nose. Neck ROM: limited TM Distance:Normal Dentition: dentures-upper and dentures-lower Vance: No Mallampati: IV Mouth Opening: > = 3 cm C-Spine: limited flexion Neck Anatomy: Thick, obese Jaw Protrusion: Normal, lower incisors can protrude past upper incisors Lung Exam: Scattered wheezes throughout, RR 22, no retractions. Room air sat 95-96. breath sounds abnormal Cardiac: No murmurs, gallops or rubs. Rhythm: regular Rate: normal Abdominal: Bowel Sounds: bowel sounds are normal Musculoskeletal: Findings: tone normal Neuro/Psych: Alert and appropriate; nl affect. alert Findings: No tremor, Alert, oriented to person, place, time and Normal affect Integument: No open rashes or lesions noted. - lesion, rash and open wounds Color: pink Turgor: turgor normal Implants: ear implant, LAB DATA REVIEWED/ORDERED:yes Lab Results Component Value Date WBC 11.36 12/06/2013 HB 15.1 12/06/2013 HCT 45.0 12/06/2013 PLT 169 12/06/2013 MCV 92.8 12/06/2013 RDW 44.0 12/06/2013 Lab Results Component Value Date NA 136 12/06/2013 K 4.4 12/06/2013 CL 102 12/06/2013 BICARB 25 12/06/2013 BUN 13 12/06/2013 CR 0.99 12/06/2013 GLU 99 12/06/2013 CA 9.8 12/06/2013 AST 22 09/16/2012 ALT 22 09/16/2012 AP 80 09/16/2012 TBILI 0.3 09/16/2012 TP 7.2 09/16/2012 ALB 3.8 10/06/2012 Lab Results Component Value Date ABO A 08/19/2012 RH Negative 08/19/2012 Lab Results Component Value Date A1C 5.5 12/06/2013 EKG: Personally reviewed, SR, posterior QRS axis,consider RVH. No significant change in mor phology from tracing of 08/13/12. MEDICAL DECISION MAKIN ACC/ AHA Perioperative Guidelines 1. Need for emergency noncardiac surgery? b. No -> Proceed to next step. 2. Active Cardiac Conditions? These conditions mandate further investigation and manageme nt. A. Acute WV within 7 days: no B. Unstable angina/Recent WV (7- 30 days): no C. Decompensated CHF: [...] no Rate of cardiac , non fatal WV, non fatal cardiac arrest (RCRI) 0 risk factors - 0.4% 1 risk factors - 1%, 2 risk factors - 7%, 3 or >risk factors - 11% (may benefit from perioperative beta blockers) Risk Factor Recommendations: 1-2 risk factors- proceed with planned surgery with HR control or consider noninvasive testing if it will manager change Surgery Risk: Low Patient-related risk: Estimated ASA class -- 3 ASSESSMENT and RECOMMENDATIONS: Surgical/anesthesia risk assessment: Edgar Marquez is a 48 y.o. male with diagnos is of above scheduled for above. According to ACC/AHA, this patient has 1 clinical risk fac tors and the recommendation is to proceed with planned surgery without additional cardiac te sting. Medication management recommendations: The patient was advised to continue all usual med ications except as noted in Patient Instructions (After Visit Summary given to pt) Perioperative antibiotic prophylaxis: Standard (Consider IV Vanco one hr before procedu re in pts with Cephalosporin/PCN allergy and/or with hx of MRSA). CAD/WV-stable, remote. SUSAN-agrees to bring CPAP. HTN-controlled. DM-controlled, A1c 5.5 today. Seizure disorder-controlled. Chronic incisional hernia-wound has healed since quitting smoking. Bipolar, PTSD, depression-controlled on multiple medications and has regular therapy vis its. GFZX-kkqqdhlt-nkuvhv, improved with smoking cessation. Improved from last visit. O2 sat go es up to 97 on deep breathing on room air and stays at 95-96. He quit smoking 06/13/14. He i s now on albuterol and ipratropium. He has seen his PCP 10/18/13, and he was aware of this ordonez rgery and no changes were made to his pulmonary medication reportedly due to lack of insuran ce coverage. Addendum: 12/07/13: phone conversation with patient: Pt agrees to use his spirometer for reba p breathing 3 times a day every day before surgery, take his ipratropium nebulizer twice a d ay every day before surgery and albuterol as needed, call his PCP and get Advair or equivale nt sample (he reports he tried to get it a couple months ago but his insurance would not cov er it. Addendum;Pt called back and reports he has an appointment with PCP Thursday and that PCP offi ce is saying they require a letter in order for additional inhalers to be prescribed/covered ? Phone conversation with PCP Dr. Chávez:He will work on corticosteroid inhalers that might be covered under patient's insurance. This patient is complex and has moderate to severe COPD/asthma that is poorly controlled, h e has poor access to care as he reports multiple insurance problems, namely that insurance w ill not cover his COPD medications and this is comfirmed by his PCP who reports he will do w hat he can at visit before surgery. He is at risk for post-op pulmonary complications. Thank you for the opportunity to contribute to this patient's care. DONNA Hayden NP [facility] PRE[facility]IC[facility] CLINIC [address] [facility] [address] The patient was also advised regarding NPO requirement, hydration before surgery, showerin g, general body hygiene. All pre-procedure instructions given to the patient. All of patie nt's questions answered and clarified. Patient verbalized understanding of the instructions given. documented in this encounter Plan of Treatment +--------+ + + + + | Date | Type | Specialty | Care Team | Description | +--------+ + + + + | 04/29/ | Diagnostic | [employer] Patrol | Marce Meyer | | | 2018 | Visit | | Eve Briseno [address] [facility] | | | | | | [address] | | | | | | [place], [place] | | | | | | [address] | | +--------+ + + + + documented as of this encounter Procedures + +--------+ + + + | Procedure Name | Priori | Date/Time | Associated Diagnosis | Comments | | | ty | | | | + +--------+ + + + | IN COLLECTION VENOUS | Routin | 12/06/2013 | Other specified | | | BLOOD,VENIPUNCTURE | e | 5:03 PM | pre-operative | | | | | PDT | examination | | + +--------+ + + + | HEMOGLOBIN A1C, POC | Routin | 12/06/2013 | Preop examination | Results for this | | | e | 4:54 PM | | procedure are in the | | | | PDT | | results section. | + +--------+ + + + | 12 LEAD ECG | Routin | 12/06/2013 | Preop examination | Results for this | | | e | 3:28 PM | | procedure are in the | | | | PDT | | results section. | + +--------+ + + + | CBC (HEMOGRAM) ONLY | Routin | 12/06/2013 | Preop examination | Results for this | | | e | 2:54 PM | | procedure are in the | | | | PDT | | results section. | + +--------+ + + + | BASIC METABOLIC SET | Routin | 12/06/2013 | Preop examination | Results for this | | (NA, K, CL, TCO2, | e | 2:54 PM | | procedure are in the | | BUN, CR, GLU, CA) | | PDT | | results section. | + +--------+ + + + | CBC ONLY | Routin | 12/06/2013 | Preop examination | Results for this | | | e | 2:54 PM | | procedure are in the | | | | PDT | | results section. | + +--------+ + + + documented in this encounter Results HEMOGLOBIN A1C,POC (12/06/2013 4:54 PM PDT) + +-------+ + + + | Component | Value | Ref Range | Performed | Pathologist | | | | | At | Signature | + +-------+ + + + | HEMOGLOBIN | 5.5 | 4.0 - 5.7 % | [facility] - | | | A1C,POC | | | [facility]IAN | | | | | | MARKELL [...] - QIAN | [address] | [place], [place] | | | [facility] | [address] | [address] | | | TESTS | | | | + + + + + 12 LEAD ECG (12/06/2013 3:28 PM PDT) + + + + + + | Component | Value | Ref Range | Performed | Pathologist | | | | | At | Signature | + + + + + + | VENTRICULAR | 89 | BPM | [facility] | | | RATE | | | OF | | | | | | CARDIOLOGY | | + + + + + + | ATRIAL RATE | 90 | BPM | [facility] | | | | | | OF | | | | | | CARDIOLOGY | | + + + + + + | P-R | 204 | ms | [facility] | | | INTERVAL | | | OF | | | | | | CARDIOLOGY | | + + + + + + | QRS | 88 | ms | [facility] | | | DURATION | | | OF | | | | | | CARDIOLOGY | | + + + + + + | QT | 360 | ms | [facility] | | | | | | OF | | | | | | CARDIOLOGY | | + + + + + + | QTC | 438 | ms | [facility] | | | | | | OF | | | | | | CARDIOLOGY | | + + + + + + | P AXIS | 65 | degrees | [facility] | | | | | | OF | | | | | | CARDIOLOGY | | + + + + + + | R AXIS | 237 | degrees | [facility] | | | | | | OF | | | | | | CARDIOLOGY | | + + + + + + | T AXIS | 67 | degrees | [facility] | | | | | | OF | | | | | | CARDIOLOGY | | + + + + + + | EKG | SINUS RHYTHMMARKEDLY | | [facility] | | | DIAGNOSIS | POSTERIOR QRS | | OF | | | | AXISCONSIDER RIGHT | | CARDIOLOGY | | | | VENTRICULAR | | | | | | HYPERTROPHY"I have | | | | | | personally interpreted | | | | | | this report, either | | | | | | alone or with a | | | | | | trainee."Confirmed by | | | | | | POPEYE GARCIAS ([id number]) | | | | | | on 12/07/2013 5:01:07 PM | | | | + + + + + + + + | Specimen | + + | | + + + + + | Narrative | Performed At | + + + | Please click | [facility] OF | | on view image for the detailed interpretation from [employer] results. | CARDIOLOGY | + + + + + | Procedure Note | + + | Interface, Cardiology Results - 12/07/2013 5:02 PM PDT Please click on view image | | for the detailed interpretation from [employer] [id number] results. | + + + + + + + | Performing | Address | City/State/Zipcode | Phone Number | | Organization | | | | + + + + + | [facility] | [address] | [place], [place] | | | CARDIOLOGY | [facility] | [address] | | + + + + + CBC (HEMOGRAM) ONLY (12/06/2013 2:54 PM PDT) + + + + + + | Component | Value | Ref Range | Performed | Pathologist | | | | | At | Signature | + + + + + + | WHITE CELL | 11.36 (H) | 4.40 - 11.00 | [facility] | | | COUNT | | K/cu mm | LABORATORY | | | | | | SERVICES, | | | | | | CORE | | + + + + + + | RED CELL | 4.85 | 4.50 - 6.00 | [facility] | | | COUNT | | M/cu mm | LABORATORY | | | | | | SERVICES, | | | | | | CORE | | + + + + + + | HEMOGLOBIN | 15.1 | 13.5 - 17.5 | [facility] | | | | | g/dL | LABORATORY | | | | | | SERVICES, | | | | | | CORE | | + + + + + + | HEMATOCRIT | 45.0 | 41.0 - 53.0 % | [facility] | | | | | | LABORATORY | | | | | | SERVICES, | | | | | | CORE | | + + + + + + | MCV | 92.8 | 80.0 - 96.0 fL | [facility] | | | | | | LABORATORY | | | | | | SERVICES, | | | | | | CORE | | + + + + + + | MCHC | 33.6 | 33.0 - 35.5 | [facility] | | | | | g/dL | LABORATORY | | | | | | SERVICES, | | | | | | CORE | | + + + + + + | RDW SD | 44.0 | 35.1 - 46.3 fL | [facility] | | | | | | LABORATORY | | | | | | SERVICES, | | | | | | CORE | | + + + + + + | PLATELET | 169 | 150 - 400 K/cu | [facility] | | | COUNT | | mm | LABORATORY | | | | | | SERVICES, | | | | | | CORE | | + + + + + + | MPV | 9.2 (L) | 9.7 - 12.3 fL | [facility] | | | | | | LABORATORY | | | | | | SERVICES, | | | | | | CORE | | + + + + + + | NRBC% | 0.0 | 0.0 - 0.3 % | [facility] | | | | | | LABORATORY | | | | | | SERVICES, | | | | | | CORE | | + + + + + + | NRBC# | 0.00 | 0.00 - 0.02 | [facility] | | | | | K/cu mm | LABORATORY | | | | [...] | + + + + + | [facility] | [address] | [place] [address] | | | SERVICES, [place] | [address] | | | + + + + + BASIC METABOLIC SET (NA, K, CL, TCO2, BUN, CR, GLU, CA) (12/06/2013 2:54 PM PDT) + +---------+ + + + | Component | Value | Ref Range | Performed | Pathologist | | | | | At | Signature | + +---------+ + + + | GLUCOSE, | 99 [...] +---------+ + + + | CREATININE | 0.99 | 0.70 - 1.30 | [facility] | | | PLASMA | | mg/dL | LABORATORY | | | (LAB) | | | SERVICES, | | | | | | CORE | | + +---------+ + + + | EGFR | >60 | >60 mL/min | [facility] | | | - | | | LABORATORY | | | TURKISH | | | SERVICES, | | | | | | CORE | | + +---------+ + + + | EGFR NON | >60 | >60 mL/min | [facility] | | | -KOKI | | | LABORATORY | | | RICAN | | | SERVICES, | | | | | | CORE | | + +---------+ + + + | SODIUM, | 136 | 136 - 145 | [facility] | | | PLASMA | | mmol/L | LABORATORY | | | (LAB) | | | SERVICES, | | | | | | CORE | | + +---------+ + + + | POTASSIUM, | 4.4 | 3.4 - 5.0 | [facility] | | | PLASMA | | mmol/L | LABORATORY | | | (LAB) | | | SERVICES, | | | | | | CORE | | + +---------+ + + + | CHLORIDE, | 102 | 97 - 108 mmol/L | [facility] | | | PLASMA | | | LABORATORY | | | (LAB) | | | SERVICES, | | | | | | CORE | | + +---------+ + + + | TOTAL CO2, | 25 | 21 - 32 mmol/L | [facility] | | | PLASMA | | | LABORATORY | | | (LAB) | | | SERVICES, | | | | | | CORE | | + +---------+ + + + | CALCIUM, | 9.8 | 8.6 - 10.2 | [facility] | | | PLASMA | | mg/dL | LABORATORY | | | (LAB) | | | SERVICES, | | | | | | CORE | | + +---------+ + + + | ANION GAP | 9 | mmol/L | [facility] | | | | [...] Performed At | + + + | GFR is estimated using the MDRD equation recommended by the | [facility] | | National Kidney Disease Education Program. Estimated GFR | LABORATORY | | Interpretive Information: <60 mL/min/1.73 sq | SERVICES, CORE | | m Chronic Kidney Disease <15 mL/min/1.73 | | | sq m Kidney Failure Estimated GFR greater | | | that 60 mL/min/1.73 sq m is of limited clinical value. The MDRD | | | equation is not valid in the following situations: - Patients under | | | 18 years of age - Severe malnutrition or obesity - Vegetarian diet | | | - Rapidly changing kidney function | | + + + + + + + + | Performing | Address | City/State/Zipcode | Phone Number | | Organization | | | | + + + + + | [facility] | [address] | [place] [address] | | | SERVICES, CORE | [address] | | | + + + + + documented in this encounter Visit Diagnoses + + | Diagnosis | + + | Preop examination - Primary Preoperative examination, unspecified | + + | Cholesteatoma Cholesteatoma, unspecified | + + | Other specified pre-operative examination | + + documented in this encounter
--- OUTSIDE RECORDS SUMMARY | ~2019-04-25 | XMS | Encounter Summary ---
Demographics + + + | Address | [address] | | | [place] [address] | + + + | Home Phone [...] [place] | | | | | [address] | | + + + + + Care Team Providers + +------+ + | Care Traveling Phlebotomist Name | Role | Phone | + [...] | unspecified, without | | | | [id number] | [address] [place], | mention of | | | | [facility] [place], | [place] [address] | obstruction or | | | | [place] [address] | | gangrene (Primary | | | | [phone] | | Dx) | +--------+ + + [...] + | 04/29/ | Diagnostic | Supervisor Wall Mirror Department | Marce Meyer | | | 2019 | Visit | | Finn, Eve [address] | | | | | | [address] | | | | | | [place], [place] | | | | | | [address] | | +--------+ + + + + [...] AILYN GUPTA | [address] | [place] [address] | | | SERVICES, | [address] | | | | TRANSFUSION MEDICINE | | | | + + + + + documented in this encounter Visit Diagnoses + + | Diagnosis | + + | Ventral hernia, unspecified, without mention of obstruction or gangrene - Primary | + + documented in this encounter"
--- OUTSIDE RECORDS SUMMARY | ~2019-04-25 | XMS | Encounter Summary ---
Demographics + + + | Address | [address] | | | [place] [address] | + + + | Home Phone [...] [place] | | | | | [address] | | + + + + + Care Team Providers + +------+ + | Care Marine Equipment Design Engineer Name | Role | Phone | + +------+ + | Cee Triana MD | PCP | Unavailable | + +------+ + Reason for Visit + + + | Reason | Comments | + + + | Diabetes mellitus | & weight loss plan | | type 2 | | + + + Consultation (Routine) [...] | | | | | unspecified | [address] | [address] | | | | | type | Ave | [address] | | | | | diabetes | [place], [place] | [facility], | | | | | mellitus | [address] | [place] | | | | | without | Phone: | [phone] | | | | | mention of | [phone] | | | | | | complication | Fax: | | | | | | , not stated | [phone] | | | | | | as [...] Description | +--------+---------+ + + + | 12/19/ | Office | Digestive Health | Anita Sargent, | DM2 (diabetes | | 2011 | Visit | Center at [facility] [address] | mellitus, type 2) | | | | [address] | [address] | ([facility]) (Primary Dx); | | | | Mailcode: Center | [place], [place] | Obesity (BMI | | | | for Health and | [address] | 30.0-34.9) | | | | Healing, [address] | | | | | | [place], [place] | | | | | | [address] | | | | | | [phone] | | | +--------+---------+ + + + [...] + + + + | Temperature | - | - | | + + + + + | Respiratory Rate | - | - | | + + + + + | Oxygen Saturation | - | - | | + + + + + | Inhaled Oxygen | - | - | | | Concentration | | | | + + + + + | Weight | 121.2 kg (267 lb 3.2 | 07/14/2012 2:25 PM | | | | oz) | PST | | + + + + + | Height | 188 cm (6' 2") | 07/14/2012 2:25 PM | | | | | PST | | + + + + + | Body Mass Index | 34.31 | 07/14/2012 2:25 PM | | | | | PST | | + + + + + documented in this encounter Progress Notes Anita Sargent, RD - 07/14/2012 2:25 PM PSTFormatting of this note might be different fro m the original. Referred by: Ayana Butler MD Referred for diagnosis: obesity Visit type: Initial Documented time of visit: 2:22 until 3:05. 43 minutes face to face consult with patient. SUBJECTIVE: Questions/ Information desired today: Needs help to lose weight prior to 08/19/12 for surge ry (ventral hernia repair). Hasn't eaten in 3 days to try to lose weight. Quit smoking cigar ettes 3-4 weeks ago; gained from 255 lbs to 275 lbs (on Thursday); now down to 267 lbs today. His pre-op weight goal was 245 lbs. Has had prior diabetic diet education ("lots of it"). FOOD ALLERGIES: No FOOD INTOLERANCES: Dislikes all vegetables other than corn. Can eat raw veggies, but not c ooked. LACTOSE INTOLERANCE: No Energy level: not very good Physical activity: none. Uses a wheelchair. Would like to try upper body exercises but [facility] n't have many options at [facility]. Daily food intake provided: Yes. Gets 3 meals/day at [facility]. Does not like the food that is served there. Had been having 60g CHO per meal & 30g at snacks; isn't sure if he's still receiving a CHO-controlled diet since metformin was d/c'd. Breakfast: eggs, ardon (hates cold cereal & malt-o-meal) Lunch: sandwich and/or soup Dinner: meat, potatoes or pasta Dessert: is available, but pt avoids sweets usually ("too much sugar") Snack: whatever is available (PB&J sandwich, usually) Fluids: water (~1 gallon), coffee w/ creamer (1-2 cups), tries to avoid juice, occasional d iet soda, 2% milk (8oz/d) OBJECTIVE: 46 year old, male Ht Readings from Last 1 Encounters: 07/14/12 1.88 m (6' 2") Wt Readings from Last 1 Encounters: 07/14/12 121.201 kg (267 lb 3.2 oz) BMI: 34.29 Past Medical History Past Medical History Diagnosis Date Other general symptoms Heart attack Hypertension Other and unspecified hyperlipidemia Chronic airway obstruction, not elsewhere classified Shortness of breath GERD (gastroesophageal reflux disease) UTI (urinary tract infection) Diabetes mellitus type II Depressive disorder, not elsewhere classified Anxiety state, unspecified Unspecified nonpsychotic mental disorder Seizure disorder ventral hernia repairs associated with multiple compications, most recently in February 2009 (complications include ex lap x 3 with ileostomy and colostomy placements due to wound dehis cence and infection) Medications: See list in Epic snap shot (includes lasix, remeron) Medications for Diabetes: Metformin was d/c'd recently (~1 month ago) because he was told h is DM was under control; however, he reports his CBGs are 180s (checks every other day) Dietary Supplements: calcium, vitamin D Nutrition related labs to note: see results review, if available Nutrition Diagnosis: obesity grade 1 as evidenced by BMI. DIET ASSESSMENT: Meal times/spacing: usually appropriate, although pt reports not eating x past few days in an attempt to lose weight. Discussed that large fluctuations in weight are likely r/t fluids (noted pt on lasix); encouraged reduced sodium intake & no added salt at the table. Recomme nded having 3 meals a day & not skipping meals. Portions: appear appropriate, although could decrease CHO provision to help promote weight loss. Water intake: appears adequate (unclear if pt is on a fluid restriction) Deficiencies in current diet: Fruits & non-starchy vegetables, possibly calcium EDUCATION PROVIDED: Healthy Plate Model for portion control. Used food models to demonstra te appropriate portions. Pt w/ prior education on CHO-controlled diet & is very knowledgeabl e about CHO sources & portions. Patient's Comprehension: Receptive Stage of change: Action Barrier(s) to education: Yes--hearing impairment & pt reports memory problems Learning style: Patient is Visual learner/Verbal learner Information provided in writing, and used visual aids to demonstrate food portions and food products. PLAN : PATIENT GOALS: 1. 2964-9456 kcal/d, 2g Na, carb-controlled diet for weight loss, 45g carb per meal x 3 me als/day, 15g carb at HS snack 2. Use healthy plate model for portion control 3. See PCP or application processor about restarting Metformin or other DM meds given reports of elevated CBGs 4. Increase physical activity (try Sit & Be Fit or other chair-based exercises) RD phone number, office hours provided to patient. Faxed list of recommendations to care fa deb per pt's request. Follow up as needed to monitor weight. Anita Sargent RD, LD Pager [phone] documented in this en counter Plan of Treatment +--------+ + + + + | Date | Type | Specialty | Care Team | Description | +--------+ + + + + | 04/29/ | Diagnostic | Explosive Ordnance Handler | Marce Meyer | | | 2019 | Visit | | Eve Briseno [address] | | | | | | [address] | | | | | | [place], [place] | | | | | | [address] | | +--------+ + + + + documented as of this encounter Procedures + +--------+ + + + | Procedure Name | Priori | Date/Time | Associated Diagnosis | Comments | | | ty | | | | + +--------+ + + + | MT MNT INITIAL | Routin | 07/14/2012 | DM2 (diabetes | | | ASSESSMNT X15MIN | e | 3:21 PM | mellitus, type 2) | | | | | PST | ([facility]) Obesity (BMI | | | | | | 30.0-34.9) | | + +--------+ + + + documented in this encounter Visit Diagnoses + + | Diagnosis | + + | DM2 (diabetes mellitus, type 2) ([facility]) - Primary Type II or unspecified type diabetes | | mellitus without mention of complication, not stated as uncontrolled | + + | Obesity (BMI 30.0-34.9) Obesity, unspecified | + + documented in this encounter
--- OUTSIDE RECORDS SUMMARY | ~2019-04-25 | XMS | Encounter Summary ---
Demographics + + + | Address | [address] | | | [place] [address] | + + + | Home Phone [...] [place] | | | | | [address] | | + + + + + Care Team Providers + +------+ + | Care Covered Button Maker Name | Role | Phone | [...] [id number] | | | | | | [place], [place] | | | | | | [address] | | | | | | [phone] | | | +--------+ + + + [...] + + | 04/29/ | Diagnostic | Bone Cooking Operator | Marce Meyer | | | 2018 | Visit | | Finn, Eve [address] | | | | | | [address] | | | | | | [place], [place] | | | | | | [address] | | +--------+ + + + + documented as of this encounter Visit Diagnoses Not on filedocumented in this encounter"
--- OUTSIDE RECORDS SUMMARY | ~2019-04-25 | XMS | Encounter Summary ---
Demographics + + + | Address | [address] | | | [place] [address] | + + + | Home Phone [...] [place] | | | | | [address] | | + + + + + Care Team Providers + +------+ + | Care Speech Language Pathology Assistant Name | Role | Phone | [...] 2015 | Only | [address] | [address] | | | | | T[address] Mailcode: [id number] | [place], [place] | | | | | [place], [place] | [address] | | | | | [address] | [phone] | | | | | [phone] | | | +--------+ + + + [...] + + | 04/29/ | Diagnostic | Honey Processor | Marce Meyer | | | 2019 | Visit | | Finn, Eve [address] | | | | | | [address] | | | | | | [place], [place] | | | | | | [address] | | +--------+ + + + + [...]
--- OUTSIDE RECORDS SUMMARY | ~2019-04-25 | XMS | Encounter Summary ---
Demographics + + + | Address | [address] | | | [place] [address] | + + + | Home Phone [...] [place] | | | | | [address] | | + + + + + Care Team Providers + +------+ + | Care Poiser Name | Role | Phone | + +------+ + | Jaison Chávez MD | PCP | | + +------+ + Encounter Details +--------+ + + + + | Date | Type | Department | Care Team | Description | +--------+ + + + + | 03/01/ | Documentati | Otolaryngology | Mahnaz Chávez, | | | 2013 | on | Cochlear Services | [facility] [address] | | | | | [address] | [address] | | | | | Toya Spencer Mailcode: | [place], [place] | | | | | [address] | [address] | | | | | [place], | | | | | | [place] [address] | | | | | | [phone] | | | +--------+ + + + [...] + | 04/29/ | Diagnostic | Manager Implementation | Marce Meyer | | | 2019 | Visit | | Eve Briseno [address] | | | | | | [address] | | | | | | [place], [place] | | | | | | [address] | | +--------+ + + + + documented as of this encounter Visit Diagnoses Not on filedocumented in this encounter"
--- OUTSIDE RECORDS SUMMARY | ~2019-04-25 | XMS | Encounter Summary ---
Demographics + + + | Address | [address] | | | [place] [address] | + + + | Home Phone [...] + + + | Author | [facility] | + + + | Organization | [facility] | + + + | Address | Unknown | + + + | Phone | Unavailable | + + + Support + + + + + | Name | Relationship | Address | Phone | + + + + + | Margarito Owusu | ECON | [address] | | | | | [place] | | | | | [address] | | + + + + + Care Team Providers + +------+ + | Care Extension Service Agent Name | Role | Phone | + +------+ + | Jaison Chávez MD | PCP | | + +------+ + Encounter Details +--------+ + + + + | Date | Type | Department | Care Team | Description | +--------+ + + + + | 12/06/ | Document-Sc | UNKNOWN DEPARTMENT | Unknown . | | | 2013 | anned | [address] | | | | | | [address] | | | | | | [place] | | | | | | [address] | | | +--------+ + + + [...] + + | 04/29/ | Diagnostic | Philosophy Faculty Member | Marce Meyer | | | 2018 | Visit | | Eve Briseno [address] | | | | | | [address] | | | | | | [place] | | | | | | [address] | | +--------+ + + + + documented as of this encounter Visit Diagnoses Not on filedocumented in this encounter"
--- OUTSIDE RECORDS SUMMARY | ~2019-04-25 | XMS | Encounter Summary ---
Demographics + + + | Address | [address] | | | [place] [address] | + + + | Home Phone [...] [place] | | | | | [address] | | + + + + + Care Team Providers + +------+ + | Care Automatic Dry Starch Operator Name | Role | Phone | [...] | PhD | | | | | [address] | | | | | | [place] Mailcode: | | | | | | [address] | | | | | | [place], | | | | | | [place] [address] | | | | | | [phone] | | | +--------+ + + + [...] + + | 04/29/ | Diagnostic | Negative Retoucher | Marce Meyer | | | 2019 | Visit | | Eve Briseno [address] | | | | | | [address] | | | | | | [place] | | | | | | [address] | | +--------+ + + + + documented as of this encounter Visit Diagnoses Not on filedocumented in this encounter"
--- OUTSIDE RECORDS SUMMARY | ~2019-04-25 | XMS | Encounter Summary ---
Demographics + + + | Address | [address] | | | [place] [address] | + + + | Home Phone [...] [place] | | | | | [address] | | + + + + + Care Team Providers + +------+ + | Care Cook Morning Name | Role | Phone | + [...] | | [address] | [place], [place] | | | | | Mailcode: [address] | [address] | | | | | [address] | | | | | | [place], [place] | | | | | | [address] | | | | | | [phone] | | | +--------+ + + + [...] + + | 04/29/ | Diagnostic | Fast Food Worker | Marce Meyer | | | 2019 | Visit | | Eve Briseno [address] | | | | | | [address] | | | | | | [place], [place] | | | | | | [address] | | +--------+ + + + + documented as of this encounter Visit Diagnoses Not on filedocumented in this encounter"
--- OUTSIDE RECORDS SUMMARY | ~2019-04-25 | XMS | Encounter Summary ---
Demographics + + + | Address | [address] | | | [place] [address] | + + + | Home Phone [...] [place] | | | | | [address] | | + + + + + Care Team Providers + +------+ + | Care Concrete Journeyman Name | Role | Phone | + [...] Chris | | | | | | [place], [place] | | | | | | [address] | | | | | | [phone] | | | +--------+ + + + [...] + + | 04/29/ | Diagnostic | Bonding Machine Setter | Marce Meyer | | | 2018 | Visit | | Finn, Eve [address] | | | | | | [address] | | | | | | [place], [place] | | | | | | [address] | | +--------+ + + + + documented as of this encounter Visit Diagnoses + + | Diagnosis | + + | 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
--- OUTSIDE RECORDS SUMMARY | ~2019-04-25 | XMS | Encounter Summary ---
Demographics + + + | Address | [address] | | | [place] [address] | + + + | Home Phone [...] [place] | | | | | [address] | | + + + + + Care Team Providers + +------+ + | Care Digital Hardware Design Engineer Name | Role | Phone [...] | | | | [address] | [address] | | | | | [place] | | | | | | [place] [address] | | | | | | [phone] | | | +--------+ + + + [...] + + | 04/29/ | Diagnostic | Wash Worker | Marce Meyer | | | 2019 | Visit | | Eve Briseno [address] | | | | | | [address] | | | | | | [place] | | | | | | [address] | | +--------+ + + + + documented as of this encounter Visit Diagnoses Not on filedocumented in this encounter"
--- OUTSIDE RECORDS SUMMARY | ~2019-04-25 | XMS | Encounter Summary ---
Demographics + + + | Address | [address] | | | [place] [address] | + + + | Home Phone [...] [place] | | | | | [address] | | + + + + + Care Team Providers + +------+ + | Care Partnership Development Manager Name | Role | Phone | + +------+ + | Jaison Chávez MD | PCP | | + +------+ + Encounter Details +--------+ + + + + | Date | Type | Department | Care Team | Description | +--------+ + + + + | 10/01/ | Results | NON-[facility] EPIC | [facility] [...] + + | 04/29/ | Diagnostic | User Interface Engineer | Marce Meyer | | | 2019 | Visit | | Eve Briseno [address] | | | | | | [address] | | | | | | [place], [place] | | | | | | [address] | | +--------+ + + + + documented as of this encounter Procedures + +--------+ + + + | Procedure Name | Priori | Date/Time | Associated Diagnosis | Comments | | | ty | | | | + +--------+ + + + | CBC W/DIFF, REFLEX | Routin | 10/01/2009 | | Results for this | | | e | 8:00 AM | | procedure are in the | | | | PST | | results section. | + +--------+ + + + | TOBRAMYCIN, TROUGH | Routin | 10/01/2009 | | Results for this | | | e | 8:00 AM | | procedure are in the | | | | PST | | results section. | + +--------+ + + + | COMPLETE METABOLIC | Routin | 10/01/2009 | | Results for this | | SET | e | 8:00 AM | | procedure are in the | | (NA,K,CL,CO2,BUN,CRE | | PST | | results section. | | AT,GLUC,CA,AST,ALT,B | | | | | | TERRY TOTAL,ALK | | | | | | PHOS,ALB,PROT TOTAL) | | | | | + +--------+ + + + | C-REACTIVE PROTEIN | Routin | 10/01/2009 | | Results for this | | | e | 8:00 AM | | procedure are in the | | | | PST | | results section. | + +--------+ + + + documented in this encounter Results TOBRAMYCIN, TROUGH (10/01/2009 8:00 AM PST) + + + + + + | Component | Value | Ref Range | Performed | Pathologist | | | | | At | Signature | + + + + + + | TOBRAMYCIN, | < 0.5 (L)Comment: | 1.0 - 2.0 UG/ML | [facility] | | | TROUGH | VERIFIED BY REPEAT | | A MEDICAL | | | | ANALYSIS. | | CENTER | | + + [...] + + + + | [facility] | | Harika Mcgowan [place] [address] | | | [facility] | Streets | | | + + + + + C-REACTIVE PROTEIN (10/01/2009 8:00 AM PST) + + + + + + | Component | Value | Ref Range | Performed | Pathologist | | | | | At | Signature | + + + + + + | C-REACTIVE | 0.94 (H)Comment: Test | <0.80 mg/dL | [facility] | | | PROTEIN | performed at [facility] | | DIAGNOSTICS | | | | [id number] | | -[place] | | | | [address] | | | | | | [address], | | | | | | [place] [address] | | | | | | : [...] | [facility] | [address] | [place] [address] | [phone] | | [facility] | | | | + + + + + | [facility] | | | | | [facility] | | | | + + + + + CBC W/PHUONG ORDONEZ (10/01/2009 8:00 AM PST) + + + + + + | Component | Value | Ref Range | Performed | Pathologist | | | | | At | Signature | + + + + + + | WHITE BLOOD | 7.1 | 4.3 - 11.0 X10 | [facility] | | | CELL COUNT | | 3/ul | A MEDICAL | | | | | | CENTER | | + + + + + + | HEMOGLOBIN | 13.0 | 12.3 - 17.0 | [facility] | | | | | g/dL | A MEDICAL | | | | | | CENTER | | + + + + + + | RED BLOOD | 4.35 (L) | 4.7 - 6.1 X10 | [facility] | | | CELL COUNT | | 6/uL | A MEDICAL | | | | | | CENTER | | + + + + + + | HEMATOCRIT | 37.3 (L) | 40.0 - 54.0 % | [...] + + + + | MCH | 29.9 | 28.0 - 32.0 pg | [facility] [...] + + + + | NEUTROPHIL | 79.5 | 40 - 80 % | [facility] | | | % | | | A MEDICAL | | | | | | CENTER | | + + + + + + | LYMPHOCYTE | 11.4 (L) | 20 - 50 % | [facility] | | | % | | | A MEDICAL | | | | | | CENTER | | + + + + + + | EOS % | 2.8 | 0 - 5 % | [facility] [...] + + + | BANDS % | OBSERVER HELPER | 0 - 7 % | [facility] [...] + + | [facility] | And | [place] [address] | | | [facility] | [facility] | | | + + + + + COMPLETE METABOLIC SET (NA,K,CL,CO2,BUN,CREAT,GLUC,CA,AST,ALT,BILI TOTAL,ALK PHOS,ALB,PROT TOTAL) (10/01/2009 8:00 AM PST) + + + + + [...] + + + + | GLUCOSE, | 113 (H) | 70 - 105 MG/DL | [...] + + + + | BUN/CREATIN | 26 (H) | 6 - 20 RATIO | [...] + + + + | AST(SGOT) | 23 | 10 - 41 U/L | [facility] | | | | | | A MEDICAL | | | | | | CENTER | | + + + + + + | ALT (SGPT) | 26 | 7 - 51 U/L | [facility] | | | | | | A MEDICAL | | | | | | CENTER | | + + + + + + | ALK PHOS | 97 | 40 - 180 U/L | [facility] | | | | | | A MEDICAL | | | | | | CENTER | | + + + + + + | TOTAL | 6.5 (L) | 6.7 - 8.5 G/DL | [...] + + + | [facility] | [address] | [place] [address] | | | MEDICAL CENTER | Streets | | | + + + + + documented in this encounter Visit Diagnoses Not on filedocumented in this encounter"
--- OUTSIDE RECORDS SUMMARY | ~2019-04-25 | XMS | Encounter Summary ---
Demographics + + + | Address | [address] | | | [place] [address] | + + + | Home Phone [...] [place] | | | | | [address] | | + + + + + Care Team Providers + +------+ + | Care Pretzel Packer Name | Role | Phone | + [...] + + + | Closed | | Canvass Manager | Diagnoses | Reese | Ent | | | | | Neural | Sergo W, | Cochlear Ppv | | | | | hearing | MD INTERNAL | [address] | | | | | loss, | MEDICINE | [place] | | | | | bilateral | [facility] | Rd Mailcode: | | | | | | [address] | | | | | | [address] THE | Physician's | | | | | | [place] | [place] | | | | | | [address] | [place], [place] | | | | | | Phone: | [phone] | | | | | | [phone] | Phone: | | | | | | Fax: | [phone] | | | | | | [phone] | Fax: | | | | | | | [phone] | +--------+--------+ + + + + Encounter Details +--------+---------+ + + + | Date | Type | Department | Care Team | Description | +--------+---------+ + + + | 11/19/ | Office | Otolaryngology | Pascual Pace, | Neural hearing loss, | | 2010 | Visit | Audiology Services | Melodie, CCC-A [address] | bilateral (Primary | | | | at [facility] [address] | [address] | Dx) | | | | [address] | Rd [place], [place] | | | | | Mailcode: [address] | [address] | | | | | Physician's Chris | | | | | | [facility] [place] | | | | | | [address] | | | | | | [phone] | | | +--------+---------+ + + + [...] encounter Progress Notes Melodie Mayfield, CCC-A - 11/19/2010 4:33 PM PDTFormatting of this note might be differe nt from the original. Edgar Marquez is a 45 year-old male who was seen today in conjunction with Otology a s he has been experiencing significant drainage from both ears. Mr. Marquez reported he is doing well with his cochlear implant and reported that changes at his last appointment were a significant improvement and that he is hearing much better now. His has no real concern r egarding his current ability to hear with the speech processor, but had great concern regard ing his ear drainage. Mr. Marquez has a complex medical history and has experienced signifi cant health problems over the last year or two. He stated hearing is not his number one con cern at this time. The patient arrived today wearing his processor on P1/V9/S0 settings. I counseled the patient to attempt wearing his sensitivity at a higher level, however he stat ed he much preferred having the sensitivity turned down so he did not have to hear backgroun d noise and understood best in this condition. He did not want any programming changes made at today's appointment. Informal speech perception testing was completed in the clinic room. Testing in CI only li stening condition on P1/V9/S0 at a distance of approximately 3 feet without visual cues resu lted in the following scores: Speech Perception Tests: List S/N Score % List S/N Score % HINT-(Left) 1 Quiet 47/53 87% 2 Quiet 52/52 100% Mr. Marquez currently wears the Nucleus Sprint device as he is unable to wear the 3G due to his experienced difficulties with perspiration and moisture. I relayed the information jerzy Cochlear will be obsolescing the Sprint processor on January 24, 2011 and that a request will be made to [facility] on his behalf for upgrade to the Nucleus 5 cochlear implant system. Followin g authorization from his insurance, Mr. Marquez will return for Sprint/N5 upgrade. Melodie Herbert M.A., YULIA-A Clinical & Rehabilitative Canvass Manager [facility] Cochlear Implant Program Departement of Otolaryngology/Head & Neck Surgery documented in t his encounter Plan of Treatment +--------+ + + + + | Date | Type | Specialty | Care Team | Description | +--------+ + + + + | 04/29/ | Diagnostic | Canvass Manager | Marce Meyer | | | 2019 | Visit | | Finn, AuD [address] [facility] | | | | | | [address] | | | | | | [place] | | | | | | [address] | | +--------+ + + + + documented as of this encounter Procedures + +--------+ + + + | Procedure Name | Priori | Date/Time | Associated Diagnosis | Comments | | | ty | | | | + +--------+ + + + | MS SPEECH & HEARING | Routin | 11/19/2010 | Neural hearing | | | EVALUATION | e | 4:39 PM | loss, bilateral | | | | | PDT | | | + +--------+ + + + documented in this encounter Visit Diagnoses + + | Diagnosis | + + | Neural hearing loss, bilateral - Primary | + + documented in this encounter"
--- OUTSIDE RECORDS SUMMARY | ~2019-04-25 | XMS | Encounter Summary ---
Demographics + + + | Address | [address] | | | [place] [address] | + + + | Home Phone [...] [place] | | | | | [address] | | + + + + + Care Team Providers + +------+ + | Care Buffing Machine Operator Semiautomatic Name | Role | Phone | + [...] Ct Scan | | | | | Abdominal | Ayana Jovel MD | [facility] [address] | | | | | wall fluid | [address] | [address] | | | | | collections | Ave | [address] | | | | | Procedures | [place], [place] | Mailcode: | | | | | CT ABDOMEN | [address] | [address] [facility] | | | | | W IV | Phone: | Hospital | | | | | CONTRAST | [phone] | [place], [place] | | | | | | Fax: | [address] | | | | | | [phone] | Phone: | | | | | | | [phone] | | | | | | | Fax: | | | | | | | [phone] | +--------+--------+ + + + + Diagnostic Testing (Routine) +--------+--------+ + + + + | Status | Reason | Specialty | Diagnoses / | Referred By | Referred To | | | | | Procedures | Contact | Contact | +--------+--------+ + + + + | Closed | | Radiology | Diagnoses | Gilbert, | Rad Ct Scan | | | | | Abdominal | Ayana Jovel MD | [facility] [address] | | | | | wall fluid | [address] | [address] | | | | | collections | Ave | [address] | | | | | Procedures | [facility] [place] | Mailcode: | | | | | CT PELVIS W | [address] | [address] [facility] | | | | | IV CONTRAST | Phone: | Hospital | | | | | | [phone] | [place], [place] | | | | | | Fax: | [address] | | | | | | [phone] | Phone: | | | | | | | [phone] | | | | | | | Fax: | | | | | | | [phone] | +--------+--------+ + + + + Reason [...] | | CONSULT TO | | Rd [place], | | | | | SURGERY - | | [place] | | | | | GENERAL | | [address] | | | | | | | Phone: | | | | | | | [phone] | | | | | | | Fax: | | | | | | | [phone] | +--------+ + + + + + Encounter Details +--------+---------+ + + + | Date | Type | Department | Care Team | Description | +--------+---------+ + + + | 10/06/ | Office | Digestive Health | Ayana Butler W, | Abdominal wall fluid | | 2012 | Visit | Center at [facility] [address] | MD [address] | collections | | | | [address] | [place], [place] | (Primary Dx) | | | | Mailcode: Center | [address] | | | | | for Health and | [phone] | | | | | [facility] 2 | | | | | | [place], [place] | | | | | | [address] | | | | | | [phone] | | | +--------+---------+ + + + [...] + + + | Blood Pressure | 126/79 | 10/06/2012 8:25 AM | | | | | PDT | | + + + + + | Pulse | 116 | 10/06/2012 8:25 AM | | | | | PDT | | + + + + + | Temperature | 36.5 C (97.7 F) | 10/06/2012 8:25 AM | | | | | PDT | | + + + + + | Respiratory Rate | 17 | 10/06/2012 8:25 AM | | | | | PDT | | + + + + + | Oxygen Saturation | - | - | | + + + + + | Inhaled Oxygen | - | - | | | Concentration | | | | + + + + + | Weight | 114.3 kg (252 lb) | 10/06/2012 8:25 AM | | | | | PDT | | + + + + + | Height | 182.9 cm (6') | 10/06/2012 8:25 AM | | | | | PDT | | + + + + + | Body Mass Index | 34.18 | 10/06/2012 8:25 AM | | | | | PDT | | + + + + + documented in this encounter Progress Notes Ayana Butler MD - 10/06/2012 8:35 AM PDTFormatting of this note might be different fro m the original. [facility] note 10/06/2012 Attending: Ayana Butler ID: Edgar Marquez is a 47 yo man 1 1/2 months status post VHR complicated by infecte d seroma subsequently treated. HPI: Since his last visit he had an episode of 103.6 F fever Thursday- went to local ER fou nd to have +UA suspicious for UTI- also had dysuria and nausea- no fevers since starting cip ro- other symptoms improved. Eating OK- constipation. Min abd pain. Has been taking cipro 5 00 bid since thursday Current concerns include: none- just doesn't want to get sick again. Incisions well healin g. No abd bulge. Abd pain improved- almost gone. Pt denies: current fever, chills, nausea, vomiting. Physical exam: BP 126/79 | Pulse 116 | Temp (Src) 36.5 C (97.7 F) (Oral) | RR 17 | Ht 1.829 m (6') | W t 114.306 kg (252 lb) | BMI 34.18 kg/(m^2) General appearance: healthy, alert, cooperative and sitting in wheel chair Lungs: breathing easily GI: soft, flat, no peritoneal signs. No fluctuance, NTTP, no erythema. UCx- resulted 10/05/2012 10,000-100,000 proteus mirabilis US abd limited:IMPRESSION: Midline fluid collection with minimal debris measuring about 5.5 x 1.8 x 4 cm. Assessment: The patient is a 47 yo male with recent UTI and seroma. Plan: Unlikely seroma was cause of fever. CBC and BMP today. Cont Abx as Rx for UTI. Call for fever, chills, vomiting or worsening abd pain. Patient will follow up in 2wks with abd ct to eval seroma/hernia repair. No activity restrictions. Avoid constipation- senna qday. Addendum: Recent Labs Basename 10/06/12 0910 09/16/12 2316 08/20/12 1125 WBC 7.7 11.0 12.4* RBC 3.95* 3.75* 3.97* HB 11.7* 11.3* 12.9* HCT 35.1* 34.0* 37.5* PLT 213 204 168 NEUTROPERC -- 71* -- BANDPCT -- -- -- LYMPHPERC -- 15* -- MONOPERC -- 8 -- BASOPERC -- 1 -- EOSPERC -- 6* -- Lab Results Component Value Date NA 134 10/06/2012 K 4.2 10/06/2012 CL 98 10/06/2012 BICARB 28 10/06/2012 BUN 11 10/06/2012 CR 0.87 10/06/2012 GLU 93 10/06/2012 CA 9.2 10/06/2012 documented in this en counter Plan of Treatment +--------+ + + + + | Date | Type | Specialty | Care Team | Description | +--------+ + + + + | 04/29/ | Diagnostic | Cloth Bin Packer | Macre Meyer | | | 2019 | Visit | | Eve Briseno [address] [facility] [address] [facility] | | | | | | [address] | | | | | | [place], [place] | | | | | | [address] | | +--------+ + + + + documented as of this encounter Procedures + +--------+ + + + | Procedure Name | Priori | Date/Time | Associated Diagnosis | Comments | | | ty | | | | + +--------+ + + + | CT ABDOMEN AND | Routin | 10/20/2012 | | Results for this | | PELVIS W IV CONTRAST | e | 12:59 PM | | procedure are in the | | | | PDT | | results section. | + +--------+ + + + documented in this encounter Results CT ABDOMEN & PELVIS W IV CONTRAST (10/20/2012 12:59 PM PDT) + + + + + + | Component | Value | Ref Range | Performed | Pathologist | | | | | At | Signature | + + + + + + | CT ABDOMEN | Indication: wall | | | | | & PELVIS W | collection. Status | | | | | CONTRAST | post VHR. Comparison: | | | | | | Outside CT, 09/16/2012. | | | | | | Technique: Axial images | | | | | | were performed through | | | | | | the abdomen and | | | | | | pelvisafter 100 cc | | | | | | Isovue IV. Findings: The | | | | | | lung bases are clear. | | | | | | Abdomen: Punctate | | | | | | calcified hepatic | | | | | | granuloma in segment 7 | | | | | | is noted.Subcentimeter | | | | | | hypodensities in segment | | | | | | 8 are too small | | | | | | tocharacterize and | | | | | | likely represent cysts | | | | | | versus | | | | | | hemangiomas. No | | | | | | otherfocal intrahepatic | | | | | | lesions are | | | | | | identified. The | | | | | | gallbladder | | | | | | iscontracted. The | | | | | | pancreas, spleen, | | | | | | adrenal glands, and both | | | | | | kidneysare significant | | | | | | for nonspecific minimal | | | | | | perinephric stranding. | | | | | | Pelvis: The bowel loops | | | | | | are not dilated. The | | | | | | appendix is | | | | | | wellvisualized and | | | | | | unremarkable. The | | | | | | bladder, prostate, and | | | | | | seminalvesicles are | | | | | | unremarkable. No free | | | | | | fluid, free air, or | | | | | | adenopathy. Evidence of | | | | | | recent ventral hernia | | | | | | repair with mesh is | | | | | | noted with arecurrent | | | | | | fluid collection | | | | | | superficial to the mesh | | | | | | measuring 11.9 x3.2 x | | | | | | 7.5 cm. A few locules | | | | | | of gas are noted within | | | | | | the superiorextent of | | | | | | the collection (image | | | | | | 77). Surrounding | | | | | | rectus muscle | | | | | | andsubcutaneous | | | | | | stranding are | | | | | | postsurgical in nature. | | | | | | No suspicious osseous | | | | | | abnormalities. | | | | | | Impression: Recurrent | | | | | | fluid collection | | | | | | associated with the | | | | | | ventralhernia repair | | | | | | mesh. Attending | | | | | | Radiologists: FORREST | | | | | | KAT LOVEuthor: FORREST | | | | | | MD IVAN I have | | | | | | personally viewed this | | | | | | procedure/exam, reviewed | | | | | | this report,and made | | | | | | changes to it where | | | | | | appropriate. | | | | | | Final/Electronically | | | | | | signed / FORREST LOVE | | | | | | 10/20/2012 13:35 PM | | | | + + [...] | | | + +---------+ + + RENAL FUNCTION SET (NA,K,CL,CO2,BUN,CREAT,GLUC,CA,PHOS,ALB ) [...] | | | LABORATORY | | | AUSTRIAN | | | SERVICES, | | | [...] AILYN GUPTA | [address] | [place] [address] | | | SERVICES, CORE | [address] | | | + + + + + documented in this encounter Visit Diagnoses + + | Diagnosis | + + | Abdominal wall fluid collections - Primary Other ascites | + + documented in this encounter"
--- OUTSIDE RECORDS SUMMARY | ~2019-04-25 | XMS | Encounter Summary ---
Demographics + + + | Address | [address] | | | [place] [address] | + + + | Home Phone | | + + + | Preferred Language | Unknown | + + + | Marital Status | Single | + + + | Oriental Orthodox Affiliation | BAP | + + + | Race | White | + + + | Ethnic Group | Not or | + + + Author + + + | Author | [facility] | + + + | Organization | [facility] | + + + | Address | Unknown | + + + | Phone | Unavailable | + + + Support + + + + + | Name | Relationship | Address | Phone | + + + + + | Margarito Owusu | ECON | [address] | | | | | [place] | | | | | [address] | | + + + + + Care Team Providers + +------+ + | Care Centerless Grinder Name | Role | Phone | + [...] | on | Audiology Services | Melodie [facility] [address] | | | | | at [facility] [address] [facility] | [address] | | | | | [address] | [place], [place] | | | | | Mailcode: [address] | [phone] | | | | | Physician's [address] | | | | | | [place], [place] | | | | | | [address] | | | | | | [phone] | | | +--------+ + + + [...] + | 04/29/ | Diagnostic | Vocational Director | Marce Meyer | | | 2019 | Visit | | Eve Briseno [address] [facility] | | | | | | [address] | | | | | | [place] | | | | | | [address] | | +--------+ + + + + documented as of this encounter Visit Diagnoses Not on filedocumented in this encounter"
--- OUTSIDE RECORDS SUMMARY | ~2019-04-25 | XMS | Encounter Summary ---
Demographics + + + | Address | [address] | | | [place] [address] | + + + | Home Phone [...] [place] | | | | | [address] | | + + + + + Care Team Providers + +------+ + | Care Acute Coordinator Name | Role | Phone | [...] 2013 | on | Cochlear Services | [facility] [address] | | | | | [address] | [address] | | | | | [place] Mailcode: | [place], [place] | | | | | [address] Physician's | [address] | | | | | [place], | | | | | | [place] [address] | | | | | | [phone] | | | +--------+ + + + [...] + + | 04/29/ | Diagnostic | Jail Manager | Marce Meyer | | | 2019 | Visit | | Eve Briseno [address] | | | | | | [address] | | | | | | [place], [place] | | | | | | [address] | | +--------+ + + + + documented as of this encounter Visit Diagnoses Not on filedocumented in this encounter"
--- OUTSIDE RECORDS SUMMARY | ~2019-04-25 | XMS | Encounter Summary ---
Demographics + + + | Address | [address] | | | [place] [address] | + + + | Home Phone [...] [place] | | | | | [address] | | + + + + + Care Team Providers + +------+ + | Care Accounting Manager Cpa Name | Role | Phone | + [...] | | | | | | | [place], [place] | | | | | | | [address] | | | | | | | Phone: | | | | | | | [phone] | | | | | | | Fax: | | | | | | | [phone] | +--------+--------+ + + + + Encounter Details +--------+---------+ + + + | Date | Type | Department | Care Team | Description | +--------+---------+ + + + | 12/22/ | Office | Digestive Health | Ayana Butler, | History of hernia | | 2012 | Visit | Center at [facility] [address] | MD [address] | repair (Primary Dx); | | | | [address] | [place], [place] | Open wound of | | | | Mailcode: Center | [address] | abdomen | | | | for Health and | [phone] | | | | | Healing, Building [address] | | | | | | [place], [place] | | | | | | [address] | | | | | | [phone] | | | +--------+---------+ + + + [...] further drainage recommended . Ayana Butler MD Head Of Training And Development Division of General and Gastrointestinal Surgery Department of Surgery, [address] [facility] [place] [address] asiel Santiago M D - 12/22/2012 2:23 PM PDT [facility] Progress Note Author: JASIEL COATES [...] fluid collection. Subjective: Patient reportedly went to [place] ED over weekend with low grade temperatures, [...] and plan. Jasiel Coates MD Resident PGY-1 [facility] Dept. of Surgery Pager [phone] documented in this encounter Plan of Treatment +--------+ + + + + | Date | Type | Specialty | Care Team | Description | +--------+ + + + + | 04/29/ | Diagnostic | Private Investigator Surveillance | Marce Meyer | | | 2018 | Visit | | Eve Briseno [address] [facility] | | | | | | [address] | | | | | | [place], [place] | | | | | | [address] | | +--------+ + + + + [...]
--- OUTSIDE RECORDS SUMMARY | ~2019-04-25 | XMS | Encounter Summary ---
Demographics + + + | Address | [address] | | | [place] [address] | + + + | Home Phone [...] [place] | | | | | [address] | | + + + + + Care Team Providers + +------+ + | Care Plant And Maintenance Technician Name | Role | Phone | + +------+ + | Cee Triana MD | PCP | Unavailable | + +------+ + Encounter Details +--------+ + + + + | Date | Type | Department | Care Team | Description | +--------+ + + + + | 09/15/ | Abstract | Digestive Health | Ayana Butler W, | | | 2012 | | Center at [facility] [address] | [address] | | | | | [address] | [facility] [place] | | | | | Mailcode: [place] | [address] | | | | | for Health and | [phone] | | | | | [facility] [address] | | | | | | [place], [place] | | | | | | [address] | | | | | | [phone] | | | +--------+ + + + [...] + + | 04/29/ | Diagnostic | Wire Weaver Helper | Marce Meyer | | | 2019 | Visit | | Eve Briseno [address] [place] [address] | | | | | | [address] | | | | | | [place] | | | | | | [address] | | +--------+ + + + + documented as of this encounter Visit Diagnoses Not on filedocumented in this encounter"
--- OUTSIDE RECORDS SUMMARY | ~2019-04-25 | XMS | Encounter Summary ---
Demographics + + + | Address | [address] | | | [place] [address] | + + + | Home Phone [...] [place] | | | | | [address] | | + + + + + Care Team Providers + +------+ + | Care Research Hydrologist Name | Role | Phone | + [...] + + | 04/29/ | Diagnostic | Brineyard Supervisor | Marce Meyer | | | 2019 | Visit | | Eve Briseno [address] | | | | | | [address] | | | | | | [place], [place] | | | | | | [address] | | +--------+ + + + + [...] | | | | [facility] | [facility] | | | | [address] | | | | | | [address], | | | | | | [place] [address]sl[address]rd | | | | | | : ASHLEY C SOL,MD | | | | + + + + + + + + | Specimen | + + | | + + + + + + + | Performing | Address | City/State/Zipcode | Phone Number | | Organization | | | | + + + + + | [facility] | [address] | [place] [address] | [phone] | | [facility] | | | | + + + + + | [facility] | | | | | [facility] | | | | + + + [...] + + + + | WBC, | [facility] | X10 3/uL | [facility] | | [...] + + + | BANDS % | [facility] | 0 - 7 % | [facility] [...] + + + + | EOSINOPHIL% | [facility] | 0 - 5 % | [facility] [...] + + + + | REACTIVE | [facility] | 0.0 - 4.0 % | [facility] | | | LYMPHS % | | | A MEDICAL | | | | | | CENTER | | + + + + + + | BANDS % | [facility] | 0 - 7 % | [facility] | | | | | | A MEDICAL | | | | | | CENTER | | + + + + + + | METAMYELOCY | [facility] | 0 - 0 % | [facility] | | | BRANDON % | | | A MEDICAL | | | | | | CENTER | | + + + + + + | MYELOCYTES | [facility] | 0 - 0 % | [facility] | | | % | | | A MEDICAL | | | | | | CENTER | | + + + + + + | PROMYELOCYT | [facility] | 0 - 0 % | [facility] | | | ES % | | | A MEDICAL | | | | | | CENTER | | + + + + + + | BLASTS | [facility] | 0 - 0 % | [facility] [...] + + + + | NUCLEATED | [facility] | | [facility] | | | RBCS | | | A MEDICAL | | | | | | CENTER | | + + + + + + | GIANT PLT | [facility] | | [facility] | | | | [...] | + + + + + | [facility] | And | [place] [address] | | | [facility] | Streets | | | + + [...] [facility] | And [address] | [place] [address] | | | [facility] | [place] | | | + + + + + documented in this encounter Visit Diagnoses Not on filedocumented in this encounter"
--- OUTSIDE RECORDS SUMMARY | ~2019-04-25 | XMS | Encounter Summary ---
Demographics + + + | Address | [address] | | | [place] [address] | + + + | Home Phone [...] Author + + + | Author | [facility] | + + + | Organization | [facility] | + + + [...] [place] | | | | | [address] | | + + + + + Care Team Providers + +------+ + | Care Mechanical Engineering Advisor Name | Role | Phone | [...] | ibed | [address] The | [facility] | | | | | [place] [facility] | | | | | [address] | FAMILY MEDICINE | | | | | | [address] THE | | | | | | [place] [address] | | | | | | [phone] | | | | | | | [...] + + | 04/29/ | Diagnostic | Caravan Park And Camping Ground Manager | Marce Meyer | | | 2019 | Visit | | Eve Briseno [address] [facility] | | | | | | [address] | | | | | | [place] | | | | | | [address] | | +--------+ + + + + documented as of this encounter Visit Diagnoses Not on filedocumented in this encounter"
--- OUTSIDE RECORDS SUMMARY | ~2019-04-25 | XMS | Encounter Summary ---
Demographics + + + | Address | [address] | | | [place] [address] | + + + | Home Phone [...] [place] | | | | | [address] | | + + + + + Care Team Providers + +------+ + | Care Bottle Packer Name | Role | Phone | [...] examination | | 2013 | Visit | [facility] | A, CONSULTING SERVICES PROJECT MANAGER [address] [facility] | (Primary Dx); | | | | [facility] | [address] | [place]; Other | | | | Stay [address] [facility] | [place], [place] | specified | | | | [address] | [address] | pre-operative | | | | Mailcode: [id number] | [phone] | examination | | | | Paola Perez | | | | | | [address] [place], [place] | | | | | | [address] | | | | | | [phone] | | | +--------+---------+ + + + Anesthesia Record + + + + + | Procedure Name | Responsible | Anesthesia Start | Anesthesia Stop Time | | | Anesthesiologist | Time | | + + + + + | RIGHT TYMPANOPLASTY | Julián Alfred, | 12/22/13 1556 | 12/22/13 6604 | | WITH CANAL WALL | MD [...] or walk. Surgery Check in Locations Admitting [facility], ninth floor [facility] [place], 4th floor Room 4510 Surgery Check in Time: The Preoperative Medicine [...] it is after office hours, call the [facility] payloader machine operator at [phone] and ask them to page him or h er. Preparing For Your Surgery Video -- 7 minutes of instructions! Access the [facility] website [email or web address] --> POPULAR RESOURCES --> Patient Guide [...] ear infections and hearing lo ss. PMH: [place], CAD,DM, HLD, COPD, asthma, SUSAN, seizures, illiteracy?, [...] Comment: Pt buys case of beer with paySeam[employer]ck at start of month--drinks that and none [...] pressure and syncope CAD Cad Sx: past [place] Last [place]: > 1 year hypertension well controlled Vascular: [...] further investigation and manageme nt. A. Acute [place] within 7 days: no B. Unstable angina/Recent [place] (7- 30 days): no C. Decompensated CHF: [...] no Rate of cardiac , non fatal [place], non fatal cardiac arrest (RCRI) 0 risk factors - 0.4% 1 risk factors - 1%, 2 risk factors - 7%, 3 or >risk factors - 11% (may benefit from perioperative beta blockers) Risk Factor Recommendations: 1-2 risk factors- proceed with planned surgery with HR control or consider noninvasive testing if it will meter changes records clerk Surgery Risk: Low Patient-related risk: Estimated ASA [...] Cephalosporin/PCN allergy and/or with hx of MRSA). CAD/KY-stable, remote. SUSAN-agrees to bring CPAP. HTN-controlled. DM-controlled, A1c 5.5 today. Seizure disorder-controlled. Chronic incisional hernia-wound has healed since quitting smoking. Bipolar, PTSD, depression-controlled on multiple medications and has regular therapy vis its. QEYJ-duymffhw-dcydaw, improved with smoking cessation. Improved from last [...] to this patient's care. DONNA Hayden NP [facility] [address] [facility] [address] The patient was also advised regarding [...] + | 04/29/ | Diagnostic | Box Machine Operator | Marce Meyer | | | 2018 | Visit | | Eve Briseno [address] [facility] | | | | | | [address] | | | | | | [place], [place] | | | | | | [address] | | +--------+ + + + + documented as of this encounter Procedures + +--------+ + + + | Procedure Name | Priori | Date/Time | Associated Diagnosis | Comments | | | ty | | | | + +--------+ + + + | [place] COLLECTION VENOUS | Routin | 12/06/2013 | [...] - QIAN | [address] | [place], [place] | | | [facility] | [address] | [address] | | | TESTS | | | [...] | | | | | POPEYE GARCIAS (5252) | | | | | | on 12/07/2013 5:01:07 PM | | | | + + + + + + + + | Specimen | + + | | + + + + + | Narrative | Performed At | + + + | Please click | [facility] | | on view image for the detailed interpretation from [employer] results. | CARDIOLOGY | + + + + + | Procedure Note | + + | Interface, Cardiology Results - 12/07/2013 5:02 PM PDT Please click on view image | | for the detailed interpretation from [employer] results. | + + + + + + + | Performing | Address | City/State/Zipcode | Phone Number | | Organization | | | | + + + + + | [facility] | [address] | [place], [place] | | | CARDIOLOGY | [facility] | [address] | | + + + + + [...] | + + + + + | [facility] | [address] | [place] [address] | | | SERVICES, JUAN | PARK [...] | | | LABORATORY | | | [place] | | | SERVICES, | | | [...] | + + + + + | [facility] [employer] | [address] | [place] [address] | | | SERVICES, CORE | [address] [...]
--- OUTSIDE RECORDS SUMMARY | ~2019-04-25 | XMS | Encounter Summary ---
Demographics + + + | Address | [address] | | | [place] [address] | + + + | Home Phone [...] [place] | | | | | [address] | | + + + + + Care Team Providers + +------+ + | Care Rag Cutting Machine Tender Name | Role | Phone | [...] + + + | Closed | | Cardiology | Diagnoses | Ferronato, | Car Echo | | | | | Ventral | Nolvia DO | Sjh [address] | | | | | hernia | [address] | [address] | | | | | Procedures | Haile | Toya Spencer | | | | | STRESS | Toya Spencer | Mailcode: | | | | | DOBUTAMINE | [place], [place] | [address] | | | | | ECHOCARDIOGR | [address] | [address] | | | | | AM, ADULT | Phone: | Building | | | | | | [phone] | [place], [place] | | | | | | Fax: | [address] | | | | | | [phone] | Phone: | | | | | | | [phone] | +--------+--------+ + + + + Encounter Details +--------+ + + + + | Date | Type | Department | Care Team | Description | +--------+ + + + + | 08/13/ | Hospital | Cardiac | | | | 2013 | Encounter | Non-Invasive Testing | | | | | | at [facility] | | | | | | [address] | | | | | | [address] | | | | | | Mailcode: [id number] | | | | | | [address] | | | | | | [facility], | | | | | | [place] [address] | | | | | | [phone] | | | +--------+ + + + [...] documented as of this encounter Progress Notes Reynold Ayoub - 08/13/2012 4:55 PM PSTDobutamine stress echocardiogram completed. Final rep ort to follow. Aminata Lara RN - 08/13/19 13 3:49 PM PSTAt 1335, prior to the beginning of the procedure, the team paused to verify t he patient s identity, the procedure to be performed (in accordance with the consent,) and the correct side/site. The patient was positioned appropriately. All relevant images and re sults were properly labeled and displayed. We addressed antibiotic prophylaxis and fluids fo r irrigation as applicable to this patient. Any safety precautions were addressed. documented in this enc ounter Plan of Treatment +--------+ + + + + | Date | Type | Specialty | Care Team | Description | +--------+ + + + + | 04/29/ | Diagnostic | Trade Union Secretary | Marce Meyer | | | 2019 | Visit | | Eve Briseno [address] [facility] | | | | | | [address] | | | | | | [place], [place] | | | | | | [address] | | +--------+ + + + + documented as of this encounter Procedures + +--------+ + + + | Procedure Name | Priori | Date/Time | Associated Diagnosis | Comments | | | ty | | | | + +--------+ + + + | STRESS DOBUTAMINE | Routin | 08/13/2012 | Ventral hernia | Results for this | | ECHOCARDIOGRAM, | e | 12:00 AM | | procedure are in the | | ADULT | | PST | | results section. | + +--------+ + + + documented in this encounter Visit Diagnoses + + | Diagnosis | + + | Ventral hernia - Primary Ventral hernia, unspecified, without mention of obstruction | | or gangrene | + + documented in this encounter Administered Medications + +---------+ +--------+--------+------+ | Medication Order | MAR | Action | Dose | Rate | Site | | | Action | Date | | | | + +---------+ +--------+--------+------+ | perflutren lipid microspheres | New Bag | 08/13/19 | 1.5 mL | mL/hr | | | (aka DEFINITY) injection 1.5 mL | | 13 3:30 | | | | | 1.5 mL, intravenous, PROCEDURE | | PM PST | | | | | ONCE, 1 dose, 08/13/12 at 1700 | | | | | | + +---------+ +--------+--------+------+ +---+---+ | | | +---+---+ documented in this encounter"
--- OUTSIDE RECORDS SUMMARY | ~2019-04-25 | XMS | Encounter Summary ---
Demographics + + + | Address | [address] | | | [place] [address] | + + + | Home Phone [...] [place] | | | | | [address] | | + + + + + Care Team Providers + +------+ + | Care Computator Name | Role | Phone | + +------+ + | Cee Triana MD | PCP | Unavailable | + +------+ + Encounter Details +--------+ + + + + | Date | Type | Department | Care Team | Description | +--------+ + + + + | 07/06/ | Documentati | Digestive Health | Ayana Butler W, | | | 2011 | on | Center at [facility] [address] | [address] | | | | | [address] | [facility] [place] | | | | | Mailcode: Center | [address] | | | | | for Health and | [phone] | | | | | [facility], [facility] [address] | | | | | | [place], [place] | | | | | | [address] | | | | | | [phone] | | | +--------+ + + + [...] + | 04/29/ | Diagnostic | Home Care Attendant | Marce Meyer | | | 2019 | Visit | | Eve Briseno [address] | | | | | | [address] | | | | | | [facility] | | | | | | [address] | | +--------+ + + + + documented as of this encounter Visit Diagnoses Not on filedocumented in this encounter"
--- OUTSIDE RECORDS SUMMARY | ~2019-04-25 | XMS | Encounter Summary ---
Demographics + + + | Address | [address] | | | [place] [address] | + + + | Home Phone [...] [place] | | | | | [address] | | + + + + + Care Team Providers + +------+ + | Care Family Practice Medical Doctor Name | Role | Phone | [...] + + | 04/29/ | Diagnostic | Book Coverer | Marce Meyer | | | 2019 | Visit | | Eve Briseno [address] | | | | | | [address] | | | | | | [place], [place] | | | | | | [address] | | +--------+ + + + + [...] | [place] | | Harika Mcgowan [place] [address] | | | [facility] | Streets | | | + [...] | | | PROTEIN | performed at [facility] | | DIAGNOSTICS | | | | [id number] | | -[place] | | | | [address] | | | | | | [address], | | | | | | [place] [address]hl | | | | | | : ASHLEY HORTON MD | | | | + + + + + + + + | Specimen | + + | | + + + + + + + | Performing | Address | City/State/Zipcode | Phone Number | | Organization | | | | + + + + + | [facility] | [address] | [place] [address] | [phone] | | [facility] | | | | + + + + + | [facility] | | | | | [facility] | | | | + + + [...] + + + | BANDS % | SALES INCENTIVE ANALYST | 0 - 7 % | [facility] [...] + + | [place] | And | [place] [address] | | | [facility] | [facility] | | | + + [...] + + + | [facility] | And [place] | [place] [address] | | | MEDICAL CENTER | Streets | | | + + + + + documented in this encounter Visit Diagnoses Not on filedocumented in this encounter"
--- OUTSIDE RECORDS SUMMARY | ~2019-04-25 | XMS | Encounter Summary ---
Demographics + + + | Address | [address] | | | [place] [address] | + + + | Home Phone [...] [place] | | | | | [address] | | + + + + + Care Team Providers + +------+ + | Care Heel Slicker Name | Role | Phone | + +------+ + | Maurice Zelaya MD | PCP | | + +------+ + Encounter Details +--------+ + + + + | Date | Type | Department | Care Team | Description | +--------+ + + + + | 12/14/ | Outside | Pulmonary Function | Kerri Chavarria, | | | 2011 | Referral | Lab at [facility] [address] | RECREATIONAL THERAPIST [address] | | | | Order | [address] | [place] [address] | | | | | Mailcode: UHS13 | [phone] | | | | | Paola Perez | | | | | | [address] [place], [place] | | | | | | [address] | | | | | | [phone] | | | +--------+ + + + [...] + + | 04/29/ | Diagnostic | Health Care Analyst | Mitch Marce | | | 2019 | Visit | | Eve Briseno [address] [facility] | | | | | | [address] | | | | | | [place], [place] | | | | | | [address] | | +--------+ + + + + documented as of this encounter Results SPIROMETRY BEFORE / AFTER [...] + + + + + + | XQT81-50% | 1.63 | 3.65 L/sec | [facility] | | | PRE | | | SPECIAL | | | | | | DIAGNOSTICS | | | | | | - | | | | | | PULMONARY | | | | | | FUNCTION | | + + + + + + | WEB23-29% | 44 | % | [facility] | | | PRE (%REF) | | | SPECIAL | | | | | | DIAGNOSTICS | | | | | | - | | | | | | PULMONARY | | | | | | FUNCTION | | + + + + + + | SLB18-18% | 1.91 | 3.65 L/sec | [facility] | | | POST | | | SPECIAL | | | | | | DIAGNOSTICS | | | | | | - | | | | | | PULMONARY | | | | | | FUNCTION | | + + + + + + | NJS32-48% | 52 | % | [facility] | [...] + + + + | PULMONARY | [facility] | | [facility] | | | INTERPRETAT | University | | SPECIAL | | | ION | Date: | | DIAGNOSTICS | | | | 05/24/12 | | - | | | | | | PULMONARY | | | | | | FUNCTION | | | | | | | | | | Id: | | | | | | [id number] | | | | | | [place], | | | | | | [place]: ALMA, EDGAR | | | | | | ELLEN | | | | | | | | | | | | | | | | | | | | | | | | | | | | | | | | | | | | Physician: SUHR, KERRI | | | | | | | [...] 54 | | | | | | 14GSK80-29% | | | | | | L/sec 3.65 1.6 | | | | | | 3 | | | | | | 44 1.91 | | | | | | 52 17PEF | | | | | | L/sec 10.11 | | | | | | 5.07 | | | | | | 50 5.50 | | | | | | 54 8QRQ350% | | | | | | Sec [...] ECode | | | | | | [id number] | | | | | | | | | | | | [id number] | | | | | | L/min [...] CaucasianVersion: | | | | | | [id number]: | | | | | | ALMAGURJIT CASASIN | | | | | | ELLEN | | | | | | ID: | | | | | | [id number] | | | | | | | [...] | | | | | | max [id number] | | | | | | Volume LitersPE | | | | | | max [id number] | | | | | | Volume [...] significant.Version: | | | | | | [id number] | | | | | | | | | | | | Page 2Name: ALMA, | | | | | | EDGAR | | | | | | ELLEN | | | | | | ID: | | | | | | [id number] | | | | | | | [...] : | | | | | | [id number] | | | | | | | | | | | | Page 3Name: ALMA, | | | | | | EDGAR | | | | | | ELLEN | | | | | | ID: | | | | | | [id number]: | | | | | | [id number] | | | | | | | [...] + + + + + | [facility] | [address] | [place], [place] | | | DIAGNOSTICS - | [address] | [address] | | | PULMONARY FUNCTION | | | | + + + + + documented in this encounter Visit Diagnoses + + | Diagnosis | + + | Chronic airway obstruction, not elsewhere classified - Primary | + + documented in this encounter"
--- OUTSIDE RECORDS SUMMARY | ~2019-04-25 | XMS | Encounter Summary ---
Demographics + + + | Address | [address] | | | [place] [address] | + + + | Home Phone [...] [place] | ECON | [address] | | | | | [place] | | | | | [address] | | + + + + + Care Team Providers + +------+ + | Care Airplane Technician Name | Role | Phone | + +------+ + PCP | Unavailable | + +------+ + Encounter Details +--------+ + + + + | Date | Type | Department | Care Team | Description | +--------+ + + + + | 04/09/ | Orders Only | | Record, Operation | | | 2003 | | | | | +--------+ + [...] + | 04/29/ | Diagnostic | [facility] | Marce Meyer | | | 2019 | Visit | | Eve Briseno [address] | | | | | | [address] | | | | | | [place], [place] | | | | | | [address] | | +--------+ + + + + documented as of this encounter Procedures + +--------+ + + + | Procedure Name | Priori | Date/Time | Associated Diagnosis | Comments | | | ty | | | | + +--------+ + + + | OPERATION RECORD | | 04/09/2004 | | Results for this | | | | | | procedure are in the | | | | | | results section. | + +--------+ + + + documented in this encounter Results OPERATION RECORD (04/09/2004) + + | Transcriptions | + + | Interface, Utility System Repairer In - 07/16/2005 6:13 AM PST | | [id number] | | [id number] CB Suosa | | Date: 04/09/2004 | | | | Attending Surgeon: Aamir Chan M.D. | | | | Clamp Operator(s): Ena Pompa MD | | | | Preoperative Diagnosis: | | Bilateral profound sensorineural hearing loss. | | | | Postoperative Diagnosis(es): | | Bilateral profound sensorineural hearing loss. | | | | Procedures Performed: | | 1. Left-sided cochlear implant with Nucleus 24 device. | | 2. Microdissection. | | 3. Facial nerve monitoring for 1.5 hours. | | | | | | Anesthesia: | | General. | | | | Complications: | | | | Specimens: | | None. | | | | Findings: | | Very thick temporalis muscle. | | | | Indications: | | Mr. Marquez is a 38-year-old male with a history of bilateral profound | | sensorineural hearing loss. He previously underwent audiologic evaluation | | and qualified for a cochlear implant. He presents for left-sided | | implantation. | | | | Procedure: | | The patient was brought to the Operating Room, placed in the supine | | position, and administered anesthesia by the Anesthesiology Service. He | | was then intubated. The facial nerve monitor leads were then attached to | | the left lip and eye and attached to the monitor whose function was | | assured. It was then used for the duration of the surgical procedure; 7 mL | | of 1% lidocaine with 1:100,000 epinephrine were injected along the left | | postauricular sulcus and superiorly along the scalp. A square of hair was | | shaved on the scalp just above the ear. The patient was then prepped and | | draped in the usual sterile manner. An S-shaped incision was then made | | through the skin and subcutaneous layers and undermined anteriorly and | | posteriorly. The incision was then carried through the temporalis muscle | | and mastoid periosteum, and anterior and posterior subperiosteal flaps were | | raised. The high-powered binocular operating microscope was then brought | | into the field, and a mastoidectomy was performed. Drilling proceeded | | through the mastoid cortex until air cells were identified. The tegmen and | | external auditory canal were then identified, and drilling proceeded | | medially until the antrum was entered. The horizontal semicircular canal | | and short process of the incus were then identified. Drilling then | | proceeded in the facial recess until the middle ear was entered. The oval | | window and round window were identified. A 1-mm guerrero drill was then | | used to make the cochleostomy in the promontory just anterior to the round | | window. A bed was then drilled for the device in the skull posterosuperior | | to the mastoidectomy cavity. The device was then placed in this and | | affixed with 4 screws and Vicryl mesh. The cochlear electrode was then | | placed in the cochleostomy with full insertion, and the stylet was removed. | | The ground electrode was then placed medial to the temporalis muscle. The | | temporalis and mastoid periosteum were then reapproximated with interrupted | | 3-0 Vicryl sutures. The deep dermal skin layer was then reapproximated | | with interrupted inverted 4-0 Vicryl sutures. The skin was then closed | | with a running 5-0 fast-absorbing gut suture. The Audiology Service then | | tested the implant by neural response telemetry, and it was noted to be | | intact. The patient then emerged from anesthesia and was extubated. A | | sterile mastoid dressing was applied. The patient was brought to the | | Recovery Room in stable condition. There were no complications. | | Dustin was present for the critical portions of procedure. | | | | | | | | | | Ena Pompa MD | | | | | | | | Aamir Chan M.D. | | | | DS / HS | | [id number] / [id number] / [id number] / [id number] | | | | | + + documented in this encounter Visit Diagnoses Not on filedocumented in this encounter"
--- OUTSIDE RECORDS SUMMARY | ~2019-04-25 | XMS | Encounter Summary ---
Demographics + + + | Address | [address] | | | [place] [address] | + + + | Home Phone [...] [place] | | | | | [address] | | + + + + + Care Team Providers + +------+ + | Care Vice President Client Services Name | Role | Phone | + +------+ + | Deidre Card | PCP | | + +------+ + Reason for Visit +--------+ + | Reason | Comments | +--------+ + | Rash | | +--------+ + Office Visit - E/M Services (Routine) +--------+ + + + + + | Status | Reason | Specialty | Diagnoses / | Referred By | Referred To | | | | | Procedures | Contact | Contact | +--------+ + + + + + | Closed | Specialty | Dermatology | Diagnoses | Reese, | Jac, | | | Services | | Rash and | Vickie | MD Yuri | | | Required | | other | [facility] | [address] | | | | | nonspecific | & FATIGUE | Ave | | | | | skin | [address] | [place], [place] | | | | | eruption | [address] | [address] | | | | | rash over | [address] | Phone: | | | | | body for | [address] | [phone] | | | | | 2-weeks | [place], | Fax: | | | | | | [place] [address] | [phone] | +--------+ + + + + + Encounter Details +--------+---------+ + + + | Date | Type | Department | Care Team | Description | +--------+---------+ + + + | 02/27/ | Office | Dermatology | Yuri Nathan, | Rash and Other | | 2008 | Visit | Medical at [facility] [address] | [address] | Nonspecific Skin | | | | Floor [address] | [place], [place] | Eruption; Itch; | | | | Ave Mailcode: CH16D | [address] | Folliculitis | | | | [facility] | [phone] | | | | | and Healing, | | | | | | [facility] | | | | | | [place], [place] | | | | | | [address] | | | | | | [phone] | | | +--------+---------+ + + + [...] this encounter Last Filed Vital Signs + +---------+ + + | Vital Sign | Reading | Time Taken | Comments | + +---------+ + + | Blood Pressure | 142/90 | 02/27/2009 4:11 PM | | | | | PDT | | + +---------+ + + | Pulse | 102 | 02/27/2009 4:11 PM | | | | | PDT | | + +---------+ + + | Temperature | - | - | | + +---------+ + + | Respiratory Rate | 20 | 02/27/2009 4:11 PM | | | | | PDT | | + +---------+ + + | Oxygen Saturation | - | - | | + +---------+ + + | Inhaled Oxygen | - | - | | | Concentration | | | | + +---------+ + + | Weight | - | - | | + +---------+ + + | Height | - | - | | + +---------+ + + | Body Mass Index | - | - | | + +---------+ + + documented in this encounter Patient Instructions Patient Instructions Milena Giraldo Md - 02/27/2009 4:49 PM PDTFor itching: --hydroxyzine 1-2 tabs by mouth every 6 hours --triamcinolone ointment twice daily for 10 days, once daily for 10 days, then twice a week *best time to apply is immediately after a shower For folliculitis: --doxycycline 100mg by mouth twice daily To treat scabies (in case): --Permethrin cream applied from head to to toe, left on overnight, then repeat in 1 weekEle ctronically signed by Milena Giraldo Md at 02/27/2009 4:49 PM PDT documented in this encounter Progress Notes Yuri Nathan MD - 02/27/2009 5:01 PM PDTPatient referred by VICKIE LE[facility] [address] [place] [address] Diffuse excoriations over trunk, arms & legs not too much redness or reaction in webs or wrists redness scaling over face Dx ? Scabies ? folliculitis ? Dermatitis rx elimite x 2 doxy 100 mg bid TAC oint bid ,hydroxyzine 25 mg hs see prn I performed a history and physical examination of the patient and discussed his management with the resident. I reviewed the resident s note and agree with the documented findings and plan of care. YURI NATHAN MD MEDICAL DERMATOLOGY [address] Mail Code: Ch16d [facility] [facility] [address] Milena Lepe Md - 02/27/2009 4:28 PM PDT DERMATOLOGY CONSULTATION VISIT CHIEF COMPLAINT: rash HISTORY OF PRESENT ILLNESS: Edgar Marquez is a 43 y.o. male sent by Dr. Vickie Leigh for consultation regard ing a rash. This began a year ago but has gotten much worse since July 2008. The rash h as involved his entire body and is extremely itchy. He has tried numerous OTC remedies incl uding oatmeal baths, poison oak creams, topical Benadryl creams. He has also had two 10-day courses of prednisone given to him by CYNTHIA Hooks a few months ago. He had no imp rovement from the prednisone. Lives with his sister and his mother is his caregiver; neithe r of them are itchy. He has a h/o "boils" and has been told that he had folliculitis; recom mended Hibiclens which didn't help. No new medications. The patient's dermatology intake form was reviewed, signed, and dated. His relevant PMH, F H, and SH includes: PAST MEDICAL HISTORY: H/o IV drug and EtOH abuse Fatty liver Bipolar d/o H/o mastoidectomy Cochlear implant COPD HTN Hyperlipidemia Low back pain PTSD FAMILY HISTORY: Mother and sister with psoriasis SOCIAL HISTORY: Lives with sister, mother is caregiver MEDICATIONS: Current outpatient prescriptions Medication Sig Dispense Refill ADVAIR DISKUS INHL None Entered albuterol (PROAIR HFA) 90 mcg/Actuation Inhalation HFA Aerosol Inhaler inhale 1 puff by inhalation route every 4-6 hours as needed Albuterol Sulfate 2.5 mg/0.5 mL Inhalation Solution for Nebulization inhale 0.[address] (2.5 mg) by nebulization route 3 times per day doxazosin 8 mg Oral Tablet take 1 tablet (8 mg) by oral route once daily escitalopram (LEXAPRO) 10 mg Oral Tablet take 1 tablet (10 mg) by oral route once daily fluticasone (FLOVENT HFA) 220 mcg/Actuation Inhalation Aerosol inhale 2 puffs (220 mcg) by inhalation route 2 times per day HYDROCHLOROTHIAZIDE OR take 1 tablet (25mg) every day ibuprofen 800 mg Oral Tablet take 1 tablet (800 mg) by oral route 2-3 times per day wit h food IPRATROPIUM BROMIDE (BULK) MISC use w/ nebulizer 4 times daily lisinopril 10 mg Oral Tablet take 1 tablet (10 mg) by oral route once daily lovastatin 20 mg Oral Tablet take 1 tablet (20 mg) by oral route once daily with evenin g meal mirtazapine (REMERON) 30 mg Oral Tablet take 1 tablet (30 mg) by oral route once daily before bedtime omeprazole (PRILOSEC) 20 mg Oral Capsule, Delayed Release(E.C.) take 1 capsule (20 mg) by oral route once daily before a meal potassium chloride SR 10 mEq Oral Tab Sust.Rel. Particle/Crystal take 1 tablet every da y prazosin 1 mg Oral Capsule take 1 capsule (1 mg) by oral route 3 times per day SINGULAIR ORAL take 1 tablet per day Theophylline 300 mg Oral Tablet take 1 tablet (300 mg) by oral route every 8 hours ALLERGIES: Allergies Allergen Reactions Penicillins Rash REVIEW OF SYSTEMS: Please see HPI and PMH. In addition, he denies fever, chills, sweats, weight loss or loss of appetite, and has no further skin complaints. PHYSICAL EXAMINATION: Vitals as noted above. Munoz skin type II. Well-appearing male in no acute distress. Awake, alert and oriented. Pleasant and coopera tive mood. A complete skin examination was performed including the scalp, face, eyelids, ears, lips, t eeth, tongue, oral mucosa, neck, chest, back, abdomen, buttocks, bilateral arms and legs, bi lateral hands and feet, and nails. Findings were within normal limits except for the follow ing: --numerous erythematous papules on trunk and extremities; some follicularly based, some cru sted and/or excoriated --genital area clear --one tiny papule in webspace, otherwise webspaces clear --face with large, erythematous scaly plaques and greasy scale at eyebrows XIOMARA: negative for mites ASSESSMENT AND PLAN: Widespread pruritic papular eruption. DDx includes scabies (though n egative XIOMARA, lack of genital and webspace involvement, close contacts without sx argue again st this), bacterial folliculitis, PLEVA (though pruritus is atypical). Facial eruption hima ears more c/w seborrheic dermatitis, though family h/o psoriasis raises this as a possibilit y also. --permethrin head to toe, leave on overnight, then repeat in 1 week --wash all bedding, bag quilts x 2 weeks --triamcinolone 0.1% ointment BID x 10 days, daily x 10 days, then prn --hydroxyzine 25-50mg PO Q6h prn --doxycycline 100mg PO BID to presumptively treat for folliculitis RETURN VISIT: 6 weeks Milena Giraldo M.D. Resident, Department of Dermatology [facility] documented in this enco unter Plan of Treatment +--------+ + + + + | Date | Type | Specialty | Care Team | Description | +--------+ + + + + | 04/29/ | Diagnostic | Credit And Collections Representative | Marce Meyer | | | 2019 | Visit | | K, AuD [address] | | | | | | [address] | | | | | | [place], [place] | | | | | | [address] | | +--------+ + + + + documented as of this encounter Visit Diagnoses + + | Diagnosis | + + | Rash and other nonspecific skin eruption | + + | Itch Unspecified pruritic disorder | + + | Folliculitis Other specified disease of hair and hair follicles | + + documented in this encounter
--- OUTSIDE RECORDS SUMMARY | ~2019-04-25 | XMS | Encounter Summary ---
Demographics + + + | Address | [address] | | | [place] [address] | + + + | Home Phone [...] [place] | | | | | [address] | | + + + + + Care Team Providers + +------+ + | Care Perforator Name | Role | Phone | + [...] | diabetes | [place], [place] | [facility], | | | | | mellitus | [address] | [place] | | | | | without | Phone: | [phone] | | | | | mention of | [phone] | | | | | | complication | Fax: | | | | | | , not stated | [phone] | | | | | | as [...] | 2011 | Visit | Center at [facility] [address] | mellitus, type 2) | | | | [address] | [address] | ([facility]) (Primary Dx); | | | | Mailcode: Center | [place], [place] | Obesity (BMI | | | | for Health and | [address] | 30.0-34.9) | | | | Healing, [address] | | | | | | [place], [place] | | | | | | [address] | | | | | | [phone] | | | +--------+---------+ + + + [...] does n't have many options at his fdc. Daily food intake provided: Yes. Gets 3 meals/day at fdc. Does not like the food that is [...] food products. PLAN : PATIENT GOALS: 1. 8396-8469 kcal/d, 2g Na, carb-controlled diet for weight loss, 45g carb per meal x 3 me als/day, 15g carb at HS snack 2. Use healthy plate model for portion control 3. See PCP or skidder operator about restarting Metformin or other DM meds given reports of elevated CBGs 4. Increase physical activity (try Sit & Be Fit or other chair-based exercises) RD phone number, office hours provided to patient. Faxed list of recommendations to care fa deb per pt's request. Follow up as needed to monitor weight. Anita Sargent RD, LD Pager [phone] documented in this en counter Plan of Treatment +--------+ + + + + | Date | Type | Specialty | Care Team | Description | +--------+ + + + + | 04/29/ | Diagnostic | Dental Manager | Marce Meyer | | | 2019 | Visit | | Eve Briseno [address] | | | | | | [address] | | | | | | [place], [place] | | | | | | [address] | | +--------+ + + + + documented as of this encounter Procedures + +--------+ + + + | Procedure Name | Priori | Date/Time | Associated Diagnosis | Comments | | | ty | | | | + +--------+ + + + | [place] MNT INITIAL | Routin | 07/14/2012 | DM2 (diabetes | | | ASSESSMNT X15MIN | e | 3:21 PM | mellitus, type 2) | | | | | PST | ([facility]) Obesity (BMI | | | | | | 30.0-34.9) | | + +--------+ + + + documented in this encounter Visit Diagnoses + + | Diagnosis | + + | DM2 (diabetes mellitus, type 2) ([facility]) - Primary Type II or unspecified type diabetes | | mellitus without mention of complication, not stated as uncontrolled | + + | Obesity (BMI 30.0-34.9) Obesity, unspecified | + + documented in this encounter
--- OUTSIDE RECORDS SUMMARY | ~2019-04-25 | XMS | Encounter Summary ---
Demographics + + + | Address | [address] | | | [place] [address] | + + + | Home Phone [...] [place] | | | | | [address] | | + + + + + Care Team Providers + +------+ + | Care Oven Tender Bagels Name | Role | Phone | + [...] [address] | | | | | a of middle | [address] | [address] | | | | | ear and | [address] | Mailcode: | | | | | mastoid(385. | [place], [place] | [address] | | | | | [address]) | [address] | Hospital | | | | | Procedures | | [place], [place] | | | | | [address] [place] | | [address] | | | | | BENIGN | | Phone: | | | | | DISEASE WO | | [phone] | | | | | | | Fax: | | | | | | | [phone] | +--------+--------+ + + + + Diagnostic Testing (Routine) +--------+--------+ + + + + | Status | Reason | Specialty | Diagnoses / | Referred By | Referred To | | | | | Procedures | Contact | Contact | +--------+--------+ + + + + | Closed | | Radiology | Diagnoses | Dimitriso, | Rad Ct Scan | | | | | | Willie Valente MD | s [address] | | | | | [place] | [address] | [address] | | | | | a of middle | [address] | | | | | ear and | [address] | Mailcode: | | | | | mastoid([address]. | [place], [place] | [address] [facility] | | | | | 33) | [address] | Hospital | | | | | Procedures | | [place], [place] | | | | | [address] | | [address] | | | | | BENIGN | | Phone: | | | | | DISEASE WO | | [phone] | | | | | | | Fax: | | | | | | | [phone] | +--------+--------+ + + + + Reason for Visit Diagnostic Testing (Routine) +--------+--------+ + + + + | Status | Reason | Specialty | Diagnoses / | Referred By | Referred To | | | | | Procedures | Contact | Contact | +--------+--------+ + + + + | Closed | | Radiology | Diagnoses | Dimitrios, | Mark Ct Scan | | | | | | Willie Valente MD | s [address] | | | | | [place] | [address] | [address] | | | | | a of middle | [address] | [address] | | | | | ear and | [address] | Mailcode: | | | | | mastoid([address]. | [place], [place] | [address] [facility] | | | | | 33) | [address] | Hospital | | | | | Procedures | | [place], [place] | | | | | [address] | | [address] | | | | | BENIGN | | Phone: | | | | | DISEASE WO | | [phone] | | | | | | | Fax: | | | | | | | [phone] | +--------+--------+ + + + + Encounter Details +--------+ + + + + | Date | Type | Department | Care Team | Description | +--------+ + + + + | 12/03/ | Hospital | Radiology/Imaging | | | | 2012 | Encounter | Lab at [facility] [address] | | | | | | [address] Mailcode: | | | | | | CH3G [facility] | | | | | | Health and Healing, | | | | | | [place] [address], [facility] | | | | | | Floor [place], [place] | | | | | | [address] | | | | | | [phone] | | | +--------+ + + + [...] 2 puffs every | | 0 | // | | | mcg/actuation | 4 hours [...] + + | 04/29/ | Diagnostic | Gate Tender | Marce Meyer | | | 2019 | Visit | | Finn, AuD [address] [facility] | | | | | | [address] | | | | | | [place], [place] | | | | | | [address] | | +--------+ + + + + documented as of this encounter Procedures + +--------+ + + + | Procedure Name | Priori | Date/Time | Associated Diagnosis | Comments | | | ty | | | | + +--------+ + + + | [facility] [place] BENIGN | Routin | 12/03/2012 | Cholesteatoma of | Results for this | | DISEASE WO CONTRAST | e | 9:29 AM | middle ear and | procedure are in the | | | | PDT | mastoid | results section. | + +--------+ + + + documented in this encounter Results [facility] [place] BENIGN DISEASE WO (12/03/2012 9:29 AM PDT) + + + + + + | Component | Value | Ref Range | Performed | Pathologist | | | | | At | Signature | + + + + + + | [facility] [place] | CT Temporal Bones, | | | | | BENIGN | 12/03/12 09:29:00 | | | | | DISEASE WO | INDICATION: Right | | | | | | cholesteatoma. | | | | | | COMPARISON: CT of the | | | | | | temporal bones from | | | | | | 12/03/10. TECHNIQUE: | | | | | | High-resolution axial | | | | | | and coronal or coronally | | | | | | reformattedCT images of | | | | | | the skull base, with | | | | | | special attention to the | | | | | | temporalbones were | | | | | | obtained without | | | | | | contrast. Portions of | | | | | | the brain and facewere | | | | | | also included in the | | | | | | imaging field. | | | | | | FINDINGS: Temporal | | | | | | bones:Right temporal | | | | | | bone: The patient is | | | | | | again noted to be status | | | | | | postright canal wall | | | | | | down | | | | | | mastoidectomy. Small | | | | | | amount of soft | | | | | | tissuelining the | | | | | | mastoidectomy defect is | | | | | | again noted but is | | | | | | unchanged.There is | | | | | | decreased opacification | | | | | | of the left middle ear | | | | | | cavity whencompared to | | | | | | the prior examination | | | | | | with decreased | | | | | | opacification | | | | | | inprostatic space and | | | | | | along the tympanic | | | | | | membrane. Blunting of | | | | | | thescutum is | | | | | | stable. No new areas | | | | | | of osseous erosion or | | | | | | destruction | | | | | | areidentified. The | | | | | | tegmen tympani and | | | | | | tegmen mastoideum are | | | | | | intact.The ossicles | | | | | | remain intact. The | | | | | | inner ear structures | | | | | | includingcochlea, | | | | | | ossicles, and | | | | | | semicircular canals are | | | | | | unremarkable. Theinte | | | | | | rnal auditory canal is | | | | | | also unremarkable. Left | | | | | | temporal bone: There is | | | | | | redemonstration of a | | | | | | left cochlearimplant | | | | | | which appears unchanged | | | | | | in position. The | | | | | | patient is againnoted to | | | | | | be status post left | | | | | | canal wall up | | | | | | mastoidectomy. Thepre | | | | | | viously seen soft tissue | | | | | | attenuation filling the | | | | | | mastoidectomydefect is | | | | | | no longer | | | | | | identified. There is | | | | | | persistent opacification | | | | | | ofthe remaining | | | | | | visualized left mastoid | | | | | | air cells. Soft | | | | | | tissue withinthe | | | | | | external auditory canal | | | | | | is less prominent on | | | | | | this examination.There | | | | | | has been interval | | | | | | resolution of the | | | | | | previously | | | | | | seenopacification of the | | | | | | left middle ear | | | | | | cavity. The ossicles | | | | | | are intactand appear | | | | | | unchanged. The inner | | | | | | ear structures including | | | | | | thecochlea, vestibule, | | | | | | and semicircular canals | | | | | | are | | | | | | unremarkable. Theinte | | | | | | rnal auditory canals | | | | | | also unremarkable. No | | | | | | new areas of | | | | | | osseouserosion or | | | | | | obstruction identified. | | | | | | | | | | | | IMPRESSION:1. Interva | | | | | | l resolution of | | | | | | opacification of the | | | | | | left middle ear | | | | | | andmastoidectomy | | | | | | defect. No osseous | | | | | | erosion or soft tissue | | | | | | lesionidentified in the | | | | | | left temporal bone to | | | | | | suggest | | | | | | cholesteatoma.2. Slig | | | | | | ht interval improvement | | | | | | in aeration of the right | | | | | | middle earcavity which | | | | | | remains partially | | | | | | opacified, otherwise no | | | | | | intervalchange of the | | | | | | right temporal bone. | | | | | | Attending Radiologists: | | | | | | SABINA CEDILLO, | | | | | | MDAuthor: RAJENDRA SPRAGUE, | | | | | | MD I have personally | | | | | | viewed this | | | | | | procedure/exam, reviewed | | | | | | this report,and made | | | | | | changes to it where | | | | | | appropriate. | | | | | | Final/Electronically | | | | | | signed / SABINA Hinton | | | | | | MAMADOU 12/03/2012 | | | | | | 14:37PM Pending final | | | | | | approval / RAJENDRA | | | | | | DARCIE 12/03/2012 14:20 | | | | | | PM Preliminary / | | | | | | RAJENDRA [facility]PORTL[facility]OSPITALReynaldo 12/03/2012 | | | | | | 12:53 PM | | | | + + [...]
--- OUTSIDE RECORDS SUMMARY | ~2019-04-25 | XMS | Encounter Summary ---
Demographics + + + | Address | [address] | | | [place] [address] | + + + | Home Phone [...] Author + + + | Author | [facility] | + + + | Organization | [facility] | + + + | Address | Unknown | + + + | Phone | Unavailable | + + + Support + + + + + | Name | Relationship | Address | Phone | + + + + + | Margartio Owusu | ECON | [address] | | | | | [place] | | | | | [address] | | + + + + + Care Team Providers + +------+ + | Care Ground Layer Name | Role | Phone | + +------+ + | Maurice Zelaya MD | PCP | | + +------+ + Encounter Details +--------+ + + + + | Date | Type | Department | Care Team | Description | +--------+ + + + + | 08/11/ | Office | [facility] | Jaison Rosario, | Progress Note | | 2008 | Visit-Trans | [address] | [address] | | | | chuy | [place] | [place] | | | | | [phone] | [address] | | | | | | [phone] | | | | | | | [...] documented as of this encounter Progress Notes Jaison Rosario - 08/12/2008 5:31 AM [facility] [address] [place] [id number] KISHOR VIVAR DATE OF CONSULTATION: 08/11/2008 REQUESTING PHYSICIAN(S): Ashley Echevarria M.D. REASON FOR CONSULTATION: Management of the patient's cardiopulmonary status. HISTORY OF PRESENT ILLNESS: This is a patient 2 days after abdominal mesh surgery who presents with increasing abdominal pain and leukocytosis. PRIMARY CARE PROVIDER: Marion Booker. LIVING SITUATION: Lives with his sister. PERSON TO NOTIFY: Mother, Vale Montano, . POWER OF ENERGY SALES BROKER: Self, but mother is considering being the medical power of research attorney. CODE STATUS: Full code. HISTORY OF PRESENT ILLNESS: The patient is a 42-year-old who underwent laparoscopic repair of ventral hernia by Dr. Ashley Echevarria on August 09, 2008. There was reduction of an incarcerated hernia and repair with mesh, all done laparoscopically. Patient returns today due to abdominal pain and some sweats. He has not had a bowel movement for several days. Has a leukocytosis and an elevated indirect bilirubin. Patient also seen Marion Rees on August 03, 2008 and was on a prednisone taper for that. PAST MEDICAL HISTORY: 1. Umbilical hernia, status post recent repair. 2. Alcoholic fatty liver. 3. Depression. 4. Rectal bleeding with a negative colonoscopy on March 2008, except for "friable tissue." 5. Bipolar disorder. 6. Chronic insomnia. 7. PTSD. 8. Mastoid disease, status post mastoidectomy. 9. Low back pain. 10.Dysphagia, upper endoscopy March 2008 was negative. 11.Patient declined barium swallow. 12.GERD. 13.Chronic smoking of cigarettes, not willing to quit or cut down. 14.Hearing loss with resultant left cochlear implant. 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 16.Obstructive sleep apnea. Has CPAP at home, supposed to be a 12, but the mask is currently broken, and he has been waiting a month for the new mask. KISHOR VIVAR [id number] ADMIT DATE: 08/11/08 17.Hyperlipidemia. 18.Allergic rhinitis. 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 20.Spirometry FEV1 2.44, which is 55% of predicted, and FVC 4.43, which is 81% of predicted. He is felt to have very mild COPD and reactive airway disease. It was recommended to wean the patient off of theophylline. 21.Hypertension. CURRENT MEDICATIONS: Set up by mother: 1. Advair Diskus 250/50 b.i.d. 2. Hydrochlorothiazide 25 mg p.o. q. day. 3. Lexapro 10 mg q.h.s. 4. Lisinopril 10 mg p.o. q. day. 5. Lovastatin 20 mg q.h.s. 6. Mirtazapine 30 mg q.h.s. 7. Neurontin 300 mg 2 q.h.s. 8. Potassium chloride 10 mEq. p.o. q. day. 9. Prazosin 1 mg 2 q.h.s. 10.Prednisone, currently on taper going down to 10 mg 2 q. day for the next few days and then off. 11.Prilosec OTC 20 mg q. day. 12.Pro-Air 90 mcg 1 to 2 puffs b.i.d. 13.Spiriva 18 mcg 1 puff daily. 14.Theophylline 300 mg b.i.d. 15.Vicodin 5/500, 1 to 2 q. 4 p.r.n. pain. 16.Oxycodone 1 to 2 q. 4 p.r.n. pain. PAST SURGICAL HISTORY: 1. Cochlear implants. 2. Mastoid surgery x2. 3. Colonoscopy and upper endoscopy multiple times. ALLERGIES: PENICILLIN. SOCIAL HISTORY: Drinks a 6-pack of beer per week. Last drink was July 26. Smokes 2-1/2 packs of cigarettes per day; has done so ever since he was a teenager. Is not considering cutting down. Lives with his sister. FAMILY HISTORY: Mother with coronary disease. Father CHF. Brother had an PA, unknown age. REVIEW OF SYSTEMS: Baseline cough, which is mildly productive of yellowish sputum. No increase in dyspnea. No headache. No change in his vision. No change in his hearing. No difficulty swallowing. No significant edema of the extremities. PHYSICAL EXAMINATION: GENERAL: The patient, at presentation, was in a lot of distress due to discomfort. He has, since I have seen him, received 5 doses of IV Dilaudid, Zofran and Ativan. VITAL SIGNS: Blood pressure presentation 154/114, pulse 108, respirations 20, temperature 98.7, O2 sat 94% on room air. He is, by the time I see him, in no acute distress. HEENT: Has a left hearing device for his cochlear implant. Mildly hard of hearing. Affect is appropriate. NECK: Supple. LUNGS: Mild rhonchi with normal air exchange. CARDIAC: Regular rhythm. KISHOR VIVAR [id number] ADMIT DATE: 08/11/08 ABDOMEN: Protuberant. Evidence of recent incision and Steri-strips from the laparoscopic approach. Bowel sounds are absent. There is a protrusion of the umbilical defect. Abdominal exam per Ashley Echevarria. EXTREMITIES: No cyanosis or clubbing. No edema. DIAGNOSTIC DATA: Portable abdominal film does not reveal any evident free air into the abdomen. LABORATORY DATA: White count is 19,000, hemoglobin 15, hematocrit 42, platelet count 190,000. Sodium 130, potassium 3.0, glucose 129, alk phos 59. SGOT 43, SGPT 54, total bili 2.1, direct bili 0.2, indirect bili 1.9. ASSESSMENT: 1. Leukocytosis, abdominal pain 2 days following a laparoscopic reduction of incarcerated hernia, as well as ventral hernia, mesh repair. 2. Mild chronic obstructive pulmonary disease with some reactive airway disease component. Patient unwilling to quit smoking cigarettes. This should not be a major contributing problem with this patient during his hospital. 3. Hyponatremia and hypokalemia. Isotonic saline with potassium will be infused. 4. Code status: Patient requests full code. 5. Smoking cessation. Counseled this patient, his mother and his sister all about quitting smoking. 6. Obstructive sleep apnea. Patient will be getting narcotic therapy. His mask at home is broken. 7. Deep vein thrombosis prophylaxis. Will not start any this evening in case the patient undergoes surgery; however, if no surgery is planned, and the patient will be hospitalized, should consider enoxaparin therapy. PLAN: 1. Per Dr. Echevarria, she is getting an abdominal pelvic and chest CT. 2. Starting the patient on Cipro and Flagyl. Blood cultures have already been obtained. 3. Source of the leukocytosis and abdominal pain may well be intra-abdominal or related to his recent surgery. Certainly etiology such as pneumonia is not inconceivable with his chronic obstructive pulmonary disease and the slight increase in his sputum production. Agree with IV fluoroquinolone, as well as IV Flagyl. 4. Morphine for pain (will be using CPAP on telemetry). 5. Patient will be admitted to telemetry. 6. DuoNeb q.i.d. 7. Albumin neb p.r.n. 8. Advair inhaler to be continued. 9. Will not be giving systemic steroids, as it seems the patient does not require that. If he develops increasing wheezing, dyspnea, cough, then could consider systemic steroids. 10.The asbestos pipe supervisor at [facility] who saw the patient in March felt that withdrawing Singulair followed by theophylline was certainly appropriate, and will not have him on either one right now. Consider at discharge discontinuing at least theophylline and possibly the Singulair. 11.Put him on telemetry and use a CPAP mask at 12 cm of water which was Dr. Brantley's recommendation at this last sleep study. 12.Will be giving IV proton pump inhibitor therapy. PATEL/KISHOR Pal [id number] ADMIT DATE: 08/11/08 /[id number] cc: Adelaida Martinez Electronically Signed MD CB Vaughan KEVIN R [id number] ADMIT DATE: 08/11/08 [facility] umented in this encounter Plan of Treatment +--------+ + + + + | Date | Type | Specialty | Care Team | Description | +--------+ + + + + | 04/29/ | Diagnostic | Spragger | Marce Meyer | | | 2019 | Visit | | [place], [place] [address] [facility] | | | | | | [address] | | | | | | [place], [place] | | | | | | [address] | | +--------+ + + + + documented as of this encounter Visit Diagnoses Not on filedocumented in this encounter
--- OUTSIDE RECORDS SUMMARY | ~2019-04-25 | XMS | Encounter Summary ---
Demographics + + + | Address | [address] | | | [place] [address] | + + + | Home Phone | | + + + | Preferred Language | Unknown | + + + | Marital Status | Single | + + + | Pentecostal Affiliation | BAP | + + + [...] [place] | | | | | [address] | | + + + + + Care Team Providers + +------+ + | Care Carton Maker Name | Role | Phone | + +------+ + | Deidre Card | PCP | | + +------+ + Encounter Details +--------+ + + + + | Date | Type | Department | Care Team | Description | +--------+ + + + + | 10/20/ | Procedure - | UNKNOWN DEPARTMENT | Other, Faculty | EEG | | 2001 | | [address] [facility] | [phone] | | | | Transcribed | [address] | | | | | | [place] | | | | | | [address] | | | +--------+ + + + [...] Neurology Fellow Jacquelin Borrero M.D. DK / [id number] / [id number] / [id number] / documented in this encou nter Plan of Treatment +--------+ + + + + | Date | Type | Specialty | Care Team | Description | +--------+ + + + + | 04/29/ | Diagnostic | Electrical Controls Assembler | Marce Meyer | | | 2018 | Visit | | [place], Eve [address] [facility] | | | | | | [address] | | | | | | [place], [place] | | | | | | [address] | | +--------+ + + + + [...] | | | TANNER / | | [id number] / [id number] / [id number] / | | | | | | | + + documented in this encounter Visit Diagnoses Not on filedocumented in this encounter"
--- OUTSIDE RECORDS SUMMARY | ~2019-04-25 | XMS | Encounter Summary ---
Demographics + + + | Address | [address] | | | [place] [address] | + + + | Home Phone [...] | Margarito Owusu | ECON | [address] | | | | | [place] | | | | | [address] | | + + + + + Care Team Providers + +------+ + | Care Casting Trucker Name | Role | Phone | + [...] as of this encounter Progress Notes Interface, Wet Plant Operator In - 02/23/2005 8:51 AM PDT [id number] [facility] Date: 06/12/2004 Clinic: [facility], [...] or sooner if needed. Haroon Poe Ed.D. Airport Operations Supervisor / [id number] / [id number] / [id number] / documented i n this encounter Plan of Treatment +--------+ + + + + | Date | Type | Specialty | Care Team | Description | +--------+ + + + + | 04/29/ | Diagnostic | Carpenter Supervisor Wooden Ship | Marce Meyer | | | 2019 | Visit | | K, Eve [address] [facility] | | | | | | [address] | | | | | | [place], [place] | | | | | | [address] | | +--------+ + + + + documented as of this encounter Visit Diagnoses Not on filedocumented in this encounter"
--- OUTSIDE RECORDS SUMMARY | ~2019-04-25 | XMS | Encounter Summary ---
Demographics + + + | Address | [address] | | | [place] [address] | + + + | Home Phone [...] [place] | | | | | [address] | | + + + + + Care Team Providers + +------+ + | Care Manager Sharepoint Name | Role | Phone | + [...] | | | [address] | [place] [address] | | | | | Mailcode: [address] | | | | | | Physician's Chris | | | | | | [place], [place] | | | | | | [address] | | | | | | [phone] | | | +--------+ + + + [...] + + | 04/29/ | Diagnostic | Satellite Television Installer | Marce Meyer | | | 2019 | Visit | | Eve Briseno [address] | | | | | | [address] | | | | | | [place], [place] | | | | | | [address] | | +--------+ + + + + [...] | | + +---------+ + + | [facility] DEPARTMENT OF | | [...]
--- OUTSIDE RECORDS SUMMARY | ~2019-04-25 | XMS | Encounter Summary ---
Demographics + + + | Address | [address] | | | [place] [address] | + + + | Home Phone | | + + + | Preferred Language | Unknown | + + + | Marital Status | Single | + + + | Baptist Affiliation | BAP | + + + [...] [place] | | | | | [address] | | + + + + + Care Team Providers + +------+ + | Care Custom Decorating Consultant Name | Role | Phone | [...] | | Toya Spencer Mailcode: | [address] [place], [place] | | | | | [address] | [id number] | | | | | [place], | | | | | | [place] [address] | | | | | | [phone] | | | +--------+ + + + [...] + + | 04/29/ | Diagnostic | Medical Driver | Marce Meyer | | | 2019 | Visit | | Eve Briseno [address] | | | | | | [address] | | | | | | [place], [place] | | | | | | [address] | | +--------+ + + + + documented as of this encounter Visit Diagnoses Not on filedocumented in this encounter"
--- OUTSIDE RECORDS SUMMARY | ~2019-04-25 | XMS | Encounter Summary ---
Demographics + + + | Address | [address] | | | [place] [address] | + + + | Home Phone | | + + + | Preferred Language | Unknown | + + + | Marital Status | Single | + + + | Pentecostalism Affiliation | BAP | + + + | Race | White | + + + | Ethnic Group | Not or | + + + Author + + + | Author | [facility] | + + + | Organization | [facility] | + + + | Address | Unknown | + + + | Phone | Unavailable | + + + Support + + + + + | Name | Relationship | Address | Phone | + + + + + | Margarito Owusu | ECON | [address] | | | | | [place] | | | | | [address] | | + + + + + Care Team Providers + +------+ + | Care Rivet Tester Name | Role | Phone | + +------+ + | Maurice Zelaya MD | PCP | | + +------+ + Encounter Details +--------+ + + + + | Date | Type | Department | Care Team | Description | +--------+ + + + + | 06/07/ | Office | [facility] | Sage Brantley, | Progress Note | | 2007 | Visit-Trans | E The | MD [address] | | | | chuy | [place] | [place] | | | | | [address] | [address] | | | | | | [phone] | | | | | | | [...] this encounter Progress Notes Sage Brantley - 06/19/2008 12:06 PM [facility] SLEEP STUDIES LABORATORY REPORT [address] [place] [address] OVERNIGHT POLYSOMNOGRAM DATE OF SERVICE: 06/07/2008 REFERRING PHYSICIAN: Marion Rees REASON FOR EVALUATION: The patient has a history of obstructive sleep apnea. He underwent evaluation at the [facility] and was found to have moderate obstructive sleep apnea with an apnea-hypopnea index of 20 per hour. He spent most of the time sleeping non-supine. He was treated with CPAP at a pressure of twelve. He re-presents for evaluation with persistent daytime fatigue despite use of his CPAP. SLEEP ARCHITECTURE: The patient slept for a total of 267.5 for a reduced sleep efficiency of 66% owing to a long sleep onset latency of an fhii-exs-e-half and very little sleep seen after 4 a.m. Four distinct REM periods were seen during the course of his sleep stage, and one was present mild excess. There was a relative lack of stage end III of 3.2%. REM was present normal percentages. The sleep onset latency was 77 minutes. The REM onset latency was longer at 247 minutes. RESPIRATORY SUMMARY: The patient spent 86 minutes on the left side, 181-minute on the right and no time supine. He was initiated with CPAP at 12 and was titrated upwards through 14 and then through 17 for unclear reasons. There was no consistent snoring or hypopneas or apneas. The overall apnea-hypopnea index was normal at 0.9 per hour with 1 central apnea recorded and 3 hypopneas recorded. No RERAs were seen. There did not seem to be excess arousals caused from any form of obstructive breathing. There was one portion of oxygen desaturations into the 80s that appeared to be artifact. MOVEMENT SUMMARY: The PLM index was 23 with an arousal index of 16 indicating moderate sleep disruption from this cause. No abnormal sleep behaviors were noted. AROUSAL SUMMARY: The overall arousal index was 32 per hour, moderately elevated for a man this age to an excess proportion to periodic limb movements of sleep. PHYSIOLOGIC PARAMETERS: Baseline oxygen saturation was 95%. EKG rhythm was sinus. No arrhythmias were noted. No EEG abnormalities were noted. INTERPRETATION: 1. Probable good control of obstructive sleep apnea at a pressure of 12. The patient appeared to be over titrated. 2. Periodic limb movements of sleep of moderate severity that appear to be contributing to excess sleep disruption and perhaps to his excessive daytime sleepiness. Please see sleep clinic follow-up notes for application of these results of the patient's clinical case. PC/MedQ /[id number] KISHOR VIVAR [id number] ADMIT DATE: cc: Marion Rees Electronically Signed MD CB Lam KEVIN R [id number] ADMIT DATE: documented in th is encounter Plan of Treatment +--------+ + + + + | Date | Type | Specialty | Care Team | Description | +--------+ + + + + | 04/29/ | Diagnostic | Maintenance Shop Manager | Marce Meyer | | | 2019 | Visit | | Eve Briseno [address] | | | | | | [address] | | | | | | [place] | | | | | | [address] | | +--------+ + + + + documented as of this encounter Visit Diagnoses Not on filedocumented in this encounter"
--- OUTSIDE RECORDS SUMMARY | ~2019-04-25 | XMS | Encounter Summary ---
Demographics + + + | Address | [address] | | | [place] [address] | + + + | Home Phone [...] [place] | | | | | [address] | | + + + + + Care Team Providers + +------+ + | Care Teacher Hearing Impaired Name | Role | Phone | + [...] | | 2011 | | Center at [facility] [address] | counseling (re: appt | | | | [address] | [address] | on 07/14) | | | | Mailcode: Center | [place], [place] | | | | | for Health and | [address] | | | | | [facility], [address] [address] | | | | | | [place], [place] | | | | | | [address] | | | | | | [phone] | | | +--------+ + + + [...] + + | 04/29/ | Diagnostic | Instrument Setter | Marce Meyer | | | 2018 | Visit | | Eve Briseno [address] | | | | | | [address] | | | | | | [place] | | | | | | [address] | | +--------+ + + + + documented as of this encounter Visit Diagnoses Not on filedocumented in this encounter"
--- OUTSIDE RECORDS SUMMARY | ~2019-04-25 | XMS | Encounter Summary ---
Demographics + + + | Address | [address] | | | [place] [address] | + + + | Home Phone [...] [place] | | | | | [address] | | + + + + + Care Team Providers + +------+ + | Care Financial Aid Administrator Name | Role | Phone | [...] 2009 | | Hearing | Melodie [facility] [address] | | | | | Amplification | [address] | | | | | Services [address] [place], [place] | | | | | [address] | [address] | | | | | Mailcode: [address] | | | | | | Physician's Chris | | | | | | [place], [place] | | | | | | [address] | | | | | | [phone] | | | +--------+ + + + [...] + + | 04/29/ | Diagnostic | Blood Bank Order Control Clerk | Marce Meyer | | | 2019 | Visit | | Eve Briseno [address] | | | | | | [address] | | | | | | [place] | | | | | | [address] | | +--------+ + + + + documented as of this encounter Visit Diagnoses Not on filedocumented in this encounter"
--- OUTSIDE RECORDS SUMMARY | ~2019-04-25 | XMS | Encounter Summary ---
Demographics + + + | Address | [address] | | | [place] [address] | + + + | Home Phone [...] [place] | | | | | [address] | | + + + + + Care Team Providers + +------+ + | Care Aerospace Engineer Officer Armament Name | Role | Phone | + [...] + + | 04/29/ | Diagnostic | Thermal Surfacing Machine Operator | Marce Meyer | | | 2019 | Visit | | Eve Briseno [address] | | | | | | [address] | | | | | | [place], [place] | | | | | | [address] | | +--------+ + + + + [...] | | DIAGNO[facility] | | | | [id number] | | -[place] | | | | [address] | | | | | | [address], | | | | | | [place] [address]ivs | | | | | | : ASHLEY HORTON MD | | | | + + + + + + + + | Specimen | + + | | + + + + + + + | Performing | Address | City/State/Zipcode | Phone Number | | Organization | | | | + + + + + | [facility] | [address] | [place] [address] | [phone] | | [facility] | | | | + + + + + | [facility] | | | | | [facility] | | | | + + + [...] + + + + | WBC, | TITLE SPECIALIST | X10 3/uL | [facility] | | | ADJUSTED | | | A MEDICAL | | | | | | CENTER | | + + + + + + | HEMOGLOBIN | 10.8 (L) | 12.3 - 17.0 | [facility] | | | | | g/dL | A MEDICAL | | | | | | CENTER | | + + + + + + | RED BLOOD | 3.39 (L) | 4.7 - 6.1 X10 | [facility] | | | CELL COUNT | | 6/uL | A MEDICAL | | | | | | CENTER | | + + + + + + | HEMATOCRIT | 29.5 (L) | 40.0 - 54.0 % | [facility] | | | | | | A MEDICAL | | | | | | CENTER | | + + + + + + | MCV | 87.1 | 82 - 100 fl | [facility] | | | | | | A [...] + + + | BANDS % | TITLE SPECIALIST | 0 - 7 % | [...] + + + + | REACTIVE | TITLE SPECIALIST | 0.0 - 4.0 % | [facility] | | | LYMPHS % | | | A MEDICAL | | | | | | CENTER | | + + + + + + | BANDS % | TITLE SPECIALIST | 0 - 7 % | [facility] | | | | | | A MEDICAL | | | | | | CENTER | | + + + + + + | METAMYELOCY | TITLE SPECIALIST | 0 - 0 % | [facility] | | | BRANDON % | | | A MEDICAL | | | | | | CENTER | | + + + + + + | MYELOCYTES | TITLE SPECIALIST | 0 - 0 % | [facility] | | | % | | | A MEDICAL | | | | | | CENTER | | + + + + + + | PROMYELOCYT | TITLE SPECIALIST | 0 - 0 % | [facility] | | | ES % | | | A MEDICAL | | | | | | CENTER | | + + + + + + | BLASTS | TITLE SPECIALIST | 0 - 0 % | [...] + + + + | NUCLEATED | TITLE SPECIALIST | | [facility] | | | RBCS | | | A MEDICAL | | | | | | CENTER | | + + + + + + | GIANT PLT | TITLE SPECIALIST | | [facility] | | | [...] | + + + + + | [facility] | And | [place] [address] | | | [facility] | Streets | | | + + [...] [facility] | And | [place] [address] | | | [facility] | [place] | | | + + + + + documented in this encounter Visit Diagnoses Not on filedocumented in this encounter"
--- OUTSIDE RECORDS SUMMARY | ~2019-04-25 | XMS | Encounter Summary ---
Demographics + + + | Address | [address] | | | [place] [address] | + + + | Home Phone [...] Margarito Owusu | ECON | [address] | | | | | [place] | | | | | [address] | | + + + + + Care Team Providers + +------+ + | Care Data Review Specialist Name | Role | Phone | [...] as of this encounter Progress Notes Interface, Picking Machine Operator Helper In - 02/23/2005 7:49 AM PDT [id number] [facility] Date: 04/09/2004 Clinic: Neural response telemetry was [...] anesthesiologist. Meka Murray M.A., C.C.C.-A. Cochlear Implant Tool Carrier ANALY / [id number] / [id number] / [id number] / documented i n this encounter Plan of Treatment +--------+ + + + + | Date | Type | Specialty | Care Team | Description | +--------+ + + + + | 04/29/ | Diagnostic | Tool Carrier | Marce Meyer | | | 2019 | Visit | | Eve Briseno [address] | | | | | | [address] [address] | | | | | | [place], [place] | | | | | | [address] | | +--------+ + + + + documented as of this encounter Visit Diagnoses Not on filedocumented in this encounter"
--- OUTSIDE RECORDS SUMMARY | ~2019-04-25 | XMS | Encounter Summary ---
Demographics + + + | Address | [address] | | | [place] [address] | + + + | Home Phone [...] [place] | | | | | [address] | | + + + + + Care Team Providers + +------+ + | Care Recovery Collector Name | Role | Phone | + +------+ + | Jaison Chávez MD | PCP | | + +------+ + Encounter Details +--------+ + + + + | Date | Type | Department | Care Team | Description | +--------+ + + + + | 08/02/ | Results | NON-[facility] | Marion Rees, | | | 2008 | Only | Department | [facility] Walker | | | | | | [place] [facility] | | | | | [facility] [address] | | [address] [place], | | | | | | [place] [address] | | | | | | [phone] | | | | | | | [...] + + | 04/29/ | Diagnostic | Knotting Machine Operator Portable | Marce Meyer | | | 2019 | Visit | | Eve Briseno [address] | | | | | | [address] | | | | | | [place], [place] | | | | | | [address] | | +--------+ + + + + documented as of this encounter Procedures + +--------+ + + + | Procedure Name | Priori | Date/Time | Associated Diagnosis | Comments | | | ty | | | | + +--------+ + + + | CHEST 2 VIEW [id number] | Routin | 08/02/2008 | | Results for this | | | e | 3:16 PM | | procedure are in the | | | | PST | | results section. | + +--------+ + + + documented in this encounter Results CHEST 2 VIEW [id number] (08/02/2008 3:16 PM PST) + + | Specimen | + + | | + + + + + | Narrative | Performed At | + + + | CHEST, TWO VIEWS: CLINICAL HISTORY: COPD. TECHNIQUE: PA and | [facility] | | lateral views of the chest were obtained. COMPARISON: None | DEPARTMENT OF | | available. FINDINGS: The heart is normal in size. There is no | RADIOLOGY | | infiltrate, pneumothorax, effusion or evidence of pulmonary vascular | | | congestion. The visualized bony structures are grossly unremarkable. | | | IMPRESSION: No acute cardiopulmonary process. #[id number] | | + + + + + | Procedure Note | + + | Interface, Radiology Results - 03/16/2015 11:52 AM PDT CHEST, TWO VIEWS: | | CLINICAL HISTORY: COPD. | | TECHNIQUE: PA and lateral views of the chest were obtained. | | COMPARISON: None available. | | FINDINGS: The heart is normal in size. There is no infiltrate, | | pneumothorax, effusion or evidence of pulmonary vascular congestion. | | The visualized bony structures are grossly unremarkable. | | IMPRESSION: | | No acute cardiopulmonary process. | | #[id number] | + + + +---------+ + + [...]
--- OUTSIDE RECORDS SUMMARY | ~2019-04-25 | XMS | Encounter Summary ---
Demographics + + + | Address | [address] | | | [place] [address] | + + + | Home Phone | | + + + | Preferred Language | Unknown | + + + | Marital Status | Single | + + + | Denominational Affiliation | BAP | + + + | Race | White | + + + | Ethnic Group | Not or | + + + Author + + + | Author | [facility] | + + + | Organization | [facility] | + + + | Address | Unknown | + + + | Phone | Unavailable | + + + Support + + + + + | Name | Relationship | Address | Phone | + + + + + | Margarito Owusu | ECON | [address] | | | | [place] | | | | | [address] | | + + + + + Care Team Providers + +------+ + | Care Border Patrol Officer Name | Role | Phone | + +------+ + | Maurice Zelaya MD | PCP | | + +------+ + Encounter Details +--------+ + + + + | Date | Type | Department | Care Team | Description | +--------+ + + + + | 05/10/ | Office | [facility] | Sage Brantley, | Progress Note | | 2007 | Visit-Trans | E The | MD Allan Mullen | | | | chuy | [place] | [place] | | | | | [address] | [address] | | | | | | [phone] | | | | | | | [...] this encounter Progress Notes Sage Brantley - 05/10/2008 5:[address] [facility] SLEEP STUDY CONSULTATION [address] [place] [id number] KISHOR VIVAR DATE OF SERVICE: 05/10/2008 REFERRING PHYSICIAN: REASON FOR EVALUATION: Mr. Vivar is a 42-year-old man who has a history of obstructive sleep apnea. However, he is persistently tired during the day and has a sense of insufficient pressure at night. He was diagnosed in 2003 with moderate SUSAN. Apnea-hypopnea index was 20.5. CPAP at a pressure of 12 was started on a split-night protocol. He, at that time, presented with excessive daytime sleepiness. He reports improvement in the sleepiness with the CPAP, which he still uses all night long and during his 1-2 hour daily naps. He is still awakened gasping and choking at night with a sense that he is not getting enough pressure. He does use a humidifier and a full facemask. He has nasal congestion and blockage despite nasal surgery last year. He reports he is still primarily a mouth breather. Generally, he sleeps on the right side. He sometimes feels sleepy on awakening as he did when he went to bed. [place] sleepiness scale score is filled out with a series of checks versus numerical designation as requested. He indicates there is a significant chance of dozing while sitting, reading, watching TV, lying down in the afternoon. He goes to bed between 10 p.m. and 12 a.m. Sleep onset latency is 30-60 minutes. He awakens 3-4 times per night gasping and choking or due to pain or nightmares, in which he has recurrent themes of homicide. This is disturbing to him and thought to be related to PTSD and depression with anxiety for a number of years. He has frequent dry mouth despite use of his humidifier. He has no sleep hallucinations or sleep paralysis. He has also been known to talk in his sleep and yell out. He has a sensation of discomfort in his right leg and left leg. He has, apparently, sciatic nerve problems and uses a wheelchair. He has difficulty with carpal tunnel type numbness in the wrists and hands at night. He has had morning headache and nocturnal gastroesophageal reflux. There is no cataplexy. SOCIAL HISTORY: He uses 2-1/2 packs of cigarettes per day, uses alcohol intermittently, and drinks 2 caffeinated beverages per day. PAST MEDICAL HISTORY: His medical history is significant for: 1. Depression. 2. Bipolar disorder. 3. PTSD. 4. Low back pain. 5. Gastroesophageal reflux. 6. Hearing loss, status post cochlear implant. 7. Leg paralysis. 8. Sleep apnea. 9. Hyperlipidemia. 10.Allergic rhinitis. 11.COPD. 12.Hypertension. MEDICATIONS: He is followed at [facility] for his COPD and he is on extensive daily medicines to control this, includin. Flovent 4 times per day. KISHOR VIVAR [id number] ADMIT DATE: 2. ProAir 4 times a day. 3. Nebulizers 4 times daily. Morning medicines include: 1. Prilosec. 2. Hydrochlorothiazide. 3. Doxazosin. 4. Theophylline. Afternoon medicines include: 1. Lexapro 10 mg daily. 2. Prazosin 1 mg, 2 pills daily. 3. Mirtazapine 30 mg a day. 4. Lovastatin 20 mg a day. 5. Theophylline 300 mg a day. FAMILY HISTORY: Noncontributory. PHYSICAL EXAMINATION: VITAL SIGNS: By report, he is 6 feet tall and weighs 268 pounds. On exam today, pulse is 90 beats per minute and regular. O2 saturation is 97%. HEENT: Nose shows a significant deviated septum to the left with blockage of the inlet on that side. Turbinate appears normal on the right, as does the mucosa. Oropharynx shows the presence of dentures and narrow oropharyngeal inlet with generous lateral soft tissues and a low uvula. HEART: Exam shows regular rate and rhythm. No murmur, rub, or gallop. LUNGS: Exam shows bilateral wheezes throughout. ASSESSMENT: Mr. Vivar is a 42-year-old man with significant chronic obstructive pulmonary disease and nightmares relating to post-traumatic stress disorder. He has obstructive sleep apnea with symptoms of subtherapeutic pressures, with a tendency to awaken gasping with a sense of low pressure. He may have some restless limbs related to his neurological problems and possible periodic limb movements. He has hypersomnia with an additional 1-2 hour sleep period in the middle of the day despite, apparently, sleep of adequate duration at night. He denies any sleepiness while driving and reports that, in terms of alertness, he drives "just fine." RECOMMENDATIONS: My recommendation is that he undergo CPAP retitration, given the potential for changing pressure needs over the interval since his last study and, with his severe COPD, he may require BiPAP titration to optimize his tolerance. Further recommendations will be made pending the results of that study. SCOTT/MedQ /[id number] Electronically Signed Sage Brantley MD KISHOR VIVAR [id number] ADMIT DATE: documented in th is encounter Plan of Treatment +--------+ + + + + | Date | Type | Specialty | Care Team | Description | +--------+ + + + + | 04/29/ | Diagnostic | Label Machine Operator | Marce Meyer | | | 2019 | Visit | | Eve Briseno [address] | | | | | | [address] | | | | | | [place] | | | | | | [address] | | +--------+ + + + + documented as of this encounter Visit Diagnoses Not on filedocumented in this encounter
--- OUTSIDE RECORDS SUMMARY | ~2019-04-25 | XMS | Encounter Summary ---
Demographics + + + | Address | [address] | | | [place] [address] | + + + | Home Phone [...] [place] | | | | | [address] | | + + + + + Care Team Providers + +------+ + | Care Typewriter Operator Automatic Name | Role | Phone | + +------+ + | Maurice Zelaya MD | PCP | | + +------+ + Encounter Details +--------+ + + + + | Date | Type | Department | Care Team | Description | +--------+ + + + + | 08/11/ | H&P-Transcr | [facility] | Ashley Omalley MD | History & Physical | | 2008 | ibed | E The | [facility] | | | | | [place] | [facility] [address] | | | | | [address] | [address] | | | | | | [place] [address] | | | | | | [phone] | | | | | | | [...] + + | 04/29/ | Diagnostic | Gasoline Plant Operator | Marce Meyer | | | 2019 | Visit | | Eve Briseno [address] | | | | | | [address] | | | | | | [place] | | | | | | [address] | | +--------+ + + + + documented as of this encounter Visit Diagnoses Not on filedocumented in this encounter"
--- OUTSIDE RECORDS SUMMARY | ~2019-04-25 | XMS | Encounter Summary ---
Demographics + + + | Address | [address] | | | [place] [address] | + + + | Home Phone [...] [place] | | | | | [address] | | + + + + + Care Team Providers + +------+ + | Care Junior Linux Systems Administrator Name | Role | Phone | [...] as of this encounter Progress Notes Interface, Relations Liaison In - 02/23/2005 8:01 AM PDT [id number] [facility] Date: 05/15/2004 Clinic: Otolaryngology [...] followup mapping and assessment. Haroon Poe Ed.D. Dog Sitter KYLE / [id number] / [id number] / [id number] / [id number] documented i n this encounter Plan of Treatment +--------+ + + + + | Date | Type | Specialty | Care Team | Description | +--------+ + + + + | 04/29/ | Diagnostic | Marine Engineering Professor | Marce Meyer | | | 2019 | Visit | | Eve Briseno [address] | | | | | | [address] | | | | | | [place], [place] | | | | | | [address] | | +--------+ + + + + documented as of this encounter Visit Diagnoses Not on filedocumented in this encounter"
--- OUTSIDE RECORDS SUMMARY | ~2019-04-25 | XMS | Encounter Summary ---
Demographics + + + | Address | [address] | | | [place] [address] | + + + | Home Phone [...] [place] | | | | | [address] | | + + + + + Care Team Providers + +------+ + | Care Finish Production Manager Name | Role | Phone | + +------+ + | Cee Triana MD | PCP | Unavailable | + +------+ + Reason for Visit + + + | Reason | Comments | + + + | Follow-up visit | | + + + Benefits Check [...] | | | | | | | [place], [place] | | | | | | | [address] | | | | | | | Phone: | | | | | | | [phone] | | | | | | | Fax: | | | | | | | [phone] | +--------+--------+ + + + + Encounter Details +--------+---------+ + + + | Date | Type | Department | Care Team | Description | +--------+---------+ + + + | 12/03/ | Office | Digestive Health | Ayana Butler W, | Constipation | | 2012 | Visit | Center at [facility] [address] | MD [address] | (Primary Dx) | | | | [address] | [place], [place] | | | | | Mailcode: Center | [address] | | | | | for Health and | [phone] | | | | | Healing, [address] | | | | | | [place], [place] | | | | | | [address] | | | | | | [phone] | | | +--------+---------+ + + + [...] + + + | Blood Pressure | 125/75 | 12/03/2012 11:07 AM | | | | | PDT | | + + + + + | Pulse | 100 | 12/03/2012 11:07 AM | | | | | PDT | | + + + + + | Temperature | 36.6 C (97.8 F) | 12/03/2012 11:07 AM | | | | | PDT | | + + + + + | Respiratory Rate | 16 | 12/03/2012 11:07 AM | | | | | PDT [...] encounter Progress Notes Ayana Butler MD - 12/03/2012 12:03 PM PDT12/03/2012 [facility] Surgery follow up visit Attending Ayana Butler MD ID: Edgar Marquez is a 47 yo man status post VHR 07/2012 with postoperative infected seroma formation s/p IR drainage 08/2012 who subsequently re-accumulated a seroma which he la nced himself and had formally I&D'd in our clinic. Cultures taken at that time were negativ e. At his last visit, he complained of fatigue, low grade temperatures and nausea. He als o complained of continued drainage from his wound. He notes a small bulge of skin at the up per left side of his abdomen. Today he feels his wound is healing, without erythema. No feve rs or vomiting, +nausea, +constipation. He has undergone CT to evaluate for continued undra ined collection or recurrent hernia this morning. He is frustrated that he can no longer re ceive many medications he needs due to insurance problems including Neurontin. Current medications: Aspirin 81 mg Oral tablet, Take 1 Tab by mouth once daily. CALCIUM CARBONATE (TUMS 500 ORAL), Take by mouth. cyclobenzaprine (FLEXERIL) 10 mg Oral tablet, Take 10 mg by mouth three times daily as need ed. Do not use longer than 2-3 weeks. docusate sodium (COLACE) 100 mg Oral capsule, Take 1 Cap by mouth two times daily. fluticasone-salmeterol 250-50 mcg/dose Inhalation Disk with Device, Inhale 1 Puff two times daily. hydrochlorothiazide 25 mg Oral tablet, Take 25 mg by mouth once daily. levothyroxine 25 mcg Oral tablet, Take 25 mcg by mouth before breakfast. LORazepam (ATIVAN) 2 mg Oral tablet, Take 2 mg by mouth every four hours as needed. metFORMIN 500 mg Oral tablet, Take 500 mg by mouth two times daily. Mometasone 110 mcg (30 doses) Inhalation Aerosol Powdr Breath Activated, Inhale. omeprazole (PRILOSEC) 20 mg Oral capsule,delayed release(DR/EC), Take 20 mg by mouth once d aily. polyethylene glycol (MIRALAX) 17 gram/dose Oral Powder, Take 17 g by mouth once daily. polyethylene glycol 17 gram/dose Oral Powder, Take 17 g by mouth two times daily. prochlorperazine 5 mg Oral tablet, Take 1 Tab by mouth every six hours as needed for nausea /vomiting. Max dose: 40 mg/day tiotropium 18 mcg Inhalation capsule, w/inhalation device, Inhale 18 mcg once daily. traMADol 50 mg Oral tablet, Take 50 mg by mouth every six hours as needed. Physical exam: BP 125/75 | Pulse 100 | Temp (Src) 36.6 C (97.8 F) (Oral) | RR 16 General appearance: healthy, alert, cooperative, very well appearing Lungs: breathing easily CV: RRR GI: large, soft, NTTP, well healed midline incision /x small 5mm opening with nu guaze that travels approximately 1cm inferiorly. Min drainage on dressing. Small bulge of skin that do es not change with valsalva at approx 2pm Imaging: CT ABDOMEN & PELVIS W CONTRAST: STUDY: CT ABDOMEN & PELVIS W CONTRAST 12/03/12 09:29:00 CLINICAL DATA: 47-year-old male with history of ventral hernia repair July 2012 complicated by seroma. COMPARISON: CT abdomen and pelvis, 10/20/2012. TECHNIQUE: Helical axial images are obtained through the abdomen and pelvis after uneventful administration of 100 mL Isovue intravenous contrast. FINDINGS: Lung bases are clear. ABDOMEN: 7-mm calcified granuloma at the hepatic dome is unchanged. Two subcentimeter hepatic dome hypodense CTs are unchanged from prior exam consistent with benign cysts versus hemangiomas. The liver is otherwise unremarkable. The gallbladder, biliary tree, pancreas, spleen, adrenal glands, and kidneys are without focal abnormality. The stomach and duodenum are unremarkable. Multiple small bowel loops remain adherence to the ventral abdominal hernia repair mesh with no evidence for bowel obstruction. Subcutaneous soft tissue fluid collection associated with the repair mesh seen on prior exam has nearly completely resolved. Remaining increased soft tissue density with areas of mild enhancement overlying the repair mesh is consistent with granulation tissue/scar. PELVIS: The bladder, prostate, and seminal vesicles are unremarkable. Mid transverse colon anastomosis is intact with no evidence for bowel obstruction. The rectum and colon are otherwise unremarkable. There is no pelvic lymphadenopathy. There is no free intraperitoneal fluid. Bones are intact with no suspicious focal abnormality. IMPRESSION: Near complete interval resolution of fluid collection associated with ventral hernia repair mesh. Assessment: The patient is a 47 yo man s/p open VHR with biological mesh healing well follo wing I&D of recurrent PO seroma. Plan: Dressing changed today in clinic. Continue current wound care. Anticipate healing without further complication with current r egimen. Return or call for worsening drainage, fevers or any other concern. Ayana Butler MD Turbine Room Attendant Division of General and Gastrointestinal Surgery Department of Surgery documented in this en counter Plan of Treatment +--------+ + + + + | Date | Type | Specialty | Care Team | Description | +--------+ + + + + | 04/29/ | Diagnostic | Ip Technology Transactions Attorney | Marce Meyer | | | 2018 | Visit | | Finn, Eve [address] | | | | | | [address] | | | | | | [place], [place] | | | | | | [address] | | +--------+ + + + + documented as of this encounter Visit Diagnoses + + | Diagnosis | + + | Constipation - Primary | + + documented in this encounter"
--- OUTSIDE RECORDS SUMMARY | ~2019-04-25 | XMS | Encounter Summary ---
Demographics + + + | Address | [address] | | | [place] [address] | + + + | Home Phone [...] [place] | | | | | [address] | | + + + + + Care Team Providers + +------+ + | Care Electrician Elevator Maintenance Name | Role | Phone | + +------+ + | Jaison Chávez MD | PCP | | + +------+ + Encounter Details +--------+ + + + + | Date | Type | Department | Care Team | Description | +--------+ + + + + | 02/07/ | Results | NON-[facility] | Tobias Eli, | | | 2009 | Only | Department | [address] | | | | | [place] | | | | | | [address] | | | | | | [phone] | | | | | | | [...] + | 04/29/ | Diagnostic | Clinical Research Physician | Marce Meyer | | | 2019 | Visit | | Eve Briseno [address] [facility] | | | | | | [address] | | | | | | [place], [place] | | | | | | [address] | | +--------+ + + + + documented as of this encounter Procedures + +--------+ + + + | Procedure Name | Priori | Date/Time | Associated Diagnosis | Comments | | | ty | | | | + +--------+ + + + | CBC W/DIFF, REFLEX | Routin | 02/07/2010 | | Results for this | | | e | 11:47 AM | | procedure are in the | | | | PDT | | results section. | + +--------+ + + + | COMPLETE METABOLIC | Routin | 02/07/2010 | | Results for this | | SET | e | 11:47 AM | | procedure are in the | | (NA,K,CL,CO2,BUN,CRE | | PDT | | results section. | | AT,GLUC,CA,AST,ALT,B | | | | | | TERRY TOTAL,ALK | | | | | | PHOS,ALB,PROT TOTAL) | | | | | + +--------+ + + + documented in this encounter Results CBC W/DIFF, REFLEX (02/07/2010 11:47 AM PDT) + + + + + + | Component | Value | Ref Range | Performed | Pathologist | | | | | At | Signature | + + + + + + | WHITE BLOOD | 11.4 (H) | 4.3 - 11.0 X10 | [...] + + + | RED BLOOD | 4.79 | 4.7 - 6.1 X10 | [facility] | | | CELL COUNT | | 6/uL | A MEDICAL | | | | | | CENTER | | + + + + + + | HEMATOCRIT | 43.9 | 40.0 - 54.0 % | [facility] | | | | | | A MEDICAL | | | | | | CENTER | | + + + + + + | MCV | 91.6 | 82 - 100 fl | [facility] | | | | | | A MEDICAL | | | | | | CENTER | | + + + + + + | MCH | 31.5 | 28.0 - 32.0 pg | [facility] [...] + + + + | RDW | 12.8 | 12 - 15 fL | [facility] | | | | | | A MEDICAL | | | | | | CENTER | | + + + + + + | PLATELET | 200 | 150 - 450 X10 3 | [...] + + + + | NEUTROPHIL | 80.2 (H) | 40 - 80 % | [facility] | | | % | | | A MEDICAL | | | | | | CENTER | | + + + + + + | LYMPHOCYTE | 10.0 (L) | 20 - 50 % | [facility] | | | % | | | A MEDICAL | | | | | | CENTER | | + + + + + + | EOS % | 0.4 | 0 - 5 % | [facility] | | | | | | A MEDICAL | | | | | | CENTER | | + + + + + + | BASO % | 3.2 (H) | 0 - 1 % | [...] + + + | BANDS % | TEAM FACILITATOR | 0 - 7 % | [facility] [...] + + | [facility] | [address] | [place] [address] | | | MEDICAL CENTER | Streets | | | + + + + + COMPLETE METABOLIC SET (NA,K,CL,CO2,BUN,CREAT,GLUC,CA,AST,ALT,BILI TOTAL,ALK PHOS,ALB,PROT TOTAL) (02/07/2010 11:47 AM PDT) + +---------+ + + + | Component | Value | Ref Range | Performed | Pathologist | | | | | At | Signature | + +---------+ + + + | SODIUM, | 138 | 137 - 146 MEQ/L | [facility] | | | PLASMA | | | A MEDICAL | | | (LAB) | | | CENTER | | + +---------+ + + + | POTASSIUM, | 3.7 | 3.5 - 5.2 MEQ/L | [facility] | | | PLASMA | | | A MEDICAL | | | (LAB) | | | CENTER | | + +---------+ + + + | CO2 | 23 [...] +---------+ + + + | GLUCOSE, | 136 (H) | 70 - 105 MG/DL | [...] +---------+ + + + | CREATININE | 1.11 | 0.9 - 1.3 MG/DL | [facility] | | | PLASMA | | | A MEDICAL | | | (LAB) | | | CENTER | | + +---------+ + + + | BUN/CREATIN | 17 | 6 - 20 RATIO | [facility] | | | INE RATIO | | | A MEDICAL | | | | | | CENTER | | + +---------+ + + + | CALCIUM, | 10.2 | 8.5 - 10.8 | [facility] | | | PLASMA | | MG/DL | A MEDICAL | | | (LAB) | | | CENTER | | + +---------+ + + + | AMYLASE,CRISS | 57 | 20 - 113 U/L | [facility] | | | SMA | | | A MEDICAL | | | | | | CENTER | | + +---------+ + + + | AST(SGOT) | 46 (H) | 10 - 41 U/L | [facility] | | | | | | A MEDICAL | | | | | | CENTER | | + +---------+ + + + | ALT (SGPT) | 41 | 7 - 51 U/L | [facility] | | | | | | A MEDICAL | | | | | | CENTER | | + +---------+ + + + | ALK PHOS | 96 | 40 - 180 U/L | [facility] | | | | | | A MEDICAL | | | | | | CENTER | | + +---------+ + + + | TOTAL | 8.7 (H) | 6.7 - 8.5 G/DL | [facility] | | | PROTEIN, | | | A MEDICAL | | | PLASMA | | | CENTER | | | (LAB) | | | | | + +---------+ + + + | ALBUMIN, | 5.4 (H) | 3.5 - 5.0 G/DL | [facility] | | | PLASMA | | | A MEDICAL | | | (LAB) | | | CENTER | | + +---------+ + + + | BILIRUBIN | 0.8 | 0.2 - 1.6 MG/DL | [facility] | | | TOTAL | | | A MEDICAL | | | | | | CENTER | | + +---------+ + + + | LIPASE | 27 | 5 - 57 U/L | [facility] [...] + + + + + | [facility] | [address] | [place] [address] | | | [facility] | [facility] | | | + + + + + documented in this encounter Visit Diagnoses Not on filedocumented in this encounter"
--- OUTSIDE RECORDS SUMMARY | ~2019-04-25 | XMS | Encounter Summary ---
Demographics + + + | Address | [address] | | | [place] [address] | + + + | Home Phone [...] [place] | | | | | [address] | | + + + + + Care Team Providers + +------+ + | Care Dispensing Operator Name | Role | Phone | + +------+ + | Jaison Chváez MD | PCP | | + +------+ [...] get his lungs | | | | [place], [place] | | cleared up first, | | | | [address] | | etc. Would like a | | | | [phone] | | call back to discuss | [...] + | 04/29/ | Diagnostic | Production Control Technologist | Marce Meyer | | | 2019 | Visit | | Finn, Eve [address] | | | | | | [address] | | | | | | [place], [place] | | | | | | [address] | | +--------+ + + + + documented as of this encounter Visit Diagnoses Not on filedocumented in this encounter"
--- OUTSIDE RECORDS SUMMARY | ~2019-04-25 | XMS | Encounter Summary ---
Demographics + + + | Address | [address] | | | [place] [address] | + + + | Home Phone [...] [place] | | | | | [address] | | + + + + + Care Team Providers + +------+ + | Care Sales Executive Name | Role | Phone | + +------+ + | Deidre Card | PCP | | + +------+ + Encounter Details +--------+ + + + + | Date | Type | Department | Care Team | Description | +--------+ + + + + | 12/13/ | Office | [facility] | Note, [...] as of this encounter Progress Notes Interface, Deputy Register Of Deeds In - 03/29/2006 3:07 AM PDTCLINIC DATE: 12/13/2001 Mr. Marquez is postoperative tympanomastoidectomy. He states that he has had a very small amount of discharge. He had an extensive cholesteatoma removed. The ear was examined under the operating microscope with swab and was suctioned a small amount of debris. As the patient is about 3 months postoperative, it looks like the serous is completely cleared without granulation. He was powdered and was given powder to use for the next 3 weeks. The question now rises, since we controlled his infection, is whether or not he is a good candidate or candidate for a cochlear implant. He certainly has a hearing level which makes him a candidate. My plan is to see him in 4 weeks, and we will arrange evaluation for his cochlear implant. Aamir Chan M.D. TONY / MALORIE [id number] / [id number] / [id number] / Tdocumented in this encounter Plan of Treatment +--------+ + + + + | Date | Type | Specialty | Care Team | Description | +--------+ + + + + | 04/29/ | Diagnostic | Cable Installer Repairer | Marce Meyer | | | 2019 | Visit | | Eve Briseno [address] | | | | | | [address] | | | | | | [place], [place] | | | | | | [address] | | +--------+ + + + + documented as of this encounter Visit Diagnoses Not on filedocumented in this encounter"
--- OUTSIDE RECORDS SUMMARY | ~2019-04-25 | XMS | Encounter Summary ---
Demographics + + + | Address | [address] | | | [place] [address] | + + + | Home Phone [...] [place] | | | | | [address] | | + + + + + Care Team Providers + +------+ + | Care Stretch Machine Operator Name | Role | Phone [...] [place] | | | | | [address] | [address] | | | | | | [phone] | | | | | | | [...] Notes Jaison Rosario - 08/12/2008 5:31 AM [facility] [address] [place] [address] KISHOR VIVAR DATE OF CONSULTATION: 08/11/2008 REQUESTING PHYSICIAN(S): Ashley Echevarria M.D. REASON FOR CONSULTATION: Management of the patient's cardiopulmonary status. HISTORY OF PRESENT ILLNESS: This is a patient 2 days after abdominal mesh surgery who presents with increasing abdominal pain and leukocytosis. PRIMARY CARE PROVIDER: Marion Booker. LIVING SITUATION: Lives with his sister. PERSON TO NOTIFY: Mother, [place], . POWER OF ROLL INSPECTOR: Self, but mother is considering being the medical power of attorney general. CODE STATUS: Full code. HISTORY OF PRESENT [...] month for the new mask. KISHOR VIVAR [id number] ADMIT DATE: 08/11/08 17.Hyperlipidemia. 18.Allergic rhinitis. 19.COPD, which is very mild, disabilities caregiver [facility]. 20.Spirometry FEV1 2.44, which is 55% [...] coronary disease. Father CHF. Brother had an AK, unknown age. REVIEW OF SYSTEMS: Baseline cough, [...] air exchange. CARDIAC: Regular rhythm. KISHOR VIVAR [id number] ADMIT DATE: 08/11/08 ABDOMEN: Protuberant. Evidence of [...] cough, then could consider systemic steroids. 10.The disabilities caregiver at [facility] who saw the patient in March [...] IV proton pump inhibitor therapy. PATEL/KISHOR Pal [id number] ADMIT DATE: 08/11/08 /[id number] cc: Adelaida Martinez Electronically Signed MD CB Vaughan KEVIN R [id number] ADMIT DATE: 08/11/08 [facility] umented in this encounter Plan of Treatment +--------+ + + + + | Date | Type | Specialty | Care Team | Description | +--------+ + + + + | 04/29/ | Diagnostic | Blocker And Polisher Gold Wheel | Marce Meyer | | | 2019 | Visit | | Finn, Eve [address] [facility] | | | | | | [address] | | | | | | [place], [place] | | | | | | [address] | | +--------+ + + + + documented as of this encounter Visit Diagnoses Not on filedocumented in this encounter
--- OUTSIDE RECORDS SUMMARY | ~2019-04-25 | XMS | Encounter Summary ---
Demographics + + + | Address | [address] | | | [place] [address] | + + + | Home Phone [...] [place] | | | | | [address] | | + + + + + Care Team Providers + +------+ + | Care Dedicated Truck Driver Name | Role | Phone | + +------+ + | Cee Triana MD | PCP | Unavailable | + +------+ + Encounter Details +--------+ + + + + | Date | Type | Department | Care Team | Description | +--------+ + + + + | 08/30/ | Telephone | Digestive Health | Ayana Butler W, | | | 2012 | | [place] at [facility] | [address] | | | | | [address] [place] | [facility] [place] | | | | | Mailcode: [place] | [address] | | | | | for Health and | [phone] | | | | | [facility], [facility] [address] | | | | | | [place], [place] | | | | | | [address] | | | | | | [phone] | | | +--------+ + + + [...] + + | 04/29/ | Diagnostic | Lan Engineer | Marce Meyer | | | 2019 | Visit | | Eve Briseno [address] [place] [address] | | | | | | [address] | | | | | | [place] | | | | | | [address] | | +--------+ + + + + documented as of this encounter Visit Diagnoses Not on filedocumented in this encounter"
--- OUTSIDE RECORDS SUMMARY | ~2019-04-25 | XMS | Encounter Summary ---
Demographics + + + | Address | [address] | | | [place] [address] | + + + | Home Phone [...] [place] | | | | | [address] | | + + + + + Care Team Providers + +------+ + | Care High School Art Teacher Name | Role | Phone | [...] | | | | | Hospital | [facility] | | | | | | [address] Mailcode: | | | | | | Theodora Adams | [facility] | | | | | | White | Physician's | | | | | | [address] | [address] | | | | | | [address] | [place], [place] | | | | | | Phone: | [address] | | | | | | [phone] | Phone: | | | | | | Fax: | [phone] | | | | | | [phone] | Fax: | | | | | | | [phone] | +--------+--------+ + + + + Encounter Details +--------+---------+ + + + | Date | Type | Department | Care Team | Description | +--------+---------+ + + + | 03/28/ | Office | Pulmonary & | Urvashi Fox, | Tobacco Use | | 2007 | Visit | Critical Care | [facility] & | Disorder; Bipolar | | | | Medicine at [facility] | Affective Disorder | | | | Physicians Chris | [address] | (HCC); SUSAN | | | | [address] [facility] [address] | [address] [place], | (Obstructive Sleep | | | | [address] Mailcode: | [place] [address] | Apnea); COPD | | | | [facility] Physician's | | | | | | [address] | | | | | | [place], [place] | | | | | | [address] | | | | | | [phone] | | | +--------+---------+ + + + [...] given as he will be followed in [place]. Daniel solo signed by Margarito Oates at 03/29/2008 1:44 PM PDTUrvashi Fox - 03/28/2008 12:23 PM PDT Edgar Marquez is a 42 y.o. male referred by CYNTHIA Frank from [facility] in (fax [phone]) regarding COPD vs. Asthma and possible sleep apnea. He has been seen in the past by Dr. Warren Ivan of [place], [place] for these issues; and would like t o continue to see a costume director for his pulmonary issues. Problem List: 1. [...] as well. URVASHI FOX MD PULMONARY FACULTY [address] [place] [address] [address] documented i n this encounter Plan of Treatment +--------+ + + + + | Date | Type | Specialty | Care Team | Description | +--------+ + + + + | 04/29/ | Diagnostic | Home Connect Lpn | Marce Meyer | | | 2018 | Visit | | Eve Briseno [address] [facility] | | | | | | [address] | | | | | | [place], [place] | | | | | | [address] | | +--------+ + + + + [...]
--- OUTSIDE RECORDS SUMMARY | ~2019-04-25 | XMS | Encounter Summary ---
Demographics + + + | Address | [address] | | | [place] [address] | + + + | Home Phone [...] [place] | | | | | [address] | | + + + + + Care Team Providers + +------+ + | Care Registered Respiratory Technician Name | Role | Phone | + +------+ + | Jaison Chávez MD | PCP | | + +------+ + Encounter Details +--------+ + + + + | Date | Type | Department | Care Team | Description | +--------+ + + + + | 01/09/ | Documentati | Otolaryngology | Pascual Pace, | | | 2015 | on | Audiology Services | STEPHANIE Sewell [address] | | | | | at [facility] [address] | [address] [facility] | | | | | [address] | [place], [place] | | | | | Mailcode: PV01 | [address] | | | | | [facility] | | | | | | [place], [place] | | | | | | [address] | | | | | | [phone] | | | +--------+ + + + [...] + + | 04/29/ | Diagnostic | Diamond Saw Operator | Marce Meyer | | | 2019 | Visit | | Eve Briseno [address] | | | | | | [address] | | | | | | [place], [place] | | | | | | [address] | | +--------+ + + + + documented as of this encounter Visit Diagnoses Not on filedocumented in this encounter"
--- OUTSIDE RECORDS SUMMARY | ~2019-04-25 | XMS | Encounter Summary ---
Demographics + + + | Address | [address] | | | [place] [address] | + + + | Home Phone [...] [place] | | | | | [address] | | + + + + + Care Team Providers + +------+ + | Care Nut Former Name | Role | Phone | + [...] Recurrent | Ayana Jovel MD | s [address] | | | | | ventral | [address] | | | | | hernia | Ave | [address] | | | | | Procedures | [place], [place] | Mailcode: | | | | | CT ABDOMEN | [address] | [address] [facility] | | | | | AND PELVIS | Phone: | Hospital | | | | | WWO IV | [phone] | [place], [place] | | | | | CONTRAST ID | Fax: | [address] | | | | | CT ABD&PELV | [phone] | Phone: | | | | | 1+ | | [phone] | | | | | SECTION/REGN | | Fax: | | | | | S | | [phone] | +--------+--------+ + + + + Encounter Details +--------+ + + + + | Date | Type | Department | Care Team | Description | +--------+ + + + + | 06/04/ | Hospital | Radiology/Imaging | | | | 2015 | Encounter | Lab at [facility] [address] | | | | | | [address] Mailcode: | | | | | | [facility] | | | | | | Health and Healing, | | | | | | Building 1, 3rd | | | | | | Floor [place], [place] | | | | | | [address] | | | | | | [phone] | | | +--------+ + + + [...] + + | 04/29/ | Diagnostic | Drywall Metal Stud Worker | Marce Meyer | | | 2019 | Visit | | Eve Briseno [address] [facility] | | | | | | [address] | | | | | | [place] | | | | | | [address] | | +--------+ + + + + [...] + + | MARKELL DARLING | [address] [facility] | [place] [address] | | | OF CARE TESTS | | | | + + + + + documented in this encounter Visit Diagnoses + + | Diagnosis | + + | Recurrent ventral hernia Incisional hernia without mention of obstruction or gangrene | + + documented in this encounter"
--- OUTSIDE RECORDS SUMMARY | ~2019-04-25 | XMS | Encounter Summary ---
Demographics + + + | Address | [address] | | | [place] [address] | + + + | Home Phone [...] [place] | | | | | [address] | | + + + + + Care Team Providers + +------+ + | Care Fish Grader Name | Role | Phone | + [...] + + + + | 08/29/ | Telephone | Preoperative | Cindy Chávez | Pre-op evaluation | | 2012 | | Medicine Clinic at | A, GIS ADMINISTRATOR [address] [facility] | | | | | [facility] 4th Floor [address] | | | | | [address] | [place], [place] | | | | | Mailcode: CH4S | [address] | | | | | [facility] | [phone] | | | | | and Healing, | | | | | | Building 1,4th Floor | | | | | | [place], [place] | | | | | | [address] | | | | | | [phone] | | | +--------+ + + + [...] + + | 04/29/ | Diagnostic | Loader Operator | Marce Meyer | | | 2019 | Visit | | Eve Briseno [address] [facility] | | | | | | [address] | | | | | | [place] | | | | | | [address] | | +--------+ + + + + documented as of this encounter Visit Diagnoses Not on filedocumented in this encounter"
--- OUTSIDE RECORDS SUMMARY | ~2019-04-25 | XMS | Encounter Summary ---
Demographics + + + | Address | [address] | | | [place] [address] | + + + | Home Phone [...] [place] | | | | | [address] | | + + + + + Care Team Providers + +------+ + | Care Transition Advisor Name | Role | Phone | + +------+ + | Cee Triana MD | PCP | Unavailable | + +------+ + Encounter Details +--------+------+ + + + | Date | Type | Department | Care Team | Description | +--------+------+ + + + | 10/06/ | Lab | Laboratory at [facility] | | Abdominal wall fluid | | 2012 | | [address] | | collections | | | | [place], [place] | | | | | | [address] | | | | | | [phone] | | | +--------+------+ + + + [...] + + | 04/29/ | Diagnostic | Rental Car Ferry Driver | Marce Meyer | | | 2019 | Visit | | K, AuD [address] [facility] | | | | | | [address] | | | | | | [place], [place] | | | | | | [address] | | +--------+ + + + + [...] [facility] | [address] | [place] [address] | | | SERVICES, CORE | [address] [...] | | | LABORATORY | | | JAPANESE | | | SERVICES, | | | [...] [facility] | [address] | [place] [address] | | | SERVICES, CORE | [address] | | | + + + + + documented in this encounter Visit Diagnoses + + | Diagnosis | + + | Abdominal wall fluid collections Other ascites | + + documented in this encounter"
--- OUTSIDE RECORDS SUMMARY | ~2019-04-25 | XMS | Encounter Summary ---
Demographics + + + | Address | [address] | | | [place] [address] | + + + | Home Phone [...] [place] | | | | | [address] | | + + + + + Care Team Providers + +------+ + | Care Senior Energy Analyst Name | Role | Phone | + +------+ + | Sergo Leigh MD | PCP | Unavailable | + +------+ + Reason for Visit + + + | Reason | Comments | + + + | Hearing loss | Patient is having major drainage, pain and itching for a while. | | | -Has CI since 2003 | + + + Encounter Details +--------+ + + + + | Date | Type | Department | Care Team | Description | +--------+ + + + + | 11/11/ | Telephone | Otolaryngology | Jose Franco, | Hearing loss | | 2010 | | Otology Services at | [address] | (Patient is having | | | | [facility] [address] | [address] | major drainage, pain | | | | [address] | [place] [address] | and itching for a | | | | Mailcode: PV01 | [phone] | while. -Has CI since | | | | [facility] | (Fax) | 2003) | | | | [place], [place] | | | | | | [address] | | | | | | [phone] | | | +--------+ + + + [...] + | 04/29/ | Diagnostic | Senior Trial Attorney | Marce Meyer | | | 2018 | Visit | | Eve Briseno [address] | | | | | | [address] | | | | | | [place], [place] | | | | | | [address] | | +--------+ + + + + documented as of this encounter Visit Diagnoses Not on filedocumented in this encounter"
--- OUTSIDE RECORDS SUMMARY | ~2019-04-25 | XMS | Encounter Summary ---
Demographics + + + | Address | [address] | | | [place] [address] | + + + | Home Phone [...] [place] | | | | | [address] | | + + + + + Care Team Providers + +------+ + | Care Financial Assistant Name | Role | Phone | [...] | | recurrent | [place] | [place], [place] | | | | | ventral | [place] | [address] | | | | | hernia | [address] | Phone: | | | | | | Phone: | [phone] | | | | | | [phone] | Fax: | | | | | | Fax: | [phone] | | | | | | [phone] | | +--------+--------+ + + + + Encounter Details +--------+---------+ + + + | Date | Type | Department | Care Team | Description | +--------+---------+ + + + | 06/04/ | Office | Digestive Health | Ray Greene, | Recurrent ventral | | 2016 | Visit | [place] [facility] [address] | MD [address] | hernia (Primary Dx) | | | | [address] | [place], [place] | | | | | Mailcode: [place] | [address] | | | | | for Health and | [phone] | | | | | [facility] 2 | | | | | | [place], [place] | | | | | | [address] | | | | | | [phone] | | | +--------+---------+ + + + [...] the patient was noted to have a stateless-cheese midline abdominal wall hernia defect and a [...] Past Medical History Diagnosis Date Heart attack ([facility]) 2007 he was started on aspirin Hypertension Other and unspecified hyperlipidemia Chronic airway obstruction, not elsewhere classified ([facility]) PFTs 12/18/2011 FVC 5.19/99%, FEV1 2.82/69%, FEV1/FVC [...] hearing loss COPD (chronic obstructive pulmonary disease) ([facility]) oxygen dependent Unspecified asthma(493.90) PAST SURGICAL HISTORY: [...] Take by mouth once daily. magnesium hydroxide (Jack in the Box MILK OF Optoro) 400 mg/5 mL Oral Suspension, Take 30 [...] for optimization of COPD with patient's home x ray physician, Dr. uHa Garcia, [facility] the patient said he would contact today. - Encouraged 10-15lb weight loss prior to consideration of repair. - RTC in 3 months to consider laparoscopic vs. Open repair of epigastric and possible RLQ s tomal site hernia The patient was seen and discussed with Dr. Ray Greene, who agrees. Shane Christensen MD, MS Minimally Invasive Surgery Fellow [facility], General Surgery P: [phone] Ray Magallon MD - 06/04/2016 2:00 PM PST ATTENDING NOTE I saw and evaluated the patient. I agree with the findings and the plan of care as jamir martino in the fellow's note. Ray Greene MD, [facility] RAY GREENE MD [facility] 6TH FLOOR [address] Mailcode: [place] [address] documented in this en counter Plan of Treatment +--------+ + + + + | Date | Type | Specialty | Care Team | Description | +--------+ + + + + | 04/29/ | Diagnostic | Regional Safety Manager | Marce Meyer | | | 2018 | Visit | | Eve Briseno [address] | | | | | | [address] | | | | | | [place], [place] | | | | | | [address] | | +--------+ + + + + documented as of this encounter Visit Diagnoses + + | Diagnosis | + + | Recurrent ventral hernia - Primary Incisional hernia without mention of obstruction | | or gangrene | + + documented in this encounter
--- OUTSIDE RECORDS SUMMARY | ~2019-04-25 | XMS | Encounter Summary ---
Demographics + + + | Address | [address] | | | [place] [address] | + + + | Home Phone [...] [place] | | | | | [address] | | + + + + + Care Team Providers + +------+ + | Care Truck Driver Heavy Name | Role | Phone | + [...] | | | | | mastoid(385. | [place], [place] | [address] [facility] | | | | | 33) | [address] | Hospital | | | | | Procedures | | [place], [place] | | | | | [place] | | [address] | | | | | BENIGN | | Phone: | | | | | DISEASE WO | | [phone] | | | | | | | Fax: | | | | | | | [phone] | +--------+--------+ + + + + Diagnostic Testing (Routine) +--------+--------+ + + + + | Status | Reason | Specialty | Diagnoses / | Referred By | Referred To | | | | | Procedures | Contact | Contact | +--------+--------+ + + + + | Closed | | Radiology | Diagnoses | Dimitrios, | Rad Ct Scan | | | | | | Willie Valente MD | s [address] | | | | | [place] | [address] | [address] | | | | | a of middle | [address] | | | | | ear and | [address] | Mailcode: | | | | | mastoid(385. | [place], [place] | [address] [facility] | | | | | 33) | [address] | Hospital | | | | | Procedures | | [place], [place] | | | | | [address] [place] | | [address] | | | | | BENIGN | | Phone: | | | | | DISEASE WO | | [phone] | | | | | | | Fax: | | | | | | | [phone] | +--------+--------+ + + + + Reason [...] | | | | | mastoid(385. | [place], [place] | [address] [facility] | | | | | 33) | [address] | Hospital | | | | | Procedures | | [place], [place] | | | | | [address] [place] | | [address] | | | | | BENIGN | | Phone: | | | | | DISEASE WO | | [phone] | | | | | | | Fax: | | | | | | | [phone] | +--------+--------+ + + + + Encounter Details +--------+ + + + + | Date | Type | Department | Care Team | Description | +--------+ + + + + | 12/03/ | Hospital | Radiology/Imaging | | | | 2012 | Encounter | Lab at [facility] [address] | | | | | | [address] Mailcode: | | | | | | [facility] | | | | | | Health and Healing, | | | | | | [place] [address], [facility] | | | | | | Floor [place], [place] | | | | | | [address] | | | | | | [phone] | | | +--------+ + + + [...] + | 04/29/ | Diagnostic | Senior Technical Program Manager | Marce Meyer | | | 2019 | Visit | | Finn, AuD [address] [facility] | | | | | | [address] | | | | | | [place], [place] | | | | | | [address] | | +--------+ + + + + [...] | | | | | | [facility] 12/03/2012 | | | | | | [...]
--- OUTSIDE RECORDS SUMMARY | ~2019-04-25 | XMS | Encounter Summary ---
Demographics + + + | Address | [address] | | | [place] [address] | + + + | Home Phone [...] [place] | | | | | [address] | | + + + + + Care Team Providers + +------+ + | Care House Coordinator Name | Role | Phone | [...] | 2012 | | Center at [facility] [address] | [address] | | | | | [place] | [facility] [place] | | | | | Mailcode: [place] | [address] | | | | | for Health and | [phone] | | | | | [facility], [facility] 2 | | | | | | [place], [place] | | | | | | [address] | | | | | | [phone] | | | +--------+ + + + [...] + + | 04/29/ | Diagnostic | Program Schedule Clerk | Marce Meyer | | | 2019 | Visit | | Eve Briseno [address] [place] [address] | | | | | | [address] | | | | | | [place] | | | | | | [address] | | +--------+ + + + + documented as of this encounter Visit Diagnoses Not on filedocumented in this encounter"
--- OUTSIDE RECORDS SUMMARY | ~2019-04-25 | XMS | Encounter Summary ---
Demographics + + + | Address | [address] | | | [place] [address] | + + + | Home Phone [...] [place] | | | | | [address] | | + + + + + Care Team Providers + +------+ + | Care Long Chain Beamer Name | Role | Phone | + +------+ + | Kerri Chavarria NP | PCP | | + +------+ + Encounter Details +--------+ + + + + | Date | Type | Department | Care Team | Description | +--------+ + + + + | 06/01/ | Telephone | Digestive Health | Lalo Alcaraz, | | | 2011 | | [place] at [facility] [address] | [address] | | | | | [address] | [address] | | | | | Mailcode: [place] | [place], [place] | | | | | [facility] and | [address] | | | | | [place] [address] | [phone] | | | | | [place], [place] | | | | | | [address] | | | | | | [phone] | | | +--------+ + + + [...] | 04/29/ | Diagnostic | Director Of Quantitative Research | Marce Meyer | | | 2019 | Visit | | Eve Briseno [address] [place] [address] | | | | | | [address] | | | | | | [place] | | | | | | [address] | | +--------+ + + + + documented as of this encounter Visit Diagnoses Not on filedocumented in this encounter"
--- OUTSIDE RECORDS SUMMARY | ~2019-04-25 | XMS | Encounter Summary ---
Demographics + + + | Address | [address] | | | [place] [address] | + + + | Home Phone [...] [place] | | | | | [address] | | + + + + + Care Team Providers + +------+ + | Care Executive Kitchen Manager Name | Role | Phone | + +------+ + | Deidre Card | PCP | | + +------+ + Encounter Details +--------+ + + + + | Date | Type | Department | Care Team | Description | +--------+ + + + + | 11/08/ | Office | [facility] INTER[facility] | Note, [...] as of this encounter Progress Notes Interface, Hospital Admissions Officer In - 04/02/2006 6:18 AM PDTCLINIC DATE: 11/08/2001 OTOLARYNGOLOGY CLINIC Edgar is seen in followup following a 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 The right ear has now healed externally quite nicely, but the patient complains of significant mucopurulent discharge over the last several days from the right ear. Examination under microscope reveals some mucoid material which was suctioned free from around the canal. Deeper in his ear, there is a little more moisture, but otherwise the ear appears relatively clean and to have healed quite satisfactory. I cannot totally see around the corner in the mastoid cavity which is probably where the drainage is coming from. He was cleaned with [place] and touched with gentian thomas throughout the cavity and over the middle ear space. He is to use Floxin drops for 3 weeks, 3 times a day, 3 drops and then will return in one month for a recheck. He has had some significant dizziness over the course of the past week but demonstrates no nystagmus on my evaluation. I think the dizziness is either unrelated or is related to some irritation of the mucosa and the healing granulation. Aamir Chan M.D. TONY / MALORIE [id number] / [id number] / [id number] / [id number] signed by Interface, Hospital Admissions Officer In at 04/02/2006 6:18 AM PDTc umented in this encounter Plan of Treatment +--------+ + + + + | Date | Type | Specialty | Care Team | Description | +--------+ + + + + | 04/29/ | Diagnostic | Industrial Safety And Health Technician | Marce Meyer | | | 2019 | Visit | | Eve Briseno [address] [facility] | | | | | | [address] | | | | | | [place] | | | | | | [address] | | +--------+ + + + + documented as of this encounter Visit Diagnoses Not on filedocumented in this encounter"
--- OUTSIDE RECORDS SUMMARY | ~2019-04-25 | XMS | Encounter Summary ---
Demographics + + + | Address | [address] | | | [place] [address] | + + + | Home Phone [...] [place] | | | | | [address] | | + + + + + Care Team Providers + +------+ + | Care Sow Manager Name | Role | Phone | + +------+ + | Jaison Chávez MD | PCP | | + +------+ + Encounter Details +--------+ + + + + | Date | Type | Department | Care Team | Description | +--------+ + + + + | 09/17/ | Results | NON-[facility] EPIC | Omari [...] + + | 04/29/ | Diagnostic | Restuarant Crew Worker | Marce Meyer | | | 2019 | Visit | | Eve Briseno [address] | | | | | | [address] | | | | | | [place], [place] | | | | | | [address] | | +--------+ + + + + documented as of this encounter Procedures + +--------+ + + + | Procedure Name | Priori | Date/Time | Associated Diagnosis | Comments | | | ty | | | | + +--------+ + + + | CBC WITH MANUAL | Routin | 09/17/2009 | | Results for this | | DIFFERENTIAL | e | 9:45 AM | | procedure are in the | | | | PST | | results section. | + +--------+ + + + | COMPLETE METABOLIC | Routin | 09/17/2009 | | Results for this | | SET | e | 9:45 AM | | procedure are in the | | (NA,K,CL,CO2,BUN,CRE | | PST | | results section. | | AT,GLUC,CA,AST,ALT,B | | | | | | TERRY TOTAL,ALK | | | | | | PHOS,ALB,PROT TOTAL) | | | | | + +--------+ + + + | C-REACTIVE PROTEIN | Routin | 09/17/2009 | | Results for this | | | e | 9:45 AM | | procedure are in the | | | | PST | | results section. | + +--------+ + + + documented in this encounter Results C-REACTIVE PROTEIN (09/17/2009 9:45 AM PST) + + + + + + | Component | Value | Ref Range | Performed | Pathologist | | | | | At | Signature | + + + + + + | C-REACTIVE | 0.89 (H)Comment: Test | <0.80 mg/dL | [facility] | | | PROTEIN | performed at [facility] | | [facility] | | | | [facility] | | [facility] | | | | [address] | | | | | | [place], | | | | | | [place] [address] | | | | | | : ASHLEY HORTON MD | | | | + + + + + + + + | Specimen | + + | | + + + + + + + | Performing | Address | City/State/Zipcode | Phone Number | | Organization | | | | + + + + + | [facility] | [address] | [place] [address] | [phone] | | [facility] | | | | + + + + + | [facility] | | | | | [facility] | | | | + + + + + CBC WITH MANUAL DIFFERENTIAL (09/17/2009 9:45 AM PST) + + + + + + | Component | Value | Ref Range | Performed | Pathologist | | | | | At | Signature | + + + + + + | WHITE BLOOD | 6.6 | 4.3 - 11.0 X10 | [facility] | | | CELL COUNT | | 3/ul | A MEDICAL | | | | | | CENTER | | + + + + + + | WBC, | HADOOP DEVELOPER | X10 3/uL | [facility] | | [...] + + + | RED BLOOD | 4.51 (L) | 4.7 - 6.1 X10 | [facility] | | | CELL COUNT | | 6/uL | A MEDICAL | | | | | | CENTER | | + + + + + + | HEMATOCRIT | 38.3 (L) | 40.0 - 54.0 % | [facility] | | | | | | A MEDICAL | | | | | | CENTER | | + + + + + + | MCV | 84.8 | 82 - 100 fl | [facility] | | | | | | A MEDICAL | | | | | | CENTER | | + + + + + + | MCH | 29.3 | 28.0 - 32.0 pg | [facility] | | | | | | A MEDICAL | | | | | | CENTER | | + + + + + + | MCHC | 34.5 | 32 - 36 g/dL | [facility] [...] + + + + | NEUTROPHIL | 75.1 | 40 - 80 % | [facility] | | | % | | | A MEDICAL | | | | | | CENTER | | + + + + + + | LYMPHOCYTE | 13.4 (L) | 20 - 50 % | [facility] | | | % | | | A MEDICAL | | | | | | CENTER | | + + + + + + | EOS % | 4.6 | 0 - 5 % | [facility] [...] + + + | MONOCYTE % | 6.6 | 2 - 10 % | [facility] | | | | | | A MEDICAL | | | | | | CENTER | | + + + + + + | BANDS % | HADOOP DEVELOPER | 0 - 7 % | [facility] | | | | | | A MEDICAL | | | | | | CENTER | | + + + + + + | NEUTRO % | 74 (H) | 40 - 70 % | [...] + + + + | MONOCYTE%, | 7 | 2 - 10 % | [facility] [...] + + + + | BASOPHIL%, | HADOOP DEVELOPER | 0 - 1 % | [facility] | | | MANUAL | | | A MEDICAL | | | | | | CENTER | | + + + + + + | REACTIVE | HADOOP DEVELOPER | 0.0 - 4.0 % | [facility] | | | LYMPHS % | | | A MEDICAL | | | | | | CENTER | | + + + + + + | BANDS % | HADOOP DEVELOPER | 0 - 7 % | [facility] | | | | | | A MEDICAL | | | | | | CENTER | | + + + + + + | METAMYELOCY | HADOOP DEVELOPER | 0 - 0 % | [facility] | | | BRANDON % | | | A MEDICAL | | | | | | CENTER | | + + + + + + | MYELOCYTES | HADOOP DEVELOPER | 0 - 0 % | [facility] | | | % | | | A MEDICAL | | | | | | CENTER | | + + + + + + | PROMYELOCYT | HADOOP DEVELOPER | 0 - 0 % | [facility] | | | ES % | | | A MEDICAL | | | | | | CENTER | | + + + + + + | BLASTS | HADOOP DEVELOPER | 0 - 0 % | [facility] [...] + + + + | NUCLEATED | HADOOP DEVELOPER | | [facility] | | | RBCS | | | A MEDICAL | | | | | | CENTER | | + + + + + + | GIANT PLT | HADOOP DEVELOPER | | [facility] | | | | [...] + | [facility] | And | [place] [address] | | | [facility] | Streets | | | + + + + + COMPLETE METABOLIC SET (NA,K,CL,CO2,BUN,CREAT,GLUC,CA,AST,ALT,BILI TOTAL,ALK PHOS,ALB,PROT TOTAL) (09/17/2009 9:45 AM PST) + + + + + [...] + + + + | POTASSIUM, | 4.0 [...] + + + + | GLUCOSE, | 110 (H) | 70 - 105 MG/DL | [...] + + + + | CREATININE | 0.58 (L) | 0.9 - 1.3 MG/DL | [facility] | | | PLASMA | | | A MEDICAL | | | (LAB) | | | CENTER | | + + + + + + | BUN/CREATIN | 24 [...] + + + | ALK PHOS | 84 | 40 - 180 U/L | [facility] [...] [facility] | [address] | [place] [address] | | | [facility] | [place] | | | + + + + + documented in this encounter Visit Diagnoses Not on filedocumented in this encounter"
--- OUTSIDE RECORDS SUMMARY | ~2019-04-25 | XMS | Encounter Summary ---
Demographics + + + | Address | [address] | | | [place] [address] | + + + | Home Phone [...] [place] | | | | | [address] | | + + + + + Care Team Providers + +------+ + | Care Chemical Engineering Professor Name | Role | Phone | + +------+ + | Maurice Zelaya MD | PCP | | + +------+ + Reason for Visit + + + | Reason | Comments | + + + | Appointment Question | | + + + Encounter Details +--------+ + + + + | Date | Type | Department | Care Team | Description | +--------+ + + + + | 08/18/ | Telephone | Digestive Health | Ayana Butler W, | Appointment Question | | 2017 | | Center at [facility] [address] | MD [address] | | | | | [address] | [place], [place] | | | | | Mailcode: [place] | [address] | | | | | for Health and | [phone] | | | | | [facility] [address] | | | | | | [place], [place] | | | | | | [address] | | | | | | [phone] | | | +--------+ + + + [...] + | 04/29/ | Diagnostic | Supervisor Stave Cutting | Marce Meyer | | | 2019 | Visit | | Eve Briseno [address] [facility] [address] | | | | | | [address] | | | | | | [facility] [place] | | | | | | [address] | | +--------+ + + + + documented as of this encounter Visit Diagnoses Not on filedocumented in this encounter"
--- OUTSIDE RECORDS SUMMARY | ~2019-04-25 | XMS | Encounter Summary ---
Demographics + + + | Address | [address] | | | [place] [address] | + + + | Home Phone [...] [place] | | | | | [address] | | + + + + + Care Team Providers + +------+ + | Care Appraiser Name | Role | Phone | + [...] | | Otology Services at | [address] | | | | | PPV [address] | [address] | | | | | [address] | [place] [address] | | | | | Mailcode: PV01 | [phone] | | | | | [facility] | (Fax) | | | | | [place], [place] | | | | | | [address] | | | | | | [phone] | | | +--------+ + + + [...] + | 04/29/ | Diagnostic | Coal Cager | Marce Meyer | | | 2019 | Visit | | Eve Briseno [address] | | | | | | [address] | | | | | | [place] | | | | | | [address] | | +--------+ + + + + documented as of this encounter Visit Diagnoses Not on filedocumented in this encounter"
--- OUTSIDE RECORDS SUMMARY | ~2019-04-25 | XMS | Encounter Summary ---
Demographics + + + | Address | [address] | | | [place] [address] | + + + | Home Phone [...] [place] | | | | | [address] | | + + + + + Care Team Providers + +------+ + | Care Clinic Scheduler Name | Role | Phone | + [...] | | | | | [place] [address] | | | | | | [phone] | | | | | | | [...] + | 04/29/ | Diagnostic | Sales Operations Consultant | Marce Meyer | | | 2019 | Visit | | Eve Briseno [address] | | | | | | [address] | | | | | | [place], [place] | | | | | | [address] | | +--------+ + + + + [...] | | DIAGNOSTICS | | | | [id number] | | -[place] | | | | [address] | | | | | | [place], | | | | | | [place] [id number] | | | | | | : ASHLEY HORTON MD | | | | + + + + + + + + | Specimen | + + | | + + + + + + + | Performing | Address | City/State/Zipcode | Phone Number | | Organization | | | | + + + + + | [facility] | [address] | [place] [address] | [phone] | | [facility] | | | | + + + [...] + + + | BANDS % | PAINT TRIMMER PIPE BOWLS | 0 - 7 % | [facility] [...] + + | [facility] | [address] | [place] [address] | | | [facility] | Streets | | | + [...] | ESTIMATED | >60.0 | >60 | [facility] | | | GFR | | | A MEDICAL | | | | | | CENTER | | + + + + + + | FASTING? | UNK | HR | [facility] | | | | | [...] | + + + + + | [facility] | | [place] [address] | | | [facility] | [facility] | | | + + + + + documented in this encounter Visit Diagnoses Not on filedocumented in this encounter"
--- OUTSIDE RECORDS SUMMARY | ~2019-04-25 | XMS | Encounter Summary ---
Demographics + + + | Address | [address] | | | [place] [address] | + + + | Home Phone [...] [place] | | | | | [address] | | + + + + + Care Team Providers + +------+ + | Care Natural Resources Professor Name | Role | Phone | [...] [place] | | | | | | [address] | | | | | | [phone] | | | | | | | [...] + + | 04/29/ | Diagnostic | Calender Wind Up Helper | Marce Meyer | | | 2019 | Visit | | Eve Briseno [address] [facility] | | | | | | [address] | | | | | | [place], [place] | | | | | | [address] | | +--------+ + + + + documented as of this encounter Procedures + +--------+ + + + | Procedure Name | Priori | Date/Time | Associated Diagnosis | Comments | | | ty | | | | + +--------+ + + + | ABDOMEN AND PELVIS | Routin | 10/30/2008 | | Results for this | | WITH [id number] | e | 6:36 PM | | [...] | Results for this | | CHEST 15[address] | e | 1:47 PM | | [...] this encounter Results ABDOMEN AND PELVIS WITH [id number] (10/30/2008 6:36 PM PDT) + + | [...] There are postoperative changes. | | | [address] | | + + + + + [...] or | | bowelobstruction. There are postoperative changes.[id number] | |is nonaneurysmal. Images of the lung bases show no consolidation. | |There are coronary artery calcifications. | |IMPRESSION: No evidence of abdominal or pelvic abscess or bowel | |obstruction. There are postoperative changes. | |[address] | + + + +---------+ + + [...] | + + + + + | [facility] | [address] | [place] [address] | | | [facility] | [place] | | | + + + + + ABDOMEN 2 VIEW PA CHEST 42152 (10/30/2008 1:47 PM PDT) + + | [...] | | obstruction or perforation is seen. #[id number] | | + + + + + [...] insize.CONCLUSIONS:No evidence of obstruction or perforation is seen.#[id number] | |the chest demonstrates the lungs to be clear and the heart normal in | |size. | |CONCLUSIONS: | |No evidence of obstruction or perforation is seen. | |#19923 | + + + +---------+ + + [...] + + + | BANDS % | DIRECT MARKETING ANALYST | 0 - 7 % | [...] + + + + | [facility] | And | [place] [address] | | | MEDICAL CENTER | Streets [...] (L) | 137 - 146 MEQ/L | [facility] | | | PLASMA | [...] | + + + + + | [facility] | And | [place] [address] | | | [facility] | [facility] | | | + + + + + documented in this encounter Visit Diagnoses Not on filedocumented in this encounter"
--- OUTSIDE RECORDS SUMMARY | ~2019-04-25 | XMS | Encounter Summary ---
Demographics + + + | Address | [address] | | | [place] [address] | + + + | Home Phone [...] [place] | | | | | [address] | | + + + + + Care Team Providers + +------+ + | Care Marketing Analytics Analyst Name | Role | Phone | + +------+ + | Deidre Card | PCP | | + +------+ + Encounter Details +--------+ + + + + | Date | Type | Department | Care Team | Description | +--------+ + + + + | 03/28/ | Hospital | Medicine | Tech, Pfl Adult | | | 2007 | Encounter | Specialties at [facility] | Clinic [address] | | | | | [address] | [facility] | | | | | Toya Spencer Mailcode: | [place] [address] | | | | | [id number] Physician's | | | | | | [address] | | | | | | [place], [place] | | | | | | [address] | | | | | | [phone] | | | +--------+ + + + + Social History + + + +--------+------+ | Tobacco Use | Types | Packs/Day | Years | Date | | | | | Used | | + + + +--------+------+ | Current Every Day | Cigarettes | 2.5 | | | | Smoker | | | | | + + + +--------+------+ + + | Comments: Pt smokes 2.5 packs of cigarettes per day x 2-3 years. Started smoking at age | | 8. | + + + + +---------+ + | Alcohol Use | Drinks/Week | oz/Week | Comments | + + +---------+ + | Not Asked | | | | + + +---------+ [...] + + | 04/29/ | Diagnostic | Shelver | Marce Meyer | | | 2019 | Visit | | Finn, Eve [address] | | | | | | [address] | | | | | | [place], [place] | | | | | | [address] | | +--------+ + + + + documented as of this encounter Procedures + +--------+ + + + | Procedure Name | Priori | Date/Time | Associated Diagnosis | Comments | | | ty | | | | + +--------+ + + + | ADULT PULMONARY | | 03/28/2008 | | Results for this | | FUNCTION | | 11:59 PM | | procedure are in the | | | | PDT | | results section. | + +--------+ + + + | PULMONARY FUNCTION | Routin | 03/28/2008 | | Results for this | | | e | 3:48 PM | | procedure are in the | | | | PDT | | results section. | + +--------+ + + + documented in this encounter Results ADULT PULMONARY FUNCTION (03/28/2008 11:59 PM PDT) + + + | Narrative | Performed At | + + + | | | + + + + + | Procedure Note | + + | Tania Martins - 04/19/2008 11:11 AM PDT | | | + + RESP CARE PULMONARY FUNCTION (03/28/2008 3:48 PM PDT) + + + + + + | Component | Value | Ref Range | Performed | Pathologist | | | | | At | Signature | + + + + + + | PULMONARY | Spirometry with | | [facility] | | | FUNCTION | bronchodilator was | | RESPIRATORY | | | | performed:Spirometry | | THERAPY | | | | results were the | | | | | | following:FVC=5.33FVC% | | | | | | lvnlnigrf=048TUX4=9.78FE | | | | | | V1% | | | | | | predicted=68FEV1/FVC=52F | | | | | | EF 25-75=1.04FEF 25-75% | | | | | | predicted=37PEF=5.92PEF% | | | | | | predicted=59Post | | | | | | bronchodilator | | | | | | spirometry was the | | | | | | following:FVC=5.92FVC% | | | | | | fcpsdfmrt=791NIH1=8.35FE | | | | | | V1% | | | | | | predicted=81FEV1/FVC=57F | | | | | | EF 25-75=1.67FEF 25-75% | | | | | | predicted=44PEF=6.29PEF% | | | | | | predicted=62FEV1% | | | | | | change post | | | | | | bronchodilator=20Patient | | | | | | has cough. Also becomes | | | | | | unsteady and "dizzy" | | | | | | with maximal | | | | | | breathingefforts. | | | | | | Patient refused politely | | | | | | after the post test | | | | | | stating he wasgetting | | | | | | very | | | | | | dizzy.Electronically | | | | | | Signed by: Tobias Owens, | | | | | | GERENTOLOGICAL PHYSIOTHERAPIST | | | | + + + + + + + + | Specimen | + + | | + + + + + | Narrative | Performed At | + + + | Ordered by an unspecified provider. | [facility] | | | RESPIRATORY | | | THERAPY | + + + + + + + + | Performing | Address | City/State/Zipcode | Phone Number | | Organization | | | | + + + + + | [facility] | [address] | [place], [place] | | | THERAPY | [address] | [address] | | + + + + + | [facility] | [address] | [facility] [place] | | | THERAPY | [facility] | [address] | | + + + + + documented in this encounter Visit Diagnoses Not on filedocumented in this encounter
--- OUTSIDE RECORDS SUMMARY | ~2019-04-25 | XMS | Encounter Summary ---
Demographics + + + | Address | [address] | | | [place] [address] | + + + | Home Phone [...] [place] | | | | | [address] | | + + + + + Care Team Providers + +------+ + | Care Twister Doffer Name | Role | Phone | + [...] | | | [address] | [place] [address] | and itching for a | | | | Mailcode: PV01 | [phone] | while. -Has CI since | | | | [facility] | (Fax) | 2003) | | | | [place], [place] | | | | | | [address] | | | | | | [phone] | | | +--------+ + + + [...] + + | 04/29/ | Diagnostic | Sticker Machine Operator | Marce Meyer | | | 2018 | Visit | | Eve Briseno [address] | | | | | | [address] | | | | | | [place], [place] | | | | | | [address] | | +--------+ + + + + documented as of this encounter Visit Diagnoses Not on filedocumented in this encounter"
--- OUTSIDE RECORDS SUMMARY | ~2019-04-25 | XMS | Encounter Summary ---
Demographics + + + | Address | [address] | | | [place] [address] | + + + | Home Phone [...] [place] | | | | | [address] | | + + + + + Care Team Providers + +------+ + | Care Practice Business Asst Name | Role | Phone | + +------+ + | Jaison Chávez MD | PCP | | + +------+ + Reason for Visit +--------+ + | Reason | Comments | +--------+ + | Other | Does not believe can make it to see [facility] -would like to keep SL | | | appt -pls call back to address | +--------+ + Encounter Details +--------+ + + + + | Date | Type | Department | Care Team | Description | +--------+ + + + + | 01/10/ | Telephone | Otolaryngology | Willie Plunkett, | Other (Does not | | 2013 | | Otology Services at | MD | believe can make it | | | | [facility] [address] | | to see W -would | | | | [address] | | like to keep SL appt | | | | Mailcode: PV01 | | -pls call back to | | | | Physician's Chris | | address) | | | | [place], [place] | | | | | | [address] | | | | | | [phone] | | | +--------+ + + + [...] + | 04/29/ | Diagnostic | Principal Technical Specialist | Marce Meyer | | | 2019 | Visit | | Eve Briseno [address] [facility] | | | | | | [address] | | | | | | [place] | | | | | | [address] | | +--------+ + + + + documented as of this encounter Visit Diagnoses Not on filedocumented in this encounter"
--- OUTSIDE RECORDS SUMMARY | ~2019-04-25 | XMS | Encounter Summary ---
Demographics + + + | Address | [address] | | | [place] [address] | + + + | Home Phone [...] [place] | | | | | [address] | | + + + + + Care Team Providers + +------+ + | Care Engraver Ornamental Design Name | Role | Phone | + +------+ + | Maurice Zelaya MD | PCP | | + +------+ + Encounter Details +--------+ + + + + | Date | Type | Department | Care Team | Description | +--------+ + + + + | 08/09/ | Procedure - | EP[facility] | Ashley Omalley MD | Operative Report | | 2008 | | E The | [facility] | | | | Transcribed | [place] | [facility] [address] | | | | | [address] | [address] | | | | | | [place] [address] | | | | | | [phone] | | | | | | | [...] + + | 04/29/ | Diagnostic | Scientific Research Manager | Marce Meyer | | | 2019 | Visit | | Eve Briseno [address] | | | | | | [address] | | | | | | [place], [place] | | | | | | [address] | | +--------+ + + + + documented as of this encounter Procedures + +--------+ + + + | Procedure Name | Priori | Date/Time | Associated Diagnosis | Comments | | | ty | | | | + +--------+ + + + | OPERATION RECORD | | 08/09/2008 | | Results for this | | | | 7:25 AM | | procedure are in the | | | | PST | | results section. | + +--------+ + + + documented in this encounter Results OPERATION RECORD (08/09/2008 7:25 AM PST) + + | Transcriptions | + + | MD Shahram, Ashley - 08/10/2008 3:45 PM [facility] | | REPORT OF [id number] [place] [address] [place] [address] | | EDGAR VIVAR RDATE OF OPERATION: 08/09/2008SURGEON: Ashley Echevarria, | | Saleem.ESTIMATING ENGINEER: Heath Jarquin M.D.PREOPERATIVE DIAGNOSIS: Abdominal pain and | | incarcerated umbilical and epigastrichernia.POSTOPERATIVE DIAGNOSIS: [place] cheese | | defects of the anterior abdominal wall andan area of thickening in the small bowel 40 cm | | distal to the ligament of TreitzPROCEDURE PERFORMED:1. Diagnostic laparoscopy.2. | | Reduction of incarcerated hernia.3. Repair of ventral hernia with composite Bard | | composite mesh.ESTIMATING ENGINEER: Sage Cam M.D.FINDINGS: The patient had a [place] cheese | | defect of incarceration which wasreduced. The small bowel was looped around the area. | | Upon running the smallbowel, there was an area that was slightly dilated mid jejunum and | | an area ofthickening 40 cm distal to ligament of Treitz. No other noted abnormalities | | withinthe small bowel, large bowel or other intra-abdominal organs visualized. | | Thepatient has multiple [place] cheese defect measuring total 10 x 13 cm. CompositeBard | | composite mesh was overlying the area, good placement and tackedcircumferentially.REASON | | FOR PROCEDURE: Patient is a 42-year-old gentleman who has suffered fromabdominal pain | | off and on, had an epigastric hernia that became incarcerated, wasnot able to be | | reduced, started flaring from occasional bouts of vomiting andsevere abdominal | | discomfort.PROCEDURE IN DETAIL: Full PAR conference was performed. Informed consent | | wasobtained. The patient understood the risks, benefits and alternatives ofprocedure. | | She would like to proceed with the procedure. After this wasperformed, the patient | | was brought back to the operating room, placed under generalanesthesia, placed in a | | supine position, prepped and draped in a sterile fashion.Right upper quadrant 10 mm port | | was placed to obtain pneumoperitoneum. This wasdone in Blanca fashion under direct | | visualization. The peritoneum was enteredbluntly. Once this port was then inserted, | | the pneumoperitoneum was insufflatedand the abdomen was visualized. It was immediately | | noted that there wasincarceration of hernia into the epigastric region, appeared to be | | multipledefects. Two additional 5-mm ports were placed in the right side, 1 in the | | midabdomen and 1 in the right lower quadrant. Using these ports placed laterally, | | wewill reduce the hernia. The area of small bowel was wrapped around this area andthis | | was decompressed. The entirety of the small bowel was then ran. Theabdomen was | | inspected. The patient was noted to have an area 40 cm distal to theligament of Treitz | | and this area that had been reduced was still slightly dilated.No other abnormalities of | | small bowel. No visible abnormalities of the largeHAEDGAR BROWN [id number] | | DATE:bowel, liver or spleen or stomach was visualized. After the | | diagnosticlaparoscopy was performed and reduction of hernia, we then proceeded to repair | | theventral hernia. Once the abnormal hernia was taken down, the area was inspected.A | | Bard composite mesh was inserted in the abdomen through a 10-mm trocar site andprior to | | being inserted in the abdomen with 4 sutures in the 4 sites and 1 in thecenter. Once it | | was inserted abdomen, the central suture was grasped and securedinto place. Once this | | was performed, the most superior suture was then graspedusing a small 11 blade scalpel | | and introducing the grasper in 2 separate fasciasites securing with 0 Vicryl suture on | | the mesh. This was done subsequently in the3 other places along the mesh. Once the | | mesh was secured in place, placement ofthe mesh, a central stitch was removed. The | | sutures were then tied down and thefascia was tacked circumferentially on the edge and | | the multiple places in thecenter of the mesh. During this time a left quadrant 5 mm | | port was placed tohelp close the placement of the tacks. Once this was completed, the | | abdomen wasreinspected. Hemostasis was confirmed and the mesh was inspected and | | visualizedand confirmed to be in excellent position. The ports were then removed. | | Thepneumoperitoneum was released. The right upper quadrant port was closed. | | Theanterior fascia was closed using 0 Vicryl suture stitch in a imtwav-do-ttyhlyjqobhi. | | The wounds were then cleaned and dried and closed using 4-0 Monocryl ininterrupted | | fashion. The skin was cleaned and dried and Steri-Strips were placedand sterile | | dressings. Drapes were removed. The patient was awakened andextubated without | | complications and transferred to the recovery. All sponge andsharp counts were correct. | | The patient tolerated procedure well withoutcomplications./MedQDD: 08/09/2008 | | 17:34:04DT: 08/10/2008 06:24:50Job #: | | [id number] | | | | | | Electronically | | Signed | | | | | | | | | | | | | | [address] KEVIN [id number] DATE: | |sites securing with 0 Vicryl suture on the mesh. This was done subsequently in the | |3 other places along the mesh. Once the mesh was secured in place, placement of | |the mesh, a central stitch was removed. The sutures were then tied down and the | |fascia was tacked circumferentially on the edge and the multiple places in the | |center of the mesh. During this time a left quadrant 5 mm port was placed to | |help close the placement of the tacks. Once this was completed, the abdomen was | |reinspected. Hemostasis was confirmed and the mesh was inspected and visualized | |and confirmed to be in excellent position. The ports were then removed. The | |pneumoperitoneum was released. The right upper quadrant port was closed. The | |anterior fascia was closed using 0 Vicryl suture stitch in a yaroqs-an-xqvmj | |fashion. The wounds were then cleaned and dried and closed using 4-0 Monocryl in | |interrupted fashion. The skin was cleaned and dried and Steri-Strips were placed | |and sterile dressings. Drapes were removed. The patient was awakened and | |extubated without complications and transferred to the recovery. All sponge and | |sharp counts were correct. The patient tolerated procedure well without | |complications. | | | | | | | |TITUS/Viraj | | | | | | /[id number] | | | | | | Electronically Signed | | | | | | | | Ashley Echevarria MD | | | | | | | | | | | | | | | | | | | | | | | | | | | | | | | | | | | | | | | | | | | |EDGAR VIVAR | |[id number] | |[id number] | |ADMIT DATE: | + + documented in this encounter Visit Diagnoses Not on filedocumented in this encounter"
--- OUTSIDE RECORDS SUMMARY | ~2019-04-25 | XMS | Encounter Summary ---
Demographics + + + | Address | [address] | | | [place] [address] | + + + | Home Phone [...] [place] | | | | | [address] | | + + + + + Care Team Providers + +------+ + | Care Hand Box Folder Name | Role | Phone | + +------+ + | Jaison Chávez MD | PCP | | + +------+ + Encounter Details +--------+ + + + + | Date | Type | Department | Care Team | Description | +--------+ + + + + | 04/04/ | Results | [facility] | Marcos Villanueva | | | 2007 | Only | Department | MD Lars [address] | | | | | | [facility] | | | | | | [place] [address] | | | | | | [phone] | | | | | | | [...] + + | 04/29/ | Diagnostic | Cut Off Machine Operator | Marce Meyer | | | 2019 | Visit | | Eve Briseno [address] [facility] | | | | | | [address] | | | | | | [place], [place] | | | | | | [address] | | +--------+ + + + + documented as of this encounter Procedures + +--------+ + + + | Procedure Name | Priori | Date/Time | Associated Diagnosis | Comments | | | ty | | | | + +--------+ + + + | H. PYLORI CLOTEST | Routin | 04/04/2008 | | Results for this | | | e | 9:40 AM | | procedure are in the | | | | PDT | | results section. | + +--------+ + + + documented in this encounter Results H. PYLORI CLOTEST (04/04/2008 9:40 AM PDT) + + + + + + | Component | Value | Ref Range | Performed | Pathologist | | | | | At | Signature | + + + + + + | CLOTEST | NEGATIVE | NEGATIVE | [facility] | | | INTERPRETAT | | | A MEDICAL | | | ION | | | CENTER | | + + + + + + | CLOTEST 20 | YELLOW:NEGATIVE | | [facility] | | | MIN READING | | | A MEDICAL | | | | | | CENTER | | + + + + + + | CLOTEST 1 | YELLOW:NEGATIVE | | [facility] | | | HR READING | | | A MEDICAL | | | | | | CENTER | | + + + + + + | CLOTEST 3 | YELLOW:NEGATIVE | | [facility] | | | HR READING | | | A MEDICAL | | | | | | CENTER | | + + + + + + | CLOTEST 24 | YELLOW:NEGATIVE | | [facility] | | | HR READING | | | A MEDICAL | | [...] + + | [facility] | [address] | [place] [address] | | | MEDICAL CENTER | Streets | | | + + + + + documented in this encounter Visit Diagnoses Not on filedocumented in this encounter"
--- OUTSIDE RECORDS SUMMARY | ~2019-04-25 | XMS | Encounter Summary ---
Demographics + + + | Address | [address] | | | [place] [address] | + + + | Home Phone [...] [place] | | | | | [address] | | + + + + + Care Team Providers + +------+ + | Care Debug Technician Name | Role | Phone | [...] + + | 04/29/ | Diagnostic | Standards Analyst | Marce Meyer | | | 2019 | Visit | | Eve Briseno [address] | | | | | | [address] | | | | | | [place], [place] | | | | | | [address] | | +--------+ + + + + [...] | 0.75Comment: Test | <0.80 mg/dL | [facility] | | | PROTEIN | performed at [facility] | | A MEDICAL | | | | DIAGNOSTICS-[id number] | | CENTER | | | | [address] | | | | | [address], | | | | | | [place] [address]Zxwkzjoo | | | | | | : [...] + + | [facility] | [address] | [place] [address] | | | MEDICAL CENTER | Streets [...] 7.6 | 4.3 - 11.0 X10 | [facility] | | | CELL COUNT | | 3/ul | A MEDICAL | | | | | | CENTER | | + + + + + + | WBC, | ROLL GRINDER | X10 3/uL | [facility] | | | ADJUSTED | | | A MEDICAL | | | | | | CENTER | | + + + + + + | HEMOGLOBIN | 13.9Comment: @PLEASE DO | 12.3 - 17.0 | [facility] | | | | A SPUN [...] + + + | BANDS % | ROLL GRINDER | 0 - 7 % | [facility] | | | | | | A MEDICAL | | | | | | CENTER | | + + + + + + | CBC | ERROR FLAGS -HEMATOLOGY | | [facility] | | | COMMENTS | INSTR. ROLL GRINDER | | A MEDICAL | | | | | | CENTER | | + + + + + + | CBC | DEFINITIVE FLAG Y | | [facility] | | | COMMENTS | | | A MEDICAL | | | | | | CENTER | | + + + + + + | CBC | SUSPECT FLAG ROLL GRINDER | | [facility] | | | COMMENTS [...] + + + + | BASOPHIL%, | ROLL GRINDER | 0 - 1 % | [facility] | | | MANUAL | | | A MEDICAL | | | | | | CENTER | | + + + + + + | REACTIVE | ROLL GRINDER | 0.0 - 4.0 % | [facility] | | | LYMPHS % | | | A MEDICAL | | | | | | CENTER | | + + + + + + | BANDS % | ROLL GRINDER | 0 - 7 % | [facility] | | | | | | A MEDICAL | | | | | | CENTER | | + + + + + + | METAMYELOCY | ROLL GRINDER | 0 - 0 % | [facility] | | | BRANDON % | | | A MEDICAL | | | | | | CENTER | | + + + + + + | MYELOCYTES | ROLL GRINDER | 0 - 0 % | [facility] | | | % | | | A MEDICAL | | | | | | CENTER | | + + + + + + | PROMYELOCYT | ROLL GRINDER | 0 - 0 % | [facility] | | | ES % | | | A MEDICAL | | | | | | CENTER | | + + + + + + | BLASTS | ROLL GRINDER | 0 - 0 % | [facility] [...] + + + + | RBC | ROLL GRINDER | NORMAL | [facility] | | | MORPHOLOGY | | | A MEDICAL | | | | | | CENTER | | + + + + + + | WBC | ROLL GRINDER | NORMAL | [facility] | | | MORPHOLOGY | | | A MEDICAL | | | | | | CENTER | | + + + + + + | PLATELET | ROLL GRINDER | NORMAL | [facility] | | | MORPHOLOGY | | | A MEDICAL | | | | | | CENTER | | + + + + + + | NUCLEATED | ROLL GRINDER | | [facility] | | | RBCS | | | A MEDICAL | | | | | | CENTER | | + + + + + + | GIANT PLT | ROLL GRINDER | | [facility] | | | | [...] | + + + + + | [facility] | [address] | [place] [address] | | | [facility] | Streets | | | [...] | [address] | [place] [address] | | | MEDICAL CENTER | Streets | | | + + + + + documented in this encounter Visit Diagnoses Not on filedocumented in this encounter"
--- OUTSIDE RECORDS SUMMARY | ~2019-04-25 | XMS | Encounter Summary ---
Demographics + + + | Address | [address] | | | [place] [address] | + + + | Home Phone [...] Margarito Owusu | ECON | [address] | | | | | [place] | | | | | [address] | | + + + + + Care Team Providers + +------+ + | Care Chute Feeder Name | Role | Phone | + +------+ + PCP | Unavailable | + +------+ + Encounter Details +--------+ + + + + | Date | Type | Department | Care Team | Description | +--------+ + + + + | 05/14/ | Office | | Note, Outpatient | [...] as of this encounter Progress Notes Interface, Bus Attendant In - 02/23/2005 8:01 AM PDT [id number] [facility] Date: 05/14/2004 Clinic: [facility] Mr. 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 Mr. Marquez was accompanied today by a friend. Today, we began with impedances, and all impedances were measured and were obtained within normal limits. This indicates that the electrodes has a full insertion. We used the neural response telemetry measurements which were obtained in the Operating Room on April 09, 2004. These neural response thresholds were used to create a TC offset map. I took measurements on one electrode to create this map. Upon turning Mr. Marquez on with the program, he reported to me that it was slightly muffled and garbled. I then shifted the frequencies slightly upward to increase the clarity and decrease the emphasis on the low frequencies. The patient reported this was clear and more comfortable. The patient was happy with this new basic map, it is in a sensitivity mode. This program #1 was placed in both programs parts 1 and 2. Today, we reviewed the basic use of the device and accessories. I also reviewed care and use of batteries. The patient is scheduled to return tomorrow for his second stimulation with Dr. Haroon Poe. Meka Murray M.A., C.C.C.-A. Cochlear Implant Postie Carlos / [id number] / [id number] / [id number] / [id number] documented i n this encounter Plan of Treatment +--------+ + + + + | Date | Type | Specialty | Care Team | Description | +--------+ + + + + | 04/29/ | Diagnostic | Postie | Marce Meyer | | | 2019 | Visit | | Eve Briseno [address] [facility] | | | | | | [address] | | | | | | [place] | | | | | | [address] | | +--------+ + + + + documented as of this encounter Visit Diagnoses Not on filedocumented in this encounter"
--- OUTSIDE RECORDS SUMMARY | ~2019-04-25 | XMS | Encounter Summary ---
Demographics + + + | Address | [address] | | | [place] [address] | + + + | Home Phone [...] [place] | | | | | [address] | | + + + + + Care Team Providers + +------+ + | Care Fire Chief Deputy Name | Role | Phone | + +------+ + | Cee Triana MD | PCP | Unavailable | + +------+ + Reason for Visit + + + | Reason | Comments | + + + | Refill Request | | + + + Encounter Details +--------+--------+ + + + | Date | Type | Department | Care Team | Description | +--------+--------+ + + + | 09/02/ | Refill | [facility] | Ayana Butler, | Refill Request | | 2012 | | [place] [address] | [address] | | | | | [address] | [place], [place] | | | | | Mailcode: [place] | [address] | | | | | [facility] and | [phone] | | | | | [facility] [address] | | | | | | [place], [place] | | | | | | [address] | | | | | | [phone] | | | +--------+--------+ + + + [...] + + | 04/29/ | Diagnostic | Parts Department Manager | Marce Meyer | | | 2019 | Visit | | Eve Briseno [address] [facility] | | | | | | [address] | | | | | | [place] | | | | | | [address] | | +--------+ + + + + documented as of this encounter Visit Diagnoses Not on filedocumented in this encounter"
--- OUTSIDE RECORDS SUMMARY | ~2019-04-25 | XMS | Encounter Summary ---
Demographics + + + | Address | [address] | | | [place] [address] | + + + | Home Phone | | + + + | Preferred Language | Unknown | + + + | Marital Status | Single | + + + | Restoration Affiliation | BAP | + + + [...] [place] | | | | | [address] | | + + + + + Care Team Providers + +------+ + | Care Clinical Research Coordinator Name | Role | Phone | [...] 2017 | | Center at [facility] [address] | MD [address] | | | | | [address] | [place], [place] | | | | | Mailcode: [place] | [phone] | | | | | for Health and | [phone] | | | | | [facility] [address] | | | | | | [place], [place] | | | | | | [address] | | | | | | [phone] | | | +--------+ + + + [...] + + | 04/29/ | Diagnostic | Backup Operator | Marce Meyer | | | 2019 | Visit | | Eve Briseno [address] | | | | | | [address] | | | | | | [place], [place] | | | | | | [address] | | +--------+ + + + + documented as of this encounter Visit Diagnoses Not on filedocumented in this encounter"
--- OUTSIDE RECORDS SUMMARY | ~2019-04-25 | XMS | Encounter Summary ---
Demographics + + + | Address | [address] | | | [place] [address] | + + + | Home Phone [...] [place] | | | | | [address] | | + + + + + Care Team Providers + +------+ + | Care Design Technology Teacher Name | Role | Phone | [...] 2013 | on | Cochlear Services | [facility] [address] | | | | | [address] | [address] | | | | | Toya Spencer Mailcode: | [place], [place] | | | | | [address] Physician's | [phone] | | | | | [place], | | | | | | [place] [address] | | | | | | [phone] | | | +--------+ + + + [...] + + | 04/29/ | Diagnostic | Hoist Worker | Marce Meyer | | | 2019 | Visit | | Eve Briseno [address] | | | | | | [address] | | | | | | [place], [place] | | | | | | [address] | | +--------+ + + + + documented as of this encounter Visit Diagnoses Not on filedocumented in this encounter"
--- OUTSIDE RECORDS SUMMARY | ~2019-04-25 | XMS | Encounter Summary ---
Demographics + + + | Address | [address] | | | [place] [address] | + + + | Home Phone [...] [place] | | | | | [address] | | + + + + + Care Team Providers + +------+ + | Care Supervisor [place] Name | Role | Phone | + [...] | | 2012 | | Center at [facility] [address] | [address] | | | | | [address] | [facility] [place] | | | | | Mailcode: [place] | [phone] | | | | | for Health and | [phone] | | | | | [facility] [address] | | | | | | [place], [place] | | | | | | [address] | | | | | | [phone] | | | +--------+ + + + [...] + + | 04/29/ | Diagnostic | Hammerer Tab | Marce Meyer | | | 2019 | Visit | | Eve Briseno [address] [place] [address] | | | | | | [address] | | | | | | [place] | | | | | | [address] | | +--------+ + + + + documented as of this encounter Visit Diagnoses Not on filedocumented in this encounter"
--- OUTSIDE RECORDS SUMMARY | ~2019-04-25 | XMS | Encounter Summary ---
Demographics + + + | Address | [address] | | | [place] [address] | + + + | Home Phone [...] [place] | | | | | [address] | | + + + + + Care Team Providers + +------+ + | Care Agricultural Research Engineer Name | Role | Phone | + +------+ + | Sergo Leigh MD | PCP | Unavailable | + +------+ + Reason for Visit + + + | Reason | Comments | + + + | Prescription | | + + + Encounter Details +--------+ + + + + | Date | Type | Department | Care Team | Description | +--------+ + + + + | 11/20/ | Telephone | Otolaryngology | Jose Franco, | Prescription | | 2010 | | Otology Services at | [address] | | | | | [facility] [address] | [address] | | | | | [address] | [place] [address] | | | | | Mailcode: [address] | [phone] | | | | | Physiciankary Perez | (Fax) | | | | | [place], [place] | | | | | | [address] | | | | | | [phone] | | | +--------+ + + + [...] + + | 04/29/ | Diagnostic | Cdl Service Technician | Marce Meyer | | | 2019 | Visit | | Eve Briseno [address] | | | | | | [address] | | | | | | [place] | | | | | | [address] | | +--------+ + + + + documented as of this encounter Visit Diagnoses Not on filedocumented in this encounter"
--- OUTSIDE RECORDS SUMMARY | ~2019-04-25 | XMS | Encounter Summary ---
Demographics + + + | Address | [address] | | | [place] [address] | + + + | Home Phone [...] Author + + + | Author | [facility] | + + + | Organization | [facility] | + + + | Address | Unknown | + + + | Phone | Unavailable | + + + Support + + + + + | Name | Relationship | Address | Phone | + + + + + | Margarito Owusu | ECON | [address] | | | | [place] | | | | | [address] | | + + + + + Care Team Providers + +------+ + | Care Agricultural Commodities Grader Name | Role | Phone | [...] + + + | Closed | | Statistician Mathematical | | Ciaran, | Ent | | | | | | Ender Perdomo, | Cochlear [facility] | | | | | | MD | [address] | | | | | | [place] | [address] | | | | | | [facility] | Rd Mailcode: | | | | | | [facility] [address] | [address] | | | | | | [address] | Physician's | | | | | | [place], | [place] | | | | | | [place] [address] | [place], [place] | | | | | | Phone: | [address] | | | | | | [phone] | Phone: | | | | | | Fax: | [phone] | | | | | | [phone] | Fax: | | | | | | | [phone] | +--------+--------+ + + + + Encounter Details +--------+---------+ + + + | Date | Type | Department | Care Team | Description | +--------+---------+ + + + | 11/24/ | Office | Otolaryngology | Pascual Pace, | Sensorineural | | 2012 | Visit | Audiology Services | Melodie [facility] [address] | hearing loss, | | | | at [facility] [address] | [address] | unspecified (Primary | | | | [address] | Rd [place], [place] | Dx) | | | | Mailcode: [address] | [phone] | | | | | [facility] | | | | | | [place], [place] | | | | | | [address] | | | | | | [phone] | | | +--------+---------+ + + + [...] Melodie Herbert M.A., YULIA-A Clinical & Rehabilitative Statistician Mathematical [facility] Cochlear Implant Program Department of Otolaryngology/Head & Neck Surgery documented in t his encounter Plan of Treatment +--------+ + + + + | Date | Type | Specialty | Care Team | Description | +--------+ + + + + | 04/29/ | Diagnostic | Statistician Mathematical | Marce Meyer | | | 2018 | Visit | | Eve Briseno [address] | | | | | | [address] | | | | | | [place] | | | | | | [address] | | +--------+ + + + + documented as of this encounter Visit Diagnoses + + | Diagnosis | + + | Sensorineural hearing loss, unspecified - Primary | + + documented in this encounter"
--- OUTSIDE RECORDS SUMMARY | ~2019-04-25 | XMS | Encounter Summary ---
Demographics + + + | Address | [address] | | | [place] [address] | + + + | Home Phone [...] [place] | | | | | [address] | | + + + + + Care Team Providers + +------+ + | Care Ground Support Equipment Assembler Name | Role | Phone | + [...] + + + + | 08/19/ | Hospital | [facility] [address] | Ayana Butler, | | | 2013 - | Encounter | [address] | [address] | | | | | [place] | [place] | | | 08/28/ | | [address] | [address] | | | 2012 | | [phone] | [phone] | | | | | | | [...] + + + | Blood Pressure | 136/75 | 08/27/2012 9:21 PM | | | | | PST | | + + + + + | Pulse | 101 | 08/27/2012 9:21 PM | | | | | PST | | + + + + + | Temperature | 37 C (98.6 F) | 08/27/2012 9:21 PM | | | | | PST | | + + + + + | Respiratory Rate | 18 | 08/27/2012 9:21 PM | | | | | PST | | + + + + + | Oxygen Saturation | 95% | 08/27/2012 9:21 PM | | | | | PST | | + + + + + | Inhaled Oxygen | - | - | | | Concentration | | | | + + + + + | Weight | 118.4 kg (261 lb 0.4 | 08/19/2012 9:00 AM | | | | oz) | PST | | + + + + + | Height | 182.9 cm (6' 0.01") | 08/19/2012 9:00 AM | | | | | PST | | + + + + + | Body Mass Index | 35.39 | 08/19/2012 9:00 AM | | | | | PST | | + + + + + documented in this encounter Discharge Summaries Hardeep Pinon MD - 08/28/2012 11:20 AM PSTFormatting of this note might be different fro m the original. INPATIENT PHYSICIAN DISCHARGE SUMMARY Author: HARDEEP PINON MD Attending Physician: Ayana Butler MD PCP: Cee Triana MD Admission Date: 08/19/2012 Discharge Date: 28 Aug 2012 Diagnoses Principal Final Diagnosis: Recurrent incisional hernia, and initial incisional hernia at prior colostomy site. Additional Diagnoses: Patient Active Problem List: Asthma HTN (hypertension) GERD (Gastroesophageal Reflux Disease) Insomnia Depression PTSD (post-traumatic stress disorder) Hyperlipidemia Morbid obesity Bipolar affective disorder SUSAN (obstructive sleep apnea) Sinusitis (Chronic) Reactive airway disease Otitis externa Nausea & vomiting Chronic pain Cochlear implant in place Illiterate Heart attack Chronic airway obstruction, not elsewhere classified Procedures 1. Open repair of 2 incisional hernias with biological mesh and primary closure of fascia. 2. Lysis of adhesions. 3. Scar excision. Brief Hospital Course Edgar Marquez is a 46 y.o. male with a history of a recurrent ventral hernia, admitt ed electively on 08/19/2012 for the procedure(s) described above. The patient was followed c losely by the attending providers, resident providers, and medical/nursing staff. Post operatively, the patient was admitted to the hospital for convalescent care. His diet was slowly advanced with return of bowel function. He tolerated advancement of his diet will with no complications. During his hospitalization it was noted that he was constipated, tho ugh passing flatus, and he was started a multi-agent bowel regimen. While on the hospital floor, the patient tolerated oral intake sufficient to maintain nutri tion and hydration. The surgical wound remained clean, dry, and intact without signs concern ing for infection. The patient was felt appropriate for discharge to home on 08/28/2012, and the patient and/or family members agree with this course of action. Medications: Current Discharge Medication List START taking these medications Details nitroglycerin 0.2% Topical Ointment Apply 0.5 Inches to affected area two times daily. Admi nister upon rising and 6 hours later. Qty: 30 g, Refills: 1 oxyCODONE, immediate release, 5 mg Oral tablet Take 1-4 Tabs by mouth every four hours as n eeded for severe pain. Qty: 90 Tab, Refills: 0 polyethylene glycol 17 gram/dose Oral Powder Take 17 g by mouth two times daily. Qty: 527 g, Refills: 3 prochlorperazine 5 mg Oral tablet Take 1 Tab by mouth every six hours as needed for nausea/ vomiting. Max dose: 40 mg/day Qty: 30 Tab, Refills: 0 simethicone chew 80 mg Oral tablet, chewable Take 1 Tab by mouth three times daily as neede d for bloating. Qty: 60 Tab, Refills: 2 CONTINUE these medications which have CHANGED or have new prescriptions Details !! docusate sodium (COLACE) 100 mg Oral capsule Take 1 Cap by mouth two times daily. Qty: 60 Cap, Refills: 3 !! - Potential duplicate medications found. Please discuss with provider. CONTINUE these medications which have NOT CHANGED Details acetaminophen 500 mg Oral tablet Take 1,000 mg by mouth as needed. Aspirin 81 mg Oral tablet Take 1 Tab by mouth once daily. Qty: 90 Tab, Refills: 3 CALCIUM CARBONATE (TUMS 500 ORAL) Take by mouth. carBAMazepine (TEGRETOL) 200 mg Oral tablet Take 200 mg by mouth two times daily. ciprofloxacin (CILOXAN) 0.3 % Ophthalmic Drops Instill 1-2 Drops into both eyes every two h ours. Please disregard eye instructions. Instill 3 drops into each ear two times a day Qty: 2.5 mL, Refills: 0 cyclobenzaprine (FLEXERIL) 10 mg Oral tablet Take 10 mg by mouth three times daily as neede d. Do not use longer than 2-3 weeks. dexamethasone 0.1 % Ophthalmic Drops 3 drops into each ear 2 times a day. Qty: 5 mL, Refills: 2 Associated Diagnoses: Chronic mastoiditis !! docusate sodium (COLACE) 100 mg Oral capsule Take 100 mg by mouth two times daily. fluticasone-salmeterol 250-50 mcg/dose Inhalation Disk with Device Inhale 1 Puff two times daily. furosemide 10 mg Oral tablet Take 20 mg by mouth once daily. gabapentin (NEURONTIN) 800 mg Oral tablet Take 800 mg by mouth three times daily. hydrochlorothiazide 25 mg Oral tablet Take 25 mg by mouth once daily. ibuprofen 800 mg Oral tablet Take 800 mg by mouth every six hours as needed. ipratropium (ATROVENT HFA) 17 mcg/actuation Inhalation HFA Aerosol Inhaler Inhale 2 Puffs f our times daily as needed. levothyroxine 25 mcg Oral tablet Take 25 mcg by mouth before breakfast. lisinopril 40 mg Oral tablet Take 40 mg by mouth once daily. LORazepam (ATIVAN) 2 mg Oral tablet Take 2 mg by mouth every four hours as needed. lurasidone (LATUDA) 40 mg Oral tablet Take by mouth once daily. metFORMIN 500 mg Oral tablet Take 500 mg by mouth two times daily. mirtazapine (REMERON) 30 mg Oral tablet Take 30 mg by mouth once daily in the evening. Mometasone 110 mcg (30 doses) Inhalation Aerosol Powdr Breath Activated Inhale. omeprazole (PRILOSEC) 20 mg Oral capsule,delayed release(DR/EC) Take 20 mg by mouth once da gabe. polyethylene glycol (MIRALAX) 17 gram Oral Powder in Packet Take 1 Packet by mouth once ryann ly. prazosin 2 mg Oral capsule Take 2 mg by mouth two times daily. promethazine 25 mg Oral tablet Take 25 mg by mouth four times daily as needed. risperiDONE 0.5 mg Oral tablet Take 0.5 mg by mouth two times daily. tiotropium 18 mcg Inhalation capsule, w/inhalation device Inhale 18 mcg once daily. traMADol 50 mg Oral tablet Take 50 mg by mouth every six hours as needed. !! - Potential duplicate medications found. Please discuss with provider. Diet Regular Regular diet- There are no restrictions to your diet. You may eat or drink whatever you pr efer, though healthy food choices are recommended. Regular diet- There are no restrictions on the foods in your diet. Please restrict the nehemias ture and fluid consistency as follows. Activity Showers are permitted, no soaking in water (baths, jacuzzi, swimming) for 4 weeks No heavy lifting, nothing greater than 10lbs. For 4-6 weeks (a gallon of milk is approximat lambert 8lbs.) NO DRIVING WHILE ON NARCOTICS. ACTIVITY: Walking will be your primary source of exercise. It is very important that you wa lk at least three times a day. These can be short walks that you can gradually increase over time as your strength improves. The majority of time should be spent out of bed. It is ok t o take naps if you are tired, but alternate napping with activity. CONSTIPATION: It is very important to avoid constipation and straining while trying to have a bowel movem ent. It is common to have constipation after surgery and while taking narcotics, however the re are several medications you can use to both prevent and relieve constipation. You can us e stool softeners (Colace a.k.a. Docusate Sodium) or laxatives (Senokot -stool softener + la xative; Miralax - laxative drink; Dulcolax - suppository). Please work toward having a bowel movement every 1-2 days. It is also important to stay hydrated as this will also help your bowel function. PAIN: It is expected that you will have pain after surgery, and it is important to manage this pa in so that you can increase your activity, sleep, and heal well from surgery. You are being sent home with a prescription for narcotic pain medication - this is to be taken NEEDED t ypically every 4-6 hours. You may also substitute/supplement the narcotic medication with Ty lenol for milder pain. DO NOT TO TAKE MORE THAN 3,250MG OF TYLENOL IN 24HOURS. Please take n ote if the narcotic you have been prescribed contains Tylenol (acetaminophen). Wound Care When showering, do not scrub sites, let water rinse all soapy residue off, pat area dry wit h a clean towel when finished. No need to apply any lotions or ointments to the sites.Your w ound is closed with berto. They can be removed 2 weeks after your surgery. You will return to clinic for a nurse visit for removal of your sutures.You will be sent home with a drain. Please record drain outputs. Your drain will be removed in clinic once output drops below a certain level. Please provide patient with drain care teaching Maintain Drain Your wound is closed with berto. They can be removed 2 weeks after your surgery. You will return to clinic for a nurse visit for removal of your sutures. Other Discharge Orders and Instructions Please contact us if you have any of the following: Difficulty breathing or unusual shortness of breath; Excessive bleeding or drainage, or pus at the operative site; Fevers (greater than 101.5) or chills; Increased pain that is not relieved by pain medications; Persistent nausea, vomiting, or severe diarrhea. During normal business hours please call [facility] . For 'after hours' URGENT problems please call the [facility] fence making machine operator at and ask sid phoenix the "[facility] resident on-call". Medication Refill Instructions: For non-narcotic medication refills, please contact your pharmacy. If you think you will need a refill for the weekend, you must call by 3pm on to al low time for processing. Narcotics: If you need a refill on narcotic pain medications, please call the clinic be tween 8am-3pm. If you think you will need a refill for the weekend, you must call by 3pm on Narcotic medications (Dilaudid, Oxycodone, Morphine, etc.) cannot be called or faxed in to any pharmacy; They must be either picked up in person or mailed to your home. NO REFILL REQU ESTS WILL BE TAKEN ON FRIDAYS OR S. Prescriptions sent by mail will take 3 business d ays. Prescriptions to be picked up in person will be ready by the next business day. It is your responsibility to keep track of how much pain medication you have left. You may receive a phone call from the clinic inquiring about your pain; this is to find out if you are having expected post-surgical pain, or if you are having problems and need furth er evaluation. Vitals on discharge: Ht 182.9 cm (6' 0.01")( < 3 %ile), Wt 118.4 kg (261 lbs 0.4 oz)( < 3 % ile), BP 136/75, Pulse 101, Temperature 37 C (98.6 F), RR 18, SpO2 95%, BMI 35.39 kg/(m^ 2). Outstanding labs/studies: None Discharging Physician: HARDEEP PINON MD Attending Physician: MD Hardeep Kennedy MD Chief Resident Department of Surgery [facility] documented in this en counter Discharge Instructions Instructions Nanda Stanley RN - 08/28/2012Patient Education Materials: EDEN Drain care at [facility] Additional Instructions: Abdominal precautions Discharge Nurse: Nanda Stanley Date: 08/28/2012 Discharge Time: 12:43 PM documented in this encounter Medications at [...] documented as of this encounter Progress Notes Hardeep Pinon MD - 08/28/2012 12:00 PM PSTFormatting of this note might be different fro m the original. [facility] Progress Note No events overnight. Patient wants to go home. Last Vitals: BP 136/75 | Pulse 101 | Temp 37 C (98.6 F) | RR 18 | Ht 1.829 m (6' 0.01") | Wt 118.4 kg (261 lb 0.4 oz) | SpO2 95% | BMI 35.39 kg/(m^2) 24 Hour Vital Min/Max: Systolic (24hrs), Av mmHg, Min:132 mmHg, Max:143 mmHg Diastolic (24hrs), Av mmHg, Min:75 mmHg, Max:92 mmHg Pulse Min: 98 Max: 105 Temp Min: 36.7 C (98.1 F) Max: 37 C (98.6 F) Resp Min: 18 Max: 18 SpO2 Min: 92 % Max: 95 % Intake/Output Summary (Last 24 hours) at 08/28/12 1201 Last data filed at 08/28/12 0900 Gross per 24 hour Intake 650 ml Output 2400 ml Net -1750 ml NAD Chest clear Incision c/d/i, drain serosang 90ml wwp S/p VHR D/C home PICC to be removed prior to discharge. Hardeep Pinon MD Chief Resident Department of Surgery [facility] Nav Grider MD - 08/27/2012 8:40 PM PST [facility] Department of Surgery [facility] Progress Note Author: Nav Allen MD Attending Physician: Ayana Butler MD 08/27/2012 SUBJECTIVE: Interval history: Large BM today Patient a lot more comfortable Complains of frequent gas OBJECTIVE: Vital Signs: Temp Av.7 C (98.1 F) Min: 36.6 C (97.9 F) Max: 36.9 C (98.4 F) Pulse Av Min: 88 Max: 105 Systolic (24hrs), Av mmHg, Min:132 mmHg, Max:143 mmHg Diastolic (24hrs), Av mmHg, Min:69 mmHg, Max:92 mmHg Resp Av Min: 18 Max: 18 SpO2 Av % Min: 92 % Max: 94 % Intake/Output Summary (Last 24 hours) at 08/27/122039 Last data filed at 08/27/12 1900 Gross per 24 hour Intake 1575 ml Output 3360 ml Net -1785 ml Physical Exam: General: NAD, nervous but able to be soothed Cardiovascular: tachy, reg rhythm, no mrg Respiratory: CTAB Abdominal: soft, appropriately tender, incision c/d/i with berto, EDEN serosang and decreas ing output Extremities: no edema, SCDs Labs/Cultures/Pathology: none Imaging/Diagnostic Studies: none ASSESSMENT: Edgar Marquez is a 46 y.o. male patient who is POD#7 s/p open incisional hernia repair with mesh placement and MARY who is doing quite well. Has h/o of bipolar disor vikki and PTSD and can interract well with staff if approached in calm and slow, respectful ma nner. PLAN: 1. Continue EDEN until output falls, serosang output encouraging 2. Oral pain meds 3. Ambulate TID 4. Ok for regular diet 5. Drain teaching 6. Discharge tomorrow with travel orders for [address] Ayana Butler MD is the attending of record for this patient encounter. NAV ALLEN MD Diagnoses: [id number] Ventral hernia 383.1 Chronic mastoiditis Meds: acetaminophen (aka TYLENOL) tablet 650 mg, 650 mg, Oral, Q6H PRN albuterol (aka PROVENTIL, VENTOLIN) 90 mcg/actuation inhaler 4 Puff, 4 Puff, Inhalation, Q4 H PRN carBAMazepine (aka TEGRETOL) tablet 200 mg, 200 mg, Oral, BID cyclobenzaprine (aka FLEXERIL) tablet 10 mg, 10 mg, Oral, TID PRN dexamethasone 0.1 % ophthalmic drops 3 Drop, 3 Drop, Both Ears, BID docusate sodium (aka COLACE) capsule 100 mg, 100 mg, Oral, BID dronabinol (aka MARINOL) capsule 2.5 mg, 2.5 mg, Oral, BID AC enoxaparin (aka LOVENOX) injection 40 mg, 40 mg, Subcutaneous, QPM fluticasone-salmeterol (aka ADVAIR) 250-50 mcg/dose inhaler 1 Puff, 1 Puff, Inhalation, BID gabapentin (aka NEURONTIN) capsule 700 mg, 700 mg, Oral, BID ibuprofen (aka MOTRIN) tablet 200 mg, 200 mg, Oral, Q6H PRN ipratropium (aka ATROVENT) 17 mcg/actuation inhaler 2 Puff, 2 Puff, Inhalation, QID PRN levothyroxine tablet 25 mcg, 25 mcg, Oral, BEFORE BREAKFAST LORazepam (aka ATIVAN) tablet 1-2 mg, 1-2 mg, Oral, Q4H PRN lurasidone Tab 40 mg, 40 mg, Oral, DAILY mirtazapine (aka REMERON) tablet 30 mg, 30 mg, Oral, QPM nitroglycerin 0.2% ointment, , Topical, BID omeprazole (aka PRILOSEC) capsule 20 mg, 20 mg, Oral, DAILY ondansetron (aka ZOFRAN) injection 4 mg, 4 mg, Intravenous, Q12H PRN oxyCODONE (immediate release) (aka ROXICODONE) tablet 5-20 mg, 5-20 mg, Oral, Q4H PRN polyethylene glycol (aka MIRALAX) powder 17 g, 17 g, Oral, BID prazosin (aka MINIPRESS) capsule 2 mg, 2 mg, Oral, BID prochlorperazine (aka COMPAZINE) tablet 5 mg, 5 mg, Oral, Q6H PRN risperiDONE (aka RISPERDAL) tablet 0.5 mg, 0.5 mg, Oral, BID senna-docusate (aka SENOKOT S) 8.6-50 mg 1 Tab, 1 Tab, Oral, BID simethicone chew (aka MYLICON) tablet 80 mg, 80 mg, Oral, TID PRN simethicone chew (aka MYLICON) tablet 80 mg, 80 mg, Oral, TID PRN tiotropium (aka SPIRIVA) inhalation 18 mcg, 18 mcg, Inhalation, DAILY Nav Grider MD - 08/26/2012 10:14 AM PST [facility] Department of Surgery [facility] Progress Note Author: Nav Allen MD Attending Physician: Ayana Butler MD 08/26/2012 SUBJECTIVE: Interval history: Patient with BM overnight Tolerating PO Pain controlled OBJECTIVE: Vital Signs: Temp Av.6 C (97.8 F) Min: 36.3 C (97.3 F) Max: 36.9 C (98.4 F) Pulse Av.6 Min: 94 Max: 106 Systolic (24hrs), Av mmHg, Min:126 mmHg, Max:146 mmHg Diastolic (24hrs), Av mmHg, Min:68 mmHg, Max:95 mmHg Resp Av.8 Min: 16 Max: 18 SpO2 Av.6 % Min: 92 % Max: 96 % Intake/Output Summary (Last 24 hours) at 08/26/12 1014 Last data filed at 08/26/12 0600 Gross per 24 hour Intake 1710 ml Output 1040 ml Net 670 ml Physical Exam: General: NAD, nervous but able to be soothed Cardiovascular: tachy, reg rhythm, no mrg Respiratory: CTAB Abdominal: soft, appropriately tender, incision c/d/i with berto, EDEN serosang and decreas ing output Extremities: no edema, SCDs Labs/Cultures/Pathology: .no new labs for this encounter Imaging/Diagnostic Studies: No imaging for this encounter ASSESSMENT: Edgar Marquez is a 46 y.o. male patient who is POD#6 s/p open incisional hernia repair with mesh placement and MARY who is doing quite well. Has h/o of bipolar disor vikki and PTSD and can interract well with staff if approached in calm and slow, respectful ma nner. PLAN: 1. Continue EDEN until output falls, serosang output encouraging 2. Nitroglycerin ointment for fissures 3. Oral pain meds 4. Ambulate TID 5. Ok for regular diet 6. If psych issues poorly managed will consider psych consult 7. Patient requires careful redirection 8. Dispo pending today Dr. Ayana Butler MD is the attending of record for this patient encounter. NAV ALLEN MD Diagnoses: [id number] Ventral hernia 383.1 Chronic mastoiditis Meds: acetaminophen (aka TYLENOL) tablet 650 mg, 650 mg, Oral, Q6H PRN albuterol (aka PROVENTIL, VENTOLIN) 90 mcg/actuation inhaler 4 Puff, 4 Puff, Inhalation, Q4 H PRN carBAMazepine (aka TEGRETOL) tablet 200 mg, 200 mg, Oral, BID cyclobenzaprine (aka FLEXERIL) tablet 10 mg, 10 mg, Oral, TID PRN dexamethasone 0.1 % ophthalmic drops 3 Drop, 3 Drop, Both Ears, BID docusate sodium (aka COLACE) capsule 100 mg, 100 mg, Oral, BID enoxaparin (aka LOVENOX) injection 40 mg, 40 mg, Subcutaneous, QPM fluticasone-salmeterol (aka ADVAIR) 250-50 mcg/dose inhaler 1 Puff, 1 Puff, Inhalation, BID gabapentin (aka NEURONTIN) capsule 700 mg, 700 mg, Oral, BID ibuprofen (aka MOTRIN) tablet 200 mg, 200 mg, Oral, Q6H PRN ipratropium (aka ATROVENT) 17 mcg/actuation inhaler 2 Puff, 2 Puff, Inhalation, QID PRN levothyroxine tablet 25 mcg, 25 mcg, Oral, BEFORE BREAKFAST LORazepam (aka ATIVAN) tablet 1-2 mg, 1-2 mg, Oral, Q4H PRN lurasidone Tab 40 mg, 40 mg, Oral, DAILY mirtazapine (aka REMERON) tablet 30 mg, 30 mg, Oral, QPM nitroglycerin 0.2% ointment, , Topical, BID omeprazole (aka PRILOSEC) capsule 20 mg, 20 mg, Oral, DAILY ondansetron (aka ZOFRAN) injection 4 mg, 4 mg, Intravenous, Q12H PRN oxyCODONE (immediate release) (aka ROXICODONE) tablet 5-20 mg, 5-20 mg, Oral, Q4H PRN polyethylene glycol (aka MIRALAX) powder 17 g, 17 g, Oral, BID prazosin (aka MINIPRESS) capsule 2 mg, 2 mg, Oral, BID risperiDONE (aka RISPERDAL) tablet 0.5 mg, 0.5 mg, Oral, BID senna-docusate (aka SENOKOT S) 8.6-50 mg 1 Tab, 1 Tab, Oral, BID simethicone chew (aka MYLICON) tablet 80 mg, 80 mg, Oral, TID PRN tiotropium (aka SPIRIVA) inhalation 18 mcg, 18 mcg, Inhalation, DAILY Nav Grider MD - 08/25/2012 6:49 AM PST [facility] Department of Surgery [facility] Progress Note Author: Nav Allen MD Attending Physician: Ayana Butler MD 08/25/2012 SUBJECTIVE: Interval history: Patient complaining of increased pain today compared to previously Tolerating PO intake Patient with 3 BMs yesterday, still complains of constipation Gas pains OBJECTIVE: Vital Signs: Temp Av.8 C (98.2 F) Min: 36.5 C (97.7 F) Max: 37.4 C (99.3 F) Pulse Av.2 Min: 91 Max: 111 Systolic (24hrs), Av mmHg, Min:133 mmHg, Max:151 mmHg Diastolic (24hrs), Av mmHg, Min:69 mmHg, Max:90 mmHg Resp Av Min: 16 Max: 16 SpO2 Av.7 % Min: 92 % Max: 95 % Intake/Output Summary (Last 24 hours) at 08/25/12 0649 Last data filed at 08/25/12 0630 Gross per 24 hour Intake 1215 ml Output 710 ml Net 505 ml Physical Exam: General: NAD, nervous but able to be soothed Cardiovascular: tachy, reg rhythm, no mrg Respiratory: CTAB Abdominal: soft, appropriately tender, incision c/d/i with berto, EDEN serosang and decreas ing output Extremities: no edema, SCDs Labs/Cultures/Pathology: No results found for this basename: NA:3,K:3,CL:3,BICARB:3,BUN:3,CR:3.GLU:3,CA:3,M,PO4:3 in the last 72 hours No results found for this basename: WBC:3,HB:3,HCT:3,PLT:3,NEUTROPERC:3,BANDPCT:3,LYMPHPERC :3,MONOPERC:3,BASOPERC:3,EOSPERC:3 in the last 72 hours Imaging/Diagnostic Studies: none ASSESSMENT: Edgar Marquez is a 46 y.o. male patient who is POD#5 s/p open incisional hernia repair with mesh placement and MARY who is doing quite well. Has h/o of bipolar disor vikki and PTSD and can interract well with staff if approached in calm and slow, respectful ma nner. PLAN: 1. Continue EDEN until output falls, serosang output encouraging 2. Nitroglycerin ointment for fissures 3. Enema for BM, simethicone for gas 4. Replete lytes prn 5. Oral pain meds 6. Ambulate TID 7. Ok for regular diet 8. If psych issues poorly managed will consider psych consult 9. Patient requires careful redirection 10. Likely dispo to SNF tomorrow Dr. Ayana Butler MD is the attending of record for this patient encounter. NAV ALLEN MD Diagnoses: [id number] Ventral hernia 383.1 Chronic mastoiditis Meds: acetaminophen (aka TYLENOL) tablet 650 mg, 650 mg, Oral, Q6H PRN albuterol (aka PROVENTIL, VENTOLIN) 90 mcg/actuation inhaler 4 Puff, 4 Puff, Inhalation, Q4 H PRN carBAMazepine (aka TEGRETOL) tablet 200 mg, 200 mg, Oral, BID cyclobenzaprine (aka FLEXERIL) tablet 10 mg, 10 mg, Oral, TID PRN dexamethasone 0.1 % ophthalmic drops 3 Drop, 3 Drop, Both Ears, BID docusate sodium (aka COLACE) capsule 100 mg, 100 mg, Oral, BID enoxaparin (aka LOVENOX) injection 40 mg, 40 mg, Subcutaneous, QPM fluticasone-salmeterol (aka ADVAIR) 250-50 mcg/dose inhaler 1 Puff, 1 Puff, Inhalation, BID gabapentin (aka NEURONTIN) capsule 700 mg, 700 mg, Oral, BID ibuprofen (aka MOTRIN) tablet 200 mg, 200 mg, Oral, Q6H PRN ipratropium (aka ATROVENT) 17 mcg/actuation inhaler 2 Puff, 2 Puff, Inhalation, QID PRN levothyroxine tablet 25 mcg, 25 mcg, Oral, BEFORE BREAKFAST LORazepam (aka ATIVAN) tablet 1-2 mg, 1-2 mg, Oral, Q4H PRN lurasidone Tab 40 mg, 40 mg, Oral, DAILY mirtazapine (aka REMERON) tablet 30 mg, 30 mg, Oral, QPM nitroglycerin 0.2% ointment, , Topical, BID omeprazole (aka PRILOSEC) capsule 20 mg, 20 mg, Oral, DAILY ondansetron (aka ZOFRAN) injection 4 mg, 4 mg, Intravenous, Q12H PRN oxyCODONE (immediate release) (aka ROXICODONE) tablet 5-20 mg, 5-20 mg, Oral, Q4H PRN polyethylene glycol (aka MIRALAX) powder 17 g, 17 g, Oral, BID prazosin (aka MINIPRESS) capsule 2 mg, 2 mg, Oral, BID risperiDONE (aka RISPERDAL) tablet 0.5 mg, 0.5 mg, Oral, BID senna-docusate (aka SENOKOT S) 8.6-50 mg 1 Tab, 1 Tab, Oral, BID tiotropium (aka SPIRIVA) inhalation 18 mcg, 18 mcg, Inhalation, DAILY Nav Grider MD - 08/24/2012 6:15 AM PST [facility] Department of Surgery [facility] Progress Note Author: Nav Allen MD Attending Physician: Ayana Butler MD 08/24/2012 SUBJECTIVE: Interval history: No acute events Patient complains of some constipation Has noted some blood in stool, history of fissures Tolerating PO OBJECTIVE: Vital Signs: Temp Av.2 C (99 F) Min: 37 C (98.6 F) Max: 37.4 C (99.3 F) Pulse Av Min: 93 Max: 104 Systolic (24hrs), Av mmHg, Min:112 mmHg, Max:138 mmHg Diastolic (24hrs), Av mmHg, Min:59 mmHg, Max:75 mmHg Resp Av.7 Min: 18 Max: 20 SpO2 Av.8 % Min: 93 % Max: 97 % Intake/Output Summary (Last 24 hours) at 08/24/12 0615 Last data filed at 08/24/12 0500 Gross per 24 hour Intake 1945 ml Output 1380 ml Net 565 ml Physical Exam: General: NAD, nervous but able to be soothed Cardiovascular: tachy, reg rhythm, no mrg Respiratory: CTAB Abdominal: soft, appropriately tender, incision c/d/i with berto, EDEN serosang Extremities: no edema, SCDs Labs/Cultures/Pathology: Recent Labs Basename 08/22/12 0525 08/21/12 1314 NA 138 137 K 4.2 4.8 CL 103 102 BICARB 26 25 BUN 20 25* CR 0.99 1.13 CA 8.7 9.1 MG -- -- PO4 -- -- No results found for this basename: WBC:3,HB:3,HCT:3,PLT:3,NEUTROPERC:3,BANDPCT:3,LYMPHPERC :3,MONOPERC:3,BASOPERC:3,EOSPERC:3 in the last 72 hours Imaging/Diagnostic Studies: none ASSESSMENT: Edgar Marquez is a 46 y.o. male patient who is POD#4 s/p open incisional hernia repair with mesh placement and MARY who is doing quite well. Has h/o of bipolar disor vikki and PTSD and can interract well with staff if approached in calm and slow, respectful ma nner. PLAN: 1. Continue EDEN until output falls, serosang output encouraging 2. Nitroglycerin ointment for fissures; discussed nifedipine cream with pharmacy but not av ailable; will trial nitroglycerin ointment and will d/c if patient does not tolerate 3. Replete lytes prn 4. Oral pain meds 5. Ambulate TID 6. Ok for regular diet 7. If psych issues poorly managed will consider psych consult 8. Patient requires careful redirection Dr. Ayana Butler MD is the attending of record for this patient encounter. 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.1 Chronic mastoiditis Meds: acetaminophen (aka TYLENOL) tablet 650 mg, 650 mg, Oral, Q6H albuterol (aka PROVENTIL, VENTOLIN) 90 mcg/actuation inhaler 4 Puff, 4 Puff, Inhalation, Q4 H PRN carBAMazepine (aka TEGRETOL) tablet 200 mg, 200 mg, Oral, BID cyclobenzaprine (aka FLEXERIL) tablet 10 mg, 10 mg, Oral, TID PRN dexamethasone 0.1 % ophthalmic drops 3 Drop, 3 Drop, Both Ears, BID docusate sodium (aka COLACE) capsule 100 mg, 100 mg, Oral, BID enoxaparin (aka LOVENOX) injection 40 mg, 40 mg, Subcutaneous, QPM fluticasone-salmeterol (aka ADVAIR) 250-50 mcg/dose inhaler 1 Puff, 1 Puff, Inhalation, BID gabapentin (aka NEURONTIN) capsule 700 mg, 700 mg, Oral, BID ibuprofen (aka MOTRIN) tablet 200 mg, 200 mg, Oral, Q6H PRN ipratropium (aka ATROVENT) 17 mcg/actuation inhaler 2 Puff, 2 Puff, Inhalation, QID PRN lactated ringers IV, 50 mL/hr, Intravenous, CONTINUOUS levothyroxine tablet 25 mcg, 25 mcg, Oral, BEFORE BREAKFAST LORazepam (aka ATIVAN) tablet 1-2 mg, 1-2 mg, Oral, Q4H PRN lurasidone Tab 40 mg, 40 mg, Oral, DAILY mirtazapine (aka REMERON) tablet 30 mg, 30 mg, Oral, QPM omeprazole (aka PRILOSEC) capsule 20 mg, 20 mg, Oral, DAILY ondansetron (aka ZOFRAN) injection 4 mg, 4 mg, Intravenous, Q12H PRN oxyCODONE (immediate release) (aka ROXICODONE) tablet 5-20 mg, 5-20 mg, Oral, Q4H PRN polyethylene glycol (aka MIRALAX) powder 17 g, 17 g, Oral, DAILY prazosin (aka MINIPRESS) capsule 2 mg, 2 mg, Oral, BID risperiDONE (aka RISPERDAL) tablet 0.5 mg, 0.5 mg, Oral, BID senna-docusate (aka SENOKOT S) 8.6-50 mg 1 Tab, 1 Tab, Oral, BID tiotropium (aka SPIRIVA) inhalation 18 mcg, 18 mcg, Inhalation, DAILY Kristin Humphries RCP - 08/24/2012 3:56 AM PSTPt continues to refuse our AVAPS machine for overnight CPAP wear. We will try again tomorrow night. 13 3:56 AM Nav Grider MD - 08/23/2012 6:24 AM PST [facility] Department of Surgery Blue Surgery Progress Note Author: Nav Allen MD Attending Physician: Ayana Butler MD 08/23/2012 SUBJECTIVE: Interval history: Threatened to leave AMA because he wanted a regular diet Had flatus and BM with some blood History of fissures Otherwise no complaints OBJECTIVE: Vital Signs: Temp Av.7 C (98.1 F) Min: 36.2 C (97.2 F) Max: 37.1 C (98.8 F) Pulse Av Min: 103 Max: 112 Systolic (24hrs), Av mmHg, Min:123 mmHg, Max:139 mmHg Diastolic (24hrs), Av mmHg, Min:59 mmHg, Max:84 mmHg Resp Av Min: 16 Max: 20 SpO2 Av.6 % Min: 84 % Max: 93 % Intake/Output Summary (Last 24 hours) at 08/23/12 0624 Last data filed at 08/23/12 0600 Gross per 24 hour Intake 2940 ml Output 1675 ml Net 1265 ml Physical Exam: General: NAD, nervous but able to be soothed Cardiovascular: tachy, reg rhythm, no mrg Respiratory: CTAB , on 3 L NC Abdominal: soft, appropriately tender, incision c/d/i with berto, EDEN serosang Extremities: no edema, SCDs Labs/Cultures/Pathology: Recent Labs Basename 08/22/12 0525 08/21/12 1314 NA 138 137 K 4.2 4.8 CL 103 102 BICARB 26 25 BUN 20 25* CR 0.99 1.13 CA 8.7 9.1 MG -- -- PO4 -- -- Recent Labs Basename 08/20/12 1125 WBC 12.4* HB 12.9* HCT 37.5* PLT 168 NEUTROPERC -- BANDPCT -- LYMPHPERC -- MONOPERC -- BASOPERC -- EOSPERC -- Imaging/Diagnostic Studies: none ASSESSMENT: Edgar Marquez is a 46 y.o. male patient who is POD#4 s/p open incisional hernia repair with mesh placement and MARY who is doing quite well. Has h/o of bipolar disor vikki and PTSD and can interract well with staff if approached in calm and slow, respectful ma nner. PLAN: 1. Continue EDEN until output falls, serosang output encouraging 2. Replete lytes prn 3. Oral pain meds 4. Ambulate TID 5. Ok for regular diet 6. If psych issues poorly managed will consider psych consult 7. Patient requires careful redirection Dr. Ayana Butler MD is the attending of record for this patient encounter. NAV ALLEN MD Diagnoses: [id number] Ventral hernia 383.1 Chronic mastoiditis Meds: acetaminophen (aka OFIRMEV) IV 1,000 mg, 1,000 mg, Intravenous, Q8H albuterol (aka PROVENTIL, VENTOLIN) 90 mcg/actuation inhaler 4 Puff, 4 Puff, Inhalation, Q4 H PRN carBAMazepine (aka TEGRETOL) tablet 200 mg, 200 mg, Oral, BID cyclobenzaprine (aka FLEXERIL) tablet 10 mg, 10 mg, Oral, TID PRN dexamethasone 0.1 % ophthalmic drops 3 Drop, 3 Drop, Both Ears, BID docusate sodium (aka COLACE) capsule 100 mg, 100 mg, Oral, BID enoxaparin (aka LOVENOX) injection 40 mg, 40 mg, Subcutaneous, QPM fluticasone-salmeterol (aka ADVAIR) 250-50 mcg/dose inhaler 1 Puff, 1 Puff, Inhalation, BID gabapentin (aka NEURONTIN) capsule 700 mg, 700 mg, Oral, BID ipratropium (aka ATROVENT) 17 mcg/actuation inhaler 2 Puff, 2 Puff, Inhalation, QID PRN lactated ringers IV, 50 mL/hr, Intravenous, CONTINUOUS levothyroxine tablet 25 mcg, 25 mcg, Oral, BEFORE BREAKFAST LORazepam (aka ATIVAN) tablet 1-2 mg, 1-2 mg, Oral, Q4H PRN lurasidone Tab 40 mg, 40 mg, Oral, DAILY mirtazapine (aka REMERON) tablet 30 mg, 30 mg, Oral, QPM omeprazole (aka PRILOSEC) capsule 20 mg, 20 mg, Oral, DAILY ondansetron (aka ZOFRAN) injection 4 mg, 4 mg, Intravenous, Q12H PRN oxyCODONE (immediate release) (aka ROXICODONE) tablet 5-20 mg, 5-20 mg, Oral, Q4H PRN polyethylene glycol (aka MIRALAX) powder 17 g, 17 g, Oral, DAILY prazosin (aka MINIPRESS) capsule 2 mg, 2 mg, Oral, BID risperiDONE (aka RISPERDAL) tablet 0.5 mg, 0.5 mg, Oral, BID senna-docusate (aka SENOKOT S) 8.6-50 mg 1 Tab, 1 Tab, Oral, BID tiotropium (aka SPIRIVA) inhalation 18 mcg, 18 mcg, Inhalation, DAILY Nav Grider MD - 08/22/2012 8:57 AM PST [facility] Department of Surgery Blue Surgery Progress Note Author: Nav Allen MD Attending Physician: Ayana Butler MD 08/22/2012 SUBJECTIVE: Interval history: Endorses some pain this AM Had some PO liquids this morning Denies nausea or vomitiing Denies flatus OBJECTIVE: Vital Signs: Temp Av.1 C (98.7 F) Min: 37 C (98.6 F) Max: 37.1 C (98.8 F) Pulse Av.7 Min: 112 Max: 122 Systolic (24hrs), Av mmHg, Min:139 mmHg, Max:141 mmHg Diastolic (24hrs), Av mmHg, Min:74 mmHg, Max:96 mmHg Resp Av.3 Min: 16 Max: 22 SpO2 Av.7 % Min: 87 % Max: 93 % Intake/Output Summary (Last 24 hours) at 08/22/12 0857 Last data filed at 08/22/12 0800 Gross per 24 hour Intake 2060 ml Output 3330 ml Net -1270 ml Physical Exam: General: NAD, nervous but able to be soothed Cardiovascular: tachy, reg rhythm, no mrg Respiratory: CTAB Abdominal: soft, appropriately tender, incision c/d/i with berto, EDEN serosang Extremities: no edema, SCDs Labs/Cultures/Pathology: Recent Labs Basename 08/22/12 0525 08/21/12 1314 08/20/12 0454 NA 138 137 134* K 4.2 4.8 5.2* CL 103 102 98 BICARB 26 25 25 BUN 20 25* 32* CR 0.99 1.13 3.08* CA 8.7 9.1 8.6 MG -- -- 1.8 PO4 -- -- 4.4 Recent Labs Basename 08/20/12 1125 WBC 12.4* HB 12.9* HCT 37.5* PLT 168 NEUTROPERC -- BANDPCT -- LYMPHPERC -- MONOPERC -- BASOPERC -- EOSPERC -- Imaging/Diagnostic Studies: none ASSESSMENT: Edgar Marquez is a 46 y.o. male patient who is POD#3 s/p open incisional hernia repair with mesh placement and MARY who is doing quite well. Has h/o of bipolar disor vikki and PTSD and can interract well with staff if approached in calm and slow, respectful ma nner. PLAN: 1. Continue EDEN until output falls, serosang output encouraging 2. Replete lytes prn 3. Ambulate TID 4. Ok for sips and chips and po meds 5. If psych issues poorly managed will consider psych consult Dr. Ayana Butler MD is the attending of record for this patient encounter. NAV ALLEN MD Diagnoses: [id number] Ventral hernia 383.1 Chronic mastoiditis Meds: carBAMazepine (aka TEGRETOL) tablet 200 mg, 200 mg, Oral, BID cyclobenzaprine (aka FLEXERIL) tablet 10 mg, 10 mg, Oral, TID PRN dexamethasone 0.1 % ophthalmic drops 3 Drop, 3 Drop, Both Ears, BID docusate sodium (aka COLACE) capsule 100 mg, 100 mg, Oral, BID enoxaparin (aka LOVENOX) injection 40 mg, 40 mg, Subcutaneous, QPM fluticasone-salmeterol (aka ADVAIR) 250-50 mcg/dose inhaler 1 Puff, 1 Puff, Inhalation, BID gabapentin (aka NEURONTIN) capsule 700 mg, 700 mg, Oral, BID HYDROmorphone 25 mg in preservative free NaCl 0.9% 50 mL DAIRY CONSULTANT infusion, , Intravenous, CUCO NUOUS ipratropium (aka ATROVENT) 17 mcg/actuation inhaler 2 Puff, 2 Puff, Inhalation, QID PRN lactated ringers IV, 75 mL/hr, Intravenous, CONTINUOUS levothyroxine tablet 25 mcg, 25 mcg, Oral, BEFORE BREAKFAST LORazepam (aka ATIVAN) tablet 2 mg, 2 mg, Oral, Q4H PRN lurasidone Tab 40 mg, 40 mg, Oral, DAILY mirtazapine (aka REMERON) tablet 30 mg, 30 mg, Oral, QPM omeprazole (aka PRILOSEC) capsule 20 mg, 20 mg, Oral, DAILY ondansetron (aka ZOFRAN) injection 4 mg, 4 mg, Intravenous, Q12H PRN polyethylene glycol (aka MIRALAX) powder 17 g, 17 g, Oral, DAILY prazosin (aka MINIPRESS) capsule 2 mg, 2 mg, Oral, BID risperiDONE (aka RISPERDAL) tablet 0.5 mg, 0.5 mg, Oral, BID senna-docusate (aka SENOKOT S) 8.6-50 mg 1 Tab, 1 Tab, Oral, BID tiotropium (aka SPIRIVA) inhalation 18 mcg, 18 mcg, Inhalation, DAILY arcos Aviles MD - 08/21/2012 7:25 AM PST [facility] Department of Surgery Blue Surgery Progress Note Author: MD Stefan Attending Physician: Ayana Butler MD 08/21/2012 SUBJECTIVE: Interval history: Patient refusing AM and PM lab draws States had some flatus, no BM WBC elevated to 12.4 OBJECTIVE: Vital Signs: Temp Av.3 C (99.1 F) Min: 36.7 C (98.1 F) Max: 37.8 C (100 F) Pulse Av.7 Min: 113 Max: 127 Systolic (24hrs), Av mmHg, Min:109 mmHg, Max:139 mmHg Diastolic (24hrs), Av mmHg, Min:48 mmHg, Max:75 mmHg Resp Av.9 Min: 16 Max: 24 SpO2 Av.4 % Min: 88 % Max: 94 % Intake/Output Summary (Last 24 hours) at 08/21/12 0725 Last data filed at 08/21/12 0600 Gross per 24 hour Intake 3198.33 ml Output 2400 ml Net 798.33 ml Physical Exam: General: NAD, nervous but able to be soothed Cardiovascular: tachy, reg rhythm, no mrg Respiratory: CTAB Abdominal: soft, appropriately tender, incision c/d/i with berto, EDEN serosang (200cc outp ut in 24hrs) Extremities: no edema, SCDs Labs/Cultures/Pathology: Recent Labs Basename 08/20/12 0454 NA 134* K 5.2* CL 98 BICARB 25 BUN 32* CR 3.08* CA 8.6 MG 1.8 PO4 4.4 Recent Labs Basename 08/20/12 1125 WBC 12.4* HB 12.9* HCT 37.5* PLT 168 NEUTROPERC -- BANDPCT -- LYMPHPERC -- MONOPERC -- BASOPERC -- EOSPERC -- ASSESSMENT: Edgar Marquez is a 46 y.o. male patient who is POD#2 s/p open incisional hernia repair with mesh placement and MARY who is doing quite well. Has h/o of bipolar disor vikki and PTSD and can interract well with staff if approached in calm and slow, respectful ma nner. PLAN: 1. PICC for IV access given ileus, poor iv stick and frequent lab draws 2. F/u Cr today given ETHEL and dialy labs 3. DC Waddell given good UOP and risk for UTI 4. Continue EDEN until output falls, serosang output encouraging 5. Replete lytes prn 6. Ambulate TID 7. Ok for sips and chips and po meds 8. If psych issues poorly managed will consider psych consult Dr. Ayana Butler MD is the attending of record for this patient encounter. Long Aviles MD Diagnoses: [id number] Ventral hernia 383.1 Chronic mastoiditis Meds: carBAMazepine (aka TEGRETOL) tablet 200 mg, 200 mg, Oral, BID cyclobenzaprine (aka FLEXERIL) tablet 10 mg, 10 mg, Oral, TID PRN dexamethasone 0.1 % ophthalmic drops 3 Drop, 3 Drop, Both Ears, BID docusate sodium (aka COLACE) capsule 100 mg, 100 mg, Oral, BID enoxaparin (aka LOVENOX) injection 40 mg, 40 mg, Subcutaneous, QPM fluticasone-salmeterol (aka ADVAIR) 250-50 mcg/dose inhaler 1 Puff, 1 Puff, Inhalation, BID gabapentin (aka NEURONTIN) capsule 700 mg, 700 mg, Oral, BID HYDROmorphone 25 mg in preservative free NaCl 0.9% 50 mL DAIRY CONSULTANT infusion, , Intravenous, CUCO NUOUS ipratropium (aka ATROVENT) 17 mcg/actuation inhaler 2 Puff, 2 Puff, Inhalation, QID PRN lactated ringers IV, 100 mL/hr, Intravenous, CONTINUOUS levothyroxine tablet 25 mcg, 25 mcg, Oral, BEFORE BREAKFAST LORazepam (aka ATIVAN) tablet 2 mg, 2 mg, Oral, Q4H PRN lurasidone Tab 40 mg, 40 mg, Oral, DAILY mirtazapine (aka REMERON) tablet 30 mg, 30 mg, Oral, QPM omeprazole (aka PRILOSEC) capsule 20 mg, 20 mg, Oral, DAILY ondansetron (aka ZOFRAN) injection 4 mg, 4 mg, Intravenous, Q12H PRN polyethylene glycol (aka MIRALAX) powder 17 g, 17 g, Oral, DAILY prazosin (aka MINIPRESS) capsule 2 mg, 2 mg, Oral, BID risperiDONE (aka RISPERDAL) tablet 0.5 mg, 0.5 mg, Oral, BID senna-docusate (aka SENOKOT S) 8.6-50 mg 1 Tab, 1 Tab, Oral, BID tiotropium (aka SPIRIVA) inhalation 18 mcg, 18 mcg, Inhalation, DAILY Hector Green MD - 08/20/2012 10:57 PM PSTPaged by nurse to inform me patient was refusing draw of renal function panel. I spoke with the patient and attempted to convince him to allow phlebotomy to draw his bloo d. I noted that although his last potassium value had not reached a range that was likely t o be life threatening that it had been trending upward and if it became high enough it could cause his heart to stop and be fatal. Furthermore that if we were not able to monitor it t hen we would not be able to intervene and prevent this. He acknowledged that he understood this risk but respectfully refused to have his blood drawn as he had been poked so many time s earlier in the day that he no longer wanted to be a "Guinea pig." Hector Brooke MD Hardeep Fields MD - 08/20/2012 3:17 PM PST Blue Surgery Note Mr. Marquez has underwent a serious abdominal operation and has a history of falls such jerzy t he absolutely requires inpatient physical and occupational therapy in order to completely recover from his abdominal wall reconstruction. Patient Active Problem List Diagnoses Asthma HTN (hypertension) GERD (Gastroesophageal Reflux Disease) Insomnia Depression PTSD (post-traumatic stress disorder) Hyperlipidemia Seasonal Allergies Tobacco Use Disorder Morbid obesity Bipolar affective disorder SUSAN (obstructive sleep apnea) Sinusitis (Chronic) Reactive airway disease Otitis externa Nausea & vomiting Chronic pain Cochlear implant in place Illiterate Heart attack Chronic airway obstruction, not elsewhere classified Falls frequently Hardeep Pinon MD Chief Resident Department of Surgery [facility] Nav Grider MD - 08/20/2012 7:01 AM PST [facility] Department of Surgery Blue Surgery Progress Note Author: Nav Allen MD Attending Physician: Ayana Butler MD 08/20/2012 SUBJECTIVE: Interval history: No acute events Pain well controlled Some flatus overnight No complaints OBJECTIVE: Vital Signs: Temp Av.8 C (98.2 F) Min: 36.4 C (97.5 F) Max: 37.3 C (99.1 F) Pulse Av.8 Min: 103 Max: 113 Systolic (24hrs), Av mmHg, Min:90 mmHg, Max:127 mmHg Diastolic (24hrs), Av mmHg, Min:37 mmHg, Max:84 mmHg Resp Av.4 Min: 14 Max: 30 SpO2 Av % Min: 87 % Max: 99 % Intake/Output Summary (Last 24 hours) at 08/20/12 0701 Last data filed at 08/20/12 0600 Gross per 24 hour Intake 2375 ml Output 690 ml Net 1685 ml Physical Exam: General: NAD, hard of hearing Cardiovascular: rrr Respiratory: expiratory wheezes Abdominal: soft, appropriately tender, wound with dressing on, binder in place, drain with s/s output Extremities: warm and well-perfused Labs/Cultures/Pathology: Recent Labs Basename 08/20/12 0454 NA 134* K 5.2* CL 98 BICARB 25 BUN 32* CR 3.08* CA 8.6 MG -- PO4 -- No results found for this basename: WBC:3,HB:3,HCT:3,PLT:3,NEUTROPERC:3,BANDPCT:3,LYMPHPERC :3,MONOPERC:3,BASOPERC:3,EOSPERC:3 in the last 72 hours Imaging/Diagnostic Studies: none ASSESSMENT: Edgar Marquez is a 46 y.o. male patient who is POD 1 s/p ex-lap, Mary and recurrent incisional hernia repair. Doing well. Based on history of recurrent hernia and mu ltiple abdominal surgeries we plan on slowly progressing his diet as we expect delayed retur n of bowel function. PLAN: 1. D/c waddell 2. Clears with plan to advance slowly 3. Encourage ambulation Dr. Ayana Butler MD is the attending of record for this patient encounter. NAV ALLEN MD Diagnoses: [id number] Ventral hernia 383.1 Chronic mastoiditis Meds: acetaminophen (aka OFIRMEV) IV 1,000 mg, 1,000 mg, Intravenous, Q6H carBAMazepine (aka TEGRETOL) tablet 200 mg, 200 mg, Oral, BID cyclobenzaprine (aka FLEXERIL) tablet 10 mg, 10 mg, Oral, TID PRN dexamethasone 0.1 % ophthalmic drops 3 Drop, 3 Drop, Both Ears, BID docusate sodium (aka COLACE) capsule 100 mg, 100 mg, Oral, BID enoxaparin (aka LOVENOX) injection 40 mg, 40 mg, Subcutaneous, QPM fluticasone-salmeterol (aka ADVAIR) 250-50 mcg/dose inhaler 1 Puff, 1 Puff, Inhalation, BID gabapentin (aka NEURONTIN) capsule 800 mg, 800 mg, Oral, TID HYDROmorphone 25 mg in preservative free NaCl 0.9% 50 mL DAIRY CONSULTANT infusion, , Intravenous, CUCO NUOUS ipratropium (aka ATROVENT) 17 mcg/actuation inhaler 2 Puff, 2 Puff, Inhalation, QID PRN lactated ringers IV, 100 mL/hr, Intravenous, CONTINUOUS levothyroxine tablet 25 mcg, 25 mcg, Oral, BEFORE BREAKFAST LORazepam (aka ATIVAN) tablet 2 mg, 2 mg, Oral, Q4H PRN lurasidone Tab 40 mg, 40 mg, Oral, DAILY mirtazapine (aka REMERON) tablet 30 mg, 30 mg, Oral, QPM omeprazole (aka PRILOSEC) capsule 20 mg, 20 mg, Oral, DAILY ondansetron (aka ZOFRAN) injection 4 mg, 4 mg, Intravenous, Q12H PRN polyethylene glycol (aka MIRALAX) powder 17 g, 17 g, Oral, DAILY prazosin (aka MINIPRESS) capsule 2 mg, 2 mg, Oral, BID risperiDONE (aka RISPERDAL) tablet 0.5 mg, 0.5 mg, Oral, BID senna-docusate (aka SENOKOT S) 8.6-50 mg 1 Tab, 1 Tab, Oral, BID tiotropium (aka SPIRIVA) inhalation 18 mcg, 18 mcg, Inhalation, DAILY Marcos Cee MD - 08/19/2012 3:07 PM PSTProcedure Date: 08/19/2012 Attending Physician: MD Luke Assistants: Long Aviles MD R2 Preoperative Diagnosis: Recurrent incisional hernia Postoperative Diagnosis: same Procedure Performed: 1. Exploratory laparotomy 2. Lysis of adhesions 3. Recurrent incisional hernia repair with [id number] Strattice mesh 4. Primary repair of parastomal hernia with Strattice underlay (same piece of mesh) 5. Excision of scar Findings: - large incisional hernia with dense adhesions of small bowel to prior mesh and anterior ab dominal wall - multiple small pearls/organized abscesses Anesthesia: GETA Estimated Blood Loss: 100cc Fluids: 2.1 crystalloid UOP: 100cc Specimens: none Complications: none apparent Drains: 19Fr Oscar drain in subcutaneous tissue Disposition: - extubated in OR - stable to PACU - admit to [facility], R2 P documented in thi s encounter Plan of Treatment +--------+ + + + + | Date | Type | Specialty | Care Team | Description | +--------+ + + + + | 04/29/ | Diagnostic | Bin Cleaner | Marce Meyer | | | 2018 | Visit | | Eve Briseno [address] [facility] | | | | | | [place] | | | | | | [place], [place] | | | | | | [id number] | | +--------+ + + + + documented as of this encounter Procedures + +--------+ + + + | Procedure Name | Priori | Date/Time | Associated Diagnosis | Comments | | | ty | | | | + +--------+ + + + | PROCEDURE NOTE | Routin | 08/30/2015 | | Results for this | | | e | 11:41 PM | | procedure are in the | | | | PST | | results section. | + +--------+ + + + | X-RAY ABDOMEN 1 VIEW | Routin | 08/27/2012 | | Results for this | | | e | 8:50 AM | | procedure are in the | | | | PST | | results section. | + +--------+ + + + | OPERATION RECORD | | 08/22/2012 | | Results for this | | | | 8:43 AM | | procedure are in the | | | | PST | | results section. | + +--------+ + + + | BASIC METABOLIC SET | Urgent | 08/22/2012 | | Results for this | | (NA, K, CL, TCO2, | | 5:25 AM | | procedure are in the | | BUN, CR, GLU, CA) | | PST | | results section. | + +--------+ + + + | BASIC METABOLIC SET | Routin | 08/21/2012 | | Results for this | | (NA, K, CL, TCO2, | e | 1:14 PM | | procedure are in the | | BUN, CR, GLU, CA) | | PST | | results section. | + +--------+ + + + | X-RAY PORTABLE CHEST | Urgent | 08/21/2012 | | Results for this | | 1 VIEW | | 11:23 AM | | procedure are in the | | | | PST | | results section. | + +--------+ + + + | IP CONSULT TO [facility] | Routin | 08/21/2012 | | Results for this | | TEAM | e | 10:58 AM | | procedure are in the | | | | PST | | results section. | + +--------+ + + + | CBC ONLY | Routin | 08/20/2012 | | Results for this | | | e | 11:25 AM | | procedure are in the | | | | PST | | results section. | + +--------+ + + + | CBC ONLY | Routin | 08/20/2012 | | Results for this | | | e | 11:25 AM | | procedure are in the | | | | PST | | results section. | + +--------+ + + + | SODIUM TOTAL, URINE | Routin | 08/20/2012 | | Results for this | | | e | 9:44 AM | | procedure are in the | | | | PST | | results section. | + +--------+ + + + | CREATININE, URINE | Routin | 08/20/2012 | | Results for this | | | e | 9:44 AM | | procedure are in the | | | | PST | | results section. | + +--------+ + + + | BASIC METABOLIC SET | Urgent | 08/20/2012 | | Results for this | | (NA, K, CL, TCO2, | | 4:54 AM | | procedure are in the | | BUN, CR, GLU, CA) | | PST | | results section. | + +--------+ + + + | PHOSPHORUS, PLASMA | Routin | 08/20/2012 | | Results for this | | | e | 4:54 AM | | procedure are in the | | | | PST | | results section. | + +--------+ + + + | MAGNESIUM, PLASMA | Routin | 08/20/2012 | | Results for this | | | e | 4:54 AM | | procedure are in the | | | | PST | | results section. | + +--------+ + + + | CAPILLARY BLOOD | Routin | 08/19/2012 | | Results for this | | GLUCOSE (NO CHG), | e | 1:28 PM | | procedure are in the | | POC | | PST | | results section. | + +--------+ + + + | CAPILLARY BLOOD | Routin | 08/19/2012 | | Results for this | | GLUCOSE (NO CHG), | e | 12:20 PM | | procedure are in the | | POC | | PST | | results section. | + +--------+ + + + | VENTRAL HERNIA | Electi | 08/19/2012 | Incisional hernia | | | REPAIR | ve | 11:18 AM | without mention of | | | | Surgic | PST | obstruction or | | | | al | | gangrene | | + +--------+ + + + documented in this encounter Results PROCEDURE NOTE (08/30/2015 11:41 PM PST) + + | Transcriptions | + + | Other, Faculty - 09/01/2012 10:52 AM PST | + + X-RAY ABDOMEN 1 VIEW (08/27/2012 8:50 AM PST) + + + + + + | Component | Value | Ref Range | Performed | Pathologist | | | | | At | Signature | + + + + + + | ABDOMEN, 1 | INDICATION:Constipation | | | | | VIEW (KUB) | TECHNIQUE:Semiupright | | | | | | portable view of the | | | | | | upper and mid | | | | | | abdomen. Diaphragmsar | | | | | | e occluded in pelvis not | | | | | | included. | | | | | | FINDINGS:Limited study | | | | | | because of portable | | | | | | technique and body | | | | | | habitus.Stomach contains | | | | | | some air but is not | | | | | | dilated. No dilated | | | | | | loops ofsmall | | | | | | bowel. Scattered | | | | | | stool and gas is seen in | | | | | | the colon, but | | | | | | theredoes not appear to | | | | | | be increased | | | | | | stool. Some type of | | | | | | catheter ordrain | | | | | | projects in the mid | | | | | | abdomen. | | | | | | IMPRESSION:Limited, | | | | | | without obvious | | | | | | constipation. Attending | | | | | | Radiologists: Arian | | | | | | Harvey LemonAuthor: | | | | | | Harvey Tena I | | | | | | have personally viewed | | | | | | this procedure/exam, | | | | | | reviewed this report,and | | | | | | made changes to it | | | | | | where appropriate. | | | | | | Final/Electronically | | | | | | signed / Arian | | | | | | Ion 08/27/2012 9:49 | | | | | | AM | | | | + + + + + + + + | Specimen | + + | | + + + +---------+ + + | Performing | Address | City/State/Zipcode | Phone Number | | Organization | | | | + +---------+ + + | [facility] DEPARTMENT OF | | | | | RADIOLOGY | | | | + +---------+ + + OPERATION RECORD (08/22/2012 8:43 AM PST) + + | Transcriptions | + + | Ayana Butler MD - 08/22/2012 5:22 AM PST | | Date: 08/19/2012 | | | | Attending Surgeon: Ayana Butler MD | | | | Private Advisor(s): Marcos Aviles MD | | | | Preoperative Diagnosis(es): | | Recurrent incisional hernia. | | | | Postoperative Diagnosis(es): | | Recurrent incisional hernia, and initial incisional hernia at prior colostomy | | site. | | | | Procedures Performed: | | 1. Open repair of 2 incisional hernias with biological mesh and primary | | closure of fascia. | | 2. Lysis of adhesions. | | 3. Scar excision. | | | | Anesthesia: | | General endotracheal anesthesia. | | | | Estimated Blood Loss: | | 100 mL. | | | | IV Fluids: | | 2.1 L. | | | | Urine Output: | | 100 mL. | | | | Specimens: | | None. | | | | Complications: | | None. | | | | Drains: | | A 19-Surinamese round Oscar drain in subcutaneous tissues above the fascia in | | the left lower quadrant. | | | | Findings: | | Large incisional hernia with dense adhesions of small bowel 2 prior mesh | | and anterior abdominal wall. Separate incisional hernia in the right lower | | quadrant at site of prior colostomy. | | | | Indications: | | The patient is a 46-year-old male with an extensive history of prior | | incisional ventral hernia repairs, most recently in 2008, who presented | | with recurrent incisional hernia. His hernia developed following an | | elective repair of an umbilical hernia, during which he had complications | | of bowel injury, wound dehiscence, and need for multiple abdominal | | washouts, and diverting colostomy. He has under gone colostomy takedown | | with incisional hernia repair. His last operation was in 2008, and his hernia | | that he presents with today has been increasing in size and symptoms over | | the last year. He understands the risks and complications of surgery | | including the risk of wound infection, wound dehiscence, bowel injury, need | | for bowel resection, and recurrence. Informed consent was obtained prior | | to moving to the operating room. | | | | Procedure: | | The patient was brought to the operating room, placed supine on the OR | | table, and general endotracheal anesthesia was induced without incident. | | He was positioned, both arms out supine and was prepped and draped in the | | usual sterile fashion. A preprocedural time out was performed indicating | | correct patient, procedure, that antibiotics had been given, that all | | equipment was available, and that imaging was displayed and properly | | labeled. The procedure began with incising of the left lateral aspect of | | his prior scar with scalpel. This was taken down to the fascia at the superior | | aspect of this incision with Bovie cautery. Sharp dissection was used to | | enter the peritoneal cavity. There were dense adhesions throughout his | | abdomen. Extensive lysis of adhesions ensued, and the small bowel was eventually | | mobilized off the anterior abdominal wall without injury. The hernia | | defect was measured at 15 x 20. A piece of 20 x 25 stratus was chosen for | | repair. When the bowel had been completely mobilized, a separate 4 x 6 cm | | hernia defect was appreciated in the right lower quadrant at the site of | | prior colostomy takedown. This was closed with #1 Surgipro suture in | | Interrupted fashion. The Stratus was positioned on a diagonal for 4 cm of | | coverage on all sides of his fascial defects. The stratus was sequentially | | sutured in placed using number 1 Maxon and an Endoclose suture passer every 2cm. | | Once the stratus was in place, all sutures were tightened, and the mesh | | laid flat with slight tension. Although it appeared he had undergone prior | | component separation, his fascia met in the midline without undue tension. | | Therefore, his fascia was closed primarily with running number 1 Surgipro. | | A 19-Surinamese round Oscar drain was placed above the fascia, and his skin was | | closed after excising his scar with deep dermal sutures of 3-0 Polysorb in | | interrupted fashion and skin berto. The midline wound was dressed with | | Ioban dressing, and his incisions from the Endoclose suture passer were | | dressed with Indermil. The patient tolerated the procedure well. At the | | end of the case, all counts were correct x2. He was extubated and | | transported to PACU in stable condition. | | | | | | Ayana Butler MD | | EWG / HS | | [id number] / [id number] / [id number] / | | | | | + + BASIC METABOLIC SET (NA, K, CL, TCO2, BUN, CR, GLU, CA) (08/22/2012 5:25 AM PST) + +---------+ + + + | Component | Value | Ref Range | Performed | Pathologist | | | | | At | Signature | + +---------+ + + + | GLUCOSE, | 112 (H) | 60 - 99 mg/dL | [facility] | | | PLASMA | | | LABORATORY | | | (LAB) | | | SERVICES, | | | | | | CORE | | + +---------+ + + + | BUN, PLASMA | 20 | 6 - 20 mg/dL | [facility] [...] + + | SODIUM, | 138 | 136 - 145 | [facility] | [...] + + | CALCIUM, | 8.7 | 8.6 - 10.2 | [facility] | | | PLASMA | | mg/dL | LABORATORY | | | (LAB) | | | SERVICES, | | | | | | CORE | | + +---------+ + + + | ANION GAP | 9 | 4 - 11 mmol/L | [facility] [...] + + | [facility] | [address] | [place] [address] | | | SERVICES, CORE | [address] | | | + + + + + BASIC METABOLIC SET (NA, K, CL, TCO2, BUN, CR, GLU, CA) (08/21/2012 1:14 PM PST) + +---------+ + + + | Component | Value | Ref Range | Performed | Pathologist | | | | | At | Signature | + +---------+ + + + | GLUCOSE, | 124 (H) | 60 - 99 mg/dL | [facility] | | | PLASMA | | | LABORATORY | | | (LAB) | | | SERVICES, | | | | | | CORE | | + +---------+ + + + | BUN, PLASMA | 25 (H) | 6 - 20 mg/dL | [facility] | | | (LAB) | | | LABORATORY | | | | | | SERVICES, | | | | | | CORE | | + +---------+ + + + | CREATININE | 1.13 | 0.70 - 1.30 | [facility] | | | PLASMA | | mg/dL | LABORATORY | | | (LAB) | | | SERVICES, | | | | | | CORE | | + +---------+ + + + | SODIUM, | 137 | 136 - 145 | [facility] | | | PLASMA | | mmol/L | LABORATORY | | | (LAB) | | | SERVICES, | | | | | | CORE | | + +---------+ + + + | POTASSIUM, | 4.8 | 3.4 - 5.0 | [facility] | [...] +---------+ + + + | CALCIUM, | 9.1 [...] + + + + + | [facility] | [address] | [place] [address] | | | SERVICES, CORE | [address] | | | + + + + + X-RAY PORTABLE CHEST 1 VIEW (08/21/2012 11:23 AM PST) + + + + + + | Component | Value | Ref Range | Performed | Pathologist | | | | | At | Signature | + + + + + + | X-RAY | EXAM: AP chest. | | | | | PORTABLE | COMPARISON: 12/05/10 | | | | | CHEST 1 | History: Assess right | | | | | VIEW | PICC FINDINGS: The | | | | | | lung volumes are | | | | | | low. Tip of new right | | | | | | PICC projectsat the | | | | | | cavoatrial | | | | | | junction. Bilateral | | | | | | pleural effusions left | | | | | | greaterthan right and | | | | | | bilateral perihilar | | | | | | atelectasis are | | | | | | seen.Cardiomegaly is | | | | | | suspected. IMPRESSION: | | | | | | 1. Suitably | | | | | | positioned right | | | | | | PICC. Bilateral | | | | | | pleural effusionsperhaps | | | | | | reflecting some element | | | | | | of cardiac | | | | | | dysfunction. No | | | | | | signssuggesting | | | | | | pneumonia. Attending | | | | | | Radiologists: Tuan Ventura | | | | | | Adelaida RolonAuthor: | | | | | | Tuan Rolon M.D. | | | | | | I have personally | | | | | | viewed this | | | | | | procedure/exam, reviewed | | | | | | this report,and made | | | | | | changes to it where | | | | | | appropriate. | | | | | | Final/Electronically | | | | | | allie / Tuan Vnetura | | | | | | Gonzales 08/21/2012 | | | | | | 11:53AM | | | | + + + + + + + + | Specimen | + + | | + + + +---------+ + + | Performing | Address | City/State/Zipcode | Phone Number | | Organization | | | | + +---------+ + + | [facility] DEPARTMENT OF | | | | | RADIOLOGY | | | | + +---------+ + + IP CONSULT TO PIC TEAM (08/21/2012 10:58 AM PST) + + + | Narrative | Performed At | + + + | David Fisher 08/21/2012 10:58 AM PICC INSERTION DOCUMENTATION | | | NOTE Today | | | | | | s Date: 08/21/2012 Start Time: 1030 Patient Location (Unit/Room | | | #): 14A rm 48 Diagnosis: [id number] Ventral hernia 383.1 Chronic | | | mastoiditis Indications: (Select all that apply) Difficult Access | | | Allergies: Allergies Allergen Reactions | | | Morphine Psychosis? | | | Penicillins Rash Procedure Preparation: Reviewed Allergies | | | (Heparin, chlorhexidine, local anesthetic): Yes Informed consent | | | obtained: Yes Maximum Sterile Barrier Precautions: Hands washed | | | prior to gloving. Sterile gloves and gown worn by provider placing | | | line. Masks worn by all in room. Site prepped with Chloraprep. | | | FULL barrier drape used and sterile field maintained at all times. | | | PICC CATHETER Product Name: PowerPICC Construction: Double 5 Fr | | | 55cm Long 3cm Trimmed Lot # (or Sticker): INSERTION SITE: - | | | Basilic Right Local anesthetic used: lidocaine Sedation used: RN | | | gave ativan prior to procedure Ultrasound: Yes Microintroducer: Yes | | | Caps placed after insertion: Yes Each lumen flushed with: 10 mL of | | | Normal Saline Blood Return Noted: Yes Sterile dressing applied prior | | | to sterile field removal: Yes Complications: unable to thread picc R | | | cephalic vein Adjustments after x-ray: none Final cm exposed: | | | 5 Tip location: caj Placed by: David Fisher RN IVT Assisted by: | | | Luanne Rojas RN IVT PICC Team | | + + + + + | Procedure Note | + + | David Fisher RN - 08/21/2012 10:56 AM PST Formatting of this note might be different | | from the original.PICC INSERTION DOCUMENTATION NOTEToday | | | | s Date: 08/21/2012Start Time: 1030Patient Location (Unit/Room #): 14A 48Diagnosis: | | [id number] Ventral .1 Chronic mastoiditisIndications: (Select all that apply) | | Difficult Access Allergies: Allergies Allergen Reactions | | Morphine Psychosis? | | Penicillins Rash Procedure Preparation:Reviewed Allergies (Heparin, chlorhexidine, | | local anesthetic): YesInformed consent obtained: YesMaximum Sterile Barrier Precautions: | | Hands washed prior to gloving. Sterile gloves and gown worn by provider placing line. | | Masks worn by all in room. Site prepped with Chloraprep. FULL barrier drape used and | | sterile field maintained at all times.PICC CATHETERProduct Name: PowerPICCConstruction: | | Double5 Fr55cm [id number] TrimmedLot # (or Sticker): INSERTION SITE: - BasilicRightLocal | | anesthetic used: lidocaineSedation used: RN gave ativan prior to procedureUltrasound: | | YesMicrointroducer: YesCaps placed after insertion: YesEach lumen flushed with: 10 mL of | | Normal SalineBlood Return Noted: YesSterile dressing applied prior to sterile field | | removal: YesComplications: unable to thread picc R cephalic veinAdjustments after x-ray: | | noneFinal cm exposed: 5Tip location: cajPlaced by: David Fisher RN IVTAssisted by: | | Luanne Rojas RN IVT PICC Team | |Informed consent obtained: Yes | |Maximum Sterile Barrier Precautions: | | Hands washed prior to gloving. | | Sterile gloves and gown worn by provider placing line. | | Masks worn by all in room. | | Site prepped with Chloraprep. | | FULL barrier drape used and sterile field maintained at all times. | | | |PICC CATHETER | |Product Name: PowerPICC | |Construction: Double | |5 Fr | |55cm Long | |3cm Trimmed | |Lot # (or Sticker): | | | |INSERTION SITE: - Basilic | |Right | | | |Local anesthetic used: lidocaine | |Sedation used: RN gave ativan prior to procedure | |Ultrasound: Yes | |Microintroducer: Yes | |Caps placed after insertion: Yes | |Each lumen flushed with: 10 mL of Normal Saline | |Blood Return Noted: Yes | |Sterile dressing applied prior to sterile field removal: Yes | |Complications: unable to thread picc R cephalic vein | | | |Adjustments after x-ray: none | |Final cm exposed: 5 | |Tip location: caj | |Placed by: David Fisher RN IVT | |Assisted by: Luanne Rojas RN IVT PICC Team | + + CBC (08/20/2012 11:25 AM PST) + + + + + + | Component | Value | Ref Range | Performed | Pathologist | | | | | At | Signature | + + + + + + | WHITE CELL | 12.4 (H) | 4.4 - 11.0 K/cu | [facility] | | | COUNT | | mm | LABORATORY | | | | | | SERVICES, | | | | | | CORE | | + + + + + + | RED CELL | 3.97 (L) | 4.50 - 5.90 | [facility] | | | COUNT | | M/cu mm | LABORATORY | | | | | | SERVICES, | | | | | | CORE | | + + + + + + | HEMOGLOBIN | 12.9 (L) | 13.5 - 17.5 | [facility] | | | | | g/dL | LABORATORY | | | | | | SERVICES, | | | | | | CORE | | + + + + + + | HEMATOCRIT | 37.5 (L) | 41.0 - 53.0 % | [facility] | | | | | | LABORATORY | | | | | | SERVICES, | | | | | | CORE | | + + + + + + | MCV | 94.5 | 80.0 - 96.0 fL | [facility] | | | | | | LABORATORY | | | | | | SERVICES, | | | | | | CORE | | + + + + + + | MCHC | 34.3 | 33.4 - 35.5 | [facility] | | | | | g/dL | LABORATORY | | | | | | SERVICES, | | | | | | CORE | | + + + + + + | RDW | 13.4 | 11.5 - 15.0 % | [facility] | | | | | | LABORATORY | | | | | | SERVICES, | | | | | | CORE | | + + + + + + | PLATELET | 168 | 150 - 400 K/cu | [facility] [...] [facility] | [address] | [place] [address] | | | SERVICES, CORE | [address] | | | + + + + + CREATININE, URINE (08/20/2012 9:44 AM PST) + +--------+ + + + | Component | Value | Ref Range | Performed | Pathologist | | | | | At | Signature | + +--------+ + + + | CREATININE | 356.30 | mg/dL | [facility] | | | CONC UR | | | LABORATORY | | | | | | SERVICES, | | | | | | CORE | | + +--------+ + + + | URINE | Random | (none) | [facility] | | | INTERVAL | | | LABORATORY | | | | | | SERVICES, | | | | | | CORE | | + +--------+ + + + | URINE | Spot | (none) | [facility] | | | VOLUME | | | LABORATORY | | | | | | SERVICES, | | | | | | CORE | | + +--------+ + + + + + | Specimen | + + | Urine - Urine | + + + + + | Narrative | Performed At | + + + | Normal values based on 24 hour collection interval. Patient | [facility] | | results are calculated from actual collection interval and volume. | LABORATORY | | | SERVICES, CORE | + + + + + + + + | Performing | Address | City/State/Zipcode | Phone Number | | Organization | | | | + + + + + | [facility] | [address] | [place] [address] | | | SERVICES, CORE | [address] | | | + + + + + SODIUM TOTAL, URINE (08/20/2012 9:44 AM PST) + +--------+ + + + | Component | Value | Ref Range | Performed | Pathologist | | | | | At | Signature | + +--------+ + + + | SODIUM CONC | 6 | mmol/L | [facility] | | | URINE | | | LABORATORY | | | | | | SERVICES, | | | | | | CORE | | + +--------+ + + + | URINE | Random | (none) | [facility] | | | INTERVAL | | | LABORATORY | | | | | | SERVICES, | | | | | | CORE | | + +--------+ + + + | URINE | Spot | (none) | [facility] | | | VOLUME | | | LABORATORY | | | | | | SERVICES, | | | | | | CORE | | + +--------+ + + + + + | Specimen | + + | Urine - Urine | + + + + + | Narrative | Performed At | + + + | Normal values based on 24 hour collection interval. Patient | [facility] | | results are calculated from actual collection interval and volume. | LABORATORY | | | SERVICES, CORE | + + + + + + + + | Performing | Address | City/State/Zipcode | Phone Number | | Organization | | | | + + + + + | [facility] | [address] | [place] [address] | | | SERVICES, CORE | [address] | | | + + + + + PHOSPHORUS, PLASMA (08/20/2012 4:54 AM PST) + +-------+ + + + | Component | Value | Ref Range | Performed | Pathologist | | | | | At | Signature | + +-------+ + + + | PHOSPHORUS, | 4.4 | 2.4 - 4.7 mg/dL | [facility] | | | PLASMA | | | LABORATORY | | | (LAB) | | | SERVICES, | | | | | | CORE | | + +-------+ + + + + + | Specimen | + + | Blood - Blood | + + + + + + + | Performing | Address | City/State/Zipcode | Phone Number | | Organization | | | | + + + + + | [facility] | [address] | [place] [address] | | | BHAVESH, JUAN | [address] | | | + + + + + MAGNESIUM, PLASMA (08/20/2012 4:54 AM PST) + +-------+ + + + | Component | Value | Ref Range | Performed | Pathologist | | | | | At | Signature | + +-------+ + + + | MAGNESIUM,P | 1.8 | 1.8 - 2.5 mg/dL | [facility] | | | LASMA | | | LABORATORY | | | | | | SERVICES, | | | | | | JUAN | | + +-------+ + + + + + | Specimen | + + | Blood - Blood | + + + + + + + | Performing | Address | City/State/Zipcode | Phone Number | | Organization | | | | + + + + + | [facility] | [address] | [place] [address] | | | SERVICES, JUAN | [address] | | | + + + + + BASIC METABOLIC SET (NA, K, CL, TCO2, BUN, CR, GLU, CA) (08/20/2012 4:54 AM PST) + + + + + [...] + + + | BUN, PLASMA | 32 (H) | 6 - 20 mg/dL | [facility] | | | (LAB) | | | LABORATORY | | | | | | SERVICES, | | | | | | CORE | | + + + + + + | CREATININE | 3.08 (H) | 0.70 - 1.30 | [facility] | [...] + + + + | POTASSIUM, | 5.2 (H) | 3.4 - 5.0 | [facility] | | | PLASMA | | mmol/L | LABORATORY | | | (LAB) | | | SERVICES, | | | | | | CORE | | + + + + + + | CHLORIDE, | 98 [...] + + | CALCIUM, | 8.6 | 8.6 - 10.2 | [facility] | | | PLASMA | | mg/dL | LABORATORY | | | (LAB) | | | SERVICES, | | | | | | CORE | | + + + + + + | ANION GAP | 11 | 4 - 11 mmol/L | [facility] | | | | | | LABORATORY | | | | | | SERVICES, | | | | | | CORE | | + + + + + + | POTASSIUM | No [...] | + + + + + | [facility] | [address] | [place] [address] | | | SERVICES, CORE | [address] | | | + + + + + CAPILLARY BLOOD GLUCOSE (NO CHG), POC (08/19/2012 1:28 PM PST) + +---------+ + + + | Component | Value | Ref Range | Performed | Pathologist | | | | | At | Signature | + +---------+ + + + | BLOOD | 120 (H) | 60 - 99 mg/dL | [...] + + + + + | [facility] | [address] | [place], [place] | | | [facility] | [address] | [address] | | | TESTS | | | | + + + + + CAPILLARY BLOOD GLUCOSE (NO CHG), POC (08/19/2012 12:20 PM PST) + +---------+ + + + | Component | Value | Ref Range | Performed | Pathologist | | | | | At | Signature | + +---------+ + + + | BLOOD | 114 (H) | 60 - 99 mg/dL | [...] [facility] | [address] | [place], [place] | | | [facility] | [facility] | [phone] | | | TESTS | | | | + + + + + documented in this encounter Visit Diagnoses + + | Diagnosis | + + | Recurrent ventral incisional hernia - Primary Incisional hernia without mention of | | obstruction or gangrene | + + | Ventral hernia Ventral hernia, unspecified, without mention of obstruction or | | gangrene | + + | Chronic mastoiditis | + + | Falls frequently Personal history of fall | + + | Morbid obesity (HCC) Morbid obesity | + + | Asthma | + + | HTN (hypertension) Unspecified essential hypertension | + + | PTSD (post-traumatic stress disorder) Posttraumatic stress disorder | + + | Bipolar affective disorder (HCC) Bipolar disorder, unspecified | + + | SUSAN (obstructive sleep apnea) Obstructive sleep apnea (adult) (pediatric) | + + | Reactive airway disease Unspecified asthma | + + | Nausea & vomiting Nausea with vomiting | + + | Chronic pain Other chronic pain | + + | Chronic airway obstruction, not elsewhere classified | + + documented in this encounter Administered Medications + +---------+ + +--------+------+ | Medication Order | MAR | Action | Dose | Rate | Site | | | Action | Date | | | | + +---------+ + +--------+------+ | acetaminophen (aka OFIRMEV) IV | New Bag | 08/20/ | 1,000 mg | mL/hr | | | 1,000 mg 1,000 mg, intravenous, | | 13 5:39 | | | | | EVERY 6 HOURS, 4 doses, First | | PM PST | | | | | dose on Lindsay 08/19/12 at 2100, Last | | | | | | | dose on Thu08/20/12 at 1600 | | | | | | + +---------+ + +--------+------+ +---------+ + +--------+---+ | New Bag | 08/20/19 | 1,000 mg | mL/hr | | | | 13 10:25 | | | | | | AM PST | | | | +---------+ + +--------+---+ | New Bag | 08/20/19 | 1,000 mg | mL/hr | | | | 13 4:49 | | | | | | AM PST | | | | +---------+ + +--------+---+ +---+---+ | | | +---+---+ + +---------+ + +--------+---+ | acetaminophen (aka ANTOINE) IV | New Bag | 08/23/19 | 1,000 mg | mL/hr | | | 1,000 mg 1,000 mg, intravenous, | | 13 6:39 | | | | | EVERY 8 HOURS, First dose on Sun | | AM PST | | | | | 08/22/12 at 1245, Until | | | | | | | Discontinued | | | | | | + +---------+ + +--------+---+ +---------+ + +--------+---+ | New Bag | 08/22/19 | 1,000 mg | mL/hr | | | | 13 9:31 | | | | | | PM PST | | | | +---------+ + +--------+---+ | New Bag | 08/22/19 | 1,000 mg | mL/hr | | | | 13 12:40 | | | | | | PM PST | | | | +---------+ + +--------+---+ +---+---+ | | | +---+---+ + +-------+ +--------+---+---+ | acetaminophen (aka TYLENOL) | Given | 08/24/19 | 650 mg | | | | tablet 650 mg 650 mg, oral, | | 13 5:20 | | | | | EVERY 6 HOURS, First dose on Mon | | AM PST | | | | | 08/23/12 at 1015, Until | | | | | | | Discontinued | | | | | | + +-------+ +--------+---+---+ +-------+ +--------+---+---+ | Given | 08/23/19 | 650 mg | | | | | 13 10:07 | | | | | | PM PST | | | | +-------+ +--------+---+---+ | Given | 08/23/19 | 650 mg | | | | | 13 5:09 | | | | | | PM PST | | | | +-------+ +--------+---+---+ +---+---+ | | | +---+---+ + +-------+ +--------+---+---+ | acetaminophen (aka TYLENOL) | Given | 08/28/19 | 650 mg | | | | tablet 650 mg 650 mg, oral, | | 13 1:02 | | | | | EVERY 6 HOURS NEEDED, Starting | | PM PST | | | | | 08/24/12 at 0657, Until Sat | | | | | | | 08/28/12 at 1919, mild pain | | | | | | + +-------+ +--------+---+---+ +-------+ +--------+---+---+ | Given | 08/27/19 | 650 mg | | | | | 13 9:16 | | | | | | PM PST | | | | +-------+ +--------+---+---+ | Given | 08/27/19 | 650 mg | | | | | 13 5:12 | | | | | | AM PST | | | | +-------+ +--------+---+---+ +---+---+ | | | +---+---+ + +-------+ +---------+---+---+ | albuterol (aka PROVENTIL, | Given | 08/26/19 | 4 puffs | | | | VENTOLIN) 90 mcg/actuation | | 13 3:06 | | | | | inhaler 4 Puff 4 puff, | | AM PST | | | | | inhalation, EVERY 4 HOURS | | | | | | | NEEDED, Starting 08/22/12 at | | | | | | | 1226, Until 08/28/12 at 1919, | | | | | | | dyspnea/SOB | | | | | | + +-------+ +---------+---+---+ +-------+ +---------+---+---+ | Given | 08/22/19 | 4 puffs | | | | | 13 4:11 | | | | | | PM PST | | | | +-------+ +---------+---+---+ | Given | 08/22/19 | 4 puffs | | | | | 13 12:29 | | | | | | PM PST | | | | +-------+ +---------+---+---+ + +---+ | | | + +---+ | albuterol (aka PROVENTIL, | | | VENTOLIN) 90 mcg/actuation | | | inhaler 1 dose, Starting Sun | | | 08/22/12 at 1228, Until Sun | | | 08/22/12 at 1229 | | + +---+ | | | + +---+ + +-------+ +-------+---+---+ | bisacodyl (loli DULCOLAX) | Given | 08/22/19 | 10 mg | | | | suppository 10 mg 10 mg, rectal, | | 13 3:34 | | | | | ONCE, 1 dose, 08/22/12 at | | PM PST | | | | | 0930 | | | | | | + +-------+ +-------+---+---+ +---+---+ | | | +---+---+ + +-------+ +--------+---+---+ | carBAMazepine (aka TEGRETOL) | Given | 08/28/19 | 200 mg | | | | tablet 200 mg 200 mg, oral, | | 13 9:55 | | | | | TWICE DAILY, First dose on Lindsay | | AM PST | | | | | 08/19/12 at 2100, Until | | | | | | | Discontinued | | | | | | + +-------+ +--------+---+---+ +-------+ +--------+---+---+ | Given | 08/27/19 | 200 mg | | | | | 13 9:04 | | | | | | PM PST | | | | +-------+ +--------+---+---+ | Given | 08/27/19 | 200 mg | | | | | 13 9:51 | | | | | | AM PST | | | | +-------+ +--------+---+---+ +---+---+ | | | +---+---+ + +-------+ +-------+---+---+ | cyclobenzaprine (aka FLEXERIL) | Given | 08/28/19 | 10 mg | | | | tablet 10 mg 10 mg, oral, THREE | | 13 10:12 | | | | | TIMES DAILY NEEDED, Starting | | AM PST | | | | | Lindsay 08/19/12 at 1517, Until Sat | | | | | | | 08/28/12 at 1919, muscle spasms | | | | | | + +-------+ +-------+---+---+ +-------+ +-------+---+---+ | Given | 08/27/19 | 10 mg | | | | | 13 7:44 | | | | | | PM PST | | | | +-------+ +-------+---+---+ | Given | 08/27/19 | 10 mg | | | | | 13 10:03 | | | | | | AM PST | | | | +-------+ +-------+---+---+ +---+---+ | | | +---+---+ + +-------+ +---------+---+---+ | dexamethasone 0.1 % ophthalmic | Given | 08/27/19 | 3 drops | | | | drops 3 Drop 3 drop, Both Ears, | | 13 10:02 | | | | | TWICE DAILY, First dose on [facility] | | AM PST | | | | | 08/19/12 at 2100, Until | | | | | | | Discontinued | | | | | | + +-------+ +---------+---+---+ +-------+ +---------+---+---+ | Given | 08/25/19 | 3 drops | | | | | 13 8:16 | | | | | | AM PST | | | | +-------+ +---------+---+---+ | Given | 08/24/19 | 3 drops | | | | | 13 9:22 | | | | | | PM PST | | | | +-------+ +---------+---+---+ +---+---+ | | | +---+---+ + +-------+ +--------+---+---+ | docusate sodium (aka COLACE) | Given | 08/27/19 | 100 mg | | | | capsule 100 mg 100 mg, oral, | | 13 9:51 | | | | | TWICE DAILY, First dose on Thu | | AM PST | | | | | 08/19/12 at 2100, Until | | | | | | | Discontinued | | | | | | + +-------+ +--------+---+---+ +-------+ +--------+---+---+ | Given | 08/26/19 | 100 mg | | | | | 13 8:48 | | | | | | PM PST | | | | +-------+ +--------+---+---+ | Given | 08/26/19 | 100 mg | | | | | 13 9:29 | | | | | | AM PST | | | | +-------+ +--------+---+---+ +---+---+ | | | +---+---+ + +-------+ +--------+---+---+ | dronabinol (aka MARINOL) | Given | 08/28/19 | 2.5 mg | | | | capsule 2.5 mg 2.5 mg, oral, | | 13 6:32 | | | | | TWICE DAILY BEFORE MEALS, First | | AM PST | | | | | dose on [facility] 08/26/12 at 1700, | | | | | | | Until Discontinued | | | | | | + +-------+ +--------+---+---+ +-------+ +--------+---+---+ | Given | 08/27/19 | 2.5 mg | | | | | 13 4:29 | | | | | | PM PST | | | | +-------+ +--------+---+---+ | Given | 08/27/19 | 2.5 mg | | | | | 13 5:14 | | | | | | AM PST | | | | +-------+ +--------+---+---+ +---+---+ | | | +---+---+ + +-------+ +--------+---+---+ | dronabinol (aka MARINOL) | Given | 08/26/19 | 2.5 mg | | | | capsule 2.5 mg 2.5 mg, oral, | | 13 1:34 | | | | | ONCE, 1 dose, [facility] 08/26/12 at 1330 | | PM PST | | | | + +-------+ +--------+---+---+ +---+---+ | | | +---+---+ + +-------+ +-------+---+---+ | enoxaparin (aka LOVENOX) | Given | 08/27/19 | 40 mg | | | | injection 40 mg 40 mg, | | 13 9:05 | | | | | subcutaneous, EVERY EVENING, | | PM PST | | | | | First dose on Thu08/20/12 at | | | | | | | 2100, Until Discontinued | | | | | | + +-------+ +-------+---+---+ +-------+ +-------+---+---+ | Given | 08/26/19 | 40 mg | | | | | 13 8:49 | | | | | | PM PST | | | | +-------+ +-------+---+---+ | Given | 08/25/19 | 40 mg | | | | | 13 9:18 | | | | | | PM PST | | | | +-------+ +-------+---+---+ +---+---+ | | | +---+---+ + +---------+ +--------+--------+---+ | fentaNYL citrate (PF) (aka | New Bag | 08/19/19 | 50 mcg | mL/hr | | | SUBLIMAZE) injection 50 mcg 50 | | 13 4:49 | | | | | mcg, intravenous, POSTPROCEDURE | | PM PST | | | | | PRN, Starting [place] 08/19/12 at | | | | | | | 1249, Until [place] 08/19/12 at 1744, | | | | | | | moderate pain | | | | | | + +---------+ +--------+--------+---+ +---------+ +--------+--------+---+ | New Bag | 08/19/19 | 25 mcg | mL/hr | | | | 13 4:44 | | | | | | PM PST | | | | +---------+ +--------+--------+---+ | New Bag | 08/19/19 | 25 mcg | mL/hr | | | | 13 4:38 | | | | | | PM PST | | | | +---------+ +--------+--------+---+ +---+---+ | | | +---+---+ + +---------+ +--------+--------+---+ | fentaNYL citrate (PF) (aka | New Bag | 08/19/19 | 50 mcg | mL/hr | | | SUBLIMAZE) injection 50 mcg 50 | | 13 6:02 | | | | | mcg, intravenous, POSTPROCEDURE | | PM PST | | | | | PRN, Starting [place] 08/19/12 at | | | | | | | 1743, Until [place] 08/19/12 at 1934, | | | | | | | moderate pain | | | | | | + +---------+ +--------+--------+---+ +---------+ +--------+--------+---+ | New Bag | 08/19/19 | 50 mcg | mL/hr | | | | 13 6:00 | | | | | | PM PST | | | | +---------+ +--------+--------+---+ + +---+ | | | + +---+ | fentaNYL citrate (PF) (aka | | | SUBLIMAZE) injection 1 dose, | | | Starting [place] 08/19/12 at 1557, | | | Until [place] 08/19/12 at 1600 | | + +---+ | | | + +---+ + +-------+ +--------+---+---+ | fluticasone-salmeterol (aka | Given | 08/19/19 | 1 puff | | | | ADVAIR) 250-50 mcg/dose inhaler 1 | | 13 11:30 | | | | | Puff 1 puff, inhalation, TWICE | | PM PST | | | | | DAILY, First dose on Thu08/19/12 | | | | | | | at 2230, Until Discontinued | | | | | | + +-------+ +--------+---+---+ +---+---+ | | | +---+---+ + +-------+ +--------+---+---+ | fluticasone-salmeterol (aka | Given | 08/28/19 | 1 puff | | | | ADVAIR) 250-50 mcg/dose inhaler 1 | | 13 10:02 | | | | | Puff 1 puff, inhalation, TWICE | | AM PST | | | | | DAILY, First dose on Thu08/20/12 | | | | | | | at 0900, Until Discontinued | | | | | | + +-------+ +--------+---+---+ +-------+ +--------+---+---+ | Given | 08/27/19 | 1 puff | | | | | 13 9:05 | | | | | | PM PST | | | | +-------+ +--------+---+---+ | Given | 08/27/19 | 1 puff | | | | | 13 9:52 | | | | | | AM PST | | | | +-------+ +--------+---+---+ +---+---+ | | | +---+---+ + +-------+ +--------+---+---+ | gabapentin (aka NEURONTIN) | Given | 08/28/19 | 700 mg | | | | capsule 700 mg 700 mg, oral, | | 13 8:55 | | | | | TWICE DAILY, First dose on Thu | | AM PST | | | | | 08/20/12 at 2100, Until | | | | | | | Discontinued | | | | | | + +-------+ +--------+---+---+ +-------+ +--------+---+---+ | Given | 08/27/19 | 700 mg | | | | | 13 9:05 | | | | | | PM PST | | | | +-------+ +--------+---+---+ | Given | 08/27/19 | 700 mg | | | | | 13 9:50 | | | | | | AM PST | | | | +-------+ +--------+---+---+ +---+---+ | | | +---+---+ + +-------+ +--------+---+---+ | gabapentin (aka NEURONTIN) | Given | 08/20/19 | 800 mg | | | | capsule 800 mg 800 mg, oral, | | 13 8:11 | | | | | THREE TIMES DAILY, First dose on | | AM PST | | | | | [place] 08/19/12 at 1700, Until | | | | | | | Discontinued | | | | | | + +-------+ +--------+---+---+ +-------+ +--------+---+---+ | Given | 08/19/19 | 800 mg | | | | | 13 10:04 | | | | | | PM PST | | | | +-------+ +--------+---+---+ | Given | 08/19/19 | 600 mg | | | | | 13 5:13 | | | | | | PM PST | | | | +-------+ +--------+---+---+ + +---+ | | | + +---+ | gabapentin (aka NEURONTIN) | | | tablet 1 dose, Starting [facility] | | | 08/19/12 at 1656, Until [facility] | | | 08/19/12 at 1713 | | + +---+ | | | + +---+ + +---------+ +--------+--------+---+ | HYDROmorphone 25 mg in | New Bag | 08/22/19 | 0.4 mg | mL/hr | | | preservative free NaCl 0.9% 50 mL | | 13 9:38 | | | | | DAIRY CONSULTANT infusion intravenous, | | PM PST | | | | | CONTINUOUS, Starting [place] 08/19/12 | | | | | | | at 1600, Until 08/23/12 at | | | | | | | 0624 | | | | | | + +---------+ +--------+--------+---+ +---------+ +--------+--------+---+ | New Bag | 08/21/19 | mg | mL/hr | | | | 13 1:24 | | | | | | PM PST | | | | +---------+ +--------+--------+---+ | New Bag | 08/21/19 | 0.4 mg | mL/hr | | | | 13 4:10 | | | | | | AM PST | | | | +---------+ +--------+--------+---+ + +---+ | | | + +---+ | HYDROmorphone DAIRY CONSULTANT infusion 1 | | | dose, Starting [place] 08/19/12 at | | | 1537, Until [place] 08/19/12 at 1620 | | + +---+ | | | + +---+ + +-------+ +--------+---+---+ | ibuprofen (aka MOTRIN) tablet | Given | 08/27/19 | 200 mg | | | | 200 mg 200 mg, oral, EVERY 6 | | 13 5:12 | | | | | HOURS NEEDED, Starting Mon | | AM PST | | | | | 08/23/12 at 0821, Until 08/28/12 | | | | | | | at 1919, moderate pain | | | | | | + +-------+ +--------+---+---+ +-------+ +--------+---+---+ | Given | 08/26/19 | 200 mg | | | | | 13 7:55 | | | | | | PM PST | | | | +-------+ +--------+---+---+ | Given | 08/25/19 | 200 mg | | | | | 13 2:19 | | | | | | PM PST | | | | +-------+ +--------+---+---+ +---+---+ | | | +---+---+ + +-------+ +---------+---+---+ | ipratropium (aka ATROVENT) 17 | Given | 08/25/19 | 2 puffs | | | | mcg/actuation inhaler 2 Puff 2 | | 13 9:19 | | | | | puff, inhalation, FOUR TIMES | | PM PST | | | | | DAILY NEEDED, Starting Fri | | | | | | | 08/20/12 at 0137, Until 08/28/12 | | | | | | | at 1919, wheezing, sob, cough | | | | | | + +-------+ +---------+---+---+ +-------+ +---------+---+---+ | Given | 08/24/19 | 2 puffs | | | | | 13 8:56 | | | | | | PM PST | | | | +-------+ +---------+---+---+ | Given | 08/23/19 | 2 puffs | | | | | 13 7:16 | | | | | | PM PST | | | | +-------+ +---------+---+---+ +---+---+ | | | +---+---+ + +---------+ + + +--------+ | lactated ringers IV 10 mL/hr, | New Bag | 08/19/19 | 10 mL/hr | 10 mL/hr | Right | | intravenous, PROCEDURE | | 13 10:30 | | | Hand | | CONTINUOUS, Starting [place] 08/19/12 | | AM PST | | | | | at 0915, Until [place] 08/19/12 at | | | | | | | 1934 | | | | | | + +---------+ + + +--------+ +---+---+ | | | +---+---+ + +---------+ +-------+-------+---+ | lactated ringers IV 100 mL/hr, | New Bag | 08/21/19 | 100 | 100 | | | intravenous, CONTINUOUS, | | 13 1:24 | mL/hr | mL/hr | | | Starting [facility] 08/19/12 at 1600, | | PM PST | | | | | Until 08/21/12 at 1445 | | | | | | + +---------+ +-------+-------+---+ +---------+ +-------+-------+---+ | New Bag | 08/21/19 | 100 | 100 | | | | 13 8:35 | mL/hr | mL/hr | | | | AM PST | | | | +---------+ +-------+-------+---+ | New Bag | 08/20/19 | 100 | 100 | | | | 13 8:34 | mL/hr | mL/hr | | | | PM PST | | | | +---------+ +-------+-------+---+ +---+---+ | | | +---+---+ + + + + + +---+ | lactated ringers IV 75 mL/hr, | Rate/Dos | 08/21/19 | 75 mL/hr | 75 mL/hr | | | intravenous, CONTINUOUS, Starting | e Change | 13 4:00 | | | | | 08/21/12 at 1500, Until Sun | | PM PST | | | | | 08/22/12 at 1048 | | | | | | + + + + + +---+ +---+---+ | | | +---+---+ + +---------+ + + +---+ | lactated ringers IV 50 mL/hr, | New Bag | 08/23/19 | 50 mL/hr | 50 mL/hr | | | intravenous, CONTINUOUS, Starting | | 13 10:31 | | | | | 08/22/12 at 1100, Until Tue | | AM PST | | | | | 08/24/12 at 0657 | | | | | | + +---------+ + + +---+ + + + + +---+ | Rate/Dose Change | 08/22/19 | 50 mL/hr | 50 mL/hr | | | | 13 12:03 | | | | | | PM PST | | | | + + + + +---+ +---+---+ | | | +---+---+ + +-------+ +------+---+---+ | lactulose (aka ENULAC) liquid | Given | 08/25/19 | 10 g | | | | 10 g 10 g (15 mL), oral, ONCE, | | 13 9:18 | | | | | dose, 08/25/12 at 1800 | | PM PST | | | | + +-------+ +------+---+---+ +---+---+ | | | +---+---+ + +-------+ +------+---+---+ | lactulose (aka ENULAC) liquid | Given | 08/26/19 | 20 g | | | | 20 g 20 g (30 mL), oral, ONCE, | | 13 1:34 | | | | | dose, [facility] 08/26/12 at 1145 | | PM PST | | | | + +-------+ +------+---+---+ +---+---+ | | | +---+---+ + +-------+ +--------+---+---+ | levothyroxine tablet 25 mcg 25 | Given | 08/28/19 | 25 mcg | | | | mcg, oral, BEFORE BREAKFAST, | | 13 6:32 | | | | | First dose on Thu08/20/12 at | | AM PST | | | | | 0700, Until Discontinued | | | | | | + +-------+ +--------+---+---+ +-------+ +--------+---+---+ | Given | 08/27/19 | 25 mcg | | | | | 13 5:12 | | | | | | AM PST | | | | +-------+ +--------+---+---+ | Given | 08/26/19 | 25 mcg | | | | | 13 6:35 | | | | | | AM PST | | | | +-------+ +--------+---+---+ +---+---+ | | | +---+---+ + +-------+ +------+---+---+ | LORazepam (aka ATIVAN) tablet | Given | 08/28/19 | 1 mg | | | | 1-2 mg 1-2 mg, oral, EVERY 4 | | 13 8:55 | | | | | HOURS NEEDED, Starting Sun | | AM PST | | | | | 08/22/12 at 1212, Until 08/28/12 | | | | | | | at 1919, anxiety, insomnia, | | | | | | | muscle spasm | | | | | | + +-------+ +------+---+---+ +-------+ +------+---+---+ | Given | 08/28/19 | 1 mg | | | | | 13 2:13 | | | | | | AM PST | | | | +-------+ +------+---+---+ | Given | 08/27/19 | 1 mg | | | | | 13 9:05 | | | | | | PM PST | | | | +-------+ +------+---+---+ +---+---+ | | | +---+---+ + +-------+ +------+---+---+ | LORazepam (aka ATIVAN) tablet 2 | Given | 08/22/19 | 2 mg | | | | mg 2 mg, oral, EVERY 4 HOURS | | 13 1:23 | | | | | NEEDED, Starting [facility] 08/19/12 at | | AM PST | | | | | 1517, Until 08/22/12 at 1212, | | | | | | | anxiety, insomnia, muscle spasm | | | | | | + +-------+ +------+---+---+ +-------+ +------+---+---+ | Given | 08/21/19 | 2 mg | | | | | 13 9:38 | | | | | | PM PST | | | | +-------+ +------+---+---+ | Given | 08/21/19 | 2 mg | | | | | 13 4:37 | | | | | | PM PST | | | | +-------+ +------+---+---+ + +---+ | | | + +---+ | LORazepam (aka ATIVAN) tablet | | | 1 dose, Starting Thu08/19/12 at | | | 1710, Until Thu08/19/12 at 1715 | | + +---+ | | | + +---+ + +-------+ +-------+---+---+ | lurasidone Tab 40 mg 40 mg, | Given | 08/28/19 | 40 mg | | | | oral, DAILY, First dose on Thu | | 13 9:55 | | | | | 08/19/12 at 1800, Until | | AM PST | | | | | Discontinued | | | | | | + +-------+ +-------+---+---+ +-------+ +-------+---+---+ | Given | 08/27/19 | 40 mg | | | | | 13 9:50 | | | | | | AM PST | | | | +-------+ +-------+---+---+ | Given | 08/26/19 | 40 mg | | | | | 13 9:29 | | | | | | AM PST | | | | +-------+ +-------+---+---+ +---+---+ | | | +---+---+ + +---------+ +-----+--------+---+ | magnesium sulfate IV 2 g 2 g, | New Bag | 08/21/19 | 2 g | mL/hr | | | intravenous, ONCE, 1 dose, Sat | | 13 4:05 | | | | | 08/21/12 at 1145 | | PM PST | | | | + +---------+ +-----+--------+---+ +---+---+ | | | +---+---+ + +-------+ +-------+---+---+ | mirtazapine (loli REMERON) | Given | 08/27/19 | 30 mg | | | | tablet 30 mg 30 mg, oral, EVERY | | 13 9:05 | | | | | EVENING, First dose on Thu | | PM PST | | | | | 08/19/12 at 2100, Until | | | | | | | Discontinued | | | | | | + +-------+ +-------+---+---+ +-------+ +-------+---+---+ | Given | 08/26/19 | 30 mg | | | | | 13 8:49 | | | | | | PM PST | | | | +-------+ +-------+---+---+ | Given | 08/25/19 | 30 mg | | | | | 13 9:18 | | | | | | PM PST | | | | +-------+ +-------+---+---+ +---+---+ | | | +---+---+ + +-------+ +---+---+---+ | nitroglycerin 0.2% ointment | Given | 08/28/19 | | | | | topical, TWICE DAILY, First dose | | 13 10:13 | | | | | on Thu08/24/12 at 1230, Until | | AM PST | | | | | Discontinued | | | | | | + +-------+ +---+---+---+ +-------+ +---+---+---+ | Given | 08/25/19 | | | | | | 13 8:22 | | | | | | AM PST | | | | +-------+ +---+---+---+ | Given | 08/24/19 | | | | | | 13 4:06 | | | | | | PM PST | | | | +-------+ +---+---+---+ +---+---+ | | | +---+---+ + +-------+ +-------+---+---+ | omeprazole (aka PRILOSEC) | Given | 08/28/19 | 20 mg | | | | capsule 20 mg 20 mg, oral, | | 13 9:55 | | | | | DAILY, First dose on Thu08/19/12 | | AM PST | | | | | at 1715, Until Discontinued | | | | | | + +-------+ +-------+---+---+ +-------+ +-------+---+---+ | Given | 08/27/19 | 20 mg | | | | | 13 9:51 | | | | | | AM PST | | | | +-------+ +-------+---+---+ | Given | 08/26/19 | 20 mg | | | | | 13 9:29 | | | | | | AM PST | | | | +-------+ +-------+---+---+ +---+---+ | | | +---+---+ + +---------+ +------+--------+---+ | ondansetron (aka ZOFRAN) | New Bag | 08/28/19 | 4 mg | mL/hr | | | injection 4 mg 4 mg, | | 13 9:50 | | | | | intravenous, EVERY 12 HOURS | | AM PST | | | | | NEEDED, Starting [facility] 08/19/12 at | | | | | | | 2000, Until 08/28/12 at 1919, | | | | | | | nausea/vomiting | | | | | | + +---------+ +------+--------+---+ +---------+ +------+--------+---+ | New Bag | 08/27/19 | 4 mg | mL/hr | | | | 13 11:12 | | | | | | AM PST | | | | +---------+ +------+--------+---+ | New Bag | 08/26/19 | 4 mg | mL/hr | | | | 13 1:29 | | | | | | PM PST | | | | +---------+ +------+--------+---+ +---+---+ | | | +---+---+ + +-------+ +-------+---+---+ | oxyCODONE (immediate release) | Given | 08/28/19 | 20 mg | | | | (aka ROXICODONE) tablet 5-20 mg | | 13 1:02 | | | | | 5-20 mg, oral, EVERY 4 HOURS | | PM PST | | | | | NEEDED, Starting 08/23/12 at | | | | | | | 0624, Until 08/28/12 at 1919, | | | | | | | severe pain | | | | | | + +-------+ +-------+---+---+ +-------+ +-------+---+---+ | Given | 08/28/19 | 20 mg | | | | | 13 6:33 | | | | | | AM PST | | | | +-------+ +-------+---+---+ | Given | 08/28/19 | 20 mg | | | | | 13 2:13 | | | | | | AM PST | | | | +-------+ +-------+---+---+ +---+---+ | | | +---+---+ + +-------+ + +---+---+ | peg-electrolyte (akmarta GODINEZ) | Given | 08/27/19 | 4,000 mL | | | | liquid 4,000 mL 4,000 mL, oral, | | 13 10:32 | | | | | ONCE, 1 dose, Thu08/27/12 at 0745 | | AM PST | | | | + +-------+ + +---+---+ +---+---+ | | | +---+---+ + +-------+ +------+---+---+ | polyethylene glycol (aka | Given | 08/23/19 | 17 g | | | | MIRALAX) powder 17 g 17 g, oral, | | 13 9:32 | | | | | DAILY, First dose on Thu08/20/12 | | AM PST | | | | | at 0900, Until Discontinued | | | | | | + +-------+ +------+---+---+ +-------+ +------+---+---+ | Given | 08/22/19 | 17 g | | | | | 13 9:07 | | | | | | AM PST | | | | +-------+ +------+---+---+ | Given | 08/21/19 | 17 g | | | | | 13 8:30 | | | | | | AM PST | | | | +-------+ +------+---+---+ +---+---+ | | | +---+---+ + +-------+ +------+---+---+ | polyethylene glycol (aka | Given | 08/27/19 | 17 g | | | | MIRALAX) powder 17 g 17 g, oral, | | 13 9:49 | | | | | TWICE DAILY, First dose on Thu | | AM PST | | | | | 08/24/12 at 0900, Until | | | | | | | Discontinued | | | | | | + +-------+ +------+---+---+ +-------+ +------+---+---+ | Given | 08/26/19 | 17 g | | | | | 13 9:31 | | | | | | AM PST | | | | +-------+ +------+---+---+ | Given | 08/25/19 | 17 g | | | | | 13 9:18 | | | | | | PM PST | | | | +-------+ +------+---+---+ +---+---+ | | | +---+---+ + +-------+ +------+---+---+ | prazosin (aka MINIPRESS) | Given | 08/28/19 | 2 mg | | | | capsule 2 mg 2 mg, oral, TWICE | | 13 9:55 | | | | | DAILY, First dose on Thu08/19/12 | | AM PST | | | | | at 2100, Until Discontinued | | | | | | + +-------+ +------+---+---+ +-------+ +------+---+---+ | Given | 08/27/19 | 2 mg | | | | | 13 9:06 | | | | | | PM PST | | | | +-------+ +------+---+---+ | Given | 08/27/19 | 2 mg | | | | | 13 9:50 | | | | | | AM PST | | | | +-------+ +------+---+---+ +---+---+ | | | +---+---+ + +-------+ +------+---+---+ | prochlorperazine (aka | Given | 08/28/19 | 5 mg | | | | COMPAZINE) tablet 5 mg 5 mg, | | 13 9:55 | | | | | oral, EVERY 6 HOURS NEEDED, | | AM PST | | | | | Starting [place] 08/26/12 at 1707, | | | | | | | Until 08/28/12 at 1919, | | | | | | | nausea/vomiting | | | | | | + +-------+ +------+---+---+ +-------+ +------+---+---+ | Given | 08/26/19 | 5 mg | | | | | 13 8:50 | | | | | | PM PST | | | | +-------+ +------+---+---+ +---+---+ | | | +---+---+ + +---------+ +---------+--------+---+ | promethazine (aka PHENERGAN) | New Bag | 08/19/19 | 6.25 mg | mL/hr | | | injection 6.25-12.5 mg 6.25-12.5 | | 13 6:43 | | | | | mg, intravenous, POSTPROCEDURE | | PM PST | | | | | PRN, 2 doses, Starting [facility] | | | | | | | 08/19/12 at 1249, Until [facility] | | | | | | | 08/19/12 at 1934, nausea/vomiting | | | | | | + +---------+ +---------+--------+---+ + +---+ | | | + +---+ | promethazine (aka PHENERGAN) | | | injection 1 dose, Starting [facility] | | | 08/19/12 at 1841, Until [facility] | | | 08/19/12 at 1843 | | + +---+ | | | + +---+ + +-------+ +--------+---+---+ | risperiDONE (aka RISPERDAL) | Given | 08/28/19 | 0.5 mg | | | | tablet 0.5 mg 0.5 mg, oral, | | 13 9:55 | | | | | TWICE DAILY, First dose on [place] | | AM PST | | | | | 08/19/12 at 2100, Until | | | | | | | Discontinued | | | | | | + +-------+ +--------+---+---+ +-------+ +--------+---+---+ | Given | 08/27/19 | 0.5 mg | | | | | 13 9:06 | | | | | | PM PST | | | | +-------+ +--------+---+---+ | Given | 08/27/19 | 0.5 mg | | | | | 13 9:50 | | | | | | AM PST | | | | +-------+ +--------+---+---+ +---+---+ | | | +---+---+ + +-------+ + +---+---+ | senna-docusate (aka SENOKOT S) | Given | 08/27/19 | 1 tablet | | | | 8.6-50 mg 1 Tab 1 tablet, oral, | | 13 9:50 | | | | | TWICE DAILY, First dose on [place] | | AM PST | | | | | 08/19/12 at 2100, Until | | | | | | | Discontinued | | | | | | + +-------+ + +---+---+ +-------+ + +---+---+ | Given | 08/26/19 | 1 tablet | | | | | 13 8:50 | | | | | | PM PST | | | | +-------+ + +---+---+ | Given | 08/26/19 | 1 tablet | | | | | 13 9:30 | | | | | | AM PST | | | | +-------+ + +---+---+ +---+---+ | | | +---+---+ + +-------+ +-------+---+---+ | simethicone chew (aka MYLICON) | Given | 08/27/19 | 80 mg | | | | tablet 80 mg 80 mg, oral, THREE | | 13 10:03 | | | | | TIMES DAILY NEEDED, Starting | | AM PST | | | | | 08/25/12 at 1118, Until Sat | | | | | | | 08/28/12 at 1919, bloating | | | | | | + +-------+ +-------+---+---+ +-------+ +-------+---+---+ | Given | 08/26/19 | 80 mg | | | | | 13 9:30 | | | | | | AM PST | | | | +-------+ +-------+---+---+ | Given | 08/25/19 | 80 mg | | | | | 13 11:51 | | | | | | AM PST | | | | +-------+ +-------+---+---+ +---+---+ | | | +---+---+ + +-------+ + +---+---+ | sodium phosphates (loli FLORES) | Given | 08/24/19 | 1 Bottle | | | | 19-7 gram/118 mL rectal enema 1 | | 13 10:51 | | | | | Bottle 1 Bottle, rectal, ONCE, 1 | | AM PST | | | | | dose, 08/24/12 at 1115 | | | | | | + +-------+ + +---+---+ +---+---+ | | | +---+---+ + +-------+ + +---+---+ | sodium phosphates (loli FLEET) | Given | 08/25/19 | 1 Bottle | | | | 19-7 gram/118 mL rectal enema 1 | | 13 12:59 | | | | | Bottle 1 Bottle, rectal, ONCE, 1 | | PM PST | | | | | dose, 08/25/12 at 1200 | | | | | | + +-------+ + +---+---+ +---+---+ | | | +---+---+ + +-------+ +--------+---+---+ | tiotropium (loli SPIRIVA) | Given | 08/28/19 | 18 mcg | | | | inhalation 18 mcg 18 mcg, | | 13 10:05 | | | | | inhalation, DAILY, First dose on | | AM PST | | | | | 08/20/12 at 0900, Until | | | | | | | Discontinued | | | | | | + +-------+ +--------+---+---+ +-------+ +--------+---+---+ | Given | 08/27/19 | 18 mcg | | | | | 13 9:50 | | | | | | AM PST | | | | +-------+ +--------+---+---+ | Given | 08/26/19 | 18 mcg | | | | | 13 9:29 | | | | | | AM PST | | | | +-------+ +--------+---+---+ +---+---+ | | | +---+---+ documented in this encounter
--- OUTSIDE RECORDS SUMMARY | ~2019-04-25 | XMS | Encounter Summary ---
Demographics + + + | Address | [address] | | | [place] [address] | + + + | Home Phone [...] [place] | | | | | [address] | | + + + + + Care Team Providers + +------+ + | Care Repair Camer[place] Name | Role | Phone | + [...] Description | +--------+--------+ + + + | 06/04/ | Refill | Dermatology | Jac, Yuri, | Refill Request | | 2008 | | Medical at [facility] | MD [address] | | | | | Floor [address] | [place], [place] | | | | | Ave Mailcode: [id number] | [id number] | | | | | [facility] | [phone] | | | | | and Healing, | | | | | | [facility] | | | | | | Floor [place], [place] | | | | | | [address] | | | | | | [phone] | | | +--------+--------+ + + + [...] + + | 04/29/ | Diagnostic | Vp Project | Marce Meyer | | | 2019 | Visit | | Eve Briseno [address] | | | | | | [address] | | | | | | [place] | | | | | | [address] | | +--------+ + + + + documented as of this encounter Visit Diagnoses Not on filedocumented in this encounter"
--- OUTSIDE RECORDS SUMMARY | ~2019-04-25 | XMS | Encounter Summary ---
Demographics + + + | Address | [address] | | | [place] [address] | + + + | Home Phone [...] [place] | | | | | [address] | | + + + + + Care Team Providers + +------+ + | Care Chief Lifestyle Officer Name | Role | Phone | [...] | | | | | [place] [address] | | | | | | [phone] | | | | | | | [...] + + | 04/29/ | Diagnostic | Aquatics Instructor | Marce Meyer | | | 2019 | Visit | | Eve Briseno [address] | | | | | | [address] | | | | | | [place], [place] | | | | | | [address] | | +--------+ + + + + [...] + + + | BANDS % | LAST CODE STRIPER | 0 - 7 % | [facility] [...] + + + + | [facility] | And | [place] [address] | | | MEDICAL CENTER | Streets | | | + + + + + HEMOGLOBIN A1C, BLOOD (06/25/2009 5:00 PM PST) + +-------+ + + + | Component | Value | Ref Range | Performed | Pathologist | | | | | At | Signature | + +-------+ + + + | HEMOGLOBIN | 4.9 | % | [facility] | | | A1C | | | A MEDICAL | | | | | | CENTER | | + +-------+ + + + | ESTIMATED | 94 | MG/DL | [facility] | | | AVERAGE | | | [...] + + + + | [facility] | And [place] | [place] [address] | | | MEDICAL CENTER | Streets [...] + + | [facility] | [address] | [place] [address] | | | MEDICAL CENTER | Streets | | | + + + + + documented in this encounter Visit Diagnoses Not on filedocumented in this encounter"
--- OUTSIDE RECORDS SUMMARY | ~2019-04-25 | XMS | Encounter Summary ---
Demographics + + + | Address | [address] | | | [place] [address] | + + + | Home Phone [...] [place] | | | | | [address] | | + + + + + Care Team Providers + +------+ + | Care Clay Products Machine Operator Name | Role | Phone [...] W, | | | 2012 | | [facility] [address] | [address] | | | | | [address] | [facility] [place] | | | | | Mailcode: [place] | [address] | | | | | for Health and | [phone] | | | | | [facility] | | | | | | [place], [place] | | | | | | [address] | | | | | | [phone] | | | +--------+ + + + [...] + + | 04/29/ | Diagnostic | Associate Professor Of Criminal Justice | Marce Meyer | | | 2019 | Visit | | Eve Briseno [address] [place] [address] | | | | | | [address] | | | | | | [place] | | | | | | [address] | | +--------+ + + + + documented as of this encounter Visit Diagnoses Not on filedocumented in this encounter"
--- OUTSIDE RECORDS SUMMARY | ~2019-04-25 | XMS | Encounter Summary ---
Demographics + + + | Address | [address] | | | [place] [address] | + + + | Home Phone [...] [place] | | | | | [address] | | + + + + + Care Team Providers + +------+ + | Care Slot Technician Name | Role | Phone | + +------+ + | Cee Triana MD | PCP | Unavailable | + +------+ + Reason for Referral PROC - Inpatient Surgery (Routine) +--------+--------+ + + + + | Status | Reason | Specialty | Diagnoses / | Referred By | Referred To | | | | | Procedures | Contact | Contact | +--------+--------+ + + + + | Closed | | Surgery | Diagnoses | Ferronato, | Gilbert, | | | | | Recurrent | DO Nolvia | Ayana Jovel MD | | | | | ventral | [address] | [address] | | | | | hernia | [address] | Ave | | | | | Visible | [address] | [facility] [place] | | | | | peristalsis | [facility] [place] | [address] | | | | | Procedures | [address] | Phone: | | | | | REQUEST TO | Phone: | [phone] | | | | | SURGERY | [phone] | Fax: | | | | | [facility] | Fax: | [phone] | | | | | HI REPAIR | [phone] | | | | | | RECURR INCIS | | | | | | | | | | | | | | HERNIA,REDUC | | | | | | | HI REPAIR | | | | | | | INCIS HERNIA | | | | | | | W MESH HI | | | | | | | MUSCLE-SKIN | | | | | | | FLAP,TRUNK | | | | | | | HI RESECT | | | | | | | SMALL | | | | | | | INTEST,SINGL | | | | | | | RESEC/ANAS | | | +--------+--------+ + + + [...] | | | | | Ventral | DO Nolvia | [address] | | | | | hernia | [address] | [address] | | | | | Procedures | [address] | [place] | | | | | STRESS | [address] | Mailcode: | | | | | DOBUTAMINE | [place], [place] | [id number] | | | | | ECHOCARDIOGR | [address] | [address] | | | | | AM, ADULT | Phone: | Building | | | | | | [phone] | [place], [place] | | | | | | Fax: | [address] | | | | | | [phone] | Phone: | | | | | | | [phone] | +--------+--------+ + + + + Reason [...] | | | | | | | [place], [place] | | | | | | | [address] | | | | | | | Phone: | | | | | | | [phone] | | | | | | | Fax: | | | | | | | [phone] | +--------+--------+ + + + + Encounter Details +--------+---------+ + + + | Date | Type | Department | Care Team | Description | +--------+---------+ + + + | 07/07/ | Office | [facility] | Ayana Butler W, | Ventral hernia | | 2011 | Visit | Center at [facility] [address] | MD [address] | (Primary Dx) | | | | [address] | [place], [place] | | | | | Mailcode: Center | [address] | | | | | for Health and | [phone] | | | | | Healing, [address] | | | | | | [place], [place] | | | | | | [address] | | | | | | [phone] | | | +--------+---------+ + + + [...] + + + | Blood Pressure | 127/68 | 07/07/2012 4:15 PM | | | | | PST | | + + + + + | Pulse | 99 | 07/07/2012 4:15 PM | | | | | PST | | + + + + + | Temperature | 36.5 C (97.7 F) | 07/07/2012 4:15 PM | | | | | PST [...] + + + + | Weight | 124.9 kg (275 lb 6.4 | 07/07/2012 4:15 PM | | | | oz) | PST | | + + + + + | Height | - | - | | + + + + + | Body Mass Index | 35.36 | 05/21/2012 10:50 AM | | | | | PDT | | + + + + + documented in this encounter Patient Instructions Patient Instructions Lynette Servin RN - 07/07/2012 5:04 PM PSTPATIENT SURGERY INFORMATION [facility] General Surgery Office Toll-free: ext [phone] Surgery Date: August 19, 2011 Procedure: Open ventral hernia repair with mesh, component separation, excision of mesh, po ssible bowel resection Surgeon Name: Ayana Butler MD DIRECTIONS FOR SURGERY DIET Nothing to eat or drink after midnight on the night prior to surgery. Your doctor will ins truct you on what medications to take the morning of surgery. Please note: Some surgeries may require additional dietary restrictions or a bowel preparation. Your ordonez rgical team will give you additional printed instructions should these be necessary. MEDICATIONS Unless otherwise directed by your provider, do not take any Aspirin, vitamin E or non-stero idal anti-inflammatory (NSAIDs i.e. Advil, Aleve, Ibuprofen) or herbal supplements seven day s prior to your surgery. These drugs may interfere with normal blood clotting and may cause excessive bleeding and bruising during or after the surgery. Please see the list below, ulisses has a list of products that contain Aspirin, Ibuprofen, or Vitamin E If you are taking Coumadin (warfarin), Plavix or any other blood thinners please let your s urgical team know as medication changes will be necessary. If you need a pain medication for general purposes, use Tylenol as directed. If you are in doubt about any medications that you are taking, please contact our office. PRE-OP BATHING/SHOWERING - HIBICLENS (Chlorhexidine Gluconate) Bath or shower the evening before and the morning of your surgery Use the bottle of Hibiclense soap for the evening cleansing and the bottle in the mor ashlyn Wash from your neck to your toes. BE CAREFUL NOT TO WASH YOUR FACE OR HAIR WITH THIS SOLUT ION After your shower or bath do not apply lotions, powders, or deoderant SMOKING You should not smoke for four weeks prior to the procedure and two weeks after the procedur e. If you are a smoker, please speak with your provider. Smoking can significantly affect the outcome of your procedure. Smoking near the time of ordonez rgery causes a more acute narrowing of the blood vessels, which may lead to decreased blood flow to the tissue, poor healing, bad scars, or actual loss of tissue. WHEN TO ARRIVE On the day prior to surgery you will be notified of your check-in time by the Surgery Depar tment. They will call you between 3-7 pm. If you do not hear from anyone by 7 pm please call [phone]. PARKING Parking for patients is available underneath the [facility] building. Parking is also available in the [facility] Parking structure located across from the emergency depart ment; patient parking available on level 1 and 3. Metered parking is available on the top ev. CHECKING IN FOR SURGERY Hospital Admission (in-patient): Admitting Desk 9th floor of [facility] TRANSPORTATION Day Surgery: If you have had any sedation, you cannot drive. In addition, you must have someone to elvin t you and stay with you overnight the day of your procedure. Hospital Admission: You will require transportation home on the day of discharge. Pain medications and physica l activity restrictions may limit your ability to drive safely. CANCELLING YOUR PROCEDURE Please notify the general surgery office at [phone] as soon as possible should you nee d to cancel or change your surgery date. We will attempt to reschedule your procedure in a timely manner however due to a limited amount of operating room time a waiting list is not u ncommon. ILLNESS Please call our office with any signs of illness such as cold, flu, infection, fever, or s kin rash/infection anytime prior to your surgery. PRODUCTS CONTAINING ASPIRIN Traci-Washington, Anacin, Anexsia with Codeine, Andynos, Aspirin, Aspirin suppositories, Ascrip tin, Aspergum, Axotal, B-A-C, Baby Aspirin, Khoi, BC Powder, Bexophene, Buffaprin, Bufferin , Buffinol, Cama-Arthritis Strength, Congespirin, [place], Coricidin, Damason, Darvon, Drhaily, Britt-Gesic, Digel, Dolprin #3 Tablets, Donatab, Doxaphene, Duragesic, Easprin, Ecotrin, Emag rin Forte, Emiprin, Emprazil, Equagesic, Equazine M, Excedrin, Fiogesic, Fiorgen PH, Fiorice t, Fiorinal, 4-Way Cold Tablet Gemnisyn, Indocin, Liquprin, Lortab ASA, Magnaprin, Marnal, Meprobamate, Midol, Momentum, N orgesic, [place], Orphengesic, Pabalate, P-A-C, Percodan, Presalin, Robaxasil, Roxiprin, Reece eto, Salocol SK-65 Compound, Sine-Aid, Sine-Off,, [place], Supac, Talwin Compound, Trigesic, Tolectin , Traiminicin, Vanquish, ZORprin, Zomax PRODUCTS CONTAINING IBUPROFEN Advil, Aleve, Haltran, Medipren, Midol, Motrin, Naproxyn, Nuprin, Rufen OTHER PRODUCTS WHICH MAY PROMOTE BLEEDING Vitamin E, Gingko Biloba, Marine Fatty Acids, [place]-3 Fish Oil SupplementsElectronically si gned by Lynette Servin RN at 07/07/2012 5:06 PM PST documented in this encounter Progress Notes Ayana Butler MD - 07/08/2012 8:56 AM PSTI performed a history and physical examination of the patient and discussed his management with the resident. I reviewed the resident s note and agree with the documented findings and plan of care. As he has successfully quit smoking will plan for OR in the coming weeks. Stressed the eugenio efit of aggressive weight loss prior to surgery. Will plan for open hernia repair with use of biological mesh due to history of peritonitis and MOVIE SHOT CAMERAMAN for repair. MD AYANA Kennedy MD [facility] [address] Mailcode: [place] [id number] olvia Washington DO - 07/07/2012 3:56 PM PSTBlue Surgery Clinical Progress Note Author: Nolvia Washington DO Attending Surgeon: Ayana Butler MD Date: 07/07/2012 IDENTIFICATION:46 yr old male with an extensive history of previous ventral hernia repairs one complicated by bowel injury, ostomy placement, extensive wound infection with MRSA and s ubsequent ostomy take down., most recently in 2008 with recurrent umbilical hernia. INTERVAL EVENTS: prescribed Chantix, quit smoking, repeat CT abd/pelvis done. Gained 16lbs since last visit. MRSA nasal swab negative. SUBJECTIVE: Doing ok. Last cigarette was just before . Has been trying to lose weight by doing yardwork but difficult due to his chronic pain. REVIEW OF SYSTEMS: A full 10 point review of systems was completed and is negative, except for the pertinent p ositives and negatives as noted above in the history of present illness. MEDICATIONS: Current outpatient prescriptions:ALBUTEROL SULFATE, BULK, MISC, , Disp: , Rfl: Aspirin 81 mg Oral tablet, Take 1 Tab by mouth once daily., Disp: 90 Tab, Rfl: 3 CALCIUM CARBONATE (TUMS 500 ORAL), Take by mouth. , Disp: , Rfl: carBAMazepine (TEGRETOL) 200 mg Oral tablet, Take 200 mg by mouth two times daily. , Disp: , Rfl: chlorhexidine gluconate (HIBICLENS) 4 % Topical Liquid, Apply 15 mL to affected area as nee ded. Scrub 3 minutes and rinse thoroughly, wash for an additional 3 minutes. , Disp: , Rfl: Cholecalciferol, Vitamin D3, (VITAMIN D3) 2,000 unit Oral capsule, Take by mouth once russell y. , Disp: , Rfl: ciprofloxacin 0.3 % Ophthalmic Drops, 3 drops into each ear 2 times a day, Disp: 10 mL, Rfl : 0 cyclobenzaprine (FLEXERIL) 10 mg Oral tablet, Take 10 mg by mouth three times daily as need ed. Do not use longer than 2-3 weeks. , Disp: , Rfl: dexamethasone 0.1 % Ophthalmic Drops, 3 drops into each ear 2 times a day., Disp: 5 mL, Rfl : 2 docusate sodium (COLACE) 100 mg Oral capsule, Take 100 mg by mouth two times daily. , Disp : , Rfl: furosemide 10 mg Oral tablet, Take 20 mg by mouth once daily. , Disp: , Rfl: gabapentin (NEURONTIN) 800 mg Oral tablet, Take 800 mg by mouth three times daily. , Disp: , Rfl: hydrochlorothiazide 25 mg Oral tablet, Take 25 mg by mouth once daily. , Disp: , Rfl: HYDROcodone-acetaminophen (VICODIN) 5-500 mg Oral tablet, Take 1 Tab by mouth every four ho urs as needed. Not to exceed 6 tablets per any 24 hour period. (Not to exceed 3250 mg of lili taminophen from all products per 24 hour period.) , Disp: , Rfl: ibuprofen 800 mg Oral tablet, Take 800 mg by mouth every six hours as needed. , Disp: , Rf l: ipratropium (ATROVENT HFA) 17 mcg/actuation Inhalation HFA Aerosol Inhaler, Inhale 2 Puffs four times daily as needed. , Disp: , Rfl: levothyroxine 25 mcg Oral tablet, Take 25 mcg by mouth before breakfast. , Disp: , Rfl: lisinopril 40 mg Oral tablet, Take 40 mg by mouth once daily. , Disp: , Rfl: LORazepam (ATIVAN) 2 mg Oral tablet, Take 2 mg by mouth every four hours as needed. , Disp : , Rfl: lovastatin 20 mg Oral tablet, Take 20 mg by mouth once daily in the evening. Administer wit h evening meal. , Disp: , Rfl: LURASIDONE HCL (LATUDA ORAL), Take by mouth. , Disp: , Rfl: metFORMIN 500 mg Oral tablet, Take 500 mg by mouth two times daily. , Disp: , Rfl: Methylcellulose Powder, , Disp: , Rfl: mirtazapine (REMERON) 30 mg Oral tablet, Take 30 mg by mouth once daily in the evening. , Disp: , Rfl: Mometasone 110 mcg (30 doses) Inhalation Aerosol Powdr Breath Activated, Inhale. , Disp: , Rfl: omeprazole (PRILOSEC) 20 mg Oral capsule,delayed release(DR/EC), Take 20 mg by mouth once d aily. , Disp: , Rfl: polyethylene glycol (MIRALAX) 17 gram Oral Powder in Packet, Take 1 Packet by mouth once da gabe. , Disp: , Rfl: prazosin 2 mg Oral capsule, Take 2 mg by mouth two times daily. , Disp: , Rfl: promethazine 25 mg Oral tablet, Take 25 mg by mouth four times daily as needed. , Disp: , Rfl: traMADol 50 mg Oral tablet, Take 50 mg by mouth every six hours as needed. , Disp: , Rfl: trimethoprim-sulfamethoxazole (BACTRIM DS) 160-800 mg Oral tablet, Take 1 Tab by mouth two times daily. , Disp: , Rfl: varenicline (CHANTIX) 0.5 (11)-1 (42) mg Oral tablets,dose pack, Take 0.5 mg daily for 3 da ys, then increase to 0.5 mg twice daily for 4 days, then increase to 1 mg twice daily., Disp : 1 Package, Rfl: 0 OBJECTIVE: Vital Signs: T 36.5 BP 127/68 P 99 BMI 35 Wt 275lbs Physical Exam: General: NAD, Alert, DELEON. Chest: Even and symmetrical respiratory effect. Mild SOB. Cardiac: Tachy, regular GI: Soft, non-tender, non-distended. Lower incisional hernia, ~5cm x 6cm, thin skin overlyi ng. Visible peristalsing bowel. Skin: WWP ASSESSMENT and PLAN: Mr Edgar Marquez is a 46yr old male with a long surgical history of ventral hernia repairs associated with multiple compications, most recently in February 2009, here for consultation o f repair of recurrent ventral hernia. Pt history shows an extensive history of complications from operations including wound dehiscence and infection. Since his last visit the patient has stopped smoking. He has gained some weight (not unexpectedly) but is trying to lose weig ht with light exercise as tolerated given his other chronic conditions. He has an appointmen t with the electronic console display operator next week. Given his steps towards smoking cessation and weight loss, i t is reasonable to proceed with surgery, specifically an open ventral hernia repair with exc ision of old mesh, component separation, possible bowel resection, possible placement of mes h (likely biologic given his prior history). Extensive PARQ held with patient regarding risk s of surgery given his complex history and prior abdominal surgeries. Discussion included bu t not limited to risks of bleeding, infection, damage to surrounding structures, the likely need for possible small bowel resection in order to excise his old mesh, need for re-operati on and risks of hernia recurrence. Patient expressed understanding and wishes to proceed. -- PARQ held, consent obtained -- Will need stress ECHO -- PAT clinic -- Plan for open ventral hernia repair with excision of old mesh, component separation, po ssible bowel resection, possible placement of mesh on 08/19/12 This patient was seen and discussed with Dr. Ayana Butler MD who agrees with the above pl an. Nolvia Washington, DO General Surgery R2 [id number] documented in this en counter Plan of Treatment +--------+ + + + + | Date | Type | Specialty | Care Team | Description | +--------+ + + + + | 04/29/ | Diagnostic | City Administrator | Marce Meyer | | | 2019 | Visit | | Eve Briseno [address] | | | | | | [address] | | | | | | [place], [place] | | | | | | [address] | | +--------+ + + + + [...] + + documented in this encounter Results STRESS DOBUTAMINE ECHOCARDIOGRAM, ADULT (08/13/2012 12:00 AM PST) + + + | Narrative | Performed At | + + + | | | | | | + + + + + | Procedure Note | + + | Tania Martins - 08/13/2012 5:17 PM PST | + + documented in this encounter Visit Diagnoses + + | Diagnosis | + + | Ventral hernia - Primary Ventral hernia, unspecified, without mention of obstruction | | or gangrene | + + documented in this encounter"
--- OUTSIDE RECORDS SUMMARY | ~2019-04-25 | XMS | Encounter Summary ---
Demographics + + + | Address | [address] | | | [place] [address] | + + + | Home Phone [...] [place] | | | | | [address] | | + + + + + Care Team Providers + +------+ + | Care Manager Of Software Name | Role | Phone | + [...] [place] | | | | | | [address] | | | | | | [phone] | | | | | | | [...] + + | 04/29/ | Diagnostic | Model Technician | Marce Meyer | | | 2019 | Visit | | Eve Briseno [address] | | | | | | [address] | | | | | | [place], [place] | | | | | | [address] | | +--------+ + + + + [...] | Results for this | | CHEST [address] | e | 9:58 PM | | [...] + + | [facility] | And | [place] [address] | | | MEDICAL CENTER | Streets [...] | + + + + + | [facility] | [address] | [place] [address] | | | [facility] [place] | Streets | | | + + + + + ABDOMEN 2 [address] CHEST [address] (12/15/2008 9:58 PM PDT) + + | [...] + + + + | COUMADIN | CONSUMER SERVICES ADVISOR | | [facility] | | | CURRENT | | | A MEDICAL | | | DOSE | | | CENTER | | + + + + + + | LAST DOSE | CONSUMER SERVICES ADVISOR | | [facility] | | | DATE | | | A MEDICAL | | | | | | CENTER | | + + + + + + | LAST DOSE | CONSUMER SERVICES ADVISOR | | [facility] | | | TIME | | | A MEDICAL | | | | | | CENTER | | + + + + + + | LAST DOSE | CONSUMER SERVICES ADVISOR | | [facility] | | | DATE | | | A MEDICAL | | | | | | CENTER | | + + + + + + | LAST DOSE | CONSUMER SERVICES ADVISOR | | [facility] | | | TIME [...] | + + + + + | [facility] | And | [place] [address] | | | [facility] | Streets | | | + [...] + + + | BANDS % | CONSUMER SERVICES ADVISOR | 0 - 7 % | [facility] [...] | + + + + + | [facility] | And | [place] [address] | | | MEDICAL CENTER | Streets [...] 138 | 137 - [address] MEQ/L | [facility] | | | PLASMA | | | [...] + + + | [facility] | [place] | [place] [address] | | | MEDICAL CENTER | Streets [...] | [facility] | And | [place] [address] | | | MEDICAL CENTER | Streets | | | + + + + + documented in this encounter Visit Diagnoses Not on filedocumented in this encounter"
--- OUTSIDE RECORDS SUMMARY | ~2019-04-25 | XMS | Encounter Summary ---
Demographics + + + | Address | [address] | | | [place] [address] | + + + | Home Phone [...] [place] | | | | | [address] | | + + + + + Care Team Providers + +------+ + | Care Health Informatics Instructor Name | Role | Phone | + [...] +--------+---------+ + + + | 12/22/ | Surgery | 4N INTRA OP [address] | Willie Plunkett, | RIGHT TYMPANOPLASTY | | 2013 | | [address] | MD | WITH CANAL WALL | | | | Rd [place] | | DOWN, | | | | [facility] | | | | | | Surgery Admitting | | | | | | Desk Located on the | | | | | | 4th floor, Room | | | | | | [address] [place] [address] | | | | | | [address] | | | +--------+---------+ + + + [...] office to get your questions answered: Call [phone] during business hours. Call [phone] after 5:00pm and weekends or holidays Call: [facility] Otolaryngology Resident at If you have any [...] + + | 04/29/ | Diagnostic | High School Librarian | Marce Meyer | | | 2019 | Visit | | Eve Briseno [address] [facility] | | | | | | [address] | | | | | | [place], [place] | | | | | | [address] | | +--------+ + + + + [...] 12/22/2013ttending | | Surgeon: Willie Plunkett MD Wallpaper Inspector And Shipper(s): Rosmery Hernandez | | MD Juan Preop [...] There were no | | complications.Willie Plunkett, FMMed/JONOLDD: 12/22/2013 17:21:43DT: 12/22/2013 | | 18:57:53Job #: [id number] | |FMW/JONOL | | | | | | /[id number] | + + CAPILLARY BLOOD GLUCOSE (NO [...] LAUGHLIN | [address] | [place], [place] | | | LUCERO POINT OF CARE | [address] | [address] | | | TESTS | | | [...] MARQUAM | [address] | [place], [place] | | | LUCERO POINT OF CARE | [address] | [address] | | | TESTS | | | [...] Ph.D.PathologistElectron | | | | | | dima Signed | | | | | | 12/26/2013 2:44PM | | | | + + + + + + + + | Specimen | + + | | + + + + + + + | Performing | Address | City/State/Zipcode | Phone Number | | Organization | | | | + + + + + | [facility] | [address] | [place] [address] | | | PATHOLOGY | [address] [...] | 1,000 mg 1,000 mg, oral, ONCE, | | 14 2:53 | | | | | dose, [facility] 12/22/13 at 1530 | | PM PDT | | | | + +--------+ + +------+------+ + +---+ | | | + +---+ | acetaminophen (TYLENOL) tablet | | | 1 dose, Starting [facility] 12/22/13 at | | | 1448, Until [...] | | +---+---+ + +-------+ +------+---+---+ | EPINEPHrine (ADRENALIN) | Given | 12/23/19 | 1 mL | | | | injection INTRAPROCEDURE PRN, | | 14 4:43 | | | | | Starting Lindsay 12/22/13 at 1643, | | PM PDT | | | | | Until Lindsay 12/22/13 at 1727 | | | | | | + [...] | | | | | 1 dose, [facility] 12/22/13 at 1515 | | PM PDT | | | | + +-------+ +-------+---+---+ +---+---+ | | | +---+---+ + +---------+ + + +---+ | lactated ringers IV 10 mL/hr, | New Bag | 12/23/19 | 10 mL/hr | 10 mL/hr | | | intravenous, PROCEDURE | | 14 12:57 | | | | | CONTINUOUS, Starting Lindsay 12/22/13 | | PM PDT | | | | | at 1245, Until Thu12/23/13 at | | | | | | | 0033 | | | | | | + +---------+ + + +---+ +---+---+ | | | +---+---+ + +-------+ +------+---+---+ | lidocaine-EPINEPHrine | Given | 12/23/19 | 4 mL | | | | (XYLOCAINE WITH EPINEPHRINE) 1 | | 14 4:44 | | | | | %-1:100,000 injection | | PM PDT | | | | | INTRAPROCEDURE PRN, Starting Lindsay | | | | | | | 12/22/13 at 1644, Until Lindsay | | | | | | | 12/22/13 at 1727 | | | | | | + +-------+ +------+---+---+ +---+---+ | | | +---+---+ + +-------+ +---------+---+---+ | mupirocin (BACTROBAN) 2 % | Given | 12/23/19 | 1 strip | | | | ointment INTRAPROCEDURE PRN, | | 14 5:06 | | | | | Starting Lindsay 12/22/13 at 1706, | | PM PDT | | | | | Until Lindsay 12/22/13 at 1727 | | | | | | + +-------+ +---------+---+---+ +---+---+ | | | +---+---+ + +---------+ +------+---+---+ | ondansetron (ZOFRAN) injection | New Bag | 12/23/19 | 4 mg | | | | 4 mg 4 mg, intravenous, ONCE, 1 | | 14 12:56 | | | | | dose, Lindsay 12/22/13 at 1330 | | PM PDT [...]
--- OUTSIDE RECORDS SUMMARY | ~2019-04-25 | XMS | Encounter Summary ---
Demographics + + + | Address | [address] | | | [place] [address] | + + + | Home Phone [...] [place] | | | | | [address] | | + + + + + Care Team Providers + +------+ + | Care Riveter Portable Machine Name | Role | Phone | + +------+ + | Kerri Chavarria NP | PCP | | + +------+ + Encounter Details +--------+ + + + + | Date | Type | Department | Care Team | Description | +--------+ + + + + | 05/31/ | Abstract | Digestive Health | Ayana Butler W, | | | 2011 | | [place] at [facility] [address] | [address] | | | | | [address] | [place], [place] | | | | | Mailcode: [place] | [address] | | | | | for Health and | [phone] | | | | | [facility] [address] | | | | | | [facility] [place] | | | | | | [address] | | | | | | [phone] | | | +--------+ + + + [...] + + | 04/29/ | Diagnostic | Briquetting Machine Operator | Marce Meyer | | | 2019 | Visit | | Eve Briseno [address] [facility] | | | | | | [address] | | | | | | [place] | | | | | | [address] | | +--------+ + + + + documented as of this encounter Visit Diagnoses Not on filedocumented in this encounter"
--- OUTSIDE RECORDS SUMMARY | ~2019-04-25 | XMS | Encounter Summary ---
Demographics + + + | Address | [address] | | | [place] [address] | + + + | Home Phone [...] [place] | | | | | [address] | | + + + + + Care Team Providers + +------+ + | Care Boxing Trainer Name | Role | Phone | + +------+ + | Cee Triana MD | PCP | Unavailable | + +------+ + Encounter Details +--------+ + + + + | Date | Type | Department | Care Team | Description | +--------+ + + + + | 11/16/ | Telephone | Digestive Health | Mahnaz Lew, | | | 2012 | | [place] at [facility] [address] | [address] | | | | | [address] | [address] | | | | | Mailcode: [place] | [place], [place] | | | | | [facility] and | [address] | | | | | [facility], [place] [address] | [phone] | | | | | [place], [place] | | | | | | [address] | | | | | | [phone] | | | +--------+ + + + [...] + + | 04/29/ | Diagnostic | Lockstitch Pocket Setter | Marce Meyer | | | 2019 | Visit | | Eve Briseno [address] | | | | | | [address] | | | | | | [place] | | | | | | [address] | | +--------+ + + + + documented as of this encounter Visit Diagnoses Not on filedocumented in this encounter"
--- OUTSIDE RECORDS SUMMARY | ~2019-04-25 | XMS | Encounter Summary ---
Demographics + + + | Address | [address] | | | [place] [address] | + + + | Home Phone [...] [place] | | | | | [address] | | + + + + + Care Team Providers + +------+ + | Care Hatchery Manager Name | Role | Phone | [...] + | 04/29/ | Diagnostic | Cash Management Clerk | Marce Meyer | | | 2019 | Visit | | Eve Briseno [address] | | | | | | [address] | | | | | | [place], [place] | | | | | | [address] | | +--------+ + + + + [...] Site:[facility] | | | | | | [facility] [address] | | | | | | [facility] | | | | | | [place], [place] | | | | | | [...] + | [facility] | [address] | [place] [address] | | | [facility] | Streets | | | + [...] | | | | DIAGNOSTICS- | | -SHOW LOW | | | | [address] | | | | | | [place], | | | | | | [place] [id number] | | | | | | : ASHLEY HORTON MD | | | | + + + + + + + + | Specimen | + + | | + + + + + + + | Performing | Address | City/State/Zipcode | Phone Number | | Organization | | | | + + + + + | [facility] | [address] | [place] [address] | [phone] | | DIAGNOSTICS-[facility]OW [facility] | | | | + + + + + | [facility] | | | | | DI[facility]NOSTICS[facility] | | | | + + + [...] + + + + | WBC, | STRANDING SUPERVISOR | X10 3/uL | [facility] | | [...] + + + | BANDS % | STRANDING SUPERVISOR | 0 - 7 % | [facility] [...] + + + + | BASOPHIL%, | STRANDING SUPERVISOR | 0 - 1 % | [facility] | | | MANUAL | | | A MEDICAL | | | | | | CENTER | | + + + + + + | REACTIVE | STRANDING SUPERVISOR | 0.0 - 4.0 % | [facility] | | | LYMPHS % | | | A MEDICAL | | | | | | CENTER | | + + + + + + | BANDS % | STRANDING SUPERVISOR | 0 - 7 % | [facility] | | | | | | A MEDICAL | | | | | | CENTER | | + + + + + + | METAMYELOCY | STRANDING SUPERVISOR | 0 - 0 % | [facility] | | | BRANDON % | | | A MEDICAL | | | | | | CENTER | | + + + + + + | MYELOCYTES | STRANDING SUPERVISOR | 0 - 0 % | [facility] | | | % | | | A MEDICAL | | | | | | CENTER | | + + + + + + | PROMYELOCYT | STRANDING SUPERVISOR | 0 - 0 % | [facility] | | | ES % | | | A MEDICAL | | | | | | CENTER | | + + + + + + | BLASTS | STRANDING SUPERVISOR | 0 - 0 % | [facility] [...] + + + + | RBC | STRANDING SUPERVISOR | NORMAL | [facility] | | | MORPHOLOGY | | | A MEDICAL | | | | | | CENTER | | + + + + + + | WBC | STRANDING SUPERVISOR | NORMAL | [facility] | | | MORPHOLOGY | | | A MEDICAL | | | | | | CENTER | | + + + + + + | PLATELET | STRANDING SUPERVISOR | NORMAL | [facility] | | | MORPHOLOGY | | | A MEDICAL | | | | | | CENTER | | + + + + + + | NUCLEATED | STRANDING SUPERVISOR | | [facility] | | | RBCS | | | A MEDICAL | | | | | | CENTER | | + + + + + + | GIANT PLT | STRANDING SUPERVISOR | | [facility] | | | | [...] + + | [facility] | And | [place] [address] | | | [facility] | [facility] | | | + + + [...] + + + | [facility] | [address] | [place] [address] | | | MEDICAL CENTER | Streets | | | + + + + + documented in this encounter Visit Diagnoses Not on filedocumented in this encounter"
--- OUTSIDE RECORDS SUMMARY | ~2019-04-25 | XMS | Encounter Summary ---
Demographics + + + | Address | [address] | | | [place] [address] | + + + | Home Phone [...] [place] | | | | | [address] | | + + + + + Care Team Providers + +------+ + | Care Cross Tie Turner Name | Role | Phone | + +------+ + | Deidre Card | PCP | | + +------+ + Encounter Details +--------+ + + + + | Date | Type | Department | Care Team | Description | +--------+ + + + + | 01/17/ | Office | [facility] | Note, [...] as of this encounter Progress Notes Interface, Hotel General Manager In - 03/25/2006 1:11 AM PDTCLINIC DATE: 01/17/2002 ENT CLINIC HISTORY OF PRESENT ILLNESS: Edgar is seen in followup following 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 He has not been particularly treating it well, but he has used no drops to the ear; however, it has not drained nor given him any trouble. He still is profoundly hard of hearing and merits significantly an evaluation for cochlear implant. PHYSICAL EXAMINATION: The ear under the microscope shows the cavity to be clean and dry on the right. IMPRESSION AND PLAN: I think that he is an excellent candidate for cochlear implant, probably on the opposite ear; however, that has to be decided. At this particular time, no treatment is indicated, and he is to be seen for cochlear implant evaluation. Aamir Chan M.D. TONY / MALORIE [id number] / [id number] / [id number] / [id number] Tdocumented in this encounter Plan of Treatment +--------+ + + + + | Date | Type | Specialty | Care Team | Description | +--------+ + + + + | 04/29/ | Diagnostic | Bakery Products Checker | Marce Meyer | | | 2019 | Visit | | Eve Briseno [address] | | | | | | [address] | | | | | | [place] | | | | | | [address] | | +--------+ + + + + documented as of this encounter Visit Diagnoses Not on filedocumented in this encounter"
--- OUTSIDE RECORDS SUMMARY | ~2019-04-25 | XMS | Encounter Summary ---
Demographics + + + | Address | [address] | | | [place] [address] | + + + | Home Phone [...] [place] | | | | | [address] | | + + + + + Care Team Providers + +------+ + | Care Site Specialist Name | Role | Phone | + +------+ + PCP | Unavailable | + +------+ + Encounter Details +--------+ + + + + | Date | Type | Department | Care Team | Description | +--------+ + + + + | 11/22/ | Office | | Note, Outpatient | Progress Note | | 2005 | Visit-Trans | | Clinic | | [...] as of this encounter Progress Notes Interface, Accounting Systems Manager In - 02/23/2005 11:20 AM PDT [id number] [facility] Date: 11/22/2004 Clinic: DEPARTMENT OF OTOLARYNGOLOGY Subjective: Mr. Marquez, a 39-year-old with bilateral profound sensory neural hearing loss who was implanted with the Nucleus 24 device in March 2004 and had his initial activation in mid April 2004 was seen today for his 6-month followup. He comes in today complaining of some staticky noise and high frequency hissing in his processor. However, he does feel that his hearing has improved significantly. He also reports that there has been some intermittency with his device where the sound will sound adequately loud and then seem to get much softer. He will then turn the processor off, and when he turns it back on, the loudness reappears. I informed him that if this should occur on a regular to let me know, we would get him a replacement device. Objective: Threshold and comfort levels were evaluated using counting Ps. We then used live voice and a global modifier screen to adjust appropriateness for speech. I did then use the tilt function to reduce the high frequencies. We also reduced the gain from +3 to +1.5. As a result, he states that the high frequency hissing is significantly reduced. Edgar was then evaluated in sound field for narrow-band noise as well as speech perception. His thresholds across the frequency range were as follows: 250 063 072 1424 2000 3000 4000 6000 30 30 30 30 30 30 30 25 He was then administered the hearing and noise test. A presentation level is 60 dB. He received a score in quiet of 68% and a score of 38% at a +10 signal to noise ratio. On the CNC monosyllabic word list, he had a word correct score of 74% and a phoneme correct score of 84%. Analysis: Speech perception is excellent and is in the high tier of performance with cochlear implants. The high frequency hissing has been resolved. Plan: I shared these results with Edgar. Based on the distance he has to come and the fact that he must take a bus on an overnight trip, I have decided that followup visits will be on the patient's need. Edgar understands that he can contact our clinic at any time, and we would get him in for followup as soon as possible. Haroon Poe Ed.D. Petrographer DP / HS [id number] / [id number] / [id number] / [id number] Electronically signed by Haroon Poe 12-03-2004 02:24:37 PM documented i n this encounter Plan of Treatment +--------+ + + + + | Date | Type | Specialty | Care Team | Description | +--------+ + + + + | 04/29/ | Diagnostic | Contract Manager | Marce Meyer | | | 2018 | Visit | | Eve Briseno [address] | | | | | | [address] | | | | | | [place], [place] | | | | | | [address] | | +--------+ + + + + documented as of this encounter Visit Diagnoses Not on filedocumented in this encounter"
--- OUTSIDE RECORDS SUMMARY | ~2019-04-25 | XMS | Encounter Summary ---
Demographics + + + | Address | [address] | | | [place] [address] | + + + | Home Phone [...] [place] | | | | | [address] | | + + + + + Care Team Providers + +------+ + | Care Rafter Cutting Machine Operator Name | Role | Phone | + +------+ + | Cee Triana MD | PCP | Unavailable | + +------+ + Encounter Details +--------+ + + + + | Date | Type | Department | Care Team | Description | +--------+ + + + + | 12/21/ | Telephone | Digestive Health | Ayana Butler W, | | | 2012 | | Center at [facility] [address] | [address] | | | | | [address] | [facility] [place] | | | | | Mailcode: [place] | [address] | | | | | for Health and | [phone] | | | | | [facility] [address] | | | | | | [place], [place] | | | | | | [address] | | | | | | [phone] | | | +--------+ + + + [...] + + | 04/29/ | Diagnostic | Hydroelectric Systems Technician | Marce Meyer | | | 2019 | Visit | | Eve Briseno [address] [place] [address] | | | | | | [address] | | | | | | [place] | | | | | | [address] | | +--------+ + + + + documented as of this encounter Visit Diagnoses Not on filedocumented in this encounter"
--- OUTSIDE RECORDS SUMMARY | ~2019-04-25 | XMS | Encounter Summary ---
Demographics + + + | Address | [address] | | | [place] [address] | + + + | Home Phone [...] [place] | | | | | [address] | | + + + + + Care Team Providers + +------+ + | Care Junction Maker Name | Role | Phone | [...] | | 2012 | | Center at [facility] [address] | [address] | | | | | [address] [place] | [facility] [place] | | | | | Mailcode: [place] | [address] | | | | | for Health and | [phone] | | | | | [facility] [address] | | | | | | [place], [place] | | | | | | [address] | | | | | | [phone] | | | +--------+ + + + [...] + + | 04/29/ | Diagnostic | Route Service Manager | Marce Meyer | | | 2019 | Visit | | Eve Briseno [address] [place] [address] | | | | | | [address] | | | | | | [place] | | | | | | [address] | | +--------+ + + + + documented as of this encounter Visit Diagnoses Not on filedocumented in this encounter"
--- OUTSIDE RECORDS SUMMARY | ~2019-04-25 | XMS | Encounter Summary ---
Demographics + + + | Address | [address] | | | [place] [address] | + + + | Home Phone [...] [place] | | | | | [address] | | + + + + + Care Team Providers + +------+ + | Care Assurance Senior Manager Name | Role | Phone | [...] [facility] [address] | [address] [facility] | | | | | [address] | [facility] [place] | | | | | Mailcode: [address] | [address] | | | | | [facility] | | | | | | [place], [place] | | | | | | [address] | | | | | | [phone] | | | +--------+ + + + [...] + + | 04/29/ | Diagnostic | Driver Medic | Marce Meyer | | | 2019 | Visit | | Eve Briseno [address] | | | | | | [address] | | | | | | [place], [place] | | | | | | [address] | | +--------+ + + + + documented as of this encounter Visit Diagnoses Not on filedocumented in this encounter"
--- OUTSIDE RECORDS SUMMARY | ~2019-04-25 | XMS | Encounter Summary ---
Demographics + + + | Address | [address] | | | [place] [address] | + + + | Home Phone | | + + + | Preferred Language | Unknown | + + + | Marital Status | Single | + + + | Confucianism Affiliation | BAP | + + + | Race | White | + + + | Ethnic Group | Not or | + + + Author + + + | Author | [facility] | + + + | Organization | [facility] | + + + | Address | Unknown | + + + | Phone | Unavailable | + + + Support + + + + + | Name | Relationship | Address | Phone | + + + + + | Margarito Owuus | ECON | [address] | | | | | [place] | | | | | [address] | | + + + + + Care Team Providers + +------+ + | Care Accordion Repairer Name | Role | Phone | + +------+ + | Jaiosn Chávez MD | PCP | | + +------+ + Encounter Details +--------+ + + + + | Date | Type | Department | Care Team | Description | +--------+ + + + + | 08/01/ | Results | NON-[facility] | Tobias Eli, | | | 2008 | Only | Department | [address] | | | | | [place] | | | | | | [address] | | | | | | [phone] | | | | | | | [...] | 04/29/ | Diagnostic | Project Management Director | Marce Meyer | | | 2019 | Visit | | Eve Briseno [address] [facility] | | | | | | [address] | | | | | | [place], [place] | | | | | | [address] | | +--------+ + + + + documented as of this encounter Procedures + +--------+ + + + | Procedure Name | Priori | Date/Time | Associated Diagnosis | Comments | | | ty | | | | + +--------+ + + + | ABDOMEN AND PELVIS | Routin | 08/01/2008 | | Results for this | | WITH [id number] | e | 5:16 PM | | procedure are in the | | | | PST | | results section. | + +--------+ + + + | SRUTHI MUNIZ ONLY | Routin | 08/01/2008 | | Results for this | | | e | 3:12 PM | | procedure are in the | | | | PST | | results section. | + +--------+ + + + | CBC W/DIFF, REFLEX | Routin | 08/01/2008 | | Results for this | | | e | 2:00 PM | | procedure are in the | | | | PST | | results section. | + +--------+ + + + | INR | Routin | 08/01/2008 | | Results for this | | | e | 2:00 PM | | procedure are in the | | | | PST | | results section. | + +--------+ + + + | COMPLETE METABOLIC | Routin | 08/01/2008 | | Results for this | | SET | e | 2:00 PM | | procedure are in the | | (NA,K,CL,CO2,BUN,CRE | | PST | | results section. | | AT,GLUC,CA,AST,ALT,B | | | | | | TERRY TOTAL,ALK | | | | | | PHOS,ALB,PROT TOTAL) | | | | | + +--------+ + + + | TYPE AND SCREEN | Routin | 08/01/2008 | | Results for this | | | e | 2:00 PM | | procedure are in the | | | | PST | | results section. | + +--------+ + + + documented in this encounter Results ABDOMEN AND PELVIS WITH [id number] (08/01/2008 5:16 PM PST) + + | Specimen | + + | | + + + + + | Narrative | Performed At | + + + | CT ABDOMEN AND PELVIS WITH CONTRAST: CLINICAL HISTORY: Rule out | [facility] | | obstruction. Abdominal hernia. TECHNIQUE: Multiple contiguous | DEPARTMENT OF | | axial 5.0 mm images were obtained through the abdomen and pelvis | RADIOLOGY | | following the administration of IV and oral contrast. | | | COMPARISON: None available. FINDINGS IN THE ABDOMEN: The lung | | | bases are clear. A large calcified granuloma is noted within the | | | posterior segment of the right hepatic lobe. The liver is | | | homogeneously decreased in attenuation, consistent with fatty | | | infiltration. No focal mass or intrahepatic biliary ductal | | | dilatation is identified. The adrenal glands, spleen, gallbladder | | | and pancreas are unremarkable. Both kidneys enhance normally and | | | symmetrically. There is no focal mass, hydronephrosis or | | | nephrolithiasis. The stomach, small and large bowel loops within | | | the abdomen are normal. There is a midline umbilical hernia noted | | | containing omentum. No retroperitoneal adenopathy is seen. The | | | umbilical hernia does not contain any small or large bowel loops. | | | FINDINGS IN THE PELVIS: The urinary bladder, rectosigmoid colon, | | | prostate gland and seminal vesicals are grossly within normal limits. | | | IMPRESSION: 1. No abdominal or pelvic mass. 2. No evidence of | | | intestinal obstruction. 3. Umbilical hernia containing omental | | | fat. No herniation of small or large bowel loops. 4. Fatty | | | infiltration of the liver. Focal granuloma within the posterior | | | segment of right hepatic lobe. #[id number] | | + + + + + | Procedure Note | + + | Interface, Radiology Results - 03/16/2015 11:[address] ABDOMEN AND PELVIS WITH | | CONTRAST:CLINICAL HISTORY: Rule out obstruction. Abdominal hernia.TECHNIQUE: Multiple | | contiguous axial 5.0 mm images were obtainedthrough the abdomen and pelvis following | | the administration of IV andoral contrast.COMPARISON: None available.FINDINGS IN THE | | ABDOMEN: The lung bases are clear. A large calcifiedgranuloma is noted within the | | posterior segment of the right hepaticlobe. The liver is homogeneously decreased in | | attenuation, consistentwith fatty infiltration. No focal mass or intrahepatic biliary | | ductaldilatation is identified. The adrenal glands, spleen, gallbladder andpancreas are | | unremarkable. Both kidneys enhance normally andsymmetrically. There is no focal mass, | | hydronephrosis ornephrolithiasis. The stomach, small and large bowel loops within | | theabdomen are normal. There is a midline umbilical hernia notedcontaining omentum. No | | retroperitoneal adenopathy is seen. Theumbilical hernia does not contain any small or | | large bowel loops.FINDINGS IN THE PELVIS: The urinary bladder, rectosigmoid | | colon,prostate gland and seminal vesicals are grossly within normal limits.IMPRESSION:1. | | No abdominal or pelvic mass.2. No evidence of intestinal obstruction.3. Umbilical | | hernia containing omental fat. No herniation of smallor large bowel loops.4. Fatty | | infiltration of the liver. Focal granuloma within theposterior segment of right hepatic | | lobe.#[id number] | |prostate gland and seminal vesicals are grossly within normal limits. | |IMPRESSION: | |1. No abdominal or pelvic mass. | |2. No evidence of intestinal obstruction. | |3. Umbilical hernia containing omental fat. No herniation of small | |or large bowel loops. | |4. Fatty infiltration of the liver. Focal granuloma within the | |posterior segment of right hepatic lobe. | |#[id number] | + + + +---------+ + + | Performing | Address | City/State/Zipcode | Phone Number | | Organization | | | | + +---------+ + + | [facility] | | | | | RADIOLOGY | | | | + +---------+ + + SRUTHI MUNIZ ONLY (08/01/2008 3:12 PM PST) + + + + + [...] [facility] | And | [place] [address] | | | [facility] [place] | Streets | | | + + + + + CBC W/MERY REFLEX (08/01/2008 2:00 PM PST) + + + + + + | Component | Value | Ref Range | Performed | Pathologist | | | | | At | Signature | + + + + + + | WHITE BLOOD | 11.3 (H) | 4.3 - 11.0 X10 | [facility] | | | CELL COUNT | | 3/ul | A MEDICAL | | | | | | CENTER | | + + + + + + | HEMOGLOBIN | 15.6 | 12.0 - 16.0 | [facility] | | | | | g/dL | A MEDICAL | | | | | | CENTER | | + + + + + + | RED BLOOD | 4.98 | 4.7 - 6.1 X10 | [facility] | | | CELL COUNT | | 6/uL | A MEDICAL | | | | | | CENTER | | + + + + + + | HEMATOCRIT | 44.2 | 40.0 - 54.0 % | [facility] [...] + + + + | MCH | 31.2 | 28.0 - 32.0 pg | [facility] [...] + + + + | RDW | 13.0 | 12 - 15 fL | [facility] | | | | | | A MEDICAL | | | | | | CENTER | | + + + + + + | PLATELET | 166 | 150 - 450 X10 3 | [facility] | | | COUNT | | | A MEDICAL | | | | | | CENTER | | + + + + + + | MPV | 8.1 (L) | 9.0 - 12.0 fL | [facility] | | | | | | A MEDICAL | | | | | | CENTER | | + + + + + + | NEUTROPHIL | 74.8 | 40 - 80 % | [facility] [...] + + | BANDS % | SENIOR OPERATIONS MANAGER | 0 - 7 % | [...] + + | [facility] | [address] | [place] [address] | | | MEDICAL CENTER | Streets | | | + + + + + INR (08/01/2008 2:00 PM PST) + +-------+ + + + | Component | Value | Ref Range | Performed | Pathologist | | | | | At | Signature | + +-------+ + + + | PROTHROMBIN | 9.8 | 9.6 - 12.3 SEC | [facility] | | | TIME | | | A MEDICAL | | | | | | CENTER | | + +-------+ + + + | INR | 1.0 | 1.0 - 1.1 | [facility] | | | | | | A MEDICAL | | | | | | CENTER | | + +-------+ + + + | ON | NO | | [facility] | | | COUMADIN? | | | A MEDICAL | | | | | | CENTER | | + +-------+ + + + | COUMADIN | SENIOR OPERATIONS MANAGER | | [facility] | | | CURRENT | | | A MEDICAL | | | DOSE | | | CENTER | | + +-------+ + + + | LAST DOSE | SENIOR OPERATIONS MANAGER | | [facility] | | | DATE | | | A MEDICAL | | | | | | CENTER | | + +-------+ + + + | LAST DOSE | SENIOR OPERATIONS MANAGER | | [facility] | | | TIME [...] | + + + + + | [facility] | And | [place] [address] | | | [facility] | Streets | | | + + + + + COMPLETE METABOLIC SET (NA,K,CL,CO2,BUN,CREAT,GLUC,CA,AST,ALT,BILI TOTAL,ALK PHOS,ALB,PROT TOTAL) (08/01/2008 2:00 PM PST) + + + + + + | Component | Value | Ref Range | Performed | Pathologist | | | | | At | Signature | + + + + + + | SODIUM, | 134 (L) | 137 - 146 MEQ/L | [...] + + + + | GLUCOSE, | 117 (H) | 70 - 105 MG/DL | [...] 0.90 | 0.9 - 1.3 MG/DL | [facility] [...] + + + + | CALCIUM, | 10.9 (H) | 8.5 - 10.8 | [facility] | | | PLASMA | | MG/DL | A MEDICAL | | | (LAB) | | | CENTER | | + + + + + + | AST(SGOT) | 66 (H) | 10 - 41 U/L | [facility] | | | | | | A MEDICAL | | | | | | CENTER | | + + + + + + | ALT (SGPT) | 105 (H) | 7 - 51 U/L | [facility] | | | | | | A MEDICAL | | | | | | CENTER | | + + + + + + | ALK PHOS | 63 | 40 - 180 U/L | [facility] [...] + + + + | ALBUMIN, | 5.0 | 3.5 - 5.0 G/DL | [facility] | | | PLASMA | | | A MEDICAL | | | (LAB) | | | CENTER | | + + + + + + | BILIRUBIN | 1.3 | 0.2 - 1.6 MG/DL | [facility] | | | TOTAL | | | A MEDICAL | | | | | | CENTER | | + + + + + + | THEOPHYLLIN | 2.7 (L) | 10.0 - 20.0 | [facility] | | | E | | MCG/ML | A MEDICAL | | | CONCENTRATI | | | CENTER | | | ON | | | | | + + + + + + | LIPASE | 36 | 5 - 57 U/L | [facility] [...] + + + | LAST DOSE | YES | | [facility] | | | KNOWN | | | A MEDICAL | | | | | | CENTER | | + + + + + + | LAST DOSE | [phone] | | [facility] | | | DATE | | | A MEDICAL | | | | | | CENTER | | + + + + + + | LAST DOSE | [phone] | | [facility] | | | TIME [...] + + | [facility] | And | [place] [address] | | | MEDICAL CENTER | Streets | | | + + + + + TYPE AND SCREEN (08/01/2008 2:00 PM PST) + + + + + [...] + | [facility] | | [place] [address] | | | [facility] | [facility] | | | + + + + + documented in this encounter Visit Diagnoses Not on filedocumented in this encounter"
--- OUTSIDE RECORDS SUMMARY | ~2019-04-25 | XMS | Encounter Summary ---
Demographics + + + | Address | [address] | | | [place] [address] | + + + | Home Phone [...] [place] | | | | | [address] | | + + + + + Care Team Providers + +------+ + | Care Clinic Business Manager Name | Role | Phone | [...] as of this encounter Progress Notes Interface, Production Control Scheduler In - 03/29/2006 3:07 AM PDTCLINIC DATE: 12/13/2001 Mr. Marquze is postoperative tympanomastoidectomy. He states that he [...] implant. Aamir Chan M.D. TONY / MALORIE [id number] / [id number] / [id number] / Tdocumented in this encounter Plan of Treatment +--------+ + + + + | Date | Type | Specialty | Care Team | Description | +--------+ + + + + | 04/29/ | Diagnostic | Lehr Stripper | Marce Meyer | | | 2019 | Visit | | Eve Briseno [address] | | | | | | [address] | | | | | | [place], [place] | | | | | | [address] | | +--------+ + + + + documented as of this encounter Visit Diagnoses Not on filedocumented in this encounter"
--- OUTSIDE RECORDS SUMMARY | ~2019-04-25 | XMS | Encounter Summary ---
Demographics + + + | Address | [address] | | | [place] [address] | + + + | Home Phone [...] [place] | | | | | [address] | | + + + + + Care Team Providers + +------+ + | Care Costumer Name | Role | Phone | + [...] | 2012 | Visit | Center at [facility] [address] | MD [address] | (Primary Dx) | | | | [address] | [place], [place] | | | | | Mailcode: House | [address] | | | | | for Health and | [phone] | | | | | [facility] [address] | | | | | | [facility] [place] | | | | | | [address] | | | | | | [phone] | | | +--------+---------+ + + + [...] Giordano MD - 11/15/2012 8:29 PM PDTDr. Mandeep Gabriel is attending of record for [...] + + | 04/29/ | Diagnostic | Operations Expert | Marce Meyer | | | 2019 | Visit | | K, AuD [address] | | | | | | [address] | | | | | | [place], [place] | | | | | | [address] | | +--------+ + + + + [...] + | [facility] - | [address] | [place] [address] | | | [place] | | | | + + + + + documented in this encounter Visit Diagnoses + + | Diagnosis | + + | Wound infection - Primary Posttraumatic wound infection not elsewhere classified | + + documented in this encounter
--- OUTSIDE RECORDS SUMMARY | ~2019-04-25 | XMS | Encounter Summary ---
Demographics + + + | Address | [address] | | | [place] [address] | + + + | Home Phone [...] [place] | | | | | [address] | | + + + + + Care Team Providers + +------+ + | Care Intermediate Frame Tender Name | Role | Phone | + +------+ + | Jaison Chávez MD | PCP | | + +------+ + Encounter Details +--------+ + + + + | Date | Type | Department | Care Team | Description | +--------+ + + + + | 08/12/ | Results | NON-[facility] | Kiana Em, | | | 2008 | Only | Department | MD [facility] | | | | | | [facility] [address] | | | | [address] | | | | | | [place] [address] | | | | | | [phone] | | | | | | | [...] + + | 04/29/ | Diagnostic | Mill Operator Head | Marce Meyer | | | 2019 | Visit | | Eve Briseno [address] [facility] | | | | | | [address] | | | | | | [place], [place] | | | | | | [address] | | +--------+ + + + + documented as of this encounter Procedures + +--------+ + + + | Procedure Name | Priori | Date/Time | Associated Diagnosis | Comments | | | ty | | | | + +--------+ + + + | ABDOMEN AND PELVIS | Routin | 08/12/2008 | | [place] | | [place] [id number] | e | 5:54 PM | | procedure are in the | | | | PST | | results section. | + +--------+ + + + | ABDOMEN 1 VIEW [id number] | Routin | 08/12/2008 | | Results for this | | | e | 8:57 AM | | procedure are in the | | | | PST | | results section. | + +--------+ + + + | CHEST 1 VIEW (AP OR | Routin | 08/12/2008 | | Results for this | | PA) [id number] | e | 8:57 AM | | procedure are in the | | | | PST | | results section. | + +--------+ + + + documented in this encounter [place] [id number] (08/12/2008 5:54 PM PST) + + | Specimen | + + | | + + + + + | Narrative | Performed At | + + + | CT ABDOMEN AND PELVIS WITHOUT CONTRAST CLINICAL HISTORY: Status | [facility] | | post laparoscopic ventral hernia repair. TECHNIQUE: Multiple | DEPARTMENT OF | | contiguous axial 5.0-mm images were obtained through the abdomen and | RADIOLOGY | | pelvis without the administration of IV contrast. Gastrografin was | | | also placed through the patient's NG tube. COMPARISON: 08/11/2008 | | | at 2258 hours. FINDINGS IN THE ABDOMEN: The lung bases are | | | clear. The unenhanced liver, spleen, adrenal glands, pancreas, | | | gallbladder, and right kidney are unremarkable. There is a small | | | simple cyst within the lower pole of the left kidney. The stomach, | | | small- and large-bowel loops within the abdomen are | | | normal. Postsurgical changes from ventral hernia repair are | | | visualized. The low-density mass within the hernia sac within the | | | anterior mid abdominal wall measures approximately 6.3 cm transverse | | | x 3.5 cm AP. The Hounsfield units measure approximately 13, and | | | this likely represents a seroma. No free intraperitoneal air or | | | inflammatory change within the abdomen is noted. The sagittal | | | reformatted images demonstrate an intact mesh and no evidence of | | | trapped bowel anterior to the mesh. No abdominal ascites is | | | visualized. FINDINGS IN THE PELVIS: The small-bowel loops within | | | the pelvis are unremarkable. There is an abrupt transition from | | | normal caliber air-filled sigmoid to collapsed sigmoid colon. No | | | obvious wall thickening or mass is seen. The urinary bladder is | | | decompressed from a Saldana catheter. The prostate gland and seminal | | | vesicles are unremarkable. No pelvic ascites is seen. | | | IMPRESSION: Low-density collection within the anterior mid and | | | lower abdominal wall, likely representing a seroma. No herniation | | | of small or large bowel or omentum within the hernia sac. Intact | | | mesh. No free air, ascites or inflammatory change in abdomen or | | | pelvis. Findings were discussed with Dr. Ashley Echevarria on 08/12/08 and | | | with Dr. Fernandes on the evening of 08/13/08. [id number] | | + + + + + | Procedure Note | + + | Interface, Radiology Results - 03/16/2015 11:[address] ABDOMEN AND PELVIS WITHOUT | | CONTRASTCLINICAL HISTORY: Status post laparoscopic ventral hernia repair.TECHNIQUE: | | Multiple contiguous axial 5.0-mm images were obtainedthrough the abdomen and pelvis | | without the administration of IVcontrast. Gastrografin was also placed through the | | patient's NG tube.COMPARISON: 08/11/2008 at 2258 hours.FINDINGS IN THE ABDOMEN: The | | lung bases are clear. The unenhancedliver, spleen, adrenal glands, pancreas, | | gallbladder, and right kidneyare unremarkable. There is a small simple cyst within the | | lowerpole of the left kidney. The stomach, small- and large-bowel loopswithin the | | abdomen are normal. Postsurgical changes from ventralhernia repair are visualized. The | | low-density mass within the herniasac within the anterior mid abdominal wall measures | | approximately6.3 cm transverse x 3.5 cm AP. The Hounsfield units measureapproximately | | 13, and this likely represents a seroma. No freeintraperitoneal air or inflammatory | | change within the abdomen isnoted. The sagittal reformatted images demonstrate an | | intact mesh andno evidence of trapped bowel anterior to the mesh. No abdominalascites | | is visualized.FINDINGS IN THE PELVIS: The small-bowel loops within the pelvis | | areunremarkable. There is an abrupt transition from normal caliberair-filled sigmoid to | | collapsed sigmoid colon. No obvious wallthickening or mass is seen. The urinary | | bladder is decompressed froma Saldana catheter. The prostate gland and seminal vesicles | | areunremarkable. No pelvic ascites is seen.IMPRESSION: Low-density collection within | | the anterior mid and lowerabdominal wall, likely representing a seroma. No herniation | | of smallor large bowel or omentum within the hernia sac. Intact mesh. Nofree air, | | ascites or inflammatory change in abdomen or pelvis.Findings were discussed with Dr. Ramirez | | Wale on 08/12/08 and with on the evening of 08/13/[id number] | |a Saldana catheter. The prostate gland and seminal vesicles are | |unremarkable. No pelvic ascites is seen. | |IMPRESSION: Low-density collection within the anterior mid and lower | |abdominal wall, likely representing a seroma. No herniation of small | |or large bowel or omentum within the hernia sac. Intact mesh. No | |free air, ascites or inflammatory change in abdomen or pelvis. | |Findings were discussed with Dr. Ashley Echevarria on 08/12/[address] Stephens |Dena on the evening of 08/13/08. | |[id number] | + + + +---------+ + + | Performing | Address | City/State/Zipcode | Phone Number | | Organization | | | | + +---------+ + + | [facility] | | | | | RADIOLOGY | | | | + +---------+ + + ABDOMEN 1 VIEW [id number] (08/12/2008 8:57 AM PST) + + | Specimen | + + | | + + + + + | Narrative | Performed At | + + + | SINGLE VIEW OF THE ABDOMEN CLINICAL HISTORY: Status post | [facility] | | laparoscopic ventral hernia repair with pain. TECHNIQUE: A supine | DEPARTMENT OF | | AP view of the abdomen was obtained. COMPARISON: 08/11/2008 at | RADIOLOGY | | 2030 hours. FINDINGS: Air-filled colon is noted. The study is | | | limited secondary to body habitus. Postsurgical changes from | | | ventral hernia repair are seen within the mid and periphery of the | | | central abdomen. No free intraperitoneal air is noted. | | | IMPRESSION: Limited study. No free intraperitoneal air. No | | | intestinal obstruction. Air-filled colon. [id number] | | + + + + + | Procedure Note | + + | Interface, Radiology Results - 03/16/2015 11:52 AM PDT SINGLE VIEW OF THE ABDOMEN | | CLINICAL HISTORY: Status post laparoscopic ventral hernia repair with | | pain. | | TECHNIQUE: A supine AP view of the abdomen was obtained. | | COMPARISON: 08/11/2008 at 2030 hours. | | FINDINGS: Air-filled colon is noted. The study is limited secondary | | to body habitus. Postsurgical changes from ventral hernia repair are | | seen within the mid and periphery of the central abdomen. No free | | intraperitoneal air is noted. | | IMPRESSION: Limited study. No free intraperitoneal air. No | | intestinal obstruction. Air-filled colon. | | [id number] | + + + +---------+ + + | Performing | Address | City/State/Zipcode | Phone Number | | Organization | | | | + +---------+ + + | [facility] | | | | | [facility]OLOGY | | | | + +---------+ + + CHEST 1 VIEW (EAN OR CYNTHIA) [id number] (08/12/2008 8:57 AM PST) + + | Specimen | + + | | + + + + + | Narrative | Performed At | + + + | SINGLE VIEW OF THE CHEST CLINICAL HISTORY: Status post | [facility] | | laparoscopic ventral hernia repair. TECHNIQUE: A portable AP view | DEPARTMENT OF | | of the chest was obtained. COMPARISON: 08/02/2008. | RADIOLOGY | | FINDINGS: The study is slightly limited, as the patient is in an | | | apical lordotic position. Heart size is normal. The lateral | | | costophrenic angles are not included. There is no obvious | | | infiltrate, pneumothorax, effusion, or evidence of pulmonary vascular | | | congestion. IMPRESSION: Limited study. No evidence of new | | | infiltrate or pulmonary edema. [id number] | | + + + + + | Procedure Note | + + | Interface, Radiology Results - 03/16/2015 11:52 AM PDT SINGLE VIEW OF THE CHEST | | CLINICAL HISTORY: Status post laparoscopic ventral hernia repair. | | TECHNIQUE: A portable AP view of the chest was obtained. | | COMPARISON: 08/02/2008. | | FINDINGS: The study is slightly limited, as the patient is in an | | apical lordotic position. Heart size is normal. The lateral | | costophrenic angles are not included. There is no obvious infiltrate, | | pneumothorax, effusion, or evidence of pulmonary vascular congestion. | | IMPRESSION: Limited study. No evidence of new infiltrate or | | pulmonary edema. | | [id number] | + + + +---------+ + + [...]
--- OUTSIDE RECORDS SUMMARY | ~2019-04-25 | XMS | Encounter Summary ---
Demographics + + + | Address | [address] | | | [place] [address] | + + + | Home Phone [...] [place] | | | | | [address] | | + + + + + Care Team Providers + +------+ + | Care Bindery Cutter Operator Name | Role | Phone | [...] | | Review | | | | [facility] | | | | | | [address] | | | | | | Mailcode: OC2L | | | | | | [facility] | | | | | | and Healing, | | | | | | [address] | | | | | | [place], [place] | | | | | | [address] | | | | | | [phone] | | | +--------+ + + + [...] + + | 04/29/ | Diagnostic | Fellmongery Worker | Marce Meyer | | | 2019 | Visit | | Eve Briseno [address] | | | | | | [address] | | | | | | [place] | | | | | | [address] | | +--------+ + + + + documented as of this encounter Visit Diagnoses Not on filedocumented in this encounter"
--- OUTSIDE RECORDS SUMMARY | ~2019-04-25 | XMS | Encounter Summary ---
Demographics + + + | Address | [address] | | | [place] [address] | + + + | Home Phone [...] [place] | | | | | [address] | | + + + + + Care Team Providers + +------+ + | Care Decorating Kiln Operator Name | Role | Phone | [...] | after surgery: | | | | [place], [place] | | clindamycin 300mg) | | | | [address] | | | | | | [phone] | | | +--------+ + + + [...] + + | 04/29/ | Diagnostic | Hook Loader | Marce Meyer | | | 2019 | Visit | | Eve Briseno [address] [facility] | | | | | | [address] | | | | | | [place] | | | | | | [address] | | +--------+ + + + + documented as of this encounter Visit Diagnoses Not on filedocumented in this encounter"
--- OUTSIDE RECORDS SUMMARY | ~2019-04-25 | XMS | Encounter Summary ---
Demographics + + + | Address | [address] | | | [place] [address] | + + + | Home Phone | | + + + | Preferred Language | Unknown | + + + | Marital Status | Single | + + + | Restorationist Affiliation | BAP | + + + [...] [place] | | | | | [address] | | + + + + + Care Team Providers + +------+ + | Care Motorboat Mechanic Helper Name | Role | Phone | + +------+ + | Kerri Chavarria NP | PCP | | + +------+ + Encounter Details +--------+ + + + + | Date | Type | Department | Care Team | Description | +--------+ + + + + | 05/27/ | Telephone | Digestive Health | Ayana Butler W, | | | 2011 | | [place] at [facility] [address] | [address] | | | | | [address] | [facility] [place] | | | | | Mailcode: [place] | [address] | | | | | for Health and | [phone] | | | | | [facility], [facility] [address] | | | | | | [facility] [place] | | | | | | [address] | | | | | | [phone] | | | +--------+ + + + [...] + | 04/29/ | Diagnostic | Cloth Picker | Marce Meyer | | | 2019 | Visit | | Eve Briseno [address] [place] [address] | | | | | | [address] | | | | | | [place] | | | | | | [address] | | +--------+ + + + + documented as of this encounter Visit Diagnoses Not on filedocumented in this encounter"
--- OUTSIDE RECORDS SUMMARY | ~2019-04-25 | XMS | Encounter Summary ---
Demographics + + + | Address | [address] | | | [place] [address] | + + + | Home Phone [...] [place] | | | | | [address] | | + + + + + Care Team Providers + +------+ + | Care Mill Stenciler Name | Role | Phone | + +------+ + | Deidre Card | PCP | | + +------+ + Reason for Visit + + + | Reason | Comments | + + + | Hearing loss | SPRINT PROCESSOR [id number] | + + + Encounter Details +--------+ + + + + | Date | Type | Department | Care Team | Description | +--------+ + + + + | 03/29/ | Documentati | [facility] | Haroon Poe, | Hearing loss (SPRINT | | 2007 | on | Floor [address] | PhD | PROCESSOR [id number]) | | | | [address] | | | | | | Mailcode: [facility] | | | | | | [place], [place] | | | | | | [address] | | | | | | [phone] | | | +--------+ + + + [...] + + | 04/29/ | Diagnostic | Client Support Professional | Marce Meyer | | | 2019 | Visit | | Eve Briseno [address] | | | | | | [address] | | | | | | [place], [place] | | | | | | [address] | | +--------+ + + + + documented as of this encounter Visit Diagnoses Not on filedocumented in this encounter"
--- OUTSIDE RECORDS SUMMARY | ~2019-04-25 | XMS | Encounter Summary ---
Demographics + + + | Address | [address] | | | [place] [address] | + + + | Home Phone [...] [place] | | | | | [address] | | + + + + + Care Team Providers + +------+ + | Care Wheelchair Driver Name | Role | Phone | [...] + + + | Closed | | Electric Range Servicer | Diagnoses | Angelo Card Ent | | | | | Neural | Deidre A, | Cochlear Ppv | | | | | hearing | MD | [address] | | | | | loss, | [place] [facility] | | | | | bilateral | INTERNAL | Rd Mailcode: | | | | | | MEDICINE | [address] | | | | | | [address] | Physician's | | | | | | [address] | Pavilion | | | | | | [address] | [place], [place] | | | | | | [place], | [address] | | | | | | [place] [address] | Phone: | | | | | | Phone: | [phone] | | | | | | [phone] | Fax: | | | | | | Fax: | [phone] | | | | | | [phone] | | +--------+--------+ + + + + [...] | | Toya Spencer Mailcode: | [place] | | | | | [address] | [address] | | | | | [place], | | | | | | [place] [address] | | | | | | [phone] | | | +--------+---------+ + + + [...] seen today for follow up of his Ptntcj2R/Sprint exchange. Mr. Marquez said that the device [...] 45 cm cord will be exhanged (order #[id number]). I also inquired about the batteries and power pack that Mr. Marquez did not receive an d Fawn reported were not ordered. She will check into this and send all equipment to the [facility]'s home address. It was recommended that Mr. Marquez return in 3 months for his next CI follow-up appointmen janet Herbert M.A., CCC-A Clinical & Rehabilitative Electric Range Servicer [facility] Cochlear Implant Program Departement of Otolaryngology/Head & Neck Surgery documented in t his encounter Plan of Treatment +--------+ + + + + | Date | Type | Specialty | Care Team | Description | +--------+ + + + + | 04/29/ | Diagnostic | Electric Range Servicer | Marce Meyer | | | 2019 | Visit | | Eve Briseno [address] [facility] | | | | | | [address] | | | | | | [place], [place] | | | | | | [address] | | +--------+ + + + + documented as of this encounter Visit Diagnoses + + | Diagnosis | + + | Neural hearing loss, bilateral - Primary | + + documented in this encounter"
--- OUTSIDE RECORDS SUMMARY | ~2019-04-25 | XMS | Encounter Summary ---
Demographics + + + | Address | [address] | | | [place] [address] | + + + | Home Phone [...] [place] | | | | | [address] | | + + + + + Care Team Providers + +------+ + | Care Cold Press Operator Name | Role | Phone | [...] | | | | | [place] [address] | | | | | | [phone] | | | | | | | [...] + | 04/29/ | Diagnostic | Supervisor Fishing | Marce Meyer | | | 2019 | Visit | | Eve Briseno [address] | | | | | | [address] | | | | | | [place], [place] | | | | | | [address] | | +--------+ + + + + [...] +--------+ + + + | OTHER | HEEL LIFT GOUGER | | [facility] | | | | [...] [facility] | And | [place] [address] | | | MEDICAL CENTER | Streets | | | + + + + + documented in this encounter Visit Diagnoses Not on filedocumented in this encounter"
--- OUTSIDE RECORDS SUMMARY | ~2019-04-25 | XMS | Encounter Summary ---
Demographics + + + | Address | [address] | | | [place] [address] | + + + | Home Phone [...] [place] | | | | | [address] | | + + + + + Care Team Providers + +------+ + | Care Forest Ecology Professor Name | Role | Phone | [...] | | | | | BENIGN | [place], [place] | [address] [facility] | | | | | [place] | [address] | Hospital | | | | | | Phone: | [place], [place] | | | | | | [phone] | [address] | | | | | | Fax: | Phone: | | | | | | | [phone] | | | | | | | Fax: | | | | | | | [phone] | +--------+--------+ + + + + Reason [...] + + + | Closed | | In Room Dining Server | Diagnoses | Reese, | Joan, | | | | | Neural | Sergo Jovel, | MD Asim Garcia | | | | | hearing | INTERNAL | [address] | | | | | loss, | MEDICINE | [address] | | | | | bilateral | ASSOCIATES | [place], [place] | | | | | | [address] | [address] Phone: | | | | | | [facility] | [phone] | | | | | | [place] | Fax: | | | | | | [address] | | | | | | | Phone: | | | | | | | [phone] | | | | | | | Fax: | | | | | | | [phone] | | +--------+--------+ + + + + Encounter Details +--------+---------+ + + + | Date | Type | Department | Care Team | Description | +--------+---------+ + + + | 11/19/ | Office | Otolaryngology | Joes Franco, | Otitis externa | | 2010 | Visit | Otology Services at | [address] | (Primary Dx); Neural | | | | PPV [address] | [address] [place] | hearing loss, | | | | [address] | [place] [address] | bilateral | | | | Mailcode: [place] | [phone] | | | | | Priya Perez | (Fax) | | | | | [place], [place] | | | | | | [address] | | | | | | [phone] | | | +--------+---------+ + + + [...] have all been documented on the attached tx anned document. See attached scanned clinic doc. [...] + + | 04/29/ | Diagnostic | In Room Dining Server | Marce Meyer | | | 2019 | Visit | | Eve Briseno [address] | | | | | | [address] | | | | | | [place], [place] | | | | | | [address] | | +--------+ + + + + [...] CT | | | | | | [id number]. Since | | | | | | [...] | | + +---------+ + + | [facility] DEPARTMENT OF | | | | | [...] + + + | [facility] | [address] | [place] [address] | | | LAB-MICRO | | | [...] + + + | [facility] | [address] | [place] [address] | | | LAB-MICRO | | | [...] | + + + + + | [facility] | [address] | [place] [address] | | | LAB-MICRO | | | [...] + + + | [facility] | [address] | [place] [address] | | | LAB-MICRO | | | [...] RLB | | | | | | ([facility] [address]) | | | | | | [facility] | | | | | | [facility] | | | | | | [address] | | | | | [address] | | | | | | [place], | | | | | | [place] [address] | | | | + + + + + + + + | Specimen | + + | Ear - Ear | + + + + + + + | Performing | Address | City/State/Zipcode | Phone Number | | Organization | | | | + + + + + | [facility] | [address] | [place] [address] | | | LAB-MICRO | | | [...] ID | | | | | | [place] Type | | | | | | [...] ID | | | | | | [place] Type | | | | | | [...] + + + | [facility] | [address] | [place] [address] | | | LAB-MICRO | | | [...] [address] | | | | | | [address] [place] | | | | [address] | | | | | | [place], | | | | | | [place] [address] | | | | + + + + + + + + | Specimen | + + | Ear - Ear | + + + + + + + | Performing | Address | City/State/Zipcode | Phone Number | | Organization | | | | + + + + + | [facility] | [address] | [place] [address] | | | LAB-MICRO | | | [...] | | | | | ID 3 [place] | | | | | | Types [...] + + + | [facility] | [address] | [place] [address] | | | LAB-MICRO | | | | + + + + + documented in this encounter Visit Diagnoses + + | Diagnosis | + + | Otitis externa - Primary Infective otitis externa, unspecified | + + | Neural hearing loss, bilateral | + + documented in this encounter"
--- OUTSIDE RECORDS SUMMARY | ~2019-04-25 | XMS | Encounter Summary ---
Demographics + + + | Address | [address] | | | [place] [address] | + + + | Home Phone [...] [place] | | | | | [address] | | + + + + + Care Team Providers + +------+ + | Care Senior Label Specialist Name | Role | Phone | [...] NE | | | | | | [facility] | | | | | | [place] [address] | | | | | | [phone] | | | | | | | [...] + + | 04/29/ | Diagnostic | Irradiated Fuel Handler | Marce Meyer | | | 2019 | Visit | | Eve Briseno [address] [facility] | | | | | | [address] | | | | | | [place], [place] | | | | | | [address] | | +--------+ + + + + [...] + + | [facility] | [address] | [place] [address] | | | MEDICAL CENTER | Streets | | | + + + + + documented in this encounter Visit Diagnoses Not on filedocumented in this encounter"
--- OUTSIDE RECORDS SUMMARY | ~2019-04-25 | XMS | Encounter Summary ---
Demographics + + + | Address | [address] | | | [place] [address] | + + + | Home Phone [...] [place] | | | | | [address] | | + + + + + Care Team Providers + +------+ + | Care Poultry Hatchery Supervisor Name | Role | Phone | [...] NE | | | | | | [facility] | | | | | | [place] [address] | | | | | | [phone] | | | | | | | [...] + + | 04/29/ | Diagnostic | Contestant Coordinator | Marce Meyer | | | 2019 | Visit | | Eve Briseno [address] [facility] | | | | | | [address] | | | | | | [place], [place] | | | | | | [address] | | +--------+ + + + + [...] + + + | CHEST 2 VIEW [address] | Routin | 08/29/2009 | | Results for this | | | e | 10:20 PM | | procedure are in the | | | | PST | | results section. | + +--------+ + + + | CHEST 2 VIEW [address] | Routin | 08/29/2009 | | Results [...] + | [facility] | [address] | [place] [address] | | | [facility] [place] | Streets | | | + + [...] + + + | BANDS % | FELTER TENNIS BALLS | 0 - 7 % | [facility] [...] + + | [facility] | | [place] [address] | | | [facility] | Streets | | | + [...] | [address] | [place] [address] | | | [facility] | [facility] | | | + + + + + CHEST 2 VIEW [address]6897 (08/29/2009 10:20 PM PST) + + | [...] + +---------+ + + CHEST 2 VIEW 98745 (08/29/2009 11:10 AM PST) + + | [...] | | + +---------+ + + | [facility] DEPARTMENT OF | | | | | RADIOLOGY | | | | + +---------+ + + documented in this encounter Visit Diagnoses Not on filedocumented in this encounter"
--- OUTSIDE RECORDS SUMMARY | ~2019-04-25 | XMS | Encounter Summary ---
Demographics + + + | Address | [address] | | | [place] [address] | + + + | Home Phone | | + + + | Preferred Language | Unknown | + + + | Marital Status | Single | + + + | Scientologist Affiliation | BAP | + + + [...] [place] | | | | | [address] | | + + + + + Care Team Providers + +------+ + | Care Foreign Language Professor Name | Role | Phone | [...] | | | | | | | [place], [place] | | | | | | | [address] | | | | | | | Phone: | | | | | | | [phone] | | | | | | | Fax: | | | | | | | [phone] | +--------+--------+ + + + + Encounter Details +--------+---------+ + + + | Date | Type | Department | Care Team | Description | +--------+---------+ + + + | 12/03/ | Office | Digestive Health | Ayana Butler W, | Constipation | | 2012 | Visit | Center at [facility] [address] | MD [address] | (Primary Dx) | | | | [address] | [place], [place] | | | | | Mailcode: Center | [address] | | | | | for Health and | [phone] | | | | | Healing, Building [address] | | | | | | [place], [place] | | | | | | [address] | | | | | | [phone] | | | +--------+---------+ + + + [...] or any other concern. Ayana Butler MD Senior Principal Software Engineer Division of General and Gastrointestinal Surgery Department of Surgery documented in this en counter Plan of Treatment +--------+ + + + + | Date | Type | Specialty | Care Team | Description | +--------+ + + + + | 04/29/ | Diagnostic | Ski Guide | Marce Meyer | | | 2018 | Visit | | Finn, Eve [address] [facility] | | | | | | [address] | | | | | | [place], [place] | | | | | | [address] | | +--------+ + + + + documented as of this encounter Visit Diagnoses + + | Diagnosis | + + | Constipation - Primary | + + documented in this encounter"
--- OUTSIDE RECORDS SUMMARY | ~2019-04-25 | XMS | Encounter Summary ---
Demographics + + + | Address | [address] | | | [place] [address] | + + + | Home Phone [...] + +------+ + | Care Motor Vehicle Emissions Inspector Name | Role | Phone | + +------+ + | Deidre Card | PCP | | + +------+ + Encounter Details +--------+ + + + + | Date | Type | Department | Care Team | Description | +--------+ + + + + | 10/11/ | Office | [facility] INTERNAL | Note, [...] as of this encounter Progress Notes Stevie, Counsellors In - 04/06/2006 3:04 AM PDTCLINIC DATE: 10/11/2001 Mr. Marquez had a tympanomastoidectomy about 5 weeks ago. At this particular time, the ears are cleaned of a fair amount of debris. There has been a small amount of discharge on the right. However, with suctioning the remainder of the Gelfoam out, there are only few small areas that have not epithelized. He appears to be doing extremely well at this time. He was touched with gentian thomas and powdered, then to use drops for 3 days this weekend. Otherwise, we will treat it dry. Aamir Chan M.D. TONY / [place] [id number] / [id number] / [id number] / [id number] signed by Ramon Hubbard In at 04/06/2006 3:04 AM PDTRamon Richard In - 04/06/2006 3:04 AM PDTCLINIC DATE: 10/11/2001 OTOLARYNGOLOGY CLINIC HISTORY: Mr. Marquez is a 35-year-old gentleman with a history of profound bilateral sensory neural hearing loss and recurrent right-sided cholesteatoma. He is now 1 month status post right revision canal down wall mastoidectomy. At that time, there was no evidence of labyrinthine fistula, dehiscing facial nerve, or ossicular erosion. The patient comes in for followup today with no specific complaints. He has had some mild drainage. PHYSICAL EXAMINATION: The right ear is examined under the otomicroscope. The postauricular incision is healing. There is mild excoriation of the skin which is mildly erythematous and indurated. No evidence, however, of cellulitis. There is no drainage. The auricle is normal appearing. The canal and mastoid cavity are then examined with the otomicroscope. There is debris within the cavity that was removed with suction to reveal a near-totally mucosalised cavity. The mastoid tip still has some granulation tissue present minimally. Gentian thomas was applied followed by Sulzberger powder. IMPRESSION: Stable and doing well, status post revision right canal wall down mastoidectomy. PLAN: We will have the patient follow up for routine cavity cleaning. He was given instructions to use topical drops for the next 1 to 2 weeks. Bayron Hirsch M.D. MITCH / MAL[place]IE [id number] / [id number] / [id number] / [id number] signed by Stevie, Counsellors In at 04/06/2006 3:04 AM [facility] umented in this encounter Plan of Treatment +--------+ + + + + | Date | Type | Specialty | Care Team | Description | +--------+ + + + + | 04/29/ | Diagnostic | Mold Sander | Marce Meyer | | | 2019 | Visit | | Eve Briseno [address] [facility] | | | | | | [facility] | | | | | | [place], [place] | | | | | | [address] | | +--------+ + + + + documented as of this encounter Visit Diagnoses Not on filedocumented in this encounter"
--- OUTSIDE RECORDS SUMMARY | ~2019-04-25 | XMS | Encounter Summary ---
Demographics + + + | Address | [address] | | | [place] [address] | + + + | Home Phone [...] [place] | | | | | [address] | | + + + + + Care Team Providers + +------+ + | Care Brine Process Operator Name | Role | Phone | [...] + + | 04/29/ | Diagnostic | Brake Coupler Dinkey | Marce Meyer | | | 2019 | Visit | | Eve Briseno [address] | | | | | | [address] | | | | | | [place], [place] | | | | | | [address] | | +--------+ + + + + [...] | | DIAGNOSTICS | | | | DIAGNOSTICS-[id number] | | -[facility] | | | | [address] | | | | | | [place], | | | | | | [place] [address] | | | | | | : ASHLEY HORTON MD | | | | + + + + + + + + | Specimen | + + | | + + + + + + + | Performing | Address | City/State/Zipcode | Phone Number | | Organization | | | | + + + + + | [facility] | [address] | [place] [address] | [phone] | | [facility] | | | | + + + + + | [facility] | | | | | [facility] | | | | + + + [...] + + + | BANDS % | INSIDE FINISHER | 0 - 7 % | [facility] | | | | | | A MEDICAL | | | | | | CENTER | | + + + + + + | SED[facility]I | 53 (H) | 1 - 15 MM/HR | [facility] | | | ON RATE | | [...] [facility] | [facility] | [place] [address] | | | MEDICAL CENTER | Streets [...] [facility] | [place] | [place] [address] | | | MEDICAL CENTER | Streets | | | + + + + + documented in this encounter Visit Diagnoses Not on filedocumented in this encounter"
--- OUTSIDE RECORDS SUMMARY | ~2019-04-25 | XMS | Encounter Summary ---
Demographics + + + | Address | [address] | | | [place] [address] | + + + | Home Phone [...] + + + | Author | [facility] | + + + | Organization | [facility] | + + + | Address | Unknown | + + + | Phone | Unavailable | + + + Support + + + + + | Name | Relationship | Address | Phone | + + + + + | Margarito Owusu | ECON | [address] | | | | | [place] | | | | | [address] | | + + + + + Care Team Providers + +------+ + | Care Water Resources Engineer Name | Role | Phone | [...] | | | | | DOBUTAMINE | [place], [place] | [address] | | | | | ECHOCARDIOGR | [address] | [address] | | | | | AM, ADULT | Phone: | Building | | | | | | [phone] | [place], [place] | | | | | | Fax: | [address] | | | | | | [phone] | Phone: | | | | | | | [phone] | +--------+--------+ + + + + Encounter [...] | | | | | | [facility], | | | | | | [place] [address] | | | | | | [phone] | | | +--------+ + + + [...] + + | 04/29/ | Diagnostic | Laceworker | Marce Meyer | | | 2019 | Visit | | Eve Briseno [address] [facility] | | | | | | [address] | | | | | | [place], [place] | | | | | | [address] | | +--------+ + + + + [...]
--- OUTSIDE RECORDS SUMMARY | ~2019-04-25 | XMS | Encounter Summary ---
Demographics + + + | Address | [address] | | | [place] [address] | + + + | Home Phone [...] [place] | | | | | [address] | | + + + + + Care Team Providers + +------+ + | Care Physical Integration Practitioner Name | Role | Phone | [...] [address] | | | | | at [facility] | [facility] | | | | | [address] | [place] [address] | | | | | [facility] | | | | | | Mailcode: [address] | | | | | | [address] | | | | | | [facility] | | | | | | [place] [address] | | | | | | [phone] | | | +--------+ + + + [...] + + | 04/29/ | Diagnostic | Campaign Analyst | Marce Meyer | | | 2019 | Visit | | Eve Briseno [address] | | | | | | [address] | | | | | | [place], [place] | | | | | | [address] | | +--------+ + + + + [...] view image for the detailed interpretation from [employer] results. | CARDIOLOGY | + + + + + + + + | Performing | Address | City/State/Zipcode | Phone Number | | Organization | | | | + + + + + | [facility] | [address] | [place], [place] | | | CARDIOLOGY | [address] | [address] | | + + + + + documented in this encounter Visit Diagnoses Not on filedocumented in this encounter
--- OUTSIDE RECORDS SUMMARY | ~2019-04-25 | XMS | Encounter Summary ---
Demographics + + + | Address | [address] | | | [place] [address] | + + + | Home Phone [...] [place] | | | | | [address] | | + + + + + Care Team Providers + +------+ + | Care Supervisor Respiratory Name | Role | Phone | + [...] | | | | | [address] [place], | | | | | | [place] [address] | | | +--------+ + + + [...] + + | 04/29/ | Diagnostic | Molder Automobile Carpets | Marce Meyer | | | 2018 | Visit | | Eve Briseno [address] | | | | | | [address] | | | | | | [place], [place] | | | | | | [address] | | +--------+ + + + + documented as of this encounter Visit Diagnoses Not on filedocumented in this encounter"
--- OUTSIDE RECORDS SUMMARY | ~2019-04-25 | XMS | Encounter Summary ---
Demographics + + + | Address | [address] | | | [place] [address] | + + + | Home Phone [...] [place] | | | | | [address] | | + + + + + Care Team Providers + +------+ + | Care Medical Imaging Technologist Name | Role | Phone | + [...] | Specialties at [facility] | Clinic [address] [facility] | | | | | [address] | [facility] | | | | | Toya Spencer Mailcode: | [place] [address] | | | | | [id number] Physician's | | | | | | [address], [address] | | | | | | [place], [place] | | | | | | [address] | | | | | | [phone] | | | +--------+ + + + [...] + + | 04/29/ | Diagnostic | Forestry Fire Aide | Marce Meyer | | | 2019 | Visit | | Finn, Eve [address] | | | | | | [address] | | | | | | [place], [place] | | | | | | [address] | | +--------+ + + + + [...] following:FVC=5.33FVC% | | | | | | uwnxqqdee=336GSO1=1.78FE | | | | | | V1% [...] following:FVC=5.92FVC% | | | | | | blnotuwrv=209UGH8=8.35FE | | | | | | V1% [...] Owens, | | | | | | DIRECTOR OF RECRUITMENT | | | | + + + [...] [facility] | [address] | [place], [place] | | | THERAPY | [address] | [address] | | + + + + + | [facility] | [address] | [facility] [place] | | | THERAPY | [address] [facility] | [address] | | + + + + + documented in this encounter Visit Diagnoses Not on filedocumented in this encounter
--- OUTSIDE RECORDS SUMMARY | ~2019-04-25 | XMS | Encounter Summary ---
Demographics + + + | Address | [address] | | | [place] [address] | + + + | Home Phone [...] [place] | | | | | [address] | | + + + + + Care Team Providers + +------+ + | Care Shell Maker Lockstitch Name | Role | Phone | + [...] | | | | | | [place], | | | | | | [place] [address] | | | | | | [phone] | | | +--------+ + + + [...] + + | 04/29/ | Diagnostic | Putty Patcher | Marce Meyer | | | 2019 | Visit | | Eve Briseno [address] | | | | | | [address] | | | | | | [place] | | | | | | [address] | | +--------+ + + + + documented as of this encounter Visit Diagnoses Not on filedocumented in this encounter"
--- OUTSIDE RECORDS SUMMARY | ~2019-04-25 | XMS | Encounter Summary ---
Demographics + + + | Address | [address] | | | [place] [address] | + + + | Home Phone [...] [place] | | | | | [address] | | + + + + + Care Team Providers + +------+ + | Care Catering Sales Manager Name | Role | Phone | [...] 2013 | on | Cochlear Services | [facility] [address] | | | | | [address] | [address] | | | | | Toya Spencer Mailcode: | [place], [place] | | | | | [address] Physician's | [address] | | | | | [place], | | | | | | [place] [address] | | | | | | [phone] | | | +--------+ + + + [...] + + | 04/29/ | Diagnostic | Sharepoint Developer | Marce Meyer | | | 2019 | Visit | | Eve Briseno [address] | | | | | | [address] | | | | | | [place], [place] | | | | | | [address] | | +--------+ + + + + documented as of this encounter Visit Diagnoses Not on filedocumented in this encounter"
--- OUTSIDE RECORDS SUMMARY | ~2019-04-25 | XMS | Encounter Summary ---
Demographics + + + | Address | [address] | | | [place] [address] | + + + | Home Phone [...] [place] | | | | | [address] | | + + + + + Care Team Providers + +------+ + | Care Elementary Classroom Teacher Name | Role | Phone | [...] [place] | | | | | | [address] | | | | | | [phone] | | | | | | | [...] + + | 04/29/ | Diagnostic | Watermelon Inspector | Marce Meyer | | | 2019 | Visit | | Eve Briseno [address] [facility] | | | | | | [address] | | | | | | [place], [place] | | | | | | [address] | | +--------+ + + + + documented as of this encounter Procedures + +--------+ + + + | Procedure Name | Priori | Date/Time | Associated Diagnosis | Comments | | | ty | | | | + +--------+ + + + | ABDOMEN AND PELVIS | Routin | 08/01/2008 | | Results for this | | WITH 63003 | e | 5:16 PM | | [...] this encounter Results ABDOMEN AND PELVIS WITH 85962 (08/01/2008 5:16 PM PST) + + | [...] | | segment of right hepatic lobe. #[id number] | | + + + + + [...] theposterior segment of right hepatic | | lobe.#[id number] | |prostate gland and seminal vesicals are grossly within normal limits. | |IMPRESSION: | |1. No abdominal or pelvic mass. | |2. No evidence of intestinal obstruction. | |3. Umbilical hernia containing omental fat. No herniation of small | |or large bowel loops. | |4. Fatty infiltration of the liver. Focal granuloma within the | |posterior segment of right hepatic lobe. | |#[id number] | + + + +---------+ + + [...] | + + + + + | [facility] | And | [place] [address] | | | [facility] [place] | Streets | | | + + [...] + + + | BANDS % | ACADEMIC SERVICES COORDINATOR | 0 - 7 % | [...] + + | [facility] | [address] | [place] [address] | | | MEDICAL CENTER | Streets [...] +-------+ + + + | COUMADIN | ACADEMIC SERVICES COORDINATOR | | [facility] | | | CURRENT | | | A MEDICAL | | | DOSE | | | CENTER | | + +-------+ + + + | LAST DOSE | ACADEMIC SERVICES COORDINATOR | | [facility] | | | DATE | | | A MEDICAL | | | | | | CENTER | | + +-------+ + + + | LAST DOSE | ACADEMIC SERVICES COORDINATOR | | [facility] | | | TIME [...] | + + + + + | [facility] | And | [place] [address] | | | [facility] | Streets | | | + + [...] + + + | LAST DOSE | [id number] | | [facility] | | | DATE [...] + + | [facility] | And | [place] [address] | | | MEDICAL CENTER | Streets [...] [facility] | | [place] [address] | | | [facility] | [facility] | | | + + + + + documented in this encounter Visit Diagnoses Not on filedocumented in this encounter"
--- OUTSIDE RECORDS SUMMARY | ~2019-04-25 | XMS | Encounter Summary ---
Demographics + + + | Address | [address] | | | [place] [address] | + + + | Home Phone [...] [place] | | | | | [address] | | + + + + + Care Team Providers + +------+ + | Care Manager Universal Name | Role | Phone | + [...] [facility] [address] | [address] [facility] | | | | | [address] | Rd [place], [place] | | | | | Mailcode: PV01 | [id number] | | | | | Physician's Chris | | | | | | [place], [place] | | | | | | [address] | | | | | | [phone] | | | +--------+ + + + [...] + + | 04/29/ | Diagnostic | Dandy Tender | Marce Meyer | | | 2019 | Visit | | Eve Briseno [address] [facility] | | | | | | [address] | | | | | | [place] | | | | | | [address] | | +--------+ + + + + documented as of this encounter Visit Diagnoses Not on filedocumented in this encounter"
--- OUTSIDE RECORDS SUMMARY | ~2019-04-25 | XMS | Encounter Summary ---
Demographics + + + | Address | [address] | | | [place] [address] | + + + | Home Phone [...] Author + + + | Author | [facility] | + + + | Organization | [facility] | + + + | Address | Unknown | + + + | Phone | Unavailable | + + + Support + + + + + | Name | Relationship | Address | Phone | + + + + + | Margarito Owusu | ECON | [address] | | | | | [place] | | | | | [address] | | + + + + + Care Team Providers + +------+ + | Care Associate Professor Of Economics Name | Role | Phone | + [...] | | 2008 | | Medical at [facility] | MD [address] | | | | | Floor [address] | [place], [place] | | | | | Ave Mailcode: CH16D | [address] | | | | | [facility] | [phone] | | | | | and Healing, | | | | | | [facility] | | | | | | Floor [place], [place] | | | | | | [address] | | | | | | [phone] | | | +--------+--------+ + + + [...] + + | 04/29/ | Diagnostic | Watch Dial Maker | Marce Meyer | | | 2019 | Visit | | Eve Briseno [address] [facility] | | | | | | [address] | | | | | | [place] | | | | | | [address] | | +--------+ + + + + documented as of this encounter Visit Diagnoses Not on filedocumented in this encounter"
--- OUTSIDE RECORDS SUMMARY | ~2019-04-25 | XMS | Encounter Summary ---
Demographics + + + | Address | [address] | | | [place] [address] | + + + | Home Phone [...] [place] | | | | | [address] | | + + + + + Care Team Providers + +------+ + | Care Motor Coach Tour Operator Name | Role | Phone | [...] CANAL WALL | | | | Rd [place] | | DOWN, | | | | [facility] Amb[facility] | | | | | | Surgery Admitting | | | | | | Desk Located on the | | | | | | 4th floor, Room | | | | | | [address] [place] [address] | | | | | | [address] | | | +--------+---------+ + + + [...] office to get your questions answered: Call [phone] during business hours. Call [phone] after 5:00pm and weekends or holidays Call: [facility] Otolaryngology Resident at If you [...] + | 04/29/ | Diagnostic | Customer Service Security Officer | Marce Meyer | | | 2019 | Visit | | Eve Briseno [address] [facility] | | | | | | [address] | | | | | | [place], [place] | | | | | | [address] | | +--------+ + + + + [...] 12/22/2013ttending | | Surgeon: Willie Plunkett MD Lithopress Operator(s): Rosmery Hernandez | | MD Juan Preop [...] 12/22/2013 17:21:43DT: 12/22/2013 | | 18:57:53Job #: [id number] | |FMW/JONOL | | | | | | /[id number] | + + CAPILLARY BLOOD GLUCOSE (NO [...] LAUGHLIN | [address] | [place], [place] | | | LUCERO POINT OF CARE | [address] | [address] | | | TESTS | | | [...] MARQUAM | [address] | [place], [place] | | | LUCERO POINT OF CARE | [address] | [address] | | | TESTS | | | [...] Cristofer | | | | | | oDnnell Son | | | | | | [...] | + + + + + | [facility] | [address] | [place] [address] | | | PATHOLOGY | [address] [...] 2:53 | | | | | dose, [facility] 12/22/13 at 1530 | | PM PDT | | | | + +--------+ + +------+------+ + +---+ | | | + +---+ | acetaminophen (TYLENOL) tablet | | | 1 dose, Starting [facility] 12/22/13 at | | | 1448, Until [...] | | | | | 1 dose, [facility] 12/22/13 at 1515 | | PM PDT [...]
--- OUTSIDE RECORDS SUMMARY | ~2019-04-25 | XMS | Encounter Summary ---
Demographics + + + | Address | [address] | | | [place] [address] | + + + | Home Phone [...] [place] | | | | | [address] | | + + + + + Care Team Providers + +------+ + | Care Applications Scientist Name | Role | Phone | + [...] Dx) | | | | [facility] [address] [facility] | | | | | | [address] | | | | | | Mailcode: PV01 | | | | | | Physician's Chris | | | | | | [place], [place] | | | | | | [address] | | | | | | [phone] | | | +--------+---------+ + + + [...] original. Otology-Neurotology Pre-op Note PATIENT: Edgar Marquez [facility] MR#: [id number] DATE OF SERVICE: 12/06/2013 Procedure: Right revision [...] on 12/22/13 Recommendation(s). - He will see [facility] today for preop clearance - to [place] for above procedure on 12/22 -PARQ held regarding procedure, all questions answered, consent signed -postop prescriptions provided Seen and evaluated with Dr. Willie Plunkett. This note was scribed by MARY Ruiz MD Vegetable Tester Otology, Neurotology & Skull Base Surgery documented in this en counter Plan of Treatment +--------+ + + + + | Date | Type | Specialty | Care Team | Description | +--------+ + + + + | 04/29/ | Diagnostic | Informatics Educator | Marce Meyer | | | 2018 | Visit | | Eve Briseno [address] [facility] | | | | | | [address] | | | | | | [place], [place] | | | | | | [address] | | +--------+ + + + + documented as of this encounter Visit Diagnoses + + | Diagnosis | + + | Cholesteatoma of ear - Primary Cholesteatoma, unspecified | + + documented in this encounter"
--- OUTSIDE RECORDS SUMMARY | ~2019-04-25 | XMS | Encounter Summary ---
Demographics + + + | Address | [address] | | | [place] [address] | + + + | Home Phone [...] [place] | | | | | [address] | | + + + + + Care Team Providers + +------+ + | Care Title Coordinator Name | Role | Phone | + +------+ + | Kerri Chavarria NP | PCP | | + +------+ + Encounter Details +--------+ + + + + | Date | Type | Department | Care Team | Description | +--------+ + + + + | 04/21/ | Abstract | Digestive Health | Clinic, Surgery | | | 2011 | | [place] [facility] [address] | | | | | | [address] | | | | | | Mailcode: [place] | | | | | | [facility] and | | | | | | Healing, Building [address] | | | | | | [place], [place] | | | | | | [address] | | | | | | [phone] | | | +--------+ + + + [...] + + | 04/29/ | Diagnostic | Hand Iii Cutter | Marce Meyer | | | 2019 | Visit | | Eve Briseno [address] [facility] | | | | | | [address] | | | | | | [place] | | | | | | [address] | | +--------+ + + + + documented as of this encounter Visit Diagnoses Not on filedocumented in this encounter"
--- OUTSIDE RECORDS SUMMARY | ~2019-04-25 | XMS | Encounter Summary ---
Demographics + + + | Address | [address] | | | [place] [address] | + + + | Home Phone [...] [place] | | | | | [address] | | + + + + + Care Team Providers + +------+ + | Care Prototype Technician Name | Role | Phone | [...] Refill Request | | 2012 | | [place] [address] [address] | [address] | | | | | [address] | [place], [place] | | | | | Mailcode: [place] | [address] | | | | | [facility] and | [phone] | | | | | [facility] | | | | | | [place], [place] | | | | | | [address] | | | | | | [phone] | | | +--------+--------+ + + + [...] + + | 04/29/ | Diagnostic | Digital Marketing Officer | Marce Meyer | | | 2019 | Visit | | Eve Briseno [address] [facility] | | | | | | [address] | | | | | | [place] | | | | | | [address] | | +--------+ + + + + documented as of this encounter Visit Diagnoses Not on filedocumented in this encounter"
--- OUTSIDE RECORDS SUMMARY | ~2019-04-25 | XMS | Encounter Summary ---
Demographics + + + | Address | [address] | | | [place] [address] | + + + | Home Phone [...] [place] | | | | | [address] | | + + + + + Care Team Providers + +------+ + | Care Spaghetti Press Helper Name | Role | Phone | [...] | | address) | | | | [place], [place] | | | | | | [address] | | | | | | [phone] | | | +--------+ + + + [...] + + | 04/29/ | Diagnostic | Eap Counselor | Marce Meyer | | | 2019 | Visit | | Eve Briseno [address] [facility] | | | | | | [address] | | | | | | [place] | | | | | | [address] | | +--------+ + + + + documented as of this encounter Visit Diagnoses Not on filedocumented in this encounter"
--- OUTSIDE RECORDS SUMMARY | ~2019-04-25 | XMS | Encounter Summary ---
Demographics + + + | Address | [address] | | | [place] [address] | + + + | Home Phone [...] [place] | | | | | [address] | | + + + + + Care Team Providers + +------+ + | Care Advanced Nursing Professor Name | Role | Phone | [...] | | 2012 | | Center at [facility] [address] | [address] | | | | | [address] | [facility] [place] | | | | | Mailcode: [place] | [address] | | | | | for Health and | [phone] | | | | | [facility] [address] | | | | | | [place], [place] | | | | | | [address] | | | | | | [phone] | | | +--------+ + + + [...] + + | 04/29/ | Diagnostic | Railcar Mechanic | Marce Meyer | | | 2019 | Visit | | Eve Briseno [address] [place] [address] | | | | | | [address] | | | | | | [place] | | | | | | [address] | | +--------+ + + + + documented as of this encounter Visit Diagnoses Not on filedocumented in this encounter"
--- OUTSIDE RECORDS SUMMARY | ~2019-04-25 | XMS | Encounter Summary ---
Demographics + + + | Address | [address] | | | [place] [address] | + + + | Home Phone [...] [place] | | | | | [address] | | + + + + + Care Team Providers + +------+ + | Care Art Therapist Name | Role | Phone | + +------+ + | Kerri Chavarria DELIVERY AIDE | PCP | | + +------+ + [...] Ventral | Ayana Jovel MD | [facility] [address] | | | | | hernia | [address] | [address] | | | | | Procedures | Ave | [address] | | | | | CT ABDOMEN & | [place], [place] | Mailcode: | | | | | PELVIS WWO | [address] | [address] [facility] | | | | | IV CONTRAST | Phone: | Hospital | | | | | | [phone] | [place], [place] | | | | | | Fax: | [address] | | | | | | [phone] | Phone: | | | | | | | [phone] | | | | | | | Fax: | | | | | | | [phone] | +--------+--------+ + + + + Consultation [...] | | | | | unspecified | [address] | [address] | | | | | type | Ave | [address] | | | | | diabetes | [place] | [place], | | | | | mellitus | [address] | [place] | | | | | without | Phone: | [address] | | | | | mention of | [phone] | | | | | | complication | Fax: | | | | | | , not stated | [phone] | | | | | | as [...] Ventral | Ayana Jovel MD | [facility] [address] | | | | | hernia | [address] | [address] | | | | | Procedures | Ave | [address] [place] | | | | | CT ABDOMEN & | [place], [place] | Mailcode: | | | | | PELVIS WWO | [address] | [address] [facility] | | | | | IV CONTRAST | Phone: | [facility] | | | | | | [phone] | [place], [place] | | | | | | Fax: | [address] | | | | | | [phone] | Phone: | | | | | | | [phone] | | | | | | | Fax: | | | | | | | [phone] | +--------+--------+ + + + + Reason [...] | | CONSULT TO | | Rd [place], | | | | | SURGERY - | | [place] | | | | | GENERAL | | [address] | | | | | | | Phone: | | | | | | | [phone] | | | | | | | Fax: | | | | | | | [phone] | +--------+ + + + + + Encounter Details +--------+---------+ + + + | Date | Type | Department | Care Team | Description | +--------+---------+ + + + | 05/21/ | Office | Digestive Health | Ayana Butler W, | Ventral hernia | | 2011 | Visit | [place] [facility] [address] | MD [address] | (Primary Dx) | | | | [address] | [facility] [place] | | | | | Mailcode: [place] | [address] | | | | | for Health and | [phone] | | | | | [facility] 2 | | | | | | [place], [place] | | | | | | [address] | | | | | | [phone] | | | +--------+---------+ + + + [...] might be different fro m the original. [facility] Initial Visit 05/21/2012 ID: The [...] infection. The pt has been seen at [facility] as well as [facility] for treatment, with no resolution. Mr Alma is an activel smoker, currently smoking approx 2pack/day of cigarettes. Pt hist ory implies use of marijuana as well. He also has a history of COPD, Diabetes, ID and chron ic pain stemming from L2-5 [...] that and none for rest of [facility] Drug Use: Yes Special: Oral, Smoke Medical marijuana Social History Narrative Pt is living in facility in the [facility]. Has caregiver.Frequent incarcerations in the past with much of his younger life spent in the penitentiary system--no fdc time x 7 years Current Medication List [...] mg tab was phoned into the Pt [facility] Ph brian @ [phone]. Tdocumented in this encounter Plan of Treatment +--------+ + + + + | Date | Type | Specialty | Care Team | Description | +--------+ + + + + | 04/29/ | Diagnostic | Photoresist Contact Printer | Marce Meyer | | | 2019 | Visit | | Eve Briseno [address] [facility] | | | | | | [address] | | | | | | [place], [place] | | | | | | [address] | | +--------+ + + + + [...] | | | | Final | | [place] | | | | CULTURE RESULT:No | [...] + | [facility] - | [address] | [place] [address] | | | [facility] | | | | + + + + + documented in this encounter Visit Diagnoses + + | Diagnosis | + + | Ventral hernia - Primary Ventral hernia, unspecified, without mention of obstruction | | or gangrene | + + documented in this encounter
--- OUTSIDE RECORDS SUMMARY | ~2019-04-25 | XMS | Encounter Summary ---
Demographics + + + | Address | [address] | | | [place] [address] | + + + | Home Phone [...] [place] | | | | | [address] | | + + + + + Care Team Providers + +------+ + | Care Business Banking Relationship Manager Name | Role | Phone | [...] + + + | Closed | | Low Pressure Kettle Operator | | Ciaran, | Ent | | | | | | nEder Perdomo, | Cochlear [facility] | | | | | | MD | [address] | | | | | | [place] | [address] | | | | | | [facility] | Rd Mailcode: | | | | | | CLINIC [address] | [address] | | | | | | [address] | Physician's | | | | | | [place], | Chris | | | | | | [place] [address] | [place], [place] | | | | | | Phone: | [address] | | | | | | [phone] | Phone: | | | | | | Fax: | [phone] | | | | | | [phone] | Fax: | | | | | | | [phone] | +--------+--------+ + + + + Encounter Details +--------+---------+ + + + | Date | Type | Department | Care Team | Description | +--------+---------+ + + + | 04/27/ | Office | Otolaryngology | Pascual Pace, | Sensorineural | | 2012 | Visit | Audiology Services | MelodieYULIA-Jaleesa [address] | hearing loss, | | | | at [facility] [address] | [address] | unspecified (Primary | | | | [address] | Rd [place], [place] | Dx) | | | | Mailcode: PV01 | [address] | | | | | [facility] | | | | | | [place], [place] | | | | | | [address] | | | | | | [phone] | | | +--------+---------+ + + + [...] encounter Progress Notes Melodie Mayfield CCC-A - 04/27/2012 2:32 PM Jamesluli Marquez is a 46 y.o. Male w ho was seen today for troubleshooting of his N24/Nucleus 5 cochlear implant device. 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 Troubleshooting revealed that Mr. Marquez's remote was not paired with his current processor. The patient was instructed on how to pair the two and was given Hear Always contact number for future tr oubleshooting problems. Mr. Marquez was not interested in having speech perception testing completed at today's visit as he was anxious to get home. It was recommended that Mr. Reyna rd return for CI follow up in approximately one year, or before that time on an as needed ba sis. Melodie Herbert M.A., YULIA-A Clinical & Rehabilitative Low Pressure Kettle Operator [facility] Cochlear Implant Program Department of Otolaryngology/Head & Neck Surgery documented in t his encounter Plan of Treatment +--------+ + + + + | Date | Type | Specialty | Care Team | Description | +--------+ + + + + | 04/29/ | Diagnostic | Low Pressure Kettle Operator | Marce Meyer | | | 2019 | Visit | | Eve Briseno [address] [facility] | | | | | | [address] | | | | | | [place], [place] | | | | | | [address] | | +--------+ + + + + documented as of this encounter Procedures + +--------+ + + + | Procedure Name | Priori | Date/Time | Associated Diagnosis | Comments | | | ty | | | | + +--------+ + + + | MO UNLISTED | Routin | 04/27/2012 | Sensorineural | | | OTORHINOLARYNG | e | 2:36 PM | hearing loss, | | | SERVICE/PROC | | PDT | unspecified | | + +--------+ + + + documented in this encounter Visit Diagnoses + + | Diagnosis | + + | Sensorineural hearing loss, unspecified - Primary | + + documented in this encounter"
--- OUTSIDE RECORDS SUMMARY | ~2019-04-25 | XMS | Encounter Summary ---
Demographics + + + | Address | [address] | | | [place] [address] | + + + | Home Phone [...] [place] | | | | | [address] | | + + + + + Care Team Providers + +------+ + | Care Square Cutter Name | Role | Phone | + [...] lira | | | | [facility] [address] [facility] | | specify which | | | | [address] | | provider he needs to | | | | Mailcode: PV01 | | see in clinic ) | | | | Physician's Chris | | | | | | [place], [place] | | | | | | [address] | | | | | | [phone] | | | +--------+ + + + [...] + + | 04/29/ | Diagnostic | House Director | Marce Meyer | | | 2019 | Visit | | Eve Briseno [address] [facility] | | | | | | [address] | | | | | | [facility] [place] | | | | | | [address] | | +--------+ + + + + documented as of this encounter Visit Diagnoses Not on filedocumented in this encounter"
--- OUTSIDE RECORDS SUMMARY | ~2019-04-25 | XMS | Encounter Summary ---
Demographics + + + | Address | [address] | | | [place] [address] | + + + | Home Phone [...] [place] | | | | | [address] | | + + + + + Care Team Providers + +------+ + | Care Airport Manager Name | Role | Phone | [...] | | 2017 | | Center at [facility] [address] | MD [address] | | | | | [address] | [place], [place] | | | | | Mailcode: [place] | [address] | | | | | for Health and | [phone] | | | | | [facility] | | | | | | [place], [place] | | | | | | [address] | | | | | | [phone] | | | +--------+ + + + [...] + + | 04/29/ | Diagnostic | Stable Hand | Marce Meyer | | | 2019 | Visit | | Eve Briseno [address] [facility] | | | | | | [address] | | | | | | [facility] [place] [place] [place] | | | | | | [address] | | +--------+ + + + + documented as of this encounter Visit Diagnoses Not on filedocumented in this encounter"
--- OUTSIDE RECORDS SUMMARY | ~2019-04-25 | XMS | Encounter Summary ---
Demographics + + + | Address | [address] | | | [place] [address] | + + + | Home Phone [...] [place] | | | | | [address] | | + + + + + Care Team Providers + +------+ + | Care Aquatic Physiotherapist Name | Role | Phone | + [...] [place] | | | | | | [address] | | | | | | [phone] | | | | | | | [...] + + | 04/29/ | Diagnostic | Africana Studies Professor | Marce Meyer | | | 2019 | Visit | | Eve Briseno [address] [facility] | | | | | | [address] | | | | | | CENTER [place], [place] | | | | | | [address] | | +--------+ + + + + [...] | Results for this | | WITH 29[address] | e | 11:46 PM | | procedure are in the | | | | PST | | results section. | + +--------+ + + + | ABDOMEN 1 VIEW [address]22 | Routin | 08/11/2008 | | Results [...] POINT | | | GLUCOSE, | ID: [id number]: | | OF CARE | | | POC | [id number] Brooke Fuentes | | TESTING | | | |Mri Specialist: [id number] Brooke Fuentes | | | | | [...] POINT | | | GLUCOSE, | ID: [id number]: | | OF CARE | | | POC | [id number] Kadi Allison | | TESTING | | | |Mri Specialist: [phone] Kadi Allison | | | | | [...] + + + + | WBC, | ELECTRONICS REPAIR TECHNICIAN | X10 3/uL | [facility] | | | ADJUSTED | | | A MEDICAL | | | | | | CENTER | | + + + + + + | HEMOGLOBIN | 14.5 | 12.0 - 16.0 | [facility] | | | | | g/dL | A MEDICAL | | | | | | CENTER | | + + + + + + | RED BLOOD | 4.60 (L) | 4.7 - 6.1 X10 | [facility] | | | CELL COUNT | | 6/uL | A MEDICAL | | | | | | CENTER | | + + + + + + | HEMATOCRIT | 41.2 | 40.0 - 54.0 % | [facility] | | | | | | [...] + + + | BANDS % | ELECTRONICS REPAIR TECHNICIAN | 0 - 7 % | [facility] | | | | | | A MEDICAL | | | | | | CENTER | | + + + + + + | DIFF | ELECTRONICS REPAIR TECHNICIAN | | [facility] | | | [...] + + + + | BASOPHIL%, | ELECTRONICS REPAIR TECHNICIAN | 0 - 1 % | [facility] | | | MANUAL | | | A MEDICAL | | | | | | CENTER | | + + + + + + | REACTIVE | ELECTRONICS REPAIR TECHNICIAN | 0.0 - 4.0 % | [facility] | | | LYMPHS % | | | A MEDICAL | | | | | | CENTER | | + + + + + + | BANDS % | ELECTRONICS REPAIR TECHNICIAN | 0 - 7 % | [facility] | | | | | | A MEDICAL | | | | | | CENTER | | + + + + + + | METAMYELOCY | ELECTRONICS REPAIR TECHNICIAN | 0 - 0 % | [facility] | | | BRANDON % | | | A MEDICAL | | | | | | CENTER | | + + + + + + | MYELOCYTES | ELECTRONICS REPAIR TECHNICIAN | 0 - 0 % | [facility] | | | % | | | A MEDICAL | | | | | | CENTER | | + + + + + + | PROMYELOCYT | ELECTRONICS REPAIR TECHNICIAN | 0 - 0 % | [facility] | | | ES % | | | A MEDICAL | | | | | | CENTER | | + + + + + + | BLASTS | ELECTRONICS REPAIR TECHNICIAN | 0 - 0 % | [...] + + + + | NUCLEATED | ELECTRONICS REPAIR TECHNICIAN | | [facility] | | | RBCS | | | A MEDICAL | | | | | | CENTER | | + + + + + + | GIANT PLT | ELECTRONICS REPAIR TECHNICIAN | | [facility] | | | [...] + + + | [facility] | [address] | [place] [address] | | | MEDICAL CENTER | Streets [...] 4.0 | 3.5 - 5.0 G/DL | [facility] | | | PLASMA | | | A MEDICAL | | | (LAB) | | | CENTER | | + + + + + + | BILIRUBIN | 1.9 (H) | 0.2 - 1.6 MG/DL | [facility] | | | TOTAL | | | A MEDICAL | | | | | | CENTER | | + + + + + + | MAGNESIUM,P | 1.9 | 1.3 - 2.5 MEQ/L | [facility] | | | LASMA | | [...] + + + | [facility] | [address] | [place] [address] | | | MEDICAL CENTER | Streets [...] POINT | | | GLUCOSE, | ID: [id number]: | | OF CARE | | | POC | [id number] Kadi Allison | | TESTING | | | |Mri Specialist: [phone] Kadi Allison | | | | | [...] +---------+ + + + | OTHER | ELECTRONICS REPAIR TECHNICIAN | | [facility] | | | [...] + | [facility] | [address] | [place] [address] | | | [facility] | Streets | | | + + + + + ABDOMEN AND PELVIS WITH [id number] (08/11/2008 11:46 PM PST) + + | [...] small bowel versus | | | hematoma/seroma. [id number] | | + + + + -----+ [...] represents herniated small bowel | | versus hematoma/seroma.[id number] | |IMPRESSION | |1. No evidence of [...] represents herniated small bowel versus hematoma/seroma. | |[id number] | + -----+ + +---------+ + + | Performing | Address | City/State/Zipcode | Phone Number | | Organization | | | | + +---------+ + + | [facility]PARTMENT OF | | | | | RADIOLOGY | | | | + +---------+ + + ABDOMEN 1 VIEW 81009 (08/11/2008 11:46 PM PST) + + | [...] hemidiaphragm or underneath the medial left hemidiaphragm. [id number] | | + + + + + [...] underneath the medial left hemidiaphragm. | | [id number] | + + + +---------+ + + [...] + + + | BANDS % | ELECTRONICS REPAIR TECHNICIAN | 0 - 7 % | [facility] | | | | | | A MEDICAL | | | | | | CENTER | | + + + + + + | CBC | ERROR FLAGS -HEMATOLOGY | | [facility] | | | COMMENTS | INSTR. ELECTRONICS REPAIR TECHNICIAN | | A MEDICAL | | [...] + + + | [facility] | [address] | [place] [address] | | | [facility] | Streets | | | [...] (L) | 98 - 106 MEQ/L | [facility] | | | PLASMA | | [...] 10 | 8 - 30 MG/DL | [facility] | | | (LAB) | | | A MEDICAL | | | | | | CENTER | | + + + + + + | CREATININE | 0.90 | 0.9 - 1.3 MG/DL | [facility] | | | PLASMA | | | A MEDICAL | | | (LAB) | | | CENTER | | + + + + + + | BUN/CREATIN | 11 | 6 - 20 RATIO | [facility] | | | INE RATIO | | | A MEDICAL | | | | | | CENTER | | + + + + + + | CALCIUM, | 9.2 | 8.5 - 10.8 | [facility] | | | PLASMA | | [...] + | [facility] | And | [place] [address] | | | [facility] | Streets | | | [...] POINT | | | GLUCOSE, | ID: [id number]: | | OF CARE | | | POC | [id number] Carlos Fitzpatrick | | TESTING | | [...]
--- OUTSIDE RECORDS SUMMARY | ~2019-04-25 | XMS | Encounter Summary ---
Demographics + + + | Address | [address] | | | [place] [address] | + + + | Home Phone [...] [place] | | | | | [address] | | + + + + + Care Team Providers + +------+ + | Care Multi Share Program Coordinator Name | Role | Phone | [...] as of this encounter Progress Notes Stevie, Gun Striper In - 04/06/2006 3:04 AM PDTCLINIC DATE: [...] dry. Aamir Chan M.D. TONY / [place] [id number] / [id number] / [id number] / [id number] signed by Ramon Hubbard In at 04/06/2006 [...] weeks. Bayron Hirsch M.D. MITCH / MALOR[place] [id number] / [id number] / [id number] / [id number] signed by Stevie, Gun Striper In at 04/06/2006 3:04 AM [facility] umented in this encounter Plan of Treatment +--------+ + + + + | Date | Type | Specialty | Care Team | Description | +--------+ + + + + | 04/29/ | Diagnostic | City Plant Supervisor | Marce Meyer | | | 2019 | Visit | | Eve Briseno [address] [facility] | | | | | | [facility] | | | | | | [place], [place] | | | | | | [address] | | +--------+ + + + + documented as of this encounter Visit Diagnoses Not on filedocumented in this encounter"
--- OUTSIDE RECORDS SUMMARY | ~2019-04-25 | XMS | Encounter Summary ---
Demographics + + + | Address | [address] | | | [place] [address] | + + + | Home Phone [...] [place] | | | | | [address] | | + + + + + Care Team Providers + +------+ + | Care Filenet Architect Name | Role | Phone | + +------+ + | Cee Triana MD | PCP | Unavailable | + +------+ + Encounter Details +--------+ + + + + | Date | Type | Department | Care Team | Description | +--------+ + + + + | 09/09/ | Telephone | Digestive Health | Ayana Butler W, | | | 2012 | | [place] [facility] [place] [address] | [address] | | | | | [place] | [facility] [place] | | | | | Mailcode: [place] | [address] | | | | | for Health and | [phone] | | | | | [facility], [facility] | | | | | | [place], [place] | | | | | | [address] | | | | | | [phone] | | | +--------+ + + + [...] + + | 04/29/ | Diagnostic | Cooler Man | Marce Meyer | | | 2019 | Visit | | Eve Briseno [address] [place] [address] | | | | | | [address] | | | | | | [place] | | | | | | [address] | | +--------+ + + + + documented as of this encounter Visit Diagnoses Not on filedocumented in this encounter"
--- OUTSIDE RECORDS SUMMARY | ~2019-04-25 | XMS | Encounter Summary ---
Demographics + + + | Address | [address] | | | [place] [address] | + + + | Home Phone [...] [place] | | | | | [address] | | + + + + + Care Team Providers + +------+ + | Care Outpatient Therapist Name | Role | Phone | [...] as of this encounter Progress Notes Interface, Store Host In - 03/17/2006 1:00 AM PDTCLINIC DATE: 02/27/2002 PRECOCHLEAR IMPLANT EVALUATION SUBJECTIVE: Mr. Edgar Marquez was seen today for a precochlear implant evaluation. He was accompanied today by his mother. He was referred to us from Dr. Aamir Chna. Mr. Marquez reports a longstanding bilateral severe [...] today's result and the devices available through [facility]. Mr. Marquez's medical evaluation is currently pending with Dr. Chan. Either ear meets candidacy criteria for the implant. Mr. Marquez was then given some information to take home regarding the devices and also the names of some cochlear implant recipients he may want to contact for further information. Mary Baker M.S., C.C.-A. Aamir Chan M.D. [place] / HS [id number] / [id number] / [id number] / [id number] Carleen, Store Host In - 03/17/2006 1:00 AM PDTCLINIC DATE: [...] appears to be normal. Aamir Chan M.D. [facility] / [id number] / [id number] / [id number] / Tdocumented in this encounter Plan of Treatment +--------+ + + + + | Date | Type | Specialty | Care Team | Description | +--------+ + + + + | 04/29/ | Diagnostic | Volleyball Commentator | Marce Meyer | | | 2019 | Visit | | Finn, Eve [address] [facility] | | | | | | [address] | | | | | | [place], [place] | | | | | | [address] | | +--------+ + + + + documented as of this encounter Visit Diagnoses Not on filedocumented in this encounter"
--- OUTSIDE RECORDS SUMMARY | ~2019-04-25 | XMS | Encounter Summary ---
Demographics + + + | Address | [address] | | | [place] [address] | + + + | Home Phone [...] [place] | | | | | [address] | | + + + + + Care Team Providers + +------+ + | Care Home Health Care Social Worker Name | Role | Phone | [...] | | | Willie Valente MD | [facility] [address] | | | | | [place] | [address] | | | | | marta | [address] | [address] | | | | | Procedures | [address] | Mailcode: | | | | | [address] | [place], [place] | [address] [facility] | | | | | [place] | [address] | Hospital | | | | | DISEASE WO | | [facility] [place] | | | | | | | [address] | | | | | | | Phone: | | | | | | | [phone] | | | | | | | Fax: | | | | | | | [phone] | +--------+--------+ + + + + Diagnostic [...] | | | Willie Valente MD | [facility] [address] | | | | | [place] | [address] | [address] | | | | | a | [address] | | | | | Procedures | [address] | Mailcode: | | | | | [address] | [place], [place] | [address] [facility] | | | | | [place] | [address] | Hospital | | | | | DISEASE WO | | [place], [place] | | | | | | | [address] | | | | | | | Phone: | | | | | | | [phone] | | | | | | | Fax: | | | | | | | [phone] | +--------+--------+ + + + + Reason for Visit Diagnostic Testing (Routine) +--------+--------+ + + + + | Status | Reason | Specialty | Diagnoses / | Referred By | Referred To | | | | | Procedures | Contact | Contact | +--------+--------+ + + + + | Closed | | Radiology | Diagnoses | Dimitrios, | [address] Scan | | | | | | Willie Valente MD | [facility] [address] | | | | | [place] | [address] | [address] | | | | | a | Haile | [address] | | | | | Procedures | [address] | Mailcode: | | | | | [address] | [place], [place] | [address] [facility] | | | | | [place] | [address] [facility] | | | | | DISEASE WO | | [place], [place] | | | | | | | [address] | | | | | | | Phone: | | | | | | | [phone] | | | | | | | Fax: | | | | | | | [phone] | +--------+--------+ + + + + Encounter Details +--------+ + + + + | Date | Type | Department | Care Team | Description | +--------+ + + + + | 03/23/ | Hospital | Diagnostic Imaging | | | | 2012 | Encounter | Services at [facility] | | | | | | [address] | | | | | | [address] Mailcode: | | | | | | [address] [facility] | | | | | | [place], [place] | | | | | | [address] | | | | | | [phone] | | | +--------+ + + + [...] + | 04/29/ | Diagnostic | Pattern Assembler | Marce Meyer | | | 2019 | Visit | | Finn, Eve [address] | | | | | | [address] | | | | | | [place] | | | | | | [address] | | +--------+ + + + + documented as of this encounter Procedures + +--------+ + + + | Procedure Name | Priori | Date/Time | Associated Diagnosis | Comments | | | ty | | | | + +--------+ + + + | CT [place] [place] | Routin | 03/23/2013 | Cholesteatoma | Results for this | | DISEASE WO CONTRAST | e | 2:25 PM | | procedure are in the [...] | | + +---------+ + + | [facility] DEPARTMENT OF | | | | | RADIOLOGY | | | | + +---------+ + + documented in this encounter Visit Diagnoses + + | Diagnosis | + + | Cholesteatoma Cholesteatoma, unspecified | + + documented in this encounter"
--- OUTSIDE RECORDS SUMMARY | ~2019-04-25 | XMS | Encounter Summary ---
Demographics + + + | Address | [address] | | | [place] [address] | + + + | Home Phone [...] [place] | | | | | [address] | | + + + + + Care Team Providers + +------+ + | Care Social Media Campaign Manager Name | Role | Phone | + +------+ + | Jaison Chávez MD | PCP | | + +------+ + Encounter Details +--------+ + + + + | Date | Type | Department | Care Team | Description | +--------+ + + + + | 02/10/ | Telephone | Otolaryngology | Willie Plunkett, | | | 2013 | | Otology Services at | | | | | | [facility] [address] | | | | | | [address] | | | | | | Mailcode: PV01 | | | | | | Physician's [address] | | | | | | [place], [place] | | | | | | [address] | | | | | | [phone] | | | +--------+ + + + [...] + + | 04/29/ | Diagnostic | Assessment Expert | Marce Meyer | | | 2019 | Visit | | Finn, Eve [address] | | | | | | [address] | | | | | | [place], [place] | | | | | | [address] | | +--------+ + + + + documented as of this encounter Visit Diagnoses Not on filedocumented in this encounter"
--- OUTSIDE RECORDS SUMMARY | ~2019-04-25 | XMS | Encounter Summary ---
Demographics + + + | Address | [address] | | | [place] [address] | + + + | Home Phone [...] [place] | | | | | [address] | | + + + + + Care Team Providers + +------+ + | Care Bottom Stop Attacher Name | Role | Phone | + [...] | Otolaryngology | Willie Plunkett, | Other ([facility] 12/26 at | | 2013 | [...] of pain -Pls | | | | [place], [place] | | call back ) | | | | [address] | | | | | | [phone] | | | +--------+ + + + [...] + + | 04/29/ | Diagnostic | Photocopy Operator | Marce Meyer | | | 2018 | Visit | | Eve Briseno [address] | | | | | | [address] | | | | | | [place], [place] | | | | | | [address] | | +--------+ + + + + documented as of this encounter Visit Diagnoses Not on filedocumented in this encounter"
--- OUTSIDE RECORDS SUMMARY | ~2019-04-25 | XMS | Clinical Summary ---
Demographics + + + | Address | [address] | | | [place] [address] | + + + | Home Phone | | + + + | Preferred Language | Unknown | + + + | Marital Status | Legally | + + + | Mormon Affiliation | Unknown | + + + | Race | Unknown | + + + | Ethnic Group | Unknown | + + + Author + + + | Author | [employer] [facility] (Historical as of | | | 03-12-19) | + + + | Organization | [facility] (Historical as of | | | 03-12-19) | + + + | Address | Unknown | + + + | Phone | Unavailable | + + + Support + + +---------+ + | Name | Relationship | Address | Phone | + + +---------+ + | No,Contact | ECON | Unknown | | + + +---------+ + Care Team Providers + +------+ + | Care Instructional Coordinator Name | Role | Phone | + +------+ + | Maurice Zelaya MD | PP | | + +------+ + Allergies + [...] + + + + + + | Other-Environmental | Other (See Comments) | Medium | | | + + + + + + | Penicillins | Rash | High | 02/28/20 | | | | | | 11 | | + + + + + + Current Medications + + +--------+---------+------+------+-------+ | Prescription | Sig. | Disp. | Refills | Star | End | Statu | | | | | | t | Date | s | | | | | | Date | | | + + +--------+---------+------+------+-------+ | UNABLE TO FIND | Med Name: medical | | | | | Activ | | | marijuana for pain. | | | | | e | + + +--------+---------+------+------+-------+ | aspirin 325 MG | Take 325 mg by mouth | | | | | Activ | | tablet | as needed for Pain. | | | | | e | + + +--------+---------+------+------+-------+ | atorvastatin | Take 40 mg by mouth | | | | | Activ | | (LIPITOR) 40 MG | daily. | | | | | e | | tablet | | | | | | | + + +--------+---------+------+------+-------+ | carBAMazepine | Take 400 mg by mouth | | | | | Activ | | (TEGRETOL XR) 400 MG | 2 (two) times | | | | | e | | 12 hr tablet | daily. | | | | | | + + +--------+---------+------+------+-------+ | cyclobenzaprine | Take 10 mg by mouth | | | | | Activ | | (FLEXERIL) 10 MG | 3 (three) times | | | | | e | | tablet | daily. | | | | | | + + +--------+---------+------+------+-------+ | doxazosin | Take 4 mg by mouth | | | | | Activ | | (CARDURA) 4 MG | daily. | | | | | e | | tablet | | | | | | | + + +--------+---------+------+------+-------+ | escitalopram | Take 10 mg by mouth | | | | | Activ | | (LEXAPRO) 10 MG | daily. | | | | | e | | tablet | | | | | | | + + +--------+---------+------+------+-------+ | furosemide (LASIX) | Take 20 mg by mouth | | | | | Activ | | 20 MG tablet | daily. | | | | | e | + + +--------+---------+------+------+-------+ | | Take 25 mg by mouth | | | | | Activ | | hydrochlorothiazide | daily. | | | | | e | | (HYDRODIURIL) 25 MG | | | | | | | | tablet | | | | | | | + + +--------+---------+------+------+-------+ | lurasidone | Take 60 mg by mouth | | | | | Activ | | (LATUDA) 60 MG | daily. T | | | | | e | | tablet | | | | | | | + + +--------+---------+------+------+-------+ | levothyroxine | Take 25 mcg by mouth | | | | | Activ | | (SYNTHROID) 25 MCG | every morning | | | | | e | | tablet | before breakfast. | | | | | | + + +--------+---------+------+------+-------+ | lurasidone | Take 80 mg by mouth | | | | | Activ | | (LATUDA) 80 MG | daily. T | | | | | e | | tablet | | | | | | | + + +--------+---------+------+------+-------+ | metFORMIN | Take 1,000 mg by | | | | | Activ | | (GLUCOPHAGE) 1000 MG | mouth 2 (two) times | | | | | e | | tablet | daily with meals. | | | | | | + + +--------+---------+------+------+-------+ | promethazine | Take 25 mg by mouth | | | | | Activ | | (PHENERGAN) 25 MG | nightly. | | | | | e | | tablet | | | | | | | + + +--------+---------+------+------+-------+ | propranolol | Take 40 mg by mouth | | | | | Activ | | (INDERAL) 40 MG | 2 (two) times daily. | | | | | e | | tablet | | | | | | | + + +--------+---------+------+------+-------+ | topiramate | Take 25 mg by mouth | | | | | Activ | | (TOPAMAX) 25 MG | nightly. | | | | | e | | tablet | | | | | | | + + +--------+---------+------+------+-------+ | VENTOLIN HFA 108 | | | 0 | 09/1 | | Activ | | (90 Base) MCG/ACT | | | | 0/20 | | e | | inhaler | | | | 18 | | | + + +--------+---------+------+------+-------+ | losartan (COZAAR) | Take 50 mg by mouth | | 0 | 09/0 | | Activ | | 50 MG tablet | daily. | | | 3/20 | | e | | | | | | 18 | | | + + +--------+---------+------+------+-------+ | omeprazole | | | 0 | 08/2 | | Activ | | (PRILOSEC) 20 MG | | | | 7/20 | | e | | capsule | | | | 18 | | | + + +--------+---------+------+------+-------+ | LATUDA 40 MG | Take 40 mg by mouth | | 0 | 01/2 | | Activ | | tablet | daily. | | | 8/20 | | e | | | | | | 19 | | | + + +--------+---------+------+------+-------+ | QUEtiapine | Take 25 mg by mouth | | | | | Activ | | (SEROQUEL) 25 MG | daily. | | | | | e | | tablet | | | | | | | + + +--------+---------+------+------+-------+ | carbidopa-levodopa | Take 1.5 tablets by | 135 | 6 | 02/0 | | Activ | | (SINEMET) 25-100 MG | mouth 3 (three) | tablet | | 1/20 | | e | | per | times daily. | | | 19 | | | | tabletIndications: | | | | | | | | Tremors of nervous | | | | | | | | system | | | | | | | + + +--------+---------+------+------+-------+ | TRELEGY ELLIPTA | | | | 06/ | | Activ | | 100-62.5-25 MCG/INH | | | | 02/12 | | e | | inhaler | | | | 19 | | | + + +--------+---------+------+------+-------+ Active Problems No known active problems Immunizations + + + + | Name | Dates Previously Given | Next Due | + + + + | INFLUENZA PF, | 05/14/2017, 05/08/2016 | | | QUADRIVALENT | | | | (PED/ADOL/ADULT) | | | + + + + | INFLUENZA W/PRESERV | 04/16/2018, 05/14/2017, 05/08/2016 | | | QUADRIVALENT | | | | (MULTIDOSE) | | | + + + + | Influenza, Trivalent | 05/02/2011, 07/26/2008 | | | W/Preservative | | | + + + + | Pneumococcal | 09/11/2016 | | | Conjugate 13-valent | | | + + + + | Pneumococcal | 07/26/2008, 06/21/2004 | | | Polysaccharide | | | | 23-valent | | | + + + + | Td | 11/16/2014 | | + + + + | Tdap | 03/03/2006 | | + + + + | Varicella | 05/15/2017 | | + + + + Family History + + +------+ + | Medical History | Relation | Name | Comments | + + +------+ + | Diabetes type II | Other | | | + + +------+ + + +------+--------+ + | Relation | Name | Status | Comments | + +------+--------+ + | Other | | | | + +------+--------+ + Social History + +-------+ +--------+------+ | Tobacco Use | Types | Packs/Day | Years | Date | | | | | Used | | + +-------+ +--------+------+ | Former Smoker | | | | | + +-------+ +--------+------+ + +---+---+---+ | Smokeless Tobacco: | [...] on file | | + + + Last Filed Vital Signs + + + + | Vital Sign | Reading | Time Taken | + + + + | Blood Pressure | 124/84 | 01/11/2019 9:19 AM PDT | + + + + | Pulse | 73 | 01/11/2019 9:19 AM PDT | + + + + | Temperature | - | - | + + + + | Respiratory Rate | - | - | + + + + | Oxygen Saturation | 97% | 01/11/2019 9:19 AM PDT | + + + + | Inhaled Oxygen | - | - | | Concentration | | | + + + + | Weight | 118.8 kg (262 lb) | 01/11/2019 9:19 AM PDT | + + + + | Height | 182.9 cm (6') | 01/11/2019 9:19 AM PDT | + + + + | Body Mass Index | 35.53 | 01/11/2019 9:19 AM PDT | + + + + Plan of Treatment + + + + + | Health Maintenance | Due Date | Last Done | Comments | + + + + + | Colon Cancer | | | | | Screening | 4 | | | | (Colonoscopy) | | | | + + + + + | Vaccine: Zoster (1 | | | | | of 2) | 7 | | | + + + + + | Vaccine: Influenza | | 04/16/2018, 05/14/2017, | | | (#1) | 9 | 05/14/2017, Additional history | | | | | exists | | + + + + + | Vaccine: | | 11/16/2014, 03/03/2006 | | | Dtap/Tdap/Td (3 - | 5 | | | | Td) | | | | + + + + + Results Not on filefrom Last 3 Months Insurance + +--------+ +------+-------+ + | Payer | Benefi | Subscriber | Type | Phone | Address | | | t Plan | ID | | | | | | / | | | | | | | Group | | | | | + +--------+ +------+-------+ + | MEDICAID | [place] | [id number] | | | [address] | | | N | | | | [place] | | | [place] | | | | [address] | | | [employer]GGLE [employer]ESS OPERATOR | | | | | + +--------+ +------+-------+ + + +--------+ +--------+ + + | Guarantor Name | Accoun | Relation to | Date | Phone | Billing Address | | | t Type | Patient | of | | | | | | | | | | + +--------+ +--------+ + + | KISHOR VIVAR | Person | Self [birth year] Home: | [address] [place] | | | al/Kumar | | 1966 | [phone] [address] [place], | | | gabe | | | 2017 | [place] [address] | + +--------+ +--------+ + +"
--- OUTSIDE RECORDS SUMMARY | ~2019-04-25 | XMS | Encounter Summary ---
Demographics + + + | Address | [address] | | | [place] [address] | + + + | Home Phone [...] [place] | | | | | [address] | | + + + + + Care Team Providers + +------+ + | Care Concrete Mixing Plant Laborer Name | Role | Phone | [...] 2009 | on | Hearing | Mel[facility]ie [facility] [address] | | | | | Amplification | [address] | | | | | Services [address] [place], [place] | | | | | [address] | [address] | | | | | Mailcode: [id number] | | | | | | Physician's Chris | | | | | | [place], [place] | | | | | | [address] | | | | | | [phone] | | | +--------+ + + + [...] + + | 04/29/ | Diagnostic | Hotel Assistant General Manager | Marce Meyer | | | 2019 | Visit | | Eve Briseno [address] | | | | | | [address] | | | | | | [facility] [place] | | | | | | [address] | | +--------+ + + + + documented as of this encounter Visit Diagnoses Not on filedocumented in this encounter"
--- OUTSIDE RECORDS SUMMARY | ~2019-04-25 | XMS | Encounter Summary ---
Demographics + + + | Address | [address] | | | [place] [address] | + + + | Home Phone [...] Author + + + | Author | [facility] | + + + | Organization | [facility] | + + + | Address | Unknown | + + + | Phone | Unavailable | + + + Support + + + + + | Name | Relationship | Address | Phone | + + + + + | Margarito Owusu | ECON | [address] | | | | | [place] | | | | | [address] | | + + + + + Care Team Providers + +------+ + | Care Parts Manager Name | Role | Phone | [...] | | E The | MD Lars [address] | | | | Transcribed | [place] | [address] | | | | | [address] | [place] [address] | | | | | | [phone] | | | | | | | [...] + + | 04/29/ | Diagnostic | Process Camera Operator | Marce Meyer | | | 2019 | Visit | | Eve Briseno [address] | | | | | | [address] | | | | | | [place], [place] | | | | | | [address] | | +--------+ + + + + [...] Marcos Villanueva MD - 04/04/2008 2:29 PM [facility] | [facility]ENTER | | REPORT | | OF [id number] [place], [place] [address]DNWM OF OPERATION: | | 04/04/2008SURGEON: Marcos Villanueva [...] endoscopy table in the supineHAGGARDEDGAR | | [id number] DATE: 04/04/08position, an IV was started. The [...] 04/04/2008 09:48:09DT: 04/04/2008 14:20:40Job | | #: [id number]: Jimmy Martinez M.D.Michelle Grothe, | | MARY | | | | | | Electronically | | Signed | | | | | | | | | | | | | | EDGAR Demarco [id number] DATE: 04/04/08 | |[id number] | |ADMIT DATE: 04/04/08 | | | [...] |WALDO/Viraj | | | | | | /[id number] | | | | | |cc: Ashley [...] | | | | |EDGAR VIVAR | |[id number] | |[id number] | |ADMIT DATE: 04/04/08 | + + documented in this encounter Visit Diagnoses Not on filedocumented in this encounter"
--- OUTSIDE RECORDS SUMMARY | ~2019-04-25 | XMS | Encounter Summary ---
Demographics + + + | Address | [address] | | | [place] [address] | + + + | Home Phone [...] [address] | | | | | [place] | | | | | [address] | | + + + + + Care Team Providers + +------+ + | Care Photoradio Operator Name | Role | Phone | [...] | 2012 | | [facility] | [address] | | | | | [place] | [facility] [place] | | | | | Mailcode: [place] | [address] | | | | | for Health and | [phone] | | | | | [facility] [address] | | | | | | [place], [place] | | | | | | [address] | | | | | | [phone] | | | +--------+ + + + [...] + | 04/29/ | Diagnostic | Principal Consultant | Marce Meyer | | | 2019 | Visit | | Eve Briseno [address] [place] [address] | | | | | | [address] | | | | | | [place] | | | | | | [address] | | +--------+ + + + + documented as of this encounter Visit Diagnoses Not on filedocumented in this encounter"
--- OUTSIDE RECORDS SUMMARY | ~2019-04-25 | XMS | Encounter Summary ---
Demographics + + + | Address | [address] | | | [place] [address] | + + + | Home Phone [...] [place] | | | | | [address] | | + + + + + Care Team Providers + +------+ + | Care Tobacco Curer Name | Role | Phone | + [...] as of this encounter Progress Notes Interface, Obstetrics Nurse Practitioner In - 03/25/2006 1:11 AM PDTCLINIC DATE: [...] evaluation. Aamir Chan M.D. TONY / MALORIE [id number] / [id number] / [id number] / [id number] Tdocumented in this encounter Plan of Treatment +--------+ + + + + | Date | Type | Specialty | Care Team | Description | +--------+ + + + + | 04/29/ | Diagnostic | Product Safety Officer | Marce Meyer | | | 2019 | Visit | | Eve Briseno [address] | | | | | | [address] | | | | | | [place] | | | | | | [address] | | +--------+ + + + + documented as of this encounter Visit Diagnoses Not on filedocumented in this encounter"
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
--- OUTSIDE RECORDS SUMMARY | ~2019-04-25 | XMS | Encounter Summary ---
Demographics + + + | Address | [address] | | | [place] [address] | + + + | Home Phone [...] | Margarito Owusu | ECON | [address] | | | | | [place] | | | | | [address] | | + + + + + Care Team Providers + +------+ + | Care Vacuum Cleaner Assembler Name | Role | Phone | [...] + | 04/29/ | Diagnostic | Electrical Electronics Technician | Marce Meyer | | | 2019 | Visit | | Eve Briseno [address] | | | | | | [address] | | | | | | [place], [place] | | | | | | [address] | | +--------+ + + + + [...] | Transcriptions | + + | Interface, Couples Therapist In - 07/16/2005 6:13 AM PST | | [id number] | | [id number] CB Sousa | | Date: 04/09/2004 | | | | Attending Surgeon: Aamir Chan M.D. | | | | Automotive Parts Specialist(s): Ena Pompa MD | | | | [...] | | DS / HS | | [id number] / [id number] / [id number] / [id number] | | | | | + + documented in this encounter Visit Diagnoses Not on filedocumented in this encounter"
--- OUTSIDE RECORDS SUMMARY | ~2019-04-25 | XMS | Encounter Summary ---
Demographics + + + | Address | [address] | | | [place] [address] | + + + | Home Phone [...] [place] | | | | | [address] | | + + + + + Care Team Providers + +------+ + | Care Pattern And Chain Maker Name | Role | Phone | + +------+ + | Cee Triana MD | PCP | Unavailable | + +------+ + Encounter Details +--------+ + + + + | Date | Type | Department | Care Team | Description | +--------+ + + + + | 11/08/ | Telephone | Digestive Health | Ayana Butler W, | | | 2012 | | [place] [facility] [place] [address] | [address] | | | | | [address] | [facility] [place] | | | | | Mailcode: [place] | [address] | | | | | for Health and | [phone] | | | | | [facility] | | | | | | [place], [place] | | | | | | [address] | | | | | | [phone] | | | +--------+ + + + [...] Diagnostic | Bakery Products Checker | Marce Meeyr | | | 2019 | Visit | | Eve Briseno [address] [place] [address] | | | | | | [address] | | | | | | [place] | | | | | | [address] | | +--------+ + + + + documented as of this encounter Visit Diagnoses Not on filedocumented in this encounter"
--- OUTSIDE RECORDS SUMMARY | ~2019-04-25 | XMS | Encounter Summary ---
Demographics + + + | Address | [address] | | | [place] [address] | + + + | Home Phone [...] [place] | | | | | [address] | | + + + + + Care Team Providers + +------+ + | Care Psychiatric Clinician Name | Role | Phone | + +------+ + | Cee Triana MD | PCP | Unavailable | + +------+ + Encounter Details +--------+------+ + + + | Date | Type | Department | Care Team | Description | +--------+------+ + + + | 10/20/ | Lab | Laboratory at [facility] | | Dysuria | | 2012 | | [address] | | | | | | [place], [place] | | | | | | [address] | | | | | | [phone] | | | +--------+------+ + + + [...] + | 04/29/ | Diagnostic | Manager Ed | Marce Meyer | | | 2019 | Visit | | Eve Briseno [address] [facility] | | | | | | [address] | | | | | | [place], [place] | | | | | | [address] | | +--------+ + + + + [...] [facility] | [address] | [place] [address] | | | SERVICES, CORE | PARK [...] [facility] | [address] | [place] [address] | | | SERVICES, CORE | PARK [...] [facility] | [address] | [place] [address] | | | SERVICES, CORE | VASQUEZ RAMIREZ | | | + + + + + documented in this encounter Visit Diagnoses + + | Diagnosis | + + | Dysuria | + + documented in this encounter"
--- OUTSIDE RECORDS SUMMARY | ~2019-04-25 | XMS | Encounter Summary ---
Demographics + + + | Address | [address] | | | [place] [address] | + + + | Home Phone [...] [place] | | | | | [address] | | + + + + + Care Team Providers + +------+ + | Care Senior Backup Administrator Name | Role | Phone | [...] [facility] | | | | | [address] | [place], [place] | | | | | Mailcode: PV01 | [address] | | | | | [facility] | | | | | | [place], [place] | | | | | | [address] | | | | | | [phone] | | | +--------+ + + + [...] + + | 04/29/ | Diagnostic | Case Management Director | Marce Meyer | | | 2019 | Visit | | Eve Briseno [address] | | | | | | [address] | | | | | | [place], [place] | | | | | | [address] | | +--------+ + + + + documented as of this encounter Visit Diagnoses Not on filedocumented in this encounter"
--- OUTSIDE RECORDS SUMMARY | ~2019-04-25 | XMS | Encounter Summary ---
Demographics + + + | Address | [address] | | | [place] [address] | + + + | Home Phone [...] [place] | | | | | [address] | | + + + + + Care Team Providers + +------+ + | Care Forensic Science Examiner Name | Role | Phone | + [...] + + + + | 12/22/ | Anesthesia | [address]N INTRA [address] | Denisa Talavera MD | | | 2014 | Event | [address] [facility] | [address] | | | | | [address] | [facility] | | | | | Pavilion Ambulatory | [place], [place] | | | | | Surgery Admitting | [address] | | | | | Desk Located on the | [phone] | | | | | 4th floor, Room | | | | | | [address] [place], [place] | | | | | | [address] | | | +--------+ + + + + Anesthesia Record + + + + + | Procedure Name | Responsible | Anesthesia Start | Anesthesia Stop Time | | | Anesthesiologist | Time | | + + + + + | RIGHT TYMPANOPLASTY | Julián Alfred, | 12/22/13 1556 | 12/22/13 1734 | | WITH CANAL WALL | MD [...] | Total | + + + | fentaNYL | 50 mcg | + + + | lidocaine 2% | 100 mg | + + + | propofol | 200 mg | + + + | succinylcholine | 140 mg | + + + | lidocaine 4% LTA | 4 mL | + + + | propofol INF | 789,305 mcg | + + + | remifentanil INF | 1,478.7 mcg | + + + | clindamycin (CLEOCIN) IV 600 mg | 900 mg | + + + | HYDROmorphone | 0.5 mg | + + + | dexamethasone | 4 mg | + + + | LR | 1,200 mL | + + + + + | Name | + + | Insp Sevo | + + | Et Sevo | + + | EtN2O % | + + | Insp N2O % | + + + + | No [...] + + + | RETIRE | 09/17/12; 1930; 05/14/17 | 09/17/121929 by | 05/14/17 162 by | | D - | (Automatic [...] + | RETIRE | 12/22/13; 1258; 12/22/13; 1821; | 12/22/13 125 by | 12/22/131821 by | | D - | No; 20; Left; Hand; None; No; | Eliana Hughes | Millicent Pompa RN | | Periph | Positive; Therapy completed | | | | eral | | | | | Line | | | | +--------+ + + + | RETIRE | 12/22/13; 1643; right ear | 12/22/131643 by | 12/22/131822 by | | D [...] + + | 04/29/ | Diagnostic | Oral And Maxillofacial Surgery | Marce Meyer | | | 2019 | Visit | | Finn, Eve [address] | | | | | | [address] | | | | | | [place], [place] | | | | | | [address] | | +--------+ + + + + documented as of this encounter Visit Diagnoses Not on filedocumented in this encounter Administered Medications + +--------+ +--------+------+------+ | Medication Order | MAR | Action | Dose | Rate | Site | | | Action | Date | | | | + +--------+ +--------+------+------+ | clindamycin (CLEOCIN) IV 600 mg | Given | 12/23/19 | 900 mg | | | | 600 mg, intravenous, EVERY 8 | | 14 4:15 | | | | | HOURS, First dose on Lindsay 12/22/13 | | PM PDT | | | | | at 1245, Until Discontinued | | | | | | + +--------+ +--------+------+------+ +---+---+ | | | +---+---+ + +-------+ +------+---+---+ | dexamethasone (DECADRON) | Given | 12/23/19 | 4 mg | | | | injection intravenous, | | 14 4:10 | | | | | INTRAPROCEDURE PRN, Starting Lindsay | | PM PDT | | | | | 12/22/13 at 1610, Until Lindsay | | | | | | | 12/22/13 at 1726 | | | | | | + +-------+ +------+---+---+ +---+---+ | | | +---+---+ + +-------+ +--------+---+---+ | fentaNYL citrate (PF) | Given | 12/23/19 | 50 mcg | | | | (SUBLIMAZE) injection | | 14 4:05 | | | | | INTRAPROCEDURE PRN, Starting Lindsay | | PM PDT | | | | | 12/22/13 at 1605, Until Lindsay | | | | | | | 12/22/13 at 1726, sedation | | | | | | + +-------+ +--------+---+---+ +---+---+ | | | +---+---+ + +-------+ +--------+---+---+ | HYDROmorphone (DILAUDID) | Given | 12/23/19 | 0.5 mg | | | | injection INTRAPROCEDURE PRN, | | 14 4:39 | | | | | Starting Lindsay 12/22/13 at 1639, | | PM PDT | | | | | Until Lindsay 12/22/13 at 1726, | | | | | | | sedation | | | | | | + +-------+ +--------+---+---+ +---+---+ | | | +---+---+ + + + +---+---+---+ | lactated ringers IV | given by | 12/23/19 | | | | | INTRAPROCEDURE CONTINUOUS PRN, | | 14 5:34 | | | | | Starting Lindsay 12/22/13 at 1547, | anesthes | PM PDT | | | | | Until Lindsay 12/22/13 at 1726 | iology | | | | | + + + +---+---+---+ + + +---+---+---+ | given by anesthesiology | 12/23/19 | | | | | | 14 4:51 | | | | | | PM PDT | | | | + + +---+---+---+ | New Bag | 12/23/19 | | | | | | 14 4:27 | | | | | | PM PDT | | | | + + +---+---+---+ +---+---+ | | | +---+---+ + +-------+ +------+---+---+ | lidocaine (LTA) INTRAPROCEDURE | Given | 12/23/19 | 4 mL | | | | PRN, Starting Lindsay 12/22/13 at | | 14 4:07 | | | | | 1607, Until Lindsay 12/22/13 at 1726 | | PM PDT | | | | + +-------+ +------+---+---+ +---+---+ | | | +---+---+ + +-------+ +--------+---+---+ | lidocaine PF (XYLOCAINE MPF) 20 | Given | 12/23/19 | 100 mg | | | | mg/mL (2 %) injection | | 14 4:06 | | | | | INTRAPROCEDURE PRN, Starting Lindsay | | PM PDT | | | | | 12/22/13 at 1606, Until Lindsay | | | | | | | 12/22/13 at 1726 | | | | | | + +-------+ +--------+---+---+ +---+---+ | | | +---+---+ + + + + +--------+---+ | propofol (DIPRIVAN) injection | Restarte | 12/23/19 | 50 | 37.29 | | | INTRAPROCEDURE CONTINUOUS PRN, | d | 14 5:08 | mcg/kg/m | mL/hr | | | Starting [facility] 12/22/13 at 1607, | | PM PDT | in | | | | Until [facility] 12/22/13 at 1726 | | | | | | + + + + +--------+---+ +---------+ + +--------+---+ | New Bag | 12/23/19 | 100 | 74.58 | | | | 14 4:07 | mcg/kg/m | mL/hr | | | | PM PDT | in | | | +---------+ + +--------+---+ +---+---+ | | | +---+---+ + +-------+ +--------+---+---+ | propofol INTRAPROCEDURE PRN, | Given | 12/23/19 | 200 mg | | | | Starting Lindsay 12/22/13 at 1606, | | 14 4:06 | | | | | Until Lindsay 12/22/13 at 1726 | | PM PDT | | | | + +-------+ +--------+---+---+ +---+---+ | | | +---+---+ + + + + +---+---+ | remifentanil (ULTIVA) injection | Rate/Dos | 12/23/19 | 0.175 | | | | INTRAPROCEDURE CONTINUOUS PRN, | e Change | 14 4:54 | mcg/kg/m | | | | Starting Lindsay 12/22/13 at 1613, | | PM PDT | in | | | | Until Lindsay 12/22/13 at 1726 | | | | | | + + + + +---+---+ + + + +---+---+ | Rate/Dose Change | 12/23/19 | 0.2 | | | | | 14 4:26 | mcg/kg/m | | | | | PM PDT | in | | | + + + +---+---+ | New Bag | 12/23/19 | 0.15 | | | | | 14 4:13 | mcg/kg/m | | | | | PM PDT | in | | | + + + +---+---+ +---+---+ | | | +---+---+ + +-------+ +--------+---+---+ | SUCCINYLCHOLINE CHLORIDE 20 | Given | 12/23/19 | 140 mg | | | | MG/ML INJ (PROSED/RSI) | | 14 4:06 | | | | | INTRAPROCEDURE PRN, Starting Lindsay | | PM PDT | | | | | 12/22/13 at 1606, Until Lindsay | | | | | | | 12/22/13 at 1726, Neuromuscular | | | | | | | block | | | | | | + +-------+ +--------+---+---+ +---+---+ | | | +---+---+ documented in this encounter"
--- OUTSIDE RECORDS SUMMARY | ~2019-04-25 | XMS | Encounter Summary ---
Demographics + + + | Address | [address] | | | [place] [address] | + + + | Home Phone [...] [place] | | | | | [address] | | + + + + + Care Team Providers + +------+ + | Care Electrochemist Name | Role | Phone | + [...] [place] | | | | | [address] | [address] | | | | | | [phone] | | | | | | | [...] Notes Sage Brantley - 05/10/2008 5:10 PM [facility] SLEEP STUDY CONSULTATION [address] [place] [address] KISHOR VIVAR DATE OF SERVICE: 05/10/2008 REFERRING [...] he did when he went to bed. [place] sleepiness scale score is filled out with [...] 11.COPD. 12.Hypertension. MEDICATIONS: He is followed at [facility] for his COPD and he is on extensive daily medicines to control this, includin. Flovent 4 times per day. KISHOR VIVAR [id number] ADMIT DATE: 2. ProAir 4 times a [...] pending the results of that study. SCOTT/MedQ /[id number] Electronically Signed Sage Brantley MD KISHOR VIVAR [id number] ADMIT DATE: documented in th is encounter Plan of Treatment +--------+ + + + + | Date | Type | Specialty | Care Team | Description | +--------+ + + + + | 04/29/ | Diagnostic | Vinyl Dipper | Marce Meyer | | | 2019 | Visit | | Eve Briseno [address] [facility] | | | | | | [address] | | | | | | [place] | | | | | | [address] | | +--------+ + + + + documented as of this encounter Visit Diagnoses Not on filedocumented in this encounter
--- OUTSIDE RECORDS SUMMARY | ~2019-04-25 | XMS | Encounter Summary ---
Demographics + + + | Address | [address] | | | [place] [address] | + + + | Home Phone [...] [place] | | | | | [address] | | + + + + + [...] | PhD | | | | | [address] | | | | | | [place] Mailcode: | | | | | | [address] [facility] | | | | | | [place], | | | | | | [place] [address] | | | | | | [phone] | | | +--------+ + + + [...] + + | 04/29/ | Diagnostic | Dry Cleaning Attendant | Marce Meyer | | | 2019 | Visit | | Eve Briseno [address] [facility] | | | | | | [address] | | | | | | [place], [place] | | | | | | [address] | | +--------+ + + + + documented as of this encounter Visit Diagnoses Not on filedocumented in this encounter"
--- OUTSIDE RECORDS SUMMARY | ~2019-04-25 | XMS | Encounter Summary ---
Demographics + + + | Address | [address] | | | [place] [address] | + + + | Home Phone [...] [place] | | | | | [address] | | + + + + + Care Team Providers + +------+ + | Care Blender Laborer Name | Role | Phone | [...] Medical Records | | 2012 | | [place] [facility] [address] | | Review | | | | [address] | | | | | | Mailcode: [place] | | | | | | [facility] | | | | | | [facility] [address] | | | | | | [place], [place] | | | | | | [address] | | | | | | [phone] | | | +--------+ + + + [...] + + | 04/29/ | Diagnostic | Liquid Sugar Melter | Marce Meyer | | | 2019 | Visit | | Eve Briseno [address] [facility] | | | | | | [address] | | | | | | [place] | | | | | | [address] | | +--------+ + + + + documented as of this encounter Visit Diagnoses Not on filedocumented in this encounter"
--- OUTSIDE RECORDS SUMMARY | ~2019-04-25 | XMS | Encounter Summary ---
Demographics + + + | Address | [address] | | | [place] [address] | + + + | Home Phone [...] [place] | | | | | [address] | | + + + + + Care Team Providers + +------+ + | Care Chimney Builder Brick Name | Role | Phone | + [...] | | | | | [facility] [address] [facility] | | | | | | [address] | | | | | | Mailcode: [address] | | | | | | Priya Perez | | | | | | [place], [place] | | | | | | [address] | | | | | | [phone] | | | +--------+ + + + [...] + + | 04/29/ | Diagnostic | Nurse'S Aides Teacher | Marce Meyer | | | 2019 | Visit | | Eve Briseno [address] [facility] | | | | | | [address] | | | | | | [place], [place] | | | | | | [address] | | +--------+ + + + + documented as of this encounter Visit Diagnoses Not on filedocumented in this encounter"
--- OUTSIDE RECORDS SUMMARY | ~2019-04-25 | XMS | Encounter Summary ---
Demographics + + + | Address | [address] | | | [place] [address] | + + + | Home Phone [...] [place] | | | | | [address] | | + + + + + Care Team Providers + +------+ + | Care Haulpak Driver Name | Role | Phone | [...] | | | | | ventral | [address] | [address] | | | | | hernia | [address] | | | | | Visible | [address] | [facility] [place] | | | | | peristalsis | [facility] [place] | [address] | | | | | Procedures | [address] | Phone: | | | | | REQUEST TO | Phone: | [phone] | | | | | SURGERY | [phone] | Fax: | | | | | EAR NOSE THROAT PHYSICIAN | Fax: | [phone] | | | | | NE REPAIR | [phone] | | | | | | RECURR INCIS | | | | | | | | | | | | | | HERNIA,REDUC | | | | | | | NE REPAIR | | | | | | | INCIS HERNIA | | | | | | | W MESH NE | | | | | | | MUSCLE-SKIN | | | | | | | FLAP,TRUNK | | | | | | | NE RESECT | | | | | | [...] | | | | | DOBUTAMINE | [place], [place] | [address] | | | | | ECHOCARDIOGR | [address] | [address] | | | | | AM, ADULT | Phone: | Building | | | | | | [phone] | [place], [place] | | | | | | Fax: | [address] | | | | | | [phone] | Phone: | | | | | | | [phone] | +--------+--------+ + + + + Reason [...] | | | | | | | [place], [place] | | | | | | | [address] | | | | | | | Phone: | | | | | | | [phone] | | | | | | | Fax: | | | | | | | [phone] | +--------+--------+ + + + + Encounter Details +--------+---------+ + + + | Date | Type | Department | Care Team | Description | +--------+---------+ + + + | 07/07/ | Office | Digestive Health | Ayana Butler W, | Ventral hernia | | 2011 | Visit | Center at [facility] [address] | MD [address] | (Primary Dx) | | | | [address] | [place], [place] | | | | | Mailcode: Center | [address] | | | | | for Health and | [phone] | | | | | Healing, Building [address] | | | | | | [place], [place] | | | | | | [address] | | | | | | [phone] | | | +--------+---------+ + + + [...] - 07/07/2012 5:04 PM PSTPATIENT SURGERY INFORMATION [facility] General Surgery Office Toll-free: ext [phone] Surgery Date: August 19, 2011 Procedure: Open [...] from anyone by 7 pm please call [phone]. PARKING Parking for patients is available underneath the [facility] building. Parking is also available in the [facility] Parking structure located across from the emergency depart ment; patient parking available on level 1 and 3. Metered parking is available on the top ev. CHECKING IN FOR SURGERY Hospital Admission (in-patient): Admitting Desk 9th floor of [facility] TRANSPORTATION Day Surgery: If you have had [...] Please notify the general surgery office at [phone] as soon as possible should you nee [...] prior to your surgery. PRODUCTS CONTAINING ASPIRIN [place], Anacin, Anexsia with Codeine, Andynos, Aspirin, Aspirin suppositories, Ascrip tin, Aspergum, Axotal, B-A-C, Baby Aspirin, Khoi, BC Powder, Bexophene, Buffaprin, Bufferin , Buffinol, Cama-Arthritis Strength, Congespirin, [place], Coricidin, Damason, Darvon, Drhaily, Britt-Gesic, Digel, Dolprin #3 Tablets, Donatab, Doxaphene, Duragesic, Easprin, Ecotrin, Emag rin Forte, Emiprin, Emprazil, Equagesic, Equazine M, Excedrin, Fiogesic, Fiorgen PH, Fiorice t, Fiorinal, 4-Way Cold Tablet Gemnisyn, Indocin, Liquprin, Lortab ASA, Magnaprin, Marnal, Meprobamate, Midol, Momentum, N orgesic, Powersite, Orphengesic, Pabalate, P-A-C, Percodan, Presalin, Robaxasil, Roxiprin, Reece eto, Salocol SK-65 Compound, Sine-Aid, Sine-Off,, [place], Supac, Talwin Compound, Trigesic, Tolectin , Traiminicin, Vanquish, ZORprin, Zomax PRODUCTS CONTAINING IBUPROFEN Advil, Aleve, Haltran, Medipren, Midol, Motrin, Naproxyn, Nuprin, Rufen OTHER PRODUCTS WHICH MAY PROMOTE BLEEDING Vitamin E, Gingko Biloba, Marine Fatty Acids, Samson-3 Fish Oil SupplementsElectronically si gned by Lynette [...] mesh due to history of peritonitis and 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 MD AYANA Kennedy MD [facility] [address] Mailcode: [place] [phone] olvia Washington DO - 07/07/2012 3:56 PM [...] He has an appointmen t with the hotel houseman next week. Given his steps towards smoking [...] an. Nolvia Washington, DO General Surgery R2 [phone] documented in this en counter Plan of Treatment +--------+ + + + + | Date | Type | Specialty | Care Team | Description | +--------+ + + + + | 04/29/ | Diagnostic | Coffee Urn Attendant | Marce Meyer | | | 2019 | Visit | | Eve Briseno [address] | | | | | | [address] | | | | | | [place], [place] | | | | | | [address] | | +--------+ + + + + [...]
--- OUTSIDE RECORDS SUMMARY | ~2019-04-25 | XMS | Encounter Summary ---
Demographics + + + | Address | [address] | | | [place] [address] | + + + | Home Phone [...] [place] | | | | | [address] | | + + + + + Care Team Providers + +------+ + | Care Fur Stylist Name | Role | Phone | [...] on | Medicine Clinic at | A, GUIDANCE COUNSELOR [address] | | | | | MPV Floor Day | [address] | | | | | Stay [address] | [place], [place] | | | | | [address] | [address] | | | | | Mailcode: UHN65 | [phone] | | | | | Paola Perez | | | | | | [address] [place], [place] | | | | | | [address] | | | | | | [phone] | | | +--------+ + + + [...] + + | 04/29/ | Diagnostic | Nail Specialist | Marce Meyer | | | 2019 | Visit | | Eve Briseno [address] [facility] | | | | | | [address] | | | | | | [place] | | | | | | [address] | | +--------+ + + + + documented as of this encounter Visit Diagnoses Not on filedocumented in this encounter"
--- OUTSIDE RECORDS SUMMARY | ~2019-04-25 | XMS | Encounter Summary ---
Demographics + + + | Address | [address] | | | [place] [address] | + + + | Home Phone [...] [place] | | | | | [address] | | + + + + + Care Team Providers + +------+ + | Care Ironer Hand Name | Role | Phone | [...] Specialty | | | | nscribed | [place], [place] | [facility] [address] | | | | | [address] | [facility] | | | | | | [place] [address] | | | | | | [phone] | | | | | | | [...] Willett MD - 04/17/2010 9:03 AM [facility] DISCHARGE SUMMARY [address] [place] [address] KISHOR VIVAR DATE OF ADMISSION: 04/16/2010 DATE OF DISCHARGE: 04/17/2010 DISCHARGE DIAGNOSES: Chest pain. FLIGHT/TRANSPORT NURSE: None. PRIMARY CARE PROVIDER: Dr. Sergo Leigh [...] of coronary artery disease who presented to [facility] on 04[facility]16[facility]2010 with a history of chest [...] outpatient basis. DISPOSITION: Discharge to back to [facility]. MEDICATIONS: New medication aspirin. Usual medications continued [...] 12.MiraLAX 17 grams p.r.n. constipation. KISHOR VIVAR [id number] : 61 [id number] ADMIT DATE: 04/16/10 DISCHARGE DATE: 04/17/10 13.Mirtazapine [...] Dr. Leigh regarding the patient's discharge via [employer] and asked him to call me. I also called [facility] to advise them of patient status and ask that they aspirin to his med list. Time required for discharge planning and coordination greater than 30 minutes. /Viraj /[id number] Electronically Signed [id number] MD CB Woo KEVIN R [id number] : 61 [id number] ADMIT DATE: 04/16/10 DISCHARGE DATE: 04/17/10 documented in this encounter Plan of Treatment +--------+ + + + + | Date | Type | Specialty | Care Team | Description | +--------+ + + + + | 04/29/ | Diagnostic | Management Technician | Marce Meyer | | | 2019 | Visit | | Eve Briseno [address] | | | | | | [address] | | | | | | [place] | | | | | | [address] | | +--------+ + + + + documented as of this encounter Visit Diagnoses Not on filedocumented in this encounter"
--- OUTSIDE RECORDS SUMMARY | ~2019-04-25 | XMS | Encounter Summary ---
Demographics + + + | Address | [address] | | | [place] [address] | + + + | Home Phone [...] [place] | | | | | [address] | | + + + + + Care Team Providers + +------+ + | Care Counter Supervisor Name | Role | Phone | + +------+ + | Jaison Chávez MD | PCP | | + +------+ + Encounter Details +--------+ + + + + | Date | Type | Department | Care Team | Description | +--------+ + + + + | 09/22/ | Results | NON-[facility] | Omari [...] + + | 04/29/ | Diagnostic | Landscape Nurseryman | Marce Meyer | | | 2019 | Visit | | Eve Briseno [address] | | | | | | [address] | | | | | | [place], [place] | | | | | | [address] | | +--------+ + + + + documented as of this encounter Procedures + +--------+ + + + | Procedure Name | Priori | Date/Time | Associated Diagnosis | Comments | | | ty | | | | + +--------+ + + + | CBC W/DIFF, REFLEX | Routin | 09/22/2009 | | Results for this | | | e | 9:15 AM | | procedure are in the | | | | PST | | results section. | + +--------+ + + + | TOBRAMYCIN, TROUGH | Routin | 09/22/2009 | | Results for this | | | e | 9:15 AM | | procedure are in the | | | | PST | | results section. | + +--------+ + + + | COMPLETE METABOLIC | Routin | 09/22/2009 | | Results for this | | [...] + | C-REACTIVE PROTEIN | Routin | 09/22/2009 | | Results for this | | | e | 9:15 AM | | procedure are in the | | | | PST | | results section. | + +--------+ + + + documented in this encounter Results TOBRAMYCIN, TROUGH (09/22/2009 9:15 AM PST) + + + + [...] + | [facility] | | [place] [address] | | | [facility] | Streets | | | + + + + + C-REACTIVE PROTEIN (09/22/2009 9:15 AM PST) + + + + + + | Component | Value | Ref Range | Performed | Pathologist | | | | | At | Signature | + + + + + + | C-REACTIVE | 1.12 (H)Comment: Test | <0.80 mg/dL | [facility] | | | PROTEIN | performed at [facility] | | DIAGNOSTICS | | | | [id number] | | -[place] | | | | [address] | | | | | | [address], | | | | | | [place] [address]Tpmyylop | | | | | | : ASHLEY HORTON MD | | | | + + + + + + + + | Specimen | + + | | + + + + + + + | Performing | Address | City/State/Zipcode | Phone Number | | Organization | | | | + + + + + | [facility] | [address] | [place] [address] | [phone] | | [facility] | | | | + + + + + | [facility] | | | | | [facility] | | | | + + + + + CBC Med/PHUONG ORDONEZ (09/22/2009 9:15 AM PST) + + + + + + | Component | Value | Ref Range | Performed | Pathologist | | | | | At | Signature | + + + + + + | WHITE BLOOD | 6.8 | 4.3 - 11.0 X10 | [facility] | | | CELL COUNT | | 3/ul | A MEDICAL | | | | | | CENTER | | + + + + + + | HEMOGLOBIN | 14.3 | 12.3 - 17.0 | [facility] | | | | | g/dL | A MEDICAL | | | | | | CENTER | | + + + + + + | RED BLOOD | 4.71 | 4.7 - 6.1 X10 | [facility] | | | CELL COUNT | | 6/uL | A MEDICAL | | | | | | CENTER | | + + + + + + | HEMATOCRIT | 40.2 | 40.0 - 54.0 % | [facility] | | | | | | A MEDICAL | | | | | | CENTER | | + + + + + + | MCV | 85.3 | 82 - 100 fl | [facility] | | | | | | A MEDICAL | | | | | | CENTER | | + + + + + + | MCH | 30.3 | 28.0 - 32.0 pg | [facility] | | | | | | A MEDICAL | | | | | | CENTER | | + + + + + + | MCHC | 35.5 | 32 - 36 g/dL | [facility] | | | | | | A MEDICAL | | | | | | CENTER | | + + + + + + | RDW | 15.4 (H) | 12 - 15 fL | [facility] | | | | | | A MEDICAL | | | | | | CENTER | | + + + + + + | PLATELET | 142 (L) | 150 - 450 X10 3 [...] + + + + | LYMPHOCYTE | 13.1 (L) | 20 - 50 % | [facility] | | | % | | | A MEDICAL | | | | | | CENTER | | + + + + + + | EOS % | 3.6 | 0 - 5 % | [facility] [...] + + + | BANDS % | ORNAMENT SETTER | 0 - 7 % | [facility] | | | | | | A MEDICAL | | | | | | CENTER | | + + + + + + | SEDIMENTATI | 27 (H) | 1 - 15 MM/HR | [...] + + | [facility] | And | [place] [address] | | | [facility] | [facility] | | | + + + + + COMPLETE METABOLIC SET (NA,K,CL,CO2,BUN,CREAT,GLUC,CA,AST,ALT,BILI TOTAL,ALK PHOS,ALB,PROT TOTAL) (09/22/2009 9:15 AM PST) + + + + [...] 10 | 8 - 30 MG/DL | [facility] | | | (LAB) | | | A MEDICAL | | | | | | CENTER | | + + + + + + | CREATININE | 0.63 (L) | 0.9 - 1.3 MG/DL | [facility] | | | PLASMA | | | [...] + + + + | AST(SGOT) | 33 | 10 - 41 U/L | [facility] [...] + + + + | TOTAL | 7.6 | 6.7 - 8.5 G/DL | [facility] | | | PROTEIN, | | | A MEDICAL | | | PLASMA | | | CENTER | | | (LAB) | | | | | + + + + + + | ALBUMIN, | 4.2 | 3.5 - 5.0 G/DL | [facility] | | | PLASMA | | | A MEDICAL | | | (LAB) | | | CENTER | | + + + + + + | BILIRUBIN | 0.5 | 0.2 - 1.6 MG/DL | [facility] | | | TOTAL | | | A MEDICAL | | | | | | CENTER | | + + + + + + | ESTIMATED | >60.0 | >60 | [facility] | | | GFR | | | [...] + + + | [facility] | [place] | [place] [address] | | | MEDICAL CENTER | Streets | | | + + + + + documented in this encounter Visit Diagnoses Not on filedocumented in this encounter"
--- OUTSIDE RECORDS SUMMARY | ~2019-04-25 | XMS | Encounter Summary ---
Demographics + + + | Address | [address] | | | [place] [address] | + + + | Home Phone [...] [place] | | | | | [address] | | + + + + + Care Team Providers + +------+ + | Care Oncology Consultant Name | Role | Phone | + +------+ + | Cee Triana MD | PCP | Unavailable | + +------+ + Reason for Visit + + + | Reason | Comments | + + + | Ear problem | here for ear and CI check | + + + Office Visit - E/M Services (Routine) +--------+--------+ + + + + | Status | Reason | Specialty | Diagnoses / | Referred By | Referred To | | | | | Procedures | Contact | Contact | +--------+--------+ + + + + | Closed | | Otolaryngolog | | Kong, | Dimitrios, | | | | y | | Cee Briseno MD | Willie Valente MD | | | | | | Bon | [address] | | | | | | [facility] | [facility] | | | | | | Grp | [address] [place], | | | | | | [facility] | [place] | | | | | | [address] | [address] | | | | | | [facility] | | | | | | | [address] | | | | | | | [address] | | | | | | | [place], | | | | | | | [place] [address] | | | | | | | Phone: | | | | | | | [phone] | | | | | | | Fax: | | | | | | | [phone] | | +--------+--------+ + + + + Encounter Details +--------+---------+ + + + | Date | Type | Department | Care Team | Description | +--------+---------+ + + + | 12/10/ | Office | Otolaryngology | Willie Plunkett, | Cholesteatoma of | | 2012 | Visit | Otology Services at | MD | middle ear and | | | | [facility] [address] | | mastoid (Primary Dx) | | | | [address] | | | | | | Mailcode: PV01 | | | | | | Physician's Chris | | | | | | [place], [place] | | | | | | [address] | | | | | | [phone] | | | +--------+---------+ + + + [...] Instructions Patient Instructions Aruna Edwards MA - 12/10/2012 2:27 PM PDTThank you for choosing [facility] Department of Otolaryngology for your health care needs. If you need to speak to an EN T physician after normal business hours, please call [phone] and ask to have the ENT ph ysician soil conservation teacher paged. Thank you for choosing [facility] Department of Otolaryngology for your health care needs. If yo u need to speak to an ENT physician after normal business hours, please call [phone] an d ask to have the ENT physician soil conservation teacher paged. documented in this encounter Progress Notes Willie Plunkett MD - 12/10/2012 2:40 PM PDTFormatting of this note might be different fro m the original. Clinic Date: 12/09/12 Clinic: Otology Clinic Primary Care Provider: Ender Wagoner MD History of Present Illness: Edgar is a 47 y.o. 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 He is here to review his recent CT. He has persistent right ear foul drainage. He has had continued issues with an abdominal infection and is quite uncomfor table today because of this. [facility] They have not been called yet to schedule surgery. Current Outpatient Prescriptions Medication Aspirin 81 mg Oral tablet CALCIUM CARBONATE (TUMS 500 ORAL) cyclobenzaprine (FLEXERIL) 10 mg Oral tablet docusate sodium (COLACE) 100 mg Oral capsule fluticasone-salmeterol 250-50 mcg/dose Inhalation Disk with Device hydrochlorothiazide 25 mg Oral tablet levothyroxine 25 mcg Oral tablet LORazepam (ATIVAN) 2 mg Oral tablet metFORMIN 500 mg Oral tablet Mometasone 110 mcg (30 doses) Inhalation Aerosol Powdr Breath Activated omeprazole (PRILOSEC) 20 mg Oral capsule,delayed release(DR/EC) polyethylene glycol (MIRALAX) 17 gram/dose Oral Powder polyethylene glycol 17 gram/dose Oral Powder prochlorperazine 5 mg Oral tablet tiotropium 18 mcg Inhalation capsule, w/inhalation device traMADol 50 mg Oral tablet No current facility-administered medications for this visit. Allergies Allergen Reactions Morphine Psychosis? Penicillins Rash Past Surgical History Procedure Laterality Date Pr sinus surgery proc unlisted 2006 Abdominal hernia repair 14 stomach surgery Cochlear implant PHYSICAL EXAM: There were no vitals taken for this visit. Alert, uncomfortable NAD In wheelchair Respirations even, unlabored. Head: Atraumatic, symmetric Neuro: [...] extent. Good movement with pneumotoscopy. Right otomicroscopy: ear fernando; dry but has as posterior scar band and cholesteatoma debri s behind the scar band. TM intact normal landmarks, no e/o drainage or effusion CT Temporal bones 12/03/12 reviewed: IMPRESSION: 1. Interval resolution of opacification of the left middle ear and mastoidectomy defect. No osseous erosion or soft tissue lesion identified in the left temporal bone to suggest cholesteatoma. 2. Slight interval improvement in aeration of the right middle ear cavity which remains partially opacified, otherwise no interval change of the right temporal bone. 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 and recurrent cholesteatoma Plan: Revision Right CWD mastoid with meatoplasty PARQ held regarding procedure He will follow up for a pre-op visit, sooner PRN This note was scribed by MARY Ruiz MD Schedule Maker Otology, Neurotology & Skull Base Surgery documented in this en counter Plan of Treatment +--------+ + + + + | Date | Type | Specialty | Care Team | Description | +--------+ + + + + | 04/29/ | Diagnostic | Clerk Of Superior Court | Marce Meyer | | | 2019 | Visit | | Eve Briseno [address] | | | | | | [address] | | | | | | [place], [place] | | | | | | [address] | | +--------+ + + + + documented as of this encounter Visit Diagnoses + + | Diagnosis | + + | 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
--- OUTSIDE RECORDS SUMMARY | ~2019-04-25 | XMS | Encounter Summary ---
Demographics + + + | Address | [address] | | | [place] [address] | + + + | Home Phone | | + + + | Preferred Language | Unknown | + + + | Marital Status | Single | + + + | Mormon Affiliation | BAP | + + + [...] [place] | | | | | [address] | | + + + + + Care Team Providers + +------+ + | Care Overnight Cashier Name | Role | Phone | + +------+ + | Jasion Chávez MD | PCP | | + [...] Rd | | | | | | [place] | | | | | | [address] | | | +--------+ + + + [...] + + | 04/29/ | Diagnostic | Gage Maker | Marce Meyer | | | 2018 | Visit | | Eve Briseno [address] | | | | | | [address] | | | | | | [place] | | | | | | [address] | | +--------+ + + + + documented as of this encounter Visit Diagnoses Not on filedocumented in this encounter"
--- OUTSIDE RECORDS SUMMARY | ~2019-04-25 | XMS | Encounter Summary ---
Demographics + + + | Address | [address] | | | [place] [address] | + + + | Home Phone [...] [place] | | | | | [address] | | + + + + + Care Team Providers + +------+ + | Care Keeper Head Name | Role | Phone | + [...] Walker | | | | | | [facility] | | | | | | [facility] [address] | | | | | [address] [place], | | | | | | [place] [address] | | | | | | [phone] | | | | | | | [...] + | 04/29/ | Diagnostic | Vp | Marce Meyer | | | 2019 | Visit | | Eve Briseno [address] | | | | | | [address] | | | | | | [place], [place] | | | | | | [address] | | +--------+ + + + + documented as of this encounter Procedures + +--------+ + + + | Procedure Name | Priori | Date/Time | Associated Diagnosis | Comments | | | ty | | | | + +--------+ + + + | CHEST 2 VIEW [id number] | Routin | 08/02/2008 | | Results for this | | | e | 3:16 PM | | procedure are in the | | | | PST | | results section. | + +--------+ + + + documented in this encounter Results CHEST 2 VIEW [id number] (08/02/2008 3:16 PM PST) + + | [...] | | IMPRESSION: No acute cardiopulmonary process. #[id number] | | + + + + + [...] | No acute cardiopulmonary process. | | #[id number] | + + + +---------+ + + [...]
--- OUTSIDE RECORDS SUMMARY | ~2019-04-25 | XMS | Encounter Summary ---
Demographics + + + | Address | [address] | | | [place] [address] | + + + | Home Phone [...] [place] | | | | | [address] | | + + + + + Care Team Providers + +------+ + | Care Public Works Manager Name | Role | Phone | [...] | | 2012 | | Center at [facility] [address] | [address] | | | | | [address] | [facility] [place] | | | | | Mailcode: [place] | [address] | | | | | for Health and | [phone] | | | | | [facility], [facility] [address] | | | | | | [place], [place] | | | | | | [address] | | | | | | [phone] | | | +--------+ + + + [...] | 04/29/ | Diagnostic | Blood Bank Manager | Marce Meyer | | | 2019 | Visit | | Eve Briseno [address] [place] [address] | | | | | | [address] | | | | | | [place] | | | | | | [address] | | +--------+ + + + + documented as of this encounter Visit Diagnoses Not on filedocumented in this encounter"
--- OUTSIDE RECORDS SUMMARY | ~2019-04-25 | XMS | Encounter Summary ---
Demographics + + + | Address | [address] | | | [place] [address] | + + + | Home Phone [...] [place] | | | | | [address] | | + + + + + Care Team Providers + +------+ + | Care Instructional Support Technician Name | Role | Phone | [...] Description | +--------+---------+ + + + | 08/19/ | Surgery | 6A Intra Op [facility] | Ayana Butler, | OPEN VENTRAL HERNIA | | 2012 | | [facility] | [address] | REPAIR WITH MESH | | | | Admitting Desk | [place], [place] | EXCISIOn OF SCAR, | | | | Located on the | [address] | LYSIS OF ADHESIONS | | | | floor [address] | [phone] | | | | | [facility] | | | | | | [place], [place] | | | | | | [address] | | | +--------+---------+ + + + [...] 'after hours' URGENT problems please call the [facility] compressor house operator at and ask sid phoenix the [...] Prescriptions sent by mail will take 3 d ays. Prescriptions to be picked up in person will be ready by the next day. It is your responsibility to keep [...] Kennedy MD Chief Resident Department of Surgery [facility] documented in this en counter Discharge Instructions Instructions Nanda Stanley RN - 08/28/2012Patient Education Materials: EDEN Drain care at [facility] e Additional Instructions: Abdominal precautions Discharge Nurse: Nanda [...] Pinon MD Chief Resident Department of Surgery [facility] Nav Grider MD - 08/27/2012 8:40 PM PST [facility] Department of Surgery Blue Surgery Progress Note [...] attending of record for this patient encounter. ANV ALLEN MD Diagnoses: [id number] Ventral hernia 383.1 Chronic mastoiditis Meds: acetaminophen [...] Grider MD - 08/26/2012 10:14 AM PST [facility] Department of Surgery Blue Surgery Progress Note [...] this patient encounter. NAV ALLEN MD Diagnoses: [id number] Ventral hernia 383.1 Chronic mastoiditis Meds: acetaminophen [...] Grider MD - 08/25/2012 6:49 AM PST [facility] Department of Surgery Blue Surgery Progress Note [...] this patient encounter. NAV ALLEN MD Diagnoses: 229600 Ventral hernia 383.1 Chronic mastoiditis Meds: acetaminophen [...] Grider MD - 08/24/2012 6:15 AM PST [facility] Department of Surgery Blue Surgery Progress Note [...] last 72 hours Imaging/Diagnostic Studies: none ASSESSMENT: Edgra Marquez is a 46 y.o. male patient [...] this patient encounter. NAV ALLEN MD Diagnoses: [id number] Ventral hernia 383.1 Chronic mastoiditis Meds: acetaminophen [...] Grider MD - 08/23/2012 6:24 AM PST [facility] Department of Surgery Blue Surgery Progress Note Author: Nav Allen MD Attending Physician: Ayana Butler MD 08/23/2012 SUBJECTIVE: Interval history: Threatened to leave [place] because he wanted a regular diet Had [...] this patient encounter. NAV ALLEN MD Diagnoses: [id number] Ventral hernia 383.1 Chronic mastoiditis Meds: acetaminophen [...] Grider MD - 08/22/2012 8:57 AM PST [facility] Department of Surgery Blue Surgery Progress Note [...] this patient encounter. NAV ALLEN MD Diagnoses: 678517 Ventral hernia 383.1 Chronic mastoiditis Meds: carBAMazepine [...] in preservative free NaCl 0.9% 50 mL RISK ASSESSMENT CONSULTANT infusion, , Intravenous, CUCO NUOUS ipratropium [...] Aviles MD - 08/21/2012 7:25 AM PST [facility] Department of Surgery Blue Surgery Progress Note [...] this patient encounter. Long Aviles MD Diagnoses: 525308 Ventral hernia 383.1 Chronic mastoiditis Meds: carBAMazepine [...] in preservative free NaCl 0.9% 50 mL RISK ASSESSMENT CONSULTANT infusion, , Intravenous, CUCO NUOUS ipratropium [...] Pinon MD Chief Resident Department of Surgery [facility] Nav Grider MD - 08/20/2012 7:01 AM PST [facility] Department of Surgery Blue Surgery Progress Note [...] this patient encounter. NAV ALLEN MD Diagnoses: [id number] Ventral hernia 383.1 Chronic mastoiditis Meds: acetaminophen [...] in preservative free NaCl 0.9% 50 mL RISK ASSESSMENT CONSULTANT infusion, , Intravenous, CUCO NUOUS ipratropium [...] adhesions 3. Recurrent incisional hernia repair with [id number] Strattice mesh 4. Primary repair of parastomal [...] + | 04/29/ | Diagnostic | Java Security Architect | Marce Meyer | | | 2019 | Visit | | Finn, Eve [address] | | | | | | [facility] | | | | | | [place], [place] | | | | | | [address] | | +--------+ + + + + [...] + + + | IP CONSULT TO [facility] | Routin | 08/21/2012 | | [...] | + + | Tania Martins - 09/01/2012 10:52 AM PST | + [...] | | + +---------+ + + | [facility] DEPARTMENT OF | | | | | RADIOLOGY | | | | + +---------+ + + OPERATION RECORD (08/22/2012 8:43 AM PST) + + | Transcriptions | + + | Ayana Butler MD - 08/22/2012 5:22 AM PST | | Date: 08/19/2012 | | | | Attending Surgeon: Ayana Butler MD | | | | Wrapper Layer And Examiner Soft Work(s): Marcos Aviles MD | | | | [...] | | | Drains: | | A 19-Jamaican round Oscar drain in subcutaneous tissues above [...] running number 1 Surgipro. | | A 19-Jamaican round Oscar drain was placed above the [...] | | EWG / HS | | [id number] / [id number] / [id number] / | | | | | + [...] | + + + + + | [facility] | [address] | [place] [address] | | | SERVICES, CORE | VASQUEZ [...] [facility] | [address] | [place] [address] | | | SERVICES, CORE | PARK [...] | | | | | signed / Tuan Ventura | | | | | | Gonzales [...] + +---------+ + + IP CONSULT TO [facility] TEAM (08/21/2012 10:58 AM PST) + + + | Narrative | Performed At | + + + | [facility] 08/21/2012 10:58 AM PICC INSERTION DOCUMENTATION | | | NOTE Today | | | | | | s Date: 08/21/2012 Start Time: 1030 Patient Location (Unit/Room | | | #): 14A 48 Diagnosis: [id number] Ventral hernia 383.1 Chronic | | | [...] 08/21/2012Start Time: 1030Patient Location (Unit/Room #): 14A rm 48Diagnosis: | | 719314 Ventral fqnbpo010.1 Chronic mastoiditisIndications: (Select all that apply) | [...] CATHETERProduct Name: PowerPICCConstruction: | | Double5 Fr55cm [id number] TrimmedLot # (or Sticker): INSERTION SITE: - [...] [facility] | [address] | [place] [address] | | | SERVICES, CORE | PARK [...] + + | [facility] | [address] [facility] | [place] [address] | | | SERVICES, CORE | PARK [...] | + + + + + | [facility] | [address] | [place] [address] | | | SERVICES, CORE | VASQUEZ [...] | + + + + + | [facility] | [address] [facility] [address] | [place] [address] | | | SERVICES, CORE | PARK [...] [facility] | [address] | [place] [address] | | | SERVICES, CORE | PARK [...] | + + + + + | [facility] | [address] | [place] [address] | | | SERVICES, CORE | VASQUEZ [...] [facility] | [address] | [place], [place] | | | [facility] | [address] | [address] | | | TESTS | | | [...] + + + + + | [facility] | [address] | [place], [place] | | | [facility] | [address] | [address] | | | TESTS | | | | + + + + + documented in this encounter Visit Diagnoses + + | Diagnosis | + + | Incisional hernia without mention of obstruction or gangrene | + + documented in this encounter Administered Medications + +--------+ +-------+------+---------+ | Medication Order | MAR | Action | Dose | Rate | Site | | | Action | Date | | | | + +--------+ +-------+------+---------+ | bupivacaine (PF) (aka | Given | 08/19/19 | 50 mL | | Abdomen | | MARCAINE,SENSORCAINE-MPF) | | 13 2:36 | | | | | injection INTRAPROCEDURE PRN, | | PM PST | | | | | Starting Lindsay 08/19/12 at 1436, | | | | | | | Until Lindsay 08/19/12 at 1512 | | | | | | + +--------+ +-------+------+---------+ +---+---+ | | | +---+---+ documented in this encounter
--- OUTSIDE RECORDS SUMMARY | ~2019-04-25 | XMS | Encounter Summary ---
Demographics + + + | Address | [address] | | | [place] [address] | + + + | Home Phone [...] [place] | | | | | [address] | | + + + + + Care Team Providers + +------+ + | Care Cashier Self Service Gasoline Name | Role | Phone | + [...] | | 2012 | | Center at [facility] [address] | [address] | | | | | [address] | [facility] [place] | | | | | Mailcode: [place] | [address] | | | | | for Health and | [phone] | | | | | [facility] [address] | | | | | | [place], [place] | | | | | | [address] | | | | | | [phone] | | | +--------+ + + + [...] + + | 04/29/ | Diagnostic | Classroom Instructional Aide | Marce Meyer | | | 2019 | Visit | | Eve Briseno [address] [place] [address] | | | | | | [address] | | | | | | [place] | | | | | | [address] | | +--------+ + + + + documented as of this encounter Visit Diagnoses Not on filedocumented in this encounter"
--- OUTSIDE RECORDS SUMMARY | ~2019-04-25 | XMS | Clinical Summary ---
Demographics + + + | Address | [address] | | | [place] [address] | + + + | Home Phone | | + + + | Preferred Language | Unknown | + + + | Marital Status | | + + + | Congregation Affiliation | Unknown | + + + | Race | Unknown | + + + | Ethnic Group | Unknown | + + + Author + + + | Author | [facility] | | | and [place] | + + + | Organization | [facility] | | | [...] Team Providers + +------+ + | Care Ict Support Technicians Name | Role | Phone | + [...] + + | Overview: [facility]. | + + + + + | [...] 06/03/2017 | + + + | Decreased wood milling machine hand strength of right hand | 06/03/2017 | [...] QUIT. H/O | | METH. 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 epilepticus, | | | | | | not intractable | | | | | | ([facility]); Jasonz-rltd | | | | | | symptomatic epilepsy | | | | | | w cmplx part sz, | | | | | | notintrac, wo status | | | | | | ([facility]) | +--------+ + + + + from [...] | | | | | | [place] [address] | | | | | | [phone] | | | | | | | | +--------+---------+ + + + | 07/13/ | Office | Pulmonology | Hua Garcia, | | | 2018 | Visit | | [address] | | | | | | [place] | | | | | | [address] | | | | | | | [...] | [employer] | MODA | [id number] | | [phone] | | Medica | | MEDICAID HMO | HEALTH | | [id number]-Pr | 1 | | id | | | MDCD | | esent | | | | | | [place] | | | | | | + +--------+ +--------+ +---------+--------+ | [employer] | MODA | [id number] | | [phone] | | Medica | | MEDICAID HMO [...] | | | 8 (Home) | [place] [address] | + +--------+ +--------+ + + | Edgar Marquez | Person | Self | [birth year] | [address] | | | al/Kumar | | 1966 | [phone] | [address] [place], | | | gabe | | | 8 (Home) | [place] [address] | + +--------+ +--------+ + + Advance Directives Patient has advance care planning documents on file. For more information, please contact:[facility] [place] [address]"
--- OUTSIDE RECORDS SUMMARY | ~2019-04-25 | XMS | Encounter Summary ---
Demographics + + + | Address | [address] | | | [place] [address] | + + + | Home Phone [...] [place] | | | | | [address] | | + + + + + Care Team Providers + +------+ + | Care Tobacco Roller Name | Role | Phone | + [...] | | | | | Procedures | [place], [place] | Mailcode: | | | | | CT ABDOMEN | [address] | [address] [facility] | | | | | W IV | Phone: | Hospital | | | | | CONTRAST | [phone] | [place], [place] | | | | | | Fax: | [address] | | | | | | [phone] | Phone: | | | | | | | [phone] | | | | | | | Fax: | | | | | | | [phone] | +--------+--------+ + + + + Diagnostic [...] | | | | | Procedures | [facility] [place] | Mailcode: | | | | | CT PELVIS W | [address] | [address] [facility] | | | | | IV CONTRAST | Phone: | Hospital | | | | | | [phone] | [place], [place] | | | | | | Fax: | [address] | | | | | | [phone] | Phone: | | | | | | | [phone] | | | | | | | Fax: | | | | | | | [phone] | +--------+--------+ + + + + Reason [...] | | | | GENERAL | | [address] | | | | | | | Phone: | | | | | | | [phone] | | | | | | | Fax: | | | | | | | [phone] | +--------+ + + + + + Encounter Details +--------+---------+ + + + | Date | Type | Department | Care Team | Description | +--------+---------+ + + + | 10/06/ | Office | Digestive Health | Ayana Butler W, | Abdominal wall fluid | | 2012 | Visit | Center at [facility] [address] | MD [address] | collections | | | | [address] | [place], [place] | (Primary Dx) | | | | Mailcode: Center | [address] | | | | | for Health and | [phone] | | | | | [facility] [address] | | | | | | [place], [place] | | | | | | [address] | | | | | | [phone] | | | +--------+---------+ + + + [...] + + | 04/29/ | Diagnostic | Mineral Surveying Technician | Marce Meyer | | | 2019 | Visit | | Eve Briseno [address] | | | | | | [address] | | | | | | [place], [place] | | | | | | [address] | | +--------+ + + + + [...] | | | LABORATORY | | | [facility] | | | SERVICES, | | [...] [facility] | [address] | [place] [address] | | | SERVICES, CORE | [address] | | | + + + + + documented in this encounter Visit Diagnoses + + | Diagnosis | + + | Abdominal wall fluid collections - Primary Other ascites | + + documented in this encounter"
--- OUTSIDE RECORDS SUMMARY | ~2019-04-25 | XMS | Encounter Summary ---
Demographics + + + | Address | [address] | | | [place] [address] | + + + | Home Phone [...] [place] | | | | | [address] | | + + + + + Care Team Providers + +------+ + | Care Human Resources Partner Name | Role | Phone | + +------+ + | Jaison Chávez MD | PCP | | + +------+ + Encounter Details +--------+ + + + + | Date | Type | Department | Care Team | Description | +--------+ + + + + | 08/07/ | Results | NON-[facility] | Ashley Omalley MD | | | 2008 | Only | Department | Tonya Walker | | | | | | [facility] [address] | | | | | | [address] | | | | | | [place] [address] | | | | | | [phone] | | | | | | | [...] + | 04/29/ | Diagnostic | Restaurant Greeter | Marce Meyer | | | 2019 | Visit | | Eve Briseno [address] | | | | | | [address] | | | | | | [place], [place] | | | | | | [address] | | +--------+ + + + + documented as of this encounter Procedures + +--------+ + + + | Procedure Name | Priori | Date/Time | Associated Diagnosis | Comments | | | ty | | | | + +--------+ + + + | ABDOMEN 2 VIEW PA | Routin | 08/07/2008 | | Results for this | | CHEST 74108 | e | 12:57 PM | | procedure are in the | | | | PST | | results section. | + +--------+ + + + | CBC W/DIFF, REFLEX | Routin | 08/07/2008 | | Results for this | | | e | 12:28 PM | | procedure are in the | | | | PST | | results section. | + +--------+ + + + | COMPLETE METABOLIC | Routin | 08/07/2008 | | Results for this | | SET | e | 12:28 PM | | procedure are in the | | (NA,K,CL,CO2,BUN,CRE | | PST | | results section. | | AT,GLUC,CA,AST,ALT,B | | | | | | TERRY TOTAL,ALK | | | | | | PHOS,ALB,PROT TOTAL) | | | | | + +--------+ + + + | TAGGED RBC GI BLEED | Routin | 08/07/2008 | | Results for this | | 69490 | e | 10:34 AM | | procedure are in the | | | | PST | | results section. | + +--------+ + + + documented in this encounter Results ABDOMEN 2 VIEW PA CHEST [id number] (08/07/2008 12:57 PM PST) + + | Specimen | + + | | + + + + + | Narrative | Performed At | + + + | ABDOMEN, TWO VIEWS, AND PA CHEST INDICATION: Abdominal | [facility] | | pain. Patient is apparently scheduled for hernia repair in 2 days. | DEPARTMENT OF | | Supine and upright films of the abdomen show abundant colonic stool, | RADIOLOGY | | especially in the ascending and transverse colon, and lesser amounts | | | more distally. The colon is not abnormally dilated and there is | | | no evidence of gaseous dilatation or suspicious fluid levels in the | | | small bowel or stomach. No signs of pneumoperitoneum. Frontal | | | view of the chest is compared to 08/02/08 study. The heart size | | | and pulmonary vessels remain normal. Lungs and pleural reflections | | | are clear. IMPRESSION: Nonspecific abdominal gas pattern. [id number] | | + + + + + | Procedure Note | + + | Interface, Radiology Results - 03/16/2015 11:52 AM PDT ABDOMEN, TWO VIEWS, AND PA | | CHESTINDICATION: Abdominal pain. Patient is apparently scheduled forhernia repair in 2 | | days.Supine and upright films of the abdomen show abundant colonic stool,especially in | | the ascending and transverse colon, and lesser amountsmore distally. The colon is not | | abnormally dilated and there is noevidence of gaseous dilatation or suspicious fluid | | levels in the smallbowel or stomach. No signs of pneumoperitoneum. Frontal view ofthe | | chest is compared to 08/02/08 study. The heart size and pulmonaryvessels remain normal. | | Lungs and pleural reflections are clear.IMPRESSION: Nonspecific abdominal gas | | pattern.[id number] | |vessels remain normal. Lungs and pleural reflections are clear. | |IMPRESSION: Nonspecific abdominal gas pattern. | |[id number] | + + + +---------+ + + | Performing | Address | City/State/Zipcode | Phone Number | | Organization | | | | + +---------+ + + | [facility] DEPARTMENT OF | | | | | RADIOLOGY | | | | + +---------+ + + CBC W/DIFF, REFLEX (08/07/2008 12:28 PM PST) + + + + + + | Component | Value | Ref Range | Performed | Pathologist | | | | | At | Signature | + + + + + + | WHITE BLOOD | 14.0 (H) | 4.3 - 11.0 X10 | [facility] | | | CELL COUNT | | 3/ul | A MEDICAL | | | | | | CENTER | | + + + + + + | HEMOGLOBIN | 15.4 | 12.0 - 16.0 | [facility] | | | | | g/dL | A MEDICAL | | | | | | CENTER | | + + + + + + | RED BLOOD | 4.97 | 4.7 - 6.1 X10 | [facility] | | | CELL COUNT | | 6/uL | A MEDICAL | | | | | | CENTER | | + + + + + + | HEMATOCRIT | 44.5 | 40.0 - 54.0 % | [facility] | | | | | | A MEDICAL | | | | | | CENTER | | + + + + + + | MCV | 89.6 | 82 - 100 fl | [facility] | | | | | | A MEDICAL | | | | | | CENTER | | + + + + + + | MCH | 30.9 | 28.0 - 32.0 pg | [facility] [...] + + + + | PLATELET | 177 | 150 - 450 X10 3 | [...] + + + + | NEUTROPHIL | 69.0 | 40 - 80 % | [facility] | | | % | | | A MEDICAL | | | | | | CENTER | | + + + + + + | LYMPHOCYTE | 20.4 | 10 - 45 % | [facility] [...] + + + | BASO % | 1.8 (H) | 0 - 1 % | [facility] | | | | | | A MEDICAL | | | | | | CENTER | | + + + + + + | MONOCYTE % | 8.3 | 2 - 10 % | [facility] | | | | | | A MEDICAL | | | | | | CENTER | | + + + + + + | BANDS % | PRESALES SENIOR SPECIALIST | 0 - 7 % | [...] | [facility] | [address] | [place] [address] | | | [facility] [place] | Streets | | | + + + + + COMPLETE METABOLIC SET (NA,K,CL,CO2,BUN,CREAT,GLUC,CA,AST,ALT,BILI TOTAL,ALK PHOS,ALB,PROT TOTAL) (08/07/2008 12:28 PM PST) + +---------+ + + + [...] +---------+ + + + | CHLORIDE, | 99 [...] +---------+ + + + | CREATININE | 0.90 | 0.9 - 1.3 MG/DL | [facility] | | | PLASMA | | | A MEDICAL | | | (LAB) | | | CENTER | | + +---------+ + + + | BUN/CREATIN | 14 | 6 - 20 RATIO | [facility] | | | INE RATIO | | | A MEDICAL | | | | | | CENTER | | + +---------+ + + + | CALCIUM, | 10.3 | 8.5 - 10.8 | [facility] | | | PLASMA | | MG/DL | A MEDICAL | | | (LAB) | | | CENTER | | + +---------+ + + + | AST(SGOT) | 40 | 10 - 41 U/L | [facility] | | | | | | A MEDICAL | | | | | | CENTER | | + +---------+ + + + | ALT (SGPT) | 71 (H) | 7 - 51 U/L | [facility] | | | | | | A MEDICAL | | | | | | CENTER | | + +---------+ + + + | ALK PHOS | 58 | 40 - 180 U/L | [facility] | | | | | | A MEDICAL | | | | | | CENTER | | + +---------+ + + + | TOTAL | 7.4 | 6.7 - 8.5 G/DL | [facility] | | | PROTEIN, | | | A MEDICAL | | | PLASMA | | | CENTER | | | (LAB) | | | | | + +---------+ + + + | ALBUMIN, | 4.7 | 3.5 - 5.0 G/DL | [facility] | | | PLASMA | | | A MEDICAL | | | (LAB) | | | CENTER | | + +---------+ + + + | BILIRUBIN | 1.1 | 0.2 - 1.6 MG/DL | [facility] | | | TOTAL | | | A MEDICAL | | | | | | CENTER | | + +---------+ + + + | LIPASE | 28 [...] | [address] | [place] [address] | | | MEDICAL CENTER | Streets | | | + + + + + TAGGED RBC GI BLEED [id number] (08/07/2008 10:34 AM PST) + + | Specimen | + + | | + + + + + | Narrative | Performed At | + + + | RBC GI BLEED SCAN INDICATION: GI bleed. Angiographic anterior | [facility] | | and posterior images of the abdomen and pelvis were obtained with 26 | DEPARTMENT OF | | mCi of technetium-99m UltraTag RBC. There is no evidence of | RADIOLOGY | | hypervascular lesion. Subsequent images were obtained at 5 to 10 | | | minute intervals to 1 hour also show no active bleeding. There are | | | several foci of prominent activity in the peroneal region. Patient | | | returned at five and half hours and this was shown to be due to | | | prominent but normal penile and testicular activity. There is no | | | evidence of active bleeding at five and half hours. The patient | | | returned for 24 hour delayed images which show no signs of active | | | bleeding. IMPRESSION: No evidence of active GI bleed during this | | | study. [id number] | | + + + + + | Procedure Note | + + | Interface, Radiology Results - 03/16/2015 11:52 AM PDT RBC GI BLEED SCAN | | INDICATION: GI bleed. | | Angiographic anterior and posterior images of the abdomen and pelvis | | were obtained with 26 mCi of technetium-99m UltraTag RBC. There is no | | evidence of hypervascular lesion. Subsequent images were obtained at | | 5 to 10 minute intervals to 1 hour also show no active bleeding. | | There are several foci of prominent activity in the peroneal region. | | Patient returned at five and half hours and this was shown to be due | | to prominent but normal penile and testicular activity. There is no | | evidence of active bleeding at five and half hours. | | The patient returned for 24 hour delayed images which show no signs of | | active bleeding. | | IMPRESSION: No evidence of active GI bleed during this study. | | [id number] | + + + +---------+ + + [...]
--- OUTSIDE RECORDS SUMMARY | ~2019-04-25 | XMS | Encounter Summary ---
Demographics + + + | Address | [address] | | | [place] [address] | + + + | Home Phone [...] [place] | | | | | [address] | | + + + + + Care Team Providers + +------+ + | Care Vet Assistant Name | Role | Phone | [...] + + | 04/29/ | Diagnostic | Steel Spar Operator | Marce Meyer | | | 2019 | Visit | | Eve Briseno [address] | | | | | | [address] | | | | | | [place], [place] | | | | | | [address] | | +--------+ + + + + [...] | | | | [facility] | [facility] | | | | [address] | | | | | | [address], | | | | | | [place] [address] | | | | | | : ASHLEY HORTON MD | | | | + + + + + + + + | Specimen | + + | | + + + + + + + | Performing | Address | City/State/Zipcode | Phone Number | | Organization | | | | + + + + + | [facility] | [address] | [place] [address] | [phone] | | [facility] | | | | + + + + + | [facility] | | | | | [facility] | | | | + + + [...] + + + | BANDS % | EMPLOYEE RELATIONS MANAGER | 0 - 7 % | [facility] | | | | | | A MEDICAL | | | | | | CENTER | | + + + + + + | SEDIMENTATI | 34 (H) | 1 - 15 MM/HR | [facility] | | | ON RATE [...] [facility] | [address] | [place] [address] | | | MEDICAL CENTER | Streets [...] [facility] | [address] | [place] [address] | | | MEDICAL CENTER | Streets | | | + + + + + documented in this encounter Visit Diagnoses Not on filedocumented in this encounter"
--- OUTSIDE RECORDS SUMMARY | ~2019-04-25 | XMS | Encounter Summary ---
Demographics + + + | Address | [address] | | | [place] [address] | + + + | Home Phone [...] [place] | | | | | [address] | | + + + + + Care Team Providers + +------+ + | Care Geology Scientist Name | Role | Phone | + +------+ + | Kerri Chavarria NP | PCP | | + +------+ + Encounter Details +--------+ + + + + | Date | Type | Department | Care Team | Description | +--------+ + + + + | 05/28/ | Abstract | Digestive Health | Ayana Butler W, | | | 2011 | | [facility] [facility] [address] | [address] | | | | | [address] | [place], [place] | | | | | Mailcode: [place] | [address] | | | | | for Health and | [phone] | | | | | [facility] [address] | | | | | | [facility] [place] | | | | | | [address] | | | | | | [phone] | | | +--------+ + + + [...] + + | 04/29/ | Diagnostic | Marble Finisher | Marce Meyer | | | 2019 | Visit | | Eve Briseno [address] | | | | | | [address] | | | | | | [place] | | | | | | [address] | | +--------+ + + + + documented as of this encounter Visit Diagnoses Not on filedocumented in this encounter"
--- OUTSIDE RECORDS SUMMARY | ~2019-04-25 | XMS | Encounter Summary ---
Demographics + + + | Address | [address] | | | [place] [address] | + + + | Home Phone [...] [place] | | | | | [address] | | + + + + + Care Team Providers + +------+ + | Care Ramp Boss Name | Role | Phone | + [...] + + | 08/19/ | Hospital | [facility] [address] | Ayana Butler, | | | 2013 - | Encounter | [address] | [address] | | | | | [place], [place] | [place] | | | 08/28/ | | [address] | [address] | | | 2012 | | [phone] | [phone] | | | | | | | [...] 'after hours' URGENT problems please call the [facility] acoustical tile drill press operator at and ask sid [facility] the [...] Kennedy MD Chief Resident Department of Surgery [facility] documented in this en counter Discharge Instructions Instructions Nanda Stanley RN - 08/28/2012Patient Education Materials: EDEN Drain care at on license of [facility] Additional Instructions: Abdominal precautions Discharge Nurse: Nanda [...] Pinon MD Chief Resident Department of Surgery [facility] Nav Grider MD - 08/27/2012 8:40 PM PST [facility] Department of Surgery Blue Surgery Progress Note [...] this patient encounter. NAV ALLEN MD Diagnoses: 201038 Ventral hernia 383.1 Chronic mastoiditis Meds: acetaminophen [...] Grider MD - 08/26/2012 10:14 AM PST [facility] Department of Surgery Blue Surgery Progress Note [...] this patient encounter. NAV ALLEN MD Diagnoses: 297776 Ventral hernia 383.1 Chronic mastoiditis Meds: acetaminophen [...] Grider MD - 08/25/2012 6:49 AM PST [facility] Department of Surgery Blue Surgery Progress Note [...] this patient encounter. NAV ALLEN MD Diagnoses: 968482 Ventral hernia 383.1 Chronic mastoiditis Meds: acetaminophen [...] Grider MD - 08/24/2012 6:15 AM PST [facility] Department of Surgery Blue Surgery Progress Note [...] this patient encounter. NAV ALLEN MD Diagnoses: 383070 Ventral hernia 383.1 Chronic mastoiditis Meds: acetaminophen [...] Grider MD - 08/23/2012 6:24 AM PST [facility] Department of Surgery Blue Surgery Progress Note [...] this patient encounter. NAV ALLEN MD Diagnoses: 233570 Ventral hernia 383.1 Chronic mastoiditis Meds: acetaminophen [...] Grider MD - 08/22/2012 8:57 AM PST [facility] Department of Surgery Blue Surgery Progress Note [...] this patient encounter. NAV ALLEN MD Diagnoses: 836902 Ventral hernia 383.1 Chronic mastoiditis Meds: carBAMazepine [...] in preservative free NaCl 0.9% 50 mL REGISTERED NURSES infusion, , Intravenous, CUCO NUOUS ipratropium (aka [...] Aviles MD - 08/21/2012 7:25 AM PST [facility] Department of Surgery Blue Surgery Progress Note [...] this patient encounter. Long Aviles MD Diagnoses: [id number] Ventral hernia 383.1 Chronic mastoiditis Meds: carBAMazepine [...] in preservative free NaCl 0.9% 50 mL REGISTERED NURSES infusion, , Intravenous, CUCO NUOUS ipratropium (aka [...] Pinon MD Chief Resident Department of Surgery [facility] Nav Grider MD - 08/20/2012 7:01 AM PST [facility] Department of Surgery Blue Surgery Progress Note [...] this patient encounter. NAV ALLEN MD Diagnoses: 430646 Ventral hernia 383.1 Chronic mastoiditis Meds: acetaminophen [...] in preservative free NaCl 0.9% 50 mL REGISTERED NURSES infusion, , Intravenous, CUCO NUOUS ipratropium (aka [...] adhesions 3. Recurrent incisional hernia repair with [id number] Strattice mesh 4. Primary repair of parastomal [...] + + | 04/29/ | Diagnostic | Cardiopulmonary Technologist | Marce Meyer | | | 2018 | Visit | | Eve Briseno [address] | | | | | | [address] | | | | | | [place], [place] | | | | | | [address] | | +--------+ + + + + [...] + + + | IP CONSULT TO [facility] | Routin | 08/21/2012 | | [...] | | + +---------+ + + | [facility] DEPARTMENT OF | | | | | RADIOLOGY | | | | + +---------+ + + OPERATION RECORD (08/22/2012 8:43 AM PST) + + | Transcriptions | + + | Ayana Butler MD - 08/22/2012 5:22 AM PST | | Date: 08/19/2012 | | | | Attending Surgeon: Ayana Butler MD | | | | Geography Department Chair(s): Marcos Aviles MD | | | | [...] | | | Drains: | | A 19-Prydeinig round Oscar drain in subcutaneous tissues above [...] running number 1 Surgipro. | | A 19-Prydeinig round Oscar drain was placed above the [...] | | EWG / HS | | [id number] / [id number] / [id number] / | | | | | + [...] + + | [facility] | [address] | [place] [address] | | | SERVICES, CORE | PARK [...] [facility] | [address] | [place] [address] | | | SERVICES, CORE | PARK [...] | | | | allie / Tuan Ventura | | | | [...] | | + +---------+ + + | [facility] DEPARTMENT OF | | | [...] | | #): 14A rm 48 Diagnosis: [id number] Ventral hernia 383.1 Chronic | | | [...] Location (Unit/Room #): 14A 48Diagnosis: | | 847344 Ventral qtoaju267.1 Chronic mastoiditisIndications: (Select all that apply) | [...] CATHETERProduct Name: PowerPICCConstruction: | | Double5 Fr55cm [id number] TrimmedLot # (or Sticker): INSERTION SITE: - [...] + | [facility] | [address] | [place] [address] | | | SERVICES, CORE | PARK [...] [facility] | [address] | [place] [address] | | | SERVICES, CORE | PARK [...] [facility] | [address] | [place] [address] | | | SERVICES, CORE | PARK [...] | + + + + + | [facility] | [address] | [place] [address] | | | BHAVESH, JUAN | [address] [...] [facility] | [address] | [place] [address] | | | SERVICES, JUAN | PARK [...] | + + + + + | [facility] | [address] | [place] [address] | | | SERVICES, CORE | [address] [...] [facility] | [address] | [place], [place] | | | [facility] | [address] | [address] | | | TESTS | | | [...] [facility] | [address] | [place], [place] | | | [facility] | [facility] | [address] | | | TESTS | | | [...] | | | | | dose on [facility] 08/26/12 at 1700, | | | | [...] | | | | ONCE, 1 dose, [facility] 08/26/12 at 1330 | | PM PST [...] 13 9:38 | | | | | REGISTERED NURSES infusion intravenous, | | PM PST | [...] | | | + +---+ | HYDROmorphone REGISTERED NURSES infusion 1 | | | dose, Starting [...] mL/hr | mL/hr | | | Starting [facility] 08/19/12 at 1600, | | PM PST [...] 1:34 | | | | | dose, [facility] 08/26/12 at 1145 | | PM PST [...] | | | | | NEEDED, Starting [facility] 08/19/12 at | | AM PST | [...] | | | | | NEEDED, Starting [facility] 08/19/12 at | | | | | [...]
--- OUTSIDE RECORDS SUMMARY | ~2019-04-25 | XMS | Encounter Summary ---
Demographics + + + | Address | [address] | | | [place] [address] | + + + | Home Phone [...] + + + | Author | [facility] | + + + | Organization | [facility] | + + + | Address | Unknown | + + + | Phone | Unavailable | + + + Support + + + + + | Name | Relationship | Address | Phone | + + + + + | Margarito Owusu | ECON | [address] | | | | | [place] | | | | | [address] | | + + + + + Care Team Providers + +------+ + | Care Household Appliance Repairer Name | Role | Phone | [...] 2005 | Registratio | [address] | [address] [place] [address] | | | | n | [address] Mailcode: RPB07 | [address] | | | | | [place], [place] | [place] [address] | | | | | [address] | [phone] | | | | | [phone] | (Fax) | | +--------+ + + [...] + | 04/29/ | Diagnostic | Auto Clocks Repairer | Marce Meyer | | | 2019 | Visit | | Eve Briseno [address] [facility] | | | | | | [address] | | | | | | [place], [place] | | | | | | [address] | | +--------+ + + + + documented as of this encounter Visit Diagnoses Not on filedocumented in this encounter"
--- OUTSIDE RECORDS SUMMARY | ~2019-04-25 | XMS | Encounter Summary ---
Demographics + + + | Address | [address] | | | [place] [address] | + + + | Home Phone [...] [place] | | | | | [address] | | + + + + + Care Team Providers + +------+ + | Care Certified Breastfeeding Educator Name | Role | Phone | [...] | Center at [facility] [address] | MD [address] | | | | | [address] | [place], [place] | | | | | Mailcode: [place] | [address] | | | | | for Health and | [phone] | | | | | [facility] [address] | | | | | | [place], [place] | | | | | | [address] | | | | | | [phone] | | | +--------+ + + + [...] + | 04/29/ | Diagnostic | Dry Drug Worker | Marce Meyer | | | 2019 | Visit | | Eve Briseno [address] [facility] | | | | | | [address] | | | | | | [place] | | | | | | [address] | | +--------+ + + + + documented as of this encounter Visit Diagnoses Not on filedocumented in this encounter"
--- OUTSIDE RECORDS SUMMARY | ~2019-04-25 | XMS | Encounter Summary ---
Demographics + + + | Address | [address] | | | [place] [address] | + + + | Home Phone [...] [place] | | | | | [address] | | + + + + + Care Team Providers + +------+ + | Care Conference Planner Name | Role | Phone | [...] [place] | | | | | | [address] | | | | | | [phone] | | | | | | | [...] + + | 04/29/ | Diagnostic | Thermostat Machine Tender | Marce Meyer | | | 2019 | Visit | | Eve Briseno [address] [facility] | | | | | | [address] | | | | | | [place], [place] | | | | | | [address] | | +--------+ + + + + documented as of this encounter Procedures + +--------+ + + + | Procedure Name | Priori | Date/Time | Associated Diagnosis | Comments | | | ty | | | | + +--------+ + + + | ABDOMEN 2 VIEW PA | Routin | 07/17/2010 | | Results for this | | CHEST 59978 | e | 11:30 AM | | [...] encounter Results ABDOMEN 2 VIEW PA CHEST [address] (07/17/2010 11:30 AM PST) + + | [...] + | [facility] | [address] | [place] [address] | | | MEDICAL CENTER | Streets [...] (H) | 4.3 - 11.0 X10 | [facility] | | | CELL COUNT | | [...] + + + | BANDS % | GEAR HOBBER OPERATOR | 0 - 7 % | [...] + + + | [facility] | [address] | [place] [address] | | | MEDICAL CENTER | Streets [...] + + + + + | [facility] | And | [place] [address] | | | MEDICAL CENTER | Streets [...] 141 | 137 - 146 MEQ/L | [facility] | | | PLASMA | [...] + | [facility] | [address] | [place] [address] | | | MEDICAL CENTER | Streets [...] + + | [facility] | [address] | [place] [address] | | | [facility] | [place] | | | + + + + + documented in this encounter Visit Diagnoses Not on filedocumented in this encounter"
--- OUTSIDE RECORDS SUMMARY | ~2019-04-25 | XMS | Encounter Summary ---
Demographics + + + | Address | [address] | | | [place] [address] [...] [place] | | | | | [address] | | + + + + + Care Team Providers + +------+ + | Care Wireless Sales Associate Name | Role | Phone [...] | | | | | mastoid(385. | [place], [place] | [address] [facility] | | | | | 33) | [address] | Hospital | | | | | Procedures | | [place], [place] | | | | | [address] | | [address] | | | | | BENIGN | | Phone: | | | | | DISEASE WO | | [phone] | | | | | | | Fax: | | | | | | | [phone] | +--------+--------+ + + + + Reason for Visit + + + | Reason | Comments | + + + | Hearing loss | here for CI and ear f/u | + + + Office Visit - [...] | | | | [facility] | [facility] | | | | | | Grp | [address] [place], | | | | | | [facility] | [place] | | | | | | [address] | [address] | | | | | | [facility] | | | | | | | [address] | | | | | | | [address] | | | | | | | [place], | | | | | | | [place] [address] | | | | | | | Phone: | | | | | | | [phone] | | | | | | | Fax: | | | | | | | [phone] | | +--------+--------+ + + + + Encounter Details +--------+---------+ + + + | Date | Type | Department | Care Team | Description | +--------+---------+ + + + | 11/19/ | Office | Otolaryngology | Willie Plunkett, [...] Perez | | | | | | [place], [place] | | | | | | [address] | | | | | | [phone] | | | +--------+---------+ + + + [...] + + + | Blood Pressure | 144/75 | 11/19/2012 1:11 PM | | | | | PDT | | + + + + + | Pulse | 108 | 11/19/2012 1:11 PM | | | | | PDT [...] Weight | 115.7 kg (255 lb) | 11/19/2012 1:11 PM | | | | | PDT | | + + + + + | Height | - | - | | + + + + + | Body Mass Index | 34.58 | 11/11/2012 8:28 AM | | | | | PDT | | + + + + + documented in this encounter Patient Instructions Patient Instructions Aruna Edwards MA - 11/19/2012 1:12 PM PDTMyChart is a great way to contact me if you have questions in between visits. If you are not already signed up for MyChart there is information at the end of this After Visit Summary to help you get started . MyChart is a great way to contact me if you have questions in between visits. If you are n ot already signed up for MyChart there is information at the end of this After Visit Summary to help you get started. documented in this encounter Progress Notes Willie Plunkett MD - 11/19/2012 1:32 PM PDTFormatting of this note might be different fro m the original. Clinic Date: 11/19/12 Clinic: Otology Clinic Primary Care Provider: Ender Wagoner MD History of Present Illness: Edgar is a 47 y.o. 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 He has been using the ear drops every now and then and the right ear is always draining. He has ruined many pillows. He has had continued issues with an abdominal infection. Current Outpatient Prescriptions Medication acetaminophen 500 mg Oral tablet Aspirin 81 mg Oral tablet CALCIUM CARBONATE (TUMS 500 ORAL) carBAMazepine (TEGRETOL) 200 mg Oral tablet ciprofloxacin (CILOXAN) 0.3 % Ophthalmic Drops clindamycin 300 mg Oral capsule cyclobenzaprine (FLEXERIL) 10 mg Oral tablet dexamethasone 0.1 % Ophthalmic Drops docusate sodium (COLACE) 100 mg Oral capsule fluticasone-salmeterol 250-50 mcg/dose Inhalation Disk with Device furosemide 10 mg Oral tablet gabapentin (NEURONTIN) 800 mg Oral tablet hydrochlorothiazide 25 mg Oral tablet HYDROcodone-acetaminophen (VICODIN) 5-500 mg Oral tablet ibuprofen 800 mg Oral tablet ipratropium (ATROVENT HFA) 17 mcg/actuation Inhalation HFA Aerosol Inhaler levothyroxine 25 mcg Oral tablet lisinopril 40 mg Oral tablet LORazepam (ATIVAN) 2 mg Oral tablet metFORMIN 500 mg Oral tablet metroNIDAZOLE 500 mg Oral tablet mirtazapine (REMERON) 30 mg Oral tablet Mometasone 110 mcg (30 doses) Inhalation Aerosol Powdr Breath Activated nitroglycerin 0.2% Topical Ointment omeprazole (PRILOSEC) 20 mg Oral capsule,delayed release(DR/EC) polyethylene glycol 17 gram/dose Oral Powder prazosin 2 mg Oral capsule prochlorperazine 5 mg Oral tablet promethazine 25 mg Oral tablet risperiDONE 0.5 mg Oral tablet senna (SENNA LAX) 8.6 mg Oral tablet simethicone chew 80 mg Oral tablet, chewable tiotropium 18 mcg Inhalation capsule, w/inhalation device traMADol 50 mg Oral tablet Allergies Allergen Reactions Morphine Psychosis? 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 Revision Right CWD mastoid, Ct prior we will contact him to schedule. Willie Plunkett MD Access Control Specialist Otology, Neurotology & Skull Base Surgery documented in this en counter Plan of Treatment +--------+ + + + + | Date | Type | Specialty | Care Team | Description | +--------+ + + + + | 04/29/ | Diagnostic | Well Puller Head | Marce Meyer | | | 2019 | Visit | | Finn, Eve [address] [facility] | | | | | | [address] | | | | | | [place], [place] | | | | | | [address] | | +--------+ + + + + [...] | | | | | | SABINA V MAMADOU, | | | | | | MDAuthor: RAJENDRA SPRAGUE, | | | | | | I [...] | | | | signed / SABINA V | | | | | | MAMADOU 12/03/2012 | | | | | | 14:37PM Pending final | | | | | | approval / RAJENDRA | | | | | | DARCIE 12/03/2012 14:20 | | | | | | PM Preliminary / | | | | | | RAJENDRA SPRAGUE 12/03/2012 | | | | | | [...]
--- OUTSIDE RECORDS SUMMARY | ~2019-04-25 | XMS | Encounter Summary ---
Demographics + + + | Address | [address] | | | [place] [address] | + + + | Home Phone [...] [place] | | | | | [address] | | + + + + + Care Team Providers + +------+ + | Care Academic Counselor Name | Role | Phone | + +------+ + | Jaison Chávez MD | PCP | | + +------+ + Encounter Details +--------+ + + + + | Date | Type | Department | Care Team | Description | +--------+ + + + + | 01/18/ | Results | NON-[facility] EPIC | Fiorella Beyer, | | | 2007 | Only | Department | [place] [address] [facility] | | | | | | [address] [place] | | | | | | [address] | | | | | | | [...] + + | 04/29/ | Diagnostic | Franchise Sales Manager | Marce Meyer | | | 2019 | Visit | | Finn, Eve [address] | | | | | | [address] | | | | | | [place], [place] | | | | | | [address] | | +--------+ + + + + documented as of this encounter Procedures + +--------+ + + + | Procedure Name | Priori | Date/Time | Associated Diagnosis | Comments | | | ty | | | | + +--------+ + + + | ABDOMINAL ULTRASOUND | Routin | 01/19/2008 | | Results for this | | 11678 | e | 8:38 AM | | procedure are in the | | | | PDT | | results section. | + +--------+ + + + documented in this encounter Results ABDOMINAL ULTRASOUND [id number] (01/19/2008 8:38 AM PDT) + + | Specimen | + + | | + + + + + | Narrative | Performed At | + + + | ABDOMINAL ULTRASOUND CLINICAL HISTORY: Elevated LFTs. | [facility] | | TECHNIQUE: Multiple real-time sonographic images of the abdomen | DEPARTMENT OF | | were obtained utilizing a 3.0 megahertz transducer. | RADIOLOGY | | COMPARISON: None available. FINDINGS: The liver is slightly | | | increased in echotexture, consistent with mild fatty | | | infiltration. There is no underlying mass or intrahepatic biliary | | | duct dilatation within the visualized portions of the liver. The | | | common bile duct measures 2 to 3 mm and is normal in diameter. No | | | gallstones are visualized and there is no gallbladder wall thickening | | | or pericholecystic fluid collection. There is mild splenomegaly | | | noted. The spleen measures 14.2 cm x 5.7 cm. Both kidneys are | | | normal in size and echotexture and there is no focal mass, | | | hydronephrosis or nephrolithiasis. The left kidney measures 14.1 cm | | | x 5.9 cm x 6.8 cm. The right kidney measures 14.0 cm x 6.7 cm x | | | 6.4 cm. IMPRESSION: 1. Mild fatty infiltration of the | | | liver. No focal hepatic mass. 2. Mild splenomegaly. [id number] | | + + + + + | Procedure Note | + + | Interface, Radiology Results - 03/16/2015 12:50 PM PDT ABDOMINAL ULTRASOUND | | CLINICAL HISTORY: Elevated LFTs. | | TECHNIQUE: Multiple real-time sonographic images of the abdomen were | | obtained utilizing a 3.0 megahertz transducer. | | COMPARISON: None available. | | FINDINGS: The liver is slightly increased in echotexture, consistent | | with mild fatty infiltration. There is no underlying mass or | | intrahepatic biliary duct dilatation within the visualized portions of | | the liver. The common bile duct measures 2 to 3 mm and is normal in | | diameter. No gallstones are visualized and there is no gallbladder | | wall thickening or pericholecystic fluid collection. There is mild | | splenomegaly noted. The spleen measures 14.2 cm x 5.7 cm. Both | | kidneys are normal in size and echotexture and there is no focal mass, | | hydronephrosis or nephrolithiasis. The left kidney measures 14.1 cm x | | 5.9 cm x 6.8 cm. The right kidney measures 14.0 cm x 6.7 cm x 6.4 cm. | | IMPRESSION: | | 1. Mild fatty infiltration of the liver. No focal hepatic mass. | | 2. Mild splenomegaly. | | [id number] | + + + +---------+ + + [...]
--- OUTSIDE RECORDS SUMMARY | ~2019-04-25 | XMS | Encounter Summary ---
Demographics + + + | Address | [address] | | | [place] [address] | + + + | Home Phone [...] [place] | | | | | [address] | | + + + + + Care Team Providers + +------+ + | Care Search Engine Optimization Analyst Name | Role | Phone | [...] | | | | GENERAL | | [address] | | | | | | | Phone: | | | | | | | [phone] | | | | | | | Fax: | | | | | | | [phone] | +--------+ + + + + + Encounter Details +--------+---------+ + + + | Date | Type | Department | Care Team | Description | +--------+---------+ + + + | 09/29/ | Office | Digestive Health | Ayana Butler W, | Infected seroma, | | 2012 | Visit | Center at [facility] [address] | [address] | postoperative | | | | [address] | [place], [place] | (Primary Dx) | | | | Mailcode: Center | [address] | | | | | for Health and | [phone] | | | | | Healing, [address] | | | | | | [place], [place] | | | | | | [address] | | | | | | [phone] | | | +--------+---------+ + + + [...] consider BID miralax PRN. Ayana Butler MD Transformer Stock Clerk Division of General and Gastrointestinal Surgery Department of Surgery, [address] [place] [address] documented in this en counter Plan of Treatment +--------+ + + + + | Date | Type | Specialty | Care Team | Description | +--------+ + + + + | 04/29/ | Diagnostic | Time Checker | Mitch Marce | | | 2018 | Visit | | Eve Briseno [address] | | | | | | [address] | | | | | | [facility] | | | | | | [address] | | +--------+ + + + + documented as of this encounter Visit Diagnoses + + | Diagnosis | + + | Infected seroma, postoperative - Primary Infected postoperative seroma | + + documented in this encounter
--- OUTSIDE RECORDS SUMMARY | ~2019-04-25 | XMS | Encounter Summary ---
Demographics + + + | Address | [address] | | | [place] [address] | + + + | Home Phone [...] [place] | | | | | [address] | | + + + + + Care Team Providers + +------+ + | Care Bi Technical Lead Name | Role | Phone | + [...] | | | | | | [place] [address] | | | | | | [phone] | | | +--------+ + + + [...] + + | 04/29/ | Diagnostic | Vice President Of Contracts | Marce Meyer | | | 2019 | Visit | | Eve Briseno [address] | | | | | | [address] | | | | | | [place], [place] | | | | | | [address] | | +--------+ + + + + documented as of this encounter Visit Diagnoses Not on filedocumented in this encounter"
--- OUTSIDE RECORDS SUMMARY | ~2019-04-25 | XMS | Encounter Summary ---
Demographics + + + | Address | [address] | | | [place] [address] | + + + | Home Phone [...] Author + + + | Author | [facility] | + + + | Organization | [facility] | + + + [...] [place] | | | | | [address] | | + + + + + Care Team Providers + +------+ + | Care Medical Driver Name | Role | Phone | [...] | | | | [place] | [address] | | | | | [address] | [place] [address] | | | | | | [phone] | | | | | | | [...] + + | 04/29/ | Diagnostic | General Adjuster | Marce Meyer | | | 2019 | Visit | | Eve Briseno [address] [facility] | | | | | | [address] | | | | | | [place] | | | | | | [address] | | +--------+ + + + + documented as of this encounter Visit Diagnoses Not on filedocumented in this encounter"
--- OUTSIDE RECORDS SUMMARY | ~2019-04-25 | XMS | Encounter Summary ---
Demographics + + + | Address | [address] | | | [place] [address] | + + + | Home Phone [...] [place] | | | | | [address] | | + + + + + Care Team Providers + +------+ + | Care Personal Lines Sales Rep Name | Role | Phone | + [...] | | | | | [place] [address] | | | | | | [phone] | | | | | | | [...] + + | 04/29/ | Diagnostic | Multimedia Editor | Marce Meyer | | | 2019 | Visit | | Eve Briseno [address] | | | | | | [address] | | | | | | [place], [place] | | | | | | [address] | | +--------+ + + + + documented as of this encounter Procedures + +--------+ + + + | Procedure Name | Priori | Date/Time | Associated Diagnosis | Comments | | | ty | | | | + +--------+ + + + | ABDOMEN AND PELVIS | Routin | 08/12/2008 | | [place] | [place] [address] | e | 5:54 PM | | procedure are in the | | | | PST | | results section. | + +--------+ + + + | ABDOMEN 1 VIEW 05702 | Routin | 08/12/2008 | | Results for this | | | e | 8:57 AM | | procedure are in the | | | | PST | | results section. | + +--------+ + + + | CHEST 1 VIEW (AP [place] | Routin | 08/12/2008 | | Results for this | | PA) [address] | e | 8:57 AM | | procedure are in the | | | | PST | | results section. | + +--------+ + + + documented in this encounter [place] [address] (08/12/2008 5:54 PM PST) + + | [...] Dr. Fernandes on the evening of 08/13/08. 355766 | | + + + + + [...] 08/12/08 and with on the evening of 08/13/08.609287 | |a [place] catheter. The prostate gland [...] |Dena on the evening of 08/13/08. | |028062 | + + + +---------+ + + | Performing | Address | City/State/Zipcode | Phone Number | | Organization | | | | + +---------+ + + | [facility] | | | | | RADIOLOGY | | | | + +---------+ + + ABDOMEN 1 VIEW [address]2265 (08/12/2008 8:57 AM PST) + + | [...] | | | intestinal obstruction. Air-filled colon. 436425 | | + + + + + [...] | intestinal obstruction. Air-filled colon. | | 634687 | + + + +---------+ + + | Performing | Address | City/State/Zipcode | Phone Number | | Organization | | | | + +---------+ + + | [facility] | | | | | RADIOLOGY | | | | + +---------+ + + CHEST 1 VIEW (EAN OR CYNTHIA) 68600 (08/12/2008 8:57 AM PST) + + | [...] | | | infiltrate or pulmonary edema. 394659 | | + + + + + [...] or | | pulmonary edema. | | 846055 | + + + +---------+ + + [...]
--- OUTSIDE RECORDS SUMMARY | ~2019-04-25 | XMS | Encounter Summary ---
Demographics + + + | Address | [address] | | | [place] [address] | + + + | Home Phone [...] [place] | | | | | [address] | | + + + + + Care Team Providers + +------+ + | Care Tuck Pointer Helper Name | Role | Phone | [...] + + + | Closed | | Etl Application Developer | Diagnoses | Reese | Ent | [...] Chris | | | | | | [address] | [place], [place] | | | | | | Phone: | [address] | | | | | | [phone] | Phone: | | | | | | Fax: | [phone] | | | | | | [phone] | Fax: | | | | | | | [phone] | +--------+--------+ + + + + Encounter [...] | | [address] | Rd [place], [place] | | | | | Mailcode: PV01 | [address] | | | | | Physician's Chris | | | | | | [facility] [place] | | | | | | [address] | | | | | | [phone] | | | +--------+---------+ + + + [...] that a request will be made to [facility] on his behalf for upgrade to the Nucleus 5 cochlear implant system. Followin g authorization from his insurance, Mr. Marquez will return for Sprint/N5 upgrade. Melodie Herbert M.A., YULIA-A Clinical & Rehabilitative Etl Application Developer [facility] Cochlear Implant Program Departement of Otolaryngology/Head & Neck Surgery documented in t his encounter Plan of Treatment +--------+ + + + + | Date | Type | Specialty | Care Team | Description | +--------+ + + + + | 04/29/ | Diagnostic | Etl Application Developer | Marce Meyer | | | 2019 | Visit | | Finn, AuD [address] [facility] | | | | | | [address] | | | | | | [place] | | | | | | [address] | | +--------+ + + + + documented as of this encounter Procedures + +--------+ + + + | Procedure Name | Priori | Date/Time | Associated Diagnosis | Comments | | | ty | | | | + +--------+ + + + | NH SPEECH & HEARING | Routin | 11/19/2010 [...]
--- OUTSIDE RECORDS SUMMARY | ~2019-04-25 | XMS | Encounter Summary ---
Demographics + + + | Address | [address] | | | [place] [address] | + + + | Home Phone [...] [place] | | | | | [address] | | + + + + + Care Team Providers + +------+ + | Care Network Design Architect Name | Role | Phone | [...] | | | | | BENIGN | [place], [place] | [address] [facility] | | | | | DISEASE [place] | [address] | Hospital | | | | | | Phone: | [place], [place] | | | | | | [phone] | [address] | | | | | | Fax: | Phone: | | | | | | | [phone] | | | | | | | Fax: | | | | | | | [phone] | +--------+--------+ + + + + Diagnostic Testing (Routine) +--------+--------+ + + + + | Status | Reason | Specialty | Diagnoses / | Referred By | Referred To | | | | | Procedures | Contact | Contact | +--------+--------+ + + + + | Closed | | Radiology | Diagnoses | McMsarithamey, | Rad Ct Scan | | | | | Otitis | MD Jose | s [address] | | | | | externa | [address] | | | | | Procedures | Avenue | [address] | | | | | [address] | [address] | Mailcode: | | | | | BENIGN | [place], [place] | [address] [facility] | | | | | DISEASE [place] | [address] | [facility] | | | | | | Phone: | [place], [place] | | | | | | [phone] | [address] | | | | | | Fax: | Phone: | | | | | | | [phone] | | | | | | | Fax: | | | | | | | [phone] | +--------+--------+ + + + + Reason for Visit AUTH/CERT +--------+--------+ + [...] | | | | | | | [address] | | | | | | | [address] | | | | | | | [facility] | | | | | | | Hospital | | | | | | | [place], [place] | | | | | | | [address] | | | | | | | Phone: | | | | | | | [phone] | | | | | | | Fax: | | | | | | | [phone] | +--------+--------+ + + + + Encounter Details +--------+ + + + + | Date | Type | Department | Care Team | Description | +--------+ + + + + | 12/03/ | Hospital | Diagnostic Imaging | | | | 2010 | Encounter | Services at [facility] | | | | | | [address] | | | | | | [address] Mailcode: | | | | | | [address] [facility] | | | | | | [place], [place] | | | | | | [address] | | | | | | [phone] | | | +--------+ + + + [...] + + | 04/29/ | Diagnostic | Auditing Control Clerk | Marce Meyer | | | 2018 | Visit | | Eve Briseno [address] | | | | | | [address] | | | | | | [place], [place] | | | | | | [address] | | +--------+ + + + + documented as of this encounter Procedures + +--------+ + + + | Procedure Name | Priori | Date/Time | Associated Diagnosis | Comments | | | ty | | | | + +--------+ + + + | CT [place] BENIGN | Routin | 12/03/2010 | Otitis externa | Results for this | | DISEASE WO CONTRAST | e | 1:32 PM | | procedure are in the [...] CT | | | | | | /05/02. Since | | | | | | [...] Diagnosis | + + | Otitis externa Infective otitis externa, unspecified | + + documented in this encounter"
--- OUTSIDE RECORDS SUMMARY | ~2019-04-25 | XMS | Encounter Summary ---
Demographics + + + | Address | [address] | | | [place] [address] | + + + | Home Phone [...] [place] | | | | | [address] | | + + + + + Care Team Providers + +------+ + | Care Form Setter Supervisor Name | Role | Phone | [...] as of this encounter Progress Notes Stevie, Research Chemical Engineer In - 04/06/2006 3:04 AM PDTCLINIC DATE: [...] satisfactory. Aamir Chan M.D. TONY / MALORIE [id number] / [id number] / [id number] / [id number] signed by Stevie, Research Chemical Engineer In at 04/06/2006 3:04 AM PDTdoc umented in this encounter Plan of Treatment +--------+ + + + + | Date | Type | Specialty | Care Team | Description | +--------+ + + + + | 04/29/ | Diagnostic | X Ray Service Technician | Marce Meyer | | | 2019 | Visit | | Eve Briseno [address] | | | | | | [address] | | | | | | [place] | | | | | | [address] | | +--------+ + + + + documented as of this encounter Visit Diagnoses Not on filedocumented in this encounter"
--- OUTSIDE RECORDS SUMMARY | ~2019-04-25 | XMS | Encounter Summary ---
Demographics + + + | Address | [address] | | | [place] [address] | + + + | Home Phone [...] [place] | | | | | [address] | | + + + + + Care Team Providers + +------+ + | Care Books Salesperson Name | Role | Phone | + [...] + + | 04/29/ | Diagnostic | Campus Supervisor | Marce Meyer | | | 2019 | Visit | | Eve Briseno [address] | | | | | | [address] | | | | | | [place], [place] | | | | | | [address] | | +--------+ + + + + [...] | [place] | | [place] [address] | | | [facility] | Streets | | | + [...] | | | PROTEIN | performed at [facility] | | DIAGNOSTICS | | | | [id number] | | -[facility] | | | | [address] | | | | | | [address], | | | | | | [place] [address]Nayekbyn | | | | | | : ASHLEY HORTON MD | | | | + + + + + + + + | Specimen | + + | | + + + + + + + | Performing | Address | City/State/Zipcode | Phone Number | | Organization | | | | + + + + + | [facility] | [address] | [place] [address] | [phone] | | [facility] | | | | + + + + + | [facility] | | | | | [facility] | | | | + + + [...] + + + | BANDS % | AMPHIBIOUS OPERATIONS OFFICER | 0 - 7 % | [place] [...] + + | [place] | And | [place] [address] | | | [facility] | [facility] | | | + + + [...] 10 | 8 - 30 MG/DL | [facility] | | | (LAB) | | | A MEDICAL | | | | | | CENTER | | + + + + + + | CREATININE | 0.63 (L) | 0.9 - 1.3 MG/DL | [facility] | | | PLASMA | | [...] 7.6 | 6.7 - 8.5 G/DL | [facility] | | | PROTEIN, | | | A MEDICAL | | | PLASMA | | | CENTER | | | (LAB) | | | | | + + + + + + | ALBUMIN, | 4.2 | 3.5 - 5.0 G/DL | [facility] | | | PLASMA | | | A MEDICAL | | | (LAB) | | | CENTER | | + + + + + + | BILIRUBIN | 0.5 | 0.2 - 1.6 MG/DL | [facility] | | | TOTAL | | | A MEDICAL | | | | | | CENTER | | + + + + + + | ESTIMATED | >60.0 | >60 | [facility] | | | GFR | | | [...] + + + | [place] | And [place] | [place] [address] | | | MEDICAL CENTER | Streets | | | + + + + + documented in this encounter Visit Diagnoses Not on filedocumented in this encounter"
--- OUTSIDE RECORDS SUMMARY | ~2019-04-25 | XMS | Encounter Summary ---
Demographics + + + | Address | [address] | | | [place] [address] | + + + | Home Phone [...] [place] | | | | | [address] | | + + + + + Care Team Providers + +------+ + | Care Steamfitter Apprentice Name | Role | Phone | + [...] | | Medicine Clinic at | A, SORTING COWS WORKER [address] | | | | | [facility] 4th Floor [address] | | | | | [address] | [place], [place] | | | | | Mailcode: CH4S | [address] | | | | | [facility] | [phone] | | | | | and Healing, | | | | | | Building 1,4th Floor | | | | | | [place], [place] | | | | | | [address] | | | | | | [phone] | | | +--------+ + + + [...] + + | 04/29/ | Diagnostic | Caramel Cutter Hand | Marce Meyer | | | 2019 | Visit | | Eve Briseno [address] [facility] [address] [facility] | | | | | | [address] | | | | | | [place] | | | | | | [address] | | +--------+ + + + + documented as of this encounter Visit Diagnoses Not on filedocumented in this encounter"
--- OUTSIDE RECORDS SUMMARY | ~2019-04-25 | XMS | Encounter Summary ---
Demographics + + + | Address | [address] | | | [place] [address] | + + + | Home Phone [...] [place] | | | | | [address] | | + + + + + Care Team Providers + +------+ + | Care Pharmacy Scheduler Name | Role | Phone | [...] Abdominal | Ayana Jovel MD | [facility] [address] | | | | | wall fluid | [address] | | | | | collections | Ave | Toy[place] Spencer | | | | | Procedures | [place], [place] | Mailcode: | | | | | CT PELVIS [address] | [address] | [address] [facility] | | | | | IV CONTRAST | Phone: | Hospital | | | | | | [phone] | [place], [place] | | | | | | Fax: | [address] | | | | | | [phone] | Phone: | | | | | | | [phone] | | | | | | | Fax: | | | | | | | [phone] | +--------+--------+ + + + + Encounter Details +--------+ + + + + | Date | Type | Department | Care Team | Description | +--------+ + + + + | 10/20/ | Hospital | Radiology/Imaging | | | | 2012 | Encounter | Lab at [facility] [address] | | | | | | [address] Mailcode: | | | | | | CH3G [facility] | | | | | | Health and Healing, | | | | | | [place] [address], [facility] | | | | | | Floor [place], [place] | | | | | | [address] | | | | | | [phone] | | | +--------+ + + + [...] + + documented as of this encounter Tania Vargas - 11/05/2012 3:13 PM PDTElectronically signed by Tania Martins at 3 3:13 PM PDTdocumented in this encounter Medications at Time of [...] + | 04/29/ | Diagnostic | Senior Java Web Developer | Marce Meyer | | | 2019 | Visit | | Eve Briseno [address] | | | | | | [address] | | | | | | [place], [place] | | | | | | [address] | | +--------+ + + + + documented as of this encounter Procedures + +--------+ + + + | Procedure Name | Priori | Date/Time | Associated Diagnosis | Comments | | | ty | | | | + +--------+ + + + | PROCEDURE NOTE | Routin | 08/30/2015 | | Results for this | | | e | 10:59 PM | | procedure are in the | | | | PST | | results section. | + +--------+ + + + | CREATININE, POC | Routin | 10/20/2012 | | Results for this | | | e | 12:56 PM | | procedure are in the | | | | PDT | | results section. | + +--------+ + + + documented in this encounter Results PROCEDURE NOTE (08/30/2015 10:59 PM PST) + + | Transcriptions | + + | Other, Faculty - 11/05/2012 3:13 PM PDT | + + ROUTINE CHEMISTRY TESTS (RADIOLOGY), POC (10/20/2012 12:56 PM PDT) + +-------+ + + + | Component | Value | Ref Range | Performed | Pathologist | | | | | At | Signature | + +-------+ + + + | BUN, POC | 17 | 6 - 20 mg/dL | [facility], | | | | | | POINT OF | | | | | | CARE TESTS | | + +-------+ + + + | CREATININE, | 0.9 | 0.7 - 1.3 mg/dL | [facility], | | | POC | | | [...] + + | MARKELL DARLING | [address] | [place] [address] | | | OF CARE TESTS | | | | + + + + + documented in this encounter Visit Diagnoses + + | Diagnosis | + + | Abdominal wall fluid collections Other ascites | + + documented in this encounter"
--- OUTSIDE RECORDS SUMMARY | ~2019-04-25 | XMS | Encounter Summary ---
Demographics + + + | Address | [address] | | | [place] [address] | + + + | Home Phone [...] [place] | | | | | [address] | | + + + + + Care Team Providers + +------+ + | Care Manager Social Responsibility Name | Role | Phone | + [...] | | | | | mastoid(385. | [place], [place] | [address] [facility] | | | | | 33) | [address] | Hospital | | | | | Procedures | | [place], [place] | | | | | [address] | | [address] | | | | | BENIGN | | Phone: | | | | | DISEASE WO | | [phone] | | | | | | | Fax: | | | | | | | [phone] | +--------+--------+ + + + + Reason [...] | | | | [facility] | [facility] | | | | | | Grp | Rd [place], | | | | | | [facility] | [place] | | | | | | [address] | [address] | | | | | | [facility] | | | | | | | [address] | | | | | | | [address] | | | | | | | [place], | | | | | | | [place] [address] | | | | | | | Phone: | | | | | | | [phone] | | | | | | | Fax: | | | | | | | [phone] | | +--------+--------+ + + + + [...] Perez | | | | | | [place], [place] | | | | | | [address] | | | | | | [phone] | | | +--------+---------+ + + + [...] contact him to schedule. Willie Plunkett MD Still Operator Batch Or Continuous Otology, Neurotology & Skull Base Surgery documented in this en counter Plan of Treatment +--------+ + + + + | Date | Type | Specialty | Care Team | Description | +--------+ + + + + | 04/29/ | Diagnostic | Children'S Entertainer | Marce Meyer | | | 2019 | Visit | | Finn, Eve [address] [facility] [address] | | | | | | [address] | | | | | | [place], [place] | | | | | | [address] | | +--------+ + + + + [...]
--- OUTSIDE RECORDS SUMMARY | ~2019-04-25 | XMS | Encounter Summary ---
Demographics + + + | Address | [address] | | | [place] [address] | + + + | Home Phone [...] | Margarito Owusu | ECON | [address] | | | | | [place] | | | | | [address] | | + + + + + Care Team Providers + +------+ + | Care Director Of Employer Services Name | Role | Phone | [...] as of this encounter Progress Notes Interface, Therapeutic Sales Specialist In - 02/23/2005 8:01 AM PDT [id number] [facility] Date: 05/14/2004 Clinic: [facility] [...] Poe. Meka Murray M.A., C.C.C.-A. Cochlear Implant Shoe Caser Carlos / [id number] / [id number] / [id number] / [id number] documented i n this encounter Plan of Treatment +--------+ + + + + | Date | Type | Specialty | Care Team | Description | +--------+ + + + + | 04/29/ | Diagnostic | Shoe Caser | Marce Meyer | | | 2019 | Visit | | Eve Briseno [address] [facility] | | | | | | [address] | | | | | | [place] | | | | | | [address] | | +--------+ + + + + documented as of this encounter Visit Diagnoses Not on filedocumented in this encounter"
--- OUTSIDE RECORDS SUMMARY | ~2019-04-25 | XMS | Encounter Summary ---
Demographics + + + | Address | [address] | | | [place] [address] | + + + | Home Phone [...] [place] | | | | | [address] | | + + + + + Care Team Providers + +------+ + | Care Pay Per Click Strategist Name | Role | Phone | + [...] 2007 | Registratio | [address] | [address] [place] [address] | | | | n | Rd Mailcode: [id number] | [address] [place] | | | | | [place], [place] | [place] [address] | | | | | [address] | [phone] | | | | | [phone] | (Fax) | | +--------+ + + [...] + + | 04/29/ | Diagnostic | Peer Educator | Marce Meyer | | | 2019 | Visit | | Eve Briseno [address] [facility] | | | | | | [address] | | | | | | [place], [place] | | | | | | [address] | | +--------+ + + + + documented as of this encounter Visit Diagnoses Not on filedocumented in this encounter"
--- OUTSIDE RECORDS SUMMARY | ~2019-04-25 | XMS | Encounter Summary ---
Demographics + + + | Address | [address] | | | [place] [address] | + + + | Home Phone [...] [place] | | | | | [address] | | + + + + + Care Team Providers + +------+ + | Care Heel Seat Filler Name | Role | Phone | + +------+ + | Deidre Card | PCP | | + +------+ + Reason for Visit + + + | Reason | Comments | + + + | Hearing loss | SPRINT PROCESSOR [id number] | + + + Encounter Details +--------+ + + + + | Date | Type | Department | Care Team | Description | +--------+ + + + + | 03/29/ | Documentati | [facility] at [facility] 7th | Haroon Poe, | Hearing loss (SPRINT | | 2007 | on | Floor [address] | PhD | PROCESSOR [id number]) | | | | [address] | | | | | | Mailcode: [facility] | | | | | | [place], [place] | | | | | | [address] | | | | | | [phone] | | | +--------+ + + + [...] + + | 04/29/ | Diagnostic | Machine Tool Builder | Marce Meyer | | | 2019 | Visit | | Eve Briseno [address] | | | | | | [address] | | | | | | [place], [place] | | | | | | [address] | | +--------+ + + + + documented as of this encounter Visit Diagnoses Not on filedocumented in this encounter"
--- OUTSIDE RECORDS SUMMARY | ~2019-04-25 | XMS | Encounter Summary ---
Demographics + + + | Address | [address] | | | [place] [address] | + + + | Home Phone [...] [place] | | | | | [address] | | + + + + + Care Team Providers + +------+ + | Care Ruby On Rails Engineer Name | Role | Phone | + +------+ + | Cee Triana MD | PCP | Unavailable | + +------+ + Encounter Details +--------+ + + + + | Date | Type | Department | Care Team | Description | +--------+ + + + + | 09/02/ | Documentati | Otolaryngology | Silvia, | | | 2012 | on | Cochlear Services | STEPHANIE Sewell [address] | | | | | [address] | [address] | | | | | Toya Spencer Mailcode: | [place] | | | | | [address] Physician's | [address] | | | | | Chris [place] | | | | | | [place] [address] | | | | | | [phone] | | | +--------+ + + + [...] + + | 04/29/ | Diagnostic | Information Systems Administrator | Marce Meyer | | | 2019 | Visit | | Eve Briseno [address] [facility] | | | | | | [address] | | | | | | [place] | | | | | | [address] | | +--------+ + + + + documented as of this encounter Visit Diagnoses Not on filedocumented in this encounter"
--- OUTSIDE RECORDS SUMMARY | ~2019-04-25 | XMS | Encounter Summary ---
Demographics + + + | Address | [address] | | | [place] [address] | + + + | Home Phone [...] [place] | | | | | [address] | | + + + + + Care Team Providers + +------+ + | Care Electronic News Gathering Editor Name | Role | Phone | + [...] | | | | | | | [place], [place] | | | | | | | [address] | | | | | | | Phone: | | | | | | | [phone] | | | | | | | Fax: | | | | | | | [phone] | +--------+--------+ + + + + Encounter Details +--------+---------+ + + + | Date | Type | Department | Care Team | Description | +--------+---------+ + + + | 03/09/ | Office | Digestive Health | Ayana Butler W, | Constipation | | 2012 | Visit | Center at [facility] [address] | MD [address] | (Primary Dx); | | | | [address] | [place], [place] | History of hernia | | | | Mailcode: Center | [address] | repair | | | | for Health and | [phone] | | | | | Healing, Building 2 | | | | | | [place], [place] | | | | | | [address] | | | | | | [phone] | | | +--------+---------+ + + + [...] senna, MOM prn constipation Ayana Butler MD Psychological Anthropologist Division of General and Gastrointestinal Surgery Department of Surgery, L223A [address] [facility] [place] [address] documented in this en counter Plan of Treatment +--------+ + + + + | Date | Type | Specialty | Care Team | Description | +--------+ + + + + | 04/29/ | Diagnostic | Geothermal Heat Pump Machinist | Marce Meyer | | | 2018 | Visit | | Eve Briseno [address] | | | | | | [address] | | | | | | [place], [place] | | | | | | [address] | | +--------+ + + + + documented as of this encounter Visit Diagnoses + + | Diagnosis | + + | Constipation - Primary | + + | History of hernia repair Other postprocedural status | + + documented in this encounter"
--- OUTSIDE RECORDS SUMMARY | ~2019-04-25 | XMS | Encounter Summary ---
Demographics + + + | Address | [address] | | | [place] [address] | + + + | Home Phone [...] | Author | [facility] | + + + | Organization | [facility] | + + + | Address | Unknown | + + + | Phone | Unavailable | + + + Support + + + + + | Name | Relationship | Address | Phone | + + + + + | Margarito Owusu | ECON | [address] | | | | | [place] | | | | | [address] | | + + + + + Care Team Providers + +------+ + | Care Devops Architect Name | Role | Phone | [...] | Lab at [facility] [address] | BEAD WIRE INSULATOR [address] | | | | Order | [address] | [place] [address] | | | | | Mailcode: UHS13 | [phone] | | | | | Paola Perez | | | | | | [address] [place], [place] | | | | | | [address] | | | | | | [phone] | | | +--------+ + + + [...] + + | 04/29/ | Diagnostic | Therapist Physical | Mitch Marce | | | 2019 | Visit | | Eve Briseno [address] [facility] | | | | | | [address] | | | | | | [place], [place] | | | | | | [address] | | +--------+ + + + + [...] + + + + + + | BXP45-32% | 1.63 | 3.65 L/sec | [facility] | | | PRE | | | SPECIAL | | | | | | DIAGNOSTICS | | | | | | - | | | | | | PULMONARY | | | | | | FUNCTION | | + + + + + + | UJH64-36% | 44 | % | [facility] | | | PRE (%REF) | | | SPECIAL | | | | | | DIAGNOSTICS | | | | | | - | | | | | | PULMONARY | | | | | | FUNCTION | | + + + + + + | MBJ48-04% | 1.91 | 3.65 L/sec | [facility] | | | POST | | | SPECIAL | | | | | | DIAGNOSTICS | | | | | | - | | | | | | PULMONARY | | | | | | FUNCTION | | + + + + + + | QNF15-13% | 52 | % | [facility] | [...] + + + + | PULMONARY | [facility] | | [facility] | | | INTERPRETAT | University | | SPECIAL | | | ION | Date: | | DIAGNOSTICS | | | | 05/24/12 | | - | | | | | | PULMONARY | | | | | | FUNCTION | | | | | | | | | | Id: | | | | | | [id number] | | | | | | [place], | | | | | | [place]: ALAM, EDGAR | | | | | | [...] 54 | | | | | | 26ROE09-51% | | | | | | L/sec 3.65 1.6 | | | | | | 3 | | | | | | 44 1.91 | | | | | | 52 17PEF | | | | | | L/sec 10.11 | | | | | | 5.07 | | | | | | 50 5.50 | | | | | | 54 [id number]% | | | | | | Sec [...] ECode | | | | | | [id number] | | | | | | | | | | | | [id number] | | | | | | L/min [...] CaucasianVersion: | | | | | | [id number]: | | | | | | ALMAGURJIT CASASIN | | | | | | ELLEN | | | | | | ID: | | | | | | [id number] | | | | | | | [...] | | | | | | max [id number] | | | | | | Volume LitersPE | | | | | | max [id number] | | | | | | Volume [...] significant.Version: | | | | | | [id number] | | | | | | | | | | | | Page 2Name: ALMA, | | | | | | EDGAR | | | | | | ELLEN | | | | | | ID: | | | | | | [id number] | | | | | | | [...] : | | | | | | [id number] | | | | | | | | | | | | Page 3Name: ALMA, | | | | | | EDGAR | | | | | | ELLEN | | | | | | ID: | | | | | | [id number]: | | | | | | [id number] | | | | | | | [...] AILYN MARTIN | [address] | [place], [place] | | | DIAGNOSTICS - | [address] | [address] | | | PULMONARY FUNCTION | | | | + + + + + documented in this encounter Visit Diagnoses + + | Diagnosis | + + | Chronic airway obstruction, not elsewhere classified - Primary | + + documented in this encounter"
--- OUTSIDE RECORDS SUMMARY | ~2019-04-25 | XMS | Encounter Summary ---
Demographics + + + | Address | [address] | | | [place] [address] | + + + | Home Phone [...] [place] | | | | | [address] | | + + + + + Care Team Providers + +------+ + | Care Business Unit Leader Name | Role | Phone | [...] | | | [address] Mailcode: | [place], [place] | | | | | [address] | [address] | | | | | [place], | | | | | | [place] [address] | | | | | | [phone] | | | +--------+ + + + [...] + + | 04/29/ | Diagnostic | Sound Effects Technician | Marce Meyer | | | 2019 | Visit | | Eve Briseno [address] | | | | | | [address] | | | | | | [place], [place] | | | | | | [address] | | +--------+ + + + + documented as of this encounter Visit Diagnoses Not on filedocumented in this encounter"
--- OUTSIDE RECORDS SUMMARY | ~2019-04-25 | XMS | Encounter Summary ---
Demographics + + + | Address | [address] | | | [place] [address] | + + + | Home Phone [...] [place] | | | | | [address] | | + + + + + Care Team Providers + +------+ + | Care Fitness Assistant Name | Role | Phone | [...] | Ventral | Maurice Perdomo, | Ayana Jovel MD | | | | | hernia, | MD [address] | [address] | | | | | recurrent | [address] | | | | | recurrent | [place] | [facility] [place] | | | | | ventral | [place] | [address] | | | | | hernia | [address] | Phone: | | | | | | Phone: | [phone] | | | | | | [phone] | Fax: | | | | | | Fax: | [phone] | | | | | | [phone] | | +--------+--------+ + + + + Encounter Details +--------+---------+ + + + | Date | Type | Department | Care Team | Description | +--------+---------+ + + + | 09/08/ | Office | Digestive Health | Ayana Butler, | Hernia (Primary Dx); | | 2017 | Visit | Center at [facility] [address] | [address] | Chronic obstructive | | | | [address] | [place], [place] | pulmonary disease, | | | | Mailcode: Center | [address] | unspecified COPD | | | | for Health and | [phone] | type ([facility]) | | | | [facility] [address] | | | | | | [place], [place] | | | | | | [address] | | | | | | [phone] | | | +--------+---------+ + + + [...] might be different fro m the original. [facility] Rturn Patient Visit ID: The [...] the patient was noted to have a martiniquais-cheese midline abdominal wall hernia defect and a [...] unspecified Chronic airway obstruction, not elsewhere classified ([facility]) PFTs 12/18/2011 FVC 5.19/99%, FEV1 2.82/69%, FEV1/FVC 54. Moderate obstruction with signif icant reversibility with bronchodilator. COPD (chronic obstructive pulmonary disease) ([facility]) oxygen dependent Depressive disorder, not elsewhere classified Diabetes mellitus type II on metformin GERD (gastroesophageal reflux disease) controlled on PPI Heart attack ([facility]) 2007 he was started on aspirin Hypertension [...] with his mother and stepfather in the [facility] but will be [facility] [place] [facility] soon. His sister will live with him. Frequent incarcerations in the past with much of his younger life spent in the retirement syst em--no prison time x 7 years Review of Systems: [...] + + | 04/29/ | Diagnostic | Security Engineer | Marce Meyer | | | 2018 | Visit | | Finn, Eve [address] | | | | | | [address] | | | | | | [place], [place] | | | | | | [address] | | +--------+ + + + + [...]
--- OUTSIDE RECORDS SUMMARY | ~2019-04-25 | XMS | Encounter Summary ---
Demographics + + + | Address | [address] | | | [place] [address] | + + + | Home Phone [...] [place] | | | | | [address] | | + + + + + Care Team Providers + +------+ + | Care Lobster Catcher Name | Role | Phone | + [...] | 2011 | on | Center at [facility] [address] | [address] | | | | | [address] | [facility] [place] | | | | | Mailcode: Center | [address] | | | | | for Health and | [phone] | | | | | [facility] [address] | | | | | | [place], [place] | | | | | | [address] | | | | | | [phone] | | | +--------+ + + + [...] + + | 04/29/ | Diagnostic | Pai Gow Dealer | Marce Meyer | | | 2019 | Visit | | Eve Briseno [address] | | | | | | [address] | | | | | | [facility] | | | | | | [address] | | +--------+ + + + + documented as of this encounter Visit Diagnoses Not on filedocumented in this encounter"
--- OUTSIDE RECORDS SUMMARY | ~2019-04-25 | XMS | Encounter Summary ---
Demographics + + + | Address | [address] | | | [place] [address] | + + + | Home Phone [...] [place] | | | | | [address] | | + + + + + Care Team Providers + +------+ + | Care Pheresis Specialist Name | Role | Phone | + +------+ + | Deidre Card | PCP | | + +------+ + Encounter Details +--------+ + + + + | Date | Type | Department | Care Team | Description | +--------+ + + + + | 08/01/ | Documentati | Otolaryngology | Haroon Poe, | | | 2008 | on | [facility] | PhD | | | | | [address] | | | | | | [place] Mailcode: | | | | | | [address] | | | | | | [place], | | | | | | [place] [address] | | | | | | [phone] | | | +--------+ + + + [...] + + | 04/29/ | Diagnostic | [employer] Shothole Driller | Marce Meyer | | | 2019 | Visit | | Eve Briseno [address] | | | | | | [address] | | | | | | [place] | | | | | | [address] | | +--------+ + + + + documented as of this encounter Visit Diagnoses Not on filedocumented in this encounter"
--- OUTSIDE RECORDS SUMMARY | ~2019-04-25 | XMS | Encounter Summary ---
Demographics + + + | Address | [address] | | | [place] [address] | + + + | Home Phone [...] [place] | | | | | [address] | | + + + + + Care Team Providers + +------+ + | Care Staff Forester Name | Role | Phone | + +------+ + | Kerri Chavarria NP | PCP | | + +------+ + Encounter Details +--------+ + + + + | Date | Type | Department | Care Team | Description | +--------+ + + + + | 06/01/ | Telephone | [facility] | Ayana Butler W, | | | 2011 | | [place] [facility] [address] | [phone] | | | | | [address] | [facility] [place] | | | | | Mailcode: [place] | [address] | | | | | for [facility] and | [phone] | | | | | [facility] [address] | | | | | | [facility] [place] | | | | | | [address] | | | | | | [phone] | | | +--------+ + + + [...] + + | 04/29/ | Diagnostic | Pack Operator | Marce Meyer | | | 2019 | Visit | | Eve Briseno [address] [place] [address] | | | | | | [address] | | | | | | [place] | | | | | | [address] | | +--------+ + + + + documented as of this encounter Visit Diagnoses Not on filedocumented in this encounter"
--- OUTSIDE RECORDS SUMMARY | ~2019-04-25 | XMS | Encounter Summary ---
Demographics + + + | Address | [address] | | | [place] [address] | + + + | Home Phone [...] [place] | | | | | [phone] | | + + + + + Care Team Providers + +------+ + | Care Tennis Racket Repairer Name | Role | Phone | + +------+ + | Cee Triana MD | PCP | Unavailable | + +------+ + Reason for Visit + + + | Reason | Comments | + + + | Post Op Problem | | + + + AUTH/CERT +--------+--------+ + [...] + + + + | 09/16/ | Hospital | [facility] [address] | Ayana Butler, | | | 2012 - | Encounter | [address] | [address] | | | | | [place], [place] | [place] | | | 09/18/ | | [address] | [address] | | | 2012 | | [phone] | [phone] | | | | | | | [...] + + + | Blood Pressure | 141/68 | 09/18/2012 10:09 AM | | | | | PST | | + + + + + | Pulse | 96 | 09/18/2012 10:09 AM | | | | | PST | | + + + + + | Temperature | 36.8 C (98.2 F) | 09/18/2012 10:09 AM | | | | | PST | | + + + + + | Respiratory Rate | 20 | 09/18/2012 10:09 AM | | | | | PST | | + + + + + | Oxygen Saturation | 98% | 09/18/2012 10:09 AM | | | | | PST | | + + + + + | Inhaled Oxygen | - | - | | | Concentration | | | | + + + + + | Weight | 111 kg (244 lb 11.4 | 09/17/2012 7:10 PM | | | | oz) | PST | | + + + + + | Height | 185.4 cm (6' 1") | 09/17/2012 3:00 PM | | | | | PST | | + + + + + | Body Mass Index | 32.29 | 09/17/2012 3:00 PM | | | | | PST | | + + + + + documented in this encounter Discharge Summaries Hardeep Pinon MD - 09/18/2012 11:39 AM PSTFormatting of this note might be different fro m the original. INPATIENT PHYSICIAN DISCHARGE SUMMARY Author: HARDEEP PINON MD Attending Physician: Ayana Butler MD PCP: Cee Triana MD Admission Date: 09/16/2012 Discharge Date: 18 Sep 2012 Diagnoses Principal Final Diagnosis: 1. Abdominal wall seroma Additional Diagnoses: Procedures 1. IR guided drainage of abdominal wall seroma Brief Hospital Course 1. Mr. Marquez was admitted with abdominal pain and leukocytosis concerning for infection o f his ventral hernia repair. CT scan showed fluid between the skin and soft tissue and his b iologic mesh. IR guided drainage was performed and gram's stain was negative for organisms. Ciprofloxacin and flagyl are to be continued for the next week. His pain is much improved an d he is eating a regular diet. He will follow up in general surgery clinic in 1 week for placido in removal. Medications: Current Discharge Medication List START taking these medications Details ciprofloxacin 500 mg Oral tablet Take 1 Tab by mouth two times daily. Qty: 14 Tab, Refills: 0 metroNIDAZOLE 500 mg Oral tablet Take 1 Tab by mouth three times daily. Qty: 21 Tab, Refills: 0 !! oxyCODONE, immediate release, 5 mg Oral tablet Take 1-2 Tabs by mouth every four hours a s needed for severe pain. Qty: 20 Tab, Refills: 0 !! - Potential duplicate medications found. Please [...] mL, Refills: 2 Associated Diagnoses: Chronic mastoiditis docusate sodium (COLACE) 100 mg Oral capsule Take 1 Cap by mouth two times daily. Qty: 60 Cap, Refills: 3 fluticasone-salmeterol 250-50 mcg/dose Inhalation Disk with Device [...] hours as needed. metFORMIN 500 mg Oral tablet Take 500 mg by mouth two times daily. mirtazapine (REMERON) 30 mg Oral tablet Take 30 mg by mouth once daily in the evening. Mometasone 110 mcg (30 doses) Inhalation Aerosol Powdr Breath Activated Inhale. nitroglycerin 0.2% Topical Ointment Apply 0.5 Inches to affected area two times daily. Admi nister upon rising and 6 hours later. Qty: 30 g, Refills: 1 omeprazole (PRILOSEC) 20 mg Oral capsule,delayed release(DR/EC) Take 20 mg by mouth once da gabe. !! oxyCODONE, immediate release, 5 mg Oral tablet Take 1-2 Tabs by mouth every six hours as needed for moderate pain or severe pain. Qty: 40 Tab, Refills: 0 polyethylene glycol 17 gram/dose Oral Powder Take 17 g by mouth two times daily. Qty: 527 g, Refills: 3 prazosin 2 mg Oral capsule Take 2 mg by mouth two times daily. prochlorperazine 5 mg Oral tablet Take 1 Tab by mouth every six hours as needed for nausea/ vomiting. Max dose: 40 mg/day Qty: 30 Tab, Refills: 0 promethazine 25 mg Oral tablet Take 25 mg by mouth four times daily as needed. risperiDONE 0.5 mg Oral tablet Take 0.5 mg by mouth two times daily. simethicone chew 80 mg Oral tablet, chewable Take 1 Tab by mouth three times daily as neede d for bloating. Qty: 60 Tab, Refills: 2 tiotropium 18 mcg Inhalation capsule, w/inhalation device Inhale 18 mcg once daily. traMADol 50 mg Oral tablet Take 50 mg by mouth every six hours as needed. !! - Potential duplicate medications found. Please discuss with provider. Diet Regular Regular diet- There are no restrictions to your diet. You may eat or drink whatever you pr efer, though healthy food choices are recommended. Activity No activity restrictions Maintain Drain IR drain to gravity bag. Record output daily and bring record to clinic appointment. Vitals on discharge: Ht 185.4 cm (6' 1")( < 3 %ile), Wt 111 kg (244 lbs 11.4 oz)( < 3 %ile) , BP 141/68, Pulse 96, Temperature 36.8 C (98.2 F), RR 20, SpO2 98%, BMI 32.29 kg/(m^2). Outstanding labs/studies: None Discharging Physician: HARDEEP PINON MD Attending Physician: MD Hardeep Kennedy MD Chief Resident Department of Surgery [facility] documented in this en counter Medications at Time of Discharge + + [...] encounter Progress Notes Hardeep Pinon MD - 09/18/2012 11:39 AM PSTBlue Surgery Progress Note Doing well. Pain improved since drain last night. No events. Ht 185.4 cm (6' 1")( < 3 %ile), Wt 111 kg (244 lbs 11.4 oz)( < 3 %ile), BP 141/68, Pulse 96 , Temperature 36.8 C (98.2 F), RR 20, SpO2 98%, BMI 32.29 kg/(m^2). NAD Chest clear RRR Soft, nt, nd, drain with serosanguinous fluid. No new labs. A/P: 47 year old man s/p IR guided drainage of abdominal wall seroma. -D/C home with 7 days of cipro/flagyl -Follow up with Dr. Butler in 1 week for possible drain removal. -Drain teaching prior to discharge. Hardeep Pinon MD Chief Resident Department of Surgery [facility] aFarzaneh rush DO - 09/17/2012 7:33 PM PSTBRIEF INTERVENTIONAL RADIOLOGY PROCEDURE NOTE DATE/TIME: 09/17/2012 at 7:33 PM PROCEDURE: Percutaneous drain placement, anterior abdominal wall, extraperitoneal. PRE-PROCEDURE DIAGNOSIS: Fluid collection suspicious for abscess. POST-PROCEDURE DIAGNOSIS: Same as above. IR STAFF: Ceasar. IR FELLOW: Jasen. ACCESS: Anterior abdominal wall, percutanous, extraperitoneal. MEDICATIONS: Fentanyl 100 mcg IV. Versed 2 mg IV. Lidocaine 1% 10 ml SQ. COMPLICATION(S): None immediate. FINDINGS: 1. Ultrasound showed mostly anechoic fluid collection interposed between the anterior abdom inal wall soft tissues and peritoneum / surgical mesh. 2. Drain placed into this fluid collection using both ultrasound and fluoroscopic guidance. 3. Approximately 75 ml thin, mostly clear, strawberry colored fluid with minimal floating d ebris; sample sent to lab for analysis. IMPRESSION / PLAN: 1. Percutanous anterior abdominal wall soft tissue drain placement, 10 Bangladeshi MPD, extraper itoneal. 2. Aspirated samples were sent for laboratory analysis, gram stain and culture. 3. Drain placed to gravity bag; record output. 4. Transfer back to [facility] under the care of the ordering providers. Full operative report currently pending at this time, which will be located in EPIC "Chart Review" section under "Imaging." FARZANEH LOVELACE DO Fellow, Interventional Radiology [facility] Frantz Campos MD - 09/17/2012 12:28 PM PST [facility] Department of Surgery [facility] Progress Note Author: Frantz Meyer MD Attending Physician: Ayana Butler MD 09/17/2012 SUBJECTIVE: Interval history: Pt anxious, not always cooperative C/o pain to abdomin +nausea OBJECTIVE: Vital Signs: Temp Av.8 C (98.2 F) Min: 36.7 C (98.1 F) Max: 36.9 C (98.4 F) Pulse Av.5 Min: 91 Max: 111 Systolic (24hrs), Av mmHg, Min:89 mmHg, Max:122 mmHg Diastolic (24hrs), Av mmHg, Min:56 mmHg, Max:68 mmHg Resp Av.4 Min: 18 Max: 20 SpO2 Av.6 % Min: 93 % Max: 95 % Intake/Output Summary (Last 24 hours) at 09/17/12 1228 Last data filed at 09/17/12 1100 Gross per 24 hour Intake 1090 ml Output 600 ml Net 490 ml Physical Exam: General: Alert, anxious, wanting to leave Cardiovascular: rrr Respiratory: unlabored Abdominal: large midline scar with palpable mass at midline, no drainage, no erythema, tend er to palpation. Labs/Cultures/Pathology: Recent Labs Basename 09/16/12 2316 NA 140 K 4.3 CL 106 BICARB 25 BUN 9 CR 0.66* CA 8.5* MG -- PO4 -- Recent Labs Basename 09/16/12 2316 WBC 11.0 HB 11.3* HCT 34.0* PLT 204 NEUTROPERC 71* BANDPCT -- LYMPHPERC 15* MONOPERC 8 BASOPERC 1 EOSPERC 6* Imaging/Diagnostic Studies: CT - suprafascial abscess ASSESSMENT: Edgar Marquez is a 47 y.o. male patient 3 weeks s/p incisional hernia re pair with mesh now with suprafascial abscess. No leukocytosis. Will ask IR to drain, and c ulture PLAN: 1. NPO 2. Continue home medications 3. Antiemetic 4. Continue abx's 5. Encourage ambulation Dr. Ayana Butler MD is the attending of record for this patient encounter. FRANTZ MEYER MD General Surgery, R1 Diagnoses: [id number] S/P hernia repair Meds: albuterol (aka PROVENTIL, VENTOLIN) 90 mcg/actuation inhaler 2-4 Puff, 2-4 Puff, Inhalation , Q4H PRN aspirin chewable tablet 81 mg, 81 mg, Oral, DAILY carBAMazepine (aka TEGRETOL) tablet 200 mg, 200 mg, Oral, BID ciprofloxacin (aka CIPRO) tablet 500 mg, 500 mg, Oral, BID dextrose IV 25 mL, 25 mL, Intravenous, PRN fluticasone-salmeterol (aka ADVAIR) 250-50 mcg/dose inhaler 1 Puff, 1 Puff, Inhalation, BID gabapentin (aka NEURONTIN) tablet 800 mg, 800 mg, Oral, TID glucagon (aka GLUCAGEN) injection 1 mg, 1 mg, Intramuscular, PRN glucose chewable tablet 16 g, 16 g, Oral, Q15MIN PRN HYDROmorphone (aka DILAUDID) injection 0.2-0.4 mg, 0.2-0.4 mg, Intravenous, Q2H PRN insulin lispro (aka HUMALOG) injection 1-16 Units, 1-16 Units, Subcutaneous, MEALS and HS ipratropium (aka ATROVENT) 17 mcg/actuation inhaler 2 Puff, 2 Puff, Inhalation, QID PRN lactated ringers IV, 100 mL/hr, Intravenous, CONTINUOUS levothyroxine tablet 25 mcg, 25 mcg, Oral, BEFORE BREAKFAST LORazepam (aka ATIVAN) tablet 1 mg, 1 mg, Oral, Q4H PRN metroNIDAZOLE (aka FLAGYL) tablet 500 mg, 500 mg, Oral, TID nitroglycerin (aka NITROSTAT) tablet 0.4 mg, 0.4 mg, Sublingual, Q5MIN PRN omeprazole (aka PRILOSEC) capsule 20 mg, 20 mg, Oral, DAILY ondansetron (aka ZOFRAN) injection 4 mg, 4 mg, Intravenous, Q12H PRN ondansetron ODT (aka ZOFRAN ODT) tablet 4-8 mg, 4-8 mg, Oral, Q8H PRN oxyCODONE (immediate release) (aka ROXICODONE) tablet 5-10 mg, 5-10 mg, Oral, Q4H PRN polyethylene glycol (aka MIRALAX) powder 17 g, 17 g, Oral, DAILY PRN prazosin (aka MINIPRESS) capsule 2 mg, 2 mg, Oral, BID promethazine (aka PHENERGAN) tablet 25 mg, 25 mg, Oral, QID PRN risperiDONE (aka RISPERDAL) tablet 0.5 mg, 0.5 mg, Oral, BID tiotropium (aka SPIRIVA) inhalation 18 mcg, 18 mcg, Inhalation, DAILY documented in this enc ounter Plan of Treatment +--------+ + + + + | Date | Type | Specialty | Care Team | Description | +--------+ + + + + | 04/29/ | Diagnostic | Microbiology Quality Control Technician | Marce Meyer | | | 2019 | Visit | | K, AuD [address] | | | | | | [address] | | | | | | [place], [place] | | | | | | [address] | | +--------+ + + + + + +------+--------+ + + | Name | Type | Priori | Associated Diagnoses | Order Schedule | | | | ty | | | + +------+--------+ + + | CULTURE, BODY FLUID | Lab | Routin | | One Time in IR for 1 | | | | e | | Occurrences | | | | | | starting 09/17/2012 | + +------+--------+ + + documented as of this encounter Procedures + +--------+ + + + | Procedure Name | Priori | Date/Time | Associated Diagnosis | Comments | | | ty | | | | + +--------+ + + + | CAPILLARY BLOOD | Routin | 09/18/2012 | | Results for this | | GLUCOSE (NO CHG), | e | 4:27 PM | | procedure are in the | | POC | | PST | | results section. | + +--------+ + + + | CAPILLARY BLOOD | Routin | 09/18/2012 | | Results for this | | GLUCOSE (NO CHG), | e | 12:02 PM | | procedure are in the | | POC | | PST | | results section. | + +--------+ + + + | CAPILLARY BLOOD | Routin | 09/18/2012 | | Results for this | | GLUCOSE (NO CHG), | e | 7:29 AM | | procedure are in the | | POC | | PST | | results section. | + +--------+ + + + | CAPILLARY BLOOD | Routin | 09/17/2012 | | Results for this | | GLUCOSE (NO CHG), | e | 8:51 PM | | procedure are in the | | POC | | PST | | results section. | + +--------+ + + + | CULTURE, WOUND | Routin | 09/17/2012 | | Results for this | | ABSCESS OR ASPIRATE | e | 7:28 PM | | procedure are in the | | W/ ANAEROBE | | PST | | results section. | + +--------+ + + + | ABSCESS BODY | Routin | 09/17/2012 | | Results for this | | DRAINAGE | e | 6:24 PM | | procedure are in the | | | | PST | | results section. | + +--------+ + + + | CAPILLARY BLOOD | Routin | 09/17/2012 | | Results for this | | GLUCOSE (NO CHG), | e | 6:05 PM | | procedure are in the | | POC | | PST | | results section. | + +--------+ + + + | CAPILLARY BLOOD | Routin | 09/17/2012 | | Results for this | | GLUCOSE (NO CHG), | e | 12:44 PM | | procedure are in the | | POC | | PST | | results section. | + +--------+ + + + | CAPILLARY BLOOD | Routin | 09/17/2012 | | Results for this | | GLUCOSE (NO CHG), | e | 6:15 AM | | procedure are in the | | POC | | PST | | results section. | + +--------+ + + + | CAPILLARY BLOOD | Routin | 09/16/2012 | | Results for this | | GLUCOSE (NO CHG), | e | 11:49 PM | | procedure are in the | | POC | | PST | | results section. | + +--------+ + + + | CBC AND AUTO DIFF | Routin | 09/16/2012 | | Results for this | | | e | 11:16 PM | | procedure are in the | | | | PST | | results section. | + +--------+ + + + | INR | Routin | 09/16/2012 | | Results for this | | | e | 11:16 PM | | procedure are in the | | | | PST | | results section. | + +--------+ + + + | CBC, WITH | Routin | 09/16/2012 | | Results for this | | DIFFERENTIAL | e | 11:16 PM | | procedure are in the | | | | PST | | results section. | + +--------+ + + + | COMPLETE METABOLIC | Routin | 09/16/2012 | | Results for this | | SET | e | 11:16 PM | | procedure are in the | | (NA,K,CL,CO2,BUN,CRE | | PST | | results section. | | AT,GLUC,CA,AST,ALT,B | | | | | | TERRY TOTAL,ALK | | | | | | PHOS,ALB,PROT TOTAL) | | | | | + +--------+ + + + documented in this encounter Results CAPILLARY BLOOD GLUCOSE (NO CHG), POC (09/18/2012 4:27 PM PST) + +-------+ + + + | Component | Value | Ref Range | Performed | Pathologist | | | | | At | Signature | + +-------+ + + + | BLOOD | 79 | 60 - 99 mg/dL | [facility] [...] | + + + + + | [facility] | [address] | [place], [place] | | | [facility] | [address] | [address] | | | TESTS | | | | + + + + + CAPILLARY BLOOD GLUCOSE (NO CHG), POC (09/18/2012 12:02 PM PST) + +-------+ + + + | Component | Value | Ref Range | Performed | Pathologist | | | | | At | Signature | + +-------+ + + + | BLOOD | 85 | 60 - 99 mg/dL | [facility] [...] [facility] | [address] | [place], [place] | | | [facility] | [address] | [address] | | | TESTS | | | | + + + + + CAPILLARY BLOOD GLUCOSE (NO CHG), POC (09/18/2012 7:29 AM PST) + +---------+ + + + | Component | Value | Ref Range | Performed | Pathologist | | | | | At | Signature | + +---------+ + + + | BLOOD | 119 (H) | 60 - 99 mg/dL | [...] [facility] | [address] | [place], [place] | | | [facility] | [address] | [address] | | | TESTS | | | | + + + + + CAPILLARY BLOOD GLUCOSE (NO CHG), POC (09/17/2012 8:51 PM PST) + +-------+ + + + | Component | Value | Ref Range | Performed | Pathologist | | | | | At | Signature | + +-------+ + + + | BLOOD | 80 | 60 - 99 mg/dL [...] + | [facility] | [address] | [place], [place] | | | [facility] | [address] | [address] | | | TESTS | | | | + + + + + CULTURE, WOUND ABSCESS OR ASPIRATE W/ ANAEROBE (09/17/2012 7:28 PM PST) + + + + + + | Component | Value | Ref Range | Performed | Pathologist | | | | | At | Signature | + + + + + + | CULTURE | C Abscess/Asp, | | [facility] - | | | RESULT | [facility]: | | AIRPORT - | | | | Abdominal | | [place] | | | | Fin | | | | | | al GRAM STAIN:No | | | | | | squamous epithelial | | | | | | cells Many | | | | | | polymorphonuclear cells | | | | | | No organisms seen | | | | | | CULTURE RESULT:Rare | | | | | | Staphylococcus | | | | | | benlionelkikeis S. | | | | | | abnercelinaunensis is a | | | | | | coagulase-negative | | | | | | staphylococci that can | | | | | | cause invasive, | | | | | | suppurative and blood | | | | | | stream infections | | | | | | similar to those seen | | | | | | with S.aureus. | | | | | | ORGANISM:..............S | | | | | | taphylococcus | | | | | | lugdunensisCefazolin | | | | | | | | | | | | SClindamycin | | | | | | SErythromyci | | | | | | n | | | | | | SOxacillin | | | | | | STrimethop | | | | | | rim/Sulfa | | | | | | STetracycline | | | | | | | | | | | | RVancomycin | | | | | | S | | | | + + + + + + + + | Specimen | + + | Abscess - Abdominal | + + + + + + + | Performing | Address | City/State/Zipcode | Phone Number | | Organization | | | | + + + + + | [facility] - | [address] | [place] [address] | | | [place] | | | | + + + + + ABSCESS BODY DRAINAGE (09/17/2012 6:24 PM PST) + + + + + + | Component | Value | Ref Range | Performed | Pathologist | | | | | At | Signature | + + + + + + | ABSCESS | Procedure: US guided | | | | | BODY | abdominal wall drainage | | | | | DRAINAGE | Primary prepleater: | | | | | | Marc Lovelace DO | | | | | | Advertising Strategist attending | | | | | | prepleater: Ceasar | | | | | | Jose Antonio Perdomo MD. PhD. | | | | | | Preoperative diagnosis: | | | | | | post operative fluid | | | | | | collection Postoperative | | | | | | diagnosis: same | | | | | | Operations: Operation | | | | | | 1. US guided | | | | | | placement 18 gauge | | | | | | needle in | | | | | | abscesscollection | | | | | | Operation | | | | | | 2. Fluoroscopic | | | | | | guided placement of 10 | | | | | | Bangladeshi | | | | | | multipurposedrainage | | | | | | catheter in collection | | | | | | Operation | | | | | | 3. Aspiration of | | | | | | approximately 75 mL of | | | | | | cloudy fluid. | | | | | | Indications: 47 yr old | | | | | | male with suspected | | | | | | abdominal wall abscess | | | | | | adjacent tobiological | | | | | | mesh / hernia | | | | | | repair. Percutaneous | | | | | | drainage has | | | | | | beenrequested. | | | | | | Medications: 2 mg Versed | | | | | | IV, 100 mcg Fentanyl | | | | | | IV. Moderate | | | | | | sedationwas monitored by | | | | | | the Interventional | | | | | | Radiology nursing team. | | | | | | Contrast: None | | | | | | Complications: None | | | | | | immediate. Fluoroscopy | | | | | | time: 1 min and 30 sec | | | | | | Procedure: The attending | | | | | | physician was present | | | | | | for the entire | | | | | | procedure. | | | | | | Writteninformed consent | | | | | | was obtained in a PARQ | | | | | | conference with the | | | | | | patient. The patient | | | | | | was prepped and draped | | | | | | in the usual manner. | | | | | | Using localanesthetic | | | | | | and US guidance an 18 G | | | | | | needle was advanced into | | | | | | the fluidcollection | | | | | | from a right lateral | | | | | | approach. Cloudy, | | | | | | serosanguineousfluid was | | | | | | aspirated and sent for | | | | | | culture and sensitivity. | | | | | | Serialdilatation was | | | | | | performed over a guide | | | | | | wire and a 10 | | | | | | Frenchmultipurpose | | | | | | drainage catheter was | | | | | | advanced into the | | | | | | collection | | | | | | usingfluoroscopic | | | | | | guidance. The | | | | | | catheter was aspirated | | | | | | and placed togravity | | | | | | drainage. The catheter | | | | | | was sutured in | | | | | | place. A | | | | | | completiondigital image | | | | | | was obtained. Findings: | | | | | | There is a fluid | | | | | | collection in the | | | | | | anterior abdominal | | | | | | wall. A totalof 75 | | | | | | mL of fluid was | | | | | | aspirated. The fluid was | | | | | | cloudy | | | | | | andserosanguineous in | | | | | | color. A 10 Bangladeshi | | | | | | drainage catheter | | | | | | waspositioned in the | | | | | | collection. Impression: | | | | | | 1. Fluid collection in | | | | | | the anterior abdominal | | | | | | wall, cultures pending. | | | | | | 2. 10 Bangladeshi | | | | | | multipurpose drainage | | | | | | catheter placed in same. | | | | | | Attending Radiologists: | | | | | | Jose Antonio Mcdonough, | | | | | | AdelaidaAuthor: Jose Antonio | | | | | | Adelaida Mcdonough I have | | | | | | personally viewed this | | | | | | procedure/exam, reviewed | | | | | | this report,and made | | | | | | changes to it where | | | | | | appropriate. | | | | | | Final/Electronically | | | | | | signed / Jose Antonio | | | | | | Ceasar 09/17/2012 19:37 | | | | | | PM [...] | + +---------+ + + CAPILLARY BLOOD GLUCOSE (NO CHG), POC (09/17/2012 6:05 PM PST) + +-------+ + + + | Component | Value | Ref Range | Performed | Pathologist | | | | | At | Signature | + +-------+ + + + | BLOOD | 86 | 60 - 99 mg/dL | [facility] [...] [facility] | [address] | [place], [place] | | | [facility] | [address] | [address] | | | TESTS | | | | + + + + + CAPILLARY BLOOD GLUCOSE (NO CHG), POC (09/17/2012 12:44 PM PST) + +---------+ + + + | Component | Value | Ref Range | Performed | Pathologist | | | | | At | Signature | + +---------+ + + + | BLOOD | 102 (H) | 60 - 99 mg/dL | [...] [facility] | [address] | [place], [place] | | | [facility] | [address] | [address] | | | TESTS | | | | + + + + + CAPILLARY BLOOD GLUCOSE (NO CHG), POC (09/17/2012 6:15 AM PST) + +---------+ + + + | Component | Value | Ref Range | Performed | Pathologist | | | | | At | Signature | + +---------+ + + + | BLOOD | 122 (H) | 60 - 99 mg/dL | [facility] | | | GLUCOSE, | | [...] [facility] | [address] | [place], [place] | | | [facility] | [address] | [address] | | | TESTS | | | | + + + + + CAPILLARY BLOOD GLUCOSE (NO CHG), POC (09/16/2012 11:49 PM PST) + +---------+ + + + | Component | Value | Ref Range | Performed | Pathologist | | | | | At | Signature | + +---------+ + + + | BLOOD | 103 (H) | 60 - 99 mg/dL | [...] [facility] | [address] | [place], [place] | | | [facility] | [address] | [address] | | | TESTS | | | | + + + + + CBC AND AUTO DIFF (09/16/2012 11:16 PM PST) + + + + + + | Component | Value | Ref Range | Performed | Pathologist | | | | | At | Signature | + + + + + + | WBC COUNT | 11.0 | 4.4 - 11.0 K/cu | [facility] | | | | | mm | LABORATORY | | | | | | SERVICES, | | | | | | CORE | | + + + + + + | RED CELL | 3.75 (L) | 4.50 - 5.90 | [facility] | | | COUNT | | M/cu mm | LABORATORY | | | | | | SERVICES, | | | | | | CORE | | + + + + + + | HEMOGLOBIN | 11.3 (L) | 13.5 - 17.5 | [facility] | | | | | g/dL | LABORATORY | | | | | | SERVICES, | | | | | | CORE | | + + + + + + | HEMATOCRIT | 34.0 (L) | 41.0 - 53.0 % | [facility] | | | | | | LABORATORY | | | | | | SERVICES, | | | | | | CORE | | + + + + + + | MCV | 90.7 | 80.0 - 96.0 fL | [facility] | | | | | | LABORATORY | | | | | | SERVICES, | | | | | | CORE | | + + + + + + | MCHC | 33.3 (L) | 33.4 - 35.5 | [facility] | | | | | g/dL | LABORATORY | | | | | | SERVICES, | | | | | | CORE | | + + + + + + | RDW | 14.6 | 11.5 - 15.0 % | [facility] | | | | | | LABORATORY | | | | | | SERVICES, | | | | | | CORE | | + + + + + + | PLATELET | 204 | 150 - 400 K/cu | [facility] | | | COUNT | | mm | LABORATORY | | | | | | SERVICES, | | | | | | CORE | | + + + + + + | NEUTROPHIL | 71 (H) | 50 - 70 % | [facility] | | | % | | | LABORATORY | | | | | | SERVICES, | | | | | | CORE | | + + + + + + | LYMPHOCYTE | 15 (L) | 18 - 42 % | [facility] | | | % | | | LABORATORY | | | [...] + + + | EOS % | 6 (H) | 1 - 3 % | [facility] | | | | | | LABORATORY | | | | | | SERVICES, | | | | | | CORE | | + + + + + + | BASO % | 1 | 0 - 2 % | [facility] | | | | | | LABORATORY | | | | | | SERVICES, | | | | | | CORE | | + + + + + + | NEUTROPHIL | 7.9 (H) | 1.8 - 7.7 K/cu | [facility] | | | # | | mm | LABORATORY | | | | | | SERVICES, | | | | | | CORE | | + + + + + + | LYMPHOCYTE | 1.6 | 1.0 - 4.8 K/cu | [facility] | | | # | | mm | LABORATORY | | | | | | SERVICES, | | | | | | CORE | | + + + + + + | MONOCYTE # | 0.8 | 0.0 - 0.8 K/cu | [facility] | | | | | mm | LABORATORY | | | | | | SERVICES, | | | | | | CORE | | + + + + + + | EOS # | 0.6 (H) | 0.0 - 0.5 K/cu | [facility] | | | | | mm | LABORATORY | | | | | | SERVICES, | | | | | | CORE | | + + + + + + | BASO # | 0.1 | 0.0 - 0.1 K/cu | [facility] | | | | [...] | + + + + + | [facility] | [address] | [place] [address] | | | SERVICES, CORE | [address] | | | + + + + + INR (09/16/2012 11:16 PM PST) + +-------+ + + + | Component | Value | Ref Range | Performed | Pathologist | | | | | At | Signature | + +-------+ + + + | INR | 0.94 | 0.90 - 1.20 INR | [facility] | | | | | | LABORATORY | | | | | | SERVICES, | | | | | | CORE | | + +-------+ + + + + + | Specimen | + + | Blood - Blood | + + + + + | Narrative | Performed At | + + + | INR Therapeutic ranges for full anticoagulation: INR for | [facility] | | Venous Thromboembolism (2.0 - 3.0) INR INR | LABORATORY | | for most patients with mech. valves (2.5 - 3.5) INR | SERVICES, CORE | + + + + + + + + | Performing | Address | City/State/Zipcode | Phone Number | | Organization | | | | + + + + + | [facility] | [address] | [place] [address] | | | SERVICES, CORE | [address] | | | + + + + + COMPLETE METABOLIC SET (NA,K,CL,CO2,BUN,CREAT,GLUC,CA,AST,ALT,BILI TOTAL,ALK PHOS,ALB,PROT TOTAL) (09/16/2012 11:16 PM PST) + + + + + + | Component | Value | Ref Range | Performed | Pathologist | | | | | At | Signature | + + + + + + | GLUCOSE, | 77 | 60 - 99 mg/dL | [facility] | | | PLASMA | | | LABORATORY | | | (LAB) | | | SERVICES, | | | | | | CORE | | + + + + + + | BUN, PLASMA | 9 | 6 - 20 mg/dL | [facility] | | | (LAB) | | | LABORATORY | | | | | | SERVICES, | | | | | | CORE | | + + + + + + | CREATININE | 0.66 (L) | 0.70 - 1.30 | [facility] | | | PLASMA | | mg/dL | LABORATORY | | | (LAB) | | | SERVICES, | | | | | | CORE | | + + + + + + | SODIUM, | 140 | 136 - 145 | [facility] | | | PLASMA | | mmol/L | LABORATORY | | | (LAB) | | | SERVICES, | | | | | | CORE | | + + + + + + | POTASSIUM, | 4.3 | 3.4 - 5.0 | [facility] | | | PLASMA | | mmol/L | LABORATORY | | | (LAB) | | | SERVICES, | | | | | | CORE | | + + + + + + | CHLORIDE, | 106 | 97 - 108 mmol/L | [facility] [...] + + + + | CALCIUM, | 8.5 (L) | 8.6 - 10.2 | [facility] | | | PLASMA | | mg/dL | LABORATORY | | | (LAB) | | | SERVICES, | | | | | | CORE | | + + + + + + | BILIRUBIN | 0.3 | 0.3 - 1.2 mg/dL | [facility] | | | TOTAL | | | LABORATORY | | | | | | SERVICES, | | | | | | CORE | | + + + + + + | TOTAL | 7.2 | 6.1 - 7.9 g/dL | [facility] | | | PROTEIN, | | | LABORATORY | | | PLASMA | | | SERVICES, | | | (LAB) | | | CORE | | + + + + + + | ALBUMIN, | 3.3 (L) | 3.5 - 4.7 g/dL | [facility] [...] + + + + | AST(SGOT) | 22 | 15 - 41 U/L | [facility] | | | | | | LABORATORY | | | | | | SERVICES, | | | | | | CORE | | + + + + + + | ALT (SGPT) | 22 | 12 - 60 U/L | [facility] | | | | | | LABORATORY | | | | | | SERVICES, | | | | | | CORE | | + + + + + + | ANION | 10 | 4 - 11 mmol/L | [facility] | | | GAP(ALB | | | LABORATORY | | | CORRECTED) | | | SERVICES, | | | | | | CORE | | + + + + + + | POTASSIUM | Sl Hemo | | [facility] | | | CMNT | | | LABORATORY | | | | | | SERVICES, | | | | | | CORE | | + + + + + + | AST CMNT | Sl Hemo | | [facility] | | | | [...] Performed At | + + + | Sample hemolyzed. Results for K, Total Bili, Direct Bili, AST, | [facility] | | LDH, or HDL may be inaccurate. Refer to comment under test result. | LABORATORY | | | SERVICES, CORE | + + + + + + + + | Performing | Address | City/State/Zipcode | Phone Number | | Organization | | | | + + + + + | [facility] | [address] | [place] [address] | | | SERVICES, JUAN | [address] | | | + + + + + documented in this encounter Visit Diagnoses + + | Diagnosis | + + | S/P hernia repair - Primary Other postprocedural status | + + documented in this encounter Administered Medications + +--------+ +---------+------+------+ | Medication Order | MAR | Action | Dose | Rate | Site | | | Action | Date | | | | + +--------+ +---------+------+------+ | albuterol (loli PROVENIJEOMA, | Given | 09/17/19 | 4 puffs | | | | VENTOLIN) 90 mcg/actuation | | 13 12:54 | | | | | inhaler 2-4 Puff 2-4 puff, | | AM PST | | | | | inhalation, EVERY 4 HOURS | | | | | | | NEEDED, Starting 09/17/12 at | | | | | | | 0053, Until 09/18/12 at 2247, | | | | | | | dyspnea/SOB | | | | | | + +--------+ +---------+------+------+ + +---+ | | | + +---+ | albuterol (aka PROVENTIL, | | | VENTOLIN) 90 mcg/actuation | | | inhaler 1 dose, Starting Fri | | | 09/17/12 at 0031, Until Fri | | | 09/17/12 at 0054 | | + +---+ | | | + +---+ + +-------+ +-------+---+---+ | aspirin chewable tablet 81 mg | Given | 09/18/19 | 81 mg | | | | 81 mg, oral, DAILY, First dose on | | 13 8:20 | | | | | 09/17/12 at 0900, Until | | AM PST | | | | | Discontinued | | | | | | + +-------+ +-------+---+---+ +-------+ +-------+---+---+ | Given | 09/17/19 | 81 mg | | | | | 13 9:26 | | | | | | AM PST | | | | +-------+ +-------+---+---+ +---+---+ | | | +---+---+ + +-------+ +--------+---+---+ | carBAMazepine (aka TEGRETOL) | Given | 09/18/19 | 200 mg | | | | tablet 200 mg 200 mg, oral, | | 13 8:21 | | | | | TWICE DAILY, First dose on Fri | | AM PST | | | | | 09/17/12 at 0900, Until | | | | | | | Discontinued | | | | | | + +-------+ +--------+---+---+ +-------+ +--------+---+---+ | Given | 09/17/19 | 200 mg | | | | | 13 9:55 | | | | | | PM PST | | | | +-------+ +--------+---+---+ | Given | 09/17/19 | 200 mg | | | | | 13 9:25 | | | | | | AM PST | | | | +-------+ +--------+---+---+ +---+---+ | | | +---+---+ + +-------+ +--------+---+---+ | ciprofloxacin (aka CIPRO) | Given | 09/18/19 | 500 mg | | | | tablet 500 mg 500 mg, oral, | | 13 8:20 | | | | | TWICE DAILY, First dose on Fri | | AM PST | | | | | 09/17/12 at 0930, Until | | | | | | | Discontinued | | | | | | + +-------+ +--------+---+---+ +-------+ +--------+---+---+ | Given | 09/17/19 | 500 mg | | | | | 13 9:56 | | | | | | PM PST | | | | +-------+ +--------+---+---+ | Given | 09/17/19 | 500 mg | | | | | 13 9:25 | | | | | | AM PST | | | | +-------+ +--------+---+---+ +---+---+ | | | +---+---+ + +---------+ +--------+--------+---+ | fentaNYL citrate (PF) (aka | New Bag | 09/17/19 | 50 mcg | mL/hr | | | SUBLIMAZE) injection 25-100 mcg | | 13 7:10 | | | | | 25-100 mcg, intravenous, | | PM PST | | | | | INTRAPROCEDURE PRN, Starting Fri | | | | | | | 09/17/12 at 191, Until Fri | | | | | | | 09/17/12 at 1940, sedation | | | | | | + +---------+ +--------+--------+---+ +---+---+ | | | +---+---+ + +-------+ +--------+---+---+ | fluticasone-salmeterol (aka | Given | 09/18/19 | 1 puff | | | | ADVAIR) 250-50 mcg/dose inhaler 1 | | 13 8:26 | | | | | Puff 1 puff, inhalation, TWICE | | AM PST | | | | | DAILY, First dose on Thu09/17/12 | | | | | | | at 0900, Until Discontinued | | | | | | + +-------+ +--------+---+---+ +-------+ +--------+---+---+ | Given | 09/17/19 | 1 puff | | | | | 13 9:59 | | | | | | PM PST | | | | +-------+ +--------+---+---+ | Given | 09/17/19 | 1 puff | | | | | 13 9:22 | | | | | | AM PST | | | | +-------+ +--------+---+---+ +---+---+ | | | +---+---+ + +-------+ +--------+---+---+ | gabapentin (loli GANNON) | Given | 09/18/19 | 800 mg | | | | tablet 800 mg 800 mg, oral, | | 13 4:10 | | | | | THREE TIMES DAILY, First dose on | | PM PST | | | | | 09/17/12 at 0900, Until | | | | | | | Discontinued | | | | | | + +-------+ +--------+---+---+ +-------+ +--------+---+---+ | Given | 09/18/19 | 800 mg | | | | | 13 8:21 | | | | | | AM PST | | | | +-------+ +--------+---+---+ | Given | 09/17/19 | 800 mg | | | | | 13 10:01 | | | | | | PM PST | | | | +-------+ +--------+---+---+ +---+---+ | | | +---+---+ + +---------+ +--------+--------+---+ | HYDROmorphone (aka DILAUDID) | New Bag | 09/17/19 | 0.4 mg | mL/hr | | | injection 0.2-0.4 mg 0.2-0.4 mg, | | 13 3:02 | | | | | intravenous, EVERY 2 HOURS | | PM PST | | | | | NEEDED, Starting Lindsay 09/16/12 at | | | | | | | 2253, Until 09/17/12 at 1615, | | | | | | | mild pain, moderate pain | | | | | | + +---------+ +--------+--------+---+ +---------+ +--------+--------+---+ | New Bag | 09/17/19 | 0.4 mg | mL/hr | | | | 13 3:10 | | | | | | AM PST | | | | +---------+ +--------+--------+---+ | New Bag | 09/16/19 | 0.4 mg | mL/hr | | | | 13 11:16 | | | | | | PM PST | | | | +---------+ +--------+--------+---+ +---+---+ | | | +---+---+ + +---------+ +--------+--------+---+ | HYDROmorphone (aka DILAUDID) | New Bag | 09/17/19 | 0.4 mg | mL/hr | | | injection 0.2-0.6 mg 0.2-0.6 mg, | | 13 6:08 | | | | | intravenous, EVERY 2 HOURS | | PM PST | | | | | NEEDED, Starting 09/17/12 at | | | | | | | 1615, Until 09/18/12 at 2247, | | | | | | | mild pain, moderate pain | | | | | | + +---------+ +--------+--------+---+ +---------+ +--------+--------+---+ | New Bag | 09/17/19 | 0.2 mg | mL/hr | | | | 13 4:25 | | | | | | PM PST | | | | +---------+ +--------+--------+---+ +---+---+ | | | +---+---+ + +---------+ +-------+-------+---+ | lactated ringers IV 100 mL/hr, | New Bag | 09/18/19 | 100 | 100 | | | intravenous, CONTINUOUS, | | 13 2:18 | mL/hr | mL/hr | | | Starting Lindsay 09/16/12 at 2315, | | AM PST | | | | | Until 09/18/12 at 0907 | | | | | | + +---------+ +-------+-------+---+ + + +-------+-------+---+ | New Bag | 09/17/19 | 100 | 100 | | | | 13 4:47 | mL/hr | mL/hr | | | | PM PST | | | | + + +-------+-------+---+ | Restarted | 09/17/19 | 100 | 100 | | | | 13 1:00 | mL/hr | mL/hr | | | | PM PST | | | | + + +-------+-------+---+ +---+---+ | | | +---+---+ + +-------+ +--------+---+---+ | levothyroxine tablet 25 mcg 25 | Given | 09/18/19 | 25 mcg | | | | mcg, oral, BEFORE BREAKFAST, | | 13 8:20 | | | | | First dose on Thu09/17/12 at | | AM PST | | | | | 0700, Until Discontinued | | | | | | + +-------+ +--------+---+---+ +-------+ +--------+---+---+ | Given | 09/17/19 | 25 mcg | | | | | 13 9:25 | | | | | | AM PST | | | | +-------+ +--------+---+---+ +---+---+ | | | +---+---+ + +-------+ +------+---+---+ | LORazepam (aka ATIVAN) tablet 1 | Given | 09/16/19 | 1 mg | | | | mg 1 mg, oral, EVERY 4 HOURS | | 13 11:48 | | | | | NEEDED, Starting Lindsay 09/16/12 at | | PM PST | | | | | 2240, Until 09/18/12 at 2247, | | | | | | | anxiety, insomnia, agitation | | | | | | + +-------+ +------+---+---+ +---+---+ | | | +---+---+ + +-------+ +--------+---+---+ | metroNIDAZOLE (aka FLAGYL) | Given | 09/18/19 | 500 mg | | | | tablet 500 mg 500 mg, oral, | | 13 4:10 | | | | | THREE TIMES DAILY, First dose on | | PM PST | | | | | 09/17/12 at 0930, Until | | | | | | | Discontinued | | | | | | + +-------+ +--------+---+---+ +-------+ +--------+---+---+ | Given | 09/18/19 | 500 mg | | | | | 13 8:21 | | | | | | AM PST | | | | +-------+ +--------+---+---+ | Given | 09/17/19 | 500 mg | | | | | 13 9:56 | | | | | | PM PST | | | | +-------+ +--------+---+---+ +---+---+ | | | +---+---+ + +---------+ +------+--------+---+ | midazolam (aka VERSED) | New Bag | 09/17/19 | 1 mg | mL/hr | | | injection 0.25-2 mg 0.25-2 mg, | | 13 7:10 | | | | | intravenous, INTRAPROCEDURE PRN, | | PM PST | | | | | Starting Thu09/17/12 at 1912, | | | | | | | Until Thu09/17/12 at 1941, | | | | | | | sedation | | | | | | + +---------+ +------+--------+---+ +---+---+ | | | +---+---+ + +-------+ +-------+---+---+ | omeprazole (aka PRILOSEC) | Given | 09/18/19 | 20 mg | | | | capsule 20 mg 20 mg, oral, | | 13 8:20 | | | | | DAILY, First dose on Thu09/17/12 | | AM PST | | | | | at 0900, Until Discontinued | | | | | | + +-------+ +-------+---+---+ +-------+ +-------+---+---+ | Given | 09/17/19 | 20 mg | | | | | 13 9:25 | | | | | | AM PST | | | | +-------+ +-------+---+---+ +---+---+ | | | +---+---+ + +---------+ +------+--------+---+ | ondansetron (aka ZOFRAN) | New Bag | 09/17/19 | 4 mg | mL/hr | | | injection 4 mg 4 mg, | | 13 8:46 | | | | | intravenous, EVERY 12 HOURS | | AM PST | | | | | NEEDED, Starting Thu09/17/12 at | | | | | | | 0840, Until 09/18/12 at 2247, | | | | | | | nausea/vomiting | | | | | | + +---------+ +------+--------+---+ +---+---+ | | | +---+---+ + +-------+ +------+---+---+ | ondansetron ODT (aka ZOFRAN | Given | 09/17/19 | 8 mg | | | | ODT) tablet 4-8 mg 4-8 mg, oral, | | 13 8:46 | | | | | EVERY 8 HOURS NEEDED, | | AM PST | | | | | Starting Thu09/17/12 at 0839, | | | | | | | Until 09/18/12 at 2247, | | | | | | | nausea/vomiting | | | | | | + +-------+ +------+---+---+ +---+---+ | | | +---+---+ + +-------+ +------+---+---+ | oxyCODONE (immediate release) | Given | 09/18/19 | 5 mg | | | | (aka ROXICODONE) tablet 5-10 mg | | 13 3:56 | | | | | 5-10 mg, oral, EVERY 4 HOURS | | AM PST | | | | | NEEDED, Starting Lindsay 09/16/12 at | | | | | | | 2246, Until 09/18/12 at 2247, | | | | | | | severe pain | | | | | | + +-------+ +------+---+---+ +-------+ +------+---+---+ | Given | 09/17/19 | 5 mg | | | | | 13 6:08 | | | | | | PM PST | | | | +-------+ +------+---+---+ | Given | 09/17/19 | 5 mg | | | | | 13 4:06 | | | | | | PM PST | | | | +-------+ +------+---+---+ +---+---+ | | | +---+---+ + +-------+ +------+---+---+ | prazosin (aka MINIPRESS) | Given | 09/18/19 | 2 mg | | | | capsule 2 mg 2 mg, oral, TWICE | | 13 8:21 | | | | | DAILY, First dose on Thu09/17/12 | | AM PST | | | | | at 0900, Until Discontinued | | | | | | + +-------+ +------+---+---+ +-------+ +------+---+---+ | Given | 09/17/19 | 2 mg | | | | | 13 9:55 | | | | | | PM PST | | | | +-------+ +------+---+---+ | Given | 09/17/19 | 2 mg | | | | | 13 9:25 | | | | | | AM PST | | | | +-------+ +------+---+---+ +---+---+ | | | +---+---+ + +-------+ +-------+---+---+ | promethazine (aka PHENERGAN) | Given | 09/18/19 | 25 mg | | | | tablet 25 mg 25 mg, oral, FOUR | | 13 4:10 | | | | | TIMES DAILY NEEDED, Starting | | PM PST | | | | | Lindsay 09/16/12 at 2231, Until Sat | | | | | | | 09/18/12 at 2247, nausea/vomiting | | | | | | + +-------+ +-------+---+---+ +---+---+ | | | +---+---+ + +-------+ +--------+---+---+ | risperiDONE (aka RISPERDAL) | Given | 09/18/19 | 0.5 mg | | | | tablet 0.5 mg 0.5 mg, oral, | | 13 8:21 | | | | | TWICE DAILY, First dose on Fri | | AM PST | | | | | 09/17/12 at 0900, Until | | | | | | | Discontinued | | | | | | + +-------+ +--------+---+---+ +-------+ +--------+---+---+ | Given | 09/17/19 | 0.5 mg | | | | | 13 9:56 | | | | | | PM PST | | | | +-------+ +--------+---+---+ | Given | 09/17/19 | 0.5 mg | | | | | 13 9:26 | | | | | | AM PST | | | | +-------+ +--------+---+---+ +---+---+ | | | +---+---+ + +-------+ +--------+---+---+ | tiotropium (aka SPIRIVA) | Given | 09/18/19 | 18 mcg | | | | inhalation 18 mcg 18 mcg, | | 13 8:20 | | | | | inhalation, DAILY, First dose on | | AM PST | | | | | 09/17/12 at 0900, Until | | | | | | | Discontinued | | | | | | + +-------+ +--------+---+---+ +-------+ +--------+---+---+ | Given | 09/17/19 | 18 mcg | | | | | 13 9:23 | | | | | | AM PST | | | | +-------+ +--------+---+---+ +---+---+ | | | +---+---+ documented in this encounter
--- OUTSIDE RECORDS SUMMARY | ~2019-04-25 | XMS | Encounter Summary ---
Demographics + + + | Address | [address] | | | [place] [address] | + + + | Home Phone [...] [place] | | | | | [address] | | + + + + + Care Team Providers + +------+ + | Care Feed Research Technician Name | Role | Phone | + +------+ + | Kerri Chavarria NP | PCP | | + +------+ + Encounter Details +--------+ + + + + | Date | Type | Department | Care Team | Description | +--------+ + + + + | 02/01/ | Cable Tool Operator | Pulmonary & | Chaitanya Alvarado, | Asthma (Primary Dx) | | 2007 | | Critical Care | MD Hopper | | | | | Medicine at | [facility] | | | | | Physicians Chris | [address] | | | | | [address] | [place] [address] | | | | | Toya Spencer Mailcode: | [phone] | | | | | [id number] | | | | | | [address] | | | | | | [place], [place] | | | | | | [address] | | | | | | [phone] | | | +--------+ + + + [...] + + + + | 10/04/ | Diagnostic | Hand Box Coverer | MitchMarce | | | 2019 | Visit | | Eve [place] [address] | | | | | | [address] | | | | | | [place], [place] | | | | | | [address] | | +--------+ + + + + + + +--------+ + + | Name | Type | Priori | Associated Diagnoses | Order Schedule | | | | ty | | | + + +--------+ + + | SPIROMETRY BEFORE / | Procedures | Routin | Asthma | Ordered: 02/02/2008 | | AFTER BRONCHODIL, | | e | | | | PULM FUNCTION LAB | | | | | + + +--------+ + + | X-RAY CHEST 2 VIEW | Imaging | Routin | Asthma | Ordered: 02/02/2008 | | | | e | | | + + +--------+ + + documented as of this encounter Visit Diagnoses + + | Diagnosis | + + | Asthma - Primary Unspecified asthma | + + documented in this encounter"
--- OUTSIDE RECORDS SUMMARY | ~2019-04-25 | XMS | Encounter Summary ---
Demographics + + + | Address | [address] | | | [place] [address] | + + + | Home Phone [...] [place] | | | | | [address] | | + + + + + [...] | 2008 | | E The | [facility] | | | | Transcribed | [place] | [facility] [address] | | | | | [address] | [address] | | | | | | [place] [address] | | | | | | [phone] | | | | | | | [...] + + | 04/29/ | Diagnostic | Gun Sealing Machine Operator | Marce Meyer | | | 2019 | Visit | | Eve Brisen[place] [address] [facility] | | | | | | [address] | | | | | | [place], [place] | | | | | | [address] | | +--------+ + + + + [...] MD Shahram, Ashley - 08/10/2008 3:45 PM [facility] | | REPORT OF 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 Diagnostic laparoscopy.2. | | Reduction of incarcerated hernia.3. Repair of ventral hernia with composite Bard | | composite mesh.GRANTS AND CONTRACTS ASSISTANT: Sage Cam M.D.FINDINGS: The patient had a Faroese cheese | | defect of incarceration which [...] organs visualized. 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 | | The wounds were then cleaned [...] | 17:34:04DT: 08/10/2008 06:24:50Job #: | | [id number] | | | | | | Electronically | | Signed | | | | | | | | | | | | | | [address] KEVIN [id number] DATE: | |sites securing with 0 Vicryl [...] using 0 Vicryl suture stitch in a zfjcse-kw-ingnv | |fashion. The wounds were then cleaned [...] |TITUS/Viraj | | | | | | /[id number] | | | | | | Electronically [...] | | | | |EDGAR VIVAR | |[id number] | |[id number] | |ADMIT DATE: | + + documented in this encounter Visit Diagnoses Not on filedocumented in this encounter"
--- OUTSIDE RECORDS SUMMARY | ~2019-04-25 | XMS | Encounter Summary ---
Demographics + + + | Address | [address] | | | [place] [address] | + + + | Home Phone | | + + + | Preferred Language | Unknown | + + + | Marital Status | | + + + | Latter Day Affiliation | Unknown | + + + | Race | Unknown | + + + | Ethnic Group | Unknown | + + + Author + + + | Author | [facility] | | | and [place] | + + + | Organization | [facility] | | | and [...] Team Providers + +------+ + | Care Optical Instrument Inspector Name | Role | Phone | + +------+ + | Maurice Zelaya MD | PCP | | + +------+ + Encounter Details +--------+ + + + + | Date | Type | Department | Care Team | Description | +--------+ + + + + | 03/15/ | Orders Only | [facility] | Jaret Thompson MD 1100 | Seizure disorder | | 2019 | | NEUROLOGY 1100 | [facility] | ([facility]) (Primary Dx) | | | | [address] | [address], | | | | | [place], [place] | [place] [address] | | | | | [address] | [phone] | | | | | [phone] | | | +--------+ + + + [...] | | | | | | [place] [address] | | | | | | [phone] | | | | | | | | +--------+---------+ + + + | 07/13/ | Office | Pulmonology | Hua Garcia, | | | 2018 | Visit | | [address] | | | | | | [place] | | | | | | [address] | | | | | | | | +--------+---------+ + + + + +--------+ + + | Name | Priori | Associated Diagnoses | Order Schedule | | | ty | | | + +--------+ + + | [facility] | Routin | Seizure disorder [...]
--- OUTSIDE RECORDS SUMMARY | ~2019-04-25 | XMS | Encounter Summary ---
Demographics + + + | Address | [address] | | | [place] [address] | + + + | Home Phone | | + + + | Preferred Language | Unknown | + + + | Marital Status | Single | + + + | Anglican Affiliation | BAP | + + + [...] [place] | | | | | [address] | | + + + + + Care Team Providers + +------+ + | Care Pyrometer Operator Name | Role | Phone | [...] | 2014 | Event | [facility] | [address] | | | | | [address] | [facility] | | | | | Pavilion Ambulatory | [place], [place] | | | | | Surgery Admitting | [address] | | | | | Desk Located on the | [phone] | | | | | 4th floor, Room | | | | | | [address] [place], [place] | | | | | | [address] | | | +--------+ + + + [...] + + | 04/29/ | Diagnostic | Slab Installer | Marce Meyer | | | 2019 | Visit | | [place], [place] [address] | | | | | | [address] | | | | | | [place], [place] | | | | | | [address] | | +--------+ + + + + [...] mcg/kg/m | mL/hr | | | Starting [facility] 12/22/13 at 1607, | | PM PDT | in | | | | Until [facility] 12/22/13 at 1726 | | | [...]
--- OUTSIDE RECORDS SUMMARY | ~2019-04-25 | XMS | Encounter Summary ---
Demographics + + + | Address | [address] | | | [place] [address] | + + + | Home Phone [...] [place] | | | | | [address] | | + + + + + Care Team Providers + +------+ + | Care Composing Machine Operator/Tender Name | Role | Phone | + [...] as of this encounter Progress Notes Interface, Electrical And Radio Mechanic In - 04/02/2006 6:18 AM PDTCLINIC DATE: [...] granulation. Aamir Chan M.D. TONY / MALORIE [id number] / [id number] / [id number] / [id number] signed by Interface, Electrical And Radio Mechanic In at 04/02/2006 6:18 AM PDTc umented in this encounter Plan of Treatment +--------+ + + + + | Date | Type | Specialty | Care Team | Description | +--------+ + + + + | 04/29/ | Diagnostic | Supervisor Model Making | Marce Meyer | | | 2019 | Visit | | Eve Briseno [address] [facility] | | | | | | [address] | | | | | | [place] | | | | | | [address] | | +--------+ + + + + documented as of this encounter Visit Diagnoses Not on filedocumented in this encounter"
--- OUTSIDE RECORDS SUMMARY | ~2019-04-25 | XMS | Encounter Summary ---
Demographics + + + | Address | [address] | | | [place] [address] | + + + | Home Phone [...] [place] | | | | | [address] | | + + + + + Care Team Providers + +------+ + | Care Bell Ringer Name | Role | Phone | + [...] Walker | | | | | | [place] [facility] | | | | | | [facility] [address] | | | | | | [address] [place], | | | | | | [place] [address] | | | | | | [phone] | | | | | | | [...] + + | 04/29/ | Diagnostic | Commercial Airplane Pilot | Marce Meyer | | | 2019 | Visit | | Eve Briseno [address] | | | | | | [address] | | | | | | [place], [place] | | | | | | [address] | | +--------+ + + + + documented as of this encounter Procedures + +--------+ + + + | Procedure Name | Priori | Date/Time | Associated Diagnosis | Comments | | | ty | | | | + +--------+ + + + | CHEST 2 VIEW [id number] | Routin | 09/22/2008 | | Results [...] in this encounter Results CHEST 2 VIEW [id number] (09/22/2008 10:24 AM PST) + + | [...] IMPRESSION: No acute | | | infiltrate. [id number] | | + + + + + [...] | IMPRESSION: No acute infiltrate. | | [id number] | + + + +---------+ + + [...] + + + | [facility] | [facility] [place] | [place] [address] | | | [facility] | Streets [...] + + + | BANDS % | MAGAZINE JOURNALIST | 0 - 7 % | [facility] | | | | | | A MEDICAL | | | | | | CENTER | | + + + + + + | CBC | ERROR FLAGS -HEMATOLOGY | | [facility] | | | COMMENTS | INSTR. MAGAZINE JOURNALIST | | A MEDICAL | | | | | | CENTER | | + + + + + + | CBC | DEFINITIVE FLAG MAGAZINE JOURNALIST | | [facility] | | | COMMENTS [...] | [facility] | [address] | [place] [address] | | | MEDICAL CENTER | Streets [...] MEDICAL | | | (LAB) | [address] | | CENTER | | + + [...] + + + + + | [facility] | | | | | LABORATORY | | | | + + + + + | [facility] | [facility] [place] | [place] [address] | | | [facility] | [facility] | | | + + + + + documented in this encounter Visit Diagnoses Not on filedocumented in this encounter"
--- OUTSIDE RECORDS SUMMARY | ~2019-04-25 | XMS | Encounter Summary ---
Demographics + + + | Address | [address] | | | [place] [address] | + + + | Home Phone [...] [place] | | | | | [address] | | + + + + + Care Team Providers + +------+ + | Care Plater Production Name | Role | Phone | + [...] | on | Cochlear Services | [facility] [address] | | | | | [address] | [address] | | | | | [place] Mailcode: | [place], [place] | | | | | [address] Physician's | [address] | | | | | [place], | | | | | | [place] [address] | | | | | | [phone] | | | +--------+ + + + [...] + | 04/29/ | Diagnostic | Aircraft Hydraulic Equipment Mechanic | Marce Meyer | | | 2019 | Visit | | Eve Briseno [address] | | | | | | [address] | | | | | | [place], [place] | | | | | | [address] | | +--------+ + + + + documented as of this encounter Visit Diagnoses Not on filedocumented in this encounter"
--- OUTSIDE RECORDS SUMMARY | ~2019-04-25 | XMS | Encounter Summary ---
Demographics + + + | Address | [address] | | | [place] [address] | + + + | Home Phone [...] [place] | | | | | [address] | | + + + + + Care Team Providers + +------+ + | Care Wool Grower Name | Role | Phone | + [...] | | General Services at | [facility] | | | | | PPV [address] [facility] | [place], [place] | | | | | [facility] | [address] | | | | | Mailcode: [address] | | | | | | [facility] | | | | | | [place], [place] | | | | | | [address] | | | | | | [phone] | | | +--------+ + + + [...] + + | 04/29/ | Diagnostic | Gas Meter Checker | Marce Meyer | | | 2019 | Visit | | Finn, Eve [address] | | | | | | [address] | | | | | | [place], [place] | | | | | | [address] | | +--------+ + + + + documented as of this encounter Visit Diagnoses Not on filedocumented in this encounter"
--- OUTSIDE RECORDS SUMMARY | ~2019-04-25 | XMS | Encounter Summary ---
Demographics + + + | Address | [address] | | | [place] [address] | + + + | Home Phone [...] [place] | | | | | [address] | | + + + + + Care Team Providers + +------+ + | Care Metalizing Machine Operator Name | Role | Phone [...] Services at | [address] [facility] | | | | | PPV [address] [facility] | [address] | | | | | [address] | [place] [address] | | | | | Mailcode: PV01 | [phone] | | | | | Physiciankary Perez | (Fax) | | | | | [place], [place] | | | | | | [address] | | | | | | [phone] | | | +--------+ + + + [...] + | 04/29/ | Diagnostic | Lead Systems Analyst | Marce Meyer | | | 2019 | Visit | | Eve Briseno [address] | | | | | | [address] | | | | | | [place] | | | | | | [address] | | +--------+ + + + + documented as of this encounter Visit Diagnoses Not on filedocumented in this encounter"
--- OUTSIDE RECORDS SUMMARY | ~2019-04-25 | XMS | Encounter Summary ---
Demographics + + + | Address | [address] | | | [place] [address] | + + + | Home Phone [...] [place] | | | | | [address] | | + + + + + Care Team Providers + +------+ + | Care Dovetail Machine Operator Name | Role | Phone [...] Recurrent | Ayana Jovel MD | s [address] | | | | | ventral | [address] | [address] | | | | | hernia | Ave | [place] | | | | | Procedures | [place], [place] | Mailcode: | | | | | CT ABDOMEN | [address] | [address] [facility] | | | | | AND PELVIS | Phone: | Hospital | | | | | WWO IV | [phone] | [place], [place] | | | | | CONTRAST IN | Fax: | [address] | | | | | CT ABD&PELV | [phone] | Phone: | | | | | 1+ | | [phone] | | | | | SECTION/REGN | | Fax: | | | | | S | | [phone] | +--------+--------+ + + + + Encounter Details +--------+ + + + + | Date | Type | Department | Care Team | Description | +--------+ + + + + | 04/30/ | Fashion Artist | Digestive Health | Ayana Butler W, | Recurrent ventral | | 2016 | | Center at [facility] [address] | MD [address] | hernia (Primary Dx) | | | | [address] | [facility] [place] | | | | | Mailcode: Center | [address] | | | | | for Health and | [phone] | | | | | Healing, Building [address] | | | | | | [place], [place] | | | | | | [address] | | | | | | [phone] | | | +--------+ + + + [...] + + | 04/29/ | Diagnostic | Conditioner Tender | Marce Meyer | | | 2019 | Visit | | Eve Briseno [address] | | | | | | [address] | | | | | | [place], [place] | | | | | | [address] | | +--------+ + + + + documented as of this encounter Visit Diagnoses + + | Diagnosis | + + | Recurrent ventral hernia - Primary Incisional hernia without mention of obstruction | | or gangrene | + + documented in this encounter"
--- OUTSIDE RECORDS SUMMARY | ~2019-04-25 | XMS | Encounter Summary ---
Demographics + + + | Address | [address] | | | [place] [address] | + + + | Home Phone [...] Author + + + | Author | [facility] | + + + | Organization | [facility] | + + + [...] [place] | | | | | [address] | | + + + + + Care Team Providers + +------+ + | Care Manager System Name | Role | Phone | + [...] 2008 | ibed | E The | [facility] | | | | | [place] | [facility] [address] | | | | | [address] | [address] | | | | | | [place] [address] | | | | | | [phone] | | | | | | | [...] + + | 04/29/ | Diagnostic | Trip Follower | Marce Meyer | | | 2019 | Visit | | Eve Briseno [address] [facility] | | | | | | [address] | | | | | | [place] | | | | | | [address] | | +--------+ + + + + documented as of this encounter Visit Diagnoses Not on filedocumented in this encounter"
--- OUTSIDE RECORDS SUMMARY | ~2019-04-25 | XMS | Encounter Summary ---
Demographics + + + | Address | [address] | | | [place] [address] | + + + | Home Phone [...] [place] | | | | | [address] | | + + + + + Care Team Providers + +------+ + | Care Card Cutter Helper Name | Role | Phone | [...] | | 2012 | | Center at [facility] [address] | MD [address] | Review (Medical | | | | [address] | [place], [place] | Record- ED 03-08-13) | | | | Mailcode: Center | [address] | | | | | for Health and | [phone] | | | | | [facility] [address] | | | | | | [place], [place] | | | | | | [address] | | | | | | [phone] | | | +--------+ + + + [...] as of this encounter Progress Notes Zonia Orellana MA - 03/11/2013 2:39 PM PDTMedical Record ED scanned [id number] signed by Zonia Orellana MA at 03/14/2013 5:31 AM PDTdocumented in this encounter Plan of Treatment +--------+ + + + + | Date | Type | Specialty | Care Team | Description | +--------+ + + + + | 04/29/ | Diagnostic | Bereavement Coordinator | Marce Meyer | | | 2019 | Visit | | Eve Briseno [address] | | | | | | [address] | | | | | | [place], [place] | | | | | | [address] | | +--------+ + + + + documented as of this encounter Visit Diagnoses Not on filedocumented in this encounter"
--- OUTSIDE RECORDS SUMMARY | ~2019-04-25 | XMS | Encounter Summary ---
Demographics + + + | Address | [address] | | | [place] [address] | + + + | Home Phone [...] [place] | | | | | [address] | | + + + + + Care Team Providers + +------+ + | Care Soap Chipper Name | Role | Phone | + [...] Visit | Medicine Clinic at | A, GLUE JOINTER FEEDER [address] | (Primary Dx); | | | | MPV Day | [address] | Hearing deficit | | | | Stay [address] | [place], [place] | | | | | [address] | [address] | | | | | Mailcode: [id number] | [phone] | | | | | Paola Perez | | | | | | [address] [place], [place] | | | | | | [address] | | | | | | [phone] | | | +--------+---------+ + + + [...] or walk. Surgery Check in Locations Admitting [facility], ninth floor [facility] Day Stay Unit - [facility], 4th floor Room 4514 [facility] Day Stay [facility], fourth floor I Surgery Unit [facility], sixth floor Surgery Check in Time: [...] it is after office hours, call the [facility] braille duplicating machine operator at [phone] and ask them to page him or h er. Preparing For Your Surgery Video -- 7 minutes of instructions! Access the [facility] website [email or web address] --> POPULAR RESOURCES --> Patient [...] week Pt buys case of beer with [employer] at start of month--drinks that and none for rest of m [facility] PHYSICAL EXAM: Last Vitals: BP 126/77 | Pulse 96 | Temp (Src) 36.9 C (98.4 F) (Oral) | RR 22 | Ht 1.84 8 m (6' 0.75") | Wt 117.028 kg (258 lb) | SpO2 94% | BMI 34.27 kg/(m^2) Body mass index is 3 4.27 kg/(m^2). PMC ROS Last edited 03/23/13 7525 by Cindy Marie NP ROS Pulmonary: Chronic [...] pressure and syncope CAD Cad Sx: past MS Last MS: > 1 year hypertension well controlled Vascular: [...] further investigation and manageme nt. A. Acute MS within 7 days: no B. Unstable angina/Recent MS (7- 30 days): no C. Decompensated CHF: [...] no Rate of cardiac , non fatal MS, non fatal cardiac arrest (RCRI) 0 risk factors - 0.4% 1 risk factors - 1%, 2 risk factors - 7%, 3 or >risk factors - 11% (may benefit from perioperative beta blockers) Risk Factor Recommendations: 1-2 risk factors- proceed with planned surgery with HR control or consider noninvasive testing if it will global climate change analyst Surgery Risk: Low Patient-related risk: Estimated ASA [...] to this patient's care. DONNA Hayden NP [facility] [address] [facility] [address] I spent 25 minutes with [...] + + | 04/29/ | Diagnostic | Anaesthetic Technician | Marce Meyer | | | 2019 | Visit | | Finn, Eve [address] | | | | | | [address] | | | | | | [place], [place] | | | | | | [address] | | +--------+ + + + + documented as of this encounter Visit Diagnoses + + | Diagnosis | + + | Preop examination - Primary Preoperative examination, unspecified | + + | Hearing deficit Problems with hearing | + + documented in this encounter
--- OUTSIDE RECORDS SUMMARY | ~2019-04-25 | XMS | Encounter Summary ---
Demographics + + + | Address | [address] | | | [place] [address] | + + + | Home Phone [...] [place] | | | | | [address] | | + + + + + Care Team Providers + +------+ + | Care Inspection And Testing Supervisor Name | Role | Phone | [...] 2004 | Registratio | [address] | [address] [place] [address] | | | | n | [address] Mailcode: [id number] | [address] | | | | | [place], [place] | [place] [address] | | | | | [address] | [phone] | | | | | [phone] | (Fax) | | +--------+ + + [...] + + | 04/29/ | Diagnostic | Wage Analyst | Marce Meyer | | | 2019 | Visit | | Eve Briseno [address] [facility] | | | | | | [address] | | | | | | [place], [place] | | | | | | [address] | | +--------+ + + + + documented as of this encounter Visit Diagnoses Not on filedocumented in this encounter"
--- OUTSIDE RECORDS SUMMARY | ~2019-04-25 | XMS | Encounter Summary ---
Demographics + + + | Address | [address] | | | [place] [address] | + + + | Home Phone [...] [place] | | | | | [address] | | + + + + + Care Team Providers + +------+ + | Care Biofuels Plant Superintendent Name | Role | Phone | [...] | | | 2012 | Event | [facility] | MDDMD [address] | | | | | Admitting Desk | [address] | | | | | Located on the 9 | [place], [place] | | | | | floor [address] [facility] | [address] | | | | | [address] | [phone] | | | | | [place], [place] | | | | | | [address] | | | +--------+ + + + [...] + + | 04/29/ | Diagnostic | Paper Final Inspector | Marce Meyer | | | 2019 | Visit | | Eve Briseno [address] [facility] | | | | | | [address] | | | | | | [place], [place] | | | | | | [address] | | +--------+ + + + + [...] PST | | | | | Until [facility] 08/19/12 at 1519 | iology | [...]
--- OUTSIDE RECORDS SUMMARY | ~2019-04-25 | XMS | Encounter Summary ---
Demographics + + + | Address | [address] | | | [place] [address] | + + + | Home Phone [...] [place] | | | | | [address] | | + + + + + Care Team Providers + +------+ + | Care Plant And Machinery Valuer Name | Role | Phone | + +------+ + | Jaison Chávez MD | PCP | | + +------+ + Encounter Details +--------+ + + + + | Date | Type | Department | Care Team | Description | +--------+ + + + + | 03/30/ | Anesthesia | 4N INTRA OP [address] | [place], | | | 2012 | Event | [address] | Marion Sousa CRNA | | | | | [facility] | | | | | | [facility] | | | | | | Surgery Admitting | | | | | | Desk Located on the | | | | | | 4th floor, Room | | | | | | [address] [facility] [place] | | | | | | [address] | | | +--------+ + + + [...] + + | 04/29/ | Diagnostic | Waste Water Or Water Plant Operator | Marce Meyer | | | 2019 | Visit | | Eve Briseno [address] | | | | | | [address] | | | | | | [place], [place] | | | | | | [address] | | +--------+ + + + + documented as of this encounter Visit Diagnoses Not on filedocumented in this encounter"
--- OUTSIDE RECORDS SUMMARY | ~2019-04-25 | XMS | Encounter Summary ---
Demographics + + + | Address | [address] | | | [place] [address] | + + + | Home Phone [...] [place] | | | | | [address] | | + + + + + Care Team Providers + +------+ + | Care Mushroom Cultivator Name | Role | Phone | + [...] Description | +--------+--------+ + + + | 08/26/ | Refill | Otolaryngology | Willie Plunkett, | Refill Request | | 2012 | | Otology Services at | | | | | | PPV [address] [facility] | | | | | | [address] | | | | | | Mailcode: [address] | | | | | | Priya Perez | | | | | | [place], [place] | | | | | | [address] | | | | | | [phone] | | | +--------+--------+ + + + [...] + + | 04/29/ | Diagnostic | Kier Hand | Marce Meyer | | | 2019 | Visit | | Eve Briseno [address] [facility] | | | | | | [address] | | | | | | [place] | | | | | | [address] | | +--------+ + + + + documented as of this encounter Visit Diagnoses Not on filedocumented in this encounter"
--- OUTSIDE RECORDS SUMMARY | ~2019-04-25 | XMS | Encounter Summary ---
Demographics + + + | Address | [address] | | | [place] [address] | + + + | Home Phone [...] [place] | | | | | [address] | | + + + + + Care Team Providers + +------+ + | Care Supervisor Speech Name | Role | Phone | + [...] | | | Willie Valente MD | [facility] [address] | | | | | [place] | [address] | | | | | marta | Ha[address] | [address] | | | | | Procedures | [address] | Mailcode: | | | | | [address] | [place], [place] | [address] [facility] | | | | | BENIGN | [address] | Hospital | | | | | DISEASE WO | | [facility] [place] | | | | | | | [address] | | | | | | | Phone: | | | | | | | [phone] | | | | | | | Fax: | | | | | | | [phone] | +--------+--------+ + + + + Diagnostic [...] | | | | CT [address] | [place], [place] | [address] [facility] | | | | | [place] | [address] | Hospital | | | | | DISEASE WO | | [place], [place] | | | | | | | [address] | | | | | | | Phone: | | | | | | | [phone] | | | | | | | Fax: | | | | | | | [phone] | +--------+--------+ + + + + Reason [...] | | | | CT [address] | [place], [place] | [address] [facility] | | | | | [place]IGN | [address] [facility] | | | | | DISEASE WO | | [place], [place] | | | | | | | [address] | | | | | | | Phone: | | | | | | | [phone] | | | | | | | Fax: | | | | | | | [phone] | +--------+--------+ + + + + Encounter Details +--------+ + + + + | Date | Type | Department | Care Team | Description | +--------+ + + + + | 03/23/ | Hospital | Diagnostic Imaging | | | | 2012 | Encounter | Services at [facility] | | | | | | [address] | | | | | | [place] Mailcode: | | | | | | [address] [facility] | | | | | | [place], [place] | | | | | | [address] | | | | | | [phone] | | | +--------+ + + + [...] + + | 04/29/ | Diagnostic | Electronic Semiconductor Processor | Marce Meyer | | | 2019 | Visit | | Finn, Eve [address] | | | | | | [address] | | | | | | [place] | | | | | | [address] | | +--------+ + + + + [...] | | + +---------+ + + | [facility] DEPARTMENT OF | | | | | RADIOLOGY | | | | + +---------+ + + documented in this encounter Visit Diagnoses + + | Diagnosis | + + | Cholesteatoma Cholesteatoma, unspecified | + + documented in this encounter"
--- OUTSIDE RECORDS SUMMARY | ~2019-04-25 | XMS | Encounter Summary ---
Demographics + + + | Address | [address] | | | [place] [address] | + + + | Home Phone [...] [place] | | | | | [address] | | + + + + + Care Team Providers + +------+ + | Care Basic Combatant Swimmer Name | Role | Phone | + +------+ + | Deidre Card Jaleesa | PCP | | + +------+ + Reason for Visit + + + | Reason | Comments | + + + | Hearing loss | HS8 Headset | + + + Encounter Details +--------+ + + + + | Date | Type | Department | Care Team | Description | +--------+ + + + + | 05/11/ | Documentati | Otolaryngology | Haroon Poe, | Hearing loss (HS8 | | 2007 | on | Cochlear Services | PhD | Headset) | | | | [address] | | | | | | [address] Mailcode: | | | | | | [address] Physician's | | | | | | [place], | | | | | | [place] [address] | | | | | | [phone] | | | +--------+ + + + [...] | 04/29/ | Diagnostic | Audio Visual Aids Director | Marce Meyer | | | 2019 | Visit | | Eve Briseno [address] | | | | | | [address] | | | | | | [place] | | | | | | [address] | | +--------+ + + + + documented as of this encounter Visit Diagnoses Not on filedocumented in this encounter"
--- OUTSIDE RECORDS SUMMARY | ~2019-04-25 | XMS | Encounter Summary ---
Demographics + + + | Address | [address] | | | [place] [address] | + + + | Home Phone [...] [place] | | | | | [address] | | + + + + + Care Team Providers + +------+ + | Care Practical Nurse Clinical Coordinator Name | Role | Phone | [...] [address] | | | | | | [place], [place] | | | | | | [address] | | | | | | [phone] | | | +--------+ + + + [...] + | 04/29/ | Diagnostic | Health And Safety Representative | Marce Meyer | | | 2019 | Visit | | Finn, Eve [address] | | | | | | [address] | | | | | | [place], [place] | | | | | | [address] | | +--------+ + + + + documented as of this encounter Visit Diagnoses Not on filedocumented in this encounter"
--- OUTSIDE RECORDS SUMMARY | ~2019-04-25 | XMS | Encounter Summary ---
Demographics + + + | Address | [address] | | | [place] [address] | + + + | Home Phone [...] [place] | | | | | [address] | | + + + + + Care Team Providers + +------+ + | Care Critical Care Nurse Name | Role | Phone | [...] + + | 09/16/ | Hospital | [facility] [address] | Ayana Butler, | | | 2012 - | Encounter | [address] | [address] | | | | | [place] | | | 09/18/ | | [address] | [address] | | | 2012 | | [phone] | [phone] | | | | | | | [...] Kennedy MD Chief Resident Department of Surgery [facility] documented in this en counter Medications at [...] Pinon MD Chief Resident Department of Surgery [facility] aFarzaneh rush DO - 09/17/2012 7:33 PM [...] abdominal wall soft tissue drain placement, 10 Egyptian MPD, extraper itoneal. 2. Aspirated samples were sent for laboratory analysis, gram stain and culture. 3. Drain placed to gravity bag; record output. 4. Transfer back to inpatient [facility] under the care of the ordering providers. Full operative report currently pending at this time, which will be located in EPIC "Chart Review" section under "Imaging." FARZANEH LOVELACE DO Fellow, Interventional Radiology [facility] Frantz Campos MD - 09/17/2012 12:28 PM PST [facility] Department of Surgery Blue Surgery Progress [...] FRANTZ MEYER MD General Surgery, R1 Diagnoses: [id number] S/P hernia repair Meds: albuterol (aka PROVENTIL, [...] + + | 04/29/ | Diagnostic | Graphic Designer | Marce Meyer | | | 2019 | Visit | | K, AuD [address] | | | | | | [address] | | | | | | [place], [place] | | | | | | [address] | | +--------+ + + + + [...] QIAN | [address] | [place], [place] | | | MARKELL BARKER OF CARE | [address] | [address] | | | TESTS | | | [...] LAUGHLIN | [address] | [place], [place] | | | MARKELL BARKER OF [place] | [address] | [address] | | | TESTS | | | [...] MARQUAM | [address] | [place], [place] | | | MARKELL BARKER OF [place] | [address] | [address] | | | TESTS | | | [...] LAUGHLIN | [address] | [place], [place] | | | MARKELL BARKER OF [facility] | [address] | [address] | | | TESTS | | | [...] | | | | Abdominal | | [place] | | | | Fin | | [...] | + + + + + | [facility] - | [address] | [place] [address] | | | [place] | | | | + + + [...] | | | | DRAINAGE | Primary deep tissue massage therapist: | | | | | | Marc Lovelace DO | | | | | | Software Implementation Project Manager attending | | | | | | deep tissue massage therapist: Ceasar | | | | | | [...] 10 | | | | | | Egyptian | | | | | | multipurposedrainage [...] | | | | color. A 10 Egyptian | | | | | | drainage catheter | | | | | | waspositioned in the | | | | | | collection. Impression: | | | | | | 1. Fluid collection in | | | | | | the anterior abdominal | | | | | | wall, cultures pending. | | | | | | 2. 10 Egyptian | | | | | | multipurpose [...] MARQUAM | [address] | [place], [place] | | | LUCERO POINT OF CARE | [address] | [address] | | | TESTS | | | [...] QIAN | [address] | [place], [place] | | | MARKELL BARKER OF CARE | [address] | [address] | | | TESTS | | | [...] LAUGHLIN | [address] | [place], [place] | | | MARKELL BARKER OF [place] | [address] | [address] | | | TESTS | | | [...] MARQUAM | [address] | [place], [place] | | | LUC[facility] POINT OF CARE | [address] | [address] | | | TESTS | | | [...] | + + + + + | [facility] | [address] | [place] [address] | | | SERVICES, CORE | [address] [...] [facility] | [address] | [place] [address] | | | SERVICES, CORE | PARK [...] AILYN GUPTA | [address] | [place] [address] | | | SERVICES, JUAN | [address] [...]
--- OUTSIDE RECORDS SUMMARY | ~2019-04-25 | XMS | Encounter Summary ---
Demographics + + + | Address | [address] | | | [place] [address] | + + + | Home Phone [...] [place] | | | | | [address] | | + + + + + Care Team Providers + +------+ + | Care Costume Draper Name | Role | Phone | + [...] [place] | | | | | | [address] | | | | | | [phone] | | | | | | | [...] + + | 04/29/ | Diagnostic | Boat Cleaner | Marce Meyer | | | 2019 | Visit | | Eve Briseno [address] [facility] | | | | | | [address] | | | | | | [place], [place] | | | | | | [address] | | +--------+ + + + + [...] + + + | BANDS % | MARINE HABITAT RESOURCE SPECIALIST | 0 - 7 % | [...] + + | [facility] | [address] | [place] [address] | | | MEDICAL CENTER | Streets [...] | + + + + + | [facility] | [address] | [place] [address] | | | [facility] | [facility] | | | + + + + + documented in this encounter Visit Diagnoses Not on filedocumented in this encounter"
--- OUTSIDE RECORDS SUMMARY | ~2019-04-25 | XMS | Encounter Summary ---
Demographics + + + | Address | [address] | | | [place] [address] | + + + | Home Phone [...] [place] | | | | | [address] | | + + + + + Care Team Providers + +------+ + | Care Data Reporting Analyst Name | Role | Phone | [...] | | 2011 | | Center at [facility] [address] | | Review | | | | [address] | | | | | | Mailcode: Center | | | | | | for Health and | | | | | | Healing, Building [address] | | | | | | [place], [place] | | | | | | [address] | | | | | | [phone] | | | +--------+ + + + [...] + | 04/29/ | Diagnostic | Customer Facilities Supervisor | Marce Meyer | | | 2019 | Visit | | Eve Briseno [address] [facility] | | | | | | [address] | | | | | | [place] | | | | | | [address] | | +--------+ + + + + documented as of this encounter Visit Diagnoses Not on filedocumented in this encounter"
--- OUTSIDE RECORDS SUMMARY | ~2019-04-25 | XMS | Encounter Summary ---
Demographics + + + | Address | [address] | | | [place] [address] | + + + | Home Phone [...] [place] | | | | | [address] | | + + + + + Care Team Providers + +------+ + | Care Shiftman Name | Role | Phone | + [...] | | | | GENERAL | | [address] | | | | | | | Phone: | | | | | | | [phone] | | | | | | | Fax: | | | | | | | [phone] | +--------+ + + + + + Encounter Details +--------+---------+ + + + | Date | Type | Department | Care Team | Description | +--------+---------+ + + + | 10/20/ | Office | Digestive Health | Ayana Butler, | Dysuria (Primary Dx) | | 2012 | Visit | Center at [facility] [address] | [address] | | | | | [address] | [place], [place] | | | | | Mailcode: Center | [address] | | | | | for Health and | [phone] | | | | | Healing, [address] | | | | | | [place], [place] | | | | | | [address] | | | | | | [phone] | | | +--------+---------+ + + + [...] Butler MD - 10/20/2012 2:50 PM PDT10/20/2012 [facility] Edgar Marquez presents 2 months status post [...] + + | 04/29/ | Diagnostic | Tafe Lecturer | Marce Meyer | | | 2019 | Visit | | Eve Briseno [address] [facility] | | | | | | [address] | | | | | | [place] | | | | | | [address] | | +--------+ + + + + [...] [facility] | [address] | [place] [address] | | | SERVICES, CORE | PARK [...] [facility] | [address] | [place] [address] | | | SERVICES, CORE | PARK [...] [facility] | [address] | [place] [address] | | | JUAN OSPINA | [address] | | | + + + + + documented in this encounter Visit Diagnoses + + | Diagnosis | + + | Dysuria - Primary | + + documented in this encounter"
--- OUTSIDE RECORDS SUMMARY | ~2019-04-25 | XMS | Encounter Summary ---
Demographics + + + | Address | [address] | | | [place] [address] | + + + | Home Phone [...] [place] | | | | | [address] | | + + + + + Care Team Providers + +------+ + | Care Entrepreneur Name | Role | Phone | + [...] + | 04/29/ | Diagnostic | Business System Manager | Marce Meyer | | | 2019 | Visit | | Eve Briseno [address] | | | | | | [address] | | | | | | [place], [place] | | | | | | [address] | | +--------+ + + + + [...] | | | | [facility]- | | [facility] [place] | | | | [address] | | | | | | [place], | | | | | | [place] [address]qc | | | | | | : ASHLEY HORTON MD | | | | + + + + + + + + | Specimen | + + | | + + + + + + + | Performing | Address | City/State/Zipcode | Phone Number | | Organization | | | | + + + + + | [facility] | [address] | [place] [address] | [phone] | | [facility] [place] | | | | + + + + + | [facility] | | | | | [facility] [place] | | | | + + + [...] + + + + | WBC, | ADMINISTRATIVE SERVICES MANAGER | X10 3/uL | [facility] | [...] + + + | BANDS % | ADMINISTRATIVE SERVICES MANAGER | 0 - 7 % | [...] + + + + | BASOPHIL%, | ADMINISTRATIVE SERVICES MANAGER | 0 - 1 % | [facility] | | | MANUAL | | | A MEDICAL | | | | | | CENTER | | + + + + + + | REACTIVE | ADMINISTRATIVE SERVICES MANAGER | 0.0 - 4.0 % | [facility] | | | LYMPHS % | | | A MEDICAL | | | | | | CENTER | | + + + + + + | BANDS % | ADMINISTRATIVE SERVICES MANAGER | 0 - 7 % | [facility] | | | | | | A MEDICAL | | | | | | CENTER | | + + + + + + | METAMYELOCY | ADMINISTRATIVE SERVICES MANAGER | 0 - 0 % | [facility] | | | BRANDON % | | | A MEDICAL | | | | | | CENTER | | + + + + + + | MYELOCYTES | ADMINISTRATIVE SERVICES MANAGER | 0 - 0 % | [facility] | | | % | | | A MEDICAL | | | | | | CENTER | | + + + + + + | PROMYELOCYT | ADMINISTRATIVE SERVICES MANAGER | 0 - 0 % | [facility] | | | ES % | | | A MEDICAL | | | | | | CENTER | | + + + + + + | BLASTS | ADMINISTRATIVE SERVICES MANAGER | 0 - 0 % | [...] + + + + | NUCLEATED | ADMINISTRATIVE SERVICES MANAGER | | [facility] | | | RBCS | | | A MEDICAL | | | | | | CENTER | | + + + + + + | GIANT PLT | ADMINISTRATIVE SERVICES MANAGER | | [facility] | | | [...] | + + + + + | [facility] | And | [place] [address] | | | [facility] | Streets | | | [...] [facility] | [address] | [place] [address] | | | [facility] | [place] | | | + + + + + documented in this encounter Visit Diagnoses Not on filedocumented in this encounter"
--- OUTSIDE RECORDS SUMMARY | ~2019-04-25 | XMS | Encounter Summary ---
Demographics + + + | Address | [address] | | | [place] [address] | + + + | Home Phone [...] [place] | | | | | [address] | | + + + + + Care Team Providers + +------+ + | Care Track Layer Head Name | Role | Phone | [...] | | | [address] Mailcode: | [place], [place] | | | | | [address] | [address] | | | | | [place], | | | | | | [place] [address] | | | | | | [phone] | | | +--------+ + + + [...] + + | 04/29/ | Diagnostic | Patient Safety Tech | Marce Meyer | | | 2019 | Visit | | Eve Briseno [address] | | | | | | [address] | | | | | | [place], [place] | | | | | | [address] | | +--------+ + + + + documented as of this encounter Visit Diagnoses Not on filedocumented in this encounter"
--- OUTSIDE RECORDS SUMMARY | ~2019-04-25 | XMS | Encounter Summary ---
Demographics + + + | Address | [address] | | | [place] [address] | + + + | Home Phone [...] [place] | | | | | [address] | | + + + + + Care Team Providers + +------+ + | Care Professor Of Early Childhood Education Name | Role | Phone | + [...] | | | [address] | [place], [place] | | | | | Mailcode: [address] | [address] | | | | | [facility] | | | | | | [place], [place] | | | | | | [address] | | | | | | [phone] | | | +--------+ + + + [...] + + | 04/29/ | Diagnostic | Casting Machine Adjuster | Marce Meyer | | | 2019 | Visit | | Eve Briseno [address] | | | | | | [address] | | | | | | [place], [place] | | | | | | [address] | | +--------+ + + + + documented as of this encounter Visit Diagnoses Not on filedocumented in this encounter"
--- OUTSIDE RECORDS SUMMARY | ~2019-04-25 | XMS | Encounter Summary ---
Demographics + + + | Address | [address] | | | [place] [address] | + + + | Home Phone [...] + + + + + | Margarito Owsuu | ECON | [address] | | | | | [place] | | | | | [address] | | + + + + + Care Team Providers + +------+ + | Care Supervisor Printing And Stamping Name | Role | Phone | + [...] as of this encounter Progress Notes Interface, Cement Tile Maker In - 02/03/2006 3:07 AM PDT October 19, 2002 Nam Arboleda MD [address] [place] [address] [address] [place] [address] RE:Edgar Marquez MR#:[id number] Arboleda: I [...] Department of Otolaryngology/Head and Neck Surgery Email: [email or web address] A 3: 07 AM PDTdocumented in this encounter Plan of Treatment +--------+ + + + + | Date | Type | Specialty | Care Team | Description | +--------+ + + + + | 04/29/ | Diagnostic | Screen Vent Binder | Marce Meyer | | | 2019 | Visit | | Eve Briseno [address] [facility] | | | | | | [address] | | | | | | [place] | | | | | | [address] | | +--------+ + + + + documented as of this encounter Visit Diagnoses Not on filedocumented in this encounter"
--- OUTSIDE RECORDS SUMMARY | ~2019-04-25 | XMS | Encounter Summary ---
Demographics + + + | Address | [address] | | | [place] [address] | + + + | Home Phone [...] Margarito Owusu | ECON | [address] | | | | | [place] | | | | | [address] | | + + + + + Care Team Providers + +------+ + | Care Fishing Tool Supervisor Name | Role | Phone | [...] + + | 04/29/ | Diagnostic | Unmanned Aircraft Systems Roboticist | Marce Meyer | | | 2019 | Visit | | Eve Briseno [address] | | | | | | [address] | | | | | | [place] | | | | | | [address] | | +--------+ + + + + documented as of this encounter Visit Diagnoses Not on filedocumented in this encounter"
--- OUTSIDE RECORDS SUMMARY | ~2019-04-25 | XMS | Encounter Summary ---
Demographics + + + | Address | [address] | | | [place] [address] | + + + | Home Phone [...] [place] | | | | | [address] | | + + + + + Care Team Providers + +------+ + | Care Beer Cooler Name | Role | Phone | + [...] Physician's | | | | | | [place], | | | | | | [place] [address] | | | | | | [phone] | | | +--------+ + + + [...] + | 04/29/ | Diagnostic | Pump Servicer Helper | Marce Meyer | | | 2019 | Visit | | Eve Briseno [address] [facility] | | | | | | [address] | | | | | | [place] | | | | | | [address] | | +--------+ + + + + documented as of this encounter Visit Diagnoses Not on filedocumented in this encounter"
--- OUTSIDE RECORDS SUMMARY | ~2019-04-25 | XMS | Encounter Summary ---
Demographics + + + | Address | [address] | | | [place] [address] | + + + | Home Phone [...] [place] | | | | | [address] | | + + + + + Care Team Providers + +------+ + | Care Welder Helper Name | Role | Phone | [...] Order) | | | | [address] | | | | | | Toya Spencer Mailcode: | | | | | | [address] Physician's | | | | | | [place], | | | | | | [place] [address] | | | | | | [phone] | | | +--------+ + + + [...] + + | 04/29/ | Diagnostic | Felt Hat Inspector And Packer | Marce Meyer | | | 2019 | Visit | | Eve Briseno [address] | | | | | | [address] | | | | | | [place] | | | | | | [address] | | +--------+ + + + + documented as of this encounter Visit Diagnoses Not on filedocumented in this encounter"
--- OUTSIDE RECORDS SUMMARY | ~2019-04-25 | XMS | Encounter Summary ---
Demographics + + + | Address | [address] | | | [place] [address] | + + + | Home Phone [...] [place] | | | | | [address] | | + + + + + Care Team Providers + +------+ + | Care Air Brake Tester Name | Role | Phone | [...] as of this encounter Progress Notes Interface, Document Review Specialist In - 04/10/2006 3:04 AM PDTCLINIC DATE: 08/25/2001 OTOLARYNGOLOGY CLINIC HISTORY OF PRESENT ILLNESS: Mr. Marquez is a 35-year-old gentleman who has long history of chronic suppurative otitis starting as a kid with persistent purulent discharge. He had a surgery in 1988 in [place] probably [address] Dr. Durán. Following that, he [...] other complaints. Aamir Chan M.D. TONY / MAOLRIE [id number] / [id number] / [id number] / [id number] signed by Interface, Document Review Specialist In at 04/10/2006 3:04 AM [facility] umented in this encounter Plan of Treatment +--------+ + + + + | Date | Type | Specialty | Care Team | Description | +--------+ + + + + | 04/29/ | Diagnostic | Loft Worker | Mitch, Marce | | | 2019 | Visit | | K, AuD [address] | | | | | | [address] | | | | | | [place] | | | | | | [address] | | +--------+ + + + + documented as of this encounter Visit Diagnoses Not on filedocumented in this encounter"
--- OUTSIDE RECORDS SUMMARY | ~2019-04-25 | XMS | Encounter Summary ---
Demographics + + + | Address | [address] | | | [place] [address] | + + + | Home Phone [...] [place] | | | | | [address] | | + + + + + Care Team Providers + +------+ + | Care Museum Educator Name | Role | Phone | [...] | | | | | | [place], | | | | | | [place] [address] | | | | | | [phone] | | | +--------+ + + + [...] + | 04/29/ | Diagnostic | Sales Hunter | Marce Meyer | | | 2019 | Visit | | Eve Briseno [address] [facility] | | | | | | [address] | | | | | | [place] | | | | | | [address] | | +--------+ + + + + documented as of this encounter Visit Diagnoses Not on filedocumented in this encounter"
--- OUTSIDE RECORDS SUMMARY | ~2019-04-25 | XMS | Encounter Summary ---
Demographics + + + | Address | [address] | | | [place] [address] | + + + | Home Phone [...] [place] | | | | | [address] | | + + + + + Care Team Providers + +------+ + | Care Casting And Pasting Supervisor Name | Role | Phone | + +------+ + | Kerri Chavarria NP | PCP | | + +------+ + Encounter Details +--------+ + + + + | Date | Type | Department | Care Team | Description | +--------+ + + + + | 05/28/ | Abstract | Digestive Health | Ayana Butler W, | | | 2011 | | [place] at [facility] [address] | [address] | | | | | [address] | [place], [place] | | | | | Mailcode: [place] | [address] | | | | | for Health and | [phone] | | | | | [facility] [address] | | | | | | [facility] [place] | | | | | | [address] | | | | | | [phone] | | | +--------+ + + + [...] + + | 04/29/ | Diagnostic | Distance Learning Coordinator | Marce Meyer | | | 2019 | Visit | | Eve Briseno [address] [facility] | | | | | | [address] | | | | | | [place] | | | | | | [address] | | +--------+ + + + + documented as of this encounter Visit Diagnoses Not on filedocumented in this encounter"
--- OUTSIDE RECORDS SUMMARY | ~2019-04-25 | XMS | Encounter Summary ---
Demographics + + + | Address | [address] | | | [place] [address] | + + + | Home Phone [...] [place] | | | | | [address] | | + + + + + Care Team Providers + +------+ + | Care Brand Marketing Specialist Name | Role | Phone [...] Walker | | | | | | [place] [facility] | | | | | | [facility] [address] | | | | | [address] [place], | | | | | | [place] [address] | | | | | | [phone] | | | | | | | [...] + + | 04/29/ | Diagnostic | Missile Facilities Repairer | Marce Meyer | | | 2019 | Visit | | Eve Briseno [address] | | | | | | [address] | | | | | | [place], [place] | | | | | | [address] | | +--------+ + + + + [...] + + + + | WBC, | DROSSER | X10 3/uL | [facility] | | [...] + + + | BANDS % | DROSSER | 0 - 7 % | [facility] | | | | | | A MEDICAL | | | | | | CENTER | | + + + + + + | CBC | ERROR FLAGS -HEMATOLOGY | | [facility] | | | COMMENTS | INSTR. DROSSER | | A MEDICAL | | | | | | CENTER | | + + + + + + | CBC | DEFINITIVE FLAG DROSSER | | [facility] | | | COMMENTS [...] + + + + | DIFF | DROSSER | | [facility] | | | COMMENTS [...] + + + + | BASOPHIL%, | DROSSER | 0 - 1 % | [facility] | | | MANUAL | | | A MEDICAL | | | | | | CENTER | | + + + + + + | REACTIVE | DROSSER | 0.0 - 4.0 % | [facility] | | | LYMPHS % | | | A MEDICAL | | | | | | CENTER | | + + + + + + | BANDS % | DROSSER | 0 - 7 % | [facility] | | | | | | A MEDICAL | | | | | | CENTER | | + + + + + + | METAMYELOCY | DROSSER | 0 - 0 % | [facility] | | | BRANDON % | | | A MEDICAL | | | | | | CENTER | | + + + + + + | MYELOCYTES | DROSSER | 0 - 0 % | [facility] | | | % | | | A MEDICAL | | | | | | CENTER | | + + + + + + | PROMYELOCYT | DROSSER | 0 - 0 % | [facility] | | | ES % | | | A MEDICAL | | | | | | CENTER | | + + + + + + | BLASTS | DROSSER | 0 - 0 % | [facility] [...] + + + + | NUCLEATED | DROSSER | | [facility] | | | RBCS | | | A MEDICAL | | | | | | CENTER | | + + + + + + | GIANT PLT | DROSSER | | [facility] | | | | [...] + + | [facility] | [address] | [place] [address] | | | MEDICAL CENTER | Streets [...] | [address] | [place] [address] | | | MEDICAL [place] | [facility] | | | + + + + + documented in this encounter Visit Diagnoses Not on filedocumented in this encounter"
--- OUTSIDE RECORDS SUMMARY | ~2019-04-25 | XMS | Encounter Summary ---
Demographics + + + | Address | [address] | | | [place] [address] | + + + | Home Phone [...] [place] | | | | | [address] | | + + + + + Care Team Providers + +------+ + | Care Compliance Investigator Name | Role | Phone | + [...] Abdominal | Ayana Jovel MD | [facility] [address] | | | | | wall fluid | [address] | | | | | collections | Ave | Toy[place] | | | | | Procedures | [place], [place] | Mailcode: | | | | | [address] | [address] | [address] [facility] | | | | | IV CONTRAST | Phone: | Hospital | | | | | | [phone] | [place], [place] | | | | | | Fax: | [address] | | | | | | [phone] | Phone: | | | | | | | [phone] | | | | | | | Fax: | | | | | | | [phone] | +--------+--------+ + + + + Encounter Details +--------+ + + + + | Date | Type | Department | Care Team | Description | +--------+ + + + + | 10/20/ | Hospital | Radiology/Imaging | | | | 2012 | Encounter | Lab at [facility] [address] | | | | | | [address] Mailcode: | | | | | | [facility] | | | | | | Health and Healing, | | | | | | [place] [address], [facility] | | | | | | Floor [place], [place] | | | | | | [address] | | | | | | [phone] | | | +--------+ + + + [...] + | 04/29/ | Diagnostic | Public School Teacher | Marce Meyer | | | 2019 | Visit | | Eve Briseno [address] | | | | | | [address] | | | | | | [place], [place] | | | | | | [address] | | +--------+ + + + + [...] 17 | 6 - 20 mg/dL | [facility], | | | | | | POINT OF | | | | | | CARE TESTS | | + +-------+ + + + | CREATININE, | 0.9 | 0.7 - 1.3 mg/dL | [facility], | | | POC | | [...] + + | [address]KE[address] D[address] | [address] | [place] [address] | | | OF CARE TESTS | | | | + + + + + documented in this encounter Visit Diagnoses + + | Diagnosis | + + | Abdominal wall fluid collections Other ascites | + + documented in this encounter"
--- OUTSIDE RECORDS SUMMARY | ~2019-04-25 | XMS | Encounter Summary ---
Demographics + + + | Address | [address] | | | [place] [address] | + + + | Home Phone [...] [place] | | | | | [address] | | + + + + + Care Team Providers + +------+ + | Care Reconciliation Coordinator Name | Role | Phone | + +------+ + | Kerri Chavarria NP | PCP | | + +------+ + Encounter Details +--------+ + + + + | Date | Type | Department | Care Team | Description | +--------+ + + + + | 02/01/ | Safety Advisor | Pulmonary & | Chaitanya Alvarado, | Asthma (Primary Dx) | | 2007 | | Critical Care | MD Hopper | | | | | Medicine at | [facility] | | | | | Physicians Chris | [address] | | | | | [address] | [place] [address] | | | | | Toya Spencer Mailcode: | [phone] | | | | | [id number] Physician's | | | | | | [address] | | | | | | [place], [place] | | | | | | [address] | | | | | | [phone] | | | +--------+ + + + [...] + + | 10/04/ | Diagnostic | Wood Cut Engraver | MitchMarce | | | 2019 | Visit | | Eve Briseno [address] [facility] | | | | | | [address] | | | | | | [place], [place] | | | | | | [address] | | +--------+ + + + + [...]
--- OUTSIDE RECORDS SUMMARY | ~2019-04-25 | XMS | Encounter Summary ---
Demographics + + + | Address | [address] | | | [place] [address] | + + + | Home Phone [...] [place] | | | | | [address] | | + + + + + Care Team Providers + +------+ + | Care Beveler Name | Role | Phone | + [...] [address] | | | | | [address] | [place], [place] | | | | | Mailcode: PV01 | [address] | | | | | Physician's [facility] | [phone] | | | | | [place], [place] | | | | | | [address] | | | | | | [phone] | | | +--------+ + + + [...] + + | 04/29/ | Diagnostic | Shark Biologist | Marce Meyer | | | 2019 | Visit | | Eve Briseno [address] | | | | | | [address] | | | | | | [place] | | | | | | [address] | | +--------+ + + + + documented as of this encounter Visit Diagnoses Not on filedocumented in this encounter"
--- OUTSIDE RECORDS SUMMARY | ~2019-04-25 | XMS | Encounter Summary ---
Demographics + + + | Address | [address] | | | [place] [address] | + + + | Home Phone [...] [place] | | | | | [address] | | + + + + + Care Team Providers + +------+ + | Care Engraver Flatware Name | Role | Phone | + [...] | PhD | | | | | [address] | | | | | | [place] Mailcode: | | | | | | [address] Physician's | | | | | | [place], | | | | | | [place] [address] | | | | | | [phone] | | | +--------+ + + + [...] + + | 04/29/ | Diagnostic | Journey Lineman | Marce Meyer | | | 2019 | Visit | | Eve Briseno [address] | | | | | | [address] | | | | | | [place] | | | | | | [address] | | +--------+ + + + + documented as of this encounter Visit Diagnoses Not on filedocumented in this encounter"
--- OUTSIDE RECORDS SUMMARY | ~2019-04-25 | XMS | Encounter Summary ---
Demographics + + + | Address | [address] | | | [place] [address] | + + + | Home Phone [...] [place] | | | | | [address] | | + + + + + Care Team Providers + +------+ + | Care Elevator Mechanic Apprentice Name | Role | Phone | [...] | | | | | | [place], | | | | | | [place] [address] | | | | | | [phone] | | | +--------+ + + + [...] + | 04/29/ | Diagnostic | Air Sampler | Marce Meyer | | | 2019 | Visit | | Eve Briseno [address] [facility] | | | | | | [address] | | | | | | [place] | | | | | | [address] | | +--------+ + + + + documented as of this encounter Visit Diagnoses Not on filedocumented in this encounter"
--- OUTSIDE RECORDS SUMMARY | ~2019-04-25 | XMS | Encounter Summary ---
Demographics + + + | Address | [address] | | | [place] [address] | + + + | Home Phone | | + + + | Preferred Language | Unknown | + + + | Marital Status | | + + + | Uatsdin Affiliation | Unknown | + + + | Race | Unknown | + + + | Ethnic Group | Unknown | + + + Author + + + | Author | [facility] | | | and [place] | + + + | Organization | [facility] | | [...] Team Providers + +------+ + | Care Barrel Rifler Broach Name | Role | Phone | + +------+ + | Maurice Zelaya MD | PCP | | + +------+ + Encounter Details +--------+ + + + + | Date | Type | Department | Care Team | Description | +--------+ + + + + | 02/16/ | Orders Only | [facility] | Provider, | Epilepsy without | | 2019 | | SYSTEM GENERIC OP | MD [address] | status epilepticus, | | | | CONVERSION [address] | [address] | not intractable | | | | [address] [place], [place] | [place] [address] | ([facility]); [employer] | | | | [address] | | symptomatic epilepsy | | | | [phone] | | w cmplx part sz, | | | | | | notintrac, wo status | | | | | | ([facility]) | +--------+ + + + + Social [...] | | 2018 | Visit | | Kleermail | | | | | | [address] | | | | | | [place] [address] | | | | | | [phone] | | | | | | | | +--------+---------+ + + + | 07/13/ | Office | Pulmonology | Hua Garcia, | | | 2018 | Visit | | [address] | | | | | | [place] | | | | | | [address] | | | | | | | [...]
--- OUTSIDE RECORDS SUMMARY | ~2019-04-25 | XMS | Encounter Summary ---
Demographics + + + | Address | [address] | | | [place] [address] | + + + | Home Phone [...] [place] | | | | | [address] | | + + + + + Care Team Providers + +------+ + | Care Forest Pathology Associate Professor Name | Role | Phone | [...] [address] | | | | | [place], [place] | [place] [address] | | | | | [address] | | | | | | [phone] | | | +--------+ + + + [...] + + | 04/29/ | Diagnostic | Survey Crew Chief | Marce Meyer | | | 2019 | Visit | | Eve Briseno [address] | | | | | | [address] | | | | | | [place], [place] | | | | | | [address] | | +--------+ + + + + documented as of this encounter Visit Diagnoses Not on filedocumented in this encounter"
--- OUTSIDE RECORDS SUMMARY | ~2019-04-25 | XMS | Encounter Summary ---
Demographics + + + | Address | [address] | | | [place] [address] | + + + | Home Phone [...] [place] | | | | | [address] | | + + + + + Care Team Providers + +------+ + | Care Pull Over Machine Operator Name | Role | Phone [...] | | | | | | | [place], [place] | | | | | | | [address] | | | | | | | Phone: | | | | | | | [phone] | | | | | | | Fax: | | | | | | | [phone] | +--------+--------+ + + + + Encounter [...] | | | [address] | [place] [address] | | | | | Mailcode: PV01 | [phone] | | | | | Physician'johnathon Perez | (Fax) | | | | | [place], [place] | | | | | | [address] | | | | | | [phone] | | | +--------+---------+ + + + [...] 11/25/2011 1:16 PM PDTThank you for choosing [facility] Department of Otol[facility]ology for your health care needs. If you need to speak to an EN T physician after normal business hours, please call [phone] and ask to have the ENT ph ysician distribution engineering technologist paged. [employer] is a great way to contact me if you have questions in between visits. If you are n ot already signed up for [employer] there is information at the end of [...] and was hospitalized and jenelle marie on long distance billing operator IV antibiotics. This is his first follow [...] + + | 04/29/ | Diagnostic | Salvage Repairer | Marce Meyer | | | 2019 | Visit | | Eve Briseno [address] [facility] | | | | | | [address] | | | | | | [place] | | | | | | [address] | | +--------+ + + + + documented as of this encounter Visit Diagnoses + + | Diagnosis | + + | Neural hearing loss, bilateral - Primary | + + documented in this encounter"
--- OUTSIDE RECORDS SUMMARY | ~2019-04-25 | XMS | Encounter Summary ---
Demographics + + + | Address | [address] | | | [place] [address] | + + + | Home Phone [...] [place] | | | | | [address] | | + + + + + Care Team Providers + +------+ + | Care Kosher Dietary Service Manager Name | Role | Phone | [...] | | | | [facility] | [facility] | | | | | | Grp | [address] [place], | | | | | | [facility] | [place] | | | | | | [address] | [address] | | | | | | [facility] | | | | | | | [address] | | | | | | | [address] | | | | | | | [place], | | | | | | | [place] [address] | | | | | | | Phone: | | | | | | | [phone] | | | | | | | Fax: | | | | | | | [phone] | | +--------+--------+ + + + + [...] Chris | | | | | | [place], [place] | | | | | | [address] | | | | | | [phone] | | | +--------+---------+ + + + [...] 12/10/2012 2:27 PM PDTThank you for choosing [facility] Department of Otolaryngology for your health care needs. If you need to speak to an EN T physician after normal business hours, please call [phone] and ask to have the ENT ph ysician machine container washer paged. Thank you for choosing [facility] Department of Otolaryngology for your health care needs. If yo u need to speak to an ENT physician after normal business hours, please call [phone] an d ask to have the ENT physician machine container washer paged. 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
--- OUTSIDE RECORDS SUMMARY | ~2019-04-25 | XMS | Encounter Summary ---
Demographics + + + | Address | [address] | | | [place] [address] | + + + | Home Phone [...] [place] | | | | | [address] | | + + + + + Care Team Providers + +------+ + | Care Retail Sales Advisor Name | Role | Phone | [...] | | Toya Spencer Mailcode: | [place], [place] | to patient) | | | | [address] Physician's | [address] | | | | | [place] | | | | | | [place] [address] | | | | | | [phone] | | | +--------+ + + + [...] + + | 04/29/ | Diagnostic | Small Engine Trainer | Marce Meyer | | | 2019 | Visit | | Finn, Eve [address] | | | | | | [address] | | | | | | [place], [place] | | | | | | [address] | | +--------+ + + + + documented as of this encounter Visit Diagnoses Not on filedocumented in this encounter"
--- OUTSIDE RECORDS SUMMARY | ~2019-04-25 | XMS | Encounter Summary ---
Demographics + + + | Address | [address] | | | [place] [address] | + + + | Home Phone | | + + + | Preferred Language | Unknown | + + + | Marital Status | | + + + | Taoism Affiliation | Unknown | + + + | Race | Unknown | + + + | Ethnic Group | Unknown | + + + Author + + + | Author | [facility] | | | and [place] | + + + | Organization | [facility] | | | and [...] Providers + +------+ + | Care Survey Worker Name | Role | Phone | [...] + + | 04/19/ | Office | [facility] | Jaret Thompson MD [address] | Seizure disorder | | 2019 | Visit | NEUROLOGY [address] | ([facility]) (Primary Dx); | | | | ESTELLA LIAO | [address], | Driving safety | | | | [place], [place] | [place] [address] | issue; Tremors of | | | | [address] | [phone] | nervous system | | | | [phone] | | | +--------+---------+ + + + [...] e just had his lab checked at [facility] in [place] a week ago, we have not received the re [facility] Lab 04/26/18, carbamazepine 7.7, CBC, CMP fine [...] Melgar MD This note was prepared using PatientFocusation voice recognition technology. There may be so [...] | | 2018 | Visit | | [facility] | | | | | | [address] | | | | | | [place] [address] | | | | | | [phone] | | | | | | | | +--------+---------+ + + + | 07/13/ | Office | Pulmonology | Hua Garcia, | | | 2018 | Visit | | MD Ajay BURTON | | | | | | [place] | | | | | | [id number] | | | | | | | [...]
--- OUTSIDE RECORDS SUMMARY | ~2019-04-25 | XMS | Encounter Summary ---
Demographics + + + | Address | [address] | | | [place] [address] | + + + | Home Phone [...] [place] | | | | | [address] | | + + + + + Care Team Providers + +------+ + | Care Assistant Auto Center Manager Name | Role | Phone | [...] ventral | Ayana Jovel MD | [facility] [address] | | | | | hernia | [address] | | | | | repair | Ave | [place] | | | | | Procedures | [place], [place] | Mailcode: | | | | | CT ABDOMEN & | [address] | [address] [facility] | | | | | PELVIS W IV | Phone: | Hospital | | | | | CONTRAST | [phone] | [place], [place] | | | | | [address] | Fax: | [address] | | | | | | [phone] | Phone: | | | | | | | [phone] | | | | | | | Fax: | | | | | | | [phone] | +--------+--------+ + + + + Diagnostic [...] | | | | | Procedures | [place], [place] | Mailcode: | | | | | CT ABDOMEN & | [address] | [address] [facility] | | | | | PELVIS W IV | Phone: | Hospital | | | | | CONTRAST | [phone] | [facility] [place] | | | | | [address] | Fax: | [address] | | | | | | [phone] | Phone: | | | | | | | [phone] | | | | | | | Fax: | | | | | | | [phone] | +--------+--------+ + + + + Reason [...] | | | | | Procedures | [place], [place] | Mailcode: | | | | | CT ABDOMEN & | [address] | [address] [facility] | | | | | PELVIS W IV | Phone: | Hospital | | | | | CONTRAST | [phone] | [place], [place] | | | | | [address] | Fax: | [address] | | | | | | [phone] | Phone: | | | | | | | [phone] | | | | | | | Fax: | | | | | | | [phone] | +--------+--------+ + + + + Encounter Details +--------+ + + + + | Date | Type | Department | Care Team | Description | +--------+ + + + + | 12/03/ | Hospital | Radiology/Imaging | | | | 2012 | Encounter | Lab at [facility] [address] | | | | | | Jb Leo Mailcode: | | | | | | [facility] | | | | | | Health and [facility], | | | | | | [address] | | | | | | [place], [place] | | | | | | [address] | | | | | | [phone] | | | +--------+ + + + [...] + + | 04/29/ | Diagnostic | Guard Range | Marce Meyer | | | 2019 | Visit | | Eve Briseno [address] | | | | | | [address] | | | | | | [place], [place] | | | | | | [address] | | +--------+ + + + + [...] | | | | | | FORREST OLVE MDAuthor: | | | | | | [...] + + | MARKELL DARLING | [address] | [place] [address] | | | OF CARE TESTS | | | | + + + + + documented in this encounter Visit Diagnoses + + | Diagnosis | + + | H/O ventral hernia repair Personal history of surgery to other organs | + + documented in this encounter"
--- OUTSIDE RECORDS SUMMARY | ~2019-04-25 | XMS | Clinical Summary ---
Demographics + + + | Address | [address] | | | [place] [address] | + + + | Home Phone | | + + + | Preferred Language | Unknown | + + + | Marital Status | Legally | + + + | Mandaen Affiliation | Unknown | + + + | Race | Unknown | + + + | Ethnic Group | Unknown | + + + Author + + + | Author | [facility] (Historical as of | | | 03-12-19) | + + + | Organization | [facility] (Historical as of | | | 03-12-19) [...] Providers + +------+ + | Care Animal Trainer Name | Role | Phone | [...] +------+-------+ + | MEDICAID | [place] | [id number] | | | [address] | | | N | | | | [place] | | | [place] | | | | [address] | | | FACILITIES MAINTENANCE WORKER | | | | | + +--------+ [...] gabe | | | 2017 | [place] [address] | + +--------+ +--------+ + +"
--- OUTSIDE RECORDS SUMMARY | ~2019-04-25 | XMS | Encounter Summary ---
Demographics + + + | Address | [address] | | | [place] [address] | + + + | Home Phone [...] [place] | | | | | [address] | | + + + + + Care Team Providers + +------+ + | Care Rn Clinical Resource Name | Role | Phone | + [...] Walker | | | | | | [facility] | | | | | | [facility] [address] | | | | | | [address] [place], | | | | | | [place] [address] | | | | | | [phone] | | | | | | | [...] + | 04/29/ | Diagnostic | Cloth Cutting Machine Operator | Marce Meyer | | | 2019 | Visit | | Eve Briseno [address] | | | | | | [address] | | | | | | [place], [place] | | | | | | [address] | | +--------+ + + + + [...] + + | [facility] | And | [place] [address] | | | MEDICAL [place] | [place] | | | + + + + + documented in this encounter Visit Diagnoses Not on filedocumented in this encounter"
--- OUTSIDE RECORDS SUMMARY | ~2019-04-25 | XMS | Encounter Summary ---
Demographics + + + | Address | [address] | | | [place] [address] | + + + | Home Phone [...] [place] | | | | | [address] | | + + + + + Care Team Providers + +------+ + | Care Safety Teacher Name | Role | Phone | [...] | | | | | | [place], | | | | | | [place] [address] | | | | | | [phone] | | | +--------+ + + + [...] + + | 04/29/ | Diagnostic | Laundry Route Driver | Marce Meyer | | | 2019 | Visit | | Eve Briseno [address] | | | | | | [address] | | | | | | [place] | | | | | | [address] | | +--------+ + + + + documented as of this encounter Visit Diagnoses Not on filedocumented in this encounter"
--- OUTSIDE RECORDS SUMMARY | ~2019-04-25 | XMS | Clinical Summary ---
Demographics + + + | Address | [address] | | | [place] [address] | + + + | Home Phone [...] [place] | | | | | [address] | | + + + + + Care Team Providers + +------+ + | Care Integrity Assessor Name | Role | Phone | + +------+ + | Maurice Zelaya MD | PCP | | + +------+ + Source Comments [facility]N is fully live on both [facility] and [facility] InPatient.[facility] Allergies + + + + + + [...] + + + + + | Overview: Radah Byrd | + + + + + [...] + + | 03/09/ | Diagnostic | Manager Inpatient | Marce Meyer | Hearing loss | | 2019 | Visit | | K, Eve | (Re-establishing | | | | | | care) | +--------+ + + + + | 03/09/ | Documentati | Manager Inpatient | Marce Meyer | | | 2018 [...] + | 04/29/ | Diagnostic | Manager Inpatient | Marce Meyer | | | 2019 | Visit | | Eve Briseno [address] | | | | | | [address] | | | | | | [place], [place] | | | | | | [address] | | +--------+ + + + + [...] | | [facility] | | 04/25/ | [id number] | | [id number]: Qty: 1 on | | | | | 2013 | 2 / | | 08/19/2012 by Ayana Butler | | | | | | /[id number] | | MD Med at [facility] | | | | | | [...] | | | + +--------+ +--------+-------+---------+--------+ | CAR BLOCKER MEDICAID | CAR BLOCKER | xxxxxxxx | 02/01/20 | | | [...] | 1966 | [phone] | [place] [address] | | | gabe | | | [...]
--- OUTSIDE RECORDS SUMMARY | ~2019-04-25 | XMS | Encounter Summary ---
Demographics + + + | Address | [address] | | | [place] [address] | + + + | Home Phone [...] [place] | | | | | [address] | | + + + + + Care Team Providers + +------+ + | Care Otolaryngology Physician Name | Role | Phone | + +------+ + | Cee Triana MD | PCP | Unavailable | + +------+ + Reason for Visit + + + | Reason | Comments | + + + | Radiology Results | 06/09/2012 - [facility] | + + + Encounter Details +--------+ + + + + | Date | Type | Department | Care Team | Description | +--------+ + + + + | 07/05/ | Abstract | Digestive Health | Ayana Butler, | Radiology Results | | 2011 | | Center at [facility] [address] | MD [address] | (06/09/2012 - | | | | [address] | [place], [place] | [facility]) | | | | Mailcode: [place] | [address] | | | | | [facility] and | [phone] | | | | | [place] [address] | | | | | | [place], [place] | | | | | | [address] | | | | | | [phone] | | | +--------+ + + + [...] + + | 04/29/ | Diagnostic | Mental Health Case Manager | Marce Meyer | | | 2018 | Visit | | Eve Briseno [address] [facility] | | | | | | [address] | | | | | | [place], [place] | | | | | | [address] | | +--------+ + + + + documented as of this encounter Visit Diagnoses Not on filedocumented in this encounter"
--- OUTSIDE RECORDS SUMMARY | ~2019-04-25 | XMS | Encounter Summary ---
Demographics + + + | Address | [address] | | | [place] [address] | + + + | Home Phone [...] [place] | | | | | [address] | | + + + + + Care Team Providers + +------+ + | Care Outside Solar Sales Consultant Name | Role | Phone | [...] [place] | | | | | | [address] | | | | | | [phone] | | | | | | | [...] + + | 04/29/ | Diagnostic | Living Nurse | Marce Meyer | | | 2019 | Visit | | Eve Briseno [address] [facility] | | | | | | [address] | | | | | | [place], [place] | | | | | | [address] | | +--------+ + + + + [...] + + + | BANDS % | MANAGED CARE ANALYST | 0 - 7 % | [...] | + + + + + | [facility] | [address] | [place] [address] | | | MEDICAL CENTER | Streets [...] | [address] | [facility] | | | PLASMA | | | [...] | [address] | [place] [address] | | | MEDICAL CENTER | Streets [...] | [address] | [place] [address] | | | MEDICAL CENTER | Streets | | | + + + + + documented in this encounter Visit Diagnoses Not on filedocumented in this encounter"
--- OUTSIDE RECORDS SUMMARY | ~2019-04-25 | XMS | Encounter Summary ---
Demographics + + + | Address | [address] | | | [place] [address] | + + + | Home Phone [...] [place] | | | | | [address] | | + + + + + Care Team Providers + +------+ + | Care Payroll Assistant Name | Role | Phone | [...] | | | | | [facility] [address] [facility] | | | | | | [address] | | | | | | Mailcode: PV[address] | | | | | | Priya Perez | | | | | | [place], [place] | | | | | | [address] | | | | | | [phone] | | | +--------+--------+ + + + [...] + + | 04/29/ | Diagnostic | Inside Outside Sales Representative | Marce Meyer | | | 2019 | Visit | | Eve Briseno [address] [facility] | | | | | | [address] | | | | | | [place] | | | | | | [address] | | +--------+ + + + + documented as of this encounter Visit Diagnoses Not on filedocumented in this encounter"
--- OUTSIDE RECORDS SUMMARY | ~2019-04-25 | XMS | Encounter Summary ---
Demographics + + + | Address | [address] | | | [place] [address] | + + + | Home Phone [...] [place] | | | | | [address] | | + + + + + Care Team Providers + +------+ + | Care Gin Operator Name | Role | Phone | [...] | | | | | BENIGN | [place], [place] | [address] [facility] | | | | | DISEASE WO | [address] | Hospital | | | | | | Phone: | [place], [place] | | | | | | [phone] | [address] | | | | | | Fax: | Phone: | | | | | | | [phone] | | | | | | | Fax: | | | | | | | [phone] | +--------+--------+ + + + + Diagnostic [...] | Otitis | MD Jose | s [address] | | | | | externa | [address] | | | | | Procedures | Avenue | Toya Spencer | | | | | [address] | [address] | Mailcode: | | | | | BENIGN | [place], [place] | [address] [facility] | | | | | DISEASE WO | [address] | [facility] | | | | | | Phone: | [place], [place] | | | | | | [phone] | [address] | | | | | | Fax: | Phone: | | | | | | | [phone] | | | | | | | Fax: | | | | | | | [phone] | +--------+--------+ + + + + Reason [...] | | | | | | | [address] | | | | | | | [address] | | | | | | | [facility] | | | | | | | Hospital | | | | | | | [place], [place] | | | | | | | [address] | | | | | | | Phone: | | | | | | | [phone] | | | | | | | Fax: | | | | | | | [phone] | +--------+--------+ + + + + Encounter Details +--------+ + + + + | Date | Type | Department | Care Team | Description | +--------+ + + + + | 12/03/ | Hospital | Diagnostic Imaging | | | | 2010 | Encounter | Services at [facility] | | | | | | [address] | | | | | | [address] Mailcode: | | | | | | [address] [facility] | | | | | | [place], [place] | | | | | | [address] | | | | | | [phone] | | | +--------+ + + + [...] + + | 04/29/ | Diagnostic | Herbicide Sprayer | Marce Meyer | | | 2018 | Visit | | Eve Briseno [address] | | | | | | [address] | | | | | | [place], [place] | | | | | | [address] | | +--------+ + + + + [...] CT | | | | | | [id number]. Since | | | | | | [...] | | | | | | Carin Medlye M.D. I | | | | | [...]
--- OUTSIDE RECORDS SUMMARY | ~2019-04-25 | XMS | Encounter Summary ---
Demographics + + + | Address | [address] | | | [place] [address] | + + + | Home Phone [...] [place] | | | | | [address] | | + + + + + Care Team Providers + +------+ + | Care Motor Grader Rough Grade Name | Role | Phone | + [...] | | | | | [place] [address] | | | | | | [phone] | | | | | | | [...] + + | 04/29/ | Diagnostic | Termite Treater Helper | Marce Meyer | | | 2019 | Visit | | Eve Briseno [address] | | | | | | [address] | | | | | | [place], [place] | | | | | | [address] | | +--------+ + + + + documented as of this encounter Procedures + +--------+ + + + | Procedure Name | Priori | Date/Time | Associated Diagnosis | Comments | | | ty | | | | + +--------+ + + + | ABDOMEN 2 VIEW PA | Routin | 08/07/2008 | | Results for this | | CHEST 67548 | e | 12:57 PM | | [...] | | Results for this | | 34455 | e | 10:34 AM | | procedure are in the | | | | PST | | results section. | + +--------+ + + + documented in this encounter Results ABDOMEN 2 VIEW PA CHEST 53016 (08/07/2008 12:57 PM PST) + + | [...] are clear. IMPRESSION: Nonspecific abdominal gas pattern. 705130 | | + + + + + [...] are clear.IMPRESSION: Nonspecific abdominal gas | | pattern.470533 | |vessels remain normal. Lungs and pleural reflections are clear. | |IMPRESSION: Nonspecific abdominal gas pattern. | |131443 | + + + +---------+ + + [...] + + + | BANDS % | INVESTOR | 0 - 7 % | [facility] [...] | [facility] | [address] | [place] [address] | | | [facility]ICAL [place] | Streets | | | + + [...] | [address] | [place] [address] | | | MEDICAL CENTER | Streets | | | + + + + + TAGGED RBC GI BLEED 75054 (08/07/2008 10:34 AM PST) + + | [...] bleed during this | | | study. 036750 | | + + + + + [...] GI bleed during this study. | | 882103 | + + + +---------+ + + [...]
--- OUTSIDE RECORDS SUMMARY | ~2019-04-25 | XMS | Encounter Summary ---
Demographics + + + | Address | [address] | | | [place] [address] | + + + | Home Phone [...] [place] | | | | | [address] | | + + + + + Care Team Providers + +------+ + | Care Asset Protection Officer Name | Role | Phone | [...] + + + | Closed | | Warp Knitter | Procedures | Joan, | Ent | | | | | [place] | MD Jose | Cochlear Ppv | | | | | LITHIUM | [address] | [address] | | | | | MARIANNA CO[address] | Avenue | [address] | | | | | USE WITH | [address] | Rd Mailcode: | | | | | COCHLEAR | [place], [place] | [address] | | | | | IMPLANT | [address] | Physician's | | | | | | Phone: | Chris | | | | | | [phone] | [place], [place] | | | | | | Fax: | [address] | | | | | | | Phone: | | | | | | | [phone] | | | | | | | Fax: | | | | | | | [phone] | +--------+--------+ + + + + Encounter [...] | | | | | | Chris [place], | | | | | | [place] [address] | | | | | | [phone] | | | +--------+---------+ + + + [...] + + | 04/29/ | Diagnostic | Warp Knitter | Marce Meyer | | | 2019 | Visit | | Eve Briseno [address] | | | | | | [address] | | | | | | [place], [place] | | | | | | [address] | | +--------+ + + + + documented as of this encounter Visit Diagnoses + + | Diagnosis | + + | Neural hearing loss, bilateral - Primary | + + documented in this encounter"
--- OUTSIDE RECORDS SUMMARY | ~2019-04-25 | XMS | Encounter Summary ---
Demographics + + + | Address | [address] | | | [place] [address] | + + + | Home Phone [...] [place] | | | | | [address] | | + + + + + Care Team Providers + +------+ + | Care Clinical Nursing Manager Name | Role | Phone | + +------+ + | Jaison Chávez MD | PCP | | + +------+ + Encounter Details +--------+ + + + + | Date | Type | Department | Care Team | Description | +--------+ + + + + | 10/17/ | Results | NON-[facility] EP[facility] | [facility] eRes, | | | 2008 | Only | Department | MARY Walker | | | | | | [place] [facility] | | | | | | [facility] [address] | | | | | | [address] [place], | | | | | | [place] [address] | | | | | | [phone] | | | | | | | [...] + + | 04/29/ | Diagnostic | Skein Straightener | Marce Meyer | | | 2019 | Visit | | Eve Briseno [address] | | | | | | [address] | | | | | | [place], [place] | | | | | | [address] | | +--------+ + + + + [...] + + + + | WBC, | HARPOON ENGAGEMENT PLANNING OPERATOR | X10 3/uL | [facility] | | [...] + + + | BANDS % | HARPOON ENGAGEMENT PLANNING OPERATOR | 0 - 7 % | [...] + + + + | BASOPHIL%, | HARPOON ENGAGEMENT PLANNING OPERATOR | 0 - 1 % | [facility] | | | MANUAL | | | A MEDICAL | | | | | | CENTER | | + + + + + + | REACTIVE | HARPOON ENGAGEMENT PLANNING OPERATOR | 0.0 - 4.0 % | [facility] | | | LYMPHS % | | | A MEDICAL | | | | | | CENTER | | + + + + + + | BANDS % | HARPOON ENGAGEMENT PLANNING OPERATOR | 0 - 7 % | [facility] | | | | | | A MEDICAL | | | | | | CENTER | | + + + + + + | METAMYELOCY | HARPOON ENGAGEMENT PLANNING OPERATOR | 0 - 0 % | [facility] | | | BRANDON % | | | A MEDICAL | | | | | | CENTER | | + + + + + + | MYELOCYTES | HARPOON ENGAGEMENT PLANNING OPERATOR | 0 - 0 % | [facility] | | | % | | | A MEDICAL | | | | | | CENTER | | + + + + + + | PROMYELOCYT | HARPOON ENGAGEMENT PLANNING OPERATOR | 0 - 0 % | [facility] | | | ES % | | | A MEDICAL | | | | | | CENTER | | + + + + + + | BLASTS | HARPOON ENGAGEMENT PLANNING OPERATOR | 0 - 0 % | [facility] [...] + + + + | NUCLEATED | HARPOON ENGAGEMENT PLANNING OPERATOR | | [facility] | | | RBCS | | | A MEDICAL | | | | | | CENTER | | + + + + + + | GIANT PLT | HARPOON ENGAGEMENT PLANNING OPERATOR | | [facility] | | | | [...] | + + + + + | [facility] [facility] | And | [place] [address] | | | [facility] | Streets | | | + [...] 0.8 | 0.2 - 1.6 MG/DL | [facility] | | | TOTAL | | | A MEDICAL | | | | | | CENTER | | + + + + + + | FASTING? | UNKNOWN | HR | [facility] | [...] + + + + | [facility] | And | [place] [address] | | | [facility] | [facility] | | | + + + + + documented in this encounter Visit Diagnoses Not on filedocumented in this encounter"
--- OUTSIDE RECORDS SUMMARY | ~2019-04-25 | XMS | Encounter Summary ---
Demographics + + + | Address | [address] | | | [place] [address] | + + + | Home Phone [...] [place] | | | | | [address] | | + + + + + Care Team Providers + +------+ + | Care Glycerin Operator Name | Role | Phone | [...] | | E The | MD Lars [address] | | | | Transcribed | [place] | [address] | | | | | [address] | [place] [address] | | | | | | [phone] | | | | | | | [...] + + | 04/29/ | Diagnostic | Log Turner | Marce Meyer | | | 2019 | Visit | | Eve Briseno [address] | | | | | | [address] | | | | | | [place], [place] | | | | | | [address] | | +--------+ + + + + [...] Marcos Villanueva MD - 08/29/2009 6:38 PM [facility] | | REPORT OF [id number] [place] [address] | | EDGAR VIVAR RDATE OF OPERATION: [...] 08/29/2009 18:01:19DT: | | 08/29/2009 18:29:38ED[address]AR VIVAR [id number] : [id number] DATE:Job #: | | [id number]: Eduardo Staton M.D.Lawrence Elzinga, | | Adelaida | | | | | | Electronically | | Signed | | | | | | | | | | | | | | Marcos ShaikhGURJIT MORAIN [id number] : | | [id number] DATE: | |saline. The line was then [...] | | | |EDGAR VIVAR R | |[id number] : 63 | |[id number] | |ADMIT DATE: | | | | /[id number] | | | | | |cc: Marcos [...] | | | | |EDGAR VIVAR | |[id number] : 63 | |[id number] | |ADMIT DATE: | + + documented in this encounter Visit Diagnoses Not on filedocumented in this encounter"
--- OUTSIDE RECORDS SUMMARY | ~2019-04-25 | XMS | Encounter Summary ---
Demographics + + + | Address | [address] | | | [place] [address] | + + + | Home Phone [...] [place] | | | | | [address] | | + + + + + Care Team Providers + +------+ + | Care Visualization Developer Name | Role | Phone | [...] | Registratio | [address] | [address] [place] [address] | | | | n | Rd Mailcode: [id number] | [address] [place] | | | | | [place], [place] | [place] [address] | | | | | [address] | [phone] | | | | | [phone] | (Fax) | | +--------+ + + [...] + + | 04/29/ | Diagnostic | Cloud Operations Engineer | Marce Meyer | | | 2019 | Visit | | Eve Briseno [address] [facility] | | | | | | [address] | | | | | | [place], [place] | | | | | | [address] | | +--------+ + + + + documented as of this encounter Visit Diagnoses Not on filedocumented in this encounter"
--- OUTSIDE RECORDS SUMMARY | ~2019-04-25 | XMS | Encounter Summary ---
Demographics + + + | Address | [address] | | | [place] [address] | + + + | Home Phone [...] [place] | | | | | [address] | | + + + + + Care Team Providers + +------+ + | Care Soil Conservation Teacher Name | Role | Phone | [...] + + + | Closed | | Railroad Car Repair Supervisor | Diagnoses | Reese | Ent | [...] [address] | | | | | | [address] | Physician's | | | | | | | [address] | | | | | | | [place], [place] | | | | | | | [address] | | | | | | | Phone: | | | | | | | [phone] | | | | | | | Fax: | | | | | | | [phone] | +--------+--------+ + + + + Encounter [...] | | [address] | Rd [place], [place] | | | | | Mailcode: [address] | [address] | | | | | Physician'johnathon Perez | | | | | | [place], [place] | | | | | | [address] | | | | | | [phone] | | | +--------+---------+ + + + [...] Scottie. Mr. Marquez reported that his CI battery assembler was misplaced when he was in the [...] Melodie Herbert M.A., YULIA-A Clinical & Rehabilitative Railroad Car Repair Supervisor [facility] Cochlear Implant Program Departement of Otolaryngology/Head & Neck Surgery documented in t his encounter Plan of Treatment +--------+ + + + + | Date | Type | Specialty | Care Team | Description | +--------+ + + + + | 04/29/ | Diagnostic | Railroad Car Repair Supervisor | Marce Meyer | | | 2018 | Visit | | Eve Briseno [address] | | | | | | [address] | | | | | | [facility] | | | | | | [address] | | +--------+ + + + + documented as of this encounter Visit Diagnoses + + | Diagnosis | + + | Neural hearing loss, bilateral - Primary | + + documented in this encounter"
--- OUTSIDE RECORDS SUMMARY | ~2019-04-25 | XMS | Encounter Summary ---
Demographics + + + | Address | [address] | | | [place] [address] | + + + | Home Phone [...] [place] | | | | | [address] | | + + + + + Care Team Providers + +------+ + | Care Digital Marketing Program Manager Name | Role | Phone | [...] | | | | [address] | [place], [place] | [address] [facility] | | | | | BENIGN | [address] | Hospital | | | | | DISEASE WO | | [place], [place] | | | | | | | [address] | | | | | | | Phone: | | | | | | | [phone] | | | | | | | Fax: | | | | | | | [phone] | +--------+--------+ + + + + Encounter Details +--------+ + + + + | Date | Type | Department | Care Team | Description | +--------+ + + + + | 02/21/ | Bell Attendant | Otolaryngology | Willie Plunkett, | Cholesteatoma | | 2012 | | Otology Services at | MD | (Primary Dx) | | | | [facility] [address] | | | | | | [address] | | | | | | Mailcode: [address] | | | | | | Physician's Chris | | | | | | [place], [place] | | | | | | [address] | | | | | | [phone] | | | +--------+ + + + [...] + + | 04/29/ | Diagnostic | Rotary Furnace Operator | Mitch Marce | | | 2019 | Visit | | K, AuD [address] [facility] | | | | | | [address] | | | | | | [place], [place] | | | | | | [address] | | +--------+ + + + + [...]
--- OUTSIDE RECORDS SUMMARY | ~2019-04-25 | XMS | Encounter Summary ---
Demographics + + + | Address | [address] | | | [place] [address] | + + + | Home Phone [...] [place] | | | | | [address] | | + + + + + Care Team Providers + +------+ + | Care Assistant Winemaker Name | Role | Phone | + [...] | | skin | [address] | [place], [place] | | | | | eruption | [address] | [address] | | | | | rash over | [address] | Phone: | | | | | body for | [address] | [phone] | | | | | 2-weeks | [place], | Fax: | | | | | | [place] [address] | [phone] | +--------+ + + + + + Encounter Details +--------+---------+ + + + | Date | Type | Department | Care Team | Description | +--------+---------+ + + + | 02/27/ | Office | Dermatology | Yuri Nathan, | Rash and Other | | 2008 | Visit | Medical at [facility] [address] | [address] | Nonspecific Skin | | | | Floor [address] | [place], [place] | Eruption; Itch; | | | | Ave Mailcode: CH16D | [address] | Folliculitis | | | | [facility] | [phone] | | | | | and Healing, | | | | | | [facility] | | | | | | [place], [place] | | | | | | [address] | | | | | | [phone] | | | +--------+---------+ + + + [...] [address] [place] [address] Diffuse excoriations over trunk, arms & legs [...] of care. YURI NATHAN MD MEDICAL DERMATOLOGY [address] Mail Code: Ch16d [facility], [address] [facility] [address] Milena Lepe Md - 02/27/2009 4:28 PM [...] Milena Giraldo M.D. Resident, Department of Dermatology [facility] documented in this enco unter Plan of Treatment +--------+ + + + + | Date | Type | Specialty | Care Team | Description | +--------+ + + + + | 04/29/ | Diagnostic | Travel Occupational Therapist | Marce Meyer | | | 2019 | Visit | | K, AuD [address] [facility] | | | | | | [address] | | | | | | [place], [place] | | | | | | [address] | | +--------+ + + + + documented as of this encounter Visit Diagnoses + + | Diagnosis | + + | Rash and other nonspecific skin eruption | + + | Itch Unspecified pruritic disorder | + + | Folliculitis Other specified disease of hair and hair follicles | + + documented in this encounter
--- OUTSIDE RECORDS SUMMARY | ~2019-04-25 | XMS | Encounter Summary ---
Demographics + + + | Address | [address] | | | [place] [address] | + + + | Home Phone [...] [place] | | | | | [address] | | + + + + + Care Team Providers + +------+ + | Care Tractor Drill Operator Name | Role | Phone | [...] VENTRAL HERNIA | | 2012 | | [facility] | [address] | REPAIR WITH MESH | | | | Admitting Desk | [place], [place] | EXCISIOn OF SCAR, | | | | Located on the | [address] | LYSIS OF ADHESIONS | | | | floor [address] [facility] | [phone] | | | | | [facility] | | | | | | [place], [place] | | | | | | [address] | | | +--------+---------+ + + + [...] 'after hours' URGENT problems please call the [facility] insulation board calender operator at and ask sid pho[place] the [...] Kennedy MD Chief Resident Department of Surgery [facility] documented in this en counter Discharge Instructions Instructions Nanda Stanley RN - 08/28/2012Patient Education Materials: EDEN Drain care at [facility] e Additional Instructions: Abdominal precautions Discharge Nurse: [...] Pinon MD Chief Resident Department of Surgery [facility] Nav Grider MD - 08/27/2012 8:40 PM PST [facility] Department of Surgery Blue Surgery [...] this patient encounter. NAV ALLEN MD Diagnoses: 350872 Ventral hernia 383.1 Chronic mastoiditis Meds: acetaminophen [...] Grider MD - 08/26/2012 10:14 AM PST [facility] Department of Surgery Blue Surgery [...] this patient encounter. NAV ALLEN MD Diagnoses: 129542 Ventral hernia 383.1 Chronic mastoiditis Meds: acetaminophen [...] Grider MD - 08/25/2012 6:49 AM PST [facility] Department of Surgery Blue Surgery [...] this patient encounter. NAV ALLEN MD Diagnoses: 122395 Ventral hernia 383.1 Chronic mastoiditis Meds: acetaminophen [...] Grider MD - 08/24/2012 6:15 AM PST [facility] Department of Surgery Blue Surgery [...] this patient encounter. NAV ALLEN MD Diagnoses: 791415 Ventral hernia 383.1 Chronic mastoiditis Meds: acetaminophen [...] Grider MD - 08/23/2012 6:24 AM PST [facility] Department of Surgery Blue Surgery Progress Note Author: Nav Allen MD Attending Physician: Ayana Butler MD 08/23/2012 SUBJECTIVE: Interval history: Threatened to leave [facility] because he wanted a regular diet Had [...] this patient encounter. NAV ALLEN MD Diagnoses: 727174 Ventral hernia 383.1 Chronic mastoiditis Meds: acetaminophen [...] Grider MD - 08/22/2012 8:57 AM PST [facility] Department of Surgery Blue Surgery [...] this patient encounter. NAV ALLEN MD Diagnoses: 462522 Ventral hernia 383.1 Chronic mastoiditis Meds: carBAMazepine [...] in preservative free NaCl 0.9% 50 mL CHEMICAL PROCESS ANALYST infusion, , Intravenous, CUCO NUOUS ipratropium (aka [...] Aviles MD - 08/21/2012 7:25 AM PST [facility] Department of Surgery Blue Surgery [...] this patient encounter. Long Aviles MD Diagnoses: 278620 Ventral hernia 383.1 Chronic mastoiditis Meds: carBAMazepine [...] in preservative free NaCl 0.9% 50 mL CHEMICAL PROCESS ANALYST infusion, , Intravenous, CUCO NUOUS ipratropium (aka [...] Pinon MD Chief Resident Department of Surgery [facility] Nav Grider MD - 08/20/2012 7:01 AM PST [facility] Department of Surgery Blue Surgery [...] this patient encounter. NAV ALLEN MD Diagnoses: 306418 Ventral hernia 383.1 Chronic mastoiditis Meds: acetaminophen [...] in preservative free NaCl 0.9% 50 mL CHEMICAL PROCESS ANALYST infusion, , Intravenous, CUCO NUOUS ipratropium (aka [...] adhesions 3. Recurrent incisional hernia repair with 91w22le Strattice mesh 4. Primary repair of parastomal [...] + + | 04/29/ | Diagnostic | Automatic Clipper | Marce Meyer | | | 2019 | Visit | | Finn, Eve [address] [facility] | | | | | | [facility] | | | | | | [place], [place] | | | | | | [address] | | +--------+ + + + + [...] + + + | IP CONSULT TO [facility] | Routin | 08/21/2012 | | Results [...] | | + +---------+ + + | [facility] DEPARTMENT OF | | | | | RADIOLOGY | | | | + +---------+ + + OPERATION RECORD (08/22/2012 8:43 AM PST) + + | Transcriptions | + + | Ayana Butler MD - 08/22/2012 5:22 AM PST | | Date: 08/19/2012 | | | | Attending Surgeon: Ayana Butler MD | | | | Supervisor Cd Area(s): Marcos Aviles MD | | | | [...] | | | Drains: | | A 19-Maltese round Oscar drain in subcutaneous tissues above [...] running number 1 Surgipro. | | A 19-Maltese round Oscar drain was placed above the [...] | | EWG / HS | | [id number] / [id number] / [id number] / | | | | | + [...] | + + + + + | [facility] | [address] | [place] [address] | | | SERVICES, CORE | VASQUEZ [...] [facility] | [address] | [place] [address] | | | SERVICES, CORE | PARK [...] + +---------+ + + IP CONSULT TO [facility] TEAM (08/21/2012 10:58 AM PST) + + + | Narrative | Performed At | + + + | [facility] 08/21/2012 10:58 AM PICC INSERTION DOCUMENTATION | | | NOTE Today | | | | | | s Date: 08/21/2012 Start Time: 1030 Patient Location (Unit/Room | | | #): 14A 48 Diagnosis: 436842 Ventral hernia 383.1 Chronic | | | [...] IVT Assisted by: | | | Luanne oRjas RN IVT PICC Team | | + + + + + | Procedure Note | + + | David Fisher RN - 08/21/2012 10:56 AM PST Formatting of this note might be different | | from the original.PICC INSERTION DOCUMENTATION NOTEToday | | | | s Date: 08/21/2012Start Time: 1030Patient Location (Unit/Room #): 14A rm 48Diagnosis: | | 818520 Ventral xweaxo514.1 Chronic mastoiditisIndications: (Select all that apply) | [...] CATHETERProduct Name: PowerPICCConstruction: | | Double5 Fr55cm [id number] TrimmedLot # (or Sticker): INSERTION SITE: - [...] [facility] | [address] | [place] [address] | | | SERVICES, CORE | PARK [...] + + | [facility] | [address] | [place] [address] | | | SERVICES, CORE | PARK [...] | + + + + + | [facility] | [address] | [place] [address] | | | SERVICES, CORE | VASQUEZ [...] | + + + + + | [facility] | [address] | [place] [address] | | | SERVICES, CORE | PARK [...] [facility] | [address] | [place] [address] | | | SERVICES, CORE | PARK [...] | + + + + + | [facility] | [address] | [place] [address] | | | SERVICES, CORE | VASQUEZ [...] [facility] | [address] | [place], [place] | | | [facility]ARE | [address] | [address] | | | TESTS | | | [...] [facility] | [address] | [place], [place] | | | [facility] | [address] | [address] | | | TESTS | | | [...]
--- OUTSIDE RECORDS SUMMARY | ~2019-04-25 | XMS | Encounter Summary ---
Demographics + + + | Address | [address] | | | [place] [address] | + + + | Home Phone [...] [place] | | | | | [address] | | + + + + + Care Team Providers + +------+ + | Care Distribution Specialist Name | Role | Phone | [...] Only | Department | [place] [address] [facility] | | | | | | [address] [place] [address] | | | | | | [address] | | | | | | | [...] + + | 04/29/ | Diagnostic | Plant Control Aide | Marce Meyer | | | 2019 | Visit | | Finn, Eve [address] | | | | | | [address] | | | | | | [place], [place] | | | | | | [address] | | +--------+ + + + + documented as of this encounter Procedures + +--------+ + + + | Procedure Name | Priori | Date/Time | Associated Diagnosis | Comments | | | ty | | | | + +--------+ + + + | ABDOMINAL ULTRASOUND | Routin | 01/19/2008 | | Results for this | | [id number] | e | 8:38 AM | | procedure are in the | | | | PDT | | results section. | + +--------+ + + + documented in this encounter Results ABDOMINAL ULTRASOUND [id number] (01/19/2008 8:38 AM PDT) + + | [...] No focal hepatic mass. 2. Mild splenomegaly. [id number] | | + + + + + [...] | | 2. Mild splenomegaly. | | [id number] | + + + +---------+ + + [...]
--- OUTSIDE RECORDS SUMMARY | ~2019-04-25 | XMS | Encounter Summary ---
Demographics + + + | Address | [address] | | | [place] [address] | + + + | Home Phone [...] [place] | | | | | [address] | | + + + + + Care Team Providers + +------+ + | Care Dishwasher Preparer Name | Role | Phone | + [...] + | 04/29/ | Diagnostic | Health Unit Clerk | Marce Meyer | | | 2019 | Visit | | Eve Briseno [address] | | | | | | [address] | | | | | | [place], [place] | | | | | | [address] | | +--------+ + + + + [...] | FASTING? | UNK | HR | [facility] | | | | | [facility] [...] + + + + | [facility] | And | [place] [address] | | | MEDICAL CENTER | Streets [...] 7.5 | 4.3 - 11.0 X10 | [facility] | | | CELL COUNT | | 3/ul | A MEDICAL | | | | | | CENTER | | + + + + + + | WBC, | SAP BASIS | X10 3/uL | [facility] | | [...] + + + | BANDS % | SAP BASIS | 0 - 7 % | [facility] [...] + + + + | REACTIVE | SAP BASIS | 0.0 - 4.0 % | [facility] [...] + + + + | METAMYELOCY | SAP BASIS | 0 - 0 % | [facility] | | | BRANDON % | | | A MEDICAL | | | | | | CENTER | | + + + + + + | MYELOCYTES | SAP BASIS | 0 - 0 % | [facility] | | | % | | | A MEDICAL | | | | | | CENTER | | + + + + + + | PROMYELOCYT | SAP BASIS | 0 - 0 % | [facility] | | | ES % | | | A MEDICAL | | | | | | CENTER | | + + + + + + | BLASTS | SAP BASIS | 0 - 0 % | [facility] [...] + + + + | NUCLEATED | SAP BASIS | | [facility] | | | RBCS | | | A MEDICAL | | | | | | CENTER | | + + + + + + | GIANT PLT | SAP BASIS | | [facility] | | | | [...] | [address] | [place] [address] | | | MEDICAL CENTER | Streets | | | + + + + + documented in this encounter Visit Diagnoses Not on filedocumented in this encounter"
--- OUTSIDE RECORDS SUMMARY | ~2019-04-25 | XMS | Encounter Summary ---
Demographics + + + | Address | [address] | | | [place] [address] | + + + | Home Phone [...] [place] | | | | | [address] | | + + + + + Care Team Providers + +------+ + | Care Clinical Research Specialist Name | Role | Phone | [...] + + + | Closed | | Improvement Leader | | Ciaran, | Ent | | | | | | Ender Perdomo, | Cochlear Ppv | | | | | | MD | [address] | | | | | | [place] | [address] | | | | | | [facility] | Rd Mailcode: | | | | | | CLINIC [address] | [address] | | | | | | [address] | Physician's | | | | | | [place], | Chris | | | | | | [place] [address] | [place], [place] | | | | | | Phone: | [phone] | | | | | | [phone] | Phone: | | | | | | Fax: | [phone] | | | | | | [phone] | Fax: | | | | | | | [phone] | +--------+--------+ + + + + Encounter [...] | | [address] | Rd [place], [place] | Dx) | | | | Mailcode: [address] | [address] | | | | | [facility] | | | | | | [place], [place] | | | | | | [address] | | | | | | [phone] | | | +--------+---------+ + + + [...] Melodie Herbert M.A., YULIA-A Clinical & Rehabilitative Improvement Leader [facility] Cochlear Implant Program Department of Otolaryngology/Head & Neck Surgery documented in t his encounter Plan of Treatment +--------+ + + + + | Date | Type | Specialty | Care Team | Description | +--------+ + + + + | 04/29/ | Diagnostic | Improvement Leader | Marce Meyer | | | 2019 | Visit | | Eve Briseno [address] [facility] | | | | | | [address] | | | | | | [place], [place] | | | | | | [address] | | +--------+ + + + + documented as of this encounter Procedures + +--------+ + + + | Procedure Name | Priori | Date/Time | Associated Diagnosis | Comments | | | ty | | | | + +--------+ + + + | CO UNLISTED | Routin | 04/27/2012 | Sensorineural [...]
--- OUTSIDE RECORDS SUMMARY | ~2019-04-25 | XMS | Encounter Summary ---
Demographics + + + | Address | [address] | | | [place] [address] | + + + | Home Phone [...] Author + + + | Author | [facility] | + + + | Organization | [facility] | + + [...] [place] | | | | | [address] | | + + + + + Care Team Providers + +------+ + | Care Church Worker Name | Role | Phone | [...] [place] | | | | | [address] | [address] | | | | | | [phone] | | | | | | | [...] Notes Sage Brantley - 06/19/2008 12:06 PM [facility] SLEEP STUDIES LABORATORY REPORT [address] [place] [address] OVERNIGHT POLYSOMNOGRAM DATE OF SERVICE: 06/07/2008 REFERRING PHYSICIAN: Marion Rees REASON FOR EVALUATION: The patient has a history of obstructive sleep apnea. He underwent evaluation at the [facility] and was found to have moderate obstructive [...] a long sleep onset latency of an eavi-glr-k-half and very little sleep seen after 4 [...] results of the patient's clinical case. PC/MedQ /[id number] KISHOR VIVAR [id number] ADMIT DATE: cc: Marion Rees Electronically Signed MD CB Lam KEVIN R [id number] ADMIT DATE: documented in th is encounter Plan of Treatment +--------+ + + + + | Date | Type | Specialty | Care Team | Description | +--------+ + + + + | 04/29/ | Diagnostic | Insert Molding Operator | Marce Meyer | | | 2019 | Visit | | Eve Briseno [address] | | | | | | [address] | | | | | | [place] | | | | | | [address] | | +--------+ + + + + documented as of this encounter Visit Diagnoses Not on filedocumented in this encounter"
--- OUTSIDE RECORDS SUMMARY | ~2019-04-25 | XMS | Encounter Summary ---
Demographics + + + | Address | [address] | | | [place] [address] | + + + | Home Phone [...] [place] | | | | | [address] | | + + + + + Care Team Providers + +------+ + | Care Naval Inspector Name | Role | Phone | [...] | | | [address] | [place], [place] | sequelae; | | | | Mailcode: [address] | [address] | Cholesteatoma of | | | | [facility] | [phone] | middle ear and | | | | [place], [place] | | mastoid(385.33); | | | | [address] | | Cochlear implant in | | | | [phone] | | place | +--------+---------+ + + [...] Plunkett on Thursday You can reach the conductor orchestra doctor at any time by calling our number Electronic ally signed by Solange Stallworth PA-C at 01/11/2014 5:20 PM PDT documented in this encounter Progress Notes Solange Stallworth PA-C - 01/11/2014 4:19 PM PDT NEUROTOLOGY CLINIC FOLLOW-UP NOTE Chief Complaint Patient presents with Postoperative Check Right revision canal wall down mastoidectomy 12/22/13 SUBJECTIVE:Edgra Marquez is a 48 y.o. male here [...] once daily. magnesium hydroxide (KOCH MILK OF Saberr) 400 mg/5 mL Oral Suspension Take 30 [...] + + | 04/29/ | Diagnostic | Ceramic Plater | Marce Meyer | | | 2018 | Visit | | Eve Briseno [address] [facility] | | | | | | [address] | | | | | | [place], [place] | | | | | | [address] | | +--------+ + + + + [...]
--- OUTSIDE RECORDS SUMMARY | ~2019-04-25 | XMS | Encounter Summary ---
Demographics + + + | Address | [address] | | | [place] [address] | + + + | Home Phone [...] [place] | | | | | [address] | | + + + + + Care Team Providers + +------+ + | Care Director Mba Name | Role | Phone | + [...] | | | | [address] | [address] | | | | | [place] | | | | | | [place] [address] | | | | | | [phone] | | | +--------+ + + + [...] | 04/29/ | Diagnostic | Household Appliance Assembler | Marce Meyer | | | 2019 | Visit | | Eve Briseno [address] [facility] | | | | | | [address] | | | | | | [place] | | | | | | [address] | | +--------+ + + + + documented as of this encounter Visit Diagnoses Not on filedocumented in this encounter"
--- OUTSIDE RECORDS SUMMARY | ~2019-04-25 | XMS | Encounter Summary ---
Demographics + + + | Address | [address] | | | [place] [address] | + + + | Home Phone [...] [place] | | | | | [address] | | + + + + + Care Team Providers + +------+ + | Care Ammunition Storage Superintendent Name | Role | Phone | [...] | | | | | | [place], | | | | | | | [place] | | | | | | | [address] | +--------+--------+ + + + + Encounter [...] [address] | | | | | | [place], [place] | | | | | | [address] | | | | | | [phone] | | | +--------+---------+ + + + [...] you are not already signed up for [facility] there is information at the end of this After Visit Summary to help you get started . [facility] is a great way to contact me [...] contact him to schedule. Willie Plunkett MD Special Agent Fbi Otology, Neurotology & Skull Base Surgery documented in this en counter Plan of Treatment +--------+ + + + + | Date | Type | Specialty | Care Team | Description | +--------+ + + + + | 04/29/ | Diagnostic | Master Fisher | Marce Meyer | | | 2019 | Visit | | Eve Briseno [address] [facility] | | | | | | [address] | | | | | | [place] | | | | | | [address] | | +--------+ + + + + documented as of this encounter Visit Diagnoses + + | Diagnosis | + + | Chronic mastoiditis - Primary | + + documented in this encounter"
--- OUTSIDE RECORDS SUMMARY | ~2019-04-25 | XMS | Encounter Summary ---
Demographics + + + | Address | [address] | | | [place] [address] | + + + | Home Phone [...] [place] | | | | | [address] | | + + + + + Care Team Providers + +------+ + | Care Other Sports Official Name | Role | Phone | + [...] as of this encounter Progress Notes Interface, Clerk Checker In - 02/23/2005 11:20 AM PDT [id number] [facility] Date: 11/22/2004 Clinic: DEPARTMENT [...] the frequency range were as follows: [phone] 0579 2000 3000 4000 6000 30 30 30 [...] as soon as possible. Haroon Poe Ed.D. Acid Crane Operator DP / HS [id number] / [id number] / [id number] / [id number] Electronically signed by Haroon Poe 12-03-2004 02:24:37 PM documented i n this encounter Plan of Treatment +--------+ + + + + | Date | Type | Specialty | Care Team | Description | +--------+ + + + + | 04/29/ | Diagnostic | Building Construction Contractor | Marce Meyer | | | 2018 | Visit | | Eve Briseno [address] | | | | | | [address] | | | | | | [place], [place] | | | | | | [address] | | +--------+ + + + + documented as of this encounter Visit Diagnoses Not on filedocumented in this encounter"
--- OUTSIDE RECORDS SUMMARY | ~2019-04-25 | XMS | Encounter Summary ---
Demographics + + + | Address | [address] | | | [place] [address] | + + + | Home Phone [...] [place] | | | | | [address] | | + + + + + Care Team Providers + +------+ + | Care Casing Puller Name | Role | Phone | + [...] | | | | | [place], | | | | | | [place] [address] | | | +--------+ + + + [...] + + | 04/29/ | Diagnostic | Parachute Crown Sewer | Marce Meyer | | | 2018 | Visit | | Eve Briseno [address] | | | | | | [address] | | | | | | [place], [place] | | | | | | [address] | | +--------+ + + + + documented as of this encounter Visit Diagnoses Not on filedocumented in this encounter"
--- OUTSIDE RECORDS SUMMARY | ~2019-04-25 | XMS | Encounter Summary ---
Demographics + + + | Address | [address] | | | [place] [address] | + + + | Home Phone [...] [place] | | | | | [address] | | + + + + + Care Team Providers + +------+ + | Care Drain Tile Press Operator Name | Role | Phone [...] as of this encounter Progress Notes Interface, Eyeglass Fitter In - 04/06/2006 3:04 AM PDTCLINIC DATE: [...] that time, he was incarcerated in the [facility]. He reports that he previously not [...] multiple arrests, and once incarceration at the [facility]. Tobacco: One and a half packs per day for 27years. Alcohol: Not currently using. History of intravenous drug abuse for 10 years, quit in 1997. The patient is not working. He has STS and is currently awaiting SSD. He states has had 6 denials but has been accepted. 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 Coordination: Normal pqnwny-ht-lcmf, normal fine motor and rapid alternating movements in the upper extremities. Gfgd-xkbh-seqo testing, the patient unable due to pain. [...] essentially unremarkable. 6. EMG nerve conduction study, [facility], October 20, 2001 - final report unavailable; [...] and the plan formed with Dr. Vera, [facility] Neuromuscular Service. Lorenzo Burnham M.D., C.M. / [id number] / [id number] / [id number] / cc: Jacquelin Vera M.D. Neurology, [facility] Jose Antonio Nance M.D. [address] [place] [address] Devaughn Arboleda M.D. [address] [place] [address] [address] [place] [address] [id number] signed by Interface, Eyeglass Fitter In at 04/06/2006 3:04 AM [facility] in this encounter Plan of Treatment +--------+ + + + + | Date | Type | Specialty | Care Team | Description | +--------+ + + + + | 04/29/ | Diagnostic | Varnishing Machine Operator | Marce Meyer | | | 2018 | Visit | | Eve Briseno [address] | | | | | | [address] | | | | | | [place], [place] | | | | | | [address] | | +--------+ + + + + documented as of this encounter Visit Diagnoses Not on filedocumented in this encounter
--- OUTSIDE RECORDS SUMMARY | ~2019-04-25 | XMS | Encounter Summary ---
Demographics + + + | Address | [address] | | | [place] [address] | + + + | Home Phone [...] [place] | | | | | [address] | | + + + + + Care Team Providers + +------+ + | Care Sinker Puller Name | Role | Phone | + +------+ + | Maurice Zelaya MD | PCP | | + +------+ + Encounter Details +--------+ + + + + | Date | Type | Department | Care Team | Description | +--------+ + + + + | 07/23/ | Document-Sc | Health Information | Unknown . | | | 2015 | anned | Services [address] | | | | | | [address] | | | | | | Mailcode: OP17A | | | | | | [facility] | | | | | | [place], [place] | | | | | | [address] | | | | | | [phone] | | | +--------+ + + + [...] + + | 04/29/ | Diagnostic | Bell Ringer | Marce Meyer | | | 2018 | Visit | | Eve Briseno [address] | | | | | | [address] | | | | | | [place], [place] | | | | | | [address] | | +--------+ + + + + documented as of this encounter Visit Diagnoses Not on filedocumented in this encounter"
--- OUTSIDE RECORDS SUMMARY | ~2019-04-25 | XMS | Encounter Summary ---
Demographics + + + | Address | [address] | | | [place] [address] | + + + | Home Phone [...] | Margarito Owusu | ECON | [address] [facility] | | | | | [place] | | | | | [address] | | + + + + + Care Team Providers + +------+ + | Care Wafer Fab Technician Name | Role | Phone | [...] as of this encounter Progress Notes Interface, Mounter Smoking Pipe In - 02/23/2005 7:49 AM PDT [id number] [facility] Date: 04/08/2004 Clinic: Edgar [...] implant. Aamir Chan M.D. TONY / MALORIE [id number] / [id number] / [id number] / [id number] documented i n this encounter Plan of Treatment +--------+ + + + + | Date | Type | Specialty | Care Team | Description | +--------+ + + + + | 04/29/ | Diagnostic | Geospatial Technologist | Marce Meyer | | | 2019 | Visit | | Eve Briseno [address] [facility] | | | | | | [address] | | | | | | [facility] | | | | | | [address] | | +--------+ + + + + documented as of this encounter Visit Diagnoses Not on filedocumented in this encounter"
[~2019-04-25 08:25] MED LIST changes: +METHYLPREDNISOLO4 M1 PO; +ZITHROMAX250 MG PO
[2019-04-25] MEDS ORDERED: CARBIDOPA-LEVO1 EAC9 PO (08:41)
[2019-04-25] MEDS ORDERED: PREDNISONE20 MG PO (12:15)
[2019-04-25] MEDS ORDERED: ERYTHROMYCIN1 GM OP (12:15)
== END 2019-04-25 12:28 | disposition home or self-care (01) ==
LOC: ED 08:25
DX: G51.0 Bell's palsy (principal); J44.9 Chronic obstructive pulmonary disease, unspecified; E03.9 Hypothyroidism, unspecified; K21.9 Gastro-esophageal reflux disease without esophagitis; E11.9 Type 2 diabetes mellitus without complications; G40.909 Epilepsy, unspecified, not intractable, without status epilepticus; I10 Essential (primary) hypertension; Z87.891 Personal history of nicotine dependence; Z88.0 Allergy status to penicillin; Z88.5 Allergy status to narcotic agent; Z79.899 Other long term (current) drug therapy; Z79.4 Long term (current) use of insulin
CPT/HCPCS: 70470; 70480; 80053; 81001; 83605; 83735; 85025; 99285-25; J7512; Q9967

== ENCOUNTER 2020-09-25 12:46 | Emergency (ER) | payer OTHER ==
[~2020-09-25] VITALS: Ht 185.4 cm; Wt 111.1 kg
[~2020-09-25 12:46] MED LIST changes: +CARBIDOPA-LEVO1 EAC9 PO; +ERYTHROMYCIN1 GM OP; +PREDNISONE20 MG PO
--- OUTSIDE RECORDS SUMMARY | 2020-09-25 12:52 | XMS ---
PreManage Notification: KISHOR VIVAR Security Program Director/Morning Show Host Events No recent Security Events currently on file CRITERIA MET - [facility] Care Guidelines CARE PROVIDERS Luda Jeffrey Electrical Logging Operator/Paint Spraying Machine Operator Helper 08/27/2020-Current PHONE: [phone] [facility] Current PHONE: [phone] Guidelines Source: [facility] Guidelines Date: 05/02/2019 Care Coordination: Mental health services provided by [employer].\T\nbsp; Please contact [employer] with mental health concerns.\T\nbsp; [facility]: [phone]\T\ nbsp; [place]: [phone]. E.D. VISIT COUNT (12 MO.) 1 FLORES Vogt TOTAL 1 NOTE: Visits indicate total known visits. ED/UCC VISIT TRACKING (12 MO.) 09/25/2020 12:47 [place] TYPE: Emergency COMPLAINT: - PROBLEM WITH EYES INPATIENT VISIT TRACKING (12 MO.) No inpatient visits to display in this time frame [email or web address]
[2020-09-25] MEDS ORDERED: FINASTERIDE5 MG PO (15:04)
[2020-09-25] MEDS ORDERED: TRIHEXYPHENIDYL2 MG PO (15:04)
[2020-09-25] MEDS ORDERED: VICTOZA 2-0.6 MG/0.1 SUB-Q (15:05)
== END 2020-09-25 17:22 | disposition home or self-care (01) ==
LOC: ED 12:46
DX: I63.9 Cerebral infarction, unspecified (principal); H53.8 Other visual disturbances; H53.47 Heteronymous bilateral field defects; J44.9 Chronic obstructive pulmonary disease, unspecified; E03.9 Hypothyroidism, unspecified; K21.9 Gastro-esophageal reflux disease without esophagitis; E11.40 Type 2 diabetes mellitus with diabetic neuropathy, unspecified; J45.909 Unspecified asthma, uncomplicated; I10 Essential (primary) hypertension; Z87.891 Personal history of nicotine dependence; Z88.0 Allergy status to penicillin; Z88.5 Allergy status to narcotic agent; Z79.899 Other long term (current) drug therapy; Z79.84 Long term (current) use of oral hypoglycemic drugs
CPT/HCPCS: 70450; 70496; 70498; 80053; 83735; 84484; 85025; 99284-25; J0780; J1200; J3475; Q9967